=== PATIENT | female | born 1970 | race Caucasian/White ===

== ENCOUNTER 2023-04-18 08:59 | Emergency (ER) | payer OTHER, SELFPAY ==
[2023-04-18 09:14] VITALS: BP 165/95; PULSE 81; RESP 18; TEMP 37; O2SAT 97; BMI 35.7
--- NOTE | 2023-04-18 09:36 | ED_ITS ---
HPI - General Adult General Chief complaint: Extremity Injury, Lower Stated complaint: GOUT RT FOOT Time Seen by Provider: 04/18/23 09:36 Source: patient Mode of arrival: walk-in Limitations: no limitations History of Present Illness HPI narrative: Patient is coming to the ER with a right foot pain that started over the last few days as she mentioned that she have a history of gout denying any trauma or fall Related Data Home Medications Medication Instructions Recorded Confirmed albuterol sulfate 90 mcg/actuation 2 puff inhalation Q4H PRN wheezing 04/18/23 04/18/23 aerosol inhaler (Ventolin HFA) apixaban 5 mg tablet (Eliquis) 5 mg PO BID 04/18/23 04/18/23 celecoxib 200 mg capsule 200 mg PO Q24H 04/18/23 04/18/23 diltiazem HCl 240 mg 240 mg PO Q24H 04/18/23 04/18/23 capsule,extended release 24 hr dulaglutide 0.75 mg/0.5 mL 0.75 mg subcut .weekly 04/18/23 04/18/23 subcutaneous pen injector (Trulicity) ezetimibe 10 mg tablet 10 mg PO DAILY 04/18/23 04/18/23 ferrous sulfate 325 mg (65 mg 325 mg PO BID 04/18/23 04/18/23 iron) tablet fluticasone furoate 100 1 inh inhalation Q24H 04/18/23 04/18/23 mcg-vilanterol 25 mcg/dose inhalation powder (Breo Ellipta) furosemide 40 mg tablet 40 mg PO DAILY 04/18/23 04/18/23 isosorbide mononitrate 30 mg 30 mg PO DAILY 04/18/23 04/18/23 tablet,extended release 24 hr metformin 500 mg tablet 500 mg PO DAILY 04/18/23 04/18/23 pantoprazole 40 mg tablet,delayed 40 mg PO DAILY 04/18/23 04/18/23 release potassium chloride 20 mEq 20 meq PO BID 04/18/23 04/18/23 tablet,extended release rosuvastatin 5 mg tablet 5 mg PO DAILY 04/18/23 04/18/23 Previous Rx's Medication Instructions Recorded acetaminophen 325 mg capsule 650 mg PO .q8 PRN pain #20 caps 04/18/23 (Tylenol) prednisone 20 mg tablet 40 mg PO DAILY 3 days #6 tabs 04/18/23 Allergies Allergy/AdvReac Type Severity Reaction Status Date / Time morphine Allergy Intermediate Verified 04/18/23 09:21 Review of Systems ROS Status of ROS 10 or more systems reviewed and unremarkable except as noted in history and below [facility] Social History Smoking status: Former smoker Exam Narrative Exam Narrative: Nurses notes and vital signs reviewed and patient is not hypoxic. General: Well-appearing and in no apparent distress. Skin: Warm, dry, no pallor noted. No rash. Head: Normocephalic, atraumatic. Neck: Supple, non-tender. Eye: Pupils are equal, round and EOMI. No scleral icterus. Ears, Nose, Mouth, and Throat: TM are clear, no nasal mucosal hypertrophy. Oral mucosa is moist, no posterior oropharynx erythema, uvula is mid-line Cardiovascular: Regular Rate and Rhythm without murmur, gallop or rub. Respiratory: No accessory muscle use or respiratory distress. Lungs are clear to auscultation, no wheezing, rales or rhonchi Chest Wall: no tenderness Back: No midline thoracic or lumbar vertebral tenderness. No CVA tenderness Musculoskeletal: patient has tenderness upon palpation of the first metatarsophalangeal joint with mild swelling no redness no hotness no signs of infection GI: Abdomen is soft, non-distended. Normal bowel sounds. No masses appreciated. No tenderness to palpation. No rebound, guarding, or rigidity noted. Neurological: A&O x4. No cranial nerve dysfunction observed. No truncal ataxia. Moves all extremities. Sensation intact. Psychiatric: Cooperative and interactive. Normal mood and affect. Constitutional Vital Signs, click to edit/add: Last Vital Signs Temp 98.6 F 04/18/23 09:14 Pulse 76 04/18/23 09:48 Resp 16 04/18/23 09:48 BP 143/96 H 04/18/23 09:48 Pulse Ox 98 04/18/23 09:48 O2 Del Method Room Air 04/18/23 09:48 Course Vital Signs Vital signs: Vital Signs Temperature 98.6 F 04/18/23 09:14 Pulse Rate 81 04/18/23 09:14 Respiratory Rate 18 04/18/23 09:14 Blood Pressure 165/95 H 04/18/23 09:14 Pulse Oximetry 97 04/18/23 09:14 Oxygen Delivery Method Room Air 04/18/23 09:14 Temperature 98.6 F 04/18/23 09:14 Pulse Rate 76 04/18/23 09:48 Respiratory Rate 16 04/18/23 09:48 Blood Pressure 143/96 H 04/18/23 09:48 Pulse Oximetry 98 04/18/23 09:48 Oxygen Delivery Method Room Air 04/18/23 09:48 Medical Decision Making [facility] Narrative Medical decision making narrative: Presenting with a typical metatarsophalangeal joint first joint arthritis is mostly secondary to gout the patient will be treated in the ER with Toradol discharged home with prednisone and Tylenol The patient is to follow up with primary care physician in next 2-3 days or to return to the emergency department should any of the signs or symptoms worsen or new symptoms develop. The patient agrees with the following Diagnosis and Treatment plan and the patient will be discharged home. Discharge Plan Discharge Chief Complaint: Extremity Injury, Lower Clinical Impression: Gout of foot Patient Disposition: Home, Self-Care Time of Disposition Decision: 09:37 Condition: Good Prescriptions / Home Meds: New prednisone 20 mg tablet 40 mg PO DAILY 3 Days Qty: 6 0RF acetaminophen [Tylenol] 325 mg capsule 650 mg PO .q8 PRN (Reason: pain) Qty: 20 0RF No Action albuterol sulfate [Ventolin HFA] 90 mcg/actuation HFA aerosol inhaler 2 puff INHALATION Q4H PRN (Reason: wheezing) Eliquis 5 mg tablet 5 mg PO BID celecoxib 200 mg capsule 200 mg PO Q24H diltiazem HCl 240 mg capsule,extended release 24hr 240 mg PO Q24H Trulicity 0.75 mg/0.5 mL pen injector 0.75 mg SUBCUT .weekly ezetimibe 10 mg tablet 10 mg PO DAILY ferrous sulfate 325 mg (65 mg iron) tablet 325 mg PO BID fluticasone furoate-vilanterol [Breo Ellipta] 100-25 mcg/dose blister with device 1 inh INHALATION Q24H furosemide 40 mg tablet 40 mg PO DAILY isosorbide mononitrate 30 mg tablet extended release 24 hr 30 mg PO DAILY metformin 500 mg tablet 500 mg PO DAILY pantoprazole 40 mg tablet,delayed release (DR/EC) 40 mg PO DAILY potassium chloride 20 mEq tablet extended release 20 meq PO BID rosuvastatin 5 mg tablet 5 mg PO DAILY Instructions: Gout (ED) Stand Alone Forms: Portal Instructions Referrals: Xavi Ann MD [Primary Care Provider] - 1 week Apolinar Mejia DPM [Physician] - 1 week Discharge Date/Time: 04/18/23 09:50
[2023-04-18] MEDS: KETOROLAC TROMETHAMINE 30 MG/ML VIAL IM (09:45)
[2023-04-18 09:48] VITALS: BP 143/96; PULSE 76; RESP 16; O2SAT 98
== END 2023-04-18 09:50 | disposition home or self-care (01) ==
PROVIDERS: Emergency Provider Emergency Medicine; PCP Family Medicine
DX: M10.9 Gout, unspecified (principal); Z79.899 Other long term (current) drug therapy; Z79.01 Long term (current) use of anticoagulants; Z79.85 Long-term (current) use of injectable non-insulin antidiabetic drugs; Z79.84 Long term (current) use of oral hypoglycemic drugs; Z87.891 Personal history of nicotine dependence
CPT/HCPCS: 96372; 99284

== ENCOUNTER 2023-04-28 22:19 | Emergency (ER) | payer OTHER, SELFPAY ==
[2023-04-28 22:22] VITALS: BP 138/71; PULSE 68; RESP 18; TEMP 36.7; O2SAT 97; BMI 35.7
[2023-04-28 22:25] VITALS: PULSE 69; RESP 9
[2023-04-28 22:27] VITALS: BP 138/71; PULSE 66; RESP 18; O2SAT 96
[2023-04-28 22:30] VITALS: PULSE 68; RESP 16; O2SAT 97
[2023-04-28 22:33] VITALS: PULSE 89; RESP 14
[2023-04-28 22:34] VITALS: PULSE 68
--- NOTE | 2023-04-28 22:34 | CT_ITS ---
The [address] [address] Patient Name: LEIGHANN TALAMANTES MRN: [id number] date: 1970 Sex: F Assigned Patient Location: ER Current Patient Location: ER Accession/Order Number: [id number] Exam Date: 04/28/2023 22:48 Report Date: 04/28/2023 23:08 At the request of: VICENTE MARKER Procedure: CT head/brain wo con EXAM: CT head/brain wo con HISTORY: dizziness COMPARISON: CT brain 08/09/2022 TECHNIQUE: Axial CT scans through the head were obtained without IV contrast administration. Dose reduction techniques were achieved by using: automated exposure control and/or adjustment of mA and /or kV according to patient size and/or use of iterative reconstruction technique. FINDINGS: There is no evidence of acute intracranial hemorrhage or abnormal extra-axial fluid collection. No mass effect or midline shift is seen. There is no evidence of large acute territorial infarction. There is no hydrocephalus. The cortical sulci and ventricular system are within normal limits for age. To the limit of CT, the posterior fossa appears unremarkable. No definite acute fracture is identified. Soft tissues are unremarkable. The visualized orbits show no abnormal mass. The visualized paranasal sinuses show no air-fluid level. Mastoid air cells are clear. CT/CT head/brain wo con IMPRESSION: No CT evidence of acute intracranial abnormality. If there is sufficient clinical concern for acute brain parenchymal pathology, consider MRI for further evaluation. Electronically authenticated by: NAZANIN BROOKS Date: 04/28/2023 23:08
--- NOTE | 2023-04-28 22:36 | ECG_ITS ---
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
--- NOTE | 2023-04-28 22:38 | PC.NURSE ---
Pt presents to ER for dizziness and vertigo type feelings Pt states with movement the room is spinning Pt states she believes her BP is elvated or maybe she has a heart problem Pt states she has a history of a-fib and currently has a loop recorder placed
--- NOTE | 2023-04-28 22:41 | ED.DIZZY1 ---
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 Juan grey for evaluation of dizziness that has been ongoing for the past 3 days. She states at times she feels like she is going to fall. She has a sensation that the room is spinning. Symptoms are worse with any movement of her head or body. She states she has almost fallen several times but has cut herself and has not fallen. She denies any chest pain or shortness of breath. She states she took her blood pressure at home and it was elevated which prompted her to come to the emergency department. She has a mild frontal headache. She has not had a fever. She denies any abdominal pain but does have some mild nausea associated with her dizziness. She states she feels like she felt when she was on a cruise ship and had motion sickness. Related Data Home Medications Medication Instructions Recorded Confirmed albuterol sulfate 90 mcg/actuation 2 puff inhalation Q4H PRN wheezing 04/18/23 04/18/23 aerosol inhaler (Ventolin HFA) apixaban 5 mg tablet (Eliquis) 5 mg PO BID 04/18/23 04/18/23 celecoxib 200 mg capsule 200 mg PO Q24H 04/18/23 04/18/23 diltiazem HCl 240 mg 240 mg PO Q24H 04/18/23 04/18/23 capsule,extended release 24 hr dulaglutide 0.75 mg/0.5 mL 0.75 mg subcut .weekly 04/18/23 04/18/23 [facility] ezetimibe 10 mg tablet 10 mg PO DAILY 04/18/23 04/18/23 ferrous sulfate 325 mg (65 mg 325 mg PO BID 04/18/23 04/18/23 iron) tablet fluticasone furoate 100 1 inh inhalation Q24H 04/18/23 04/18/23 mcg-vilanterol 25 mcg/dose inhalation powder (Breo Ellipta) furosemide 40 mg tablet 40 mg PO DAILY 04/18/23 04/18/23 isosorbide mononitrate 30 mg 30 mg PO DAILY 04/18/23 04/18/23 tablet,extended release 24 hr metformin 500 mg tablet 500 mg PO DAILY 04/18/23 04/18/23 pantoprazole 40 mg tablet,delayed 40 mg PO DAILY 04/18/23 04/18/23 release potassium chloride 20 mEq 20 meq PO BID 04/18/23 04/18/23 tablet,extended release rosuvastatin 5 mg tablet 5 mg PO DAILY 04/18/23 04/18/23 metoprolol succinate 25 mg mg PO 04/28/23 tablet,extended release 24 hr Previous Rx's Medication Instructions Recorded acetaminophen 325 mg capsule 650 mg PO .q8 PRN pain #20 caps 04/18/23 (Tylenol) prednisone 20 mg tablet 40 mg PO DAILY 3 days #6 tabs 04/18/23 Allergies Allergy/AdvReac Type Severity Reaction Status Date / Time morphine Allergy Intermediate Verified 04/18/23 09:21 Review of Systems ROS Status of ROS 10 or more systems reviewed and unremarkable except as noted in history and below [facility] Social History Smoking status: Former smoker Exam Narrative Exam Narrative: Nurses note and vital signs reviewed and patient is not hypoxic. Blood pressure was minimally elevated at 138/71 General: The patient appears well and in no apparent distress. Patient is resting comfortably on cart. Skin: Warm, dry, no pallor noted. There is no rash noted. Head: Normocephalic, atraumatic Eye: Normal conjunctiva, no drainage, EOMI. PERRL, Patient with episode of dizziness with extraocular muscle testing Ears, Nose, Mouth, and Throat: oral mucosa is moist. Nares patent. Mouth without vesicles. edentulous Cardiovascular: Regular Rate and Rhythm S1S2, no murmur, rub or gallop Respiratory: Patient is in no distress, no accessory muscle use, lungs are clear to auscultation, no wheezing, rales or rhonchi Back: non-tender, no CVA tenderness bilaterally to percussion. GI: Normal bowel sounds, no tenderness to palpation, no masses appreciated. No rebound, guarding, or rigidity noted. Musculoskeletal: The patient has no evidence of calf tenderness, no pitting edema, symmetrical pulses noted bilaterally Neurological: A&O x4, normal speech, no facial droop, short filler bunch machine operator strength is intact, negative pronator drift, normal rapid alternating hand movements, upper and lower extremity strength and sensation is intact Psychiatric: Cooperative Constitutional Vital Signs, click to edit/add: Last Vital Signs Temp 98.1 F 04/28/23 22:22 Pulse 89 04/28/23 22:33 Resp 14 04/28/23 22:33 BP 125/68 04/29/23 04:10 Pulse Ox 97 04/28/23 22:30 O2 Del Method Room Air 04/28/23 22:22 Course Vital Signs Vital signs: Vital Signs Temperature 98.1 F 04/28/23 22:22 Pulse Rate 68 04/28/23 22:22 Respiratory Rate 18 04/28/23 22:22 Blood Pressure 138/71 04/28/23 22:22 Pulse Oximetry 97 04/28/23 22:22 Oxygen Delivery Method Room Air 04/28/23 22:22 Temperature 98.1 F 04/28/23 22:22 Pulse Rate 89 04/28/23 22:33 Respiratory Rate 14 04/28/23 22:33 Blood Pressure 125/68 04/29/23 04:10 Pulse Oximetry 97 04/28/23 22:30 Oxygen Delivery Method Room Air 04/28/23 22:22 MDM - Dizziness MDM Narrative Medical decision making narrative: This 52-year-old female with a history of hypertension, DM, heart disease who currently has a loop recorder presents for evaluation of 3 days of dizziness that she describes as room spinning with nausea. She has not fallen but states she has had to hold on several times to keep herself from falling. She has no chest pain or shortness of breath. She has no neurologic symptoms. She had provocative symptoms of vertigo with extraocular muscle testing and when she sat up. The patient states that she feels like she felt when she was on a cruise ship and had motion sickness. Due to her comorbidities a CT scan of her brain was ordered. This was negative.EKG done upon arrival was a normal sinus rhythm at 62 bpm. No acute changes are noted. The patient stated that she had taken her blood pressure at home and it was very high however in the emergency department it was not significantly elevated. An IV was placed and she was medicated with IV fluids, 4 mg of Zofran, 25 mg of meclizine and 5 mg of oral Valium. Routine labs are reviewed. She has a normal white count and hemoglobin. Her electrolytes are normal. Her initial troponin was elevated at 57. Again she denied any chest pain or shortness of breath. Delta troponin at 3 hours was decreased at 50.2, Likely indicating her dizziness is not cardiac in nature. The patient slept for several hours in emergency department and was monitored while asleep. There was no cardiac arrhythmias noted. The patient woke up and was able to nataly to the bathroom twice and the 2nd time stated that she was feeling better and wished to be discharged home. I discussed the results of her labs and CT scan with her. She verbalizes understanding. She will be discharged home with a prescription for meclizine and Zofran. I encouraged her to drink plenty of fluids, rest, use the medications as needed and return to emergency department as needed for ongoing or worsening symptoms. Lab Data Labs: Lab Results 04/28/23 04/29/23 Range/Units 22:30 01:14 WBC 10.1 (4.0-11.0) 10^3/uL RBC 4.59 (4.20-5.40) 10^6/uL Hgb 13.9 (12.0-16.0) g/dL Hct 43.1 (36.0-48.0) % MCV 93.9 (81.0-99.0) fL MCH 30.3 (26.7-34.0) pg MCHC 32.3 (29.9-35.2) g/dL RDW 13.5 (11.0-15.0) % Plt Count 306 (150-450) 10^3/uL MPV 10.3 (9.5-13.5) fL Neut % (Auto) 55.8 (43.0-75.0) % Lymph % (Auto) 34.3 (20.5-60.0) % Davison % (Auto) 8.1 (1.7-12.0) % Eos % (Auto) 0.8 L (0.9-7.0) % Baso % (Auto) 0.5 (0.2-2.0) % Neut # (Auto) 5.7 (1.4-6.5) 10^3/uL Lymph # (Auto) 3.5 (1.2-3.8) 10^3/uL Davison # (Auto) 0.8 (0.3-0.8) 10^3/uL Eos # (Auto) 0.1 (0.0-0.7) 10^3/uL Baso # (Auto) 0.1 (0.0-0.1) 10^3/uL Abs Immat Gran (auto) 0.05 H (0.00-0.03) 10^3/uL Imm/Tot Granulo (auto) 0.5 (0.0-0.5) % Sodium 135 L (136-145) mmol/L Potassium 4.0 (3.5-5.1) mmol/L Chloride 100 (98-107) mmol/L Carbon Dioxide 25.8 (21.0-32.0) mmol/L Anion Gap 13.2 BUN 26.0 H (7.0-18.0) mg/dL Creatinine 0.83 (0.55-1.02) mg/dL Est GFR ( Amer) >60 (>=60) Est GFR (Non-Af Amer) >60 (>=60) BUN/Creatinine Ratio 31.3 Glucose 115 H (74-106) mg/dL Calcium 8.8 (8.5-10.1) mg/dL Total Bilirubin 0.7 (0.2-1.0) mg/dL AST 21 (15-37) U/L ALT 31 (14-59) U/L Alkaline Phosphatase 142 H (46-116) U/L Troponin I High Sens 54.7 H* 50.2 (4.0-51.3) pg/mL Total Protein 7.9 (6.4-8.2) g/dL Albumin 3.7 (3.4-5.0) g/dL Globulin 4.2 g/dL Albumin/Globulin Ratio 0.9 ECG Data Attestation: I personally reviewed and interpreted this ECG as follows: (Sinus rhythm at 62 beats per minutes, normal axis, RSR pattern in lead 3 and aVF, Q wave in V1 and V2 and V3, no acute ST segment elevation or T-wave inversion) Discharge Plan Discharge Chief Complaint: Dizziness Clinical Impression: Benign paroxysmal positional vertigo Patient Disposition: Home, Self-Care Time of Disposition Decision: 04:12 Condition: Good Prescriptions / Home Meds: No Action albuterol sulfate [Ventolin HFA] 90 mcg/actuation HFA aerosol inhaler 2 puff INHALATION Q4H PRN (Reason: wheezing) Eliquis 5 mg tablet 5 mg PO BID celecoxib 200 mg capsule 200 mg PO Q24H diltiazem HCl 240 mg capsule,extended release 24hr 240 mg PO Q24H Trulicity 0.75 mg/0.5 mL pen injector 0.75 mg SUBCUT .weekly ezetimibe 10 mg tablet 10 mg PO DAILY ferrous sulfate 325 mg (65 mg iron) tablet 325 mg PO BID fluticasone furoate-vilanterol [Breo Ellipta] 100-25 mcg/dose blister with device 1 inh INHALATION Q24H furosemide 40 mg tablet 40 mg PO DAILY isosorbide mononitrate 30 mg tablet extended release 24 hr 30 mg PO DAILY metformin 500 mg tablet 500 mg PO DAILY pantoprazole 40 mg tablet,delayed release (DR/EC) 40 mg PO DAILY potassium chloride 20 mEq tablet extended release 20 meq PO BID rosuvastatin 5 mg tablet 5 mg PO DAILY prednisone 20 mg tablet 40 mg PO DAILY 3 Days Qty: 6 0RF acetaminophen [Tylenol] 325 mg capsule 650 mg PO .q8 PRN (Reason: pain) Qty: 20 0RF metoprolol succinate 25 mg tablet extended release 24 hr PO Instructions: Vertigo (ED), Benign Paroxysmal Positional Vertigo (ED), Dizziness (ED) Stand Alone Forms: Portal Instructions Referrals: Xavi Ann MD [Primary Care Provider] - 1 week
[2023-04-28 22:47] LABS: Basophils Absolute Auto 0.1 10^3/uL (0.0-0.1); Basophils Percent Auto 0.5 % (0.2-2.0); Eosinophils Absolute Auto 0.1 10^3/uL (0.0-0.7); Eosinophils Percent Auto 0.8 % (0.9-7.0); Hematocrit 43.1 % (36.0-48.0); Hemoglobin 13.9 g/dL (12.0-16.0); Immature Granulocytes Abs Auto 0.05 10^3/uL (0.00-0.03); Immature Granulocytes Pct Auto 0.5 % (0.0-0.5); Lymphocytes Absolute Auto 3.5 10^3/uL (1.2-3.8); Lymphocytes Percent Auto 34.3 % (20.5-60.0); Mean Corpuscular HGB Conc 32.3 g/dL (29.9-35.2); Mean Corpuscular Hemoglobin 30.3 pg (26.7-34.0); Mean Corpuscular Volume 93.9 fL (81.0-99.0); Mean Platelet Volume 10.3 fL (9.5-13.5); Monocytes Absolute Auto 0.8 10^3/uL (0.3-0.8); Monocytes Percent Auto 8.1 % (1.7-12.0); Neutrophils Absolute Auto 5.7 10^3/uL (1.4-6.5); Neutrophils Percent Auto 55.8 % (43.0-75.0); Platelet Count 306 10^3/uL (150-450); Red Blood Count 4.59 10^6/uL (4.20-5.40); Red Cell Distribution Width 13.5 % (11.0-15.0); White Blood Count 10.1 10^3/uL (4.0-11.0)
[2023-04-28] MEDS: ONDANSETRON PF 4 MG/2 ML VIAL IV (23:05)
[2023-04-28] MEDS: MECLIZINE HCL 12.5 MG TABLET 25 MG PO (23:05)
[2023-04-28] MEDS: 0.9 % SODIUM CHLORIDE 1,000 ML 1000 ML IV (23:05)
[2023-04-28] MEDS: DIAZEPAM 5 MG/ML - 2 ML INJ SYRINGE IV (23:06)
[2023-04-28 23:09] LABS: Alanine Aminotransferase 31 U/L (14-59); Albumin Globulin Ratio 0.9; Albumin Level 3.7 g/dL (3.4-5.0); Alkaline Phosphatase 142 U/L (46-116); Anion Gap 13.2; Aspartate Amino Transferase 21 U/L (15-37); BUN Creatinine Ratio 31.3; Bilirubin Total 0.7 mg/dL (0.2-1.0); Calcium 8.8 mg/dL (8.5-10.1); Carbon Dioxide 25.8 mmol/L (21.0-32.0); Chloride 100 mmol/L (98-107); Estimated GFR (African America >60 (>=60); Estimated GFR (Non-African Ame >60 (>=60); Globulin 4.2 g/dL; Glucose 115 mg/dL (74-106); Sodium 135 mmol/L (136-145); Total Protein 7.9 g/dL (6.4-8.2)
[2023-04-28 23:10] LABS: Troponin I High Sensitivity 54.7 pg/mL (4.0-51.3)
[2023-04-29] MEDS: 0.9 % SODIUM CHLORIDE 1,000 ML 125 ML IV (01:17)
[2023-04-29] MEDS: KETOROLAC TROMETHAMINE 30 MG/ML VIAL 15 MG IVP (01:17)
[2023-04-29 01:36] LABS: Troponin I High Sensitivity 50.2 pg/mL (4.0-51.3)
[2023-04-29 04:10] VITALS: BP 125/68
== END 2023-04-29 04:27 | disposition home or self-care (01) ==
PROVIDERS: Emergency Provider Emergency Medicine; PCP Family Medicine
DX: H81.10 Benign paroxysmal vertigo, unspecified ear (principal); I11.9 Hypertensive heart disease without heart failure; E11.9 Type 2 diabetes mellitus without complications; Z79.899 Other long term (current) drug therapy; Z79.01 Long term (current) use of anticoagulants; Z79.85 Long-term (current) use of injectable non-insulin antidiabetic drugs; Z79.84 Long term (current) use of oral hypoglycemic drugs; Z87.891 Personal history of nicotine dependence
CPT/HCPCS: 36415; 70450; 80053; 84484; 85025; 93005; 96361; 96374; 96375; 99285

== ENCOUNTER 2023-05-05 08:17 | Outpatient (OUT) | payer OTHER, SELFPAY ==
[2023-05-05 08:59] LABS: Chol HDL Ratio 4.9; Cholesterol 204 mg/dL (<=200); HDL Cholesterol 42 mg/dL (40-60); Triglycerides 357 mg/dL (<=150); VLDL CHOLESTEROL 71.4 mg/dL
== END 2023-05-05 08:18 | disposition home or self-care (01) ==
LOC: LAB 08:19
PROVIDERS: PCP Family Medicine; Visit Provider Nurse Practitioner
DX: E78.2 Mixed hyperlipidemia (principal)
CPT/HCPCS: 36415; 80061

== ENCOUNTER 2023-08-12 12:00 | Outpatient (REF) | payer OTHER, SELFPAY ==
--- OUTSIDE RECORDS SUMMARY | 2023-08-12 12:04 | XMS_ITS | CCD ---
Author Name Unknown Address [address] [place] [address] Organization [facility] Care Team Providers Care Agriculture Professor Name Role Phone CASSY BEAR Admitting Unavailable CASSY BEAR Attending Unavailable PHILLIP ANN Referring Unavailable PHILLIP ANN Primary Care Unavailable PHILLIP ANN Referring Unavailable XIAO TORRES Surgeon Unavailable ORLIN HUI Attending Unavailable CALLI PAIGE Admitting Unavailable RI Procedure Practitioner Unavailab PHILLIP Muñoz Primary Care Unavailable RI Procedure Practitioner Unavailab Dunia Light Surgeon Unavailabl e Phillip Ann Primary Care Physician Juan Miguel SALINAS Attending Unavailable Phillip nAn Referring Unavailable Juan Miguel SALINAS Attending Unavailable Phillip Ann Referring Unavailable SETH ., DR FISHER Primary Care Unavailable HOY ., DR FISHER Consulting Unavailable HOY ., DR FISHER Admitting Unavailable HOY ., DR FISHER Attending Unavailable HOY ., DR FISHER Attending Unavailable HOY ., DR FISHER Primary Care Unavailable HOY ., DR FISHER Consulting Unavailable HOY ., DR FISHER Admitting Unavailable HOY ., DR FISHER Primary Care Unavailable DIANA ANDINO Consulting Unavailable DIANA ANDINO Admitting Unavailable DIANA ANDINO Attending Unavailable ALANY ., DR FISHER Primary Care Unavailable DIANA ANDINO Consulting Unavailable DIANA ANDINO Attending Unavailable DIANA ANDINO Admitting Unavailable HOY ., DR FISHER Primary Care Unavailable HOY ., DR FISHER Consulting Unavailable HOY ., DR FISHER Admitting Unavailable HOY ., DR FISHER Attending Unavailable HOY ., DR FISHER Primary Care Unavailable NILL ., DR PATRICK Consulting Unavailable NILL ., DR PATRICK Attending Unavailable NILL ., DR PATRICK Admitting Unavailable DIAB ., FABRICIO Attending Unavailable HOY ., DR FISHER Primary Care Unavailable FALVO, HELLEN Consulting Unavailable DIAB ., FABRICIO Admitting Unavailable J LUIS, MARY Consulting Unavailable DIAB ., FABRICIO Consulting Unavailable HOY ., DR FISHER Primary Care Unavailable PAY ., DR SOTO Attending Unavailable GRECHNY ., DELANEY MONTERO Consulting Unavailabl e PAY ., DR SOTO Admitting Unavailable GAIL PELLETIER Consulting Unavailable TREVNI ., EMILY Attending Unavailable TREVIN ., EMILY Admitting Unavailable HOY ., DR FISHER Primary Care Unavailable TREVIN ., EMILY Consulting Unavailable AUDREY BO Consulting Unavailable HOY ., DR FISHER Attending Unavailable HOY ., DR FISHER Primary Care Unavailable HOY ., DR FISHER Consulting Unavailable HOY ., DR FISHER Admitting Unavailable ZIEBER, DR JEAN Ortiz Consulting Unavailable HOY ., DR FISHER Attending Unavailable HOY ., DR FISHER Primary Care Unavailable HOY ., DR FISHER Consulting Unavailable HOY ., DR FISHER Admitting Unavailable HOY ., DR FISHER Attending Unavailable HOY ., DR FISHER Primary Care Unavailable HOY ., DR FISHER Consulting Unavailable HOY ., DR FISHER Admitting Unavailable ZIEBER, DR JEAN Ortiz Consulting Unavailable HOY ., DR FISHER Attending Unavailable HOY ., DR FISHER Primary Care Unavailable HOY ., DR FISHER Consulting Unavailable HOY ., DR FISHER Admitting Unavailable WEST, DR VIVI Wyman Consulting Unavailable STACY VILLALTA Attending Unavailable STACY VILLALTA Attending Unavailable CURTIS MARTINEZ Attending Unavailable CURTIS MARTINEZ Referring Unavailable CURTIS MARTINEZ Referring Unavailable Allergies Allergy Classification Reported Allergen(s) Allergy Type Date of Onset Reaction(s) Facility (4 sources) Morphine; Translations: [morphine] Drug Allergy 9 [facility] Repository (1 source) 85704,00; Translations: [26579,00] Propensity to adverse reactions (disorder) 0 [facility] Rep[facility] (1 source) Morphine; Translations: [morphine] Drug Allergy Feeling nervous (finding), Tachycardia (finding) [facility] (1 source) No Known Medication Allergies; Translations: [No Known Medication Allergies] Propensity to adverse reactions (disorder) [facility] Repository (1 source) dulaglutide; Translations: [DULAGLUTIDE] Drug Allergy 3 [facility] Repository Medications Current Medications Medication Drug Class(es) Dates Sig (Normalized) Sig (Original) [id number] 200 actuat albuterol 0.09 mg/actuat metered dose inhaler (2 sources) beta2-Adrenergic Agonist Start: 08-19-2021 take 2 puff(s) by inhalation once for wheezing Pro-Air HFA CFC free 90 mcg/inh MDI 2 puff(s), Inhalation, Once for wheezing, 8.5 gram, Refill(s) 0 Start Date: 08/19/21 Status: Ordered Start: 08-19-2021 take 2.5 mg by inhal ation once daily albuterol 0.083% Inh Valeria 3 mL 2.5 mg, 3 mL, NEB, Daily, Refill(s) 0 Start Date: 08/19/21 Status: Ordered apixaban 5 mg oral tablet (1 source) Factor Xa Inhibitor Start: 08-19-2021 take 1 tablet by mouth twice daily Eliquis 5 mg oral tablet 5 mg = 1 tab(s), Oral, BID, Refills(s) 0 Start Date: 08/19/21 Status: Ordered DilTIAZem (Eqv-Cardizem CD) 240 mg/24 hours oral capsule, extended release (1 source) Start: 08-19-2021 DilTIAZem (Eqv-Cardizem CD) 240 mg/24 hours oral capsule, extended release 240 mg = 1 cap(s), Oral, Daily, Refills(s) 0 Start Date: 08/19/21 Status: Ordered Pepcid (1 source) Histamine-2 Receptor Antagonist Start: 09-14-2022 Pepcid Refills(s) 0 Start Date: 09/14/22 Status: Ordered ferrous sulfate 325 mg oral tablet (1 source) Start: 09-03-2022 take 1 tablet by mouth twice daily ferrous sulfate 325 mg Tab 325 mg = 1 tab(s), Oral, BID, Refills(s) 0 Start Date: 09/03/22 Status: Ordered furosemide 40 mg oral tablet (1 source) Loop Diuretic Start: 08-19-2021 take 1 tablet by mouth twice daily furosemide 40 mg Tab 40 mg = 1 tab(s), Oral, BID, Refills(s) 0 Start Date: 08/19/21 Status: Ordered hyoscyamine sulfate 0.125 mg oral tablet (1 source) Start: 09-03-2022 take 1 tablet by mouth four times daily as needed Levsin 0.125 mg SL Tab 0.125 mg = 1 tab(s), Oral, QID, PRN cramping, Refills(s) 0 Start Date: 09/03/22 Status: Ordered 24 hr isosorbide mononitrate 30 mg extended release oral tablet (1 source) Nitrate Vasodilator Start: 08-19-2021 take 1 tablet by mouth once daily in the morning isosorbide mononitrate 30 mg ER Tab 30 mg = 1 tab(s), Oral, qAM, Refills(s) 0 Start Date: 08/19/21 Status: Ordered metFORMIN hydrochloride 500 mg oral tablet (1 source) Biguanide Start: 09-03-2022 take 1 tablet by mouth twice daily metformin 500 mg Tab 500 mg = 1 tab(s), Oral, BID, Refills(s) 0 Start Date: 09/03/22 Status: Ordered metoprolol tartrate 50 mg oral tablet (1 source) beta-Adrenergic Cecil Start: 08-19-2021 take 1 tablet by mouth once daily Metoprolol succinate 50 mg ER Tablet 50 mg, Oral, Daily, Refills(s) 0 Start Date: 08/19/21 Status: Ordered pantoprazole 40 mg delayed release oral tablet (1 source) Proton Pump Inhibitor Start: 08-19-2021 take 1 tablet by mouth once daily Pantoprazole [address] Tab 40 mg = 1 tab(s), Oral, Daily, Refills(s) 0 Start Date: 08/19/21 Status: Ordered 0.25 mg, 0.5 mg dose 1.5 ml semaglutide 1.34 mg/ml pen injector (1 source) Start: 09-03-2022 Ozempic 2 mg/1.5 mL (0.25 mg or 0.5 mg dose) subcutaneous solution Refill(s) 0, as directed Start Date: 09/03/22 Status: Ordered Completed/Discontinued Medications Medication Drug Class(es) Dates Sig (Normalized) Sig (Original) potassium chloride 20 meq extended release oral tablet (1 source) Start: 09-03-2022 take 1 tablet by mouth twice daily potassium chloride 20 mEq ER Tab 20 mEq = 1 tab(s), Oral, BID, Refills(s) 0 Start Date: 09/03/22 Status: Ordered Problems Active Problems Problem Classification Problem Date Documented Da te Episodic/Chronic Abdominal pain (10 sources) Right upper quadrant pain; Translations: [Right upper quadrant pain] Onset: 08-09-2022 09-03-2022 Episodic Asthma (1 source) Unspecified asthma, uncomplicated; Translations: [UNSPECIFIED ASTHMA UNCOMPLICATED] Onset: 10-30-2022 Chronic Biliary tract disease (5 sources) Calculus of gallbladder without cholecystitis without obstruction; Translations: [CALCU GB W/O CHOLECYST W/O OBST] Onset: 08-13-2022 Episodic Cardiac dysrhythmias (7 sources) Atrial flutter; Translations: [Paroxysmal atrial fibrillation] Onset: 08-11-2022 09-03-2022 Chronic Chronic obstructive pulmonary disease and bronchiectasis (3 sources) Chronic obstructive lung disease; Translations: [Chronic obstructive pulmonary disease with (acute) lower respiratory infection] Onset: 11-19-2022 09-03-2022 Chronic Conduction disorders (2 sources) Encounter for adjustment and management of automatic implantable cardiac defibrillator; Translations: [Encounter for adjustment and management of automatic implantable cardiac defibrillator] Onset: 08-11-2022 Chronic Congestive heart failure; nonhypertensive (1 source) Chronic diastolic heart failure 09-03-2022 Chronic Coronary atherosclerosis and other heart disease (1 source) Atherosclerotic heart disease of [place] coronary artery without angina pectoris; Translations: [ASHD LYTTON CA W/O ANGINA PECTORIS] Onset: 08-11-2022 Chronic Diabetes mellitus without complication (2 sources) Diabetes mellitus; Translations: [Type 2 diabetes mellitus without complications] Onset: 11-19-2022 09-03-2022 Chronic Diabetes mellitus without complication (1 source) Hyperglycemia, unspecified; Translations: [HYPERGLYCEMIA UNSPECIFIED] Onset: 09-13-2022 Episodic Disorders of lipid metabolism (9 sources) Pure hypercholesterolemia; Translations: [Pure hypercholesterolemia, unspecified] Onset: 09-09-2022 09-03-2022 Chronic Diverticulosis and diverticulitis (1 source) Diverticular disease 09-03-2022 Chronic Essential hypertension (2 sources) Hypertensive disorder; Translations: [Essential (primary) hypertension] Onset: 11-19-2022 09-03-2022 Chronic Gout and other crystal arthropathies (2 sources) Gout; Translations: [Gout, unspecified] Onset: 10-30-2022 09-03-2022 Chronic Headache; including migraine (2 sources) Migraine; Translations: [Tension-type headache, unspecified, not intractable] Onset: 08-11-2022 09-03-2022 Chronic Headache; including migraine (1 source) Headache; including migraine; Translations: [HEADACHE UNSPECIFIED] Onset: 11-19-2022 Malaise and fatigue (1 source) Other fatigue; Translations: [OTHER FATIGUE] Onset: 09-13-2022 Episodic Mood disorders (1 source) Depressive disorder 09-03-2022 Chronic Nonmalignant breast conditions (1 source) Fibrocystic disease of breast 09-03-2022 Chronic Nutritional deficiencies (1 source) Vitamin D deficiency, unspecified; Translations: [VITAMIN D DEFICIENCY UNSPECIFIED] Onset: 09-13-2022 Chronic Other aftercare (1 source) FDC (current) use of anticoagulants; Translations: [SHELTER CURRNT USE ANTICOAGULANTS] Onset: 11-19-2022 Episodic Other aftercare (1 source) Other retirement (current) drug therapy; Translations: [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 DRUG THERAPY] Onset: 11-19-2022 Episodic Other aftercare (1 source) FDC (current) use of oral hypoglycemic drugs; Translations: [OTR REFRIGERATED CDL TRUCK DRIVER USE ORAL HYPOGLYCEMIC DX] Onset: 11-19-2022 Episodic Other circulatory disease (1 source) History of pericarditis 09-03-2022 Episodic Other connective tissue disease (3 sources) Pain in right toe(s); Translations: [PAIN IN RIGHT TOES] Onset: 10-28-2022 Episodic Other diseases of kidney and ureters (1 source) Cyst of kidney 09-03-2022 Episodic Other gastrointestinal disorders (1 source) Irritable bowel syndrome 09-03-2022 Chronic Other nutritional; endocrine; and metabolic disorders (1 source) Body mass index 30+ - obesity 09-15-2022 Chronic Other screening for suspected conditions (not mental disorders or infectious disease) (1 source) Encounter for screening for malignant neoplasm of rectum; Translations: [ENC SCREEN MALIG NEOPLASM RECTUM] Onset: 09-13-2022 Episodic Other upper respiratory infections (5 sources) Acute upper respiratory infection, unspecified; Translations: [Acute sinusitis, unspecified] Onset: 09-24-2022 Episodic Shannon-; endo-; and myocarditis; cardiomyopathy (except that caused by tuberculosis or sexually transmitted disease) (1 source) Pericardial effusion 09-03-2022 Episodic Pulmonary heart disease (1 source) Pulmonary hypertension 09-03-2022 Chronic Residual codes; unclassified (1 source) Obstructive sleep apnea syndrome 09-03-2022 Chronic Residual codes; unclassified (1 source) Sleep apnea, unspecified; Translations: [SLEEP APNEA UNSPECIFIED] Onset: 11-19-2022 Chronic Residual codes; unclassified (1 source) Insomnia 09-03-2022 Episodic Screening and history of mental health and substance abuse codes (1 source) Personal history of nicotine dependence; Translations: [PERSONAL HISTORY OF NICOTINE DEPEND] Onset: 11-19-2022 Episodic Spondylosis; intervertebral disc disorders; other back problems (1 source) Cervical disc disorder 09-03-2022 Chronic Spondylosis; intervertebral disc disorders; other back problems (1 source) Low back pain 09-03-2022 Episodic Unclassified (1 source) Mild aortic valve stenosis 09-03-2022 Unclassified (1 source) PERSONAL HISTORY OF COVID-19; Translations: [PERSONAL HISTORY OF COVID-19] Onset: 11-19-2022 Unclassified (3 sources) COUGH, UNSPECIFIED; Translations: [COUGH, UNSPECIFIED] Onset: 07-18-2022 Unclassified (4 sources) CONTACT W/AND (SUSP) EXPOS COVID-19; Translations: [CONTACT W/AND (SUSP) EXPOS COVID-19] Onset: 07-18-2022 Past or Other Problems Problem Classification Problem Date Documented Da te Episodic/Chronic Gastritis and duodenitis (1 source) Gastritis, unspecified, without bleeding; Translations: [GASTRITIS UNS WITHOUT BLEEDING] Onset: 08-11-2022 Episodic Other lower respiratory disease (1 source) Personal history of pneumonia (recurrent); Translations: [PERSONAL HX OF PNEUMONIA RECURRENT] Onset: 08-11-2022 Episodic Other upper respiratory disease (1 source) Nasal congestion; Translations: [NASAL CONGESTION] Onset: 07-18-2022 Episodic Unclassified (1 source) COUGH, UNSPECIFIED; Translations: [COUGH, UNSPECIFIED] Onset: 11-17-2022 Unclassified (1 source) CONTACT W/AND (SUSP) EXPOS COVID-19; Translations: [CONTACT W/AND (SUSP) EXPOS COVID-19] Onset: 07-16-2022 Results Test Name Value Interpretation Reference Range Facility Office Visiton 05-05-2023 Follow-up visit [id number] Cyndi Alvarez S 1970 F Date Provider Department Center 05/05/2023 STACY RODRIGUEZ [facility] Family History Problem Relation Age of Onset Breast cancer Mother Aneurysm Mother Stroke Mother Heart attack Father Coronary artery disease Father Family Status - Relation Status Age at Mother Father Level of Service:58973 RI OFFICE/OUTPATIENT ESTABLISHED MOD MDM 30-39 MIN Normal [facility] Office Visiton 01-27-2023 Follow-up visit [id number] Cyndi Alvarez Brodie 1970 F Date Provider Department Center 01/27/2023 STACY RODRIGUEZ [facility] Family History Problem Relation Age of Onset Breast cancer Mother Aneurysm Mother Stroke Mother Heart attack Father Coronary artery disease Father Family Status - Relation Status Age at Mother Father Level of Service:62228 RI OFFICE/OUTPATIENT ESTABLISHED MOD MDM 30-39 MIN Normal [facility] CBC AUTO DIFFon 10-28-2022 BASO # 0.0 103/ul Normal 0.0-0.1 [facility] Comment on above: Performed By: #### L IPID, CMP, T4, TSH, FT3 #### [facility] [address] [place] [address] Dr. Mendel Herron Basophils/100 WBC (Bld) 0.2 % Normal 0.2-2.0 [facility] Comment on above: Performed By: #### L IPID, CMP, T4, TSH, FT3 #### [facility] [address] [address] [address] Mendel Herron EO # 0.0 103/ul Normal 0.0-0.7 [facility] Comment on above: Performed By: #### L IPID, CMP, T4, TSH, FT3 #### [facility] [address] [address] [address] Mendel Herron Eosinophils/100 WBC (Bld) 0.3 % Critically low 0.9-7.0 [facility] Comment on above: Performed By: #### L IPID, CMP, T4, TSH, FT3 #### [facility] [address] [place] [address] Dr. Mendel Herron Erythrocyte distribution width (RBC) [Ratio] 13.6 % Normal 11.0-15.0 [facility] Comment on above: Performed By: #### L IPID, CMP, T4, TSH, FT3 #### [facility] [address] [place] [address] Dr. Mendel Herron Hematocrit (Bld) [Volume fraction] 40.1 % Normal 36.0-48.0 [facility] Comment on above: Performed By: #### L IPID, CMP, T4, TSH, FT3 #### [facility] [address] [place] [address] Dr. Mendel Herron Hemoglobin (Bld) [Mass/Vol] 13.0 g/dL Normal 12.0-16.0 [facility] Comment on above: Performed By: #### L IPID, CMP, T4, TSH, FT3 #### [facility] [address] [place] [address] Dr. Mendel Herron IG # 0.06 10e3/ul Critically high 0.00-0.03 [facility] Comment on above: Performed By: #### L IPID, CMP, T4, TSH, FT3 #### [facility] [address] [place] [address] Dr. Mendel Herron IG % 0.5 % Normal 0.0-0.5 [facility] Comment on above: Performed By: #### L IPID, CMP, T4, TSH, FT3 #### [facility] [address] [place] [address] Dr. Mendel Herron LYMPH # 2.8 103/ul Normal 1.2-3.8 [facility] Comment on above: Performed By: #### L IPID, CMP, T4, TSH, FT3 #### [facility] [address] [place] [address] Dr. Mendel Herron Lymphocytes/100 WBC (Bld) 22.4 % Normal 20.5-60.0 [facility] Comment on above: Performed By: #### L IPID, CMP, T4, TSH, FT3 #### [facility] [address] [address] [address] Mendel Herron MANUAL DIFF REQ NO Normal [facility] Comment on above: Performed By: #### L IPID, CMP, T4, TSH, FT3 #### [facility] [address] [place] [address] Dr. Mendel Herron MCH (RBC) [Entitic mass] 30.8 pg Normal 26.7-34.0 [facility] Comment on above: Performed By: #### L IPID, CMP, T4, TSH, FT3 #### [facility] [address] [place] [address] Dr. Mendel Herron MCHC (RBC) [Mass/Vol] 32.4 g/dL Normal 29.9-35.2 [facility] Comment on above: Performed By: #### L IPID, CMP, T4, TSH, FT3 #### [facility] [address] [place] [address] Dr. Mendel Herron MCV (RBC) [Entitic vol] 95.0 fL Normal 81.0-99.0 [facility] Comment on above: Performed By: #### L IPID, CMP, T4, TSH, FT3 #### [facility] [address] [place] [address] Dr. Mendel Herron MONO # 0.9 103/ul Critically high 0.3-0.8 [facility] Comment on above: Performed By: #### L IPID, CMP, T4, TSH, FT3 #### [facility] [address] [place] [address] Dr. Mendel Herron Monocytes/100 WBC (Bld) 7.2 % Normal 1.7-12.0 [facility] Comment on above: Performed By: #### L IPID, CMP, T4, TSH, FT3 #### [facility] [address] [place] [address] Dr. Mendel Herron NEUT # 8.6 103/ul Critically high 1.4-6.5 [facility] Comment on above: Performed By: #### L IPID, CMP, T4, TSH, FT3 #### [facility] [address] [place] [address] Dr. Mendel Herron Neutrophils/100 WBC (Bld) 69.4 % Normal 43.0-75.0 [facility] Comment on above: Performed By: #### L IPID, CMP, T4, TSH, FT3 #### [facility] [address] [place] [address] Dr. Mendel Herron Platelet mean volume (Bld) [Entitic vol] 9.9 fL Normal 9.5-13.5 [facility] Comment on above: Performed By: #### L IPID, CMP, T4, TSH, FT3 #### [facility] [address] [place] [address] Dr. Mendel Herron PLT 297 103/ul Normal 150-450 [facility] Comment on above: Performed By: #### L IPID, CMP, T4, TSH, FT3 #### [facility] [address] [place] [address] Dr. Menedl Herron RBC 4.22 106/ul Normal 4.20-5.40 [facility] Comment on above: Performed By: #### L IPID, CMP, T4, TSH, FT3 #### [facility] [address] [place] [address] Dr. Mendel Herron WBC 12.4 103/ul Critically high 4.0-11.0 [facility] Comment on above: Performed By: #### L IPID, CMP, T4, TSH, FT3 #### [facility] [address] [place] [address] Dr. Mendel Herron CRPon 10-28-2022 CRP 1.3 mg/dL Critically high <=1.0 [facility] Comment on above: Performed By: #### L IPID, CMP, T4, TSH, FT3 #### [facility] [address] [address] [address] Mendel Herron PROF CHEM 8 (BAS METB)on Anion gap [Moles/Vol] 13.6 mmol/L Normal [facility] Comment on above: Performed By: #### L IPID, CMP, T4, TSH, FT3 #### [facility] [address] [place] [address] Dr. Mendel Herron Calcium [Mass/Vol] 9.3 mg/dL Normal 8.5-10.[address] [facility] Comment on above: Performed By: #### L IPID, CMP, T4, TSH, FT3 #### [facility] [address] [place] [address] Dr. Mendel Herron Chloride [Moles/Vol] 102 mmol/L Normal 98-107 [facility] Comment on above: Performed By: #### L IPID, CMP, T4, TSH, FT3 #### [facility] [address] [place] [address] Dr. Mendel Herron CO2 [Moles/Vol] 30.7 mmol/L Normal 21.0-32.0 [facility] Comment on above: Performed By: #### L IPID, CMP, T4, TSH, FT3 #### [facility] [address] [place] [address] Dr. Mendel Herron Creatinine [Mass/Vol] 0.85 mg/dL Normal 0.55-1.02 [facility] Comment on above: Performed By: #### L IPID, CMP, T4, TSH, FT3 #### [facility] [address] [place] [address] Dr. Mendel Herron EGFR-AF [place] >60 Normal >=60 [facility] Comment on above: Performed By: #### L IPID, CMP, T4, TSH, FT3 #### [facility] [address] [place] [address] Dr. Mendel Herron EGFR-NON AF [place] >60 Normal >=60 [facility] Comment on above: Performed By: #### L IPID, CMP, T4, TSH, FT3 #### [facility] [address] [address] [address] Mendel Herron Glucose [Mass/Vol] 101 mg/dL Normal 74-106 [facility] Comment on above: Performed By: #### L IPID, CMP, T4, TSH, FT3 #### [facility] [address] [place] [address] Dr. Mendel Herron Potassium [Moles/Vol] 3.3 mmol/L Critically low 3.5-5.1 [facility] Comment on above: Performed By: #### L IPID, CMP, T4, TSH, FT3 #### [facility] [address] [address] [address] Mendel Herron Sodium [Moles/Vol] 143 mmol/L Normal 136-145 [facility] Comment on above: Performed By: #### L IPID, CMP, T4, TSH, FT3 #### [facility] [address] [place] [address] Dr. Mendel Herron Urea nitrogen [Mass/Vol] 12.0 mg/dL Normal 7.0-18.0 [facility] Comment on above: Performed By: #### L IPID, CMP, T4, TSH, FT3 #### [facility] [address] [address] [address] Mendel Herron Urea nitrogen/Creatinine [Mass ratio] 14.1 mg/mg Normal [facility] Comment on above: Performed By: #### L IPID, CMP, T4, TSH, FT3 #### [facility] [address] [place] [address] Dr. Mendel Herron URIC ACID SERUMon 10-28-2022 Urate [Mass/Vol] 7.8 mg/dL Critically high 2.6-6.0 [facility] Comment on above: Performed By: #### L IPID, CMP, T4, TSH, FT3 #### [facility] [address] [place] [address] Dr. Mendel Herron XR TOES RT MIN 2 Von 023 XR TOES RT MIN 2 V IMAGES REVIEWED: XR TOES RT MIN 2 V COMPARISON: None available. CLINICAL INDICATION: Pain of toe of right foot FINDINGS/IMPRESSION: No evidence of acute osseous abnormality of the right toes. Mild hallux valgus with mild degenerative change of the first MTP joint. There is focally prominent soft tissue swelling adjacent to the medial first MTP joint which could questionably represent a gouty tophus and acute gouty flare, although no associated calcification. No bony erosions seen at this time. Accessory navicular and chronic sequela of prior medial ankle avulsion injury. Electronically authenticated by: GAIL PELLETIER Date: 2022-10-28 20:53 Normal [facility]on SARS-CoV-2 (COVID-19) RNA DEIRDRE+probe Ql (Unsp spec) Not detected Normal NOT DETECTED [facility] Comment on above: Result Comment: When diagnostic testing is negative, the possibility of a false negative should be considered in the context of a patient's recent exposures and the presence of clinical signs and symptoms consistent with SARS-CoV-2. This test is not yet approved or cleared by the [place] FDA. When there are no FDA-approved or cleared tests available, and other criteria are met, FDA can make tests available under an emergency access mechanism called an Emergency Use Authorization (EUA). The EUA for this test is supported by the Brokerage Manager of Health and Human Service's declaration that circumstances exist to justify the emergency use of in vitro diagnostics for the detection and/or diagnosis of the virus that causes COVID-19. This EUA will remain in effect for the duration of the COVID-19 declaration justifying emergency of IVDs, unless it is terminated or revoked by the FDA (after which the test may no longer be used). Performed By: #### L IPID, CMP, T4, TSH, FT3 #### [facility] [address] [address] [address] Mendel Herron Consent for Procedure/Surger yon 09-17-2022 Consent for Procedure/Surgery .[id number]#[id number]: 127 Normal [facility] Facesheeton 09-17-2022 Facesheet [id number]: 127 Normal [facility] Pre-Certification Formon Pre-Certification Form [id number]: 127 Normal [facility] Ambulatory Visit Summaryon 0 09-15-2022 Ambulatory Visit Summary DIANA ALVAREZ :1970 Visit Date:09/15/2022 Ambulatory Visit Instructions Your Care Team Attending Physician - BRAD DIAZ, Juan Miguel Ortiz Primary Care Physician - Seth DIAZ, Phillip Referring Physician - Phillip Ann MD This Is Your Medications List Contact prescribing physician if questions or concerns Misc Prescription (lancets, glucometer, alcohol swabs, testing strips, insulin pen needles) albuterol (Pro-Air HFA CFC free 90 mcg/inh MDI) albuterol (albuterol 0.083% Inh Valeria 3 mL) apixaban (Eliquis 5 mg oral tablet) diltiazem (DilTIAZem (Eqv-Cardizem CD) 240 mg/24 hours oral capsule, extended release) famotidine (Pepcid) ferrous sulfate (ferrous sulfate 325 mg Tab) furosemide (furosemide 40 mg Tab) hyoscyamine (Levsin 0.125 mg SL Tab) isosorbide mononitrate (isosorbide mononitrate 30 mg ER Tab) metformin (metformin 500 mg Tab) metoprolol (Metoprolol succinate 50 mg ER Tablet) pantoprazole (Pantoprazole [address] Tab) potassium chloride (potassium chloride 20 mEq ER Tab) semaglutide (Ozempic 2 mg/1.5 mL (0.25 mg or 0.5 mg dose) subcutaneous solution) Procedures Performed section, section, Excision of cyst of breast, History of cardiac radiofrequency ablation, Implantation of insertable loop recorder, Nasal endoscopy, Tubal ligation. Discharge Vitals Heart Rate (Peripheral) 70 Respiratory Rate 16 Blood Pressure 116/78 Height 157 cm Height 62 in Weight 86.8 kg Weight 190.96 lb BMI 35.21 Medications What How Much When Instructions Unchanged albuterol (albuterol 0.083% Inh Valeria 3 mL) 3 Milliliter Nebulized inhalation (aerosol) Every day Contact prescribing physician if questions or concerns Unchanged albuterol (Pro-Air HFA CFC free 90 mcg/ inh MDI) 2 Puffs Inhalation Once as needed for for wheezing Contact prescribing physician if questions or concerns Unchanged apixaban (Eliquis 5 mg oral tablet) 1 Tablets By Mouth 2 times a day Contact prescribing physician if questions or concerns Unchanged diltiazem (DilTIAZem (Eqv-Cardizem CD) 240 mg/ 24 hours oral capsule, extended release) 1 Capsules By Mouth Every day Contact prescribing physician if questions or concerns Unchanged famotidine (Pepcid) Contact prescribing physician if questions or concerns Unchanged ferrous sulfate (ferrous sulfate 325 mg Tab) 1 Tablets By Mouth 2 times a day Contact prescribing physician if questions or concerns Unchanged furosemide (furosemide 40 mg Tab) 1 Tablets By Mouth 2 times a day Contact prescribing physician if questions or concerns Unchanged hyoscyamine (Levsin 0.125 mg SL Tab) 1 Tablets By Mouth 4 times a day as needed for cramping Contact prescribing physician if questions or concerns Unchanged isosorbide mononitrate (isosorbide mononitrate 30 mg ER Tab) 1 Tablets By Mouth Once a day (in the morning) Contact prescribing physician if questions or concerns Unchanged metformin (metformin 500 mg Tab) 1 Tablets By Mouth 2 times a day Contact prescribing physician if questions or concerns Unchanged metoprolol (Metoprolol succinate 50 mg ER Tablet) 50 Milligram By Mouth Every day Contact prescribing physician if questions or concerns Unchanged Misc Prescription (lancets, glucometer, alcohol swabs, testing strips, insulin pen needles) 0 Contact prescribing physician if questions or concerns Unchanged pantoprazole (Pantoprazole [address] Tab) 1 Tablets By Mouth Every day Contact prescribing physician if questions or concerns Unchanged potassium chloride (potassium chloride 20 mEq ER Tab) 1 Tablets By Mouth 2 times a day Contact prescribing physician if questions or concerns Unchanged semaglutide (Ozempic 2 mg/ 1.5 mL (0.25 mg or 0.5 mg dose) subcutaneous solution) as directed Contact prescribing physician if questions or concerns Allergies morphine (Nervousness, Tachycardia) Problems Ongoing - Any problem that you are currently receiving treatment for. Atrial flutter BMI 35.0-35.9,adult Cervical disc disease Chronic diastolic heart failure Chronic obstructive pulmonary disease Cystic kidney disease Depression Diabetes Diverticulosis Fibrocystic disease of breast Gout History of pericarditis HTN (hypertension) IBS (irritable bowel syndrome) Insomnia Low back pain syndrome Migraines Mild aortic stenosis LILLIANA (obstructive sleep apnea) PAF (paroxysmal atrial fibrillation) Pericardial effusion Pulmonary HTN Pure hypercholesterolemia RUQ pain Normal [facility] ED Note-Physicianon 09-14-19 ED Note-Physician [id number]: 127 Normal [facility] RAD - MISCon 09-14-2022 RAD - MISC [id number]: 127 Normal [facility] RAD - Ultrasound Reporton RAD - Ultrasound Report [id number]: 127 Normal [facility] CBC AUTO DIFFon 09-09-2022 BASO # 0.1 103/ul Normal 0.0-0.1 [facility] Comment on above: Performed By: #### L IPID, CMP, T4, TSH, FT3 #### [facility] [address] [place] [address] Dr. Mendel Herron Basophils/100 WBC (Bld) 0.7 % Normal 0.2-2.0 [facility] Comment on above: Performed By: #### L IPID, CMP, T4, TSH, FT3 #### [facility] [address] [address] [address] Mendel Herron EO # 0.1 103/ul Normal 0.0-0.7 [facility] Comment on above: Performed By: #### L IPID, CMP, T4, TSH, FT3 #### [facility] [address] [place] [address] Dr. Mendel Herron Eosinophils/100 WBC (Bld) 0.7 % Critically low 0.9-7.0 [facility] Comment on above: Performed By: #### L IPID, CMP, T4, TSH, FT3 #### [facility] [address] [place] [address] Dr. Mendel Herron Erythrocyte distribution width (RBC) [Ratio] 13.1 % Normal 11.0-15.0 [facility] Comment on above: Performed By: #### L IPID, CMP, T4, TSH, FT3 #### [facility] [address] [place] [address] Dr. Mendel Herron Hematocrit (Bld) [Volume fraction] 43.7 % Normal 36.0-48.0 [facility] Comment on above: Performed By: #### L IPID, CMP, T4, TSH, FT3 #### [facility] [address] [place] [address] Dr. Mendel Herron Hemoglobin (Bld) [Mass/Vol] 14.4 g/dL Normal 12.0-16.0 [facility] Comment on above: Performed By: #### L IPID, CMP, T4, TSH, FT3 #### [facility] [address] [place] [address] Dr. Mendel Herron IG # 0.11 10e3/ul Critically high 0.00-0.03 [facility] Comment on above: Performed By: #### L IPID, CMP, T4, TSH, FT3 #### [facility] [address] [place] [address] Dr. Mendel Herron IG % 1.3 % Critically high 0.0-0.5 [facility] Comment on above: Performed By: #### L IPID, CMP, T4, TSH, FT3 #### [facility] [address] [place] [address] Dr. Mendel Herron LYMPH # 2.4 103/ul Normal 1.2-3.8 [facility] Comment on above: Performed By: #### L IPID, CMP, T4, TSH, FT3 #### [facility] [address] [place] [address] Dr. Mendel Herron Lymphocytes/100 WBC (Bld) 27.9 % Normal 20.5-60.0 [facility] Comment on above: Performed By: #### L IPID, CMP, T4, TSH, FT3 #### [facility] [address] [place] [address] Dr. Mendel Herron MANUAL DIFF REQ NO Normal [facility] Comment on above: Performed By: #### L IPID, CMP, T4, TSH, FT3 #### [facility] [address] [place] [address] Dr. Mendel Herron MCH (RBC) [Entitic mass] 31.0 pg Normal 26.7-34.0 [facility] Comment on above: Performed By: #### L IPID, CMP, T4, TSH, FT3 #### [facility] [address] [place] [address] Dr. Mendel Herron MCHC (RBC) [Mass/Vol] 33.0 g/dL Normal 29.9-35.2 [facility] Comment on above: Performed By: #### L IPID, CMP, T4, TSH, FT3 #### [facility] [address] [place] [address] Dr. Mendel Herron MCV (RBC) [Entitic vol] 94.0 fL Normal 81.0-99.0 [facility] Comment on above: Performed By: #### L IPID, CMP, T4, TSH, FT3 #### [facility] [address] [place] [address] Dr. Mendel Herron MONO # 0.5 103/ul Normal 0.3-0.8 [facility] Comment on above: Performed By: #### L IPID, CMP, T4, TSH, FT3 #### [facility] [address] [place] [address] Dr. Mendel Herron Monocytes/100 WBC (Bld) 6.0 % Normal 1.7-12.0 [facility] Comment on above: Performed By: #### L IPID, CMP, T4, TSH, FT3 #### [facility] [address] [place] [address] Dr. Mendel Herron NEUT # 5.4 103/ul Normal 1.4-6.5 [facility] Comment on above: Performed By: #### L IPID, CMP, T4, TSH, FT3 #### [facility] [address] [place] [address] Dr. Mendel Herron Neutrophils/100 WBC (Bld) 63.4 % Normal 43.0-75.0 [facility] Comment on above: Performed By: #### L IPID, CMP, T4, TSH, FT3 #### [facility] [address] [address] [address] Mendel Herron Platelet mean volume (Bld) [Entitic vol] 9.8 fL Normal 9.5-13.5 [facility] Comment on above: Performed By: #### L IPID, CMP, T4, TSH, FT3 #### [facility] [address] [address] [address] Mendel Herron PLT 398 103/ul Normal 150-450 [facility] Comment on above: Performed By: #### L IPID, CMP, T4, TSH, FT3 #### [facility] [address] [place] [address] Dr. Mendel Herron RBC 4.65 106/ul Normal 4.20-5.40 [facility] Comment on above: Performed By: #### L IPID, CMP, T4, TSH, FT3 #### [facility] [address] [place] [address] Dr. Mendel Herron WBC 8.6 103/ul Normal 4.0-11.0 [facility] Comment on above: Performed By: #### L IPID, CMP, T4, TSH, FT3 #### [facility] [address] [place] [address] Dr. Mendel Herron FREE T3on 09-09-2022 FREE T3 2.59 pg/mlL Normal 2.18-3.98 [facility] Comment on above: Performed By: #### L IPID, CMP, T4, TSH, FT3 #### [facility] [address] [place] [address] Dr. Mendel Herron GLYCOHEMOGLOBIN A1Con 2022 ADA RECOMMENDATION SEE BELOW Normal [facility] Comment on above: Result Comment: ADA RECOMMENDED LIMIT 4.0 - 6.0 ADA THERAPEUTIC TARGET < 7.0 ACTION SUGGESTED > 7.0 Performed By: #### A 1C #### [facility] [address] [place] [address] Dr. Mendel Herron Glucose [Mass/Vol] 120 mg/dL Normal [facility] Comment on above: Performed By: #### A 1C #### [facility] [address] [address] [address] Mendel Herron HbA1c (Bld) [Mass fraction] 5.8 % Normal 4.5-6.2 [facility] Comment on above: Performed By: #### A 1C #### [facility] [address] [address] [address] Mendel Herron LIPID PROFILEon 09-09-2022 CHOL-HDL RATIO NORM SEE BELOW Normal [facility] Comment on above: Result Comment: 3.3 - 4.4 LOW RISK 4.4 - 7.1 AVERAGE RISK 7.1 - 11.0 MODERATE RISK >11.0 HIGH RISK Performed By: #### L IPID, CMP, T4, TSH, FT3 #### [facility] [address] [address] [address] Mendel Herron Cholesterol [Mass/Vol] 308 mg/dL Critically high <=200 [facility] Comment on above: Performed By: #### L IPID, CMP, T4, TSH, FT3 #### [facility] [address] [address] [address] Mendel Herron Cholesterol in HDL [Mass/Vol] 46 mg/dL Normal 40-60 [facility] Comment on above: Performed By: #### L IPID, CMP, T4, TSH, FT3 #### [facility] [address] [address] [address] Mendel Herron Cholesterol in LDL [Mass/Vol] 212.6 mg/dL Normal [facility] Comment on above: Performed By: #### L IPID, CMP, T4, TSH, FT3 #### [facility] [address] [address] [address] Mendel Herron Cholesterol.total/C holesterol in HDL [Mass ratio] 6.7 {ratio} Normal [facility] Comment on above: Performed By: #### L IPID, CMP, T4, TSH, FT3 #### [facility] [address] [address] [address] Mendel Herron HDL NORMAL > or = 60 mg/dl - LO W CARDIOVASCULAR RISK <40 mg/dl - HIGH CARDIOVASCULAR RISK Normal [facility] Comment on above: Performed By: #### L IPID, CMP, T4, TSH, FT3 #### [facility] [address] [place] [address] Dr. Mendel Herron LDL CALC NORMAL SEE BELOW Normal [facility] Comment on above: Result Comment: <100 mg/dl OPTIMAL 100 - 129 mg/dl NEAR OR ABOVE OPTIMAL 130 - 159 mg/dl BORDERLINE HIGH 160 - 189 mg/dl HIGH >190 mg/dl VERY HIGH Performed By: #### L IPID, CMP, T4, TSH, FT3 #### [facility] [address] [address] [address] Mendel Herron Triglyceride [Mass/Vol] 247 mg/dL Critically high <=150 [facility] Comment on above: Performed By: #### L IPID, CMP, T4, TSH, FT3 #### [facility] [address] [place] [address] Dr. Mendel Herron VLDL CALC 49.4 mg/dL Normal [facility] Comment on above: Performed By: #### L IPID, CMP, T4, TSH, FT3 #### [facility] [address] [place] [address] Dr. Mendel Herron PROF 14(COMP METB)on 023 Albumin [Mass/Vol] 4.0 g/dL Normal 3.4-5.[address] [facility] Comment on above: Performed By: #### L IPID, CMP, T4, TSH, FT3 #### [facility] [address] [place] [address] Dr. Mendel Herron Albumin/Globulin [Mass ratio] 0.9 {ratio} Normal [facility] Comment on above: Performed By: #### L IPID, CMP, T4, TSH, FT3 #### [facility] [address] [place] [address] Dr. Mendel Herron ALP [Catalytic activity/Vol] 115 U/L Normal 46-116 [facility] Comment on above: Performed By: #### L IPID, CMP, T4, TSH, FT3 #### [facility] [address] [place] [address] Dr. Mendel Herron ALT [Catalytic activity/Vol] 30 U/L Normal 14-59 [facility] Comment on above: Performed By: #### L IPID, CMP, T4, TSH, FT3 #### [facility] [address] [place] [address] Dr. Mendel Herron Anion gap [Moles/Vol] 12.7 mmol/L Normal [facility] Comment on above: Performed By: #### L IPID, CMP, T4, TSH, FT3 #### [facility] [address] [address] [address] Mendel Herron AST [Catalytic activity/Vol] 18 U/L Normal 15-37 [facility] Comment on above: Performed By: #### L IPID, CMP, T4, TSH, FT3 #### [facility] [address] [place] [address] Dr. Mendel Herron Bilirubin [Mass/Vol] 0.7 mg/dL Normal 0.2-1.0 [facility] Comment on above: Performed By: #### L IPID, CMP, T4, TSH, FT3 #### [facility] [address] [address] [address] Mendel Herron Calcium [Mass/Vol] 9.7 mg/dL Normal 8.5-10.[address] [facility] Comment on above: Performed By: #### L IPID, CMP, T4, TSH, FT3 #### [facility] [address] [address] [address] Mendel Herron Chloride [Moles/Vol] 103 mmol/L Normal 98-107 [facility] Comment on above: Performed By: #### L IPID, CMP, T4, TSH, FT3 #### [facility] [address] [address] [address] Mendel Herron CO2 [Moles/Vol] 26.5 mmol/L Normal 21.0-32.0 [facility] Comment on above: Performed By: #### L IPID, CMP, T4, TSH, FT3 #### [facility] [address] [place] [address] Dr. Mendel Herorn Creatinine [Mass/Vol] 0.83 mg/dL Normal 0.55-1.02 [facility] Comment on above: Performed By: #### L IPID, CMP, T4, TSH, FT3 #### [facility] [address] [address] [address] Mendel Herron EGFR-AF SOUTH [place]FR[place] >60 Normal >=60 [facility] Comment on above: Performed By: #### L IPID, CMP, T4, TSH, FT3 #### [facility] [address] [place] [address] Dr. Mendel Herron EGFR-NON AF [place] >60 Normal >=60 [facility] Comment on above: Performed By: #### L IPID, CMP, T4, TSH, FT3 #### [facility] [address] [place] [address] Dr. Mendel Herron Globulin (S) [Mass/Vol] 4.4 g/dL Normal [facility] Comment on above: Performed By: #### L IPID, CMP, T4, TSH, FT3 #### [facility] [address] [address] [address] Mendel Herron Glucose [Mass/Vol] 97 mg/dL Normal 74-[address] [facility] Comment on above: Performed By: #### L IPID, CMP, T4, TSH, FT3 #### [facility] [address] [place] [address] Dr. Mendel Herron Potassium [Moles/Vol] 4.2 mmol/L Normal 3.5-5.1 [facility] Comment on above: Performed By: #### L IPID, CMP, T4, TSH, FT3 #### [facility] [address] [address] [address] Mendel Herron Protein [Mass/Vol] 8.4 g/dL Critically high 6.4-8.2 [facility] Comment on above: Performed By: #### L IPID, CMP, T4, TSH, FT3 #### [facility] [address] [address] [address] Mendel Herron Sodium [Moles/Vol] 138 mmol/L Normal 136-[address] [facility] Comment on above: Performed By: #### L IPID, CMP, T4, TSH, FT3 #### [facility] [address] [place] [address] Dr. Mendel Herron Urea nitrogen [Mass/Vol] 12.0 mg/dL Normal 7.0-18.0 [facility] Comment on above: Performed By: #### L IPID, CMP, T4, TSH, FT3 #### [facility] [address] [place] [address] Dr. Mendel Herron Urea nitrogen/Creatinine [Mass ratio] 14.5 mg/mg Normal [facility] Comment on above: Performed By: #### L IPID, CMP, T4, TSH, FT3 #### [facility] [address] [place] [address] Dr. Mendel Herron T4on 09-09-2022 T4 [Mass/Vol] 8.80 ug/dL Normal 4.80-13.90 [facility] Comment on above: Performed By: #### L IPID, CMP, T4, TSH, FT3 #### [facility] [address] [place] [address] Dr. Mendel Herron TSHon 09-09-2022 TSH 0.898 uIU/mL Normal 0.358-3.740 [facility] Comment on above: Performed By: #### L IPID, CMP, T4, TSH, FT3 #### [facility] [address] [place] [address] Dr. Mendel Herron VITAMIN D 25 OHon 09-09-2022 VIT D 25-OH 24.0 ng/mL Normal [facility] Comment on above: Performed By: #### L IPID, CMP, T4, TSH, FT3 #### [facility] [address] [place] [address] Dr. Mendel Herron VIT D RANGES SEE BELOW Normal [facility] Comment on above: Result Comment: <20 ng/mL Vit D deficient 20 - <30 ng/mL Vit D insufficient 30 - 100 ng/mL Vit D sufficient >100 ng/mL Potential Toxicity Performed By: #### L IPID, CMP, T4, TSH, FT3 #### [facility] [address] [address] [address] Mendel Herron Physician Referralon 023 Physician Referral [id number]: 127 Normal [facility] NM HEPATOBILIARY SCAN W EFon 08-20-2022 NM HEPATOBILIARY SCAN W EF EXAMINATION: NM HEPATOBILIARY SCAN W EF HISTORY: Right upper quadrant pain COMPARISON: No relevant comparison available. TECHNIQUE: Radionuclide hepatobiliary imaging was performed after intravenous injection of 5.2 mCi Tc-99m mebrofenin with sequential acquisitions every 1 minute for one hour. Hepatobiliary imaging with gallbladder ejection fraction analysis was then performed with sequential imaging every 1 minute for 60 minutes after 8 ounces of ensure plus FINDINGS: LIVER: Normal, prompt and uniform radiotracer uptake and clearing. BILIARY DUCTS: Normal radioisotopic biliary excretion. GALLBLADDER: Normal with no evidence of cystic duct obstruction. INTESTINE: Normal with no evidence of common biliary ductal obstruction. EJECTION FRACTION: 41 % within 60 minutes. (Normal EF > 38%). OTHER: Negative. IMPRESSION: Normal hepatobiliary scan Normal gallbladder ejection fraction of 41% Electronically authenticated by: VIVI GARY Date: 2022-08-20 16:07 Normal [facility] Office Visiton 08-11-2022 Follow-up visit [id number] Cyndi Alvarez 1970 F Date Provider Department [facility] 08/11/2022 Elsa-CURTIS MARTINEZ [facility] Family History Problem Relation Age of Onset Breast cancer Mother Aneurysm Mother Stroke Mother Heart attack Father Coronary artery disease Father Family Status - Relation Status Age at Mother Father Level of Service:68054 RI OFFICE/OUTPATIENT ESTABLISHED MOD MDM 30-39 MIN Reason for Visit and Comments: Atrial Fibrillation [80] Atrial Flutter [101] Normal [facility] US SINGLE QUAD RT UPPERon US SINGLE QUAD RT UPPER EXAMINATION: US SINGLE QUAD RT UPPER HISTORY: Right upper quadrant pain , epigastric pain for one week, nausea COMPARISON: Ultrasound right upper quadrant 08/30/2021, CT abdomen pelvis 08/30/2021 TECHNIQUE: Transabdominal evaluation of the right upper quadrant. FINDINGS: LIVER: Increased echogenicity suggestive of fatty infiltration. Subtle 3.0 x 2.9 x 2.8 cm slightly heterogeneous area within posterior aspect of left hepatic lobe, with no corresponding finding on the prior noncontrast CT abdomen and pelvis study. Color Doppler demonstrates patent hepatic veins. PORTAL VEIN: Duplex Doppler demonstrates normal hepatopetal flow pattern with flow velocity averaging 24 cm/s. GALLBLADDER: Contains a few small stones. No wall thickening or pericholecystic free fluid. Negative sonographic Martell's sign. BILIARY: No abnormal dilation or stones. Common bile duct diameter is within normal limits. PANCREASE: No visible mass, abnormal atrophy, or duct dilation. KIDNEY: No hydronephrosis. No visible mass or stones. Small 1 cm benign-appearing cyst. Size: 11.0 x 6.3 x 5.3 cm IMPRESSION: 1. Cholelithiasis without evidence of acute cholecystitis. 2. Fatty infiltration and subtle slightly heterogeneous area within left hepatic lobe which may represent focal fatty sparing. If clinical concern, consider follow-up CT liver without and with IV contrast. Electronically authenticated by: JEAN LOPES Date: 2022-08-11 15:50 Normal [facility] CARDIAC SUBHA ADMITon 023 CK [Catalytic activity/Vol] 30 U/L Normal 26-192 [facility] Comment on above: Performed By: #### L IPID, CMP, T4, TSH, FT3 #### [facility] [address] [address] [address] Mendel Herron CK.MB [Mass/Vol] 1.02 ng/mL Normal <=3.60 [facility] Comment on above: Performed By: #### L IPID, CMP, T4, TSH, FT3 #### [facility] [address] [address] [address] Mendel Herron HSTROP 32.8 pg/mL Normal 4.0-51.3 [facility] Comment on above: Result Comment: CUT- OFF POINTS HAVE BEEN ESTABLISHED BASED ON THE FOURTH UNIVERSAL DEFINITIONS OF MYOCARDIAL INFARCTION. THE UPPER REFERENCE LIMIT (URL) OF TROPONIN, DEFINED THE 99TH PERCENTILE OF cTnI DISTRIBUTION IN A REFERENCE POPULATION, HAS BEEN CONFIRMED THE DECISION THRESHOLD FOR RI DIAGNOSIS. Performed By: #### L IPID, CMP, T4, TSH, FT3 #### [facility] [address] [place] [address] Dr. Mendel Herron SONYA 23 ng/mL Normal 9-82 [facility] Comment on above: Performed By: #### L IPID, CMP, T4, TSH, FT3 #### [facility] [address] [place] [address] Dr. Mendel Herron CBC AUTO DIFFon 08-09-2022 BASO # 0.0 103/ul Normal 0.0-0.1 [facility] Comment on above: Performed By: #### L IPID, CMP, T4, TSH, FT3 #### [facility] [address] [place] [address] Dr. Mendel Herron Basophils/100 WBC (Bld) 0.3 % Normal 0.2-2.0 [facility] Comment on above: Performed By: #### L IPID, CMP, T4, TSH, FT3 #### [facility] [address] [place] [address] Dr. Mendel Herron EO # 0.0 103/ul Normal 0.0-0.7 [facility] Comment on above: Performed By: #### L IPID, CMP, T4, TSH, FT3 #### [facility] [address] [place] [address] Dr. Mendel Herron Eosinophils/100 WBC (Bld) 0.3 % Critically low 0.9-7.0 [facility] Comment on above: Performed By: #### L IPID, CMP, T4, TSH, FT3 #### [facility] [address] [place] [address] Dr. Mendel Herron Erythrocyte distribution width (RBC) [Ratio] 13.1 % Normal 11.0-15.0 [facility] Comment on above: Performed By: #### L IPID, CMP, T4, TSH, FT3 #### [facility] [address] [place] [address] Dr. Mendel Herron Hematocrit (Bld) [Volume fraction] 42.7 % Normal 36.0-48.0 [facility] Comment on above: Performed By: #### L IPID, CMP, T4, TSH, FT3 #### [facility] [address] [place] [address] Dr. Mendel Herron Hemoglobin (Bld) [Mass/Vol] 15.4 g/dL Normal 12.0-16.0 [facility] Comment on above: Performed By: #### L IPID, CMP, T4, TSH, FT3 #### [facility] [address] [place] [address] Dr. Mendel Herron IG # 0.05 10e3/ul Critically high 0.00-0.03 [facility] Comment on above: Performed By: #### L IPID, CMP, T4, TSH, FT3 #### [facility] [address] [place] [address] Dr. Mendel Herron IG % 0.4 % Normal 0.0-0.5 [facility] Comment on above: Performed By: #### L IPID, CMP, T4, TSH, FT3 #### [facility] [address] [place] [address] Dr. Mendel Herron LYMPH # 2.5 103/ul Normal 1.2-3.8 [facility] Comment on above: Performed By: #### L IPID, CMP, T4, TSH, FT3 #### [facility] [address] [place] [address] Dr. Mendel Herron Lymphocytes/100 WBC (Bld) 21.2 % Normal 20.5-60.0 [facility] Comment on above: Performed By: #### L IPID, CMP, T4, TSH, FT3 #### [facility] [address] [place] [address] Dr. Mendel Herron MANUAL DIFF REQ NO Normal [facility] Comment on above: Performed By: #### L IPID, CMP, T4, TSH, FT3 #### [facility] [address] [place] [address] Dr. Mendel Herron MCH (RBC) [Entitic mass] 31.7 pg Normal 26.7-34.0 [facility] Comment on above: Performed By: #### L IPID, CMP, T4, TSH, FT3 #### [facility] [address] [place] [address] Dr. Mendel Herron MCHC (RBC) [Mass/Vol] 36.1 g/dL Critically high 29.9-35.2 [facility] Comment on above: Performed By: #### L IPID, CMP, T4, TSH, FT3 #### [facility] [address] [place] [address] Dr. Mendel Herron MCV (RBC) [Entitic vol] 87.9 fL Normal 81.0-99.0 [facility] Comment on above: Performed By: #### L IPID, CMP, T4, TSH, FT3 #### [facility] [address] [place] [address] Dr. Mendel Herron MONO # 0.7 103/ul Normal 0.3-0.8 [facility] Comment on above: Performed By: #### L IPID, CMP, T4, TSH, FT3 #### [facility] [address] [place] [address] Dr. Mendel Herron Monocytes/100 WBC (Bld) 6.3 % Normal 1.7-12.0 [facility] Comment on above: Performed By: #### L IPID, CMP, T4, TSH, FT3 #### [facility] [address] [place] [address] Dr. Mendel Herron NEUT # 8.4 103/ul Critically high 1.4-6.5 [facility] Comment on above: Performed By: #### L IPID, CMP, T4, TSH, FT3 #### [facility] [address] [place] [address] Dr. Mendel Herron Neutrophils/100 WBC (Bld) 71.5 % Normal 43.0-75.0 [facility] Comment on above: Performed By: #### L IPID, CMP, T4, TSH, FT3 #### [facility] [address] [place] [address] Dr. Mendel Herron Platelet mean volume (Bld) [Entitic vol] 9.8 fL Normal 9.5-13.5 [facility] Comment on above: Performed By: #### L IPID, CMP, T4, TSH, FT3 #### [facility] [address] [place], [place] [address] Dr. Mendel Herron PLT 374 103/ul Normal 150-450 [facility] Comment on above: Performed By: #### L IPID, CMP, T4, TSH, FT3 #### [facility] [address] [place], [place] [address] Dr. Mendel Herron RBC 4.86 106/ul Normal 4.20-5.40 [facility] Comment on above: Performed By: #### L IPID, CMP, T4, TSH, FT3 #### [facility] [address] [place], [place] [address] Dr. Mendel Herron WBC 11.7 103/ul Critically high 4.0-11.0 [facility] Comment on above: Performed By: #### L IPID, CMP, T4, TSH, FT3 #### [facility] [address] [address] HEAD WO CONon 08-09-2022 CT HEAD WO CON EXAM: CT HEAD WO CON CLINICAL INDICATION: HEADACHE COMPARISON: CT head 08/05/2022. TECHNIQUE: Axial CT images of the brain were obtained without contrast. Coronal and sagittal reformats were obtained. Dose reduction techniques were achieved by using automated exposure control and/or adjustment of mA and/or kV according to patient size and/or use of iterative reconstruction technique. FINDINGS: Evaluation is limited due to patient motion artifact. Given this constraint, no gross intracranial hemorrhage, extra-axial fluid collection, hydrocephalus, midline shift, or acute infarction. No other mass effect. Patent basal cisterns. No calvarial fracture. Normal soft tissues. Paranasal sinuses and mastoid air cells are well-aerated. IMPRESSION: Given the constraint of patient motion artifact, no gross acute intracranial process. No substantial change since 08/05/2022. Electronically authenticated by: HELLEN VELAZQUEZ Date: 2022-08-09 15:23 Normal [facility] SARS-CoV-2 (COVID-19) RNA DEIRDRE+probe Ql (Unsp spec) Not detected Normal NOT DETECTED [facility] Comment on above: Result Comment: When diagnostic testing is negative, the possibility of a false negative should be considered in the context of a patient's recent exposures and the presence of clinical signs and symptoms consistent with SARS-CoV-2. This test is not yet approved or cleared by the [place] FDA. When there are no FDA-approved or cleared tests available, and other criteria are met, FDA can make tests available under an emergency access mechanism called an Emergency Use Authorization (EUA). The EUA for this test is supported by the [place] of Health and Human Service's declaration that circumstances exist to justify the emergency use of in vitro diagnostics for the detection and/or diagnosis of the virus that causes COVID-19. This EUA will remain in effect for the duration of the COVID-19 declaration justifying emergency of IVDs, unless it is terminated or revoked by the FDA (after which the test may no longer be used). Performed By: #### L IPID, CMP, T4, TSH, FT3 #### [facility] [address] [place] [address] Dr. Mendel Herron ER URINE PROFILEon 3 Bilirubin Ql (U) Negative Normal NEGATIVE [facility] Comment on above: Performed By: #### L IPID, CMP, T4, TSH, FT3 #### [facility] [address] [place] [address] Dr. Mendel Herron Clarity (U) CLEAR Normal CLEAR [facility] Comment on above: Performed By: #### L IPID, CMP, T4, TSH, FT3 #### [facility] [address] [place] [address] Dr. Mendel Herron Color (U) LT. YELLOW Normal YELLOW [facility] Comment on above: Performed By: #### L IPID, CMP, T4, TSH, FT3 #### [facility] [address] [place] [address] Dr. Mendel Herron ERUAHD A micrscopic examina tion will be performed if indicated. Normal [facility] Comment on above: Performed By: #### L IPID, CMP, T4, TSH, FT3 #### [facility] [address] [place] [address] Dr. Mendel Herron Glucose Ql (U) Negative Normal NEGATIVE [facility] Comment on above: Performed By: #### L IPID, CMP, T4, TSH, FT3 #### [facility] [address] [address] [address] Mendel Herron Hemoglobin Ql (U) TRACE-INTACT Abnormal NEGATIVE [facility] Comment on above: Performed By: #### L IPID, CMP, T4, TSH, FT3 #### [facility] [address] [address] [address] Mendel Herron Ketones Ql (U) Negative Normal NEGATIVE [facility] Comment on above: Performed By: #### L IPID, CMP, T4, TSH, FT3 #### [facility] [address] [address] [address] Mendel Herron LEUKOCYTES Negative Normal NEGATIVE [facility] Comment on above: Performed By: #### L IPID, CMP, T4, TSH, FT3 #### [facility] [address] [address] [address] Mendel Herron Nitrite Ql (U) Negative Normal NEGATIVE [facility] Comment on above: Performed By: #### L IPID, CMP, T4, TSH, FT3 #### [facility] [address] [address] [address] Mendel Herron pH (U) 5.0 [pH] Normal 5-9 [facility] Comment on above: Performed By: #### L IPID, CMP, T4, TSH, FT3 #### [facility] [address] [address] [address] Mendel Herron SPEC GRAVITY 1.015 Normal 1.005-<=1.02 5 [facility] Comment on above: Performed By: #### L IPID, CMP, T4, TSH, FT3 #### [facility] [address] [address] [address] Mendel Herron UA PROTEIN Negative Normal NEGATIVE/ TRACE [facility] Comment on above: Performed By: #### L IPID, CMP, T4, TSH, FT3 #### [facility] [address] [address] [address] Mendel Herron UR MICRO IND INDICATED Normal [facility] Comment on above: Performed By: #### L IPID, CMP, T4, TSH, FT3 #### [facility] [address] [place] [address] Dr. Mendel Herron Urobilinogen Qn (U) 0.2 {James'U}/dL Normal 0.2 - 1. 0 [facility] Comment on above: Performed By: #### L IPID, CMP, T4, TSH, FT3 #### [facility] [address] [place] [address] Dr. Mendel Herron LIPASEon 08-09-2022 Lipase [Catalytic activity/Vol] 114.0 U/L Normal 73.0-393.0 [facility] Comment on above: Performed By: #### L IPA, BMP, CMADM #### [facility] [address] [place] [address] Dr. Mendel Herron PROF CHEM 8 (BAS METB)on Anion gap [Moles/Vol] 18.9 mmol/L Normal [facility] Comment on above: Performed By: #### L IPA, BMP, CMADM #### [facility] [address] [place] [address] Dr. Mendel Herron Calcium [Mass/Vol] 9.4 mg/dL Normal 8.5-10.[address] [facility] Comment on above: Performed By: #### L IPA, BMP, CMADM #### [facility] [address] [place] [address] Dr. Mendel Herron Chloride [Moles/Vol] 97 mmol/L Critically low 98-107 [facility] Comment on above: Performed By: #### L IPA, BMP, CMADM #### [facility] [address] [place] [address] Dr. Mendel Herron CO2 [Moles/Vol] 26.0 mmol/L Normal 21.0-32.0 [facility] Comment on above: Performed By: #### L IPA, BMP, CMADM #### [facility] [address] [place] [address] Dr. Mendel Herron Creatinine [Mass/Vol] 0.85 mg/dL Normal 0.55-1.02 [facility] Comment on above: Performed By: #### L IPA, BMP, CMADM #### [facility] [address] [address] [address] Mendel Herron EGFR-AF SOUTH [place] >60 Normal >=60 [facility] Comment on above: Performed By: #### L IPA, BMP, CMADM #### [facility] [address] [address] [address] Mendel Herron EGFR-NON AF [place] >60 Normal >=60 [facility] Comment on above: Performed By: #### L IPA, BMP, CMADM #### [facility] [address] [address] [address] Mendel Herron Glucose [Mass/Vol] 120 mg/dL Critically high 74-106 [facility] Comment on above: Performed By: #### L IPA, BMP, CMADM #### [facility] [address] [address] [address] Mendel Herron Potassium [Moles/Vol] 3.9 mmol/L Normal 3.5-5.1 [facility] Comment on above: Performed By: #### L IPA, BMP, CMADM #### [facility] [address] [address] [address] Mendel Herron Sodium [Moles/Vol] 138 mmol/L Normal 136-[address] [facility] Comment on above: Performed By: #### L IPA, BMP, CMADM #### [facility] [address] [address] [address] Mendel Herron Urea nitrogen [Mass/Vol] 17.0 mg/dL Normal 7.0-18.0 [facility] Comment on above: Performed By: #### L IPA, BMP, CMADM #### [facility] [address] [address] [address] Mendel Herron Urea nitrogen/Creatinine [Mass ratio] 20.0 mg/mg Normal [facility] Comment on above: Performed By: #### L IPA, BMP, CMADM #### [facility] [address] [address] [address] Mendel Herron TROPONIN, HIGH SENSITIVITYon 08-09-2022 HSTROP 32.5 pg/mL Normal 4.0-51.3 [facility] Comment on above: Result Comment: CUT- OFF POINTS HAVE BEEN ESTABLISHED BASED ON THE FOURTH UNIVERSAL DEFINITIONS OF MYOCARDIAL INFARCTION. THE UPPER REFERENCE LIMIT (URL) OF TROPONIN, DEFINED THE 99TH PERCENTILE OF cTnI DISTRIBUTION IN A REFERENCE POPULATION, HAS BEEN CONFIRMED THE DECISION THRESHOLD FOR RI DIAGNOSIS. Performed By: #### L IPID, CMP, T4, TSH, FT3 #### [facility] [address] [place] [address] Dr. Mendel Herron URINE MICROSCOPIC ONLYon BACTERIA NONE SEEN Normal NONE SEEN [facility] Comment on above: Performed By: #### L IPID, CMP, T4, TSH, FT3 #### [facility] [address] [place] [address] Dr. Mendel Herron Bacteria identified Cx Nom (U) NOT INDICATED Normal [facility] Comment on above: Performed By: #### L IPID, CMP, T4, TSH, FT3 #### [facility] [address] [place] [address] Dr. Mendel Herron CAST NONE SEEN Normal NONE SEEN [facility] Comment on above: Performed By: #### L IPID, CMP, T4, TSH, FT3 #### [facility] [address] [place] [address] Dr. Mendel Herron Crystals LM Nom (Urine sed) NONE SEEN Normal NONE SEEN [facility] Comment on above: Performed By: #### L IPID, CMP, T4, TSH, FT3 #### [facility] [address] [place] [address] Dr. Mendel Herron Epithelial cells LM Ql (Urine sed) NONE SEEN Normal NONE SEEN /RARE [facility] Comment on above: Performed By: #### L IPID, CMP, T4, TSH, FT3 #### [facility] [address] [place] [address] Dr. Mendel Herron MUCOUS NONE SEEN Normal NONE SEEN [facility] Comment on above: Performed By: #### L IPID, CMP, T4, TSH, FT3 #### [facility] [address] [address] [address] Mendel Herron RBC 0-2 Normal 0-2 [facility] Comment on above: Performed By: #### L IPID, CMP, T4, TSH, FT3 #### [facility] [address] [address] [address] Mendel Herron WBC NONE SEEN Normal NONE SEEN [facility] Comment on above: Performed By: #### L IPID, CMP, T4, TSH, FT3 #### [facility] [address] [address] [address] Mendel Herron XR CHEST 1 Von 08-09-2022 XR CHEST 1 V EXAM: XR CHEST 1 V INDICATION: CHEST PAIN, UNSPECIFIED. COMPARISON: Chest radiograph 08/26/2021 TECHNIQUE: Single frontal view of the chest FINDINGS: Cardiac loop recorder overlying the left chest. Borderline enlargement of the cardiac silhouette. Clear lungs. No pleural effusion or pneumothorax. No acute osseous abnormality. IMPRESSION: No acute cardiopulmonary process. Electronically authenticated by: MARY DIETZ Date: 2022-08-09 15:18 Normal [facility] H PYLORI ANTIBODY IGGon 07-20 H. PYLORI IGG ABS 0.11 Index Value Normal 0.00-0.79 [facility] Comment on above: Result Comment: Nega tive <0.80 Equivocal 0.80 - 0.89 Positive >0.89 Performed By: #### L IPID, CMP, T4, TSH, FT3 #### [facility] [address] [place] [address] Dr. Mendel Herron AMYLASEon 08-06-2022 Amylase [Catalytic activity/Vol] 57 U/L Normal 25-115 [facility] Comment on above: Performed By: #### L IPID, CMP, T4, TSH, FT3 #### [facility] [address] [address] [address] Mendel Herron CBC AUTO DIFFon 08-06-2022 BASO # 0.1 103/ul Normal 0.0-0.1 [facility] Comment on above: Performed By: #### L IPID, CMP, T4, TSH, FT3 #### [facility] [address] [place] [address] Dr. Mendel Herron Basophils/100 WBC (Bld) 0.7 % Normal 0.2-2.0 [facility] Comment on above: Performed By: #### L IPID, CMP, T4, TSH, FT3 #### [facility] [address] [place] [address] Dr. Mendel Herron EO # 0.1 103/ul Normal 0.0-0.7 [facility] Comment on above: Performed By: #### L IPID, CMP, T4, TSH, FT3 #### [facility] [address] [place] [address] Dr. Mendel Herron Eosinophils/100 WBC (Bld) 0.5 % Critically low 0.9-7.0 [facility] Comment on above: Performed By: #### L IPID, CMP, T4, TSH, FT3 #### [facility] [address] [place] [address] Dr. Mendel Herron Erythrocyte distribution width (RBC) [Ratio] 13.7 % Normal 11.0-15.0 [facility] Comment on above: Performed By: #### L IPID, CMP, T4, TSH, FT3 #### [facility] [address] [place] [address] Dr. Mendel Herron Hematocrit (Bld) [Volume fraction] 46.2 % Normal 36.0-48.0 [facility] Comment on above: Performed By: #### L IPID, CMP, T4, TSH, FT3 #### [facility] [address] [place] [address] Dr. Mendel Herron Hemoglobin (Bld) [Mass/Vol] 15.1 g/dL Normal 12.0-16.0 [facility] Comment on above: Performed By: #### L IPID, CMP, T4, TSH, FT3 #### [facility] [address] [place] [address] Dr. Mendel Herron IG # 0.06 10e3/ul Critically high 0.00-0.03 [facility] Comment on above: Performed By: #### L IPID, CMP, T4, TSH, FT3 #### [facility] [address] [place] [address] Dr. Mendel Herron IG % 0.6 % Critically high 0.0-0.5 [facility] Comment on above: Performed By: #### L IPID, CMP, T4, TSH, FT3 #### [facility] [address] [place] [address] Dr. Mendel Herrno LYMPH # 2.5 103/ul Normal 1.2-3.8 [facility] Comment on above: Performed By: #### L IPID, CMP, T4, TSH, FT3 #### [facility] [address] [place] [address] Dr. Mendel Herron Lymphocytes/100 WBC (Bld) 23.4 % Normal 20.5-60.0 [facility] [facility] Comment on above: Performed By: #### L IPID, CMP, T4, TSH, FT3 #### [facility] [address] [place] [address] Dr. Mendel Herron MANUAL DIFF REQ NO Normal [facility] Comment on above: Performed By: #### L IPID, CMP, T4, TSH, FT3 #### [facility] [address] [place] [address] Dr. Mendel Herron MCH (RBC) [Entitic mass] 31.4 pg Normal 26.7-34.0 [facility] Comment on above: Performed By: #### L IPID, CMP, T4, TSH, FT3 #### [facility] [address] [place] [address] Dr. Mendel Herron MCHC (RBC) [Mass/Vol] 32.7 g/dL Normal 29.9-35.2 [facility] Comment on above: Performed By: #### L IPID, CMP, T4, TSH, FT3 #### [facility] [address] [place] [address] Dr. Mendel Herron MCV (RBC) [Entitic vol] 96.0 fL Normal 81.0-99.0 [facility] Comment on above: Performed By: #### L IPID, CMP, T4, TSH, FT3 #### [facility] [address] [place] [address] Dr. Mendel Herron MONO # 0.6 103/ul Normal 0.3-0.8 [facility] Comment on above: Performed By: #### L IPID, CMP, T4, TSH, FT3 #### [facility] [address] [place] [address] Dr. Mendel Herron Monocytes/100 WBC (Bld) 6.0 % Normal 1.7-12.0 [facility] Comment on above: Performed By: #### L IPID, CMP, T4, TSH, FT3 #### [facility] [address] [place] [address] Dr. Mendel Herron NEUT # 7.4 103/ul Critically high 1.4-6.5 [facility] Comment on above: Performed By: #### L IPID, CMP, T4, TSH, FT3 #### [facility] [address] [place] [address] Dr. Menedl Herron Neutrophils/100 WBC (Bld) 68.8 % Normal 43.0-75.0 [facility] Comment on above: Performed By: #### L IPID, CMP, T4, TSH, FT3 #### [facility] [address] [place] [address] Dr. Mendel Herron Platelet mean volume (Bld) [Entitic vol] 9.7 fL Normal 9.5-13.5 [facility] Comment on above: Performed By: #### L IPID, CMP, T4, TSH, FT3 #### [facility] [address] [place] [address] Dr. Mendel Herron PLT 331 103/ul Normal 150-450 [facility] Comment on above: Performed By: #### L IPID, CMP, T4, TSH, FT3 #### [facility] [address] [place] [address] Dr. Mendel Herron RBC 4.81 106/ul Normal 4.20-5.40 [facility] Comment on above: Performed By: #### L IPID, CMP, T4, TSH, FT3 #### [facility] [address] [place] [address] [address] Mendel Herron WBC 10.7 103/ul Normal 4.0-11.0 [facility] Comment on above: Performed By: #### L IPID, CMP, T4, TSH, FT3 #### [facility] [address] HEAD WO CONon 08-06-2022 CT HEAD WO CON EXAMINATION: CT HEAD WO CON HISTORY: Acute sinusitis , acute headache for 2 weeks, light sensitivity COMPARISON: No relevant comparison available. TECHNIQUE: Axial CT images were obtained without IV contrast. Dose reduction techniques were achieved by using automated exposure control and/or adjustment of mA and/or kV according to patient size and/or use of iterative reconstruction technique. FINDINGS: BRAIN: No edema, hemorrhage, mass, acute infarction, or inappropriate atrophy. CSF SPACES: No hydrocephalus, subarachnoid hemorrhage, or mass. Appropriate for age. SKULL: No fracture, mass, or other significant visible lesion. SINUSES: No significant mucosal thickening or fluid on the limited views. ORBITS: No appreciable abnormality on the limited views. OTHER: Negative IMPRESSION: 1. Normal examination. Electronically authenticated by: JEAN LOPES Date: 2022-08-06 08:39 Normal [facility] LIPASEon 08-06-2022 Lipase [Catalytic activity/Vol] 125.0 U/L Normal 73.0-393.0 [facility] Comment on above: Performed By: #### L IPID, CMP, T4, TSH, FT3 #### [facility] [address] [place] [address] Dr. Mendel Herron PROF 14(COMP METB)on 023 Albumin [Mass/Vol] 3.7 g/dL Normal 3.4-5.[address] [facility] Comment on above: Performed By: #### L IPID, CMP, T4, TSH, FT3 #### [facility] [address] [place] [address] Dr. Mendel Herron Albumin/Globulin [Mass ratio] 0.9 {ratio} Normal [facility] Comment on above: Performed By: #### L IPID, CMP, T4, TSH, FT3 #### [facility] [address] [place] [address] Dr. Mendel Herron ALP [Catalytic activity/Vol] 110 U/L Normal 46-116 [facility] Comment on above: Performed By: #### L IPID, CMP, T4, TSH, FT3 #### [facility] [address] [place] [address] Dr. Mendel Herron ALT [Catalytic activity/Vol] 25 U/L Normal 14-59 [facility] Comment on above: Performed By: #### L IPID, CMP, T4, TSH, FT3 #### [facility] [address] [place] [address] Dr. Mendel Herron Anion gap [Moles/Vol] 14.0 mmol/L Normal [facility] Comment on above: Performed By: #### L IPID, CMP, T4, TSH, FT3 #### [facility] [address] [place] [address] Dr. Mendel Herron AST [Catalytic activity/Vol] 16 U/L Normal 15-37 [facility] Comment on above: Performed By: #### L IPID, CMP, T4, TSH, FT3 #### [facility] [address] [place] [address] Dr. Mendel Herron Bilirubin [Mass/Vol] 0.6 mg/dL Normal 0.2-1.0 [facility] Comment on above: Performed By: #### L IPID, CMP, T4, TSH, FT3 #### [facility] [address] [place] [address] Dr. Mendel Herron Calcium [Mass/Vol] 9.3 mg/dL Normal 8.5-10.[address] [facility] Comment on above: Performed By: #### L IPID, CMP, T4, TSH, FT3 #### [facility] [address] [place] [address] Dr. Mendel Herron Chloride [Moles/Vol] 103 mmol/L Normal 98-107 [facility] Comment on above: Performed By: #### L IPID, CMP, T4, TSH, FT3 #### [facility] [address] [address] [address] Mendel Herron CO2 [Moles/Vol] 27.3 mmol/L Normal 21.0-32.0 [facility] Comment on above: Performed By: #### L IPID, CMP, T4, TSH, FT3 #### [facility] [address] [address] [address] Mendel Herron Creatinine [Mass/Vol] 0.71 mg/dL Normal 0.55-1.02 [facility] Comment on above: Performed By: #### L IPID, CMP, T4, TSH, FT3 #### [facility] [address] [address] [address] Mendel Herron EGFR-AF SOUTH AFRICAN >60 Normal >=60 [facility] Comment on above: Performed By: #### L IPID, CMP, T4, TSH, FT3 #### [facility] [address] [place] [address] Dr. Mendel Herron EGFR-NON AF [place]FR[place] >60 Normal >=60 [facility] Comment on above: Performed By: #### L IPID, CMP, T4, TSH, FT3 #### [facility] [address] [address] [address] Mendel Herron Globulin (S) [Mass/Vol] 4.3 g/dL Normal [facility] Comment on above: Performed By: #### L IPID, CMP, T4, TSH, FT3 #### [facility] [address] [place] [address] Dr. Mendel Herron Glucose [Mass/Vol] 102 mg/dL Normal 74-[address] [facility] Comment on above: Performed By: #### L IPID, CMP, T4, TSH, FT3 #### [facility] [address] [address] [address] Mendel Herron Potassium [Moles/Vol] 4.3 mmol/L Normal 3.5-5.1 [facility] Comment on above: Performed By: #### L IPID, CMP, T4, TSH, FT3 #### [facility] [address] [place] [address] Dr. Mendel Herron Protein [Mass/Vol] 8.0 g/dL Normal 6.4-8.2 [facility] Comment on above: Performed By: #### L IPID, CMP, T4, TSH, FT3 #### [facility] [address] [place] [address] Dr. Mendel Herron Sodium [Moles/Vol] 140 mmol/L Normal 136-145 [facility] Comment on above: Performed By: #### L IPID, CMP, T4, TSH, FT3 #### [facility] [address] [address] [address] Mendel Herron Urea nitrogen [Mass/Vol] 19.0 mg/dL Critically high 7.0-18.0 [facility] Comment on above: Performed By: #### L IPID, CMP, T4, TSH, FT3 #### [facility] [address] [place] [address] Dr. Mendel Herron Urea nitrogen/Creatinine [Mass ratio] 26.8 mg/mg Normal [facility] Comment on above: Performed By: #### L IPID, CMP, T4, TSH, FT3 #### [facility] [address] [address] [address] Mendel Herron Covid-19 PCR ([facility])on 06-19 SARS-CoV-2 (COVID-19) RNA DEIRDRE+probe Ql (Unsp spec) Not detected Normal NOT DETECTED [facility] Comment on above: Result Comment: This test is not yet approved or cleared by the [place] FDA. When there are no FDA-approved or cleared tests available, and other criteria are met, FDA can make tests available under an emergency access mechanism called an Emergency Use Authorization (EUA). The EUA for this test is supported by the Brokerage Manager of Health and Human Service's (HHS's) declaration that circumstances exist to justify the emergency use of in vitro diagnostics for the detection and/or diagnosis of the virus that causes COVID-19. This EUA will remain in effect (meaning this test can be used) for the duration of the COVID-19 declaration justifying emergency of IVDs, unless it is terminated or revoked by FDA (after which the test may no longer be used). When diagnostic testing is negative, the possibility of a false negative should be considered in the context of a patient's recent exposures and the presence of clinical signs and symptoms consistent with SARS-CoV-2. Performed By: #### C VDTBH #### [facility] [address] [address] [address] Mendel Herron INFLUENZA A AND B AGon 07-16 [facility] SEE BELOW Normal [facility] Comment on above: Result Comment: Nega tive for Flu A protein angiten. Infection due to Flu A cannot be ruled out. Flu A angiten in the sample may be below the detection limit of the test. Performed By: #### L IPID, CMP, T4, TSH, FT3 #### [facility] [address] [address] [address] Mendel Herron INFLUBNEG SEE BELOW Normal [facility] Comment on above: Result Comment: Nega tive for Flu B protein antigen. Infection due to Flu B cannot be ruled out. Flu B antigen in the sample may be below the detection limit of the test. Performed By: #### L IPID, CMP, T4, TSH, FT3 #### [facility] [address] [address] [address] Mendel Herron INFLUENZA A AG Negative Normal NEGATIVE SEE COMMENT [facility] Comment on above: Performed By: #### L IPID, CMP, T4, TSH, FT3 #### [facility] [address] [address] [address] Mendel Herron INFLUENZA B AG Negative Normal NEGATIVE SEE COMMENT [facility] Comment on above: Performed By: #### L IPID, CMP, T4, TSH, FT3 #### [facility] [address] [address] [address] Mendel Herron Covid-19 PCR ([facility])on 04-19 SARS-CoV-2 (COVID-19) RNA DEIRDRE+probe Ql (Unsp spec) Not detected Normal NOT DETECTED [facility] Comment on above: Result Comment: This test is not yet approved or cleared by the [place] FDA. When there are no FDA-approved or cleared tests available, and other criteria are met, FDA can make tests available under an emergency access mechanism called an Emergency Use Authorization (EUA). The EUA for this test is supported by the [place] of Health and Human Service's (HHS's) declaration that circumstances exist to justify the emergency use of in vitro diagnostics for the detection and/or diagnosis of the virus that causes COVID-19. This EUA will remain in effect (meaning this test can be used) for the duration of the COVID-19 declaration justifying emergency of IVDs, unless it is terminated or revoked by FDA (after which the test may no longer be used). When diagnostic testing is negative, the possibility of a false negative should be considered in the context of a patient's recent exposures and the presence of clinical signs and symptoms consistent with SARS-CoV-2. Performed By: #### L IPID, CMP, T4, TSH, FT3 #### [facility] [address] [place] [address] Dr. Mendel Herron INFLUENZA A AND B [facility] 05-11 [facility] SEE BELOW Normal [facility] Comment on above: Result Comment: Nega tive for Flu A protein angiten. Infection due to Flu A cannot be ruled out. Flu A angiten in the sample may be below the detection limit of the test. Performed By: #### L IPID, CMP, T4, TSH, FT3 #### [facility] [address] [place] [address] Dr. Mendel Herr[facility] SEE BELOW Normal [facility] Comment on above: Result Comment: Nega tive for Flu B protein antigen. Infection due to Flu B cannot be ruled out. Flu B antigen in the sample may be below the detection limit of the test. Performed By: #### L IPID, CMP, T4, TSH, FT3 #### [facility] [address] [place] [address] Dr. Mendel Herron INFLUENZA A AG Negative Normal NEGATIVE SEE COMMENT [facility] Comment on above: Performed By: #### L IPID, CMP, T4, TSH, FT3 #### [facility] [address] [place] [address] Dr. Mendel Herron INFLUENZA B AG Negative Normal NEGATIVE SEE COMMENT [facility] Comment on above: Performed By: #### L IPID, CMP, T4, TSH, FT3 #### [facility] [address] [place], [place] [address] Dr. Mendel Herron INTERNAL CONTROLS Within Normal Limits Normal Wi thin Normal Limits [facility] Comment on above: Performed By: #### L IPID, CMP, T4, TSH, FT3 #### [facility] [address] [address] [address] Mendel Herron Comprehensive Metabolic Empo n 12-23-2021 Albumin [Mass/Vol] 3.7 g/dL Normal 3.2-5.5 [facility] Comment on above: Performed By: #### E BS CMP, EBS LIPID #### [facility] [address] Albumin/Globulin [Mass ratio] 1.0 {ratio} Normal [facility] Comment on above: Performed By: #### E BS CMP, EBS LIPID #### [facility] [address] [place] [id number] [place] ALP [Catalytic activity/Vol] 159 U/L High 32-92 [facility] Comment on above: Performed By: #### E BS CMP, EBS LIPID #### [facility] [address] [place] [id number] [place] ALT [Catalytic activity/Vol] 28 U/L Normal 10-60 [facility] Comment on above: Performed By: #### E BS CMP, EBS LIPID #### [facility] [address] [place] [id number] [place] AST [Catalytic activity/Vol] 27 U/L Normal 10-42 [facility] Comment on above: Performed By: #### E BS CMP, EBS LIPID #### [facility] [address] [place] [id number] [place] Bilirubin [Mass/Vol] 1.2 mg/dL Normal 0.3-1.2 [facility] Comment on above: Performed By: #### E BS CMP, EBS LIPID #### [facility] [address] [place] [id number] [place] Calcium [Mass/Vol] 9.2 mg/dL Normal 8.2-10.2 [facility] Comment on above: Performed By: #### E BS CMP, EBS LIPID #### [facility] [address] [place] [address] [place] Chloride [Moles/Vol] 100 mmol/L Normal 95-114 [facility] Comment on above: Performed By: #### E BS CMP, EBS LIPID #### [facility] [address] [place] [address] [place] CO2 [Moles/Vol] 20.6 mmol/L Low 22.0-30.0 [facility] Comment on above: Performed By: #### E BS CMP, EBS LIPID #### [address] Creatinine [Mass/Vol] 0.57 mg/dL Normal 0.44-1.03 [facility] Comment on above: Performed By: #### E BS CMP, EBS LIPID #### [address] Estimated GFR ( Ni > 60 Normal [facility] Comment on above: Result Comment: GFR estimated reference range: According to KDOQI guidelines, <60 ml/min/1.73m2 is sufficient to diagnose a patient with chronic kidney disease. Performed By: #### E BS CMP, EBS LIPID #### [address] Estimated GFR (Non- Am > 60 Normal [facility] Comment on above: Performed By: #### E BS CMP, EBS LIPID #### [facility] [address] [place] [address] [place] Globulin (S) [Mass/Vol] 3.7 g/dL Normal [facility] Comment on above: Performed By: #### E BS CMP, EBS LIPID #### [facility] [address] [place] [address] [place] Glucose [Mass/Vol] 100 mg/dL Normal 70-100 [facility] Comment on above: Performed By: #### E BS CMP, EBS LIPID #### [facility] [address] [place] [address] [place] Potassium [Moles/Vol] 3.9 mmol/L Normal 3.5-5.1 [facility] Comment on above: Performed By: #### E BS CMP, EBS LIPID #### [facility] [address] [place] [phone] [facility] Protein [Mass/Vol] 7.4 g/dL Normal 6.1-7.9 [facility] Comment on above: Performed By: #### E BS CMP, EBS LIPID #### [facility] [address] [place] [id number] [facility] Sodium [Moles/Vol] 135 mmol/L Low 136-146 [facility] Comment on above: Performed By: #### E BS CMP, EBS LIPID #### [facility] [address] Urea nitrogen [Mass/Vol] 12 mg/dL Normal 9-23 [facility] Comment on above: Performed By: #### E BS CMP, EBS LIPID #### [facility] [address] Lipid Profileon 12-23-2021 Cholesterol [Mass/Vol] 213 mg/dL High 140-200 [facility] Comment on above: Result Comment: Chol less than 200 mg/dl low risk Chol 201-239 mg/dl borderline risk Chol 240 mg/dl and greater high risk Performed By: #### E BS CMP, EBS LIPID #### [facility] [address] [place] [phone] [facility] Cholesterol in HDL [Mass/Vol] 36 mg/dL Normal 35-85 [facility] Comment on above: Result Comment: HDL CHOL ATP-III CLASSIFICATION Cardiovascular Risk HDL > or equal to 60 mg/dL LOW HDL < 40 mg/dL HIGH Performed By: #### E BS CMP, EBS LIPID #### [facility] [address] [place] [phone] [facility] Cholesterol.total/C holesterol in HDL [Mass ratio] 5.9 {ratio} Normal <5.0 [facility] Comment on above: Result Comment: PERF ORMED BY: [place] [address] PATHOLOGIST MARKETING [employer]APH[employer] SPECIALIST MARIBEL AGUILLON M.D. Performed By: #### E BS CMP, EBS LIPID #### [facility] [address] [place] [address] [place] LDL Cholesterol,Calcula lizbet 151 mg/dL High 0-100 [facility] Comment on above: Result Comment: LDL ATP III CLASSIFICATION LDL less than 100 mg/dL Optimal LDL 100-129 mg/dL Near or above optimal LDL 130-159 mg/dL Borderline high LDL 160-189 mg/dL High LDL greater than 189 mg/dL Very high Performed By: #### E BS CMP, EBS LIPID #### [facility] [address] Triglyceride w/Reflex 129 mg/dL Normal 35-149 [facility] Comment on above: Result Comment: TRIG ATP III CLASSIFICATION TRIG less than 150 mg/dL Normal TRIG 150-199 mg/dL Borderline high TRIG 200-500 mg/dL High TRIG greater than 500 mg/dL Very high Standard traceable to the Center for Disease Conrtrol and Prevention (CDC) test method. Performed By: #### E BS CMP, EBS LIPID #### [facility] [address] VLDL CHOLESTEROL 25 mg/dL Normal [facility] Comment on above: Performed By: #### E BS CMP, EBS LIPID #### [facility] [address] [facility]16 SARS-CoV-2 (COVID-19) RNA DEIRDRE+probe Ql (Unsp spec) Detected Critically abnormal NOT DETECTED [facility] Comment on above: Result Comment: This test is not yet approved or cleared by the [place] FDA. When there are no FDA-approved or cleared tests available, and other criteria are met, FDA can make tests available under an emergency access mechanism called an Emergency Use Authorization (EUA). The EUA for this test is supported by the Brokerage Manager of Health and Human Service's declaration that circumstances exist to justify the emergency use of in vitro diagnostics for the detection and/or diagnosis of the virus that causes COVID-19. This EUA will remain in effect for the duration of the COVID-19 declaration justifying emergency of IVDs, unless it is terminated or revoked by the FDA (after which the test may no longer be used). Performed By: #### C VDTBH #### [facility] [address] [place] [address] [address] Mendel Herron INFLUENZA A AND B AGon 12-02 [facility] SEE BELOW Normal [facility] Comment on above: Result Comment: Nega tive for Flu A protein angiten. Infection due to Flu A cannot be ruled out. Flu A angiten in the sample may be below the detection limit of the test. Performed By: #### L IPID, CMP, T4, TSH, FT3 #### [facility] [address] [place] [address] Dr. Mendel Herr[facility] Normal [facility] Comment on above: Result Comment: Nega tive for Flu B protein antigen. Infection due to Flu B cannot be ruled out. Flu B antigen in the sample may be below the detection limit of the test. Performed By: #### L IPID, CMP, T4, TSH, FT3 #### [facility] [address] [place] [address] Dr. Mendel Herron INFLUENZA A AG Negative Normal NEGATIVE SEE COMMENT [facility] Comment on above: Performed By: #### L IPID, CMP, T4, TSH, FT3 #### [facility] [address] [place] [address] Dr. Mendel Herron INFLUENZA B AG Negative Normal NEGATIVE SEE COMMENT [facility] Comment on above: Performed By: #### L IPID, CMP, T4, TSH, FT3 #### [facility] [address] [place] [address] Dr. Mendel Herron INTERNAL CONTROLS Within Normal Limits Normal Wi thin Normal Limits [facility] Comment on above: Performed By: #### L IPID, CMP, T4, TSH, FT3 #### [facility] [address] [place] [address] Dr. Mendel Herron Cardiovascular Lab Reporton 08-18-2021 Cardiovascular Lab Report [facility]: [id number] Department of Physician: Curtis Martinez MD Medicine Service Date: 08/18/2021 Division of Birthdate: 1970 Cardiology Room #: [facility] Cardiovascular Services [address] [place] [address] Cardiovascular Laboratory Report ATRIAL FLUTTER ABLATION AND LOOP IMPLANT PROCEDURE NOTE DATE OF PROCEDURE: 08/18/2021 PERFORMING PHYSICIAN: Dr. Curtis Martinez INDICATIONS FOR PROCEDURE: 1. History of symptomatic atrial flutter/ cardiomyopathy. CONSENT: Patient LOCATION: EP Lab PROCEDURAL SEDATION: Versed and Fentanyl. Moderate sedation was administered by the sedation nurse under my supervision and noted in the CVL log. Intraprocedural face to face sedation time: 75min. Monitoring: Cardiac telemetry, Blood pressure, continuous pulse oximetry. FLUROSCOPY: 0s PREPARATION: Preoperative antibiotics was administered. PROCEDURES PERFORMED: 1. Ultrasound guided vascular access for venous sheaths as documented below in procedure note. 2. Comprehensive EP study and intracardiac catheter ablation for typical atrial flutter. This includes right atrial recording and pacing, His bundle recording and right ventricular recording and pacing. 3. Intracardiac EP 3D mapping. 4. Coronary sinus recording and pacing to induce arrhythmia. 5. ICE imaging. 6. LOOP Implant 7. External cardioversion. PROCEDURE NOTE: 50-year-old lady with a history of atrial flutter who had come for flutter ablation. She was noted to be in atrial fibrillation on the day of admission was converted to sinus rhythm in the EP lab. The risks, benefits and alternatives of the procedure were discussed with the patient and family who agreed to proceed. Please refer to my consult note for details of the discussion and of indications. Patient was brought to the EP lab in the post absorptive state. A procedural pause was performed verifying the patient, the procedure. The right and left groins were prepped and draped in the usual sterile fashion. Preoperative antibiotics was given. Ultrasound was used to image the right and left femoral veins and it was noted to be patent and this was used for vessel entry as noted below. After infiltration with 1% lidocaine, 3 venous sheaths were placed. One on the right side and 2 on the left femoral veins since patient had right sided coronary catheterization with scar tissue from hematoma. 5000U Heparin bolus was given and bolus given subsequently to target ACT above 250. Details of catheters placed as follows. RFV: 8Fx3: ThermoCool ST/SF Bi-Directional over Vizigo sheath, ICE Catheter, CS Catheter (EZ Steer). Once catheters were in position, we decided to proceed with EP study. Patient was noted to be in atrial fibrillation and so DCCV was performed to sinus rhythm. ICE imaging ruled out SUSSY and LA thrombus. At baseline, there was echolucency in the RV suggestive of pericardial fat. There was prominent eustachian valve with a significant pouch noted at sub Eustachian level as well as toward the tricuspid valve. The heart appeared to be rotated with a normal size RA. I proceeded to perform ablation using an irrigated Thermocool ST catheter. Using ICE, the His and IVC junctions were marked with 3D CARTO mapping software. Vizigo sheath was exchanged for a short 8F sheath. Ablation was performed on the CTI line starting at the tricuspid valve aspect. I extended the ablation from the TV to the IVC aspect and while ablating in the pouch adjacent to the TV. Following the completion of the line, the patient did not have bidirectional block. There was significant challenge to attain reliable contact. I reinforced the line going medial and lateral to the pouch and encountered another steam pop when ablating close to the IVC aspect. I review ICE image again and observed for hemodynamic change but was stable. I visualized another line more medial and decided to target that for flutter ablation. Following ablation on that line, bidirectional block was achieved with repeat ablation performed at the IVC aspect to target the eustachian valve also. Medial to lateral pacing with a timing of ms and from lateral to medial was ms millisecond. EP study was then performed. AH was 86ms and HV 65mswas milliseconds respectively. CS pacing was performed from proximal CS and this revealed a Wenckebach cycle length was 340ms. AEST was then performed. AH jump was observed at 600/ms and AERP noted prior to AVNERP. VEST was then performed. V pacing revealed concentric VA conduction with VA block at 600/280ms and VERP was noted at 600/220ms millisecond. Burst atrial pacing was performed down to 250 millisecond, which did not induce any tachycardia at all. At this point, given there was no arrhythmia noted, the decision was made to stop the ab (more content not included)... Normal [facility] BILL Antinuclear Antibodieson 04-23-2021 Antinuclear Abs, IFA Negative Normal . [facility] Comment on above: Result Comment: Nega tive <1:80 Borderline 1:80 Positive >1:80 ICAP nomenclature: AC-0 For more information about Hep-2 cell patterns use ANApatterns.org, the official website for the International Consensus on Antinuclear Antibody (BILL) Patterns (ICAP). Performed at: - [facility] [address] [id number] Evaporative Cooler Installer: Ger Yen PhD, Phone: [phone] PERFORMED BY: [place] [address] PATHOLOGIST MARKETING GRAPHICS SPECIALIST MARIBEL AGUILLON M.D. Performed By: #### E SR, CRP, CBC, CREAT #### [address] #### BILL #### [facility] , C-Reactive Proteinon 021 C-Reactive Protein 0.7 mg/dL Normal 0.0-1.0 [facility] Comment on above: Result Comment: PERF ORMED BY: [place] [address] PATHOLOGIST MARKETING GRAPHICS SPECIALIST MARIBEL AGUILLON M.D. Performed By: #### E SR, CRP, CBC, CREAT #### [address] #### BILL #### [facility] , Complement C3on 04-23-2021 Complement C3 170 mg/dL High 82-167 [facility] Comment on above: Result Comment: Perf ormed at: - [facility] [address] [id number] Evaporative Cooler Installer: Ger Yen PhD, Phone: [phone] Performed By: #### A DDONUAPLUS #### [address] #### CH50, C3, C4 #### [facility] , Complement C4on 04-23-2021 Complement C4 14 mg/dL Normal 12-38 [facility] Comment on above: Performed By: #### A DDONUAPLUS #### [address] #### CH50, C3, C4 #### [facility] , Complement Total (CH50)on Complement Total (CH50) >60 Normal >41 [facility] Comment on above: Result Comment: Age Male Female 1 - 30 days Not Estab. Not Estab. 31 days - 6 months >32 >20 7 months - 17 years >39 >39 >17 years >41 >41 NOTE: The adult ( >17 years ) reference interval range is used to flag abnormals on this report. If the patient is 17 years old or younger, use the table above to determine out of range values. Performed at: [facility] [address] [id number] Evaporative Cooler Installer: Ger Yen PhD, Phone: [phone] PERFORMED BY: [place] [address] PATHOLOGIST MARKETING GRAPHICS SPECIALIST MARIBEL AGUILLON M.D. Performed By: #### E BS CMP, EBS LIPID #### [address] Complete Blood Count Auto Di ffon 04-23-2021 Basophils (Bld) [#/Vol] 0.1 10*3/uL Normal 0.0-0.2 [facility] Comment on above: Performed By: #### E SR, CRP, CBC, CREAT #### [address] #### BILL #### [facility] , Basophils/100 WBC (Bld) 0.7 % Normal . [facility] Comment on above: Performed By: #### E SR, CRP, CBC, CREAT #### [address] #### BILL #### [facility] , Eosinophils (Bld) [#/Vol] 0.1 10*3/uL Normal 0.0-0.45 [facility] Comment on above: Performed By: #### E SR, CRP, CBC, CREAT #### [facility] [address] [place] [address] #### BILL #### [facility] , Eosinophils/100 WBC (Bld) 0.5 % Normal . [facility] Comment on above: Performed By: #### E SR, CRP, CBC, CREAT #### [address] #### BILL #### [facility] , Erythrocyte distribution width (RBC) [Ratio] 18.0 % High 11.9-15.3 [facility] Comment on above: Performed By: #### E SR, CRP, CBC, CREAT #### [address] #### BILL #### [facility] , Hematocrit (Bld) [Volume fraction] 31.6 % Low 34.0-46.4 [facility] Comment on above: Performed By: #### E SR, CRP, CBC, CREAT #### [address] #### BILL #### [facility] , Hemoglobin (Bld) [Mass/Vol] 9.8 g/dL Low 11.8-15.4 [facility] Comment on above: Performed By: #### E SR, CRP, CBC, CREAT #### [place] [address] [place] #### BILL #### [facility] , Lymphocytes (Bld) [#/Vol] 1.7 10*3/uL Normal 1.00-4.8 [facility] Comment on above: Performed By: #### E SR, CRP, CBC, CREAT #### [place] [address] [place] #### BILL #### [facility] , Lymphocytes/100 WBC (Bld) 15.0 % Normal . [facility] Comment on above: Performed By: #### E SR, CRP, CBC, CREAT #### [address] #### BILL #### [facility] , MCH (RBC) [Entitic mass] 24.8 pg Normal 24.7-34.3 [facility] Comment on above: Performed By: #### E SR, CRP, CBC, CREAT #### [address] #### BILL #### [facility] , MCV (RBC) [Entitic vol] 80.1 fL Normal 80-100 [facility] Comment on above: Performed By: #### E SR, CRP, CBC, CREAT #### [address] #### BILL #### [facility] , Mean Corpuscular HGB Conc 31.0 g/dL Low 32.0-35.0 [facility] Comment on above: Performed By: #### E SR, CRP, CBC, CREAT #### [address] #### BILL #### [facility] , Monocytes (Bld) [#/Vol] 0.5 10*3/uL Normal 0.0-0.8 [facility] Comment on above: Performed By: #### E SR, CRP, CBC, CREAT #### [place] [address] [place] #### BILL #### [facility] , Monocytes/100 WBC (Bld) 4.6 % Normal . [facility] Comment on above: Performed By: #### E SR, CRP, CBC, CREAT #### [place] [address] [place] #### BILL #### [facility] , Neutrophils (Bld) [#/Vol] 9.1 10*3/uL High 1.8-7.7 [facility] Comment on above: Performed By: #### E SR, CRP, CBC, CREAT #### [facility] [address] [place] [address] #### BILL #### [facility] , Neutrophils/100 WBC (Bld) 79.2 % Normal . [facility] Comment on above: Performed By: #### E SR, CRP, CBC, CREAT #### [facility] [address] [place] [address] #### BILL #### [facility] , Nucleated RBC/100 WBC (Bld) [Ratio] 0.1 % Normal 0-0.5 [facility] Comment on above: Performed By: #### E SR, CRP, CBC, CREAT #### [facility] [address] [place] [address] #### BILL #### [facility] , Platelet mean volume (Bld) [Entitic vol] 8.3 fL Normal 6.3-10.7 [facility] Comment on above: Performed By: #### E SR, CRP, CBC, CREAT #### [facility] [address] [place] [address] #### BILL #### [facility] , Platelets (Bld) [#/Vol] 336 10*3/uL Normal 150-450 [facility] Comment on above: Performed By: #### E SR, CRP, CBC, CREAT #### [facility] [address] [place] [address] [place] #### BILL #### [facility] , RBC (Bld) [#/Vol] 3.94 10*6/uL Normal 3.60-5.00 [facility] Comment on above: Performed By: #### E SR, CRP, CBC, CREAT #### [facility] [address] [place] [address] #### BILL #### [facility] , WBC (Bld) [#/Vol] 11.5 10*3/uL High 4.5-11.0 [facility] Comment on above: Performed By: #### E SR, CRP, CBC, CREAT #### [facility] [address] [place] [address] [place] #### BILL #### [facility] , Creatinineon 04-23-2021 Creatinine [Mass/Vol] 0.75 mg/dL Normal 0.44-1.03 [facility] Comment on above: Performed By: #### E SR, CRP, CBC, CREAT #### [address] #### BILL #### [facility] , Estimated GFR ( Ni > 60 Normal [facility] Comment on above: Result Comment: GFR estimated reference range: According to KDOQI guidelines, <60 ml/min/1.73m2 is sufficient to diagnose a patient with chronic kidney disease. Performed By: #### E SR, CRP, CBC, CREAT #### [address] #### BILL #### [facility] , Estimated GFR (Non- Am > 60 Normal [facility] Comment on above: Performed By: #### E SR, CRP, CBC, CREAT #### [address] #### BILL #### [facility] , Dipstick and Microscopicon Appearance (U) Clear Normal Clear [facility] Comment on above: Order Comment: Name Collection Type:: Clean-Voided Midstream Performed By: #### A DDONUAPLUS #### [address] #### CH50, C3, C4 #### [facility] , Bacteria,Urine None Seen Normal None Seen [facility] Comment on above: Order Comment: Name Collection Type:: Clean-Voided Midstream Performed By: #### A DDONUAPLUS #### [address] #### CH50, C3, C4 #### [facility] , Bilirubin,Urine Negative Normal Negative [facility] Comment on above: Order Comment: Name Collection Type:: Clean-Voided Midstream Performed By: #### A DDONUAPLUS #### [address] #### CH50, C3, C4 #### [facility] , Color (U) Yellow Normal Yellow [facility] Comment on above: Order Comment: Name Collection Type:: Clean-Voided Midstream Performed By: #### A DDONUAPLUS #### [address] #### CH50, C3, C4 #### [facility] , Glucose Ql (U) 100 mg/dL High Normal [facility] Comment on above: Order Comment: Name Collection Type:: Clean-Voided Midstream Performed By: #### A DDONUAPLUS #### [address] #### CH50, C3, C4 #### [facility] , Hyaline Casts,Urine 0-8 Normal 0-8 [facility] Comment on above: Order Comment: Name Collection Type:: Clean-Voided Midstream Result Comment: PERF ORMED BY: [place] [address] PATHOLOGIST MARKETING GRAPHICS SPECIALIST MARIBEL AGUILLON M.D. Performed By: #### A DDONUAPLUS #### [address] #### CH50, C3, C4 #### [facility] , Ketones Ql (U) Negative Normal Negative [facility] Comment on above: Order Comment: Name Collection Type:: Clean-Voided Midstream Performed By: #### A DDONUAPLUS #### [address] #### CH50, C3, C4 #### [facility] , Leukocyte esterase Test strip Ql (U) Negative Normal Negative [facility] Comment on above: Order Comment: Name Collection Type:: Clean-Voided Midstream Performed By: #### A DDONUAPLUS #### [address] #### CH50, C3, C4 #### [facility] , Nitrite,Urine Negative Normal Negative [facility] Comment on above: Order Comment: Name Collection Type:: Clean-Voided Midstream Performed By: #### A DDONUAPLUS #### [address] #### CH50, C3, C4 #### [facility] , Occult Blood,Urine Negative Normal Negative [facility] Comment on above: Order Comment: Name Collection Type:: Clean-Voided Midstream Performed By: #### A DDONUAPLUS #### [address] #### CH50, C3, C4 #### [facility] , pH (U) 5.0 [pH] Normal 5.0-9.0 [facility] Comment on above: Order Comment: Name Collection Type:: Clean-Voided Midstream Performed By: #### A DDONUAPLUS #### [facility] [address] [place] [address] #### CH50, C3, C4 #### [facility] , Protein,Urine Negative Normal Negative [facility] Comment on above: Order Comment: Name Collection Type:: Clean-Voided Midstream Performed By: #### A DDONUAPLUS #### [address] #### CH50, C3, C4 #### [facility] , RBC,Urine None Seen Normal 0-4 [facility] Comment on above: Order Comment: Name Collection Type:: Clean-Voided Midstream Performed By: #### A DDONUAPLUS #### [address] #### CH50, C3, C4 #### [facility] , Specificy [place],Urine 1.009 Normal 1.001-1.030 [facility] Comment on above: Order Comment: Name Collection Type:: Clean-Voided Midstream Performed By: #### A DDONUAPLUS #### [address] #### CH50, C3, C4 #### [facility] , Squamous Epithelial Cell,Urine 0-1 Normal 0-2 [facility] Comment on above: Order Comment: Name Collection Type:: Clean-Voided Midstream Performed By: #### A DDONUAPLUS #### [address] #### CH50, C3, C4 #### [facility] , Urobilinogen,Urine Normal Normal Normal [facility] Comment on above: Order Comment: Name Collection Type:: Clean-Voided Midstream Performed By: #### A DDONUAPLUS #### [address] #### CH50, C3, C4 #### [facility] , WBC LM.HPF (Urine sed) [#/Area] 0 /[HPF] Normal 0-4 [facility] Comment on above: Order Comment: Name Collection Type:: Clean-Voided Midstream Performed By: #### A DDONUAPLUS #### [address] #### CH50, C3, C4 #### [facility] , Erythrocyte Sedimentation Ra ryley 04-23-2021 ESR (Bld) [Velocity] 55 mm/h High 0-29 [facility] Comment on above: Result Comment: PERF ORMED BY: [place] [address] PATHOLOGIST MARKETING GRAPHICS SPECIALIST MARIBEL AGUILLON M.D. Performed By: #### E SR, CRP, CBC, CREAT #### [place] [address] [place] #### BILL #### [facility] , BASIC METABOLIC PANELon 03-20 Calcium [Mass/Vol] 8.7 mg/dL Normal 8.6-10.3 [facility] Comment on above: Order Comment: No: D o not add to previous draw Performed By: #### 5 7307, 96581 #### [facility] [address] [facility] [place] [address], [facility] Chloride [Moles/Vol] 97 mmol/L Low 98-107 [facility] Comment on above: Order Comment: No: D o not add to previous draw Performed By: #### 5 7307, 28619 #### [facility] [address] [facility] [place] [address], [place] CO2 [Moles/Vol] 36 mmol/L High 21-31 [facility] Comment on above: Order Comment: No: D o not add to previous draw Performed By: #### 5 7307, 71040 #### [facility] [address] [place] [address], [place] Creatinine [Mass/Vol] 0.74 mg/dL Normal 0.60-1.20 [facility] Comment on above: Order Comment: No: D o not add to previous draw Performed By: #### 5 7307, 17974 #### [facility] [address] [place] [address], [place] GFR/1.73 sq M.predicted among blacks MDRD (S/P/Bld) [Vol rate/Area] mL/min/{1.73_m2} Normal >60 [facility] Comment on above: Order Comment: No: D o not add to previous draw Performed By: #### 5 7307, 36041 #### [facility] [address] [place] [address], [place] GFR/1.73 sq M.predicted among non-blacks MDRD (S/P/Bld) [Vol rate/Area] mL/min/{1.73_m2} Normal >60 [facility] Comment on above: Order Comment: No: D o not add to previous draw Performed By: #### 5 7307, 35037 #### [facility] [address] [place] [address], [place] Glucose [Mass/Vol] 123 mg/dL High 70-100 [facility] Comment on above: Order Comment: No: D o not add to previous draw Performed By: #### 5 73, 89209 #### [facility] [address] [place] [address], [place] Potassium [Moles/Vol] 4.3 mmol/L Normal 3.5-5.1 [facility] Comment on above: Order Comment: No: D o not add to previous draw Performed By: #### 5 7307, 21380 #### [facility] [address] [place] [address], [place] Sodium [Moles/Vol] 139 mmol/L Normal 136-145 [facility] Comment on above: Order Comment: No: D o not add to previous draw Performed By: #### 5 7307, 20221 #### [facility] [address] [place] [address], [place] Urea nitrogen [Mass/Vol] 24 mg/dL Normal 7-25 [facility] Comment on above: Order Comment: No: D o not add to previous draw Performed By: #### 5 7307, 02646 #### [facility] [address] [place] [address], [place] CBC COMPLETE BLOOD COUNTon 0 04-11-2021 Erythrocyte distribution width (RBC) [Ratio] 16.8 % High 11.5-15.0 [facility] Comment on above: Order Comment: No: D o not add to previous draw Performed By: #### 5 73, 02281 #### [facility] [address] [place] [address], [facility] Hematocrit (Bld) [Volume fraction] 29.7 % Low 36.0-45.0 [facility] Comment on above: Order Comment: No: D o not add to previous draw Performed By: #### 5 7307, 18327 #### [facility] [address] [facility] [place] [address], [facility] Hemoglobin (Bld) [Mass/Vol] 8.9 g/dL Low 12.0-15.0 [facility] Comment on above: Order Comment: No: D o not add to previous draw Performed By: #### 5 73, 29237 #### [facility] [address] [facility] [place] [address], [facility] MCH (RBC) [Entitic mass] 25.4 pg Low 27.0-33.0 [facility] Comment on above: Order Comment: No: D o not add to previous draw Performed By: #### 5 7307, 71110 #### [facility] [address] [place] [address], [facility] MCHC (RBC) [Mass/Vol] 30.0 g/dL Low 32.0-35.0 [facility] Comment on above: Order Comment: No: D o not add to previous draw Performed By: #### 5 7307, 86522 #### [facility] [address] [place] [id number], [facility] MCV (RBC) [Entitic vol] 84.9 fL Normal 82.0-98.0 [facility] Comment on above: Order Comment: No: D o not add to previous draw Performed By: #### 5 7307, 38100 #### [facility] [address] [facility] [place] [address], [facility] Nucleated RBC/100 WBC (Bld) [Ratio] 0 % Normal 0-0 [facility] Comment on above: Order Comment: No: D o not add to previous draw Performed By: #### 5 7307, 36726 #### [facility] [address] [facility] [place] [address], [facility] PLAT CNT 446 10*3/uL High 150-400 [facility] Comment on above: Order Comment: No: D o not add to previous draw Performed By: #### 5 7307, 00595 #### [facility] [address] [facility] [place] [address], [facility] RBC (Bld) [#/Vol] 3.50 10*6/uL Low 3.80-5.00 [facility] Comment on above: Order Comment: No: D o not add to previous draw Performed By: #### 5 7307, 85160 #### [facility] [address] [facility] [place] [address], [facility] WBC (Bld) [#/Vol] 16.54 10*3/uL High 4.00-10.60 [facility] Comment on above: Order Comment: No: D o not add to previous draw Performed By: #### 5 7307, 95374 #### [facility] [address] Cardiovascular Lab Reporton 04-11-2021 Cardiovascular Lab Report [facility] Patient Name: Antonio Formerly [facility] S MR #: [id number] Department of Physician: London Rodas M.D. Division of Service Date: 04/11/2021 Cardiology Birthdate: 1970 Adult Cardiovascular Room #: 5AB [id number] [place] [address] Cardiovascular Laboratory Report PROCEDURE PERFORMED: Transesophageal echocardiogram and cardioversion. INDICATION: Atrial flutter. FELLOW: Dunia Sierra MD PROCEDURE IN DETAIL: Informed consent was obtained from the patient after explaining the indication, risks, benefits, as well as alternatives. The patient understood and agreed, and signed the consent form. The patient was brought to the laborer [facility] and transesophageal echocardiogram was performed, under conscious sedation. The patient obtained a total of 4 mg of Versed and 50 mcg of fentanyl for transesophageal echo and the patient required additional 2 mg of Versed and 125 mcg of fentanyl prior to cardioversion. The transesophageal echo did not show any thrombus in the left atrial appendage. Full NHUNG report is elsewhere. After transesophageal echocardiogram, a synchronized biphasic cardioversion was done at 360 joules of energy. The patient was successfully converted to sinus rhythm and postprocedure EKG was done to confirm. No complications throughout the procedure. Electronically Signed by: Xiao Torres M.D. 04/28/2021 09:52 A Xiao Torres M.D. I was present for the entire procedure. Date Dict: 04/11/2021/12:10 P/Dunia Sierra MD Date Trans: 04/11/2021 12:53 P/marixa [id number] cc: Phillip Ann M.D. [address] [id number] Normal [facility] MAGNESIUM BLOODon 04-11-2021 Magnesium [Mass/Vol] 2.3 mg/dL Normal 1.9-2.7 [facility] Comment on above: Order Comment: No: D o not add to previous draw Performed By: #### 5 7307, 03354 #### [facility] [address] POC GLUCOSE LABon 04-11-2021 Glucose [Mass/Vol] 124 mg/dL High 70-100 [facility] Comment on above: Performed By: #### 5 7307, 74465 #### [facility] [address] [facility]. [address] TROPONIN-Ion 04-11-2021 Troponin I.cardiac [Mass/Vol] 0.06 ng/mL High 0.00-0.04 [facility] Comment on above: Order Comment: No: D o not add to previous draw Result Comment: REFE RENCE RANGES: 0.00 - 0.04 ng/ml NORMAL 0.05 - 0.50 ng/ml INDETERMINATE > 0.50 ng/ml CONSISTENT WITH AN M.I. Performed By: #### 5 [id number], [id number] #### [facility] [address] *BLOOD CULTUREon 04-10-2021 *BLOOD CULTURE Clinical Report: (D) Specimen: BLOOD CULTURE Collected: 04/10/2021 09:50 Status: Final Last Updated: 04/15/2021 11:28 (1) Right hand CULT RES (Final) No Growth Day 5 Normal [facility] Comment on above: Order Comment: No: D o not add to previous draw Performed By: #### 5 7307, 29946 #### [facility] [address] *BLOOD CULTURE Clinical Report: (D) Specimen: BLOOD CULTURE Collected: 04/10/2021 09:50 Status: Final Last Updated: 04/15/2021 11:28 (1) Left hand CULT RES (Final) No Growth Day 5 Normal [facility] Comment on above: Order Comment: No: D o not add to previous draw Performed By: #### 5 7307, 15092 #### [facility] 3000 [facility]. [address] *SARS-CoV-2 COVID-19on 04-10 SARS-CoV-2 (COVID-19) RNA DEIRDRE+probe Ql (Unsp spec) Not detected Normal Not Detected [facility] Comment on above: Order Comment: No: D o not add to previous draw Performed By: #### 5 7307, 12625 #### [facility] [address] [place] [address], [facility] APTTon 04-10-2021 aPTT Coag (Bld) [Time] 23.4 s Low 25.0-35.0 [facility] Comment on above: Order Comment: No: D o not add to previous draw Result Comment: ALL RESULTS MUST BE INTERPRETED WITH RESPECT TO BLOOD DRAWING ARTIFACT OR DILUTION ERROR OF ANTICOAGULANT AT THE TIME OF SAMPLING. THE APTT SHOULD NOT BE USED TO MONITOR UNFRACTIONATED HEPARIN THERAPY, THIS LABORATORY NO LONGER HAS AN ESTABLISHED THERAPEUTIC RANGE BASED ON THE APTT. IT IS RECOMMENDED THAT THE UFH - HEPARIN ASSAY (ANTI-XA ACTIVITY) BE USED FOR THIS PURPOSE. Performed By: #### 5 7307, 03797 #### [facility] [address] [place] [address], [facility] aPTT Coag (Bld) [Time] 23.2 s Low 25.0-35.0 [facility] Comment on above: Order Comment: No: D o not add to previous draw Result Comment: ALL RESULTS MUST BE INTERPRETED WITH RESPECT TO BLOOD DRAWING ARTIFACT OR DILUTION ERROR OF ANTICOAGULANT AT THE TIME OF SAMPLING. THE APTT SHOULD NOT BE USED TO MONITOR UNFRACTIONATED HEPARIN THERAPY, THIS LABORATORY NO LONGER HAS AN ESTABLISHED THERAPEUTIC RANGE BASED ON THE APTT. IT IS RECOMMENDED THAT THE UFH - HEPARIN ASSAY (ANTI-XA ACTIVITY) BE USED FOR THIS PURPOSE. Performed By: #### 5 7307, 33182 #### [facility] [address] BASIC METABOLIC PANELon 03-20 Calcium [Mass/Vol] 8.6 mg/dL Normal 8.6-10.3 [facility] Comment on above: Order Comment: No: D o not add to previous draw Performed By: #### 1 0070, 09595, 21139 #### [facility] [address] [place] [address], [facility] Chloride [Moles/Vol] 99 mmol/L Normal 98-107 [facility] Comment on above: Order Comment: No: D o not add to previous draw Performed By: #### 1 0, 73505, 47403 #### [facility] [address] [place] [address], [place] CO2 [Moles/Vol] 32 mmol/L High 21-31 [facility] Comment on above: Order Comment: No: D o not add to previous draw Performed By: #### 1 0, 13100, 88019 #### [facility] [address] [place] [address], [place] Creatinine [Mass/Vol] 0.84 mg/dL Normal 0.60-1.20 [facility] Comment on above: Order Comment: No: D o not add to previous draw Performed By: #### 1 0, 24797, 24743 #### [facility] [address] [place] [address], [place] GFR/1.73 sq M.predicted among blacks MDRD (S/P/Bld) [Vol rate/Area] mL/min/{1.73_m2} Normal >60 [facility] Comment on above: Order Comment: No: D o not add to previous draw Performed By: #### 1 0, 84870, 70871 #### [facility] [address] [place] [address], [place] GFR/1.73 sq M.predicted among non-blacks MDRD (S/P/Bld) [Vol rate/Area] mL/min/{1.73_m2} Normal >60 [facility] Comment on above: Order Comment: No: D o not add to previous draw Performed By: #### 1 0, 24033, 07749 #### [facility] [address] [place] [address], [place] Glucose [Mass/Vol] 117 mg/dL High 70-100 [facility] Comment on above: Order Comment: No: D o not add to previous draw Performed By: #### 1 0, 48513, 88661 #### [facility] [address] [place] [address], [facility] Potassium [Moles/Vol] 3.9 mmol/L Normal 3.5-5.1 [facility] Comment on above: Order Comment: No: D o not add to previous draw Performed By: #### 1 0070, 51583, 17802 #### [facility] [address] [place] [id number], [facility] Sodium [Moles/Vol] 139 mmol/L Normal 136-145 [facility] Comment on above: Order Comment: No: D o not add to previous draw Performed By: #### 1 0070, 31629, 77631 #### [facility] 3000 [facility] [place] [address], [facility] Urea nitrogen [Mass/Vol] 19 mg/dL Normal 7-25 [facility] Comment on above: Order Comment: No: D o not add to previous draw Performed By: #### 1 0070, 54232, 45462 #### [facility] 3000 [facility] [address] [facility]. [address] BNP (B-TYPE NATRIURETIC PEPT MARILYN)on 04-10-2021 Natriuretic peptide B (Bld) [Mass/Vol] 259 pg/mL High 0-100 [facility] Comment on above: Order Comment: No: D o not add to previous draw Result Comment: Give n the appropriate clinical setting a BNP result of >100 pg/mL indicates congestive heart failure. Performed By: #### 5 7307, 68989 #### [facility] [address] [place] [address], [facility] CBC W/DIFFon 04-10-2021 ABS IMM GRANS 1.1 10*3/uL High 0.0-0.2 [facility] Comment on above: Performed By: #### 5 0103 #### [facility] [address] [place] [id number], [facility] ABS NEUTROPHILS 9.6 10*3/uL High 1.6-7.6 [facility] Comment on above: Performed By: #### 5 3 #### [facility] [place] [address] ANISO MODERATE Normal [facility] Comment on above: Performed By: #### 5 3 #### [facility] 3000 [facility] [place] [address], [facility] Basophils (Bld) [#/Vol] 0.1 10*3/uL Normal 0.0-0.2 [facility] Comment on above: Performed By: #### 3 #### [facility] [address] Basophils/100 WBC (Bld) 0.7 % Normal 0.0-1.0 [facility] Comment on above: Performed By: #### 102 #### [facility] 3000 [facility] [place] [address], [facility] Eosinophils (Bld) [#/Vol] 0.1 10*3/uL Normal 0.0-0.5 [facility] Comment on above: Performed By: #### 5 3 #### [facility] [address] [place] [address], [facility] Eosinophils/100 WBC (Bld) 0.4 % Normal 0.0-6.0 [facility] Comment on above: Performed By: #### 5 3 #### [facility] [address] Erythrocyte distribution width (RBC) [Ratio] 16.5 % High 11.5-15.0 [facility] Comment on above: Performed By: #### 5 3 #### [facility] 3000 [facility]. [address] Hematocrit (Bld) [Volume fraction] 31.2 % Low 36.0-45.0 [facility] Comment on above: Performed By: #### 5 0103 #### [facility] [address] [place] [address], [facility] Hemoglobin (Bld) [Mass/Vol] 9.0 g/dL Low 12.0-15.0 [facility] Comment on above: Performed By: #### 5 3 #### [facility] [address] [place] [address], [facility] HYPO SLIGHT Normal [facility] Comment on above: Performed By: #### 3 #### [facility] [address] [place] [address], [facility] IMMATURE GRANS 6.8 % High 0.0-1.0 [facility] Comment on above: Performed By: #### 102 #### [facility] [address] [facility] [place] [address], [facility] Lymphocytes (Bld) [#/Vol] 4.4 10*3/uL High 1.2-4.0 [facility] Comment on above: Performed By: #### 3 #### [facility] 3000 [facility] [place] [address], [facility] Lymphocytes/100 WBC (Bld) 26.4 % Normal 20.0-45.0 [facility] Comment on above: Performed By: #### 3 #### [facility] [address] [place] [id number], [facility] MCH (RBC) [Entitic mass] 25.3 pg Low 27.0-33.0 [facility] Comment on above: Performed By: #### 3 #### [facility] [address] [place] [id number], [facility] MCHC (RBC) [Mass/Vol] 28.8 g/dL Low 32.0-35.0 [facility] Comment on above: Performed By: #### 102 #### [facility] [address] [place] [address], [facility] MCV (RBC) [Entitic vol] 87.6 fL Normal 82.0-98.0 [facility] Comment on above: Performed By: #### 5 0103 #### [facility] [address] [place] [id number], [facility] Monocytes (Bld) [#/Vol] 1.3 10*3/uL High 0.1-1.0 [facility] Comment on above: Performed By: #### 5 0103 #### [facility] [address] [place] [address], [facility] MONOS 7.6 % Normal 5.0-12.0 [facility] Comment on above: Performed By: #### 5 3 #### [facility] 3000 [facility] [place] [address], [facility] Neutrophils/100 WBC (Bld) 58.1 % Normal 40.0-72.0 [facility] Comment on above: Performed By: #### 5 102 #### [facility] 3000 [facility] [place] [address], [facility] Nucleated RBC/100 WBC (Bld) [Ratio] 1 % High 0-0 [facility] Comment on above: Performed By: #### 5 102 #### [facility] [address] [facility] [place] [address], [facility] PLAT CNT 483 10*3/uL High 150-400 [facility] Comment on above: Performed By: #### 3 #### [facility] [address] [facility] [place] [facility] [place] [id number], [facility] POIK SLIGHT Normal [facility] Comment on above: Performed By: #### 102 #### [facility] [address] [facility] [place] [facility] [place] [id number], [facility] POLY SLIGHT Normal [facility] Comment on above: Performed By: #### 3 #### [facility] 3000 [facility] [place] [address], [facility] RBC (Bld) [#/Vol] 3.56 10*6/uL Low 3.80-5.00 [facility] Comment on above: Performed By: #### 5 0103 #### [facility] [address] [place] [address], [place] WBC (Bld) [#/Vol] 16.54 10*3/uL High 4.00-10.60 [facility] Comment on above: Performed By: #### 5 0103 #### [facility] [address] [place] [address], [facility] LIPID PROFILEon 04-10-2021 Cholesterol [Mass/Vol] 161 mg/dL Normal 120-200 [facility] Comment on above: Result Comment: CHOL ESTEROL REFERENCE RANGE: 20 YEARS AND OLDER CARDIOVASCULAR RISK Less than 200 mg/dl Low Risk 200 to 239 mg/dl Borderline Risk 240 mg/dl and greater High Risk Performed By: #### 3 1569, 74693, 68449 #### [facility] [address] [facility] [place] [address], [place] Cholesterol in HDL [Mass/Vol] 61 mg/dL Normal 23-92 [facility] Comment on above: Result Comment: Slig ht variation in normal range could be due to gender and/or age. HDL CHOLESTEROL REFERENCE RANGE: 20 years and older Cardiovascular Risk > or =60 mg/dL Desirable 40 TO 59 mg/dL Low Risk <40 mg/dL High Risk Performed By: #### 3 1569, 32595, 10637 #### [facility] [address] [place] [address], [place] Cholesterol in LDL [Mass/Vol] 28 mg/dL Normal 0-130 [facility] Comment on above: Result Comment: LDL IS A CALCULATION LDL IS ONLY VALID IF THE TRIG IS LESS THAN 400. Performed By: #### 3 1569, 28369, 58116 #### [facility] [address] [place] [address], [place] Cholesterol.total/C holesterol in HDL [Mass ratio] 2.6 {ratio} Normal .0-4.5 [facility] Comment on above: Performed By: #### 3 1569, 32989, 35325 #### [facility] [address] [place] [address], [facility] NON-HDL CHOLESTEROL 100 mg/dL Normal [facility] Comment on above: Performed By: #### 3 1569, 67743, 55670 #### [facility] [address] [place] [address], [facility] Triglyceride [Mass/Vol] 362 mg/dL High 40-149 [facility] Comment on above: Result Comment: TRIG LYCERIDE REFERENCE RANGE: 20 YEARS AND OLDER CARDIOVASCULAR RISK LESS THAN 150 mg/dl LOW RISK 150 TO 199 mg/dl BORDERLINE RISK 200 mg/dl AND GREATER HIGH RISK Performed By: #### 3 1569, 65436, 51076 #### [facility] [address] [place] [address], [facility] VLDL CHOL 72 mg/dL High 0-40 [facility] Comment on above: Performed By: #### 3 1569, 71750, 45184 #### [facility] 3000 [facility] [place] [address], [facility] MAGNESIUM BLOODon 04-10-2021 Magnesium [Mass/Vol] 2.4 mg/dL Normal 1.9-2.7 [facility] Comment on above: Order Comment: No: D o not add to previous draw Performed By: #### 1 0070, 60290, 34163 #### [facility] [address] [place] [address], [facility] POC GLUCOSE LABon 04-10-2021 Glucose [Mass/Vol] 350 mg/dL High 70-100 [facility] Comment on above: Performed By: #### 5 7307, 73766 #### [facility] [address] [place] [address], [place] Glucose [Mass/Vol] 249 mg/dL High 70-100 [facility] Comment on above: Performed By: #### 5 7307, 12860 #### [facility] [address] [place] [address], [facility] PROCALCITONINon 04-10-2021 PROCALCITONIN 0.09 ng/mL Normal 0.00-0.10 [facility] Comment on above: Order Comment: No: D o not add to previous draw Result Comment: Susp ected Lower Respiratory Tract Infection: 0.1-0.25ng/mL- Low likelihood for bacterial infection;Antibiotics discouraged.* >0.25ng/mL- Increased likelihood bacterial infection;Antibiotics encouraged. Suspected Sepsis: Strongly consider initiating antibiotics in all unstable patients. 0.1-0.5ng/mL- Low likelihood for sepsis; Antibiotics discouraged.* >0.5ng/mL- Increased likelihood sepsis; Antibiotics encouraged. >2.0ng/mL- High risk of sepsis/septic shock; Antibiotics strongly encouraged. *Recommend retesting PCT within 6-12hours if clinically indicated and initial PCT<0.5ng/mL Performed By: #### 5 7307, 41274 #### [facility] [address] [place] [address], [facility] PROTHROMBIN TIMEon INR Coag (PPP) [Relative time] 1.07 {INR} Normal 0.91-1.16 [facility] Comment on above: Order Comment: No: D o not add to previous draw Result Comment: ACCC P RECOMMENDED INR FOR WARFARIN THERAPY ------ ------- CONDITION INR PROPHYLAXIS OF VENOUS THROMBOSIS 2-3 (HIGH-RISK SURGERY) TREATMENT OF VENOUS THROMBOSIS 2-3 TREATMENT OF PULMONARY EMBOLISM 2-3 PREVENTION OF SYSTEMIC EMBOLISM: 2-3 ACUTE MYOCARDIAL INFARCTION TISSUE HEART VALVES VALVULAR HEART DISEASE ATRIAL FIBRILLATION RECURRENT SYSTEMIC EMBOLISM MECHANICAL HEART VALVE 2.5-3.5 FROM: ORAL ANTICOAGULANTS. MECHANISM OF ACTION, CLINICAL EFFECTIVENESS, AND OPTIMAL THERAPEUTIC RANGE. CHEST 1995;108:231S-246S. Performed By: #### 5 7307, 52119 #### [facility] [address] PT Coag (PPP) [Time] 13.9 s Normal 12.3-14.8 [facility] Comment on above: Order Comment: No: D o not add to previous draw Result Comment: ALL RESULTS MUST BE INTERPRETED WITH RESPECT TO BLOOD DRAWING ARTIFACT OR DILUTION ERROR OF ANTICOAGULANT AT THE TIME OF SAMPLING. Performed By: #### 5 7307, 56703 #### [facility] 3000 [facility]. [address] TROPONIN-Ion 04-10-2021 Troponin I.cardiac [Mass/Vol] 0.07 ng/mL High 0.00-0.04 [facility] Comment on above: Order Comment: No: D o not add to previous draw Result Comment: REFE RENCE RANGES: 0.00 - 0.04 ng/ml NORMAL 0.05 - 0.50 ng/ml INDETERMINATE > 0.50 ng/ml CONSISTENT WITH AN M.I. Performed By: #### 3 0659, 10606, 95288 #### [facility] [address] Troponin I.cardiac [Mass/Vol] 0.07 ng/mL High 0.00-0.04 [facility] Comment on above: Order Comment: No: D o not add to previous draw Result Comment: REFE RENCE RANGES: 0.00 - 0.04 ng/ml NORMAL 0.05 - 0.50 ng/ml INDETERMINATE > 0.50 ng/ml CONSISTENT WITH AN M.I. Performed By: #### 1 0070, 72048, 30496 #### [facility] 3000 [facility]. [address] TSH3 WITH REFLEX FT4on 04-10 TSH 3RD GENERATION 0.95 uIU/mL Normal 0.34-5.60 [facility] Comment on above: Order Comment: Yes: Add to Previous draw if able Performed By: #### 3 1569 #### [facility] 3000 [facility]. [address] TSH 3RD GENERATION 3.12 uIU/mL Normal 0.34-5.60 [facility] Comment on above: Performed By: #### 3 1569, 43374, 24449 #### [facility] 3000 [facility]. [address] UFH HEPARIN ASSAYon 04-10-20 21 UNFRACTIONATED HEPARIN >1.00 Critically high 0.30-0.70 [facility] Comment on above: Result Comment: Resu lt checked and called. Accurately read back by Haven Avila RN at 1122 per RN patient may have previously been given Eliquis. UFH = 1.36 for pharmacy use Rivaroxaban and Apixaban will interfere with the anti Xa assay used to monitor UFH and LMWH. Performed By: #### 5 7307, 92536 #### [facility] 3000 [facility]. [address] Cardiovascular Lab Reporton 01-30-2021 Cardiovascular Lab Report [facility] MR #: [id number] Department of Physician: London Ross M.D. Division of Service Date: 01/30/2021 Cardiology Birthdate: 1970 Adult Cardiovascular Room #: [place] [address] [address] [place] [id number] Cardiovascular Laboratory Report FINAL IMPRESSIONS: 1. Moderately elevated right-sided heart pressures. 2. Moderately elevated pulmonary capillary wedge pressure. 3. 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 4. Mild to moderate systemic hypertension. 5. Normal cardiac output/cardiac index. RECOMMENDATIONS: 1. Will increase the patient's Lasix to 40 mg p.o. b.i.d. 2. A basic metabolic panel will be checked in 72 hours. 3. Aggressive cardiovascular risk factor modification. 4. Consider additional etiologies for the patient's shortness of breath namely pulmonary. 5. Follow up with Cardiology in the [facility] Cardiology office in the next 2 to 3 weeks. 6. Follow up with Dr. Ann as scheduled. PROCEDURES: Ultrasound-guided access to the right internal jugular vein, right heart catheterization. METHODS: After risks, benefits, and alternatives were explained, written informed consent was obtained. The patient was prepped and draped in usual sterile fashion over the right neck. Using 1% lidocaine solution, local infiltration anesthesia was achieved. Using a modified Seldinger technique, a micropuncture kit and under ultrasound guidance access to the right internal jugular vein was obtained. A 6-Tamazight glide sheath was inserted without difficulty. A Murray catheter was used for right heart catheterization measuring pressures in the right atrium, right ventricle, pulmonary artery, and pulmonary capillary wedge positions. Oxygen saturations were obtained and cardiac output/cardiac index was calculated using the Luis principle. The Murray catheter was removed. The jugular sheath was removed with application of manual pressure to achieve optimal hemostasis. Overall, the patient tolerated the procedure well. There were no overt complications. She was to be transferred to the holding area in stable condition. FINDINGS: Hemodynamics. RA 14. RV 47/8, 20. PA 47/14 (32). PCWP 24. TPG 8. AO 140/88. Cardiac output 6.19/cardiac index 3.09. INDICATIONS: Exertional shortness of breath, COPD and heart failure with preserved ejection fraction (HFpEF). Electronically Signed by: Cassy Bear M.D. 01/31/2021 01:45 P Cassy Bear M.D. Date Dict: 01/30/2021/02:19 P/Cassy Bear M.D. Date Trans: 01/30/2021 02:48 P/mmo [id number] cc: Phillip Ann M.D. [address], [facility] [id number] [facility] Vital Signs Date Time Vital Sign Value Performing Clinician Faci nydia 09-15-2022 15:24-0500 Blood Pressure Location [facility] 09-15-2022 15:24-0500 Diastolic blood pressure 78 mm[Hg] [facility] 09-15-2022 15:24-0500 Heart rate 70 /min [facility] [place] 09-15-2022 15:24-0500 Respiratory rate 16 /min [facility] 09-15-2022 15:24-0500 Systolic blood pressure 116 mm[Hg] [facility] [place] Encounters Encounter Date Encounter Type Care Provider Facility Start: 05-05-2023 End: 05-05-2023 ambulatory [facility] Start: 01-27-2023 End: 01-27-2023 ambulatory [facility] Start: 11-17-2022 End: 11-17-2022 ambulatory EMILY ZHONG . Facility:[facility] Start: 10-28-2022 End: 10-28-[address] PHILLIP ANN . Facility:[facility] Start: 09-24-2022 End: 09-24-[address] PHILLIP ANN . Facility: Start: 09-15-2022 End: 09-16-2022 ambulatory Juan Miguel SALINAS Facility: [facility] Start: 09-15-2022 End: 09-15-2022 Patient encounter procedure Juan Miguel SALINAS General Surgery Nill/Juan M Red Start: 09-09-2022 End: 09-10-[address] PHILLIP ANN . Facility:[facility] Start: 08-25-2022 ambulatory Juan Miguel Ortiz BRAD Facility : [facility] Start: 08-20-2022 End: 08-21-[address] PHILLIP ANN . Facility:[facility] Start: 08-13-2022 ambulatory [facility] Start: 08-11-2022 End: 08-12-[address] PHILLIP ANN . Facility:[facility] Start: 08-11-2022 End: 08-11-2022 ambulatory [facility] Start: 08-09-2022 End: 08-09-2022 ambulatory FABRICIO STARK . Facility:[facility] Start: 08-06-2022 End: 08-07-[address] PHILLIP ANN . Facility:[facility] Start: 08-05-2022 End: 08-06-[address] PHILLIP ANN . Facility:[facility] Start: 07-16-2022 End: 07-16-[address] PHILLIP ANN . Facility:[facility] Start: 05-11-2022 End: 05-11-[address] PHILLIP ANN . Facility:[facility] Start: 12-02-2021 End: 12-02-[address] PHILLIP ANN . Facility:[facility] Start: 04-10-2021 End: 04-11-2021 Evaluation and management of inpatient PHILLIP ANN Facility:[facility] Start: 01-30-2021 End: 01-31-2021 ambulatory CASSY BEAR Facility:[facility] Procedures Date Procedure Procedure Detail Performing Clinician Start: 04-11-2021 [facility], Single SAMER Sony TORRES Start: 04-11-2021 ULTRASONOGRAPHY OF H EART WITH AORTA, TRANSESOPHAGEAL ABDELMONIEM MOUSTAFA section Juan Miguel Valerio section Juan Miguel Valerio Endoscopy of nose Juan Miguel MONTEZ Excision of cyst of breast Chiquis SALINAS History of radiofreq uency ablation operation for arrhythmia Juan Miguel SALINAS Implantation of inse rtable loop recorder Juan Miguel SALINAS Ligation of fallopian tube Chiquis SALINAS Plan of Treatment Date Care Activity Detail Author Start: 12-02-2022 ambulatory Ambulatory Facility:[facility] Immunizations Immunization Date Immunization Notes Care Provider Fa cili 04-18-2022 influenza virus vaccine, unspecified formulation Juan Miguel SALINAS [facility] 10-29-2020 SARS-CoV-2 (COVID-19 ) mRNA-1273 vaccine Juan Miguel SALINAS [facility] 10-25-2020 SARS-CoV-2 (COVID-19 ) mRNA BNT-162b2 vax Juan Miguel SALINAS [facility] Comment on above: Result Comment: 2022: [id number] 10-24-2020 SARS-CoV-2 (COVID-19 ) mRNA BNT-162b2 vax Juan Miguel SALINAS [facility] 10-04-2020 SARS-CoV-2 (COVID-19 ) mRNA BNT-162b2 vax Juan Miguel SALINAS [facility] Comment on above: Result Comment: 2022: [id number] 10-03-2020 SARS-CoV-2 (COVID-19 ) mRNA BNT-162b2 vax Juan Miguel OSHEAL [facility] Payers Date Payer Category Payer Unknown [id number] 2.16.8 [id number] 1968 Unknown [id number] 2.16.8 [id number] 1968 Unknown [id number] 2.16.8 [id number] 1968 Unknown [id number] 2.16.8 [id number] 1968 Unknown [id number] 2.16.84 0.1.238257.3.579.2.593 1968 Unknown [id number] 2.16.84 0.1.193029.3.579.2.593 1968 Unknown [id number] 2.16.84 0.1.658937.3.579.2.593 1968 Unknown [id number] 2.16.84 0.1.453022.3.579.2.593 1968 Unknown [id number] 2.16.84 0.1.642358.3.579.2.593 1968 Unknown [id number] 2.16.84 0.1.951179.3.579.2.593 1968 Unknown [id number] 2.16.84 0.1.272271.3.579.2.593 1968 Unknown [id number] 2.16.84 0.1.942316.3.579.2.593 1968 Unknown [id number] 2.16.84 0.1.142196.3.579.2.593 1968 Unknown [id number] 2.16.84 0.1.825603.3.579.2.593 1968 Unknown [id number] 2.16.84 0.1.229373.3.579.2.593 1968 Unknown [id number] 2.16.84 0.1.072159.3.579.2.593 1968 Unknown [id number] 2.16.84 [id number] 1959 Unknown [id number] 1959 Unknown [id number] 1959 Unknown [id number] 1959 Unknown [id number] Social History Date Type Detail Facility Start: 09-15-2022 Tobacco smoking status Ex-smoker (fi nderic) [facility] Tobacco smoking status Never [facility] Sex Assigned At Female [facility] Medical Equipment Procedure Code Equipment Code Equipment Origin al Text Equipment Identifier Dates lancets, glucome ter, alcohol swabs, testing strips, insulin pen needles, Print Requisition, Supply Start: 08-25-2021 Functional Status Date Assessment Result Facility 09-15-2022 Functional Status N/A [facility] Clinical Notes 04-12-2021 to 05-05-2023 Note Date & Type Note Facility 05-05-2023 Note [facility] Consul t Note Reason for visit: Palpitations, follow up, s/p loop implant 07/2021, s/p flutter ablation 08/18/2021 05/05/23: Loop data review: She has some episodes of SVT but they all appear to have P waves, no A-fib seen patient's been doing well with no complaints of chest pain, shortness of breath, SAXENA, LE edema she continues to have joint aches and sometimes muscle aches which have not changed with discontinuing statin I discussed with her aches are likely not statin induced as her symptoms have stayed the same since discontinuing lipids 05/05/2023 show Triglycerides 357, total cholesterol 204, LDL 91, VLDL 71, HDL 42 Discussed with patient advised to restart statin before considering something like fenofibrate. reviewing all her past lipids her triglycerides have trended upwards is a since seen in [facility] 04/28/2023 and was diagnosed with vertigo 01/27/2023 HPI: patient for 6-month follow-up loop data review 01/27/2023: shows some episodes noted SVT which appears to be oversensing T wave and otherwise sinus rhythm; nocturnal bradycardia noted November 24, 2022 heart rate as low as 32 bpm lasting 5 seconds, otherwise no significant arrhythmias Has CPAP mask, had an episode where she couldn't get mask off and has had anxiety since and has not worn cpap Took meds at 0830 , will trend BP at home for 2 weeks x3/day and bring trends to office Primary care switched her from a statin to Crestor due to muscle cramping. She is still having cramping on 5 mg Crestor. Discussed with her changing to Zetia with follow-up lipids in 3 months PMHx: COPD, hypertension, and diabetes, atrial flutter s/p ablation and loop recorder placement 08/18/2021. EKG 04/10/2021 sinus rhythm 04/10/2021 atrial flutter 08/18/2021 shows atrial fibrillation --- 07/[address] martinez HPI: Patient here for 6 mo follow up atrial flutter/afib. She was in the ED 2 days ago for stomach issues. Had ECG, CXR, and labs. Has intermittent palpitations. Denies chest pain and SOB. C/o epistaxis with clots, and is on Eliquis. She is seeing an ENT for this. LOOP reveals tachy events but they are TW oversensing leading to double counting. No AF seen yet. Prior HPI: 51-year-old lady with a past medical history of atrial flutter was brought to the EP lab. However she was noted to be in atrial fibrillation in the lab and so cardioversion was performed and a flutter ablation was then performed with a loop implant for further AF surveillance. This was performed on 08/18/2021. Loop interrogation does reveal sinus rhythm with a significant pause of 5.7 seconds noted on January 14, 2022 at 4:30 AM consistent with a sinus node dysfunction Loop interrogation reveals presence of sinus pause on January 14, 2022 at 4:30 in the morning which resulted in a 5.7-second pause. She has LILLIANA but has not been using CPAP. She has no syncope or dizziness. Loop revealed Controlled A. fib episode noted on August 23, and but nothing since then. She does have a lrge T wave which has resulted in double counting and erroneous report of VT. Pulse check 01/27/2023 sinus rhythm EKG 04/10/2021 sinus rhythm 04/10/2021 atrial flutter 08/18/2021 shows atrial fibrillation Echocardiogram performed on 09/04/2021 reveals EF of 55% Echocardiogram performed on 08/18/2021 showed EF of 60 to 70% with a small pericardial effusion NHUNG performed on 04/12/2021 showed EF of 55 to 60% prior to cardioversion PMHx: COPD, hypertension, and diabetes, atrial flutter s/p ablation and loop recorder placement 08/18/2021. PMH: Past Medical History: Diagnosis Date Atrial fibrillation (CMS/HCC) Atrial flutter (CMS/HCC) Hypertension Pericardial effusion Sleep apnea PSH: Past Surgical History: Procedure Laterality Date ATRIAL ABLATION SURGERY 08/18/2021 atrial flutter BREAST BIOPSY CARDIAC CATHETERIZATION SECTION, CLASSIC TUBAL LIGATION SH: Social Determinants of Health Tobacco Use: Medium Risk (08/11/2022) Patient History Smoking Tobacco Use: Former Smokeless Tobacco Use: Never Passive Exposure: Not on file Alcohol Use: Not on file Financial Resource Strain: Not on file Food Insecurity: Not on file Transportation Needs: Not on file Physical Activity: Not on file Stress: Not on file Social Connections: Not on file Intimate Partner Violence: Not on file Depression: Not on file Housing Stability: Not on file Allergies: Allergies Allergen Reactions Morphine Trulicity [Dulaglutide] Weight: 86.2kg Vitals: 05/05/23 0936 BP: 138/84 Pulse: SpO2: Meds: Current Outpatient Medications on File Prior to Visit Medication Sig Dispense Refill dilTIAZem CD (Cardizem CD) 240 mg 24 hr capsule Take by mouth in the morning. Eliquis 5 mg tablet Take 5 mg by mouth in the morning and at bedtime. ezetimibe (Zetia) 10 mg tablet Take 1 table (more content not included)... [facility] 05-05-2023 Note Patient here for 3 m o follow up hyperlipidemia, atrial flutter s/p ablation, and hypertension. Had lipid panel drawn this morning. Crestor was stopped at last visit in January 2023, and she was started on Zetia. She wants to know what pain meds she can safely take in combination with Eliquis. C/o myalgias that keep her awake at night. She was recently seen in the ED for vertigo. Review of Systems HENT: Positive for nosebleeds (dryness). Respiratory: Positive for cough. Musculoskeletal: Positive for joint pain, joint swelling and myalgias. Neurological: Positive for dizziness, headaches, light-headedness and vertigo. All other systems reviewed and are negative. [facility] 01-27-2023 Note Patient here for 6 m o follow up typical atrial flutter, hypertension, and chronic diastolic heart failure. Had CXR and lab work a few months ago. Dr. Ann switched her from simvastatin to rosuvastatin. C/o myalgias and SOB with exertion. Review of Systems HENT: Positive for nosebleeds (dryness). Cardiovascular: Positive for dyspnea on exertion and palpitations ( sometimes ). Respiratory: Positive for cough. Musculoskeletal: Positive for myalgias. Neurological: Positive for headaches. All other systems reviewed and are negative. [facility] 01-27-2023 Note [facility] Consul t Note Reason for visit: Palpitations, follow up HPI: patient for 6-month follow-up loop data review 01/27/2023: shows some episodes noted SVT which appears to be oversensing T wave and otherwise sinus rhythm; nocturnal bradycardia noted November 24, 2022 heart rate as low as 32 bpm lasting 5 seconds, otherwise no significant arrhythmias Has CPAP mask, had an episode where she couldn't get mask off and has had anxiety since and has not worn cpap Took meds at 0830 , will trend BP at home for 2 weeks x3/day and bring trends to office Primary care switched her from a statin to Crestor due to muscle cramping. She is still having cramping on 5 mg Crestor. Discussed with her changing to Zetia with follow-up lipids in 3 months PMHx: COPD, hypertension, and diabetes, atrial flutter s/p ablation and loop recorder placement 08/18/2021. EKG 04/10/2021 sinus rhythm 04/10/2021 atrial flutter 08/18/2021 shows atrial fibrillation --- 07/[address] martinez HPI: Patient here for 6 mo follow up atrial flutter/afib. She was in the ED 2 days ago for stomach issues. Had ECG, CXR, and labs. Has intermittent palpitations. Denies chest pain and SOB. C/o epistaxis with clots, and is on Eliquis. She is seeing an ENT for this. LOOP reveals tachy events but they are TW oversensing leading to double counting. No AF seen yet. Prior HPI: 51-year-old lady with a past medical history of atrial flutter was brought to the EP lab. However she was noted to be in atrial fibrillation in the lab and so cardioversion was performed and a flutter ablation was then performed with a loop implant for further AF surveillance. This was performed on 08/18/2021. Loop interrogation does reveal sinus rhythm with a significant pause of 5.7 seconds noted on January 14, 2022 at 4:30 AM consistent with a sinus node dysfunction Loop interrogation reveals presence of sinus pause on January 14, 2022 at 4:30 in the morning which resulted in a 5.7-second pause. She has LILLIANA but has not been using CPAP. She has no syncope or dizziness. Loop revealed Controlled A. fib episode noted on August 23, and but nothing since then. She does have a lrge T wave which has resulted in double counting and erroneous report of VT. Pulse check 01/27/2023 sinus rhythm EKG 04/10/2021 sinus rhythm 04/10/2021 atrial flutter 08/18/2021 shows atrial fibrillation Echocardiogram performed on 09/04/2021 reveals EF of 55% Echocardiogram performed on 08/18/2021 showed EF of 60 to 70% with a small pericardial effusion NHUNG performed on 04/12/2021 showed EF of 55 to 60% prior to cardioversion PMHx: COPD, hypertension, and diabetes, atrial flutter s/p ablation and loop recorder placement 08/18/2021. PMH: Past Medical History: Diagnosis Date Atrial fibrillation (CMS/HCC) Atrial flutter (CMS/HCC) Hypertension Pericardial effusion Sleep apnea PSH: Past Surgical History: Procedure Laterality Date ATRIAL ABLATION SURGERY 08/18/2021 atrial flutter BREAST BIOPSY CARDIAC CATHETERIZATION SECTION, CLASSIC TUBAL LIGATION SH: Social Determinants of Health Tobacco Use: Medium Risk (08/11/2022) Patient History Smoking Tobacco Use: Former Smokeless Tobacco Use: Never Passive Exposure: Not on file Alcohol Use: Not on file Financial Resource Strain: Not on file Food Insecurity: Not on file Transportation Needs: Not on file Physical Activity: Not on file Stress: Not on file Social Connections: Not on file Intimate Partner Violence: Not on file Depression: Not on file Housing Stability: Not on file Allergies: Allergies Allergen Reactions Morphine Weight: 86.2kg Vitals: 01/27/23 0928 Pulse: 86 SpO2: 96% Meds: Current Outpatient Medications on File Prior to Visit Medication Sig Dispense Refill fbuxiwxcsa-yrhfkewdlazgp-qhbp (Fioricet) 50-300-40 mg capsule dicyclomine (Bentyl) 20 mg tablet dilTIAZem CD (Cardizem CD) 240 mg 24 hr capsule Take by mouth in the morning. Eliquis 5 mg tablet Take 5 mg by mouth in the morning and at bedtime. famotidine (Pepcid) 20 mg tablet ferrous sulfate 325 (65 Fe) MG tablet Take 1 tablet by mouth in the morning and at bedtime. furosemide (Lasix) 40 mg tablet TAKE 1 TABLET BY MOUTH EVERY DAY 90 tablet 3 hyoscyamine 0.125 mg SL tablet isosorbide mononitrate ER (Imdur) 30 mg 24 hr tablet Take 30 mg by mouth in the morning. metFORMIN (Glucophage) 500 mg tablet Take 1 tablet by mouth in the morning and at bedtime. metoprolol succinate XL (Toprol-XL) 25 mg 24 hr tablet Take 50 mg by mouth in the morning. pantoprazole (ProtoNix) 40 mg EC tablet Take 1 tablet by mouth in the morning. potassium chloride CR (K-Tab) 20 mEq ER tablet Take 20 mEq by mouth in the morning and at bedtime. rosuvastatin (Crestor) 5 mg tablet Take 5 mg by mouth in the morning. [DISCONTINUED] Ozempic 0.25 mg or 0.5 mg(2 mg/1. (more content not included)... [facility] 11-17-2022 Note PROCEDURE: XR CHEST 1 V DATE: 11/17/2022 10:42 AM CDT COMPARISONS: None. CLINICAL INDICATION: 52 years Female COUGH FINDINGS: The heart is prominent and stable. The heart size is accentuated by the lordotic radiographic technique. Electronic cardiac device overlies the left hilar region, stable The lungs remain clear. There is no evidence of pleural effusion or pneumothorax. IMPRESSION: Stable chest. Electronically authenticated by: AUDREY BO Date: 2022-11-17 12:14 [facility] 09-17-2022 Note Chief Complaint consultation for epigastric pain and nausea HPI Staff 51 year old female presents on consultation from Dr. Ann for intermittent abdominal pain. Presented to [facility] 08/09 with complaint of epigastric pain and nausea. Prescribed Bentyl and Pepcid, she is taking these PRN. Patient has been on Protonix for several months. Reports several month history of generalized abdominal pain. Describes this as an ache. Denies rectal pain, bleeding or change in bowel habits. RUQ US completed 08/11 with cholelithiasis. HIDA completed 08/20- normal. Patient on Eliquis for a.fib. Last colonoscopy completed 09/2009- normal. History of Present Illness 51 yo female with h/o PAF, on Eliquis, htn, pulmonary htn, LILLIANA, hypercholesterolemia, DMII, chronic diastolic heart failure, COPD, IBS, GERD, referred for intermittent abd pain, epigastric and generalized at times; ache, crampy at times, no radiation, some nausea, no emesis, no triggers, can last the entire day; no relieving factors; no change in bowel habits or blood in stools; US with small gallstones, normal duct, no wall thickening; normal HIDA scan; abdominal operations significant for x 2 and tubal ligation. last colonoscopy 09/2009 with sigmoid diverticulosis. patient on Eliquis, no asa or NSAID use; no SBE prophylaxis; no tobacco use; no fmhx of GI malignancy or IBD. Review of Systems PHQ Score Initial Depression Screen Score: 0 ROS - Provider Constitutional: no fever, no sweats, no weight loss. Eyes: no glasses, no blurred vision, no visual loss. ENMT: no dentures, no hoarseness, no swallowing difficulties, no hearing loss, no ear infection(s), no nose bleeds. Cardiovascular: normal blood pressure, no chest pain, regular heartbeat, no heart murmur. Respiratory: no shortness of breath, no cough, no asthma, no wheezing. Gastrointestinal: no nausea, no vomiting, no diarrhea, no constipation, no blood in stool, no change in bowel habits, no abdominal pain, no hepatitis. Genitourinary: no kidney stones, no urine infection, no dysuria. Musculoskeletal: no pain, no weakness. Skin: no changing moles, no rash, no skin lumps. Neurologic: no seizures, no epilepsy, no headache. Psychiatric: no emotional or psychiatric problem. Heme/Lymph: no bleeding problems, no anemia, no blood clots, no transfusions. Allergy/Immunologic: no swollen lymph nodes/glands, no IV drug abuse. Other: Additional ROS info: Except as noted in the above Review of Systems and in the History of Present Illness, all other systems have been reviewed and are negative or noncontributory. Physical Exam Vitals & Measurements HR: 70(Peripheral) RR: 16 BP: 116/78 HT: 62 in HT: 157 cm WT: 86.8 kg WT: 190.96 lb BMI: 35.21 HEENT: normal conjunctiva, sclera clear, no scleral icterus, EOM intact, PERRLA, oral mucosa moist without lesions. Neck: trachea midline, no mass, symmetric, no thyromegaly or nodules, no adenopathy Respiratory: lungs CTA, respirations non labored. Cardiovascular: regular rate and rhythm, no murmur, no pedal edema or varicosities. Gastrointestinal: obese, soft, non distended, mild tenderness, epigastrium and mid abd, bilaterally, no peritoneal signs; no masses, no palpable hernias, diastasis recti no, no hepatosplenomegaly; normal bs Lymphatic: no cervical adenopathy, no supraclavicular adenopathy Musculoskeletal: normal gait, digits and nails without infection, nodes, cyanosis, clubbing. Skin: no rashes, no lesions, no ulcers, no subcutaneous nodules, induration. Psychiatric/Neuro: oriented to time, place, person, judgement normal, affect appropriate for age, insight intact, no focal deficits. Tests: labs reviewed, x-rays reviewed, review of old records completed, Discussed surgical options, risks, and possible complications with patient. Assessment/Plan 1. Epigastric pain (R10.13: Epigastric pain) plan EGD and colonoscopy under anesthesia for further evaluation, informed consent obtained. 2. Generalized abdominal pain (R10.84: Generalized abdominal pain) see # 1 3. Abdominal bloating (R14.0: Abdominal distension (gaseous)) see # 1 4. Nausea in adult (R11.0: Nausea) see #1 Follow-up No qualifying data available Problem List/Past Medical History Ongoing Abdominal bloating Atrial flutter BMI 35.0-35.9,adult Cervical disc disease Chronic diastolic heart failure Chronic obstructive pulmonary disease Cystic kidney disease Depression Diabetes Diverticulosis Epigastric pain Fibrocystic disease of breast Generalized abdominal pain Gout History of pericarditis HTN (hypertension) IBS (irritable bowel syndrome) Insomnia Low back pain syndrome Migraines Mild aortic stenosis Nausea in adult LILLIANA (obstructive sleep apnea) PAF (paroxysmal atrial fibrillation) Pericardial effusion Pulmonary HTN Pure hypercholesterolemia RUQ pain Historical No qualifying data Procedure/Surgical History section, section, Excisi (more content not included)... [facility] Comment on above: Result Comment: Elec tronically Signed By: BRAD DIAZ, Juan Miguel Rivera\Date and Time Signed: 09/17/22 11:55 EST 08-11-2022 Note [facility] Consul t Note Reason for visit: Patient here for 6 mo follow up atrial flutter/afib. She was in the ED 2 days ago for stomach issues. Had ECG, CXR, and labs. Has intermittent palpitations. Denies chest pain and SOB. C/o epistaxis with clots, and is on Eliquis. She is seeing an ENT for this. ROS: Review of Systems Cardiovascular: Positive for irregular heartbeat. Hematologic/Lymphatic: Positive for bleeding problem. All other systems reviewed and are negative. [facility] 08-11-2022 Note [facility] Consul t Note Reason for visit: Palpitations HPI: Patient here for 6 mo follow up atrial flutter/afib. She was in the ED 2 days ago for stomach issues. Had ECG, CXR, and labs. Has intermittent palpitations. Denies chest pain and SOB. C/o epistaxis with clots, and is on Eliquis. She is seeing an ENT for this. LOOP reveals tachy events but they are TW oversensing leading to double counting. No AF seen yet. Prior HPI: 51-year-old lady with a past medical history of atrial flutter was brought to the EP lab. However she was noted to be in atrial fibrillation in the lab and so cardioversion was performed and a flutter ablation was then performed with a loop implant for further AF surveillance. This was performed on 08/18/2021. Loop interrogation does reveal sinus rhythm with a significant pause of 5.7 seconds noted on January 14, 2022 at 4:30 AM consistent with a sinus node dysfunction Loop interrogation reveals presence of sinus pause on January 14, 2022 at 4:30 in the morning which resulted in a 5.7-second pause. She has LILLIANA but has not been using CPAP. She has no syncope or dizziness. Loop revealed Controlled A. fib episode noted on August 23, and but nothing since then. She does have a lrge T wave which has resulted in double counting and erroneous report of VT. EKG 04/10/2021 sinus rhythm 04/10/2021 atrial flutter 08/18/2021 shows atrial fibrillation Echocardiogram performed on 09/04/2021 reveals EF of 55% Echocardiogram performed on 08/18/2021 showed EF of 60 to 70% with a small pericardial effusion NHUNG performed on 04/12/2021 showed EF of 55 to 60% prior to cardioversion PMHx: COPD, hypertension, and diabetes, atrial flutter s/p ablation and loop recorder placement 08/18/2021. Cardiac cath on 01/30/2021 Normal cardiac output and index PMH: Past Medical History: Diagnosis Date Atrial fibrillation (CMS/HCC) Atrial flutter (CMS/HCC) Hypertension Pericardial effusion Sleep apnea PSH: Past Surgical History: Procedure Laterality Date ATRIAL ABLATION SURGERY 08/18/2021 atrial flutter BREAST BIOPSY CARDIAC CATHETERIZATION SECTION, CLASSIC TUBAL LIGATION SH: Social Determinants of Health Tobacco Use: Medium Risk Smoking Tobacco Use: Former Smokeless Tobacco Use: Never Passive Exposure: Not on file Alcohol Use: Not on file Financial Resource Strain: Not on file Food Insecurity: Not on file Transportation Needs: Not on file Physical Activity: Not on file Stress: Not on file Social Connections: Not on file Intimate Partner Violence: Not on file Depression: Not on file Housing Stability: Not on file Allergies: Allergies Allergen Reactions Morphine Weight: No results found for: PTWEIGHT Meds: Current Outpatient Medications on File Prior to Visit Medication Sig Dispense Refill xlobaflszn-ipyhywnxznkav-bjch (Fioricet) 50-300-40 mg capsule dicyclomine (Bentyl) 20 mg tablet dilTIAZem CD (Cardizem CD) 240 mg 24 hr capsule Take by mouth in the morning. Eliquis 5 mg tablet Take 5 mg by mouth in the morning and at bedtime. famotidine (Pepcid) 20 mg tablet ferrous sulfate 325 (65 Fe) MG tablet Take 1 tablet by mouth in the morning and at bedtime. furosemide (Lasix) 40 mg tablet Take 1 tablet by mouth in the morning. hyoscyamine 0.125 mg SL tablet isosorbide mononitrate ER (Imdur) 30 mg 24 hr tablet Take 30 mg by mouth in the morning. metFORMIN (Glucophage) 500 mg tablet Take 1 tablet by mouth in the morning and at bedtime. metoprolol succinate XL (Toprol-XL) 25 mg 24 hr tablet Take 50 mg by mouth in the morning. Ozempic 0.25 mg or 0.5 mg(2 mg/1.5 mL) pen injector INJECT 0.5MG SUBCUTANEOUSLY ONCE WEEKLY pantoprazole (ProtoNix) 40 mg EC tablet Take 1 tablet by mouth in the morning. potassium chloride CR (K-Tab) 20 mEq ER tablet Take 20 mEq by mouth in the morning and at bedtime. No current facility-administered medications on file prior to visit. ROS: Review of Systems Cardiovascular: Positive for irregular heartbeat. Hematologic/Lymphatic: Positive for bleeding problem. All other systems reviewed and are negative. Physical Exam: Constitutional General Appearance: well-nourished, well-developed, appears stated age Level of Distress: comfortable Psychiatric Mental Status: alert, normal affect Orientation: oriented to time, place, and person Insight: good judgement Eyes Lids and Conjunctivae: non-injected, no xanthelasma ENMT Ears: no lesions on external ear Nose: no lesions on external nose Oropharynx: no cyanosis, no pallor Neck Neck: supple, trachea midline Carotid Arteries: bilateral normal upstroke, no bruits Jugular Veins: normal jugular venous pressure Thyroid: not enlarged Lungs Respiratory Effort: unlabored Chest Exam: normal curvature, no thoracic deformity Auscultation: clear, no wheezing, no rales, no rhonchi Cardiovascular Rate And Rhythm: regular Heart Sounds: (more content not included)... [facility] 04-12-2021 Note MR#: [id number] I [facility] Pt. Name: Diana Alvarez Admitted: 04/10/2021 Discharged: 04/11/2021 Date of : 1970 Physician: Orlin Wick MD DISCHARGE SUMMARY PRIMARY DIAGNOSIS: New-onset atrial flutter with RVR. SECONDARY DIAGNOSES: 1. Pulmonary hypertension. 2. COPD. 3. Diabetes. HISTORY OF PRESENT ILLNESS: This patient is a 50-year-old female with past medical history of COPD, hypertension, and diabetes, who was sent from [facility] due to atrial flutter with RVR due to COPD exacerbation. The patient was initially treated with IV Cardizem, however, it was changed to p.o. prior to transfer. The patient was also given loading dose digoxin. The patient was transferred to [facility] for cardioversion. HOSPITAL COURSE: 1. New-onset atrial flutter with RVR status post NHUNG cardioversion. The patient was discharged on Eliquis and Toprol 25 mg daily. 2. Chronic diastolic congestive heart failure. The patient is to resume Lasix. 3. COPD. The patient is to resume inhalers. 4. Pulmonary hypertension due to COPD. The patient is to follow up outpatient. PHYSICAL EXAMINATION: GENERAL: Alert and oriented, not in acute distress. NECK: Supple. CARDIOVASCULAR: Regular rate and rhythm. No murmurs. LUNGS: Clear to auscultation bilaterally. GI: Soft, nontender. EXTREMITIES: No edema. DISCHARGE MEDICATIONS: 1. Eliquis 5 mg twice a day. 2. Toprol 25 mg daily. 3. Lasix 20 mg daily. 4. Potassium chloride 10 mEq twice a day. 5. Simvastatin 20 mg daily. DISPOSITION: Discharged home in stable condition. INSTRUCTIONS: The patient to take cardiac medications as prescribed. The patient to follow up with PCP and Cardiology. TIME SPENT: 45 minutes spent working on discharge planning. Electronically Signed by: Orlin Wick MD 04/15/2021 08:24 A __ Orlin Wick MD Date Dict: 04/12/2021/03:07 P/Orlin Wick MD Date Trans: 04/12/2021 03:25 P/mmo [id number] cc: Phillip Ann M.D. [address], [place] [address] [facility] Evaluation + Plan note No data available for this section [facility] Discharge instructions No data available for this section [facility] note No data available for this section [facility] Summary Purpose Family History No Family History Records FoundNo Family History Records FoundNo Family History Records FoundNo Family History Records FoundNo Family History Records Found Advance Directives No Advanced Directives Records FoundNo Advanced Directives Records FoundNo Advanced Directives Records FoundNo Advanced Directives Records FoundNo Advanced Directives Records Found Additional Source Comments INFORMATION SOURCE (unrecogn ized section and content) DATE CREATED AUTHOR 09/10/2021 [facility] DATE CREATED AUTHOR AUTHOR'S ORGANIZ ATION 12/24/2021 [facility] DATE CREATED AUTHOR AUTHOR'S ORGANIZ ATION 10/22/2022 [facility] DATE CREATED AUTHOR AUTHOR'S ORGANIZ ATION 11/20/2022 [facility] DATE CREATED AUTHOR AUTHOR'S ORGANIZ ATION 05/06/2023 [facility] Patient Care team informatio n (unrecognized section and content) Personnel Name: Phillip Ann MD Address: Address: [address] [place] [address] [place], [place] [address] FOR RECORDS PERTAINING TO PATIENTS WHO ARE OR HAVE BEEN ENROLLED IN A CHEMICAL DEPENDENCY/SUBSTANCEABUSE PROGRAM, SOME INFORMATION MAY BE OMITTED. This clinical summary was aggregated from multiple sources. Caution should be exercised in using it in the provision of clinical care. This summary normalizes information from multiple sources, and as a consequence, information in this document may materially change the coding, format and clinical context of patient data. In addition, data may be omitted in some cases. CLINICAL DECISIONS SHOULD BE BASED ON THE PRIMARY CLINICAL RECORDS. [employer] [facility] provides no warranty or guarantee of the accuracy or completeness of information in this document.
[2023-08-12 15:35] LABS: SARS-CoV-2 Ag NEGATIVE (NEGATIVE)
== END 2023-08-12 12:01 | disposition home or self-care (01) ==
LOC: LAB 12:00
PROVIDERS: PCP Family Medicine; Visit Provider Family Medicine
DX: Z20.822 Contact with and (suspected) exposure to COVID-19 (principal); R05.1 Acute cough
CPT/HCPCS: 87635; 87811

== ENCOUNTER 2023-09-14 08:48 | Outpatient (OUT) | payer OTHER, SELFPAY ==
--- OUTSIDE RECORDS SUMMARY | 2023-09-14 08:54 | XMS_ITS | CCD ---
Author Name Unknown Address [address] [place] [address] Organization [facility] Care Team Providers Care Entry Level Marketing Representative Name Role Phone CASSY BEAR Admitting Unavailable CASSY BEAR Attending Unavailable PHILLIP ANN Referring Unavailable PHILLIP ANN Primary Care Unavailable PHILLIP ANN Referring Unavailable XIAO TORRES Surgeon Unavailable ORLIN HUI Attending Unavailable CALLI PAIGE Admitting Unavailable [place] Procedure Practitioner Unavailab PHILLIP Muñoz Primary Care Unavailable [place] Procedure Practitioner Unavailab Dunia Light Surgeon Unavailabl e Phillip Ann Primary Care Physician [phone] Juan Miguel SALINAS Attending Unavailable Phillip Ann Referring Unavailable Juan Miguel SALINAS Attending Unavailable [...] SOTO Admitting Unavailable GAIL PELLETIER Consulting Unavailable TREVIN ., EMILY Attending Unavailable TREVIN ., EMILY [...] DR FISHER Attending Unavailable HOY ., DR IFSHER Primary Care Unavailable HOY ., DR FISHER [...] Morphine; Translations: [morphine] Drug Allergy 9 [facility] Repository (1 source) 06912,00; Translations: [12975,00] Propensity to adverse reactions (disorder) 0 [facility] Repository (1 source) Morphine; Translations: [morphine] Drug Allergy Feeling nervous (finding), Tachycardia (finding) General Surgery Neda (1 source) No Known Medication Allergies; Translations: [No Known Medication Allergies] Propensity to adverse reactions (disorder) [facility] Repository (1 source) dulaglutide; Translations: [DULAGLUTIDE] Drug Allergy 3 [facility] Repository Medications Current Medications Medication Drug Class(es) Dates Sig (Normalized) Sig (Original) [id number] 200 actuat albuterol 0.09 mg/actuat metered dose [...] disease (1 source) Atherosclerotic heart disease of [place] coronary artery without angina pectoris; Translations: [[place] W/O ANGINA [place]ECT[place]IS] Onset: 08-11-2022 Chronic [...] Onset: 09-13-2022 Chronic Other aftercare (1 source) penitentiary (current) use of anticoagulants; Translations: [SENIOR TELLER CURRNT USE ANTICOAGULANTS] Onset: 11-19-2022 Episodic Other aftercare (1 source) Other meterman (current) drug therapy; Translations: [OTH SENIOR TELLER CURRENT DRUG THERAPY] Onset: 11-19-2022 Episodic Other aftercare (1 source) 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) use of oral hypoglycemic drugs; Translations: [SENIOR TELLER USE ORAL HYPOGLYCEMIC DX] Onset: 11-19-2022 Episodic [...] Range Facility Office Visiton 05-05-2023 Follow-up visit [id number] Cyndi Alvarez S 1970 F Date Provider Department Center 05/05/2023 STACY RODRIGUEZ Neda [facility] Family History Problem Relation Age of Onset Breast cancer Mother Aneurysm Mother Stroke Mother Heart attack Father Coronary artery disease Father Family Status - Relation Status Age at Mother Father Level of Service:09804 [place] OFFICE/OUTPATIENT ESTABLISHED MOD MDM 30-39 MIN Normal [facility] Office Visiton 01-27-2023 Follow-up visit [id number] Cyndi Alvarez Brodie 1970 F Date Provider Department Center 01/27/2023 STACY RODRIGUEZ [facility] Family History Problem Relation Age of Onset Breast cancer Mother Aneurysm Mother Stroke Mother Heart attack Father Coronary artery disease Father Family Status - Relation Status Age at Mother Father Level of Service:42063 [place] OFFICE/OUTPATIENT ESTABLISHED MOD MDM 30-39 MIN Normal [facility] CBC AUTO DIFFon 10-28-2022 BASO # 0.0 103/ul Normal 0.0-0.1 [facility] Comment on above: Performed By: #### L IPID, CMP, T4, TSH, FT3 #### [facility] [address] [place] [address] Dr. Mendel Herron Basophils/100 WBC (Bld) 0.2 % Normal 0.2-2.0 [facility] Comment on above: Performed By: #### L IPID, CMP, T4, TSH, FT3 #### [facility] [address] [address] [address] Mendel Herron EO # 0.0 103/ul Normal 0.0-0.7 [facility] Comment on above: Performed By: #### L IPID, CMP, T4, TSH, FT3 #### [facility] [address] [address] [address] Mendel Herron Eosinophils/100 WBC (Bld) 0.3 % Critically low 0.9-7.0 [facility] Comment on above: Performed By: #### L IPID, CMP, T4, TSH, FT3 #### [facility] [address] [place] [address] Dr. Mendel Herron Erythrocyte distribution width (RBC) [Ratio] 13.6 % Normal 11.0-15.0 [facility] Comment on above: Performed By: #### L IPID, CMP, T4, TSH, FT3 #### [facility] [address] [place] [address] Dr. Mendel Herron Hematocrit (Bld) [Volume fraction] 40.1 % Normal 36.0-48.0 [facility] Comment on above: Performed By: #### L IPID, CMP, T4, TSH, FT3 #### [facility] [address] [place] [address] Dr. Mendel Herron Hemoglobin (Bld) [Mass/Vol] 13.0 g/dL Normal 12.0-16.0 [facility] Comment on above: Performed By: #### L IPID, CMP, T4, TSH, FT3 #### [facility] [address] [place] [address] Dr. Mendel Herron IG # 0.06 10e3/ul Critically high 0.00-0.03 [facility] Comment on above: Performed By: #### L IPID, CMP, T4, TSH, FT3 #### [facility] [address] [place] [address] Dr. Mendel Herron IG % 0.5 % Normal 0.0-0.5 [facility] Comment on above: Performed By: #### L IPID, CMP, T4, TSH, FT3 #### [facility] [address] [place] [address] Dr. Mendel Herron LYMPH # 2.8 103/ul Normal 1.2-3.8 [facility] Comment on above: Performed By: #### L IPID, CMP, T4, TSH, FT3 #### [facility] [address] [place] [address] Dr. Mendel Herron Lymphocytes/100 WBC (Bld) 22.4 % Normal 20.5-60.0 [facility] Comment on above: Performed By: #### L IPID, CMP, T4, TSH, FT3 #### [facility] [address] [address] [address] Mendel Herron MANUAL DIFF REQ NO Normal [facility] Comment on above: Performed By: #### L IPID, CMP, T4, TSH, FT3 #### [facility] [address] [place] [address] Dr. Mendel Herron MCH (RBC) [Entitic mass] 30.8 pg Normal 26.7-34.0 [facility] Comment on above: Performed By: #### L IPID, CMP, T4, TSH, FT3 #### [facility] [address] [place] [address] Dr. Mendel Herron MCHC (RBC) [Mass/Vol] 32.4 g/dL Normal 29.9-35.2 [facility] Comment on above: Performed By: #### L IPID, CMP, T4, TSH, FT3 #### [facility] [address] [place] [address] Dr. Mendel Herron MCV (RBC) [Entitic vol] 95.0 fL Normal 81.0-99.0 [facility] Comment on above: Performed By: #### L IPID, CMP, T4, TSH, FT3 #### [facility] [address] [place] [address] Dr. Mendel Herron MONO # 0.9 103/ul Critically high 0.3-0.8 [facility] Comment on above: Performed By: #### L IPID, CMP, T4, TSH, FT3 #### [facility] [address] [place] [address] Dr. Mendel Herron Monocytes/100 WBC (Bld) 7.2 % Normal 1.7-12.0 [facility] Comment on above: Performed By: #### L IPID, CMP, T4, TSH, FT3 #### [facility] [address] [place] [address] Dr. Mendel Herron NEUT # 8.6 103/ul Critically high 1.4-6.5 [facility] Comment on above: Performed By: #### L IPID, CMP, T4, TSH, FT3 #### [facility] [address] [place] [address] Dr. Mendel Herron Neutrophils/100 WBC (Bld) 69.4 % Normal 43.0-75.0 [facility] Comment on above: Performed By: #### L IPID, CMP, T4, TSH, FT3 #### [facility] [address] [place] [address] Dr. Mendel Herron Platelet mean volume (Bld) [Entitic vol] 9.9 fL Normal 9.5-13.5 [facility] Comment on above: Performed By: #### L IPID, CMP, T4, TSH, FT3 #### [facility] [address] [place] [address] Dr. Mendel Herron PLT 297 103/ul Normal 150-450 [facility] Comment on above: Performed By: #### L IPID, CMP, T4, TSH, FT3 #### [facility] [address] [place] [address] Dr. Mendel Herron RBC 4.22 106/ul Normal 4.20-5.40 [facility] Comment on above: Performed By: #### L IPID, CMP, T4, TSH, FT3 #### [facility] [address] [place] [address] Dr. Mendel Herron WBC 12.4 103/ul Critically high 4.0-11.0 [facility] Comment on above: Performed By: #### L IPID, CMP, T4, TSH, FT3 #### [facility] [address] [place] [address] Dr. Mendel Herron CRPon 10-28-2022 CRP 1.3 mg/dL Critically high <=1.0 [facility] Comment on above: Performed By: #### L IPID, CMP, T4, TSH, FT3 #### [facility] [address] [address] [address] Mendel Herron PROF CHEM 8 (BAS METB)on Anion gap [Moles/Vol] 13.6 mmol/L Normal [facility] Comment on above: Performed By: #### L IPID, CMP, T4, TSH, FT3 #### [facility] [address] [place] [address] Dr. Mendel Herron Calcium [Mass/Vol] 9.3 mg/dL Normal 8.5-10.1 [facility] Comment on above: Performed By: #### L IPID, CMP, T4, TSH, FT3 #### [facility] [address] [place] [address] Dr. Mendel Herron Chloride [Moles/Vol] 102 mmol/L Normal 98-107 [facility] Comment on above: Performed By: #### L IPID, CMP, T4, TSH, FT3 #### [facility] [address] [place] [address] Dr. Mendel Herron CO2 [Moles/Vol] 30.7 mmol/L Normal 21.0-32.0 [facility] Comment on above: Performed By: #### L IPID, CMP, T4, TSH, FT3 #### [facility] [address] [place] [address] Dr. Mendel Herron Creatinine [Mass/Vol] 0.85 mg/dL Normal 0.55-1.02 [facility] Comment on above: Performed By: #### L IPID, CMP, T4, TSH, FT3 #### [facility] [address] [place] [address] Dr. Mendel Herron EGFR-AF SLOVENIAN >60 Normal >=60 [facility] Comment on above: Performed By: #### L IPID, CMP, T4, TSH, FT3 #### [facility] [address] [place] [address] Dr. Mendel Herron EGFR-NON AF SLOVENIAN >60 Normal >=60 [facility] Comment on above: Performed By: #### L IPID, CMP, T4, TSH, FT3 #### [facility] [address] [address] [address] Mendel Herron Glucose [Mass/Vol] 101 mg/dL Normal 74-106 [facility] Comment on above: Performed By: #### L IPID, CMP, T4, TSH, FT3 #### [facility] [address] [place] [address] Dr. Mendel Herron Potassium [Moles/Vol] 3.3 mmol/L Critically low 3.5-5.1 [facility] Comment on above: Performed By: #### L IPID, CMP, T4, TSH, FT3 #### [facility] [address] [address] [address] Mendel Herron Sodium [Moles/Vol] 143 mmol/L Normal 136-145 [facility] Comment on above: Performed By: #### L IPID, CMP, T4, TSH, FT3 #### [facility] [address] [place] [address] Dr. Mendel Herron Urea nitrogen [Mass/Vol] 12.0 mg/dL Normal 7.0-18.0 [facility] Comment on above: Performed By: #### L IPID, CMP, T4, TSH, FT3 #### [facility] [address] [address] [address] Mendel Herron Urea nitrogen/Creatinine [Mass ratio] 14.1 mg/mg Normal [facility] Comment on above: Performed By: #### L IPID, CMP, T4, TSH, FT3 #### [facility] [address] [place] [address] Dr. Mendel Herron URIC ACID SERUMon 10-28-2022 Urate [Mass/Vol] 7.8 mg/dL Critically high 2.6-6.0 [facility] Comment on above: Performed By: #### L IPID, CMP, T4, TSH, FT3 #### [facility] [address] [place] [address] Dr. Mendel Herron XR TOES RT MIN [...] GAIL PELLETIER Date: 2022-10-28 20:53 Normal [facility] SARS-CoV-2 (COVID-19) RNA DEIRDRE+probe Ql (Unsp spec) Not detected Normal NOT DETECTED [facility] Comment on above: Result Comment: When [...] for this test is supported by the [employer]n Burner of Health and Human Service's declaration that [...] L IPID, CMP, T4, TSH, FT3 #### [facility] [address] [address] [address] Mendel Herron Consent for Procedure/Surger yon 09-17-2022 Consent for Procedure/Surgery .[id number]#1.00CD: 127 Normal [facility] Facesheeton 09-17-2022 Facesheet [id number]#1.00CD: 127 Normal [facility] Pre-Certification Formon Pre-Certification Form [id number]: 127 Normal [facility] Ambulatory Visit Summaryon 0 09-15-2022 Ambulatory [...] Pulmonary HTN Pure hypercholesterolemia RUQ pain Normal [facility] ED Note-Physicianon 09-14-19 ED Note-Physician [id number]: 127 Normal [facility] RAD - MISCon 09-14-2022 RAD - MISC [id number]#1.00CD: 127 Normal [facility] RAD - Ultrasound Reporton RAD - Ultrasound Report [id number]#1.00CD: 127 Normal [facility] CBC AUTO DIFFon 09-09-2022 BASO # 0.1 103/ul Normal 0.0-0.1 [facility] Comment on above: Performed By: #### L IPID, CMP, T4, TSH, FT3 #### [facility] [address] [place] [address] Dr. Mendel Herron Basophils/100 WBC (Bld) 0.7 % Normal 0.2-2.0 [facility] Comment on above: Performed By: #### L IPID, CMP, T4, TSH, FT3 #### [facility] [address] [address] [address] Mendel Herron EO # 0.1 103/ul Normal 0.0-0.7 [facility] Comment on above: Performed By: #### L IPID, CMP, T4, TSH, FT3 #### [facility] [address] [place] [address] Dr. Mendel Herron Eosinophils/100 WBC (Bld) 0.7 % Critically low 0.9-7.0 [facility] Comment on above: Performed By: #### L IPID, CMP, T4, TSH, FT3 #### [facility] [address] [place] [address] Dr. Mendel Herron Erythrocyte distribution width (RBC) [Ratio] 13.1 % Normal 11.0-15.0 [facility] Comment on above: Performed By: #### L IPID, CMP, T4, TSH, FT3 #### [facility] [address] [place] [address] Dr. Mendel Herron Hematocrit (Bld) [Volume fraction] 43.7 % Normal 36.0-48.0 [facility] Comment on above: Performed By: #### L IPID, CMP, T4, TSH, FT3 #### [facility] [address] [place] [address] Dr. Mendel Herron Hemoglobin (Bld) [Mass/Vol] 14.4 g/dL Normal 12.0-16.0 [facility] Comment on above: Performed By: #### L IPID, CMP, T4, TSH, FT3 #### [facility] [address] [place] [address] Dr. Mendel Herron IG # 0.11 10e3/ul Critically high 0.00-0.03 [facility] Comment on above: Performed By: #### L IPID, CMP, T4, TSH, FT3 #### [facility] [address] [place] [address] Dr. Mendel Herron IG % 1.3 % Critically high 0.0-0.5 [facility] Comment on above: Performed By: #### L IPID, CMP, T4, TSH, FT3 #### [facility] [address] [place] [address] Dr. Mendel Herron LYMPH # 2.4 103/ul Normal 1.2-3.8 [facility] Comment on above: Performed By: #### L IPID, CMP, T4, TSH, FT3 #### [facility] [address] [place] [address] Dr. Mendel Herron Lymphocytes/100 WBC (Bld) 27.9 % Normal 20.5-60.0 [facility] Comment on above: Performed By: #### L IPID, CMP, T4, TSH, FT3 #### [facility] [address] [place] [address] Dr. Mendel Herron MANUAL DIFF REQ NO Normal [facility] Comment on above: Performed By: #### L IPID, CMP, T4, TSH, FT3 #### [facility] [address] [place] [address] Dr. Mendel Herron MCH (RBC) [Entitic mass] 31.0 pg Normal 26.7-34.0 [facility] Comment on above: Performed By: #### L IPID, CMP, T4, TSH, FT3 #### [facility] [address] [place] [address] Dr. Mendel Herron MCHC (RBC) [Mass/Vol] 33.0 g/dL Normal 29.9-35.2 [facility] Comment on above: Performed By: #### L IPID, CMP, T4, TSH, FT3 #### [facility] [address] [place] [address] Dr. Mendel Herron MCV (RBC) [Entitic vol] 94.0 fL Normal 81.0-99.0 [facility] Comment on above: Performed By: #### L IPID, CMP, T4, TSH, FT3 #### [facility] [address] [place] [address] Dr. Mendel Herron MONO # 0.5 103/ul Normal 0.3-0.8 [facility] Comment on above: Performed By: #### L IPID, CMP, T4, TSH, FT3 #### [facility] [address] [place] [address] Dr. Mendel Herron Monocytes/100 WBC (Bld) 6.0 % Normal 1.7-12.0 [facility] Comment on above: Performed By: #### L IPID, CMP, T4, TSH, FT3 #### [facility] [address] [place] [address] Dr. Mendel Herron NEUT # 5.4 103/ul Normal 1.4-6.5 [facility] Comment on above: Performed By: #### L IPID, CMP, T4, TSH, FT3 #### [facility] [address] [place] [address] Dr. Mendel Herron Neutrophils/100 WBC (Bld) 63.4 % Normal 43.0-75.0 [facility] Comment on above: Performed By: #### L IPID, CMP, T4, TSH, FT3 #### [facility] [address] [address] [address] Mendel Herron Platelet mean volume (Bld) [Entitic vol] 9.8 fL Normal 9.5-13.5 [facility] Comment on above: Performed By: #### L IPID, CMP, T4, TSH, FT3 #### [facility] [address] [address] [address] Mendel Herron PLT 398 103/ul Normal 150-450 [facility] Comment on above: Performed By: #### L IPID, CMP, T4, TSH, FT3 #### [facility] [address] [place] [address] Dr. Mendel Herron RBC 4.65 106/ul Normal 4.20-5.40 [facility] Comment on above: Performed By: #### L IPID, CMP, T4, TSH, FT3 #### [facility] [address] [place] [address] Dr. Mendel Herron WBC 8.6 103/ul Normal 4.0-11.0 [facility] Comment on above: Performed By: #### L IPID, CMP, T4, TSH, FT3 #### [facility] [address] [place] [address] Dr. Mendel Herron FREE T3on 09-09-2022 FREE T3 2.59 pg/mlL Normal 2.18-3.98 [facility] Comment on above: Performed By: #### L IPID, CMP, T4, TSH, FT3 #### [facility] [address] [place] [address] Dr. Mendel Herron GLYCOHEMOGLOBIN A1Con 2022 ADA RECOMMENDATION SEE BELOW Normal [facility] Comment on above: Result Comment: ADA RECOMMENDED LIMIT 4.0 - 6.0 ADA THERAPEUTIC TARGET < 7.0 ACTION SUGGESTED > 7.0 Performed By: #### A 1C #### [facility] [address] [place] [address] Dr. Mendel Herron Glucose [Mass/Vol] 120 mg/dL Normal [facility] Comment on above: Performed By: #### A 1C #### [facility] [address] [address] [address] Mendel Herron HbA1c (Bld) [Mass fraction] 5.8 % Normal 4.5-6.2 [facility] Comment on above: Performed By: #### A 1C #### [facility] [address] [address] [address] Mendel Herron LIPID PROFILEon 09-09-2022 CHOL-HDL RATIO NORM SEE BELOW Normal [facility] Comment on above: Result Comment: 3.3 - 4.4 LOW RISK 4.4 - 7.1 AVERAGE RISK 7.1 - 11.0 MODERATE RISK >11.0 HIGH RISK Performed By: #### L IPID, CMP, T4, TSH, FT3 #### [facility] [address] [address] [address] Mendel Herron Cholesterol [Mass/Vol] 308 mg/dL Critically high <=200 [facility] Comment on above: Performed By: #### L IPID, CMP, T4, TSH, FT3 #### [facility] [address] [address] [address] Mendel Herron Cholesterol in HDL [Mass/Vol] 46 mg/dL Normal 40-60 [facility] Comment on above: Performed By: #### L IPID, CMP, T4, TSH, FT3 #### [facility] [address] [address] [address] Mendel Herron Cholesterol in LDL [Mass/Vol] 212.6 mg/dL Normal [facility] Comment on above: Performed By: #### L IPID, CMP, T4, TSH, FT3 #### [facility] [address] [address] [address] Mendel Herron Cholesterol.total/C holesterol in HDL [Mass ratio] 6.7 {ratio} Normal [facility] Comment on above: Performed By: #### L IPID, CMP, T4, TSH, FT3 #### [facility] [address] [address] [address] Mendel Herron HDL NORMAL > or = 60 mg/dl - LO W CARDIOVASCULAR RISK <40 mg/dl - HIGH CARDIOVASCULAR RISK Normal [facility] Comment on above: Performed By: #### L IPID, CMP, T4, TSH, FT3 #### [facility] [address] [place] [address] Dr. Mendel Herron LDL CALC NORMAL SEE BELOW Normal [facility] Comment on above: Result Comment: <100 mg/dl OPTIMAL 100 - 129 mg/dl NEAR OR ABOVE OPTIMAL 130 - 159 mg/dl BORDERLINE HIGH 160 - 189 mg/dl HIGH >190 mg/dl VERY HIGH Performed By: #### L IPID, CMP, T4, TSH, FT3 #### [facility] [address] [address] [address] Mendel Herron Triglyceride [Mass/Vol] 247 mg/dL Critically high <=150 [facility] Comment on above: Performed By: #### L IPID, CMP, T4, TSH, FT3 #### [facility] [address] [place] [address] Dr. Mendel Herron VLDL CALC 49.4 mg/dL Normal [facility] Comment on above: Performed By: #### L IPID, CMP, T4, TSH, FT3 #### [facility] [address] [place] [address] Dr. Mendel Herron PROF 14(COMP METB)on 023 Albumin [Mass/Vol] 4.0 g/dL Normal 3.4-5.0 [facility] Comment on above: Performed By: #### L IPID, CMP, T4, TSH, FT3 #### [facility] [address] [place] [address] Dr. Mendel Herron Albumin/Globulin [Mass ratio] 0.9 {ratio} Normal [facility] Comment on above: Performed By: #### L IPID, CMP, T4, TSH, FT3 #### [facility] [address] [place] [address] Dr. Mendel Herron ALP [Catalytic activity/Vol] 115 U/L Normal 46-116 [facility] Comment on above: Performed By: #### L IPID, CMP, T4, TSH, FT3 #### [facility] [address] [place] [address] Dr. Mendel Herron ALT [Catalytic activity/Vol] 30 U/L Normal 14-59 [facility] Comment on above: Performed By: #### L IPID, CMP, T4, TSH, FT3 #### [facility] [address] [place] [address] Dr. Mendel Herron Anion gap [Moles/Vol] 12.7 mmol/L Normal [facility] Comment on above: Performed By: #### L IPID, CMP, T4, TSH, FT3 #### [facility] [address] [address] [address] Mendel Herron AST [Catalytic activity/Vol] 18 U/L Normal 15-37 [facility] Comment on above: Performed By: #### L IPID, CMP, T4, TSH, FT3 #### [facility] [address] [place] [address] Dr. Mendel Herron Bilirubin [Mass/Vol] 0.7 mg/dL Normal 0.2-1.0 [facility] Comment on above: Performed By: #### L IPID, CMP, T4, TSH, FT3 #### [facility] [address] [address] [address] Mendel Herron Calcium [Mass/Vol] 9.7 mg/dL Normal 8.5-10.1 [facility] Comment on above: Performed By: #### L IPID, CMP, T4, TSH, FT3 #### [facility] [address] [address] [address] Mendel Herron Chloride [Moles/Vol] 103 mmol/L Normal 98-107 [facility] Comment on above: Performed By: #### L IPID, CMP, T4, TSH, FT3 #### [facility] [address] [address] [address] Mendel Herron CO2 [Moles/Vol] 26.5 mmol/L Normal 21.0-32.0 [facility] Comment on above: Performed By: #### L IPID, CMP, T4, TSH, FT3 #### [facility] [address] [place] [address] Dr. Mendel Herron Creatinine [Mass/Vol] 0.83 mg/dL Normal 0.55-1.02 [facility] Comment on above: Performed By: #### L IPID, CMP, T4, TSH, FT3 #### [facility] [address] [address] [address] Mendel Herron EGFR-AF SLOVENIAN >60 Normal >=60 [facility] Comment on above: Performed By: #### L IPID, CMP, T4, TSH, FT3 #### [facility] [address] [place] [address] Dr. Mendel Herron EGFR-NON AF SLOVENIAN >60 Normal >=60 [facility] Comment on above: Performed By: #### L IPID, CMP, T4, TSH, FT3 #### [facility] [address] [place] [address] Dr. Mednel Herron Globulin (S) [Mass/Vol] 4.4 g/dL Normal [facility] Comment on above: Performed By: #### L IPID, CMP, T4, TSH, FT3 #### [facility] [address] [address] [address] Mendel Herron Glucose [Mass/Vol] 97 mg/dL Normal 74-106 [facility] Comment on above: Performed By: #### L IPID, CMP, T4, TSH, FT3 #### [facility] [address] [place] [address] Dr. Mendel Herron Potassium [Moles/Vol] 4.2 mmol/L Normal 3.5-5.1 [facility] Comment on above: Performed By: #### L IPID, CMP, T4, TSH, FT3 #### [facility] [address] [address] [address] Mendel Herron Protein [Mass/Vol] 8.4 g/dL Critically high 6.4-8.2 [facility] Comment on above: Performed By: #### L IPID, CMP, T4, TSH, FT3 #### [facility] [address] [address] [address] Mendel Herron Sodium [Moles/Vol] 138 mmol/L Normal 136-145 [facility] Comment on above: Performed By: #### L IPID, CMP, T4, TSH, FT3 #### [facility] [address] [place] [address] Dr. Mendel Herron Urea nitrogen [Mass/Vol] 12.0 mg/dL Normal 7.0-18.0 [facility] Comment on above: Performed By: #### L IPID, CMP, T4, TSH, FT3 #### [facility] [address] [place] [address] Dr. Mendel Herron Urea nitrogen/Creatinine [Mass ratio] 14.5 mg/mg Normal [facility] Comment on above: Performed By: #### L IPID, CMP, T4, TSH, FT3 #### [facility] [address] [place] [address] Dr. Mendel Herron T4on 09-09-2022 T4 [Mass/Vol] 8.80 ug/dL Normal 4.80-13.90 [facility] Comment on above: Performed By: #### L IPID, CMP, T4, TSH, FT3 #### [facility] [address] [place] [address] Dr. Mendel Herron TSHon 09-09-2022 TSH 0.898 uIU/mL Normal 0.358-3.740 [facility] Comment on above: Performed By: #### L IPID, CMP, T4, TSH, FT3 #### [facility] [address] [place] [address] Dr. Mendel Herron VITAMIN D 25 OHon 09-09-2022 VIT D 25-OH 24.0 ng/mL Normal [facility] Comment on above: Performed By: #### L IPID, CMP, T4, TSH, FT3 #### [facility] [address] [place] [address] Dr. Mendel Herron VIT D RANGES SEE BELOW Normal [facility] Comment on above: Result Comment: <20 ng/mL Vit D deficient 20 - <30 ng/mL Vit D insufficient 30 - 100 ng/mL Vit D sufficient >100 ng/mL Potential Toxicity Performed By: #### L IPID, CMP, T4, TSH, FT3 #### [facility] [address] [address] [address] Mendel Herron Physician Referralon 023 Physician Referral [phone] [id number]: [id number] Normal [facility] NM HEPATOBILIARY SCAN W EFon 08-20-2022 NM [...] by: VIVI GARY Date: 2022-08-20 16:07 Normal [facility] Office Visiton 08-11-2022 Follow-up visit [id number] Cyndi Alvarze 1970 F Date Provider Department Center 08/11/2022 Elsa-CURTIS MARTINEZ [facility] Family History Problem Relation Age of Onset Breast cancer Mother Aneurysm Mother Stroke Mother Heart attack Father Coronary artery disease Father Family Status - Relation Status Age at Mother Father Level of Service:03374 [place] OFFICE/OUTPATIENT ESTABLISHED MOD MDM 30-39 MIN Reason for Visit and Comments: Atrial Fibrillation [80] Atrial Flutter [101] Normal [facility] US SINGLE QUAD RT UPPERon US [...] JEAN LOPES Date: 2022-08-11 15:50 Normal [facility] CARDIAC SUBHA ADMITon 023 CK [Catalytic activity/Vol] 30 U/L Normal 26-192 [facility] Comment on above: Performed By: #### L IPID, CMP, T4, TSH, FT3 #### [facility] [address] [address] [address] Mendel Herron CK.MB [Mass/Vol] 1.02 ng/mL Normal <=3.60 [facility] Comment on above: Performed By: #### L IPID, CMP, T4, TSH, FT3 #### [facility] [address] [address] [address] Mendel Herron HSTROP 32.8 pg/mL Normal 4.0-51.3 [facility] Comment on above: Result Comment: CUT- OFF POINTS HAVE BEEN ESTABLISHED BASED ON THE FOURTH UNIVERSAL DEFINITIONS OF MYOCARDIAL INFARCTION. THE UPPER REFERENCE LIMIT (URL) OF TROPONIN, DEFINED THE 99TH PERCENTILE OF cTnI DISTRIBUTION IN A REFERENCE POPULATION, HAS BEEN CONFIRMED THE DECISION THRESHOLD FOR AR DIAGNOSIS. Performed By: #### L IPID, CMP, T4, TSH, FT3 #### [facility] [address] [place] [address] Dr. Mendel Herron SONYA 23 ng/mL Normal 9-82 [facility] Comment on above: Performed By: #### L IPID, CMP, T4, TSH, FT3 #### [facility] [address] [place] [address] Dr. Mendel Herron CBC AUTO DIFFon 08-09-2022 BASO # 0.0 103/ul Normal 0.0-0.1 [facility] Comment on above: Performed By: #### L IPID, CMP, T4, TSH, FT3 #### [facility] [address] [place] [address] Dr. Mendel Herron Basophils/100 WBC (Bld) 0.3 % Normal 0.2-2.0 [facility] Comment on above: Performed By: #### L IPID, CMP, T4, TSH, FT3 #### [facility] [address] [place] [address] Dr. Mendel Herron EO # 0.0 103/ul Normal 0.0-0.7 [facility] Comment on above: Performed By: #### L IPID, CMP, T4, TSH, FT3 #### [facility] [address] [place] [address] Dr. Mendel Herron Eosinophils/100 WBC (Bld) 0.3 % Critically low 0.9-7.0 [facility] Comment on above: Performed By: #### L IPID, CMP, T4, TSH, FT3 #### [facility] [address] [place] [address] Dr. Mendel Herron Erythrocyte distribution width (RBC) [Ratio] 13.1 % Normal 11.0-15.0 [facility] Comment on above: Performed By: #### L IPID, CMP, T4, TSH, FT3 #### [facility] [address] [place] [address] Dr. Mendel Herron Hematocrit (Bld) [Volume fraction] 42.7 % Normal 36.0-48.0 [facility] Comment on above: Performed By: #### L IPID, CMP, T4, TSH, FT3 #### [facility] [address] [place] [address] Dr. Mendel Herron Hemoglobin (Bld) [Mass/Vol] 15.4 g/dL Normal 12.0-16.0 [facility] Comment on above: Performed By: #### L IPID, CMP, T4, TSH, FT3 #### [facility] [address] [place] [address] Dr. Mendel Herron IG # 0.05 10e3/ul Critically high 0.00-0.03 [facility] Comment on above: Performed By: #### L IPID, CMP, T4, TSH, FT3 #### [facility] [address] [place] [address] Dr. Mendel Herron IG % 0.4 % Normal 0.0-0.5 [facility] Comment on above: Performed By: #### L IPID, CMP, T4, TSH, FT3 #### [facility] [address] [place] [address] Dr. Mendel Herron LYMPH # 2.5 103/ul Normal 1.2-3.8 [facility] Comment on above: Performed By: #### L IPID, CMP, T4, TSH, FT3 #### [facility] [address] [place] [address] Dr. Mendel Herron Lymphocytes/100 WBC (Bld) 21.2 % Normal 20.5-60.0 [facility] Comment on above: Performed By: #### L IPID, CMP, T4, TSH, FT3 #### [facility] [address] [place] [address] Dr. Mendel Herron MANUAL DIFF REQ NO Normal [facility] Comment on above: Performed By: #### L IPID, CMP, T4, TSH, FT3 #### [facility] [address] [place] [address] Dr. Mendel Herron MCH (RBC) [Entitic mass] 31.7 pg Normal 26.7-34.0 [facility] Comment on above: Performed By: #### L IPID, CMP, T4, TSH, FT3 #### [facility] [address] [place] [address] Dr. Mendel Herron MCHC (RBC) [Mass/Vol] 36.1 g/dL Critically high 29.9-35.2 [facility] Comment on above: Performed By: #### L IPID, CMP, T4, TSH, FT3 #### [facility] [address] [place] [address] Dr. Mendel Herron MCV (RBC) [Entitic vol] 87.9 fL Normal 81.0-99.0 [facility] Comment on above: Performed By: #### L IPID, CMP, T4, TSH, FT3 #### [facility] [address] [place] [address] Dr. Mendel Herron MONO # 0.7 103/ul Normal 0.3-0.8 [facility] Comment on above: Performed By: #### L IPID, CMP, T4, TSH, FT3 #### [facility] [address] [place] [address] Dr. Mendel Herron Monocytes/100 WBC (Bld) 6.3 % Normal 1.7-12.0 [facility] Comment on above: Performed By: #### L IPID, CMP, T4, TSH, FT3 #### [facility] [address] [place] [address] Dr. Mendel Herron NEUT # 8.4 103/ul Critically high 1.4-6.5 [facility] Comment on above: Performed By: #### L IPID, CMP, T4, TSH, FT3 #### [facility] [address] [place] [address] Dr. Mendel Herron Neutrophils/100 WBC (Bld) 71.5 % Normal 43.0-75.0 [facility] Comment on above: Performed By: #### L IPID, CMP, T4, TSH, FT3 #### [facility] [address] [place] [address] Dr. Mendel Herron Platelet mean volume (Bld) [Entitic vol] 9.8 fL Normal 9.5-13.5 [facility] Comment on above: Performed By: #### L IPID, CMP, T4, TSH, FT3 #### [facility] [address], [place] [address] Dr. Mendel Herron PLT 374 103/ul Normal 150-450 [facility] Comment on above: Performed By: #### L IPID, CMP, T4, TSH, FT3 #### [facility] [address], [place] [address] Dr. Mendel Herron RBC 4.86 106/ul Normal 4.20-5.40 [facility] Comment on above: Performed By: #### L IPID, CMP, T4, TSH, FT3 #### [facility] [address], [place] [address] Dr. Mendel Herron WBC 11.7 103/ul Critically high 4.0-11.0 [facility] Comment on above: Performed By: #### L IPID, CMP, T4, TSH, FT3 #### [facility] [address] [address] [address] HEAD WO CONon [...] HELLEN VELAZQUEZ Date: 2022-08-09 15:23 Normal [facility] SARS-CoV-2 (COVID-19) RNA DEIRDRE+probe Ql (Unsp spec) Not detected Normal NOT DETECTED [facility] Comment on above: Result Comment: When [...] for this test is supported by the [employer]er of Health and Human Service's declaration that [...] L IPID, CMP, T4, TSH, FT3 #### [facility] [address] [place] [address] Dr. Mendel Herron ER URINE PROFILEon 3 Bilirubin Ql (U) Negative Normal NEGATIVE [facility] Comment on above: Performed By: #### L IPID, CMP, T4, TSH, FT3 #### [facility] [address] [place] [address] Dr. Mendel Herron Clarity (U) CLEAR Normal CLEAR [facility] Comment on above: Performed By: #### L IPID, CMP, T4, TSH, FT3 #### [facility] [address] [place] [address] Dr. Mendel Herron Color (U) LT. YELLOW Normal YELLOW [facility] Comment on above: Performed By: #### L IPID, CMP, T4, TSH, FT3 #### [facility] [address] [place] [address] Dr. Mendel Herron ERUAHD A micrscopic examina tion will be performed if indicated. Normal [facility] Comment on above: Performed By: #### L IPID, CMP, T4, TSH, FT3 #### [facility] [address] [place] [address] Dr. Mendel Herron Glucose Ql (U) Negative Normal NEGATIVE [facility] Comment on above: Performed By: #### L IPID, CMP, T4, TSH, FT3 #### [facility] [address] [address] [address] Mendel Herron Hemoglobin Ql (U) TRACE-INTACT Abnormal NEGATIVE [facility] Comment on above: Performed By: #### L IPID, CMP, T4, TSH, FT3 #### [facility] [address] [address] [address] Mendel Herron Ketones Ql (U) Negative Normal NEGATIVE [facility] Comment on above: Performed By: #### L IPID, CMP, T4, TSH, FT3 #### [facility] [address] [address] [address] Mendel Herron LEUKOCYTES Negative Normal NEGATIVE [facility] Comment on above: Performed By: #### L IPID, CMP, T4, TSH, FT3 #### [facility] [address] [address] [address] Mendel Herron Nitrite Ql (U) Negative Normal NEGATIVE [facility] Comment on above: Performed By: #### L IPID, CMP, T4, TSH, FT3 #### [facility] [address] [address] [address] Mendel Herron pH (U) 5.0 [pH] Normal 5-9 [facility] Comment on above: Performed By: #### L IPID, CMP, T4, TSH, FT3 #### [facility] [address] [address] [address] Mendel Herron SPEC GRAVITY 1.015 Normal 1.005-<=1.02 5 [facility] Comment on above: Performed By: #### L IPID, CMP, T4, TSH, FT3 #### [facility] [address] [address] [address] Mendel Herron UA PROTEIN Negative Normal NEGATIVE/ TRACE [facility] Comment on above: Performed By: #### L IPID, CMP, T4, TSH, FT3 #### [facility] [address] [address] [address] Mendel Herron UR MICRO IND INDICATED Normal [facility] Comment on above: Performed By: #### L IPID, CMP, T4, TSH, FT3 #### [facility] [address] [place] [address] Dr. Mendel Herron Urobilinogen Qn (U) 0.2 {James'U}/dL Normal 0.2 - 1. 0 [facility] Comment on above: Performed By: #### L IPID, CMP, T4, TSH, FT3 #### [facility] [address] [place] [address] Dr. Mendel Herron LIPASEon 08-09-2022 Lipase [Catalytic activity/Vol] 114.0 U/L Normal 73.0-393.0 [facility] Comment on above: Performed By: #### L IPA, BMP, CMADM #### [facility] [address] [place] [address] Dr. Mendel Herron PROF CHEM 8 (BAS METB)on Anion gap [Moles/Vol] 18.9 mmol/L Normal [facility] Comment on above: Performed By: #### L IPA, BMP, CMADM #### [facility] [address] [place] [address] Dr. Mendel Herron Calcium [Mass/Vol] 9.4 mg/dL Normal 8.5-10.1 [facility] Comment on above: Performed By: #### L IPA, BMP, CMADM #### [facility] [address] [place] [address] Dr. Mendel Herron Chloride [Moles/Vol] 97 mmol/L Critically low 98-107 [facility] Comment on above: Performed By: #### L IPA, BMP, CMADM #### [facility] [address] [place] [address] Dr. Mendel Herron CO2 [Moles/Vol] 26.0 mmol/L Normal 21.0-32.0 [facility] Comment on above: Performed By: #### L IPA, BMP, CMADM #### [facility] [address] [place] [address] Dr. Mendel Herron Creatinine [Mass/Vol] 0.85 mg/dL Normal 0.55-1.02 [facility] Comment on above: Performed By: #### L IPA, BMP, CMADM #### [facility] [address] [address] [address] Mendel Herron EGFR-AF SLOVENIAN >60 Normal >=60 [facility] Comment on above: Performed By: #### L IPA, BMP, CMADM #### [facility] [address] [address] [address] Mendel Herron EGFR-NON AF SLOVENIAN >60 Normal >=60 [facility] Comment on above: Performed By: #### L IPA, BMP, CMADM #### [facility] [address] [address] [address] Mendel Herron Glucose [Mass/Vol] 120 mg/dL Critically high 74-106 [facility] Comment on above: Performed By: #### L IPA, BMP, CMADM #### [facility] [address] [address] [address] Mendel Herron Potassium [Moles/Vol] 3.9 mmol/L Normal 3.5-5.1 [facility] Comment on above: Performed By: #### L IPA, BMP, CMADM #### [facility] [address] [address] [address] Mendel Herron Sodium [Moles/Vol] 138 mmol/L Normal 136-145 [facility] Comment on above: Performed By: #### L IPA, BMP, CMADM #### [facility] [address] [address] [address] Mendel Herron Urea nitrogen [Mass/Vol] 17.0 mg/dL Normal 7.0-18.0 [facility] Comment on above: Performed By: #### L IPA, BMP, CMADM #### [facility] [address] [address] [address] Mendel Herron Urea nitrogen/Creatinine [Mass ratio] 20.0 mg/mg Normal [facility] Comment on above: Performed By: #### L IPA, BMP, CMADM #### [facility] [address] [address] [address] Mendel Herron TROPONIN, HIGH SENSITIVITYon 08-09-2022 HSTROP 32.5 pg/mL Normal 4.0-51.3 [facility] Comment on above: Result Comment: CUT- OFF POINTS HAVE BEEN ESTABLISHED BASED ON THE FOURTH UNIVERSAL DEFINITIONS OF MYOCARDIAL INFARCTION. THE UPPER REFERENCE LIMIT (URL) OF TROPONIN, DEFINED THE 99TH PERCENTILE OF cTnI DISTRIBUTION IN A REFERENCE POPULATION, HAS BEEN CONFIRMED THE DECISION THRESHOLD FOR AR DIAGNOSIS. Performed By: #### L IPID, CMP, T4, TSH, FT3 #### [facility] [address] [place] [address] Dr. Mendel Herron URINE MICROSCOPIC ONLYon BACTERIA NONE SEEN Normal NONE SEEN [facility] Comment on above: Performed By: #### L IPID, CMP, T4, TSH, FT3 #### [facility] [address] [place] [address] Dr. Mendel Herron Bacteria identified Cx Nom (U) NOT INDICATED Normal [facility] Comment on above: Performed By: #### L IPID, CMP, T4, TSH, FT3 #### [facility] [address] [place] [address] Dr. Mendel Herron CAST NONE SEEN Normal NONE SEEN [facility] Comment on above: Performed By: #### L IPID, CMP, T4, TSH, FT3 #### [facility] [address] [place] [address] Dr. Mendel Herron Crystals LM Nom (Urine sed) NONE SEEN Normal NONE SEEN [facility] Comment on above: Performed By: #### L IPID, CMP, T4, TSH, FT3 #### [facility] [address] [place] [address] Dr. Mendel Herron Epithelial cells LM Ql (Urine sed) NONE SEEN Normal NONE SEEN /RARE [facility] Comment on above: Performed By: #### L IPID, CMP, T4, TSH, FT3 #### [facility] [address] [place] [address] Dr. Mendel Herron MUCOUS NONE SEEN Normal NONE SEEN [facility] Comment on above: Performed By: #### L IPID, CMP, T4, TSH, FT3 #### [facility] [address] [address] [address] Mendel Herron RBC 0-2 Normal 0-2 [facility] Comment on above: Performed By: #### L IPID, CMP, T4, TSH, FT3 #### [facility] [address] [address] [address] Mendel Herron WBC NONE SEEN Normal NONE SEEN [facility] Comment on above: Performed By: #### L IPID, CMP, T4, TSH, FT3 #### [facility] [address] [address] [address] Mendel Herron XR CHEST 1 Von [...] MARY DIETZ Date: 2022-08-09 15:18 Normal [facility] H PYLORI ANTIBODY IGGon 07-20 H. PYLORI IGG ABS 0.11 Index Value Normal 0.00-0.79 [facility] Comment on above: Result Comment: Nega tive <0.80 Equivocal 0.80 - 0.89 Positive >0.89 Performed By: #### L IPID, CMP, T4, TSH, FT3 #### [facility] [address] [place] [address] Dr. Mendel Herron AMYLASEon 08-06-2022 Amylase [Catalytic activity/Vol] 57 U/L Normal 25-115 [facility] Comment on above: Performed By: #### L IPID, CMP, T4, TSH, FT3 #### [facility] [address] [address] [address] Mendel Herron CBC AUTO DIFFon 08-06-2022 BASO # 0.1 103/ul Normal 0.0-0.1 [facility] Comment on above: Performed By: #### L IPID, CMP, T4, TSH, FT3 #### [facility] [address] [place] [address] Dr. Mendel Herron Basophils/100 WBC (Bld) 0.7 % Normal 0.2-2.0 [facility] Comment on above: Performed By: #### L IPID, CMP, T4, TSH, FT3 #### [facility] [address] [place] [address] Dr. Mendel Herron EO # 0.1 103/ul Normal 0.0-0.7 [facility] Comment on above: Performed By: #### L IPID, CMP, T4, TSH, FT3 #### [facility] [address] [place] [address] Dr. Mendel Herron Eosinophils/100 WBC (Bld) 0.5 % Critically low 0.9-7.0 [facility] Comment on above: Performed By: #### L IPID, CMP, T4, TSH, FT3 #### [facility] [address] [place] [address] Dr. Mendel Herron Erythrocyte distribution width (RBC) [Ratio] 13.7 % Normal 11.0-15.0 [facility] Comment on above: Performed By: #### L IPID, CMP, T4, TSH, FT3 #### [facility] [address] [place] [address] Dr. Mendel Herron Hematocrit (Bld) [Volume fraction] 46.2 % Normal 36.0-48.0 [facility] Comment on above: Performed By: #### L IPID, CMP, T4, TSH, FT3 #### [facility] [address] [place] [address] Dr. Mendel Herron Hemoglobin (Bld) [Mass/Vol] 15.1 g/dL Normal 12.0-16.0 [facility] Comment on above: Performed By: #### L IPID, CMP, T4, TSH, FT3 #### [facility] [address] [place] [address] Dr. Mendel Herron IG # 0.06 10e3/ul Critically high 0.00-0.03 [facility] Comment on above: Performed By: #### L IPID, CMP, T4, TSH, FT3 #### [facility] [address] [place] [address] Dr. Mendel Herron IG % 0.6 % Critically high 0.0-0.5 [facility] Comment on above: Performed By: #### L IPID, CMP, T4, TSH, FT3 #### [facility] [address] [place] [address] Dr. Mendel Herron LYMPH # 2.5 103/ul Normal 1.2-3.8 [facility] Comment on above: Performed By: #### L IPID, CMP, T4, TSH, FT3 #### [facility] [address] [place] [address] Dr. Mendel Herron Lymphocytes/100 WBC (Bld) 23.4 % Normal 20.5-60.0 [facility] Comment on above: Performed By: #### L IPID, CMP, T4, TSH, FT3 #### [facility] [address] [place] [address] Dr. Mednel Herron MANUAL DIFF REQ NO Normal [facility] Comment on above: Performed By: #### L IPID, CMP, T4, TSH, FT3 #### [facility] [address] [place] [address] Dr. Mendel Herron MCH (RBC) [Entitic mass] 31.4 pg Normal 26.7-34.0 [facility] Comment on above: Performed By: #### L IPID, CMP, T4, TSH, FT3 #### [facility] [address] [place] [address] Dr. Mendel Herron MCHC (RBC) [Mass/Vol] 32.7 g/dL Normal 29.9-35.2 [facility] Comment on above: Performed By: #### L IPID, CMP, T4, TSH, FT3 #### [facility] [address] [place] [address] Dr. Mendel Herron MCV (RBC) [Entitic vol] 96.0 fL Normal 81.0-99.0 [facility] Comment on above: Performed By: #### L IPID, CMP, T4, TSH, FT3 #### [facility] [address] [place] [address] Dr. Mendel eHrron MONO # 0.6 103/ul Normal 0.3-0.8 [facility] Comment on above: Performed By: #### L IPID, CMP, T4, TSH, FT3 #### [facility] [address] [place] [address] Dr. Mendel Herron Monocytes/100 WBC (Bld) 6.0 % Normal 1.7-12.0 [facility] Comment on above: Performed By: #### L IPID, CMP, T4, TSH, FT3 #### [facility] [address] [place] [address] Dr. Mendel Herron NEUT # 7.4 103/ul Critically high 1.4-6.5 [facility] Comment on above: Performed By: #### L IPID, CMP, T4, TSH, FT3 #### [facility] [address] [place] [address] Dr. Mendel Herron Neutrophils/100 WBC (Bld) 68.8 % Normal 43.0-75.0 [facility] Comment on above: Performed By: #### L IPID, CMP, T4, TSH, FT3 #### [facility] [address] [place] [address] Dr. Mendel Herron Platelet mean volume (Bld) [Entitic vol] 9.7 fL Normal 9.5-13.5 [facility] Comment on above: Performed By: #### L IPID, CMP, T4, TSH, FT3 #### [facility] [address] [place] [address] Dr. Mendel Herron PLT 331 103/ul Normal 150-450 [facility] Comment on above: Performed By: #### L IPID, CMP, T4, TSH, FT3 #### [facility] [address] [place] [address] Dr. Mendel Herron RBC 4.81 106/ul Normal 4.20-5.40 [facility] Comment on above: Performed By: #### L IPID, CMP, T4, TSH, FT3 #### [facility] [address] [address] [address] Mendel Herron WBC 10.7 103/ul Normal 4.0-11.0 [facility] Comment on above: Performed By: #### L IPID, CMP, T4, TSH, FT3 #### [facility] [address] HEAD WO CONon [...] JEAN LOPES Date: 2022-08-06 08:39 Normal [facility] LIPASEon 08-06-2022 Lipase [Catalytic activity/Vol] 125.0 U/L Normal 73.0-393.0 [facility] Comment on above: Performed By: #### L IPID, CMP, T4, TSH, FT3 #### [facility] [address] [place] [address] Dr. Mendel Herron PROF 14(COMP METB)on 023 Albumin [Mass/Vol] 3.7 g/dL Normal 3.4-5.0 [facility] Comment on above: Performed By: #### L IPID, CMP, T4, TSH, FT3 #### [facility] [address] [place] [address] Dr. Mendel Herron Albumin/Globulin [Mass ratio] 0.9 {ratio} Normal [facility] Comment on above: Performed By: #### L IPID, CMP, T4, TSH, FT3 #### [facility] [address] [place] [address] Dr. Mendel Herron ALP [Catalytic activity/Vol] 110 U/L Normal 46-116 [facility] Comment on above: Performed By: #### L IPID, CMP, T4, TSH, FT3 #### [facility] [address] [place] [address] Dr. Mendel Herron ALT [Catalytic activity/Vol] 25 U/L Normal 14-59 [facility] Comment on above: Performed By: #### L IPID, CMP, T4, TSH, FT3 #### [facility] [address] [place] [address] Dr. Mendel Herron Anion gap [Moles/Vol] 14.0 mmol/L Normal [facility] Comment on above: Performed By: #### L IPID, CMP, T4, TSH, FT3 #### [facility] [address] [place] [address] Dr. Mendel Herron AST [Catalytic activity/Vol] 16 U/L Normal 15-37 [facility] Comment on above: Performed By: #### L IPID, CMP, T4, TSH, FT3 #### [facility] [address] [place] [address] Dr. Mendel Herron Bilirubin [Mass/Vol] 0.6 mg/dL Normal 0.2-1.0 [facility] Comment on above: Performed By: #### L IPID, CMP, T4, TSH, FT3 #### [facility] [address] [place] [address] Dr. Mendel Herron Calcium [Mass/Vol] 9.3 mg/dL Normal 8.5-10.1 [facility] Comment on above: Performed By: #### L IPID, CMP, T4, TSH, FT3 #### [facility] [address] [place] [address] Dr. Mendel Herron Chloride [Moles/Vol] 103 mmol/L Normal 98-107 [facility] Comment on above: Performed By: #### L IPID, CMP, T4, TSH, FT3 #### [facility] [address] [address] [address] Mendel Herron CO2 [Moles/Vol] 27.3 mmol/L Normal 21.0-32.0 [facility] Comment on above: Performed By: #### L IPID, CMP, T4, TSH, FT3 #### [facility] [address] [address] [address] Mendel Herron Creatinine [Mass/Vol] 0.71 mg/dL Normal 0.55-1.02 [facility] Comment on above: Performed By: #### L IPID, CMP, T4, TSH, FT3 #### [facility] [address] [address] [address] Mendel Herron EGFR-AF SLOVENIAN >60 Normal >=60 [facility] Comment on above: Performed By: #### L IPID, CMP, T4, TSH, FT3 #### [facility] [address] [place] [address] Dr. Mendel Herron EGFR-NON AF SLOVENIAN >60 Normal >=60 [facility] Comment on above: Performed By: #### L IPID, CMP, T4, TSH, FT3 #### [facility] [address] [address] [address] Mendel Herron Globulin (S) [Mass/Vol] 4.3 g/dL Normal [facility] Comment on above: Performed By: #### L IPID, CMP, T4, TSH, FT3 #### [facility] [address] [place] [address] Dr. Mendel Herron Glucose [Mass/Vol] 102 mg/dL Normal 74-106 [facility] Comment on above: Performed By: #### L IPID, CMP, T4, TSH, FT3 #### [facility] [address] [address] [address] Mendel Herron Potassium [Moles/Vol] 4.3 mmol/L Normal 3.5-5.1 [facility] Comment on above: Performed By: #### L IPID, CMP, T4, TSH, FT3 #### [facility] [address] [place] [address] Dr. Mendel Herron Protein [Mass/Vol] 8.0 g/dL Normal 6.4-8.2 [facility] Comment on above: Performed By: #### L IPID, CMP, T4, TSH, FT3 #### [facility] [address] [place] [address] Dr. Mendel Herron Sodium [Moles/Vol] 140 mmol/L Normal 136-145 [facility] Comment on above: Performed By: #### L IPID, CMP, T4, TSH, FT3 #### [facility] [address] [address] [address] Mendel Herron Urea nitrogen [Mass/Vol] 19.0 mg/dL Critically high 7.0-18.0 [facility] Comment on above: Performed By: #### L IPID, CMP, T4, TSH, FT3 #### [facility] [address] [place] [address] Dr. Mendel Herron Urea nitrogen/Creatinine [Mass ratio] 26.8 mg/mg Normal [facility] Comment on above: Performed By: #### L IPID, CMP, T4, TSH, FT3 #### [facility] [address] [address] [address] Mendel Herron Covid-19 PCR ([facility])on 06-19 SARS-CoV-2 (COVID-19) RNA DEIRDRE+probe Ql (Unsp spec) Not detected Normal NOT DETECTED [facility] Comment on above: Result Comment: This test is not yet approved or cleared by the [place] FDA. When there are no FDA-approved or cleared tests available, and other criteria are met, FDA can make tests available under an emergency access mechanism called an Emergency Use Authorization (EUA). The EUA for this test is supported by the [place] of Health and Human Service's (HHS's) declaration [...] SARS-CoV-2. Performed By: #### C VDTBH #### [facility] [address] [address] [address] Mendel Herron INFLUENZA A AND B AGon 07-16 [facility] SEE BELOW Normal [facility] Comment on above: Result Comment: Nega tive for Flu A protein angiten. Infection due to Flu A cannot be ruled out. Flu A angiten in the sample may be below the detection limit of the test. Performed By: #### L IPID, CMP, T4, TSH, FT3 #### [facility] [address] [address] [address] Mendel Herron INFLUBNEG SEE BELOW Normal [facility] Comment on above: Result Comment: Nega tive for Flu B protein antigen. Infection due to Flu B cannot be ruled out. Flu B antigen in the sample may be below the detection limit of the test. Performed By: #### L IPID, CMP, T4, TSH, FT3 #### [facility] [address] [address] [address] Mendel Herron INFLUENZA A AG Negative Normal NEGATIVE SEE COMMENT [facility] Comment on above: Performed By: #### L IPID, CMP, T4, TSH, FT3 #### [facility] [address] [address] [address] Mendel Herron INFLUENZA B AG Negative Normal NEGATIVE SEE COMMENT [facility] Comment on above: Performed By: #### L IPID, CMP, T4, TSH, FT3 #### [facility] [address] [address] [address] Mendel Herron Covid-19 PCR ([facility])on 04-19 SARS-CoV-2 (COVID-19) RNA DEIRDRE+probe Ql (Unsp spec) Not detected Normal NOT DETECTED [facility] Comment on above: Result Comment: This test is not yet approved or cleared by the [place] FDA. When there are no FDA-approved or cleared tests available, and other criteria are met, FDA can make tests available under an emergency access mechanism called an Emergency Use Authorization (EUA). The EUA for this test is supported by the [place] of Health and Human Service's (HHS's) declaration [...] L IPID, CMP, T4, TSH, FT3 #### [facility] [address] [place] [address] Dr. Mendel Herron INFLUENZA A AND B [facility] 05-11 [facility] SEE BELOW Normal [facility] Comment on above: Result Comment: Nega tive for Flu A protein angiten. Infection due to Flu A cannot be ruled out. Flu A angiten in the sample may be below the detection limit of the test. Performed By: #### L IPID, CMP, T4, TSH, FT3 #### [facility] [address] [place] [address] Dr. [facility] Normal [facility] Comment on above: Result Comment: Nega tive for Flu B protein antigen. Infection due to Flu B cannot be ruled out. Flu B antigen in the sample may be below the detection limit of the test. Performed By: #### L IPID, CMP, T4, TSH, FT3 #### [facility] [address] [place] [address] Dr. Mendel Herron INFLUENZA A AG Negative Normal NEGATIVE SEE COMMENT [facility] Comment on above: Performed By: #### L IPID, CMP, T4, TSH, FT3 #### [facility] [address] [place] [address] Dr. Mendel Herron INFLUENZA B AG Negative Normal NEGATIVE SEE COMMENT [facility] Comment on above: Performed By: #### L IPID, CMP, T4, TSH, FT3 #### [facility] [address] [place], [place] [address] Dr. Mendel Herron INTERNAL CONTROLS Within Normal Limits Normal Wi thin Normal Limits [facility] Comment on above: Performed By: #### L IPID, CMP, T4, TSH, FT3 #### [facility] [address] [address] [address] Mendel Herron Comprehensive Metabolic Empo n 12-23-2021 Albumin [Mass/Vol] 3.7 g/dL Normal 3.2-5.5 [facility] Comment on above: Performed By: #### E BS CMP, EBS LIPID #### [facility] [address] Albumin/Globulin [Mass ratio] 1.0 {ratio} Normal [facility] Comment on above: Performed By: #### E BS CMP, EBS LIPID #### [facility] [address] [id number] [place] ALP [Catalytic activity/Vol] 159 U/L High 32-[address] [facility] Comment on above: Performed By: #### E BS CMP, EBS LIPID #### [facility] [address] [id number] [place] ALT [Catalytic activity/Vol] 28 U/L Normal 10-[address] [facility] Comment on above: Performed By: #### E BS CMP, EBS LIPID #### [facility] [address] [id number] [place] AST [Catalytic activity/Vol] 27 U/L Normal 10-[address] [facility] Comment on above: Performed By: #### E BS CMP, EBS LIPID #### [facility] [address] [id number] [place] Bilirubin [Mass/Vol] 1.2 mg/dL Normal 0.3-1.[address] [facility] Comment on above: Performed By: #### E BS CMP, EBS LIPID #### [facility] [address] [id number] [place] Calcium [Mass/Vol] 9.2 mg/dL Normal 8.2-10.2 [facility] Comment on above: Performed By: #### E BS CMP, EBS LIPID #### [facility] [address] [place] [address] [place] Chloride [Moles/Vol] 100 mmol/L Normal 95-[address] [facility] Comment on above: Performed By: #### E BS CMP, EBS LIPID #### [facility] [address] [place] [address] [place] CO2 [Moles/Vol] 20.6 mmol/L Low 22.0-30.0 [facility] Comment on above: Performed By: #### E BS CMP, EBS LIPID #### [address] Creatinine [Mass/Vol] 0.57 mg/dL Normal 0.44-1.[address] [facility] Comment on above: Performed By: #### E BS CMP, EBS LIPID #### [address] Estimated GFR ( Ni > [address] [facility] Comment on above: Result Comment: GFR estimated reference range: According to KDOQI guidelines, <60 ml/min/1.73m2 is sufficient to diagnose a patient with chronic kidney disease. Performed By: #### E BS CMP, EBS LIPID #### [address] Estimated GFR (Non- Am > [address] [facility] Comment on above: Performed By: #### E BS CMP, EBS LIPID #### [facility] [address] [place] [address] [place] Globulin (S) [Mass/Vol] 3.7 g/dL Normal [facility] Comment on above: Performed By: #### E BS CMP, EBS LIPID #### [facility] [address] [place] [address] [place] Glucose [Mass/Vol] 100 mg/dL Normal 70-100 [facility] Comment on above: Performed By: #### E BS CMP, EBS LIPID #### [facility] [address] [place] [address] [place] Potassium [Moles/Vol] 3.9 mmol/L Normal 3.5-5.[address] [facility] Comment on above: Performed By: #### E BS CMP, EBS LIPID #### [facility] [address] [id number] [facility] Protein [Mass/Vol] 7.4 g/dL Normal 6.1-7.9 [facility] Comment on above: Performed By: #### E BS CMP, EBS LIPID #### [facility] [address] [id number] [facility] Sodium [Moles/Vol] 135 mmol/L Low 136-146 [facility] Comment on above: Performed By: #### E BS CMP, EBS LIPID #### [facility] [address] Urea nitrogen [Mass/Vol] 12 mg/dL Normal 9-[address] [facility] Comment on above: Performed By: #### E BS CMP, EBS LIPID #### [facility] [address] Lipid Profileon 12-23-2021 Cholesterol [Mass/Vol] 213 mg/dL High 140-[address] [facility] Comment on above: Result Comment: Chol less than 200 mg/dl low risk Chol 201-239 mg/dl borderline risk Chol 240 mg/dl and greater high risk Performed By: #### E BS CMP, EBS LIPID #### [facility] [address] [id number] [facility] Cholesterol in HDL [Mass/Vol] 36 mg/dL Normal 35-[address] [facility] Comment on above: Result Comment: HDL CHOL ATP-III CLASSIFICATION Cardiovascular Risk HDL > or equal to 60 mg/dL LOW HDL < 40 mg/dL HIGH Performed By: #### E BS CMP, EBS LIPID #### [facility] [address] [id number] [facility] Cholesterol.total/C holesterol in HDL [Mass ratio] 5.9 {ratio} Normal <5.[address] [facility] Comment on above: Result Comment: PERF ORMED BY: [place] [address] PATHOLOGIST [employer] MARIBEL AGUILLON M.D. Performed By: #### E BS CMP, EBS LIPID #### [facility] [address] [place] [address] [place] LDL Cholesterol,Calcula lizbet 151 mg/dL High 0-[address] [facility] Comment on above: Result Comment: LDL ATP III CLASSIFICATION LDL less than 100 mg/dL Optimal LDL 100-129 mg/dL Near or above optimal LDL 130-159 mg/dL Borderline high LDL 160-189 mg/dL High LDL greater than 189 mg/dL Very high Performed By: #### E BS CMP, EBS LIPID #### [facility] [address] Triglyceride w/Reflex 129 mg/dL Normal 35-[address] [facility] Comment on above: Result Comment: TRIG ATP III CLASSIFICATION TRIG less than 150 mg/dL Normal TRIG 150-199 mg/dL Borderline high TRIG 200-500 mg/dL High TRIG greater than 500 mg/dL Very high Standard traceable to the Center for Disease Conrtrol and Prevention (CDC) test method. Performed By: #### E BS CMP, EBS LIPID #### [facility] [address] VLDL CHOLESTEROL 25 mg/dL Normal [facility] Comment on above: Performed By: #### E BS CMP, EBS LIPID #### [facility] [address] [facility] SARS-CoV-2 (COVID-19) RNA DEIRDRE+probe Ql (Unsp spec) Detected Critically abnormal NOT DETECTED [facility] Comment on above: Result Comment: This test is not yet approved or cleared by the [place] FDA. When there are no FDA-approved or cleared tests available, and other criteria are met, FDA can make tests available under an emergency access mechanism called an Emergency Use Authorization (EUA). The EUA for this test is supported by the [place] of Health and Human Service's declaration that [...] used). Performed By: #### C VDTBH #### [facility] [address] [address] [address] Mendel Herron INFLUENZA A AND B AGon 12-02 [facility] SEE BELOW Normal [facility] Comment on above: Result Comment: Nega tive for Flu A protein angiten. Infection due to Flu A cannot be ruled out. Flu A angiten in the sample may be below the detection limit of the test. Performed By: #### L IPID, CMP, T4, TSH, FT3 #### [facility] [address] [place] [address] Dr. [facility] Normal [facility] Comment on above: Result Comment: Nega tive for Flu B protein antigen. Infection due to Flu B cannot be ruled out. Flu B antigen in the sample may be below the detection limit of the test. Performed By: #### L IPID, CMP, T4, TSH, FT3 #### [facility] [address] [place] [address] Dr. Mendel Herron INFLUENZA A AG Negative Normal NEGATIVE SEE COMMENT [facility] Comment on above: Performed By: #### L IPID, CMP, T4, TSH, FT3 #### [facility] [address] [place] [address] Dr. Mendel Herron INFLUENZA B AG Negative Normal NEGATIVE SEE COMMENT [facility] Comment on above: Performed By: #### L IPID, CMP, T4, TSH, FT3 #### [facility] [address] [place] [address] Dr. Mendel Herron INTERNAL CONTROLS Within Normal Limits Normal Wi thin Normal Limits [facility] Comment on above: Performed By: #### L IPID, CMP, T4, TSH, FT3 #### [facility] [address] [place] [address] Dr. Mendel Herron Cardiovascular Lab Reporton 08-18-2021 Cardiovascular Lab Report [facility]: [id number] Department of Physician: Curtis Martinez MD Medicine Service Date: 08/18/2021 Division of Birthdate: 1970 Cardiology Room #: [facility] [address] [place] [address] Cardiovascular Laboratory Report ATRIAL FLUTTER ABLATION AND [...] ab (more content not included)... Normal [facility] BILL Antinuclear Antibodieson 04-23-2021 Antinuclear Abs, IFA Negative Normal . [facility] Comment on above: Result Comment: Nega tive <1:80 Borderline 1:80 Positive >1:80 ICAP nomenclature: AC-0 For more information about Hep-2 cell patterns use ANApatterns.org, the official website for the International Consensus on Antinuclear Antibody (BILL) Patterns (ICAP). Performed at: - [facility] [address] [id number] Jewel Inspector: Ger Yen PhD, Phone: [phone] PERFORMED BY: [place] [address] PATHOLOGIST [employer] MARIBEL AGUILLON M.D. Performed By: #### E SR, CRP, CBC, CREAT #### [address] #### BILL #### [facility] , C-Reactive Proteinon 021 C-Reactive Protein 0.7 mg/dL Normal 0.0-1.0 [facility] Comment on above: Result Comment: PERF ORMED BY: [place] [address] PATHOLOGIST [employer] MARIBEL AGUILLON M.D. Performed By: #### E SR, CRP, CBC, CREAT #### [address] #### BILL #### [facility] , Complement C3on 04-23-2021 Complement C3 170 mg/dL High 82-[address] [facility] Comment on above: Result Comment: Perf ormed at: - [facility] [address] [id number] Jewel Inspector: Ger Yen PhD, Phone: [phone] Performed By: #### A DDONUAPLUS #### [address] #### CH50, C3, C4 #### [facility] , Complement C4on 04-23-2021 Complement C4 14 mg/dL Normal 12-[address] [facility] Comment on above: Performed By: #### A DDONUAPLUS #### [address] #### CH50, C3, C4 #### [facility] , Complement Total (CH50)on Complement Total (CH50) >60 Normal >[address] [facility] Comment on above: Result Comment: Age Male [...] determine out of range values. Performed at: [facility] [address] [id number] Jewel Inspector: Ger Yen PhD, Phone: [phone] PERFORMED BY: [place] [address] PATHOLOGIST [employer] MARIBEL AGUILLON M.D. Performed By: #### E BS CMP, EBS LIPID #### [address] Complete Blood Count Auto Di ffon 04-23-2021 Basophils (Bld) [#/Vol] 0.1 10*3/uL Normal 0.0-0.[address] [facility] Comment on above: Performed By: #### E SR, CRP, CBC, CREAT #### [address] #### BILL #### [facility] , Basophils/100 WBC (Bld) 0.7 % Normal . [facility] Comment on above: Performed By: #### E SR, CRP, CBC, CREAT #### [address] #### BILL #### [facility] , Eosinophils (Bld) [#/Vol] 0.1 10*3/uL Normal 0.0-0.[address] [facility] Comment on above: Performed By: #### E SR, CRP, CBC, CREAT #### [facility] [address] [place] [address] #### BILL #### [facility] , Eosinophils/100 WBC (Bld) 0.5 % Normal . [facility] Comment on above: Performed By: #### E SR, CRP, CBC, CREAT #### [address] #### BILL #### [facility] , Erythrocyte distribution width (RBC) [Ratio] 18.0 % High 11.9-15.[address] [facility] Comment on above: Performed By: #### E SR, CRP, CBC, CREAT #### [address] #### BILL #### [facility] , Hematocrit (Bld) [Volume fraction] 31.6 % Low 34.0-46.[address] [facility] Comment on above: Performed By: #### E SR, CRP, CBC, CREAT #### [address] #### BILL #### [facility] , Hemoglobin (Bld) [Mass/Vol] 9.8 g/dL Low 11.8-15.[address] [facility] Comment on above: Performed By: #### E SR, CRP, CBC, CREAT #### [place] [address] [place] #### BILL #### [facility] , Lymphocytes (Bld) [#/Vol] 1.7 10*3/uL Normal 1.00-4.[address] [facility] Comment on above: Performed By: #### E SR, CRP, CBC, CREAT #### [place] [address] [place] #### BILL #### [facility] , Lymphocytes/100 WBC (Bld) 15.0 % Normal . [facility] Comment on above: Performed By: #### E SR, CRP, CBC, CREAT #### [address] #### BILL #### [facility] , MCH (RBC) [Entitic mass] 24.8 pg Normal 24.7-34.[address] [facility] Comment on above: Performed By: #### E SR, CRP, CBC, CREAT #### [address] #### BILL #### [facility] , MCV (RBC) [Entitic vol] 80.1 fL Normal 80-[address] [facility] Comment on above: Performed By: #### E SR, CRP, CBC, CREAT #### [address] #### BILL #### [facility] , Mean Corpuscular HGB Conc 31.0 g/dL Low 32.0-35.[address] [facility] Comment on above: Performed By: #### E SR, CRP, CBC, CREAT #### [address] #### BILL #### [facility] , Monocytes (Bld) [#/Vol] 0.5 10*3/uL Normal 0.0-0.[address] [facility] Comment on above: Performed By: #### E SR, CRP, CBC, CREAT #### [place] [address] [place] #### BILL #### [facility] , Monocytes/100 WBC (Bld) 4.6 % Normal . [facility] [facility] Comment on above: Performed By: #### E SR, CRP, CBC, CREAT #### [place] [address] [place] #### BILL #### [facility] , Neutrophils (Bld) [#/Vol] 9.1 10*3/uL High 1.8-7.[address] [facility] Comment on above: Performed By: #### E SR, CRP, CBC, CREAT #### [facility] [address] [place] [address] #### BILL #### [facility] , Neutrophils/100 WBC (Bld) 79.2 % Normal . [facility] Comment on above: Performed By: #### E SR, CRP, CBC, CREAT #### [facility] [address] [place] [address] #### BILL #### [facility] , Nucleated RBC/100 WBC (Bld) [Ratio] 0.1 % Normal 0-0.[address] [facility] Comment on above: Performed By: #### E SR, CRP, CBC, CREAT #### [facility] [address] [place] [address] #### BILL #### [facility] , Platelet mean volume (Bld) [Entitic vol] 8.3 fL Normal 6.3-10.[address] [facility] Comment on above: Performed By: #### E SR, CRP, CBC, CREAT #### [facility] [address] [place] [address] #### BILL #### [facility] , Platelets (Bld) [#/Vol] 336 10*3/uL Normal 150-[address] [facility] Comment on above: Performed By: #### E SR, CRP, CBC, CREAT #### [facility] [address] [place] [address] [place] #### BILL #### [facility] , RBC (Bld) [#/Vol] 3.94 10*6/uL Normal 3.60-5.00 [facility] Comment on above: Performed By: #### E SR, CRP, CBC, CREAT #### [facility] [address] [place] [address] #### BILL #### [facility] , WBC (Bld) [#/Vol] 11.5 10*3/uL High 4.5-11.0 [facility] Comment on above: Performed By: #### E SR, CRP, CBC, CREAT #### [facility] [address] [place] [address] [place] #### BILL #### [facility] , Creatinineon 04-23-2021 Creatinine [Mass/Vol] 0.75 mg/dL Normal 0.44-1.[address] [facility] Comment on above: Performed By: #### E SR, CRP, CBC, CREAT #### [address] #### BILL #### [facility] , Estimated GFR ( Ni > [address] [facility] Comment on above: Result Comment: GFR estimated reference range: According to KDOQI guidelines, <60 ml/min/1.73m2 is sufficient to diagnose a patient with chronic kidney disease. Performed By: #### E SR, CRP, CBC, CREAT #### [address] #### BILL #### [facility] , Estimated GFR (Non- Am > [address] [facility] Comment on above: Performed By: #### E SR, CRP, CBC, CREAT #### [address] #### BILL #### [facility] , Dipstick and Microscopicon Appearance (U) Clear Normal Clear [facility] Comment on above: Order Comment: Name Collection Type:: Clean-Voided Midstream Performed By: #### A DDONUAPLUS #### [address] #### CH50, C3, C4 #### [facility] , Bacteria,Urine None Seen Normal None Seen [facility] Comment on above: Order Comment: Name Collection Type:: Clean-Voided Midstream Performed By: #### A DDONUAPLUS #### [address] #### CH50, C3, C4 #### [facility] , Bilirubin,Urine Negative Normal Negative [facility] Comment on above: Order Comment: Name Collection Type:: Clean-Voided Midstream Performed By: #### A DDONUAPLUS #### [address] #### CH50, C3, C4 #### [facility] , Color (U) Yellow Normal Yellow [facility] Comment on above: Order Comment: Name Collection Type:: Clean-Voided Midstream Performed By: #### A DDONUAPLUS #### [address] #### CH50, C3, C4 #### [facility] , Glucose Ql (U) 100 mg/dL High Normal [facility] Comment on above: Order Comment: Name Collection Type:: Clean-Voided Midstream Performed By: #### A DDONUAPLUS #### [address] #### CH50, C3, C4 #### [facility] , Hyaline Casts,Urine 0-8 Normal 0-8 [facility] Comment on above: Order Comment: Name Collection Type:: Clean-Voided Midstream Result Comment: PERF ORMED BY: [place] [address] PATHOLOGIST [employer] MARIBEL AGUILLON M.D. Performed By: #### A DDONUAPLUS #### [address] #### CH50, C3, C4 #### [facility] , Ketones Ql (U) Negative Normal Negative [facility] Comment on above: Order Comment: Name Collection Type:: Clean-Voided Midstream Performed By: #### A DDONUAPLUS #### [address] #### CH50, C3, C4 #### [facility] , Leukocyte esterase Test strip Ql (U) Negative Normal Negative [facility] Comment on above: Order Comment: Name Collection Type:: Clean-Voided Midstream Performed By: #### A DDONUAPLUS #### [address] #### CH50, C3, C4 #### [facility] , Nitrite,Urine Negative Normal Negative [facility] Comment on above: Order Comment: Name Collection Type:: Clean-Voided Midstream Performed By: #### A DDONUAPLUS #### [address] #### CH50, C3, C4 #### [facility] , Occult Blood,Urine Negative Normal Negative [facility] Comment on above: Order Comment: Name Collection Type:: Clean-Voided Midstream Performed By: #### A DDONUAPLUS #### [address] #### CH50, C3, C4 #### [facility] , pH (U) 5.0 [pH] Normal 5.0-9.[address] [facility] Comment on above: Order Comment: Name Collection Type:: Clean-Voided Midstream Performed By: #### A DDONUAPLUS #### [facility] [address] [place] [address] #### CH50, C3, C4 #### [facility] , Protein,Urine Negative Normal Negative [facility] Comment on above: Order Comment: Name Collection Type:: Clean-Voided Midstream Performed By: #### A DDONUAPLUS #### [address] #### CH50, C3, C4 #### [facility] , RBC,Urine None Seen Normal 0-[address] [facility] Comment on above: Order Comment: Name Collection Type:: Clean-Voided Midstream Performed By: #### A DDONUAPLUS #### [address] #### CH50, C3, C4 #### [facility] , Specificy [place],Urine 1.009 Normal 1.001-1.[address] [facility] Comment on above: Order Comment: Name Collection Type:: Clean-Voided Midstream Performed By: #### A DDONUAPLUS #### [address] #### CH50, C3, C4 #### [facility] , Squamous Epithelial Cell,Urine 0-1 Normal 0-[address] [facility] Comment on above: Order Comment: Name Collection Type:: Clean-Voided Midstream Performed By: #### A DDONUAPLUS #### [address] #### CH50, C3, C4 #### [facility] , Urobilinogen,Urine Normal Normal Normal [facility] Comment on above: Order Comment: Name Collection Type:: Clean-Voided Midstream Performed By: #### A DDONUAPLUS #### [address] #### CH50, C3, C4 #### [facility] , WBC LM.HPF (Urine sed) [#/Area] 0 /[HPF] Normal 0-[address] [facility] Comment on above: Order Comment: Name Collection Type:: Clean-Voided Midstream Performed By: #### A DDONUAPLUS #### [address] #### CH50, C3, C4 #### [facility] , Erythrocyte Sedimentation Ra ryley 04-23-2021 ESR (Bld) [Velocity] 55 mm/h High 0-[address] [facility] Comment on above: Result Comment: PERF ORMED BY: [place] [address] PATHOLOGIST [employer] MARIBEL AGUILLON M.D. Performed By: #### E SR, CRP, CBC, CREAT #### [place] [address] [place] #### BILL #### [facility] , BASIC METABOLIC PANELon 03-20 Calcium [Mass/Vol] 8.7 mg/dL Normal 8.6-10.3 [facility] Comment on above: Order Comment: No: D o not add to previous draw Performed By: #### 5 7307, 45574 #### [facility] [address] [place] [address], [facility] Chloride [Moles/Vol] 97 mmol/L Low 98-107 [facility] Comment on above: Order Comment: No: D o not add to previous draw Performed By: #### 5 7307, 36613 #### [facility] [address] [facility] [place] [address], [place] CO2 [Moles/Vol] 36 mmol/L High 21-31 [facility] Comment on above: Order Comment: No: D o not add to previous draw Performed By: #### 5 7307, 72278 #### [facility] [address] [place] [address], [place] Creatinine [Mass/Vol] 0.74 mg/dL Normal 0.60-1.20 [facility] Comment on above: Order Comment: No: D o not add to previous draw Performed By: #### 5 7307, 60716 #### [facility] [address] [place] [address], [place] GFR/1.73 sq M.predicted among blacks MDRD (S/P/Bld) [Vol rate/Area] mL/min/{1.73_m2} Normal >60 [facility] Comment on above: Order Comment: No: D o not add to previous draw Performed By: #### 5 7307, 11419 #### [facility] [address] [place] [address], [place] GFR/1.73 sq M.predicted among non-blacks MDRD (S/P/Bld) [Vol rate/Area] mL/min/{1.73_m2} Normal >60 [facility] Comment on above: Order Comment: No: D o not add to previous draw Performed By: #### 5 7307, 72349 #### [facility] [address] [place] [address], [place] Glucose [Mass/Vol] 123 mg/dL High 70-100 [facility] Comment on above: Order Comment: No: D o not add to previous draw Performed By: #### 5 73, 53424 #### [facility] [address] [place] [address], [place] Potassium [Moles/Vol] 4.3 mmol/L Normal 3.5-5.1 [facility] Comment on above: Order Comment: No: D o not add to previous draw Performed By: #### 5 7307, 70297 #### [facility] [address] [place] [address], [place] Sodium [Moles/Vol] 139 mmol/L Normal 136-145 [facility] Comment on above: Order Comment: No: D o not add to previous draw Performed By: #### 5 7307, 34862 #### [facility] [address] [place] [address], [place] Urea nitrogen [Mass/Vol] 24 mg/dL Normal 7-25 [facility] Comment on above: Order Comment: No: D o not add to previous draw Performed By: #### 5 7307, 64101 #### [facility] [address] [place] [address], [place] CBC COMPLETE BLOOD COUNTon 0 04-11-2021 Erythrocyte distribution width (RBC) [Ratio] 16.8 % High 11.5-15.0 [facility] Comment on above: Order Comment: No: D o not add to previous draw Performed By: #### 5 73, 44519 #### [facility] [address] [place] [address], [facility] Hematocrit (Bld) [Volume fraction] 29.7 % Low 36.0-45.0 [facility] Comment on above: Order Comment: No: D o not add to previous draw Performed By: #### 5 7307, 97183 #### [facility] [address] [place] [address], [facility] Hemoglobin (Bld) [Mass/Vol] 8.9 g/dL Low 12.0-15.0 [facility] Comment on above: Order Comment: No: D o not add to previous draw Performed By: #### 5 73, 86174 #### [facility] [address] [facility] [place] [address], [facility] MCH (RBC) [Entitic mass] 25.4 pg Low 27.0-33.0 [facility] Comment on above: Order Comment: No: D o not add to previous draw Performed By: #### 5 7307, 28832 #### [facility] [address] [place] [address], [facility] MCHC (RBC) [Mass/Vol] 30.0 g/dL Low 32.0-35.0 [facility] Comment on above: Order Comment: No: D o not add to previous draw Performed By: #### 5 7307, 14764 #### [facility] [address] [place] [id number], [facility] MCV (RBC) [Entitic vol] 84.9 fL Normal 82.0-98.0 [facility] Comment on above: Order Comment: No: D o not add to previous draw Performed By: #### 5 7307, 98125 #### [facility] [address] [facility] [place] [address], [facility] Nucleated RBC/100 WBC (Bld) [Ratio] 0 % Normal 0-0 [facility] Comment on above: Order Comment: No: D o not add to previous draw Performed By: #### 5 7307, 64671 #### [facility] [address] [facility] [place] [address], [facility] PLAT CNT 446 10*3/uL High 150-400 [facility] Comment on above: Order Comment: No: D o not add to previous draw Performed By: #### 5 7307, 83531 #### [facility] [address] [facility] [place] [address], [facility] RBC (Bld) [#/Vol] 3.50 10*6/uL Low 3.80-5.00 [facility] Comment on above: Order Comment: No: D o not add to previous draw Performed By: #### 5 7307, 36059 #### [facility] [address] [facility] [place] [address], [facility] WBC (Bld) [#/Vol] 16.54 10*3/uL High 4.00-10.60 [facility] Comment on above: Order Comment: No: D o not add to previous draw Performed By: #### 5 7307, 93079 #### [facility] [address] Cardiovascular Lab Reporton 04-11-2021 Cardiovascular Lab Report [facility] Patient Name: [facility] S MR #: [id number] Department of Physician: London Rodas M.D. Division of Service Date: 04/11/2021 Cardiology Birthdate: 1970 Adult Cardiovascular Room #: 5AB [id number] [place] [address] Cardiovascular Laboratory Report PROCEDURE PERFORMED: Transesophageal echocardiogram and cardioversion. INDICATION: Atrial flutter. FELLOW: Dunia Sierra MD PROCEDURE IN DETAIL: Informed consent was obtained from the patient after explaining the indication, risks, benefits, as well as alternatives. The patient understood and agreed, and signed the consent form. The patient was brought to the rn cardiac cath and transesophageal echocardiogram was performed, under conscious [...] Sierra MD Date Trans: 04/11/2021 12:53 P/marixa [id number] cc: Phillip Ann M.D. [address] [id number] Normal [facility] MAGNESIUM BLOODon 04-11-2021 Magnesium [Mass/Vol] 2.3 mg/dL Normal 1.9-2.7 [facility] Comment on above: Order Comment: No: D o not add to previous draw Performed By: #### 5 7307, 38582 #### [facility] [address] POC GLUCOSE LABon 04-11-2021 Glucose [Mass/Vol] 124 mg/dL High 70-100 [facility] Comment on above: Performed By: #### 5 7307, 49382 #### [facility] [address] [facility]. [address] TROPONIN-Ion 04-11-2021 Troponin I.cardiac [Mass/Vol] 0.06 ng/mL High 0.00-0.04 [facility] Comment on above: Order Comment: No: D o not add to previous draw Result Comment: REFE RENCE RANGES: 0.00 - 0.04 ng/ml NORMAL 0.05 - 0.50 ng/ml INDETERMINATE > 0.50 ng/ml CONSISTENT WITH AN M.I. Performed By: #### 5 7307, 78596 #### [facility] [address] *BLOOD CULTUREon 04-10-2021 *BLOOD CULTURE Clinical Report: (D) Specimen: BLOOD CULTURE Collected: 04/10/2021 09:50 Status: Final Last Updated: 04/15/2021 11:28 (1) Right hand CULT RES (Final) No Growth Day 5 Normal [facility] Comment on above: Order Comment: No: D o not add to previous draw Performed By: #### 5 7307, 38395 #### [facility] [address] *BLOOD CULTURE Clinical Report: (D) Specimen: BLOOD CULTURE Collected: 04/10/2021 09:50 Status: Final Last Updated: 04/15/2021 11:28 (1) Left hand CULT RES (Final) No Growth Day 5 Normal [facility] Comment on above: Order Comment: No: D o not add to previous draw Performed By: #### 5 7307, 26696 #### [facility] [address] [facility]. [address] *SARS-CoV-2 COVID-19on 04-10 SARS-CoV-2 (COVID-19) RNA DEIRDRE+probe Ql (Unsp spec) Not detected Normal Not Detected [facility] Comment on above: Order Comment: No: D o not add to previous draw Performed By: #### 5 7307, 17110 #### [facility] [address] [place] [address], [facility] APTTon 04-10-2021 aPTT Coag (Bld) [Time] 23.4 s Low 25.0-35.0 [facility] Comment on above: Order Comment: No: [...] THIS PURPOSE. Performed By: #### 5 7307, 33297 #### [facility] [address] [place] [address], [facility] aPTT Coag (Bld) [Time] 23.2 s Low 25.0-35.0 [facility] Comment on above: Order Comment: No: [...] THIS PURPOSE. Performed By: #### 5 7307, 57694 #### [facility] [address] BASIC METABOLIC PANELon 03-20 Calcium [Mass/Vol] 8.6 mg/dL Normal 8.6-10.3 [facility] Comment on above: Order Comment: No: D o not add to previous draw Performed By: #### 1 0070, 39758, 96171 #### [facility] [address] [place] [address], [facility] Chloride [Moles/Vol] 99 mmol/L Normal 98-107 [facility] Comment on above: Order Comment: No: D o not add to previous draw Performed By: #### 1 0, 53215, 95875 #### [facility] [address] [place] [address], [place] CO2 [Moles/Vol] 32 mmol/L High 21-31 [facility] Comment on above: Order Comment: No: D o not add to previous draw Performed By: #### 1 0, 24908, 57127 #### [facility] [address] [place] [address], [place] Creatinine [Mass/Vol] 0.84 mg/dL Normal 0.60-1.20 [facility] Comment on above: Order Comment: No: D o not add to previous draw Performed By: #### 1 0, 97000, 92243 #### [facility] [address] [place] [address], [place] GFR/1.73 sq M.predicted among blacks MDRD (S/P/Bld) [Vol rate/Area] mL/min/{1.73_m2} Normal >60 [facility] Comment on above: Order Comment: No: D o not add to previous draw Performed By: #### 1 0, 29135, 75608 #### [facility] [address] [place] [address], [place] GFR/1.73 sq M.predicted among non-blacks MDRD (S/P/Bld) [Vol rate/Area] mL/min/{1.73_m2} Normal >60 [facility] Comment on above: Order Comment: No: D o not add to previous draw Performed By: #### 1 0, 34619, 06364 #### [facility] [address] [place] [address], [place] Glucose [Mass/Vol] 117 mg/dL High 70-100 [facility] Comment on above: Order Comment: No: D o not add to previous draw Performed By: #### 1 0, 14947, 29939 #### [facility] [address] [place] [address], [facility] Potassium [Moles/Vol] 3.9 mmol/L Normal 3.5-5.1 [facility] Comment on above: Order Comment: No: D o not add to previous draw Performed By: #### 1 0070, 08004, 37122 #### [facility] [address] [place] [id number], [facility] Sodium [Moles/Vol] 139 mmol/L Normal 136-145 [facility] Comment on above: Order Comment: No: D o not add to previous draw Performed By: #### 1 0070, 57728, 89282 #### [facility] [address] [facility] [place] [address], [facility] Urea nitrogen [Mass/Vol] 19 mg/dL Normal 7-25 [facility] Comment on above: Order Comment: No: D o not add to previous draw Performed By: #### 1 0070, 55567, 01304 #### [facility] [address] [facility] BNP (B-TYPE NATRIURETIC PEPT MARILYN)on 04-10-2021 Natriuretic peptide B (Bld) [Mass/Vol] 259 pg/mL High 0-100 [facility] Comment on above: Order Comment: No: D o not add to previous draw Result Comment: Give n the appropriate clinical setting a BNP result of >100 pg/mL indicates congestive heart failure. Performed By: #### 5 7307, 45298 #### [facility] [address] [place] [address], [facility] CBC W/DIFFon 04-10-2021 ABS IMM GRANS 1.1 10*3/uL High 0.0-0.2 [facility] Comment on above: Performed By: #### 5 0103 #### [facility] [address] [place] [id number], [facility] ABS NEUTROPHILS 9.6 10*3/uL High 1.6-7.6 [facility] Comment on above: Performed By: #### 5 3 #### [facility] [address] [facility] [address] ANISO MODERATE Normal [facility] Comment on above: Performed By: #### 5 3 #### [facility] [address] [place] [address], [facility] Basophils (Bld) [#/Vol] 0.1 10*3/uL Normal 0.0-0.2 [facility] Comment on above: Performed By: #### 3 #### [facility] [address] Basophils/100 WBC (Bld) 0.7 % Normal 0.0-1.0 [facility] Comment on above: Performed By: #### 102 #### [facility] [address] [place] [address], [facility] Eosinophils (Bld) [#/Vol] 0.1 10*3/uL Normal 0.0-0.5 [facility] Comment on above: Performed By: #### 5 3 #### [facility] [address] [place] [address], [facility] Eosinophils/100 WBC (Bld) 0.4 % Normal 0.0-6.0 [facility] Comment on above: Performed By: #### 5 3 #### [facility] [address] Erythrocyte distribution width (RBC) [Ratio] 16.5 % High 11.5-15.0 [facility] Comment on above: Performed By: #### 5 3 #### [facility] [address] [facility]. [address] Hematocrit (Bld) [Volume fraction] 31.2 % Low 36.0-45.0 [facility] Comment on above: Performed By: #### 5 0103 #### [facility] [address] [place] [address], [facility] Hemoglobin (Bld) [Mass/Vol] 9.0 g/dL Low 12.0-15.0 [facility] Comment on above: Performed By: #### 5 3 #### [facility] [address] [place] [address], [facility] HYPO SLIGHT Normal [facility] Comment on above: Performed By: #### 3 #### [facility] [address] [place] [address], [facility] IMMATURE GRANS 6.8 % High 0.0-1.0 [facility] Comment on above: Performed By: #### 102 #### [facility] [address] [facility] [place] [address], [facility] Lymphocytes (Bld) [#/Vol] 4.4 10*3/uL High 1.2-4.0 [facility] Comment on above: Performed By: #### 3 #### [facility] [address] [place] [address], [facility] Lymphocytes/100 WBC (Bld) 26.4 % Normal 20.0-45.0 [facility] Comment on above: Performed By: #### 3 #### [facility] [address] [place] [id number], [facility] MCH (RBC) [Entitic mass] 25.3 pg Low 27.0-33.0 [facility] Comment on above: Performed By: #### 3 #### [facility] [address] [place] [id number], [facility] MCHC (RBC) [Mass/Vol] 28.8 g/dL Low 32.0-35.0 [facility] Comment on above: Performed By: #### 102 #### [facility] [address] [place] [address], [facility] MCV (RBC) [Entitic vol] 87.6 fL Normal 82.0-98.0 [facility] Comment on above: Performed By: #### 5 0103 #### [facility] [address] [place] [id number], [facility] Monocytes (Bld) [#/Vol] 1.3 10*3/uL High 0.1-1.0 [facility] Comment on above: Performed By: #### 5 0103 #### [facility] [address] [place] [address], [facility] MONOS 7.6 % Normal 5.0-12.0 [facility] Comment on above: Performed By: #### 5 3 #### [facility] [address] [place] [address], [facility] Neutrophils/100 WBC (Bld) 58.1 % Normal 40.0-72.0 [facility] Comment on above: Performed By: #### 5 102 #### [facility] [address] [place] [address], [facility] Nucleated RBC/100 WBC (Bld) [Ratio] 1 % High 0-0 [facility] Comment on above: Performed By: #### 5 102 #### [facility] [address] [facility] [place] [address], [facility] PLAT CNT 483 10*3/uL High 150-400 [facility] Comment on above: Performed By: #### 3 #### [facility] [address] [facility] [place] [id number], [facility] POIK SLIGHT Normal [facility] Comment on above: Performed By: #### 102 #### [facility] [address] [facility] [place] [id number], [facility] POLY SLIGHT Normal [facility] Comment on above: Performed By: #### 3 #### [facility] [address] [place] [address], [facility] RBC (Bld) [#/Vol] 3.56 10*6/uL Low 3.80-5.00 [facility] Comment on above: Performed By: #### 5 0103 #### [facility] [address] [place] [address], [place] WBC (Bld) [#/Vol] 16.54 10*3/uL High 4.00-10.60 [facility] Comment on above: Performed By: #### 5 0103 #### [facility] [address] [place] [address], [facility] LIPID PROFILEon 04-10-2021 Cholesterol [Mass/Vol] 161 mg/dL Normal 120-200 [facility] Comment on above: Result Comment: CHOL ESTEROL REFERENCE RANGE: 20 YEARS AND OLDER CARDIOVASCULAR RISK Less than 200 mg/dl Low Risk 200 to 239 mg/dl Borderline Risk 240 mg/dl and greater High Risk Performed By: #### 3 1569, 32045, 03444 #### [facility] [address] [facility] [place] [address], [place] Cholesterol in HDL [Mass/Vol] 61 mg/dL Normal 23-92 [facility] Comment on above: Result Comment: Slig ht variation in normal range could be due to gender and/or age. HDL CHOLESTEROL REFERENCE RANGE: 20 years and older Cardiovascular Risk > or =60 mg/dL Desirable 40 TO 59 mg/dL Low Risk <40 mg/dL High Risk Performed By: #### 3 1569, 98786, 48945 #### [facility] [address] [place] [address], [place] Cholesterol in LDL [Mass/Vol] 28 mg/dL Normal 0-130 [facility] Comment on above: Result Comment: LDL IS A CALCULATION LDL IS ONLY VALID IF THE TRIG IS LESS THAN 400. Performed By: #### 3 1569, 71692, 30576 #### [facility] [address] [place] [address], [place] Cholesterol.total/C holesterol in HDL [Mass ratio] 2.6 {ratio} Normal .0-4.5 [facility] Comment on above: Performed By: #### 3 1569, 03455, 15821 #### [facility] [address] [place] [address], [facility] NON-HDL CHOLESTEROL 100 mg/dL Normal [facility] Comment on above: Performed By: #### 3 1569, 34309, 44683 #### [facility] [address] [place] [address], [facility] Triglyceride [Mass/Vol] 362 mg/dL High 40-149 [facility] Comment on above: Result Comment: TRIG LYCERIDE REFERENCE RANGE: 20 YEARS AND OLDER CARDIOVASCULAR RISK LESS THAN 150 mg/dl LOW RISK 150 TO 199 mg/dl BORDERLINE RISK 200 mg/dl AND GREATER HIGH RISK Performed By: #### 3 1569, 42689, 68275 #### [facility] [address] [place] [address], [facility] VLDL CHOL 72 mg/dL High 0-40 [facility] Comment on above: Performed By: #### 3 1569, 58811, 05916 #### [facility] [address] [place] [address], [facility] MAGNESIUM BLOODon 04-10-2021 Magnesium [Mass/Vol] 2.4 mg/dL Normal 1.9-2.7 [facility] Comment on above: Order Comment: No: D o not add to previous draw Performed By: #### 1 0070, 59436, 32302 #### [facility] [address] [place] [address], [facility] POC GLUCOSE LABon 04-10-2021 Glucose [Mass/Vol] 350 mg/dL High 70-100 [facility] Comment on above: Performed By: #### 5 7307, 57942 #### [facility] [address] [place] [address], [place] Glucose [Mass/Vol] 249 mg/dL High 70-100 [facility] Comment on above: Performed By: #### 5 7307, 21620 #### [facility] [address] [place] [address], [facility] PROCALCITONINon 04-10-2021 PROCALCITONIN 0.09 ng/mL Normal 0.00-0.10 [facility] Comment on above: Order Comment: No: [...] initial PCT<0.5ng/mL Performed By: #### 5 7307, 68112 #### [facility] [address] [place] [address], [facility] PROTHROMBIN TIMEon INR Coag (PPP) [Relative time] 1.07 {INR} Normal 0.91-1.16 [facility] Comment on above: Order Comment: No: [...] CHEST 1995;108:[id number]. Performed By: #### 5 7307, 96174 #### [facility] [address] PT Coag (PPP) [Time] 13.9 s Normal 12.3-14.[address] [facility] Comment on above: Order Comment: No: D o not add to previous draw Result Comment: ALL RESULTS MUST BE INTERPRETED WITH RESPECT TO BLOOD DRAWING ARTIFACT OR DILUTION ERROR OF ANTICOAGULANT AT THE TIME OF SAMPLING. Performed By: #### 5 7307, 56337 #### [facility] [address] [facility]. [address] TROPONIN-Ion 04-10-2021 Troponin I.cardiac [Mass/Vol] 0.07 ng/mL High 0.00-0.04 [facility] Comment on above: Order Comment: No: D o not add to previous draw Result Comment: REFE RENCE RANGES: 0.00 - 0.04 ng/ml NORMAL 0.05 - 0.50 ng/ml INDETERMINATE > 0.50 ng/ml CONSISTENT WITH AN M.I. Performed By: #### 3 8039, 50053, 83080 #### [facility] [address] Troponin I.cardiac [Mass/Vol] 0.07 ng/mL High 0.00-0.04 [facility] Comment on above: Order Comment: No: D o not add to previous draw Result Comment: REFE RENCE RANGES: 0.00 - 0.04 ng/ml NORMAL 0.05 - 0.50 ng/ml INDETERMINATE > 0.50 ng/ml CONSISTENT WITH AN M.I. Performed By: #### 1 0070, 56193, 53647 #### [facility] [address] [facility]. [address] TSH3 WITH REFLEX FT4on 04-10 TSH 3RD GENERATION 0.95 uIU/mL Normal 0.34-5.60 [facility] Comment on above: Order Comment: Yes: Add to Previous draw if able Performed By: #### 3 1569 #### [facility] [address] [facility]. [address] TSH 3RD GENERATION 3.12 uIU/mL Normal 0.34-5.60 [facility] Comment on above: Performed By: #### 3 1569, 71021, 42057 #### [facility] [address] [facility]. [address] UFH HEPARIN ASSAYon 04-10-20 21 UNFRACTIONATED HEPARIN >1.00 Critically high 0.30-0.70 [facility] Comment on above: Result Comment: Resu lt checked and called. Accurately read back by Haven Avila RN at 1122 per RN patient may have previously been given Eliquis. UFH = 1.36 for pharmacy use Rivaroxaban and Apixaban will interfere with the anti Xa assay used to monitor UFH and LMWH. Performed By: #### 5 7307, 08122 #### [facility] [address] [facility]. [address] Cardiovascular Lab Reporton 01-30-2021 Cardiovascular Lab Report [facility] #: [id number] Department of Physician: London Ross M.D. Division of Service Date: 01/30/2021 Cardiology Birthdate: 1970 Adult Cardiovascular Room #: [place] [address] [address] [place] [id number] Cardiovascular Laboratory Report FINAL IMPRESSIONS: 1. Moderately [...] 5. Follow up with Cardiology in the [facility] Cardiology office in the next 2 [...] right internal jugular vein was obtained. A 6-Swedish glide sheath was inserted without difficulty. A [...] Bear M.D. Date Trans: 01/30/2021 02:48 P/mmo [id number] cc: Phillip Ann M.D. [address], [facility] [address] [facility] Vital Signs Date Time Vital Sign Value Performing Clinician Faci nydia 09-15-2022 15:24-0500 Blood Pressure Location [facility] 09-15-2022 15:24-0500 Diastolic blood pressure 78 mm[Hg] [facility] 09-15-2022 15:24-0500 Heart rate 70 /min [facility] 09-15-2022 15:24-0500 Respiratory rate 16 /min [facility] 09-15-2022 15:24-0500 Systolic blood pressure 116 mm[Hg] [facility] Encounters Encounter Date Encounter Type Care Provider Facility Start: 05-05-2023 End: 05-05-2023 ambulatory [facility] Start: 01-27-2023 End: 01-27-2023 ambulatory [facility] Start: 11-17-2022 End: 11-17-2022 ambulatory EMILY ZHONG [...] PHILLIP ANN . Facility:[facility]1 Start: 08-13-2022 ambulatory [facility] Start: 08-11-2022 End: 08-12-[address] PHILLIP ANN . Facility:[facility] Start: 08-11-2022 End: 08-11-2022 ambulatory [facility] Start: 08-09-2022 End: 08-09-2022 ambulatory FABRICIO STARK [...] Evaluation and management of inpatient PHILLIP ANN Facility:[facility] Start: 01-30-2021 End: 01-31-2021 ambulatory CASSY BEAR Facility:[facility] Procedures Date Procedure Procedure Detail Performing Clinician Start: 04-11-2021 [facility] ac Rhythm, Single SAMER Sony [...] unspecified formulation Juan Miguel SALINAS [facility] [place] 10-29-2020 SARS-CoV-2 (COVID-19 ) mRNA-1273 vaccine Juan Miguel SALINAS [facility] [place] 10-25-2020 SARS-CoV-2 (COVID-19 ) mRNA BNT-162b2 vax Juan Miguel SALINAS [facility] [place] Comment on above: Result Comment: 2022: TPV50 10-24-2020 SARS-CoV-2 (COVID-19 ) mRNA BNT-162b2 vax Juan Miguel SALINAS [facility] 10-04-2020 SARS-CoV-2 (COVID-19 ) mRNA BNT-162b2 vax Juan Miguel SALINAS [facility] [place] Comment on above: Result Comment: 2022: TPV50 10-03-2020 SARS-CoV-2 (COVID-19 ) mRNA BNT-162b2 vax Juan Miguel OSHEAL [facility] Payers Date Payer Category Payer Unknown [id number] 2.16.8 [id number] 1970 Unknown [id number] 2.16.8 [id number] 1970 Unknown [id number] 2.16.8 40.1.608004.3.579.2.727 1970 Unknown [id number] 2.16.8 40.1.582994.3.579.2.727 1970 Unknown [id number] 2.16.84 0.1.291034.3.579.2.593 1970 Unknown [id number] 2.16.84 0.1.484021.3.579.2.593 1968 Unknown [id number] 2.16.84 0.1.715492.3.579.2.593 1968 Unknown [id number] 2.16.84 0.1.129681.3.579.2.593 1968 Unknown [id number] 2.16.84 0.1.221612.3.579.2.593 1968 Unknown [id number] 2.16.84 0.1.784370.3.579.2.593 1968 Unknown [id number] 2.16.84 0.1.700134.3.579.2.593 1968 Unknown [id number] 2.16.84 0.1.276958.3.579.2.593 1968 Unknown [id number] 2.16.84 0.1.447220.3.579.2.593 1968 Unknown [id number] 2.16.84 0.1.099780.3.579.2.593 1968 Unknown [id number] 2.16.84 0.1.172389.3.579.2.593 1968 Unknown [id number] 2.16.84 0.1.573618.3.579.2.593 1968 Unknown [id number] 2.16.84 0.1.321335.3.579.2.593 1961 Unknown [id number] 1961 Unknown [id number] 1961 Unknown [id number] 1961 Unknown [id number] Social History Date Type Detail Facility Start: 09-15-2022 Tobacco smoking status Ex-smoker (fi nderic) [facility] [place] Tobacco smoking status Never [facility] [place] Sex Assigned At Female [facility] Medical Equipment Procedure Code Equipment Code Equipment Origin al Text Equipment Identifier Dates lancets, glucome ter, alcohol swabs, testing strips, insulin pen needles, Print Requisition, Supply Start: 08-25-2021 Functional Status Date Assessment Result Facility 09-15-2022 Functional Status N/A [facility] Clinical Notes 04-12-2021 to 05-05-2023 Note Date [...] trended upwards is a since seen in [place] ER 04/28/2023 and was diagnosed with vertigo [...] Take 1 table (more content not included)... [facility] 05-05-2023 Note Patient here for 3 [...] All other systems reviewed and are negative. [facility] 01-27-2023 Note Patient here for 6 [...] All other systems reviewed and are negative. [facility] 01-27-2023 Note [place] [facility]iology Consul t Note Reason for visit: [...] shows atrial fibrillation --- 07/[address] martienz HPI: Patient here for 6 mo follow [...] Prior to Visit Medication Sig Dispense Refill fwgbyoiiqw-kdqkppjmozsyg-mqyj (Fioricet) 50-300-40 mg capsule dicyclomine (Bentyl) 20 [...] 0.5 mg(2 mg/1. (more content not included)... [facility] 11-17-2022 Note PROCEDURE: XR CHEST 1 [...] by: AUDREY BO Date: 2022-11-17 12:14 [facility] 09-17-2022 Note Chief Complaint consultation for epigastric pain and nausea HPI Staff 51 year old female presents on consultation from Dr. Ann for intermittent abdominal pain. Presented to [place] ED 08/09 with complaint of epigastric pain [...] section, section, Excisi (more content not included)... [facility] Comment on above: Result Comment: Elec tronically Signed By: BRAD DIAZ, Juan Miguel Rivera\Date and Time Signed: 09/17/22 11:55 EST 08-11-2022 Note [place] Cardiology Consul t Note Reason for visit: [...] All other systems reviewed and are negative. [facility] 08-11-2022 Note [place] Cardiology Consul t Note Reason for visit: [...] Prior to Visit Medication Sig Dispense Refill wuvjsyexsf-yxgdbdundfnle-oqos (Fioricet) 50-300-40 mg capsule dicyclomine (Bentyl) 20 [...] regular Heart Sounds: (more content not included)... [facility] 04-12-2021 Note MR#: [id number] I [facility] Pt. Name: Diana Alvarez Admitted: 04/10/2021 Discharged: 04/11/2021 Date of : 1970 Physician: Orlin Wick MD DISCHARGE SUMMARY PRIMARY DIAGNOSIS: New-onset atrial flutter with RVR. SECONDARY DIAGNOSES: 1. Pulmonary hypertension. 2. COPD. 3. Diabetes. HISTORY OF PRESENT ILLNESS: This patient is a 50-year-old female with past medical history of COPD, hypertension, and diabetes, who was sent from [facility] due to atrial flutter with RVR due to COPD exacerbation. The patient was initially treated with IV Cardizem, however, it was changed to p.o. prior to transfer. The patient was also given loading dose digoxin. The patient was transferred to [facility] for cardioversion. HOSPITAL COURSE: 1. New-onset atrial [...] Wick MD Date Trans: 04/12/2021 03:25 P/mmo [id number] cc: Phillip Ann M.D. [address], [place] [address] [facility] Evaluation + Plan note No data available for this section [facility] [place] [facility] Discharge instructions No data available for this section [facility] [place] Progress note No data available for this section [facility] [place] Summary Purpose Family History No Family History Records FoundNo Family History Records FoundNo Family History Records FoundNo Family History Records FoundNo Family History Records Found Advance Directives No Advanced Directives Records FoundNo Advanced Directives Records FoundNo Advanced Directives Records FoundNo Advanced Directives Records FoundNo Advanced Directives Records Found Additional Source Comments INFORMATION SOURCE (unrecogn ized section and content) DATE CREATED AUTHOR 09/10/2021 [facility] DATE CREATED AUTHOR AUTHOR'S ORGANIZ ATION 12/24/2021 [facility] DATE CREATED AUTHOR AUTHOR'S ORGANIZ ATION 10/22/2022 [facility] DATE CREATED AUTHOR AUTHOR'S ORGANIZ ATION 11/20/2022 [facility] DATE CREATED AUTHOR AUTHOR'S ORGANIZ ATION 05/06/2023 [facility] Patient Care team informatio n (unrecognized section and content) Personnel Name: Phillip Ann MD Address: Address: [address] [place] [address] [place], [place] [address] FOR RECORDS PERTAINING TO PATIENTS WHO ARE [...] BE BASED ON THE PRIMARY CLINICAL RECORDS. [employer] [facility]. provides no warranty or guarantee of the accuracy or completeness of information in this document.
[2023-09-14 09:13] LABS: Basophils Percent Auto 0.5 % (0.2-2.0); Eosinophils Absolute Auto 0.1 10^3/uL (0.0-0.7); Eosinophils Percent Auto 0.9 % (0.9-7.0); Hematocrit 42.6 % (36.0-48.0); Hemoglobin 13.4 g/dL (12.0-16.0); Immature Granulocytes Abs Auto 0.04 10^3/uL (0.00-0.03); Immature Granulocytes Pct Auto 0.5 % (0.0-0.5); Lymphocytes Absolute Auto 2.3 10^3/uL (1.2-3.8); Lymphocytes Percent Auto 27.3 % (20.5-60.0); Mean Corpuscular HGB Conc 31.5 g/dL (29.9-35.2); Mean Corpuscular Volume 95.3 fL (81.0-99.0); Monocytes Absolute Auto 0.6 10^3/uL (0.3-0.8); Monocytes Percent Auto 7.4 % (1.7-12.0); Neutrophils Absolute Auto 5.4 10^3/uL (1.4-6.5); Neutrophils Percent Auto 63.4 % (43.0-75.0); Platelet Count 275 10^3/uL (150-450); Red Blood Count 4.47 10^6/uL (4.20-5.40); White Blood Count 8.5 10^3/uL (4.0-11.0)
[2023-09-14 10:08] LABS: Alanine Aminotransferase 26 U/L (14-59); Albumin Globulin Ratio 0.8; Albumin Level 3.5 g/dL (3.4-5.0); Alkaline Phosphatase 116 U/L (46-116); Anion Gap 15.1; Aspartate Amino Transferase 19 U/L (15-37); BUN Creatinine Ratio 20.8; Bilirubin Total 1.4 mg/dL (0.2-1.0); Carbon Dioxide 28.9 mmol/L (21.0-32.0); Chloride 101 mmol/L (98-107); Chol HDL Ratio 2.7; Cholesterol 153 mg/dL (<=200); Estimated GFR (African America >60 (>=60); Estimated GFR (Non-African Ame >60 (>=60); Free T3 2.98 pg/mL (2.18-3.98); Globulin 4.4 g/dL; Glucose 119 mg/dL (74-106); HDL Cholesterol 56 mg/dL (40-60); Sodium 141 mmol/L (136-145); Thyroid Stimulating Hormone 2.214 uIU/mL (0.358-3.740); Total Protein 7.9 g/dL (6.4-8.2); Triglycerides 196 mg/dL (<=150); VLDL CHOLESTEROL 39.2 mg/dL
[2023-09-14 10:17] LABS: Estimated Average Glucose 128 mg/dL; Glycohemoglobin A1C 6.1 % (4.5-6.2)
[2023-09-15 10:11] LABS: Insulin 24.1 uIU/mL (2.6-24.9)
== END 2023-09-14 08:49 | disposition home or self-care (01) ==
LOC: LAB 08:48
PROVIDERS: PCP Family Medicine; Visit Provider Family Medicine
DX: M10.9 Gout, unspecified (principal); E11.9 Type 2 diabetes mellitus without complications; Z12.12 Encounter for screening for malignant neoplasm of rectum; D64.9 Anemia, unspecified; E55.9 Vitamin D deficiency, unspecified
CPT/HCPCS: 36415; 80053; 80061; 82306; 83036; 83525; 83540; 84436; 84443; 84481; 85025

== ENCOUNTER 2023-10-14 02:24 | Emergency (ER) | payer SELFPAY ==
--- OUTSIDE RECORDS SUMMARY | 2023-10-14 02:30 | XMS_ITS | CCD ---
Author Organization [facility] Care Team Providers Care Coremaker Experimental Name Role Phone ELTAHAWVivien, EHAB A Admitting Unavailable ADAM BEARAB A Attending Unavailable PHILLIP ANN Referring Unavailable PHILLIP ANN Primary Care Unavailable PHILLIP ANN Referring Unavailable XIAO TORRES Surgeon Unavailable ORLIN HUI Attending Unavailable CALLI PAIGE Admitting Unavailable GA Procedure Practitioner Unavailab PHILLIP Muñoz Primary Care Unavailable GA Procedure Practitioner Unavailab Dunia Light Surgeon Unavailabl e Phillip Ann Primary Care Physician [phone] Juan Miguel SALINAS Attending Unavailable Phillip Ann Referring Unavailable Juan Miguel SALINAS Attending Unavailable Phillip Ann Referring Unavailable ALANY ., DR FISHER Primary Care Unavailable HOY [...] ANDINO Admitting Unavailable DIANA ANDINO Attending Unavailable HOY ., DR FISHER Primary [...] HOY ., DR FISHER Primary Care Unavailable FALTIGIST, HELLEN Consulting Unavailable DIAB ., FABRICIO Admitting Unavailable MARY DIETZ Consulting Unavailable DIAB ., FABRICIO Consulting Unavailable HOY ., DR FISHER Primary Care Unavailable PAY ., DR SOTO Attending Unavailable GRECHNY ., DELANEY MONTERO Consulting Unavailabl e PAY ., DR SOTO Admitting Unavailable PRABHU, GAIL Consulting Unavailable TREVIN ., EMILY Attending Unavailable [...] Morphine; Translations: [morphine] Drug Allergy 9 [facility] Repository (1 source) 19243,00; Translations: [59210,00] Propensity to adverse reactions (disorder) 0 [facility] Repository (1 source) Morphine; Translations: [morphine] Drug Allergy Feeling nervous (finding), Tachycardia (finding) General Surgery Neda (1 source) No Known Medication Allergies; Translations: [No Known Medication Allergies] Propensity to adverse reactions (disorder) [facility] Repository (1 source) dulaglutide; Translations: [DULAGLUTIDE] Drug Allergy 3 [facility] Repository Medications Current Medications Medication Drug Class(es) Dates Sig (Normalized) Sig (Original) [id number] 200 actuat albuterol 0.09 mg/actuat metered dose [...] disease (1 source) Atherosclerotic heart disease of lime coronary artery without angina pectoris; Translations: [ASHD [place] W/O ANGINA PECTORIS] Onset: 08-11-2022 Chronic [...] disorder; Translations: [Essential (primary) hypertension] Onset: 11-19-2022 3 Chronic Gout and other crystal arthropathies (2 [...] Onset: 09-13-2022 Chronic Other aftercare (1 source) 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; Translations: [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 CURRNT USE ANTICOAGULANTS] Onset: 11-19-2022 Episodic Other aftercare (1 source) Other retirement (current) drug therapy; Translations: [OTH ASSISTED CURRENT DRUG THERAPY] Onset: 11-19-2022 Episodic Other aftercare (1 source) 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; Translations: [ASSISTED USE ORAL HYPOGLYCEMIC DX] Onset: 11-19-2022 Episodic [...] Range Facility Office Visiton 05-05-2023 Follow-up visit [id number] Cyndi Alvarez Brodie 1970 F Date Provider Department Center 05/05/2023 GianaSTACY DIANA PRAVEEN [facility] Family History Problem Relation Age of Onset Breast cancer Mother Aneurysm Mother Stroke Mother Heart attack Father Coronary artery disease Father Family Status - Relation Status Age at Mother Father Level of Service:25908 [place] OFFICE/OUTPATIENT ESTABLISHED MOD MDM 30-39 MIN Normal [facility] Office Visiton 01-27-2023 Follow-up visit [id number] Cyndi Alvarez Brodie 1970 Date Provider Department Center 01/27/2023 STACY RODRIGUEZ PRAVEEN [facility] Family History Problem Relation Age of Onset Breast cancer Mother Aneurysm Mother Stroke Mother Heart attack Father Coronary artery disease Father Family Status - Relation Status Age at Mother Father Level of Service:98476 [place] OFFICE/OUTPATIENT ESTABLISHED MOD MDM 30-39 MIN Normal [facility] CBC AUTO DIFFon 10-28-2022 BASO # 0.0 103/ul Normal 0.0-0.1 [facility] Comment on above: Performed By: #### L IPID, CMP, T4, TSH, FT3 #### [facility] [address] [address] [address] Mendel Herron Basophils/100 WBC (Bld) 0.2 % Normal 0.2-2.0 [facility] Comment on above: Performed By: #### L IPID, CMP, T4, TSH, FT3 #### [facility] [address] [address] [address] Mendel Herron EO # 0.0 103/ul Normal 0.0-0.7 [facility] Comment on above: Performed By: #### L IPID, CMP, T4, TSH, FT3 #### [facility] [address] [address] [address] Mendel Herron Eosinophils/100 WBC (Bld) 0.3 % Critically low 0.9-7.0 [facility] Comment on above: Performed By: #### L IPID, CMP, T4, TSH, FT3 #### [facility] [address] [place] [address] Dr. Mendel Herron Erythrocyte distribution width (RBC) [Ratio] 13.6 % Normal 11.0-15.0 [facility] Comment on above: Performed By: #### L IPID, CMP, T4, TSH, FT3 #### [facility] [address] [place] [address] Dr. Mendel Herron Hematocrit (Bld) [Volume fraction] 40.1 % Normal 36.0-48.0 [facility] Comment on above: Performed By: #### L IPID, CMP, T4, TSH, FT3 #### [facility] [address] [place] [address] Dr. Mendel Herron Hemoglobin (Bld) [Mass/Vol] 13.0 g/dL Normal 12.0-16.0 [facility] Comment on above: Performed By: #### L IPID, CMP, T4, TSH, FT3 #### [facility] [address] [place] [address] Dr. Mendel Herron IG # 0.06 10e3/ul Critically high 0.00-0.03 [facility] Comment on above: Performed By: #### L IPID, CMP, T4, TSH, FT3 #### [facility] [address] [place] [address] Dr. Mendel Herron IG % 0.5 % Normal 0.0-0.5 [facility] Comment on above: Performed By: #### L IPID, CMP, T4, TSH, FT3 #### [facility] [address] [place] [address] Dr. Mendel Herron LYMPH # 2.8 103/ul Normal 1.2-3.8 [facility] Comment on above: Performed By: #### L IPID, CMP, T4, TSH, FT3 #### [facility] [address] [place] [address] Dr. Mendel Herron Lymphocytes/100 WBC (Bld) 22.4 % Normal 20.5-60.0 [facility] Comment on above: Performed By: #### L IPID, CMP, T4, TSH, FT3 #### [facility] [address] [place] [address] Dr. Mendel Herron MANUAL DIFF REQ NO Normal [facility] Comment on above: Performed By: #### L IPID, CMP, T4, TSH, FT3 #### [facility] [address] [place] [address] Dr. Mendel Herron MCH (RBC) [Entitic mass] 30.8 pg Normal 26.7-34.0 [facility] Comment on above: Performed By: #### L IPID, CMP, T4, TSH, FT3 #### [facility] [address] [place] [address] Dr. Mendel Herron MCHC (RBC) [Mass/Vol] 32.4 g/dL Normal 29.9-35.2 [facility] Comment on above: Performed By: #### L IPID, CMP, T4, TSH, FT3 #### [facility] [address] [place] [address] Dr. Mendel Herron MCV (RBC) [Entitic vol] 95.0 fL Normal 81.0-99.0 [facility] Comment on above: Performed By: #### L IPID, CMP, T4, TSH, FT3 #### [facility] [address] [place] [address] Dr. Mendel Herron MONO # 0.9 103/ul Critically high 0.3-0.8 [facility] Comment on above: Performed By: #### L IPID, CMP, T4, TSH, FT3 #### [facility] [address] [place] [address] Dr. Mendel Herron Monocytes/100 WBC (Bld) 7.2 % Normal 1.7-12.0 [facility] Comment on above: Performed By: #### L IPID, CMP, T4, TSH, FT3 #### [facility] [address] [place] [address] Dr. Mendel Herron NEUT # 8.6 103/ul Critically high 1.4-6.5 [facility] Comment on above: Performed By: #### L IPID, CMP, T4, TSH, FT3 #### [facility] [address] [address] [address] Mendel Herron Neutrophils/100 WBC (Bld) 69.4 % Normal 43.0-75.0 [facility] Comment on above: Performed By: #### L IPID, CMP, T4, TSH, FT3 #### [facility] [address] [address] [address] Mendel Herron Platelet mean volume (Bld) [Entitic vol] 9.9 fL Normal 9.5-13.5 [facility] Comment on above: Performed By: #### L IPID, CMP, T4, TSH, FT3 #### [facility] [address] [place] [address] Dr. Mendel Herron PLT 297 103/ul Normal 150-450 [facility] Comment on above: Performed By: #### L IPID, CMP, T4, TSH, FT3 #### [facility] [address] [place] [address] Dr. Mendel Herron RBC 4.22 106/ul Normal 4.20-5.40 [facility] Comment on above: Performed By: #### L IPID, CMP, T4, TSH, FT3 #### [facility] [address] [place] [address] Dr. Mendel Herron WBC 12.4 103/ul Critically high 4.0-11.0 [facility] Comment on above: Performed By: #### L IPID, CMP, T4, TSH, FT3 #### [facility] [address] [place] [address] Dr. Mendel Herron CRPon 10-28-2022 CRP 1.3 mg/dL Critically high <=1.0 [facility] Comment on above: Performed By: #### L IPID, CMP, T4, TSH, FT3 #### [facility] [address] [place] [address] Dr. Mendel Herron PROF CHEM 8 (BAS METB)on Anion gap [Moles/Vol] 13.6 mmol/L Normal [facility] Comment on above: Performed By: #### L IPID, CMP, T4, TSH, FT3 #### [facility] [address] [place] [address] Dr. Mendel Herron Calcium [Mass/Vol] 9.3 mg/dL Normal 8.5-10.1 [facility] Comment on above: Performed By: #### L IPID, CMP, T4, TSH, FT3 #### [facility] [address] [place] [address] Dr. Mendel Herron Chloride [Moles/Vol] 102 mmol/L Normal 98-107 [facility] Comment on above: Performed By: #### L IPID, CMP, T4, TSH, FT3 #### [facility] [address] [place] [address] Dr. Mendel Herron CO2 [Moles/Vol] 30.7 mmol/L Normal 21.0-32.0 [facility] Comment on above: Performed By: #### L IPID, CMP, T4, TSH, FT3 #### [facility] [address] [place] [address] Dr. Mendel Herron Creatinine [Mass/Vol] 0.85 mg/dL Normal 0.55-1.02 [facility] Comment on above: Performed By: #### L IPID, CMP, T4, TSH, FT3 #### [facility] [address] [place] [address] Dr. Mendel Herron EGFR-AF SURINAMESE >60 Normal >=60 [facility] Comment on above: Performed By: #### L IPID, CMP, T4, TSH, FT3 #### [facility] [address] [place] [address] Dr. Mendel Herron EGFR-NON AF SURINAMESE >60 Normal >=60 [facility] Comment on above: Performed By: #### L IPID, CMP, T4, TSH, FT3 #### [facility] [address] [place] [address] Dr. Mendel Herron Glucose [Mass/Vol] 101 mg/dL Normal 74-106 [facility] Comment on above: Performed By: #### L IPID, CMP, T4, TSH, FT3 #### [facility] [address] [place] [address] Dr. Mendel Herron Potassium [Moles/Vol] 3.3 mmol/L Critically low 3.5-5.1 [facility] Comment on above: Performed By: #### L IPID, CMP, T4, TSH, FT3 #### [facility] [address] [address] [address] Mendel Herron Sodium [Moles/Vol] 143 mmol/L Normal 136-145 [facility] Comment on above: Performed By: #### L IPID, CMP, T4, TSH, FT3 #### [facility] [address] [place] [address] Dr. Mendel Herron Urea nitrogen [Mass/Vol] 12.0 mg/dL Normal 7.0-18.0 [facility] Comment on above: Performed By: #### L IPID, CMP, T4, TSH, FT3 #### [facility] [address] [address] [address] Mendel Herron Urea nitrogen/Creatinine [Mass ratio] 14.1 mg/mg Normal [facility] Comment on above: Performed By: #### L IPID, CMP, T4, TSH, FT3 #### [facility] [address] [place] [address] Dr. Mendel Herron URIC ACID SERUMon 10-28-2022 Urate [Mass/Vol] 7.8 mg/dL Critically high 2.6-6.0 [facility] Comment on above: Performed By: #### L IPID, CMP, T4, TSH, FT3 #### [facility] [address] [place] [address] Dr. Mendel Herron XR TOES RT MIN [...] GAIL PELLETIER Date: 2022-10-28 20:53 Normal [facility] Covid-19 PCR (CVDTB)on SARS-CoV-2 (COVID-19) RNA DEIRDRE+probe Ql (Unsp spec) Not detected Normal NOT DETECTED [facility] Comment on above: Result Comment: When diagnostic [...] for this test is supported by the Production Support Specialist of Health and Human Service's declaration that [...] L IPID, CMP, T4, TSH, FT3 #### [facility] [address] [place] [address] Dr. Mendel Herron Consent for Procedure/Surger yon 09-17-2022 Consent for Procedure/Surgery [id number]: 127 Normal [facility] Facesheeton 09-17-2022 Facesheet [id number]: 127 Normal [facility] Pre-Certification Formon Pre-Certification Form [id number]: 127 Normal [facility] Ambulatory Visit Summaryon 0 09-15-2022 Ambulatory Visit Summary DIANA ALVAREZ :1970 Visit Date:09/15/2022 Ambulatory Visit Instructions Your Care Team Attending Physician - BRAD DIAZ, Juan Miguel Ortiz Primary Care Physician - Phillip Ann MD Referring Physician - Phillip Ann MD This [...] Pulmonary HTN Pure hypercholesterolemia RUQ pain Normal [facility] ED Note-Physicianon 09-14-19 ED Note-Physician [id number]: 127 Normal [facility] RAD - MISCon 09-14-2022 RAD - MISC [id number]: 127 Normal [facility] RAD - Ultrasound Reporton RAD - Ultrasound Report [id number]: 127 Normal [facility] CBC AUTO DIFFon 09-09-2022 BASO # 0.1 103/ul Normal 0.0-0.1 [facility] Comment on above: Performed By: #### L IPID, CMP, T4, TSH, FT3 #### [facility] [address] [place] [address] Dr. Mendel Herron Basophils/100 WBC (Bld) 0.7 % Normal 0.2-2.0 [facility] Comment on above: Performed By: #### L IPID, CMP, T4, TSH, FT3 #### [facility] [address] [address] [address] Mendel Herron EO # 0.1 103/ul Normal 0.0-0.7 [facility] Comment on above: Performed By: #### L IPID, CMP, T4, TSH, FT3 #### [facility] [address] [address] [address] Mendel Herron Eosinophils/100 WBC (Bld) 0.7 % Critically low 0.9-7.0 [facility] Comment on above: Performed By: #### L IPID, CMP, T4, TSH, FT3 #### [facility] [address] [place] [address] Dr. Mendel Herron Erythrocyte distribution width (RBC) [Ratio] 13.1 % Normal 11.0-15.0 [facility] Comment on above: Performed By: #### L IPID, CMP, T4, TSH, FT3 #### [facility] [address] [place] [address] Dr. Mendel Herron Hematocrit (Bld) [Volume fraction] 43.7 % Normal 36.0-48.0 [facility] Comment on above: Performed By: #### L IPID, CMP, T4, TSH, FT3 #### [facility] [address] [place] [address] Dr. Mendel Herron Hemoglobin (Bld) [Mass/Vol] 14.4 g/dL Normal 12.0-16.0 [facility] Comment on above: Performed By: #### L IPID, CMP, T4, TSH, FT3 #### [facility] [address] [place] [address] Dr. Mendel Herron IG # 0.11 10e3/ul Critically high 0.00-0.03 [facility] Comment on above: Performed By: #### L IPID, CMP, T4, TSH, FT3 #### [facility] [address] [place] [address] Dr. Mendel Herron IG % 1.3 % Critically high 0.0-0.5 [facility] Comment on above: Performed By: #### L IPID, CMP, T4, TSH, FT3 #### [facility] [address] [place] [address] Dr. Mendel Herron LYMPH # 2.4 103/ul Normal 1.2-3.8 [facility] Comment on above: Performed By: #### L IPID, CMP, T4, TSH, FT3 #### [facility] [address] [place] [address] Dr. Mendel Herron Lymphocytes/100 WBC (Bld) 27.9 % Normal 20.5-60.0 [facility] Comment on above: Performed By: #### L IPID, CMP, T4, TSH, FT3 #### [facility] [address] [place] [address] Dr. Mendel Herron MANUAL DIFF REQ NO Normal [facility] Comment on above: Performed By: #### L IPID, CMP, T4, TSH, FT3 #### [facility] [address] [place] [address] Dr. Mendel Herron MCH (RBC) [Entitic mass] 31.0 pg Normal 26.7-34.0 [facility] Comment on above: Performed By: #### L IPID, CMP, T4, TSH, FT3 #### [facility] [address] [place] [address] Dr. Mendel Herron MCHC (RBC) [Mass/Vol] 33.0 g/dL Normal 29.9-35.2 [facility] Comment on above: Performed By: #### L IPID, CMP, T4, TSH, FT3 #### [facility] [address] [place] [address] Dr. Mendel Herron MCV (RBC) [Entitic vol] 94.0 fL Normal 81.0-99.0 [facility] Comment on above: Performed By: #### L IPID, CMP, T4, TSH, FT3 #### [facility] [address] [place] [address] Dr. Mendel Herron MONO # 0.5 103/ul Normal 0.3-0.8 [facility] Comment on above: Performed By: #### L IPID, CMP, T4, TSH, FT3 #### [facility] [address] [place] [address] Dr. Mendel Herron Monocytes/100 WBC (Bld) 6.0 % Normal 1.7-12.0 [facility] Comment on above: Performed By: #### L IPID, CMP, T4, TSH, FT3 #### [facility] [address] [place] [address] Dr. Mendel Herron NEUT # 5.4 103/ul Normal 1.4-6.5 [facility] Comment on above: Performed By: #### L IPID, CMP, T4, TSH, FT3 #### [facility] [address] [place] [address] Dr. Mendel Herron Neutrophils/100 WBC (Bld) 63.4 % Normal 43.0-75.0 [facility] Comment on above: Performed By: #### L IPID, CMP, T4, TSH, FT3 #### [facility] [address] [place], [place] [id number] Dr. Mendel Herron Platelet mean volume (Bld) [Entitic vol] 9.8 fL Normal 9.5-13.5 [facility] Comment on above: Performed By: #### L IPID, CMP, T4, TSH, FT3 #### [facility] [address] [place] [address] Dr. Mendel Herron PLT 398 103/ul Normal 150-450 [facility] Comment on above: Performed By: #### L IPID, CMP, T4, TSH, FT3 #### [facility] [address] [place] [address] Dr. Mendel Herron RBC 4.65 106/ul Normal 4.20-5.40 [facility] Comment on above: Performed By: #### L IPID, CMP, T4, TSH, FT3 #### [facility] [address] [place] [address] Dr. Mendel Herron WBC 8.6 103/ul Normal 4.0-11.0 [facility] Comment on above: Performed By: #### L IPID, CMP, T4, TSH, FT3 #### [facility] [address] [place] [address] Dr. Mendel Herron FREE T3on 09-09-2022 FREE T3 2.59 pg/mlL Normal 2.18-3.98 [facility] Comment on above: Performed By: #### L IPID, CMP, T4, TSH, FT3 #### [facility] [address] [place] [address] Dr. Mendel Herron GLYCOHEMOGLOBIN A1Con 2022 ADA RECOMMENDATION SEE BELOW Normal [facility] Comment on above: Result Comment: ADA RECOMMENDED LIMIT 4.0 - 6.0 ADA THERAPEUTIC TARGET < 7.0 ACTION SUGGESTED > 7.0 Performed By: #### A 1C #### [facility] [address] [place] [address] Dr. Mendel Herron Glucose [Mass/Vol] 120 mg/dL Normal [facility] Comment on above: Performed By: #### A 1C #### [facility] [address] [place] [address] Dr. Mendel Herron HbA1c (Bld) [Mass fraction] 5.8 % Normal 4.5-6.2 [facility] Comment on above: Performed By: #### A 1C #### [facility] [address] [place] [address] Dr. Mendel Herron LIPID PROFILEon 09-09-2022 CHOL-HDL RATIO NORM SEE BELOW Normal [facility] Comment on above: Result Comment: 3.3 - 4.4 LOW RISK 4.4 - 7.1 AVERAGE RISK 7.1 - 11.0 MODERATE RISK >11.0 HIGH RISK Performed By: #### L IPID, CMP, T4, TSH, FT3 #### [facility] [address] [place] [address] Dr. Mendel Herron Cholesterol [Mass/Vol] 308 mg/dL Critically high <=200 [facility] Comment on above: Performed By: #### L IPID, CMP, T4, TSH, FT3 #### [facility] [address] [place] [address] Dr. Mendel Herron Cholesterol in HDL [Mass/Vol] 46 mg/dL Normal 40-60 [facility] Comment on above: Performed By: #### L IPID, CMP, T4, TSH, FT3 #### [facility] [address] [place] [address] Dr. Mendel Herron Cholesterol in LDL [Mass/Vol] 212.6 mg/dL Normal [facility] Comment on above: Performed By: #### L IPID, CMP, T4, TSH, FT3 #### [facility] [address] [place] [address] Dr. Mendel Herron Cholesterol.total/C holesterol in HDL [Mass ratio] 6.7 {ratio} Normal [facility] Comment on above: Performed By: #### L IPID, CMP, T4, TSH, FT3 #### [facility] [address] [place] [address] Dr. Mendel Herron HDL NORMAL > or = 60 mg/dl - LO W CARDIOVASCULAR RISK <40 mg/dl - HIGH CARDIOVASCULAR RISK Normal [facility] Comment on above: Performed By: #### L IPID, CMP, T4, TSH, FT3 #### [facility] [address] [address] [address] Mendel Herron LDL CALC NORMAL SEE BELOW Normal [facility] Comment on above: Result Comment: <100 mg/dl OPTIMAL 100 - 129 mg/dl NEAR OR ABOVE OPTIMAL 130 - 159 mg/dl BORDERLINE HIGH 160 - 189 mg/dl HIGH >190 mg/dl VERY HIGH Performed By: #### L IPID, CMP, T4, TSH, FT3 #### [facility] [address] [address] [address] Mendel Herron Triglyceride [Mass/Vol] 247 mg/dL Critically high <=150 [facility] Comment on above: Performed By: #### L IPID, CMP, T4, TSH, FT3 #### [facility] [address] [address] [address] Mendel Herron VLDL CALC 49.4 mg/dL Normal [facility] Comment on above: Performed By: #### L IPID, CMP, T4, TSH, FT3 #### [facility] [address] [place] [address] Dr. Mendel Herron PROF 14(COMP METB)on 023 Albumin [Mass/Vol] 4.0 g/dL Normal 3.4-5.0 [facility] Comment on above: Performed By: #### L IPID, CMP, T4, TSH, FT3 #### [facility] [address] [address] [address] Mendel Herron Albumin/Globulin [Mass ratio] 0.9 {ratio} Normal [facility] Comment on above: Performed By: #### L IPID, CMP, T4, TSH, FT3 #### [facility] [address] [address] [address] Mendel Herron ALP [Catalytic activity/Vol] 115 U/L Normal 46-116 [facility] Comment on above: Performed By: #### L IPID, CMP, T4, TSH, FT3 #### [facility] [address] [address] [address] Mendel Herron ALT [Catalytic activity/Vol] 30 U/L Normal 14-59 [facility] Comment on above: Performed By: #### L IPID, CMP, T4, TSH, FT3 #### [facility] [address] [place] [address] Dr. Mendel Herron Anion gap [Moles/Vol] 12.7 mmol/L Normal [facility] Comment on above: Performed By: #### L IPID, CMP, T4, TSH, FT3 #### [facility] [address] [place] [address] Dr. Mendel Herron AST [Catalytic activity/Vol] 18 U/L Normal 15-37 [facility] Comment on above: Performed By: #### L IPID, CMP, T4, TSH, FT3 #### [facility] [address] [place] [address] Dr. Mendel Herron Bilirubin [Mass/Vol] 0.7 mg/dL Normal 0.2-1.0 [facility] Comment on above: Performed By: #### L IPID, CMP, T4, TSH, FT3 #### [facility] [address] [place] [address] Dr. Mendel Herron Calcium [Mass/Vol] 9.7 mg/dL Normal 8.5-10.1 [facility] Comment on above: Performed By: #### L IPID, CMP, T4, TSH, FT3 #### [facility] [address] [place] [address] Dr. Mendel Herron Chloride [Moles/Vol] 103 mmol/L Normal 98-107 [facility] Comment on above: Performed By: #### L IPID, CMP, T4, TSH, FT3 #### [facility] [address] [place] [address] Dr. Mendel Herron CO2 [Moles/Vol] 26.5 mmol/L Normal 21.0-32.0 [facility] Comment on above: Performed By: #### L IPID, CMP, T4, TSH, FT3 #### [facility] [address] [place] [address] Dr. Mendel Herron Creatinine [Mass/Vol] 0.83 mg/dL Normal 0.55-1.02 [facility] Comment on above: Performed By: #### L IPID, CMP, T4, TSH, FT3 #### [facility] [address] [address] [address] Mendel Herron EGFR-AF SURINAMESE >60 Normal >=60 [facility] Comment on above: Performed By: #### L IPID, CMP, T4, TSH, FT3 #### [facility] [address] [address] [address] Mendel Herron EGFR-NON AF SURINAMESE >60 Normal >=60 [facility] Comment on above: Performed By: #### L IPID, CMP, T4, TSH, FT3 #### [facility] [address] [place] [address] Dr. Mendel Herron Globulin (S) [Mass/Vol] 4.4 g/dL Normal [facility] Comment on above: Performed By: #### L IPID, CMP, T4, TSH, FT3 #### [facility] [address] [place] [address] Dr. Mendel Herron Glucose [Mass/Vol] 97 mg/dL Normal 74-106 [facility] Comment on above: Performed By: #### L IPID, CMP, T4, TSH, FT3 #### [facility] [address] [place] [address] Dr. Mendel Herron Potassium [Moles/Vol] 4.2 mmol/L Normal 3.5-5.1 [facility] Comment on above: Performed By: #### L IPID, CMP, T4, TSH, FT3 #### [facility] [address] [place] [address] Dr. Mendel Herron Protein [Mass/Vol] 8.4 g/dL Critically high 6.4-8.2 [facility] Comment on above: Performed By: #### L IPID, CMP, T4, TSH, FT3 #### [facility] [address] [place] [address] Dr. Mendel Herron Sodium [Moles/Vol] 138 mmol/L Normal 136-145 [facility] Comment on above: Performed By: #### L IPID, CMP, T4, TSH, FT3 #### [facility] [address] [place] [address] Dr. Mendel eHrron Urea nitrogen [Mass/Vol] 12.0 mg/dL Normal 7.0-18.0 [facility] Comment on above: Performed By: #### L IPID, CMP, T4, TSH, FT3 #### [facility] [address] [place] [address] Dr. Mendel Herron Urea nitrogen/Creatinine [Mass ratio] 14.5 mg/mg Normal [facility] Comment on above: Performed By: #### L IPID, CMP, T4, TSH, FT3 #### [facility] [address] [place] [address] Dr. Mendel Herron T4on 09-09-2022 T4 [Mass/Vol] 8.80 ug/dL Normal 4.80-13.90 [facility] Comment on above: Performed By: #### L IPID, CMP, T4, TSH, FT3 #### [facility] [address] [place] [address] Dr. Mendel Herron TSHon 09-09-2022 TSH 0.898 uIU/mL Normal 0.358-3.740 [facility] Comment on above: Performed By: #### L IPID, CMP, T4, TSH, FT3 #### [facility] [address] [place] [address] Dr. Mendel Herron VITAMIN D 25 OHon 09-09-2022 VIT D 25-OH 24.0 ng/mL Normal [facility] Comment on above: Performed By: #### L IPID, CMP, T4, TSH, FT3 #### [facility] [address] [place] [address] Dr. Mendel Herron VIT D RANGES SEE BELOW Normal [facility] Comment on above: Result Comment: <20 ng/mL Vit D deficient 20 - <30 ng/mL Vit D insufficient 30 - 100 ng/mL Vit D sufficient >100 ng/mL Potential Toxicity Performed By: #### L IPID, CMP, T4, TSH, FT3 #### [facility] [address] [place] [address] Dr. Mendel Herron Physician Referralon 023 Physician Referral [phone] [id number]: [id number] Normal [facility] [place] HEPATOBILIARY SCAN W EFon 08-20-2022 NM [...] by: VIVI GARY Date: 2022-08-20 16:07 Normal [facility] Office Visiton 08-11-2022 Follow-up visit [id number] Cyndi Alvarez 1970 F Date Provider Department Center 08/11/2022 CURTIS VALDES [facility] Family History Problem Relation Age of Onset Breast cancer Mother Aneurysm Mother Stroke Mother Heart attack Father Coronary artery disease Father Family Status - Relation Status Age at Mother Father Level of Service:12409 [place] OFFICE/OUTPATIENT ESTABLISHED MOD MDM 30-39 MIN Reason for Visit and Comments: Atrial Fibrillation [80] Atrial Flutter [101] Normal [facility] US SINGLE QUAD RT UPPERon US [...] JEAN LOPES Date: 2022-08-11 15:50 Normal [facility] CARDIAC SUBHA ADMITon 023 CK [Catalytic activity/Vol] 30 U/L Normal 26-192 [facility] Comment on above: Performed By: #### L IPID, CMP, T4, TSH, FT3 #### [facility] [address] [address] [address] Mendel Herron CK.MB [Mass/Vol] 1.02 ng/mL Normal <=3.60 [facility] Comment on above: Performed By: #### L IPID, CMP, T4, TSH, FT3 #### [facility] [address] [address] [address] Mendel Herron HSTROP 32.8 pg/mL Normal 4.0-51.3 [facility] Comment on above: Result Comment: CUT- OFF POINTS HAVE BEEN ESTABLISHED BASED ON THE FOURTH UNIVERSAL DEFINITIONS OF MYOCARDIAL INFARCTION. THE UPPER REFERENCE LIMIT (URL) OF TROPONIN, DEFINED THE 99TH PERCENTILE OF cTnI DISTRIBUTION IN A REFERENCE POPULATION, HAS BEEN CONFIRMED THE DECISION THRESHOLD FOR [place] DIAGNOSIS. Performed By: #### L IPID, CMP, T4, TSH, FT3 #### [facility] [address] [address] [address] Mendel Herron SONYA 23 ng/mL Normal 9-82 [facility] Comment on above: Performed By: #### L IPID, CMP, T4, TSH, FT3 #### [facility] [address] [place] [address] Dr. Mendel Herron CBC AUTO DIFFon 08-09-2022 BASO # 0.0 103/ul Normal 0.0-0.1 [facility] Comment on above: Performed By: #### L IPID, CMP, T4, TSH, FT3 #### [facility] [address] [place] [address] Dr. Mendel Herron Basophils/100 WBC (Bld) 0.3 % Normal 0.2-2.0 [facility] Comment on above: Performed By: #### L IPID, CMP, T4, TSH, FT3 #### [facility] [address] [place] [address] Dr. Mendel Herron EO # 0.0 103/ul Normal 0.0-0.7 [facility] Comment on above: Performed By: #### L IPID, CMP, T4, TSH, FT3 #### [facility] [address] [place] [address] Dr. Mendel Herron Eosinophils/100 WBC (Bld) 0.3 % Critically low 0.9-7.0 [facility] Comment on above: Performed By: #### L IPID, CMP, T4, TSH, FT3 #### [facility] [address] [place] [address] Dr. Mendel Herron Erythrocyte distribution width (RBC) [Ratio] 13.1 % Normal 11.0-15.0 [facility] Comment on above: Performed By: #### L IPID, CMP, T4, TSH, FT3 #### [facility] [address] [place] [address] Dr. Mendel Herron Hematocrit (Bld) [Volume fraction] 42.7 % Normal 36.0-48.0 [facility] Comment on above: Performed By: #### L IPID, CMP, T4, TSH, FT3 #### [facility] [address] [place] [address] Dr. Mendel Herron Hemoglobin (Bld) [Mass/Vol] 15.4 g/dL Normal 12.0-16.0 [facility] Comment on above: Performed By: #### L IPID, CMP, T4, TSH, FT3 #### [facility] [address] [place] [address] Dr. Mendel Herron IG # 0.05 10e3/ul Critically high 0.00-0.03 [facility] Comment on above: Performed By: #### L IPID, CMP, T4, TSH, FT3 #### [facility] [address] [place] [address] Dr. Mendel Herron IG % 0.4 % Normal 0.0-0.5 [facility] Comment on above: Performed By: #### L IPID, CMP, T4, TSH, FT3 #### [facility] [address] [place] [address] Dr. Mendel Herron LYMPH # 2.5 103/ul Normal 1.2-3.8 [facility] Comment on above: Performed By: #### L IPID, CMP, T4, TSH, FT3 #### [facility] [address] [place] [address] Dr. Mendel Herron Lymphocytes/100 WBC (Bld) 21.2 % Normal 20.5-60.0 [facility] Comment on above: Performed By: #### L IPID, CMP, T4, TSH, FT3 #### [facility] [address] [place] [address] Dr. Mendel Herron MANUAL DIFF REQ NO Normal [facility] Comment on above: Performed By: #### L IPID, CMP, T4, TSH, FT3 #### [facility] [address] [place] [address] Dr. Mendel Herron MCH (RBC) [Entitic mass] 31.7 pg Normal 26.7-34.0 [facility] Comment on above: Performed By: #### L IPID, CMP, T4, TSH, FT3 #### [facility] [address] [place] [address] Dr. Mendel Herron MCHC (RBC) [Mass/Vol] 36.1 g/dL Critically high 29.9-35.2 [facility] Comment on above: Performed By: #### L IPID, CMP, T4, TSH, FT3 #### [facility] [address] [place] [address] Dr. Mendel Herron MCV (RBC) [Entitic vol] 87.9 fL Normal 81.0-99.0 [facility] Comment on above: Performed By: #### L IPID, CMP, T4, TSH, FT3 #### [facility] [address] [place] [address] Dr. Mendel Herron MONO # 0.7 103/ul Normal 0.3-0.8 [facility] Comment on above: Performed By: #### L IPID, CMP, T4, TSH, FT3 #### [facility] [address] [place] [address] Dr. Mendel Herron Monocytes/100 WBC (Bld) 6.3 % Normal 1.7-12.0 [facility] Comment on above: Performed By: #### L IPID, CMP, T4, TSH, FT3 #### [facility] [address] [place] [address] Dr. Mendel Herron NEUT # 8.4 103/ul Critically high 1.4-6.5 [facility] Comment on above: Performed By: #### L IPID, CMP, T4, TSH, FT3 #### [facility] [address] [place] [address] Dr. Mendel Herron Neutrophils/100 WBC (Bld) 71.5 % Normal 43.0-75.0 [facility] Comment on above: Performed By: #### L IPID, CMP, T4, TSH, FT3 #### [facility] [address] [place] [address] Dr. Mendel Herron Platelet mean volume (Bld) [Entitic vol] 9.8 fL Normal 9.5-13.5 [facility] Comment on above: Performed By: #### L IPID, CMP, T4, TSH, FT3 #### [facility] [address] [place] [address] Dr. Mendel Herron PLT 374 103/ul Normal 150-450 [facility] Comment on above: Performed By: #### L IPID, CMP, T4, TSH, FT3 #### [facility] [address] [address] [address] Mendel Herron RBC 4.86 106/ul Normal 4.20-5.40 [facility] Comment on above: Performed By: #### L IPID, CMP, T4, TSH, FT3 #### [facility] [address] [address] [address] Mendel Herron WBC 11.7 103/ul Critically high 4.0-11.0 [facility] Comment on above: Performed By: #### L IPID, CMP, T4, TSH, FT3 #### [facility] [address] [place] [address] HEAD WO CONon [...] HELLEN VELAZQUEZ Date: 2022-08-09 15:23 Normal [facility] Covid-19 PCR ([facility])on 07-20 SARS-CoV-2 (COVID-19) RNA DEIRDRE+probe Ql (Unsp spec) Not detected Normal NOT DETECTED [facility] Comment on above: Result Comment: When diagnostic [...] for this test is supported by the [place] of Health and Human Service's declaration that [...] L IPID, CMP, T4, TSH, FT3 #### [facility] [address] [place] [address] Dr. Mendel Herron ER URINE PROFILEon 3 Bilirubin Ql (U) Negative Normal NEGATIVE [facility] Comment on above: Performed By: #### L IPID, CMP, T4, TSH, FT3 #### [facility] [address] [place] [address] Dr. Mendel Herron Clarity (U) CLEAR Normal CLEAR [facility] Comment on above: Performed By: #### L IPID, CMP, T4, TSH, FT3 #### [facility] [address] [place] [address] Dr. Mendel Herron Color (U) LT. YELLOW Normal YELLOW [facility] Comment on above: Performed By: #### L IPID, CMP, T4, TSH, FT3 #### [facility] [address] [place] [address] Dr. Mendel Herron ERUAHD A micrscopic examina tion will be performed if indicated. Normal [facility] Comment on above: Performed By: #### L IPID, CMP, T4, TSH, FT3 #### [facility] [address] [place] [address] Dr. Mendel Herron Glucose Ql (U) Negative Normal NEGATIVE [facility] Comment on above: Performed By: #### L IPID, CMP, T4, TSH, FT3 #### [facility] [address] [address] [address] Mendel Herron Hemoglobin Ql (U) TRACE-INTACT Abnormal NEGATIVE [facility] Comment on above: Performed By: #### L IPID, CMP, T4, TSH, FT3 #### [facility] [address] [address] [address] Mendel Herron Ketones Ql (U) Negative Normal NEGATIVE [facility] Comment on above: Performed By: #### L IPID, CMP, T4, TSH, FT3 #### [facility] [address] [address] [address] Mendel Herron LEUKOCYTES Negative Normal NEGATIVE [facility] Comment on above: Performed By: #### L IPID, CMP, T4, TSH, FT3 #### [facility] [address] [place] [address] Dr. Mendel Herron Nitrite Ql (U) Negative Normal NEGATIVE [facility] Comment on above: Performed By: #### L IPID, CMP, T4, TSH, FT3 #### [facility] [address] [address] [address] Mendel Herron pH (U) 5.0 [pH] Normal 5-9 [facility] Comment on above: Performed By: #### L IPID, CMP, T4, TSH, FT3 #### [facility] [address] [address] [address] Mendel Herron SPEC GRAVITY 1.015 Normal 1.005-<=1.[address] [place] [address] Comment on above: Performed By: #### L IPID, CMP, T4, TSH, FT3 #### [facility] [address] [address] [address] Mendel Herron UA PROTEIN Negative Normal NEGATIVE/ TRACE [facility] Comment on above: Performed By: #### L IPID, CMP, T4, TSH, FT3 #### [facility] [address] [address] [address] Mendel Herron UR MICRO IND INDICATED Normal [facility] Comment on above: Performed By: #### L IPID, CMP, T4, TSH, FT3 #### [facility] [address] [place] [address] Dr. Mendel Herron Urobilinogen Qn (U) 0.2 {James'U}/dL Normal 0.2 - 1. 0 [facility] Comment on above: Performed By: #### L IPID, CMP, T4, TSH, FT3 #### [facility] [address] [address] [address] Mendel Herron LIPASEon 08-09-2022 Lipase [Catalytic activity/Vol] 114.0 U/L Normal 73.0-393.0 [facility] Comment on above: Performed By: #### L IPA, BMP, CMADM #### [facility] [address] [place] [address] Dr. Mendel Herron PROF CHEM 8 (BAS METB)on Anion gap [Moles/Vol] 18.9 mmol/L Normal [facility] Comment on above: Performed By: #### L IPA, BMP, CMADM #### [facility] [address] [place] [address] Dr. Mendel Herron Calcium [Mass/Vol] 9.4 mg/dL Normal 8.5-10.1 [facility] Comment on above: Performed By: #### L IPA, BMP, CMADM #### [facility] [address] [place] [address] Dr. Mendel Herron Chloride [Moles/Vol] 97 mmol/L Critically low 98-107 [facility] Comment on above: Performed By: #### L IPA, BMP, CMADM #### [facility] [address] [place] [address] Dr. Mendel Herron CO2 [Moles/Vol] 26.0 mmol/L Normal 21.0-32.0 [facility] Comment on above: Performed By: #### L IPA, BMP, CMADM #### [facility] [address] [place] [address] Dr. Mendel Herron Creatinine [Mass/Vol] 0.85 mg/dL Normal 0.55-1.02 [facility] Comment on above: Performed By: #### L IPA, BMP, CMADM #### [facility] [address] [address] [address] Mendel Herron EGFR-AF SURINAMESE >60 Normal >=60 [facility] Comment on above: Performed By: #### L IPA, BMP, CMADM #### [facility] [address] [address] [address] Mendel Herron EGFR-NON AF SURINAMESE >60 Normal >=60 [facility] Comment on above: Performed By: #### L IPA, BMP, CMADM #### [facility] [address] [address] [address] Mendel Herron Glucose [Mass/Vol] 120 mg/dL Critically high 74-106 [facility] Comment on above: Performed By: #### L IPA, BMP, CMADM #### [facility] [address] [address] [address] Mendel Herron Potassium [Moles/Vol] 3.9 mmol/L Normal 3.5-5.1 [facility] Comment on above: Performed By: #### L IPA, BMP, CMADM #### [facility] [address] [address] [address] Mendel Herron Sodium [Moles/Vol] 138 mmol/L Normal 136-145 [facility] Comment on above: Performed By: #### L IPA, BMP, CMADM #### [facility] [address] [address] [address] Mendel Herron Urea nitrogen [Mass/Vol] 17.0 mg/dL Normal 7.0-18.0 [facility] Comment on above: Performed By: #### L IPA, BMP, CMADM #### [facility] [address] [address] [address] Mendel Herron Urea nitrogen/Creatinine [Mass ratio] 20.0 mg/mg Normal [facility] Comment on above: Performed By: #### L IPA, BMP, CMADM #### [facility] [address] [address] [address] Mendel Herron TROPONIN, HIGH SENSITIVITYon 08-09-2022 HSTROP 32.5 pg/mL Normal 4.0-51.3 [facility] Comment on above: Result Comment: CUT- OFF POINTS HAVE BEEN ESTABLISHED BASED ON THE FOURTH UNIVERSAL DEFINITIONS OF MYOCARDIAL INFARCTION. THE UPPER REFERENCE LIMIT (URL) OF TROPONIN, DEFINED THE 99TH PERCENTILE OF cTnI DISTRIBUTION IN A REFERENCE POPULATION, HAS BEEN CONFIRMED THE DECISION THRESHOLD FOR [place] DIAGNOSIS. Performed By: #### L IPID, CMP, T4, TSH, FT3 #### [facility] [address] [address] [address] Mendel Herron URINE MICROSCOPIC ONLYon BACTERIA NONE SEEN Normal NONE SEEN [facility] Comment on above: Performed By: #### L IPID, CMP, T4, TSH, FT3 #### [facility] [address] [place] [address] Dr. Mendel Herron Bacteria identified Cx Nom (U) NOT INDICATED Normal [facility] Comment on above: Performed By: #### L IPID, CMP, T4, TSH, FT3 #### [facility] [address] [place] [address] Dr. Mendel Herron CAST NONE SEEN Normal NONE SEEN [facility] Comment on above: Performed By: #### L IPID, CMP, T4, TSH, FT3 #### [facility] [address] [place] [address] Dr. Mendel Herron Crystals LM Nom (Urine sed) NONE SEEN Normal NONE SEEN [facility] Comment on above: Performed By: #### L IPID, CMP, T4, TSH, FT3 #### [facility] [address] [address] [address] Mendel Herron Epithelial cells LM Ql (Urine sed) NONE SEEN Normal NONE SEEN /RARE [facility] Comment on above: Performed By: #### L IPID, CMP, T4, TSH, FT3 #### [facility] [address] [place] [address] Dr. Mendel Herron MUCOUS NONE SEEN Normal NONE SEEN [facility] Comment on above: Performed By: #### L IPID, CMP, T4, TSH, FT3 #### [facility] [address] [place] [address] Dr. Mendel Herron RBC 0-2 Normal 0-2 [facility] Comment on above: Performed By: #### L IPID, CMP, T4, TSH, FT3 #### [facility] [address] [address] [address] Mendel Herron WBC NONE SEEN Normal NONE SEEN [facility] Comment on above: Performed By: #### L IPID, CMP, T4, TSH, FT3 #### [facility] [address] [address] [address] Mendel Herron XR CHEST 1 Von [...] by: MARY DIETZ Date: 2022-08-09 15:18 Normal [facility] H PYLORI ANTIBODY IGGon 07-20 H. PYLORI IGG ABS 0.11 Index Value Normal 0.00-0.79 [facility] Comment on above: Result Comment: Nega tive <0.80 Equivocal 0.80 - 0.89 Positive >0.89 Performed By: #### L IPID, CMP, T4, TSH, FT3 #### [facility] [address] [place] [address] Dr. Mendel Herron AMYLASEon 08-06-2022 Amylase [Catalytic activity/Vol] 57 U/L Normal 25-115 [facility] Comment on above: Performed By: #### L IPID, CMP, T4, TSH, FT3 #### [facility] [address] [address] [address] Mendel Herron CBC AUTO DIFFon 08-06-2022 BASO # 0.1 103/ul Normal 0.0-0.1 [facility] Comment on above: Performed By: #### L IPID, CMP, T4, TSH, FT3 #### [facility] [address] [place] [address] Dr. Mendel Herron Basophils/100 WBC (Bld) 0.7 % Normal 0.2-2.0 [facility] Comment on above: Performed By: #### L IPID, CMP, T4, TSH, FT3 #### [facility] [address] [place] [address] Dr. Mendel Herron EO # 0.1 103/ul Normal 0.0-0.7 [facility] Comment on above: Performed By: #### L IPID, CMP, T4, TSH, FT3 #### [facility] [address] [place] [address] Dr. Mendel Herron Eosinophils/100 WBC (Bld) 0.5 % Critically low 0.9-7.0 [facility] Comment on above: Performed By: #### L IPID, CMP, T4, TSH, FT3 #### [facility] [address] [place] [address] Dr. Mendel Herron Erythrocyte distribution width (RBC) [Ratio] 13.7 % Normal 11.0-15.0 [facility] Comment on above: Performed By: #### L IPID, CMP, T4, TSH, FT3 #### [facility] [address] [place] [address] Dr. Mendel Herron Hematocrit (Bld) [Volume fraction] 46.2 % Normal 36.0-48.0 [facility] Comment on above: Performed By: #### L IPID, CMP, T4, TSH, FT3 #### [facility] [address] [place] [address] Dr. Mendel Herron Hemoglobin (Bld) [Mass/Vol] 15.1 g/dL Normal 12.0-16.0 [facility] Comment on above: Performed By: #### L IPID, CMP, T4, TSH, FT3 #### [facility] [address] [place] [address] Dr. Mendel Herron IG # 0.06 10e3/ul Critically high 0.00-0.03 [facility] Comment on above: Performed By: #### L IPID, CMP, T4, TSH, FT3 #### [facility] [address] [place] [address] Dr. Mendel Herron IG % 0.6 % Critically high 0.0-0.5 [facility] Comment on above: Performed By: #### L IPID, CMP, T4, TSH, FT3 #### [facility] [address] [place] [address] Dr. Mendel Herron LYMPH # 2.5 103/ul Normal 1.2-3.8 [facility] Comment on above: Performed By: #### L IPID, CMP, T4, TSH, FT3 #### [facility] [address] [place] [address] Dr. Mendel Herron Lymphocytes/100 WBC (Bld) 23.4 % Normal 20.5-60.0 [facility] Comment on above: Performed By: #### L IPID, CMP, T4, TSH, FT3 #### [facility] [address] [place] [address] Dr. Mendel Herron MANUAL DIFF REQ NO Normal [facility] Comment on above: Performed By: #### L IPID, CMP, T4, TSH, FT3 #### [facility] [address] [place] [address] Dr. Mendel Herron MCH (RBC) [Entitic mass] 31.4 pg Normal 26.7-34.0 [facility] Comment on above: Performed By: #### L IPID, CMP, T4, TSH, FT3 #### [facility] [address] [place] [address] Dr. Mendel Herron MCHC (RBC) [Mass/Vol] 32.7 g/dL Normal 29.9-35.2 [facility] Comment on above: Performed By: #### L IPID, CMP, T4, TSH, FT3 #### [facility] [address] [place] [address] Dr. Mendel Herron MCV (RBC) [Entitic vol] 96.0 fL Normal 81.0-99.0 [facility] Comment on above: Performed By: #### L IPID, CMP, T4, TSH, FT3 #### [facility] [address] [place] [address] Dr. Mendel Herron MONO # 0.6 103/ul Normal 0.3-0.8 [facility] Comment on above: Performed By: #### L IPID, CMP, T4, TSH, FT3 #### [facility] [address] [place] [address] Dr. Mendel Herron Monocytes/100 WBC (Bld) 6.0 % Normal 1.7-12.0 [facility] Comment on above: Performed By: #### L IPID, CMP, T4, TSH, FT3 #### [facility] [address] [place] [address] Dr. Mendel Herron NEUT # 7.4 103/ul Critically high 1.4-6.5 [facility] Comment on above: Performed By: #### L IPID, CMP, T4, TSH, FT3 #### [facility] [address] [place] [address] Dr. Mendel Herron Neutrophils/100 WBC (Bld) 68.8 % Normal 43.0-75.0 [facility] Comment on above: Performed By: #### L IPID, CMP, T4, TSH, FT3 #### [facility] [address] [place] [address] Dr. Mendel Herron Platelet mean volume (Bld) [Entitic vol] 9.7 fL Normal 9.5-13.5 [facility] Comment on above: Performed By: #### L IPID, CMP, T4, TSH, FT3 #### [facility] [address] [place] [address] Dr. Mendel Herron PLT 331 103/ul Normal 150-450 [facility] Comment on above: Performed By: #### L IPID, CMP, T4, TSH, FT3 #### [facility] [address] [place] [address] Dr. Mendel Herron RBC 4.81 106/ul Normal 4.20-5.40 [facility] Comment on above: Performed By: #### L IPID, CMP, T4, TSH, FT3 #### [facility] [address] [place] [address] Dr. Mendel Herron WBC 10.7 103/ul Normal 4.0-11.0 [facility] Comment on above: Performed By: #### L IPID, CMP, T4, TSH, FT3 #### [facility] [address] [address] [address] HEAD WO CONon [...] JEAN LOPES Date: 2022-08-06 08:39 Normal [facility] LIPASEon 08-06-2022 Lipase [Catalytic activity/Vol] 125.0 U/L Normal 73.0-393.0 [facility] Comment on above: Performed By: #### L IPID, CMP, T4, TSH, FT3 #### [facility] [address] [address] [address] Mendel Herron PROF 14(COMP METB)on 023 Albumin [Mass/Vol] 3.7 g/dL Normal 3.4-5.0 [facility] Comment on above: Performed By: #### L IPID, CMP, T4, TSH, FT3 #### [facility] [address] [address] [address] Mendel Herron Albumin/Globulin [Mass ratio] 0.9 {ratio} Normal [facility] Comment on above: Performed By: #### L IPID, CMP, T4, TSH, FT3 #### [facility] [address] [address] [address] Mendel Herron ALP [Catalytic activity/Vol] 110 U/L Normal 46-116 [facility] Comment on above: Performed By: #### L IPID, CMP, T4, TSH, FT3 #### [facility] [address] [place] [address] Dr. Mendel Herron ALT [Catalytic activity/Vol] 25 U/L Normal 14-59 [facility] Comment on above: Performed By: #### L IPID, CMP, T4, TSH, FT3 #### [facility] [address] [place] [address] Dr. Mendel Herron Anion gap [Moles/Vol] 14.0 mmol/L Normal [facility] Comment on above: Performed By: #### L IPID, CMP, T4, TSH, FT3 #### [facility] [address] [place] [address] Dr. Mendel Herron AST [Catalytic activity/Vol] 16 U/L Normal 15-37 [facility] Comment on above: Performed By: #### L IPID, CMP, T4, TSH, FT3 #### [facility] [address] [place] [address] Dr. Mendel Herron Bilirubin [Mass/Vol] 0.6 mg/dL Normal 0.2-1.0 [facility] Comment on above: Performed By: #### L IPID, CMP, T4, TSH, FT3 #### [facility] [address] [address] [address] Mendel Herron Calcium [Mass/Vol] 9.3 mg/dL Normal 8.5-10.1 [facility] Comment on above: Performed By: #### L IPID, CMP, T4, TSH, FT3 #### [facility] [address] [address] [address] Mendel Herron Chloride [Moles/Vol] 103 mmol/L Normal 98-107 [facility] Comment on above: Performed By: #### L IPID, CMP, T4, TSH, FT3 #### [facility] [address] [address] [address] Mendel Herron CO2 [Moles/Vol] 27.3 mmol/L Normal 21.0-32.0 [facility] Comment on above: Performed By: #### L IPID, CMP, T4, TSH, FT3 #### [facility] [address] [address] [address] Mendel Herron Creatinine [Mass/Vol] 0.71 mg/dL Normal 0.55-1.02 [facility] Comment on above: Performed By: #### L IPID, CMP, T4, TSH, FT3 #### [facility] [address] [place] [address] Dr. Mendel Herron EGFR-AF SURINAMESE >60 Normal >=60 [facility] Comment on above: Performed By: #### L IPID, CMP, T4, TSH, FT3 #### [facility] [address] [place] [address] Dr. Mendel Herron EGFR-NON AF SURINAMESE >60 Normal >=60 [facility] Comment on above: Performed By: #### L IPID, CMP, T4, TSH, FT3 #### [facility] [address] [place] [address] Dr. Mendel Herron Globulin (S) [Mass/Vol] 4.3 g/dL Normal [facility] Comment on above: Performed By: #### L IPID, CMP, T4, TSH, FT3 #### [facility] [address] [place] [address] Dr. Mendel Herron Glucose [Mass/Vol] 102 mg/dL Normal 74-106 [facility] Comment on above: Performed By: #### L IPID, CMP, T4, TSH, FT3 #### [facility] [address] [place] [address] Dr. Mendel Herron Potassium [Moles/Vol] 4.3 mmol/L Normal 3.5-5.1 [facility] Comment on above: Performed By: #### L IPID, CMP, T4, TSH, FT3 #### [facility] [address] [place] [address] Dr. Mendel Herron Protein [Mass/Vol] 8.0 g/dL Normal 6.4-8.2 [facility] Comment on above: Performed By: #### L IPID, CMP, T4, TSH, FT3 #### [facility] [address] [place] [address] Dr. Mendel Herron Sodium [Moles/Vol] 140 mmol/L Normal 136-145 [facility] Comment on above: Performed By: #### L IPID, CMP, T4, TSH, FT3 #### [facility] [address] [place] [address] Dr. Mendel Herron Urea nitrogen [Mass/Vol] 19.0 mg/dL Critically high 7.0-18.0 [facility] Comment on above: Performed By: #### L IPID, CMP, T4, TSH, FT3 #### [facility] [address] [place] [address] Dr. Mendel Herron Urea nitrogen/Creatinine [Mass ratio] 26.8 mg/mg Normal [facility] Comment on above: Performed By: #### L IPID, CMP, T4, TSH, FT3 #### [facility] [address] [place] [address] Dr. Mendel Herron Covid-19 PCR ([facility])on 06-19 SARS-CoV-2 (COVID-19) RNA DEIRDRE+probe Ql (Unsp spec) Not detected Normal NOT DETECTED [facility] Comment on above: Result Comment: This test is not yet approved or cleared by the [place] FDA. When there are no FDA-approved or cleared tests available, and other criteria are met, FDA can make tests available under an emergency access mechanism called an Emergency Use Authorization (EUA). The EUA for this test is supported by the Production Support Specialist of Health and Human Service's (HHS's) declaration [...] SARS-CoV-2. Performed By: #### C VDTBH #### [facility] [address] [place] [address] Dr. Mendel Herron INFLUENZA A AND B AGon 07-16 [facility] SEE BELOW Normal [facility] Comment on above: Result Comment: Nega tive for Flu A protein angiten. Infection due to Flu A cannot be ruled out. Flu A angiten in the sample may be below the detection limit of the test. Performed By: #### L IPID, CMP, T4, TSH, FT3 #### [facility] [address] [place] [address] Dr. Mendel Herron INFLUBNEG SEE BELOW Normal [facility] Comment on above: Result Comment: Nega tive for Flu B protein antigen. Infection due to Flu B cannot be ruled out. Flu B antigen in the sample may be below the detection limit of the test. Performed By: #### L IPID, CMP, T4, TSH, FT3 #### [facility] [address] [place] [address] Dr. Mendel Herron INFLUENZA A AG Negative Normal NEGATIVE SEE COMMENT [facility] Comment on above: Performed By: #### L IPID, CMP, T4, TSH, FT3 #### [facility] [address] [place] [address] Dr. Mendel Herron INFLUENZA B AG Negative Normal NEGATIVE SEE COMMENT [facility] Comment on above: Performed By: #### L IPID, CMP, T4, TSH, FT3 #### [facility] [address] [place] [address] Dr. Mendel Herron [facility] SARS-CoV-2 (COVID-19) RNA DEIRDRE+probe Ql (Unsp spec) Not detected Normal NOT DETECTED [facility] Comment on above: Result Comment: This test is not yet approved or cleared by the [place] FDA. When there are no FDA-approved or cleared tests available, and other criteria are met, FDA can make tests available under an emergency access mechanism called an Emergency Use Authorization (EUA). The EUA for this test is supported by the Production Support Specialist of Health and Human Service's (HHS's) declaration [...] L IPID, CMP, T4, TSH, FT3 #### [facility] [address] [place] [address] Dr. Mendel Herron INFLUENZA A AND B [facility] 05-11 [facility] SEE BELOW Normal [facility] Comment on above: Result Comment: Nega tive for Flu A protein angiten. Infection due to Flu A cannot be ruled out. Flu A angiten in the sample may be below the detection limit of the test. Performed By: #### L IPID, CMP, T4, TSH, FT3 #### [facility] [address] [place] [address] Dr. Mendel Herron [facility] SEE BELOW Normal [facility] Comment on above: Result Comment: Nega tive for Flu B protein antigen. Infection due to Flu B cannot be ruled out. Flu B antigen in the sample may be below the detection limit of the test. Performed By: #### L IPID, CMP, T4, TSH, FT3 #### [facility] [address] [place] [address] Dr. Mendel Herron INFLUENZA A AG Negative Normal NEGATIVE SEE COMMENT [facility] Comment on above: Performed By: #### L IPID, CMP, T4, TSH, FT3 #### [facility] [address] [place] [address] Dr. Mendel Herron INFLUENZA B AG Negative Normal NEGATIVE SEE COMMENT [facility] Comment on above: Performed By: #### L IPID, CMP, T4, TSH, FT3 #### [facility] [address], [place] [address] Dr. Mendel Herron INTERNAL CONTROLS Within Normal Limits Normal Wi thin Normal Limits [facility] Comment on above: Performed By: #### L IPID, CMP, T4, TSH, FT3 #### [facility] [address], [place] [address] Dr. Mendel Herron Comprehensive Metabolic Empo n 12-23-2021 Albumin [Mass/Vol] 3.7 g/dL Normal 3.2-5.5 [facility] Comment on above: Performed By: #### E BS CMP, EBS LIPID #### [facility] [address] [id number] [place] Albumin/Globulin [Mass ratio] 1.0 {ratio} Normal [facility] Comment on above: Performed By: #### E BS CMP, EBS LIPID #### [facility] [address] [place] [address] [place] ALP [Catalytic activity/Vol] 159 U/L High 32-92 [facility] Comment on above: Performed By: #### E BS CMP, EBS LIPID #### [facility] [address] [place] [address] [place] ALT [Catalytic activity/Vol] 28 U/L Normal 10-60 [facility] Comment on above: Performed By: #### E BS CMP, EBS LIPID #### [facility] [address] [place] [address] [place] AST [Catalytic activity/Vol] 27 U/L Normal 10-42 [facility] Comment on above: Performed By: #### E BS CMP, EBS LIPID #### [facility] [address] [place] [address] [place] Bilirubin [Mass/Vol] 1.2 mg/dL Normal 0.3-1.2 [facility] Comment on above: Performed By: #### E BS CMP, EBS LIPID #### [facility] [address] [place] [address] [place] Calcium [Mass/Vol] 9.2 mg/dL Normal 8.2-10.2 [facility] Comment on above: Performed By: #### E BS CMP, EBS LIPID #### [facility] [address] [place] [address] [place] Chloride [Moles/Vol] 100 mmol/L Normal 95-114 [facility] Comment on above: Performed By: #### E BS CMP, EBS LIPID #### [facility] [address] [place] [address] [place] CO2 [Moles/Vol] 20.6 mmol/L Low 22.0-30.0 [facility] Comment on above: Performed By: #### E BS CMP, EBS LIPID #### [facility] [address] Creatinine [Mass/Vol] 0.57 mg/dL Normal 0.44-1.03 [facility] Comment on above: Performed By: #### E BS CMP, EBS LIPID #### [address] Estimated GFR ( Ni > 60 Normal [facility] Comment on above: Result Comment: GFR estimated reference range: According to KDOQI guidelines, <60 ml/min/1.73m2 is sufficient to diagnose a patient with chronic kidney disease. Performed By: #### E BS CMP, EBS LIPID #### [facility] [address] [place] [address] Estimated GFR (Non- Am > 60 Normal [facility] Comment on above: Performed By: #### E BS CMP, EBS LIPID #### [facility] [address] [place] [address] [place] Globulin (S) [Mass/Vol] 3.7 g/dL Normal [facility] Comment on above: Performed By: #### E BS CMP, EBS LIPID #### [facility] [address] [id number] [place] Glucose [Mass/Vol] 100 mg/dL Normal 70-100 [facility] Comment on above: Performed By: #### E BS CMP, EBS LIPID #### [facility] [address] [place] [address] [place] Potassium [Moles/Vol] 3.9 mmol/L Normal 3.5-5.1 [facility] Comment on above: Performed By: #### E BS CMP, EBS LIPID #### [facility] [address] [id number] [facility] Protein [Mass/Vol] 7.4 g/dL Normal 6.1-7.9 [facility] Comment on above: Performed By: #### E BS CMP, EBS LIPID #### [facility] [address] [id number] [facility] Sodium [Moles/Vol] 135 mmol/L Low 136-146 [facility] Comment on above: Performed By: #### E BS CMP, EBS LIPID #### [facility] [address] Urea nitrogen [Mass/Vol] 12 mg/dL Normal 9-23 [facility] Comment on above: Performed By: #### E BS CMP, EBS LIPID #### [facility] [address] Lipid Profileon 12-23-2021 Cholesterol [Mass/Vol] 213 mg/dL High 140-200 [facility] Comment on above: Result Comment: Chol less than 200 mg/dl low risk Chol 201-239 mg/dl borderline risk Chol 240 mg/dl and greater high risk Performed By: #### E BS CMP, EBS LIPID #### [facility] [address] Cholesterol in HDL [Mass/Vol] 36 mg/dL Normal 35-85 [facility] Comment on above: Result Comment: HDL CHOL ATP-III CLASSIFICATION Cardiovascular Risk HDL > or equal to 60 mg/dL LOW HDL < 40 mg/dL HIGH Performed By: #### E BS CMP, EBS LIPID #### [facility] [address] [id number] [facility] Cholesterol.total/C holesterol in HDL [Mass ratio] 5.9 {ratio} Normal <5.0 [facility] Comment on above: Result Comment: PERF ORMED BY: [place] [address] PATHOLOGIST COLD PATCHER MARIBEL AGUILLON M.D. Performed By: #### E BS CMP, EBS LIPID #### [facility] [address] LDL Cholesterol,Calcula lizbet 151 mg/dL High 0-100 [facility] Comment on above: Result Comment: LDL ATP III CLASSIFICATION LDL less than 100 mg/dL Optimal LDL 100-129 mg/dL Near or above optimal LDL 130-159 mg/dL Borderline high LDL 160-189 mg/dL High LDL greater than 189 mg/dL Very high Performed By: #### E BS CMP, EBS LIPID #### [facility] [address] Triglyceride w/Reflex 129 mg/dL Normal 35-149 [facility] Comment on above: Result Comment: TRIG ATP III CLASSIFICATION TRIG less than 150 mg/dL Normal TRIG 150-199 mg/dL Borderline high TRIG 200-500 mg/dL High TRIG greater than 500 mg/dL Very high Standard traceable to the Center for Disease Conrtrol and Prevention (CDC) test method. Performed By: #### E BS CMP, EBS LIPID #### [facility] [address] VLDL CHOLESTEROL 25 mg/dL Normal [facility] Comment on above: Performed By: #### E BS CMP, EBS LIPID #### [facility] [address] Covid-19 PCR ([facility])on 11-16 SARS-CoV-2 (COVID-19) RNA DEIRDRE+probe Ql (Unsp spec) Detected Critically abnormal NOT DETECTED [facility] Comment on above: Result Comment: This test is not yet approved or cleared by the [place] FDA. When there are no FDA-approved or cleared tests available, and other criteria are met, FDA can make tests available under an emergency access mechanism called an Emergency Use Authorization (EUA). The EUA for this test is supported by the [place] of Health and Human Service's declaration that [...] used). Performed By: #### C VDTBH #### [facility] [address] [address] [address] Mendel Herron INFLUENZA A AND B [facility]on 12-[facility] Normal [facility] Comment on above: Result Comment: Nega tive for Flu A protein angiten. Infection due to Flu A cannot be ruled out. Flu A angiten in the sample may be below the detection limit of the test. Performed By: #### L IPID, CMP, T4, TSH, FT3 #### [facility] [address] [address] [address] [facility] Normal [facility] Comment on above: Result Comment: Nega tive for Flu B protein antigen. Infection due to Flu B cannot be ruled out. Flu B antigen in the sample may be below the detection limit of the test. Performed By: #### L IPID, CMP, T4, TSH, FT3 #### [facility] [address] [address] [address] Mendel Herron INFLUENZA A AG Negative Normal NEGATIVE SEE COMMENT [facility] Comment on above: Performed By: #### L IPID, CMP, T4, TSH, FT3 #### [facility] [address] [address] [address] Mendel Herron INFLUENZA B AG Negative Normal NEGATIVE SEE COMMENT [facility] Comment on above: Performed By: #### L IPID, CMP, T4, TSH, FT3 #### [facility] [address] [address] [address] Mendel Herron INTERNAL CONTROLS Within Normal Limits Normal Wi thin Normal Limits [facility] Comment on above: Performed By: #### L IPID, CMP, T4, TSH, FT3 #### [facility] [address] [address] [address] Mendel Herron Cardiovascular Lab Reporton 08-18-2021 Cardiovascular Lab Report [facility] Patient Name: [facility] S MR #: [id number] Department of Physician: Curtis Martinez MD Medicine Service Date: 08/18/2021 Division of Birthdate: 1970 Cardiology Room #: Adult Cardiovascular Services [address], [place] [address] Cardiovascular Laboratory Report ATRIAL FLUTTER ABLATION AND [...] ab (more content not included)... Normal [facility] BILL Antinuclear Antibodieson 04-23-2021 Antinuclear Abs, IFA Negative Normal . [facility] Comment on above: Result Comment: Nega tive <1:80 Borderline 1:80 Positive >1:80 ICAP nomenclature: AC-0 For more information about Hep-2 cell patterns use ANApatterns.org, the official website for the International Consensus on Antinuclear Antibody (BILL) Patterns (ICAP). Performed at: - [facility] [id number] E Commerce Specialist: Ger Yen PhD, Phone: [phone] PERFORMED BY: [place] [address] PATHOLOGIST COLD PATCHER MARIBEL AGUILLON M.D. Performed By: #### E SR, CRP, CBC, CREAT #### [address] #### BILL #### [facility] , C-Reactive Proteinon 021 C-Reactive Protein 0.7 mg/dL Normal 0.0-1.0 [facility] Comment on above: Result Comment: PERF ORMED BY: [place] [phone] PATHOLOGIST COLD PATCHER MARIBEL AGUILLON M.D. Performed By: #### E SR, CRP, CBC, CREAT #### [address] #### BILL #### [facility] , Complement C3on 04-23-2021 Complement C3 170 mg/dL High 82-167 [facility] Comment on above: Result Comment: Perf ormed at: - [facility] [address] [id number] E [employer] Specialist: Ger Yen PhD, Phone: [phone] Performed By: #### A DDONUAPLUS #### [address] #### CH50, C3, C4 #### [facility] , Complement C4on 04-23-2021 Complement C4 14 mg/dL Normal 12-38 [facility] Comment on above: Performed By: #### A DDONUAPLUS #### [address] #### CH50, C3, C4 #### [facility] , Complement Total (CH50)on Complement Total (CH50) >60 Normal >41 [facility] Comment on above: Result Comment: Age Male [...] determine out of range values. Performed at: [facility] [id number] E [employer] Specialist: Ger Yen PhD, Phone: [phone] PERFORMED BY: [place] [address] PATHOLOGIST COLD PATCHER MARIBEL AGUILLON M.D. Performed By: #### E BS CMP, EBS LIPID #### [address] Complete Blood Count Auto Di ffon 04-23-2021 Basophils (Bld) [#/Vol] 0.1 10*3/uL Normal 0.0-0.2 [facility] Comment on above: Performed By: #### E SR, CRP, CBC, CREAT #### [address] #### BILL #### [facility] , Basophils/100 WBC (Bld) 0.7 % Normal . [facility] Comment on above: Performed By: #### E SR, CRP, CBC, CREAT #### [address] #### BILL #### [facility] , Eosinophils (Bld) [#/Vol] 0.1 10*3/uL Normal 0.0-0.45 [facility] Comment on above: Performed By: #### E SR, CRP, CBC, CREAT #### [facility] [address] [place] [address] #### BILL #### [facility] , Eosinophils/100 WBC (Bld) 0.5 % Normal . [facility] Comment on above: Performed By: #### E SR, CRP, CBC, CREAT #### [facility] [address] [place] [address] [place] #### BILL #### [facility] , Erythrocyte distribution width (RBC) [Ratio] 18.0 % High 11.9-15.3 [facility] Comment on above: Performed By: #### E SR, CRP, CBC, CREAT #### [address] #### BILL #### [facility] , Hematocrit (Bld) [Volume fraction] 31.6 % Low 34.0-46.4 [facility] Comment on above: Performed By: #### E SR, CRP, CBC, CREAT #### [place] [address] [place] #### BILL #### [facility] , Hemoglobin (Bld) [Mass/Vol] 9.8 g/dL Low 11.8-15.4 [facility] Comment on above: Performed By: #### E SR, CRP, CBC, CREAT #### [place] [address] [place] #### BILL #### [facility] , Lymphocytes (Bld) [#/Vol] 1.7 10*3/uL Normal 1.00-4.8 [facility] Comment on above: Performed By: #### E SR, CRP, CBC, CREAT #### [place] [address] [place] #### BILL #### [facility] , Lymphocytes/100 WBC (Bld) 15.0 % Normal . [facility] Comment on above: Performed By: #### E SR, CRP, CBC, CREAT #### [facility] [address] [place] [address] #### BILL #### [facility] , MCH (RBC) [Entitic mass] 24.8 pg Normal 24.7-34.3 [facility] Comment on above: Performed By: #### E SR, CRP, CBC, CREAT #### [facility] [address] [place] [address] #### BILL #### [facility] , MCV (RBC) [Entitic vol] 80.1 fL Normal 80-100 [facility] Comment on above: Performed By: #### E SR, CRP, CBC, CREAT #### [address] #### BILL #### [facility] , Mean Corpuscular HGB Conc 31.0 g/dL Low 32.0-35.0 [facility] Comment on above: Performed By: #### E SR, CRP, CBC, CREAT #### [address] #### BILL #### [facility] , Monocytes (Bld) [#/Vol] 0.5 10*3/uL Normal 0.0-0.8 [facility] Comment on above: Performed By: #### E SR, CRP, CBC, CREAT #### [place] [address] [place] #### BILL #### [facility] , Monocytes/100 WBC (Bld) 4.6 % Normal . [facility] Comment on above: Performed By: #### E SR, CRP, CBC, CREAT #### [address] #### BILL #### [facility] , Neutrophils (Bld) [#/Vol] 9.1 10*3/uL High 1.8-7.7 [facility] Comment on above: Performed By: #### E SR, CRP, CBC, CREAT #### [facility] [address] [place] [address] #### BILL #### [facility] , Neutrophils/100 WBC (Bld) 79.2 % Normal . [facility] Comment on above: Performed By: #### E SR, CRP, CBC, CREAT #### [address] #### BILL #### [facility] , Nucleated RBC/100 WBC (Bld) [Ratio] 0.1 % Normal 0-0.5 [facility] Comment on above: Performed By: #### E SR, CRP, CBC, CREAT #### [address] #### BILL #### [facility] , Platelet mean volume (Bld) [Entitic vol] 8.3 fL Normal 6.3-10.7 [facility] Comment on above: Performed By: #### E SR, CRP, CBC, CREAT #### [address] #### BILL #### [facility] , Platelets (Bld) [#/Vol] 336 10*3/uL Normal 150-450 [facility] Comment on above: Performed By: #### E SR, CRP, CBC, CREAT #### [place] [address] [place] #### BILL #### [facility] , RBC (Bld) [#/Vol] 3.94 10*6/uL Normal 3.60-5.00 [facility] Comment on above: Performed By: #### E SR, CRP, CBC, CREAT #### [facility] [address] [place] [address] [place] #### BILL #### [facility] , WBC (Bld) [#/Vol] 11.5 10*3/uL High 4.5-11.0 [facility] Comment on above: Performed By: #### E SR, CRP, CBC, CREAT #### [address] #### BILL #### [facility] , Creatinineon 04-23-2021 Creatinine [Mass/Vol] 0.75 mg/dL Normal 0.44-1.03 [facility] Comment on above: Performed By: #### E SR, CRP, CBC, CREAT #### [address] #### BILL #### [facility] , Estimated GFR ( Ni > 60 Normal [facility] Comment on above: Result Comment: GFR estimated reference range: According to KDOQI guidelines, <60 ml/min/1.73m2 is sufficient to diagnose a patient with chronic kidney disease. Performed By: #### E SR, CRP, CBC, CREAT #### [facility] [address] [place] [address] #### BILL #### [facility] , Estimated GFR (Non- Am > 60 Normal [facility] Comment on above: Performed By: #### E SR, CRP, CBC, CREAT #### [facility] [address] [place] [address] #### BILL #### [facility] , Dipstick and Microscopicon 1 Appearance (U) Clear Normal Clear [facility] Comment on above: Order Comment: Name Collection Type:: Clean-Voided Midstream Performed By: #### A DDONUAPLUS #### [address] #### CH50, C3, C4 #### [facility] , Bacteria,Urine None Seen Normal None Seen [facility] Comment on above: Order Comment: Name Collection Type:: Clean-Voided Midstream Performed By: #### A DDONUAPLUS #### [address] #### CH50, C3, C4 #### [facility] , Bilirubin,Urine Negative Normal Negative [facility] Comment on above: Order Comment: Name Collection Type:: Clean-Voided Midstream Performed By: #### A DDONUAPLUS #### [address] #### CH50, C3, C4 #### [facility] , Color (U) Yellow Normal Yellow [facility] Comment on above: Order Comment: Name Collection Type:: Clean-Voided Midstream Performed By: #### A DDONUAPLUS #### [address] #### CH50, C3, C4 #### [facility] , Glucose Ql (U) 100 mg/dL High Normal [facility] Comment on above: Order Comment: Name Collection Type:: Clean-Voided Midstream Performed By: #### A DDONUAPLUS #### [address] #### CH50, C3, C4 #### [facility] , Hyaline Casts,Urine 0-8 Normal 0-8 [facility] Comment on above: Order Comment: Name Collection Type:: Clean-Voided Midstream Result Comment: PERF ORMED BY: [place] [address] PATHOLOGIST COLD PATCHER MARIBEL AGUILLON M.D. Performed By: #### A DDONUAPLUS #### [address] #### CH50, C3, C4 #### [facility] , Ketones Ql (U) Negative Normal Negative [facility] Comment on above: Order Comment: Name Collection Type:: Clean-Voided Midstream Performed By: #### A DDONUAPLUS #### [address] #### CH50, C3, C4 #### [facility] , Leukocyte esterase Test strip Ql (U) Negative Normal Negative [facility] Comment on above: Order Comment: Name Collection Type:: Clean-Voided Midstream Performed By: #### A DDONUAPLUS #### [address] #### CH50, C3, C4 #### [facility] , Nitrite,Urine Negative Normal Negative [facility] Comment on above: Order Comment: Name Collection Type:: Clean-Voided Midstream Performed By: #### A DDONUAPLUS #### [address] #### CH50, C3, C4 #### [facility] , Occult Blood,Urine Negative Normal Negative [facility] Comment on above: Order Comment: Name Collection Type:: Clean-Voided Midstream Performed By: #### A DDONUAPLUS #### [address] #### CH50, C3, C4 #### [facility] , pH (U) 5.0 [pH] Normal 5.0-9.0 [facility] Comment on above: Order Comment: Name Collection Type:: Clean-Voided Midstream Performed By: #### A DDONUAPLUS #### [address] #### CH50, C3, C4 #### [facility] , Protein,Urine Negative Normal Negative [facility] Comment on above: Order Comment: Name Collection Type:: Clean-Voided Midstream Performed By: #### A DDONUAPLUS #### [place] [address] [place] #### CH50, C3, C4 #### [facility] , RBC,Urine None Seen Normal 0-4 [facility] Comment on above: Order Comment: Name Collection Type:: Clean-Voided Midstream Performed By: #### A DDONUAPLUS #### [address] #### CH50, C3, C4 #### [facility] , Specificy [place],Urine 1.009 Normal 1.001-1.030 [facility] Comment on above: Order Comment: Name Collection Type:: Clean-Voided Midstream Performed By: #### A DDONUAPLUS #### [address] #### CH50, C3, C4 #### [facility] , Squamous Epithelial Cell,Urine 0-1 Normal 0-2 [facility] Comment on above: Order Comment: Name Collection Type:: Clean-Voided Midstream Performed By: #### A DDONUAPLUS #### [address] #### CH50, C3, C4 #### [facility] , Urobilinogen,Urine Normal Normal Normal [facility] Comment on above: Order Comment: Name Collection Type:: Clean-Voided Midstream Performed By: #### A DDONUAPLUS #### [address] #### CH50, C3, C4 #### [facility] , WBC LM.HPF (Urine sed) [#/Area] 0 /[HPF] Normal 0-4 [facility] Comment on above: Order Comment: Name Collection Type:: Clean-Voided Midstream Performed By: #### A DDONUAPLUS #### [place] [address] [place] #### CH50, C3, C4 #### [facility] , Erythrocyte Sedimentation Ra ryley 04-23-2021 ESR (Bld) [Velocity] 55 mm/h High 0-29 [facility] Comment on above: Result Comment: PERF ORMED BY: [facility] [address] [place] [address] PATHOLOGIST COLD PATCHER MARIBEL AGUILLON M.D. Performed By: #### E SR, CRP, CBC, CREAT #### [facility] [address] [place] [address] [place] #### BILL #### [facility] , BASIC METABOLIC PANELon 03-20 Calcium [Mass/Vol] 8.7 mg/dL Normal 8.6-10.3 [facility] Comment on above: Order Comment: No: D o not add to previous draw Performed By: #### 5 7307, 17533 #### [facility] [address] [place] [address], [facility] Chloride [Moles/Vol] 97 mmol/L Low 98-107 [facility] Comment on above: Order Comment: No: D o not add to previous draw Performed By: #### 5 7307, 56370 #### [facility] [address] [place] [address], [place] CO2 [Moles/Vol] 36 mmol/L High 21-31 [facility] Comment on above: Order Comment: No: D o not add to previous draw Performed By: #### 5 7307, 74077 #### [facility] [address] [place] [address], [place] Creatinine [Mass/Vol] 0.74 mg/dL Normal 0.60-1.20 [facility] Comment on above: Order Comment: No: D o not add to previous draw Performed By: #### 5 7307, 37347 #### [facility] [address] [place] [address], [place] GFR/1.73 sq M.predicted among blacks MDRD (S/P/Bld) [Vol rate/Area] mL/min/{1.73_m2} Normal >60 [facility] Comment on above: Order Comment: No: D o not add to previous draw Performed By: #### 5 73, 07696 #### [facility] [address] [place] [address], [place] GFR/1.73 sq M.predicted among non-blacks MDRD (S/P/Bld) [Vol rate/Area] mL/min/{1.73_m2} Normal >60 [facility] Comment on above: Order Comment: No: D o not add to previous draw Performed By: #### 5 7306, 62471 #### [facility] [address] [place] [address], [place] Glucose [Mass/Vol] 123 mg/dL High 70-100 [facility] Comment on above: Order Comment: No: D o not add to previous draw Performed By: #### 5 7306, 28225 #### [facility] [address] [place] [address], [place] Potassium [Moles/Vol] 4.3 mmol/L Normal 3.5-5.1 [facility] Comment on above: Order Comment: No: D o not add to previous draw Performed By: #### 5 73, 03068 #### [facility] [address] [place] [address], [place] Sodium [Moles/Vol] 139 mmol/L Normal 136-145 [facility] Comment on above: Order Comment: No: D o not add to previous draw Performed By: #### 5 7307, 19155 #### [facility] [address] [place] [address], [place] Urea nitrogen [Mass/Vol] 24 mg/dL Normal 7-25 [facility] Comment on above: Order Comment: No: D o not add to previous draw Performed By: #### 5 7307, 01378 #### [facility] [address] [place] [address], [place] CBC COMPLETE BLOOD COUNTon 0 04-11-2021 Erythrocyte distribution width (RBC) [Ratio] 16.8 % High 11.5-15.0 [facility] Comment on above: Order Comment: No: D o not add to previous draw Performed By: #### 5 73, 55279 #### [facility] [address] [place] [address], [facility] Hematocrit (Bld) [Volume fraction] 29.7 % Low 36.0-45.0 [facility] Comment on above: Order Comment: No: D o not add to previous draw Performed By: #### 5 7306, 77030 #### [facility] [address] [place] [address], [facility] Hemoglobin (Bld) [Mass/Vol] 8.9 g/dL Low 12.0-15.0 [facility] Comment on above: Order Comment: No: D o not add to previous draw Performed By: #### 5 7306, 43947 #### [facility] [address] [place] [address], [facility] MCH (RBC) [Entitic mass] 25.4 pg Low 27.0-33.0 [facility] Comment on above: Order Comment: No: D o not add to previous draw Performed By: #### 5 7306, 18926 #### [facility] [address] [place] [address], [facility] MCHC (RBC) [Mass/Vol] 30.0 g/dL Low 32.0-35.0 [facility] Comment on above: Order Comment: No: D o not add to previous draw Performed By: #### 5 7306, 27367 #### [facility] [address] [place] [address], [facility] MCV (RBC) [Entitic vol] 84.9 fL Normal 82.0-98.0 [facility] Comment on above: Order Comment: No: D o not add to previous draw Performed By: #### 5 7306, 16373 #### [facility] [address] Nucleated RBC/100 WBC (Bld) [Ratio] 0 % Normal 0-0 [facility] Comment on above: Order Comment: No: D o not add to previous draw Performed By: #### 5 7307, 70424 #### [facility] [address] [facility] [place] [address], [facility] PLAT CNT 446 10*3/uL High 150-400 [facility] Comment on above: Order Comment: No: D o not add to previous draw Performed By: #### 5 7307, 84426 #### [facility] [address] [place] [address], [facility] RBC (Bld) [#/Vol] 3.50 10*6/uL Low 3.80-5.00 [facility] Comment on above: Order Comment: No: D o not add to previous draw Performed By: #### 5 7307, 60447 #### [facility] [address] [place] [address], [facility] WBC (Bld) [#/Vol] 16.54 10*3/uL High 4.00-10.60 [facility] Comment on above: Order Comment: No: D o not add to previous draw Performed By: #### 5 7307, 46940 #### [facility] [address] Cardiovascular Lab Reporton 04-11-2021 Cardiovascular Lab Report [facility] Patient Name: [facility] S MR #: [id number] Department of Physician: London Rodas M.D. Division of Service Date: 04/11/2021 Cardiology Birthdate: 1970 Adult Cardiovascular Room #: 5AB [id number] [facility] [address] [place] [address] Cardiovascular Laboratory Report PROCEDURE PERFORMED: Transesophageal echocardiogram and cardioversion. INDICATION: Atrial flutter. FELLOW: Dunia Sierra MD PROCEDURE IN DETAIL: Informed consent was obtained from the patient after explaining the indication, risks, benefits, as well as alternatives. The patient understood and agreed, and signed the consent form. The patient was brought to the factory laborer and transesophageal echocardiogram was performed, under conscious [...] Sierra MD Date Trans: 04/11/2021 12:53 P/marixa [id number] cc: Phillip Ann M.D. [address] [id number] Normal [facility] MAGNESIUM BLOODon 04-11-2021 Magnesium [Mass/Vol] 2.3 mg/dL Normal 1.9-2.7 [facility] Comment on above: Order Comment: No: D o not add to previous draw Performed By: #### 5 7307, 83168 #### [facility] [address] POC GLUCOSE LABon 04-11-2021 Glucose [Mass/Vol] 124 mg/dL High 70-100 [facility] Comment on above: Performed By: #### 5 7307, 93367 #### [facility] [address] [facility] [address] TROPONIN-Ion 04-11-2021 Troponin I.cardiac [Mass/Vol] 0.06 ng/mL High 0.00-0.04 [facility] Comment on above: Order Comment: No: D o not add to previous draw Result Comment: REFE RENCE RANGES: 0.00 - 0.04 ng/ml NORMAL 0.05 - 0.50 ng/ml INDETERMINATE > 0.50 ng/ml CONSISTENT WITH AN M.I. Performed By: #### 5 7307, 74328 #### [facility] [address] [facility] *BLOOD CULTUREon 04-10-2021 *BLOOD CULTURE Clinical Report: (D) Specimen: BLOOD CULTURE Collected: 04/10/2021 09:50 Status: Final Last Updated: 04/15/2021 11:28 (1) Right hand CULT RES (Final) No Growth Day 5 Normal [facility] Comment on above: Order Comment: No: D o not add to previous draw Performed By: #### 5 7307, 72059 #### [facility] [address] *BLOOD CULTURE Clinical Report: (D) Specimen: BLOOD CULTURE Collected: 04/10/2021 09:50 Status: Final Last Updated: 04/15/2021 11:28 (1) Left hand CULT RES (Final) No Growth Day 5 Normal [facility] Comment on above: Order Comment: No: D o not add to previous draw Performed By: #### 5 7307, 77385 #### [facility] [address] [facility] [address] *SARS-CoV-2 COVID-19on 04-10 SARS-CoV-2 (COVID-19) RNA DEIRDRE+probe Ql (Unsp spec) Not detected Normal Not Detected [facility] Comment on above: Order Comment: No: D o not add to previous draw Performed By: #### 5 7307, 50986 #### [facility] [address] APTTon 04-10-2021 aPTT Coag (Bld) [Time] 23.4 s Low 25.0-35.0 [facility] Comment on above: Order Comment: No: [...] THIS PURPOSE. Performed By: #### 5 7307, 51365 #### [facility] [address] aPTT Coag (Bld) [Time] 23.2 s Low 25.0-35.0 [facility] Comment on above: Order Comment: No: [...] THIS PURPOSE. Performed By: #### 5 7307, 08191 #### [facility] [address] BASIC METABOLIC PANELon 03-20 Calcium [Mass/Vol] 8.6 mg/dL Normal 8.6-10.3 [facility] Comment on above: Order Comment: No: D o not add to previous draw Performed By: #### 1 0070, 51575, 30500 #### [facility] [address] [place] [address], [facility] Chloride [Moles/Vol] 99 mmol/L Normal 98-107 [facility] Comment on above: Order Comment: No: D o not add to previous draw Performed By: #### 1 0070, 13735, 20222 #### [facility] [address] [place] [address], [place] CO2 [Moles/Vol] 32 mmol/L High 21-31 [facility] Comment on above: Order Comment: No: D o not add to previous draw Performed By: #### 1 0, 11195, 02343 #### [facility] [address] [place] [address], [place] Creatinine [Mass/Vol] 0.84 mg/dL Normal 0.60-1.20 [facility] Comment on above: Order Comment: No: D o not add to previous draw Performed By: #### 1 0, 95077, 99626 #### [facility] [address] [place] [address], [place] GFR/1.73 sq M.predicted among blacks MDRD (S/P/Bld) [Vol rate/Area] mL/min/{1.73_m2} Normal >60 [facility] Comment on above: Order Comment: No: D o not add to previous draw Performed By: #### 1 0, 25908, 36089 #### [facility] [address] [place] [address], [place] GFR/1.73 sq M.predicted among non-blacks MDRD (S/P/Bld) [Vol rate/Area] mL/min/{1.73_m2} Normal >60 [facility] Comment on above: Order Comment: No: D o not add to previous draw Performed By: #### 1 0, 43561, 39088 #### [facility] [address] [place] [address], [place] Glucose [Mass/Vol] 117 mg/dL High 70-100 [facility] Comment on above: Order Comment: No: D o not add to previous draw Performed By: #### 1 0, 94760, 38729 #### [facility] [address] [place] [address], [place] Potassium [Moles/Vol] 3.9 mmol/L Normal 3.5-5.1 [facility] Comment on above: Order Comment: No: D o not add to previous draw Performed By: #### 1 0070, 78257, 53805 #### [facility] [address] Sodium [Moles/Vol] 139 mmol/L Normal 136-145 [facility] Comment on above: Order Comment: No: D o not add to previous draw Performed By: #### 1 0070, 96086, 02757 #### [facility] [address] Urea nitrogen [Mass/Vol] 19 mg/dL Normal 7-25 [facility] Comment on above: Order Comment: No: D o not add to previous draw Performed By: #### 1 0070, 36552, [id number] #### [facility] [address] BNP (B-TYPE NATRIURETIC PEPT MARILYN)on 04-10-2021 Natriuretic peptide B (Bld) [Mass/Vol] 259 pg/mL High 0-100 [facility] Comment on above: Order Comment: No: D o not add to previous draw Result Comment: Give n the appropriate clinical setting a BNP result of >100 pg/mL indicates congestive heart failure. Performed By: #### 5 7307, 14977 #### [facility] [address] [facility] [place] [address], [facility] CBC W/DIFFon 04-10-2021 ABS IMM GRANS 1.1 10*3/uL High 0.0-0.2 [facility] Comment on above: Performed By: #### 5 0103 #### [facility] [address] [place] [address], [facility] ABS NEUTROPHILS 9.6 10*3/uL High 1.6-7.6 [facility] Comment on above: Performed By: #### 5 0103 #### [facility] [address] [place] [address], [facility] ANISO MODERATE Normal [facility] Comment on above: Performed By: #### 5 0103 #### [facility] [address] [place] [address], [facility] Basophils (Bld) [#/Vol] 0.1 10*3/uL Normal 0.0-0.2 [facility] Comment on above: Performed By: #### 5 0103 #### [facility] [address] [place] [address], [facility] Basophils/100 WBC (Bld) 0.7 % Normal 0.0-1.0 [facility] Comment on above: Performed By: #### 5 0103 #### [facility] [address] [facility] [place] [address], [facility] Eosinophils (Bld) [#/Vol] 0.1 10*3/uL Normal 0.0-0.5 [facility] Comment on above: Performed By: #### 5 0103 #### [facility] [address] [facility] [place] [address], [facility] Eosinophils/100 WBC (Bld) 0.4 % Normal 0.0-6.0 [facility] Comment on above: Performed By: #### 5 0103 #### [facility] [address] [facility] [address] Erythrocyte distribution width (RBC) [Ratio] 16.5 % High 11.5-15.0 [facility] Comment on above: Performed By: #### 5 0103 #### [facility] [address] [place] [address], [facility] Hematocrit (Bld) [Volume fraction] 31.2 % Low 36.0-45.0 [facility] Comment on above: Performed By: #### 5 0103 #### [facility] [address] [place] [address], [facility] Hemoglobin (Bld) [Mass/Vol] 9.0 g/dL Low 12.0-15.0 [facility] Comment on above: Performed By: #### 5 0103 #### [facility] [address] [facility] [place] [address], [facility] HYPO SLIGHT Normal [facility] Comment on above: Performed By: #### 5 0103 #### [facility] [address] [facility] [place] [address], [facility] IMMATURE GRANS 6.8 % High 0.0-1.0 [facility] Comment on above: Performed By: #### 5 0103 #### [facility] [address] [facility]. [address] Lymphocytes (Bld) [#/Vol] 4.4 10*3/uL High 1.2-4.0 [facility] Comment on above: Performed By: #### 5 0103 #### [facility] [address] [facility]. [address] Lymphocytes/100 WBC (Bld) 26.4 % Normal 20.0-45.0 [facility] Comment on above: Performed By: #### 5 0103 #### [facility] [address] [facility]. [address] MCH (RBC) [Entitic mass] 25.3 pg Low 27.0-33.0 [facility] Comment on above: Performed By: #### 5 0103 #### [facility] [address] [facility] [place] [address], [facility] MCHC (RBC) [Mass/Vol] 28.8 g/dL Low 32.0-35.0 [facility] Comment on above: Performed By: #### 5 3 #### [facility] [address] [facility] [place] [address], [facility] MCV (RBC) [Entitic vol] 87.6 fL Normal 82.0-98.0 [facility] Comment on above: Performed By: #### 5 3 #### [facility] [address] [facility] [place] [address], [facility] Monocytes (Bld) [#/Vol] 1.3 10*3/uL High 0.1-1.0 [facility] Comment on above: Performed By: #### 5 0103 #### [facility] [address] [place] [address], [facility] MONOS 7.6 % Normal 5.0-12.0 [facility] Comment on above: Performed By: #### 5 102 #### [facility] [address] Neutrophils/100 WBC (Bld) 58.1 % Normal 40.0-72.0 [facility] Comment on above: Performed By: #### 5 102 #### [facility] [address] Nucleated RBC/100 WBC (Bld) [Ratio] 1 % High 0-0 [facility] Comment on above: Performed By: #### 5 102 #### [facility] [address] [facility] [place] [address], [facility] PLAT CNT 483 10*3/uL High 150-400 [facility] Comment on above: Performed By: #### 5 3 #### [facility] [address] [facility]. [address] POIK SLIGHT Normal [facility] Comment on above: Performed By: #### 102 #### [facility] [address] [place] [address], [facility] POLY SLIGHT Normal [facility] Comment on above: Performed By: #### 102 #### [facility] [address] [facility] [place] [address], [facility] RBC (Bld) [#/Vol] 3.56 10*6/uL Low 3.80-5.00 [facility] Comment on above: Performed By: #### 5 0103 #### [facility] [address] [facility] [place] [address], [facility] WBC (Bld) [#/Vol] 16.54 10*3/uL High 4.00-10.60 [facility] Comment on above: Performed By: #### 5 0103 #### [facility] [address] [facility] [place] [address], [facility] LIPID PROFILEon 04-10-2021 Cholesterol [Mass/Vol] 161 mg/dL Normal 120-200 [facility] Comment on above: Result Comment: CHOL ESTEROL REFERENCE RANGE: 20 YEARS AND OLDER CARDIOVASCULAR RISK Less than 200 mg/dl Low Risk 200 to 239 mg/dl Borderline Risk 240 mg/dl and greater High Risk Performed By: #### 3 1569, 91406, 39569 #### [facility] [address] [facility] [place] [address], [facility] Cholesterol in HDL [Mass/Vol] 61 mg/dL Normal 23-92 [facility] Comment on above: Result Comment: Slig ht variation in normal range could be due to gender and/or age. HDL CHOLESTEROL REFERENCE RANGE: 20 years and older Cardiovascular Risk > or =60 mg/dL Desirable 40 TO 59 mg/dL Low Risk <40 mg/dL High Risk Performed By: #### 3 1569, 93664, 43753 #### [facility] [address] [facility] [place] [address], [facility] Cholesterol in LDL [Mass/Vol] 28 mg/dL Normal 0-130 [facility] Comment on above: Result Comment: LDL IS A CALCULATION LDL IS ONLY VALID IF THE TRIG IS LESS THAN 400. Performed By: #### 3 1569, 29715, 31312 #### [facility] [address] [place] [address], [facility] Cholesterol.total/C holesterol in HDL [Mass ratio] 2.6 {ratio} Normal .0-4.5 [facility] Comment on above: Performed By: #### 3 1569, 30312, 16877 #### [facility] [address] [place] [address], [facility] NON-HDL CHOLESTEROL 100 mg/dL Normal [facility] Comment on above: Performed By: #### 3 1569, 23746, 17414 #### [facility] [address] [place] [address], [facility] Triglyceride [Mass/Vol] 362 mg/dL High 40-149 [facility] Comment on above: Result Comment: TRIG LYCERIDE REFERENCE RANGE: 20 YEARS AND OLDER CARDIOVASCULAR RISK LESS THAN 150 mg/dl LOW RISK 150 TO 199 mg/dl BORDERLINE RISK 200 mg/dl AND GREATER HIGH RISK Performed By: #### 3 1569, 56357, 93990 #### [facility] [address] [place] [address], [facility] VLDL CHOL 72 mg/dL High 0-40 [facility] Comment on above: Performed By: #### 3 1569, 43314, 77408 #### [facility] [address] [place] [address], [facility] MAGNESIUM BLOODon 04-10-2021 Magnesium [Mass/Vol] 2.4 mg/dL Normal 1.9-2.7 [facility] Comment on above: Order Comment: No: D o not add to previous draw Performed By: #### 1 0070, 37822, 89489 #### [facility] [address] [place] [address], [place] POC GLUCOSE LABon 04-10-2021 Glucose [Mass/Vol] 350 mg/dL High 70-100 [facility] Comment on above: Performed By: #### 5 7307, 42441 #### [facility] [address] [place] [address], [place] Glucose [Mass/Vol] 249 mg/dL High 70-100 [facility] Comment on above: Performed By: #### 5 7307, 71678 #### [facility] [address] [place] [address], [facility] PROCALCITONINon 04-10-2021 PROCALCITONIN 0.09 ng/mL Normal 0.00-0.10 [facility] Comment on above: Order Comment: No: [...] initial PCT<0.5ng/mL Performed By: #### 5 7307, 40541 #### [facility] [address] [place] [address], [facility] PROTHROMBIN TIMEon INR Coag (PPP) [Relative time] 1.07 {INR} Normal 0.91-1.16 [facility] Comment on above: Order Comment: No: [...] CHEST 1995;108:[id number]. Performed By: #### 5 7307, 01555 #### [facility] [address] [employer]. [address] PT Coag (PPP) [Time] 13.9 s Normal 12.3-14.8 [facility] Comment on above: Order Comment: No: D o not add to previous draw Result Comment: ALL RESULTS MUST BE INTERPRETED WITH RESPECT TO BLOOD DRAWING ARTIFACT OR DILUTION ERROR OF ANTICOAGULANT AT THE TIME OF SAMPLING. Performed By: #### 5 7307, 51652 #### [facility] [address] [place] [address], [facility] TROPONIN-Ion 04-10-2021 Troponin I.cardiac [Mass/Vol] 0.07 ng/mL High 0.00-0.04 [facility] Comment on above: Order Comment: No: D o not add to previous draw Result Comment: REFE RENCE RANGES: 0.00 - 0.04 ng/ml NORMAL 0.05 - 0.50 ng/ml INDETERMINATE > 0.50 ng/ml CONSISTENT WITH AN M.I. Performed By: #### 3 9629, 31974, 97763 #### [facility] [address] [place] [address], [facility] Troponin I.cardiac [Mass/Vol] 0.07 ng/mL High 0.00-0.04 [facility] Comment on above: Order Comment: No: D o not add to previous draw Result Comment: REFE RENCE RANGES: 0.00 - 0.04 ng/ml NORMAL 0.05 - 0.50 ng/ml INDETERMINATE > 0.50 ng/ml CONSISTENT WITH AN M.I. Performed By: #### 1 0070, 98784, 91211 #### [facility] [address] TSH3 WITH REFLEX FT4on 04-10 TSH 3RD GENERATION 0.95 uIU/mL Normal 0.34-5.60 [facility] Comment on above: Order Comment: Yes: Add to Previous draw if able Performed By: #### 3 1569 #### [facility] [address] TSH 3RD GENERATION 3.12 uIU/mL Normal 0.34-5.60 [facility] Comment on above: Performed By: #### 3 1569, 24823, 86066 #### [facility] [address] UFH HEPARIN ASSAYon 04-10-20 21 UNFRACTIONATED HEPARIN >1.00 Critically high 0.30-0.70 [facility] Comment on above: Result Comment: Resu lt checked and called. Accurately read back by Haven Avila RN at 1122 per RN patient may have previously been given Eliquis. UFH = 1.36 for pharmacy use Rivaroxaban and Apixaban will interfere with the anti Xa assay used to monitor UFH and LMWH. Performed By: #### 5 7307, 88613 #### [facility] [address] Cardiovascular Lab Reporton 01-30-2021 Cardiovascular Lab Report [facility] Patient Name: Antonio [facility] S MR #: [id number] Department of Physician: London Ross M.D. Division of Service Date: 01/30/2021 Cardiology Birthdate: 1970 Adult Cardiovascular Room #: [facility] [address] [place] [address] Cardiovascular Laboratory Report FINAL IMPRESSIONS: 1. Moderately [...] 5. Follow up with Cardiology in the [facility] Cardiology office in the next 2 [...] right internal jugular vein was obtained. A 6-Guyanese glide sheath was inserted without difficulty. A [...] Bear M.D. Date Trans: 01/30/2021 02:48 P/mmo [id number] cc: Phillip Ann M.D. [address] [facility] Richie [facility] [address] [facility] Vital Signs Date Time Vital Sign Value Performing Clinician Iman stafford 09-15-2022 15:24-0500 Blood Pressure Location [employer] [facility] 09-15-2022 15:24-0500 Diastolic blood pressure 78 mm[Hg] Juan Miguel NILL [facility] 09-15-2022 15:24-0500 Heart rate 70 /min Juan Miguel NILL [facility] 09-15-2022 15:24-0500 Respiratory rate 16 /min Juan Miguel NILL [facility] 09-15-2022 15:24-0500 Systolic blood pressure 116 mm[Hg] Juan Miguel NILL [facility] Encounters Encounter Date Encounter Type Care Provider Facility Start: 05-05-2023 End: 05-05-2023 ambulatory [facility] Start: 01-27-2023 End: 01-27-2023 ambulatory [facility] Start: 11-17-2022 End: 11-17-2022 ambulatory EMILY ZHONG . Facility:[facility] Start: 10-28-2022 End: 10-28-[address] PHILLIP ANN . Facility:[facility] Start: 09-24-2022 End: 09-24-[address] PHILLIP ANN . Facility:[facility] Start: 09-15-2022 End: 09-16-2022 ambulatory Juan Miguel Diana BRAD Facility: [facility] Start: 09-15-2022 End: 09-15-2022 Patient encounter procedure Juan Miguel SALINAS [facility] [place]/Juan M [facility] Start: 09-09-2022 End: 09-10-[address] PHILLIP ANN . Facility:[facility] Start: 08-25-2022 ambulatory Juan Miguel Ortiz BRAD Facility : [facility] Start: 08-20-2022 End: 08-21-[address] PHILLIP ANN . Facility:[facility] Start: 08-13-2022 ambulatory [facility] Start: 08-11-2022 End: 08-12-[address] PHILLIP ANN . Facility:[facility] Start: 08-11-2022 End: 08-11-2022 ambulatory [facility] Start: 08-09-2022 End: 08-09-2022 ambulatory FABRICIO STARK . Facility:[facility] Start: 08-06-2022 End: 08-07-[address] PHILLIP ANN . Facility:[facility] Start: 08-05-2022 End: 08-06-[address] PHILLIP ANN . Facility:[facility] Start: 07-16-2022 End: 07-16-[address] PHILLIP ANN . Facility:[facility] Start: 05-11-2022 End: 05-11-[address] PHILLIP ANN . Facility:[facility] Start: 12-02-2021 End: 12-02-[address] PHILLIP ANN . Facility: Start: 04-10-2021 End: 04-11-2021 Evaluation and management of inpatient PHILLIP ANN Facility:[facility] Start: 01-30-2021 End: 01-31-2021 ambulatory CASSY BEAR Facility:[facility] Procedures Date Procedure Procedure Detail Performing Clinician Start: 04-11-2021 Latter-Day of Cardi ac Rhythm, Single SAMER Sony [...] Immunization Date Immunization Notes Care Provider Fa [facility] 04-18-2022 influenza virus vaccine, unspecified formulation Juan Miguel SALINAS [facility] [place] 10-29-2020 SARS-CoV-2 (COVID-19 ) mRNA-1273 vaccine Juan Miguel SALINAS [facility] [place] 10-25-2020 SARS-CoV-2 (COVID-19 ) mRNA BNT-162b2 vax Juan Miguel SALINAS [facility] Comment on above: Result Comment: 2022: [id number] 10-24-2020 SARS-CoV-2 (COVID-19 ) mRNA BNT-162b2 vax Juan Miguel SALINAS [facility] 10-04-2020 SARS-CoV-2 (COVID-19 ) mRNA BNT-162b2 vax Juan Miguel SALINAS General [facility] Comment on above: Result Comment: 2022: TPV50 10-03-2020 SARS-CoV-2 (COVID-19 ) mRNA BNT-162b2 vax Juan Miguel SALINAS [facility] Payers Date Payer Category Payer Unknown [id number] 2.16.8 [id number] 1970 Unknown [id number] 2.16.8 [id number] 1970 Unknown [id number] 2.16.8 40.1.435242.3.579.2.727 1970 Unknown [id number] 2.16.8 40.1.126649.3.579.2.727 1970 Unknown [id number] 2.16.84 0.1.814456.3.579.2.593 1970 Unknown [id number] 2.16.84 0.1.876835.3.579.2.593 1970 Unknown [id number] 2.16.84 0.1.476628.3.579.2.593 1968 Unknown [id number] 2.16.84 0.1.585844.3.579.2.593 1968 Unknown [id number] 2.16.84 0.1.429356.3.579.2.593 1968 Unknown [id number] .16.84 0.1.847161.3.579.2.593 1968 Unknown [id number] 2.16.84 0.1.910513.3.579.2.593 1968 Unknown [id number] 2.16.84 0.1.443759.3.579.2.593 1968 Unknown [id number] 2.16.84 0.1.739233.3.579.2.593 1968 Unknown [id number] 2.16.84 0.1.735968.3.579.2.593 1968 Unknown [id number] 2.16.84 0.1.857842.3.579.2.593 1968 Unknown [id number] 2.16.84 0.1.085776.3.579.2.593 1968 Unknown [id number] 2.16.84 0.1.636442.3.579.2.593 1959 Unknown [id number] 1959 Unknown [id number] 1959 Unknown [id number] 1961 Unknown [id number] Social History Date Type Detail Facility Start: 09-15-2022 Tobacco smoking status Ex-smoker (jm kwan) [facility] [place] Tobacco smoking status Never Gener [facility] [place] Sex Assigned At Female [facility] Medical Equipment Procedure Code Equipment Code Equipment Origin al Text Equipment Identifier Dates lancets, glucome ter, alcohol swabs, testing strips, insulin pen needles, Print Requisition, Supply Start: 08-25-2021 Functional Status Date Assessment Result Facility 09-15-2022 Functional Status N/A [facility] Clinical Notes 04-12-2021 to 05-05-2023 Note [...] trended upwards is a since seen in [place] ER 04/28/2023 and was diagnosed with vertigo [...] Take 1 table (more content not included)... [facility] 05-05-2023 Note Patient here for 3 [...] All other systems reviewed and are negative. [facility] 01-27-2023 Note Patient here for 6 [...] All other systems reviewed and are negative. [facility] 01-27-2023 Note [place] [facility] Consul t Note Reason for visit: [...] Prior to Visit Medication Sig Dispense Refill lhphnfxbgn-zmopbfdfefbrd-hatx (Fioricet) 50-300-40 mg capsule dicyclomine (Bentyl) 20 [...] 0.5 mg(2 mg/1. (more content not included)... [facility] 11-17-2022 Note PROCEDURE: XR CHEST 1 [...] by: AUDREY BO Date: 2022-11-17 12:14 [facility] 09-17-2022 Note Chief Complaint consultation for epigastric pain and nausea HPI Staff 51 year old female presents on consultation from Dr. Ann for intermittent abdominal pain. Presented to [place] ED 08/09 with complaint of epigastric pain [...] section, section, Excisi (more content not included)... [facility] Comment on above: Result Comment: Elec tronically Signed By: BRAD DIAZ, Juan Miguel Lee.lev\Date and Time Signed: 09/17/22 11:55 EST 08-11-2022 Note [place] [facility] Consul t Note Reason for visit: [...] All other systems reviewed and are negative. [facility] 08-11-2022 Note [place] [facility] Consul t Note Reason for visit: [...] Prior to Visit Medication Sig Dispense Refill wwkqzzpkke-nmlfmmtwyramj-vmer (Fioricet) 50-300-40 mg capsule dicyclomine (Bentyl) 20 [...] regular Heart Sounds: (more content not included)... [facility] 04-12-2021 Note MR#: [id number] I [facility] Pt. Name: Diana Alvarez Admitted: 04/10/2021 Discharged: 04/11/2021 Date of : 1970 Physician: Orlin Wick MD DISCHARGE SUMMARY PRIMARY DIAGNOSIS: New-onset atrial flutter with RVR. SECONDARY DIAGNOSES: 1. Pulmonary hypertension. 2. COPD. 3. Diabetes. HISTORY OF PRESENT ILLNESS: This patient is a 50-year-old female with past medical history of COPD, hypertension, and diabetes, who was sent from [facility] due to atrial flutter with RVR due to COPD exacerbation. The patient was initially treated with IV Cardizem, however, it was changed to p.o. prior to transfer. The patient was also given loading dose digoxin. The patient was transferred to [facility] for cardioversion. HOSPITAL COURSE: 1. New-onset atrial [...] P/Orlin Wick MD Date Trans: 04/12/2021 03:25 P/marixa [id number] cc: Phillip Ann M.D. [address], [place] [address] [facility] Evaluation + Plan note No data available for this section General [facility] Discharge instructions No data available for this section [facility] [place] Progress note No data available for this section [facility] [place] Summary Purpose Family History No Family History Records FoundNo Family History Records FoundNo Family History Records FoundNo Family History Records FoundNo Family History Records Found Advance Directives No Advanced Directives Records FoundNo Advanced Directives Records FoundNo Advanced Directives Records FoundNo Advanced Directives Records FoundNo Advanced Directives Records Found Additional Source Comments INFORMATION SOURCE (unrecogn ized section and content) DATE CREATED AUTHOR 09/10/2021 [facility] DATE CREATED AUTHOR AUTHOR'S ORGANIZ ATION 12/24/2021 [facility] DATE CREATED AUTHOR AUTHOR'S ORGANIZ ATION 10/22/2022 [facility] DATE CREATED AUTHOR AUTHOR'S ORGANIZ ATION 11/20/2022 [facility] DATE CREATED AUTHOR AUTHOR'S ORGANIZ ATION 05/06/2023 [facility] Patient Care team informatio n (unrecognized section and content) Personnel Name: Phillip Ann MD Address: Address: [address] [place] [address] [place], [place] [address] FOR RECORDS PERTAINING TO PATIENTS WHO ARE [...] BE BASED ON THE PRIMARY CLINICAL RECORDS. [facility] [employer] provides no warranty or guarantee of the accuracy or completeness of information in this document.
[2023-10-14 02:51] VITALS: BP 147/87; PULSE 75; RESP 16; TEMP 36.5; O2SAT 97; BMI 37.5
--- NOTE | 2023-10-14 02:54 | ED.NECK1 ---
HPI - Neck Pain/Injury General Chief Complaint: Neck Pain/Injury Stated Complaint: LEFT SIDE PAIN Time Seen by Provider: 10/14/23 02:44 Source: patient History of Present Illness HPI Narrative: This 52-year-old female with a history of diabetes presents for evaluation of left-sided neck pain. The patient states that her sister had a stroke on Wednesday and she has been very stressed out and at one point jerked her neck to the left. She felt a pulling sensation in her neck at that point and since then has had muscle spasm in the posterior left side of her neck that goes into her left shoulder. Pain is worse with movement of her neck to the right left or with flexion and extension. She denies any trauma. She has no weakness numbness or tingling. She has no chest pain or shortness of breath. She states she has been using ibuprofen and a heating pad and get into her toe is still having ongoing symptoms. Related Data Home Medications ?Medication ?Instructions ?Recorded ?Confirmed albuterol sulfate 90 mcg/actuation 2 puff inhalation Q4H PRN wheezing 04/18/23 10/14/23 aerosol inhaler (Ventolin HFA) apixaban 5 mg tablet (Eliquis) 5 mg PO BID 04/18/23 10/14/23 diltiazem HCl 240 mg 240 mg PO Q24H 04/18/23 10/14/23 capsule,extended release 24 hr ezetimibe 10 mg tablet 10 mg PO DAILY 04/18/23 10/14/23 ferrous sulfate 325 mg (65 mg 325 mg PO BID 04/18/23 10/14/23 iron) tablet furosemide 40 mg tablet 40 mg PO DAILY 04/18/23 10/14/23 isosorbide mononitrate 30 mg 30 mg PO DAILY 04/18/23 10/14/23 tablet,extended release 24 hr metformin 500 mg tablet 500 mg PO DAILY 04/18/23 10/14/23 pantoprazole 40 mg tablet,delayed 40 mg PO DAILY 04/18/23 10/14/23 release potassium chloride 20 mEq 20 meq PO BID 04/18/23 10/14/23 tablet,extended release rosuvastatin 5 mg tablet 5 mg PO DAILY 04/18/23 10/14/23 metoprolol succinate 25 mg 50 mg PO DAILY 04/28/23 10/14/23 tablet,extended release 24 hr Previous Rx's ?Medication ?Instructions ?Recorded acetaminophen 325 mg capsule 650 mg (2 x 325 mg) PO .q8 PRN 04/18/23 (Tylenol) pain #20 caps Allergies Allergy/AdvReac Type Severity Reaction Status Date / Time morphine Allergy Intermediate Verified 10/14/23 02:55 Review of Systems ROS Status of ROS 10 or more systems reviewed and unremarkable except as noted in history and below PFS PFS Social History Smoking status: Former smoker Exam Narrative Exam Narrative: Nurses note and vital signs reviewed and patient is not hypoxic. Blood pressure is mildly elevated at 147/87 General: Nontoxic overweight female, she appears uncomfortable with any movement on the stretcher, no respiratory distress Skin: Warm, dry, no pallor noted. There is no rash noted. Head: Normocephalic, atraumatic Eye: Normal conjunctiva, no drainage, EOMI. PERRL Neck: Tenderness in the occipital mastoid region of the neck and posterior belly of the sternocleidomastoid, left scalene muscles and trapezius muscles muscles are tender and appeared to be in spasm, trachea is midline, decreased range of motion to the left, right and with flexion and extension. Any range of motion causes of the patient's discomfort. No pulsatile masses are present in the neck Ears, Nose, Mouth, and Throat: oral mucosa is moist. Nares patent. Mouth without vesicles. Ear canals patent. Tm's without Erythema Cardiovascular: Regular Rate and Rhythm Respiratory: Patient is in no distress, no accessory muscle use, lungs are clear to auscultation, no wheezing, rales or rhonchi Back: non-tender, no CVA tenderness bilaterally to percussion. GI: Normal bowel sounds, no tenderness to palpation, no masses appreciated. No rebound, guarding, or rigidity noted. Musculoskeletal: Muscle spasm and left-sided neck tenderness as described above Neurological: A&O x4, normal speech, Strength is intact, upper and lower extremity strength and sensation is intact Psychiatric: Cooperative Constitutional Vital Signs, click to edit/add: Last Vital Signs Temp 97.7 F 10/14/23 02:51 Pulse 75 10/14/23 02:51 Resp 16 10/14/23 02:51 BP 147/87 H 10/14/23 02:51 Pulse Ox 97 10/14/23 02:51 O2 Del Method Room Air 10/14/23 02:51 Course Vital Signs Vital signs: Vital Signs Temperature 97.7 F 10/14/23 02:51 Pulse Rate 75 10/14/23 02:51 Respiratory Rate 16 10/14/23 02:51 Blood Pressure 147/87 H 10/14/23 02:51 Pulse Oximetry 97 10/14/23 02:51 Oxygen Delivery Method Room Air 10/14/23 02:51 Temperature 97.7 F 10/14/23 02:51 Pulse Rate 75 10/14/23 02:51 Respiratory Rate 16 10/14/23 02:51 Blood Pressure 147/87 H 10/14/23 02:51 Pulse Oximetry 97 10/14/23 02:51 Oxygen Delivery Method Room Air 10/14/23 02:51 MDM - Neck Pain/Injury MDM Narrative Medical decision making narrative: This 52-year-old female with a history of diabetes presents for evaluation of left posterior neck pain with increased pain and muscle spasm with range of motion. The patient's sister had a catastrophic stroke earlier this week and the patient states she has been twitching and thinks she moved her neck abruptly and then had a pulling sensation in her neck and since that time his head neck pain. The pain is strictly on the left side and worse with rotatory movement and flexion and extension. She has not had a fever. There is no sign of meningitis. She has no chest pain or shortness of breath. She is tender in the posterior belly of the sternocleidomastoid, scalene muscles and the trapezius muscles on the left. An x-ray was ordered that does not show any acute findings besides some fullness in the anterior neck. I did not think that a CT scan was indicated that she is not having any discomfort or problems in this area. She was medicated emergency department with IM Toradol, IM Valium, Zofran and Percocet. Reevaluation she states she is feeling much better was finally able to relax. She will be discharged home with a home pack of [place], prescription for [place], lidocaine patches, ibuprofen and Flexeril. She has no neurologic symptoms associated with this neck pain and no radiculopathy at this time. She was encouraged to rest, use warm compresses, gentle stretching and return to emergency department as needed for any worsening symptoms otherwise follow up closely with her PCP. Medical Records Medical records narrative: The [address] [address] XRay Report Signed Patient: LEIGHANN TALAMANTES MR#: [id number] : 1970 Acct:[id number] Age/Sex: 52 / F ADM Date: 10/14/23 Loc: ER Attending Dr: Ordering Physician: Merle Nielson Date of Service: 10/14/23 Procedure(s): XR cervical spine 2-3V Accession Number(s): [id number] cc: Xavi Ann M.D.; Merle Marker~ The [address] [address] Patient Name: LEIGHANN TALAMANTES MRN: [id number] date: 1970 Sex: F Assigned Patient Location: ER Current Patient Location: ER Accession/Order Number: [id number] Exam Date: 10/14/2023 03:40 Report Date: 10/14/2023 04:09 At the request of: MERLE NIELSON Procedure: XR cervical spine 2-3V EXAM: XR cervical spine 4 views HISTORY: left sided neck pain COMPARISON: None. TECHNIQUE: AP, lateral, swimmer's and open-mouth odontoid views. 2 lateral views. FINDINGS: Between the lateral and swimmer's views, all 7 cervical vertebrae are visualized although limited visualization of mid cervical vertebrae. No fracture or malalignment is seen. Normal height and alignment of vertebrae. Normal odontoid. There is severe bilateral facet arthropathy at C5-6 and C6-7 and C7-T1. Upper cervical facet joints and uncovertebral joints are maintained. Adequate bone mineralization. No lytic or blastic or destructive changes. Prevertebral soft tissues are mildly prominent. XR/XR cervical spine 2-3V IMPRESSION: 1. No acute bone or joint findings or evidence of traumatic malalignment. 2. There is some mild prominence of prevertebral soft tissues. Consider further assessment with CT soft tissue neck study preferably with contrast. 3. No destructive bone changes. 4. Significant lower cervical spine bilateral facet arthropathy, left greater than right. Recommend CT if there is ongoing concern for fracture given the low sensitivity radiographs for nondisplaced cervical fractures. Electronically authenticated by: GRANT CARBONE Date: 10/14/2023 04:09 Discharge Plan Discharge Stand Alone Forms: Portal Instructions Chief Complaint: Neck Pain/Injury Clinical Impression: Acute torticollis, Cervical strain, acute Patient Disposition: Home, Self-Care Time of Disposition Decision: 04:47 Condition: Good Prescriptions / Home Meds: No Action albuterol sulfate [Ventolin HFA] 90 mcg/actuation HFA aerosol inhaler 2 puff INHALATION Q4H PRN (Reason: wheezing) Eliquis 5 mg tablet 5 mg PO BID diltiazem HCl 240 mg capsule,extended release 24hr 240 mg PO Q24H ezetimibe 10 mg tablet 10 mg PO DAILY ferrous sulfate 325 mg (65 mg iron) tablet 325 mg PO BID furosemide 40 mg tablet 40 mg PO DAILY isosorbide mononitrate 30 mg tablet extended release 24 hr 30 mg PO DAILY metformin 500 mg tablet 500 mg PO DAILY pantoprazole 40 mg tablet,delayed release (DR/EC) 40 mg PO DAILY potassium chloride 20 mEq tablet extended release 20 meq PO BID rosuvastatin 5 mg tablet 5 mg PO DAILY acetaminophen [Tylenol] 325 mg capsule 650 mg PO .q8 PRN (Reason: pain) Qty: 20 0RF metoprolol succinate 25 mg tablet extended release 24 hr 50 mg PO DAILY Print Language: Swazi Instructions: Cervical Strain (DC), Spasmodic Torticollis (ED), Neck Pain (ED) Referrals: Xavi Ann MD [Primary Care Provider] - 1 week
--- NOTE | 2023-10-14 03:21 | XR_ITS ---
The [address] [address] Patient Name: LEIGHANN TALAMANTES MRN: [id number] date: 1970 Sex: F Assigned Patient Location: ER Current Patient Location: ER Accession/Order Number: [id number] Exam Date: 10/14/2023 03:40 Report Date: 10/14/2023 04:09 At the request of: VICENTE MARKER Procedure: XR cervical spine 2-3V EXAM: XR cervical spine 4 views HISTORY: left sided neck pain COMPARISON: None. TECHNIQUE: AP, lateral, swimmer's and open-mouth odontoid views. 2 lateral views. FINDINGS: Between the lateral and swimmer's views, all 7 cervical vertebrae are visualized although limited visualization of mid cervical vertebrae. No fracture or malalignment is seen. Normal height and alignment of vertebrae. Normal odontoid. There is severe bilateral facet arthropathy at C5-6 and C6-7 and C7-T1. Upper cervical facet joints and uncovertebral joints are maintained. Adequate bone mineralization. No lytic or blastic or destructive changes. Prevertebral soft tissues are mildly prominent. XR/XR cervical spine 2-3V IMPRESSION: 1. No acute bone or joint findings or evidence of traumatic malalignment. 2. There is some mild prominence of prevertebral soft tissues. Consider further assessment with CT soft tissue neck study preferably with contrast. 3. No destructive bone changes. 4. Significant lower cervical spine bilateral facet arthropathy, left greater than right. Recommend CT if there is ongoing concern for fracture given the low sensitivity radiographs for nondisplaced cervical fractures. Electronically authenticated by: GRANT CARBONE Date: 10/14/2023 04:09
[2023-10-14] MEDS: KETOROLAC TROMETHAMINE 60 MG/2 ML VIAL IM (03:42)
[2023-10-14] MEDS: DIAZEPAM 10 MG/2 ML SYRINGE 5 MG IM (03:42)
[2023-10-14] MEDS: OXYCODONE HCL/ACETAMINOPHEN 5MG/325MG 1 TAB PO (03:43)
[2023-10-14] MEDS: ONDANSETRON 4 MG RAPDIS TABLET SL (03:43)
[2023-10-14] MEDS: HYDROCODONE/ACET 5-325 MG TABLET 2 TAB PO (05:04)
== END 2023-10-14 05:08 | disposition home or self-care (01) ==
PROVIDERS: Emergency Provider Emergency Medicine; PCP Family Medicine
DX: S16.1XXA Strain of muscle, fascia and tendon at neck level, initial encounter (principal); M43.6 Torticollis; X50.9XXA Other and unspecified overexertion or strenuous movements or postures, initial encounter; E11.9 Type 2 diabetes mellitus without complications; Z79.01 Long term (current) use of anticoagulants; Z79.899 Other long term (current) drug therapy; Z79.84 Long term (current) use of oral hypoglycemic drugs; Z87.891 Personal history of nicotine dependence
CPT/HCPCS: 72040; 96372; 99284

== ENCOUNTER 2023-11-09 15:00 | Outpatient (RCR) | payer OTHER, SELFPAY | END 2023-11-18 16:20 | disposition home or self-care (01) | LOC: PT 15:00 | PROVIDERS: PCP Family Medicine; Visit Provider Family Medicine | DX: M25.512 Pain in left shoulder (principal) | CPT/HCPCS: 97010; 97012; 97140; 97162 ==

== ENCOUNTER 2023-11-13 23:43 | Emergency (ER) | payer OTHER, SELFPAY ==
[2023-11-13 23:46] VITALS: BP 148/81; PULSE 81; TEMP 36.8; O2SAT 97; BMI 35.7
--- OUTSIDE RECORDS SUMMARY | 2023-11-13 23:48 | XMS_ITS | CCD ---
Author Organization [facility] Care Team Providers Care Development Disability Specialist Name Role Phone ELTAHAWY, EHAB A Admitting Unavailable ADAM BEARAB A Attending Unavailable PHILLIP ANN Referring Unavailable PHILLIP ANN Primary Care Unavailable PHILLIP ANN Referring Unavailable XIAO TORRES Surgeon Unavailable ORLIN HUI Attending Unavailable CALLI PAIGE Admitting Unavailable [place] Procedure Practitioner Unavailab PHILLIP Muñoz Primary Care Unavailable [place] Procedure Practitioner Unavailab Dunia Light Surgeon Unavailsindhu e Phillip Ann Primary Care Physician Juan Miguel SALINAS Attending Unavailable Phillip Ann Referring Unavailable Juan Miguel SALINAS Attending Unavailable Phillip Ann Referring Unavailable HOY ., DR FISHER Primary Care [...] Unavailable WEST, DR VIVI Wyman Consulting Unavailable JENNA HENDERSON Attending Unavailable STACY VILLALTA Attending Unavailable STACY VILLALTA Attending Unavailable Allergies Allergy Classification Reported Allergen(s) Allergy Type Date of Onset Reaction(s) Facility (4 sources) Morphine; Translations: [morphine] Drug Allergy 9 [facility] (1 source) 22005,00; Translations: [40065,00] Propensity to adverse reactions (disorder) 0 [facility] (1 source) Morphine; Translations: [morphine] Drug Allergy Feeling nervous (finding), Tachycardia (finding) [facility] (1 source) No Known Medication Allergies; Translations: [No Known Medication Allergies] Propensity to adverse reactions (disorder) [facility] (1 source) dulaglutide; Translations: [DULAGLUTIDE] Drug Allergy 3 [facility] Medications Current Medications Medication Drug Class(es) Dates Sig (Normalized) Sig (Original) [id number] 200 actuat albuterol 0.09 mg/actuat metered dose [...] lower respiratory infection] Onset: 11-19-2022 09-03-2022 Chronic Congestive heart failure; nonhypertensive (1 source) Chronic diastolic heart failure 09-03-2022 Chronic Coronary atherosclerosis and other heart disease (1 source) Atherosclerotic heart disease of [place] coronary artery without angina pectoris; Translations: [ASHD CREEK CA W/O ANGINA PECTORIS] Onset: 08-11-2022 Chronic [...] [Essential (primary) hypertension] Onset: 11-19-2022 09-03-2022 Chronic Fluid and electrolyte disorders (2 sources) Hypokalemia; Translations: [Hypokalemia] Onset: 10-26-2023 Episodic Gout and other crystal arthropathies (2 sources) Gout; Translations: [Gout, unspecified] Onset: 10-30-2022 09-03-2022 Chronic Headache; including migraine (2 sources) Migraine; Translations: [Tension-type headache, unspecified, not intractable] Onset: 08-11-2022 09-03-2022 Chronic Headache; including migraine (1 source) Headache; including migraine; Translations: [HEADACHE UNSPECIFIED] Onset: 11-19-2022 Heart valve disorders (2 sources) Cardiac murmur, unspecified; Translations: [Cardiac murmur, unspecified] Onset: 10-26-2023 Episodic Hypertension with complications and secondary hypertension (2 sources) Hypertensive heart disease with heart failure; Translations: [Hypertensive heart disease with heart failure] Onset: 08-11-2022 Chronic Malaise and fatigue (1 source) Other fatigue; Translations: [OTHER FATIGUE] Onset: 09-13-2022 Episodic Mood disorders (1 source) Depressive disorder 09-03-2022 Chronic Nonmalignant breast conditions (1 source) Fibrocystic disease of breast 09-03-2022 Chronic Nutritional deficiencies (1 source) Vitamin D deficiency, unspecified; Translations: [VITAMIN D DEFICIENCY UNSPECIFIED] Onset: 09-13-2022 Chronic Other 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 (1 source) 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; Translations: [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 CURRNT USE ANTICOAGULANTS] Onset: 11-19-2022 Episodic Other aftercare (1 source) Other half-way (current) drug therapy; Translations: [OTH 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 CURRENT DRUG THERAPY] Onset: 11-19-2022 Episodic Other aftercare (1 source) [facility] (current) use of oral hypoglycemic drugs; Translations: [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 USE ORAL HYPOGLYCEMIC DX] Onset: 11-19-2022 Episodic Other circulatory disease (1 source) History of pericarditis 09-03-2022 Episodic Other connective tissue disease (3 sources) Pain in right toe(s); Translations: [PAIN IN RIGHT TOES] Onset: 10-28-2022 Episodic Other diseases of kidney and ureters (1 source) Cyst of kidney 09-03-2022 Episodic Other gastrointestinal disorders (1 source) Irritable bowel syndrome 09-03-2022 Chronic Other lower respiratory disease (2 sources) Shortness of breath; Translations: [Shortness of breath] Onset: 08-11-2022 Episodic Other nutritional; endocrine; and metabolic disorders (1 [...] caused by tuberculosis or sexually transmitted disease) (2 sources) Cardiomyopathy in diseases classified elsewhere; Translations: [Cardiomyopathy in diseases classified elsewhere] Onset: 08-11-2022 Chronic Shannon-; endo-; and myocarditis; cardiomyopathy (except that caused by tuberculosis or sexually transmitted disease) (1 source) Pericardial effusion 09-03-2022 Episodic Pulmonary heart disease (1 source) Pulmonary hypertension 09-03-2022 Chronic Residual codes; unclassified (1 source) Obstructive sleep apnea syndrome 09-03-2022 Chronic Residual codes; unclassified (1 source) Sleep apnea, unspecified; Translations: [SLEEP APNEA UNSPECIFIED] Onset: 11-19-2022 Chronic Residual codes; unclassified (2 sources) Obstructive sleep apnea (adult) (pediatric); Translations: [Obstructive sleep apnea (adult) (pediatric)] Onset: 01-27-2023 Chronic Residual codes; unclassified (1 source) Insomnia [...] Test Name Value Interpretation Reference Range Facility 36on 11-10-2023 36 Call reference # [id number]. - Approval # [id number] approved from 11/05/23 - 01/04/24. Normal [facility] 10-26-2023 Follow-up visit [id number] Cyndi Alvarez 1970 F Date Provider Department Center 10/26/2023 JENNA ABREU [facility] Family History Problem Relation Age of Onset Breast cancer Mother Aneurysm Mother Stroke Mother Heart attack Father Coronary artery disease Father Family Status - Relation Status Age at Mother Father Level of Service:99670 [place] OFFICE/OUTPATIENT ESTABLISHED MOD MDM 30 MIN Reason for Visit and Comments: Atrial Flutter [101] Congestive Heart Failure [127] Normal [facility] 05-05-2023 Follow-up visit [id number] Cyndi Alvarez 1970 F Date Provider Department Center 05/05/2023 STACY RODRIGUEZ [facility] Family History Problem Relation Age of Onset Breast cancer Mother Aneurysm Mother Stroke Mother Heart attack Father Coronary artery disease Father Family Status - Relation Status Age at Mother Father Level of Service:56089 [place] OFFICE/OUTPATIENT ESTABLISHED MOD MDM 30-39 MIN Normal [facility] 01-27-2023 Follow-up visit [id number] Cyndi Alvarez 1970 F Date Provider Department Center 01/27/2023 Laxmi-STACY VILLALTA [facility] Family History Problem Relation Age of Onset Breast cancer Mother Aneurysm Mother Stroke Mother Heart attack Father Coronary artery disease Father Family Status - Relation Status Age at Mother Father Level of Service:69462 [place] OFFICE/OUTPATIENT ESTABLISHED MOD MDM 30-39 MIN Normal [facility] CBC AUTO DIFFon 10-28-2022 BASO # 0.0 103/ul Normal 0.0-0.1 [facility] Comment on above: Performed By: #### L IPID, CMP, T4, TSH, FT3 #### [facility] [address] [place] [address] Dr. Mendel Herron Basophils/100 WBC (Bld) 0.2 % Normal 0.2-2.0 [facility] Comment on above: Performed By: #### L IPID, CMP, T4, TSH, FT3 #### [facility] [address] [place] [address] Dr. Mendel Herron EO # 0.0 103/ul Normal 0.0-0.7 [facility] Comment on above: Performed By: #### L IPID, CMP, T4, TSH, FT3 #### [facility] [address] [place] [address] Dr. Mendel Herron Eosinophils/100 WBC (Bld) 0.3 % Critically low 0.9-7.0 [facility] Comment on above: Performed By: #### L IPID, CMP, T4, TSH, FT3 #### [facility] [address] [place] [address] Dr. Mendel Herron Erythrocyte distribution width (RBC) [Ratio] 13.6 % Normal 11.0-15.0 [facility] Comment on above: Performed By: #### L IPID, CMP, T4, TSH, FT3 #### [facility] [address] [place] [address] Dr. Mendel eHrron Hematocrit (Bld) [Volume fraction] 40.1 % Normal 36.0-48.0 [facility] Comment on above: Performed By: #### L IPID, CMP, T4, TSH, FT3 #### [facility] [address] [place] [address] Dr. Mendel Herron Hemoglobin (Bld) [Mass/Vol] 13.0 g/dL Normal 12.0-16.0 [facility] Comment on above: Performed By: #### L IPID, CMP, T4, TSH, FT3 #### [facility] [address] [place] [address] Dr. Mendel Herron IG # 0.06 10e3/ul Critically high 0.00-0.03 [facility] Comment on above: Performed By: #### L IPID, CMP, T4, TSH, FT3 #### [facility] [address] [place] [address] Dr. Mendel Herron IG % 0.5 % Normal 0.0-0.5 [facility] Comment on above: Performed By: #### L IPID, CMP, T4, TSH, FT3 #### [facility] [address] [place] [address] Dr. Mendel Herron LYMPH # 2.8 103/ul Normal 1.2-3.8 [facility] Comment on above: Performed By: #### L IPID, CMP, T4, TSH, FT3 #### [facility] [address] [place] [address] Dr. Mendel Herron Lymphocytes/100 WBC (Bld) 22.4 % Normal 20.5-60.0 [facility] Comment on above: Performed By: #### L IPID, CMP, T4, TSH, FT3 #### [facility] [address] [place] [address] Dr. Mendel Herron MANUAL DIFF REQ NO Normal [facility] Comment on above: Performed By: #### L IPID, CMP, T4, TSH, FT3 #### [facility] [address] [place] [address] Dr. Mendel Herron MCH (RBC) [Entitic mass] 30.8 pg Normal 26.7-34.0 [facility] Comment on above: Performed By: #### L IPID, CMP, T4, TSH, FT3 #### [facility] [address] [address] [address] Mendel Herron MCHC (RBC) [Mass/Vol] 32.4 g/dL Normal 29.9-35.2 [facility] Comment on above: Performed By: #### L IPID, CMP, T4, TSH, FT3 #### [facility] [address] [place] [address] Dr. Mendel Herron MCV (RBC) [Entitic vol] 95.0 fL Normal 81.0-99.0 [facility] Comment on above: Performed By: #### L IPID, CMP, T4, TSH, FT3 #### [facility] [address] [place] [address] Dr. Mendel Herron MONO # 0.9 103/ul Critically high 0.3-0.8 [facility] Comment on above: Performed By: #### L IPID, CMP, T4, TSH, FT3 #### [facility] [address] [place] [address] Dr. Mendel Herron Monocytes/100 WBC (Bld) 7.2 % Normal 1.7-12.0 [facility] Comment on above: Performed By: #### L IPID, CMP, T4, TSH, FT3 #### [facility] [address] [place] [address] Dr. Mendel Herron NEUT # 8.6 103/ul Critically high 1.4-6.5 [facility] Comment on above: Performed By: #### L IPID, CMP, T4, TSH, FT3 #### [facility] [address] [place] [address] Dr. Mendel Herron Neutrophils/100 WBC (Bld) 69.4 % Normal 43.0-75.0 [facility] Comment on above: Performed By: #### L IPID, CMP, T4, TSH, FT3 #### [facility] [address] [place] [address] Dr. Mendel Herron Platelet mean volume (Bld) [Entitic vol] 9.9 fL Normal 9.5-13.5 [facility] Comment on above: Performed By: #### L IPID, CMP, T4, TSH, FT3 #### [facility] [address] [address] [address] Mendel Herron PLT 297 103/ul Normal 150-450 [facility] Comment on above: Performed By: #### L IPID, CMP, T4, TSH, FT3 #### [facility] [address] [address] [address] Mendel Herron RBC 4.22 106/ul Normal 4.20-5.40 [facility] Comment on above: Performed By: #### L IPID, CMP, T4, TSH, FT3 #### [facility] [address] [place] [address] Dr. Mendel Herron WBC 12.4 103/ul Critically high 4.0-11.0 [facility] Comment on above: Performed By: #### L IPID, CMP, T4, TSH, FT3 #### [facility] [address] [place] [address] Dr. Mendel Herron CRPon 10-28-2022 CRP 1.3 mg/dL Critically high <=1.[address] [facility] Comment on above: Performed By: #### L IPID, CMP, T4, TSH, FT3 #### [facility] [address] [place] [address] Dr. Mendel Herron PROF CHEM 8 (BAS METB)on Anion gap [Moles/Vol] 13.6 mmol/L Normal [facility] Comment on above: Performed By: #### L IPID, CMP, T4, TSH, FT3 #### [facility] [address] [address] [address] Mendel Herron Calcium [Mass/Vol] 9.3 mg/dL Normal 8.5-10.1 [facility] Comment on above: Performed By: #### L IPID, CMP, T4, TSH, FT3 #### [facility] [address] [place] [address] Dr. Mendel Herron Chloride [Moles/Vol] 102 mmol/L Normal 98-107 [facility] Comment on above: Performed By: #### L IPID, CMP, T4, TSH, FT3 #### [facility] [address] [address] [address] Mendel Herron CO2 [Moles/Vol] 30.7 mmol/L Normal 21.0-32.0 [facility] Comment on above: Performed By: #### L IPID, CMP, T4, TSH, FT3 #### [facility] [address] [address] [address] Mendel Herron Creatinine [Mass/Vol] 0.85 mg/dL Normal 0.55-1.02 [facility] Comment on above: Performed By: #### L IPID, CMP, T4, TSH, FT3 #### [facility] [address] [place] [address] Dr. Mendel Herron EGFR-AF PALAUAN >60 Normal >=60 [facility] Comment on above: Performed By: #### L IPID, CMP, T4, TSH, FT3 #### [facility] [address] [address] [address] Mendel Herron EGFR-NON AF PALAUAN >60 Normal >=60 [facility] Comment on above: Performed By: #### L IPID, CMP, T4, TSH, FT3 #### [facility] [address] [address] [address] Mendel Herron Glucose [Mass/Vol] 101 mg/dL Normal 74-106 [facility] Comment on above: Performed By: #### L IPID, CMP, T4, TSH, FT3 #### [facility] [address] [address] [address] Mendel Herron Potassium [Moles/Vol] 3.3 mmol/L Critically low 3.5-5.1 [facility] Comment on above: Performed By: #### L IPID, CMP, T4, TSH, FT3 #### [facility] [address] [address] [address] Mendel Herron Sodium [Moles/Vol] 143 mmol/L Normal 136-145 [facility] Comment on above: Performed By: #### L IPID, CMP, T4, TSH, FT3 #### [facility] [address] [address] [address] Mendel Herron Urea nitrogen [Mass/Vol] 12.0 mg/dL Normal 7.0-18.0 [facility] Comment on above: Performed By: #### L IPID, CMP, T4, TSH, FT3 #### [facility] [address] [address] [address] Mendel Herron Urea nitrogen/Creatinine [Mass ratio] 14.1 mg/mg Normal [facility] Comment on above: Performed By: #### L IPID, CMP, T4, TSH, FT3 #### [facility] [address] [address] [address] Mendel Herron URIC ACID SERUMon 10-28-2022 Urate [Mass/Vol] 7.8 mg/dL Critically high 2.6-6.0 [facility] Comment on above: Performed By: #### L IPID, CMP, T4, TSH, FT3 #### [facility] [address] [address] [address] Mendel Herron XR TOES RT MIN [...] GAIL PELLETIER Date: 2022-10-28 20:53 Normal [facility] Covid-19 PCR (CVDTB)on SARS-CoV-2 (COVID-19) RNA DEIRDRE+probe Ql (Unsp spec) Not detected Normal NOT DETECTED [facility] Comment on above: Result Comment: When [...] for this test is supported by the Communications Agent of Health and Human Service's declaration that [...] L IPID, CMP, T4, TSH, FT3 #### [facility] [address] [place] [address] Dr. Mendel Herron Consent for Procedure/Surger yon 09-17-2022 Consent for Procedure/Surgery [id number]: 127 Normal [facility] Facesheeton 09-17-2022 Facesheet [id number]#1.00CD: 127 Normal [facility] Pre-Certification Formon Pre-Certification Form [id number]#1.00CD: 127 Normal [facility] Ambulatory Visit Summaryon 0 09-15-2022 Ambulatory Visit Summary DIANA ALVAREZ :1970 Visit Date:09/15/2022 Ambulatory Visit Instructions Your Care Team Attending Physician - BRAD DIAZ, Juan Miguel Ortiz Primary Care Physician - Seth DIAZ, Phillip Referring Physician - Seth DIAZ, Phillip This Is Your Medications List Contact prescribing [...] Pulmonary HTN Pure hypercholesterolemia RUQ pain Normal [facility] ED Note-Physicianon 09-14-19 ED Note-Physician [id number]#1.00CD: 127 Normal [facility] RAD - MISCon 09-14-2022 RAD - MISC [id number]#1.00CD: 127 Normal [facility] RAD - Ultrasound Reporton RAD - Ultrasound Report [id number]: 127 Normal [facility] CBC AUTO DIFFon 02-22-2023 BASO # 0.1 103/ul Normal 0.0-0.1 [facility] Comment on above: Performed By: #### L IPID, CMP, T4, TSH, FT3 #### [facility] [address] [place] [address] Dr. Mendel Herron Basophils/100 WBC (Bld) 0.7 % Normal 0.2-2.0 [facility] Comment on above: Performed By: #### L IPID, CMP, T4, TSH, FT3 #### [facility] [address] [place] [address] Dr. Mendel Herron EO # 0.1 103/ul Normal 0.0-0.7 [facility] Comment on above: Performed By: #### L IPID, CMP, T4, TSH, FT3 #### [facility] [address] [place] [address] Dr. Mendel Herron Eosinophils/100 WBC (Bld) 0.7 % Critically low 0.9-7.0 [facility] Comment on above: Performed By: #### L IPID, CMP, T4, TSH, FT3 #### [facility] [address] [place] [address] Dr. Mendel Herron Erythrocyte distribution width (RBC) [Ratio] 13.1 % Normal 11.0-15.0 [facility] Comment on above: Performed By: #### L IPID, CMP, T4, TSH, FT3 #### [facility] [address] [place] [address] Dr. Mendel Herron Hematocrit (Bld) [Volume fraction] 43.7 % Normal 36.0-48.0 [facility] Comment on above: Performed By: #### L IPID, CMP, T4, TSH, FT3 #### [facility] [address] [place] [address] Dr. Mendel Herron Hemoglobin (Bld) [Mass/Vol] 14.4 g/dL Normal 12.0-16.0 [facility] Comment on above: Performed By: #### L IPID, CMP, T4, TSH, FT3 #### [facility] [address] [place] [address] Dr. Mendel Herron IG # 0.11 10e3/ul Critically high 0.00-0.03 [facility] Comment on above: Performed By: #### L IPID, CMP, T4, TSH, FT3 #### [facility] [address] [place] [address] Dr. Mendel Herron IG % 1.3 % Critically high 0.0-0.[address] [facility] Comment on above: Performed By: #### L IPID, CMP, T4, TSH, FT3 #### [facility] [address] [place] [address] Dr. Mendel Herron LYMPH # 2.4 103/ul Normal 1.2-3.8 [facility] Comment on above: Performed By: #### L IPID, CMP, T4, TSH, FT3 #### [facility] [address] [place] [address] Dr. Mendel Herron Lymphocytes/100 WBC (Bld) 27.9 % Normal 20.5-60.0 [facility] Comment on above: Performed By: #### L IPID, CMP, T4, TSH, FT3 #### [facility] [address] [place] [address] Dr. Mendel Herron MANUAL DIFF REQ NO Normal [facility] Comment on above: Performed By: #### L IPID, CMP, T4, TSH, FT3 #### [facility] [address] [place] [address] Dr. Mendel Herron MCH (RBC) [Entitic mass] 31.0 pg Normal 26.7-34.0 [facility] Comment on above: Performed By: #### L IPID, CMP, T4, TSH, FT3 #### [facility] [address] [place] [address] Dr. Mendel Herron MCHC (RBC) [Mass/Vol] 33.0 g/dL Normal 29.9-35.2 [facility] Comment on above: Performed By: #### L IPID, CMP, T4, TSH, FT3 #### [facility] [address] [place] [address] Dr. Mendel Herron MCV (RBC) [Entitic vol] 94.0 fL Normal 81.0-99.0 [facility] Comment on above: Performed By: #### L IPID, CMP, T4, TSH, FT3 #### [facility] [address] [place] [address] Dr. Mendel Herron MONO # 0.5 103/ul Normal 0.3-0.8 [facility] Comment on above: Performed By: #### L IPID, CMP, T4, TSH, FT3 #### [facility] [address] [place] [address] Dr. Mendel Herron Monocytes/100 WBC (Bld) 6.0 % Normal 1.7-12.0 [facility] Comment on above: Performed By: #### L IPID, CMP, T4, TSH, FT3 #### [facility] [address] [place] [address] Dr. Mendel Herron NEUT # 5.4 103/ul Normal 1.4-6.5 [facility] Comment on above: Performed By: #### L IPID, CMP, T4, TSH, FT3 #### [facility] [address] [place] [address] Dr. Mendel Herron Neutrophils/100 WBC (Bld) 63.4 % Normal 43.0-75.0 [facility] Comment on above: Performed By: #### L IPID, CMP, T4, TSH, FT3 #### [facility] [address] [place] [address] Dr. Mendel Herron Platelet mean volume (Bld) [Entitic vol] 9.8 fL Normal 9.5-13.5 [facility] Comment on above: Performed By: #### L IPID, CMP, T4, TSH, FT3 #### [facility] [address] [place] [address] Dr. Mendel Herron PLT 398 103/ul Normal 150-450 [facility] Comment on above: Performed By: #### L IPID, CMP, T4, TSH, FT3 #### [facility] [address] [place] [address] Dr. Mendel Herron RBC 4.65 106/ul Normal 4.20-5.40 [facility] Comment on above: Performed By: #### L IPID, CMP, T4, TSH, FT3 #### [facility] [address] [address] [address] Mendel Herron WBC 8.6 103/ul Normal 4.0-11.0 [facility] Comment on above: Performed By: #### L IPID, CMP, T4, TSH, FT3 #### [facility] [address] [address] [address] Mendel Herron FREE T3on 09-09-2022 FREE T3 2.59 pg/mlL Normal 2.18-3.98 [facility] Comment on above: Performed By: #### L IPID, CMP, T4, TSH, FT3 #### [facility] [address] [place] [address] Dr. Mendel Herron GLYCOHEMOGLOBIN A1Con 2022 ADA RECOMMENDATION SEE BELOW Normal [facility] Comment on above: Result Comment: ADA RECOMMENDED LIMIT 4.0 - 6.0 ADA THERAPEUTIC TARGET < 7.0 ACTION SUGGESTED > 7.0 Performed By: #### A 1C #### [facility] [address] [place] [address] Dr. Mendel Herron Glucose [Mass/Vol] 120 mg/dL Normal [facility] Comment on above: Performed By: #### A 1C #### [facility] [address] [place] [address] Dr. Mendel Herron HbA1c (Bld) [Mass fraction] 5.8 % Normal 4.5-6.2 [facility] Comment on above: Performed By: #### A 1C #### [facility] [address] [place] [address] Dr. Mendel Herron LIPID PROFILEon 09-09-2022 CHOL-HDL RATIO NORM SEE BELOW Normal [facility] Comment on above: Result Comment: 3.3 - 4.4 LOW RISK 4.4 - 7.1 AVERAGE RISK 7.1 - 11.0 MODERATE RISK >11.0 HIGH RISK Performed By: #### L IPID, CMP, T4, TSH, FT3 #### [facility] [address] [address] [address] Mendel Herron Cholesterol [Mass/Vol] 308 mg/dL Critically high <=200 [facility] Comment on above: Performed By: #### L IPID, CMP, T4, TSH, FT3 #### [facility] [address] [address] [address] Mendel Herron Cholesterol in HDL [Mass/Vol] 46 mg/dL Normal 40-60 [facility] Comment on above: Performed By: #### L IPID, CMP, T4, TSH, FT3 #### [facility] [address] [address] [address] Mendel Herron Cholesterol in LDL [Mass/Vol] 212.6 mg/dL Normal [facility] Comment on above: Performed By: #### L IPID, CMP, T4, TSH, FT3 #### [facility] [address] [address] [address] Mendel Herron Cholesterol.total/C holesterol in HDL [Mass ratio] 6.7 {ratio} Normal [facility] [place] Comment on above: Performed By: #### L IPID, CMP, T4, TSH, FT3 #### [facility] [address] [address] [address] Mendel Herron HDL NORMAL > or = 60 mg/dl - LO W CARDIOVASCULAR RISK <40 mg/dl - HIGH CARDIOVASCULAR RISK Normal [facility] [place] Comment on above: Performed By: #### L IPID, CMP, T4, TSH, FT3 #### [facility] [address] [address] [address] Mendel Herron LDL CALC NORMAL SEE BELOW Normal [facility] Comment on above: Result Comment: <100 mg/dl OPTIMAL 100 - 129 mg/dl NEAR OR ABOVE OPTIMAL 130 - 159 mg/dl BORDERLINE HIGH 160 - 189 mg/dl HIGH >190 mg/dl VERY HIGH Performed By: #### L IPID, CMP, T4, TSH, FT3 #### [facility] [address] [address] [address] Mendel Herron Triglyceride [Mass/Vol] 247 mg/dL Critically high <=150 [facility] Comment on above: Performed By: #### L IPID, CMP, T4, TSH, FT3 #### [facility] [address] [address] [address] Mendel Herron VLDL CALC 49.4 mg/dL Normal [facility] [place] Comment on above: Performed By: #### L IPID, CMP, T4, TSH, FT3 #### [facility] [address] [address] [address] Mendel Herron PROF 14(COMP METB)on 023 Albumin [Mass/Vol] 4.0 g/dL Normal 3.4-5.0 [facility] Comment on above: Performed By: #### L IPID, CMP, T4, TSH, FT3 #### [facility] [address] [place] [address] Dr. Mendel Herron Albumin/Globulin [Mass ratio] 0.9 {ratio} Normal [facility] [place] Comment on above: Performed By: #### L IPID, CMP, T4, TSH, FT3 #### [facility] [address] [place] [address] Dr. Mendel Herron ALP [Catalytic activity/Vol] 115 U/L Normal 46-116 [facility] [place] Comment on above: Performed By: #### L IPID, CMP, T4, TSH, FT3 #### [facility] [address] [address] [address] Mendel Herron ALT [Catalytic activity/Vol] 30 U/L Normal 14-59 [facility] [place] Comment on above: Performed By: #### L IPID, CMP, T4, TSH, FT3 #### [facility] [address] [address] [address] Mendel Herron Anion gap [Moles/Vol] 12.7 mmol/L Normal [facility] [place] Comment on above: Performed By: #### L IPID, CMP, T4, TSH, FT3 #### [facility] [address] [address] [address] Mendel Herron AST [Catalytic activity/Vol] 18 U/L Normal 15-37 [facility] [place] Comment on above: Performed By: #### L IPID, CMP, T4, TSH, FT3 #### [facility] [address] [address] [address] Mendel Herron Bilirubin [Mass/Vol] 0.7 mg/dL Normal 0.2-1.0 [facility] [place] Comment on above: Performed By: #### L IPID, CMP, T4, TSH, FT3 #### [facility] [address] [address] [address] Mendel Herron Calcium [Mass/Vol] 9.7 mg/dL Normal 8.5-10.1 [facility] Comment on above: Performed By: #### L IPID, CMP, T4, TSH, FT3 #### [facility] [address] [place] [address] Dr. Mendel Herron Chloride [Moles/Vol] 103 mmol/L Normal 98-107 [facility] [place] Comment on above: Performed By: #### L IPID, CMP, T4, TSH, FT3 #### [facility] [address] [address] [address] Mendel Herron CO2 [Moles/Vol] 26.5 mmol/L Normal 21.0-32.0 [facility] Comment on above: Performed By: #### L IPID, CMP, T4, TSH, FT3 #### [facility] [address] [place] [address] Dr. Mendel Herron Creatinine [Mass/Vol] 0.83 mg/dL Normal 0.55-1.02 [facility] [place] Comment on above: Performed By: #### L IPID, CMP, T4, TSH, FT3 #### [facility] [address] [place] [address] Dr. Mendel Herron EGFR-AF PALAUAN >60 Normal >=60 [facility] Comment on above: Performed By: #### L IPID, CMP, T4, TSH, FT3 #### [facility] [address] [place] [address] Dr. Mendel Herron EGFR-NON AF PALAUAN >60 Normal >=60 [facility] [place] Comment on above: Performed By: #### L IPID, CMP, T4, TSH, FT3 #### [facility] [address] [place] [address] Dr. Mendel Herron Globulin (S) [Mass/Vol] 4.4 g/dL Normal [facility] [place] Comment on above: Performed By: #### L IPID, CMP, T4, TSH, FT3 #### [facility] [address] [place] [address] Dr. Mendel Herron Glucose [Mass/Vol] 97 mg/dL Normal 74-106 [facility] Comment on above: Performed By: #### L IPID, CMP, T4, TSH, FT3 #### [facility] [address] [place] [address] Dr. Mendel Herron Potassium [Moles/Vol] 4.2 mmol/L Normal 3.5-5.1 [facility] [place] Comment on above: Performed By: #### L IPID, CMP, T4, TSH, FT3 #### [facility] [address] [place] [address] Dr. Mendel Herron Protein [Mass/Vol] 8.4 g/dL Critically high 6.4-8.2 [facility] Comment on above: Performed By: #### L IPID, CMP, T4, TSH, FT3 #### [facility] [address] [place] [address] Dr. Mendel Herron Sodium [Moles/Vol] 138 mmol/L Normal 136-145 [facility] Comment on above: Performed By: #### L IPID, CMP, T4, TSH, FT3 #### [facility] [address] [place] [address] Dr. Mendel Herron Urea nitrogen [Mass/Vol] 12.0 mg/dL Normal 7.0-18.0 [facility] [place] Comment on above: Performed By: #### L IPID, CMP, T4, TSH, FT3 #### [facility] [address] [place] [address] Dr. Mendel Herron Urea nitrogen/Creatinine [Mass ratio] 14.5 mg/mg Normal [facility] [place] Comment on above: Performed By: #### L IPID, CMP, T4, TSH, FT3 #### [facility] [address] [place] [address] Dr. Mendel Herron T4on 09-09-2022 T4 [Mass/Vol] 8.80 ug/dL Normal 4.80-13.90 [facility] Comment on above: Performed By: #### L IPID, CMP, T4, TSH, FT3 #### [facility] [address] [address] [address] Mendel Herron TSHon 09-09-2022 TSH 0.898 uIU/mL Normal 0.358-3.740 [facility] Comment on above: Performed By: #### L IPID, CMP, T4, TSH, FT3 #### [facility] [address] [place] [address] Dr. Mendel Herron VITAMIN D 25 OHon 09-09-2022 VIT D 25-OH 24.0 ng/mL Normal [facility] [place] Comment on above: Performed By: #### L IPID, CMP, T4, TSH, FT3 #### [facility] [address] [place] [address] Dr. Mendel Herron VIT D RANGES SEE BELOW Normal [facility] [place] Comment on above: Result Comment: <20 ng/mL Vit D deficient 20 - <30 ng/mL Vit D insufficient 30 - 100 ng/mL Vit D sufficient >100 ng/mL Potential Toxicity Performed By: #### L IPID, CMP, T4, TSH, FT3 #### [facility] [address] [place] [address] Dr. Mendel Herron Physician Referralon 023 Physician Referral [id number]: 127 Normal [facility] [place] HEPATOBILIARY SCAN W EFon 08-20-2022 [...] by: VIVI GARY Date: 2022-08-20 16:07 Normal [facility] US SINGLE QUAD RT UPPERon US [...] by: JEAN LOPES Date: 2022-08-11 15:50 Normal [facility] CARDIAC SUBHA ADMITon 023 CK [Catalytic activity/Vol] 30 U/L Normal 26-192 [facility] Comment on above: Performed By: #### L IPID, CMP, T4, TSH, FT3 #### [facility] [address] [place] [address] Dr. Mendel Herron CK.MB [Mass/Vol] 1.02 ng/mL Normal <=3.60 [facility] Comment on above: Performed By: #### L IPID, CMP, T4, TSH, FT3 #### [facility] [address] [place] [address] Dr. Mendel Herron HSTROP 32.8 pg/mL Normal 4.0-51.3 [facility] Comment on above: Result Comment: CUT- OFF POINTS HAVE BEEN ESTABLISHED BASED ON THE FOURTH UNIVERSAL DEFINITIONS OF MYOCARDIAL INFARCTION. THE UPPER REFERENCE LIMIT (URL) OF TROPONIN, DEFINED THE 99TH PERCENTILE OF cTnI DISTRIBUTION IN A REFERENCE POPULATION, HAS BEEN CONFIRMED THE DECISION THRESHOLD FOR [place] DIAGNOSIS. Performed By: #### L IPID, CMP, T4, TSH, FT3 #### [facility] [address] [place] [address] Dr. Mendel Herron SONYA 23 ng/mL Normal 9-82 [facility] Comment on above: Performed By: #### L IPID, CMP, T4, TSH, FT3 #### [facility] [address] [place] [address] Dr. Mendel Herron CBC AUTO DIFFon 08-09-2022 BASO # 0.0 103/ul Normal 0.0-0.1 [facility] [place] Comment on above: Performed By: #### L IPID, CMP, T4, TSH, FT3 #### [facility] [address] [place] [address] Dr. Mendel Herron Basophils/100 WBC (Bld) 0.3 % Normal 0.2-2.0 [facility] [place] Comment on above: Performed By: #### L IPID, CMP, T4, TSH, FT3 #### [facility] [address] [place] [address] Dr. Mendel Herron EO # 0.0 103/ul Normal 0.0-0.7 [facility] [place] Comment on above: Performed By: #### L IPID, CMP, T4, TSH, FT3 #### [facility] [address] [place] [address] Dr. Mendel Herron Eosinophils/100 WBC (Bld) 0.3 % Critically low 0.9-7.0 [facility] [place] Comment on above: Performed By: #### L IPID, CMP, T4, TSH, FT3 #### [facility] [address] [place] [address] Dr. Mendel Herron Erythrocyte distribution width (RBC) [Ratio] 13.1 % Normal 11.0-15.0 [facility] [place] Comment on above: Performed By: #### L IPID, CMP, T4, TSH, FT3 #### [facility] [address] [place] [address] Dr. Mendel Herron Hematocrit (Bld) [Volume fraction] 42.7 % Normal 36.0-48.0 [facility] [place] Comment on above: Performed By: #### L IPID, CMP, T4, TSH, FT3 #### [facility] [address] [place] [address] Dr. Mendel Herron Hemoglobin (Bld) [Mass/Vol] 15.4 g/dL Normal 12.0-16.0 [facility] [place] Comment on above: Performed By: #### L IPID, CMP, T4, TSH, FT3 #### [facility] [address] [place] [address] Dr. Mendel Herron IG # 0.05 10e3/ul Critically high 0.00-0.03 [facility] Comment on above: Performed By: #### L IPID, CMP, T4, TSH, FT3 #### [facility] [address] [place] [address] Dr. Mendel Herron IG % 0.4 % Normal 0.0-0.5 [facility] [place] Comment on above: Performed By: #### L IPID, CMP, T4, TSH, FT3 #### [facility] [address] [place] [address] Dr. Mendel Herron LYMPH # 2.5 103/ul Normal 1.2-3.8 [facility] [place] Comment on above: Performed By: #### L IPID, CMP, T4, TSH, FT3 #### [facility] [address] [place] [address] Dr. Mendel Herron Lymphocytes/100 WBC (Bld) 21.2 % Normal 20.5-60.0 [facility] [place] Comment on above: Performed By: #### L IPID, CMP, T4, TSH, FT3 #### [facility] [address] [place] [address] Dr. Mendel Herron MANUAL DIFF REQ NO Normal [facility] Comment on above: Performed By: #### L IPID, CMP, T4, TSH, FT3 #### [facility] [address] [place] [address] Dr. Mendel Herron MCH (RBC) [Entitic mass] 31.7 pg Normal 26.7-34.0 [facility] Comment on above: Performed By: #### L IPID, CMP, T4, TSH, FT3 #### [facility] [address] [place] [address] Dr. Mendel Herron MCHC (RBC) [Mass/Vol] 36.1 g/dL Critically high 29.9-35.2 [facility] Comment on above: Performed By: #### L IPID, CMP, T4, TSH, FT3 #### [facility] [address] [place] [address] Dr. Mendel Herron MCV (RBC) [Entitic vol] 87.9 fL Normal 81.0-99.0 [facility] [place] Comment on above: Performed By: #### L IPID, CMP, T4, TSH, FT3 #### [facility] [address] [place] [address] Dr. Mendel Herron MONO # 0.7 103/ul Normal 0.3-0.8 [facility] Comment on above: Performed By: #### L IPID, CMP, T4, TSH, FT3 #### [facility] [address] [place] [address] Dr. Mendel Herron Monocytes/100 WBC (Bld) 6.3 % Normal 1.7-12.0 [facility] Comment on above: Performed By: #### L IPID, CMP, T4, TSH, FT3 #### [facility] [address] [place] [address] Dr. Mendel Herron NEUT # 8.4 103/ul Critically high 1.4-6.5 [facility] Comment on above: Performed By: #### L IPID, CMP, T4, TSH, FT3 #### [facility] [address] [address] [address] Mendel Herron Neutrophils/100 WBC (Bld) 71.5 % Normal 43.0-75.0 [facility] Comment on above: Performed By: #### L IPID, CMP, T4, TSH, FT3 #### [facility] [address] [address] [address] Mendel Herron Platelet mean volume (Bld) [Entitic vol] 9.8 fL Normal 9.5-13.5 [facility] [place] Comment on above: Performed By: #### L IPID, CMP, T4, TSH, FT3 #### [facility] [address] [place] [address] Dr. Mendel Herron PLT 374 103/ul Normal 150-450 [facility] [place] Comment on above: Performed By: #### L IPID, CMP, T4, TSH, FT3 #### [facility] [address] [address] [address] Mendel Herron RBC 4.86 106/ul Normal 4.20-5.40 [facility] Comment on above: Performed By: #### L IPID, CMP, T4, TSH, FT3 #### [facility] [address] [address] [address] Mendel Herron WBC 11.7 103/ul Critically high 4.0-11.0 [facility] Comment on above: Performed By: #### L IPID, CMP, T4, TSH, FT3 #### [facility] [address] [place] [address] HEAD WO CONon [...] HELLEN VELAZQUEZ Date: 2022-08-09 15:23 Normal [facility] Covid-19 PCR ([facility])on 07-20 SARS-CoV-2 (COVID-19) RNA DEIRDRE+probe Ql (Unsp spec) Not detected Normal NOT DETECTED [facility] Comment on above: Result Comment: When [...] for this test is supported by the Communications Agent of Health and Human Service's declaration that [...] L IPID, CMP, T4, TSH, FT3 #### [facility] [address] [place] [address] Dr. Mendel Herron ER URINE PROFILEon 3 Bilirubin Ql (U) Negative Normal NEGATIVE [facility] Comment on above: Performed By: #### L IPID, CMP, T4, TSH, FT3 #### [facility] [address] [address] [address] Mendel Herron Clarity (U) CLEAR Normal CLEAR [facility] Comment on above: Performed By: #### L IPID, CMP, T4, TSH, FT3 #### [facility] [address] [place] [address] Dr. Mendel Herron Color (U) LT. YELLOW Normal YELLOW [facility] Comment on above: Performed By: #### L IPID, CMP, T4, TSH, FT3 #### [facility] [address] [place] [address] Dr. Mendel Herron ERUAHD A micrscopic examina tion will be performed if indicated. Normal [facility] Comment on above: Performed By: #### L IPID, CMP, T4, TSH, FT3 #### [facility] [address] [place] [address] Dr. Mendel Herron Glucose Ql (U) Negative Normal NEGATIVE [facility] Comment on above: Performed By: #### L IPID, CMP, T4, TSH, FT3 #### [facility] [address] [place] [address] Dr. Mendel Herron Hemoglobin Ql (U) TRACE-INTACT Abnormal NEGATIVE [facility] Comment on above: Performed By: #### L IPID, CMP, T4, TSH, FT3 #### [facility] [address] [place] [address] Dr. Mendel Herron Ketones Ql (U) Negative Normal NEGATIVE [facility] Comment on above: Performed By: #### L IPID, CMP, T4, TSH, FT3 #### [facility] [address] [place] [address] Dr. Mendel Herron LEUKOCYTES Negative Normal NEGATIVE [facility] Comment on above: Performed By: #### L IPID, CMP, T4, TSH, FT3 #### [facility] [address] [place] [address] Dr. Mendel Herron Nitrite Ql (U) Negative Normal NEGATIVE [facility] Comment on above: Performed By: #### L IPID, CMP, T4, TSH, FT3 #### [facility] [address] [place] [address] Dr. Mendel Herron pH (U) 5.0 [pH] Normal 5-9 [facility] [place] Comment on above: Performed By: #### L IPID, CMP, T4, TSH, FT3 #### [facility] [address] [place] [address] Dr. Mendel Herron SPEC GRAVITY 1.015 Normal 1.005-<=1.02 5 [facility] Comment on above: Performed By: #### L IPID, CMP, T4, TSH, FT3 #### [facility] [address] [place] [address] Dr. Mendel Herron UA PROTEIN Negative Normal NEGATIVE/ TRACE [facility] Comment on above: Performed By: #### L IPID, CMP, T4, TSH, FT3 #### [facility] [address] [place] [address] Dr. Mendel Herron UR MICRO IND INDICATED Normal [facility] Comment on above: Performed By: #### L IPID, CMP, T4, TSH, FT3 #### [facility] [address] [place] [address] Dr. Mendel Herron Urobilinogen Qn (U) 0.2 {James'U}/dL Normal 0.2 - 1. 0 [facility] Comment on above: Performed By: #### L IPID, CMP, T4, TSH, FT3 #### [facility] [address] [place] [address] Dr. Mendel Herron LIPASEon 08-09-2022 Lipase [Catalytic activity/Vol] 114.0 U/L Normal 73.0-393.0 [facility] Comment on above: Performed By: #### L IPA, BMP, CMADM #### [facility] [address] [place] [address] Dr. Mendel Herron PROF CHEM 8 (BAS METB)on Anion gap [Moles/Vol] 18.9 mmol/L Normal [facility] Comment on above: Performed By: #### L IPA, BMP, CMADM #### [facility] [address] [place] [address] Dr. Mendel Herron Calcium [Mass/Vol] 9.4 mg/dL Normal 8.5-10.1 [facility] Comment on above: Performed By: #### L IPA, BMP, CMADM #### [facility] [address] [address] [address] Mendel Herron Chloride [Moles/Vol] 97 mmol/L Critically low 98-107 [facility] Comment on above: Performed By: #### L IPA, BMP, CMADM #### [facility] [address] [place] [address] Dr. Mendel Herron CO2 [Moles/Vol] 26.0 mmol/L Normal 21.0-32.0 [facility] Comment on above: Performed By: #### L IPA, BMP, CMADM #### [facility] [address] [place] [address] Dr. Mendel Herron Creatinine [Mass/Vol] 0.85 mg/dL Normal 0.55-1.02 [facility] Comment on above: Performed By: #### L IPA, BMP, CMADM #### [facility] [address] [place] [address] Dr. Mendel Herron EGFR-AF PALAUAN >60 Normal >=60 [facility] Comment on above: Performed By: #### L IPA, BMP, CMADM #### [facility] [address] [place] [address] Dr. Mendel Herron EGFR-NON AF PALAUAN >60 Normal >=60 [facility] Comment on above: Performed By: #### L IPA, BMP, CMADM #### [facility] [address] [address] [address] Mendel Herron Glucose [Mass/Vol] 120 mg/dL Critically high 74-106 [facility] Comment on above: Performed By: #### L IPA, BMP, CMADM #### [facility] [address] [place] [address] Dr. Mendel Herron Potassium [Moles/Vol] 3.9 mmol/L Normal 3.5-5.1 [facility] Comment on above: Performed By: #### L IPA, BMP, CMADM #### [facility] [address] [place], [place] [id number] Dr. Mendel Herron Sodium [Moles/Vol] 138 mmol/L Normal 136-145 [facility] Comment on above: Performed By: #### L IPA, BMP, CMADM #### [facility] [address] [place] [address] Dr. Mendel Herron Urea nitrogen [Mass/Vol] 17.0 mg/dL Normal 7.0-18.0 [facility] Comment on above: Performed By: #### L IPA, BMP, CMADM #### [facility] [address] [place] [address] Dr. Mendel Herron Urea nitrogen/Creatinine [Mass ratio] 20.0 mg/mg Normal [facility] Comment on above: Performed By: #### L IPA, BMP, CMADM #### [facility] [address] [place] [address] Dr. Mendel Herron TROPONIN, HIGH SENSITIVITYon 08-09-2022 HSTROP 32.5 pg/mL Normal 4.0-51.3 [facility] Comment on above: Result Comment: CUT- OFF POINTS HAVE BEEN ESTABLISHED BASED ON THE FOURTH UNIVERSAL DEFINITIONS OF MYOCARDIAL INFARCTION. THE UPPER REFERENCE LIMIT (URL) OF TROPONIN, DEFINED THE 99TH PERCENTILE OF cTnI DISTRIBUTION IN A REFERENCE POPULATION, HAS BEEN CONFIRMED THE DECISION THRESHOLD FOR [place] DIAGNOSIS. Performed By: #### L IPID, CMP, T4, TSH, FT3 #### [facility] [address] [place] [address] Dr. Mendel Herron URINE MICROSCOPIC ONLYon BACTERIA NONE SEEN Normal NONE SEEN [facility] Comment on above: Performed By: #### L IPID, CMP, T4, TSH, FT3 #### [facility] [address] [place] [address] Dr. Mendel Herron Bacteria identified Cx Nom (U) NOT INDICATED Normal [facility] Comment on above: Performed By: #### L IPID, CMP, T4, TSH, FT3 #### [facility] [address] [place] [address] Dr. Mendel Herron CAST NONE SEEN Normal NONE SEEN [facility] Comment on above: Performed By: #### L IPID, CMP, T4, TSH, FT3 #### [facility] [address] [address] [address] Mendel Herron Crystals LM Nom (Urine sed) NONE SEEN Normal NONE SEEN [facility] Comment on above: Performed By: #### L IPID, CMP, T4, TSH, FT3 #### [facility] [address] [address] [address] Mendel Herron Epithelial cells LM Ql (Urine sed) NONE SEEN Normal NONE SEEN /RARE [facility] Comment on above: Performed By: #### L IPID, CMP, T4, TSH, FT3 #### [facility] [address] [address] [address] Mendel Herron MUCOUS NONE SEEN Normal NONE SEEN [facility] Comment on above: Performed By: #### L IPID, CMP, T4, TSH, FT3 #### [facility] [address] [address] [address] Mendel Herron RBC 0-2 Normal 0-2 [facility] Comment on above: Performed By: #### L IPID, CMP, T4, TSH, FT3 #### [facility] [address] [address] [address] Mendel Herron WBC NONE SEEN Normal NONE SEEN [facility] Comment on above: Performed By: #### L IPID, CMP, T4, TSH, FT3 #### [facility] [address] [id number] [address] Mendel Herron XR CHEST 1 Von [...] by: MARY DIETZ Date: 2022-08-09 15:18 Normal [facility] H PYLORI ANTIBODY IGGon 07-20 H. PYLORI IGG ABS 0.11 Index Value Normal 0.00-0.79 [facility] Comment on above: Result Comment: Nega tive <0.80 Equivocal 0.80 - 0.89 Positive >0.89 Performed By: #### L IPID, CMP, T4, TSH, FT3 #### [facility] [address] [place] [address] Dr. Mendel Herron AMYLASEon 08-06-2022 Amylase [Catalytic activity/Vol] 57 U/L Normal 25-115 [facility] Comment on above: Performed By: #### L IPID, CMP, T4, TSH, FT3 #### [facility] [address] [place] [address] Dr. Mendel Herron CBC AUTO DIFFon 08-06-2022 BASO # 0.1 103/ul Normal 0.0-0.1 [facility] Comment on above: Performed By: #### L IPID, CMP, T4, TSH, FT3 #### [facility] [address] [place] [address] Dr. Mendel Herron Basophils/100 WBC (Bld) 0.7 % Normal 0.2-2.0 [facility] Comment on above: Performed By: #### L IPID, CMP, T4, TSH, FT3 #### [facility] [address] [place] [address] Dr. Mendel Herron EO # 0.1 103/ul Normal 0.0-0.7 [facility] Comment on above: Performed By: #### L IPID, CMP, T4, TSH, FT3 #### [facility] [address] [place] [address] Dr. Mendel Herron Eosinophils/100 WBC (Bld) 0.5 % Critically low 0.9-7.0 [facility] Comment on above: Performed By: #### L IPID, CMP, T4, TSH, FT3 #### [facility] [address] [place] [address] Dr. Mendel Herron Erythrocyte distribution width (RBC) [Ratio] 13.7 % Normal 11.0-15.0 [facility] Comment on above: Performed By: #### L IPID, CMP, T4, TSH, FT3 #### [facility] [address] [place] [address] Dr. Mendel Herron Hematocrit (Bld) [Volume fraction] 46.2 % Normal 36.0-48.0 [facility] [place] Comment on above: Performed By: #### L IPID, CMP, T4, TSH, FT3 #### [facility] [address] [place] [address] Dr. Mendel Herron Hemoglobin (Bld) [Mass/Vol] 15.1 g/dL Normal 12.0-16.0 [facility] Comment on above: Performed By: #### L IPID, CMP, T4, TSH, FT3 #### [facility] [address] [place] [address] Dr. Mendel Herron IG # 0.06 10e3/ul Critically high 0.00-0.03 [facility] Comment on above: Performed By: #### L IPID, CMP, T4, TSH, FT3 #### [facility] [address] [place] [address] Dr. Mendel Herron IG % 0.6 % Critically high 0.0-0.[address] [facility] Comment on above: Performed By: #### L IPID, CMP, T4, TSH, FT3 #### [facility] [address] [place] [address] Dr. Mendel Herron LYMPH # 2.5 103/ul Normal 1.2-3.8 [facility] [place] Comment on above: Performed By: #### L IPID, CMP, T4, TSH, FT3 #### [facility] [address] [place] [address] Dr. Mendel Herron Lymphocytes/100 WBC (Bld) 23.4 % Normal 20.5-60.0 [facility] [place] Comment on above: Performed By: #### L IPID, CMP, T4, TSH, FT3 #### [facility] [address] [place] [address] Dr. Mendel Herron MANUAL DIFF REQ NO Normal [facility] Comment on above: Performed By: #### L IPID, CMP, T4, TSH, FT3 #### [facility] [address] [place] [address] Dr. Mendel Herron MCH (RBC) [Entitic mass] 31.4 pg Normal 26.7-34.0 [facility] Comment on above: Performed By: #### L IPID, CMP, T4, TSH, FT3 #### [facility] [address] [place] [address] Dr. Mendel Herron MCHC (RBC) [Mass/Vol] 32.7 g/dL Normal 29.9-35.2 [facility] Comment on above: Performed By: #### L IPID, CMP, T4, TSH, FT3 #### [facility] [address] [place] [address] Dr. Mendel Herron MCV (RBC) [Entitic vol] 96.0 fL Normal 81.0-99.0 [facility] [place] Comment on above: Performed By: #### L IPID, CMP, T4, TSH, FT3 #### [facility] [address] [place] [address] Dr. Mendel Herron MONO # 0.6 103/ul Normal 0.3-0.8 [facility] [place] Comment on above: Performed By: #### L IPID, CMP, T4, TSH, FT3 #### [facility] [address] [place] [address] Dr. Mendel Herron Monocytes/100 WBC (Bld) 6.0 % Normal 1.7-12.0 [facility] Comment on above: Performed By: #### L IPID, CMP, T4, TSH, FT3 #### [facility] [address] [place] [address] Dr. Mendel Herron NEUT # 7.4 103/ul Critically high 1.4-6.5 [facility] Comment on above: Performed By: #### L IPID, CMP, T4, TSH, FT3 #### [facility] [address] [place] [address] Dr. Mendel Herron Neutrophils/100 WBC (Bld) 68.8 % Normal 43.0-75.0 [facility] [place] Comment on above: Performed By: #### L IPID, CMP, T4, TSH, FT3 #### [facility] [address] [address] [address] Mendel Herron Platelet mean volume (Bld) [Entitic vol] 9.7 fL Normal 9.5-13.5 [facility] Comment on above: Performed By: #### L IPID, CMP, T4, TSH, FT3 #### [facility] [address] [address] [address] Mendel Herron PLT 331 103/ul Normal 150-450 [facility] Comment on above: Performed By: #### L IPID, CMP, T4, TSH, FT3 #### [facility] [address] [address] [address] Mendel Herron RBC 4.81 106/ul Normal 4.20-5.40 [facility] [place] Comment on above: Performed By: #### L IPID, CMP, T4, TSH, FT3 #### [facility] [address] [address] [address] Mendel Herron WBC 10.7 103/ul Normal 4.0-11.0 [facility] [place] Comment on above: Performed By: #### L IPID, CMP, T4, TSH, FT3 #### [facility] [address] HEAD WO CONon [...] JEAN LOPES Date: 2022-08-06 08:39 Normal [facility] LIPASEon 01-19-2023 Lipase [Catalytic activity/Vol] 125.0 U/L Normal 73.0-393.0 [facility] [place] Comment on above: Performed By: #### L IPID, CMP, T4, TSH, FT3 #### [facility] [address] [address] [address] Mendel Herron PROF 14(COMP METB)on 023 Albumin [Mass/Vol] 3.7 g/dL Normal 3.4-5.0 [facility] Comment on above: Performed By: #### L IPID, CMP, T4, TSH, FT3 #### [facility] [address] [place] [address] Dr. Mendel Herron Albumin/Globulin [Mass ratio] 0.9 {ratio} Normal [facility] [place] Comment on above: Performed By: #### L IPID, CMP, T4, TSH, FT3 #### [facility] [address] [place] [address] Dr. Mendel Herron ALP [Catalytic activity/Vol] 110 U/L Normal 46-116 [facility] [place] Comment on above: Performed By: #### L IPID, CMP, T4, TSH, FT3 #### [facility] [address] [place] [address] Dr. Mendel Herron ALT [Catalytic activity/Vol] 25 U/L Normal 14-59 [facility] [place] Comment on above: Performed By: #### L IPID, CMP, T4, TSH, FT3 #### [facility] [address] [address] [address] Mendel Herron Anion gap [Moles/Vol] 14.0 mmol/L Normal [facility] [place] Comment on above: Performed By: #### L IPID, CMP, T4, TSH, FT3 #### [facility] [address] [place] [address] Dr. Mendel Herron AST [Catalytic activity/Vol] 16 U/L Normal 15-37 [facility] [place] Comment on above: Performed By: #### L IPID, CMP, T4, TSH, FT3 #### [facility] [address] [place] [address] Dr. Mendel Herron Bilirubin [Mass/Vol] 0.6 mg/dL Normal 0.2-1.0 [facility] [place] Comment on above: Performed By: #### L IPID, CMP, T4, TSH, FT3 #### [facility] [address] [address] [address] Mendel Herron Calcium [Mass/Vol] 9.3 mg/dL Normal 8.5-10.1 [facility] Comment on above: Performed By: #### L IPID, CMP, T4, TSH, FT3 #### [facility] [address] [address] [address] Mendel Herron Chloride [Moles/Vol] 103 mmol/L Normal 98-107 [facility] [place] Comment on above: Performed By: #### L IPID, CMP, T4, TSH, FT3 #### [facility] [address] [place] [address] Dr. Mendel Herron CO2 [Moles/Vol] 27.3 mmol/L Normal 21.0-32.0 [facility] Comment on above: Performed By: #### L IPID, CMP, T4, TSH, FT3 #### [facility] [address] [address] [address] Mendel Herron Creatinine [Mass/Vol] 0.71 mg/dL Normal 0.55-1.02 [facility] [place] Comment on above: Performed By: #### L IPID, CMP, T4, TSH, FT3 #### [facility] [address] [place] [address] Dr. Mendel Herron EGFR-AF PALAUAN >60 Normal >=60 [facility] Comment on above: Performed By: #### L IPID, CMP, T4, TSH, FT3 #### [facility] [address] [address] [address] Mendel Herron EGFR-NON AF PALAUAN >60 Normal >=60 [facility] [place] Comment on above: Performed By: #### L IPID, CMP, T4, TSH, FT3 #### [facility] [address] [address] [address] Mendel Herron Globulin (S) [Mass/Vol] 4.3 g/dL Normal [facility] Comment on above: Performed By: #### L IPID, CMP, T4, TSH, FT3 #### [facility] [address] [address] [address] Mendel Herron Glucose [Mass/Vol] 102 mg/dL Normal 74-106 [facility] Comment on above: Performed By: #### L IPID, CMP, T4, TSH, FT3 #### [facility] [address] [address] [address] Mendel Herron Potassium [Moles/Vol] 4.3 mmol/L Normal 3.5-5.1 [facility] Comment on above: Performed By: #### L IPID, CMP, T4, TSH, FT3 #### [facility] [address] [place] [address] Dr. Mendel Herron Protein [Mass/Vol] 8.0 g/dL Normal 6.4-8.2 [facility] Comment on above: Performed By: #### L IPID, CMP, T4, TSH, FT3 #### [facility] [address] [address] [address] Mendel Herron Sodium [Moles/Vol] 140 mmol/L Normal 136-145 [facility] Comment on above: Performed By: #### L IPID, CMP, T4, TSH, FT3 #### [facility] [address] [place] [address] Dr. Mendel Herron Urea nitrogen [Mass/Vol] 19.0 mg/dL Critically high 7.0-18.0 [facility] Comment on above: Performed By: #### L IPID, CMP, T4, TSH, FT3 #### [facility] [address] [address] [address] Mendel Herron Urea nitrogen/Creatinine [Mass ratio] 26.8 mg/mg Normal [facility] Comment on above: Performed By: #### L IPID, CMP, T4, TSH, FT3 #### [facility] [address] [place] [address] Dr. Mendel Herron Covid-19 PCR ([facility])on 06-19 SARS-CoV-2 (COVID-19) RNA DEIRDRE+probe Ql (Unsp spec) Not detected Normal NOT DETECTED [facility] Comment on above: Result Comment: This test is not yet approved or cleared by the [place] FDA. When there are no FDA-approved or cleared tests available, and other criteria are met, FDA can make tests available under an emergency access mechanism called an Emergency Use Authorization (EUA). The EUA for this test is supported by the Communications Agent of Health and Human Service's (HHS's) declaration [...] SARS-CoV-2. Performed By: #### C VDTBH #### [facility] [address] [place] [address] Dr. Mendel Herron INFLUENZA A AND B AGon 07-16 [facility] SEE BELOW Normal [facility] [place] Comment on above: Result Comment: Nega tive for Flu A protein angiten. Infection due to Flu A cannot be ruled out. Flu A angiten in the sample may be below the detection limit of the test. Performed By: #### L IPID, CMP, T4, TSH, FT3 #### [facility] [address] [address] [address] [facility] Normal [facility] [place] Comment on above: Result Comment: Nega tive for Flu B protein antigen. Infection due to Flu B cannot be ruled out. Flu B antigen in the sample may be below the detection limit of the test. Performed By: #### L IPID, CMP, T4, TSH, FT3 #### [facility] [address] [place] [address] Dr. Mendel Herron INFLUENZA A AG Negative Normal NEGATIVE SEE COMMENT [facility] Comment on above: Performed By: #### L IPID, CMP, T4, TSH, FT3 #### [facility] [address] [place], [place] [address] Dr. Mendel Herron INFLUENZA B AG Negative Normal NEGATIVE SEE COMMENT [facility] Comment on above: Performed By: #### L IPID, CMP, T4, TSH, FT3 #### [facility] [address] [place], [place] [address] Dr. Mendel Herron Covid-19 PCR ([facility])on 04-19 SARS-CoV-2 (COVID-19) RNA DEIRDRE+probe Ql (Unsp spec) Not detected Normal NOT DETECTED [facility] Comment on above: Result Comment: This test is not yet approved or cleared by the [place] FDA. When there are no FDA-approved or cleared tests available, and other criteria are met, FDA can make tests available under an emergency access mechanism called an Emergency Use Authorization (EUA). The EUA for this test is supported by the Communications Agent of Health and Human Service's (HHS's) declaration [...] L IPID, CMP, T4, TSH, FT3 #### [facility] [address] [place], [place] [address] Dr. Mendel Herron INFLUENZA A AND B AGon 05-11 [facility] SEE BELOW Normal [facility] Comment on above: Result Comment: Nega tive for Flu A protein angiten. Infection due to Flu A cannot be ruled out. Flu A angiten in the sample may be below the detection limit of the test. Performed By: #### L IPID, CMP, T4, TSH, FT3 #### [facility] [address] [address] [address] Mendel Herron [facility] SEE BELOW Normal [facility] Comment on above: Result Comment: Nega tive for Flu B protein antigen. Infection due to Flu B cannot be ruled out. Flu B antigen in the sample may be below the detection limit of the test. Performed By: #### L IPID, CMP, T4, TSH, FT3 #### [facility] [address] [address] [address] Mendel Herron INFLUENZA A AG Negative Normal NEGATIVE SEE COMMENT [facility] [place] Comment on above: Performed By: #### L IPID, CMP, T4, TSH, FT3 #### [facility] [address] [address] [address] Mendel Herron INFLUENZA B AG Negative Normal NEGATIVE SEE COMMENT [facility] [place] Comment on above: Performed By: #### L IPID, CMP, T4, TSH, FT3 #### [facility] [address] [place] [address] Dr. Mendel Herron INTERNAL CONTROLS Within Normal Limits Normal Wi thin Normal Limits [facility] [place] Comment on above: Performed By: #### L IPID, CMP, T4, TSH, FT3 #### [facility] [address] [address] [address] Mendel Herron Comprehensive Metabolic Empo n 12-23-2021 Albumin [Mass/Vol] 3.7 g/dL Normal 3.2-5.5 [facility] Comment on above: Performed By: #### E BS CMP, EBS LIPID #### [facility] [address] Albumin/Globulin [Mass ratio] 1.0 {ratio} Normal [facility] Comment on above: Performed By: #### E BS CMP, EBS LIPID #### [facility] [address] [place] [address] [place] ALP [Catalytic activity/Vol] 159 U/L High 32-92 [facility] Comment on above: Performed By: #### E BS CMP, EBS LIPID #### [facility] [address] [place] [id number] [place] ALT [Catalytic activity/Vol] 28 U/L Normal 10-60 [facility] Comment on above: Performed By: #### E BS CMP, EBS LIPID #### [facility] [address] [place] [address] [place] AST [Catalytic activity/Vol] 27 U/L Normal 10-42 [facility] Comment on above: Performed By: #### E BS CMP, EBS LIPID #### [facility] [address] [place] [address] [place] Bilirubin [Mass/Vol] 1.2 mg/dL Normal 0.3-1.2 [facility] Comment on above: Performed By: #### E BS CMP, EBS LIPID #### [facility] [address] Calcium [Mass/Vol] 9.2 mg/dL Normal 8.2-10.2 [facility] Comment on above: Performed By: #### E BS CMP, EBS LIPID #### [facility] [address] [place] [address] [place] Chloride [Moles/Vol] 100 mmol/L Normal 95-114 [facility] Comment on above: Performed By: #### E BS CMP, EBS LIPID #### [facility] [address] [place] [address] [place] CO2 [Moles/Vol] 20.6 mmol/L Low 22.0-30.0 [facility] Comment on above: Performed By: #### E BS CMP, EBS LIPID #### [facility] [address] [place] [address] [place] Creatinine [Mass/Vol] 0.57 mg/dL Normal 0.44-1.03 [facility] Comment on above: Performed By: #### E BS CMP, EBS LIPID #### [facility] [address] [place] [address] [place] Estimated GFR ( Ni > 60 Normal [facility] Comment on above: Result Comment: GFR estimated reference range: According to KDOQI guidelines, <60 ml/min/1.73m2 is sufficient to diagnose a patient with chronic kidney disease. Performed By: #### E BS CMP, EBS LIPID #### [facility] [address] [place] [address] Estimated GFR (Non- Am > 60 Normal [facility] Comment on above: Performed By: #### E BS CMP, EBS LIPID #### [facility] [address] Globulin (S) [Mass/Vol] 3.7 g/dL Normal [facility] Comment on above: Performed By: #### E BS CMP, EBS LIPID #### [address] Glucose [Mass/Vol] 100 mg/dL Normal 70-100 [facility] Comment on above: Performed By: #### E BS CMP, EBS LIPID #### [address] Potassium [Moles/Vol] 3.9 mmol/L Normal 3.5-5.1 [facility] Comment on above: Performed By: #### E BS CMP, EBS LIPID #### [address] Protein [Mass/Vol] 7.4 g/dL Normal 6.1-7.9 [facility] Comment on above: Performed By: #### E BS CMP, EBS LIPID #### [address] Sodium [Moles/Vol] 135 mmol/L Low 136-146 [facility] Comment on above: Performed By: #### E BS CMP, EBS LIPID #### [facility] [address] [place] [address] Urea nitrogen [Mass/Vol] 12 mg/dL Normal 9-23 [facility] Comment on above: Performed By: #### E BS CMP, EBS LIPID #### [facility] [address] [place] [address] Lipid Profileon 12-23-2021 Cholesterol [Mass/Vol] 213 mg/dL High 140-200 [facility] Comment on above: Result Comment: Chol less than 200 mg/dl low risk Chol 201-239 mg/dl borderline risk Chol 240 mg/dl and greater high risk Performed By: #### E BS CMP, EBS LIPID #### [facility] [address] Cholesterol in HDL [Mass/Vol] 36 mg/dL Normal 35-85 [facility] Comment on above: Result Comment: HDL CHOL ATP-III CLASSIFICATION Cardiovascular Risk HDL > or equal to 60 mg/dL LOW HDL < 40 mg/dL HIGH Performed By: #### E BS CMP, EBS LIPID #### [facility] [address] Cholesterol.total/C holesterol in HDL [Mass ratio] 5.9 {ratio} Normal <5.0 [facility] Comment on above: Result Comment: PERF ORMED BY: [place] [address] PATHOLOGIST LANG PATH THERAPIST MARIBEL AGUILLON M.D. Performed By: #### E BS CMP, EBS LIPID #### [address] LDL Cholesterol,Calcula lizbet 151 mg/dL High 0-100 [facility] Comment on above: Result Comment: LDL ATP III CLASSIFICATION LDL less than 100 mg/dL Optimal LDL 100-129 mg/dL Near or above optimal LDL 130-159 mg/dL Borderline high LDL 160-189 mg/dL High LDL greater than 189 mg/dL Very high Performed By: #### E BS CMP, EBS LIPID #### [address] Triglyceride w/Reflex 129 mg/dL Normal 35-149 [facility] Comment on above: Result Comment: TRIG ATP III CLASSIFICATION TRIG less than 150 mg/dL Normal TRIG 150-199 mg/dL Borderline high TRIG 200-500 mg/dL High TRIG greater than 500 mg/dL Very high Standard traceable to the Center for Disease Conrtrol and Prevention (CDC) test method. Performed By: #### E BS CMP, EBS LIPID #### [facility] [address] VLDL CHOLESTEROL 25 mg/dL Normal [facility] Comment on above: Performed By: #### E BS CMP, EBS LIPID #### [facility] [address] Covid-19 PCR ([facility])on 11-16 SARS-CoV-2 (COVID-19) RNA DEIRDRE+probe Ql (Unsp spec) Detected Critically abnormal NOT DETECTED [facility] Comment on above: Result Comment: This test is not yet approved or cleared by the [place] FDA. When there are no FDA-approved or cleared tests available, and other criteria are met, FDA can make tests available under an emergency access mechanism called an Emergency Use Authorization (EUA). The EUA for this test is supported by the [place] of Health and Human Service's declaration that [...] used). Performed By: #### C VDTBH #### [facility] [address] [place] [address] Dr. Mendel Herron INFLUENZA A AND B AGon 12-02 [facility] SEE BELOW Normal [facility] Comment on above: Result Comment: Nega tive for Flu A protein angiten. Infection due to Flu A cannot be ruled out. Flu A angiten in the sample may be below the detection limit of the test. Performed By: #### L IPID, CMP, T4, TSH, FT3 #### [facility] [address] [place] [address] Dr. Mendel Herron INFLUBNEG SEE BELOW Normal [facility] Comment on above: Result Comment: Nega tive for Flu B protein antigen. Infection due to Flu B cannot be ruled out. Flu B antigen in the sample may be below the detection limit of the test. Performed By: #### L IPID, CMP, T4, TSH, FT3 #### [facility] [address] [place] [address] Dr. Mendel Herron INFLUENZA A AG Negative Normal NEGATIVE SEE COMMENT [facility] Comment on above: Performed By: #### L IPID, CMP, T4, TSH, FT3 #### [facility] [address] [place] [address] Dr. Mendel Herron INFLUENZA B AG Negative Normal NEGATIVE SEE COMMENT [facility] Comment on above: Performed By: #### L IPID, CMP, T4, TSH, FT3 #### [facility] [address] [place], [place] [address] Dr. Mendel Herron INTERNAL CONTROLS Within Normal Limits Normal Wi thin Normal Limits [facility] Comment on above: Performed By: #### L IPID, CMP, T4, TSH, FT3 #### [facility] [address] [place], [place] [address] Dr. Mendel Herron Cardiovascular Lab Reporton 08-18-2021 Cardiovascular Lab Report [facility] Patient Name: [facility] S MR #: [id number] Department of Physician: Curtis Martinez MD Medicine Service Date: 08/18/2021 Division of Birthdate: 1970 Cardiology Room #: [facility] Cardiovascular Services [place] [address] Cardiovascular Laboratory Report ATRIAL FLUTTER ABLATION AND [...] ab (more content not included)... Normal [facility] BILL Antinuclear Antibodieson 04-23-2021 Antinuclear Abs, IFA Negative Normal . [facility] Comment on above: Result Comment: Nega tive <1:80 Borderline 1:80 Positive >1:80 ICAP nomenclature: AC-0 For more information about Hep-2 cell patterns use ANApatterns.org, the official website for the International Consensus on Antinuclear Antibody (BILL) Patterns (ICAP). Performed at: [facility] [address] [id number] [employer] Machine Operator: Ger Yen PhD, Phone: [phone] PERFORMED BY: [place] [address] PATHOLOGIST LANG PATH THERAPIST MARIBEL AGUILLON M.D. Performed By: #### E SR, CRP, CBC, CREAT #### [address] #### BILL #### [facility] , C-Reactive Proteinon 021 C-Reactive Protein 0.7 mg/dL Normal 0.0-1.0 [facility] Comment on above: Result Comment: PERF ORMED BY: [place] [address] PATHOLOGIST LANG PATH THERAPIST MARIBEL AGUILLON M.D. Performed By: #### E SR, CRP, CBC, CREAT #### [address] #### BILL #### [facility] , Complement C3on 04-23-2021 Complement C3 170 mg/dL High 82-167 [facility] Comment on above: Result Comment: Perf ormed at: [facility] [address] [address] Sand Cleaning Machine Operator: Ger Yen PhD, Phone: [phone] Performed By: #### A DDONUAPLUS #### [address] #### CH50, C3, C4 #### [facility] , Complement C4on 04-23-2021 Complement C4 14 mg/dL Normal 12-38 [facility] Comment on above: Performed By: #### A DDONUAPLUS #### [address] #### CH50, C3, C4 #### [facility] , Complement Total (CH50)on Complement Total (CH50) >60 Normal >41 [facility] Comment on above: Result Comment: Age [...] determine out of range values. Performed at: [facility] [address] [id number] [employer] Cle[employer] Machine Operator: Ger Yen PhD, Phone: [phone] PERFORMED BY: [place] [address] PATHOLOGIST LANG PATH THERAPIST MARIBEL AGUILLON M.D. Performed By: #### E BS CMP, EBS LIPID #### [address] Complete Blood Count Auto Di ffon 04-23-2021 Basophils (Bld) [#/Vol] 0.1 10*3/uL Normal 0.0-0.2 [facility] Comment on above: Performed By: #### E SR, CRP, CBC, CREAT #### [address] #### BILL #### [facility] , Basophils/100 WBC (Bld) 0.7 % Normal . [facility] Comment on above: Performed By: #### E SR, CRP, CBC, CREAT #### [address] #### BILL #### [facility] , Eosinophils (Bld) [#/Vol] 0.1 10*3/uL Normal 0.0-0.45 [facility] Comment on above: Performed By: #### E SR, CRP, CBC, CREAT #### [address] #### BILL #### [facility] , Eosinophils/100 WBC (Bld) 0.5 % Normal . [facility] Comment on above: Performed By: #### E SR, CRP, CBC, CREAT #### [address] #### BILL #### [facility] , Erythrocyte distribution width (RBC) [Ratio] 18.0 % High 11.9-15.3 [facility] Comment on above: Performed By: #### E SR, CRP, CBC, CREAT #### [place] [address] [place] #### BILL #### [facility] , Hematocrit (Bld) [Volume fraction] 31.6 % Low 34.0-46.4 [facility] Comment on above: Performed By: #### E SR, CRP, CBC, CREAT #### [address] #### BILL #### [facility] , Hemoglobin (Bld) [Mass/Vol] 9.8 g/dL Low 11.8-15.4 [facility] Comment on above: Performed By: #### E SR, CRP, CBC, CREAT #### [address] #### BILL #### [facility] , Lymphocytes (Bld) [#/Vol] 1.7 10*3/uL Normal 1.00-4.8 [facility] Comment on above: Performed By: #### E SR, CRP, CBC, CREAT #### [address] #### BILL #### [facility] , Lymphocytes/100 WBC (Bld) 15.0 % Normal . [facility] Comment on above: Performed By: #### E SR, CRP, CBC, CREAT #### [address] #### BILL #### [facility] , MCH (RBC) [Entitic mass] 24.8 pg Normal 24.7-34.3 [facility] Comment on above: Performed By: #### E SR, CRP, CBC, CREAT #### [address] #### BILL #### [facility] , MCV (RBC) [Entitic vol] 80.1 fL Normal 80-100 [facility] Comment on above: Performed By: #### E SR, CRP, CBC, CREAT #### [facility] [address] [place] [address] [place] #### BILL #### [facility] , Mean Corpuscular HGB Conc 31.0 g/dL Low 32.0-35.0 [facility] Comment on above: Performed By: #### E SR, CRP, CBC, CREAT #### [facility] [address] [place] [address] [place] #### BILL #### [facility] , Monocytes (Bld) [#/Vol] 0.5 10*3/uL Normal 0.0-0.8 [facility] Comment on above: Performed By: #### E SR, CRP, CBC, CREAT #### [facility] [address] [place] [address] [place] #### BILL #### [facility] , Monocytes/100 WBC (Bld) 4.6 % Normal . [facility] Comment on above: Performed By: #### E SR, CRP, CBC, CREAT #### [address] #### BILL #### [facility] , Neutrophils (Bld) [#/Vol] 9.1 10*3/uL High 1.8-7.7 [facility] Comment on above: Performed By: #### E SR, CRP, CBC, CREAT #### [address] #### BILL #### [facility] , Neutrophils/100 WBC (Bld) 79.2 % Normal . [facility] Comment on above: Performed By: #### E SR, CRP, CBC, CREAT #### [facility] [address] [place] [address] [place] #### BILL #### [facility] , Nucleated RBC/100 WBC (Bld) [Ratio] 0.1 % Normal 0-0.5 [facility] Comment on above: Performed By: #### E SR, CRP, CBC, CREAT #### [facility] [address] [place] [address] [place] #### BILL #### [facility] , Platelet mean volume (Bld) [Entitic vol] 8.3 fL Normal 6.3-10.7 [facility] Comment on above: Performed By: #### E SR, CRP, CBC, CREAT #### [facility] [address] [place] [address] #### BILL #### [facility] , Platelets (Bld) [#/Vol] 336 10*3/uL Normal 150-450 [facility] Comment on above: Performed By: #### E SR, CRP, CBC, CREAT #### [facility] [address] [place] [address] [place] #### BILL #### [facility] , RBC (Bld) [#/Vol] 3.94 10*6/uL Normal 3.60-5.00 [facility] Comment on above: Performed By: #### E SR, CRP, CBC, CREAT #### [address] #### BILL #### [facility] , WBC (Bld) [#/Vol] 11.5 10*3/uL High 4.5-11.0 [facility] Comment on above: Performed By: #### E SR, CRP, CBC, CREAT #### [place] [address] [place] #### BILL #### [facility] , Creatinineon 04-23-2021 Creatinine [Mass/Vol] 0.75 mg/dL Normal 0.44-1.03 [facility] Comment on above: Performed By: #### E SR, CRP, CBC, CREAT #### [place] [address] [place] #### BILL #### [facility] , Estimated GFR ( Ni > 60 Normal [facility] Comment on above: Result Comment: GFR estimated reference range: According to KDOQI guidelines, <60 ml/min/1.73m2 is sufficient to diagnose a patient with chronic kidney disease. Performed By: #### E SR, CRP, CBC, CREAT #### [place] [id number] [place] #### BILL #### [facility] , Estimated GFR (Non- Am > 60 Normal [facility] Comment on above: Performed By: #### E SR, CRP, CBC, CREAT #### [facility] [address] [place] [address] #### BILL #### [facility] , Dipstick and Microscopicon 1 Appearance (U) Clear Normal Clear [facility] Comment on above: Order Comment: Name Collection Type:: Clean-Voided Midstream Performed By: #### A DDONUAPLUS #### [address] #### CH50, C3, C4 #### [facility] , Bacteria,Urine None Seen Normal None Seen [facility] Comment on above: Order Comment: Name Collection Type:: Clean-Voided Midstream Performed By: #### A DDONUAPLUS #### [address] #### CH50, C3, C4 #### [facility] , Bilirubin,Urine Negative Normal Negative [facility] Comment on above: Order Comment: Name Collection Type:: Clean-Voided Midstream Performed By: #### A DDONUAPLUS #### [address] #### CH50, C3, C4 #### [facility] , Color (U) Yellow Normal Yellow [facility] Comment on above: Order Comment: Name Collection Type:: Clean-Voided Midstream Performed By: #### A DDONUAPLUS #### [facility] [address] [place] [address] #### CH50, C3, C4 #### [facility] , Glucose Ql (U) 100 mg/dL High Normal [facility] Comment on above: Order Comment: Name Collection Type:: Clean-Voided Midstream Performed By: #### A DDONUAPLUS #### [address] #### CH50, C3, C4 #### [facility] , Hyaline Casts,Urine 0-8 Normal 0-8 [facility] Comment on above: Order Comment: Name Collection Type:: Clean-Voided Midstream Result Comment: PERF ORMED BY: [place] [address] PATHOLOGIST LANG PATH THERAPIST MARIBEL AGUILLON M.D. Performed By: #### A DDONUAPLUS #### [address] #### CH50, C3, C4 #### [facility] , Ketones Ql (U) Negative Normal Negative [facility] Comment on above: Order Comment: Name Collection Type:: Clean-Voided Midstream Performed By: #### A DDONUAPLUS #### [address] #### CH50, C3, C4 #### [facility] , Leukocyte esterase Test strip Ql (U) Negative Normal Negative [facility] Comment on above: Order Comment: Name Collection Type:: Clean-Voided Midstream Performed By: #### A DDONUAPLUS #### [address] #### CH50, C3, C4 #### [facility] , Nitrite,Urine Negative Normal Negative [facility] Comment on above: Order Comment: Name Collection Type:: Clean-Voided Midstream Performed By: #### A DDONUAPLUS #### [address] #### CH50, C3, C4 #### [facility] , Occult Blood,Urine Negative Normal Negative [facility] Comment on above: Order Comment: Name Collection Type:: Clean-Voided Midstream Performed By: #### A DDONUAPLUS #### [address] #### CH50, C3, C4 #### [facility] , pH (U) 5.0 [pH] Normal 5.0-9.0 [facility] Comment on above: Order Comment: Name Collection Type:: Clean-Voided Midstream Performed By: #### A DDONUAPLUS #### [address] #### CH50, C3, C4 #### [facility] , Protein,Urine Negative Normal Negative [facility] Comment on above: Order Comment: Name Collection Type:: Clean-Voided Midstream Performed By: #### A DDONUAPLUS #### [address] #### CH50, C3, C4 #### [facility] , RBC,Urine None Seen Normal 0-4 [facility] Comment on above: Order Comment: Name Collection Type:: Clean-Voided Midstream Performed By: #### A DDONUAPLUS #### [address] #### CH50, C3, C4 #### [facility] , Specificy [place],Urine 1.009 Normal 1.001-1.030 [facility] Comment on above: Order Comment: Name Collection Type:: Clean-Voided Midstream Performed By: #### A DDONUAPLUS #### [address] #### CH50, C3, C4 #### [facility] , Squamous Epithelial Cell,Urine 0-1 Normal 0-2 [facility] Comment on above: Order Comment: Name Collection Type:: Clean-Voided Midstream Performed By: #### A DDONUAPLUS #### [address] #### CH50, C3, C4 #### [facility] , Urobilinogen,Urine Normal Normal Normal [facility] Comment on above: Order Comment: Name Collection Type:: Clean-Voided Midstream Performed By: #### A DDONUAPLUS #### [facility] [address] [place] [address] [place] #### CH50, C3, C4 #### [facility] , WBC LM.HPF (Urine sed) [#/Area] 0 /[HPF] Normal 0-4 [facility] Comment on above: Order Comment: Name Collection Type:: Clean-Voided Midstream Performed By: #### A DDONUAPLUS #### [facility] [address] [place] [address] #### CH50, C3, C4 #### [facility] , Erythrocyte Sedimentation Ra ryley 04-23-2021 ESR (Bld) [Velocity] 55 mm/h High 0-29 [facility] Comment on above: Result Comment: PERF ORMED BY: [place] [address] PATHOLOGIST LANG PATH THERAPIST MARIBEL AGUILLON M.D. Performed By: #### E SR, CRP, CBC, CREAT #### [facility] [address] [place] [address] #### BILL #### [facility] , BASIC METABOLIC PANELon 03-20 Calcium [Mass/Vol] 8.7 mg/dL Normal 8.6-10.3 [facility] Comment on above: Order Comment: No: D o not add to previous draw Performed By: #### 5 7307, 96111 #### [facility] [address] [facility] [address], [facility] Chloride [Moles/Vol] 97 mmol/L Low 98-107 [facility] Comment on above: Order Comment: No: D o not add to previous draw Performed By: #### 5 7301, 07665 #### [facility] [address] [place] [address], [place] CO2 [Moles/Vol] 36 mmol/L High 21-31 [facility] Comment on above: Order Comment: No: D o not add to previous draw Performed By: #### 5 7307, 95970 #### [facility] [address] [place] [address], [place] Creatinine [Mass/Vol] 0.74 mg/dL Normal 0.60-1.20 [facility] Comment on above: Order Comment: No: D o not add to previous draw Performed By: #### 5 7307, 82575 #### [facility] [address] [place] [address], [place] GFR/1.73 sq M.predicted among blacks MDRD (S/P/Bld) [Vol rate/Area] mL/min/{1.73_m2} Normal >60 [facility] Comment on above: Order Comment: No: D o not add to previous draw Performed By: #### 5 7307, 11627 #### [facility] [address] [place] [address], [place] GFR/1.73 sq M.predicted among non-blacks MDRD (S/P/Bld) [Vol rate/Area] mL/min/{1.73_m2} Normal >60 [facility] Comment on above: Order Comment: No: D o not add to previous draw Performed By: #### 5 7307, 23601 #### [facility] [address] [place] [address], [place] Glucose [Mass/Vol] 123 mg/dL High 70-100 [facility] Comment on above: Order Comment: No: D o not add to previous draw Performed By: #### 5 7307, 48058 #### [facility] [address] [place] [address], [place] Potassium [Moles/Vol] 4.3 mmol/L Normal 3.5-5.1 [facility] Comment on above: Order Comment: No: D o not add to previous draw Performed By: #### 5 73, 55458 #### [facility] [address] [place] [address], [facility] Sodium [Moles/Vol] 139 mmol/L Normal 136-145 [facility] Comment on above: Order Comment: No: D o not add to previous draw Performed By: #### 5 7307, 14156 #### [facility] [address] [place] [address], [facility] Urea nitrogen [Mass/Vol] 24 mg/dL Normal 7-25 [facility] Comment on above: Order Comment: No: D o not add to previous draw Performed By: #### 5 7307, 00125 #### [facility] [address] CBC COMPLETE BLOOD COUNTon 04-11-2021 Erythrocyte distribution width (RBC) [Ratio] 16.8 % High 11.5-15.0 [facility] Comment on above: Order Comment: No: D o not add to previous draw Performed By: #### 5 7307, 30075 #### [facility] [address] [place] [address], [facility] Hematocrit (Bld) [Volume fraction] 29.7 % Low 36.0-45.0 [facility] Comment on above: Order Comment: No: D o not add to previous draw Performed By: #### 5 7307, 20103 #### [facility] [address] [place] [address], [facility] Hemoglobin (Bld) [Mass/Vol] 8.9 g/dL Low 12.0-15.0 [facility] Comment on above: Order Comment: No: D o not add to previous draw Performed By: #### 5 7307, 21518 #### [facility] [address] [place] [address], [facility] MCH (RBC) [Entitic mass] 25.4 pg Low 27.0-33.0 [facility] Comment on above: Order Comment: No: D o not add to previous draw Performed By: #### 5 7307, 75320 #### [facility] [address] [place] [address], [facility] MCHC (RBC) [Mass/Vol] 30.0 g/dL Low 32.0-35.0 [facility] Comment on above: Order Comment: No: D o not add to previous draw Performed By: #### 5 7307, 43998 #### [facility] [address] [place] [address], [facility] MCV (RBC) [Entitic vol] 84.9 fL Normal 82.0-98.0 [facility] Comment on above: Order Comment: No: D o not add to previous draw Performed By: #### 5 73, 73619 #### [facility] [address] [place] [address], [facility] Nucleated RBC/100 WBC (Bld) [Ratio] 0 % Normal 0-0 [facility] Comment on above: Order Comment: No: D o not add to previous draw Performed By: #### 5 7307, 85449 #### [facility] [address] [facility] [place] [address], [facility] PLAT CNT 446 10*3/uL High 150-400 [facility] Comment on above: Order Comment: No: D o not add to previous draw Performed By: #### 5 7307, 83890 #### [facility] [address] [place] [id number], [facility] RBC (Bld) [#/Vol] 3.50 10*6/uL Low 3.80-5.00 [facility] Comment on above: Order Comment: No: D o not add to previous draw Performed By: #### 5 7307, 28051 #### [facility] [address] [place] [id number], [facility] WBC (Bld) [#/Vol] 16.54 10*3/uL High 4.00-10.60 [facility] Comment on above: Order Comment: No: D o not add to previous draw Performed By: #### 5 7307, 48302 #### [facility] [address] [facility] [place] [address], [facility] Cardiovascular Lab Reporton 04-11-2021 Cardiovascular Lab Report [facility] Patient Name: [facility] S MR #: [id number] Department of Physician: London Rodas M.D. Division of Service Date: 04/11/2021 Cardiology Birthdate: 1970 Adult Cardiovascular Room #: 5AB 405000 [facility] [address] [facility]. [place] [address] Cardiovascular Laboratory Report PROCEDURE PERFORMED: Transesophageal echocardiogram and cardioversion. INDICATION: Atrial flutter. FELLOW: Dunia Sierra MD PROCEDURE IN DETAIL: Informed consent was obtained from the patient after explaining the indication, risks, benefits, as well as alternatives. The patient understood and agreed, and signed the consent form. The patient was brought to the labor law professor and transesophageal echocardiogram was performed, under conscious [...] P/Dunia Sierra MD Date Trans: 04/11/2021 12:53 P/mmo [id number] cc: Phillip Ann M.D. [address], [place] [address] Normal [facility] MAGNESIUM BLOODon 04-11-2021 Magnesium [Mass/Vol] 2.3 mg/dL Normal 1.9-2.7 [facility] Comment on above: Order Comment: No: D o not add to previous draw Performed By: #### 5 7307, 60589 #### [facility] [address] POC GLUCOSE LABon 04-11-2021 Glucose [Mass/Vol] 124 mg/dL High 70-100 [facility] Comment on above: Performed By: #### 5 7307, 91235 #### [facility] [address] TROPONIN-Ion 04-11-2021 Troponin I.cardiac [Mass/Vol] 0.06 ng/mL High 0.00-0.04 [facility] Comment on above: Order Comment: No: D o not add to previous draw Result Comment: REFE RENCE RANGES: 0.00 - 0.04 ng/ml NORMAL 0.05 - 0.50 ng/ml INDETERMINATE > 0.50 ng/ml CONSISTENT WITH AN M.I. Performed By: #### 5 7307, 78755 #### [facility] [address] *BLOOD CULTUREon 04-10-2021 *BLOOD CULTURE Clinical Report: (D) Specimen: BLOOD CULTURE Collected: 04/10/2021 09:50 Status: Final Last Updated: 04/15/2021 11:28 (1) Right hand CULT RES (Final) No Growth Day 5 Normal [facility] Comment on above: Order Comment: No: D o not add to previous draw Performed By: #### 5 7307, 68233 #### [facility] [address] [place] [address], [place] *BLOOD CULTURE Clinical Report: (D) Specimen: BLOOD CULTURE Collected: 04/10/2021 09:50 Status: Final Last Updated: 04/15/2021 11:28 (1) Left hand CULT RES (Final) No Growth Day 5 Normal [facility] Comment on above: Order Comment: No: D o not add to previous draw Performed By: #### 5 7307, 87681 #### [facility] [address] *SARS-CoV-2 COVID-19on 04-10 SARS-CoV-2 (COVID-19) RNA DEIRDRE+probe Ql (Unsp spec) Not detected Normal Not Detected [facility] Comment on above: Order Comment: No: D o not add to previous draw Performed By: #### 5 7307, 16721 #### [facility] [address] APTTon 04-10-2021 aPTT Coag (Bld) [Time] 23.4 s Low 25.0-35.0 [facility] Comment on above: Order Comment: No: D [...] THIS PURPOSE. Performed By: #### 5 7307, 60090 #### [facility] [address] aPTT Coag (Bld) [Time] 23.2 s Low 25.0-35.0 [facility] Comment on above: Order Comment: No: D [...] THIS PURPOSE. Performed By: #### 5 7307, 14379 #### [facility] [address] [place] [address], [facility] BASIC METABOLIC PANELon 09-2 Calcium [Mass/Vol] 8.6 mg/dL Normal 8.6-10.3 [facility] Comment on above: Order Comment: No: D o not add to previous draw Performed By: #### 1 0070, 79205, 56252 #### [facility] [address] [place] [address], [facility] Chloride [Moles/Vol] 99 mmol/L Normal 98-107 [facility] Comment on above: Order Comment: No: D o not add to previous draw Performed By: #### 1 0, 68713, 56020 #### [facility] [address] [place] [address], [facility] CO2 [Moles/Vol] 32 mmol/L High 21-31 [facility] Comment on above: Order Comment: No: D o not add to previous draw Performed By: #### 1 0, 71576, 50460 #### [facility] [address] [place] [address], [facility] Creatinine [Mass/Vol] 0.84 mg/dL Normal 0.60-1.20 [facility] Comment on above: Order Comment: No: D o not add to previous draw Performed By: #### 1 0070, 93134, 79333 #### [facility] [address] [place] [address], [facility] GFR/1.73 sq M.predicted among blacks MDRD (S/P/Bld) [Vol rate/Area] mL/min/{1.73_m2} Normal >60 [facility] Comment on above: Order Comment: No: D o not add to previous draw Performed By: #### 1 0, 87350, 15291 #### [facility] [address] [place] [address], [facility] GFR/1.73 sq M.predicted among non-blacks MDRD (S/P/Bld) [Vol rate/Area] mL/min/{1.73_m2} Normal >60 [facility] Comment on above: Order Comment: No: D o not add to previous draw Performed By: #### 1 0, 10545, 05298 #### [facility] [address] [place] [address], [facility] Glucose [Mass/Vol] 117 mg/dL High 70-100 [facility] Comment on above: Order Comment: No: D o not add to previous draw Performed By: #### 1 69, , 54114 #### [facility] [address] [place] [address], [facility] Potassium [Moles/Vol] 3.9 mmol/L Normal 3.5-5.1 [facility] Comment on above: Order Comment: No: D o not add to previous draw Performed By: #### 1 69, 11376, 29363 #### [facility] [address] [facility] [address] [place] [address], [facility] Sodium [Moles/Vol] 139 mmol/L Normal 136-145 [facility] Comment on above: Order Comment: No: D o not add to previous draw Performed By: #### 1 69, 52715, 87581 #### [facility] [address] [place] [address], [place] Urea nitrogen [Mass/Vol] 19 mg/dL Normal 7-25 [facility] Comment on above: Order Comment: No: D o not add to previous draw Performed By: #### 1 69, 83978, 89320 #### [facility] [address] [place] [address], [place] BNP (B-TYPE NATRIURETIC PEPT MARILYN)on 04-10-2021 Natriuretic peptide B (Bld) [Mass/Vol] 259 pg/mL High 0-100 [facility] Comment on above: Order Comment: No: D o not add to previous draw Result Comment: Give n the appropriate clinical setting a BNP result of >100 pg/mL indicates congestive heart failure. Performed By: #### 5 7307, 67237 #### [facility] [address] CBC W/DIFFon 04-10-2021 ABS IMM GRANS 1.1 10*3/uL High 0.0-0.2 [facility] Comment on above: Performed By: #### 5 0103 #### [facility] [address] ABS NEUTROPHILS 9.6 10*3/uL High 1.6-7.6 [facility] Comment on above: Performed By: #### 5 3 #### [facility] [address] ANISO MODERATE Normal [facility] Comment on above: Performed By: #### 5 3 #### [facility] [address] Basophils (Bld) [#/Vol] 0.1 10*3/uL Normal 0.0-0.2 [facility] Comment on above: Performed By: #### 5 3 #### [facility] [address] Basophils/100 WBC (Bld) 0.7 % Normal 0.0-1.0 [facility] Comment on above: Performed By: #### 5 3 #### [facility] [address] [place] [address], [facility] Eosinophils (Bld) [#/Vol] 0.1 10*3/uL Normal 0.0-0.5 [facility] Comment on above: Performed By: #### 5 3 #### [facility] [address] [place] [address], [facility] Eosinophils/100 WBC (Bld) 0.4 % Normal 0.0-6.0 [facility] Comment on above: Performed By: #### 5 0103 #### [facility] [address] [place] [address], [facility] Erythrocyte distribution width (RBC) [Ratio] 16.5 % High 11.5-15.0 [facility] Comment on above: Performed By: #### 5 0103 #### [facility] [address] [place] [address], [facility] Hematocrit (Bld) [Volume fraction] 31.2 % Low 36.0-45.0 [facility] Comment on above: Performed By: #### 5 0103 #### [facility] [address] [place] [address], [facility] Hemoglobin (Bld) [Mass/Vol] 9.0 g/dL Low 12.0-15.0 [facility] Comment on above: Performed By: #### 5 0103 #### [facility] [address] [place] [address], [facility] HYPO SLIGHT Normal [facility] Comment on above: Performed By: #### 5 0103 #### [facility] [address] [place] [address], [facility] IMMATURE GRANS 6.8 % High 0.0-1.0 [facility] Comment on above: Performed By: #### 5 0103 #### [facility] [address] [place] [address], [facility] Lymphocytes (Bld) [#/Vol] 4.4 10*3/uL High 1.2-4.0 [facility] Comment on above: Performed By: #### 5 0103 #### [facility] [address] [place] [address], [facility] Lymphocytes/100 WBC (Bld) 26.4 % Normal 20.0-45.0 [facility] Comment on above: Performed By: #### 5 0103 #### [facility] [address] [place] [address], [facility] MCH (RBC) [Entitic mass] 25.3 pg Low 27.0-33.0 [facility] Comment on above: Performed By: #### 5 0103 #### [facility] [address] [facility] [address] [place] [address], [facility] MCHC (RBC) [Mass/Vol] 28.8 g/dL Low 32.0-35.0 [facility] Comment on above: Performed By: #### 5 0103 #### [facility] [address] [facility] [address] [place] [address], [facility] MCV (RBC) [Entitic vol] 87.6 fL Normal 82.0-98.0 [facility] Comment on above: Performed By: #### 5 0103 #### [facility] [address] [facility] [address] [place] [address], [facility] Monocytes (Bld) [#/Vol] 1.3 10*3/uL High 0.1-1.0 [facility] Comment on above: Performed By: #### 5 0103 #### [facility] [address] [facility] [place] [place] [address], [facility] MONOS 7.6 % Normal 5.0-12.0 [facility] Comment on above: Performed By: #### 5 0103 #### [facility] [address] [place] [address], [facility] Neutrophils/100 WBC (Bld) 58.1 % Normal 40.0-72.0 [facility] Comment on above: Performed By: #### 5 3 #### [facility] [address] [place] [address], [facility] Nucleated RBC/100 WBC (Bld) [Ratio] 1 % High 0-0 [facility] Comment on above: Performed By: #### 5 0103 #### [facility] [address] [place] [address], [facility] PLAT CNT 483 10*3/uL High 150-400 [facility] Comment on above: Performed By: #### 5 0103 #### [facility] [address] [place] [address], [facility] POIK SLIGHT Normal [facility] Comment on above: Performed By: #### 5 0103 #### [facility] [address] [place] [address], [place] POLY SLIGHT Normal [facility] Comment on above: Performed By: #### 5 0103 #### [facility] [address] [place] [address], [facility] RBC (Bld) [#/Vol] 3.56 10*6/uL Low 3.80-5.00 [facility] Comment on above: Performed By: #### 5 0103 #### [facility] [address] [place] [address], [facility] WBC (Bld) [#/Vol] 16.54 10*3/uL High 4.00-10.60 [facility] Comment on above: Performed By: #### 5 0103 #### [facility] [address] [place] [address], [facility] LIPID PROFILEon 04-10-2021 Cholesterol [Mass/Vol] 161 mg/dL Normal 120-200 [facility] Comment on above: Result Comment: CHOL ESTEROL REFERENCE RANGE: 20 YEARS AND OLDER CARDIOVASCULAR RISK Less than 200 mg/dl Low Risk 200 to 239 mg/dl Borderline Risk 240 mg/dl and greater High Risk Performed By: #### 3 1569, 22340, 31701 #### [facility] [address] [place] [address], [facility] Cholesterol in HDL [Mass/Vol] 61 mg/dL Normal 23-92 [facility] Comment on above: Result Comment: Slig ht variation in normal range could be due to gender and/or age. HDL CHOLESTEROL REFERENCE RANGE: 20 years and older Cardiovascular Risk > or =60 mg/dL Desirable 40 TO 59 mg/dL Low Risk <40 mg/dL High Risk Performed By: #### 3 1569, 93957, 22347 #### [facility] [address] [place] [address], [place] Cholesterol in LDL [Mass/Vol] 28 mg/dL Normal 0-130 [facility] Comment on above: Result Comment: LDL IS A CALCULATION LDL IS ONLY VALID IF THE TRIG IS LESS THAN 400. Performed By: #### 3 1569, 48947, 73031 #### [facility] [address] [place] [address], [facility] Cholesterol.total/C holesterol in HDL [Mass ratio] 2.6 {ratio} Normal .0-4.5 [facility] Comment on above: Performed By: #### 3 1569, 38052, 40674 #### [facility] [address] [place] [address], [facility] NON-HDL CHOLESTEROL 100 mg/dL Normal [facility] Comment on above: Performed By: #### 3 1569, 57843, 04956 #### [facility] [address] [place] [address], [place] Triglyceride [Mass/Vol] 362 mg/dL High 40-149 [facility] Comment on above: Result Comment: TRIG LYCERIDE REFERENCE RANGE: 20 YEARS AND OLDER CARDIOVASCULAR RISK LESS THAN 150 mg/dl LOW RISK 150 TO 199 mg/dl BORDERLINE RISK 200 mg/dl AND GREATER HIGH RISK Performed By: #### 3 1569, 66053, 92310 #### [facility] [address] [place] [address], [place] VLDL CHOL 72 mg/dL High 0-40 [facility] Comment on above: Performed By: #### 3 1569, 49674, 13051 #### [facility] [address] [place] [address], [facility] MAGNESIUM BLOODon 04-10-2021 Magnesium [Mass/Vol] 2.4 mg/dL Normal 1.9-2.7 [facility] Comment on above: Order Comment: No: D o not add to previous draw Performed By: #### 1 0070, 34150, 81539 #### [facility] [address] [place] [address], [facility] POC GLUCOSE LABon 04-10-2021 Glucose [Mass/Vol] 350 mg/dL High 70-100 [facility] Comment on above: Performed By: #### 5 7307, 62905 #### [facility] [address] [place] [address], [facility] Glucose [Mass/Vol] 249 mg/dL High 70-100 [facility] Comment on above: Performed By: #### 5 7307, 45844 #### [facility] [address] [facility] [place] [address], [facility] PROCALCITONINon 04-10-2021 PROCALCITONIN 0.09 ng/mL Normal 0.00-0.10 [facility] Comment on above: Order Comment: No: D [...] initial PCT<0.5ng/mL Performed By: #### 5 7307, 96025 #### [facility] [address] PROTHROMBIN TIMEon 1 INR Coag (PPP) [Relative time] 1.07 {INR} Normal 0.91-1.16 [facility] Comment on above: Order Comment: No: D [...] CHEST 1995;[id number]. Performed By: #### 5 7307, 28243 #### [facility] [address] PT Coag (PPP) [Time] 13.9 s Normal 12.3-14.8 [facility] Comment on above: Order Comment: No: D o not add to previous draw Result Comment: ALL RESULTS MUST BE INTERPRETED WITH RESPECT TO BLOOD DRAWING ARTIFACT OR DILUTION ERROR OF ANTICOAGULANT AT THE TIME OF SAMPLING. Performed By: #### 5 7307, 83300 #### [facility] [address] [facility]. [address] TROPONIN-Ion 04-10-2021 Troponin I.cardiac [Mass/Vol] 0.07 ng/mL High 0.00-0.04 [facility] Comment on above: Order Comment: No: D o not add to previous draw Result Comment: REFE RENCE RANGES: 0.00 - 0.04 ng/ml NORMAL 0.05 - 0.50 ng/ml INDETERMINATE > 0.50 ng/ml CONSISTENT WITH AN M.I. Performed By: #### 3 1569, 55723, 20973 #### [facility] [address] Troponin I.cardiac [Mass/Vol] 0.07 ng/mL High 0.00-0.04 [facility] Comment on above: Order Comment: No: D o not add to previous draw Result Comment: REFE RENCE RANGES: 0.00 - 0.04 ng/ml NORMAL 0.05 - 0.50 ng/ml INDETERMINATE > 0.50 ng/ml CONSISTENT WITH AN M.I. Performed By: #### 1 0070, 91337, 50665 #### [facility] [address] [place] [address], [facility] TSH3 WITH REFLEX FT4on 04-10 TSH 3RD GENERATION 0.95 uIU/mL Normal 0.34-5.60 [facility] Comment on above: Order Comment: Yes: Add to Previous draw if able Performed By: #### 3 1569 #### [facility] [address] [place] [address], [facility] TSH 3RD GENERATION 3.12 uIU/mL Normal 0.34-5.60 [facility] Comment on above: Performed By: #### 3 1569, 89693, 33081 #### [facility] [address] [facility]. [address] UFH HEPARIN ASSAYon 04-10-20 21 UNFRACTIONATED HEPARIN >1.00 Critically high 0.30-0.70 [facility] Comment on above: Result Comment: Resu lt checked and called. Accurately read back by Haven Avila RN at 1122 per RN patient may have previously been given Eliquis. UFH = 1.36 for pharmacy use Rivaroxaban and Apixaban will interfere with the anti Xa assay used to monitor UFH and LMWH. Performed By: #### 5 7307, 72842 #### [facility] [address] [facility] Cardiovascular Lab Reporton 01-30-2021 Cardiovascular Lab Report [facility] Patient Name: Antonio Diana [facility] S MR #: [id number] Department of Physician: London Ross M.D. Division of Service Date: 01/30/2021 Cardiology Birthdate: 1970 Adult Cardiovascular Room #: [facility] [address] [facility]. [place] [address] Cardiovascular Laboratory Report FINAL IMPRESSIONS: 1. Moderately [...] 5. Follow up with Cardiology in the [facility] Cardiology office in the next 2 [...] right internal jugular vein was obtained. A 6-Kosovan glide sheath was inserted without difficulty. A [...] P/Cassy Bear M.D. Date Trans: 01/30/2021 02:48 P/marixa [id number] cc: Phillip Ann M.D. [address], [facility] [address] [facility] Vital Signs Date Time Vital Sign Value Performing Clinician Iman stafford 09-15-2022 15:24-0500 Blood Pressure Location Juan Miguel SALINAS [facility] 09-15-2022 15:24-0500 Diastolic blood pressure 78 mm[Hg] Juan Miguel SALINAS [facility] 09-15-2022 15:24-0500 Heart rate 70 /min Juan Miguel SALINAS [facility] 09-15-2022 15:24-0500 Respiratory rate 16 /min Juan Miguel BRAD [facility] 09-15-2022 15:24-0500 Systolic blood pressure 116 mm[Hg] Juan Miguel BRAD [facility] Encounters Encounter Date Encounter Type Care Provider Facility Start: 10-26-2023 End: 10-26-2023 ambulatory JENNA [facility] Start: 05-05-2023 End: 05-05-2023 ambulatory [facility] Start: 01-27-2023 End: 01-27-2023 ambulatory [facility] Start: 11-17-2022 End: 11-17-2022 ambulatory EMILY ZHONG . Facility:[facility] Start: 10-28-2022 End: 10-28-[address] PHILLIP ANN . Facility:[facility] Start: 09-24-2022 End: 09-24-[address] PHILLIP ANN . Facility:[facility] Start: 09-15-2022 End: 09-16-2022 ambulatory Juan Miguel SALINAS Facility: [facility] Start: 09-15-2022 End: 09-15-2022 Patient encounter procedure Juan Miguel SALINAS [facility] Start: 09-09-2022 End: 09-10-[address] PHILLIP ANN . Facility:[facility] Start: 08-25-2022 ambulatory Juan Miguel SALINAS Facility : [facility] Start: 08-20-2022 End: 08-21-[address] PHILLIP ANN . Facility:[facility] Start: 08-11-2022 End: 08-12-[address] PHILLIP ANN . Facility:[facility] Start: 08-09-2022 End: 08-09-2022 ambulatory FABRICIO STARK . Facility:[facility] Start: 08-06-2022 End: 08-07-[address] PHILLIP ANN . Facility:[facility] Start: 08-05-2022 End: 08-06-[address] PHILLIP ANN . Facility:[facility] Start: 07-16-2022 End: 07-16-[address] PHILLIP ANN . Facility: Start: 05-11-2022 End: 05-11-[address] PHILLIP ANN . Facility: Start: 12-02-2021 End: 12-02-[address] PHILLIP ANN . Facility: Start: 04-10-2021 End: 04-11-2021 Evaluation and management of inpatient PHILLIP ANN Facility:[facility] Start: 01-30-2021 End: 01-31-2021 ambulatory ADAMAB Richie BEAR Facility:[facility] Procedures Date Procedure Procedure Detail Performing Clinician Start: 04-11-2021 Yarsanism of Cardi ac Rhythm, Single SAMER Sony TORRES Start: 04-11-2021 ULTRASONOGRAPHY OF H EART WITH AORTA, TRANSESOPHAGEAL ABDELMONIEM MOUSTAFA section Juan Miguel Valerio section Juan Miguel Valerio Endoscopy of nose Juan Miguel MONTEZ Excision of cyst of breast Chiquis bates BRAD History of radiofreq uency ablation operation for arrhythmia Juan Miguel SALINAS Implantation of inse rtable loop recorder Juan Miguel SALINAS Ligation of fallopian tube Chiquis bates BRAD Plan of Treatment Date Care Activity Detail Author Start: 12-02-2022 ambulatory Ambulatory Facility: 1 Immunizations Immunization Date Immunization Notes Care Provider Fa cility 04-18-2022 influenza virus vaccine, unspecified formulation Juan Miguel SALINAS [facility] 10-29-2020 SARS-CoV-2 (COVID-19 ) mRNA-1273 vaccine Juan Miguel NILL [facility] 10-25-2020 SARS-CoV-2 (COVID-19 ) mRNA BNT-162b2 vax Juan Miguel SALINAS [facility] Comment on above: Result Comment: 2022: [id number] 10-24-2020 SARS-CoV-2 (COVID-19 ) mRNA BNT-162b2 gax Juan Miguel NILL [facility] 10-04-2020 SARS-CoV-2 (COVID-19 ) mRNA BNT-162b2 vax Juan Miguel NILL [facility] Comment on above: Result Comment: 2022: [id number] 10-03-2020 SARS-CoV-2 (COVID-19 ) mRNA BNT-162b2 gax Juan Miguel NILL [facility] Payers Date Payer Category Payer Unknown [id number] 1970 Unknown [id number] 2.16.8 [id number] 1970 Unknown [id number] 2.16.8 40.1.237017.3.579.2.647 1970 Unknown [id number] 2.16.8 40.1.177668.3.579.2.727 1970 Unknown [id number] 2.16.8 40.1.193414.3.579.2.727 1970 Unknown [id number] 2.16.84 0.1.715595.3.579.2.593 1970 Unknown [id number] 2.16.84 0.1.021961.3.579.2.593 1970 Unknown [id number] 2.16.84 0.1.740419.3.579.2.593 1970 Unknown [id number] 2.16.84 0.1.001011.3.579.2.593 1968 Unknown [id number] 2.16.84 0.1.130354.3.579.2.593 1968 Unknown [id number] 2.16.84 0.1.894557.3.579.2.593 1970 Unknown [id number] 2.16.84 0.1.363014.3.579.2.593 1968 Unknown [id number] 2.16.84 0.1.848538.3.579.2.593 1968 Unknown [id number] 2.16.84 0.1.244881.3.579.2.593 1968 Unknown [id number] 2.16.84 0.1.324053.3.579.2.593 1968 Unknown [id number] 2.16.84 0.1.589823.3.579.2.593 1970 Unknown [id number] 2.16.84 0.1.060669.3.579.2.593 1970 Unknown [id number] 2.16.84 0.1.021350.3.579.2.593 1961 Unknown [id number] 1961 Unknown [id number] 1961 Unknown [id number] 1961 Unknown [id number] Social History Date Type Detail Facility Start: 09-15-2022 Tobacco smoking status Ex-smoker (fi nding) [facility] Tobacco smoking status Never [facility] Sex Assigned At Female [facility] Medical Equipment Procedure Code Equipment Code Equipment Origin al Text Equipment Identifier Dates lancets, glucome ter, alcohol swabs, testing strips, insulin pen needles, Print Requisition, Supply Start: 08-25-2021 Functional Status Date Assessment Result Facility 09-15-2022 Functional Status N/A [facility] Clinical Notes 04-12-2021 to 10-26-2023 Note Date & Type Note Facility 10-26-2023 Note Patient here for 6 m o follow up atrial flutter, chronic diastolic heart failure, and pericardial effusion. Had routine labs in Aug 2023. Denies chest pain, SOB, palpitations, and LE edema. Review of Systems HENT: Positive for nosebleeds (dryness). Respiratory: Positive for cough. Musculoskeletal: Positive for joint pain, joint swelling and myalgias. Neurological: Positive for headaches and vertigo. All other systems reviewed and are negative. [facility] 10-26-2023 Note Cardiovascular Medic ine [facility] SUBJECTIVE Chief Complaint Patient presents with Atrial Flutter Congestive Heart Failure Diana Alvarez is a 53 y.o. female here for follow-up. HPI PMHx: a.flutter/fib s/p loop implant 07/2021, s/p flutter ablation 08/18/2021, HFpEF, pericardial effusion noted since 2018, HTN, COPD, DM, HLD Hx LILLIANA - cannot tolerate CPAP 10/26/2023 She had gained weight, 25lbs but she does not feel this was related to fluid weight gain. She is trying to lose weight. She lost her sister reently from a massive stroke. She was 56. She has periodic nose bleeds from dryness. She uses Vaseline. Also recommend OTC normal saline nasal spray. Denies CP, worsening dyspnea, orthopnea, PND, LE edema, dizziness/LH, palpitations, syncope. 05/05/23: Loop data review: She has some [...] trended upwards is a since seen in [facility] 04/28/2023 and was diagnosed with vertigo [...] s/p ablation and loop recorder placement 08/18/2021. Patient Active Problem List Diagnosis Atrial flutter (CMS/HCC) Cardiomegaly Chest pain Chronic rhinitis Dyspnea Essential hypertension Palpitations Disorder of pericardium Syncope Tobacco user BMI 35.0-35.9,adult Cervical disc disease Chronic diastolic heart failure (CMS/HCC) Chronic obstructive pulmonary disease (CMS/HCC) Cystic kidney disease Depression Diabetes (CMS/HCC) Diverticulosis Fibrocystic disease of breast Gout History of pericarditis IBS (irritable bowel syndrome) Insomnia Low back pain syndrome Migraines Mild aortic stenosis LILLIANA (obstructive sleep apnea) PAF (paroxysmal atrial fi (more content not included)... [facility] 05-05-2023 Note [place] [facility] Consul t Note Reason for visit: [...] trended upwards is a since seen in [facility] 04/28/2023 and was diagnosed with vertigo 01/27/2023 [...] Take 1 table (more content not included)... [facility] 05-05-2023 Note Patient here for 3 m [...] All other systems reviewed and are negative. [facility] 01-27-2023 Note Patient here for 6 m [...] All other systems reviewed and are negative. [facility] 01-27-2023 Note [place] [facility] Consul t Note Reason for visit: [...] Prior to Visit Medication Sig Dispense Refill mzezvdiuie-mcfwjllkjtipl-kvko (Fioricet) 50-300-40 mg capsule dicyclomine (Bentyl) 20 [...] 0.5 mg(2 mg/1. (more content not included)... [facility] 11-17-2022 Note PROCEDURE: XR CHEST 1 V [...] by: AUDREY BO Date: 2022-11-17 12:14 [facility] 09-17-2022 Note Chief Complaint consultation for epigastric pain and nausea HPI Staff 51 year old female presents on consultation from Dr. Ann for intermittent abdominal pain. Presented to [facility] 08/09 with complaint of epigastric pain [...] section, section, Excisi (more content not included)... [facility] Comment on above: Result Comment: Elec tronically Signed By: BRAD DIAZ, Juan Miguel Rivera\Date and Time Signed: 09/17/22 11:55 EST 04-12-2021 Note MR#: [id number] I [facility] Pt. Name: Diana Alvarez Admitted: 04/10/2021 Discharged: 04/11/2021 Date of : 1970 Physician: Orlin Wick MD DISCHARGE SUMMARY PRIMARY DIAGNOSIS: New-onset atrial flutter with RVR. SECONDARY DIAGNOSES: 1. Pulmonary hypertension. 2. COPD. 3. Diabetes. HISTORY OF PRESENT ILLNESS: This patient is a 50-year-old female with past medical history of COPD, hypertension, and diabetes, who was sent from [facility] due to atrial flutter with RVR due to COPD exacerbation. The patient was initially treated with IV Cardizem, however, it was changed to p.o. prior to transfer. The patient was also given loading dose digoxin. The patient was transferred to [facility] for cardioversion. HOSPITAL COURSE: 1. [...] Wick MD Date Trans: 04/12/2021 03:25 P/marixa [id number] cc: Phillip Ann M.D. [address] [facility] [address] [facility] Evaluation + Plan note No data available for this section [facility] Discharge instructions No data available for this section [facility] Progress note No data available for this section [facility] Summary Purpose Family History No Family History Records FoundNo Family History Records FoundNo Family History Records FoundNo Family History Records FoundNo Family History Records Found Advance Directives No Advanced Directives Records FoundNo Advanced Directives Records FoundNo Advanced Directives Records FoundNo Advanced Directives Records FoundNo Advanced Directives Records Found Additional Source Comments INFORMATION SOURCE (unrecogn ized section and content) DATE CREATED AUTHOR 09/10/2021 [facility] DATE CREATED AUTHOR AUTHOR'S ORGANIZ ATION 12/24/2021 [facility] DATE CREATED AUTHOR AUTHOR'S ORGANIZ ATION 10/22/2022 [facility] DATE CREATED AUTHOR AUTHOR'S ORGANIZ ATION 11/20/2022 [facility] DATE CREATED AUTHOR AUTHOR'S ORGANIZ ATION 11/12/[address] [facility] Patient Care team informatio n (unrecognized section and content) Personnel Name: Phillip Ann MD Address: Address: [address] [place] [address] FOR RECORDS PERTAINING TO PATIENTS WHO ARE [...] BE BASED ON THE PRIMARY CLINICAL RECORDS. [facility] [employer] [facility]. provides no warranty or guarantee of the accuracy or completeness of information in this document.
--- NOTE | 2023-11-14 00:06 | ED.NECK1 ---
HPI HPI - Neck Pain/Injury General Chief Complaint: Neck Pain/Injury Stated Complaint: neck, pain traveling down shoulder and back Time Seen by Provider: 11/13/23 23:44 Source: patient Mode of arrival: Wheelchair Limitations: no limitations History of Present Illness HPI Narrative: 53-year-old female presents for ongoing neck pain. It is mostly on the left side of her neck and she had x-rays which show degenerative changes. She is in physical therapy and she had been taking [place] at home but only has half a pill left. No new injury. This is an ongoing issue for her for over the past month and she is seeing her PCP. No weakness or numbness in her arm. The pain is moderate and worse in certain positions. Related Data Home Medications ?Medication ?Instructions ?Recorded ?Confirmed albuterol sulfate 90 mcg/actuation 2 puff inhalation Q4H PRN wheezing 04/18/23 10/14/23 aerosol inhaler (Ventolin HFA) apixaban 5 mg tablet (Eliquis) 5 mg PO BID 04/18/23 10/14/23 diltiazem HCl 240 mg 240 mg PO Q24H 04/18/23 10/14/23 capsule,extended release 24 hr ezetimibe 10 mg tablet 10 mg PO DAILY 04/18/23 10/14/23 ferrous sulfate 325 mg (65 mg 325 mg PO BID 04/18/23 10/14/23 iron) tablet furosemide 40 mg tablet 40 mg PO DAILY 04/18/23 10/14/23 isosorbide mononitrate 30 mg 30 mg PO DAILY 04/18/23 10/14/23 tablet,extended release 24 hr metformin 500 mg tablet 500 mg PO DAILY 04/18/23 10/14/23 pantoprazole 40 mg tablet,delayed 40 mg PO DAILY 04/18/23 10/14/23 release potassium chloride 20 mEq 20 meq PO BID 04/18/23 10/14/23 tablet,extended release rosuvastatin 5 mg tablet 5 mg PO DAILY 04/18/23 10/14/23 metoprolol succinate 25 mg 50 mg PO DAILY 04/28/23 10/14/23 tablet,extended release 24 hr Previous Rx's ?Medication ?Instructions ?Recorded acetaminophen 325 mg capsule 650 mg (2 x 325 mg) PO .q8 PRN 04/18/23 (Tylenol) pain #20 caps hydrocodone 5 mg-acetaminophen 325 1 tab PO Q6H PRN pain 5 days #20 11/14/23 mg tablet tabs Allergies Allergy/AdvReac Type Severity Reaction Status Date / Time morphine Allergy Intermediate Verified 11/13/23 23:49 Opioid HPI Opioid Management Most Recent Opioid Data: Last Pain Scale 8 11/13/23 23:51 Review of Systems ROS Narrative A ten point review of systems is negative except as noted above. PFSH PFSH Social History Smoking status: Former smoker Exam Narrative Exam Narrative: Nurses note and vital signs reviewed and patient is not hypoxic. General: The patient appears well and in no apparent distress. Skin: Warm, dry, no pallor noted. There is no rash noted. Head: Normocephalic, atraumatic; neck has no bruise rash or mass Eye: Normal conjunctiva, no drainage Ears, Nose, Mouth, and Throat: oral mucosa is moist. Nares patent. Cardiovascular: Regular Rate and Rhythm Respiratory: Patient is in no distress, no accessory muscle use, lungs are clear to auscultation, no wheezing, rales or rhonchi Back: non-tender GI: Soft and nontender Musculoskeletal: The patient has no evidence of calf tenderness, no pitting edema, symmetrical pulses noted bilaterally Neurological: A&O, normal speech, upper and lower extremity strength intact Psychiatric: Cooperative Constitutional Vital Signs, click to edit/add: Last Vital Signs Temp 98.3 F 11/13/23 23:46 Pulse 81 11/13/23 23:46 Resp 20 11/13/23 23:46 BP 148/81 H 11/13/23 23:46 Pulse Ox 97 11/13/23 23:46 O2 Del Method Room Air 11/13/23 23:46 Course Vital Signs Vital signs: Vital Signs Temperature 98.3 F 11/13/23 23:46 Pulse Rate 81 11/13/23 23:46 Respiratory Rate 20 11/13/23 23:46 Blood Pressure 148/81 H 11/13/23 23:46 Pulse Oximetry 97 11/13/23 23:46 Oxygen Delivery Method Room Air 11/13/23 23:46 Temperature 98.3 F 11/13/23 23:46 Pulse Rate 81 11/13/23 23:46 Respiratory Rate 20 11/13/23 23:46 Blood Pressure 148/81 H 11/13/23 23:46 Pulse Oximetry 97 11/13/23 23:46 Oxygen Delivery Method Room Air 11/13/23 23:46 MDM - Neck Pain/Injury MDM Narrative Medical decision making narrative: She has had workup for this and is in physical therapy. She was given [place] here and prescribed [place]. Follow-up with PCP. Treatment diagnosis and follow-up were discussed with the patient. Differential Diagnosis Differential diagnosis: Likely disc disorder of cervical region, cervical radiculopathy and strain of neck muscle Discharge Plan Discharge Stand Alone Forms: Portal Instructions Chief Complaint: Neck Pain/Injury Clinical Impression: Cervical pain Patient Disposition: Home, Self-Care Time of Disposition Decision: 00:03 Condition: Good Mode of Transportation: Private Vehicle Prescriptions / Home Meds: New hydrocodone-acetaminophen 5-325 mg tablet 1 tab PO Q6H PRN (Reason: pain) 5 Days Qty: 20 0RF No Action albuterol sulfate [Ventolin HFA] 90 mcg/actuation HFA aerosol inhaler 2 puff INHALATION Q4H PRN (Reason: wheezing) Eliquis 5 mg tablet 5 mg PO BID diltiazem HCl 240 mg capsule,extended release 24hr 240 mg PO Q24H ezetimibe 10 mg tablet 10 mg PO DAILY ferrous sulfate 325 mg (65 mg iron) tablet 325 mg PO BID furosemide 40 mg tablet 40 mg PO DAILY isosorbide mononitrate 30 mg tablet extended release 24 hr 30 mg PO DAILY metformin 500 mg tablet 500 mg PO DAILY pantoprazole 40 mg tablet,delayed release (DR/EC) 40 mg PO DAILY potassium chloride 20 mEq tablet extended release 20 meq PO BID rosuvastatin 5 mg tablet 5 mg PO DAILY acetaminophen [Tylenol] 325 mg capsule 650 mg PO .q8 PRN (Reason: pain) Qty: 20 0RF metoprolol succinate 25 mg tablet extended release 24 hr 50 mg PO DAILY Print Language: Nicaraguan Instructions: Acute Neck Pain (ED) Referrals: Xavi Ann MD [Primary Care Provider] - 1 week
[2023-11-14] MEDS: HYDROCODONE/ACET 5-325 MG TABLET 1 TAB PO (00:08)
== END 2023-11-14 00:14 | disposition home or self-care (01) ==
PROVIDERS: Emergency Provider Emergency Medicine; PCP Family Medicine
DX: M54.2 Cervicalgia (principal); Z79.899 Other long term (current) drug therapy; Z79.01 Long term (current) use of anticoagulants; Z79.84 Long term (current) use of oral hypoglycemic drugs; Z87.891 Personal history of nicotine dependence
CPT/HCPCS: 99283

== ENCOUNTER 2023-11-18 22:21 | Emergency (ER) | payer OTHER, SELFPAY ==
[2023-11-18 22:25] VITALS: BP 153/100; PULSE 85; TEMP 36.8; O2SAT 98; BMI 35.7
--- OUTSIDE RECORDS SUMMARY | 2023-11-18 22:32 | XMS_ITS | CCD ---
Author Organization [facility] Care Team Providers Care Programmer Developer Name Role Phone ELTAHAWY, EHAB A Admitting Unavailable ADAM BEARAB A Attending Unavailable PHILLIP ANN Referring Unavailable PHILLIP ANN Primary Care Unavailable PHILLIP ANN Referring Unavailable XIAO TORRES Surgeon Unavailable ORLIN HUI Attending Unavailable CALLI PAIGE Admitting Unavailable [place] Procedure Practitioner Unavailab PHILLIP Muñoz Primary Care Unavailable [place] Procedure Practitioner Unavailab Dunia Light Surgeon Unavailsindhu e Phillip Ann Primary Care Physician [phone] Juan Miguel SALINAS Attending Unavailable Phillip Ann [...] ., DR FISHER Primary Care Unavailable FALTIGIST, HLELEN Consulting Unavailable DIAB ., FABRICIO Admitting Unavailable [...] Morphine; Translations: [morphine] Drug Allergy 9 [facility] (1 source) 72329,00; Translations: [00015,00] Propensity to adverse reactions (disorder) 0 [facility] (1 source) Morphine; Translations: [morphine] Drug Allergy Feeling nervous (finding), Tachycardia (finding) General Surgery Enda (1 source) No Known Medication Allergies; Translations: [No Known Medication Allergies] Propensity to adverse reactions (disorder) [facility] Repository (1 source) dulaglutide; Translations: [DULAGLUTIDE] Drug Allergy 3 [facility] Medications Current Medications Medication Drug Class(es) Dates Sig (Normalized) Sig (Original) [id number] 200 actuat albuterol 0.09 mg/actuat metered dose [...] disease (1 source) Atherosclerotic heart disease of [place] coronary artery without angina pectoris; Translations: [ASHD [place] W/O ANGINA PECTORIS] Onset: 08-11-2022 Chronic [...] Onset: 09-13-2022 Chronic Other aftercare (1 source) intermediate (current) use of anticoagulants; Translations: [VULCAN CREWMEMBER CURRNT USE ANTICOAGULANTS] Onset: 11-19-2022 Episodic Other aftercare (1 source) 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 - Approval # [id number] approved from 11/05/23 - 01/04/24. Normal [facility] 10-26-2023 Follow-up visit [id number] Cyndi Alvarez 1970 F Date Provider Department Center 10/26/2023 JENNA ABREU TISH [facility] Family History Problem Relation Age of Onset Breast cancer Mother Aneurysm Mother Stroke Mother Heart attack Father Coronary artery disease Father Family Status - Relation Status Age at Mother Father Level of Service:97315 [place] OFFICE/OUTPATIENT ESTABLISHED MOD MDM 30 MIN Reason for Visit and Comments: Atrial Flutter [101] Congestive Heart Failure [127] Normal [facility] 05-05-2023 Follow-up visit [id number] Cyndi Alvarez 1970 F Date Provider Department Center 05/05/2023 STACY RODRIGUEZ TISH [facility] Family History Problem Relation Age of Onset Breast cancer Mother Aneurysm Mother Stroke Mother Heart attack Father Coronary artery disease Father Family Status - Relation Status Age at Mother Father Level of Service:51867 [place] OFFICE/OUTPATIENT ESTABLISHED MOD MDM 30-39 MIN Normal [facility] 01-27-2023 Follow-up visit [id number] Cyndi Alvarez 1970 F Date Provider Department Center 01/27/2023 Laxmi-STACY VILLALTA [facility] Family History Problem Relation Age of Onset Breast cancer Mother Aneurysm Mother Stroke Mother Heart attack Father Coronary artery disease Father Family Status - Relation Status Age at Mother Father Level of Service:65404 [place] OFFICE/OUTPATIENT ESTABLISHED MOD MDM 30-39 MIN Normal [facility] CBC AUTO DIFFon 10-28-2022 BASO # 0.0 103/ul Normal 0.0-0.1 [facility] Comment on above: Performed By: #### L IPID, CMP, T4, TSH, FT3 #### [facility] [address] [place] [address] Dr. Mendel Herron Basophils/100 WBC (Bld) 0.2 % Normal 0.2-2.0 [facility] Comment on above: Performed By: #### L IPID, CMP, T4, TSH, FT3 #### [facility] [address] [place] [address] Dr. Mendel Herron EO # 0.0 103/ul Normal 0.0-0.7 [facility] Comment on above: Performed By: #### L IPID, CMP, T4, TSH, FT3 #### [facility] [address] [place] [address] Dr. Mendel Herron Eosinophils/100 WBC (Bld) 0.3 % Critically low 0.9-7.0 [facility] Comment on above: Performed By: #### L IPID, CMP, T4, TSH, FT3 #### [facility] [address] [place] [address] Dr. Mendel Herron Erythrocyte distribution width (RBC) [Ratio] 13.6 % Normal 11.0-15.0 [facility] Comment on above: Performed By: #### L IPID, CMP, T4, TSH, FT3 #### [facility] [address] [place] [address] Dr. Mendel Herron Hematocrit (Bld) [Volume fraction] 40.1 % Normal 36.0-48.0 [facility] Comment on above: Performed By: #### L IPID, CMP, T4, TSH, FT3 #### [facility] [address] [place] [address] Dr. Mendel Herron Hemoglobin (Bld) [Mass/Vol] 13.0 g/dL Normal 12.0-16.0 [facility] Comment on above: Performed By: #### L IPID, CMP, T4, TSH, FT3 #### [facility] [address] [place] [address] Dr. Mendel Herron IG # 0.06 10e3/ul Critically high 0.00-0.03 [facility] Comment on above: Performed By: #### L IPID, CMP, T4, TSH, FT3 #### [facility] [address] [place] [address] Dr. Mendel Herron IG % 0.5 % Normal 0.0-0.5 [facility] Comment on above: Performed By: #### L IPID, CMP, T4, TSH, FT3 #### [facility] [address] [place] [address] Dr. Mendel Herron LYMPH # 2.8 103/ul Normal 1.2-3.8 [facility] Comment on above: Performed By: #### L IPID, CMP, T4, TSH, FT3 #### [facility] [address] [place] [address] Dr. Mendel Herron Lymphocytes/100 WBC (Bld) 22.4 % Normal 20.5-60.0 [facility] Comment on above: Performed By: #### L IPID, CMP, T4, TSH, FT3 #### [facility] [address] [place] [address] Dr. Mendel Herron MANUAL DIFF REQ NO Normal [facility] Comment on above: Performed By: #### L IPID, CMP, T4, TSH, FT3 #### [facility] [address] [place] [address] Dr. Mendel Herron MCH (RBC) [Entitic mass] 30.8 pg Normal 26.7-34.0 [facility] Comment on above: Performed By: #### L IPID, CMP, T4, TSH, FT3 #### [facility] [address] [address] [address] Mendel Herron MCHC (RBC) [Mass/Vol] 32.4 g/dL Normal 29.9-35.2 [facility] Comment on above: Performed By: #### L IPID, CMP, T4, TSH, FT3 #### [facility] [address] [place] [address] Dr. Mendel Herron MCV (RBC) [Entitic vol] 95.0 fL Normal 81.0-99.0 [facility] Comment on above: Performed By: #### L IPID, CMP, T4, TSH, FT3 #### [facility] [address] [place] [address] Dr. Mendel Herron MONO # 0.9 103/ul Critically high 0.3-0.8 [facility] Comment on above: Performed By: #### L IPID, CMP, T4, TSH, FT3 #### [facility] [address] [place] [address] Dr. Mendel Herron Monocytes/100 WBC (Bld) 7.2 % Normal 1.7-12.0 [facility] Comment on above: Performed By: #### L IPID, CMP, T4, TSH, FT3 #### [facility] [address] [place] [address] Dr. Mendel Herron NEUT # 8.6 103/ul Critically high 1.4-6.5 [facility] Comment on above: Performed By: #### L IPID, CMP, T4, TSH, FT3 #### [facility] [address] [place] [address] Dr. Mendel Herron Neutrophils/100 WBC (Bld) 69.4 % Normal 43.0-75.0 [facility] Comment on above: Performed By: #### L IPID, CMP, T4, TSH, FT3 #### [facility] [address] [place] [address] Dr. Mendel Herron Platelet mean volume (Bld) [Entitic vol] 9.9 fL Normal 9.5-13.5 [facility] Comment on above: Performed By: #### L IPID, CMP, T4, TSH, FT3 #### [facility] [address] [address] [address] Mendel Herron PLT 297 103/ul Normal 150-450 [facility] Comment on above: Performed By: #### L IPID, CMP, T4, TSH, FT3 #### [facility] [address] [address] [address] Mendel Herron RBC 4.22 106/ul Normal 4.20-5.40 [facility] Comment on above: Performed By: #### L IPID, CMP, T4, TSH, FT3 #### [facility] [address] [place] [address] Dr. Mendel Herron WBC 12.4 103/ul Critically high 4.0-11.0 [facility] Comment on above: Performed By: #### L IPID, CMP, T4, TSH, FT3 #### [facility] [address] [place] [address] Dr. Mendel Herron CRPon 10-28-2022 CRP 1.3 mg/dL Critically high <=1.0 [facility] Comment on above: Performed By: #### L IPID, CMP, T4, TSH, FT3 #### [facility] [address] [place] [address] Dr. Mendel Herron PROF CHEM 8 (BAS METB)on Anion gap [Moles/Vol] 13.6 mmol/L Normal [facility] Comment on above: Performed By: #### L IPID, CMP, T4, TSH, FT3 #### [facility] [address] [address] [address] Mendel Herron Calcium [Mass/Vol] 9.3 mg/dL Normal 8.5-10.1 [facility] Comment on above: Performed By: #### L IPID, CMP, T4, TSH, FT3 #### [facility] [address] [place] [address] Dr. Mendel Herron Chloride [Moles/Vol] 102 mmol/L Normal 98-107 [facility] Comment on above: Performed By: #### L IPID, CMP, T4, TSH, FT3 #### [facility] [address] [address] [address] Mendel Herron CO2 [Moles/Vol] 30.7 mmol/L Normal 21.0-32.0 [facility] Comment on above: Performed By: #### L IPID, CMP, T4, TSH, FT3 #### [facility] [address] [address] [address] Mendel Herron Creatinine [Mass/Vol] 0.85 mg/dL Normal 0.55-1.02 [facility] Comment on above: Performed By: #### L IPID, CMP, T4, TSH, FT3 #### [facility] [address] [place] [address] Dr. Mendel Herron EGFR-AF CITIZEN [place] >60 Normal >=60 [facility] Comment on above: Performed By: #### L IPID, CMP, T4, TSH, FT3 #### [facility] [address] [address] [address] Mendel Herron EGFR-NON AF CITIZEN [place] >60 Normal >=60 [facility] Comment on above: Performed By: #### L IPID, CMP, T4, TSH, FT3 #### [facility] [address] [address] [address] Mendel Herron Glucose [Mass/Vol] 101 mg/dL Normal 74-106 [facility] Comment on above: Performed By: #### L IPID, CMP, T4, TSH, FT3 #### [facility] [address] [address] [address] Mendel Herron Potassium [Moles/Vol] 3.3 mmol/L Critically low 3.5-5.1 [facility] Comment on above: Performed By: #### L IPID, CMP, T4, TSH, FT3 #### [facility] [address] [address] [address] Mendel Herron Sodium [Moles/Vol] 143 mmol/L Normal 136-145 [facility] Comment on above: Performed By: #### L IPID, CMP, T4, TSH, FT3 #### [facility] [address] [address] [address] Mendel Herron Urea nitrogen [Mass/Vol] 12.0 mg/dL Normal 7.0-18.0 [facility] Comment on above: Performed By: #### L IPID, CMP, T4, TSH, FT3 #### [facility] [address] [address] [address] Mendel Herron Urea nitrogen/Creatinine [Mass ratio] 14.1 mg/mg Normal [facility] Comment on above: Performed By: #### L IPID, CMP, T4, TSH, FT3 #### [facility] [address] [address] [address] Mendel Herron URIC ACID SERUMon 10-28-2022 Urate [Mass/Vol] 7.8 mg/dL Critically high 2.6-6.0 [facility] Comment on above: Performed By: #### L IPID, CMP, T4, TSH, FT3 #### [facility] [address] [address] [address] 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 Mendel Herron Consent for Procedure/Surger yon 09-17-2022 Consent for Procedure/Surgery [id number]: 127 Normal [facility] Facesheeton 09-17-2022 Facesheet [id number]: 127 Normal [facility] Pre-Certification Formon Pre-Certification Form [id number]: 127 Normal [facility] Ambulatory Visit Summaryon 0 09-15-2022 [...] Pulmonary HTN Pure hypercholesterolemia RUQ pain Normal [facility] ED Note-Physicianon 09-14-19 ED Note-Physician [id number]: 127 Normal [facility] RAD - MISCon 09-14-2022 RAD - MISC [id number]: 127 Normal [facility] RAD - Ultrasound Reporton RAD - Ultrasound Report [id number]: 127 Normal [facility] CBC AUTO DIFFon 02-22-2023 BASO # 0.1 103/ul Normal 0.0-0.1 [facility] Comment on above: Performed By: #### L IPID, CMP, T4, TSH, FT3 #### [facility] [address] [place] [address] Dr. Mendel Herron Basophils/100 WBC (Bld) 0.7 % Normal 0.2-2.0 [facility] Comment on above: Performed By: #### L IPID, CMP, T4, TSH, FT3 #### [facility] [address] [place] [address] Dr. Mendel Herron EO # 0.1 103/ul Normal 0.0-0.7 [facility] Comment on above: Performed By: #### L IPID, CMP, T4, TSH, FT3 #### [facility] [address] [place] [address] Dr. Mendel Herron Eosinophils/100 WBC (Bld) 0.7 % Critically low 0.9-7.0 [facility] Comment on above: Performed By: #### L IPID, CMP, T4, TSH, FT3 #### [facility] [address] [place] [address] Dr. Mendel Herron Erythrocyte distribution width (RBC) [Ratio] 13.1 % Normal 11.0-15.0 [facility] Comment on above: Performed By: #### L IPID, CMP, T4, TSH, FT3 #### [facility] [address] [place] [address] Dr. Mendel Herron Hematocrit (Bld) [Volume fraction] 43.7 % Normal 36.0-48.0 [facility] Comment on above: Performed By: #### L IPID, CMP, T4, TSH, FT3 #### [facility] [address] [place] [address] Dr. Mendel Herron Hemoglobin (Bld) [Mass/Vol] 14.4 g/dL Normal 12.0-16.0 [facility] Comment on above: Performed By: #### L IPID, CMP, T4, TSH, FT3 #### [facility] [address] [place] [address] Dr. Mendel Herron IG # 0.11 10e3/ul Critically high 0.00-0.03 [facility] Comment on above: Performed By: #### L IPID, CMP, T4, TSH, FT3 #### [facility] [address] [place] [address] Dr. Mendel Herron IG % 1.3 % Critically high 0.0-0.5 [facility] Comment on above: Performed By: #### L IPID, CMP, T4, TSH, FT3 #### [facility] [address] [place] [address] Dr. eMndel Herron LYMPH # 2.4 103/ul Normal 1.2-3.8 [facility] Comment on above: Performed By: #### L IPID, CMP, T4, TSH, FT3 #### [facility] [address] [place] [address] Dr. Mendel Herron Lymphocytes/100 WBC (Bld) 27.9 % Normal 20.5-60.0 [facility] Comment on above: Performed By: #### L IPID, CMP, T4, TSH, FT3 #### [facility] [address] [place] [address] Dr. Mendel Herron MANUAL DIFF REQ NO Normal [facility] Comment on above: Performed By: #### L IPID, CMP, T4, TSH, FT3 #### [facility] [address] [place] [address] Dr. Mendel Herron MCH (RBC) [Entitic mass] 31.0 pg Normal 26.7-34.0 [facility] Comment on above: Performed By: #### L IPID, CMP, T4, TSH, FT3 #### [facility] [address] [place] [address] Dr. Mendel Herron MCHC (RBC) [Mass/Vol] 33.0 g/dL Normal 29.9-35.2 [facility] Comment on above: Performed By: #### L IPID, CMP, T4, TSH, FT3 #### [facility] [address] [place] [address] Dr. Mendel Herron MCV (RBC) [Entitic vol] 94.0 fL Normal 81.0-99.0 [facility] Comment on above: Performed By: #### L IPID, CMP, T4, TSH, FT3 #### [facility] [address] [place] [address] Dr. Mendel Herron MONO # 0.5 103/ul Normal 0.3-0.8 [facility] Comment on above: Performed By: #### L IPID, CMP, T4, TSH, FT3 #### [facility] [address] [place] [address] Dr. Mendel Herron Monocytes/100 WBC (Bld) 6.0 % Normal 1.7-12.0 [facility] Comment on above: Performed By: #### L IPID, CMP, T4, TSH, FT3 #### [facility] [address] [place] [address] Dr. Mendel Herron NEUT # 5.4 103/ul Normal 1.4-6.5 [facility] Comment on above: Performed By: #### L IPID, CMP, T4, TSH, FT3 #### [facility] [address] [place] [address] Dr. Mendel Herron Neutrophils/100 WBC (Bld) 63.4 % Normal 43.0-75.0 [facility] Comment on above: Performed By: #### L IPID, CMP, T4, TSH, FT3 #### [facility] [address] [place] [address] Dr. Mendel Herron Platelet mean volume (Bld) [Entitic vol] 9.8 fL Normal 9.5-13.5 [facility] Comment on above: Performed By: #### L IPID, CMP, T4, TSH, FT3 #### [facility] [address] [place] [address] Dr. Mendel Herron PLT 398 103/ul Normal 150-450 [facility] Comment on above: Performed By: #### L IPID, CMP, T4, TSH, FT3 #### [facility] [address] [place] [address] Dr. Mendel Herron RBC 4.65 106/ul Normal 4.20-5.40 [facility] Comment on above: Performed By: #### L IPID, CMP, T4, TSH, FT3 #### [facility] [address] [address] [address] Mendel Herron WBC 8.6 103/ul Normal 4.0-11.0 [facility] Comment on above: Performed By: #### L IPID, CMP, T4, TSH, FT3 #### [facility] [address] [address] [address] Mendel Herron FREE T3on 09-09-2022 FREE T3 2.59 pg/mlL Normal 2.18-3.98 [facility] Comment on above: Performed By: #### L IPID, CMP, T4, TSH, FT3 #### [facility] [address] [place] [address] Dr. Mendel Herron GLYCOHEMOGLOBIN A1Con 2022 ADA RECOMMENDATION SEE BELOW Normal [facility] Comment on above: Result Comment: ADA RECOMMENDED LIMIT 4.0 - 6.0 ADA THERAPEUTIC TARGET < 7.0 ACTION SUGGESTED > 7.0 Performed By: #### A 1C #### [facility] [address] [place] [address] Dr. Mendel Herron Glucose [Mass/Vol] 120 mg/dL Normal [facility] Comment on above: Performed By: #### A 1C #### [facility] [address] [place] [address] Dr. Mendel Herron HbA1c (Bld) [Mass fraction] 5.8 % Normal 4.5-6.2 [facility] Comment on above: Performed By: #### A 1C #### [facility] [address] [place] [address] Dr. Mendel Herron LIPID PROFILEon 09-09-2022 CHOL-HDL RATIO NORM SEE BELOW Normal [facility] Comment on above: Result Comment: 3.3 - 4.4 LOW RISK 4.4 - 7.1 AVERAGE RISK 7.1 - 11.0 MODERATE RISK >11.0 HIGH RISK Performed By: #### L IPID, CMP, T4, TSH, FT3 #### [facility] [address] [address] [address] Mendel Herron Cholesterol [Mass/Vol] 308 mg/dL Critically high <=200 [facility] Comment on above: Performed By: #### L IPID, CMP, T4, TSH, FT3 #### [facility] [address] [address] [address] Mendel Herron Cholesterol in HDL [Mass/Vol] 46 mg/dL Normal 40-60 [facility] Comment on above: Performed By: #### L IPID, CMP, T4, TSH, FT3 #### [facility] [address] [address] [address] Mendel Herron Cholesterol in LDL [Mass/Vol] 212.6 mg/dL Normal [facility] Comment on above: Performed By: #### L IPID, CMP, T4, TSH, FT3 #### [facility] [address] [address] [address] Mendel Herron Cholesterol.total/C holesterol in HDL [Mass ratio] 6.7 {ratio} Normal [facility] Comment on above: Performed By: #### L IPID, CMP, T4, TSH, FT3 #### [facility] [address] [address] [address] Mendel Herron HDL NORMAL > or = 60 mg/dl - LO W CARDIOVASCULAR RISK <40 mg/dl - HIGH CARDIOVASCULAR RISK Normal [facility] Comment on above: Performed By: #### L IPID, CMP, T4, TSH, FT3 #### [facility] [address] [address] [address] Mendel Herron LDL CALC NORMAL SEE BELOW Normal [facility] Comment on above: Result Comment: <100 mg/dl OPTIMAL 100 - 129 mg/dl NEAR OR ABOVE OPTIMAL 130 - 159 mg/dl BORDERLINE HIGH 160 - 189 mg/dl HIGH >190 mg/dl VERY HIGH Performed By: #### L IPID, CMP, T4, TSH, FT3 #### [facility] [address] [address] [address] Mendel Herron Triglyceride [Mass/Vol] 247 mg/dL Critically high <=150 [facility] Comment on above: Performed By: #### L IPID, CMP, T4, TSH, FT3 #### [facility] [address] [address] [address] Mendel Herron VLDL CALC 49.4 mg/dL Normal [facility] Comment on above: Performed By: #### L IPID, CMP, T4, TSH, FT3 #### [facility] [address] [address] [address] Mendel Herron PROF 14(COMP METB)on 023 Albumin [Mass/Vol] 4.0 g/dL Normal 3.4-5.0 [facility] Comment on above: Performed By: #### L IPID, CMP, T4, TSH, FT3 #### [facility] [address] [place] [address] Dr. Mendel Herron Albumin/Globulin [Mass ratio] 0.9 {ratio} Normal [facility] Comment on above: Performed By: #### L IPID, CMP, T4, TSH, FT3 #### [facility] [address] [place] [address] Dr. Mendel Herron ALP [Catalytic activity/Vol] 115 U/L Normal 46-116 [facility] Comment on above: Performed By: #### L IPID, CMP, T4, TSH, FT3 #### [facility] [address] [address] [address] Mendel Herron ALT [Catalytic activity/Vol] 30 U/L Normal 14-59 [facility] Comment on above: Performed By: #### L IPID, CMP, T4, TSH, FT3 #### [facility] [address] [address] [address] Mendel Herron Anion gap [Moles/Vol] 12.7 mmol/L Normal [facility] Comment on above: Performed By: #### L IPID, CMP, T4, TSH, FT3 #### [facility] [address] [address] [address] Mendel Herron AST [Catalytic activity/Vol] 18 U/L Normal 15-37 [facility] Comment on above: Performed By: #### L IPID, CMP, T4, TSH, FT3 #### [facility] [address] [address] [address] Mendel Herron Bilirubin [Mass/Vol] 0.7 mg/dL Normal 0.2-1.0 [facility] Comment on above: Performed By: #### L IPID, CMP, T4, TSH, FT3 #### [facility] [address] [address] [address] Mendel Herron Calcium [Mass/Vol] 9.7 mg/dL Normal 8.5-10.1 [facility] Comment on above: Performed By: #### L IPID, CMP, T4, TSH, FT3 #### [facility] [address] [place] [address] Dr. Mendel Herron Chloride [Moles/Vol] 103 mmol/L Normal 98-107 [facility] Comment on above: Performed By: #### L IPID, CMP, T4, TSH, FT3 #### [facility] [address] [address] [address] Mendel Herron CO2 [Moles/Vol] 26.5 mmol/L Normal 21.0-32.0 [facility] Comment on above: Performed By: #### L IPID, CMP, T4, TSH, FT3 #### [facility] [address] [place] [address] Dr. Mendel Herron Creatinine [Mass/Vol] 0.83 mg/dL Normal 0.55-1.02 [facility] Comment on above: Performed By: #### L IPID, CMP, T4, TSH, FT3 #### [facility] [address] [place] [address] Dr. Mendel Herron EGFR-AF CITIZ[place] >60 Normal >=60 [facility] Comment on above: Performed By: #### L IPID, CMP, T4, TSH, FT3 #### [facility] [address] [place] [address] Dr. Mendel Herron EGFR-NON AF CITIZEN OF [place] >60 Normal >=60 [facility] Comment on above: Performed By: #### L IPID, CMP, T4, TSH, FT3 #### [facility] [address] [place] [address] Dr. Mendel Herron Globulin (S) [Mass/Vol] 4.4 g/dL Normal [facility] Comment on above: Performed By: #### L IPID, CMP, T4, TSH, FT3 #### [facility] [address] [place] [address] Dr. Mendel Herron Glucose [Mass/Vol] 97 mg/dL Normal 74-106 [facility] Comment on above: Performed By: #### L IPID, CMP, T4, TSH, FT3 #### [facility] [address] [place] [address] Dr. Mendel Herron Potassium [Moles/Vol] 4.2 mmol/L Normal 3.5-5.1 [facility] Comment on above: Performed By: #### L IPID, CMP, T4, TSH, FT3 #### [facility] [address] [place] [address] Dr. Mendel Herron Protein [Mass/Vol] 8.4 g/dL Critically high 6.4-8.2 [facility] Comment on above: Performed By: #### L IPID, CMP, T4, TSH, FT3 #### [facility] [address] [place] [address] Dr. Mendel Herron Sodium [Moles/Vol] 138 mmol/L Normal 136-145 [facility] Comment on above: Performed By: #### L IPID, CMP, T4, TSH, FT3 #### [facility] [address] [place] [address] Dr. Mendel Herron Urea nitrogen [Mass/Vol] 12.0 mg/dL Normal 7.0-18.0 [facility] Comment on above: Performed By: #### L IPID, CMP, T4, TSH, FT3 #### [facility] [address] [place] [address] Dr. Mendel Herron Urea nitrogen/Creatinine [Mass ratio] 14.5 mg/mg Normal [facility] Comment on above: Performed By: #### L IPID, CMP, T4, TSH, FT3 #### [facility] [address] [place] [address] Dr. Mendel Herron T4on 09-09-2022 T4 [Mass/Vol] 8.80 ug/dL Normal 4.80-13.90 [facility] Comment on above: Performed By: #### L IPID, CMP, T4, TSH, FT3 #### [facility] [address] [address] [address] Mendel Herron TSHon 09-09-2022 TSH 0.898 uIU/mL Normal 0.358-3.740 [facility] Comment on above: Performed By: #### L IPID, CMP, T4, TSH, FT3 #### [facility] [address] [place] [address] Dr. Mendel Herron VITAMIN D 25 OHon 09-09-2022 VIT D 25-OH 24.0 ng/mL Normal [facility] Comment on above: Performed By: #### L IPID, CMP, T4, TSH, FT3 #### [facility] [address] [place] [address] Dr. Mendel Herron VIT D RANGES SEE BELOW Normal [facility] Comment on above: Result Comment: <20 ng/mL Vit D deficient 20 - <30 ng/mL Vit D insufficient 30 - 100 ng/mL Vit D sufficient >100 ng/mL Potential Toxicity Performed By: #### L IPID, CMP, T4, TSH, FT3 #### [facility] [address] [place] [address] Dr. Mendel Herron Physician Referralon 023 Physician Referral [phone] [id number] [id number]: 127 Normal [facility] NM HEPATOBILIARY SCAN W EFon [...] VIVI GARY Date: 2022-08-20 16:07 Normal [facility] US SINGLE QUAD RT UPPERon US SINGLE [...] by: JEAN LOPES Date: 2022-08-11 15:50 Normal [facility] CARDIAC SUBHA ADMITon 023 CK [Catalytic activity/Vol] 30 U/L Normal 26-192 [facility] Comment on above: Performed By: #### L IPID, CMP, T4, TSH, FT3 #### [facility] [address] [place] [address] Dr. Mendel Herron CK.MB [Mass/Vol] 1.02 ng/mL Normal <=3.60 [facility] Comment on above: Performed By: #### L IPID, CMP, T4, TSH, FT3 #### [facility] [address] [place] [address] Dr. Mendel Herron HSTROP 32.8 pg/mL Normal 4.0-51.3 [facility] Comment on above: Result Comment: CUT- OFF POINTS HAVE BEEN ESTABLISHED BASED ON THE FOURTH UNIVERSAL DEFINITIONS OF MYOCARDIAL INFARCTION. THE UPPER REFERENCE LIMIT (URL) OF TROPONIN, DEFINED THE 99TH PERCENTILE OF cTnI DISTRIBUTION IN A REFERENCE POPULATION, HAS BEEN CONFIRMED THE DECISION THRESHOLD FOR IA DIAGNOSIS. Performed By: #### L IPID, CMP, T4, TSH, FT3 #### [facility] [address] [place] [address] Dr. Mendel Herron SONYA 23 ng/mL Normal 9-82 [facility] Comment on above: Performed By: #### L IPID, CMP, T4, TSH, FT3 #### [facility] [address] [place] [address] Dr. Mendel Herron CBC AUTO DIFFon 08-09-2022 BASO # 0.0 103/ul Normal 0.0-0.1 [facility] Comment on above: Performed By: #### L IPID, CMP, T4, TSH, FT3 #### [facility] [address] [place] [address] Dr. Mendel Herron Basophils/100 WBC (Bld) 0.3 % Normal 0.2-2.0 [facility] Comment on above: Performed By: #### L IPID, CMP, T4, TSH, FT3 #### [facility] [address] [place] [address] Dr. Mendel Herron EO # 0.0 103/ul Normal 0.0-0.7 [facility] Comment on above: Performed By: #### L IPID, CMP, T4, TSH, FT3 #### [facility] [address] [place] [address] Dr. Mendel Herron Eosinophils/100 WBC (Bld) 0.3 % Critically low 0.9-7.0 [facility] Comment on above: Performed By: #### L IPID, CMP, T4, TSH, FT3 #### [facility] [address] [place] [address] Dr. Mendel Herron Erythrocyte distribution width (RBC) [Ratio] 13.1 % Normal 11.0-15.0 [facility] Comment on above: Performed By: #### L IPID, CMP, T4, TSH, FT3 #### [facility] [address] [place] [address] Dr. Mendel Herron Hematocrit (Bld) [Volume fraction] 42.7 % Normal 36.0-48.0 [facility] Comment on above: Performed By: #### L IPID, CMP, T4, TSH, FT3 #### [facility] [address] [place] [address] Dr. Mendel Herron Hemoglobin (Bld) [Mass/Vol] 15.4 g/dL Normal 12.0-16.0 [facility] Comment on above: Performed By: #### L IPID, CMP, T4, TSH, FT3 #### [facility] [address] [place] [address] Dr. Mendel Herron IG # 0.05 10e3/ul Critically high 0.00-0.03 [facility] Comment on above: Performed By: #### L IPID, CMP, T4, TSH, FT3 #### [facility] [address] [place] [address] Dr. Mendel Herron IG % 0.4 % Normal 0.0-0.5 [facility] Comment on above: Performed By: #### L IPID, CMP, T4, TSH, FT3 #### [facility] [address] [place] [address] Dr. Mendel Herron LYMPH # 2.5 103/ul Normal 1.2-3.8 [facility] Comment on above: Performed By: #### L IPID, CMP, T4, TSH, FT3 #### [facility] [address] [place] [address] Dr. Mendel Herron Lymphocytes/100 WBC (Bld) 21.2 % Normal 20.5-60.0 [facility] Comment on above: Performed By: #### L IPID, CMP, T4, TSH, FT3 #### [facility] [address] [place] [address] Dr. Mendel Herron MANUAL DIFF REQ NO Normal [facility] Comment on above: Performed By: #### L IPID, CMP, T4, TSH, FT3 #### [facility] [address] [place] [address] Dr. Mendel Herron MCH (RBC) [Entitic mass] 31.7 pg Normal 26.7-34.0 [facility] Comment on above: Performed By: #### L IPID, CMP, T4, TSH, FT3 #### [facility] [address] [place] [address] Dr. Mendel Herron MCHC (RBC) [Mass/Vol] 36.1 g/dL Critically high 29.9-35.2 [facility] Comment on above: Performed By: #### L IPID, CMP, T4, TSH, FT3 #### [facility] [address] [place] [address] Dr. Mendel Herron MCV (RBC) [Entitic vol] 87.9 fL Normal 81.0-99.0 [facility] Comment on above: Performed By: #### L IPID, CMP, T4, TSH, FT3 #### [facility] [address] [place] [address] Dr. Mendel Herron MONO # 0.7 103/ul Normal 0.3-0.8 [facility] Comment on above: Performed By: #### L IPID, CMP, T4, TSH, FT3 #### [facility] [address] [place] [address] Dr. Mendel Herron Monocytes/100 WBC (Bld) 6.3 % Normal 1.7-12.0 [facility] Comment on above: Performed By: #### L IPID, CMP, T4, TSH, FT3 #### [facility] [address] [place] [address] Dr. Mendel Herron NEUT # 8.4 103/ul Critically high 1.4-6.5 [facility] Comment on above: Performed By: #### L IPID, CMP, T4, TSH, FT3 #### [facility] [address] [address] [address] Mendel Herron Neutrophils/100 WBC (Bld) 71.5 % Normal 43.0-75.0 [facility] Comment on above: Performed By: #### L IPID, CMP, T4, TSH, FT3 #### [facility] [address] [address] [address] Mendel Herron Platelet mean volume (Bld) [Entitic vol] 9.8 fL Normal 9.5-13.5 [facility] Comment on above: Performed By: #### L IPID, CMP, T4, TSH, FT3 #### [facility] [address] [place] [address] Dr. Mendel Herron PLT 374 103/ul Normal 150-450 [facility] Comment on above: Performed By: #### L IPID, CMP, T4, TSH, FT3 #### [facility] [address] [address] [address] Mendel Herron RBC 4.86 106/ul Normal 4.20-5.40 [facility] Comment on above: Performed By: #### L IPID, CMP, T4, TSH, FT3 #### [facility] [address] [address] [address] Mendel Herron WBC 11.7 103/ul Critically high 4.0-11.0 [facility] Comment on above: Performed By: #### L IPID, CMP, T4, TSH, FT3 #### [facility] [address] [place] [address] HEAD WO CONon [...] HELLEN VELAZQUEZ Date: 2022-08-09 15:23 Normal [facility] Covid-19 PCR ([facility])on 07-20 SARS-CoV-2 (COVID-19) RNA DEIRDRE+probe Ql (Unsp spec) Not detected Normal NOT DETECTED [facility] Comment on above: Result Comment: When diagnostic [...] for this test is supported by the [employer] Operator of Health and Human Service's declaration that [...] L IPID, CMP, T4, TSH, FT3 #### [facility] [address] [place] [address] Dr. Mendel Herron ER URINE PROFILEon 3 Bilirubin Ql (U) Negative Normal NEGATIVE [facility] Comment on above: Performed By: #### L IPID, CMP, T4, TSH, FT3 #### [facility] [address] [address] [address] Mendel Herron Clarity (U) CLEAR Normal CLEAR [facility] Comment on above: Performed By: #### L IPID, CMP, T4, TSH, FT3 #### [facility] [address] [place] [address] Dr. Mendel Herron Color (U) LT. YELLOW Normal YELLOW [facility] Comment on above: Performed By: #### L IPID, CMP, T4, TSH, FT3 #### [facility] [address] [place] [address] Dr. Mendel Herron ERUAHD A micrscopic examina tion will be performed if indicated. Normal [facility] Comment on above: Performed By: #### L IPID, CMP, T4, TSH, FT3 #### [facility] [address] [place] [address] Dr. Mendel Herron Glucose Ql (U) Negative Normal NEGATIVE [facility] Comment on above: Performed By: #### L IPID, CMP, T4, TSH, FT3 #### [facility] [address] [place] [address] Dr. Mendel Herron Hemoglobin Ql (U) TRACE-INTACT Abnormal NEGATIVE [facility] Comment on above: Performed By: #### L IPID, CMP, T4, TSH, FT3 #### [facility] [address] [place] [address] Dr. Mendel Herron Ketones Ql (U) Negative Normal NEGATIVE [facility] Comment on above: Performed By: #### L IPID, CMP, T4, TSH, FT3 #### [facility] [address] [place] [address] Dr. Mendel Herron LEUKOCYTES Negative Normal NEGATIVE [facility] Comment on above: Performed By: #### L IPID, CMP, T4, TSH, FT3 #### [facility] [address] [place] [address] Dr. Mendel Herron Nitrite Ql (U) Negative Normal NEGATIVE [facility] Comment on above: Performed By: #### L IPID, CMP, T4, TSH, FT3 #### [facility] [address] [place] [address] Dr. Mendel Herron pH (U) 5.0 [pH] Normal 5-9 [facility] Comment on above: Performed By: #### L IPID, CMP, T4, TSH, FT3 #### [facility] [address] [place] [address] Dr. Mendel Herron SPEC GRAVITY 1.015 Normal 1.005-<=1.02 5 [facility] Comment on above: Performed By: #### L IPID, CMP, T4, TSH, FT3 #### [facility] [address] [place] [address] Dr. Mendel Herron UA PROTEIN Negative Normal NEGATIVE/ TRACE [facility] Comment on above: Performed By: #### L IPID, CMP, T4, TSH, FT3 #### [facility] [address] [place] [address] Dr. Mendel Herron UR MICRO IND INDICATED Normal [facility] Comment on above: Performed By: #### L IPID, CMP, T4, TSH, FT3 #### [facility] [address] [place] [address] Dr. Mendel Herron Urobilinogen Qn (U) 0.2 {James'U}/dL Normal 0.2 - 1. 0 [facility] Comment on above: Performed By: #### L IPID, CMP, T4, TSH, FT3 #### [facility] [address] [place] [address] Dr. Mendel Herron LIPASEon 08-09-2022 Lipase [Catalytic activity/Vol] 114.0 U/L Normal 73.0-393.0 [facility] Comment on above: Performed By: #### L IPA, BMP, CMADM #### [facility] [address] [place] [address] Dr. Mendel Herron PROF CHEM 8 (BAS METB)on Anion gap [Moles/Vol] 18.9 mmol/L Normal [facility] Comment on above: Performed By: #### L IPA, BMP, CMADM #### [facility] [address] [place] [address] Dr. Mendel Herron Calcium [Mass/Vol] 9.4 mg/dL Normal 8.5-10.1 [facility] Comment on above: Performed By: #### L IPA, BMP, CMADM #### [facility] [address] [address] [address] Mendel Herron Chloride [Moles/Vol] 97 mmol/L Critically low 98-107 [facility] Comment on above: Performed By: #### L IPA, BMP, CMADM #### [facility] [address] [place] [address] Dr. Mendel Herron CO2 [Moles/Vol] 26.0 mmol/L Normal 21.0-32.0 [facility] Comment on above: Performed By: #### L IPA, BMP, CMADM #### [facility] [address] [place] [address] Dr. Mendel Herron Creatinine [Mass/Vol] 0.85 mg/dL Normal 0.55-1.02 [facility] Comment on above: Performed By: #### L IPA, BMP, CMADM #### [facility] [address] [place] [address] Dr. Mendel Herron EGFR-AF [place] >60 Normal >=60 [facility] Comment on above: Performed By: #### L IPA, BMP, CMADM #### [facility] [address] [place] [address] Dr. Mendel Herron EGFR-NON AF [place]IZ[place] >60 Normal >=60 [facility] Comment on above: Performed By: #### L IPA, BMP, CMADM #### [facility] [address] [address] [address] Mendel Herron Glucose [Mass/Vol] 120 mg/dL Critically high 74-106 [facility] Comment on above: Performed By: #### L IPA, BMP, CMADM #### [facility] [address] [place] [address] Dr. Mendel Herron Potassium [Moles/Vol] 3.9 mmol/L Normal 3.5-5.1 [facility] Comment on above: Performed By: #### L IPA, BMP, CMADM #### [facility] [address] [place], [place] [id number] Dr. Mendel Herron Sodium [Moles/Vol] 138 mmol/L Normal 136-145 [facility] Comment on above: Performed By: #### L IPA, BMP, CMADM #### [facility] [address] [place] [address] Dr. Mendel Herron Urea nitrogen [Mass/Vol] 17.0 mg/dL Normal 7.0-18.0 [facility] Comment on above: Performed By: #### L IPA, BMP, CMADM #### [facility] [address] [place] [address] Dr. Mendel Herron Urea nitrogen/Creatinine [Mass ratio] 20.0 mg/mg Normal [facility] Comment on above: Performed By: #### L IPA, BMP, CMADM #### [facility] [address] [place] [address] Dr. Mendel Herron TROPONIN, HIGH SENSITIVITYon 08-09-2022 HSTROP 32.5 pg/mL Normal 4.0-51.3 [facility] Comment on above: Result Comment: CUT- OFF POINTS HAVE BEEN ESTABLISHED BASED ON THE FOURTH UNIVERSAL DEFINITIONS OF MYOCARDIAL INFARCTION. THE UPPER REFERENCE LIMIT (URL) OF TROPONIN, DEFINED THE 99TH PERCENTILE OF cTnI DISTRIBUTION IN A REFERENCE POPULATION, HAS BEEN CONFIRMED THE DECISION THRESHOLD FOR IA DIAGNOSIS. Performed By: #### L IPID, CMP, T4, TSH, FT3 #### [facility] [address] [place] [address] Dr. Mendel Herron URINE MICROSCOPIC ONLYon BACTERIA NONE SEEN Normal NONE SEEN [facility] Comment on above: Performed By: #### L IPID, CMP, T4, TSH, FT3 #### [facility] [address] [place] [address] Dr. Mendel Herron Bacteria identified Cx Nom (U) NOT INDICATED Normal [facility] Comment on above: Performed By: #### L IPID, CMP, T4, TSH, FT3 #### [facility] [address] [place] [address] Dr. Mendel Herron CAST NONE SEEN Normal NONE SEEN [facility] Comment on above: Performed By: #### L IPID, CMP, T4, TSH, FT3 #### [facility] [address] [address] [address] Mendel Herron Crystals LM Nom (Urine sed) NONE SEEN Normal NONE SEEN [facility] Comment on above: Performed By: #### L IPID, CMP, T4, TSH, FT3 #### [facility] [address] [address] [address] Mendel Herron Epithelial cells LM Ql (Urine sed) NONE SEEN Normal NONE SEEN /RARE [facility] Comment on above: Performed By: #### L IPID, CMP, T4, TSH, FT3 #### [facility] [address] [address] [address] Mendel Herron MUCOUS NONE SEEN Normal NONE SEEN [facility] Comment on above: Performed By: #### L IPID, CMP, T4, TSH, FT3 #### [facility] [address] [address] [address] Mendel Herron RBC 0-2 Normal 0-2 [facility] Comment on above: Performed By: #### L IPID, CMP, T4, TSH, FT3 #### [facility] [address] [address] [address] Mendel Herron WBC NONE SEEN Normal NONE SEEN [facility] Comment on above: Performed By: #### L IPID, CMP, T4, TSH, FT3 #### [facility] [address] [id number] [address] Mendel Herron XR CHEST 1 Von [...] by: MARY DIETZ Date: 2022-08-09 15:18 Normal [facility] H PYLORI ANTIBODY IGGon 07-20 H. PYLORI IGG ABS 0.11 Index Value Normal 0.00-0.79 [facility] Comment on above: Result Comment: Nega tive <0.80 Equivocal 0.80 - 0.89 Positive >0.89 Performed By: #### L IPID, CMP, T4, TSH, FT3 #### [facility] [address] [place] [address] Dr. Mendel Herron AMYLASEon 08-06-2022 Amylase [Catalytic activity/Vol] 57 U/L Normal 25-115 [facility] Comment on above: Performed By: #### L IPID, CMP, T4, TSH, FT3 #### [facility] [address] [place] [address] Dr. Mendel Herron CBC AUTO DIFFon 08-06-2022 BASO # 0.1 103/ul Normal 0.0-0.1 [facility] Comment on above: Performed By: #### L IPID, CMP, T4, TSH, FT3 #### [facility] [address] [place] [address] Dr. Mendel Herron Basophils/100 WBC (Bld) 0.7 % Normal 0.2-2.0 [facility] Comment on above: Performed By: #### L IPID, CMP, T4, TSH, FT3 #### [facility] [address] [place] [address] Dr. Mendel Herron EO # 0.1 103/ul Normal 0.0-0.7 [facility] Comment on above: Performed By: #### L IPID, CMP, T4, TSH, FT3 #### [facility] [address] [place] [address] Dr. Mendel Herron Eosinophils/100 WBC (Bld) 0.5 % Critically low 0.9-7.0 [facility] Comment on above: Performed By: #### L IPID, CMP, T4, TSH, FT3 #### [facility] [address] [place] [address] Dr. Mendel Herron Erythrocyte distribution width (RBC) [Ratio] 13.7 % Normal 11.0-15.0 [facility] Comment on above: Performed By: #### L IPID, CMP, T4, TSH, FT3 #### [facility] [address] [place] [address] Dr. Mendle Herron Hematocrit (Bld) [Volume fraction] 46.2 % Normal 36.0-48.0 [facility] Comment on above: Performed By: #### L IPID, CMP, T4, TSH, FT3 #### [facility] [address] [place] [address] Dr. Mendel Herron Hemoglobin (Bld) [Mass/Vol] 15.1 g/dL Normal 12.0-16.0 [facility] Comment on above: Performed By: #### L IPID, CMP, T4, TSH, FT3 #### [facility] [address] [place] [address] Dr. Mendel Herron IG # 0.06 10e3/ul Critically high 0.00-0.03 [facility] Comment on above: Performed By: #### L IPID, CMP, T4, TSH, FT3 #### [facility] [address] [place] [address] Dr. Mendel Herron IG % 0.6 % Critically high 0.0-0.5 [facility] Comment on above: Performed By: #### L IPID, CMP, T4, TSH, FT3 #### [facility] [address] [place] [address] Dr. Mendel Herron LYMPH # 2.5 103/ul Normal 1.2-3.8 [facility] Comment on above: Performed By: #### L IPID, CMP, T4, TSH, FT3 #### [facility] [address] [place] [address] Dr. Mendel Herron Lymphocytes/100 WBC (Bld) 23.4 % Normal 20.5-60.0 [facility] Comment on above: Performed By: #### L IPID, CMP, T4, TSH, FT3 #### [facility] [address] [place] [address] Dr. Mendel Herron MANUAL DIFF REQ NO Normal [facility] Comment on above: Performed By: #### L IPID, CMP, T4, TSH, FT3 #### [facility] [address] [place] [address] Dr. Mendel Herron MCH (RBC) [Entitic mass] 31.4 pg Normal 26.7-34.0 [facility] Comment on above: Performed By: #### L IPID, CMP, T4, TSH, FT3 #### [facility] [address] [place] [address] Dr. Mendel Herron MCHC (RBC) [Mass/Vol] 32.7 g/dL Normal 29.9-35.2 [facility] Comment on above: Performed By: #### L IPID, CMP, T4, TSH, FT3 #### [facility] [address] [place] [address] Dr. Mendel Herron MCV (RBC) [Entitic vol] 96.0 fL Normal 81.0-99.0 [facility] Comment on above: Performed By: #### L IPID, CMP, T4, TSH, FT3 #### [facility] [address] [place] [address] Dr. Mendel Herron MONO # 0.6 103/ul Normal 0.3-0.8 [facility] Comment on above: Performed By: #### L IPID, CMP, T4, TSH, FT3 #### [facility] [address] [place] [address] Dr. Mendel Herron Monocytes/100 WBC (Bld) 6.0 % Normal 1.7-12.0 [facility] Comment on above: Performed By: #### L IPID, CMP, T4, TSH, FT3 #### [facility] [address] [place] [address] Dr. Mendel Herron NEUT # 7.4 103/ul Critically high 1.4-6.5 [facility] Comment on above: Performed By: #### L IPID, CMP, T4, TSH, FT3 #### [facility] [address] [place] [address] Dr. Mendel Herron Neutrophils/100 WBC (Bld) 68.8 % Normal 43.0-75.0 [facility] Comment on above: Performed By: #### L IPID, CMP, T4, TSH, FT3 #### [facility] [address] [address] [address] Mendel Herron Platelet mean volume (Bld) [Entitic vol] 9.7 fL Normal 9.5-13.5 [facility] Comment on above: Performed By: #### L IPID, CMP, T4, TSH, FT3 #### [facility] [address] [address] [address] Mendel Herron PLT 331 103/ul Normal 150-450 [facility] Comment on above: Performed By: #### L IPID, CMP, T4, TSH, FT3 #### [facility] [address] [address] [address] Mendel Herron RBC 4.81 106/ul Normal 4.20-5.40 [facility] Comment on above: Performed By: #### L IPID, CMP, T4, TSH, FT3 #### [facility] [address] [address] [address] Mendel Herron WBC 10.7 103/ul Normal 4.0-11.0 [facility] Comment on above: Performed By: #### L IPID, CMP, T4, TSH, FT3 #### [facility] [address] HEAD WO CONon [...] JEAN LOPES Date: 2022-08-06 08:39 Normal [facility] LIPASEon 01-19-2023 Lipase [Catalytic activity/Vol] 125.0 U/L Normal 73.0-393.0 [facility] Comment on above: Performed By: #### L IPID, CMP, T4, TSH, FT3 #### [facility] [address] [address] [address] Mendel Herron PROF 14(COMP METB)on 023 Albumin [Mass/Vol] 3.7 g/dL Normal 3.4-5.0 [facility] Comment on above: Performed By: #### L IPID, CMP, T4, TSH, FT3 #### [facility] [address] [place] [address] Dr. Mendel Herron Albumin/Globulin [Mass ratio] 0.9 {ratio} Normal [facility] Comment on above: Performed By: #### L IPID, CMP, T4, TSH, FT3 #### [facility] [address] [place] [address] Dr. Mendel Herron ALP [Catalytic activity/Vol] 110 U/L Normal 46-116 [facility] Comment on above: Performed By: #### L IPID, CMP, T4, TSH, FT3 #### [facility] [address] [place] [address] Dr. Mendel Herron ALT [Catalytic activity/Vol] 25 U/L Normal 14-59 [facility] Comment on above: Performed By: #### L IPID, CMP, T4, TSH, FT3 #### [facility] [address] [address] [address] Mendel Herron Anion gap [Moles/Vol] 14.0 mmol/L Normal [facility] Comment on above: Performed By: #### L IPID, CMP, T4, TSH, FT3 #### [facility] [address] [place] [address] Dr. Mendel Herron AST [Catalytic activity/Vol] 16 U/L Normal 15-37 [facility] Comment on above: Performed By: #### L IPID, CMP, T4, TSH, FT3 #### [facility] [address] [place] [address] Dr. Mendel Herron Bilirubin [Mass/Vol] 0.6 mg/dL Normal 0.2-1.0 [facility] Comment on above: Performed By: #### L IPID, CMP, T4, TSH, FT3 #### [facility] [address] [address] [address] Mendel Herron Calcium [Mass/Vol] 9.3 mg/dL Normal 8.5-10.1 [facility] Comment on above: Performed By: #### L IPID, CMP, T4, TSH, FT3 #### [facility] [address] [address] [address] Mendel Herron Chloride [Moles/Vol] 103 mmol/L Normal 98-107 [facility] Comment on above: Performed By: #### L IPID, CMP, T4, TSH, FT3 #### [facility] [address] [place] [address] Dr. Mendel Herron CO2 [Moles/Vol] 27.3 mmol/L Normal 21.0-32.0 [facility] Comment on above: Performed By: #### L IPID, CMP, T4, TSH, FT3 #### [facility] [address] [address] [address] Mendel Herron Creatinine [Mass/Vol] 0.71 mg/dL Normal 0.55-1.02 [facility] Comment on above: Performed By: #### L IPID, CMP, T4, TSH, FT3 #### [facility] [address] [place] [address] Dr. Mendel Herron EGFR-AF [place]IZ[place] >60 Normal >=60 [facility] Comment on above: Performed By: #### L IPID, CMP, T4, TSH, FT3 #### [facility] [address] [address] [address] Mendel Herron EGFR-NON AF CITIZEN [place] >60 Normal >=60 [facility] Comment on above: Performed By: #### L IPID, CMP, T4, TSH, FT3 #### [facility] [address] [address] [address] Mendel Herron Globulin (S) [Mass/Vol] 4.3 g/dL Normal [facility] Comment on above: Performed By: #### L IPID, CMP, T4, TSH, FT3 #### [facility] [address] [address] [address] Mendel Herron Glucose [Mass/Vol] 102 mg/dL Normal 74-106 [facility] Comment on above: Performed By: #### L IPID, CMP, T4, TSH, FT3 #### [facility] [address] [address] [address] Mendel Herron Potassium [Moles/Vol] 4.3 mmol/L Normal 3.5-5.1 [facility] Comment on above: Performed By: #### L IPID, CMP, T4, TSH, FT3 #### [facility] [address] [place] [address] Dr. Mendel Herron Protein [Mass/Vol] 8.0 g/dL Normal 6.4-8.2 [facility] Comment on above: Performed By: #### L IPID, CMP, T4, TSH, FT3 #### [facility] [address] [address] [address] Mendel Herron Sodium [Moles/Vol] 140 mmol/L Normal 136-145 [facility] Comment on above: Performed By: #### L IPID, CMP, T4, TSH, FT3 #### [facility] [address] [place] [address] Dr. Mendel Herron Urea nitrogen [Mass/Vol] 19.0 mg/dL Critically high 7.0-18.0 [facility] Comment on above: Performed By: #### L IPID, CMP, T4, TSH, FT3 #### [facility] [address] [address] [address] Mendel Herron Urea nitrogen/Creatinine [Mass ratio] 26.8 mg/mg Normal [facility] Comment on above: Performed By: #### L IPID, CMP, T4, TSH, FT3 #### [facility] [address] [place] [address] Dr. Mendel Herron Covid-19 PCR ([facility])on 06-19 SARS-CoV-2 (COVID-19) RNA DEIRDRE+probe Ql (Unsp spec) Not detected Normal NOT DETECTED [facility] Comment on above: Result Comment: This test is not yet approved or cleared by the [place] FDA. When there are no FDA-approved or cleared tests available, and other criteria are met, FDA can make tests available under an emergency access mechanism called an Emergency Use Authorization (EUA). The EUA for this test is supported by the [employer] Control Room Operator of Health and Human Service's (HHS's) declaration [...] SARS-CoV-2. Performed By: #### C VDTBH #### [facility] [address] [place] [address] Dr. Mendel Herron INFLUENZA A AND B AGon 07-16 [facility] SEE BELOW Normal [facility] Comment on above: Result Comment: Nega tive for Flu A protein angiten. Infection due to Flu A cannot be ruled out. Flu A angiten in the sample may be below the detection limit of the test. Performed By: #### L IPID, CMP, T4, TSH, FT3 #### [facility] [address] [address] [address] [facility] Normal [facility] Comment on above: Result Comment: Nega tive for Flu B protein antigen. Infection due to Flu B cannot be ruled out. Flu B antigen in the sample may be below the detection limit of the test. Performed By: #### L IPID, CMP, T4, TSH, FT3 #### [facility] [address] [place] [address] Dr. Mendel Herron INFLUENZA A AG Negative Normal NEGATIVE SEE COMMENT [facility] Comment on above: Performed By: #### L IPID, CMP, T4, TSH, FT3 #### [facility] [address] [place], [place] [address] Dr. Mendel Herron INFLUENZA B AG Negative Normal NEGATIVE SEE COMMENT [facility] Comment on above: Performed By: #### L IPID, CMP, T4, TSH, FT3 #### [facility] [address] [place], [place] [address] Dr. Mendel Herron Covid-19 PCR ([facility])on 04-19 SARS-CoV-2 (COVID-19) RNA DEIRDRE+probe Ql (Unsp spec) Not detected Normal NOT DETECTED [facility] Comment on above: Result Comment: This test is not yet approved or cleared by the [place] FDA. When there are no FDA-approved or cleared tests available, and other criteria are met, FDA can make tests available under an emergency access mechanism called an Emergency Use Authorization (EUA). The EUA for this test is supported by the [place] of Health and Human Service's (HHS's) declaration [...] L IPID, CMP, T4, TSH, FT3 #### [facility] [address] [place], [place] [address] Dr. Mendel Herron INFLUENZA A AND B AGon 05-11 [facility] SEE BELOW Normal [facility] Comment on above: Result Comment: Nega tive for Flu A protein angiten. Infection due to Flu A cannot be ruled out. Flu A angiten in the sample may be below the detection limit of the test. Performed By: #### L IPID, CMP, T4, TSH, FT3 #### [facility] [address] [address] [address] Mendel Herron [facility] SEE BELOW Normal [facility] Comment on above: Result Comment: Nega tive for Flu B protein antigen. Infection due to Flu B cannot be ruled out. Flu B antigen in the sample may be below the detection limit of the test. Performed By: #### L IPID, CMP, T4, TSH, FT3 #### [facility] [address] [address] [address] Mendel Herron INFLUENZA A AG Negative Normal NEGATIVE SEE COMMENT [facility] Comment on above: Performed By: #### L IPID, CMP, T4, TSH, FT3 #### [facility] [address] [address] [address] Mendel Herron INFLUENZA B AG Negative Normal NEGATIVE SEE COMMENT [facility] Comment on above: Performed By: #### L IPID, CMP, T4, TSH, FT3 #### [facility] [address] [place] [address] Dr. Mendel Herron INTERNAL CONTROLS Within Normal Limits Normal Wi thin Normal Limits [facility] Comment on above: Performed By: #### L IPID, CMP, T4, TSH, FT3 #### [facility] [address] [address] [address] Mendel Herron Comprehensive Metabolic Empo n 12-23-2021 Albumin [Mass/Vol] 3.7 g/dL Normal 3.2-5.5 [facility] Comment on above: Performed By: #### E BS CMP, EBS LIPID #### [facility] [address] Albumin/Globulin [Mass ratio] 1.0 {ratio} Normal [facility] Comment on above: Performed By: #### E BS CMP, EBS LIPID #### [facility] [address] [place] [address] [place] ALP [Catalytic activity/Vol] 159 U/L High 32-92 [facility] Comment on above: Performed By: #### E BS CMP, EBS LIPID #### [facility] [address] [place] [id number] [place] ALT [Catalytic activity/Vol] 28 U/L Normal 10-60 [facility] Comment on above: Performed By: #### E BS CMP, EBS LIPID #### [facility] [address] [place] [address] [place] AST [Catalytic activity/Vol] 27 U/L Normal 10-42 [facility] Comment on above: Performed By: #### E BS CMP, EBS LIPID #### [facility] [address] [place] [address] [place] Bilirubin [Mass/Vol] 1.2 mg/dL Normal 0.3-1.2 [facility] Comment on above: Performed By: #### E BS CMP, EBS LIPID #### [facility] [address] Calcium [Mass/Vol] 9.2 mg/dL Normal 8.2-10.2 [facility] Comment on above: Performed By: #### E BS CMP, EBS LIPID #### [facility] [address] [place] [address] [place] Chloride [Moles/Vol] 100 mmol/L Normal 95-114 [facility] Comment on above: Performed By: #### E BS CMP, EBS LIPID #### [facility] [address] [place] [address] [place] CO2 [Moles/Vol] 20.6 mmol/L Low 22.0-30.0 [facility] Comment on above: Performed By: #### E BS CMP, EBS LIPID #### [facility] [address] [place] [address] [place] Creatinine [Mass/Vol] 0.57 mg/dL Normal 0.44-1.03 [facility] Comment on above: Performed By: #### E BS CMP, EBS LIPID #### [facility] [address] [place] [address] [place] Estimated GFR ( Ni > 60 Normal [facility] Comment on above: Result Comment: GFR estimated reference range: According to KDOQI guidelines, <60 ml/min/1.73m2 is sufficient to diagnose a patient with chronic kidney disease. Performed By: #### E BS CMP, EBS LIPID #### [facility] [address] [place] [address] Estimated GFR (Non- Am > 60 Normal [facility] Comment on above: Performed By: #### E BS CMP, EBS LIPID #### [facility] [address] Globulin (S) [Mass/Vol] 3.7 g/dL Normal [facility] Comment on above: Performed By: #### E BS CMP, EBS LIPID #### [address] Glucose [Mass/Vol] 100 mg/dL Normal 70-100 [facility] Comment on above: Performed By: #### E BS CMP, EBS LIPID #### [address] Potassium [Moles/Vol] 3.9 mmol/L Normal 3.5-5.1 [facility] Comment on above: Performed By: #### E BS CMP, EBS LIPID #### [address] Protein [Mass/Vol] 7.4 g/dL Normal 6.1-7.9 [facility] Comment on above: Performed By: #### E BS CMP, EBS LIPID #### [address] Sodium [Moles/Vol] 135 mmol/L Low 136-146 [facility] Comment on above: Performed By: #### E BS CMP, EBS LIPID #### [facility] [address] [place] [address] Urea nitrogen [Mass/Vol] 12 mg/dL Normal 9-23 [facility] Comment on above: Performed By: #### E BS CMP, EBS LIPID #### [facility] [address] [place] [address] Lipid Profileon 12-23-2021 Cholesterol [Mass/Vol] 213 mg/dL High 140-200 [facility] Comment on above: Result Comment: Chol less than 200 mg/dl low risk Chol 201-239 mg/dl borderline risk Chol 240 mg/dl and greater high risk Performed By: #### E BS CMP, EBS LIPID #### [facility] [address] Cholesterol in HDL [Mass/Vol] 36 mg/dL Normal 35-85 [facility] Comment on above: Result Comment: HDL CHOL ATP-III CLASSIFICATION Cardiovascular Risk HDL > or equal to 60 mg/dL LOW HDL < 40 mg/dL HIGH Performed By: #### E BS CMP, EBS LIPID #### [facility] [address] Cholesterol.total/C holesterol in HDL [Mass ratio] 5.9 {ratio} Normal <5.0 [facility] Comment on above: Result Comment: PERF ORMED BY: [place] [address] PATHOLOGIST [employer] MARIBEL AGUILLON M.D. Performed By: #### E BS CMP, EBS LIPID #### [address] LDL Cholesterol,Calcula lizbet 151 mg/dL High 0-100 [facility] Comment on above: Result Comment: LDL ATP III CLASSIFICATION LDL less than 100 mg/dL Optimal LDL 100-129 mg/dL Near or above optimal LDL 130-159 mg/dL Borderline high LDL 160-189 mg/dL High LDL greater than 189 mg/dL Very high Performed By: #### E BS CMP, EBS LIPID #### [address] Triglyceride w/Reflex 129 mg/dL Normal 35-149 [facility] Comment on above: Result Comment: TRIG ATP III CLASSIFICATION TRIG less than 150 mg/dL Normal TRIG 150-199 mg/dL Borderline high TRIG 200-500 mg/dL High TRIG greater than 500 mg/dL Very high Standard traceable to the Center for Disease Conrtrol and Prevention (CDC) test method. Performed By: #### E BS CMP, EBS LIPID #### [facility] [address] VLDL CHOLESTEROL 25 mg/dL Normal [facility] Comment on above: Performed By: #### E BS CMP, EBS LIPID #### [facility] [address] Covid-19 PCR ([facility])on 11-16 SARS-CoV-2 (COVID-19) RNA DEIRDRE+probe Ql (Unsp spec) Detected Critically abnormal NOT DETECTED [facility] Comment on above: Result Comment: This test is not yet approved or cleared by the [place] FDA. When there are no FDA-approved or cleared tests available, and other criteria are met, FDA can make tests available under an emergency access mechanism called an Emergency Use Authorization (EUA). The EUA for this test is supported by the [employer] Control Room Operator of Health and Human Service's declaration that [...] used). Performed By: #### C VDTBH #### [facility] [address] [place] [address] Dr. Mendel Herron INFLUENZA A AND B AGon 12-02 [facility] SEE BELOW Normal [facility] Comment on above: Result Comment: Nega tive for Flu A protein angiten. Infection due to Flu A cannot be ruled out. Flu A angiten in the sample may be below the detection limit of the test. Performed By: #### L IPID, CMP, T4, TSH, FT3 #### [facility] [address] [place] [address] Dr. Mendel Herron INFLUBNEG SEE BELOW Normal [facility] Comment on above: Result Comment: Nega tive for Flu B protein antigen. Infection due to Flu B cannot be ruled out. Flu B antigen in the sample may be below the detection limit of the test. Performed By: #### L IPID, CMP, T4, TSH, FT3 #### [facility] [address] [place] [address] Dr. Mendel Herron INFLUENZA A AG Negative Normal NEGATIVE SEE COMMENT [facility] Comment on above: Performed By: #### L IPID, CMP, T4, TSH, FT3 #### [facility] [address] [place] [address] Dr. Mendel Herron INFLUENZA B AG Negative Normal NEGATIVE SEE COMMENT [facility] Comment on above: Performed By: #### L IPID, CMP, T4, TSH, FT3 #### [facility] [address] [place], [place] [address] Dr. Mendel Herron INTERNAL CONTROLS Within Normal Limits Normal Wi thin Normal Limits [facility] Comment on above: Performed By: #### L IPID, CMP, T4, TSH, FT3 #### [facility] [address] [place], [place] [address] Dr. Mendel Herron Cardiovascular Lab Reporton 08-18-2021 Cardiovascular Lab Report [facility] Patient Name: [facility] MR #: [id number] Department of Physician: Curtis Martinez MD Medicine Service Date: 08/18/2021 Division of Birthdate: 1970 Cardiology Room #: [facility] Cardiovascular Services [place] [address] Cardiovascular Laboratory Report ATRIAL FLUTTER ABLATION AND [...] ab (more content not included)... Normal [facility] BILL Antinuclear Antibodieson 04-23-2021 Antinuclear Abs, IFA Negative Normal . [facility] Comment on above: Result Comment: Nega tive <1:80 Borderline 1:80 Positive >1:80 ICAP nomenclature: AC-0 For more information about Hep-2 cell patterns use ANApatterns.org, the official website for the International Consensus on Antinuclear Antibody (BILL) Patterns (ICAP). Performed at: [facility] [address] [id number] [place]: Ger Yen PhD, Phone: [phone] PERFORMED BY: [place] [address] PATHOLOGIST [employer] TESTER MARIBEL AGUILLON M.D. Performed By: #### E SR, CRP, CBC, CREAT #### [address] #### BILL #### [facility] , C-Reactive Proteinon 021 C-Reactive Protein 0.7 mg/dL Normal 0.0-1.0 [facility] Comment on above: Result Comment: PERF ORMED BY: [place] [address] PATHOLOGIST [employer] MARIBEL AGUILLON M.D. Performed By: #### E SR, CRP, CBC, CREAT #### [address] #### BILL #### [facility] , Complement C3on 04-23-2021 Complement C3 170 mg/dL High 82-167 [facility] Comment on above: Result Comment: Perf ormed at: [facility] [address] [address] [place]: Ger Yen PhD, Phone: [phone] Performed By: #### A DDONUAPLUS #### [address] #### CH50, C3, C4 #### [facility] , Complement C4on 04-23-2021 Complement C4 14 mg/dL Normal 12-38 [facility] Comment on above: Performed By: #### A DDONUAPLUS #### [address] #### CH50, C3, C4 #### [facility] , Complement Total (CH50)on Complement Total (CH50) >60 Normal >41 [facility] Comment on above: [...] determine out of range values. Performed at: [facility] [address] [id number] [place]: Ger Yen PhD, Phone: [phone] PERFORMED BY: [place] [address] PATHOLOGIST [employer]IC [employer] TESTER MARIBEL AGUILLON M.D. Performed By: #### E BS CMP, EBS LIPID #### [address] Complete Blood Count Auto Di ffon 04-23-2021 Basophils (Bld) [#/Vol] 0.1 10*3/uL Normal 0.0-0.2 [facility] Comment on above: Performed By: #### E SR, CRP, CBC, CREAT #### [address] #### BILL #### [facility] , Basophils/100 WBC (Bld) 0.7 % Normal . [facility] Comment on above: Performed By: #### E SR, CRP, CBC, CREAT #### [address] #### BILL #### [facility] , Eosinophils (Bld) [#/Vol] 0.1 10*3/uL Normal 0.0-0.45 [facility] Comment on above: Performed By: #### E SR, CRP, CBC, CREAT #### [address] #### BILL #### [facility] , Eosinophils/100 WBC (Bld) 0.5 % Normal . [facility] Comment on above: Performed By: #### E SR, CRP, CBC, CREAT #### [address] #### BILL #### [facility] , Erythrocyte distribution width (RBC) [Ratio] 18.0 % High 11.9-15.3 [facility] Comment on above: Performed By: #### E SR, CRP, CBC, CREAT #### [place] [address] [place] #### BILL #### [facility] , Hematocrit (Bld) [Volume fraction] 31.6 % Low 34.0-46.4 [facility] Comment on above: Performed By: #### E SR, CRP, CBC, CREAT #### [address] #### BILL #### [facility] , Hemoglobin (Bld) [Mass/Vol] 9.8 g/dL Low 11.8-15.4 [facility] Comment on above: Performed By: #### E SR, CRP, CBC, CREAT #### [address] #### BILL #### [facility] , Lymphocytes (Bld) [#/Vol] 1.7 10*3/uL Normal 1.00-4.8 [facility] Comment on above: Performed By: #### E SR, CRP, CBC, CREAT #### [address] #### BILL #### [facility] , Lymphocytes/100 WBC (Bld) 15.0 % Normal . [facility] Comment on above: Performed By: #### E SR, CRP, CBC, CREAT #### [address] #### BILL #### [facility] , MCH (RBC) [Entitic mass] 24.8 pg Normal 24.7-34.3 [facility] Comment on above: Performed By: #### E SR, CRP, CBC, CREAT #### [address] #### BILL #### [facility] , MCV (RBC) [Entitic vol] 80.1 fL Normal 80-100 [facility] Comment on above: Performed By: #### E SR, CRP, CBC, CREAT #### [facility] [address] [place] [address] [place] #### BILL #### [facility] , Mean Corpuscular HGB Conc 31.0 g/dL Low 32.0-35.0 [facility] Comment on above: Performed By: #### E SR, CRP, CBC, CREAT #### [facility] [address] [place] [address] [place] #### BILL #### [facility] , Monocytes (Bld) [#/Vol] 0.5 10*3/uL Normal 0.0-0.8 [facility] Comment on above: Performed By: #### E SR, CRP, CBC, CREAT #### [facility] [address] [place] [address] [place] #### BILL #### [facility] , Monocytes/100 WBC (Bld) 4.6 % Normal . [facility] Comment on above: Performed By: #### E SR, CRP, CBC, CREAT #### [address] #### BILL #### [facility] , Neutrophils (Bld) [#/Vol] 9.1 10*3/uL High 1.8-7.7 [facility] Comment on above: Performed By: #### E SR, CRP, CBC, CREAT #### [address] #### BILL #### [facility] , Neutrophils/100 WBC (Bld) 79.2 % Normal . [facility] Comment on above: Performed By: #### E SR, CRP, CBC, CREAT #### [facility] [address] [place] [address] [place] #### BILL #### [facility] , Nucleated RBC/100 WBC (Bld) [Ratio] 0.1 % Normal 0-0.5 [facility] Comment on above: Performed By: #### E SR, CRP, CBC, CREAT #### [facility] [address] [place] [address] [place] #### BILL #### [facility] , Platelet mean volume (Bld) [Entitic vol] 8.3 fL Normal 6.3-10.7 [facility] Comment on above: Performed By: #### E SR, CRP, CBC, CREAT #### [facility] [address] [place] [address] #### BILL #### [facility] , Platelets (Bld) [#/Vol] 336 10*3/uL Normal 150-450 [facility] Comment on above: Performed By: #### E SR, CRP, CBC, CREAT #### [facility] [address] [place] [address] [place] #### BILL #### [facility] , RBC (Bld) [#/Vol] 3.94 10*6/uL Normal 3.60-5.00 [facility] Comment on above: Performed By: #### E SR, CRP, CBC, CREAT #### [address] #### BILL #### [facility] , WBC (Bld) [#/Vol] 11.5 10*3/uL High 4.5-11.0 [facility] Comment on above: Performed By: #### E SR, CRP, CBC, CREAT #### [place] [address] [place] #### BILL #### [facility] , Creatinineon 04-23-2021 Creatinine [Mass/Vol] 0.75 mg/dL Normal 0.44-1.03 [facility] Comment on above: Performed By: #### E SR, CRP, CBC, CREAT #### [place] [address] [place] #### BILL #### [facility] , Estimated GFR ( Ni > 60 Normal [facility] Comment on above: Result Comment: GFR estimated reference range: According to KDOQI guidelines, <60 ml/min/1.73m2 is sufficient to diagnose a patient with chronic kidney disease. Performed By: #### E SR, CRP, CBC, CREAT #### [place] [id number] [place] #### BILL #### [facility] , Estimated GFR (Non- Am > 60 Normal [facility] Comment on above: Performed By: #### E SR, CRP, CBC, CREAT #### [facility] [address] [place] [address] #### BILL #### [facility] , Dipstick and Microscopicon 1 Appearance (U) Clear Normal Clear [facility] Comment on above: Order Comment: Name Collection Type:: Clean-Voided Midstream Performed By: #### A DDONUAPLUS #### [address] #### CH50, C3, C4 #### [facility] , Bacteria,Urine None Seen Normal None Seen [facility] Comment on above: Order Comment: Name Collection Type:: Clean-Voided Midstream Performed By: #### A DDONUAPLUS #### [address] #### CH50, C3, C4 #### [facility] , Bilirubin,Urine Negative Normal Negative [facility] Comment on above: Order Comment: Name Collection Type:: Clean-Voided Midstream Performed By: #### A DDONUAPLUS #### [address] #### CH50, C3, C4 #### [facility] , Color (U) Yellow Normal Yellow [facility] Comment on above: Order Comment: Name Collection Type:: Clean-Voided Midstream Performed By: #### A DDONUAPLUS #### [facility] [address] [place] [address] #### CH50, C3, C4 #### [facility] , Glucose Ql (U) 100 mg/dL High Normal [facility] Comment on above: Order Comment: Name Collection Type:: Clean-Voided Midstream Performed By: #### A DDONUAPLUS #### [address] #### CH50, C3, C4 #### [facility] , Hyaline Casts,Urine 0-8 Normal 0-8 [facility] Comment on above: Order Comment: Name Collection Type:: Clean-Voided Midstream Result Comment: PERF ORMED BY: [place] [address] PATHOLOGIST [employer] MARIBEL AGUILLON M.D. Performed By: #### A DDONUAPLUS #### [address] #### CH50, C3, C4 #### [facility] , Ketones Ql (U) Negative Normal Negative [facility] Comment on above: Order Comment: Name Collection Type:: Clean-Voided Midstream Performed By: #### A DDONUAPLUS #### [address] #### CH50, C3, C4 #### [facility] , Leukocyte esterase Test strip Ql (U) Negative Normal Negative [facility] Comment on above: Order Comment: Name Collection Type:: Clean-Voided Midstream Performed By: #### A DDONUAPLUS #### [address] #### CH50, C3, C4 #### [facility] , Nitrite,Urine Negative Normal Negative [facility] Comment on above: Order Comment: Name Collection Type:: Clean-Voided Midstream Performed By: #### A DDONUAPLUS #### [address] #### CH50, C3, C4 #### [facility] , Occult Blood,Urine Negative Normal Negative [facility] Comment on above: Order Comment: Name Collection Type:: Clean-Voided Midstream Performed By: #### A DDONUAPLUS #### [address] #### CH50, C3, C4 #### [facility] , pH (U) 5.0 [pH] Normal 5.0-9.0 [facility] Comment on above: Order Comment: Name Collection Type:: Clean-Voided Midstream Performed By: #### A DDONUAPLUS #### [address] #### CH50, C3, C4 #### [facility] , Protein,Urine Negative Normal Negative [facility] Comment on above: Order Comment: Name Collection Type:: Clean-Voided Midstream Performed By: #### A DDONUAPLUS #### [address] #### CH50, C3, C4 #### [facility] , RBC,Urine None Seen Normal 0-4 [facility] Comment on above: Order Comment: Name Collection Type:: Clean-Voided Midstream Performed By: #### A DDONUAPLUS #### [address] #### CH50, C3, C4 #### [facility] , Specificy [place],Urine 1.009 Normal 1.001-1.030 [facility] Comment on above: Order Comment: Name Collection Type:: Clean-Voided Midstream Performed By: #### A DDONUAPLUS #### [address] #### CH50, C3, C4 #### [facility] , Squamous Epithelial Cell,Urine 0-1 Normal 0-2 [facility] Comment on above: Order Comment: Name Collection Type:: Clean-Voided Midstream Performed By: #### A DDONUAPLUS #### [address] #### CH50, C3, C4 #### [facility] , Urobilinogen,Urine Normal Normal Normal [facility] Comment on above: Order Comment: Name Collection Type:: Clean-Voided Midstream Performed By: #### A DDONUAPLUS #### [facility] [address] [place] [address] [place] #### CH50, C3, C4 #### [facility] , WBC LM.HPF (Urine sed) [#/Area] 0 /[HPF] Normal 0-4 [facility] Comment on above: Order Comment: Name Collection Type:: Clean-Voided Midstream Performed By: #### A DDONUAPLUS #### [facility] [address] [place] [address] #### CH50, C3, C4 #### [facility] , Erythrocyte Sedimentation Ra ryley 04-23-2021 ESR (Bld) [Velocity] 55 mm/h High 0-29 [facility] Comment on above: Result Comment: PERF ORMED BY: [place] [address] PATHOLOGIST [employer] MARIBEL AGUILLON M.D. Performed By: #### E SR, CRP, CBC, CREAT #### [facility] [address] [place] [address] #### BILL #### [facility] , BASIC METABOLIC PANELon 03-20 Calcium [Mass/Vol] 8.7 mg/dL Normal 8.6-10.3 [facility] Comment on above: Order Comment: No: D o not add to previous draw Performed By: #### 5 7307, 31820 #### [facility] [address] [place] [address], [facility] Chloride [Moles/Vol] 97 mmol/L Low 98-107 [facility] Comment on above: Order Comment: No: D o not add to previous draw Performed By: #### 5 7311, 43403 #### [facility] [address] [place] [address], [place] CO2 [Moles/Vol] 36 mmol/L High 21-31 [facility] Comment on above: Order Comment: No: D o not add to previous draw Performed By: #### 5 7307, 98551 #### [facility] [address] [place] [address], [place] Creatinine [Mass/Vol] 0.74 mg/dL Normal 0.60-1.20 [facility] Comment on above: Order Comment: No: D o not add to previous draw Performed By: #### 5 7307, 71602 #### [facility] [address] [place] [address], [place] GFR/1.73 sq M.predicted among blacks MDRD (S/P/Bld) [Vol rate/Area] mL/min/{1.73_m2} Normal >60 [facility] Comment on above: Order Comment: No: D o not add to previous draw Performed By: #### 5 7307, 53703 #### [facility] [address] [place] [address], [place] GFR/1.73 sq M.predicted among non-blacks MDRD (S/P/Bld) [Vol rate/Area] mL/min/{1.73_m2} Normal >60 [facility] Comment on above: Order Comment: No: D o not add to previous draw Performed By: #### 5 7307, 29921 #### [facility] [address] [place] [address], [place] Glucose [Mass/Vol] 123 mg/dL High 70-100 [facility] Comment on above: Order Comment: No: D o not add to previous draw Performed By: #### 5 7307, 02661 #### [facility] [address] [place] [address], [place] Potassium [Moles/Vol] 4.3 mmol/L Normal 3.5-5.1 [facility] Comment on above: Order Comment: No: D o not add to previous draw Performed By: #### 5 73, 69226 #### [facility] [address] [place] [address], [facility] Sodium [Moles/Vol] 139 mmol/L Normal 136-145 [facility] Comment on above: Order Comment: No: D o not add to previous draw Performed By: #### 5 7307, 32100 #### [facility] [address] [place] [address], [facility] Urea nitrogen [Mass/Vol] 24 mg/dL Normal 7-25 [facility] Comment on above: Order Comment: No: D o not add to previous draw Performed By: #### 5 7307, 40884 #### [facility] [address] CBC COMPLETE BLOOD COUNTon 04-11-2021 Erythrocyte distribution width (RBC) [Ratio] 16.8 % High 11.5-15.0 [facility] Comment on above: Order Comment: No: D o not add to previous draw Performed By: #### 5 7307, 79559 #### [facility] [address] [place] [address], [facility] Hematocrit (Bld) [Volume fraction] 29.7 % Low 36.0-45.0 [facility] Comment on above: Order Comment: No: D o not add to previous draw Performed By: #### 5 7307, 25034 #### [facility] [address] [place] [address], [facility] Hemoglobin (Bld) [Mass/Vol] 8.9 g/dL Low 12.0-15.0 [facility] Comment on above: Order Comment: No: D o not add to previous draw Performed By: #### 5 7307, 83481 #### [facility] [address] [place] [address], [facility] MCH (RBC) [Entitic mass] 25.4 pg Low 27.0-33.0 [facility] Comment on above: Order Comment: No: D o not add to previous draw Performed By: #### 5 7307, 70120 #### [facility] [address] [place] [address], [facility] MCHC (RBC) [Mass/Vol] 30.0 g/dL Low 32.0-35.0 [facility] Comment on above: Order Comment: No: D o not add to previous draw Performed By: #### 5 7307, 17057 #### [facility] [address] [place] [address], [facility] MCV (RBC) [Entitic vol] 84.9 fL Normal 82.0-98.0 [facility] Comment on above: Order Comment: No: D o not add to previous draw Performed By: #### 5 73, 46154 #### [facility] [address] [place] [address], [facility] Nucleated RBC/100 WBC (Bld) [Ratio] 0 % Normal 0-0 [facility] Comment on above: Order Comment: No: D o not add to previous draw Performed By: #### 5 7307, 54348 #### [facility] [address] [facility] [place] [address], [facility] PLAT CNT 446 10*3/uL High 150-400 [facility] Comment on above: Order Comment: No: D o not add to previous draw Performed By: #### 5 7307, 97848 #### [facility] [address] [place] [id number], [facility] RBC (Bld) [#/Vol] 3.50 10*6/uL Low 3.80-5.00 [facility] Comment on above: Order Comment: No: D o not add to previous draw Performed By: #### 5 7307, 43707 #### [facility] [address] [place] [id number], [facility] WBC (Bld) [#/Vol] 16.54 10*3/uL High 4.00-10.60 [facility] Comment on above: Order Comment: No: D o not add to previous draw Performed By: #### 5 7307, 77172 #### [facility] [address] [facility] [place] [address], [facility] Cardiovascular Lab Reporton 04-11-2021 Cardiovascular Lab Report [facility] Patient Name: Antonio [facility] S MR #: [id number] Department of Physician: London Rodas M.D. Division of Service Date: 04/11/2021 Cardiology Birthdate: 1970 Adult Cardiovascular Room #: 5AB [id number] [facility] [address] [facility]. [place] [address] Cardiovascular Laboratory Report PROCEDURE PERFORMED: Transesophageal echocardiogram and cardioversion. INDICATION: Atrial flutter. FELLOW: Dunia Sierra MD PROCEDURE IN DETAIL: Informed consent was obtained from the patient after explaining the indication, risks, benefits, as well as alternatives. The patient understood and agreed, and signed the consent form. The patient was brought to the wharf labourer and transesophageal echocardiogram was performed, under conscious [...] Sierra MD Date Trans: 04/11/2021 12:53 P/mmo [id number] cc: Phillip Ann M.D. [address], [place] [address] Normal [facility] MAGNESIUM BLOODon 04-11-2021 Magnesium [Mass/Vol] 2.3 mg/dL Normal 1.9-2.7 [facility] Comment on above: Order Comment: No: D o not add to previous draw Performed By: #### 5 7307, 49904 #### [facility] [address] POC GLUCOSE LABon 04-11-2021 Glucose [Mass/Vol] 124 mg/dL High 70-100 [facility] Comment on above: Performed By: #### 5 7307, 95991 #### [facility] [address] TROPONIN-Ion 04-11-2021 Troponin I.cardiac [Mass/Vol] 0.06 ng/mL High 0.00-0.04 [facility] Comment on above: Order Comment: No: D o not add to previous draw Result Comment: REFE RENCE RANGES: 0.00 - 0.04 ng/ml NORMAL 0.05 - 0.50 ng/ml INDETERMINATE > 0.50 ng/ml CONSISTENT WITH AN M.I. Performed By: #### 5 7307, 91745 #### [facility] [address] *BLOOD CULTUREon 04-10-2021 *BLOOD CULTURE Clinical Report: (D) Specimen: BLOOD CULTURE Collected: 04/10/2021 09:50 Status: Final Last Updated: 04/15/2021 11:28 (1) Right hand CULT RES (Final) No Growth Day 5 Normal [facility] Comment on above: Order Comment: No: D o not add to previous draw Performed By: #### 5 7307, 41897 #### [facility] [address] [place] [address], [place] *BLOOD CULTURE Clinical Report: (D) Specimen: BLOOD CULTURE Collected: 04/10/2021 09:50 Status: Final Last Updated: 04/15/2021 11:28 (1) Left hand CULT RES (Final) No Growth Day 5 Normal [facility] Comment on above: Order Comment: No: D o not add to previous draw Performed By: #### 5 7307, 94106 #### [facility] [address] *SARS-CoV-2 COVID-19on 04-10 SARS-CoV-2 (COVID-19) RNA DEIRDRE+probe Ql (Unsp spec) Not detected Normal Not Detected [facility] Comment on above: Order Comment: No: D o not add to previous draw Performed By: #### 5 7307, 66349 #### [facility] [address] APTTon 04-10-2021 aPTT Coag (Bld) [Time] 23.4 s Low 25.0-35.0 [facility] Comment on above: Order Comment: No: D [...] THIS PURPOSE. Performed By: #### 5 7307, 36608 #### [facility] [address] aPTT Coag (Bld) [Time] 23.2 s Low 25.0-35.0 [facility] Comment on above: Order Comment: No: D [...] THIS PURPOSE. Performed By: #### 5 7307, 17208 #### [facility] [address] [place] [address], [facility] BASIC METABOLIC PANELon 09-2 Calcium [Mass/Vol] 8.6 mg/dL Normal 8.6-10.3 [facility] Comment on above: Order Comment: No: D o not add to previous draw Performed By: #### 1 0070, 03323, 58655 #### [facility] [address] [place] [address], [facility] Chloride [Moles/Vol] 99 mmol/L Normal 98-107 [facility] Comment on above: Order Comment: No: D o not add to previous draw Performed By: #### 1 0, 20751, 50795 #### [facility] [address] [place] [address], [facility] CO2 [Moles/Vol] 32 mmol/L High 21-31 [facility] Comment on above: Order Comment: No: D o not add to previous draw Performed By: #### 1 0, 62385, 78705 #### [facility] [address] [place] [address], [facility] Creatinine [Mass/Vol] 0.84 mg/dL Normal 0.60-1.20 [facility] Comment on above: Order Comment: No: D o not add to previous draw Performed By: #### 1 0070, 22720, 66534 #### [facility] [address] [place] [address], [facility] GFR/1.73 sq M.predicted among blacks MDRD (S/P/Bld) [Vol rate/Area] mL/min/{1.73_m2} Normal >60 [facility] Comment on above: Order Comment: No: D o not add to previous draw Performed By: #### 1 0, 58127, 62095 #### [facility] [address] [place] [address], [facility] GFR/1.73 sq M.predicted among non-blacks MDRD (S/P/Bld) [Vol rate/Area] mL/min/{1.73_m2} Normal >60 [facility] Comment on above: Order Comment: No: D o not add to previous draw Performed By: #### 1 0, 85582, 31411 #### [facility] [address] [place] [address], [facility] Glucose [Mass/Vol] 117 mg/dL High 70-100 [facility] Comment on above: Order Comment: No: D o not add to previous draw Performed By: #### 1 69, , 68464 #### [facility] [address] [place] [address], [facility] Potassium [Moles/Vol] 3.9 mmol/L Normal 3.5-5.1 [facility] Comment on above: Order Comment: No: D o not add to previous draw Performed By: #### 1 69, 89953, 78427 #### [facility] [address] [facility] [place] [place] [address], [facility] Sodium [Moles/Vol] 139 mmol/L Normal 136-145 [facility] Comment on above: Order Comment: No: D o not add to previous draw Performed By: #### 1 69, 69444, 73576 #### [facility] [address] [place] [address], [place] Urea nitrogen [Mass/Vol] 19 mg/dL Normal 7-25 [facility] Comment on above: Order Comment: No: D o not add to previous draw Performed By: #### 1 69, 96589, 62788 #### [facility] [address] [place] [address], [place] BNP (B-TYPE NATRIURETIC PEPT MARILYN)on 04-10-2021 Natriuretic peptide B (Bld) [Mass/Vol] 259 pg/mL High 0-100 [facility] Comment on above: Order Comment: No: D o not add to previous draw Result Comment: Give n the appropriate clinical setting a BNP result of >100 pg/mL indicates congestive heart failure. Performed By: #### 5 7307, 86484 #### [facility] [address] CBC W/DIFFon 04-10-2021 ABS IMM GRANS 1.1 10*3/uL High 0.0-0.2 [facility] Comment on above: Performed By: #### 5 0103 #### [facility] [address] ABS NEUTROPHILS 9.6 10*3/uL High 1.6-7.6 [facility] Comment on above: Performed By: #### 5 3 #### [facility] [address] ANISO MODERATE Normal [facility] Comment on above: Performed By: #### 5 3 #### [facility] [address] Basophils (Bld) [#/Vol] 0.1 10*3/uL Normal 0.0-0.2 [facility] Comment on above: Performed By: #### 5 3 #### [facility] [address] Basophils/100 WBC (Bld) 0.7 % Normal 0.0-1.0 [facility] Comment on above: Performed By: #### 5 3 #### [facility] [address] [place] [address], [facility] Eosinophils (Bld) [#/Vol] 0.1 10*3/uL Normal 0.0-0.5 [facility] Comment on above: Performed By: #### 5 3 #### [facility] [address] [facility] [place] [address], [facility] Eosinophils/100 WBC (Bld) 0.4 % Normal 0.0-6.0 [facility] Comment on above: Performed By: #### 5 0103 #### [facility] [address] [place] [address], [facility] Erythrocyte distribution width (RBC) [Ratio] 16.5 % High 11.5-15.0 [facility] Comment on above: Performed By: #### 5 0103 #### [facility] [address] [place] [address], [facility] Hematocrit (Bld) [Volume fraction] 31.2 % Low 36.0-45.0 [facility] Comment on above: Performed By: #### 5 0103 #### [facility] [address] [place] [address], [facility] Hemoglobin (Bld) [Mass/Vol] 9.0 g/dL Low 12.0-15.0 [facility] Comment on above: Performed By: #### 5 0103 #### [facility] [address] [place] [address], [facility] HYPO SLIGHT Normal [facility] Comment on above: Performed By: #### 5 0103 #### [facility] [address] [place] [address], [facility] IMMATURE GRANS 6.8 % High 0.0-1.0 [facility] Comment on above: Performed By: #### 5 0103 #### [facility] [address] [place] [address], [facility] Lymphocytes (Bld) [#/Vol] 4.4 10*3/uL High 1.2-4.0 [facility] Comment on above: Performed By: #### 5 0103 #### [facility] [address] [place] [address], [facility] Lymphocytes/100 WBC (Bld) 26.4 % Normal 20.0-45.0 [facility] Comment on above: Performed By: #### 5 0103 #### [facility] [address] [place] [address], [facility] MCH (RBC) [Entitic mass] 25.3 pg Low 27.0-33.0 [facility] Comment on above: Performed By: #### 5 0103 #### [facility] [address] [facility] [place] [place] [address], [facility] MCHC (RBC) [Mass/Vol] 28.8 g/dL Low 32.0-35.0 [facility] Comment on above: Performed By: #### 5 0103 #### [facility] [address] [facility] [place] [place] [address], [facility] MCV (RBC) [Entitic vol] 87.6 fL Normal 82.0-98.0 [facility] Comment on above: Performed By: #### 5 0103 #### [facility] [address] [facility] [place] [place] [address], [facility] Monocytes (Bld) [#/Vol] 1.3 10*3/uL High 0.1-1.0 [facility] Comment on above: Performed By: #### 5 0103 #### [facility] [address] [facility] [place] [place] [address], [facility] MONOS 7.6 % Normal 5.0-12.0 [facility] Comment on above: Performed By: #### 5 0103 #### [facility] [address] [place] [address], [facility] Neutrophils/100 WBC (Bld) 58.1 % Normal 40.0-72.0 [facility] Comment on above: Performed By: #### 5 3 #### [facility] [address] [place] [address], [facility] Nucleated RBC/100 WBC (Bld) [Ratio] 1 % High 0-0 [facility] Comment on above: Performed By: #### 5 0103 #### [facility] [address] [place] [address], [facility] PLAT CNT 483 10*3/uL High 150-400 [facility] Comment on above: Performed By: #### 5 0103 #### [facility] [address] [place] [address], [facility] POIK SLIGHT Normal [facility] Comment on above: Performed By: #### 5 0103 #### [facility] [address] [place] [address], [place] POLY SLIGHT Normal [facility] Comment on above: Performed By: #### 5 0103 #### [facility] [address] [place] [address], [facility] RBC (Bld) [#/Vol] 3.56 10*6/uL Low 3.80-5.00 [facility] Comment on above: Performed By: #### 5 0103 #### [facility] [address] [place] [address], [facility] WBC (Bld) [#/Vol] 16.54 10*3/uL High 4.00-10.60 [facility] Comment on above: Performed By: #### 5 0103 #### [facility] [address] [place] [address], [facility] LIPID PROFILEon 04-10-2021 Cholesterol [Mass/Vol] 161 mg/dL Normal 120-200 [facility] Comment on above: Result Comment: CHOL ESTEROL REFERENCE RANGE: 20 YEARS AND OLDER CARDIOVASCULAR RISK Less than 200 mg/dl Low Risk 200 to 239 mg/dl Borderline Risk 240 mg/dl and greater High Risk Performed By: #### 3 1569, 04003, 28476 #### [facility] [address] [place] [address], [facility] Cholesterol in HDL [Mass/Vol] 61 mg/dL Normal 23-92 [facility] Comment on above: Result Comment: Slig ht variation in normal range could be due to gender and/or age. HDL CHOLESTEROL REFERENCE RANGE: 20 years and older Cardiovascular Risk > or =60 mg/dL Desirable 40 TO 59 mg/dL Low Risk <40 mg/dL High Risk Performed By: #### 3 1569, 76160, 34778 #### [facility] [address] [place] [address], [place] Cholesterol in LDL [Mass/Vol] 28 mg/dL Normal 0-130 [facility] Comment on above: Result Comment: LDL IS A CALCULATION LDL IS ONLY VALID IF THE TRIG IS LESS THAN 400. Performed By: #### 3 1569, 45308, 12481 #### [facility] [address] [place] [address], [facility] Cholesterol.total/C holesterol in HDL [Mass ratio] 2.6 {ratio} Normal .0-4.5 [facility] Comment on above: Performed By: #### 3 1569, 00615, 69581 #### [facility] [address] [place] [address], [facility] NON-HDL CHOLESTEROL 100 mg/dL Normal [facility] Comment on above: Performed By: #### 3 1569, 17662, 19938 #### [facility] [address] [place] [address], [place] Triglyceride [Mass/Vol] 362 mg/dL High 40-149 [facility] Comment on above: Result Comment: TRIG LYCERIDE REFERENCE RANGE: 20 YEARS AND OLDER CARDIOVASCULAR RISK LESS THAN 150 mg/dl LOW RISK 150 TO 199 mg/dl BORDERLINE RISK 200 mg/dl AND GREATER HIGH RISK Performed By: #### 3 1569, 21941, 01588 #### [facility] [address] [place] [address], [place] VLDL CHOL 72 mg/dL High 0-40 [facility] Comment on above: Performed By: #### 3 1569, 69755, 09432 #### [facility] [address] [place] [address], [facility] MAGNESIUM BLOODon 04-10-2021 Magnesium [Mass/Vol] 2.4 mg/dL Normal 1.9-2.7 [facility] Comment on above: Order Comment: No: D o not add to previous draw Performed By: #### 1 0070, 73651, 64728 #### [facility] [address] [place] [address], [facility] POC GLUCOSE LABon 04-10-2021 Glucose [Mass/Vol] 350 mg/dL High 70-100 [facility] Comment on above: Performed By: #### 5 7307, 63132 #### [facility] [address] [place] [address], [facility] Glucose [Mass/Vol] 249 mg/dL High 70-100 [facility] Comment on above: Performed By: #### 5 7307, 38312 #### [facility] [address] [facility] [place] [address], [facility] PROCALCITONINon 04-10-2021 PROCALCITONIN 0.09 ng/mL Normal 0.00-0.10 [facility] Comment on above: Order Comment: No: D [...] initial PCT<0.5ng/mL Performed By: #### 5 7307, 91806 #### [facility] [address] PROTHROMBIN TIMEon 1 INR Coag (PPP) [Relative time] 1.07 {INR} Normal 0.91-1.16 [facility] Comment on above: Order Comment: No: D [...] CHEST 1995;108:[id number]. Performed By: #### 5 7307, 27245 #### [facility] [address] PT Coag (PPP) [Time] 13.9 s Normal 12.3-14.8 [facility] Comment on above: Order Comment: No: D o not add to previous draw Result Comment: ALL RESULTS MUST BE INTERPRETED WITH RESPECT TO BLOOD DRAWING ARTIFACT OR DILUTION ERROR OF ANTICOAGULANT AT THE TIME OF SAMPLING. Performed By: #### 5 7307, 39331 #### [facility] [address] [facility]. [address] TROPONIN-Ion 04-10-2021 Troponin I.cardiac [Mass/Vol] 0.07 ng/mL High 0.00-0.04 [facility] Comment on above: Order Comment: No: D o not add to previous draw Result Comment: REFE RENCE RANGES: 0.00 - 0.04 ng/ml NORMAL 0.05 - 0.50 ng/ml INDETERMINATE > 0.50 ng/ml CONSISTENT WITH AN M.I. Performed By: #### 3 1569, 39737, 90223 #### [facility] [address] Troponin I.cardiac [Mass/Vol] 0.07 ng/mL High 0.00-0.04 [facility] Comment on above: Order Comment: No: D o not add to previous draw Result Comment: REFE RENCE RANGES: 0.00 - 0.04 ng/ml NORMAL 0.05 - 0.50 ng/ml INDETERMINATE > 0.50 ng/ml CONSISTENT WITH AN M.I. Performed By: #### 1 0070, 06390, 92700 #### [facility] [address] [place] [address], [facility] TSH3 WITH REFLEX FT4on 04-10 TSH 3RD GENERATION 0.95 uIU/mL Normal 0.34-5.60 [facility] Comment on above: Order Comment: Yes: Add to Previous draw if able Performed By: #### 3 1569 #### [facility] [address] [place] [address], [facility] TSH 3RD GENERATION 3.12 uIU/mL Normal 0.34-5.60 [facility] Comment on above: Performed By: #### 3 1569, 27308, 92939 #### [facility] [address] [facility] UFH HEPARIN ASSAYon 04-10-20 21 UNFRACTIONATED HEPARIN >1.00 Critically high 0.30-0.70 [facility] Comment on above: Result Comment: Resu lt checked and called. Accurately read back by Haven Avila RN at 1122 per RN patient may have previously been given Eliquis. UFH = 1.36 for pharmacy use Rivaroxaban and Apixaban will interfere with the anti Xa assay used to monitor UFH and LMWH. Performed By: #### 5 7307, 19994 #### [facility] [address] [facility] Cardiovascular Lab Reporton 01-30-2021 Cardiovascular Lab Report [facility] Patient Name: Antonio Diana [facility] S MR #: [id number] Department of Physician: London Ross M.D. Division of Service Date: 01/30/2021 Cardiology Birthdate: 1970 Adult Cardiovascular Room #: [facility] [address] [facility]. [place] [address] Cardiovascular Laboratory Report FINAL IMPRESSIONS: 1. Moderately [...] 5. Follow up with Cardiology in the [facility] Cardiology office in the next 2 [...] right internal jugular vein was obtained. A 6-Kinyarwanda glide sheath was inserted without difficulty. A [...] Bear M.D. Date Trans: 01/30/2021 02:48 P/marixa [id number] cc: Phillip Ann M.D. [address], [facility] [address] [facility] Vital Signs Date Time Vital Sign Value Performing Clinician Iman stafford 09-15-2022 15:24-0500 Blood Pressure Location Juan Miguel SALINAS [facility] 09-15-2022 15:24-0500 Diastolic blood pressure 78 mm[Hg] Juan Miguel SALINAS [facility] 09-15-2022 15:24-0500 Heart rate 70 /min Juan Miguel SALINAS [facility] 09-15-2022 15:24-0500 Respiratory rate 16 /min Juan Miguel BRAD [facility] 09-15-2022 15:24-0500 Systolic blood pressure 116 mm[Hg] Juan Miguel BRAD [facility] Encounters Encounter Date Encounter Type Care Provider Facility Start: 10-26-2023 End: 10-26-2023 ambulatory JENNA [facility] Start: 05-05-2023 End: 05-05-2023 ambulatory [facility] Start: 01-27-2023 End: 01-27-2023 ambulatory [facility] Start: 11-17-2022 End: 11-17-2022 ambulatory EMILY [...] 08-25-2022 ambulatory Juan Miguel SALINAS Facility : [facility] Start: 08-20-2022 End: 08-21-[address] PHILLIP [...] Evaluation and management of inpatient PHILLIP ANN Facility:[facility] Start: 01-30-2021 End: 01-31-2021 ambulatory ADAMAB Richie BEAR Facility:[facility] Procedures Date Procedure Procedure Detail Performing Clinician Start: 04-11-2021 Spiritism of Cardi ac Rhythm, Single SAMER Sony [...] unspecified formulation Juan Miguel SALINAS [facility] 10-29-2020 SARS-CoV-2 (COVID-19 ) mRNA-1273 vaccine Juan Miguel NILL [facility] 10-25-2020 SARS-CoV-2 (COVID-19 ) mRNA BNT-162b2 vax Juan Miguel SALINAS [facility] Comment on above: Result Comment: 2022: [id number] 10-24-2020 SARS-CoV-2 (COVID-19 ) mRNA BNT-162b2 gax Juan Miguel NILL [facility] 10-04-2020 SARS-CoV-2 (COVID-19 ) mRNA BNT-162b2 vax Juan Miguel NILL [facility] [place] Comment on above: Result Comment: 2022: TPV50 10-03-2020 SARS-CoV-2 (COVID-19 ) mRNA BNT-162b2 gax Juan Miguel NILL [facility] Payers Date Payer Category Payer Unknown [id number] 1970 Unknown [id number] 2.16.8 [id number] 1970 Unknown [id number] 2.16.8 40.1.324370.3.579.2.647 1970 Unknown [id number] 2.16.8 40.1.491815.3.579.2.727 1970 Unknown [id number] 2.16.8 40.1.919007.3.579.2.727 1970 Unknown [id number] 2.16.84 0.1.335264.3.579.2.593 1970 Unknown [id number] 2.16.84 0.1.731012.3.579.2.593 1970 Unknown [id number] 2.16.84 0.1.616392.3.579.2.593 1970 Unknown [id number] 2.16.84 0.1.785497.3.579.2.593 1970 Unknown [id number] 2.16.84 0.1.354639.3.579.2.593 1970 Unknown [id number] 2.16.84 0.1.829904.3.579.2.593 1968 Unknown [id number] 2.16.84 0.1.271818.3.579.2.593 1970 Unknown [id number] 2.16.84 0.1.426989.3.579.2.593 1970 Unknown [id number] 2.16.84 0.1.387336.3.579.2.593 1968 Unknown [id number] 2.16.84 0.1.830868.3.579.2.593 1968 Unknown [id number] 2.16.84 0.1.413287.3.579.2.593 1968 Unknown [id number] 2.16.84 0.1.335886.3.579.2.593 1970 Unknown [id number] 2.16.84 0.1.498899.3.579.2.593 1961 Unknown [id number] 1961 Unknown [id number] 1961 Unknown [id number] 1961 Unknown [id number] Social History Date Type Detail Facility Start: 09-15-2022 Tobacco smoking status Ex-smoker (fi nding) [facility] Tobacco smoking status Never Gener [facility] [place] [facility] Sex Assigned At Female [facility] Medical Equipment Procedure Code Equipment Code Equipment Origin al Text Equipment Identifier Dates lancets, glucome ter, alcohol swabs, testing strips, insulin pen needles, Print Requisition, Supply Start: 08-25-2021 Functional Status Date Assessment Result Facility 09-15-2022 Functional Status N/A [facility] Clinical Notes 04-12-2021 to 10-26-2023 Note Date [...] All other systems reviewed and are negative. [facility] 10-26-2023 Note Cardiovascular Medic ine [facility] SUBJECTIVE Chief Complaint Patient presents with [...] trended upwards is a since seen in [facility] 04/28/2023 and was diagnosed with vertigo [...] (paroxysmal atrial fi (more content not included)... [facility] 05-05-2023 Note [facility]iology Consul t Note Reason for visit: [...] trended upwards is a since seen in [facility] 04/28/2023 and was diagnosed with vertigo 01/27/2023 [...] Take 1 table (more content not included)... [facility] 05-05-2023 Note Patient here for 3 m [...] All other systems reviewed and are negative. [facility] 01-27-2023 Note Patient here for 6 m [...] All other systems reviewed and are negative. [facility] 01-27-2023 Note [facility] Cardiology Consul t Note Reason for visit: [...] Prior to Visit Medication Sig Dispense Refill zotxmvazga-qwrfltvgakjkx-tfvb (Fioricet) 50-300-40 mg capsule dicyclomine (Bentyl) 20 [...] 0.5 mg(2 mg/1. (more content not included)... [facility] 11-17-2022 Note PROCEDURE: XR CHEST 1 V [...] by: AUDREY BO Date: 2022-11-17 12:14 [facility] 09-17-2022 Note Chief Complaint consultation for epigastric pain and nausea HPI Staff 51 year old female presents on consultation from Dr. Ann for intermittent abdominal pain. Presented to [facility] ED 08/09 with complaint of epigastric pain [...] section, section, Excisi (more content not included)... [facility] Comment on above: Result Comment: Elec tronically Signed By: BRAD DIAZ, Juan Miguel Rivera\Date and Time Signed: 09/17/22 11:55 EST 04-12-2021 Note MR#: [id number] [facility] Pt. Name: Diana Alvarez Admitted: 04/10/2021 Discharged: 04/11/2021 Date of : 1970 Physician: Orlin Wick MD DISCHARGE SUMMARY PRIMARY DIAGNOSIS: New-onset atrial flutter with RVR. SECONDARY DIAGNOSES: 1. Pulmonary hypertension. 2. COPD. 3. Diabetes. HISTORY OF PRESENT ILLNESS: This patient is a 50-year-old female with past medical history of COPD, hypertension, and diabetes, who was sent from [facility] due to atrial flutter with RVR due to COPD exacerbation. The patient was initially treated with IV Cardizem, however, it was changed to p.o. prior to transfer. The patient was also given loading dose digoxin. The patient was transferred to [facility] for cardioversion. HOSPITAL COURSE: 1. New-onset atrial [...] Wick MD Date Trans: 04/12/2021 03:25 P/marixa [id number] cc: Phillip Ann M.D. [address] [facility] [address] [facility] Evaluation + Plan note No data available for this section General [facility] Discharge instructions No data available for this section [facility] Progress note No data available for this section [facility] Summary Purpose Family History No Family History Records FoundNo Family History Records FoundNo Family History Records FoundNo Family History Records FoundNo Family History Records Found Advance Directives No Advanced Directives Records FoundNo Advanced Directives Records FoundNo Advanced Directives Records FoundNo Advanced Directives Records FoundNo Advanced Directives Records Found Additional Source Comments INFORMATION SOURCE (unrecogn ized section and content) DATE CREATED AUTHOR 09/10/2021 [facility] DATE CREATED AUTHOR AUTHOR'S ORGANIZ ATION 12/24/2021 [facility] DATE CREATED AUTHOR AUTHOR'S ORGANIZ ATION 10/22/2022 Flanagan [facility] DATE CREATED AUTHOR AUTHOR'S ORGANIZ ATION 11/20/2022 [facility] DATE CREATED AUTHOR AUTHOR'S ORGANIZ ATION 11/12/2023 [facility] Patient Care team informatio n (unrecognized section and content) Personnel Name: Phillip Ann MD Address: Address: [address] [place] [address] FOR RECORDS PERTAINING TO PATIENTS WHO ARE [...] BE BASED ON THE PRIMARY CLINICAL RECORDS. [facility] [employer] [facility]. provides no warranty or guarantee of the accuracy or completeness of information in this document.
--- NOTE | 2023-11-18 22:40 | ED_ITS ---
HPI - Nausea/Vomiting/Diarrhea General Chief complaint: Nausea/Vomiting/Diarrhea Stated complaint: Nausea/Vomiting, Diarrhea Time Seen by Provider: 11/18/23 22:26 Source: patient Mode of arrival: Wheelchair History of Present Illness HPI Narrative: 53-year-old female presents for nausea vomiting and diarrhea which began today. The upper part of her stomach hurts as well. She has had multiple episodes of diarrhea, nonbloody. No hematemesis or fever. No known ill contacts. The pain in her stomach is moderate and it waxes and wanes. Related Data Home Medications ?Medication ?Instructions ?Recorded ?Confirmed albuterol sulfate 90 mcg/actuation 2 puff inhalation Q4H PRN wheezing 04/18/23 10/14/23 aerosol inhaler (Ventolin HFA) apixaban 5 mg tablet (Eliquis) 5 mg PO BID 04/18/23 11/18/23 diltiazem HCl 240 mg 240 mg PO Q24H 04/18/23 11/18/23 capsule,extended release 24 hr ezetimibe 10 mg tablet 10 mg PO DAILY 04/18/23 11/18/23 ferrous sulfate 325 mg (65 mg 325 mg PO BID 04/18/23 11/18/23 iron) tablet furosemide 40 mg tablet 40 mg PO DAILY 04/18/23 11/18/23 isosorbide mononitrate 30 mg 30 mg PO DAILY 04/18/23 11/18/23 tablet,extended release 24 hr metformin 500 mg tablet 500 mg PO DAILY 04/18/23 11/18/23 pantoprazole 40 mg tablet,delayed 40 mg PO DAILY 04/18/23 11/18/23 release potassium chloride 20 mEq 20 meq PO BID 04/18/23 11/18/23 tablet,extended release rosuvastatin 5 mg tablet 5 mg PO DAILY 04/18/23 11/18/23 metoprolol succinate 25 mg 50 mg PO DAILY 04/28/23 11/18/23 tablet,extended release 24 hr cholecalciferol (vitamin D3) 50 11/18/23 mcg (2,000 unit) capsule semaglutide 0.25 mg or 0.5 mg (2 0.5 mg subcut QWEEK 11/18/23 11/18/23 mg/1.5 mL) subcutaneous pen injector (Ozempic) Previous Rx's ?Medication ?Instructions ?Recorded acetaminophen 325 mg capsule 650 mg (2 x 325 mg) PO .q8 PRN 04/18/23 (Tylenol) pain #20 caps hydrocodone 5 mg-acetaminophen 325 1 tab PO Q6H PRN pain 5 days #20 11/14/23 mg tablet tabs ondansetron 4 mg disintegrating 4 mg PO Q6H PRN nausea and 11/19/23 tablet vomiting #20 tabs Allergies Allergy/AdvReac Type Severity Reaction Status Date / Time morphine Allergy Intermediate Verified 11/18/23 22:36 Review of Systems ROS Narrative A ten point review of systems is negative except as noted above. PFSH PFSH Social History Smoking status: Former smoker Exam Narrative Exam Narrative: Nurses note and vital signs reviewed and patient is not hypoxic. General: The patient appears in no apparent distress. Patient is resting comfortably on cart. Skin: Warm, dry, no pallor noted. There is no rash noted. Head: Normocephalic, atraumatic Eye: Normal conjunctiva, no drainage Ears, Nose, Mouth, and Throat: oral mucosa is moist. Nares patent. Cardiovascular: Regular Rate and Rhythm Respiratory: Patient is in no distress, no accessory muscle use, lungs are clear to auscultation, no wheezing, rales or rhonchi Back: non-tender GI: Minimal tenderness across the upper abdomen. No distention Musculoskeletal: The patient has no evidence of calf tenderness, no pitting edema, symmetrical pulses noted bilaterally Neurological: A&O, normal speech Psychiatric: Cooperative Constitutional Vital Signs, click to edit/add: Last Vital Signs Temp 98.3 F 11/18/23 22:25 Pulse 85 11/18/23 22:25 Resp 20 11/18/23 22:25 BP 153/100 H 11/18/23 22:25 Pulse Ox 98 11/18/23 22:25 O2 Del Method Room Air 11/18/23 22:25 Course Vital Signs Vital signs: Vital Signs Temperature 98.3 F 11/18/23 22:25 Pulse Rate 85 11/18/23 22:25 Respiratory Rate 20 11/18/23 22:25 Blood Pressure 153/100 H 11/18/23 22:25 Pulse Oximetry 98 11/18/23 22:25 Oxygen Delivery Method Room Air 11/18/23 22:25 Temperature 98.3 F 05/02/24 22:25 Pulse Rate 85 11/18/23 22:25 Respiratory Rate 20 11/18/23 22:25 Blood Pressure 153/100 H 11/18/23 22:25 Pulse Oximetry 98 11/18/23 22:25 Oxygen Delivery Method Room Air 11/18/23 22:25 MDM - Nausea/Vomiting/Diarrhea MDM Narrative Medical decision making narrative: Blood work nonspecific. Testing shows presence of norovirus. She was given IV fluids and is able to be discharged home. She was given a work note. Treatment diagnosis and follow-up were discussed with the patient. Differential Diagnosis Differential diagnosis: Likely traveler's diarrhea, food poisoning, gastroenteritis and dehydration Lab Data Attestation: I reviewed the patient's lab results. Labs: Lab Results 11/18/23 11/18/23 Range/Units 22:30 22:54 WBC 12.8 H (4.0-11.0) 10^3/uL RBC 4.95 (4.20-5.40) 10^6/uL Hgb 14.5 (12.0-16.0) g/dL Hct 47.3 (36.0-48.0) % MCV 95.6 (81.0-99.0) fL MCH 29.3 (26.7-34.0) pg MCHC 30.7 (29.9-35.2) g/dL RDW 13.8 (11.0-15.0) % Plt Count 380 (150-450) 10^3/uL MPV 10.8 (9.5-13.5) fL Neut % (Auto) 68.9 (43.0-75.0) % Lymph % (Auto) 23.5 (20.5-60.0) % [place] % (Auto) 6.5 (1.7-12.0) % Eos % (Auto) 0.2 L (0.9-7.0) % Baso % (Auto) 0.4 (0.2-2.0) % Neut # (Auto) 8.9 H (1.4-6.5) 10^3/uL Lymph # (Auto) 3.0 (1.2-3.8) 10^3/uL [place] # (Auto) 0.8 (0.3-0.8) 10^3/uL Eos # (Auto) 0.0 (0.0-0.7) 10^3/uL Baso # (Auto) 0.1 (0.0-0.1) 10^3/uL Abs Immat Gran (auto) 0.06 H (0.00-0.03) 10^3/uL Imm/Tot Granulo (auto) 0.5 (0.0-0.5) % Sodium 135 L (136-145) mmol/L Potassium 4.3 (3.5-5.1) mmol/L Chloride 98 (98-107) mmol/L Carbon Dioxide 24.6 (21.0-32.0) mmol/L Anion Gap 16.7 BUN 17.0 (7.0-18.0) mg/dL Creatinine 0.94 (0.55-1.02) mg/dL Est GFR ( Amer) >60 (>=60) Est GFR (Non-Af Amer) >60 (>=60) BUN/Creatinine Ratio 18.1 Glucose 126 H (74-106) mg/dL Calcium 10.7 H (8.5-10.1) mg/dL Total Bilirubin 1.2 H (0.2-1.0) mg/dL Direct Bilirubin 0.2 (0.0-0.2) mg/dL AST 22 (15-37) U/L ALT 25 (14-59) U/L Alkaline Phosphatase 130 H (46-116) U/L Total Protein 9.6 H (6.4-8.2) g/dL Albumin 4.3 (3.4-5.0) g/dL Globulin 5.3 g/dL Albumin/Globulin Ratio 0.8 Amylase 65 (25-115) U/L Lipase 41.0 (16.0-77.0) U/L Stl C. cayetanensis PCR Not detected (NOT DETECTE) Stool Rotavirus (PCR) Not detected (NOT DETECTE) Stool Adenovirus (PCR) Not detected (NOT DETECTE) Stool Astrovirus (PCR) Not detected (NOT DETECTE) Stool Campylobacter PCR Not detected (NOT DETECTE) Stool Cryptosporidium PCR Not detected (NOT DETECTE) St Sh/Enteroin Ecoli PCR Not detected (NOT DETECTE) Stl Enterotoxigenic E PCR Not detected (NOT DETECTE) Stool EPEC (PCR) Not detected (NOT DETECTE) Stl E. histolytica PCR Not detected (NOT DETECTE) Stool Giardia Lamblia PCR Not detected (NOT DETECTE) Stl P. shigelloides PCR Not detected (NOT DETECTE) Stool Salmonella PCR Not detected (NOT DETECTE) Stool Sapovirus (PCR) Not detected (NOT DETECTE) Stl Shiga-like Tx 1 PCR Not detected (NOT DETECTE) St Y.enterocolitica PCR Not detected (NOT DETECTE) Stl Vibrio cholerae PCR Not detected (NOT DETECTE) Stl Enteroaggr Ecoli PCR Not detected (NOT DETECTE) Stl Norovirus GI/GII PCR Detected A (NOT DETECTE) Specimen Source Stool C. difficile Toxin A&B Not detected (NOT DETECTE) Vibrio Culture Not detected (NOT DETECTE) Discharge Plan Discharge Stand Alone Forms: Portal Instructions Chief Complaint: Nausea/Vomiting/Diarrhea Clinical Impression: Gastroenteritis, Norovirus Patient Disposition: Home, Self-Care Time of Disposition Decision: 00:41 Condition: Good Mode of Transportation: Private Vehicle Prescriptions / Home Meds: New ondansetron 4 mg tablet,disintegrating 4 mg PO Q6H PRN (Reason: nausea and vomiting) Qty: 20 0RF No Action albuterol sulfate [Ventolin HFA] 90 mcg/actuation HFA aerosol inhaler 2 puff INHALATION Q4H PRN (Reason: wheezing) Eliquis 5 mg tablet 5 mg PO BID diltiazem HCl 240 mg capsule,extended release 24hr 240 mg PO Q24H ezetimibe 10 mg tablet 10 mg PO DAILY ferrous sulfate 325 mg (65 mg iron) tablet 325 mg PO BID furosemide 40 mg tablet 40 mg PO DAILY isosorbide mononitrate 30 mg tablet extended release 24 hr 30 mg PO DAILY metformin 500 mg tablet 500 mg PO DAILY pantoprazole 40 mg tablet,delayed release (DR/EC) 40 mg PO DAILY potassium chloride 20 mEq tablet extended release 20 meq PO BID rosuvastatin 5 mg tablet 5 mg PO DAILY acetaminophen [Tylenol] 325 mg capsule 650 mg PO .q8 PRN (Reason: pain) Qty: 20 0RF metoprolol succinate 25 mg tablet extended release 24 hr 50 mg PO DAILY hydrocodone-acetaminophen 5-325 mg tablet 1 tab PO Q6H PRN (Reason: pain) 5 Days Qty: 20 0RF Ozempic 0.25 mg or 0.5 mg(2 mg/1.5 mL) pen injector 0.5 mg subcut QWEEK Rx Instructions: Fridays cholecalciferol (vitamin D3) 50 mcg (2,000 unit) capsule Print Language: Sinhala Instructions: Gastroenteritis (DC), Acute Diarrhea (ED) Referrals: Xavi Ann MD [Primary Care Provider] - 1 week
[2023-11-18 22:59] LABS: Adenovirus F 40/41 NOT DETECTED (NOT DETECTE); Astrovirus NOT DETECTED (NOT DETECTE); Campylobacter NOT DETECTED (NOT DETECTE); Cryptosporidium NOT DETECTED (NOT DETECTE); Cyclospora cayetanensis NOT DETECTED (NOT DETECTE); Entamoeba histolytica NOT DETECTED (NOT DETECTE); Enteroaggregative E.coli NOT DETECTED (NOT DETECTE); Enteropathogenic E.coli NOT DETECTED (NOT DETECTE); Enterotoxigenic E. coli NOT DETECTED (NOT DETECTE); Giardia lamblia NOT DETECTED (NOT DETECTE); Plesiomonas shigelloides NOT DETECTED (NOT DETECTE); Rotavirus A NOT DETECTED (NOT DETECTE); Salmonella NOT DETECTED (NOT DETECTE); Sapovirus NOT DETECTED (NOT DETECTE); Shiga-like toxin-producing E.C NOT DETECTED (NOT DETECTE); Shigella/Enteroinvasive E.coli NOT DETECTED (NOT DETECTE); Vibrio NOT DETECTED (NOT DETECTE); Vibrio cholerae NOT DETECTED (NOT DETECTE); Yersinia enterocolitica NOT DETECTED (NOT DETECTE)
[2023-11-18 23:01] LABS: Basophils Absolute Auto 0.1 10^3/uL (0.0-0.1); Basophils Percent Auto 0.4 % (0.2-2.0); Eosinophils Percent Auto 0.2 % (0.9-7.0); Hematocrit 47.3 % (36.0-48.0); Hemoglobin 14.5 g/dL (12.0-16.0); Immature Granulocytes Abs Auto 0.06 10^3/uL (0.00-0.03); Immature Granulocytes Pct Auto 0.5 % (0.0-0.5); Lymphocytes Percent Auto 23.5 % (20.5-60.0); Mean Corpuscular HGB Conc 30.7 g/dL (29.9-35.2); Mean Corpuscular Hemoglobin 29.3 pg (26.7-34.0); Mean Corpuscular Volume 95.6 fL (81.0-99.0); Mean Platelet Volume 10.8 fL (9.5-13.5); Monocytes Absolute Auto 0.8 10^3/uL (0.3-0.8); Monocytes Percent Auto 6.5 % (1.7-12.0); Neutrophils Absolute Auto 8.9 10^3/uL (1.4-6.5); Neutrophils Percent Auto 68.9 % (43.0-75.0); Platelet Count 380 10^3/uL (150-450); Red Blood Count 4.95 10^6/uL (4.20-5.40); Red Cell Distribution Width 13.8 % (11.0-15.0); White Blood Count 12.8 10^3/uL (4.0-11.0)
[2023-11-18] MEDS: 0.9 % SODIUM CHLORIDE 1,000 ML 1000 ML IV (23:03)
[2023-11-18] MEDS: ONDANSETRON PF 4 MG/2 ML VIAL IV (23:03)
[2023-11-18 23:11] LABS: Anion Gap 16.7; BUN Creatinine Ratio 18.1; Calcium 10.7 mg/dL (8.5-10.1); Carbon Dioxide 24.6 mmol/L (21.0-32.0); Chloride 98 mmol/L (98-107); Estimated GFR (African America >60 (>=60); Estimated GFR (Non-African Ame >60 (>=60); Glucose 126 mg/dL (74-106); Potassium 4.3 mmol/L (3.5-5.1); Sodium 135 mmol/L (136-145)
[2023-11-18 23:32] LABS: Alanine Aminotransferase 25 U/L (14-59); Albumin Globulin Ratio 0.8; Albumin Level 4.3 g/dL (3.4-5.0); Alkaline Phosphatase 130 U/L (46-116); Amylase 65 U/L (25-115); Aspartate Amino Transferase 22 U/L (15-37); Bilirubin Direct 0.2 mg/dL (0.0-0.2); Bilirubin Total 1.2 mg/dL (0.2-1.0); Globulin 5.3 g/dL; Total Protein 9.6 g/dL (6.4-8.2)
[2023-11-18] MEDS: HYDROMORPHONE HCL 0.5 MG/0.5 ML SYRINGE IV (23:53)
[2023-11-19 00:25] LABS: Norovirus GI/GII DETECTED (NOT DETECTE)
[2023-11-19 00:53] VITALS: BP 125/79; PULSE 76; O2SAT 94
== END 2023-11-19 00:58 | disposition home or self-care (01) ==
PROVIDERS: Emergency Provider Emergency Medicine; PCP Family Medicine
DX: Z79.899 Other long term (current) drug therapy (principal); Z79.84 Long term (current) use of oral hypoglycemic drugs; Z87.891 Personal history of nicotine dependence; A08.11 Acute gastroenteropathy due to Norwalk agent
CPT/HCPCS: 36415; 80048; 80076; 82150; 83690; 85025; 87493; 87507; 96361; 96374; 96375; 99284; J1170

== ENCOUNTER 2023-11-23 16:57 | Emergency (ER) | payer OTHER, SELFPAY ==
[2023-11-23 17:25] VITALS: BP 127/91; PULSE 81; TEMP 37.5; O2SAT 96; BMI 34.8
--- OUTSIDE RECORDS SUMMARY | 2023-11-23 17:43 | XMS_ITS | CCD ---
Author Organization [facility] Care Team Providers Care Timber Hewer Name Role Phone ELTAHAWY, EHAB A Admitting Unavailable ADAM BEARAB A Attending Unavailable PHILLIP ANN Referring Unavailable PHILLIP ANN Primary Care Unavailable PHILLIP ANN Referring Unavailable XIAO TORRES Surgeon Unavailable ORLIN HUI Attending Unavailable CALLI PAIGE Admitting Unavailable [place] Procedure Practitioner Unavailab PHILLIP Muñoz Primary Care Unavailable [place] Procedure Practitioner Unavailab Dunia Light Surgeon Unavailsindhu e Phillip Ann Primary Care Physician Juan Miguel SALNIAS Attending Unavailable Phillip Ann Referring Unavailable Juan [...] [morphine] Drug Allergy 9 [facility] Repository (1 source) 88628,00; Translations: [14539,00] Propensity to adverse reactions (disorder) 0 [facility] (1 source) Morphine; Translations: [morphine] Drug Allergy Feeling nervous (finding), Tachycardia (finding) General Surgery Neda (1 source) No Known Medication Allergies; Translations: [No Known Medication Allergies] Propensity to adverse reactions (disorder) [facility] Repository (1 source) dulaglutide; Translations: [DULAGLUTIDE] Drug Allergy 3 [facility] Rep[facility] Medications Current Medications Medication Drug Class(es) Dates Sig (Normalized) Sig (Original) [id number] actuat albuterol 0.09 mg/actuat metered dose [...] disease (1 source) Atherosclerotic heart disease of [place] coronary artery without angina pectoris; Translations: [ASHD SOBOBA CA W/O ANGINA PECTORIS] Onset: 08-11-2022 Chronic [...] Onset: 09-13-2022 Chronic Other aftercare (1 source) group home (current) use of anticoagulants; Translations: [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 - Approval # [id number] approved from 11/05/23 - 01/04/24. Normal [facility] Office Visiton 10-26-2023 Follow-up visit [id number] Cyndi Alvarez 1970 F Date Provider Department Center 10/26/2023 JENNA ABREU TISH Booth Family History Problem Relation Age of Onset Breast cancer Mother Aneurysm Mother Stroke Mother Heart attack Father Coronary artery disease Father Family Status - Relation Status Age at Mother Father Level of Service:49762 [place] OFFICE/OUTPATIENT ESTABLISHED MOD MDM 30 MIN Reason for Visit and Comments: Atrial Flutter [101] Congestive Heart Failure [127] Normal [facility] Office Visiton 05-05-2023 Follow-up visit [id number] Cyndi Alvarez 1970 F Date Provider Department Center 05/05/2023 STACY RODRIGUEZ TISH Booth Family History Problem Relation Age of Onset Breast cancer Mother Aneurysm Mother Stroke Mother Heart attack Father Coronary artery disease Father Family Status - Relation Status Age at Mother Father Level of Service:85970 [place] OFFICE/OUTPATIENT ESTABLISHED MOD MDM 30-39 MIN Normal [facility] Office Visiton 01-27-2023 Follow-up visit [id number] Cyndi Alvarez 1970 F Date Provider Department Center 01/27/2023 Laxmi-STACY VILLALTA [facility] Family History Problem Relation Age of Onset Breast cancer Mother Aneurysm Mother Stroke Mother Heart attack Father Coronary artery disease Father Family Status - Relation Status Age at Mother Father Level of Service:84022 [place] OFFICE/OUTPATIENT ESTABLISHED MOD MDM 30-39 MIN Normal [facility] CBC AUTO DIFFon 10-28-2022 BASO # 0.0 103/ul Normal 0.0-0.1 [facility] Comment on above: Performed By: #### L IPID, CMP, T4, TSH, FT3 #### [facility] [address] [place] [address] Dr. Mendel Herron Basophils/100 WBC (Bld) 0.2 % Normal 0.2-2.0 [facility] Comment on above: Performed By: #### L IPID, CMP, T4, TSH, FT3 #### [facility] [address] [place] [address] Dr. Mendel Herron EO # 0.0 103/ul Normal 0.0-0.7 [facility] Comment on above: Performed By: #### L IPID, CMP, T4, TSH, FT3 #### [facility] [address] [place] [address] Dr. Mendel Herron Eosinophils/100 WBC (Bld) 0.3 % Critically low 0.9-7.0 [facility] Comment on above: Performed By: #### L IPID, CMP, T4, TSH, FT3 #### [facility] [address] [place] [address] Dr. Mendel Herron Erythrocyte distribution width (RBC) [Ratio] 13.6 % Normal 11.0-15.0 [facility] Comment on above: Performed By: #### L IPID, CMP, T4, TSH, FT3 #### [facility] [address] [place] [address] Dr. Mendel Herron Hematocrit (Bld) [Volume fraction] 40.1 % Normal 36.0-48.0 [facility] Comment on above: Performed By: #### L IPID, CMP, T4, TSH, FT3 #### [facility] [address] [place] [address] Dr. Mendel Herron Hemoglobin (Bld) [Mass/Vol] 13.0 g/dL Normal 12.0-16.0 [facility] Comment on above: Performed By: #### L IPID, CMP, T4, TSH, FT3 #### [facility] [address] [place] [address] Dr. Mendel Herron IG # 0.06 10e3/ul Critically high 0.00-0.03 [facility] Comment on above: Performed By: #### L IPID, CMP, T4, TSH, FT3 #### [facility] [address] [place] [address] Dr. Mendel Herron IG % 0.5 % Normal 0.0-0.5 [facility] Comment on above: Performed By: #### L IPID, CMP, T4, TSH, FT3 #### [facility] [address] [place] [address] Dr. Mendel Herron LYMPH # 2.8 103/ul Normal 1.2-3.8 [facility] Comment on above: Performed By: #### L IPID, CMP, T4, TSH, FT3 #### [facility] [address] [place] [address] Dr. Mendel Herron Lymphocytes/100 WBC (Bld) 22.4 % Normal 20.5-60.0 [facility] Comment on above: Performed By: #### L IPID, CMP, T4, TSH, FT3 #### [facility] [address] [place] [address] Dr. Mendel Herron MANUAL DIFF REQ NO Normal [facility] Comment on above: Performed By: #### L IPID, CMP, T4, TSH, FT3 #### [facility] [address] [place] [address] Dr. Mendel Herron MCH (RBC) [Entitic mass] 30.8 pg Normal 26.7-34.0 [facility] Comment on above: Performed By: #### L IPID, CMP, T4, TSH, FT3 #### [facility] [address] [address] [address] Mendel Herron MCHC (RBC) [Mass/Vol] 32.4 g/dL Normal 29.9-35.2 [facility] Comment on above: Performed By: #### L IPID, CMP, T4, TSH, FT3 #### [facility] [address] [place] [address] Dr. Mendel Herron MCV (RBC) [Entitic vol] 95.0 fL Normal 81.0-99.0 [facility] Comment on above: Performed By: #### L IPID, CMP, T4, TSH, FT3 #### [facility] [address] [place] [address] Dr. Mendel Herron MONO # 0.9 103/ul Critically high 0.3-0.[address] [facility] Comment on above: Performed By: #### L IPID, CMP, T4, TSH, FT3 #### [facility] [address] [place] [address] Dr. Mendel Herron Monocytes/100 WBC (Bld) 7.2 % Normal 1.7-12.0 [facility] Comment on above: Performed By: #### L IPID, CMP, T4, TSH, FT3 #### [facility] [address] [place] [address] Dr. Mendel Herron NEUT # 8.6 103/ul Critically high 1.4-6.[address] [facility] Comment on above: Performed By: #### L IPID, CMP, T4, TSH, FT3 #### [facility] [address] [place] [address] Dr. Mendel Herron Neutrophils/100 WBC (Bld) 69.4 % Normal 43.0-75.0 [facility] Comment on above: Performed By: #### L IPID, CMP, T4, TSH, FT3 #### [facility] [address] [place] [address] Dr. Mendel Herron Platelet mean volume (Bld) [Entitic vol] 9.9 fL Normal 9.5-13.5 [facility] Comment on above: Performed By: #### L IPID, CMP, T4, TSH, FT3 #### [facility] [address] [address] [address] Mendel Herron PLT 297 103/ul Normal 150-450 [facility] Comment on above: Performed By: #### L IPID, CMP, T4, TSH, FT3 #### [facility] [address] [address] [address] Mendel Herron RBC 4.22 106/ul Normal 4.20-5.40 [facility] Comment on above: Performed By: #### L IPID, CMP, T4, TSH, FT3 #### [facility] [address] [place] [address] Dr. Mendel Herron WBC 12.4 103/ul Critically high 4.0-11.0 [facility] Comment on above: Performed By: #### L IPID, CMP, T4, TSH, FT3 #### [facility] [address] [place] [address] Dr. Mendel Herron CRPon 10-28-2022 CRP 1.3 mg/dL Critically high <=1.0 [facility] Comment on above: Performed By: #### L IPID, CMP, T4, TSH, FT3 #### [facility] [address] [place] [address] Dr. Mendel Herron PROF CHEM 8 (BAS METB)on Anion gap [Moles/Vol] 13.6 mmol/L Normal [facility] Comment on above: Performed By: #### L IPID, CMP, T4, TSH, FT3 #### [facility] [address] [address] [address] Mendel Herron Calcium [Mass/Vol] 9.3 mg/dL Normal 8.5-10.1 [facility] Comment on above: Performed By: #### L IPID, CMP, T4, TSH, FT3 #### [facility] [address] [place] [address] Dr. Mendel Herron Chloride [Moles/Vol] 102 mmol/L Normal 98-107 [facility] Comment on above: Performed By: #### L IPID, CMP, T4, TSH, FT3 #### [facility] [address] [address] [address] Mendel Herron CO2 [Moles/Vol] 30.7 mmol/L Normal 21.0-32.0 [facility] Comment on above: Performed By: #### L IPID, CMP, T4, TSH, FT3 #### [facility] [address] [address] [address] Mendel Herron Creatinine [Mass/Vol] 0.85 mg/dL Normal 0.55-1.02 [facility] Comment on above: Performed By: #### L IPID, CMP, T4, TSH, FT3 #### [facility] [address] [place] [address] Dr. Mendel Herron EGFR-AF FAROESE >60 Normal >=60 [facility] Comment on above: Performed By: #### L IPID, CMP, T4, TSH, FT3 #### [facility] [address] [address] [address] Mendel Herron EGFR-NON AF FAROESE >60 Normal >=60 [facility] Comment on above: Performed By: #### L IPID, CMP, T4, TSH, FT3 #### [facility] [address] [address] [address] Mendel Herron Glucose [Mass/Vol] 101 mg/dL Normal 74-106 [facility] Comment on above: Performed By: #### L IPID, CMP, T4, TSH, FT3 #### [facility] [address] [address] [address] Mendel Herron Potassium [Moles/Vol] 3.3 mmol/L Critically low 3.5-5.1 [facility] Comment on above: Performed By: #### L IPID, CMP, T4, TSH, FT3 #### [facility] [address] [address] [address] Mendel Herron Sodium [Moles/Vol] 143 mmol/L Normal 136-145 [facility] Comment on above: Performed By: #### L IPID, CMP, T4, TSH, FT3 #### [facility] [address] [address] [address] Mendel Herron Urea nitrogen [Mass/Vol] 12.0 mg/dL Normal 7.0-18.0 [facility] Comment on above: Performed By: #### L IPID, CMP, T4, TSH, FT3 #### [facility] [address] [address] [address] Mendel Herron Urea nitrogen/Creatinine [Mass ratio] 14.1 mg/mg Normal [facility] Comment on above: Performed By: #### L IPID, CMP, T4, TSH, FT3 #### [facility] [address] [address] [address] Mendel Herron URIC ACID SERUMon 10-28-2022 Urate [Mass/Vol] 7.8 mg/dL Critically high 2.6-6.0 [facility] Comment on above: Performed By: #### L IPID, CMP, T4, TSH, FT3 #### [facility] [address] [address] [address] 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 Mendel Herron Consent for Procedure/Surger yon 09-17-2022 Consent for Procedure/Surgery [id number]#1.00CD: 127 Normal [facility] Facesheeton 09-17-2022 Facesheet [id number]#1.00CD: 127 Normal [facility] Pre-Certification Formon Pre-Certification Form [id number]#1.00CD: 127 Normal [facility] Ambulatory Visit Summaryon 0 09-15-2022 Ambulatory [...] Pulmonary HTN Pure hypercholesterolemia RUQ pain Normal [facility] ED Note-Physicianon 09-14-19 ED Note-Physician [id number]: 127 Normal [facility] RAD - MISCon 09-14-2022 RAD - MISC [id number]#1.00CD: 127 Normal [facility] RAD - Ultrasound Reporton RAD - Ultrasound Report [id number]#1.00CD: 127 Normal [facility] CBC AUTO DIFFon 02-22-2023 BASO # 0.1 103/ul Normal 0.0-0.1 [facility] Comment on above: Performed By: #### L IPID, CMP, T4, TSH, FT3 #### [facility] [address] [place] [address] Dr. Mendel Herron Basophils/100 WBC (Bld) 0.7 % Normal 0.2-2.0 [facility] Comment on above: Performed By: #### L IPID, CMP, T4, TSH, FT3 #### [facility] [address] [place] [address] Dr. Mendel Herron EO # 0.1 103/ul Normal 0.0-0.7 [facility] Comment on above: Performed By: #### L IPID, CMP, T4, TSH, FT3 #### [facility] [address] [place] [address] Dr. Mendel Herron Eosinophils/100 WBC (Bld) 0.7 % Critically low 0.9-7.0 [facility] Comment on above: Performed By: #### L IPID, CMP, T4, TSH, FT3 #### [facility] [address] [place] [address] Dr. Mendel Herron Erythrocyte distribution width (RBC) [Ratio] 13.1 % Normal 11.0-15.0 [facility] Comment on above: Performed By: #### L IPID, CMP, T4, TSH, FT3 #### [facility] [address] [place] [address] Dr. Mendel Herron Hematocrit (Bld) [Volume fraction] 43.7 % Normal 36.0-48.0 [facility] Comment on above: Performed By: #### L IPID, CMP, T4, TSH, FT3 #### [facility] [address] [place] [address] Dr. Mendel Herron Hemoglobin (Bld) [Mass/Vol] 14.4 g/dL Normal 12.0-16.0 [facility] Comment on above: Performed By: #### L IPID, CMP, T4, TSH, FT3 #### [facility] [address] [place] [address] Dr. Mendel Herron IG # 0.11 10e3/ul Critically high 0.00-0.03 [facility] Comment on above: Performed By: #### L IPID, CMP, T4, TSH, FT3 #### [facility] [address] [place] [address] Dr. Mendel Herron IG % 1.3 % Critically high 0.0-0.5 [facility] Comment on above: Performed By: #### L IPID, CMP, T4, TSH, FT3 #### [facility] [address] [place] [address] Dr. Mendel Herron LYMPH # 2.4 103/ul Normal 1.2-3.8 [facility] Comment on above: Performed By: #### L IPID, CMP, T4, TSH, FT3 #### [facility] [address] [place] [address] Dr. Mendel Herron Lymphocytes/100 WBC (Bld) 27.9 % Normal 20.5-60.0 [facility] Comment on above: Performed By: #### L IPID, CMP, T4, TSH, FT3 #### [facility] [address] [place] [address] Dr. Mendel Herron MANUAL DIFF REQ NO Normal [facility] Comment on above: Performed By: #### L IPID, CMP, T4, TSH, FT3 #### [facility] [address] [place] [address] Dr. Mendel Herron MCH (RBC) [Entitic mass] 31.0 pg Normal 26.7-34.0 [facility] Comment on above: Performed By: #### L IPID, CMP, T4, TSH, FT3 #### [facility] [address] [place] [address] Dr. Mendel Herron MCHC (RBC) [Mass/Vol] 33.0 g/dL Normal 29.9-35.2 [facility] Comment on above: Performed By: #### L IPID, CMP, T4, TSH, FT3 #### [facility] [address] [place] [address] Dr. Mendel Herron MCV (RBC) [Entitic vol] 94.0 fL Normal 81.0-99.0 [facility] Comment on above: Performed By: #### L IPID, CMP, T4, TSH, FT3 #### [facility] [address] [place] [address] Dr. Mendel Herron MONO # 0.5 103/ul Normal 0.3-0.8 [facility] Comment on above: Performed By: #### L IPID, CMP, T4, TSH, FT3 #### [facility] [address] [place] [address] Dr. Mendel Herron Monocytes/100 WBC (Bld) 6.0 % Normal 1.7-12.0 [facility] Comment on above: Performed By: #### L IPID, CMP, T4, TSH, FT3 #### [facility] [address] [place] [address] Dr. Mendel Herron NEUT # 5.4 103/ul Normal 1.4-6.5 [facility] Comment on above: Performed By: #### L IPID, CMP, T4, TSH, FT3 #### [facility] [address] [place] [address] Dr. Mendel Herron Neutrophils/100 WBC (Bld) 63.4 % Normal 43.0-75.0 [facility] Comment on above: Performed By: #### L IPID, CMP, T4, TSH, FT3 #### [facility] [address] [place] [address] Dr. Mendel Herron Platelet mean volume (Bld) [Entitic vol] 9.8 fL Normal 9.5-13.5 [facility] Comment on above: Performed By: #### L IPID, CMP, T4, TSH, FT3 #### [facility] [address] [place] [address] Dr. Mendel Herron PLT 398 103/ul Normal 150-450 [facility] Comment on above: Performed By: #### L IPID, CMP, T4, TSH, FT3 #### [facility] [address] [place] [address] Dr. Mendel Herron RBC 4.65 106/ul Normal 4.20-5.40 [facility] Comment on above: Performed By: #### L IPID, CMP, T4, TSH, FT3 #### [facility] [address] [address] [address] Mendel Herron WBC 8.6 103/ul Normal 4.0-11.0 [facility] Comment on above: Performed By: #### L IPID, CMP, T4, TSH, FT3 #### [facility] [address] [address] [address] Mendel Herron FREE T3on 09-09-2022 FREE T3 2.59 pg/mlL Normal 2.18-3.98 [facility] Comment on above: Performed By: #### L IPID, CMP, T4, TSH, FT3 #### [facility] [address] [place] [address] Dr. Mendel Herron GLYCOHEMOGLOBIN A1Con 2022 ADA RECOMMENDATION SEE BELOW Normal [facility] Comment on above: Result Comment: ADA RECOMMENDED LIMIT 4.0 - 6.0 ADA THERAPEUTIC TARGET < 7.0 ACTION SUGGESTED > 7.0 Performed By: #### A 1C #### [facility] [address] [place] [address] Dr. Mendel Herron Glucose [Mass/Vol] 120 mg/dL Normal [facility] Comment on above: Performed By: #### A 1C #### [facility] [address] [place] [address] Dr. Mendel Herron HbA1c (Bld) [Mass fraction] 5.8 % Normal 4.5-6.2 [facility] Comment on above: Performed By: #### A 1C #### [facility] [address] [place] [address] Dr. Mendel Herron LIPID PROFILEon 09-09-2022 CHOL-HDL RATIO NORM SEE BELOW Normal [facility] Comment on above: Result Comment: 3.3 - 4.4 LOW RISK 4.4 - 7.1 AVERAGE RISK 7.1 - 11.0 MODERATE RISK >11.0 HIGH RISK Performed By: #### L IPID, CMP, T4, TSH, FT3 #### [facility] [address] [address] [address] Mendel Herron Cholesterol [Mass/Vol] 308 mg/dL Critically high <=200 [facility] Comment on above: Performed By: #### L IPID, CMP, T4, TSH, FT3 #### [facility] [address] [address] [address] Mendel Herron Cholesterol in HDL [Mass/Vol] 46 mg/dL Normal 40-60 [facility] Comment on above: Performed By: #### L IPID, CMP, T4, TSH, FT3 #### [facility] [address] [address] [address] Mendel Herron Cholesterol in LDL [Mass/Vol] 212.6 mg/dL Normal [facility] Comment on above: Performed By: #### L IPID, CMP, T4, TSH, FT3 #### [facility] [address] [address] [address] Mendel Herron Cholesterol.total/C holesterol in HDL [Mass ratio] 6.7 {ratio} Normal [facility] Comment on above: Performed By: #### L IPID, CMP, T4, TSH, FT3 #### [facility] [address] [address] [address] Mendel Herron HDL NORMAL > or = 60 mg/dl - LO W CARDIOVASCULAR RISK <40 mg/dl - HIGH CARDIOVASCULAR RISK Normal [facility] Comment on above: Performed By: #### L IPID, CMP, T4, TSH, FT3 #### [facility] [address] [address] [address] Mendel Herron LDL CALC NORMAL SEE BELOW Normal [facility] Comment on above: Result Comment: <100 mg/dl OPTIMAL 100 - 129 mg/dl NEAR OR ABOVE OPTIMAL 130 - 159 mg/dl BORDERLINE HIGH 160 - 189 mg/dl HIGH >190 mg/dl VERY HIGH Performed By: #### L IPID, CMP, T4, TSH, FT3 #### [facility] [address] [address] [address] Mendel Herron Triglyceride [Mass/Vol] 247 mg/dL Critically high <=150 [facility] Comment on above: Performed By: #### L IPID, CMP, T4, TSH, FT3 #### [facility] [address] [address] [address] Mendel Herron VLDL CALC 49.4 mg/dL Normal [facility] Comment on above: Performed By: #### L IPID, CMP, T4, TSH, FT3 #### [facility] [address] [address] [address] Mendel Herron PROF 14(COMP METB)on 023 Albumin [Mass/Vol] 4.0 g/dL Normal 3.4-5.0 [facility] Comment on above: Performed By: #### L IPID, CMP, T4, TSH, FT3 #### [facility] [address] [place] [address] Dr. Mendel Herron Albumin/Globulin [Mass ratio] 0.9 {ratio} Normal [facility] Comment on above: Performed By: #### L IPID, CMP, T4, TSH, FT3 #### [facility] [address] [place] [address] Dr. Mendel Herron ALP [Catalytic activity/Vol] 115 U/L Normal 46-116 [facility] Comment on above: Performed By: #### L IPID, CMP, T4, TSH, FT3 #### [facility] [address] [address] [address] Mendel Herron ALT [Catalytic activity/Vol] 30 U/L Normal 14-59 [facility] Comment on above: Performed By: #### L IPID, CMP, T4, TSH, FT3 #### [facility] [address] [address] [address] Mendel Herron Anion gap [Moles/Vol] 12.7 mmol/L Normal [facility] Comment on above: Performed By: #### L IPID, CMP, T4, TSH, FT3 #### [facility] [address] [address] [address] Mendel Herron AST [Catalytic activity/Vol] 18 U/L Normal 15-37 [facility] Comment on above: Performed By: #### L IPID, CMP, T4, TSH, FT3 #### [facility] [address] [address] [address] Mendel Herron Bilirubin [Mass/Vol] 0.7 mg/dL Normal 0.2-1.0 [facility] Comment on above: Performed By: #### L IPID, CMP, T4, TSH, FT3 #### [facility] [address] [address] [address] Mendel Herron Calcium [Mass/Vol] 9.7 mg/dL Normal 8.5-10.1 [facility] Comment on above: Performed By: #### L IPID, CMP, T4, TSH, FT3 #### [facility] [address] [place] [address] Dr. Mendel Herron Chloride [Moles/Vol] 103 mmol/L Normal 98-107 [facility] Comment on above: Performed By: #### L IPID, CMP, T4, TSH, FT3 #### [facility] [address] [address] [address] Mendel Herron CO2 [Moles/Vol] 26.5 mmol/L Normal 21.0-32.0 [facility] Comment on above: Performed By: #### L IPID, CMP, T4, TSH, FT3 #### [facility] [address] [place] [address] Dr. Mendel Herron Creatinine [Mass/Vol] 0.83 mg/dL Normal 0.55-1.02 [facility] Comment on above: Performed By: #### L IPID, CMP, T4, TSH, FT3 #### [facility] [address] [place] [address] Dr. Mendel Herron EGFR-AF FAROESE >60 Normal >=60 [facility] Comment on above: Performed By: #### L IPID, CMP, T4, TSH, FT3 #### [facility] [address] [place] [address] Dr. Mendel Herron EGFR-NON AF FAROESE >60 Normal >=60 [facility] Comment on above: Performed By: #### L IPID, CMP, T4, TSH, FT3 #### [facility] [address] [place] [address] Dr. Mendel Herron Globulin (S) [Mass/Vol] 4.4 g/dL Normal [facility] Comment on above: Performed By: #### L IPID, CMP, T4, TSH, FT3 #### [facility] [address] [place] [address] Dr. Mendel Herron Glucose [Mass/Vol] 97 mg/dL Normal 74-106 [facility] Comment on above: Performed By: #### L IPID, CMP, T4, TSH, FT3 #### [facility] [address] [place] [address] Dr. Mendel Herron Potassium [Moles/Vol] 4.2 mmol/L Normal 3.5-5.1 [facility] Comment on above: Performed By: #### L IPID, CMP, T4, TSH, FT3 #### [facility] [address] [place] [address] Dr. Mendel Herron Protein [Mass/Vol] 8.4 g/dL Critically high 6.4-8.2 [facility] Comment on above: Performed By: #### L IPID, CMP, T4, TSH, FT3 #### [facility] [address] [place] [address] Dr. Mendel Herron Sodium [Moles/Vol] 138 mmol/L Normal 136-145 [facility] Comment on above: Performed By: #### L IPID, CMP, T4, TSH, FT3 #### [facility] [address] [place] [address] Dr. Mendel Herron Urea nitrogen [Mass/Vol] 12.0 mg/dL Normal 7.0-18.0 [facility] Comment on above: Performed By: #### L IPID, CMP, T4, TSH, FT3 #### [facility] [address] [place] [address] Dr. Mendel Herron Urea nitrogen/Creatinine [Mass ratio] 14.5 mg/mg Normal [facility] Comment on above: Performed By: #### L IPID, CMP, T4, TSH, FT3 #### [facility] [address] [place] [address] Dr. Mendel Herron T4on 09-09-2022 T4 [Mass/Vol] 8.80 ug/dL Normal 4.80-13.90 [facility] Comment on above: Performed By: #### L IPID, CMP, T4, TSH, FT3 #### [facility] [address] [address] [address] Mendel Herron TSHon 09-09-2022 TSH 0.898 uIU/mL Normal 0.358-3.740 [facility] Comment on above: Performed By: #### L IPID, CMP, T4, TSH, FT3 #### [facility] [address] [place] [address] Dr. Mendel Herron VITAMIN D 25 OHon 09-09-2022 VIT D 25-OH 24.0 ng/mL Normal [facility] Comment on above: Performed By: #### L IPID, CMP, T4, TSH, FT3 #### [facility] [address] [place] [address] Dr. Mendel Herron VIT D RANGES SEE BELOW Normal [facility] Comment on above: Result Comment: <20 ng/mL Vit D deficient 20 - <30 ng/mL Vit D insufficient 30 - 100 ng/mL Vit D sufficient >100 ng/mL Potential Toxicity Performed By: #### L IPID, CMP, T4, TSH, FT3 #### [facility] [address] [place] [address] Dr. Mendel Herron Physician Referralon 023 Physician Referral [phone]: [id number] Normal [facility] NM HEPATOBILIARY SCAN W EFon 08-20-2022 [...] VIVI GARY Date: 2022-08-20 16:07 Normal [facility] US SINGLE QUAD RT UPPERon [...] JEAN LOPES Date: 2022-08-11 15:50 Normal [facility] CARDIAC SUBHA ADMITon 023 CK [Catalytic activity/Vol] 30 U/L Normal 26-192 [facility] Comment on above: Performed By: #### L IPID, CMP, T4, TSH, FT3 #### [facility] [address] [place] [address] Dr. Mendel Herron CK.MB [Mass/Vol] 1.02 ng/mL Normal <=3.60 [facility] Comment on above: Performed By: #### L IPID, CMP, T4, TSH, FT3 #### [facility] [address] [place] [address] Dr. Mendel Herron HSTROP 32.8 pg/mL Normal 4.0-51.3 [facility] Comment on above: Result Comment: CUT- OFF POINTS HAVE BEEN ESTABLISHED BASED ON THE FOURTH UNIVERSAL DEFINITIONS OF MYOCARDIAL INFARCTION. THE UPPER REFERENCE LIMIT (URL) OF TROPONIN, DEFINED THE 99TH PERCENTILE OF cTnI DISTRIBUTION IN A REFERENCE POPULATION, HAS BEEN CONFIRMED THE DECISION THRESHOLD FOR MT DIAGNOSIS. Performed By: #### L IPID, CMP, T4, TSH, FT3 #### [facility] [address] [place] [address] Dr. Mendel Herron SONYA 23 ng/mL Normal 9-82 [facility] Comment on above: Performed By: #### L IPID, CMP, T4, TSH, FT3 #### [facility] [address] [place] [address] Dr. Mendel Herron CBC AUTO DIFFon 08-09-2022 BASO # 0.0 103/ul Normal 0.0-0.1 [facility] Comment on above: Performed By: #### L IPID, CMP, T4, TSH, FT3 #### [facility] [address] [place] [address] Dr. Mendel Herron Basophils/100 WBC (Bld) 0.3 % Normal 0.2-2.0 [facility] Comment on above: Performed By: #### L IPID, CMP, T4, TSH, FT3 #### [facility] [address] [place] [address] Dr. Mendel Herron EO # 0.0 103/ul Normal 0.0-0.7 [facility] Comment on above: Performed By: #### L IPID, CMP, T4, TSH, FT3 #### [facility] [address] [place] [address] Dr. Mendel Herron Eosinophils/100 WBC (Bld) 0.3 % Critically low 0.9-7.0 [facility] Comment on above: Performed By: #### L IPID, CMP, T4, TSH, FT3 #### [facility] [address] [place] [address] Dr. Mendel Herron Erythrocyte distribution width (RBC) [Ratio] 13.1 % Normal 11.0-15.0 [facility] Comment on above: Performed By: #### L IPID, CMP, T4, TSH, FT3 #### [facility] [address] [place] [address] Dr. Mendel Herron Hematocrit (Bld) [Volume fraction] 42.7 % Normal 36.0-48.0 [facility] Comment on above: Performed By: #### L IPID, CMP, T4, TSH, FT3 #### [facility] [address] [place] [address] Dr. Mendel Herron Hemoglobin (Bld) [Mass/Vol] 15.4 g/dL Normal 12.0-16.0 [facility] Comment on above: Performed By: #### L IPID, CMP, T4, TSH, FT3 #### [facility] [address] [place] [address] Dr. Mendel Herron IG # 0.05 10e3/ul Critically high 0.00-0.03 [facility] Comment on above: Performed By: #### L IPID, CMP, T4, TSH, FT3 #### [facility] [address] [place] [address] Dr. Mendel Herron IG % 0.4 % Normal 0.0-0.5 [facility] Comment on above: Performed By: #### L IPID, CMP, T4, TSH, FT3 #### [facility] [address] [place] [address] Dr. Mendel Herron LYMPH # 2.5 103/ul Normal 1.2-3.8 [facility] Comment on above: Performed By: #### L IPID, CMP, T4, TSH, FT3 #### [facility] [address] [place] [address] Dr. Mendel Herron Lymphocytes/100 WBC (Bld) 21.2 % Normal 20.5-60.0 [facility] Comment on above: Performed By: #### L IPID, CMP, T4, TSH, FT3 #### [facility] [address] [place] [address] Dr. Mendel Herron MANUAL DIFF REQ NO Normal [facility] Comment on above: Performed By: #### L IPID, CMP, T4, TSH, FT3 #### [facility] [address] [place] [address] Dr. Mendel Herron MCH (RBC) [Entitic mass] 31.7 pg Normal 26.7-34.0 [facility] Comment on above: Performed By: #### L IPID, CMP, T4, TSH, FT3 #### [facility] [address] [place] [address] Dr. Mendel Herron MCHC (RBC) [Mass/Vol] 36.1 g/dL Critically high 29.9-35.2 [facility] Comment on above: Performed By: #### L IPID, CMP, T4, TSH, FT3 #### [facility] [address] [place] [address] Dr. Mendel Herron MCV (RBC) [Entitic vol] 87.9 fL Normal 81.0-99.0 [facility] Comment on above: Performed By: #### L IPID, CMP, T4, TSH, FT3 #### [facility] [address] [place] [address] Dr. Mendel Herron MONO # 0.7 103/ul Normal 0.3-0.8 [facility] Comment on above: Performed By: #### L IPID, CMP, T4, TSH, FT3 #### [facility] [address] [place] [address] Dr. Mendel Herron Monocytes/100 WBC (Bld) 6.3 % Normal 1.7-12.0 [facility] Comment on above: Performed By: #### L IPID, CMP, T4, TSH, FT3 #### [facility] [address] [place] [address] Dr. Mendel Herron NEUT # 8.4 103/ul Critically high 1.4-6.[address] [facility] Comment on above: Performed By: #### L IPID, CMP, T4, TSH, FT3 #### [facility] [address] [address] [address] Mendel Herron Neutrophils/100 WBC (Bld) 71.5 % Normal 43.0-75.0 [facility] Comment on above: Performed By: #### L IPID, CMP, T4, TSH, FT3 #### [facility] [address] [address] [address] Mendel Herron Platelet mean volume (Bld) [Entitic vol] 9.8 fL Normal 9.5-13.5 [facility] Comment on above: Performed By: #### L IPID, CMP, T4, TSH, FT3 #### [facility] [address] [place] [address] Dr. Mendel Herron PLT 374 103/ul Normal 150-450 [facility] Comment on above: Performed By: #### L IPID, CMP, T4, TSH, FT3 #### [facility] [address] [address] [address] Mendel Herron RBC 4.86 106/ul Normal 4.20-5.40 [facility] Comment on above: Performed By: #### L IPID, CMP, T4, TSH, FT3 #### [facility] [address] [address] [address] Mendel Herron WBC 11.7 103/ul Critically high 4.0-11.0 [facility] Comment on above: Performed By: #### L IPID, CMP, T4, TSH, FT3 #### [facility] [address] [place] [address] HEAD WO CONon [...] HELLEN VELAZQUEZ Date: 2022-08-09 15:23 Normal [facility] Covid-19 PCR ([facility])on 07-20 SARS-CoV-2 (COVID-19) RNA DEIRDRE+probe Ql (Unsp spec) Not detected Normal NOT DETECTED [facility] Comment on above: Result Comment: When [...] for this test is supported by the I[employer]igation [employer] Operator of Health and Human Service's declaration [...] L IPID, CMP, T4, TSH, FT3 #### [facility] [address] [place] [address] Dr. Mendel Herron ER URINE PROFILEon 3 Bilirubin Ql (U) Negative Normal NEGATIVE [facility] Comment on above: Performed By: #### L IPID, CMP, T4, TSH, FT3 #### [facility] [address] [address] [address] Mendel Herron Clarity (U) CLEAR Normal CLEAR [facility] Comment on above: Performed By: #### L IPID, CMP, T4, TSH, FT3 #### [facility] [address] [place] [address] Dr. Mendel Herron Color (U) LT. YELLOW Normal YELLOW [facility] Comment on above: Performed By: #### L IPID, CMP, T4, TSH, FT3 #### [facility] [address] [place] [address] Dr. Mendel Herron ERUAHD A micrscopic examina tion will be performed if indicated. Normal [facility] Comment on above: Performed By: #### L IPID, CMP, T4, TSH, FT3 #### [facility] [address] [place] [address] Dr. Mendel Herron Glucose Ql (U) Negative Normal NEGATIVE [facility] Comment on above: Performed By: #### L IPID, CMP, T4, TSH, FT3 #### [facility] [address] [place] [address] Dr. Mendel Herron Hemoglobin Ql (U) TRACE-INTACT Abnormal NEGATIVE [facility] Comment on above: Performed By: #### L IPID, CMP, T4, TSH, FT3 #### [facility] [address] [place] [address] Dr. Mendel Herron Ketones Ql (U) Negative Normal NEGATIVE [facility] Comment on above: Performed By: #### L IPID, CMP, T4, TSH, FT3 #### [facility] [address] [place] [address] Dr. Mendel Herron LEUKOCYTES Negative Normal NEGATIVE [facility] Comment on above: Performed By: #### L IPID, CMP, T4, TSH, FT3 #### [facility] [address] [place] [address] Dr. Mendel Herron Nitrite Ql (U) Negative Normal NEGATIVE [facility] Comment on above: Performed By: #### L IPID, CMP, T4, TSH, FT3 #### [facility] [address] [place] [address] Dr. Mendel Herron pH (U) 5.0 [pH] Normal 5-9 [facility] Comment on above: Performed By: #### L IPID, CMP, T4, TSH, FT3 #### [facility] [address] [place] [address] Dr. Mendel Herron SPEC GRAVITY 1.015 Normal 1.005-<=1.02 5 [facility] Comment on above: Performed By: #### L IPID, CMP, T4, TSH, FT3 #### [facility] [address] [place] [address] Dr. Mendel Herron UA PROTEIN Negative Normal NEGATIVE/ TRACE [facility] Comment on above: Performed By: #### L IPID, CMP, T4, TSH, FT3 #### [facility] [address] [place] [address] Dr. Mendel Herron UR MICRO IND INDICATED Normal [facility] Comment on above: Performed By: #### L IPID, CMP, T4, TSH, FT3 #### [facility] [address] [place] [address] Dr. Mendel Herron Urobilinogen Qn (U) 0.2 {James'U}/dL Normal 0.2 - 1. 0 [facility] Comment on above: Performed By: #### L IPID, CMP, T4, TSH, FT3 #### [facility] [address] [place] [address] Dr. Mendel Herron LIPASEon 08-09-2022 Lipase [Catalytic activity/Vol] 114.0 U/L Normal 73.0-393.0 [facility] Comment on above: Performed By: #### L IPA, BMP, CMADM #### [facility] [address] [place] [address] Dr. Mendel Herron PROF CHEM 8 (BAS METB)on Anion gap [Moles/Vol] 18.9 mmol/L Normal [facility] Comment on above: Performed By: #### L IPA, BMP, CMADM #### [facility] [address] [place] [address] Dr. Mendel Herron Calcium [Mass/Vol] 9.4 mg/dL Normal 8.5-10.1 [facility] Comment on above: Performed By: #### L IPA, BMP, CMADM #### [facility] [address] [address] [address] Mendel Herron Chloride [Moles/Vol] 97 mmol/L Critically low 98-107 [facility] Comment on above: Performed By: #### L IPA, BMP, CMADM #### [facility] [address] [place] [address] Dr. Mendel Herron CO2 [Moles/Vol] 26.0 mmol/L Normal 21.0-32.0 [facility] Comment on above: Performed By: #### L IPA, BMP, CMADM #### [facility] [address] [place] [address] Dr. Mendel Herron Creatinine [Mass/Vol] 0.85 mg/dL Normal 0.55-1.02 [facility] Comment on above: Performed By: #### L IPA, BMP, CMADM #### [facility] [address] [place] [address] Dr. Mendel Herron EGFR-AF FAROESE >60 Normal >=60 [facility] Comment on above: Performed By: #### L IPA, BMP, CMADM #### [facility] [address] [place] [address] Dr. Mendel Herron EGFR-NON AF FAROESE >60 Normal >=60 [facility] Comment on above: Performed By: #### L IPA, BMP, CMADM #### [facility] [address] [address] [address] Mendel Herron Glucose [Mass/Vol] 120 mg/dL Critically high 74-106 [facility] Comment on above: Performed By: #### L IPA, BMP, CMADM #### [facility] [address] [place] [address] Dr. Mendel Herron Potassium [Moles/Vol] 3.9 mmol/L Normal 3.5-5.1 [facility] Comment on above: Performed By: #### L IPA, BMP, CMADM #### [facility] [address] [place], [place] [id number] Dr. Mendel Herron Sodium [Moles/Vol] 138 mmol/L Normal 136-145 [facility] Comment on above: Performed By: #### L IPA, BMP, CMADM #### [facility] [address] [place] [address] Dr. Mendel Herron Urea nitrogen [Mass/Vol] 17.0 mg/dL Normal 7.0-18.0 [facility] Comment on above: Performed By: #### L IPA, BMP, CMADM #### [facility] [address] [place] [address] Dr. Mendel Herron Urea nitrogen/Creatinine [Mass ratio] 20.0 mg/mg Normal [facility] Comment on above: Performed By: #### L IPA, BMP, CMADM #### [facility] [address] [place] [address] Dr. Mendel Herron TROPONIN, HIGH SENSITIVITYon 08-09-2022 HSTROP 32.5 pg/mL Normal 4.0-51.3 [facility] Comment on above: Result Comment: CUT- OFF POINTS HAVE BEEN ESTABLISHED BASED ON THE FOURTH UNIVERSAL DEFINITIONS OF MYOCARDIAL INFARCTION. THE UPPER REFERENCE LIMIT (URL) OF TROPONIN, DEFINED THE 99TH PERCENTILE OF cTnI DISTRIBUTION IN A REFERENCE POPULATION, HAS BEEN CONFIRMED THE DECISION THRESHOLD FOR MT DIAGNOSIS. Performed By: #### L IPID, CMP, T4, TSH, FT3 #### [facility] [address] [place] [address] Dr. Mendel Herron URINE MICROSCOPIC ONLYon BACTERIA NONE SEEN Normal NONE SEEN [facility] Comment on above: Performed By: #### L IPID, CMP, T4, TSH, FT3 #### [facility] [address] [place] [address] Dr. Mendel Herron Bacteria identified Cx Nom (U) NOT INDICATED Normal [facility] Comment on above: Performed By: #### L IPID, CMP, T4, TSH, FT3 #### [facility] [address] [place] [address] Dr. Mendel Herron CAST NONE SEEN Normal NONE SEEN [facility] Comment on above: Performed By: #### L IPID, CMP, T4, TSH, FT3 #### [facility] [address] [address] [address] Mendel Herron Crystals LM Nom (Urine sed) NONE SEEN Normal NONE SEEN [facility] Comment on above: Performed By: #### L IPID, CMP, T4, TSH, FT3 #### [facility] [address] [address] [address] Mendel Herron Epithelial cells LM Ql (Urine sed) NONE SEEN Normal NONE SEEN /RARE [facility] Comment on above: Performed By: #### L IPID, CMP, T4, TSH, FT3 #### [facility] [address] [address] [address] Mendel Herron MUCOUS NONE SEEN Normal NONE SEEN [facility] Comment on above: Performed By: #### L IPID, CMP, T4, TSH, FT3 #### [facility] [address] [address] [address] Mendel Herron RBC 0-2 Normal 0-2 [facility] Comment on above: Performed By: #### L IPID, CMP, T4, TSH, FT3 #### [facility] [address] [address] [address] Mendel Herron WBC NONE SEEN Normal NONE SEEN [facility] Comment on above: Performed By: #### L IPID, CMP, T4, TSH, FT3 #### [facility] [address] [id number] [address] Mendel Herron XR CHEST 1 Von [...] MARY DIETZ Date: 2022-08-09 15:18 Normal [facility] H PYLORI ANTIBODY IGGon 07-20 H. PYLORI IGG ABS 0.11 Index Value Normal 0.00-0.79 [facility] Comment on above: Result Comment: Nega tive <0.80 Equivocal 0.80 - 0.89 Positive >0.89 Performed By: #### L IPID, CMP, T4, TSH, FT3 #### [facility] [address] [place] [address] Dr. Mendel Herron AMYLASEon 08-06-2022 Amylase [Catalytic activity/Vol] 57 U/L Normal 25-115 [facility] Comment on above: Performed By: #### L IPID, CMP, T4, TSH, FT3 #### [facility] [address] [place] [address] Dr. Mendel Herron CBC AUTO DIFFon 08-06-2022 BASO # 0.1 103/ul Normal 0.0-0.1 [facility] Comment on above: Performed By: #### L IPID, CMP, T4, TSH, FT3 #### [facility] [address] [place] [address] Dr. Mendel Herron Basophils/100 WBC (Bld) 0.7 % Normal 0.2-2.0 [facility] Comment on above: Performed By: #### L IPID, CMP, T4, TSH, FT3 #### [facility] [address] [place] [address] Dr. Mendel Herron EO # 0.1 103/ul Normal 0.0-0.7 [facility] Comment on above: Performed By: #### L IPID, CMP, T4, TSH, FT3 #### [facility] [address] [place] [address] Dr. Mendel Herron Eosinophils/100 WBC (Bld) 0.5 % Critically low 0.9-7.0 [facility] Comment on above: Performed By: #### L IPID, CMP, T4, TSH, FT3 #### [facility] [address] [place] [address] Dr. Mendel Herron Erythrocyte distribution width (RBC) [Ratio] 13.7 % Normal 11.0-15.0 [facility] Comment on above: Performed By: #### L IPID, CMP, T4, TSH, FT3 #### [facility] [address] [place] [address] Dr. Mendel Herron Hematocrit (Bld) [Volume fraction] 46.2 % Normal 36.0-48.0 [facility] Comment on above: Performed By: #### L IPID, CMP, T4, TSH, FT3 #### [facility] [address] [place] [address] Dr. Mendel Herron Hemoglobin (Bld) [Mass/Vol] 15.1 g/dL Normal 12.0-16.0 [facility] Comment on above: Performed By: #### L IPID, CMP, T4, TSH, FT3 #### [facility] [address] [place] [address] Dr. Mendel Herron IG # 0.06 10e3/ul Critically high 0.00-0.03 [facility] Comment on above: Performed By: #### L IPID, CMP, T4, TSH, FT3 #### [facility] [address] [place] [address] Dr. Mendel Herron IG % 0.6 % Critically high 0.0-0.5 [facility] Comment on above: Performed By: #### L IPID, CMP, T4, TSH, FT3 #### [facility] [address] [place] [address] Dr. Mendel Herron LYMPH # 2.5 103/ul Normal 1.2-3.8 [facility] Comment on above: Performed By: #### L IPID, CMP, T4, TSH, FT3 #### [facility] [address] [place] [address] Dr. Mendel Herron Lymphocytes/100 WBC (Bld) 23.4 % Normal 20.5-60.0 [facility] Comment on above: Performed By: #### L IPID, CMP, T4, TSH, FT3 #### [facility] [address] [place] [address] Dr. Mendel Herron MANUAL DIFF REQ NO Normal [facility] Comment on above: Performed By: #### L IPID, CMP, T4, TSH, FT3 #### [facility] [address] [place] [address] Dr. Mendel Herron MCH (RBC) [Entitic mass] 31.4 pg Normal 26.7-34.0 [facility] Comment on above: Performed By: #### L IPID, CMP, T4, TSH, FT3 #### [facility] [address] [place] [address] Dr. Mendel Herron MCHC (RBC) [Mass/Vol] 32.7 g/dL Normal 29.9-35.2 [facility] Comment on above: Performed By: #### L IPID, CMP, T4, TSH, FT3 #### [facility] [address] [place] [address] Dr. Mendel Herron MCV (RBC) [Entitic vol] 96.0 fL Normal 81.0-99.0 [facility] Comment on above: Performed By: #### L IPID, CMP, T4, TSH, FT3 #### [facility] [address] [place] [address] Dr. Mendel Herron MONO # 0.6 103/ul Normal 0.3-0.8 [facility] Comment on above: Performed By: #### L IPID, CMP, T4, TSH, FT3 #### [facility] [address] [place] [address] Dr. Mendel Herron Monocytes/100 WBC (Bld) 6.0 % Normal 1.7-12.0 [facility] Comment on above: Performed By: #### L IPID, CMP, T4, TSH, FT3 #### [facility] [address] [place] [address] Dr. Mendel Herron NEUT # 7.4 103/ul Critically high 1.4-6.[address] [facility] Comment on above: Performed By: #### L IPID, CMP, T4, TSH, FT3 #### [facility] [address] [place] [address] Dr. Mendel Herron Neutrophils/100 WBC (Bld) 68.8 % Normal 43.0-75.0 [facility] Comment on above: Performed By: #### L IPID, CMP, T4, TSH, FT3 #### [facility] [address] [address] [address] Mendel Herron Platelet mean volume (Bld) [Entitic vol] 9.7 fL Normal 9.5-13.5 [facility] Comment on above: Performed By: #### L IPID, CMP, T4, TSH, FT3 #### [facility] [address] [address] [address] Mendel Herron PLT 331 103/ul Normal 150-450 [facility] Comment on above: Performed By: #### L IPID, CMP, T4, TSH, FT3 #### [facility] [address] [address] [address] Mendel Herron RBC 4.81 106/ul Normal 4.20-5.40 [facility] Comment on above: Performed By: #### L IPID, CMP, T4, TSH, FT3 #### [facility] [address] [address] [address] Mendel Herron WBC 10.7 103/ul Normal 4.0-11.0 [facility] Comment on above: Performed By: #### L IPID, CMP, T4, TSH, FT3 #### [facility] [address] HEAD WO CONon [...] JEAN LOPES Date: 2022-08-06 08:39 Normal [facility] LIPASEon 01-19-2023 Lipase [Catalytic activity/Vol] 125.0 U/L Normal 73.0-393.0 [facility] Comment on above: Performed By: #### L IPID, CMP, T4, TSH, FT3 #### [facility] [address] [address] [address] Mendel Herron PROF 14(COMP METB)on 023 Albumin [Mass/Vol] 3.7 g/dL Normal 3.4-5.0 [facility] Comment on above: Performed By: #### L IPID, CMP, T4, TSH, FT3 #### [facility] [address] [place] [address] Dr. Mendel Herron Albumin/Globulin [Mass ratio] 0.9 {ratio} Normal [facility] Comment on above: Performed By: #### L IPID, CMP, T4, TSH, FT3 #### [facility] [address] [place] [address] Dr. Mendel Herron ALP [Catalytic activity/Vol] 110 U/L Normal 46-116 [facility] Comment on above: Performed By: #### L IPID, CMP, T4, TSH, FT3 #### [facility] [address] [place] [address] Dr. Mendel Herron ALT [Catalytic activity/Vol] 25 U/L Normal 14-59 [facility] Comment on above: Performed By: #### L IPID, CMP, T4, TSH, FT3 #### [facility] [address] [address] [address] Mendel Herron Anion gap [Moles/Vol] 14.0 mmol/L Normal [facility] Comment on above: Performed By: #### L IPID, CMP, T4, TSH, FT3 #### [facility] [address] [place] [address] Dr. Mendel Herron AST [Catalytic activity/Vol] 16 U/L Normal 15-37 [facility] Comment on above: Performed By: #### L IPID, CMP, T4, TSH, FT3 #### [facility] [address] [place] [address] Dr. Mednel Herron Bilirubin [Mass/Vol] 0.6 mg/dL Normal 0.2-1.0 [facility] Comment on above: Performed By: #### L IPID, CMP, T4, TSH, FT3 #### [facility] [address] [address] [address] Mendel Herron Calcium [Mass/Vol] 9.3 mg/dL Normal 8.5-10.1 [facility] Comment on above: Performed By: #### L IPID, CMP, T4, TSH, FT3 #### [facility] [address] [address] [address] Mendel Herron Chloride [Moles/Vol] 103 mmol/L Normal 98-107 [facility] Comment on above: Performed By: #### L IPID, CMP, T4, TSH, FT3 #### [facility] [address] [place] [address] Dr. Mendel Herron CO2 [Moles/Vol] 27.3 mmol/L Normal 21.0-32.0 [facility] Comment on above: Performed By: #### L IPID, CMP, T4, TSH, FT3 #### [facility] [address] [address] [address] Mendel Herron Creatinine [Mass/Vol] 0.71 mg/dL Normal 0.55-1.02 [facility] Comment on above: Performed By: #### L IPID, CMP, T4, TSH, FT3 #### [facility] [address] [place] [address] Dr. Mendel Herron EGFR-AF FAROESE >60 Normal >=60 [facility] Comment on above: Performed By: #### L IPID, CMP, T4, TSH, FT3 #### [facility] [address] [address] [address] Mendel Herron EGFR-NON AF FAROESE >60 Normal >=60 [facility] Comment on above: Performed By: #### L IPID, CMP, T4, TSH, FT3 #### [facility] [address] [address] [address] Mendel Herron Globulin (S) [Mass/Vol] 4.3 g/dL Normal [facility] Comment on above: Performed By: #### L IPID, CMP, T4, TSH, FT3 #### [facility] [address] [address] [address] Mendel Herron Glucose [Mass/Vol] 102 mg/dL Normal 74-106 [facility] Comment on above: Performed By: #### L IPID, CMP, T4, TSH, FT3 #### [facility] [address] [address] [address] Mendel Herron Potassium [Moles/Vol] 4.3 mmol/L Normal 3.5-5.1 [facility] Comment on above: Performed By: #### L IPID, CMP, T4, TSH, FT3 #### [facility] [address] [place] [address] Dr. Mendel Herron Protein [Mass/Vol] 8.0 g/dL Normal 6.4-8.2 [facility] Comment on above: Performed By: #### L IPID, CMP, T4, TSH, FT3 #### [facility] [address] [address] [address] Mendel Herron Sodium [Moles/Vol] 140 mmol/L Normal 136-145 [facility] Comment on above: Performed By: #### L IPID, CMP, T4, TSH, FT3 #### [facility] [address] [place] [address] Dr. Mendel Herron Urea nitrogen [Mass/Vol] 19.0 mg/dL Critically high 7.0-18.0 [facility] Comment on above: Performed By: #### L IPID, CMP, T4, TSH, FT3 #### [facility] [address] [address] [address] Mendel Herron Urea nitrogen/Creatinine [Mass ratio] 26.8 mg/mg Normal [facility] Comment on above: Performed By: #### L IPID, CMP, T4, TSH, FT3 #### [facility] [address] [place] [address] Dr. Mendel Herron Covid-19 PCR ([facility])on 06-19 SARS-CoV-2 (COVID-19) RNA DEIRDRE+probe Ql (Unsp spec) Not detected Normal NOT DETECTED [facility] Comment on above: Result Comment: This test is not yet approved or cleared by the [place] FDA. When there are no FDA-approved or cleared tests available, and other criteria are met, FDA can make tests available under an emergency access mechanism called an Emergency Use Authorization (EUA). The EUA for this test is supported by the Irrigation System Operator of Health and Human Service's (HHS's) [...] SARS-CoV-2. Performed By: #### C VDTBH #### [facility] [address] [place] [address] Dr. Mendel Herron INFLUENZA A AND B AGon 07-16 [facility] SEE BELOW Normal [facility] Comment on above: Result Comment: Nega tive for Flu A protein angiten. Infection due to Flu A cannot be ruled out. Flu A angiten in the sample may be below the detection limit of the test. Performed By: #### L IPID, CMP, T4, TSH, FT3 #### [facility] [address] [address] [address] [facility] Normal [facility] Comment on above: Result Comment: Nega tive for Flu B protein antigen. Infection due to Flu B cannot be ruled out. Flu B antigen in the sample may be below the detection limit of the test. Performed By: #### L IPID, CMP, T4, TSH, FT3 #### [facility] [address] [place] [address] Dr. Mendel Herron INFLUENZA A AG Negative Normal NEGATIVE SEE COMMENT [facility] Comment on above: Performed By: #### L IPID, CMP, T4, TSH, FT3 #### [facility] [address] [place], [place] [address] Dr. Mendel Herron INFLUENZA B AG Negative Normal NEGATIVE SEE COMMENT [facility] Comment on above: Performed By: #### L IPID, CMP, T4, TSH, FT3 #### [facility] [address] [place], [place] [address] Dr. Mendel Herron Covid-19 PCR ([facility])on 04-19 SARS-CoV-2 (COVID-19) RNA DEIRDRE+probe Ql (Unsp spec) Not detected Normal NOT DETECTED [facility] Comment on above: Result Comment: This test is not yet approved or cleared by the [place] FDA. When there are no FDA-approved or cleared tests available, and other criteria are met, FDA can make tests available under an emergency access mechanism called an Emergency Use Authorization (EUA). The EUA for this test is supported by the [place] of Health and Human Service's (HHS's) declaration [...] L IPID, CMP, T4, TSH, FT3 #### [facility] [address] [place], [place] [address] Dr. Mendel Herron INFLUENZA A AND B AGon 05-11 [facility] SEE BELOW Normal [facility] Comment on above: Result Comment: Nega tive for Flu A protein angiten. Infection due to Flu A cannot be ruled out. Flu A angiten in the sample may be below the detection limit of the test. Performed By: #### L IPID, CMP, T4, TSH, FT3 #### [facility] [address] [address] [address] Mend[facility] Herr[facility] SEE BEL[facility] Normal [facility] Comment on above: Result Comment: Nega tive for Flu B protein antigen. Infection due to Flu B cannot be ruled out. Flu B antigen in the sample may be below the detection limit of the test. Performed By: #### L IPID, CMP, T4, TSH, FT3 #### [facility] [address] [address] [address] Mendel Herron INFLUENZA A AG Negative Normal NEGATIVE SEE COMMENT [facility] Comment on above: Performed By: #### L IPID, CMP, T4, TSH, FT3 #### [facility] [address] [address] [address] Mendel Herron INFLUENZA B AG Negative Normal NEGATIVE SEE COMMENT [facility] Comment on above: Performed By: #### L IPID, CMP, T4, TSH, FT3 #### [facility] [address] [place] [address] Dr. Mendel Herron INTERNAL CONTROLS Within Normal Limits Normal Wi thin Normal Limits [facility] Comment on above: Performed By: #### L IPID, CMP, T4, TSH, FT3 #### [facility] [address] [address] [address] Mendel Herron Comprehensive Metabolic Empo n 12-23-2021 Albumin [Mass/Vol] 3.7 g/dL Normal 3.2-5.5 [facility] Comment on above: Performed By: #### E BS CMP, EBS LIPID #### [facility] [address] Albumin/Globulin [Mass ratio] 1.0 {ratio} Normal [facility] Comment on above: Performed By: #### E BS CMP, EBS LIPID #### [facility] [address] [place] [address] [place] ALP [Catalytic activity/Vol] 159 U/L High 32-92 [facility] Comment on above: Performed By: #### E BS CMP, EBS LIPID #### [facility] [address] [id number] [place] ALT [Catalytic activity/Vol] 28 U/L Normal 10-60 [facility] Comment on above: Performed By: #### E BS CMP, EBS LIPID #### [facility] [address] [place] [address] [place] AST [Catalytic activity/Vol] 27 U/L Normal 10-42 [facility] Comment on above: Performed By: #### E BS CMP, EBS LIPID #### [facility] [address] [place] [address] [place] Bilirubin [Mass/Vol] 1.2 mg/dL Normal 0.3-1.2 [facility] Comment on above: Performed By: #### E BS CMP, EBS LIPID #### [facility] [address] Calcium [Mass/Vol] 9.2 mg/dL Normal 8.2-10.2 [facility] Comment on above: Performed By: #### E BS CMP, EBS LIPID #### [facility] [address] [place] [address] [place] Chloride [Moles/Vol] 100 mmol/L Normal 95-114 [facility] Comment on above: Performed By: #### E BS CMP, EBS LIPID #### [facility] [address] [place] [address] [place] CO2 [Moles/Vol] 20.6 mmol/L Low 22.0-30.0 [facility] Comment on above: Performed By: #### E BS CMP, EBS LIPID #### [facility] [address] [place] [address] [place] Creatinine [Mass/Vol] 0.57 mg/dL Normal 0.44-1.03 [facility] Comment on above: Performed By: #### E BS CMP, EBS LIPID #### [facility] [address] [place] [address] [place] Estimated GFR ( Ni > 60 Normal [facility] Comment on above: Result Comment: GFR estimated reference range: According to KDOQI guidelines, <60 ml/min/1.73m2 is sufficient to diagnose a patient with chronic kidney disease. Performed By: #### E BS CMP, EBS LIPID #### [facility] [address] [place] [address] Estimated GFR (Non- Am > 60 Normal [facility] Comment on above: Performed By: #### E BS CMP, EBS LIPID #### [facility] [address] Globulin (S) [Mass/Vol] 3.7 g/dL Normal [facility] Comment on above: Performed By: #### E BS CMP, EBS LIPID #### [address] Glucose [Mass/Vol] 100 mg/dL Normal 70-100 [facility] Comment on above: Performed By: #### E BS CMP, EBS LIPID #### [address] Potassium [Moles/Vol] 3.9 mmol/L Normal 3.5-5.1 [facility] Comment on above: Performed By: #### E BS CMP, EBS LIPID #### [address] Protein [Mass/Vol] 7.4 g/dL Normal 6.1-7.9 [facility] Comment on above: Performed By: #### E BS CMP, EBS LIPID #### [address] Sodium [Moles/Vol] 135 mmol/L Low 136-146 [facility] Comment on above: Performed By: #### E BS CMP, EBS LIPID #### [facility] [address] [place] [address] Urea nitrogen [Mass/Vol] 12 mg/dL Normal 9-23 [facility] Comment on above: Performed By: #### E BS CMP, EBS LIPID #### [facility] [address] [place] [address] Lipid Profileon 12-23-2021 Cholesterol [Mass/Vol] 213 mg/dL High 140-200 [facility] Comment on above: Result Comment: Chol less than 200 mg/dl low risk Chol 201-239 mg/dl borderline risk Chol 240 mg/dl and greater high risk Performed By: #### E BS CMP, EBS LIPID #### [facility] [address] Cholesterol in HDL [Mass/Vol] 36 mg/dL Normal 35-85 [facility] Comment on above: Result Comment: HDL CHOL ATP-III CLASSIFICATION Cardiovascular Risk HDL > or equal to 60 mg/dL LOW HDL < 40 mg/dL HIGH Performed By: #### E BS CMP, EBS LIPID #### [facility] [address] Cholesterol.total/C holesterol in HDL [Mass ratio] 5.9 {ratio} Normal <5.0 [facility] Comment on above: Result Comment: PERF ORMED BY: [place] [address] PATHOLOGIST BRICK STACKER MARIBEL AGUILLON M.D. Performed By: #### E BS CMP, EBS LIPID #### [address] LDL Cholesterol,Calcula lizbet 151 mg/dL High 0-100 [facility] Comment on above: Result Comment: LDL ATP III CLASSIFICATION LDL less than 100 mg/dL Optimal LDL 100-129 mg/dL Near or above optimal LDL 130-159 mg/dL Borderline high LDL 160-189 mg/dL High LDL greater than 189 mg/dL Very high Performed By: #### E BS CMP, EBS LIPID #### [address] Triglyceride w/Reflex 129 mg/dL Normal 35-149 [facility] Comment on above: Result Comment: TRIG ATP III CLASSIFICATION TRIG less than 150 mg/dL Normal TRIG 150-199 mg/dL Borderline high TRIG 200-500 mg/dL High TRIG greater than 500 mg/dL Very high Standard traceable to the Center for Disease Conrtrol and Prevention (CDC) test method. Performed By: #### E BS CMP, EBS LIPID #### [facility] [address] VLDL CHOLESTEROL 25 mg/dL Normal [facility] Comment on above: Performed By: #### E BS CMP, EBS LIPID #### [facility] [address] Covid-19 PCR ([facility])on 11-16 SARS-CoV-2 (COVID-19) RNA DEIRDRE+probe Ql (Unsp spec) Detected Critically abnormal NOT DETECTED [facility] Comment on above: Result Comment: This test is not yet approved or cleared by the [place] FDA. When there are no FDA-approved or cleared tests available, and other criteria are met, FDA can make tests available under an emergency access mechanism called an Emergency Use Authorization (EUA). The EUA for this test is supported by the Irrigation System Operator of Health and Human Service's declaration [...] used). Performed By: #### C VDTBH #### [facility] [address] [place] [address] Dr. Mendel Herron INFLUENZA A AND B AGon 12-02 [facility] SEE BELOW Normal [facility] Comment on above: Result Comment: Nega tive for Flu A protein angiten. Infection due to Flu A cannot be ruled out. Flu A angiten in the sample may be below the detection limit of the test. Performed By: #### L IPID, CMP, T4, TSH, FT3 #### [facility] [address] [place] [address] Dr. Mendel Herron INFLUBNEG SEE BELOW Normal [facility] Comment on above: Result Comment: Nega tive for Flu B protein antigen. Infection due to Flu B cannot be ruled out. Flu B antigen in the sample may be below the detection limit of the test. Performed By: #### L IPID, CMP, T4, TSH, FT3 #### [facility] [address] [place] [address] Dr. Mendel Herron INFLUENZA A AG Negative Normal NEGATIVE SEE COMMENT [facility] Comment on above: Performed By: #### L IPID, CMP, T4, TSH, FT3 #### [facility] [address] [place] [address] Dr. Mendel Herron INFLUENZA B AG Negative Normal NEGATIVE SEE COMMENT [facility] Comment on above: Performed By: #### L IPID, CMP, T4, TSH, FT3 #### [facility] [address] [place], [place] [address] Dr. Mendel Herron INTERNAL CONTROLS Within Normal Limits Normal Wi thin Normal Limits [facility] Comment on above: Performed By: #### L IPID, CMP, T4, TSH, FT3 #### [facility] [address] [place], [place] [address] Dr. Mendel Herron Cardiovascular Lab Reporton 08-18-2021 Cardiovascular Lab Report [facility] Patient Name: [facility] S MR #: [id number] Department of Physician: Curtis Martinez MD Medicine Service Date: 08/18/2021 Division of Birthdate: 1970 Cardiology Room #: [facility] Cardiovascular Services [place] [address] Cardiovascular Laboratory Report ATRIAL FLUTTER ABLATION AND [...] content not included)... Normal The [facility] BILL Antinuclear Antibodieson 04-23-2021 Antinuclear Abs, IFA Negative Normal . [facility] Comment on above: Result Comment: Nega tive <1:80 Borderline 1:80 Positive >1:80 ICAP nomenclature: AC-0 For more information about Hep-2 cell patterns use ANApatterns.org, the official website for the International Consensus on Antinuclear Antibody (BILL) Patterns (ICAP). Performed at: [facility] [id number] [employer] Specialist: Ger Yen PhD, Phone: [phone] PERFORMED BY: [place] [address] PATHOLOGIST BRICK STACKER MARIBEL AGUILLON M.D. Performed By: #### E SR, CRP, CBC, CREAT #### [address] #### BILL #### [facility] , C-Reactive Proteinon 021 C-Reactive Protein 0.7 mg/dL Normal 0.0-1.0 [facility] Comment on above: Result Comment: PERF ORMED BY: [place] [address] PATHOLOGIST BRICK STACKER MARIBEL AGUILLON M.D. Performed By: #### E SR, CRP, CBC, CREAT #### [address] #### BILL #### [facility] , Complement C3on 04-23-2021 Complement C3 170 mg/dL High 82-167 [facility] Comment on above: Result Comment: Perf ormed at: [facility] [place] [address] [employer] Specialist: Ger Yen PhD, Phone: [phone] Performed By: #### A DDONUAPLUS #### [address] #### CH50, C3, C4 #### [facility] , Complement C4on 04-23-2021 Complement C4 14 mg/dL Normal 12-38 [facility] Comment on above: Performed By: #### A DDONUAPLUS #### [address] [address] #### CH50, C3, C4 #### [facility] , Complement Total (CH50)on Complement Total (CH50) >60 Normal >41 [facility] Comment on above: Result Comment: Age Male [...] determine out of range values. Performed at: [facility] [address] [id number] [employer] Specialist: Ger Yen PhD, Phone: [phone] PERFORMED BY: [place] [address] PATHOLOGIST BRICK STACKER MARIBEL AGUILLON M.D. Performed By: #### E BS CMP, EBS LIPID #### [address] Complete Blood Count Auto Di ffon 04-23-2021 Basophils (Bld) [#/Vol] 0.1 10*3/uL Normal 0.0-0.2 [facility] Comment on above: Performed By: #### E SR, CRP, CBC, CREAT #### [address] #### BILL #### [facility] , Basophils/100 WBC (Bld) 0.7 % Normal . [facility] Comment on above: Performed By: #### E SR, CRP, CBC, CREAT #### [address] #### BILL #### [facility] , Eosinophils (Bld) [#/Vol] 0.1 10*3/uL Normal 0.0-0.45 [facility] Comment on above: Performed By: #### E SR, CRP, CBC, CREAT #### [address] #### BILL #### [facility] , Eosinophils/100 WBC (Bld) 0.5 % Normal . [facility] Comment on above: Performed By: #### E SR, CRP, CBC, CREAT #### [address] #### BILL #### [facility] , Erythrocyte distribution width (RBC) [Ratio] 18.0 % High 11.9-15.3 [facility] Comment on above: Performed By: #### E SR, CRP, CBC, CREAT #### [place] [address] [place] #### BILL #### [facility] , Hematocrit (Bld) [Volume fraction] 31.6 % Low 34.0-46.4 [facility] Comment on above: Performed By: #### E SR, CRP, CBC, CREAT #### [address] #### BILL #### [facility] , Hemoglobin (Bld) [Mass/Vol] 9.8 g/dL Low 11.8-15.4 [facility] Comment on above: Performed By: #### E SR, CRP, CBC, CREAT #### [address] #### BILL #### [facility] , Lymphocytes (Bld) [#/Vol] 1.7 10*3/uL Normal 1.00-4.8 [facility] Comment on above: Performed By: #### E SR, CRP, CBC, CREAT #### [address] #### BILL #### [facility] , Lymphocytes/100 WBC (Bld) 15.0 % Normal . [facility] Comment on above: Performed By: #### E SR, CRP, CBC, CREAT #### [address] #### BILL #### [facility] , MCH (RBC) [Entitic mass] 24.8 pg Normal 24.7-34.3 [facility] Comment on above: Performed By: #### E SR, CRP, CBC, CREAT #### [address] #### BILL #### [facility] , MCV (RBC) [Entitic vol] 80.1 fL Normal 80-100 [facility] Comment on above: Performed By: #### E SR, CRP, CBC, CREAT #### [facility] [address] [place] [address] [place] #### BILL #### [facility] , Mean Corpuscular HGB Conc 31.0 g/dL Low 32.0-35.0 [facility] Comment on above: Performed By: #### E SR, CRP, CBC, CREAT #### [facility] [address] [place] [address] [place] #### BILL #### [facility] , Monocytes (Bld) [#/Vol] 0.5 10*3/uL Normal 0.0-0.8 [facility] Comment on above: Performed By: #### E SR, CRP, CBC, CREAT #### [facility] [address] [place] [address] [place] #### BILL #### [facility] , Monocytes/100 WBC (Bld) 4.6 % Normal . [facility] Comment on above: Performed By: #### E SR, CRP, CBC, CREAT #### [address] #### BILL #### [facility] , Neutrophils (Bld) [#/Vol] 9.1 10*3/uL High 1.8-7.7 [facility] Comment on above: Performed By: #### E SR, CRP, CBC, CREAT #### [address] #### BILL #### [facility] , Neutrophils/100 WBC (Bld) 79.2 % Normal . [facility] Comment on above: Performed By: #### E SR, CRP, CBC, CREAT #### [facility] [address] [place] [address] [place] #### BILL #### [facility] , Nucleated RBC/100 WBC (Bld) [Ratio] 0.1 % Normal 0-0.5 [facility] Comment on above: Performed By: #### E SR, CRP, CBC, CREAT #### [facility] [address] [place] [address] [place] #### BILL #### [facility] , Platelet mean volume (Bld) [Entitic vol] 8.3 fL Normal 6.3-10.7 [facility] Comment on above: Performed By: #### E SR, CRP, CBC, CREAT #### [facility] [address] [place] [address] #### BILL #### [facility] , Platelets (Bld) [#/Vol] 336 10*3/uL Normal 150-450 [facility] Comment on above: Performed By: #### E SR, CRP, CBC, CREAT #### [facility] [address] [place] [address] [place] #### BILL #### [facility] , RBC (Bld) [#/Vol] 3.94 10*6/uL Normal 3.60-5.00 [facility] Comment on above: Performed By: #### E SR, CRP, CBC, CREAT #### [address] #### BILL #### [facility] , WBC (Bld) [#/Vol] 11.5 10*3/uL High 4.5-11.0 [facility] Comment on above: Performed By: #### E SR, CRP, CBC, CREAT #### [place] [address] [place] #### BILL #### [facility] , Creatinineon 04-23-2021 Creatinine [Mass/Vol] 0.75 mg/dL Normal 0.44-1.03 [facility] Comment on above: Performed By: #### E SR, CRP, CBC, CREAT #### [place] [address] [place] #### BILL #### [facility] , Estimated GFR ( Ni > 60 Normal [facility] Comment on above: Result Comment: GFR estimated reference range: According to KDOQI guidelines, <60 ml/min/1.73m2 is sufficient to diagnose a patient with chronic kidney disease. Performed By: #### E SR, CRP, CBC, CREAT #### [place] [id number] [place] #### BILL #### [facility] , Estimated GFR (Non- Am > 60 Normal [facility] Comment on above: Performed By: #### E SR, CRP, CBC, CREAT #### [facility] [address] [place] [address] #### BLIL #### [facility] , Dipstick and Microscopicon 1 Appearance (U) Clear Normal Clear [facility] Comment on above: Order Comment: Name Collection Type:: Clean-Voided Midstream Performed By: #### A DDONUAPLUS #### [address] #### CH50, C3, C4 #### [facility] , Bacteria,Urine None Seen Normal None Seen [facility] Comment on above: Order Comment: Name Collection Type:: Clean-Voided Midstream Performed By: #### A DDONUAPLUS #### [address] #### CH50, C3, C4 #### [facility] , Bilirubin,Urine Negative Normal Negative [facility] Comment on above: Order Comment: Name Collection Type:: Clean-Voided Midstream Performed By: #### A DDONUAPLUS #### [address] #### CH50, C3, C4 #### [facility] , Color (U) Yellow Normal Yellow [facility] Comment on above: Order Comment: Name Collection Type:: Clean-Voided Midstream Performed By: #### A DDONUAPLUS #### [facility] [address] [place] [address] #### CH50, C3, C4 #### [facility] , Glucose Ql (U) 100 mg/dL High Normal [facility] Comment on above: Order Comment: Name Collection Type:: Clean-Voided Midstream Performed By: #### A DDONUAPLUS #### [address] #### CH50, C3, C4 #### [facility] , Hyaline Casts,Urine 0-8 Normal 0-8 [facility] Comment on above: Order Comment: Name Collection Type:: Clean-Voided Midstream Result Comment: PERF ORMED BY: [place] [address] PATHOLOGIST BRICK STACKER MARIBEL AGUILLON M.D. Performed By: #### A DDONUAPLUS #### [address] #### CH50, C3, C4 #### [facility] , Ketones Ql (U) Negative Normal Negative [facility] Comment on above: Order Comment: Name Collection Type:: Clean-Voided Midstream Performed By: #### A DDONUAPLUS #### [address] #### CH50, C3, C4 #### [facility] , Leukocyte esterase Test strip Ql (U) Negative Normal Negative [facility] Comment on above: Order Comment: Name Collection Type:: Clean-Voided Midstream Performed By: #### A DDONUAPLUS #### [address] #### CH50, C3, C4 #### [facility] , Nitrite,Urine Negative Normal Negative [facility] Comment on above: Order Comment: Name Collection Type:: Clean-Voided Midstream Performed By: #### A DDONUAPLUS #### [address] #### CH50, C3, C4 #### [facility] , Occult Blood,Urine Negative Normal Negative [facility] Comment on above: Order Comment: Name Collection Type:: Clean-Voided Midstream Performed By: #### A DDONUAPLUS #### [address] #### CH50, C3, C4 #### [facility] , pH (U) 5.0 [pH] Normal 5.0-9.0 [facility] Comment on above: Order Comment: Name Collection Type:: Clean-Voided Midstream Performed By: #### A DDONUAPLUS #### [address] #### CH50, C3, C4 #### [facility] , Protein,Urine Negative Normal Negative [facility] Comment on above: Order Comment: Name Collection Type:: Clean-Voided Midstream Performed By: #### A DDONUAPLUS #### [address] #### CH50, C3, C4 #### [facility] , RBC,Urine None Seen Normal 0-4 [facility] Comment on above: Order Comment: Name Collection Type:: Clean-Voided Midstream Performed By: #### A DDONUAPLUS #### [address] #### CH50, C3, C4 #### [facility] , Specificy [place],Urine 1.009 Normal 1.001-1.030 [facility] Comment on above: Order Comment: Name Collection Type:: Clean-Voided Midstream Performed By: #### A DDONUAPLUS #### [address] #### CH50, C3, C4 #### [facility] , Squamous Epithelial Cell,Urine 0-1 Normal 0-2 [facility] Comment on above: Order Comment: Name Collection Type:: Clean-Voided Midstream Performed By: #### A DDONUAPLUS #### [address] #### CH50, C3, C4 #### [facility] , Urobilinogen,Urine Normal Normal Normal [facility] Comment on above: Order Comment: Name Collection Type:: Clean-Voided Midstream Performed By: #### A DDONUAPLUS #### [facility] [address] [place] [address] [place] #### CH50, C3, C4 #### [facility] , WBC LM.HPF (Urine sed) [#/Area] 0 /[HPF] Normal 0-4 [facility] Comment on above: Order Comment: Name Collection Type:: Clean-Voided Midstream Performed By: #### A DDONUAPLUS #### [facility] [address] [place] [address] #### CH50, C3, C4 #### [facility] , Erythrocyte Sedimentation Ra ryley 04-23-2021 ESR (Bld) [Velocity] 55 mm/h High 0-29 [facility] Comment on above: Result Comment: PERF ORMED BY: [place] [address] PATHOLOGIST BRICK STACKER MARIBEL AGUILLON M.D. Performed By: #### E SR, CRP, CBC, CREAT #### [facility] [address] [place] [address] #### BILL #### [facility] , BASIC METABOLIC PANELon 03-20 Calcium [Mass/Vol] 8.7 mg/dL Normal 8.6-10.3 [facility] Comment on above: Order Comment: No: D o not add to previous draw Performed By: #### 5 7307, 94804 #### [facility] [address] [place] [address], [facility] Chloride [Moles/Vol] 97 mmol/L Low 98-107 [facility] Comment on above: Order Comment: No: D o not add to previous draw Performed By: #### 5 7371, 50275 #### [facility] [address] [place] [address], [place] CO2 [Moles/Vol] 36 mmol/L High 21-31 [facility] Comment on above: Order Comment: No: D o not add to previous draw Performed By: #### 5 7307, 02500 #### [facility] [address] [place] [address], [place] Creatinine [Mass/Vol] 0.74 mg/dL Normal 0.60-1.20 [facility] Comment on above: Order Comment: No: D o not add to previous draw Performed By: #### 5 7307, 35336 #### [facility] [address] [place] [address], [place] GFR/1.73 sq M.predicted among blacks MDRD (S/P/Bld) [Vol rate/Area] mL/min/{1.73_m2} Normal >60 [facility] Comment on above: Order Comment: No: D o not add to previous draw Performed By: #### 5 7307, 45942 #### [facility] [address] [place] [address], [place] GFR/1.73 sq M.predicted among non-blacks MDRD (S/P/Bld) [Vol rate/Area] mL/min/{1.73_m2} Normal >60 [facility] Comment on above: Order Comment: No: D o not add to previous draw Performed By: #### 5 7307, 33293 #### [facility] [address] [place] [address], [place] Glucose [Mass/Vol] 123 mg/dL High 70-100 [facility] Comment on above: Order Comment: No: D o not add to previous draw Performed By: #### 5 7307, 46474 #### [facility] [address] [place] [address], [place] Potassium [Moles/Vol] 4.3 mmol/L Normal 3.5-5.1 [facility] Comment on above: Order Comment: No: D o not add to previous draw Performed By: #### 5 73, 46524 #### [facility] [address] [place] [address], [facility] Sodium [Moles/Vol] 139 mmol/L Normal 136-145 [facility] Comment on above: Order Comment: No: D o not add to previous draw Performed By: #### 5 7307, 72424 #### [facility] [address] [place] [address], [facility] Urea nitrogen [Mass/Vol] 24 mg/dL Normal 7-25 [facility] Comment on above: Order Comment: No: D o not add to previous draw Performed By: #### 5 7307, 62116 #### [facility] [address] CBC COMPLETE BLOOD COUNTon 04-11-2021 Erythrocyte distribution width (RBC) [Ratio] 16.8 % High 11.5-15.0 [facility] Comment on above: Order Comment: No: D o not add to previous draw Performed By: #### 5 7307, 37090 #### [facility] [address] [place] [address], [facility] Hematocrit (Bld) [Volume fraction] 29.7 % Low 36.0-45.0 [facility] Comment on above: Order Comment: No: D o not add to previous draw Performed By: #### 5 7307, 77040 #### [facility] [address] [place] [address], [facility] Hemoglobin (Bld) [Mass/Vol] 8.9 g/dL Low 12.0-15.0 [facility] Comment on above: Order Comment: No: D o not add to previous draw Performed By: #### 5 7307, 02651 #### [facility] [address] [place] [address], [facility] MCH (RBC) [Entitic mass] 25.4 pg Low 27.0-33.0 [facility] Comment on above: Order Comment: No: D o not add to previous draw Performed By: #### 5 7307, 00659 #### [facility] [address] [place] [address], [facility] MCHC (RBC) [Mass/Vol] 30.0 g/dL Low 32.0-35.0 [facility] Comment on above: Order Comment: No: D o not add to previous draw Performed By: #### 5 7307, 24881 #### [facility] [address] [place] [address], [facility] MCV (RBC) [Entitic vol] 84.9 fL Normal 82.0-98.0 [facility] Comment on above: Order Comment: No: D o not add to previous draw Performed By: #### 5 73, 96896 #### [facility] [address] [place] [address], [facility] Nucleated RBC/100 WBC (Bld) [Ratio] 0 % Normal 0-0 [facility] Comment on above: Order Comment: No: D o not add to previous draw Performed By: #### 5 7307, 92589 #### [facility] [address] [facility] [place] [address], [facility] PLAT CNT 446 10*3/uL High 150-400 [facility] Comment on above: Order Comment: No: D o not add to previous draw Performed By: #### 5 7307, 22339 #### [facility] [address] [place] [id number], [facility] RBC (Bld) [#/Vol] 3.50 10*6/uL Low 3.80-5.00 [facility] Comment on above: Order Comment: No: D o not add to previous draw Performed By: #### 5 7307, 07708 #### [facility] [address] [place] [id number], [facility] WBC (Bld) [#/Vol] 16.54 10*3/uL High 4.00-10.60 [facility] Comment on above: Order Comment: No: D o not add to previous draw Performed By: #### 5 7307, 53734 #### [facility] [address] [facility] [place] [address], [facility] Cardiovascular Lab Reporton 04-11-2021 Cardiovascular Lab Report [facility] Patient Name: Antonio [facility] S MR #: [id number] Department of Physician: London Rodas M.D. Division of Service Date: 04/11/2021 Cardiology Birthdate: 1970 Adult Cardiovascular Room #: 5AB [id number] [facility] [address] [facility]. [place] [address] Cardiovascular Laboratory Report PROCEDURE PERFORMED: Transesophageal echocardiogram and cardioversion. INDICATION: Atrial flutter. FELLOW: Dunia Sierra MD PROCEDURE IN DETAIL: Informed consent was obtained from the patient after explaining the indication, risks, benefits, as well as alternatives. The patient understood and agreed, and signed the consent form. The patient was brought to the laboratory administrative director and transesophageal echocardiogram was performed, under conscious [...] Sierra MD Date Trans: 04/11/2021 12:53 P/mmo [id number] cc: Phillip Ann M.D. [address], [place] [address] Normal [facility] MAGNESIUM BLOODon 04-11-2021 Magnesium [Mass/Vol] 2.3 mg/dL Normal 1.9-2.7 [facility] Comment on above: Order Comment: No: D o not add to previous draw Performed By: #### 5 7307, 66401 #### [facility] [address] POC GLUCOSE LABon 04-11-2021 Glucose [Mass/Vol] 124 mg/dL High 70-100 [facility] Comment on above: Performed By: #### 5 7307, 28637 #### [facility] [address] TROPONIN-Ion 04-11-2021 Troponin I.cardiac [Mass/Vol] 0.06 ng/mL High 0.00-0.04 [facility] Comment on above: Order Comment: No: D o not add to previous draw Result Comment: REFE RENCE RANGES: 0.00 - 0.04 ng/ml NORMAL 0.05 - 0.50 ng/ml INDETERMINATE > 0.50 ng/ml CONSISTENT WITH AN M.I. Performed By: #### 5 7307, 01387 #### [facility] [address] *BLOOD CULTUREon 04-10-2021 *BLOOD CULTURE Clinical Report: (D) Specimen: BLOOD CULTURE Collected: 04/10/2021 09:50 Status: Final Last Updated: 04/15/2021 11:28 (1) Right hand CULT RES (Final) No Growth Day 5 Normal [facility] Comment on above: Order Comment: No: D o not add to previous draw Performed By: #### 5 7307, 79639 #### [facility] [address] [place] [address], [place] *BLOOD CULTURE Clinical Report: (D) Specimen: BLOOD CULTURE Collected: 04/10/2021 09:50 Status: Final Last Updated: 04/15/2021 11:28 (1) Left hand CULT RES (Final) No Growth Day 5 Normal [facility] Comment on above: Order Comment: No: D o not add to previous draw Performed By: #### 5 7307, 37972 #### [facility] [address] *SARS-CoV-2 COVID-19on 04-10 SARS-CoV-2 (COVID-19) RNA DEIRDRE+probe Ql (Unsp spec) Not detected Normal Not Detected [facility] Comment on above: Order Comment: No: D o not add to previous draw Performed By: #### 5 7307, 32114 #### [facility] [address] APTTon 04-10-2021 aPTT Coag (Bld) [Time] 23.4 s Low 25.0-35.0 [facility] Comment on above: Order Comment: No: D [...] THIS PURPOSE. Performed By: #### 5 7307, 47522 #### [facility] [address] aPTT Coag (Bld) [Time] 23.2 s Low 25.0-35.0 [facility] Comment on above: Order Comment: No: D [...] THIS PURPOSE. Performed By: #### 5 7307, 67219 #### [facility] [address] [place] [address], [facility] BASIC METABOLIC PANELon 09-2 Calcium [Mass/Vol] 8.6 mg/dL Normal 8.6-10.3 [facility] Comment on above: Order Comment: No: D o not add to previous draw Performed By: #### 1 0070, 09007, 99920 #### [facility] [address] [place] [address], [facility] Chloride [Moles/Vol] 99 mmol/L Normal 98-107 [facility] Comment on above: Order Comment: No: D o not add to previous draw Performed By: #### 1 0, 53268, 36262 #### [facility] [address] [place] [address], [facility] CO2 [Moles/Vol] 32 mmol/L High 21-31 [facility] Comment on above: Order Comment: No: D o not add to previous draw Performed By: #### 1 0, 39060, 54393 #### [facility] [address] [place] [address], [facility] Creatinine [Mass/Vol] 0.84 mg/dL Normal 0.60-1.20 [facility] Comment on above: Order Comment: No: D o not add to previous draw Performed By: #### 1 0070, 63827, 35727 #### [facility] [address] [place] [address], [facility] GFR/1.73 sq M.predicted among blacks MDRD (S/P/Bld) [Vol rate/Area] mL/min/{1.73_m2} Normal >60 [facility] Comment on above: Order Comment: No: D o not add to previous draw Performed By: #### 1 0, 56511, 86397 #### [facility] [address] [place] [address], [facility] GFR/1.73 sq M.predicted among non-blacks MDRD (S/P/Bld) [Vol rate/Area] mL/min/{1.73_m2} Normal >60 [facility] Comment on above: Order Comment: No: D o not add to previous draw Performed By: #### 1 0, 75167, 28210 #### [facility] [address] [place] [address], [facility] Glucose [Mass/Vol] 117 mg/dL High 70-100 [facility] Comment on above: Order Comment: No: D o not add to previous draw Performed By: #### 1 69, , 15729 #### [facility] [address] [place] [address], [facility] Potassium [Moles/Vol] 3.9 mmol/L Normal 3.5-5.1 [facility] Comment on above: Order Comment: No: D o not add to previous draw Performed By: #### 1 69, 71279, 44869 #### [facility] [address] [facility] [place] [address], [facility] Sodium [Moles/Vol] 139 mmol/L Normal 136-145 [facility] Comment on above: Order Comment: No: D o not add to previous draw Performed By: #### 1 69, 65633, 56362 #### [facility] [address] [place] [address], [place] Urea nitrogen [Mass/Vol] 19 mg/dL Normal 7-25 [facility] Comment on above: Order Comment: No: D o not add to previous draw Performed By: #### 1 69, 54267, 01788 #### [facility] [address] [place] [address], [place] BNP (B-TYPE NATRIURETIC PEPT MARILYN)on 04-10-2021 Natriuretic peptide B (Bld) [Mass/Vol] 259 pg/mL High 0-100 [facility] Comment on above: Order Comment: No: D o not add to previous draw Result Comment: Give n the appropriate clinical setting a BNP result of >100 pg/mL indicates congestive heart failure. Performed By: #### 5 7307, 33093 #### [facility] [address] CBC W/DIFFon 04-10-2021 ABS IMM GRANS 1.1 10*3/uL High 0.0-0.2 [facility] Comment on above: Performed By: #### 5 0103 #### [facility] [address] ABS NEUTROPHILS 9.6 10*3/uL High 1.6-7.6 [facility] Comment on above: Performed By: #### 5 3 #### [facility] [address] ANISO MODERATE Normal [facility] Comment on above: Performed By: #### 5 3 #### [facility] [address] [address] Basophils (Bld) [#/Vol] 0.1 10*3/uL Normal 0.0-0.2 [facility] Comment on above: Performed By: #### 5 3 #### [facility] [address] Basophils/100 WBC (Bld) 0.7 % Normal 0.0-1.0 [facility] Comment on above: Performed By: #### 5 3 #### [facility] [address] [place] [address], [facility] Eosinophils (Bld) [#/Vol] 0.1 10*3/uL Normal 0.0-0.5 [facility] Comment on above: Performed By: #### 5 3 #### [facility] 3000 [place] [address], [facility] Eosinophils/100 WBC (Bld) 0.4 % Normal 0.0-6.0 [facility] Comment on above: Performed By: #### 5 0103 #### [facility] [address] [place] [address], [facility] Erythrocyte distribution width (RBC) [Ratio] 16.5 % High 11.5-15.0 [facility] Comment on above: Performed By: #### 5 0103 #### [facility] [address] [place] [address], [facility] Hematocrit (Bld) [Volume fraction] 31.2 % Low 36.0-45.0 The [facility] Comment on above: Performed By: #### 5 0103 #### [facility] [address] [place] [address], [facility] Hemoglobin (Bld) [Mass/Vol] 9.0 g/dL Low 12.0-15.0 [facility] Comment on above: Performed By: #### 5 0103 #### [facility] [address] [place] [address], [facility] HYPO SLIGHT Normal [facility] Comment on above: Performed By: #### 5 0103 #### [facility] [address] [place] [address], [facility] IMMATURE GRANS 6.8 % High 0.0-1.0 [facility] Comment on above: Performed By: #### 5 0103 #### [facility] [address] [place] [address], [facility] Lymphocytes (Bld) [#/Vol] 4.4 10*3/uL High 1.2-4.0 [facility] Comment on above: Performed By: #### 5 0103 #### [facility] [address] [place] [address], [facility] Lymphocytes/100 WBC (Bld) 26.4 % Normal 20.0-45.0 [facility] Comment on above: Performed By: #### 5 0103 #### [facility] [address] [place] [address], [facility] MCH (RBC) [Entitic mass] 25.3 pg Low 27.0-33.0 [facility] Comment on above: Performed By: #### 5 0103 #### [facility] [address] [facility] [place] [address], [facility] MCHC (RBC) [Mass/Vol] 28.8 g/dL Low 32.0-35.0 The [facility] Comment on above: Performed By: #### 5 0103 #### [facility] [address] [facility] [place] [address], [facility] MCV (RBC) [Entitic vol] 87.6 fL Normal 82.0-98.0 [facility] Comment on above: Performed By: #### 5 0103 #### [facility] [address] [facility] [place] [address], [facility] Monocytes (Bld) [#/Vol] 1.3 10*3/uL High 0.1-1.0 [facility] Comment on above: Performed By: #### 5 0103 #### [facility] [address] [facility] [place] [address], [facility] MONOS 7.6 % Normal 5.0-12.0 The [facility] Comment on above: Performed By: #### 5 0103 #### [facility] [address] [place] [address], [facility] Neutrophils/100 WBC (Bld) 58.1 % Normal 40.0-72.0 [facility] Comment on above: Performed By: #### 5 3 #### [facility] [address] [place] [address], [facility] Nucleated RBC/100 WBC (Bld) [Ratio] 1 % High 0-0 The [facility] Comment on above: Performed By: #### 5 0103 #### [facility] [address] [place] [address], [facility] PLAT CNT 483 10*3/uL High 150-400 [facility] Comment on above: Performed By: #### 5 0103 #### [facility] [address] [place] [address], [facility] POIK SLIGHT Normal [facility] Comment on above: Performed By: #### 5 0103 #### [facility] [address] [place] [address], [place] POLY SLIGHT Normal [facility] Comment on above: Performed By: #### 5 0103 #### [facility] [address] [place] [address], [facility] RBC (Bld) [#/Vol] 3.56 10*6/uL Low 3.80-5.00 [facility] Comment on above: Performed By: #### 5 0103 #### [facility] [address] [place] [address], [facility] WBC (Bld) [#/Vol] 16.54 10*3/uL High 4.00-10.60 [facility] Comment on above: Performed By: #### 5 0103 #### [facility] [address] [place] [address], [facility] LIPID PROFILEon 04-10-2021 Cholesterol [Mass/Vol] 161 mg/dL Normal 120-200 [facility] Comment on above: Result Comment: CHOL ESTEROL REFERENCE RANGE: 20 YEARS AND OLDER CARDIOVASCULAR RISK Less than 200 mg/dl Low Risk 200 to 239 mg/dl Borderline Risk 240 mg/dl and greater High Risk Performed By: #### 3 1569, 12047, 01885 #### [facility] [address] [place] [address], [facility] Cholesterol in HDL [Mass/Vol] 61 mg/dL Normal 23-92 The [facility] Comment on above: Result Comment: Slig ht variation in normal range could be due to gender and/or age. HDL CHOLESTEROL REFERENCE RANGE: 20 years and older Cardiovascular Risk > or =60 mg/dL Desirable 40 TO 59 mg/dL Low Risk <40 mg/dL High Risk Performed By: #### 3 1569, 60622, 58701 #### [facility] [address] [place] [address], [place] Cholesterol in LDL [Mass/Vol] 28 mg/dL Normal 0-130 [facility] Comment on above: Result Comment: LDL IS A CALCULATION LDL IS ONLY VALID IF THE TRIG IS LESS THAN 400. Performed By: #### 3 1569, 27335, 29255 #### [facility] [address] [place] [address], [facility] Cholesterol.total/C holesterol in HDL [Mass ratio] 2.6 {ratio} Normal .0-4.5 The [facility] Comment on above: Performed By: #### 3 1569, 35365, 36709 #### [facility] [address] [place] [address], [facility] NON-HDL CHOLESTEROL 100 mg/dL Normal [facility] Comment on above: Performed By: #### 3 1569, 55590, 96955 #### [facility] [address] [place] [address], [place] Triglyceride [Mass/Vol] 362 mg/dL High 40-149 The [facility] Comment on above: Result Comment: TRIG LYCERIDE REFERENCE RANGE: 20 YEARS AND OLDER CARDIOVASCULAR RISK LESS THAN 150 mg/dl LOW RISK 150 TO 199 mg/dl BORDERLINE RISK 200 mg/dl AND GREATER HIGH RISK Performed By: #### 3 1569, 41877, 64574 #### [facility] [address] [place] [address], [place] VLDL CHOL 72 mg/dL High 0-40 [facility] Comment on above: Performed By: #### 3 1569, 64656, 16174 #### [facility] [address] [place] [address], [facility] MAGNESIUM BLOODon 04-10-2021 Magnesium [Mass/Vol] 2.4 mg/dL Normal 1.9-2.7 The [facility] Comment on above: Order Comment: No: D o not add to previous draw Performed By: #### 1 0070, 27995, 32036 #### [facility] [address] [place] [address], [facility] POC GLUCOSE LABon 04-10-2021 Glucose [Mass/Vol] 350 mg/dL High 70-100 [facility] Comment on above: Performed By: #### 5 7307, 52398 #### [facility] [address] [place] [address], [facility] Glucose [Mass/Vol] 249 mg/dL High 70-100 [facility] Comment on above: Performed By: #### 5 7307, 13417 #### [facility] [address] [facility] [place] [address], [facility] PROCALCITONINon 04-10-2021 PROCALCITONIN 0.09 ng/mL Normal 0.00-0.10 The [facility] Comment on above: Order Comment: No: D [...] initial PCT<0.5ng/mL Performed By: #### 5 7307, 69424 #### [facility] [address] PROTHROMBIN TIMEon 1 INR Coag (PPP) [Relative time] 1.07 {INR} Normal 0.91-1.16 [facility] Comment on above: Order Comment: No: D [...] CHEST 1995;[id number]. Performed By: #### 5 7307, 10995 #### [facility] [address] PT Coag (PPP) [Time] 13.9 s Normal 12.3-14.8 [facility] Comment on above: Order Comment: No: D o not add to previous draw Result Comment: ALL RESULTS MUST BE INTERPRETED WITH RESPECT TO BLOOD DRAWING ARTIFACT OR DILUTION ERROR OF ANTICOAGULANT AT THE TIME OF SAMPLING. Performed By: #### 5 7307, 52625 #### [facility] 3000 [facility]. [address] TROPONIN-Ion 04-10-2021 Troponin I.cardiac [Mass/Vol] 0.07 ng/mL High 0.00-0.04 The [facility] Comment on above: Order Comment: No: D o not add to previous draw Result Comment: REFE RENCE RANGES: 0.00 - 0.04 ng/ml NORMAL 0.05 - 0.50 ng/ml INDETERMINATE > 0.50 ng/ml CONSISTENT WITH AN M.I. Performed By: #### 3 1569, 24625, 66745 #### [facility] [address] Troponin I.cardiac [Mass/Vol] 0.07 ng/mL High 0.00-0.04 The [facility] Comment on above: Order Comment: No: D o not add to previous draw Result Comment: REFE RENCE RANGES: 0.00 - 0.04 ng/ml NORMAL 0.05 - 0.50 ng/ml INDETERMINATE > 0.50 ng/ml CONSISTENT WITH AN M.I. Performed By: #### 1 0070, 41696, 83825 #### [facility] [address] [place] [address], [facility] TSH3 WITH REFLEX FT4on 04-10 TSH 3RD GENERATION 0.95 uIU/mL Normal 0.34-5.60 The [facility] Comment on above: Order Comment: Yes: Add to Previous draw if able Performed By: #### 3 1569 #### [facility] [address] [place] [address], [facility] TSH 3RD GENERATION 3.12 uIU/mL Normal 0.34-5.60 The [facility] Comment on above: Performed By: #### 3 1569, 97531, 98754 #### [facility] 3000 [facility]. [address] UFH HEPARIN ASSAYon 04-10-20 21 UNFRACTIONATED HEPARIN >1.00 Critically high 0.30-0.70 The [facility] Comment on above: Result Comment: Resu lt checked and called. Accurately read back by Haven Avila RN at 1122 per RN patient may have previously been given Eliquis. UFH = 1.36 for pharmacy use Rivaroxaban and Apixaban will interfere with the anti Xa assay used to monitor UFH and LMWH. Performed By: #### 5 7307, 10052 #### [facility] 3000 [facility]. [address] Cardiovascular Lab Reporton 01-30-2021 Cardiovascular Lab Report [facility] Patient Name: Antonio Diana [facility] S MR #: [id number] Department of Physician: London Ross M.D. Division of Service Date: 01/30/2021 Cardiology Birthdate: 1970 Adult Cardiovascular Room #: [facility] [address] [facility] [place] [address] Cardiovascular Laboratory Report FINAL IMPRESSIONS: 1. Moderately [...] 5. Follow up with Cardiology in the [facility] Cardiology office in the next 2 [...] right internal jugular vein was obtained. A 6-Chinese glide sheath was inserted without difficulty. A [...] Bear M.D. Date Trans: 01/30/2021 02:48 P/marixa [id number] cc: Phillip Ann M.D. [address], [facility] [address] [facility] Vital Signs Date Time Vital Sign Value Performing Clinician Iman stafford 09-15-2022 15:24-0500 Blood Pressure Location Juan Miguel SALINAS [facility] 09-15-2022 15:24-0500 Diastolic blood pressure 78 mm[Hg] Juan Miguel SALINAS [facility] 09-15-2022 15:24-0500 Heart rate 70 /min Juan Miguel SALINAS [facility] 09-15-2022 15:24-0500 Respiratory rate 16 /min Juan Miguel BRAD [facility] 09-15-2022 15:24-0500 Systolic blood pressure 116 mm[Hg] Juan Miguel BRAD [facility] Encounters Encounter Date Encounter Type Care Provider Facility Start: 10-26-2023 End: 10-26-2023 ambulatory J[facility]NA [facility] Start: 05-05-2023 End: 05-05-2023 ambulatory [facility] Start: 01-27-2023 End: 01-27-2023 ambulatory [facility] Start: 11-17-2022 End: 11-17-2022 ambulatory EMILY ZHONG [...] 08-25-2022 ambulatory Juan Miguel SALINAS Facility : [place] Start: 08-20-2022 End: 08-21-[address] PHILLIP [...] Evaluation and management of inpatient PHILLIP ANN Facility:[facility] Start: 01-30-2021 End: 01-31-2021 ambulatory ADAMAB Richie BEAR Facility:[facility] Procedures Date Procedure Procedure Detail Performing Clinician Start: 04-11-2021 Rastafari of Cardi ac Rhythm, Single SAMER Sony [...] unspecified formulation Juan Miguel SALINAS [facility] [place] 10-29-2020 SARS-CoV-2 (COVID-19 ) mRNA-1273 vaccine Juan Miguel NILL [facility] [place] 10-25-2020 SARS-CoV-2 (COVID-19 ) mRNA BNT-162b2 vax Juan Miguel SALINAS [facility] [place] Comment on above: Result Comment: 2022: TPV50 10-24-2020 SARS-CoV-2 (COVID-19 ) mRNA BNT-162b2 gax Juan Miguel NILL [facility] 10-04-2020 SARS-CoV-2 (COVID-19 ) mRNA BNT-162b2 vax Juan Miguel NILL [facility] [place] Comment on above: Result Comment: 2022: TPV50 10-03-2020 SARS-CoV-2 (COVID-19 ) mRNA BNT-162b2 gax Juan Miguel NILL [facility] Payers Date Payer Category Payer Unknown [id number] 1970 Unknown [id number] 2.16.8 [id number] 1970 Unknown [id number] 2.16.8 [id number] 1970 Unknown [id number] 2.16.8 40.1.698079.3.579.2.727 1970 Unknown [id number] 2.16.8 40.1.016993.3.579.2.727 1970 Unknown [id number] 2.16.84 0.1.874913.3.579.2.593 1970 Unknown [id number] 2.16.84 0.1.504715.3.579.2.593 1970 Unknown [id number] 2.16.84 0.1.665380.3.579.2.593 1970 Unknown [id number] 2.16.84 0.1.153348.3.579.2.593 1968 Unknown [id number] 2.16.84 0.1.923548.3.579.2.593 1968 Unknown [id number] 2.16.84 0.1.083870.3.579.2.593 1968 Unknown [id number] 2.16.84 0.1.140474.3.579.2.593 1968 Unknown [id number] 2.16.84 0.1.191998.3.579.2.593 1968 Unknown [id number] 2.16.84 0.1.338595.3.579.2.593 1968 Unknown [id number] 2.16.84 0.1.874767.3.579.2.593 1968 Unknown [id number] 2.16.84 0.1.766335.3.579.2.593 1968 Unknown [id number] 2.16.84 0.1.514688.3.579.2.593 1968 Unknown [id number] 2.16.84 0.1.276807.3.579.2.593 1961 Unknown [id number] 1961 Unknown [id number] 1961 Unknown [id number] 1961 Unknown [id number] Social History Date Type Detail Facility Start: 09-15-2022 Tobacco smoking status Ex-smoker (fi nding) [facility] [place] Tobacco smoking status Never [facility] [place] Sex Assigned At Female [facility] Medical Equipment Procedure Code Equipment Code Equipment Origin al Text Equipment Identifier Dates lancets, glucome ter, alcohol swabs, testing strips, insulin pen needles, Print Requisition, Supply Start: 08-25-2021 Functional Status Date Assessment Result Facility 09-15-2022 Functional Status N/A [facility] Clinical Notes 04-12-2021 to 10-26-2023 Note [...] systems reviewed and are negative. [facility] 10-26-2023 Note Cardiovascular Medic ine [facility] SUBJECTIVE Chief Complaint Patient presents with [...] trended upwards is a since seen in [place] [facility] 04/28/2023 and was diagnosed with vertigo [...] fi (more content not included)... [facility] 05-05-2023 Note [place] [facility] Cons[place] Reason for visit: [...] trended upwards [facility] and was diagnosed with vertigo [...] table (more content not included)... [facility] 05-05-2023 Note Patient here for 3 m [...] systems reviewed and are negative. [facility] 01-27-2023 Note Patient here for 6 m [...] systems reviewed and are negative. [facility] 01-27-2023 Note [place] [facility] Cons[place] Note Reason for visit: [...] Prior to Visit Medication Sig Dispense Refill dirobwqlbj-llblokrhshfom-lkkl (Fioricet) 50-300-40 mg capsule dicyclomine (Bentyl) 20 [...] mg/1. (more content not included)... [facility] 11-17-2022 Note PROCEDURE: XR CHEST 1 V [...] by: AUDREY BO Date: 2022-11-17 12:14 [facility] 09-17-2022 Note Chief Complaint consultation for epigastric pain and nausea HPI Staff 51 year old female presents on consultation from Dr. Ann for intermittent abdominal pain. Presented to [place] ED 08/09 with complaint of epigastric pain [...] section, section, Excisi (more content not included)... [facility] Comment on above: Result Comment: Elec tronically Signed By: BRAD DIAZ, Juan Miguel Rivera\Date and Time Signed: 09/17/22 11:55 EST 04-12-2021 Note MR#: [id number] I [facility] Pt. Name: Diana Alvarez Admitted: 04/10/2021 Discharged: 04/11/2021 Date of : 1970 Physician: Orlin Wick MD DISCHARGE SUMMARY PRIMARY DIAGNOSIS: New-onset atrial flutter with RVR. SECONDARY DIAGNOSES: 1. Pulmonary hypertension. 2. COPD. 3. Diabetes. HISTORY OF PRESENT ILLNESS: This patient is a 50-year-old female with past medical history of COPD, hypertension, and diabetes, who was sent from [facility] due to atrial flutter with RVR due to COPD exacerbation. The patient was initially treated with IV Cardizem, however, it was changed to p.o. prior to transfer. The patient was also given loading dose digoxin. The patient was transferred to [facility] for cardioversion. HOSPITAL COURSE: 1. [...] Wick MD Date Trans: 04/12/2021 03:25 P/marixa [id number] cc: Phillip Ann M.D. [address] [facility] [address] [facility] Evaluation + Plan note No data available for this section [facility] Discharge instructions No data available for this section [facility] Progress note No data available for this section [facility] [place] Summary Purpose Family History No Family History Records FoundNo Family History Records FoundNo Family History Records FoundNo Family History Records FoundNo Family History Records Found Advance Directives No Advanced Directives Records FoundNo Advanced Directives Records FoundNo Advanced Directives Records FoundNo Advanced Directives Records FoundNo Advanced Directives Records Found Additional Source Comments INFORMATION SOURCE (unrecogn ized section and content) DATE CREATED AUTHOR 09/10/2021 [facility] DATE CREATED AUTHOR AUTHOR'S ORGANIZ ATION 12/24/2021 [facility] DATE CREATED AUTHOR AUTHOR'S ORGANIZ ATION 10/22/2022 [facility] DATE CREATED AUTHOR AUTHOR'S ORGANIZ ATION 11/20/2022 [facility] DATE CREATED AUTHOR AUTHOR'S ORGANIZ ATION 11/12/2023 [facility] Patient Care team informatio n (unrecognized section and content) Personnel Name: Phillip Ann MD Address: Address: [address] [place] [address] FOR RECORDS PERTAINING TO PATIENTS WHO ARE [...] BE BASED ON THE PRIMARY CLINICAL RECORDS. [facility] [employer] [facility]. provides no warranty or guarantee of the accuracy or completeness of information in this document.
[2023-11-23 18:12] LABS: Basophils Percent Auto 0.3 % (0.2-2.0); Eosinophils Absolute Auto 0.1 10^3/uL (0.0-0.7); Eosinophils Percent Auto 0.4 % (0.9-7.0); Hematocrit 45.9 % (36.0-48.0); Hemoglobin 14.9 g/dL (12.0-16.0); Immature Granulocytes Abs Auto 0.04 10^3/uL (0.00-0.03); Immature Granulocytes Pct Auto 0.3 % (0.0-0.5); Lymphocytes Absolute Auto 2.9 10^3/uL (1.2-3.8); Lymphocytes Percent Auto 20.8 % (20.5-60.0); Mean Corpuscular HGB Conc 32.5 g/dL (29.9-35.2); Mean Corpuscular Hemoglobin 29.2 pg (26.7-34.0); Mean Platelet Volume 10.1 fL (9.5-13.5); Monocytes Absolute Auto 1.1 10^3/uL (0.3-0.8); Monocytes Percent Auto 8.1 % (1.7-12.0); Neutrophils Absolute Auto 9.8 10^3/uL (1.4-6.5); Neutrophils Percent Auto 70.1 % (43.0-75.0); Platelet Count 435 10^3/uL (150-450); Red Cell Distribution Width 13.6 % (11.0-15.0)
--- NOTE | 2023-11-23 18:19 | CT_ITS ---
The [address] [address] Patient Name: LEIGHANN TALAMANTES MRN: [id number] date: 1970 Sex: F Assigned Patient Location: ER Current Patient Location: .MAIN Accession/Order Number: [id number] Exam Date: 11/23/2023 19:03 Report Date: 11/23/2023 20:21 At the request of: KYLAH MERRILL Procedure: CT abdomen pelvis w con EXAM: CT abdomen pelvis w con HISTORY: vomiting and diarrhea COMPARISON: CT abdomen/pelvis dated 04/06/2021. TECHNIQUE: Multiple axial images of the abdomen and pelvis are obtained following the administration of IV contrast material. Coronal and sagittal reformatted sequences are submitted for review. FINDINGS: The lung bases appear clear. Heart size is normal. Mild diffuse low-attenuation of the liver is seen, which is a nonspecific finding, but which can be seen with mild diffuse fatty infiltration. The gallbladder, spleen, pancreas and bilateral adrenal glands appear unremarkable. A 12 mm low density is seen about the mid pole of the right kidney which appears grossly stable since prior examination, and which CT appearance can be seen with mild complex cystic structure. However, a renal ultrasound versus renal MRI with and without contrast may be considered for better evaluation. Bilateral kidneys otherwise demonstrate normal size, morphology and contrast enhancement. There is no evidence for fracture is bilaterally. The urinary bladder appears unremarkable. Nonobstructive bowel pattern is seen. The appendix is not identified. No abnormal pericecal inflammatory changes are seen. Descending and sigmoid colonic diverticula are seen without significant associated inflammatory changes. Mild wall thickening of the terminal ileum may be seen with mild mucosal enhancement, which may represent mild inflammatory process/terminal ileitis. No significant free fluid or abnormal fluid collection is seen in the abdomen and pelvis. Aortic and iliac arterial calcification is seen without aneurysmal dilatation. The abdominal wall/visualized soft tissues appear unremarkable. No acute or destructive osseous lesion is seen. CT/CT abdomen pelvis w con IMPRESSION: Mild wall thickening of the terminal ileum may be seen with mild mucosal enhancement, which may represent mild inflammatory process/terminal ileitis. Likely mild diffuse fatty infiltration of the liver. Descending and sigmoid colonic diverticulosis without CT evidence for diverticulitis. A 12 mm low density is seen about the mid pole of the right kidney which appears grossly stable since prior examination, and which CT appearance can be seen with mild complex cystic structure. However, a renal ultrasound versus renal MRI with and without contrast may be considered for better evaluation. Electronically authenticated by: LUIS M RIVERA Date: 11/23/2023 20:21
--- NOTE | 2023-11-23 18:21 | ED_ITS ---
HPI HPI - General Adult General Chief complaint: Abdominal Pain Stated complaint: Flu Like Symptoms Time Seen by Provider: 11/23/23 17:36 Source: patient Mode of arrival: walk-in History of Present Illness HPI narrative: Patient is a 53-year-old female who returns to the emergency department with continued vomiting and diarrhea. Patient was seen in this emergency department 5 days ago, she had lab work and a stool specimen showing norovirus. She states symptoms improved briefly and then in the last day she has had a return of vomiting and diarrhea. She denies fevers or upper respiratory symptoms. She states today she developed a migraine. She reports diffuse 8/10 abdominal pain. She has not had any urinary symptoms. No flank or back pain. She has been using Zofran and Bentyl at home without improvement. Related Data Home Medications ?Medication ?Instructions ?Recorded ?Confirmed albuterol sulfate 90 mcg/actuation 2 puff inhalation Q4H PRN wheezing 04/18/23 10/14/23 aerosol inhaler (Ventolin HFA) apixaban 5 mg tablet (Eliquis) 5 mg PO BID 04/18/23 11/18/23 diltiazem HCl 240 mg 240 mg PO Q24H 04/18/23 11/18/23 capsule,extended release 24 hr ezetimibe 10 mg tablet 10 mg PO DAILY 04/18/23 11/18/23 ferrous sulfate 325 mg (65 mg 325 mg PO BID 04/18/23 11/18/23 iron) tablet furosemide 40 mg tablet 40 mg PO DAILY 04/18/23 11/18/23 isosorbide mononitrate 30 mg 30 mg PO DAILY 04/18/23 11/18/23 tablet,extended release 24 hr metformin 500 mg tablet 500 mg PO DAILY 04/18/23 11/18/23 pantoprazole 40 mg tablet,delayed 40 mg PO DAILY 04/18/23 11/18/23 release potassium chloride 20 mEq 20 meq PO BID 04/18/23 11/18/23 tablet,extended release rosuvastatin 5 mg tablet 5 mg PO DAILY 04/18/23 11/18/23 metoprolol succinate 25 mg 50 mg PO DAILY 04/28/23 11/18/23 tablet,extended release 24 hr cholecalciferol (vitamin D3) 50 11/18/23 mcg (2,000 unit) capsule semaglutide 0.25 mg or 0.5 mg (2 0.5 mg subcut QWEEK 11/18/23 11/18/23 mg/1.5 mL) subcutaneous pen injector (Ozempic) Previous Rx's ?Medication ?Instructions ?Recorded acetaminophen 325 mg capsule 650 mg (2 x 325 mg) PO .q8 PRN 04/18/23 (Tylenol) pain #20 caps hydrocodone 5 mg-acetaminophen 325 1 tab PO Q6H PRN pain 5 days #20 11/14/23 mg tablet tabs ondansetron 4 mg disintegrating 4 mg PO Q6H PRN nausea and 11/19/23 tablet vomiting #20 tabs hyoscyamine sulfate 0.125 mg 0.125 mg PO Q6H PRN abdominal pain 11/23/23 tablet (Levsin) #12 tabs promethazine 25 mg tablet 25 mg PO Q6H PRN nausea and 11/23/23 vomiting #12 tabs Allergies Allergy/AdvReac Type Severity Reaction Status Date / Time morphine Allergy Intermediate Verified 11/18/23 22:36 Opioid HPI Opioid Management Most Recent Opioid Data: Last Pain Scale 4 11/19/23 00:34 Last ED Pain Assessment 11/19/23 00:34 Review of Systems ROS Constitutional Denies: fever or chills Ears, nose, mouth, and throat Denies: throat pain or nasal congestion Cardiovascular Denies: chest pain Respiratory Denies: shortness of breath or cough Gastrointestinal Reports: abdominal pain, nausea, vomiting and diarrhea Musculoskeletal Denies: back pain Integumentary/Breast Denies: rash Neurological Reports: headache Hematologic/Lymphatic Denies: easy bruising or easy bleeding PFSH PFSH Social History Smoking status: Former smoker Exam Narrative Exam Narrative: Gen.: Awake, alert, in no distress Head: Normocephalic, atraumatic ENT: Moist mucous membranes Respiratory: No respiratory distress, lungs clear bilaterally Cardio: Regular rate and rhythm Gastrointestinal: Abdomen is soft, obese, And diffusely tender to palpation with no rigidity, no guarding or rebound Extremities: Moves extremities equally Psych: Normal mood and affect Neuro: No focal neuro deficit Skin: Warm, dry, intact Constitutional Vital Signs, click to edit/add: Last Vital Signs Temp 99.5 F 05/07/24 17:25 Pulse 81 11/23/23 17:25 Resp 15 11/23/23 17:25 BP 111/72 11/23/23 19:51 Pulse Ox 96 11/23/23 17:25 O2 Del Method Room Air 11/23/23 19:52 Course Vital Signs Vital signs: Vital Signs Temperature 99.5 F 11/23/23 17:25 Pulse Rate 81 11/23/23 17:25 Respiratory Rate 15 11/23/23 17:25 Blood Pressure 127/91 11/23/23 17:25 Pulse Oximetry 96 11/23/23 17:25 Oxygen Delivery Method Room Air 11/23/23 17:25 Temperature 99.5 F 11/23/23 17:25 Pulse Rate 81 11/23/23 17:25 Respiratory Rate 15 11/23/23 17:25 Blood Pressure 111/72 11/23/23 19:51 Pulse Oximetry 96 11/23/23 17:25 Oxygen Delivery Method Room Air 11/23/23 19:52 Medical Decision Making MDM Narrative Medical decision making narrative: Lab studies show mild leukocytosis, CT scan with mild inflammatory process of the terminal ileum with no significant colitis, abscess or perforation. The remainder of the labs are stable. She is discharged home with Phenergan and Levsin. She was given education and reassurance. Increase fluids. No episodes of vomiting or diarrhea in the ER. Vital signs are stable at discharge. Follow-up with PCP and return to the ER if symptoms change or worsen Medical Records Medical records reviewed: Yes I reviewed the patient's medical records Lab Data Lab results reviewed: Yes I reviewed the patient's lab results Labs: Lab Results 11/23/23 11/23/23 Range/Units 17:41 17:59 WBC 14.0 H (4.0-11.0) 10^3/uL RBC 5.10 (4.20-5.40) 10^6/uL Hgb 14.9 (12.0-16.0) g/dL Hct 45.9 (36.0-48.0) % MCV 90.0 (81.0-99.0) fL MCH 29.2 (26.7-34.0) pg MCHC 32.5 (29.9-35.2) g/dL RDW 13.6 (11.0-15.0) % Plt Count 435 (150-450) 10^3/uL MPV 10.1 (9.5-13.5) fL Neut % (Auto) 70.1 (43.0-75.0) % Lymph % (Auto) 20.8 (20.5-60.0) % [place] % (Auto) 8.1 (1.7-12.0) % Eos % (Auto) 0.4 L (0.9-7.0) % Baso % (Auto) 0.3 (0.2-2.0) % Neut # (Auto) 9.8 H (1.4-6.5) 10^3/uL Lymph # (Auto) 2.9 (1.2-3.8) 10^3/uL [place] # (Auto) 1.1 H (0.3-0.8) 10^3/uL Eos # (Auto) 0.1 (0.0-0.7) 10^3/uL Baso # (Auto) 0.0 (0.0-0.1) 10^3/uL Abs Immat Gran (auto) 0.04 H (0.00-0.03) 10^3/uL Imm/Tot Granulo (auto) 0.3 (0.0-0.5) % Sodium 135 L (136-145) mmol/L Potassium 3.5 (3.5-5.1) mmol/L Chloride 97 L (98-107) mmol/L Carbon Dioxide 26.0 (21.0-32.0) mmol/L Anion Gap 15.5 BUN 18.0 (7.0-18.0) mg/dL Creatinine 1.02 (0.55-1.02) mg/dL Est GFR ( Amer) >60 (>=60) Est GFR (Non-Af Amer) 56 L (>=60) BUN/Creatinine Ratio 17.6 Glucose 111 H (74-106) mg/dL Lactate 2.0 (0.4-2.0) mmol/L Calcium 9.9 (8.5-10.1) mg/dL Total Bilirubin 1.5 H (0.2-1.0) mg/dL AST 15 (15-37) U/L ALT 22 (14-59) U/L Alkaline Phosphatase 123 H (46-116) U/L Total Protein 9.0 H (6.4-8.2) g/dL Albumin 4.1 (3.4-5.0) g/dL Globulin 4.9 g/dL Albumin/Globulin Ratio 0.8 Lipase 37.0 (16.0-77.0) U/L Urine Color Lt. yellow (YELLOW) Urine Clarity Clear (CLEAR) Urine pH 6.0 (5.0-9.0) Ur Specific [place] <=1.005 A (1.005-1.025) Urine Protein Negative (NEG/TRACE) mg/dL Urine Glucose (UA) Negative (NEGATIVE) mg/dL Urine Ketones Negative (NEGATIVE) mg/dL Urine Occult Blood Small A (NEGATIVE) Urine Nitrite Negative (NEGATIVE) Urine Bilirubin Negative (NEGATIVE) Urine Urobilinogen 0.2 (0.2-1.0) EU/dL Ur Leukocyte Esterase Negative (NEGATIVE) Urine RBC 0-2 (0-2) #/HPF Urine WBC None seen (NONE SEEN) #/HPF Ur Squamous Epith Cells None seen (NONE/RARE) #/LPF Urine Crystals None seen (None Seen) #/HPF Urine Bacteria None seen (NONE SEEN) #/HPF Urine Casts None seen (NONE SEEN) #/LPF Urine Mucus None seen (NONE SEEN) Imaging Data CT scan - abdomen: Attestation: I have reviewed the pertinent imaging results. Radiologist's impression: ITS Impressions Abdomen/Pelvis CT 11/23/23 18:19 IMPRESSION: Mild wall thickening of the terminal ileum may be seen with mild mucosal enhancement, which may represent mild inflammatory process/terminal ileitis. Likely mild diffuse fatty infiltration of the liver. Descending and sigmoid colonic diverticulosis without CT evidence for diverticulitis. A 12 mm low density is seen about the mid pole of the right kidney which appears grossly stable since prior examination, and which CT appearance can be seen with mild complex cystic structure. However, a renal ultrasound versus renal MRI with and without contrast may be considered for better evaluation. Electronically authenticated by: LUIS M RIVERA Date: 11/23/2023 20:21 Discharge Plan Discharge Stand Alone Forms: Portal Instructions Chief Complaint: Abdominal Pain Clinical Impression: Gastroenteritis, Norovirus Patient Disposition: Home, Self-Care Time of Disposition Decision: 20:35 Condition: Good Mode of Transportation: EMS Prescriptions / Home Meds: New hyoscyamine sulfate [Levsin] 0.125 mg tablet 0.125 mg PO Q6H PRN (Reason: abdominal pain) Qty: 12 0RF promethazine 25 mg tablet 25 mg PO Q6H PRN (Reason: nausea and vomiting) Qty: 12 0RF No Action albuterol sulfate [Ventolin HFA] 90 mcg/actuation HFA aerosol inhaler 2 puff INHALATION Q4H PRN (Reason: wheezing) Eliquis 5 mg tablet 5 mg PO BID diltiazem HCl 240 mg capsule,extended release 24hr 240 mg PO Q24H ezetimibe 10 mg tablet 10 mg PO DAILY ferrous sulfate 325 mg (65 mg iron) tablet 325 mg PO BID furosemide 40 mg tablet 40 mg PO DAILY isosorbide mononitrate 30 mg tablet extended release 24 hr 30 mg PO DAILY metformin 500 mg tablet 500 mg PO DAILY pantoprazole 40 mg tablet,delayed release (DR/EC) 40 mg PO DAILY potassium chloride 20 mEq tablet extended release 20 meq PO BID rosuvastatin 5 mg tablet 5 mg PO DAILY acetaminophen [Tylenol] 325 mg capsule 650 mg PO .q8 PRN (Reason: pain) Qty: 20 0RF metoprolol succinate 25 mg tablet extended release 24 hr 50 mg PO DAILY hydrocodone-acetaminophen 5-325 mg tablet 1 tab PO Q6H PRN (Reason: pain) 5 Days Qty: 20 0RF Ozempic 0.25 mg or 0.5 mg(2 mg/1.5 mL) pen injector 0.5 mg subcut QWEEK Rx Instructions: Fridays cholecalciferol (vitamin D3) 50 mcg (2,000 unit) capsule ondansetron 4 mg tablet,disintegrating 4 mg PO Q6H PRN (Reason: nausea and vomiting) Qty: 20 0RF Print Language: Arabic Instructions: Acute Nausea and Vomiting (ED), Acute Diarrhea (ED) Referrals: Xavi Ann MD [Primary Care Provider] - 1 week
[2023-11-23 18:25] LABS: Bilirubin Urine NEGATIVE (NEGATIVE); Blood Urine SMALL (NEGATIVE); Clarity Urine CLEAR (CLEAR); Color Urine LT. YELLOW (YELLOW); Glucose Urine UA NEGATIVE (NEGATIVE); Ketones Urine NEGATIVE (NEGATIVE); Leukocyte Esterase Urine NEGATIVE (NEGATIVE); Nitrite Urine NEGATIVE (NEGATIVE); Protein Urine NEGATIVE (NEG/TRACE); Specific Gravity Urine <=1.005 (1.005-1.025); Urobilinogen Urine 0.2 EU/dL (0.2-1.0)
[2023-11-23 18:30] LABS: Urine Microscopic Indicated YES
[2023-11-23] MEDS: HYOSCYAMINE SULFATE 0.125 MG TAB.SUBL SL (18:33)
[2023-11-23 18:36] LABS: Bacteria Urine NONE SEEN #/HPF (NONE SEEN); Cast Seen? NONE SEEN #/LPF (NONE SEEN); Crystals Seen? None Seen #/HPF (None Seen); Mucus Urine NONE SEEN (NONE SEEN); RBC Urine 0-2 #/HPF (0-2); Squamous Epithelial Cell Urine NONE SEEN #/LPF (NONE/RARE); WBC Urine NONE SEEN #/HPF (NONE SEEN)
[2023-11-23] MEDS: 0.9 % SODIUM CHLORIDE 1,000 ML 1000 ML IV (18:39)
[2023-11-23] MEDS: ONDANSETRON PF 4 MG/2 ML VIAL IV (18:39)
[2023-11-23] MEDS: HYDROMORPHONE HCL 1 MG/ML CARTRIDGE 0.5 MG IVP (18:42)
[2023-11-23 18:50] LABS: Alanine Aminotransferase 22 U/L (14-59); Albumin Globulin Ratio 0.8; Albumin Level 4.1 g/dL (3.4-5.0); Alkaline Phosphatase 123 U/L (46-116); Anion Gap 15.5; Aspartate Amino Transferase 15 U/L (15-37); BUN Creatinine Ratio 17.6; Bilirubin Total 1.5 mg/dL (0.2-1.0); Calcium 9.9 mg/dL (8.5-10.1); Chloride 97 mmol/L (98-107); Estimated GFR (African America >60 (>=60); Estimated GFR (Non-African Ame 56 (>=60); Globulin 4.9 g/dL; Glucose 111 mg/dL (74-106); Potassium 3.5 mmol/L (3.5-5.1); Sodium 135 mmol/L (136-145)
[2023-11-23 18:55] VITALS: BP 119/80
[2023-11-23 19:51] VITALS: BP 111/72
[2023-11-23 20:39] VITALS: BP 128/73
== END 2023-11-23 20:50 | disposition home or self-care (01) ==
PROVIDERS: Emergency Medicine; Physician Assistant; Emergency Provider Emergency Medicine; PCP Family Medicine
DX: A08.11 Acute gastroenteropathy due to Norwalk agent (principal); Z87.891 Personal history of nicotine dependence; Z79.899 Other long term (current) drug therapy; Z79.84 Long term (current) use of oral hypoglycemic drugs; Z79.01 Long term (current) use of anticoagulants
CPT/HCPCS: 36415; 74177; 80053; 81001; 83605; 83690; 85025; 96361; 96374; 96375; 99285; J1170; Q9967

== ENCOUNTER 2023-12-15 11:00 | Outpatient (OUT) | payer OTHER, SELFPAY ==
--- NOTE | 2023-12-15 | XR_ITS ---
[address] [address] Patient Name: LEIGHANN TALAMANTES MRN: [id number] date: 1970 Sex: F Assigned Patient Location: Current Patient Location: Accession/Order Number: [id number] Exam Date: 12/15/2023 11:37 Report Date: 12/15/2023 15:05 At the request of: TED DIANE Procedure: XR foot RT min 3V PROCEDURE: XR foot RT min 3V COMPARISON: None. HISTORY: RIGHT FOOT PAIN FINDINGS: BONES:No acute fracture or dislocation. Moderate enthesopathic spurring of the calcaneus at the Achilles and plantar insertions. Moderate hallux valgus deformity. SOFT TISSUES:Negative. No visible soft tissue swelling. EFFUSION:None visible. OTHER: Negative. XR/XR foot RT min 3V IMPRESSION: Moderate hallux valgus Electronically authenticated by: VIVI GARY Date: 12/15/2023 15:05
== END 2023-12-15 11:01 | disposition home or self-care (01) ==
LOC: EC 11:00
PROVIDERS: PCP Family Medicine; Visit Provider Podiatrist Foot & Ankle Surgery
DX: M79.671 Pain in right foot (principal); M20.11 Hallux valgus (acquired), right foot
CPT/HCPCS: 73630

== ENCOUNTER 2023-12-20 09:09 | Outpatient (OUT) | payer OTHER, SELFPAY ==
--- NOTE | 2023-12-20 09:18 | CA_ITS ---
Patient Name: LEIGHANN TALAMANTES MR#: [id number] : 1970 Exam Date: 12/20/2023 Ordering Doctor: JENNA HENDERSON CNP ECHOCARDIOGRAM REPORT PROCEDURE: CA ECHO DOPPLER COMPLETE INDICATIONS: Murmur, Pericardial effusion COMPARISON: None. DESCRIPTION: COMPLETE ECHOCARDIOGRAM Real-time transthoracic echocardiography with 2D, M-mode, spectral and color flow Doppler performed. QUALITY: Technical quality was good. LEFT VENTRICLE: Normal chamber size. Moderate left ventricular hypertrophy. LV EF: Global left ventricular systolic function is hyperdynamic; visually estimated ejection fraction is 65 to 70%. Calculated left ventricular ejection fraction is 63%. DIASTOLIC: Grade 2, moderate diastolic dysfunction. ATRIAL SEPTUM: Inadequately seen. LEFT ATRIUM: Mild dilatation. RIGHT ATRIUM: Mild dilatation. RIGHT VENTRICLE: Normal chamber size. Normal right ventricular systolic function. TRICUSPID VALVE: Normal mobility and thickness. No stenosis with trivial regurgitation. No evidence of pulmonary hypertension. RVSP 21mmHg MITRAL VALVE: Normal mobility and thickness. No evidence of mitral valve stenosis. Mild mitral annular calcification. Trivial mitral regurgitation. AORTIC VALVE: Normal trileaflet appearance. Mildly calcified aortic valve. Normal leaflet mobility. No evidence of aortic valve stenosis. AORTIC ROOT: Normal diameter and appearance. PULMONIC VALVE: Normal thickness and mobility. No stenosis. Trivial regurgitation. PERICARDIUM: Small anterior and trivial posterior pericardial effusion. The anterior effusion appears echodense suggesting thrombus or fibrinous material. IVC: Collapses with inspirations. Normal size. CONCLUSION: 1. Global left ventricular systolic function is hyperdynamic; visually estimated ejection fraction is 65 to 70% 2. Normal right ventricular size and systolic function 3. Moderate left ventricular hypertrophy 4. Biatrial enlargement 5. No significant valvular abnormalities 6. A small anterior and trivial posterior pericardial effusion is seen Adult Echocardiography Procedure Report Left Ventricle LVEDD (3.7 - 5.6 cm): 3.18 cm LVESD (2.2 - 4.0 cm): 2.32 cm LVIVS thickness (0.6 - 1.2 cm): 1.62 cm LVPW thickness (0.5 - 1.0 cm): 1.45 cm e': 0.05 m/s E - e': 16.74 LVOT Max Gradient: 10.89 mm[Hg], 9.08 mm[Hg] LVOT Area (cm2): 1.65 m/s, 1.51 m/s Peak Velocity (LVOT): 1.65 m/s, 1.51 m/s Mean Velocity (LVOT): 1.17 m/s LVOT Diameter 1.89 cm Left Ventricular Ejection Fraction: 62.52 % Left Atrium LA Volume Index (2D A2C): 41.96 ml/m2 Left Atrium Systolic Dimension: 3.73 cm Mitral Valve MV E to A Ratio: 0.71 Mitral Valve A-Wave Peak Velocity: 1.24 m/s Mitral Valve E-Wave Peak Velocity: 0.88 m/s Right Ventricle RV Internal Diastolic Dimension: 3.23 cm Aorta AO Root Diam: 2.88 cm Ascending Ao Diam: 2.43 cm Aortic Valve AoV Area ([place]): 2.51 cm2, 2.51 cm2, 2.29 cm2, 2.29 cm2 AoV Area (VTI): 2.75 cm2, 2.75 cm2 Peak Velocity(Antegrade Flow): 1.84 m/s Peak Gradient(Antegrade Flow): 13.54 mm[Hg] Mean Velocity(Antegrade Flow): 1.34 m/s Mean Gradient(Antegrade Flow): 8.09 mm[Hg] Velocity Time Integral: 38.05 cm Tricuspid Valve Peak Velocity (Regurgitant Flow): 1.60 m/s, 1.67 m/s, 2.13 m/s Pulmonic Valve Mean Gradient: 4.12 mm[Hg], 4.02 mm[Hg] Mean Velocity: 0.95 m/s, 0.94 m/s Peak Velocity: 1.38 m/s Peak Gradient: 7.63 mm[Hg], 7.56 mm[Hg] Right Atrium Right Atrium Systolic Pressure: 36.38 ml, 36.38 ml Dictated by: Cassy Bear M.D. on 12/20/2023 at 16:08 Approved by: Cassy Bear M.D. on 12/20/2023 at 16:13
== END 2023-12-20 09:10 | disposition home or self-care (01) ==
LOC: CARD 09:09
PROVIDERS: PCP Family Medicine; Visit Provider Nurse Practitioner Family
DX: I48.0 Paroxysmal atrial fibrillation (principal); I11.0 Hypertensive heart disease with heart failure; I43 Cardiomyopathy in diseases classified elsewhere; R01.1 Cardiac murmur, unspecified
CPT/HCPCS: 93306

== ENCOUNTER 2023-12-31 07:11 | Outpatient (RCR) | payer OTHER, SELFPAY | END 2024-06-20 14:34 | disposition home or self-care (01) | LOC: CRPH3 07:11 | PROVIDERS: PCP Family Medicine; Visit Provider Nurse Practitioner Family | DX: I48.91 Unspecified atrial fibrillation (principal) ==

== ENCOUNTER 2024-01-28 21:57 | Emergency (ER) | payer OTHER, SELFPAY ==
[2024-01-28 22:10] VITALS: BP 128/83; PULSE 74; TEMP 36.7; O2SAT 96; BMI 33.7
--- NOTE | 2024-01-28 22:43 | ED_ITS ---
HPI - Burn/Smoke Inhalation General Chief complaint: Burn/Smoke Inhalation Stated complaint: BURN, LOWER EXTREMITY Time Seen by Provider: 01/28/24 22:41 Source: patient Mode of arrival: Wheelchair Limitations: no limitations History of Present Illness HPI Narrative: states she burned her right leg 2 weeks ago at work. Describes cutting the area. Now has increased pain, redness and drainage. Complains of pain. no fever. She is diabetic Related Data Home Medications ?Medication ?Instructions ?Recorded ?Confirmed albuterol sulfate 90 mcg/actuation 2 puff inhalation Q4H PRN wheezing 04/18/23 10/14/23 aerosol inhaler (Ventolin HFA) apixaban 5 mg tablet (Eliquis) 5 mg PO BID 04/18/23 11/18/23 diltiazem HCl 240 mg 240 mg PO Q24H 04/18/23 11/18/23 capsule,extended release 24 hr ezetimibe 10 mg tablet 10 mg PO DAILY 04/18/23 11/18/23 ferrous sulfate 325 mg (65 mg 325 mg PO BID 04/18/23 11/18/23 iron) tablet furosemide 40 mg tablet 40 mg PO DAILY 04/18/23 11/18/23 isosorbide mononitrate 30 mg 30 mg PO DAILY 04/18/23 11/18/23 tablet,extended release 24 hr metformin 500 mg tablet 500 mg PO DAILY 04/18/23 11/18/23 pantoprazole 40 mg tablet,delayed 40 mg PO DAILY 04/18/23 11/18/23 release potassium chloride 20 mEq 20 meq PO BID 04/18/23 11/18/23 tablet,extended release rosuvastatin 5 mg tablet 5 mg PO DAILY 04/18/23 11/18/23 metoprolol succinate 25 mg 50 mg PO DAILY 04/28/23 11/18/23 tablet,extended release 24 hr cholecalciferol (vitamin D3) 50 11/18/23 mcg (2,000 unit) capsule semaglutide 0.25 mg or 0.5 mg (2 0.5 mg subcut QWEEK 11/18/23 11/18/23 mg/1.5 mL) subcutaneous pen injector (Ozempic) lisinopril 5 mg tablet mg 01/28/24 Previous Rx's ?Medication ?Instructions ?Recorded acetaminophen 325 mg capsule 650 mg (2 x 325 mg) PO .q8 PRN 04/18/23 (Tylenol) pain #20 caps hydrocodone 5 mg-acetaminophen 325 1 tab PO Q6H PRN pain 5 days #20 11/14/23 mg tablet tabs ondansetron 4 mg disintegrating 4 mg PO Q6H PRN nausea and 11/19/23 tablet vomiting #20 tabs hyoscyamine sulfate 0.125 mg 0.125 mg PO Q6H PRN abdominal pain 11/23/23 tablet (Levsin) #12 tabs promethazine 25 mg tablet 25 mg PO Q6H PRN nausea and 11/23/23 vomiting #12 tabs Allergies Allergy/AdvReac Type Severity Reaction Status Date / Time morphine Allergy Intermediate Palpitation Verified 01/28/24 22:13 s Review of Systems ROS Status of ROS 10 or more systems reviewed and unremark able except as noted in history and below [facility] Social History Smoking status: Former smoker Exam Constitutional Vital Signs, click to edit/add: Last Vital Signs Temp 98.1 F 01/28/24 22:10 Pulse 74 01/28/24 22:10 Resp 18 01/28/24 22:10 BP 128/83 01/28/24 22:10 Pulse Ox 96 01/28/24 22:10 O2 Del Method Room Air 01/28/24 22:10 Common normals: no apparent distress, average body habitus, oriented x3, no limitations, healthy appearing, alert and well nourished [facility] Common normals: normocephalic and head/scalp atraumatic Respiratory Common normals: normal respiratory effort, no retractions, no use of accessory muscles and clear to auscultation bilaterally Cardio Common normals: regular rate, regular rhythm, S1 normal heart sound and S2 normal heart sound Extremity Other: lat. aspect of right lower leg with faint erythema. central aspect of the area with open wound that is draining. minor swelling Neuro Common normals: oriented x3, CN's II-XII intact bilaterally and moves all extremities Psych Appearance: grossly normal Diann-Ning/Rule Nines Burn ? Citation [email or web address]://[email or web address].nlm.gov/clement.htm Course Vital Signs Vital signs: Vital Signs Temperature 98.1 F 01/28/24 22:10 Pulse Rate 74 07/12/24 22:10 Respiratory Rate 18 01/28/24 22:10 Blood Pressure 128/83 01/28/24 22:10 Pulse Oximetry 96 01/28/24 22:10 Oxygen Delivery Method Room Air 01/28/24 22:10 Temperature 98.1 F 01/28/24 22:10 Pulse Rate 74 01/28/24 22:10 Respiratory Rate 18 01/28/24 22:10 Blood Pressure 128/83 01/28/24 22:10 Pulse Oximetry 96 01/28/24 22:10 Oxygen Delivery Method Room Air 01/28/24 22:10 MDM - Burn/Smoke Inhalation MDM Narrative Medical decision making narrative: patient burned her right leg over 2 weeks ago. She is diabetic. She decided to cut the the site. Now she presents with drainage and erythema that has spread and increasing pain. No fever, chills or nausea. Treated with IV clindamycin and discharged with plans for close follow up Lab Data Labs: Lab Results 01/28/24 Range/Units 23:13 WBC 14.4 H (4.0-11.0) 10^3/uL RBC 4.10 L (4.20-5.40) 10^6/uL Hgb 12.2 (12.0-16.0) g/dL Hct 38.6 (36.0-48.0) % MCV 94.1 (81.0-99.0) fL MCH 29.8 (26.7-34.0) pg MCHC 31.6 (29.9-35.2) g/dL RDW 14.6 (11.0-15.0) % Plt Count 285 (150-450) 10^3/uL MPV 10.5 (9.5-13.5) fL Neut % (Auto) 71.3 (43.0-75.0) % Lymph % (Auto) 21.2 (20.5-60.0) % [place] % (Auto) 6.8 (1.7-12.0) % Eos % (Auto) 0.2 L (0.9-7.0) % Baso % (Auto) 0.2 (0.2-2.0) % Neut # (Auto) 10.3 H (1.4-6.5) 10^3/uL Lymph # (Auto) 3.1 (1.2-3.8) 10^3/uL [place] # (Auto) 1.0 H (0.3-0.8) 10^3/uL Eos # (Auto) 0.0 (0.0-0.7) 10^3/uL Baso # (Auto) 0.0 (0.0-0.1) 10^3/uL Abs Immat Gran (auto) 0.05 H (0.00-0.03) 10^3/uL Imm/Tot Granulo (auto) 0.3 (0.0-0.5) % ESR 70 H (<=30) mm/hr Sodium 140 (136-145) mmol/L Potassium 4.4 (3.5-5.1) mmol/L Chloride 103 (98-107) mmol/L Carbon Dioxide 30.2 (21.0-32.0) mmol/L Anion Gap 11.2 BUN 18.0 (7.0-18.0) mg/dL Creatinine 0.82 (0.55-1.02) mg/dL Est GFR ( Amer) >60 (>=60) Est GFR (Non-Af Amer) >60 (>=60) BUN/Creatinine Ratio 22.0 Glucose 95 (74-106) mg/dL Calcium 8.9 (8.5-10.1) mg/dL C-Reactive Protein 0.64 H (<=0.50) mg/dL Discharge Plan Discharge Stand Alone Forms: Portal Instructions Chief Complaint: Burn/Smoke Inhalation Clinical Impression: Cellulitis of right leg Patient Disposition: Home, Self-Care Prescriptions / Home Meds: No Action albuterol sulfate [Ventolin HFA] 90 mcg/actuation HFA aerosol inhaler 2 puff INHALATION Q4H PRN (Reason: wheezing) Eliquis 5 mg tablet 5 mg PO BID diltiazem HCl 240 mg capsule,extended release 24hr 240 mg PO Q24H ezetimibe 10 mg tablet 10 mg PO DAILY ferrous sulfate 325 mg (65 mg iron) tablet 325 mg PO BID furosemide 40 mg tablet 40 mg PO DAILY isosorbide mononitrate 30 mg tablet extended release 24 hr 30 mg PO DAILY metformin 500 mg tablet 500 mg PO DAILY pantoprazole 40 mg tablet,delayed release (DR/EC) 40 mg PO DAILY potassium chloride 20 mEq tablet extended release 20 meq PO BID rosuvastatin 5 mg tablet 5 mg PO DAILY acetaminophen [Tylenol] 325 mg capsule 650 mg PO .q8 PRN (Reason: pain) Qty: 20 0RF metoprolol succinate 25 mg tablet extended release 24 hr 50 mg PO DAILY lisinopril 5 mg tablet hydrocodone-acetaminophen 5-325 mg tablet 1 tab PO Q6H PRN (Reason: pain) 5 Days Qty: 20 0RF Ozempic 0.25 mg or 0.5 mg(2 mg/1.5 mL) pen injector 0.5 mg subcut QWEEK Rx Instructions: Fridays cholecalciferol (vitamin D3) 50 mcg (2,000 unit) capsule ondansetron 4 mg tablet,disintegrating 4 mg PO Q6H PRN (Reason: nausea and vomiting) Qty: 20 0RF hyoscyamine sulfate [Levsin] 0.125 mg tablet 0.125 mg PO Q6H PRN (Reason: abdominal pain) Qty: 12 0RF promethazine 25 mg tablet 25 mg PO Q6H PRN (Reason: nausea and vomiting) Qty: 12 0RF Print Language: Ukrainian Instructions: Cellulitis (ED) Additional Instructions: follow up with Dr Ann early next week Referrals: Xavi Ann MD [Primary Care Provider] - 1 week
[2024-01-28 23:28] LABS: Basophils Percent Auto 0.2 % (0.2-2.0); Eosinophils Percent Auto 0.2 % (0.9-7.0); Hematocrit 38.6 % (36.0-48.0); Hemoglobin 12.2 g/dL (12.0-16.0); Immature Granulocytes Abs Auto 0.05 10^3/uL (0.00-0.03); Immature Granulocytes Pct Auto 0.3 % (0.0-0.5); Lymphocytes Absolute Auto 3.1 10^3/uL (1.2-3.8); Lymphocytes Percent Auto 21.2 % (20.5-60.0); Mean Corpuscular HGB Conc 31.6 g/dL (29.9-35.2); Mean Corpuscular Hemoglobin 29.8 pg (26.7-34.0); Mean Corpuscular Volume 94.1 fL (81.0-99.0); Mean Platelet Volume 10.5 fL (9.5-13.5); Monocytes Percent Auto 6.8 % (1.7-12.0); Neutrophils Absolute Auto 10.3 10^3/uL (1.4-6.5); Neutrophils Percent Auto 71.3 % (43.0-75.0); Platelet Count 285 10^3/uL (150-450); Red Cell Distribution Width 14.6 % (11.0-15.0); White Blood Count 14.4 10^3/uL (4.0-11.0)
[2024-01-28] MEDS: CLINDAMYCIN PHOSPHATE/D5W 900 MG/50 ML PIGGYBACK 100 MG IV (23:29)
[2024-01-28] MEDS: HYDROCODONE/ACET 5-325 MG TABLET 2 TAB PO (23:29)
[2024-01-28 23:38] LABS: Anion Gap 11.2; C Reactive Protein 0.64 mg/dL (<=0.50); Calcium 8.9 mg/dL (8.5-10.1); Carbon Dioxide 30.2 mmol/L (21.0-32.0); Chloride 103 mmol/L (98-107); Estimated GFR (African America >60 (>=60); Estimated GFR (Non-African Ame >60 (>=60); Glucose 95 mg/dL (74-106); Potassium 4.4 mmol/L (3.5-5.1); Sodium 140 mmol/L (136-145)
[2024-01-28 23:43] LABS: Erythrocyte Sedimentation Rate 70 mm/hr (<=30)
[2024-01-29] MEDS: CLINDAMYCIN HCL 150 MG CAPSULE 300 MG PO (00:36)
== END 2024-01-29 00:44 | disposition home or self-care (01) ==
PROVIDERS: Emergency Provider Internal Medicine; PCP Family Medicine
DX: L03.115 Cellulitis of right lower limb (principal); E11.9 Type 2 diabetes mellitus without complications; Z87.891 Personal history of nicotine dependence
CPT/HCPCS: 36415; 80048; 85025; 85652; 86140; 96365; 99284; J0736

== ENCOUNTER 2024-03-10 10:50 | Outpatient (RCR) | payer OTHER, SELFPAY ==
[2024-03-09 14:15] VITALS: BP 132/77; PULSE 77; TEMP 36.6; O2SAT 96
[2024-03-09 15:08] LABS: Basophils Percent Auto 0.3 % (0.2-2.0); Eosinophils Percent Auto 0.2 % (0.9-7.0); Hematocrit 40.2 % (36.0-48.0); Hemoglobin 13.1 g/dL (12.0-16.0); Immature Granulocytes Abs Auto 0.02 10^3/uL (0.00-0.03); Immature Granulocytes Pct Auto 0.2 % (0.0-0.5); Lymphocytes Absolute Auto 2.2 10^3/uL (1.2-3.8); Lymphocytes Percent Auto 22.4 % (20.5-60.0); Mean Corpuscular HGB Conc 32.6 g/dL (29.9-35.2); Mean Corpuscular Hemoglobin 30.3 pg (26.7-34.0); Mean Corpuscular Volume 93.1 fL (81.0-99.0); Mean Platelet Volume 11.7 fL (9.5-13.5); Monocytes Absolute Auto 0.6 10^3/uL (0.3-0.8); Monocytes Percent Auto 6.5 % (1.7-12.0); Neutrophils Percent Auto 70.4 % (43.0-75.0); Platelet Count 253 10^3/uL (150-450); Red Blood Count 4.32 10^6/uL (4.20-5.40); Red Cell Distribution Width 14.8 % (11.0-15.0); White Blood Count 9.9 10^3/uL (4.0-11.0)
[2024-03-09] MEDS: 0.9 % SODIUM CHLORIDE 1,000 ML 1000 ML IV (15:08)
[2024-03-09 15:23] LABS: Alanine Aminotransferase 18 U/L (14-59); Albumin Globulin Ratio 0.8; Albumin Level 3.6 g/dL (3.4-5.0); Alkaline Phosphatase 97 U/L (46-116); Anion Gap 14.7; Aspartate Amino Transferase 16 U/L (15-37); BUN Creatinine Ratio 13.5; Bilirubin Total 0.9 mg/dL (0.2-1.0); Calcium 8.9 mg/dL (8.5-10.1); Carbon Dioxide 25.1 mmol/L (21.0-32.0); Chloride 102 mmol/L (98-107); Estimated GFR (African America >60 (>=60); Estimated GFR (Non-African Ame 51 (>=60); Globulin 4.3 g/dL; Glucose 101 mg/dL (74-106); Potassium 3.8 mmol/L (3.5-5.1); Sodium 138 mmol/L (136-145); Total Protein 7.9 g/dL (6.4-8.2)
--- OUTSIDE RECORDS SUMMARY | 2024-03-10 10:51 | XMS_ITS | CCD ---
Author Organization [facility] Care Team Providers Care Rack Room Worker Name Role Phone CASSY BEAR A Admitting Unavailable CASSY BEAR Attending Unavailable PHILLIP ANN Referring Unavailable PHILLIP ANN Primary Care Unavailable PHILLIP ANN Referring Unavailable XIAO TORRES Surgeon Unavailable ORLIN HUI Attending Unavailable CALLI PAIGE Admitting Unavailable [place] Procedure Practitioner Unavailab PHILLIP Muñoz Primary Care Unavailable [place] Procedure Practitioner Unavailab Dunia Light Surgeon UnavailPhillip Chan Primary Care Physician [phone] Juan Miguel SALINAS Attending Unavailable Phillip Ann [...] PAY ., DR SOTO Admitting Unavailable PRABHU, GALI Consulting Unavailable TREVIN ., EMILY Attending Unavailable [...] Unavailable HOY ., DR FISHER Admitting Unavailable CARATUNK, DR VIVI Wyman Consulting Unavailable STACY VILLALTA Attending Unavailable MANOJ, CURTIS Referring Unavailable MANOJ, CURTIS Referring Unavailable MANOJ, CURTIS Referring Unavailable MANOJ, CURTIS Referring Unavailable MANOJ, CURTIS Referring Unavailable MANOJ, CURTIS Referring Unavailable MANOJ, CURTIS Referring Unavailable MANOJ, CURTIS Referring Unavailable MANOJ, CURTIS Referring Unavailable SANTIAGOJENNA WEISS Attending Unavailable MANOJ, CURTIS Referring Unavailable Allergies Allergy Classification Reported Allergen(s) Allergy Type Date of Onset Reaction(s) Facility (4 sources) Morphine; Translations: [morphine] Drug Allergy 9 [facility] Repository (1 source) 76543,00; Translations: [33625,00] Propensity to adverse reactions (disorder) 0 [facility] Repository (1 source) Morphine; Translations: [morphine] Drug Allergy Feeling nervous (finding), Tachycardia (finding) [facility] [place] (1 source) No Known Medication Allergies; Translations: [No Known Medication Allergies] Propensity to adverse reactions (disorder) [facility] Repository (1 source) dulaglutide; Translations: [DULAGLUTIDE] Drug Allergy 3 [facility] Repository Medications Current Medications Medication Drug Class(es) Dates Sig (Normalized) Sig (Original) [id number] 200 actuat albuterol 0.09 mg/actuat metered dose [...] [Paroxysmal atrial fibrillation] Onset: 08-11-2022 09-03-2022 Chronic Cardiac dysrhythmias (2 sources) Palpitations; Translations: [Palpitations] Onset: 12-28-2023 Episodic Chronic obstructive pulmonary disease and bronchiectasis (3 sources) Chronic obstructive lung disease; Translations: [Chronic obstructive pulmonary disease with (acute) lower respiratory infection] Onset: 11-19-2022 09-03-2022 Chronic Congestive heart failure; nonhypertensive (1 source) Chronic diastolic heart failure 09-03-2022 Chronic Coronary atherosclerosis and other heart disease (1 source) Atherosclerotic heart disease of [place] coronary artery without angina pectoris; Translations: [ASHD LA POSTA CA W/O ANGINA PECTORIS] Onset: 08-11-2022 Chronic [...] including migraine; Translations: [HEADACHE UNSPECIFIED] Onset: 11-19-2022 Hypertension with complications and secondary hypertension (2 [...] Onset: 09-13-2022 Chronic Other aftercare (1 source) jail (current) use of anticoagulants; Translations: [CUSTOMER EXPERIENCE CONSULTANT CURRNT USE ANTICOAGULANTS] Onset: 11-19-2022 Episodic Other aftercare (1 source) Other prison (current) drug therapy; Translations: [OTH CUSTOMER EXPERIENCE CONSULTANT CURRENT DRUG THERAPY] Onset: 11-19-2022 Episodic Other aftercare (1 source) exterminator termite (current) use of oral hypoglycemic drugs; Translations: [CUSTOMER EXPERIENCE CONSULTANT USE ORAL HYPOGLYCEMIC DX] Onset: 11-19-2022 Episodic [...] Classification Problem Date Documented Da te Episodic/Chronic Fluid and electrolyte disorders (2 sources) Hypokalemia; Translations: [Hypokalemia] Onset: 10-26-2023 Episodic Gastritis and duodenitis (1 source) Gastritis, unspecified, without bleeding; Translations: [GASTRITIS UNS WITHOUT BLEEDING] Onset: 08-11-2022 Episodic Heart valve disorders (2 sources) Cardiac murmur, unspecified; Translations: [Cardiac murmur, unspecified] Onset: 10-26-2023 Episodic Other lower respiratory disease (1 source) Personal history of pneumonia (recurrent); Translations: [PERSONAL HX OF PNEUMONIA RECURRENT] Onset: 08-11-2022 Episodic Other lower respiratory disease (2 sources) Shortness of breath; Translations: [Shortness of breath] Onset: 08-11-2022 Episodic Other upper respiratory disease (1 source) Nasal congestion; Translations: [NASAL CONGESTION] Onset: 07-18-2022 Episodic Unclassified (1 source) COUGH, UNSPECIFIED; Translations: [COUGH, UNSPECIFIED] Onset: 11-17-2022 Unclassified (1 source) CONTACT W/AND (SUSP) EXPOS COVID-19; Translations: [CONTACT W/AND (SUSP) EXPOS COVID-19] Onset: 07-16-2022 Results Test Name Value Interpretation Reference Range Facility 01-12-2024 36 BP is elevated. I encourage diet and routine exercise which can help her BP. In the mean time, would like to start her on lisinopril 5mg daily with follow-up BMP in 2 weeks. Thanks! Normal [facility] 01-11-2024 36 Pt calling with bp's 156/83 133/78 147/80 146/78 157/72 148/80 120/80 Normal [facility] 12-23-2023 36 Regarding echo perfo rmed on 12/20/2023: NILDA Ruelas MA Please let her know her ECHO showed no valve changes. There was some increase in the muscle tissue which can be from elevated blood pressures. Please ask her, if she can, monitor her BP 2-3 days a week 1-2 hours after medications. If BP runs >130/90 consistently to let us know. Thanks! Spoke with patient and she says her BP usually runs around 140 systolic, but sometimes is also 110-115 systolic. I asked her to monitor 2-3 times weekly, 1-2 hours after medications and call us back in a few weeks with readings. She verbalized understanding. Normal [facility] Telephoneon 12-23-2023 Telephone [id number] Cyndi Alvarez 1970 F Date Provider Department [place] 12/23/2023 AbelMIGUEL ESPITIA TISH [facility] Family History Problem Relation Age of Onset Breast cancer Mother Aneurysm Mother Stroke Mother Heart attack Father Coronary artery disease Father Family Status - Relation Status Age at Mother Father [facility] 36on 11-10-2023 36 Call reference # [id number]. - Approval # [id number] approved from 11/05/23 - 01/04/24. Normal [facility] Office Visiton 10-26-2023 Follow-up visit [id number] Cyndi Alvarez 1970 Date Provider Department [place] 10/26/2023 [facility] Family History Problem Relation Age of Onset Breast cancer Mother Aneurysm Mother Stroke Mother Heart attack Father Coronary artery disease Father Family Status - Relation Status Age at Mother Father Level of Service:98711 MO OFFICE/OUTPATIENT ESTABLISHED MOD MDM 30 MIN Reason for Visit and Comments: Atrial Flutter [101] Congestive Heart Failure [127] Normal [facility] Office Visiton 05-05-2023 Follow-up visit [id number] Cyndi Alvarez 1970 Date Provider Department [place] 05/05/2023 STACY RODRIGUEZ [facility] Family History Problem Relation Age of Onset Breast cancer Mother Aneurysm Mother Stroke Mother Heart attack Father Coronary artery disease Father Family Status - Relation Status Age at Mother Father Level of Service:86456 MO OFFICE/OUTPATIENT ESTABLISHED MOD MDM 30-39 MIN [facility] CBC AUTO DIFFon 10-28-2022 BASO # 0.0 103/ul Normal 0.0-0.1 [facility] Comment on above: Performed By: #### L IPID, CMP, T4, TSH, FT3 #### [facility] [address] [place] [address] Dr. Mendel Herron Basophils/100 WBC (Bld) 0.2 % Normal 0.2-2.0 [facility] Comment on above: Performed By: #### L IPID, CMP, T4, TSH, FT3 #### [facility] [address] [place] [address] Dr. Mendel Herron EO # 0.0 103/ul Normal 0.0-0.7 [facility] Comment on above: Performed By: #### L IPID, CMP, T4, TSH, FT3 #### [facility] [address] [place] [address] Dr. Mendel Herron Eosinophils/100 WBC (Bld) 0.3 % Critically low 0.9-7.0 [facility] Comment on above: Performed By: #### L IPID, CMP, T4, TSH, FT3 #### [facility] [address] [place] [address] Dr. Mendel Herron Erythrocyte distribution width (RBC) [Ratio] 13.6 % Normal 11.0-15.0 [facility] Comment on above: Performed By: #### L IPID, CMP, T4, TSH, FT3 #### [facility] [address] [place] [address] Dr. Mendel Herron Hematocrit (Bld) [Volume fraction] 40.1 % Normal 36.0-48.0 [facility] Comment on above: Performed By: #### L IPID, CMP, T4, TSH, FT3 #### [facility] [address] [place] [address] Dr. Mendel Herron Hemoglobin (Bld) [Mass/Vol] 13.0 g/dL Normal 12.0-16.0 [facility] Comment on above: Performed By: #### L IPID, CMP, T4, TSH, FT3 #### [facility] [address] [place] [address] Dr. Mendel Herron IG # 0.06 10e3/ul Critically high 0.00-0.03 [facility] Comment on above: Performed By: #### L IPID, CMP, T4, TSH, FT3 #### [facility] [address] [place] [address] Dr. Mendel Herron IG % 0.5 % Normal 0.0-0.5 [facility] Comment on above: Performed By: #### L IPID, CMP, T4, TSH, FT3 #### [facility] [address] [place] [address] Dr. Mendel Herron LYMPH # 2.8 103/ul Normal 1.2-3.8 [facility] Comment on above: Performed By: #### L IPID, CMP, T4, TSH, FT3 #### [facility] [address] [place] [address] Dr. Mendel Herron Lymphocytes/100 WBC (Bld) 22.4 % Normal 20.5-60.0 [facility] Comment on above: Performed By: #### L IPID, CMP, T4, TSH, FT3 #### [facility] [address] [place] [address] Dr. Mendel Herron MANUAL DIFF REQ NO Normal [facility] Comment on above: Performed By: #### L IPID, CMP, T4, TSH, FT3 #### [facility] [address] [place] [address] Dr. Mendel Herron MCH (RBC) [Entitic mass] 30.8 pg Normal 26.7-34.0 [facility] Comment on above: Performed By: #### L IPID, CMP, T4, TSH, FT3 #### [facility] [address] [place] [address] Dr. Mendel Herron MCHC (RBC) [Mass/Vol] 32.4 g/dL Normal 29.9-35.2 [facility] Comment on above: Performed By: #### L IPID, CMP, T4, TSH, FT3 #### [facility] [address] [place] [address] Dr. Mendel Herron MCV (RBC) [Entitic vol] 95.0 fL Normal 81.0-99.0 [facility] Comment on above: Performed By: #### L IPID, CMP, T4, TSH, FT3 #### [facility] [address] [address] [address] Mendel Herron MONO # 0.9 103/ul Critically high 0.3-0.[address] [facility] Comment on above: Performed By: #### L IPID, CMP, T4, TSH, FT3 #### [facility] [address] [place] [address] Dr. Mendel Herron Monocytes/100 WBC (Bld) 7.2 % Normal 1.7-12.0 [facility] Comment on above: Performed By: #### L IPID, CMP, T4, TSH, FT3 #### [facility] [address] [place] [address] Dr. Mendel Herron NEUT # 8.6 103/ul Critically high 1.4-6.[address] [facility] Comment on above: Performed By: #### L IPID, CMP, T4, TSH, FT3 #### [facility] [address] [place] [address] Dr. Mendel Herron Neutrophils/100 WBC (Bld) 69.4 % Normal 43.0-75.0 [facility] Comment on above: Performed By: #### L IPID, CMP, T4, TSH, FT3 #### [facility] [address] [place] [address] Dr. Mendel Herron Platelet mean volume (Bld) [Entitic vol] 9.9 fL Normal 9.5-13.5 [facility] Comment on above: Performed By: #### L IPID, CMP, T4, TSH, FT3 #### [facility] [address] [place] [address] Dr. Mendel Herron PLT 297 103/ul Normal 150-450 [facility] Comment on above: Performed By: #### L IPID, CMP, T4, TSH, FT3 #### [facility] [address] [place] [address] Dr. Mendel Herron RBC 4.22 106/ul Normal 4.20-5.40 [facility] Comment on above: Performed By: #### L IPID, CMP, T4, TSH, FT3 #### [facility] [address] [address] [address] Mendel Herrno WBC 12.4 103/ul Critically high 4.0-11.0 [facility] Comment on above: Performed By: #### L IPID, CMP, T4, TSH, FT3 #### [facility] [address] [address] [address] Mendel Herron CRPon 10-28-2022 CRP 1.3 mg/dL Critically high <=1.0 [facility] Comment on above: Performed By: #### L IPID, CMP, T4, TSH, FT3 #### [facility] [address] [address] [address] Mendel Herron PROF CHEM 8 (BAS METB)on Anion gap [Moles/Vol] 13.6 mmol/L Normal [facility] Comment on above: Performed By: #### L IPID, CMP, T4, TSH, FT3 #### [facility] [address] [address] [address] Mendel Herron Calcium [Mass/Vol] 9.3 mg/dL Normal 8.5-10.[address] [facility] Comment on above: Performed By: #### L IPID, CMP, T4, TSH, FT3 #### [facility] [address] [address] [address] Mendel Herron Chloride [Moles/Vol] 102 mmol/L Normal 98-107 [facility] Comment on above: Performed By: #### L IPID, CMP, T4, TSH, FT3 #### [facility] [address] [address] [address] Mendel Herron CO2 [Moles/Vol] 30.7 mmol/L Normal 21.0-32.0 [facility] Comment on above: Performed By: #### L IPID, CMP, T4, TSH, FT3 #### [facility] [address] [address] [address] Mendel Herron Creatinine [Mass/Vol] 0.85 mg/dL Normal 0.55-1.02 [facility] Comment on above: Performed By: #### L IPID, CMP, T4, TSH, FT3 #### [facility] [address] [address] [address] Mendel Herron EGFR-AF LIBERIAN >60 Normal >=60 [facility] Comment on above: Performed By: #### L IPID, CMP, T4, TSH, FT3 #### [facility] [address] [place] [address] Dr. Mendel Herron EGFR-NON AF LIBERIAN >60 Normal >=60 [facility] Comment on above: Performed By: #### L IPID, CMP, T4, TSH, FT3 #### [facility] [address] [place] [address] Dr. Mendel Herron Glucose [Mass/Vol] 101 mg/dL Normal 74-[address] [facility] Comment on above: Performed By: #### L IPID, CMP, T4, TSH, FT3 #### [facility] [address] [address] [address] Mendel Herron Potassium [Moles/Vol] 3.3 mmol/L Critically low 3.5-5.1 [facility] Comment on above: Performed By: #### L IPID, CMP, T4, TSH, FT3 #### [facility] [address] [place] [address] Dr. Mendel Herron Sodium [Moles/Vol] 143 mmol/L Normal 136-145 [facility] Comment on above: Performed By: #### L IPID, CMP, T4, TSH, FT3 #### [facility] [address] [place] [address] Dr. Mendel Herron Urea nitrogen [Mass/Vol] 12.0 mg/dL Normal 7.0-18.0 [facility] Comment on above: Performed By: #### L IPID, CMP, T4, TSH, FT3 #### [facility] [address] [place] [address] Dr. Mendel Herron Urea nitrogen/Creatinine [Mass ratio] 14.1 mg/mg Normal [facility] Comment on above: Performed By: #### L IPID, CMP, T4, TSH, FT3 #### [facility] [address] [place], [place] [address] Dr. Mendel Herron URIC ACID SERUMon 10-28-2022 Urate [Mass/Vol] 7.8 mg/dL Critically high 2.6-6.0 [facility] Comment on above: Performed By: #### L IPID, CMP, T4, TSH, FT3 #### [facility] [address] [place], [place] [address] Dr. Mendel Herron XR TOES RT MIN [...] GAIL PELLETIER Date: 2022-10-28 20:53 Normal [facility] Covid-19 PCR ([facility])on SARS-CoV-2 (COVID-19) RNA DEIRDRE+probe Ql (Unsp spec) Not detected Normal NOT DETECTED [facility] Comment on above: Result Comment: When [...] for this test is supported by the [place] of Health and Human Service's declaration that [...] L IPID, CMP, T4, TSH, FT3 #### [facility] [address] [place] [address] Dr. Mendel Herron Consent for Procedure/Surger yon 09-17-2022 Consent for Procedure/Surgery [id number]: 127 Normal [facility] Facesheeton 09-17-2022 Facesheet [id number]#1.00CD: 127 [facility] Pre-Certification Formon Pre-Certification Form [id number]#1.00CD: 127 [facility] Ambulatory Visit Summaryon 0 09-15-2022 [...] Pulmonary HTN Pure hypercholesterolemia RUQ pain Normal [facility] ED Note-Physicianon 09-14-19 ED Note-Physician [id number]: 127 Normal [facility] RAD - MISCon 09-14-2022 RAD - MISC [id number] 2021 [id number]#1.00CD: 127 Normal [facility] RAD - Ultrasound Reporton RAD - Ultrasound Report [id number]#1.00CD: 127 Normal [facility] CBC AUTO DIFFon 09-09-2022 BASO # 0.1 103/ul Normal 0.0-0.1 [facility] Comment on above: Performed By: #### L IPID, CMP, T4, TSH, FT3 #### [facility] [address] [address] [address] Mendel Herron Basophils/100 WBC (Bld) 0.7 % Normal 0.2-2.0 [facility] Comment on above: Performed By: #### L IPID, CMP, T4, TSH, FT3 #### [facility] [address] [address] [address] Mendel Herron EO # 0.1 103/ul Normal 0.0-0.7 [facility] Comment on above: Performed By: #### L IPID, CMP, T4, TSH, FT3 #### [facility] [address] [place] [address] Dr. Mendel Herron Eosinophils/100 WBC (Bld) 0.7 % Critically low 0.9-7.0 [facility] Comment on above: Performed By: #### L IPID, CMP, T4, TSH, FT3 #### [facility] [address] [address] [address] Mendel Herron Erythrocyte distribution width (RBC) [Ratio] 13.1 % Normal 11.0-15.0 [facility] Comment on above: Performed By: #### L IPID, CMP, T4, TSH, FT3 #### [facility] [address] [place] [address] Dr. Mendel Herron Hematocrit (Bld) [Volume fraction] 43.7 % Normal 36.0-48.0 [facility] Comment on above: Performed By: #### L IPID, CMP, T4, TSH, FT3 #### [facility] [address] [place] [address] Dr. Mendel Herron Hemoglobin (Bld) [Mass/Vol] 14.4 g/dL Normal 12.0-16.0 [facility] Comment on above: Performed By: #### L IPID, CMP, T4, TSH, FT3 #### [facility] [address] [place] [address] Dr. Mendel Herron IG # 0.11 10e3/ul Critically high 0.00-0.03 [facility] Comment on above: Performed By: #### L IPID, CMP, T4, TSH, FT3 #### [facility] [address] [place] [address] Dr. Mendel Herron IG % 1.3 % Critically high 0.0-0.5 [facility] Comment on above: Performed By: #### L IPID, CMP, T4, TSH, FT3 #### [facility] [address] [place] [address] Dr. Mendel Herron LYMPH # 2.4 103/ul Normal 1.2-3.8 [facility] Comment on above: Performed By: #### L IPID, CMP, T4, TSH, FT3 #### [facility] [address] [place] [address] Dr. Mendel Herron Lymphocytes/100 WBC (Bld) 27.9 % Normal 20.5-60.0 [facility] Comment on above: Performed By: #### L IPID, CMP, T4, TSH, FT3 #### [facility] [address] [place] [address] Dr. Mendel Herron MANUAL DIFF REQ NO Normal [facility] Comment on above: Performed By: #### L IPID, CMP, T4, TSH, FT3 #### [facility] [address] [place] [address] Dr. Mendel Herron MCH (RBC) [Entitic mass] 31.0 pg Normal 26.7-34.0 [facility] Comment on above: Performed By: #### L IPID, CMP, T4, TSH, FT3 #### [facility] [address] [place] [address] Dr. Mendel Herron MCHC (RBC) [Mass/Vol] 33.0 g/dL Normal 29.9-35.2 [facility] Comment on above: Performed By: #### L IPID, CMP, T4, TSH, FT3 #### [facility] [address] [place] [address] Dr. Mendel Herron MCV (RBC) [Entitic vol] 94.0 fL Normal 81.0-99.0 [facility] Comment on above: Performed By: #### L IPID, CMP, T4, TSH, FT3 #### [facility] [address] [place] [address] Dr. Mendel Herron MONO # 0.5 103/ul Normal 0.3-0.8 [facility] Comment on above: Performed By: #### L IPID, CMP, T4, TSH, FT3 #### [facility] [address] [place] [address] Dr. Mendel Herron Monocytes/100 WBC (Bld) 6.0 % Normal 1.7-12.0 [facility] Comment on above: Performed By: #### L IPID, CMP, T4, TSH, FT3 #### [facility] [address] [place] [address] Dr. Mendel Herron NEUT # 5.4 103/ul Normal 1.4-6.5 [facility] Comment on above: Performed By: #### L IPID, CMP, T4, TSH, FT3 #### [facility] [address] [address] [address] Mendel Herron Neutrophils/100 WBC (Bld) 63.4 % Normal 43.0-75.0 [facility] Comment on above: Performed By: #### L IPID, CMP, T4, TSH, FT3 #### [facility] [address] [place] [address] Dr. Mendel Herron Platelet mean volume (Bld) [Entitic vol] 9.8 fL Normal 9.5-13.5 [facility] Comment on above: Performed By: #### L IPID, CMP, T4, TSH, FT3 #### [facility] [address] [place] [address] Dr. Mendel Herron PLT 398 103/ul Normal 150-450 [facility] Comment on above: Performed By: #### L IPID, CMP, T4, TSH, FT3 #### [facility] [address] [place] [address] Dr. Mendel Herron RBC 4.65 106/ul Normal 4.20-5.40 [facility] Comment on above: Performed By: #### L IPID, CMP, T4, TSH, FT3 #### [facility] [address] [place] [address] Dr. Mendel Herron WBC 8.6 103/ul Normal 4.0-11.0 [facility] Comment on above: Performed By: #### L IPID, CMP, T4, TSH, FT3 #### [facility] [address] [place] [address] Dr. Mendel Herron FREE T3on 09-09-2022 FREE T3 2.59 pg/mlL Normal 2.18-3.98 [facility] Comment on above: Performed By: #### L IPID, CMP, T4, TSH, FT3 #### [facility] [address] [address] [address] Mendel Herron GLYCOHEMOGLOBIN A1Con 2022 ADA RECOMMENDATION SEE BELOW Normal [facility] Comment on above: Result Comment: ADA RECOMMENDED LIMIT 4.0 - 6.0 ADA THERAPEUTIC TARGET < 7.0 ACTION SUGGESTED > 7.0 Performed By: #### A 1C #### [facility] [address] [place] [address] Dr. Mendel Herron Glucose [Mass/Vol] 120 mg/dL Normal [facility] Comment on above: Performed By: #### A 1C #### [facility] [address] [place] [address] Dr. Mendel Herron HbA1c (Bld) [Mass fraction] 5.8 % Normal 4.5-6.2 [facility] Comment on above: Performed By: #### A 1C #### [facility] [address] [place] [address] Dr. Mendel Herron LIPID PROFILEon 09-09-2022 CHOL-HDL RATIO NORM SEE BELOW Normal [facility] Comment on above: Result Comment: 3.3 - 4.4 LOW RISK 4.4 - 7.1 AVERAGE RISK 7.1 - 11.0 MODERATE RISK >11.0 HIGH RISK Performed By: #### L IPID, CMP, T4, TSH, FT3 #### [facility] [address] [address] [address] Mendel Herron Cholesterol [Mass/Vol] 308 mg/dL Critically high <=200 [facility] Comment on above: Performed By: #### L IPID, CMP, T4, TSH, FT3 #### [facility] [facility] [address] [place] [address] Dr. Mendel Herron Cholesterol in HDL [Mass/Vol] 46 mg/dL Normal 40-60 [facility] Comment on above: Performed By: #### L IPID, CMP, T4, TSH, FT3 #### [facility] [address] [place] [address] Dr. Mendel Herron Cholesterol in LDL [Mass/Vol] 212.6 mg/dL Normal [facility] Comment on above: Performed By: #### L IPID, CMP, T4, TSH, FT3 #### [facility] [address] [address] [address] Mendel Herron Cholesterol.total/C holesterol in HDL [Mass ratio] 6.7 {ratio} Normal [facility] Comment on above: Performed By: #### L IPID, CMP, T4, TSH, FT3 #### [facility] [address] [address] [address] Mendel Herron HDL NORMAL > or = 60 mg/dl - LO W CARDIOVASCULAR RISK <40 mg/dl - HIGH CARDIOVASCULAR RISK Normal [facility] Comment on above: Performed By: #### L IPID, CMP, T4, TSH, FT3 #### [facility] [address] [address] [address] Mendel Herron LDL CALC NORMAL SEE BELOW Normal [facility] Comment on above: Result Comment: <100 mg/dl OPTIMAL 100 - 129 mg/dl NEAR OR ABOVE OPTIMAL 130 - 159 mg/dl BORDERLINE HIGH 160 - 189 mg/dl HIGH >190 mg/dl VERY HIGH Performed By: #### L IPID, CMP, T4, TSH, FT3 #### [facility] [address] [address] [address] Mendel Herron Triglyceride [Mass/Vol] 247 mg/dL Critically high <=150 [facility] Comment on above: Performed By: #### L IPID, CMP, T4, TSH, FT3 #### [facility] [address] [address] [address] Mendel Herron VLDL CALC 49.4 mg/dL Normal [facility] Comment on above: Performed By: #### L IPID, CMP, T4, TSH, FT3 #### [facility] [address] [address] [address] Mendel Herron PROF 14(COMP METB)on 023 Albumin [Mass/Vol] 4.0 g/dL Normal 3.4-5.[address] [facility] Comment on above: Performed By: #### L IPID, CMP, T4, TSH, FT3 #### [facility] [address] [place] [address] Dr. Mendel Herron Albumin/Globulin [Mass ratio] 0.9 {ratio} Normal [facility] Comment on above: Performed By: #### L IPID, CMP, T4, TSH, FT3 #### [facility] [address] [place] [address] Dr. Mendel Herron ALP [Catalytic activity/Vol] 115 U/L Normal 46-116 [facility] Comment on above: Performed By: #### L IPID, CMP, T4, TSH, FT3 #### [facility] [address] [place] [address] Dr. Mendel Herron ALT [Catalytic activity/Vol] 30 U/L Normal 14-59 [facility] Comment on above: Performed By: #### L IPID, CMP, T4, TSH, FT3 #### [facility] [address] [place] [address] Dr. Mendel Herron Anion gap [Moles/Vol] 12.7 mmol/L Normal [facility] Comment on above: Performed By: #### L IPID, CMP, T4, TSH, FT3 #### [facility] [address] [place] [address] Dr. Mendel Herron AST [Catalytic activity/Vol] 18 U/L Normal 15-37 [facility] Comment on above: Performed By: #### L IPID, CMP, T4, TSH, FT3 #### [facility] [address] [place] [address] Dr. Mendel Herron Bilirubin [Mass/Vol] 0.7 mg/dL Normal 0.2-1.0 [facility] Comment on above: Performed By: #### L IPID, CMP, T4, TSH, FT3 #### [facility] [address] [place] [address] Dr. Mendel Herron Calcium [Mass/Vol] 9.7 mg/dL Normal 8.5-10.[address] [facility] Comment on above: Performed By: #### L IPID, CMP, T4, TSH, FT3 #### [facility] [address] [address] [address] Mendel Herron Chloride [Moles/Vol] 103 mmol/L Normal 98-107 [facility] Comment on above: Performed By: #### L IPID, CMP, T4, TSH, FT3 #### [facility] [address] [place] [address] Dr. Mendel Herron CO2 [Moles/Vol] 26.5 mmol/L Normal 21.0-32.0 [facility] Comment on above: Performed By: #### L IPID, CMP, T4, TSH, FT3 #### [facility] [address] [address] [address] Mendel Herron Creatinine [Mass/Vol] 0.83 mg/dL Normal 0.55-1.02 [facility] Comment on above: Performed By: #### L IPID, CMP, T4, TSH, FT3 #### [facility] [address] [place] [address] Dr. Mnedel Herron EGFR-AF LIBERIAN >60 Normal >=60 [facility] Comment on above: Performed By: #### L IPID, CMP, T4, TSH, FT3 #### [facility] [address] [place] [address] Dr. Mendel Herron EGFR-NON AF LIBERIAN >60 Normal >=60 [facility] Comment on above: Performed By: #### L IPID, CMP, T4, TSH, FT3 #### [facility] [address] [address] [address] Mendel Herron Globulin (S) [Mass/Vol] 4.4 g/dL Normal [facility] Comment on above: Performed By: #### L IPID, CMP, T4, TSH, FT3 #### [facility] [address] [place] [address] Dr. Mendel Herron Glucose [Mass/Vol] 97 mg/dL Normal 74-[address] [facility] Comment on above: Performed By: #### L IPID, CMP, T4, TSH, FT3 #### [facility] [address] [place] [address] Dr. Mendel Herron Potassium [Moles/Vol] 4.2 mmol/L Normal 3.5-5.1 [facility] Comment on above: Performed By: #### L IPID, CMP, T4, TSH, FT3 #### [facility] [address] [address] [address] Mendel Herron Protein [Mass/Vol] 8.4 g/dL Critically high 6.4-8.2 [facility] Comment on above: Performed By: #### L IPID, CMP, T4, TSH, FT3 #### [facility] [address] [address] [address] Mendel Herron Sodium [Moles/Vol] 138 mmol/L Normal 136-[address] [facility] Comment on above: Performed By: #### L IPID, CMP, T4, TSH, FT3 #### [facility] [address] [address] [address] Mendel Herron Urea nitrogen [Mass/Vol] 12.0 mg/dL Normal 7.0-18.0 [facility] Comment on above: Performed By: #### L IPID, CMP, T4, TSH, FT3 #### [facility] [address] [address] [address] Mendel Herron Urea nitrogen/Creatinine [Mass ratio] 14.5 mg/mg Normal [facility] Comment on above: Performed By: #### L IPID, CMP, T4, TSH, FT3 #### [facility] [address] [address] [address] Mendel Herron T4on 09-09-2022 T4 [Mass/Vol] 8.80 ug/dL Normal 4.80-13.90 [facility] Comment on above: Performed By: #### L IPID, CMP, T4, TSH, FT3 #### [facility] [address] [place] [address] Dr. Mendel Herron TSHon 09-09-2022 TSH 0.898 uIU/mL Normal 0.358-3.[address] [facility] Comment on above: Performed By: #### L IPID, CMP, T4, TSH, FT3 #### [facility] [address] [place], [place] [address] Dr. Mendel Herron VITAMIN D 25 OHon 09-09-2022 VIT D 25-OH 24.0 ng/mL Normal [facility] Comment on above: Performed By: #### L IPID, CMP, T4, TSH, FT3 #### [facility] [address] [place], [place] [address] Dr. Mendel Herron VIT D RANGES SEE BELOW Normal [facility] Comment on above: Result Comment: <20 ng/mL Vit D deficient 20 - <30 ng/mL Vit D insufficient 30 - 100 ng/mL Vit D sufficient >100 ng/mL Potential Toxicity Performed By: #### L IPID, CMP, T4, TSH, FT3 #### [facility] [address] [place], [place] [address] Dr. Mendel Herron Physician Referralon 023 Physician Referral [phone] [id number] [id number]: [id number] Normal [facility] NM HEPATOBILIARY SCAN W EFon 08-20-2022 [...] by: VIVI GARY Date: 2022-08-20 16:07 Normal [facility] US SINGLE QUAD RT UPPERon US [...] JEAN LOPES Date: 2022-08-11 15:50 Normal [facility] CARDIAC SUBHA ADMITon 023 CK [Catalytic activity/Vol] 30 U/L Normal 26-192 [facility] Comment on above: Performed By: #### L IPID, CMP, T4, TSH, FT3 #### [facility] [address] [address] [address] Mendel Herron CK.MB [Mass/Vol] 1.02 ng/mL Normal <=3.60 [facility] Comment on above: Performed By: #### L IPID, CMP, T4, TSH, FT3 #### [facility] [address] [place], [place] [address] Dr. Mendel Herron HSTROP 32.8 pg/mL Normal 4.0-51.3 [facility] Comment on above: Result Comment: CUT- OFF POINTS HAVE BEEN ESTABLISHED BASED ON THE FOURTH UNIVERSAL DEFINITIONS OF MYOCARDIAL INFARCTION. THE UPPER REFERENCE LIMIT (URL) OF TROPONIN, DEFINED THE 99TH PERCENTILE OF cTnI DISTRIBUTION IN A REFERENCE POPULATION, HAS BEEN CONFIRMED THE DECISION THRESHOLD FOR DE DIAGNOSIS. Performed By: #### L IPID, CMP, T4, TSH, FT3 #### [facility] [address] [place] [address] Dr. Mendel Herron SONYA 23 ng/mL Normal 9-82 [facility] Comment on above: Performed By: #### L IPID, CMP, T4, TSH, FT3 #### [facility] [address] [place] [address] Dr. Mendel Herron CBC AUTO DIFFon 08-09-2022 BASO # 0.0 103/ul Normal 0.0-0.1 [facility] Comment on above: Performed By: #### L IPID, CMP, T4, TSH, FT3 #### [facility] [address] [place] [address] Dr. Mendel Herron Basophils/100 WBC (Bld) 0.3 % Normal 0.2-2.0 [facility] Comment on above: Performed By: #### L IPID, CMP, T4, TSH, FT3 #### [facility] [address] [place] [address] Dr. Mendel Herron EO # 0.0 103/ul Normal 0.0-0.7 [facility] Comment on above: Performed By: #### L IPID, CMP, T4, TSH, FT3 #### [facility] [address] [place] [address] Dr. Mendel Herron Eosinophils/100 WBC (Bld) 0.3 % Critically low 0.9-7.0 [facility] Comment on above: Performed By: #### L IPID, CMP, T4, TSH, FT3 #### [facility] [address] [place] [address] Dr. Mendel Herron Erythrocyte distribution width (RBC) [Ratio] 13.1 % Normal 11.0-15.0 [facility] Comment on above: Performed By: #### L IPID, CMP, T4, TSH, FT3 #### [facility] [address] [place] [address] Dr. Mendel Herron Hematocrit (Bld) [Volume fraction] 42.7 % Normal 36.0-48.0 [facility] Comment on above: Performed By: #### L IPID, CMP, T4, TSH, FT3 #### [facility] [address] [address] [address] Mendel Herron Hemoglobin (Bld) [Mass/Vol] 15.4 g/dL Normal 12.0-16.0 [facility] Comment on above: Performed By: #### L IPID, CMP, T4, TSH, FT3 #### [facility] [address] [place] [address] Dr. Mendel Herron IG # 0.05 10e3/ul Critically high 0.00-0.03 [facility] Comment on above: Performed By: #### L IPID, CMP, T4, TSH, FT3 #### [facility] [address] [place] [address] Dr. Mendel Herron IG % 0.4 % Normal 0.0-0.5 [facility] Comment on above: Performed By: #### L IPID, CMP, T4, TSH, FT3 #### [facility] [address] [place] [address] Dr. Mendel Herron LYMPH # 2.5 103/ul Normal 1.2-3.8 [facility] Comment on above: Performed By: #### L IPID, CMP, T4, TSH, FT3 #### [facility] [address] [place] [address] Dr. Mendel Herron Lymphocytes/100 WBC (Bld) 21.2 % Normal 20.5-60.0 [facility] Comment on above: Performed By: #### L IPID, CMP, T4, TSH, FT3 #### [facility] [address] [place] [address] Dr. Mendel Herron MANUAL DIFF REQ NO Normal [facility] Comment on above: Performed By: #### L IPID, CMP, T4, TSH, FT3 #### [facility] [address] [place] [address] Dr. Mendel Herron MCH (RBC) [Entitic mass] 31.7 pg Normal 26.7-34.0 [facility] Comment on above: Performed By: #### L IPID, CMP, T4, TSH, FT3 #### [facility] [address] [place] [address] Dr. Mendel Herron MCHC (RBC) [Mass/Vol] 36.1 g/dL Critically high 29.9-35.2 [facility] Comment on above: Performed By: #### L IPID, CMP, T4, TSH, FT3 #### [facility] [address] [place] [address] Dr. Mendel Herron MCV (RBC) [Entitic vol] 87.9 fL Normal 81.0-99.0 [facility] Comment on above: Performed By: #### L IPID, CMP, T4, TSH, FT3 #### [facility] [address] [place] [address] Dr. Mendel Herron MONO # 0.7 103/ul Normal 0.3-0.8 [facility] Comment on above: Performed By: #### L IPID, CMP, T4, TSH, FT3 #### [facility] [address] [place] [address] Dr. Mendel Herron Monocytes/100 WBC (Bld) 6.3 % Normal 1.7-12.0 [facility] Comment on above: Performed By: #### L IPID, CMP, T4, TSH, FT3 #### [facility] [address] [place] [address] Dr. Mendel Herron NEUT # 8.4 103/ul Critically high 1.4-6.[address] [facility] Comment on above: Performed By: #### L IPID, CMP, T4, TSH, FT3 #### [facility] [address] [place] [address] Dr. Mendel Herron Neutrophils/100 WBC (Bld) 71.5 % Normal 43.0-75.0 [facility] Comment on above: Performed By: #### L IPID, CMP, T4, TSH, FT3 #### [facility] [address] [place] [address] Dr. Mendel Herron Platelet mean volume (Bld) [Entitic vol] 9.8 fL Normal 9.5-13.5 [facility] Comment on above: Performed By: #### L IPID, CMP, T4, TSH, FT3 #### [facility] [address] [address] [address] Mendel Herron PLT 374 103/ul Normal 150-450 [facility] Comment on above: Performed By: #### L IPID, CMP, T4, TSH, FT3 #### [facility] [address] [address] [address] Mendel Herron RBC 4.86 106/ul Normal 4.20-5.40 [facility] Comment on above: Performed By: #### L IPID, CMP, T4, TSH, FT3 #### [facility] [address] [place] [address] Dr. Mendel Herron WBC 11.7 103/ul Critically high 4.0-11.0 [facility] Comment on above: Performed By: #### L IPID, CMP, T4, TSH, FT3 #### [facility] [address] [place] [address] HEAD WO CONon [...] by: HELLEN VELAZQUEZ Date: 2022-08-09 15:23 Normal [facility] Covid-19 PCR (CVDTB)on 07-20 SARS-CoV-2 (COVID-19) RNA DEIRDRE+probe Ql (Unsp spec) Not detected Normal NOT DETECTED [facility] Comment on above: Result Comment: When [...] for this test is supported by the Community Representative of Health and Human Service's declaration that [...] L IPID, CMP, T4, TSH, FT3 #### [facility] [address] [place] [address] Dr. Mendel Herron ER URINE PROFILEon 3 Bilirubin Ql (U) Negative Normal NEGATIVE [facility] Comment on above: Performed By: #### L IPID, CMP, T4, TSH, FT3 #### [facility] [address] [place] [address] Dr. Mendel Herron Clarity (U) CLEAR Normal CLEAR [facility] Comment on above: Performed By: #### L IPID, CMP, T4, TSH, FT3 #### [facility] [address] [place] [address] Dr. Mendel Herron Color (U) LT. YELLOW Normal YELLOW [facility] Comment on above: Performed By: #### L IPID, CMP, T4, TSH, FT3 #### [facility] [address] [place] [address] Dr. Mendel Herron ERUAHD A micrscopic examina tion will be performed if indicated. Normal [facility] Comment on above: Performed By: #### L IPID, CMP, T4, TSH, FT3 #### [facility] [address] [address] [address] Mendel Herron Glucose Ql (U) Negative Normal NEGATIVE [facility] Comment on above: Performed By: #### L IPID, CMP, T4, TSH, FT3 #### [facility] [address] [address] [address] Mendel Herron Hemoglobin Ql (U) TRACE-INTACT Abnormal NEGATIVE [facility] Comment on above: Performed By: #### L IPID, CMP, T4, TSH, FT3 #### [facility] [address] [address] [address] Mendel Herron Ketones Ql (U) Negative Normal NEGATIVE [facility] Comment on above: Performed By: #### L IPID, CMP, T4, TSH, FT3 #### [facility] [address] [address] [address] Mendel Herron LEUKOCYTES Negative Normal NEGATIVE [facility] Comment on above: Performed By: #### L IPID, CMP, T4, TSH, FT3 #### [facility] [address] [address] [address] Mendel Herron Nitrite Ql (U) Negative Normal NEGATIVE [facility] Comment on above: Performed By: #### L IPID, CMP, T4, TSH, FT3 #### [facility] [address] [address] [address] Mendel Herron pH (U) 5.0 [pH] Normal 5-9 [facility] Comment on above: Performed By: #### L IPID, CMP, T4, TSH, FT3 #### [facility] [address] [address] [address] Mendel Herron SPEC GRAVITY 1.015 Normal 1.005-<=1.02 5 [facility] Comment on above: Performed By: #### L IPID, CMP, T4, TSH, FT3 #### [facility] [address] [address] [address] Mendel Herron UA PROTEIN Negative Normal NEGATIVE/ TRACE [facility] Comment on above: Performed By: #### L IPID, CMP, T4, TSH, FT3 #### [facility] [address] [address] [address] Mendel Herron UR MICRO IND INDICATED Normal [facility] Comment on above: Performed By: #### L IPID, CMP, T4, TSH, FT3 #### [facility] [address] [place] [address] Dr. Mendel Herron Urobilinogen Qn (U) 0.2 {James'U}/dL Normal 0.2 - 1. 0 [facility] Comment on above: Performed By: #### L IPID, CMP, T4, TSH, FT3 #### [facility] [address] [place] [address] Dr. Mendel Herron LIPASEon 08-09-2022 Lipase [Catalytic activity/Vol] 114.0 U/L Normal 73.0-393.0 [facility] Comment on above: Performed By: #### L IPA, BMP, CMADM #### [facility] [address] [place] [address] Dr. Mendel Herron PROF CHEM 8 (BAS METB)on Anion gap [Moles/Vol] 18.9 mmol/L Normal [facility] Comment on above: Performed By: #### L IPA, BMP, CMADM #### [facility] [address] [place] [address] Dr. Mendel Herron Calcium [Mass/Vol] 9.4 mg/dL Normal 8.5-10.[address] [facility] Comment on above: Performed By: #### L IPA, BMP, CMADM #### [facility] [address] [place] [address] Dr. Mendel Herron Chloride [Moles/Vol] 97 mmol/L Critically low 98-107 [facility] Comment on above: Performed By: #### L IPA, BMP, CMADM #### [facility] [address] [place] [address] Dr. Mendel Herron CO2 [Moles/Vol] 26.0 mmol/L Normal 21.0-32.0 [facility] Comment on above: Performed By: #### L IPA, BMP, CMADM #### [facility] [address] [address] [address] Mendel Herron Creatinine [Mass/Vol] 0.85 mg/dL Normal 0.55-1.02 [facility] Comment on above: Performed By: #### L IPA, BMP, CMADM #### [facility] [address] [address] [address] Mendel Herron EGFR-AF LIBERIAN >60 Normal >=60 [facility] Comment on above: Performed By: #### L IPA, BMP, CMADM #### [facility] [address] [address] [address] Mendel Herron EGFR-NON AF LIBERIAN >60 Normal >=60 [facility] Comment on above: Performed By: #### L IPA, BMP, CMADM #### [facility] [address] [address] [address] Mendel Herron Glucose [Mass/Vol] 120 mg/dL Critically high 74-106 [facility] Comment on above: Performed By: #### L IPA, BMP, CMADM #### [facility] [address] [address] [address] Mendel Herron Potassium [Moles/Vol] 3.9 mmol/L Normal 3.5-5.1 [facility] Comment on above: Performed By: #### L IPA, BMP, CMADM #### [facility] [address] [address] [address] Mendel Herron Sodium [Moles/Vol] 138 mmol/L Normal 136-[address] [facility] Comment on above: Performed By: #### L IPA, BMP, CMADM #### [facility] [address] [address] [address] Mendel Herron Urea nitrogen [Mass/Vol] 17.0 mg/dL Normal 7.0-18.0 [facility] Comment on above: Performed By: #### L IPA, BMP, CMADM #### [facility] [address] [address] [address] Mendel Herron Urea nitrogen/Creatinine [Mass ratio] 20.0 mg/mg Normal [facility] Comment on above: Performed By: #### L IPA, BMP, CMADM #### [facility] [address] [place] [address] Dr. Mendel Herron TROPONIN, HIGH SENSITIVITYon 08-09-2022 HSTROP 32.5 pg/mL Normal 4.0-51.3 [facility] Comment on above: Result Comment: CUT- OFF POINTS HAVE BEEN ESTABLISHED BASED ON THE FOURTH UNIVERSAL DEFINITIONS OF MYOCARDIAL INFARCTION. THE UPPER REFERENCE LIMIT (URL) OF TROPONIN, DEFINED THE 99TH PERCENTILE OF cTnI DISTRIBUTION IN A REFERENCE POPULATION, HAS BEEN CONFIRMED THE DECISION THRESHOLD FOR DE DIAGNOSIS. Performed By: #### L IPID, CMP, T4, TSH, FT3 #### [facility] [address] [place] [address] Dr. Mendel Herron URINE MICROSCOPIC ONLYon BACTERIA NONE SEEN Normal NONE SEEN [facility] Comment on above: Performed By: #### L IPID, CMP, T4, TSH, FT3 #### [facility] [address] [place] [address] Dr. Mendel Herron Bacteria identified Cx Nom (U) NOT INDICATED Normal [facility] Comment on above: Performed By: #### L IPID, CMP, T4, TSH, FT3 #### [facility] [address] [place] [address] Dr. Mendel Herron CAST NONE SEEN Normal NONE SEEN [facility] Comment on above: Performed By: #### L IPID, CMP, T4, TSH, FT3 #### [facility] [address] [place] [address] Dr. Mendel Herron Crystals LM Nom (Urine sed) NONE SEEN Normal NONE SEEN [facility] Comment on above: Performed By: #### L IPID, CMP, T4, TSH, FT3 #### [facility] [address] [place] [address] Dr. Mendel Herron Epithelial cells LM Ql (Urine sed) NONE SEEN Normal NONE SEEN /RARE [facility] Comment on above: Performed By: #### L IPID, CMP, T4, TSH, FT3 #### [facility] [address] [address] [address] Mendel Herron MUCOUS NONE SEEN Normal NONE SEEN [facility] Comment on above: Performed By: #### L IPID, CMP, T4, TSH, FT3 #### [facility] [address] [address] [address] Mendel Herron RBC 0-2 Normal 0-2 [facility] Comment on above: Performed By: #### L IPID, CMP, T4, TSH, FT3 #### [facility] [address] [address] [address] Mendel Herron WBC NONE SEEN Normal NONE SEEN [facility] Comment on above: Performed By: #### L IPID, CMP, T4, TSH, FT3 #### [facility] [address] [address] [address] Mendel Herron XR CHEST 1 Von [...] MARY DIETZ Date: 2022-08-09 15:18 Normal [facility] H PYLORI ANTIBODY IGGon 07-20 H. PYLORI IGG ABS 0.11 Index Value Normal 0.00-0.79 [facility] Comment on above: Result Comment: Nega tive <0.80 Equivocal 0.80 - 0.89 Positive >0.89 Performed By: #### L IPID, CMP, T4, TSH, FT3 #### [facility] [address] [address] [address] Mendel Herron AMYLASEon 08-06-2022 Amylase [Catalytic activity/Vol] 57 U/L Normal 25-115 [facility] Comment on above: Performed By: #### L IPID, CMP, T4, TSH, FT3 #### [facility] [address] [address] [address] Mendel Herron CBC AUTO DIFFon 08-06-2022 BASO # 0.1 103/ul Normal 0.0-0.1 [facility] Comment on above: Performed By: #### L IPID, CMP, T4, TSH, FT3 #### [facility] [address] [place] [address] Dr. Mendel Herron Basophils/100 WBC (Bld) 0.7 % Normal 0.2-2.0 [facility] Comment on above: Performed By: #### L IPID, CMP, T4, TSH, FT3 #### [facility] [address] [place] [address] Dr. Mendel Herron EO # 0.1 103/ul Normal 0.0-0.7 [facility] Comment on above: Performed By: #### L IPID, CMP, T4, TSH, FT3 #### [facility] [address] [place] [address] Dr. Mendel Herron Eosinophils/100 WBC (Bld) 0.5 % Critically low 0.9-7.0 [facility] Comment on above: Performed By: #### L IPID, CMP, T4, TSH, FT3 #### [facility] [address] [place] [address] Dr. Mendel Herron Erythrocyte distribution width (RBC) [Ratio] 13.7 % Normal 11.0-15.0 [facility] Comment on above: Performed By: #### L IPID, CMP, T4, TSH, FT3 #### [facility] [address] [place] [address] Dr. Mendel Herron Hematocrit (Bld) [Volume fraction] 46.2 % Normal 36.0-48.0 [facility] Comment on above: Performed By: #### L IPID, CMP, T4, TSH, FT3 #### [facility] [address] [place] [address] Dr. Mendel Herron Hemoglobin (Bld) [Mass/Vol] 15.1 g/dL Normal 12.0-16.0 [facility] Comment on above: Performed By: #### L IPID, CMP, T4, TSH, FT3 #### [facility] [address] [address] [address] Mendel Herron IG # 0.06 10e3/ul Critically high 0.00-0.03 [facility] Comment on above: Performed By: #### L IPID, CMP, T4, TSH, FT3 #### [facility] [address] [place] [address] Dr. Mendel Herron IG % 0.6 % Critically high 0.0-0.5 [facility] Comment on above: Performed By: #### L IPID, CMP, T4, TSH, FT3 #### [facility] [address] [place] [address] Dr. Mendel Herron LYMPH # 2.5 103/ul Normal 1.2-3.8 [facility] Comment on above: Performed By: #### L IPID, CMP, T4, TSH, FT3 #### [facility] [address] [place] [address] Dr. Mendel Herron Lymphocytes/100 WBC (Bld) 23.4 % Normal 20.5-60.0 [facility] Comment on above: Performed By: #### L IPID, CMP, T4, TSH, FT3 #### [facility] [address] [place] [address] Dr. Mendel Herron MANUAL DIFF REQ NO Normal [facility] Comment on above: Performed By: #### L IPID, CMP, T4, TSH, FT3 #### [facility] [address] [place] [address] Dr. Mendel Herron MCH (RBC) [Entitic mass] 31.4 pg Normal 26.7-34.0 [facility] Comment on above: Performed By: #### L IPID, CMP, T4, TSH, FT3 #### [facility] [address] [place] [address] Dr. Mendel Herron MCHC (RBC) [Mass/Vol] 32.7 g/dL Normal 29.9-35.2 [facility] Comment on above: Performed By: #### L IPID, CMP, T4, TSH, FT3 #### [facility] [address] [place] [address] Dr. Mendel Herron MCV (RBC) [Entitic vol] 96.0 fL Normal 81.0-99.0 [facility] Comment on above: Performed By: #### L IPID, CMP, T4, TSH, FT3 #### [facility] [address] [place] [address] Dr. Mendel Herron MONO # 0.6 103/ul Normal 0.3-0.8 [facility] Comment on above: Performed By: #### L IPID, CMP, T4, TSH, FT3 #### [facility] [address] [place] [address] Dr. Mendel Herron Monocytes/100 WBC (Bld) 6.0 % Normal 1.7-12.0 [facility] Comment on above: Performed By: #### L IPID, CMP, T4, TSH, FT3 #### [facility] [address] [place] [address] Dr. Mendel Herron NEUT # 7.4 103/ul Critically high 1.4-6.[address] [facility] Comment on above: Performed By: #### L IPID, CMP, T4, TSH, FT3 #### [facility] [address] [place] [address] Dr. Mendel Herron Neutrophils/100 WBC (Bld) 68.8 % Normal 43.0-75.0 [facility] Comment on above: Performed By: #### L IPID, CMP, T4, TSH, FT3 #### [facility] [address] [place] [address] Dr. Mendel Herron Platelet mean volume (Bld) [Entitic vol] 9.7 fL Normal 9.5-13.5 [facility] Comment on above: Performed By: #### L IPID, CMP, T4, TSH, FT3 #### [facility] [address] [place] [address] Dr. Mendel Herron PLT 331 103/ul Normal 150-450 [facility] Comment on above: Performed By: #### L IPID, CMP, T4, TSH, FT3 #### [facility] [address] [place] [address] Dr. Mendel Herron RBC 4.81 106/ul Normal 4.20-5.40 [facility] Comment on above: Performed By: #### L IPID, CMP, T4, TSH, FT3 #### [facility] [address] [address] [address] Mendel Herron WBC 10.7 103/ul Normal 4.0-11.0 [facility] Comment on above: Performed By: #### L IPID, CMP, T4, TSH, FT3 #### [facility] [address] [place] [address] HEAD WO CONon [...] JEAN LOPES Date: 2022-08-06 08:39 Normal [facility] LIPASEon 08-06-2022 Lipase [Catalytic activity/Vol] 125.0 U/L Normal 73.0-393.0 [facility] Comment on above: Performed By: #### L IPID, CMP, T4, TSH, FT3 #### [facility] [address] [place] [address] Dr. Mendel Herron PROF 14(COMP METB)on 023 Albumin [Mass/Vol] 3.7 g/dL Normal 3.4-5.[address] [facility] Comment on above: Performed By: #### L IPID, CMP, T4, TSH, FT3 #### [facility] [address] [place] [address] Dr. Mendel Herron Albumin/Globulin [Mass ratio] 0.9 {ratio} Normal [facility] Comment on above: Performed By: #### L IPID, CMP, T4, TSH, FT3 #### [facility] [address] [place] [address] Dr. Mendel Herron ALP [Catalytic activity/Vol] 110 U/L Normal 46-116 [facility] Comment on above: Performed By: #### L IPID, CMP, T4, TSH, FT3 #### [facility] [address] [place] [address] Dr. Mendel Herron ALT [Catalytic activity/Vol] 25 U/L Normal 14-59 [facility] Comment on above: Performed By: #### L IPID, CMP, T4, TSH, FT3 #### [facility] [address] [place] [address] Dr. Mendel Herron Anion gap [Moles/Vol] 14.0 mmol/L Normal [facility] Comment on above: Performed By: #### L IPID, CMP, T4, TSH, FT3 #### [facility] [address] [place] [address] Dr. Mendel Herron AST [Catalytic activity/Vol] 16 U/L Normal 15-37 [facility] Comment on above: Performed By: #### L IPID, CMP, T4, TSH, FT3 #### [facility] [address] [place] [address] Dr. Mendel Herron Bilirubin [Mass/Vol] 0.6 mg/dL Normal 0.2-1.0 [facility] Comment on above: Performed By: #### L IPID, CMP, T4, TSH, FT3 #### [facility] [address] [place] [address] Dr. Mendel Herron Calcium [Mass/Vol] 9.3 mg/dL Normal 8.5-10.[address] [facility] Comment on above: Performed By: #### L IPID, CMP, T4, TSH, FT3 #### [facility] [address] [place] [address] Dr. Mendel Herron Chloride [Moles/Vol] 103 mmol/L Normal 98-107 [facility] Comment on above: Performed By: #### L IPID, CMP, T4, TSH, FT3 #### [facility] [address] [address] [address] Mendel Herron CO2 [Moles/Vol] 27.3 mmol/L Normal 21.0-32.0 [facility] Comment on above: Performed By: #### L IPID, CMP, T4, TSH, FT3 #### [facility] [address] [address] [address] Mendel Herron Creatinine [Mass/Vol] 0.71 mg/dL Normal 0.55-1.02 [facility] Comment on above: Performed By: #### L IPID, CMP, T4, TSH, FT3 #### [facility] [address] [place] [address] Dr. Mendel Herron EGFR-AF LIBERIAN >60 Normal >=60 [facility] Comment on above: Performed By: #### L IPID, CMP, T4, TSH, FT3 #### [facility] [address] [place] [address] Dr. Mendel Herron EGFR-NON AF LIBERIAN >60 Normal >=60 [facility] Comment on above: Performed By: #### L IPID, CMP, T4, TSH, FT3 #### [facility] [address] [place] [address] Dr. Mendel Herron Globulin (S) [Mass/Vol] 4.3 g/dL Normal [facility] Comment on above: Performed By: #### L IPID, CMP, T4, TSH, FT3 #### [facility] [address] [address] [address] Mendel Herron Glucose [Mass/Vol] 102 mg/dL Normal 74-[address] [facility] Comment on above: Performed By: #### L IPID, CMP, T4, TSH, FT3 #### [facility] [address] [place] [address] Dr. Mendel Herron Potassium [Moles/Vol] 4.3 mmol/L Normal 3.5-5.1 [facility] Comment on above: Performed By: #### L IPID, CMP, T4, TSH, FT3 #### [facility] [address] [address] [address] Mendel Herron Protein [Mass/Vol] 8.0 g/dL Normal 6.4-8.2 [facility] Comment on above: Performed By: #### L IPID, CMP, T4, TSH, FT3 #### [facility] [address] [place] [address] Dr. Mendel Herron Sodium [Moles/Vol] 140 mmol/L Normal 136-145 [facility] Comment on above: Performed By: #### L IPID, CMP, T4, TSH, FT3 #### [facility] [address] [place] [address] Dr. Mendel Herron Urea nitrogen [Mass/Vol] 19.0 mg/dL Critically high 7.0-18.0 [facility] Comment on above: Performed By: #### L IPID, CMP, T4, TSH, FT3 #### [facility] [address] [place] [address] Dr. Mendel Herron Urea nitrogen/Creatinine [Mass ratio] 26.8 mg/mg Normal [facility] Comment on above: Performed By: #### L IPID, CMP, T4, TSH, FT3 #### [facility] [address] [place] [address] Dr. Mendel Herron Covid-19 PCR ([facility])on 06-19 SARS-CoV-2 (COVID-19) RNA DEIRDRE+probe Ql (Unsp spec) Not detected Normal NOT DETECTED [facility] Comment on above: Result Comment: This test is not yet approved or cleared by the [place] FDA. When there are no FDA-approved or cleared tests available, and other criteria are met, FDA can make tests available under an emergency access mechanism called an Emergency Use Authorization (EUA). The EUA for this test is supported by the Community Representative of Health and Human Service's (HHS's) declaration [...] SARS-CoV-2. Performed By: #### C VDTBH #### [facility] [address] [place] [address] Dr. Mendel Herron INFLUENZA A AND B AGon 07-[facility] BELOW Normal [facility] Comment on above: Result Comment: Nega tive for Flu A protein angiten. Infection due to Flu A cannot be ruled out. Flu A angiten in the sample may be below the detection limit of the test. Performed By: #### L IPID, CMP, T4, TSH, FT3 #### [facility] [address] [place] [address] Dr. Mendel Herron INFLUBNEG SEE BELOW Normal [facility] Comment on above: Result Comment: Nega tive for Flu B protein antigen. Infection due to Flu B cannot be ruled out. Flu B antigen in the sample may be below the detection limit of the test. Performed By: #### L IPID, CMP, T4, TSH, FT3 #### [facility] [address] [place] [address] Dr. Mendel Herron INFLUENZA A AG Negative Normal NEGATIVE SEE COMMENT [facility] Comment on above: Performed By: #### L IPID, CMP, T4, TSH, FT3 #### [facility] [address] [place] [address] Dr. Mendel Herron INFLUENZA B AG Negative Normal NEGATIVE SEE COMMENT [facility] Comment on above: Performed By: #### L IPID, CMP, T4, TSH, FT3 #### [facility] [address] [place] [address] Dr. Mendel Herron Covid-19 PCR ([facility])on 04-19 SARS-CoV-2 (COVID-19) RNA DEIRDRE+probe Ql (Unsp spec) Not detected Normal NOT DETECTED [facility] Comment on above: Result Comment: This test is not yet approved or cleared by the [place] FDA. When there are no FDA-approved or cleared tests available, and other criteria are met, FDA can make tests available under an emergency access mechanism called an Emergency Use Authorization (EUA). The EUA for this test is supported by the Community Representative of Health and Human Service's (HHS's) declaration [...] L IPID, CMP, T4, TSH, FT3 #### [facility] [address] [place] [address] Dr. Mendel Herron INFLUENZA A AND B AGon 05-11 [facility] BELOW Normal [facility] Comment on above: Result Comment: Nega tive for Flu A protein angiten. Infection due to Flu A cannot be ruled out. Flu A angiten in the sample may be below the detection limit of the test. Performed By: #### L IPID, CMP, T4, TSH, FT3 #### [facility] [address] [place] [address] Dr. Mendel Herron INFLUBNEG SEE BELOW Normal [facility] Comment on above: Result Comment: Nega tive for Flu B protein antigen. Infection due to Flu B cannot be ruled out. Flu B antigen in the sample may be below the detection limit of the test. Performed By: #### L IPID, CMP, T4, TSH, FT3 #### [facility] [address] [place] [address] Dr. Mendel Herron INFLUENZA A AG Negative Normal NEGATIVE SEE COMMENT [facility] Comment on above: Performed By: #### L IPID, CMP, T4, TSH, FT3 #### [facility] [address] [place], [place] [address] Dr. Mendel Herron INFLUENZA B AG Negative Normal NEGATIVE SEE COMMENT [facility] Comment on above: Performed By: #### L IPID, CMP, T4, TSH, FT3 #### [facility] [address] [place], [place] [address] Dr. Mendel Herron INTERNAL CONTROLS Within Normal Limits Normal Wi thin Normal Limits [facility] Comment on above: Performed By: #### L IPID, CMP, T4, TSH, FT3 #### [facility] [address] [place], [place] [address] Dr. Mendel Herron Comprehensive Metabolic Empo n 12-23-2021 Albumin [Mass/Vol] 3.7 g/dL Normal 3.2-5.5 [facility] Comment on above: Performed By: #### E BS CMP, EBS LIPID #### [facility] [address] [place] [address] [place] Albumin/Globulin [Mass ratio] 1.0 {ratio} Normal [facility] Comment on above: Performed By: #### E BS CMP, EBS LIPID #### [facility] [address] [id number] [place] ALP [Catalytic activity/Vol] 159 U/L High 32-92 [facility] Comment on above: Performed By: #### E BS CMP, EBS LIPID #### [facility] [address] [place] [address] [place] ALT [Catalytic activity/Vol] 28 U/L Normal 10-60 [facility] Comment on above: Performed By: #### E BS CMP, EBS LIPID #### [facility] [address] [place] [address] [place] AST [Catalytic activity/Vol] 27 U/L Normal 10-42 [facility] Comment on above: Performed By: #### E BS CMP, EBS LIPID #### [facility] [address] [place] [address] [place] Bilirubin [Mass/Vol] 1.2 mg/dL Normal 0.3-1.2 [facility] Comment on above: Performed By: #### E BS CMP, EBS LIPID #### [facility] [address] Calcium [Mass/Vol] 9.2 mg/dL Normal 8.2-10.2 [facility] Comment on above: Performed By: #### E BS CMP, EBS LIPID #### [facility] [address] [place] [address] [place] Chloride [Moles/Vol] 100 mmol/L Normal 95-114 [facility] Comment on above: Performed By: #### E BS CMP, EBS LIPID #### [facility] [address] [place] [address] CO2 [Moles/Vol] 20.6 mmol/L Low 22.0-30.0 [facility] Comment on above: Performed By: #### E BS CMP, EBS LIPID #### [address] Creatinine [Mass/Vol] 0.57 mg/dL Normal 0.44-1.03 [facility] Comment on above: Performed By: #### E BS CMP, EBS LIPID #### [address] Estimated GFR ( Ni > 60 Normal [facility] Comment on above: Result Comment: GFR estimated reference range: According to KDOQI guidelines, <60 ml/min/1.73m2 is sufficient to diagnose a patient with chronic kidney disease. Performed By: #### E BS CMP, EBS LIPID #### [facility] [address] [place] [address] [place] Estimated GFR (Non- Am > 60 Normal [facility] Comment on above: Performed By: #### E BS CMP, EBS LIPID #### [facility] [address] [place] [address] [place] Globulin (S) [Mass/Vol] 3.7 g/dL Normal [facility] Comment on above: Performed By: #### E BS CMP, EBS LIPID #### [facility] [address] [place] [address] [place] Glucose [Mass/Vol] 100 mg/dL Normal 70-100 [facility] Comment on above: Performed By: #### E BS CMP, EBS LIPID #### [facility] [address] [place] [address] [facility] Potassium [Moles/Vol] 3.9 mmol/L Normal 3.5-5.1 [facility] Comment on above: Performed By: #### E BS CMP, EBS LIPID #### [facility] [address] [place] [address] [facility] Protein [Mass/Vol] 7.4 g/dL Normal 6.1-7.9 [facility] Comment on above: Performed By: #### E BS CMP, EBS LIPID #### [facility] [address] [place] [id number] [facility] Sodium [Moles/Vol] 135 mmol/L Low 136-146 [facility] Comment on above: Performed By: #### E BS CMP, EBS LIPID #### [facility] [address] [id number] [facility] Urea nitrogen [Mass/Vol] 12 mg/dL Normal 9-23 [facility] Comment on above: Performed By: #### E BS CMP, EBS LIPID #### [facility] [address] [place] [id number] [facility] Lipid Profileon 12-23-2021 Cholesterol [Mass/Vol] 213 mg/dL High 140-200 [facility] Comment on above: Result Comment: Chol less than 200 mg/dl low risk Chol 201-239 mg/dl borderline risk Chol 240 mg/dl and greater high risk Performed By: #### E BS CMP, EBS LIPID #### [facility] [address] [id number] [facility] Cholesterol in HDL [Mass/Vol] 36 mg/dL Normal 35-85 [facility] Comment on above: Result Comment: HDL CHOL ATP-III CLASSIFICATION Cardiovascular Risk HDL > or equal to 60 mg/dL LOW HDL < 40 mg/dL HIGH Performed By: #### E BS CMP, EBS LIPID #### [facility] [address] [place] [phone] [facility] Cholesterol.total/C holesterol in HDL [Mass ratio] 5.9 {ratio} Normal <5.0 [facility] Comment on above: Result Comment: PERF ORMED BY: [place] [address] PATHOLOGIST BOX PRINTING MACHINE OPERATOR MARIBEL AGUILLON M.D. Performed By: #### E BS CMP, EBS LIPID #### [address] LDL Cholesterol,Calcula lizebt 151 mg/dL High 0-100 [facility] Comment on above: Result Comment: LDL ATP III CLASSIFICATION LDL less than 100 mg/dL Optimal LDL 100-129 mg/dL Near or above optimal LDL 130-159 mg/dL Borderline high LDL 160-189 mg/dL High LDL greater than 189 mg/dL Very high Performed By: #### E BS CMP, EBS LIPID #### [address] Triglyceride w/Reflex 129 mg/dL Normal 35-149 [facility] Comment on above: Result Comment: TRIG ATP III CLASSIFICATION TRIG less than 150 mg/dL Normal TRIG 150-199 mg/dL Borderline high TRIG 200-500 mg/dL High TRIG greater than 500 mg/dL Very high Standard traceable to the Center for Disease Conrtrol and Prevention (CDC) test method. Performed By: #### E BS CMP, EBS LIPID #### [facility] [address] [place] [address] VLDL CHOLESTEROL 25 mg/dL Normal [facility] Comment on above: Performed By: #### E BS CMP, EBS LIPID #### [address] Covid-19 PCR ([facility])on 11-16 SARS-CoV-2 (COVID-19) RNA DEIRDRE+probe Ql (Unsp spec) Detected Critically abnormal NOT DETECTED [facility] Comment on above: Result Comment: This test is not yet approved or cleared by the [place] FDA. When there are no FDA-approved or cleared tests available, and other criteria are met, FDA can make tests available under an emergency access mechanism called an Emergency Use Authorization (EUA). The EUA for this test is supported by the Community Representative of Health and Human Service's declaration that [...] longer be used). Performed By: #### C VDTB #### [facility] [address] [place] [address] Dr. Mendel Herron INFLUENZA A AND B [facility] 12-02 [facility] SEE BELOW Normal [facility] Comment on above: Result Comment: Nega tive for Flu A protein angiten. Infection due to Flu A cannot be ruled out. Flu A angiten in the sample may be below the detection limit of the test. Performed By: #### L IPID, CMP, T4, TSH, FT3 #### [facility] [address] [place] [address] Dr. Mendel [facility] Normal [facility] Comment on above: Result Comment: Nega tive for Flu B protein antigen. Infection due to Flu B cannot be ruled out. Flu B antigen in the sample may be below the detection limit of the test. Performed By: #### L IPID, CMP, T4, TSH, FT3 #### [facility] [address] [place] [address] Dr. Mendel Herron INFLUENZA A AG Negative Normal NEGATIVE SEE COMMENT [facility] Comment on above: Performed By: #### L IPID, CMP, T4, TSH, FT3 #### [facility] [address] [place] [address] Dr. Mendel Herron INFLUENZA B AG Negative Normal NEGATIVE SEE COMMENT [facility] Comment on above: Performed By: #### L IPID, CMP, T4, TSH, FT3 #### [facility] [address] [place] [address] Dr. Mendel Herron INTERNAL CONTROLS Within Normal Limits Normal Wi thin Normal Limits [facility] Comment on above: Performed By: #### L IPID, CMP, T4, TSH, FT3 #### [facility] [address] [place] [address] Dr. Mendel Herron Cardiovascular Lab Reporton 08-18-2021 Cardiovascular Lab Report [facility] Patient Name: [facility] S MR #: [id number] Department of Physician: Curtis Martinez MD Medicine Service Date: 08/18/2021 Division of Birthdate: 1970 Cardiology Room #: [facility] [address] [place] [id number] Cardiovascular Laboratory Report ATRIAL FLUTTER ABLATION AND [...] ab (more content not included)... Normal [facility] BILL Antinuclear Antibodieson 04-23-2021 Antinuclear Abs, IFA Negative Normal . [facility] Comment on above: Result Comment: Nega tive <1:80 Borderline 1:80 Positive >1:80 ICAP nomenclature: AC-0 For more information about Hep-2 cell patterns use ANApatterns.org, the official website for the International Consensus on Antinuclear Antibody (BILL) Patterns (ICAP). Performed at: [address] [id number] Engineering Program Analyst: Ger Yen PhD, Phone: [phone] PERFORMED BY: [place] [address] PATHOLOGIST BOX PRINTING MACHINE OPERATOR MARIBEL AGUILLON M.D. Performed By: #### E SR, CRP, CBC, CREAT #### [address] #### BILL #### [facility] , C-Reactive Proteinon 021 C-Reactive Protein 0.7 mg/dL Normal 0.0-1.0 [facility] Comment on above: Result Comment: PERF ORMED BY: [place] [phone] PATHOLOGIST BOX PRINTING MACHINE OPERATOR MARIBEL AGUILLON M.D. Performed By: #### E SR, CRP, CBC, CREAT #### [place] [address] [place] #### BILL #### [facility] , Complement C3on 04-23-2021 Complement C3 170 mg/dL High 82-167 [facility] Comment on above: Result Comment: Perf ormed at: [address] [id number] Engineering Program Analyst: Ger Yen PhD, Phone: [phone] Performed By: #### A DDONUAPLUS #### [place] [address] [place] #### CH50, C3, C4 #### [facility] , Complement C4on 04-23-2021 Complement C4 14 mg/dL Normal 12-38 [facility] Comment on above: Performed By: #### A DDONUAPLUS #### [address] [address] #### CH50, C3, C4 #### [facility] , Complement Total (CH50)on Complement Total (CH50) >60 Normal >41 [facility] Comment on above: Result Comment: Age Male [...] determine out of range values. Performed at: [facility] [address] [id number] Engineering Program Analyst: Ger Yen PhD, Phone: [phone] PERFORMED BY: [place] [address] PATHOLOGIST BOX PRINTING MACHINE OPERATOR MARIBEL AGUILLON M.D. Performed By: #### E BS CMP, EBS LIPID #### [address] Complete Blood Count Auto Di ffon 04-23-2021 Basophils (Bld) [#/Vol] 0.1 10*3/uL Normal 0.0-0.2 [facility] Comment on above: Performed By: #### E SR, CRP, CBC, CREAT #### [address] #### BILL #### [facility] , Basophils/100 WBC (Bld) 0.7 % Normal . [facility] Comment on above: Performed By: #### E SR, CRP, CBC, CREAT #### [address] [place] [address] [place] #### BILL #### [facility] , Eosinophils (Bld) [#/Vol] 0.1 10*3/uL Normal 0.0-0.45 [facility] Comment on above: Performed By: #### E SR, CRP, CBC, CREAT #### [address] #### BILL #### [facility] , Eosinophils/100 WBC (Bld) 0.5 % Normal . [facility] Comment on above: Performed By: #### E SR, CRP, CBC, CREAT #### [address] #### BILL #### [facility] , Erythrocyte distribution width (RBC) [Ratio] 18.0 % High 11.9-15.3 [facility] Comment on above: Performed By: #### E SR, CRP, CBC, CREAT #### [address] #### BILL #### [facility] , Hematocrit (Bld) [Volume fraction] 31.6 % Low 34.0-46.4 [facility] Comment on above: Performed By: #### E SR, CRP, CBC, CREAT #### [place] [address] [place] #### BILL #### [facility] , Hemoglobin (Bld) [Mass/Vol] 9.8 g/dL Low 11.8-15.4 [facility] Comment on above: Performed By: #### E SR, CRP, CBC, CREAT #### [place] [address] [place] #### BILL #### [facility] , Lymphocytes (Bld) [#/Vol] 1.7 10*3/uL Normal 1.00-4.8 [facility] Comment on above: Performed By: #### E SR, CRP, CBC, CREAT #### [address] #### BILL #### [facility] , Lymphocytes/100 WBC (Bld) 15.0 % Normal . [facility] Comment on above: Performed By: #### E SR, CRP, CBC, CREAT #### [place] [address] [place] #### BILL #### [facility] , MCH (RBC) [Entitic mass] 24.8 pg Normal 24.7-34.3 [facility] Comment on above: Performed By: #### E SR, CRP, CBC, CREAT #### [address] #### BILL #### [facility] , MCV (RBC) [Entitic vol] 80.1 fL Normal 80-100 [facility] Comment on above: Performed By: #### E SR, CRP, CBC, CREAT #### [address] #### BILL #### [facility] , Mean Corpuscular HGB Conc 31.0 g/dL Low 32.0-35.0 [facility] Comment on above: Performed By: #### E SR, CRP, CBC, CREAT #### [place] [address] [place] #### BILL #### [facility] , Monocytes (Bld) [#/Vol] 0.5 10*3/uL Normal 0.0-0.8 [facility] Comment on above: Performed By: #### E SR, CRP, CBC, CREAT #### [place] [address] [place] #### BILL #### [facility] , Monocytes/100 WBC (Bld) 4.6 % Normal . [facility] Comment on above: Performed By: #### E SR, CRP, CBC, CREAT #### [facility] [address] [place] [address] #### BILL #### [facility] , Neutrophils (Bld) [#/Vol] 9.1 10*3/uL High 1.8-7.7 [facility] Comment on above: Performed By: #### E SR, CRP, CBC, CREAT #### [facility] [address] [place] [address] [place] #### BILL #### [facility] , Neutrophils/100 WBC (Bld) 79.2 % Normal . [facility] Comment on above: Performed By: #### E SR, CRP, CBC, CREAT #### [address] #### BILL #### [facility] , Nucleated RBC/100 WBC (Bld) [Ratio] 0.1 % Normal 0-0.5 [facility] Comment on above: Performed By: #### E SR, CRP, CBC, CREAT #### [address] #### BILL #### [facility] , Platelet mean volume (Bld) [Entitic vol] 8.3 fL Normal 6.3-10.7 [facility] Comment on above: Performed By: #### E SR, CRP, CBC, CREAT #### [place] [address] [place] #### BILL #### [facility] , Platelets (Bld) [#/Vol] 336 10*3/uL Normal 150-450 [facility] Comment on above: Performed By: #### E SR, CRP, CBC, CREAT #### [place] [address] [place] #### BILL #### [facility] , RBC (Bld) [#/Vol] 3.94 10*6/uL Normal 3.60-5.00 [facility] Comment on above: Performed By: #### E SR, CRP, CBC, CREAT #### [facility] [address] [place] [address] #### IBLL #### [facility] , WBC (Bld) [#/Vol] 11.5 10*3/uL High 4.5-11.0 [facility] Comment on above: Performed By: #### E SR, CRP, CBC, CREAT #### [address] #### BILL #### [facility] , Creatinineon 04-23-2021 Creatinine [Mass/Vol] 0.75 mg/dL Normal 0.44-1.03 [facility] Comment on above: Performed By: #### E SR, CRP, CBC, CREAT #### [address] #### BILL #### [facility] , Estimated GFR ( Ni > 60 Normal [facility] Comment on above: Result Comment: GFR estimated reference range: According to KDOQI guidelines, <60 ml/min/1.73m2 is sufficient to diagnose a patient with chronic kidney disease. Performed By: #### E SR, CRP, CBC, CREAT #### [facility] [address] [place] [address] [place] #### BILL #### [facility] , Estimated GFR (Non- Am > 60 Normal [facility] Comment on above: Performed By: #### E SR, CRP, CBC, CREAT #### [facility] [address] [place] [address] [place] #### BILL #### [facility] , Dipstick and Microscopicon 1 Appearance (U) Clear Normal Clear [facility] Comment on above: Order Comment: Name Collection Type:: Clean-Voided Midstream Performed By: #### A DDONUAPLUS #### [facility] [address] [place] [address] #### CH50, C3, C4 #### [facility] , Bacteria,Urine None Seen Normal None Seen [facility] Comment on above: Order Comment: Name Collection Type:: Clean-Voided Midstream Performed By: #### A DDONUAPLUS #### [address] #### CH50, C3, C4 #### [facility] , Bilirubin,Urine Negative Normal Negative [facility] Comment on above: Order Comment: Name Collection Type:: Clean-Voided Midstream Performed By: #### A DDONUAPLUS #### [address] #### CH50, C3, C4 #### [facility] , Color (U) Yellow Normal Yellow [facility] Comment on above: Order Comment: Name Collection Type:: Clean-Voided Midstream Performed By: #### A DDONUAPLUS #### [address] #### CH50, C3, C4 #### [facility] , Glucose Ql (U) 100 mg/dL High Normal [facility] Comment on above: Order Comment: Name Collection Type:: Clean-Voided Midstream Performed By: #### A DDONUAPLUS #### [facility] [address] [place] [address] #### CH50, C3, C4 #### [facility] , Hyaline Casts,Urine 0-8 Normal 0-8 [facility] Comment on above: Order Comment: Name Collection Type:: Clean-Voided Midstream Result Comment: PERF ORMED BY: [place] [address] PATHOLOGIST BOX PRINTING MACHINE OPERATOR MARIBEL AGUILLON M.D. Performed By: #### A DDONUAPLUS #### [address] [place] [address] [place] #### CH50, C3, C4 #### [facility] , Ketones Ql (U) Negative Normal Negative [facility] Comment on above: Order Comment: Name Collection Type:: Clean-Voided Midstream Performed By: #### A DDONUAPLUS #### [address] #### CH50, C3, C4 #### [facility] , Leukocyte esterase Test strip Ql (U) Negative Normal Negative [facility] Comment on above: Order Comment: Name Collection Type:: Clean-Voided Midstream Performed By: #### A DDONUAPLUS #### [address] #### CH50, C3, C4 #### [facility] , Nitrite,Urine Negative Normal Negative [facility] Comment on above: Order Comment: Name Collection Type:: Clean-Voided Midstream Performed By: #### A DDONUAPLUS #### [address] #### CH50, C3, C4 #### [facility] , Occult Blood,Urine Negative Normal Negative [facility] Comment on above: Order Comment: Name Collection Type:: Clean-Voided Midstream Performed By: #### A DDONUAPLUS #### [facility] [address] [place] [address] #### CH50, C3, C4 #### [facility] , pH (U) 5.0 [pH] Normal 5.0-9.0 [facility] Comment on above: Order Comment: Name Collection Type:: Clean-Voided Midstream Performed By: #### A DDONUAPLUS #### [facility] [address] [place] [address] #### CH50, C3, C4 #### [facility] , Protein,Urine Negative Normal Negative [facility] Comment on above: Order Comment: Name Collection Type:: Clean-Voided Midstream Performed By: #### A DDONUAPLUS #### [address] #### CH50, C3, C4 #### [facility] , RBC,Urine None Seen Normal 0-4 [facility] Comment on above: Order Comment: Name Collection Type:: Clean-Voided Midstream Performed By: #### A DDONUAPLUS #### [address] #### CH50, C3, C4 #### [facility] , Specificy [place],Urine 1.009 Normal 1.001-1.030 [facility] Comment on above: Order Comment: Name Collection Type:: Clean-Voided Midstream Performed By: #### A DDONUAPLUS #### [address] #### CH50, C3, C4 #### [facility] , Squamous Epithelial Cell,Urine 0-1 Normal 0-2 [facility] Comment on above: Order Comment: Name Collection Type:: Clean-Voided Midstream Performed By: #### A DDONUAPLUS #### [address] #### CH50, C3, C4 #### [facility] , Urobilinogen,Urine Normal Normal Normal [facility] Comment on above: Order Comment: Name Collection Type:: Clean-Voided Midstream Performed By: #### A DDONUAPLUS #### [address] #### CH50, C3, C4 #### [facility] , WBC LM.HPF (Urine sed) [#/Area] 0 /[HPF] Normal 0-4 [facility] Comment on above: Order Comment: Name Collection Type:: Clean-Voided Midstream Performed By: #### A DDONUAPLUS #### [facility] [address] [place] [address] [place] #### CH50, C3, C4 #### [facility] , Erythrocyte Sedimentation Ra ryley 04-23-2021 ESR (Bld) [Velocity] 55 mm/h High 0-29 [facility] Comment on above: Result Comment: PERF ORMED BY: [facility] [address] [place] [address] PATHOLOGIST BOX PRINTING MACHINE OPERATOR MARIBEL AGUILLON M.D. Performed By: #### E SR, CRP, CBC, CREAT #### [facility] [address] #### BILL #### [facility] , BASIC METABOLIC PANELon 03-20 Calcium [Mass/Vol] 8.7 mg/dL Normal 8.6-10.3 [facility] Comment on above: Order Comment: No: D o not add to previous draw Performed By: #### 5 7307, 42461 #### [facility] [address] [place] [address], [place] Chloride [Moles/Vol] 97 mmol/L Low 98-107 [facility] Comment on above: Order Comment: No: D o not add to previous draw Performed By: #### 5 7307, 88091 #### [facility] [address] [place] [address], [place] CO2 [Moles/Vol] 36 mmol/L High 21-31 [facility] Comment on above: Order Comment: No: D o not add to previous draw Performed By: #### 5 7307, 96291 #### [facility] [address] [place] [address], [place] Creatinine [Mass/Vol] 0.74 mg/dL Normal 0.60-1.20 [facility] Comment on above: Order Comment: No: D o not add to previous draw Performed By: #### 5 7307, 68644 #### [facility] [address] [place] [address], [place] GFR/1.73 sq M.predicted among blacks MDRD (S/P/Bld) [Vol rate/Area] mL/min/{1.73_m2} Normal >60 [facility] Comment on above: Order Comment: No: D o not add to previous draw Performed By: #### 5 7307, 89130 #### [facility] [address] [place] [address], [place] GFR/1.73 sq M.predicted among non-blacks MDRD (S/P/Bld) [Vol rate/Area] mL/min/{1.73_m2} Normal >60 [facility] Comment on above: Order Comment: No: D o not add to previous draw Performed By: #### 5 7307, 26723 #### [facility] [address] [place] [address], [place] Glucose [Mass/Vol] 123 mg/dL High 70-100 [facility] Comment on above: Order Comment: No: D o not add to previous draw Performed By: #### 5 7307, 52457 #### [facility] [address] [place] [address], [place] Potassium [Moles/Vol] 4.3 mmol/L Normal 3.5-5.1 [facility] Comment on above: Order Comment: No: D o not add to previous draw Performed By: #### 5 7307, 00194 #### [facility] [address] [place] [address], [place] Sodium [Moles/Vol] 139 mmol/L Normal 136-145 [facility] Comment on above: Order Comment: No: D o not add to previous draw Performed By: #### 5 7307, 67597 #### [facility] [address] [place] [address], [place] Urea nitrogen [Mass/Vol] 24 mg/dL Normal 7-25 [facility] Comment on above: Order Comment: No: D o not add to previous draw Performed By: #### 5 73, 92104 #### [facility] [address] [place] [address], [facility] CBC COMPLETE BLOOD COUNTon 0 - Erythrocyte distribution width (RBC) [Ratio] 16.8 % High 11.5-15.0 [facility] Comment on above: Order Comment: No: D o not add to previous draw Performed By: #### 5 7306, 90214 #### [facility] [address] [place] [address], [facility] Hematocrit (Bld) [Volume fraction] 29.7 % Low 36.0-45.0 [facility] Comment on above: Order Comment: No: D o not add to previous draw Performed By: #### 5 7306, 36336 #### [facility] [address] [place] [address], [facility] Hemoglobin (Bld) [Mass/Vol] 8.9 g/dL Low 12.0-15.0 [facility] Comment on above: Order Comment: No: D o not add to previous draw Performed By: #### 5 73, 71796 #### [facility] [address] [place] [address], [place] MCH (RBC) [Entitic mass] 25.4 pg Low 27.0-33.0 [facility] Comment on above: Order Comment: No: D o not add to previous draw Performed By: #### 5 73, 53287 #### [facility] [address] [place] [address], [place] MCHC (RBC) [Mass/Vol] 30.0 g/dL Low 32.0-35.0 [facility] Comment on above: Order Comment: No: D o not add to previous draw Performed By: #### 5 73, 20295 #### [facility] [address] [place] [address], [place] MCV (RBC) [Entitic vol] 84.9 fL Normal 82.0-98.0 [facility] Comment on above: Order Comment: No: D o not add to previous draw Performed By: #### 5 7307, 99087 #### [facility] [address] [place] [address], [place] Nucleated RBC/100 WBC (Bld) [Ratio] 0 % Normal 0-0 [facility] Comment on above: Order Comment: No: D o not add to previous draw Performed By: #### 5 7307, 97235 #### [facility] [address] [place] [address], [place] PLAT CNT 446 10*3/uL High 150-400 [facility] Comment on above: Order Comment: No: D o not add to previous draw Performed By: #### 5 7307, 95336 #### [facility] [address] [place] [address], [facility] RBC (Bld) [#/Vol] 3.50 10*6/uL Low 3.80-5.00 [facility] Comment on above: Order Comment: No: D o not add to previous draw Performed By: #### 5 7307, 65040 #### [facility] [address] [place] [address], [place] WBC (Bld) [#/Vol] 16.54 10*3/uL High 4.00-10.60 [facility] Comment on above: Order Comment: No: D o not add to previous draw Performed By: #### 5 7307, 07020 #### [facility] [address] [place] [id number], [facility] Cardiovascular Lab Reporton 04-11-2021 Cardiovascular Lab Report [facility] Patient Name: Antonio [facility] S MR #: [id number] Department of Physician: London Rodas M.D. Division of Service Date: 04/11/2021 Cardiology Birthdate: 1970 Adult Cardiovascular Room #: [id number] [facility] [address] [facility]. [place], [place] [address] Cardiovascular Laboratory Report PROCEDURE PERFORMED: Transesophageal echocardiogram and cardioversion. INDICATION: Atrial flutter. FELLOW: Dunia Sierra MD PROCEDURE IN DETAIL: Informed consent was obtained from the patient after explaining the indication, risks, benefits, as well as alternatives. The patient understood and agreed, and signed the consent form. The patient was brought to the clinical laboratory director and transesophageal echocardiogram was performed, under [...] Sierra MD Date Trans: 04/11/2021 12:53 P/marixa [id number] cc: Phillip Ann M.D. [address], [facility] [place] [facility] [id number] Normal [facility] MAGNESIUM BLOODon 04-11-2021 Magnesium [Mass/Vol] 2.3 mg/dL Normal 1.9-2.7 [facility] Comment on above: Order Comment: No: D o not add to previous draw Performed By: #### 5 7307, 30254 #### [facility] [address] [facility]. [address] POC GLUCOSE LABon 04-11-2021 Glucose [Mass/Vol] 124 mg/dL High 70-100 [facility] Comment on above: Performed By: #### 5 7307, 04139 #### [facility] [address] TROPONIN-Ion 04-11-2021 Troponin I.cardiac [Mass/Vol] 0.06 ng/mL High 0.00-0.04 [facility] Comment on above: Order Comment: No: D o not add to previous draw Result Comment: REFE RENCE RANGES: 0.00 - 0.04 ng/ml NORMAL 0.05 - 0.50 ng/ml INDETERMINATE > 0.50 ng/ml CONSISTENT WITH AN M.I. Performed By: #### 5 7307, 76550 #### [facility] [address] *BLOOD CULTUREon 04-10-2021 *BLOOD CULTURE Clinical Report: (D) Specimen: BLOOD CULTURE Collected: 04/10/2021 09:50 Status: Final Last Updated: 04/15/2021 11:28 (1) Right hand CULT RES (Final) No Growth Day 5 Normal [facility] Comment on above: Order Comment: No: D o not add to previous draw Performed By: #### 5 7307, 41869 #### [facility] [address] *BLOOD CULTURE Clinical Report: (D) Specimen: BLOOD CULTURE Collected: 04/10/2021 09:50 Status: Final Last Updated: 04/15/2021 11:28 (1) Left hand CULT RES (Final) No Growth Day 5 Normal [facility] Comment on above: Order Comment: No: D o not add to previous draw Performed By: #### 5 7307, 09521 #### [facility] [address] *SARS-CoV-2 COVID-19on 04-10 SARS-CoV-2 (COVID-19) RNA DEIRDRE+probe Ql (Unsp spec) Not detected Normal Not Detected [facility] Comment on above: Order Comment: No: D o not add to previous draw Performed By: #### 5 7307, 53622 #### [facility] [address] APTTon 04-10-2021 aPTT Coag (Bld) [Time] 23.4 s Low 25.0-35.0 [facility] Comment on above: Order Comment: No: [...] THIS PURPOSE. Performed By: #### 5 7307, 20923 #### [facility] [address] aPTT Coag (Bld) [Time] 23.2 s Low 25.0-35.0 [facility] Comment on above: Order Comment: No: [...] THIS PURPOSE. Performed By: #### 5 7307, 22030 #### [facility] [address] BASIC METABOLIC PANELon 03-20 Calcium [Mass/Vol] 8.6 mg/dL Normal 8.6-10.3 [facility] Comment on above: Order Comment: No: D o not add to previous draw Performed By: #### 1 0070, 37470, 45858 #### [facility] [address] [place] [address], [place] Chloride [Moles/Vol] 99 mmol/L Normal 98-107 [facility] Comment on above: Order Comment: No: D o not add to previous draw Performed By: #### 1 0, 74663, 16667 #### [facility] [address] [place] [address], [place] CO2 [Moles/Vol] 32 mmol/L High 21-31 [facility] Comment on above: Order Comment: No: D o not add to previous draw Performed By: #### 1 0, 97066, 70183 #### [facility] [address] [place] [address], [place] Creatinine [Mass/Vol] 0.84 mg/dL Normal 0.60-1.20 [facility] Comment on above: Order Comment: No: D o not add to previous draw Performed By: #### 1 0, 34794, 01370 #### [facility] [address] [place] [address], [place] GFR/1.73 sq M.predicted among blacks MDRD (S/P/Bld) [Vol rate/Area] mL/min/{1.73_m2} Normal >60 [facility] Comment on above: Order Comment: No: D o not add to previous draw Performed By: #### 1 0, 19746, 36023 #### [facility] [address] [place] [address], [place] GFR/1.73 sq M.predicted among non-blacks MDRD (S/P/Bld) [Vol rate/Area] mL/min/{1.73_m2} Normal >60 [facility] Comment on above: Order Comment: No: D o not add to previous draw Performed By: #### 1 0, 10296, 47019 #### [facility] [address] [place] [address], [place] Glucose [Mass/Vol] 117 mg/dL High 70-100 [facility] Comment on above: Order Comment: No: D o not add to previous draw Performed By: #### 1 0070, 84044, 08844 #### [facility] [address] [place] [address], [facility] Potassium [Moles/Vol] 3.9 mmol/L Normal 3.5-5.1 [facility] Comment on above: Order Comment: No: D o not add to previous draw Performed By: #### 1 0070, 05894, 22725 #### [facility] [address] [place] [address], [facility] Sodium [Moles/Vol] 139 mmol/L Normal 136-145 [facility] Comment on above: Order Comment: No: D o not add to previous draw Performed By: #### 1 0070, 90243, 52880 #### [facility] [address] [facility]. [address] Urea nitrogen [Mass/Vol] 19 mg/dL Normal 7-25 [facility] Comment on above: Order Comment: No: D o not add to previous draw Performed By: #### 1 0070, 65865, 58660 #### [facility] [address] [facility] [address] BNP (B-TYPE NATRIURETIC PEPT MARILYN)on 04-10-2021 Natriuretic peptide B (Bld) [Mass/Vol] 259 pg/mL High 0-100 [facility] Comment on above: Order Comment: No: D o not add to previous draw Result Comment: Give n the appropriate clinical setting a BNP result of >100 pg/mL indicates congestive heart failure. Performed By: #### 5 7307, 83553 #### [facility] [address] [facility] [place] [address], [facility] CBC W/DIFFon 04-10-2021 ABS IMM GRANS 1.1 10*3/uL High 0.0-0.2 [facility] Comment on above: Performed By: #### 5 0103 #### [facility] [address] [place] [id number], [facility] ABS NEUTROPHILS 9.6 10*3/uL High 1.6-7.6 [facility] Comment on above: Performed By: #### 5 0103 #### [facility] [address] [place] [address], [facility] ANISO MODERATE Normal [facility] Comment on above: Performed By: #### 5 0103 #### [facility] [address] [place] [address], [facility] Basophils (Bld) [#/Vol] 0.1 10*3/uL Normal 0.0-0.2 [facility] Comment on above: Performed By: #### 5 0103 #### [facility] [address] [place] [id number], [facility] Basophils/100 WBC (Bld) 0.7 % Normal 0.0-1.0 [facility] Comment on above: Performed By: #### 5 0103 #### [facility] [address] [place] [address], [facility] Eosinophils (Bld) [#/Vol] 0.1 10*3/uL Normal 0.0-0.5 [facility] Comment on above: Performed By: #### 5 0103 #### [facility] [address] [place] [address], [facility] Eosinophils/100 WBC (Bld) 0.4 % Normal 0.0-6.0 [facility] Comment on above: Performed By: #### 5 0103 #### [facility] [address] [address], [facility] Erythrocyte distribution width (RBC) [Ratio] 16.5 % High 11.5-15.0 [facility] Comment on above: Performed By: #### 5 0103 #### [facility] [address] [place] [id number] Hematocrit (Bld) [Volume fraction] 31.2 % Low 36.0-45.0 [facility] Comment on above: Performed By: #### 5 0103 #### [facility] [address] Hemoglobin (Bld) [Mass/Vol] 9.0 g/dL Low 12.0-15.0 [facility] Comment on above: Performed By: #### 5 0103 #### [facility] [address] HYPO SLIGHT Normal [facility] Comment on above: Performed By: #### 5 0103 #### [facility] [address] IMMATURE GRANS 6.8 % High 0.0-1.0 [facility] Comment on above: Performed By: #### 5 0103 #### [facility] [address] Lymphocytes (Bld) [#/Vol] 4.4 10*3/uL High 1.2-4.0 [facility] Comment on above: Performed By: #### 5 0103 #### [facility] [address] Lymphocytes/100 WBC (Bld) 26.4 % Normal 20.0-45.0 [facility] Comment on above: Performed By: #### 5 0103 #### [facility] [address] MCH (RBC) [Entitic mass] 25.3 pg Low 27.0-33.0 [facility] Comment on above: Performed By: #### 5 3 #### [facility] [address] [facility] MCHC (RBC) [Mass/Vol] 28.8 g/dL Low 32.0-35.0 [facility] Comment on above: Performed By: #### 5 0103 #### [facility] 3000 [facility]. [address] MCV (RBC) [Entitic vol] 87.6 fL Normal 82.0-98.0 [facility] Comment on above: Performed By: #### 5 3 #### [facility] [address] [facility] [place] [address], [facility] Monocytes (Bld) [#/Vol] 1.3 10*3/uL High 0.1-1.0 [facility] Comment on above: Performed By: #### 5 3 #### [facility] [address] MONOS 7.6 % Normal 5.0-12.0 [facility] Comment on above: Performed By: #### 5 3 #### [facility] [address] Neutrophils/100 WBC (Bld) 58.1 % Normal 40.0-72.0 [facility] Comment on above: Performed By: #### 5 102 #### [facility] [address] Nucleated RBC/100 WBC (Bld) [Ratio] 1 % High 0-0 [facility] Comment on above: Performed By: #### 5 3 #### [facility] [address] [facility] [place] [address], [facility] PLAT CNT 483 10*3/uL High 150-400 [facility] Comment on above: Performed By: #### 5 3 #### [facility] [address] POIK SLIGHT Normal [facility] Comment on above: Performed By: #### 102 #### [facility] [address] [facility] [place] [address], [facility] POLY SLIGHT Normal [facility] Comment on above: Performed By: #### 5 0103 #### [facility] [address] [place] [address], [facility] RBC (Bld) [#/Vol] 3.56 10*6/uL Low 3.80-5.00 [facility] Comment on above: Performed By: #### 5 0103 #### [facility] [address] [facility] [place] [address], [facility] WBC (Bld) [#/Vol] 16.54 10*3/uL High 4.00-10.60 [facility] Comment on above: Performed By: #### 5 0103 #### [facility] [address] [facility] [address] LIPID PROFILEon 04-10-2021 Cholesterol [Mass/Vol] 161 mg/dL Normal 120-200 [facility] Comment on above: Result Comment: CHOL ESTEROL REFERENCE RANGE: 20 YEARS AND OLDER CARDIOVASCULAR RISK Less than 200 mg/dl Low Risk 200 to 239 mg/dl Borderline Risk 240 mg/dl and greater High Risk Performed By: #### 3 1569, 19706, [id number] #### [facility] [address] [facility]. [address] Cholesterol in HDL [Mass/Vol] 61 mg/dL Normal 23-92 [facility] Comment on above: Result Comment: Slig ht variation in normal range could be due to gender and/or age. HDL CHOLESTEROL REFERENCE RANGE: 20 years and older Cardiovascular Risk > or =60 mg/dL Desirable 40 TO 59 mg/dL Low Risk <40 mg/dL High Risk Performed By: #### 3 1569, 96206, 99627 #### [facility] [address] [facility]. [address] Cholesterol in LDL [Mass/Vol] 28 mg/dL Normal 0-130 [facility] Comment on above: Result Comment: LDL IS A CALCULATION LDL IS ONLY VALID IF THE TRIG IS LESS THAN 400. Performed By: #### 3 1569, 36268, 15003 #### [facility] [address] [place] [address], [facility] Cholesterol.total/C holesterol in HDL [Mass ratio] 2.6 {ratio} Normal .0-4.5 [facility] Comment on above: Performed By: #### 3 1569, 14676, 26568 #### [facility] [address] [place] [address], [facility] NON-HDL CHOLESTEROL 100 mg/dL Normal [facility] Comment on above: Performed By: #### 3 1569, 25114, 20032 #### [facility] [address] [facility] [place] [address], [facility] Triglyceride [Mass/Vol] 362 mg/dL High 40-149 [facility] Comment on above: Result Comment: TRIG LYCERIDE REFERENCE RANGE: 20 YEARS AND OLDER CARDIOVASCULAR RISK LESS THAN 150 mg/dl LOW RISK 150 TO 199 mg/dl BORDERLINE RISK 200 mg/dl AND GREATER HIGH RISK Performed By: #### 3 1569, 86183, 96901 #### [facility] [address] [facility] [place] [address], [facility] VLDL CHOL 72 mg/dL High 0-40 [facility] Comment on above: Performed By: #### 3 1569, 33297, 03761 #### [facility] [address] [facility] [place] [address], [facility] MAGNESIUM BLOODon 04-10-2021 Magnesium [Mass/Vol] 2.4 mg/dL Normal 1.9-2.7 [facility] Comment on above: Order Comment: No: D o not add to previous draw Performed By: #### 1 0070, 82000, 09139 #### [facility] [address] [place] [address], [facility] POC GLUCOSE LABon 04-10-2021 Glucose [Mass/Vol] 350 mg/dL High 70-100 [facility] Comment on above: Performed By: #### 5 7976, 25764 #### [facility] [address] [place] [address], [facility] Glucose [Mass/Vol] 249 mg/dL High 70-100 [facility] Comment on above: Performed By: #### 5 7307, 67029 #### [facility] [address] [place] [address], [facility] PROCALCITONINon 04-10-2021 PROCALCITONIN 0.09 ng/mL Normal 0.00-0.10 [facility] Comment on above: Order Comment: No: [...] initial PCT<0.5ng/mL Performed By: #### 5 7307, 73810 #### [facility] [address] [place] [address], [facility] PROTHROMBIN TIMEon INR Coag (PPP) [Relative time] 1.07 {INR} Normal 0.91-1.16 [facility] Comment on above: Order Comment: No: [...] CHEST 1995;[id number]. Performed By: #### 5 7307, 93434 #### [facility] [address] [place] [address], [facility] PT Coag (PPP) [Time] 13.9 s Normal 12.3-14.8 [facility] Comment on above: Order Comment: No: D o not add to previous draw Result Comment: ALL RESULTS MUST BE INTERPRETED WITH RESPECT TO BLOOD DRAWING ARTIFACT OR DILUTION ERROR OF ANTICOAGULANT AT THE TIME OF SAMPLING. Performed By: #### 5 7307, 01516 #### [facility] [address] [place] [address], [facility] TROPONIN-Ion 04-10-2021 Troponin I.cardiac [Mass/Vol] 0.07 ng/mL High 0.00-0.04 [facility] Comment on above: Order Comment: No: D o not add to previous draw Result Comment: REFE RENCE RANGES: 0.00 - 0.04 ng/ml NORMAL 0.05 - 0.50 ng/ml INDETERMINATE > 0.50 ng/ml CONSISTENT WITH AN M.I. Performed By: #### 3 1569, 10256, 86609 #### [facility] [address] [facility]. [address] Troponin I.cardiac [Mass/Vol] 0.07 ng/mL High 0.00-0.04 [facility] Comment on above: Order Comment: No: D o not add to previous draw Result Comment: REFE RENCE RANGES: 0.00 - 0.04 ng/ml NORMAL 0.05 - 0.50 ng/ml INDETERMINATE > 0.50 ng/ml CONSISTENT WITH AN M.I. Performed By: #### 1 0070, 99993, 71516 #### [facility] [address] TSH3 WITH REFLEX FT4on 04-10 TSH 3RD GENERATION 0.95 uIU/mL Normal 0.34-5.60 [facility] Comment on above: Order Comment: Yes: Add to Previous draw if able Performed By: #### 3 1569 #### [facility] 3000 [facility]. [address] TSH 3RD GENERATION 3.12 uIU/mL Normal 0.34-5.60 [facility] Comment on above: Performed By: #### 3 1569, 12361, 17038 #### [facility] [address] [facility]. [address] UFH HEPARIN ASSAYon 04-10-20 21 UNFRACTIONATED HEPARIN >1.00 Critically high 0.30-0.70 [facility] Comment on above: Result Comment: Resu lt checked and called. Accurately read back by aHven Avila RN at 1122 per RN patient may have previously been given Eliquis. UFH = 1.36 for pharmacy use Rivaroxaban and Apixaban will interfere with the anti Xa assay used to monitor UFH and LMWH. Performed By: #### 5 7307, 84495 #### [facility] [address] [facility] [address] Cardiovascular Lab Reporton 01-30-2021 Cardiovascular Lab Report [facility] Patient Name: Diana Alvarez [facility] S MR #: [id number] Department of Physician: London Ross M.D. Division of Service Date: 01/30/2021 Cardiology Birthdate: 1970 Adult Cardiovascular Room #: [address] [place] [address] Cardiovascular Laboratory Report FINAL IMPRESSIONS: 1. Moderately [...] right internal jugular vein was obtained. A 6-Macedonian glide sheath was inserted without difficulty. A [...] P/Cassy Bear M.D. Date Trans: 01/30/2021 02:48 P/siriao [id number] cc: Phillip Ann M.D. [address] [facility] [id number] [facility] Vital Signs Date Time Vital Sign Value Performing Clinician Iman stafford 09-15-2022 15:24-0500 Blood Pressure Location [employer] [facility] 09-15-2022 15:24-0500 Diastolic blood pressure 78 mm[Hg] Juan Miguel OSHEAL [facility] 09-15-2022 15:24-0500 Heart rate 70 /min [employer] [facility] 09-15-2022 15:24-0500 Respiratory rate 16 /min Juan Miguel [employer] [facility] 09-15-2022 15:24-0500 Systolic blood pressure 116 mm[Hg] Juan Miguel [employer] [facility] Encounters Encounter Date Encounter Type Care Provider Facility Start: 01-11-2024 [facility] Start: 12-28-2023 ambulatory [facility] Start: 10-26-2023 End: 10-26-2023 ambulatory [facility] Start: 05-05-2023 End: 05-05-2023 ambulatory STACY VILLALTA [facility] Start: 11-17-2022 End: 11-17-2022 ambulatory EMILY ZHONG . Facility:[facility] Start: 10-28-2022 End: 10-28-[address] PHILLIP ANN . Facility:[facility] Start: 09-24-2022 End: 09-24-[address] PHILLIP ANN . Facility:[facility] Start: 09-15-2022 End: 09-16-2022 ambulatory Juan Miguel SALINAS Facility: [facility] Start: 09-15-2022 End: 09-15-2022 Patient encounter procedure [...] Evaluation and management of inpatient PHILLIP ANN Facility:[facility] Start: 01-30-2021 End: 01-31-2021 ambulatory CASSY BEAR Facility:[facility] Procedures Date Procedure Procedure Detail Performing Clinician Start: 04-11-2021 Yarsani of Cardi ac Rhythm, Single SAMER Sony [...] Activity Detail Author Start: 12-02-2022 ambulatory Ambulatory Facility:[facility] Immunizations Immunization Date Immunization Notes Care Provider Fa cili 04-18-2022 influenza virus vaccine, unspecified formulation Juan Miguel SALINAS [facility] 10-29-2020 SARS-CoV-2 (COVID-19 ) mRNA-1273 vaccine Juan Miguel SALINAS [facility] 10-25-2020 SARS-CoV-2 (COVID-19 ) mRNA BNT-162b2 vax Juan Miguel OSHEAL [facility] Comment on above: Result Comment: 2022: [id number] 10-24-2020 SARS-CoV-2 (COVID-19 ) mRNA BNT-162b2 vax Juan Miguel NILL [facility] 10-04-2020 SARS-CoV-2 (COVID-19 ) mRNA BNT-162b2 vax Juan Miguel NILL [facility] Comment on above: Result Comment: 2022: TPV50 10-03-2020 SARS-CoV-2 (COVID-19 ) mRNA BNT-162b2 vax Juan Miguel NILL [facility] Payers Date Payer Category Payer Unknown [id number] 1970 Unknown [id number] 2.16.8 [id number] 1970 Unknown [id number] 2.16.8 40.1.636055.3.579.2.647 1970 Unknown [id number] 2.16.8 40.1.463353.3.579.2.727 1970 Unknown [id number] 2.16.8 40.1.654750.3.579.2.727 1970 Unknown [id number] 2.16.84 0.1.790007.3.579.2.593 1970 Unknown [id number] 2.16.84 0.1.132727.3.579.2.593 1970 Unknown [id number] 2.16.84 0.1.231028.3.579.2.593 1970 Unknown [id number] 2.16.84 0.1.855294.3.579.2.593 1970 Unknown [id number] 2.16.84 0.1.473229.3.579.2.593 1970 Unknown [id number] 2.16.84 0.1.907428.3.579.2.593 1968 Unknown [id number] 2.16.84 0.1.591736.3.579.2.593 1968 Unknown [id number] 2.16.84 0.1.624298.3.579.2.593 1968 Unknown [id number] 2.16.84 0.1.645922.3.579.2.593 1968 Unknown [id number] 2.16.84 0.1.770176.3.579.2.593 1968 Unknown [id number] 2.16.84 0.1.770764.3.579.2.593 1968 Unknown [id number] 2.16.84 0.1.900867.3.579.2.593 1970 Unknown [id number] 2.16.84 0.1.676816.3.579.2.593 1961 Unknown [id number] 1961 Unknown [id number] 1961 Unknown [id number] 1961 Unknown [id number] Social History Date Type Detail Facility Start: 09-15-2022 Tobacco smoking status Ex-smoker (fi nding) [facility] Tobacco smoking status Never [facility] Sex Assigned At Female [facility] Medical Equipment Procedure Code Equipment Code Equipment Origin al Text Equipment Identifier Dates lancets, glucome ter, alcohol swabs, testing strips, insulin pen needles, Print Requisition, Supply Start: 08-25-2021 Functional Status Date Assessment Result Facility 09-15-2022 Functional Status N/A [facility] Progress note 10-26-2023 Note Date & Type Note Facility [...] All other systems reviewed and are negative. [facility] Progress note 10-26-2023 Note Date & Type Note Facility 10-26-2023 Note Cardiovascular Medic [facility] SUBJECTIVE Chief Complaint Patient presents with [...] trended upwards is a since seen in [facility] 04/28/2023 and was diagnosed with vertigo [...] 04/10/2021 atrial flutter 08/18/2021 shows atrial fibrillation 07/[address] martinez HPI: Patient here [...] (paroxysmal atrial fi (more content not included)... [facility] Progress note 05-05-2023 Note Date & Type Note Facility 05-05-2023 Note [place] Cardiology Consul t Note Reason for visit: [...] trended upwards is a since seen in [facility] 04/28/2023 and was diagnosed with vertigo [...] 04/10/2021 atrial flutter 08/18/2021 shows atrial fibrillation 07/[address] martinez HPI: Patient here [...] Take 1 table (more content not included)... [facility] Progress note 05-05-2023 Note Date & Type Note Facility 05-05-2023 Note Patient here for 3 m [...] All other systems reviewed and are negative. [facility] Clinical Note 11-17-2022 Note Date & Type Note Facility 11-17-2022 Note PROCEDURE: XR CHEST 1 V [...] by: AUDREY BO Date: 2022-11-17 12:14 [facility] Clinical Note 09-17-2022 Note Date & Type Note Facility 09-17-2022 Note Chief Complaint consultation for epigastric pain and nausea HPI Staff 51 year old female presents on consultation from Dr. Ann for intermittent abdominal pain. Presented to [facility] 08/09 with complaint of epigastric pain [...] section, section, Excisi (more content not included)... [facility] Comment on above: Result Comment: Elec tronically Signed By: BRAD DIAZ, Juan Miguel Lee.lev\Date and Time Signed: 09/17/22 11:55 EST Discharge summary note 04-12-2021 Note Date & Type Note Facility 04-12-2021 Note MR#: [id number] I [facility] Pt. Name: Diana Alvarez Admitted: 04/10/2021 Discharged: 04/11/2021 Date of : 1970 Physician: Orlin Wick MD DISCHARGE SUMMARY PRIMARY DIAGNOSIS: New-onset atrial flutter with RVR. SECONDARY DIAGNOSES: 1. Pulmonary hypertension. 2. COPD. 3. Diabetes. HISTORY OF PRESENT ILLNESS: This patient is a 50-year-old female with past medical history of COPD, hypertension, and diabetes, who was sent from [facility] due to atrial flutter with RVR due to COPD exacerbation. The patient was initially treated with IV Cardizem, however, it was changed to p.o. prior to transfer. The patient was also given loading dose digoxin. The patient was transferred to [facility] for cardioversion. HOSPITAL COURSE: 1. New-onset [...] by: Orlin Wick MD 04/15/2021 08:24 A _ Orlin Wick MD Date Dict: 04/12/2021/03:07 P/Orlin Wick MD Date Trans: 04/12/2021 03:25 P/marixa [id number] cc: Phillip Ann M.D. [address], [place] [address] [facility] Evaluation + Plan note Note Date & Type Note Facility Evaluation + Plan note No data available for this section [facility] Discharge instructions Note Date & Type Note Facility Hospital Discharge instructions No data available for this section [facility] Progress note Note Date & Type Note Facility Progress note No data available for this section [facility] Summary Purpose Family History No Family History Records FoundNo Family History Records FoundNo Family History Records FoundNo Family History Records FoundNo Family History Records Found Advance Directives No Advanced Directives Records FoundNo Advanced Directives Records FoundNo Advanced Directives Records FoundNo Advanced Directives Records FoundNo Advanced Directives Records Found Additional Source Comments INFORMATION SOURCE (unrecogn ized section and content) DATE CREATED AUTHOR 09/10/2021 [facility] DATE CREATED AUTHOR AUTHOR'S ORGANIZ ATION 12/24/2021 [facility] DATE CREATED AUTHOR AUTHOR'S ORGANIZ ATION 10/22/2022 [facility] DATE CREATED AUTHOR AUTHOR'S ORGANIZ ATION 11/20/2022 [facility] DATE CREATED AUTHOR AUTHOR'S ORGANIZ ATION 02/02/2024 [facility] Patient Care team informatio n (unrecognized section and content) Personnel Name: Phillip Ann MD Address: Address: [address] [place] [address] FOR RECORDS PERTAINING TO PATIENTS WHO ARE [...] BE BASED ON THE PRIMARY CLINICAL RECORDS. [facility]. provides no warranty or guarantee of the accuracy or completeness of information in this document.
[2024-03-10 11:37] VITALS: BP 127/73; PULSE 92; TEMP 36.4; O2SAT 94
[2024-03-10] MEDS: 0.9 % SODIUM CHLORIDE 1,000 ML 1000 ML IV ×2 (12:00→13:00)
== END 2024-03-18 23:59 | disposition home or self-care (01) ==
LOC: INF 10:50
PROVIDERS: PCP Family Medicine; Visit Provider Family Medicine
DX: E11.9 Type 2 diabetes mellitus without complications (principal); K62.9 Disease of anus and rectum, unspecified; E86.0 Dehydration
CPT/HCPCS: 36415; 80053; 85025; 96360; 96361

== ENCOUNTER 2024-03-11 14:24 | Outpatient (REF) | payer OTHER, SELFPAY ==
--- OUTSIDE RECORDS SUMMARY | 2024-03-11 14:27 | XMS_ITS | CCD ---
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 Name Role Phone CASSY BEAR A Admitting Unavailable CASSY BEAR Attending Unavailable PHILLIP ANN Referring Unavailable PHILLIP ANN Primary Care Unavailable PHILLIP ANN Referring Unavailable XIAO TORRES Surgeon Unavailable ORLIN HUI Attending Unavailable CALLI PAIGE Admitting Unavailable SC Procedure Practitioner Unavailab PHILLIP Muñoz Primary Care Unavailable SC Procedure Practitioner Unavailab Dunia Light Surgeon UnavailPhillip Chan Primary Care Physician [phone] Juan Miguel SALINAS Attending Unavailable Phillip Ann [...] Unavailable HOY ., DR FISHER Admitting Unavailable [place], DR VIVI Wyman Consulting Unavailable STACY VILLALTA [...] Morphine; Translations: [morphine] Drug Allergy 9 [facility] Repository (1 source) 22948,00; Translations: [47406,00] Propensity to adverse reactions (disorder) 0 [facility] Repository (1 source) Morphine; Translations: [morphine] Drug Allergy Feeling nervous (finding), Tachycardia (finding) [facility] [place] (1 source) No Known Medication Allergies; Translations: [No Known Medication Allergies] Propensity to adverse reactions (disorder) [facility] Repository (1 source) dulaglutide; Translations: [DULAGLUTIDE] Drug Allergy 3 [facility] Repository Medications Current Medications Medication Drug Class(es) Dates Sig (Normalized) Sig (Original) [id number] 200 actuat albuterol 0.09 mg/actuat metered dose [...] disease (1 source) Atherosclerotic heart disease of [place] coronary artery without angina pectoris; Translations: [ASHD MOHEGAN CA W/O ANGINA PECTORIS] Onset: 08-11-2022 Chronic [...] Onset: 09-13-2022 Chronic Other aftercare (1 source) [facility] (current) use of anticoagulants; Translations: [INSTRUCTIONAL COACH CURRNT USE ANTICOAGULANTS] Onset: 11-19-2022 Episodic Other aftercare (1 source) Other long-term (current) drug therapy; Translations: [OTH INSTRUCTIONAL COACH CURRENT DRUG THERAPY] Onset: 11-19-2022 Episodic Other aftercare (1 source) 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 Thanks! Normal [facility] 01-11-2024 36 Pt calling with bp's 156/83 133/78 147/80 146/78 157/72 148/80 120/80 Normal [facility] 12-23-2023 36 Regarding echo perfo [...] weeks with readings. She verbalized understanding. Normal [facility] Telephoneon 12-23-2023 Telephone [id number] Cyndi Alvarez 1970 F Date Provider Department [place] 12/23/2023 AbelMIGUEL ESPITIA TISH [facility] Family History Problem Relation Age of Onset Breast cancer Mother Aneurysm Mother Stroke Mother Heart attack Father Coronary artery disease Father Family Status - Relation Status Age at Mother Father [facility] 36on 11-10-2023 36 Call reference # [id number]. - Approval # [id number] approved from 11/05/23 - 01/04/24. Normal [facility] Office Visiton 10-26-2023 Follow-up visit [id number] Cyndi Alvarez 1970 Date Provider Department [place] 10/26/2023 [facility] Family History Problem Relation Age of Onset Breast cancer Mother Aneurysm Mother Stroke Mother Heart attack Father Coronary artery disease Father Family Status - Relation Status Age at Mother Father Level of Service:14186 [place] OFFICE/OUTPATIENT ESTABLISHED MOD MDM 30 MIN Reason for Visit and Comments: Atrial Flutter [101] Congestive Heart Failure [127] Normal [facility] Office Visiton 05-05-2023 Follow-up visit [id number] Cyndi Alvarez 1970 Date Provider Department [place] 05/05/2023 STACY RODRIGUEZ TISH [facility] Family History Problem Relation Age of Onset Breast cancer Mother Aneurysm Mother Stroke Mother Heart attack Father Coronary artery disease Father Family Status - Relation Status Age at Mother Father Level of Service:36927 [place] OFFICE/OUTPATIENT ESTABLISHED MOD MDM 30-39 MIN [facility] CBC AUTO DIFFon 10-28-2022 BASO # 0.0 103/ul Normal 0.0-0.1 [facility] Comment on above: Performed By: #### L IPID, CMP, T4, TSH, FT3 #### [facility] [address] [place] [address] Dr. Mendel Herron Basophils/100 WBC (Bld) 0.2 % Normal 0.2-2.0 [facility] Comment on above: Performed By: #### L IPID, CMP, T4, TSH, FT3 #### [facility] [address] [place] [address] Dr. Mendel Herron EO # 0.0 103/ul Normal 0.0-0.7 [facility] Comment on above: Performed By: #### L IPID, CMP, T4, TSH, FT3 #### [facility] [address] [place] [address] Dr. Mendel Herron Eosinophils/100 WBC (Bld) 0.3 % Critically low 0.9-7.0 [facility] Comment on above: Performed By: #### L IPID, CMP, T4, TSH, FT3 #### [facility] [address] [place] [address] Dr. Mendel Herron Erythrocyte distribution width (RBC) [Ratio] 13.6 % Normal 11.0-15.0 [facility] Comment on above: Performed By: #### L IPID, CMP, T4, TSH, FT3 #### [facility] [address] [place] [address] Dr. Mendel Herron Hematocrit (Bld) [Volume fraction] 40.1 % Normal 36.0-48.0 [facility] Comment on above: Performed By: #### L IPID, CMP, T4, TSH, FT3 #### [facility] [address] [place] [address] Dr. Mendel Herron Hemoglobin (Bld) [Mass/Vol] 13.0 g/dL Normal 12.0-16.0 [facility] Comment on above: Performed By: #### L IPID, CMP, T4, TSH, FT3 #### [facility] [address] [place] [address] Dr. Mendel Herron IG # 0.06 10e3/ul Critically high 0.00-0.03 [facility] Comment on above: Performed By: #### L IPID, CMP, T4, TSH, FT3 #### [facility] [address] [place] [address] Dr. Mendel Herron IG % 0.5 % Normal 0.0-0.5 [facility] Comment on above: Performed By: #### L IPID, CMP, T4, TSH, FT3 #### [facility] [address] [place] [address] Dr. Mendel Herron LYMPH # 2.8 103/ul Normal 1.2-3.8 [facility] Comment on above: Performed By: #### L IPID, CMP, T4, TSH, FT3 #### [facility] [address] [place] [address] Dr. Mendel Herron Lymphocytes/100 WBC (Bld) 22.4 % Normal 20.5-60.0 [facility] Comment on above: Performed By: #### L IPID, CMP, T4, TSH, FT3 #### [facility] [address] [place] [address] Dr. Mendel Herron MANUAL DIFF REQ NO Normal [facility] Comment on above: Performed By: #### L IPID, CMP, T4, TSH, FT3 #### [facility] [address] [place] [address] Dr. Mendel Herron MCH (RBC) [Entitic mass] 30.8 pg Normal 26.7-34.0 [facility] Comment on above: Performed By: #### L IPID, CMP, T4, TSH, FT3 #### [facility] [address] [place] [address] Dr. Mendel Herron MCHC (RBC) [Mass/Vol] 32.4 g/dL Normal 29.9-35.2 [facility] Comment on above: Performed By: #### L IPID, CMP, T4, TSH, FT3 #### [facility] [address] [place] [address] Dr. Mendel Herron MCV (RBC) [Entitic vol] 95.0 fL Normal 81.0-99.0 [facility] Comment on above: Performed By: #### L IPID, CMP, T4, TSH, FT3 #### [facility] [address] [address] [address] Mendel Herron MONO # 0.9 103/ul Critically high 0.3-0.8 [facility] Comment on above: Performed By: #### L IPID, CMP, T4, TSH, FT3 #### [facility] [address] [place] [address] Dr. Mendel Herron Monocytes/100 WBC (Bld) 7.2 % Normal 1.7-12.0 [facility] Comment on above: Performed By: #### L IPID, CMP, T4, TSH, FT3 #### [facility] [address] [place] [address] Dr. Mendel Herron NEUT # 8.6 103/ul Critically high 1.4-6.5 [facility] Comment on above: Performed By: #### L IPID, CMP, T4, TSH, FT3 #### [facility] [address] [place] [address] Dr. Mendel Herron Neutrophils/100 WBC (Bld) 69.4 % Normal 43.0-75.0 [facility] Comment on above: Performed By: #### L IPID, CMP, T4, TSH, FT3 #### [facility] [address] [place] [address] Dr. Mendel Herron Platelet mean volume (Bld) [Entitic vol] 9.9 fL Normal 9.5-13.5 [facility] Comment on above: Performed By: #### L IPID, CMP, T4, TSH, FT3 #### [facility] [address] [place] [address] Dr. Mendel Herron PLT 297 103/ul Normal 150-450 [facility] [place] [facility] Comment on above: Performed By: #### L IPID, CMP, T4, TSH, FT3 #### [facility] [address] [place] [address] Dr. Mendel Herron RBC 4.22 106/ul Normal 4.20-5.40 [facility] [place] [facility] Comment on above: Performed By: #### L IPID, CMP, T4, TSH, FT3 #### [facility] [address] [address] [address] Mendel Herron WBC 12.4 103/ul Critically high 4.0-11.0 [facility] Comment on above: Performed By: #### L IPID, CMP, T4, TSH, FT3 #### [facility] [address] [address] [address] Mendel Herron CRPon 10-28-2022 CRP 1.3 mg/dL Critically high <=1.0 [facility] Comment on above: Performed By: #### L IPID, CMP, T4, TSH, FT3 #### [facility] [address] [address] [address] Mendel Herron PROF CHEM 8 (BAS METB)on Anion gap [Moles/Vol] 13.6 mmol/L Normal [facility] Comment on above: Performed By: #### L IPID, CMP, T4, TSH, FT3 #### [facility] [address] [address] [address] Mendel Herron Calcium [Mass/Vol] 9.3 mg/dL Normal 8.5-10.1 [facility] Comment on above: Performed By: #### L IPID, CMP, T4, TSH, FT3 #### [facility] [address] [address] [address] Mendel Herron Chloride [Moles/Vol] 102 mmol/L Normal 98-107 [facility] Comment on above: Performed By: #### L IPID, CMP, T4, TSH, FT3 #### [facility] [address] [address] [address] Mendel Herron CO2 [Moles/Vol] 30.7 mmol/L Normal 21.0-32.0 [facility] Comment on above: Performed By: #### L IPID, CMP, T4, TSH, FT3 #### [facility] [address] [address] [address] Mendel Herron Creatinine [Mass/Vol] 0.85 mg/dL Normal 0.55-1.02 [facility] Comment on above: Performed By: #### L IPID, CMP, T4, TSH, FT3 #### [facility] [address] [address] [address] Mendel Herron EGFR-AF LEBANESE >60 Normal >=60 [facility] Comment on above: Performed By: #### L IPID, CMP, T4, TSH, FT3 #### [facility] [address] [place] [address] Dr. Mendel Herron EGFR-NON AF LEBANESE >60 Normal >=60 [facility] Comment on above: Performed By: #### L IPID, CMP, T4, TSH, FT3 #### [facility] [address] [place] [address] Dr. Mendel Herron Glucose [Mass/Vol] 101 mg/dL Normal 74-106 [facility] Comment on above: Performed By: #### L IPID, CMP, T4, TSH, FT3 #### [facility] [address] [address] [address] Mendel Herron Potassium [Moles/Vol] 3.3 mmol/L Critically low 3.5-5.1 [facility] Comment on above: Performed By: #### L IPID, CMP, T4, TSH, FT3 #### [facility] [address] [place] [address] Dr. Mendel Herron Sodium [Moles/Vol] 143 mmol/L Normal 136-145 [facility] Comment on above: Performed By: #### L IPID, CMP, T4, TSH, FT3 #### [facility] [address] [place] [address] Dr. Mendel Herron Urea nitrogen [Mass/Vol] 12.0 mg/dL Normal 7.0-18.0 [facility] Comment on above: Performed By: #### L IPID, CMP, T4, TSH, FT3 #### [facility] [address] [place] [address] Dr. Mendel Herron Urea nitrogen/Creatinine [Mass ratio] 14.1 mg/mg Normal [facility] Comment on above: Performed By: #### L IPID, CMP, T4, TSH, FT3 #### [facility] [address] [place], [place] [address] Dr. Mendel Herron URIC ACID SERUMon 10-28-2022 Urate [Mass/Vol] 7.8 mg/dL Critically high 2.6-6.0 [facility] Comment on above: Performed By: #### L IPID, CMP, T4, TSH, FT3 #### [facility] [address] [place], [place] [address] Dr. 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 Mendel Herron Consent for Procedure/Surger yon 09-17-2022 Consent for Procedure/Surgery [id number]#[id number]: 127 Normal [facility] Facesheeton 09-17-2022 Facesheet [id number] [id number]#1.00CD: 127 [facility] Pre-Certification Formon Pre-Certification Form [id number]#1.00CD: 127 [facility] Ambulatory Visit Summaryon 0 09-15-2022 Ambulatory [...] Pulmonary HTN Pure hypercholesterolemia RUQ pain Normal [facility] ED Note-Physicianon 09-14-19 ED Note-Physician [id number]#[id number]: 127 Normal [facility] RAD - MISCon 09-14-2022 RAD - MISC [id number] 2021 [id number]#1.00CD: 127 Normal [facility] RAD - Ultrasound Reporton RAD - Ultrasound Report [id number]#[id number]: 127 Normal [facility] CBC AUTO DIFFon 09-09-2022 BASO # 0.1 103/ul Normal 0.0-0.1 [facility] Comment on above: Performed By: #### L IPID, CMP, T4, TSH, FT3 #### [facility] [address] [address] [address] Mendel Herron Basophils/100 WBC (Bld) 0.7 % Normal 0.2-2.0 [facility] [place] [facility] Comment on above: Performed By: #### L IPID, CMP, T4, TSH, FT3 #### [facility] [address] [address] [address] Mendel Herron EO # 0.1 103/ul Normal 0.0-0.7 [facility] Comment on above: Performed By: #### L IPID, CMP, T4, TSH, FT3 #### [facility] [address] [place] [address] Dr. Mendel Herron Eosinophils/100 WBC (Bld) 0.7 % Critically low 0.9-7.0 [facility] Comment on above: Performed By: #### L IPID, CMP, T4, TSH, FT3 #### [facility] [address] [address] [address] Mendel Herron Erythrocyte distribution width (RBC) [Ratio] 13.1 % Normal 11.0-15.0 [facility] Comment on above: Performed By: #### L IPID, CMP, T4, TSH, FT3 #### [facility] [address] [place] [address] Dr. Mendel Herron Hematocrit (Bld) [Volume fraction] 43.7 % Normal 36.0-48.0 [facility] Comment on above: Performed By: #### L IPID, CMP, T4, TSH, FT3 #### [facility] [address] [place] [address] Dr. Mendel Herron Hemoglobin (Bld) [Mass/Vol] 14.4 g/dL Normal 12.0-16.0 [facility] Comment on above: Performed By: #### L IPID, CMP, T4, TSH, FT3 #### [facility] [address] [place] [address] Dr. Mendel Herron IG # 0.11 10e3/ul Critically high 0.00-0.03 [facility] Comment on above: Performed By: #### L IPID, CMP, T4, TSH, FT3 #### [facility] [address] [place] [address] Dr. Mendel Herron IG % 1.3 % Critically high 0.0-0.5 [facility] Comment on above: Performed By: #### L IPID, CMP, T4, TSH, FT3 #### [facility] [address] [place] [address] Dr. Mendel Herron LYMPH # 2.4 103/ul Normal 1.2-3.8 [facility] [place] [facility] Comment on above: Performed By: #### L IPID, CMP, T4, TSH, FT3 #### [facility] [address] [place] [address] Dr. Mendel Herron Lymphocytes/100 WBC (Bld) 27.9 % Normal 20.5-60.0 [facility] [place] [facility] Comment on above: Performed By: #### L IPID, CMP, T4, TSH, FT3 #### [facility] [address] [place] [address] Dr. Mendel Herron MANUAL DIFF REQ NO Normal [facility] Comment on above: Performed By: #### L IPID, CMP, T4, TSH, FT3 #### [facility] [address] [place] [address] Dr. Mendel Herron MCH (RBC) [Entitic mass] 31.0 pg Normal 26.7-34.0 [facility] Comment on above: Performed By: #### L IPID, CMP, T4, TSH, FT3 #### [facility] [address] [place] [address] Dr. Mendel Herron MCHC (RBC) [Mass/Vol] 33.0 g/dL Normal 29.9-35.2 [facility] Comment on above: Performed By: #### L IPID, CMP, T4, TSH, FT3 #### [facility] [address] [place] [address] Dr. Mnedel Herron MCV (RBC) [Entitic vol] 94.0 fL Normal 81.0-99.0 [facility] Comment on above: Performed By: #### L IPID, CMP, T4, TSH, FT3 #### [facility] [address] [place] [address] Dr. Mendel Herron MONO # 0.5 103/ul Normal 0.3-0.8 [facility] Comment on above: Performed By: #### L IPID, CMP, T4, TSH, FT3 #### [facility] [address] [place] [address] Dr. Mendel Herron Monocytes/100 WBC (Bld) 6.0 % Normal 1.7-12.0 [facility] Comment on above: Performed By: #### L IPID, CMP, T4, TSH, FT3 #### [facility] [address] [place] [address] Dr. Mendel Herron NEUT # 5.4 103/ul Normal 1.4-6.5 [facility] Comment on above: Performed By: #### L IPID, CMP, T4, TSH, FT3 #### [facility] [address] [address] [address] Mendel Herron Neutrophils/100 WBC (Bld) 63.4 % Normal 43.0-75.0 [facility] Comment on above: Performed By: #### L IPID, CMP, T4, TSH, FT3 #### [facility] [address] [place] [address] Dr. Mendel Herron Platelet mean volume (Bld) [Entitic vol] 9.8 fL Normal 9.5-13.5 [facility] Comment on above: Performed By: #### L IPID, CMP, T4, TSH, FT3 #### [facility] [address] [place] [address] Dr. Mendel Herron PLT 398 103/ul Normal 150-450 [facility] Comment on above: Performed By: #### L IPID, CMP, T4, TSH, FT3 #### [facility] [address] [place] [address] Dr. Mendel Herron RBC 4.65 106/ul Normal 4.20-5.40 [facility] Comment on above: Performed By: #### L IPID, CMP, T4, TSH, FT3 #### [facility] [address] [place] [address] Dr. Mendel Herron WBC 8.6 103/ul Normal 4.0-11.0 [facility] Comment on above: Performed By: #### L IPID, CMP, T4, TSH, FT3 #### [facility] [address] [place] [address] Dr. Mendel Herron FREE T3on 09-09-2022 FREE T3 2.59 pg/mlL Normal 2.18-3.98 [facility] Comment on above: Performed By: #### L IPID, CMP, T4, TSH, FT3 #### [facility] [address] [address] [address] Mendel Herron GLYCOHEMOGLOBIN A1Con 2022 ADA RECOMMENDATION SEE BELOW Normal [facility] Comment on above: Result Comment: ADA RECOMMENDED LIMIT 4.0 - 6.0 ADA THERAPEUTIC TARGET < 7.0 ACTION SUGGESTED > 7.0 Performed By: #### A 1C #### [facility] [address] [place] [address] Dr. Mendel Herron Glucose [Mass/Vol] 120 mg/dL Normal [facility] Comment on above: Performed By: #### A 1C #### [facility] [address] [place] [address] Dr. Mendel Herron HbA1c (Bld) [Mass fraction] 5.8 % Normal 4.5-6.2 [facility] Comment on above: Performed By: #### A 1C #### [facility] [address] [place] [address] Dr. Mendel Herron LIPID PROFILEon 09-09-2022 CHOL-HDL RATIO NORM SEE BELOW Normal [facility] Comment on above: Result Comment: 3.3 - 4.4 LOW RISK 4.4 - 7.1 AVERAGE RISK 7.1 - 11.0 MODERATE RISK >11.0 HIGH RISK Performed By: #### L IPID, CMP, T4, TSH, FT3 #### [facility] [address] [address] [address] Mendel Herron Cholesterol [Mass/Vol] 308 mg/dL Critically high <=200 [facility] Comment on above: Performed By: #### L IPID, CMP, T4, TSH, FT3 #### [facility] [address] [place] [address] Dr. Mendel Herron Cholesterol in HDL [Mass/Vol] 46 mg/dL Normal 40-60 [facility] Comment on above: Performed By: #### L IPID, CMP, T4, TSH, FT3 #### [facility] [address] [place] [address] Dr. Mendel Herron Cholesterol in LDL [Mass/Vol] 212.6 mg/dL Normal [facility] Comment on above: Performed By: #### L IPID, CMP, T4, TSH, FT3 #### [facility] [address] [address] [address] Mendel Herron Cholesterol.total/C holesterol in HDL [Mass ratio] 6.7 {ratio} Normal [facility] Comment on above: Performed By: #### L IPID, CMP, T4, TSH, FT3 #### [facility] [address] [address] [address] Mendel Herron HDL NORMAL > or = 60 mg/dl - LO W CARDIOVASCULAR RISK <40 mg/dl - HIGH CARDIOVASCULAR RISK Normal [facility] Comment on above: Performed By: #### L IPID, CMP, T4, TSH, FT3 #### [facility] [address] [address] [address] Mendel Herron LDL CALC NORMAL SEE BELOW Normal [facility] Comment on above: Result Comment: <100 mg/dl OPTIMAL 100 - 129 mg/dl NEAR OR ABOVE OPTIMAL 130 - 159 mg/dl BORDERLINE HIGH 160 - 189 mg/dl HIGH >190 mg/dl VERY HIGH Performed By: #### L IPID, CMP, T4, TSH, FT3 #### [facility] [address] [address] [address] Mendel Herron Triglyceride [Mass/Vol] 247 mg/dL Critically high <=150 [facility] Comment on above: Performed By: #### L IPID, CMP, T4, TSH, FT3 #### [facility] [address] [address] [address] Mendel Herron VLDL CALC 49.4 mg/dL Normal [facility] Comment on above: Performed By: #### L IPID, CMP, T4, TSH, FT3 #### [facility] [address] [address] [address] Mendel Herron PROF 14(COMP METB)on 023 Albumin [Mass/Vol] 4.0 g/dL Normal 3.4-5.0 [facility] Comment on above: Performed By: #### L IPID, CMP, T4, TSH, FT3 #### [facility] [address] [place] [address] Dr. Mendel Herron Albumin/Globulin [Mass ratio] 0.9 {ratio} Normal [facility] Comment on above: Performed By: #### L IPID, CMP, T4, TSH, FT3 #### [facility] [address] [place] [address] Dr. Mendel Herron ALP [Catalytic activity/Vol] 115 U/L Normal 46-116 [facility] Comment on above: Performed By: #### L IPID, CMP, T4, TSH, FT3 #### [place] [facility] [facility] [address] [place] [address] Dr. Mendel Herron ALT [Catalytic activity/Vol] 30 U/L Normal 14-59 [facility] Comment on above: Performed By: #### L IPID, CMP, T4, TSH, FT3 #### [facility] [address] [place] [address] Dr. Mendel Herron Anion gap [Moles/Vol] 12.7 mmol/L Normal [facility] Comment on above: Performed By: #### L IPID, CMP, T4, TSH, FT3 #### [facility] [address] [place] [address] Dr. Mendel Herron AST [Catalytic activity/Vol] 18 U/L Normal 15-37 [facility] Comment on above: Performed By: #### L IPID, CMP, T4, TSH, FT3 #### [facility] [address] [place] [address] Dr. Mendel Herron Bilirubin [Mass/Vol] 0.7 mg/dL Normal 0.2-1.0 [facility] Comment on above: Performed By: #### L IPID, CMP, T4, TSH, FT3 #### [facility] [address] [place] [address] Dr. Mendel Herron Calcium [Mass/Vol] 9.7 mg/dL Normal 8.5-10.1 [facility] Comment on above: Performed By: #### L IPID, CMP, T4, TSH, FT3 #### [facility] [address] [address] [address] Mendel Herron Chloride [Moles/Vol] 103 mmol/L Normal 98-107 [facility] Comment on above: Performed By: #### L IPID, CMP, T4, TSH, FT3 #### [facility] [address] [place] [address] Dr. Mendel Herron CO2 [Moles/Vol] 26.5 mmol/L Normal 21.0-32.0 [facility] Comment on above: Performed By: #### L IPID, CMP, T4, TSH, FT3 #### [facility] [address] [address] [address] Mendel Herron Creatinine [Mass/Vol] 0.83 mg/dL Normal 0.55-1.02 [facility] Comment on above: Performed By: #### L IPID, CMP, T4, TSH, FT3 #### [facility] [address] [place] [address] Dr. Mendel Herron EGFR-AF LEBANESE >60 Normal >=60 [facility] Comment on above: Performed By: #### L IPID, CMP, T4, TSH, FT3 #### [facility] [address] [place] [address] Dr. Mendel Herron EGFR-NON AF LEBANESE >60 Normal >=60 [facility] Comment on above: Performed By: #### L IPID, CMP, T4, TSH, FT3 #### [facility] [address] [address] [address] Mendel Herron Globulin (S) [Mass/Vol] 4.4 g/dL Normal [facility] Comment on above: Performed By: #### L IPID, CMP, T4, TSH, FT3 #### [facility] [address] [place] [address] Dr. Mendel Herron Glucose [Mass/Vol] 97 mg/dL Normal 74-106 [facility] Comment on above: Performed By: #### L IPID, CMP, T4, TSH, FT3 #### [facility] [address] [place] [address] Dr. Mendel Herron Potassium [Moles/Vol] 4.2 mmol/L Normal 3.5-5.1 [facility] Comment on above: Performed By: #### L IPID, CMP, T4, TSH, FT3 #### [facility] [address] [address] [address] Mendel Herron Protein [Mass/Vol] 8.4 g/dL Critically high 6.4-8.2 [facility] Comment on above: Performed By: #### L IPID, CMP, T4, TSH, FT3 #### [facility] [address] [address] [address] Mendel Herron Sodium [Moles/Vol] 138 mmol/L Normal 136-145 [facility] Comment on above: Performed By: #### L IPID, CMP, T4, TSH, FT3 #### [facility] [address] [address] [address] Mendel Herron Urea nitrogen [Mass/Vol] 12.0 mg/dL Normal 7.0-18.0 [facility] Comment on above: Performed By: #### L IPID, CMP, T4, TSH, FT3 #### [facility] [address] [address] [address] Mendel Herron Urea nitrogen/Creatinine [Mass ratio] 14.5 mg/mg Normal [facility] Comment on above: Performed By: #### L IPID, CMP, T4, TSH, FT3 #### [facility] [address] [address] [address] Mendel Herron T4on 09-09-2022 T4 [Mass/Vol] 8.80 ug/dL Normal 4.80-13.90 [facility] Comment on above: Performed By: #### L IPID, CMP, T4, TSH, FT3 #### [facility] [address] [place] [address] Dr. Mendel Herron TSHon 09-09-2022 TSH 0.898 uIU/mL Normal 0.358-3.740 [facility] Comment on above: Performed By: #### L IPID, CMP, T4, TSH, FT3 #### [facility] [address] [place], [place] [address] Dr. Mendel Herron VITAMIN D 25 OHon 09-09-2022 VIT D 25-OH 24.0 ng/mL Normal [facility] Comment on above: Performed By: #### L IPID, CMP, T4, TSH, FT3 #### [facility] [address] [place], [place] [address] Dr. Mendel Herron VIT D RANGES SEE BELOW Normal [facility] Comment on above: Result Comment: <20 ng/mL Vit D deficient 20 - <30 ng/mL Vit D insufficient 30 - 100 ng/mL Vit D sufficient >100 ng/mL Potential Toxicity Performed By: #### L IPID, CMP, T4, TSH, FT3 #### [facility] [address] [place], [place] [address] Dr. Mnedel Herron Physician Referralon 023 Physician Referral [phone] [id number] [id number]: [id number] Normal [facility] NM HEPATOBILIARY SCAN W EFon [...] by: VIVI GARY Date: 2022-08-20 16:07 Normal [facility] US SINGLE QUAD RT UPPERon US SINGLE [...] JEAN LOPES Date: 2022-08-11 15:50 Normal [facility] CARDIAC SUBHA ADMITon 023 CK [Catalytic activity/Vol] 30 U/L Normal 26-192 [facility] Comment on above: Performed By: #### L IPID, CMP, T4, TSH, FT3 #### [facility] [address] [address] [address] Mendel Herron CK.MB [Mass/Vol] 1.02 ng/mL Normal <=3.60 [facility] Comment on above: Performed By: #### L IPID, CMP, T4, TSH, FT3 #### [facility] [address] [place], [place] [address] Dr. Mendel Herron HSTROP 32.8 pg/mL Normal 4.0-51.3 [facility] Comment on above: Result Comment: CUT- OFF POINTS HAVE BEEN ESTABLISHED BASED ON THE FOURTH UNIVERSAL DEFINITIONS OF MYOCARDIAL INFARCTION. THE UPPER REFERENCE LIMIT (URL) OF TROPONIN, DEFINED THE 99TH PERCENTILE OF cTnI DISTRIBUTION IN A REFERENCE POPULATION, HAS BEEN CONFIRMED THE DECISION THRESHOLD FOR OK DIAGNOSIS. Performed By: #### L IPID, CMP, T4, TSH, FT3 #### [facility] [address] [place] [address] Dr. Mendel Herron SONYA 23 ng/mL Normal 9-82 [facility] Comment on above: Performed By: #### L IPID, CMP, T4, TSH, FT3 #### [facility] [address] [place] [address] Dr. Mendel Herron CBC AUTO DIFFon 08-09-2022 BASO # 0.0 103/ul Normal 0.0-0.1 [facility] Comment on above: Performed By: #### L IPID, CMP, T4, TSH, FT3 #### [facility] [address] [place] [address] Dr. Mendel Herron Basophils/100 WBC (Bld) 0.3 % Normal 0.2-2.0 [facility] Comment on above: Performed By: #### L IPID, CMP, T4, TSH, FT3 #### [facility] [address] [place] [address] Dr. Mendel Herron EO # 0.0 103/ul Normal 0.0-0.7 [facility] Comment on above: Performed By: #### L IPID, CMP, T4, TSH, FT3 #### [facility] [address] [place] [address] Dr. Mendel Herron Eosinophils/100 WBC (Bld) 0.3 % Critically low 0.9-7.0 [facility] Comment on above: Performed By: #### L IPID, CMP, T4, TSH, FT3 #### [facility] [address] [place] [address] Dr. Mendel Herron Erythrocyte distribution width (RBC) [Ratio] 13.1 % Normal 11.0-15.0 [facility] Comment on above: Performed By: #### L IPID, CMP, T4, TSH, FT3 #### [facility] [address] [place] [address] Dr. Mendel Herron Hematocrit (Bld) [Volume fraction] 42.7 % Normal 36.0-48.0 [facility] Comment on above: Performed By: #### L IPID, CMP, T4, TSH, FT3 #### [facility] [address] [address] [address] Mendel Herron Hemoglobin (Bld) [Mass/Vol] 15.4 g/dL Normal 12.0-16.0 [facility] Comment on above: Performed By: #### L IPID, CMP, T4, TSH, FT3 #### [facility] [address] [place] [address] Dr. Mendel Herron IG # 0.05 10e3/ul Critically high 0.00-0.03 [facility] Comment on above: Performed By: #### L IPID, CMP, T4, TSH, FT3 #### [facility] [address] [place] [address] Dr. Mendel Herron IG % 0.4 % Normal 0.0-0.5 [facility] Comment on above: Performed By: #### L IPID, CMP, T4, TSH, FT3 #### [facility] [address] [place] [address] Dr. Mendel Herron LYMPH # 2.5 103/ul Normal 1.2-3.8 [facility] Comment on above: Performed By: #### L IPID, CMP, T4, TSH, FT3 #### [facility] [address] [place] [address] Dr. Mendel Herron Lymphocytes/100 WBC (Bld) 21.2 % Normal 20.5-60.0 [facility] Comment on above: Performed By: #### L IPID, CMP, T4, TSH, FT3 #### [facility] [address] [place] [address] Dr. Mendel Herron MANUAL DIFF REQ NO Normal [facility] Comment on above: Performed By: #### L IPID, CMP, T4, TSH, FT3 #### [facility] [address] [place] [address] Dr. Mendel Herron MCH (RBC) [Entitic mass] 31.7 pg Normal 26.7-34.0 [facility] Comment on above: Performed By: #### L IPID, CMP, T4, TSH, FT3 #### [facility] [address] [place] [address] Dr. Mendel Herron MCHC (RBC) [Mass/Vol] 36.1 g/dL Critically high 29.9-35.2 [facility] Comment on above: Performed By: #### L IPID, CMP, T4, TSH, FT3 #### [facility] [address] [place] [address] Dr. Mendel Herron MCV (RBC) [Entitic vol] 87.9 fL Normal 81.0-99.0 [facility] Comment on above: Performed By: #### L IPID, CMP, T4, TSH, FT3 #### [facility] [address] [place] [address] Dr. Mendel Herron MONO # 0.7 103/ul Normal 0.3-0.8 [facility] Comment on above: Performed By: #### L IPID, CMP, T4, TSH, FT3 #### [facility] [address] [place] [address] Dr. Mendel Herron Monocytes/100 WBC (Bld) 6.3 % Normal 1.7-12.0 [facility] Comment on above: Performed By: #### L IPID, CMP, T4, TSH, FT3 #### [facility] [address] [place] [address] Dr. Mendel Herron NEUT # 8.4 103/ul Critically high 1.4-6.5 [facility] Comment on above: Performed By: #### L IPID, CMP, T4, TSH, FT3 #### [facility] [address] [place] [address] Dr. Mendel Herron Neutrophils/100 WBC (Bld) 71.5 % Normal 43.0-75.0 [facility] Comment on above: Performed By: #### L IPID, CMP, T4, TSH, FT3 #### [facility] [address] [place] [address] Dr. Mendel Herron Platelet mean volume (Bld) [Entitic vol] 9.8 fL Normal 9.5-13.5 [facility] Comment on above: Performed By: #### L IPID, CMP, T4, TSH, FT3 #### [facility] [address] [address] [address] Mendel Herron PLT 374 103/ul Normal 150-450 [facility] Comment on above: Performed By: #### L IPID, CMP, T4, TSH, FT3 #### [facility] [address] [address] [address] Mendel Herron RBC 4.86 106/ul Normal 4.20-5.40 [facility] Comment on above: Performed By: #### L IPID, CMP, T4, TSH, FT3 #### [facility] [address] [place] [address] Dr. Mendel Herron WBC 11.7 103/ul Critically high 4.0-11.0 [facility] Comment on above: Performed By: #### L IPID, CMP, T4, TSH, FT3 #### [facility] [address] [place] [address] HEAD WO CONon [...] by: HELLEN VELAZQUEZ Date: 2022-08-09 15:23 Normal [facility] Covid-19 PCR (CVDTB)on 07-20 SARS-CoV-2 (COVID-19) RNA DEIRDRE+probe Ql (Unsp spec) Not detected Normal NOT DETECTED [facility] Comment on above: Result Comment: When diagnostic [...] for this test is supported by the [employer] of [employer] and Human Service's declaration that [...] L IPID, CMP, T4, TSH, FT3 #### [facility] [address] [place] [address] Dr. Mendel Herron ER URINE PROFILEon 3 Bilirubin Ql (U) Negative Normal NEGATIVE [facility] Comment on above: Performed By: #### L IPID, CMP, T4, TSH, FT3 #### [facility] [address] [place] [address] Dr. Mendel Herron Clarity (U) CLEAR Normal CLEAR [facility] Comment on above: Performed By: #### L IPID, CMP, T4, TSH, FT3 #### [facility] [address] [place] [address] Dr. Mendel Herron Color (U) LT. YELLOW Normal YELLOW [facility] Comment on above: Performed By: #### L IPID, CMP, T4, TSH, FT3 #### [facility] [address] [place] [address] Dr. Mendel Herron ERUAHD A micrscopic examina tion will be performed if indicated. Normal [facility] Comment on above: Performed By: #### L IPID, CMP, T4, TSH, FT3 #### [facility] [address] [address] [address] Mendel Herron Glucose Ql (U) Negative Normal NEGATIVE [facility] Comment on above: Performed By: #### L IPID, CMP, T4, TSH, FT3 #### [facility] [address] [address] [address] Mendel Herron Hemoglobin Ql (U) TRACE-INTACT Abnormal NEGATIVE [facility] Comment on above: Performed By: #### L IPID, CMP, T4, TSH, FT3 #### [facility] [address] [address] [address] Mendel Herron Ketones Ql (U) Negative Normal NEGATIVE [facility] Comment on above: Performed By: #### L IPID, CMP, T4, TSH, FT3 #### [facility] [address] [address] [address] Mendel Herron LEUKOCYTES Negative Normal NEGATIVE [facility] Comment on above: Performed By: #### L IPID, CMP, T4, TSH, FT3 #### [facility] [address] [address] [address] Mendel Herron Nitrite Ql (U) Negative Normal NEGATIVE [facility] Comment on above: Performed By: #### L IPID, CMP, T4, TSH, FT3 #### [facility] [address] [address] [address] Mendel Herron pH (U) 5.0 [pH] Normal 5-9 [facility] Comment on above: Performed By: #### L IPID, CMP, T4, TSH, FT3 #### [facility] [address] [address] [address] Mendel Herron SPEC GRAVITY 1.015 Normal 1.005-<=1.02 5 [facility] Comment on above: Performed By: #### L IPID, CMP, T4, TSH, FT3 #### [facility] [address] [address] [address] Mendel Herron UA PROTEIN Negative Normal NEGATIVE/ TRACE [facility] Comment on above: Performed By: #### L IPID, CMP, T4, TSH, FT3 #### [facility] [address] [address] [address] Mendel Herron UR MICRO IND INDICATED Normal [facility] Comment on above: Performed By: #### L IPID, CMP, T4, TSH, FT3 #### [facility] [address] [place] [address] Dr. Mendel Herron Urobilinogen Qn (U) 0.2 {James'U}/dL Normal 0.2 - 1. 0 [facility] Comment on above: Performed By: #### L IPID, CMP, T4, TSH, FT3 #### [facility] [address] [place] [address] Dr. Mendel Herron LIPASEon 08-09-2022 Lipase [Catalytic activity/Vol] 114.0 U/L Normal 73.0-393.0 [facility] Comment on above: Performed By: #### L IPA, BMP, CMADM #### [facility] [address] [place] [address] Dr. Mendel Herron PROF CHEM 8 (BAS METB)on Anion gap [Moles/Vol] 18.9 mmol/L Normal [facility] Comment on above: Performed By: #### L IPA, BMP, CMADM #### [facility] [address] [place] [address] Dr. Mendel Herron Calcium [Mass/Vol] 9.4 mg/dL Normal 8.5-10.1 [facility] Comment on above: Performed By: #### L IPA, BMP, CMADM #### [facility] [address] [place] [address] Dr. Mendel Herron Chloride [Moles/Vol] 97 mmol/L Critically low 98-107 [facility] Comment on above: Performed By: #### L IPA, BMP, CMADM #### [facility] [address] [place] [address] Dr. Mendel Herron CO2 [Moles/Vol] 26.0 mmol/L Normal 21.0-32.0 [facility] Comment on above: Performed By: #### L IPA, BMP, CMADM #### [facility] [address] [address] [address] Mendel Herron Creatinine [Mass/Vol] 0.85 mg/dL Normal 0.55-1.02 [facility] Comment on above: Performed By: #### L IPA, BMP, CMADM #### [facility] [address] [address] [address] Mendel Herron EGFR-AF LEBANESE >60 Normal >=60 [facility] Comment on above: Performed By: #### L IPA, BMP, CMADM #### [facility] [address] [address] [address] Mendel Herron EGFR-NON AF LEBANESE >60 Normal >=60 [facility] Comment on above: Performed By: #### L IPA, BMP, CMADM #### [facility] [address] [address] [address] Mendel Herron Glucose [Mass/Vol] 120 mg/dL Critically high 74-106 [facility] Comment on above: Performed By: #### L IPA, BMP, CMADM #### [facility] [address] [address] [address] Mendel Herron Potassium [Moles/Vol] 3.9 mmol/L Normal 3.5-5.1 [facility] Comment on above: Performed By: #### L IPA, BMP, CMADM #### [facility] [address] [address] [address] Mendel Herron Sodium [Moles/Vol] 138 mmol/L Normal 136-145 [facility] Comment on above: Performed By: #### L IPA, BMP, CMADM #### [facility] [address] [address] [address] Mendel Herron Urea nitrogen [Mass/Vol] 17.0 mg/dL Normal 7.0-18.0 [facility] Comment on above: Performed By: #### L IPA, BMP, CMADM #### [facility] [address] [address] [address] Mendel Herron Urea nitrogen/Creatinine [Mass ratio] 20.0 mg/mg Normal [facility] Comment on above: Performed By: #### L IPA, BMP, CMADM #### [facility] [address] [place] [address] Dr. Mendel Herron TROPONIN, HIGH SENSITIVITYon 08-09-2022 HSTROP 32.5 pg/mL Normal 4.0-51.3 [facility] Comment on above: Result Comment: CUT- OFF POINTS HAVE BEEN ESTABLISHED BASED ON THE FOURTH UNIVERSAL DEFINITIONS OF MYOCARDIAL INFARCTION. THE UPPER REFERENCE LIMIT (URL) OF TROPONIN, DEFINED THE 99TH PERCENTILE OF cTnI DISTRIBUTION IN A REFERENCE POPULATION, HAS BEEN CONFIRMED THE DECISION THRESHOLD FOR [place] DIAGNOSIS. Performed By: #### L IPID, CMP, T4, TSH, FT3 #### [facility] [address] [place] [address] Dr. Mendel Herron URINE MICROSCOPIC ONLYon BACTERIA NONE SEEN Normal NONE SEEN [facility] Comment on above: Performed By: #### L IPID, CMP, T4, TSH, FT3 #### [facility] [address] [place] [address] Dr. Mendel Herron Bacteria identified Cx Nom (U) NOT INDICATED Normal [facility] Comment on above: Performed By: #### L IPID, CMP, T4, TSH, FT3 #### [facility] [address] [place] [address] Dr. Mendel Herron CAST NONE SEEN Normal NONE SEEN [facility] Comment on above: Performed By: #### L IPID, CMP, T4, TSH, FT3 #### [facility] [address] [place] [address] Dr. Mendel Herron Crystals LM Nom (Urine sed) NONE SEEN Normal NONE SEEN [facility] Comment on above: Performed By: #### L IPID, CMP, T4, TSH, FT3 #### [facility] [address] [place] [address] Dr. Mendel Herron Epithelial cells LM Ql (Urine sed) NONE SEEN Normal NONE SEEN /RARE [facility] Comment on above: Performed By: #### L IPID, CMP, T4, TSH, FT3 #### [facility] [address] [address] [address] Mendel Herron MUCOUS NONE SEEN Normal NONE SEEN [facility] Comment on above: Performed By: #### L IPID, CMP, T4, TSH, FT3 #### [facility] [address] [address] [address] Mendel Herron RBC 0-2 Normal 0-2 [facility] Comment on above: Performed By: #### L IPID, CMP, T4, TSH, FT3 #### [facility] [address] [address] [address] Mendel Herron WBC NONE SEEN Normal NONE SEEN [facility] Comment on above: Performed By: #### L IPID, CMP, T4, TSH, FT3 #### [facility] [address] [address] [address] Mendel Herron XR CHEST 1 Von [...] MARY DIETZ Date: 2022-08-09 15:18 Normal [facility] H PYLORI ANTIBODY IGGon 07-20 H. PYLORI IGG ABS 0.11 Index Value Normal 0.00-0.[address] [facility] Comment on above: Result Comment: Nega tive <0.80 Equivocal 0.80 - 0.89 Positive >0.89 Performed By: #### L IPID, CMP, T4, TSH, FT3 #### [facility] [address] [address] [address] Mendel Herron AMYLASEon 08-06-2022 Amylase [Catalytic activity/Vol] 57 U/L Normal 25-115 [facility] Comment on above: Performed By: #### L IPID, CMP, T4, TSH, FT3 #### [facility] [address] [address] [address] Mendel Herron CBC AUTO DIFFon 08-06-2022 BASO # 0.1 103/ul Normal 0.0-0.1 [facility] Comment on above: Performed By: #### L IPID, CMP, T4, TSH, FT3 #### [facility] [address] [place] [address] Dr. Mendel Herron Basophils/100 WBC (Bld) 0.7 % Normal 0.2-2.0 [facility] Comment on above: Performed By: #### L IPID, CMP, T4, TSH, FT3 #### [facility] [address] [place] [address] Dr. Mendel Herron EO # 0.1 103/ul Normal 0.0-0.7 [facility] Comment on above: Performed By: #### L IPID, CMP, T4, TSH, FT3 #### [facility] [address] [place] [address] Dr. Mendel Herron Eosinophils/100 WBC (Bld) 0.5 % Critically low 0.9-7.0 [facility] Comment on above: Performed By: #### L IPID, CMP, T4, TSH, FT3 #### [facility] [address] [place] [address] Dr. Mendel Herron Erythrocyte distribution width (RBC) [Ratio] 13.7 % Normal 11.0-15.0 [facility] Comment on above: Performed By: #### L IPID, CMP, T4, TSH, FT3 #### [facility] [address] [place] [address] Dr. Mendel Herron Hematocrit (Bld) [Volume fraction] 46.2 % Normal 36.0-48.0 [facility] Comment on above: Performed By: #### L IPID, CMP, T4, TSH, FT3 #### [facility] [address] [place] [address] Dr. Mendel Herron Hemoglobin (Bld) [Mass/Vol] 15.1 g/dL Normal 12.0-16.0 [facility] Comment on above: Performed By: #### L IPID, CMP, T4, TSH, FT3 #### [facility] [address] [address] [address] Mendel Herron IG # 0.06 10e3/ul Critically high 0.00-0.03 [facility] Comment on above: Performed By: #### L IPID, CMP, T4, TSH, FT3 #### [facility] [address] [place] [address] Dr. Mendel Herron IG % 0.6 % Critically high 0.0-0.5 [facility] Comment on above: Performed By: #### L IPID, CMP, T4, TSH, FT3 #### [facility] [address] [place] [address] Dr. Mendel Herron LYMPH # 2.5 103/ul Normal 1.2-3.8 [facility] Comment on above: Performed By: #### L IPID, CMP, T4, TSH, FT3 #### [facility] [address] [place] [address] Dr. Mendel Herron Lymphocytes/100 WBC (Bld) 23.4 % Normal 20.5-60.0 [facility] Comment on above: Performed By: #### L IPID, CMP, T4, TSH, FT3 #### [facility] [address] [place] [address] Dr. Mendel Herron MANUAL DIFF REQ NO Normal [facility] Comment on above: Performed By: #### L IPID, CMP, T4, TSH, FT3 #### [facility] [address] [place] [address] Dr. Mendel Herron MCH (RBC) [Entitic mass] 31.4 pg Normal 26.7-34.0 [facility] Comment on above: Performed By: #### L IPID, CMP, T4, TSH, FT3 #### [facility] [address] [place] [address] Dr. Mendel Herron MCHC (RBC) [Mass/Vol] 32.7 g/dL Normal 29.9-35.2 [facility] Comment on above: Performed By: #### L IPID, CMP, T4, TSH, FT3 #### [facility] [address] [place] [address] Dr. Mendel Herron MCV (RBC) [Entitic vol] 96.0 fL Normal 81.0-99.0 [facility] Comment on above: Performed By: #### L IPID, CMP, T4, TSH, FT3 #### [facility] [address] [place] [address] Dr. Mendel Herron MONO # 0.6 103/ul Normal 0.3-0.8 [facility] Comment on above: Performed By: #### L IPID, CMP, T4, TSH, FT3 #### [facility] [address] [place] [address] Dr. Mendel Herron Monocytes/100 WBC (Bld) 6.0 % Normal 1.7-12.0 [facility] Comment on above: Performed By: #### L IPID, CMP, T4, TSH, FT3 #### [facility] [address] [place] [address] Dr. Mendel Herron NEUT # 7.4 103/ul Critically high 1.4-6.5 [facility] Comment on above: Performed By: #### L IPID, CMP, T4, TSH, FT3 #### [facility] [address] [place] [address] Dr. Mendel Herron Neutrophils/100 WBC (Bld) 68.8 % Normal 43.0-75.0 [facility] Comment on above: Performed By: #### L IPID, CMP, T4, TSH, FT3 #### [facility] [address] [place] [address] Dr. Mendel Herron Platelet mean volume (Bld) [Entitic vol] 9.7 fL Normal 9.5-13.5 [facility] Comment on above: Performed By: #### L IPID, CMP, T4, TSH, FT3 #### [facility] [address] [place] [address] Dr. Mendel Herron PLT 331 103/ul Normal 150-450 [facility] Comment on above: Performed By: #### L IPID, CMP, T4, TSH, FT3 #### [facility] [address] [place] [address] Dr. Mendel Herron RBC 4.81 106/ul Normal 4.20-5.40 [facility] Comment on above: Performed By: #### L IPID, CMP, T4, TSH, FT3 #### [facility] [address] [address] [address] Mendel Herron WBC 10.7 103/ul Normal 4.0-11.0 [facility] Comment on above: Performed By: #### L IPID, CMP, T4, TSH, FT3 #### [facility] [address] [place] [address] HEAD WO CONon [...] JEAN LOPES Date: 2022-08-06 08:39 Normal [facility] LIPASEon 08-06-2022 Lipase [Catalytic activity/Vol] 125.0 U/L Normal 73.0-393.0 [facility] Comment on above: Performed By: #### L IPID, CMP, T4, TSH, FT3 #### [facility] [address] [place] [address] Dr. Mendel Herron PROF 14(COMP METB)on 023 Albumin [Mass/Vol] 3.7 g/dL Normal 3.4-5.0 [facility] Comment on above: Performed By: #### L IPID, CMP, T4, TSH, FT3 #### [facility] [address] [place] [address] Dr. Mendel Herron Albumin/Globulin [Mass ratio] 0.9 {ratio} Normal [facility] Comment on above: Performed By: #### L IPID, CMP, T4, TSH, FT3 #### [facility] [address] [place] [address] Dr. Mendel Herron ALP [Catalytic activity/Vol] 110 U/L Normal 46-116 [facility] Comment on above: Performed By: #### L IPID, CMP, T4, TSH, FT3 #### [facility] [address] [place] [address] Dr. Mendel Herron ALT [Catalytic activity/Vol] 25 U/L Normal 14-59 [facility] Comment on above: Performed By: #### L IPID, CMP, T4, TSH, FT3 #### [facility] [address] [place] [address] Dr. Mendel Herron Anion gap [Moles/Vol] 14.0 mmol/L Normal [facility] Comment on above: Performed By: #### L IPID, CMP, T4, TSH, FT3 #### [facility] [address] [place] [address] Dr. Mendel Herron AST [Catalytic activity/Vol] 16 U/L Normal 15-37 [facility] Comment on above: Performed By: #### L IPID, CMP, T4, TSH, FT3 #### [facility] [address] [place] [address] Dr. Mendel Herron Bilirubin [Mass/Vol] 0.6 mg/dL Normal 0.2-1.0 [facility] Comment on above: Performed By: #### L IPID, CMP, T4, TSH, FT3 #### [facility] [address] [place] [address] Dr. Mendel Herron Calcium [Mass/Vol] 9.3 mg/dL Normal 8.5-10.1 [facility] Comment on above: Performed By: #### L IPID, CMP, T4, TSH, FT3 #### [facility] [address] [place] [address] Dr. Mendel Herron Chloride [Moles/Vol] 103 mmol/L Normal 98-107 [facility] Comment on above: Performed By: #### L IPID, CMP, T4, TSH, FT3 #### [facility] [address] [address] [address] Mendel Herron CO2 [Moles/Vol] 27.3 mmol/L Normal 21.0-32.0 [facility] Comment on above: Performed By: #### L IPID, CMP, T4, TSH, FT3 #### [facility] [address] [address] [address] Mendel Herron Creatinine [Mass/Vol] 0.71 mg/dL Normal 0.55-1.02 [facility] Comment on above: Performed By: #### L IPID, CMP, T4, TSH, FT3 #### [facility] [address] [place] [address] Dr. Mendel Herron EGFR-AF LEBANESE >60 Normal >=60 [facility] Comment on above: Performed By: #### L IPID, CMP, T4, TSH, FT3 #### [facility] [address] [place] [address] Dr. Mendel Herron EGFR-NON AF LEBANESE >60 Normal >=60 [facility] Comment on above: Performed By: #### L IPID, CMP, T4, TSH, FT3 #### [facility] [address] [place] [address] Dr. Mendel Herron Globulin (S) [Mass/Vol] 4.3 g/dL Normal [facility] Comment on above: Performed By: #### L IPID, CMP, T4, TSH, FT3 #### [facility] [address] [address] [address] Mendel Herron Glucose [Mass/Vol] 102 mg/dL Normal 74-106 [facility] Comment on above: Performed By: #### L IPID, CMP, T4, TSH, FT3 #### [facility] [address] [place] [address] Dr. Mendel Herron Potassium [Moles/Vol] 4.3 mmol/L Normal 3.5-5.1 [facility] Comment on above: Performed By: #### L IPID, CMP, T4, TSH, FT3 #### [facility] [address] [address] [address] Mendel Herron Protein [Mass/Vol] 8.0 g/dL Normal 6.4-8.2 [facility] Comment on above: Performed By: #### L IPID, CMP, T4, TSH, FT3 #### [facility] [address] [place] [address] Dr. Mendel Herron Sodium [Moles/Vol] 140 mmol/L Normal 136-145 [facility] Comment on above: Performed By: #### L IPID, CMP, T4, TSH, FT3 #### [facility] [address] [place] [address] Dr. Mendel Herron Urea nitrogen [Mass/Vol] 19.0 mg/dL Critically high 7.0-18.0 [facility] Comment on above: Performed By: #### L IPID, CMP, T4, TSH, FT3 #### [facility] [address] [place] [address] Dr. Mendel Herron Urea nitrogen/Creatinine [Mass ratio] 26.8 mg/mg Normal [facility] Comment on above: Performed By: #### L IPID, CMP, T4, TSH, FT3 #### [facility] [address] [place] [address] Dr. Mendel Herron Covid-19 PCR ([facility])on 06-19 SARS-CoV-2 (COVID-19) RNA DEIRDRE+probe Ql (Unsp spec) Not detected Normal NOT DETECTED [facility] Comment on above: Result Comment: This test is not yet approved or cleared by the [place] FDA. When there are no FDA-approved or cleared tests available, and other criteria are met, FDA can make tests available under an emergency access mechanism called an Emergency Use Authorization (EUA). The EUA for this test is supported by the Cuff [employer] Overlock of Health and Human Service's (HHS's) declaration [...] SARS-CoV-2. Performed By: #### C VDTBH #### [facility] [address] [place] [address] Dr. Mendel Herron INFLUENZA A AND B AGon 07-[facility] SEE BELOW Normal [facility] Comment on above: Result Comment: Nega tive for Flu A protein angiten. Infection due to Flu A cannot be ruled out. Flu A angiten in the sample may be below the detection limit of the test. Performed By: #### L IPID, CMP, T4, TSH, FT3 #### [facility] [address] [place] [address] Dr. Mendel Herron INFLUBNEG SEE BELOW Normal [facility] Comment on above: Result Comment: Nega tive for Flu B protein antigen. Infection due to Flu B cannot be ruled out. Flu B antigen in the sample may be below the detection limit of the test. Performed By: #### L IPID, CMP, T4, TSH, FT3 #### [facility] [address] [place] [address] Dr. Mendel Herron INFLUENZA A AG Negative Normal NEGATIVE SEE COMMENT [facility] Comment on above: Performed By: #### L IPID, CMP, T4, TSH, FT3 #### [facility] [address] [place] [address] Dr. Mendel Herron INFLUENZA B AG Negative Normal NEGATIVE SEE COMMENT [facility] Comment on above: Performed By: #### L IPID, CMP, T4, TSH, FT3 #### [facility] [address] [place] [address] Dr. Mendel Herron Covid-19 PCR ([facility])on 04-19 SARS-CoV-2 (COVID-19) RNA DEIRDRE+probe Ql (Unsp spec) Not detected Normal NOT DETECTED [facility] Comment on above: Result Comment: This test is not yet approved or cleared by the [place] FDA. When there are no FDA-approved or cleared tests available, and other criteria are met, FDA can make tests available under an emergency access mechanism called an Emergency Use Authorization (EUA). The EUA for this test is supported by the Cuff Set[employer] Overlock of Health and Human Service's (HHS's) declaration [...] L IPID, CMP, T4, TSH, FT3 #### [facility] [address] [place] [address] Dr. Mendel Herron INFLUENZA A AND B AGon 05-11 [facility] SEE BELOW Normal [facility] Comment on above: Result Comment: Nega tive for Flu A protein angiten. Infection due to Flu A cannot be ruled out. Flu A angiten in the sample may be below the detection limit of the test. Performed By: #### L IPID, CMP, T4, TSH, FT3 #### [facility] [address] [place] [address] Dr. Mendel Herron INFLUBNEG SEE BELOW Normal [facility] Comment on above: Result Comment: Nega tive for Flu B protein antigen. Infection due to Flu B cannot be ruled out. Flu B antigen in the sample may be below the detection limit of the test. Performed By: #### L IPID, CMP, T4, TSH, FT3 #### [facility] [address] [place] [address] Dr. Mendel Herron INFLUENZA A AG Negative Normal NEGATIVE SEE COMMENT [facility] Comment on above: Performed By: #### L IPID, CMP, T4, TSH, FT3 #### [facility] [address] [place], [place] [address] Dr. Mendel Herron INFLUENZA B AG Negative Normal NEGATIVE SEE COMMENT [facility] Comment on above: Performed By: #### L IPID, CMP, T4, TSH, FT3 #### [facility] [address] [place], [place] [address] Dr. Mendel Herron INTERNAL CONTROLS Within Normal Limits Normal Wi thin Normal Limits [facility] Comment on above: Performed By: #### L IPID, CMP, T4, TSH, FT3 #### [facility] [address] [place], [place] [address] Dr. Mendel Herron Comprehensive Metabolic Empo n 12-23-2021 Albumin [Mass/Vol] 3.7 g/dL Normal 3.2-5.5 [facility] Comment on above: Performed By: #### E BS CMP, EBS LIPID #### [facility] [address] [place] [address] [place] Albumin/Globulin [Mass ratio] 1.0 {ratio} Normal [facility] Comment on above: Performed By: #### E BS CMP, EBS LIPID #### [facility] [address] [id number] [place] ALP [Catalytic activity/Vol] 159 U/L High 32-92 [facility] Comment on above: Performed By: #### E BS CMP, EBS LIPID #### [facility] [address] [place] [address] [place] ALT [Catalytic activity/Vol] 28 U/L Normal 10-60 [facility] Comment on above: Performed By: #### E BS CMP, EBS LIPID #### [facility] [address] [place] [address] [place] AST [Catalytic activity/Vol] 27 U/L Normal 10-42 [facility] Comment on above: Performed By: #### E BS CMP, EBS LIPID #### [facility] [address] [place] [address] [place] Bilirubin [Mass/Vol] 1.2 mg/dL Normal 0.3-1.2 [facility] Comment on above: Performed By: #### E BS CMP, EBS LIPID #### [facility] [address] Calcium [Mass/Vol] 9.2 mg/dL Normal 8.2-10.2 [facility] Comment on above: Performed By: #### E BS CMP, EBS LIPID #### [facility] [address] [place] [address] [place] Chloride [Moles/Vol] 100 mmol/L Normal 95-114 [facility] Comment on above: Performed By: #### E BS CMP, EBS LIPID #### [facility] [address] [place] [address] CO2 [Moles/Vol] 20.6 mmol/L Low 22.0-30.0 [facility] Comment on above: Performed By: #### E BS CMP, EBS LIPID #### [address] Creatinine [Mass/Vol] 0.57 mg/dL Normal 0.44-1.03 [facility] Comment on above: Performed By: #### E BS CMP, EBS LIPID #### [address] Estimated GFR ( Ni > 60 Normal [facility] Comment on above: Result Comment: GFR estimated reference range: According to KDOQI guidelines, <60 ml/min/1.73m2 is sufficient to diagnose a patient with chronic kidney disease. Performed By: #### E BS CMP, EBS LIPID #### [facility] [address] [place] [address] [place] Estimated GFR (Non- Am > 60 Normal [facility] Comment on above: Performed By: #### E BS CMP, EBS LIPID #### [facility] [address] [place] [address] [place] Globulin (S) [Mass/Vol] 3.7 g/dL Normal [facility] Comment on above: Performed By: #### E BS CMP, EBS LIPID #### [facility] [address] [place] [address] [place] Glucose [Mass/Vol] 100 mg/dL Normal 70-100 [facility] Comment on above: Performed By: #### E BS CMP, EBS LIPID #### [facility] [address] [place] [address] [facility] Potassium [Moles/Vol] 3.9 mmol/L Normal 3.5-5.1 [facility] Comment on above: Performed By: #### E BS CMP, EBS LIPID #### [facility] [address] [place] [address] [facility] Protein [Mass/Vol] 7.4 g/dL Normal 6.1-7.9 [facility] Comment on above: Performed By: #### E BS CMP, EBS LIPID #### [facility] [address] [place] [id number] [facility] Sodium [Moles/Vol] 135 mmol/L Low 136-146 [facility] Comment on above: Performed By: #### E BS CMP, EBS LIPID #### [facility] [address] [id number] [facility] Urea nitrogen [Mass/Vol] 12 mg/dL Normal 9-23 [facility] Comment on above: Performed By: #### E BS CMP, EBS LIPID #### [facility] [address] [id number] [facility] Lipid Profileon 12-23-2021 Cholesterol [Mass/Vol] 213 mg/dL High 140-200 [facility] Comment on above: Result Comment: Chol less than 200 mg/dl low risk Chol 201-239 mg/dl borderline risk Chol 240 mg/dl and greater high risk Performed By: #### E BS CMP, EBS LIPID #### [facility] [address] [place] [id number] [facility] Cholesterol in HDL [Mass/Vol] 36 mg/dL Normal 35-85 [facility] Comment on above: Result Comment: HDL CHOL ATP-III CLASSIFICATION Cardiovascular Risk HDL > or equal to 60 mg/dL LOW HDL < 40 mg/dL HIGH Performed By: #### E BS CMP, EBS LIPID #### [facility] [address] [id number] [facility] Cholesterol.total/C holesterol in HDL [Mass ratio] 5.9 {ratio} Normal <5.0 [facility] Comment on above: Result Comment: PERF ORMED BY: [place] [address] PATHOLOGIST SHIRT PRESSER MARIBEL AGUILLON M.D. Performed By: #### E BS CMP, EBS LIPID #### [address] LDL Cholesterol,Calcula lizbet 151 mg/dL High 0-100 [facility] Comment on above: Result Comment: LDL ATP III CLASSIFICATION LDL less than 100 mg/dL Optimal LDL 100-129 mg/dL Near or above optimal LDL 130-159 mg/dL Borderline high LDL 160-189 mg/dL High LDL greater than 189 mg/dL Very high Performed By: #### E BS CMP, EBS LIPID #### [address] Triglyceride w/Reflex 129 mg/dL Normal 35-149 [facility] Comment on above: Result Comment: TRIG ATP III CLASSIFICATION TRIG less than 150 mg/dL Normal TRIG 150-199 mg/dL Borderline high TRIG 200-500 mg/dL High TRIG greater than 500 mg/dL Very high Standard traceable to the Center for Disease Conrtrol and Prevention (CDC) test method. Performed By: #### E BS CMP, EBS LIPID #### [facility] [address] [place] [address] VLDL CHOLESTEROL 25 mg/dL Normal [facility] Comment on above: Performed By: #### E BS CMP, EBS LIPID #### [address] Covid-19 PCR ([facility])on 11-16 SARS-CoV-2 (COVID-19) RNA DEIRDRE+probe Ql (Unsp spec) Detected Critically abnormal NOT DETECTED [facility] Comment on above: Result Comment: This test is not yet approved or cleared by the [place] FDA. When there are no FDA-approved or cleared tests available, and other criteria are met, FDA can make tests available under an emergency access mechanism called an Emergency Use Authorization (EUA). The EUA for this test is supported by the Cuff Setter Overlock of Health and Human Service's declaration that [...] used). Performed By: #### C VDTB #### [facility] [address] [place] [address] Dr. Mendel Herron INFLUENZA A AND B [facility] 12-02 [facility] SEE BELOW Normal [facility] Comment on above: Result Comment: Nega tive for Flu A protein angiten. Infection due to Flu A cannot be ruled out. Flu A angiten in the sample may be below the detection limit of the test. Performed By: #### L IPID, CMP, T4, TSH, FT3 #### [facility] [address] [place] [address] Dr. Mendel Herron [facility] SEE BELOW Normal [facility] Comment on above: Result Comment: Nega tive for Flu B protein antigen. Infection due to Flu B cannot be ruled out. Flu B antigen in the sample may be below the detection limit of the test. Performed By: #### L IPID, CMP, T4, TSH, FT3 #### [facility] [address] [place] [address] Dr. Mendel Herron INFLUENZA A AG Negative Normal NEGATIVE SEE COMMENT [facility] Comment on above: Performed By: #### L IPID, CMP, T4, TSH, FT3 #### [facility] [address] [place] [address] Dr. Mendel Herron INFLUENZA B AG Negative Normal NEGATIVE SEE COMMENT [facility] Comment on above: Performed By: #### L IPID, CMP, T4, TSH, FT3 #### [facility] [address] [place] [address] Dr. Mendel Herron INTERNAL CONTROLS Within Normal Limits Normal Wi thin Normal Limits [facility] Comment on above: Performed By: #### L IPID, CMP, T4, TSH, FT3 #### [facility] [address] [place] [address] Dr. Mendel Herron Cardiovascular Lab Reporton 08-18-2021 Cardiovascular Lab Report [facility] Patient Name: Antonio [facility] S MR #: [id number] Department of Physician: Curtis Martinez MD Medicine Service Date: 08/18/2021 Division of Birthdate: 1970 Cardiology Room #: [facility] [address] [place] [id number] Cardiovascular Laboratory Report ATRIAL FLUTTER ABLATION AND [...] ab (more content not included)... Normal [facility] BILL Antinuclear Antibodieson 04-23-2021 Antinuclear Abs, IFA Negative Normal . [facility] Comment on above: Result Comment: Nega tive <1:80 Borderline 1:80 Positive >1:80 ICAP nomenclature: AC-0 For more information about Hep-2 cell patterns use ANApatterns.org, the official website for the International Consensus on Antinuclear Antibody (BILL) Patterns (ICAP). Performed at: [address] [id number] Form Builder Helper: Ger Yen PhD, Phone: [phone] PERFORMED BY: [place] [address] PATHOLOGIST SHIRT PRESSER MARIBEL AGUILLON M.D. Performed By: #### E SR, CRP, CBC, CREAT #### [address] #### BILL #### [facility] , C-Reactive Proteinon 021 C-Reactive Protein 0.7 mg/dL Normal 0.0-1.0 [facility] Comment on above: Result Comment: PERF ORMED BY: [place] [id number] PATHOLOGIST SHIRT PRESSER MARIBEL AGUILLON M.D. Performed By: #### E SR, CRP, CBC, CREAT #### [place] [address] [place] #### BILL #### [facility] , Complement C3on 04-23-2021 Complement C3 170 mg/dL High 82-167 [facility] Comment on above: Result Comment: Perf ormed at: [address] [id number] Form Builder Helper: Ger Yen PhD, Phone: [phone] Performed By: #### A DDONUAPLUS #### [place] [address] [place] #### CH50, C3, C4 #### [facility] , Complement C4on 04-23-2021 Complement C4 14 mg/dL Normal 12-38 [facility] Comment on above: Performed By: #### A DDONUAPLUS #### [address] #### CH50, C3, C4 #### [facility] , Complement Total (CH50)on Complement Total (CH50) >60 Normal >41 [facility] Comment on above: Result Comment: Age [...] determine out of range values. Performed at: [facility] [id number] Form Builder Helper: Ger Yen PhD, Phone: [phone] PERFORMED BY: [place] [address] PATHOLOGIST SHIRT PRESSER MARIBEL AGUILLON M.D. Performed By: #### E BS CMP, EBS LIPID #### [address] Complete Blood Count Auto Di ffon 04-23-2021 Basophils (Bld) [#/Vol] 0.1 10*3/uL Normal 0.0-0.2 [facility] Comment on above: Performed By: #### E SR, CRP, CBC, CREAT #### [address] #### BILL #### [facility] , Basophils/100 WBC (Bld) 0.7 % Normal . [facility] Comment on above: Performed By: #### E SR, CRP, CBC, CREAT #### [address] [place] [address] [place] #### BILL #### [facility] , Eosinophils (Bld) [#/Vol] 0.1 10*3/uL Normal 0.0-0.45 [facility] Comment on above: Performed By: #### E SR, CRP, CBC, CREAT #### [address] #### BILL #### [facility] , Eosinophils/100 WBC (Bld) 0.5 % Normal . [facility] Comment on above: Performed By: #### E SR, CRP, CBC, CREAT #### [address] #### BILL #### [facility] , Erythrocyte distribution width (RBC) [Ratio] 18.0 % High 11.9-15.3 [facility] Comment on above: Performed By: #### E SR, CRP, CBC, CREAT #### [address] #### BILL #### [facility] , Hematocrit (Bld) [Volume fraction] 31.6 % Low 34.0-46.4 [facility] Comment on above: Performed By: #### E SR, CRP, CBC, CREAT #### [place] [address] [place] #### BILL #### [facility] , Hemoglobin (Bld) [Mass/Vol] 9.8 g/dL Low 11.8-15.4 [facility] Comment on above: Performed By: #### E SR, CRP, CBC, CREAT #### [place] [address] [place] #### BILL #### [facility] , Lymphocytes (Bld) [#/Vol] 1.7 10*3/uL Normal 1.00-4.8 [facility] Comment on above: Performed By: #### E SR, CRP, CBC, CREAT #### [address] #### BILL #### [facility] , Lymphocytes/100 WBC (Bld) 15.0 % Normal . [facility] Comment on above: Performed By: #### E SR, CRP, CBC, CREAT #### [place] [address] [place] #### BILL #### [facility] , MCH (RBC) [Entitic mass] 24.8 pg Normal 24.7-34.3 [facility] Comment on above: Performed By: #### E SR, CRP, CBC, CREAT #### [address] #### BILL #### [facility] , MCV (RBC) [Entitic vol] 80.1 fL Normal 80-100 [facility] Comment on above: Performed By: #### E SR, CRP, CBC, CREAT #### [address] #### BILL #### [facility] , Mean Corpuscular HGB Conc 31.0 g/dL Low 32.0-35.0 [facility] Comment on above: Performed By: #### E SR, CRP, CBC, CREAT #### [place] [address] [place] #### BILL #### [facility] , Monocytes (Bld) [#/Vol] 0.5 10*3/uL Normal 0.0-0.8 [facility] Comment on above: Performed By: #### E SR, CRP, CBC, CREAT #### [place] [address] [place] #### BILL #### [facility] , Monocytes/100 WBC (Bld) 4.6 % Normal . [facility] Comment on above: Performed By: #### E SR, CRP, CBC, CREAT #### [facility] [address] [place] [address] #### BILL #### [facility] , Neutrophils (Bld) [#/Vol] 9.1 10*3/uL High 1.8-7.7 [facility] Comment on above: Performed By: #### E SR, CRP, CBC, CREAT #### [facility] [address] [place] [address] [place] #### BILL #### [facility] , Neutrophils/100 WBC (Bld) 79.2 % Normal . [facility] Comment on above: Performed By: #### E SR, CRP, CBC, CREAT #### [address] #### BILL #### [facility] , Nucleated RBC/100 WBC (Bld) [Ratio] 0.1 % Normal 0-0.5 [facility] Comment on above: Performed By: #### E SR, CRP, CBC, CREAT #### [address] #### BILL #### [facility] , Platelet mean volume (Bld) [Entitic vol] 8.3 fL Normal 6.3-10.7 [facility] Comment on above: Performed By: #### E SR, CRP, CBC, CREAT #### [place] [address] [place] #### BILL #### [facility] , Platelets (Bld) [#/Vol] 336 10*3/uL Normal 150-450 [facility] Comment on above: Performed By: #### E SR, CRP, CBC, CREAT #### [place] [address] [place] #### BILL #### [facility] , RBC (Bld) [#/Vol] 3.94 10*6/uL Normal 3.60-5.00 [facility] Comment on above: Performed By: #### E SR, CRP, CBC, CREAT #### [facility] [address] [place] [address] #### BILL #### [facility] , WBC (Bld) [#/Vol] 11.5 10*3/uL High 4.5-11.0 [facility] Comment on above: Performed By: #### E SR, CRP, CBC, CREAT #### [address] #### BILL #### [facility] , Creatinineon 04-23-2021 Creatinine [Mass/Vol] 0.75 mg/dL Normal 0.44-1.03 [facility] Comment on above: Performed By: #### E SR, CRP, CBC, CREAT #### [address] #### BILL #### [facility] , Estimated GFR ( Ni > 60 Normal [facility] Comment on above: Result Comment: GFR estimated reference range: According to KDOQI guidelines, <60 ml/min/1.73m2 is sufficient to diagnose a patient with chronic kidney disease. Performed By: #### E SR, CRP, CBC, CREAT #### [facility] [address] [place] [address] [place] #### BILL #### [facility] , Estimated GFR (Non- Am > 60 Normal [facility] Comment on above: Performed By: #### E SR, CRP, CBC, CREAT #### [facility] [address] [place] [address] [place] #### BILL #### [facility] , Dipstick and Microscopicon 1 Appearance (U) Clear Normal Clear [facility] Comment on above: Order Comment: Name Collection Type:: Clean-Voided Midstream Performed By: #### A DDONUAPLUS #### [facility] [address] [place] [address] #### CH50, C3, C4 #### [facility] , Bacteria,Urine None Seen Normal None Seen [facility] Comment on above: Order Comment: Name Collection Type:: Clean-Voided Midstream Performed By: #### A DDONUAPLUS #### [address] #### CH50, C3, C4 #### [facility] , Bilirubin,Urine Negative Normal Negative [facility] Comment on above: Order Comment: Name Collection Type:: Clean-Voided Midstream Performed By: #### A DDONUAPLUS #### [address] #### CH50, C3, C4 #### [facility] , Color (U) Yellow Normal Yellow [facility] Comment on above: Order Comment: Name Collection Type:: Clean-Voided Midstream Performed By: #### A DDONUAPLUS #### [address] #### CH50, C3, C4 #### [facility] , Glucose Ql (U) 100 mg/dL High Normal [facility] Comment on above: Order Comment: Name Collection Type:: Clean-Voided Midstream Performed By: #### A DDONUAPLUS #### [facility] [address] [place] [address] #### CH50, C3, C4 #### [facility] , Hyaline Casts,Urine 0-8 Normal 0-8 [facility] Comment on above: Order Comment: Name Collection Type:: Clean-Voided Midstream Result Comment: PERF ORMED BY: [place] [address] PATHOLOGIST SH[employer] PRESSER MARIBEL AGUILLON M.D. Performed By: #### A DDONUAPLUS #### [address] [place] [address] [place] #### CH50, C3, C4 #### [facility] , Ketones Ql (U) Negative Normal Negative [facility] Comment on above: Order Comment: Name Collection Type:: Clean-Voided Midstream Performed By: #### A DDONUAPLUS #### [address] #### CH50, C3, C4 #### [facility] , Leukocyte esterase Test strip Ql (U) Negative Normal Negative [facility] Comment on above: Order Comment: Name Collection Type:: Clean-Voided Midstream Performed By: #### A DDONUAPLUS #### [address] #### CH50, C3, C4 #### [facility] , Nitrite,Urine Negative Normal Negative [facility] Comment on above: Order Comment: Name Collection Type:: Clean-Voided Midstream Performed By: #### A DDONUAPLUS #### [address] #### CH50, C3, C4 #### [facility] , Occult Blood,Urine Negative Normal Negative [facility] Comment on above: Order Comment: Name Collection Type:: Clean-Voided Midstream Performed By: #### A DDONUAPLUS #### [facility] [address] [place] [address] #### CH50, C3, C4 #### [facility] , pH (U) 5.0 [pH] Normal 5.0-9.0 [facility] Comment on above: Order Comment: Name Collection Type:: Clean-Voided Midstream Performed By: #### A DDONUAPLUS #### [facility] [address] [place] [address] #### CH50, C3, C4 #### [facility] , Protein,Urine Negative Normal Negative [facility] Comment on above: Order Comment: Name Collection Type:: Clean-Voided Midstream Performed By: #### A DDONUAPLUS #### [address] #### CH50, C3, C4 #### [facility] , RBC,Urine None Seen Normal 0-4 [facility] Comment on above: Order Comment: Name Collection Type:: Clean-Voided Midstream Performed By: #### A DDONUAPLUS #### [address] #### CH50, C3, C4 #### [facility] , Specificy [place],Urine 1.009 Normal 1.001-1.030 [facility] Comment on above: Order Comment: Name Collection Type:: Clean-Voided Midstream Performed By: #### A DDONUAPLUS #### [address] #### CH50, C3, C4 #### [facility] , Squamous Epithelial Cell,Urine 0-1 Normal 0-2 [facility] Comment on above: Order Comment: Name Collection Type:: Clean-Voided Midstream Performed By: #### A DDONUAPLUS #### [address] #### CH50, C3, C4 #### [facility] , Urobilinogen,Urine Normal Normal Normal [facility] Comment on above: Order Comment: Name Collection Type:: Clean-Voided Midstream Performed By: #### A DDONUAPLUS #### [address] #### CH50, C3, C4 #### [facility] , WBC LM.HPF (Urine sed) [#/Area] 0 /[HPF] Normal 0-4 [facility] Comment on above: Order Comment: Name Collection Type:: Clean-Voided Midstream Performed By: #### A DDONUAPLUS #### [facility] [address] [place] [address] [place] #### CH50, C3, C4 #### [facility] , Erythrocyte Sedimentation Ra ryley 04-23-2021 ESR (Bld) [Velocity] 55 mm/h High 0-29 [facility] Comment on above: Result Comment: PERF ORMED BY: [facility] [address] [place] [address] PATHOLOGIST SH[employer] PRESSER MARIBEL AGUILLON M.D. Performed By: #### E SR, CRP, CBC, CREAT #### [facility] [address] #### BILL #### [facility] , BASIC METABOLIC PANELon 03-20 Calcium [Mass/Vol] 8.7 mg/dL Normal 8.6-10.3 [facility] Comment on above: Order Comment: No: D o not add to previous draw Performed By: #### 5 7307, 73349 #### [facility] [address] [place] [address], [place] Chloride [Moles/Vol] 97 mmol/L Low 98-107 [facility] Comment on above: Order Comment: No: D o not add to previous draw Performed By: #### 5 7307, 28684 #### [facility] [address] [place] [address], [place] CO2 [Moles/Vol] 36 mmol/L High 21-31 [facility] Comment on above: Order Comment: No: D o not add to previous draw Performed By: #### 5 7307, 55465 #### [facility] [address] [place] [address], [place] Creatinine [Mass/Vol] 0.74 mg/dL Normal 0.60-1.20 [facility] Comment on above: Order Comment: No: D o not add to previous draw Performed By: #### 5 7307, 84832 #### [facility] [address] [place] [address], [place] GFR/1.73 sq M.predicted among blacks MDRD (S/P/Bld) [Vol rate/Area] mL/min/{1.73_m2} Normal >60 [facility] Comment on above: Order Comment: No: D o not add to previous draw Performed By: #### 5 7307, 29852 #### [facility] [address] [place] [address], [place] GFR/1.73 sq M.predicted among non-blacks MDRD (S/P/Bld) [Vol rate/Area] mL/min/{1.73_m2} Normal >60 [facility] Comment on above: Order Comment: No: D o not add to previous draw Performed By: #### 5 7307, 52654 #### [facility] [address] [place] [address], [place] Glucose [Mass/Vol] 123 mg/dL High 70-100 [facility] Comment on above: Order Comment: No: D o not add to previous draw Performed By: #### 5 7307, 09862 #### [facility] [address] [place] [address], [place] Potassium [Moles/Vol] 4.3 mmol/L Normal 3.5-5.1 [facility] Comment on above: Order Comment: No: D o not add to previous draw Performed By: #### 5 7307, 68884 #### [facility] [address] [place] [address], [place] Sodium [Moles/Vol] 139 mmol/L Normal 136-145 [facility] Comment on above: Order Comment: No: D o not add to previous draw Performed By: #### 5 7307, 35926 #### [facility] [address] [place] [address], [place] Urea nitrogen [Mass/Vol] 24 mg/dL Normal 7-25 [facility] Comment on above: Order Comment: No: D o not add to previous draw Performed By: #### 5 73, 55368 #### [facility] [address] [place] [address], [facility] CBC COMPLETE BLOOD COUNTon 0 - Erythrocyte distribution width (RBC) [Ratio] 16.8 % High 11.5-15.0 [facility] Comment on above: Order Comment: No: D o not add to previous draw Performed By: #### 5 7306, 32032 #### [facility] [address] [place] [address], [facility] Hematocrit (Bld) [Volume fraction] 29.7 % Low 36.0-45.0 [facility] Comment on above: Order Comment: No: D o not add to previous draw Performed By: #### 5 7306, 95963 #### [facility] [address] [place] [address], [facility] Hemoglobin (Bld) [Mass/Vol] 8.9 g/dL Low 12.0-15.0 [facility] Comment on above: Order Comment: No: D o not add to previous draw Performed By: #### 5 73, 85251 #### [facility] [address] [place] [address], [place] MCH (RBC) [Entitic mass] 25.4 pg Low 27.0-33.0 [facility] Comment on above: Order Comment: No: D o not add to previous draw Performed By: #### 5 73, 35798 #### [facility] [address] [place] [address], [place] MCHC (RBC) [Mass/Vol] 30.0 g/dL Low 32.0-35.0 [facility] Comment on above: Order Comment: No: D o not add to previous draw Performed By: #### 5 73, 56979 #### [facility] [address] [place] [address], [place] MCV (RBC) [Entitic vol] 84.9 fL Normal 82.0-98.0 [facility] Comment on above: Order Comment: No: D o not add to previous draw Performed By: #### 5 7307, 22295 #### [facility] [address] [place] [address], [place] Nucleated RBC/100 WBC (Bld) [Ratio] 0 % Normal 0-0 [facility] Comment on above: Order Comment: No: D o not add to previous draw Performed By: #### 5 7307, 77080 #### [facility] [address] [place] [address], [place] PLAT CNT 446 10*3/uL High 150-400 [facility] Comment on above: Order Comment: No: D o not add to previous draw Performed By: #### 5 7307, 43878 #### [facility] [address] [place] [address], [facility] RBC (Bld) [#/Vol] 3.50 10*6/uL Low 3.80-5.00 [facility] Comment on above: Order Comment: No: D o not add to previous draw Performed By: #### 5 7307, 14762 #### [facility] [address] [place] [address], [place] WBC (Bld) [#/Vol] 16.54 10*3/uL High 4.00-10.60 [facility] Comment on above: Order Comment: No: D o not add to previous draw Performed By: #### 5 7307, 39182 #### [facility] [address] [place] [id number], [facility] Cardiovascular Lab Reporton 04-11-2021 Cardiovascular Lab Report [facility] Patient Name: Antonio Diana [facility] S MR #: [id number] Department of Physician: London Rodas M.D. Division of Service Date: 04/11/2021 Cardiology Birthdate: 1970 Adult Cardiovascular Room #: 5AB [id number] [facility] [address] [facility]. [place], [place] [address] Cardiovascular Laboratory Report PROCEDURE PERFORMED: Transesophageal echocardiogram and cardioversion. INDICATION: Atrial flutter. FELLOW: Dunia Sierra MD PROCEDURE IN DETAIL: Informed consent was obtained from the patient after explaining the indication, risks, benefits, as well as alternatives. The patient understood and agreed, and signed the consent form. The patient was brought to the wastewater analyst lab analyst and transesophageal echocardiogram was performed, under conscious [...] Sierra MD Date Trans: 04/11/2021 12:53 P/marixa [id number] cc: Phillip Ann M.D. [address], [facility] [id number] Normal [facility] MAGNESIUM BLOODon 04-11-2021 Magnesium [Mass/Vol] 2.3 mg/dL Normal 1.9-2.7 [facility] Comment on above: Order Comment: No: D o not add to previous draw Performed By: #### 5 7307, 56886 #### [facility] [address] [facility] POC GLUCOSE LABon 04-11-2021 Glucose [Mass/Vol] 124 mg/dL High 70-100 [facility] Comment on above: Performed By: #### 5 7307, 93094 #### [facility] [address] TROPONIN-Ion 04-11-2021 Troponin I.cardiac [Mass/Vol] 0.06 ng/mL High 0.00-0.04 [facility] Comment on above: Order Comment: No: D o not add to previous draw Result Comment: REFE RENCE RANGES: 0.00 - 0.04 ng/ml NORMAL 0.05 - 0.50 ng/ml INDETERMINATE > 0.50 ng/ml CONSISTENT WITH AN M.I. Performed By: #### 5 7307, 34768 #### [facility] [address] *BLOOD CULTUREon 04-10-2021 *BLOOD CULTURE Clinical Report: (D) Specimen: BLOOD CULTURE Collected: 04/10/2021 09:50 Status: Final Last Updated: 04/15/2021 11:28 (1) Right hand CULT RES (Final) No Growth Day 5 Normal [facility] Comment on above: Order Comment: No: D o not add to previous draw Performed By: #### 5 7307, 37730 #### [facility] [address] *BLOOD CULTURE Clinical Report: (D) Specimen: BLOOD CULTURE Collected: 04/10/2021 09:50 Status: Final Last Updated: 04/15/2021 11:28 (1) Left hand CULT RES (Final) No Growth Day 5 Normal [facility] Comment on above: Order Comment: No: D o not add to previous draw Performed By: #### 5 7307, 51171 #### [facility] [address] *SARS-CoV-2 COVID-19on 04-10 SARS-CoV-2 (COVID-19) RNA DEIRDRE+probe Ql (Unsp spec) Not detected Normal Not Detected [facility] Comment on above: Order Comment: No: D o not add to previous draw Performed By: #### 5 7307, 59255 #### [facility] [address] APTTon 04-10-2021 aPTT Coag (Bld) [Time] 23.4 s Low 25.0-35.0 [facility] Comment on above: Order Comment: [...] THIS PURPOSE. Performed By: #### 5 7307, 60844 #### [facility] [address] aPTT Coag (Bld) [Time] 23.2 s Low 25.0-35.0 [facility] Comment on above: Order Comment: [...] THIS PURPOSE. Performed By: #### 5 7307, 81822 #### [facility] [address] BASIC METABOLIC PANELon 03-20 Calcium [Mass/Vol] 8.6 mg/dL Normal 8.6-10.3 [facility] Comment on above: Order Comment: No: D o not add to previous draw Performed By: #### 1 0070, 83621, 71123 #### [facility] [address] [place] [address], [place] Chloride [Moles/Vol] 99 mmol/L Normal 98-107 [facility] Comment on above: Order Comment: No: D o not add to previous draw Performed By: #### 1 0, 52303, 29553 #### [facility] [address] [place] [address], [place] CO2 [Moles/Vol] 32 mmol/L High 21-31 [facility] Comment on above: Order Comment: No: D o not add to previous draw Performed By: #### 1 0, 32331, 18804 #### [facility] [address] [place] [address], [place] Creatinine [Mass/Vol] 0.84 mg/dL Normal 0.60-1.20 [facility] Comment on above: Order Comment: No: D o not add to previous draw Performed By: #### 1 0, 77319, 96515 #### [facility] [address] [place] [address], [place] GFR/1.73 sq M.predicted among blacks MDRD (S/P/Bld) [Vol rate/Area] mL/min/{1.73_m2} Normal >60 [facility] Comment on above: Order Comment: No: D o not add to previous draw Performed By: #### 1 0, 32135, 80778 #### [facility] [address] [place] [address], [place] GFR/1.73 sq M.predicted among non-blacks MDRD (S/P/Bld) [Vol rate/Area] mL/min/{1.73_m2} Normal >60 [facility] Comment on above: Order Comment: No: D o not add to previous draw Performed By: #### 1 0, 46648, 47612 #### [facility] [address] [place] [address], [place] Glucose [Mass/Vol] 117 mg/dL High 70-100 [facility] Comment on above: Order Comment: No: D o not add to previous draw Performed By: #### 1 0070, 93814, 03661 #### [facility] [address] [place] [address], [facility] Potassium [Moles/Vol] 3.9 mmol/L Normal 3.5-5.1 [facility] Comment on above: Order Comment: No: D o not add to previous draw Performed By: #### 1 0070, 43018, 32422 #### [facility] [address] [place] [address], [facility] Sodium [Moles/Vol] 139 mmol/L Normal 136-145 [facility] Comment on above: Order Comment: No: D o not add to previous draw Performed By: #### 1 0070, 55678, 82260 #### [facility] [address] [facility] Urea nitrogen [Mass/Vol] 19 mg/dL Normal 7-25 [facility] Comment on above: Order Comment: No: D o not add to previous draw Performed By: #### 1 0070, 26428, 04105 #### [facility] [address] [facility] [address] BNP (B-TYPE NATRIURETIC PEPT MARILYN)on 04-10-2021 Natriuretic peptide B (Bld) [Mass/Vol] 259 pg/mL High 0-100 [facility] Comment on above: Order Comment: No: D o not add to previous draw Result Comment: Give n the appropriate clinical setting a BNP result of >100 pg/mL indicates congestive heart failure. Performed By: #### 5 7307, 76071 #### [facility] [address] [place] [address], [facility] CBC W/DIFFon 04-10-2021 ABS IMM GRANS 1.1 10*3/uL High 0.0-0.2 [facility] Comment on above: Performed By: #### 5 0103 #### [facility] [address] [place] [id number], [facility] ABS NEUTROPHILS 9.6 10*3/uL High 1.6-7.6 [facility] Comment on above: Performed By: #### 5 0103 #### [facility] [address] [place] [address], [facility] ANISO MODERATE Normal [facility] Comment on above: Performed By: #### 5 0103 #### [facility] [address] [place] [address], [facility] Basophils (Bld) [#/Vol] 0.1 10*3/uL Normal 0.0-0.2 [facility] Comment on above: Performed By: #### 5 0103 #### [facility] [facility] [address] [place] [id number], [facility] Basophils/100 WBC (Bld) 0.7 % Normal 0.0-1.0 [facility] Comment on above: Performed By: #### 5 0103 #### [facility] [address] [place] [address], [facility] Eosinophils (Bld) [#/Vol] 0.1 10*3/uL Normal 0.0-0.5 [facility] Comment on above: Performed By: #### 5 0103 #### [facility] [address] [place] [address], [facility] Eosinophils/100 WBC (Bld) 0.4 % Normal 0.0-6.0 [facility] Comment on above: Performed By: #### 5 0103 #### [facility] [address] [place] [address], [facility] Erythrocyte distribution width (RBC) [Ratio] 16.5 % High 11.5-15.0 [facility] Comment on above: Performed By: #### 5 0103 #### [facility] [address] [place] [id number] Hematocrit (Bld) [Volume fraction] 31.2 % Low 36.0-45.0 [facility] Comment on above: Performed By: #### 5 0103 #### [facility] [address] Hemoglobin (Bld) [Mass/Vol] 9.0 g/dL Low 12.0-15.0 [facility] Comment on above: Performed By: #### 5 0103 #### [facility] [address] HYPO SLIGHT Normal [facility] Comment on above: Performed By: #### 5 0103 #### [facility] [address] IMMATURE GRANS 6.8 % High 0.0-1.0 [facility] Comment on above: Performed By: #### 5 0103 #### [facility] [address] Lymphocytes (Bld) [#/Vol] 4.4 10*3/uL High 1.2-4.0 [facility] Comment on above: Performed By: #### 5 0103 #### [facility] [address] Lymphocytes/100 WBC (Bld) 26.4 % Normal 20.0-45.0 [facility] Comment on above: Performed By: #### 5 0103 #### [facility] [address] MCH (RBC) [Entitic mass] 25.3 pg Low 27.0-33.0 [facility] Comment on above: Performed By: #### 5 3 #### [facility] [address] [facility] MCHC (RBC) [Mass/Vol] 28.8 g/dL Low 32.0-35.0 [facility] Comment on above: Performed By: #### 5 0103 #### [facility] [address] [facility] MCV (RBC) [Entitic vol] 87.6 fL Normal 82.0-98.0 [facility] Comment on above: Performed By: #### 5 3 #### [facility] [address] [place] [address], [facility] Monocytes (Bld) [#/Vol] 1.3 10*3/uL High 0.1-1.0 [facility] Comment on above: Performed By: #### 5 3 #### [facility] [address] MONOS 7.6 % Normal 5.0-12.0 [facility] Comment on above: Performed By: #### 5 3 #### [facility] [address] Neutrophils/100 WBC (Bld) 58.1 % Normal 40.0-72.0 [facility] Comment on above: Performed By: #### 5 102 #### [facility] [address] Nucleated RBC/100 WBC (Bld) [Ratio] 1 % High 0-0 [facility] Comment on above: Performed By: #### 5 3 #### [facility] [address] [place] [address], [facility] PLAT CNT 483 10*3/uL High 150-400 [facility] Comment on above: Performed By: #### 5 3 #### [facility] [address] POIK SLIGHT Normal [facility] Comment on above: Performed By: #### 102 #### [facility] [address] [place] [address], [facility] POLY SLIGHT Normal [facility] Comment on above: Performed By: #### 5 0103 #### [facility] [address] [place] [address], [facility] RBC (Bld) [#/Vol] 3.56 10*6/uL Low 3.80-5.00 [facility] Comment on above: Performed By: #### 5 0103 #### [facility] [address] [facility] [place] [address], [facility] WBC (Bld) [#/Vol] 16.54 10*3/uL High 4.00-10.60 [facility] Comment on above: Performed By: #### 5 0103 #### [facility] [address] [facility] [address] LIPID PROFILEon 04-10-2021 Cholesterol [Mass/Vol] 161 mg/dL Normal 120-200 [facility] Comment on above: Result Comment: CHOL ESTEROL REFERENCE RANGE: 20 YEARS AND OLDER CARDIOVASCULAR RISK Less than 200 mg/dl Low Risk 200 to 239 mg/dl Borderline Risk 240 mg/dl and greater High Risk Performed By: #### 3 1569, 26688, 29261 #### [facility] [address] [facility]. [address] Cholesterol in HDL [Mass/Vol] 61 mg/dL Normal 23-92 [facility] Comment on above: Result Comment: Slig ht variation in normal range could be due to gender and/or age. HDL CHOLESTEROL REFERENCE RANGE: 20 years and older Cardiovascular Risk > or =60 mg/dL Desirable 40 TO 59 mg/dL Low Risk <40 mg/dL High Risk Performed By: #### 3 1569, 55902, 90204 #### [facility] [address] [facility]. [address] Cholesterol in LDL [Mass/Vol] 28 mg/dL Normal 0-130 [facility] Comment on above: Result Comment: LDL IS A CALCULATION LDL IS ONLY VALID IF THE TRIG IS LESS THAN 400. Performed By: #### 3 1569, 78881, 33477 #### [facility] [address] [place] [address], [facility] Cholesterol.total/C holesterol in HDL [Mass ratio] 2.6 {ratio} Normal .0-4.5 [facility] Comment on above: Performed By: #### 3 1569, 55800, 91275 #### [facility] [address] [place] [address], [facility] NON-HDL CHOLESTEROL 100 mg/dL Normal [facility] Comment on above: Performed By: #### 3 1569, 16626, 72026 #### [facility] [address] [facility] [place] [address], [facility] Triglyceride [Mass/Vol] 362 mg/dL High 40-149 [facility] Comment on above: Result Comment: TRIG LYCERIDE REFERENCE RANGE: 20 YEARS AND OLDER CARDIOVASCULAR RISK LESS THAN 150 mg/dl LOW RISK 150 TO 199 mg/dl BORDERLINE RISK 200 mg/dl AND GREATER HIGH RISK Performed By: #### 3 1569, 76265, 63167 #### [facility] [address] [place] [address], [facility] VLDL CHOL 72 mg/dL High 0-40 [facility] Comment on above: Performed By: #### 3 1569, 54898, 38835 #### [facility] [address] [place] [address], [facility] MAGNESIUM BLOODon 04-10-2021 Magnesium [Mass/Vol] 2.4 mg/dL Normal 1.9-2.7 [facility] Comment on above: Order Comment: No: D o not add to previous draw Performed By: #### 1 0070, 81397, 78400 #### [facility] [address] [place] [address], [facility] POC GLUCOSE LABon 04-10-2021 Glucose [Mass/Vol] 350 mg/dL High 70-100 [facility] Comment on above: Performed By: #### 5 9574, 50342 #### [facility] [address] [place] [address], [facility] Glucose [Mass/Vol] 249 mg/dL High 70-100 [facility] Comment on above: Performed By: #### 5 7307, 17064 #### [facility] [address] [place] [address], [facility] PROCALCITONINon 04-10-2021 PROCALCITONIN 0.09 ng/mL Normal 0.00-0.10 [facility] Comment on above: Order Comment: [...] initial PCT<0.5ng/mL Performed By: #### 5 7307, 99836 #### [facility] [address] [place] [address], [facility] PROTHROMBIN TIMEon INR Coag (PPP) [Relative time] 1.07 {INR} Normal 0.91-1.16 [facility] Comment on above: Order Comment: No: [...] CHEST 1995;[id number]. Performed By: #### 5 7307, 03264 #### [facility] [address] [place] [address], [facility] PT Coag (PPP) [Time] 13.9 s Normal 12.3-14.8 [facility] Comment on above: Order Comment: No: D o not add to previous draw Result Comment: ALL RESULTS MUST BE INTERPRETED WITH RESPECT TO BLOOD DRAWING ARTIFACT OR DILUTION ERROR OF ANTICOAGULANT AT THE TIME OF SAMPLING. Performed By: #### 5 7307, 13892 #### [facility] [address] [place] [address], [facility] TROPONIN-Ion 04-10-2021 Troponin I.cardiac [Mass/Vol] 0.07 ng/mL High 0.00-0.04 [facility] Comment on above: Order Comment: No: D o not add to previous draw Result Comment: REFE RENCE RANGES: 0.00 - 0.04 ng/ml NORMAL 0.05 - 0.50 ng/ml INDETERMINATE > 0.50 ng/ml CONSISTENT WITH AN M.I. Performed By: #### 3 1569, 65113, 01431 #### [facility] [address] [facility]. [address] Troponin I.cardiac [Mass/Vol] 0.07 ng/mL High 0.00-0.04 [facility] Comment on above: Order Comment: No: D o not add to previous draw Result Comment: REFE RENCE RANGES: 0.00 - 0.04 ng/ml NORMAL 0.05 - 0.50 ng/ml INDETERMINATE > 0.50 ng/ml CONSISTENT WITH AN M.I. Performed By: #### 1 0070, 12716, 71143 #### [facility] [address] TSH3 WITH REFLEX FT4on 04-10 TSH 3RD GENERATION 0.95 uIU/mL Normal 0.34-5.60 [facility] Comment on above: Order Comment: Yes: Add to Previous draw if able Performed By: #### 3 1569 #### [facility] [address] [facility]. [address] TSH 3RD GENERATION 3.12 uIU/mL Normal 0.34-5.60 [facility] Comment on above: Performed By: #### 3 1569, 15298, 94720 #### [facility] [address] [facility] UFH HEPARIN ASSAYon 04-10-20 21 UNFRACTIONATED HEPARIN >1.00 Critically high 0.30-0.70 [facility] Comment on above: Result Comment: Resu lt checked and called. Accurately read back by Haven Avila RN at 1122 per RN patient may have previously been given Eliquis. UFH = 1.36 for pharmacy use Rivaroxaban and Apixaban will interfere with the anti Xa assay used to monitor UFH and LMWH. Performed By: #### 5 7307, 26647 #### [facility] [address] [facility] [address] Cardiovascular Lab Reporton 01-30-2021 Cardiovascular Lab Report [facility] Patient Name: Diana Alvarez [facility] S MR #: [id number] Department of Physician: London Ross M.D. Division of Service Date: 01/30/2021 Cardiology Birthdate: 1970 Adult Cardiovascular Room #: [address] [place] [address] Cardiovascular Laboratory Report FINAL IMPRESSIONS: 1. Moderately [...] up with Cardiology in the [facility] Cardiology office in the next 2 [...] right internal jugular vein was obtained. A 6-Lithuanian glide sheath was inserted without difficulty. A [...] Bear M.D. Date Trans: 01/30/2021 02:48 P/siriao [id number] cc: Phillip Ann M.D. [address] [facility] [address] [facility] Vital Signs Date Time Vital Sign Value Performing Clinician Iman stafford 09-15-2022 15:24-0500 Blood Pressure Location [employer] [facility] 09-15-2022 15:24-0500 Diastolic blood pressure 78 mm[Hg] Juan Miguel OSHEAL [facility] 09-15-2022 15:24-0500 Heart rate 70 /min [employer] [facility] 09-15-2022 15:24-0500 Respiratory rate 16 /min Juan Miguel [employer] [facility] 09-15-2022 15:24-0500 Systolic blood pressure 116 mm[Hg] Juan Miguel [employer] [facility] Encounters Encounter Date Encounter Type Care Provider Facility Start: 01-11-2024 [facility] Start: 12-28-2023 ambulatory [facility] Start: 10-26-2023 End: 10-26-2023 ambulatory [facility] Start: 05-05-2023 End: 05-05-2023 ambulatory STACY VILLALTA [facility] Start: 11-17-2022 End: 11-17-2022 ambulatory EMILY ZHONG . Facility:[facility] Start: 10-28-2022 End: 10-28-[address] PHILLIP ANN . Facility:[facility] Start: 09-24-2022 End: 09-24-[address] PHILLIP ANN . Facility:[facility] Start: 09-15-2022 End: 09-16-2022 ambulatory Juan Miguel SALINAS Facility: [place] Start: 09-15-2022 End: 09-15-2022 Patient encounter procedure [...] Evaluation and management of inpatient PHILLIP ANN [facility] Start: 01-30-2021 End: 01-31-2021 ambulatory CASSY BEAR [facility] Procedures Date Procedure Procedure Detail Performing Clinician Start: 04-11-2021 Religious of Cardi ac Rhythm, Single SAMER Sony [...] Activity Detail Author Start: 12-02-2022 ambulatory Ambulatory Facility:[facility] Immunizations Immunization Date Immunization Notes Care Provider Fa cili 04-18-2022 influenza virus vaccine, unspecified formulation Juan Miguel SALINAS [facility] [place] 10-29-2020 SARS-CoV-2 (COVID-19 ) mRNA-1273 vaccine Juan Miguel SALINAS [facility] [place] 10-25-2020 SARS-CoV-2 (COVID-19 ) mRNA BNT-162b2 vax Juan Miguel OSHEAL [facility] Comment on above: Result Comment: 2022: [id number] 10-24-2020 SARS-CoV-2 (COVID-19 ) mRNA BNT-162b2 vax Juan Miguel NILL [facility] 10-04-2020 SARS-CoV-2 (COVID-19 ) mRNA BNT-162b2 vax Juan Miguel NILL [facility] [place] Comment on above: Result Comment: 2022: TPV50 10-03-2020 SARS-CoV-2 (COVID-19 ) mRNA BNT-162b2 vax Juan Miguel NILL [facility] Payers Date Payer Category Payer Unknown [id number] 1970 Unknown [id number] 2.16.8 [id number] 1970 Unknown [id number] 2.16.8 40.1.480668.3.579.2.647 1970 Unknown [id number] 2.16.8 40.1.538349.3.579.2.727 1970 Unknown [id number] 2.16.8 40.1.732013.3.579.2.727 1970 Unknown [id number] 2.16.84 0.1.256635.3.579.2.593 1970 Unknown [id number] 2.16.84 0.1.427261.3.579.2.593 1970 Unknown [id number] 2.16.84 0.1.603691.3.579.2.593 1970 Unknown [id number] 2.16.84 0.1.347957.3.579.2.593 1970 Unknown [id number] 2.16.84 0.1.888711.3.579.2.593 1968 Unknown [id number] 2.16.84 0.1.295661.3.579.2.593 1968 Unknown [id number] 2.16.84 0.1.328788.3.579.2.593 1968 Unknown [id number] 2.16.84 0.1.675709.3.579.2.593 1970 Unknown [id number] 2.16.84 0.1.553885.3.579.2.593 1968 Unknown [id number] 2.16.84 0.1.947502.3.579.2.593 1968 Unknown [id number] 2.16.84 0.1.730667.3.579.2.593 1968 Unknown [id number] 2.16.84 0.1.938610.3.579.2.593 1970 Unknown [id number] 2.16.84 0.1.165937.3.579.2.593 1961 Unknown [id number] 1961 Unknown [id number] 1961 Unknown [id number] 1961 Unknown [id number] Social History Date Type Detail Facility Start: 09-15-2022 Tobacco smoking status Ex-smoker (fi nding) [facility] [place] Tobacco smoking status Never [facility] [place] Sex Assigned At Female [facility] Medical Equipment Procedure Code Equipment Code Equipment Origin al Text Equipment Identifier Dates lancets, glucome ter, alcohol swabs, testing strips, insulin pen needles, Print Requisition, Supply Start: 08-25-2021 Functional Status Date Assessment Result Facility 09-15-2022 Functional Status N/A [facility] Progress note 10-26-2023 Note Date [...] All other systems reviewed and are negative. [facility] Progress note 10-26-2023 Note Date & Type Note Facility 10-26-2023 Note Cardiovascular [facility] SUBJECTIVE Chief Complaint Patient presents with [...] trended upwards is a since seen in [place] ER 04/28/2023 and was diagnosed with vertigo [...] (paroxysmal atrial fi (more content not included)... [facility] Progress note 05-05-2023 Note Date & Type Note Facility 05-05-[address] Cardiology Consul t Note Reason for visit: [...] trended upwards is a since seen in [place] ER 04/28/2023 and was diagnosed with vertigo [...] Take 1 table (more content not included)... [facility] Progress note 05-05-2023 Note Date [...] All other systems reviewed and are negative. [facility] Clinical Note 11-17-2022 Note Date [...] by: AUDREY BO Date: 2022-11-17 12:14 [facility] Clinical Note 09-17-2022 Note Date & Type Note Facility 09-17-2022 Note Chief Complaint consultation for epigastric pain and nausea HPI Staff 51 year old female presents on consultation from Dr. Ann for intermittent abdominal pain. Presented to [place] ED 08/09 with complaint of epigastric pain [...] section, section, Excisi (more content not included)... [facility] Comment on above: Result Comment: Elec tronically Signed By: BRAD DIAZ, Juan Miguel Lee.lev\Date and Time Signed: 09/17/22 11:55 EST Discharge summary note 04-12-2021 Note Date & Type Note Facility 04-12-2021 Note MR#: [id number] I [facility] Pt. Name: Diana Alvarez Admitted: 04/10/2021 Discharged: 04/11/2021 Date of : 1970 Physician: Orlin Wick MD DISCHARGE SUMMARY PRIMARY DIAGNOSIS: New-onset atrial flutter with RVR. SECONDARY DIAGNOSES: 1. Pulmonary hypertension. 2. COPD. 3. Diabetes. HISTORY OF PRESENT ILLNESS: This patient is a 50-year-old female with past medical history of COPD, hypertension, and diabetes, who was sent from [facility] due to atrial flutter with RVR due to COPD exacerbation. The patient was initially treated with IV Cardizem, however, it was changed to p.o. prior to transfer. The patient was also given loading dose digoxin. The [facility]. HOSPITAL COURSE: 1. New-onset atrial [...] Wick MD Date Trans: 04/12/2021 03:25 P/marixa [id number] cc: Phillip Ann M.D. [address], [place] [address] [facility] Evaluation + Plan note Note Date & Type Note Facility Evaluation + Plan note No data available for this section [facility] [place] [facility] Discharge instructions Note Date & Type Note Facility Hospital Discharge instructions No data available for this section [facility] [place] Progress note Note Date & Type Note Facility Progress note No data available for this section [facility] [place] Summary Purpose Family History No Family History Records FoundNo Family History Records FoundNo Family History Records FoundNo Family History Records FoundNo Family History Records Found Advance Directives No Advanced Directives Records FoundNo Advanced Directives Records FoundNo Advanced Directives Records FoundNo Advanced Directives Records FoundNo Advanced Directives Records Found Additional Source Comments INFORMATION SOURCE (unrecogn ized section and content) DATE CREATED AUTHOR 09/10/2021 [facility] DATE CREATED AUTHOR AUTHOR'S ORGANIZ ATION 12/24/2021 [facility] DATE CREATED AUTHOR AUTHOR'S ORGANIZ ATION 10/22/2022 Flanagan Tone [facility] DATE CREATED AUTHOR AUTHOR'S ORGANIZ ATION 11/20/2022 [facility] DATE CREATED AUTHOR AUTHOR'S ORGANIZ ATION 02/02/2024 [facility] Patient Care team informatio n (unrecognized section and content) Personnel Name: Phillip Ann MD Address: Address: [address] [place] [address] FOR RECORDS PERTAINING TO PATIENTS WHO ARE [...] BE BASED ON THE PRIMARY CLINICAL RECORDS. [facility]. provides no warranty or guarantee of the accuracy or completeness of information in this document.
[2024-03-13 13:57] LABS: Internal Control Within Normal Limits; Occult Blood Positive
[2024-03-13 15:16] LABS: C. Difficile PCR NEGATIVE (NEGATIVE)
== END 2024-03-11 14:25 | disposition home or self-care (01) ==
LOC: LAB 14:24
PROVIDERS: PCP Family Medicine; Visit Provider Family Medicine
DX: K52.9 Noninfective gastroenteritis and colitis, unspecified (principal); E11.9 Type 2 diabetes mellitus without complications; R19.7 Diarrhea, unspecified
CPT/HCPCS: 87045; 87046; 87427; 87493; G0328

== ENCOUNTER 2024-03-25 07:54 | Outpatient (OUT) | payer OTHER, SELFPAY ==
--- NOTE | 2024-03-25 | US_ITS ---
The [address] [address] Patient Name: LEIGHANN TALAMANTES MRN: [id number] date: 1970 Sex: F Assigned Patient Location: US Current Patient Location: Accession/Order Number: [id number] Exam Date: 03/25/2024 08:02 Report Date: 03/27/2024 07:42 At the request of: PHILLIP BURKETT Procedure: US right upper quadrant EXAM: US right upper quadrant HISTORY: RIGHT UPPER QUADRANT PAIN R10.11 COMPARISON: None. TECHNIQUE: Grayscale, color and Doppler FINDINGS: The liver is normal in size, contour and echotexture measuring 15.7 cm length. No focal hepatic mass. Hepatopedal flow identified in the main portal vein with a velocity of 33 cm/s. The gallbladder is contracted. The wall measures 2.3 mm. Negative sonographic Martell sign. Common bile duct measures 4.6 mm. Echogenic foci within the gallbladder, cholelithiasis. The visualized portions of the pancreas are normal in The right kidney measures 10.6 x 4.4 x 4.8 cm. The cortex measures 1.7 cm. 1.1 cm midpole cortical anechoic area, a simple cyst is favored No ascites US/US right upper quadrant IMPRESSION: Cholelithiasis without evidence of acute cholecystitis Electronically authenticated by: VIVI GARY Date: 03/27/2024 07:42
--- NOTE | 2024-03-25 | XR_ITS ---
The [address] [address] Patient Name: LEIGHANN TALAMANTES MRN: [id number] date: 1970 Sex: F Assigned Patient Location: US Current Patient Location: US Accession/Order Number: [id number] Exam Date: 03/25/2024 08:35 Report Date: 03/27/2024 10:10 At the request of: PHILLIP BURKETT Procedure: XR acute abdomen series EXAMINATION: XR acute abdomen series HISTORY: RIGHT UPPER QUADRANT PAIN R10.11 COMPARISON: No relevant comparison available. FINDINGS: LUNGS: No infiltrate, pneumothorax, or pleural effusion. MEDIASTINUM: No abnormal widening. Loop recorder BOWEL GAS PATTERN: Non-obstructed. Large amount of stool in the rectum which measures 7.5 cm transversely FREE AIR: None. CALCIFICATIONS: None significant. BONES: No fracture or visible bone lesion. Moderate degenerative changes of the spine OTHER: Negative. XR/XR acute abdomen series IMPRESSION: Clear lungs Large amount of stool in the rectum Electronically authenticated by: VIVI GARY Date: 03/27/2024 10:10
--- NOTE | 2024-03-25 | XR_ITS ---
The [address] [address] Patient Name: LEIGHANN TALAMANTES MRN: [id number] date: 1970 Sex: F Assigned Patient Location: [place] Current Patient Location: [place] Accession/Order Number: [id number] Exam Date: 03/25/2024 08:35 Report Date: 03/27/2024 10:08 At the request of: PHILLIP BURKETT Procedure: XR shoulder LT min 2V PROCEDURE: XR shoulder LT min 2V COMPARISON: None. HISTORY: RIGHT UPPER QUADRANT PAIN R10.11 FINDINGS: BONES:No acute fracture or dislocation. Moderate acromioclavicular and glenohumeral joint osteoarthropathy with joint space narrowing and marginal osteophyte formation SOFT TISSUES:Negative. No visible soft tissue swelling. EFFUSION:None visible. OTHER: Negative. XR/XR shoulder LT min 2V IMPRESSION: Osteoarthritis Electronically authenticated by: VIVI GARY Date: 03/27/2024 10:08
--- OUTSIDE RECORDS SUMMARY | 2024-03-25 07:57 | XMS_ITS | CCD ---
Author Organization [facility] Care Team Providers Care Photography Assistant Name Role Phone ADAM BEARAB A Admitting Unavailable CASSY BEAR Attending Unavailable PHILLIP ANN Referring Unavailable PHILLIP ANN Primary Care Unavailable PHILLIP ANN Referring Unavailable XIAO TORRES Surgeon Unavailable ALBERT HUI Attending Unavailable CALLI PAIGE Admitting Unavailable ME Procedure Practitioner Unavailab PHILLIP Muñoz Primary Care Unavailable ME Procedure Practitioner Unavailab Dunia Light Surgeon Unavailsindhu e Phillip Ann Primary Care Physician MADELAINE ., DR FISHER Primary Care Unavailable HOY [...] DIANA ANDINO Admitting Unavailable HOY ., DR FISEHR Primary Care Unavailable HOY ., DR FISHER Consulting Unavailable HOY ., DR FISHER Admitting Unavailable HOY ., DR FISHER Attending Unavailable HOY ., DR FISHER Primary Care Unavailable NILL ., DR PATRICK Consulting Unavailable NILL ., DR PATRICK Attending Unavailable NILL ., DR PATRICK Admitting Unavailable DIAB ., FABRICIO Attending Unavailable HOY ., DR FISHER Primary Care Unavailable FALVO, EHLLEN Consulting Unavailable DIAB ., FABRICIO Admitting Unavailable [...] CURTIS Referring Unavailable MANOJ, CURTIS Referring Unavailable JENNA HENDERSON Attending Unavailable MANOJ, CURTIS Referring Unavailable NILLJuan Miguel Attending Unavailable Allergies Allergy Classification Reported Allergen(s) Allergy Type Date of Onset Reaction(s) Facility (4 sources) Morphine; Translations: [MORPHINE] Drug Allergy 9 [facility] Repository (1 source) 32975,00; Translations: [33055,00] Propensity to adverse reactions (disorder) 0 [facility] Repository (1 source) Morphine; Translations: [morphine] Drug Allergy Feeling nervous (finding), Tachycardia (finding) General Surgery [facility]eda (1 source) dulaglutide; Translations: [DULAGLUTIDE] Drug Allergy [facility] Repository (1 source) No Known Medication Allergies; Translations: [No Known Medication Allergies] Propensity to adverse reactions (disorder) [facility] Repository Medications Current Medications Medication Drug Class(es) Dates Sig (Normalized) Sig (Original) [id number] 200 actuat albuterol 0.09 mg/actuat metered dose [...] disease (1 source) 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; Translations: [ASHD [place] W/O ANGINA PECTORIS] Onset: 08-11-2022 Chronic [...] Onset: 09-13-2022 Chronic Other aftercare (1 source) 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 Thanks! [facility] 01-11-2024 36 Pt calling with bp's 156/83 133/78 147/80 146/78 157/72 148/80 120/80 [facility] 12-23-2023 36 Regarding echo performed on 12/20/2023: NILDA Ruelas MA Please let [...] weeks with readings. She verbalized understanding. [facility] Telephoneon 12-23-2023 Telephone [id number] Diana Alvarez 1970 F Date Provider Department Center 12/23/2023 MIGUEL ROMANO TISH [facility] Family History Problem Relation Age of Onset Breast cancer Mother Aneurysm Mother Stroke Mother Heart attack Father Coronary artery disease Father Family Status - Relation Status Age at Mother Father [facility] 36on 11-10-2023 36 Call reference # [id number]. - Approval # [id number] approved from 11/05/23 - 01/04/24. [facility] Office Visiton 10-26-2023 Follow-up visit [id number] Diana Alvarez 1970 [facility] Provider Department Center 10/26/2023 JENNA ABREU TISH [facility] Family History Problem Relation Age of Onset Breast cancer Mother Aneurysm Mother Stroke Mother Heart attack Father Coronary artery disease Father Family Status - Relation Status Age at Mother Father Level of Service:[id number] ME OFFICE/OUTPATIENT ESTABLISHED MOD MDM 30 MIN Reason for Visit and Comments: Atrial Flutter [101] Congestive Heart Failure [127] [facility] Office Visiton 05-05-2023 Follow-up visit [id number] Diana Alvarez 1970 [facility] Provider Department Center 05/05/2023 Laxmi-STACY VILLALTA TISH [facility] Family History Problem Relation Age of Onset Breast cancer Mother Aneurysm Mother Stroke Mother Heart attack Father Coronary artery disease Father Family Status - Relation Status Age at Mother Father Level of Service:43548 ME OFFICE/OUTPATIENT ESTABLISHED MOD MDM 30-39 MIN [facility] CBC AUTO DIFFon 10-28-2022 BASO # 0.0 103/ul Normal 0.0-0.1 [facility] Comment on above: Performed By: #### L IPID, CMP, T4, TSH, FT3 #### [facility] [address] [place] [address] Dr. Mendel Herron Basophils/100 WBC (Bld) 0.2 % Normal 0.2-2.0 [facility] Comment on above: Performed By: #### L IPID, CMP, T4, TSH, FT3 #### [facility] [address] [place] [address] Dr. Mendel Herron EO # 0.0 103/ul Normal 0.0-0.7 [facility] Comment on above: Performed By: #### L IPID, CMP, T4, TSH, FT3 #### [facility] [address] [place] [address] Dr. Mendel Herron Eosinophils/100 WBC (Bld) 0.3 % Critically low 0.9-7.0 [facility] Comment on above: Performed By: #### L IPID, CMP, T4, TSH, FT3 #### [facility] [address] [place] [address] Dr. Mendel Herron Erythrocyte distribution width (RBC) [Ratio] 13.6 % Normal 11.0-15.0 [facility] Comment on above: Performed By: #### L IPID, CMP, T4, TSH, FT3 #### [facility] [address] [place] [address] Dr. Mendel Herron Hematocrit (Bld) [Volume fraction] 40.1 % Normal 36.0-48.0 [facility] Comment on above: Performed By: #### L IPID, CMP, T4, TSH, FT3 #### [facility] [address] [place] [address] Dr. Mendel Herron Hemoglobin (Bld) [Mass/Vol] 13.0 g/dL Normal 12.0-16.0 [facility] Comment on above: Performed By: #### L IPID, CMP, T4, TSH, FT3 #### [facility] [address] [place] [address] Dr. Mendel Herron IG # 0.06 10e3/ul Critically high 0.00-0.03 [facility] Comment on above: Performed By: #### L IPID, CMP, T4, TSH, FT3 #### [facility] [address] [place] [address] Dr. Mendel Herron IG % 0.5 % Normal 0.0-0.5 [facility] Comment on above: Performed By: #### L IPID, CMP, T4, TSH, FT3 #### [facility] [address] [place] [address] Dr. Mendel Herron LYMPH # 2.8 103/ul Normal 1.2-3.8 [facility] Comment on above: Performed By: #### L IPID, CMP, T4, TSH, FT3 #### [facility] [address] [place] [address] Dr. Mendel Herron Lymphocytes/100 WBC (Bld) 22.4 % Normal 20.5-60.0 [facility] Comment on above: Performed By: #### L IPID, CMP, T4, TSH, FT3 #### [facility] [address] [place] [address] Dr. Mendel Herron MANUAL DIFF REQ NO Normal [facility] Comment on above: Performed By: #### L IPID, CMP, T4, TSH, FT3 #### [facility] [address] [place] [address] Dr. Mendel Herron MCH (RBC) [Entitic mass] 30.8 pg Normal 26.7-34.0 [facility] Comment on above: Performed By: #### L IPID, CMP, T4, TSH, FT3 #### [facility] [address] [place] [address] Dr. Mendel Herron MCHC (RBC) [Mass/Vol] 32.4 g/dL Normal 29.9-35.2 [facility] Comment on above: Performed By: #### L IPID, CMP, T4, TSH, FT3 #### [facility] [address] [place] [address] Dr. Mendel Herron MCV (RBC) [Entitic vol] 95.0 fL Normal 81.0-99.0 [facility] Comment on above: Performed By: #### L IPID, CMP, T4, TSH, FT3 #### [facility] [address] [place] [address] Dr. Mendel Herron MONO # 0.9 103/ul Critically high 0.3-0.8 [facility] Comment on above: Performed By: #### L IPID, CMP, T4, TSH, FT3 #### [facility] [address] [place] [address] Dr. Mendel Herron Monocytes/100 WBC (Bld) 7.2 % Normal 1.7-12.0 [facility] Comment on above: Performed By: #### L IPID, CMP, T4, TSH, FT3 #### [facility] [address] [place] [address] Dr. Mendel Herron NEUT # 8.6 103/ul Critically high 1.4-6.5 [facility] Comment on above: Performed By: #### L IPID, CMP, T4, TSH, FT3 #### [facility] [address] [place] [address] Dr. Mendel Herron Neutrophils/100 WBC (Bld) 69.4 % Normal 43.0-75.0 [facility] Comment on above: Performed By: #### L IPID, CMP, T4, TSH, FT3 #### [facility] [address] [place] [address] Dr. Mendel Herron Platelet mean volume (Bld) [Entitic vol] 9.9 fL Normal 9.5-13.5 [facility] Comment on above: Performed By: #### L IPID, CMP, T4, TSH, FT3 #### [facility] [address] [place] [address] Dr. Mendel Herron PLT 297 103/ul Normal 150-450 [facility] Comment on above: Performed By: #### L IPID, CMP, T4, TSH, FT3 #### [facility] [address] [place] [address] Dr. Mendel Herron RBC 4.22 106/ul Normal 4.20-5.40 [facility] Comment on above: Performed By: #### L IPID, CMP, T4, TSH, FT3 #### [facility] [address] [place] [address] Dr. Mendel Herron WBC 12.4 103/ul Critically high 4.0-11.0 [facility] Comment on above: Performed By: #### L IPID, CMP, T4, TSH, FT3 #### [facility] [address] [place] [address] Dr. Mendel Herron CRPon 10-28-2022 CRP 1.3 mg/dL Critically high <=1.0 [facility] Comment on above: Performed By: #### L IPID, CMP, T4, TSH, FT3 #### [facility] [address] [place] [address] Dr. Mendel Herron PROF CHEM 8 (BAS METB)on Anion gap [Moles/Vol] 13.6 mmol/L Normal [facility] Comment on above: Performed By: #### L IPID, CMP, T4, TSH, FT3 #### [facility] [address] [place] [address] Dr. Mendel Herron Calcium [Mass/Vol] 9.3 mg/dL Normal 8.5-10.1 [facility] Comment on above: Performed By: #### L IPID, CMP, T4, TSH, FT3 #### [facility] [address] [place] [address] Dr. Mendel Herron Chloride [Moles/Vol] 102 mmol/L Normal 98-107 [facility] Comment on above: Performed By: #### L IPID, CMP, T4, TSH, FT3 #### [facility] [address] [place] [address] Dr. Mendel Herron CO2 [Moles/Vol] 30.7 mmol/L Normal 21.0-32.0 [facility] Comment on above: Performed By: #### L IPID, CMP, T4, TSH, FT3 #### [facility] [address] [place] [address] Dr. Mendel Herron Creatinine [Mass/Vol] 0.85 mg/dL Normal 0.55-1.02 [facility] Comment on above: Performed By: #### L IPID, CMP, T4, TSH, FT3 #### [facility] [address] [address] [address] Mendel Herron EGFR-AF HAITIAN >60 Normal >=60 [facility] Comment on above: Performed By: #### L IPID, CMP, T4, TSH, FT3 #### [facility] [address] [address] [address] Mendel Herron EGFR-NON AF HAITIAN >60 Normal >=60 [facility] Comment on above: Performed By: #### L IPID, CMP, T4, TSH, FT3 #### [facility] [address] [address] [address] Mendel Herron Glucose [Mass/Vol] 101 mg/dL Normal 74-106 [facility] Comment on above: Performed By: #### L IPID, CMP, T4, TSH, FT3 #### [facility] [address] [address] [address] Mendel Herron Potassium [Moles/Vol] 3.3 mmol/L Critically low 3.5-5.1 [facility] Comment on above: Performed By: #### L IPID, CMP, T4, TSH, FT3 #### [facility] [address] [address] [address] Mendel Herron Sodium [Moles/Vol] 143 mmol/L Normal 136-145 [facility] Comment on above: Performed By: #### L IPID, CMP, T4, TSH, FT3 #### [facility] [address] [address] [address] Mendel Herron Urea nitrogen [Mass/Vol] 12.0 mg/dL Normal 7.0-18.0 [facility] Comment on above: Performed By: #### L IPID, CMP, T4, TSH, FT3 #### [facility] [address] [address] [address] Mendel Herron Urea nitrogen/Creatinine [Mass ratio] 14.1 mg/mg Normal [facility] Comment on above: Performed By: #### L IPID, CMP, T4, TSH, FT3 #### [facility] [address] [address] [address] Mendel Herron URIC ACID SERUMon 10-28-2022 Urate [Mass/Vol] 7.8 mg/dL Critically high 2.6-6.0 [facility] Comment on above: Performed By: #### L IPID, CMP, T4, TSH, FT3 #### [facility] [address] [id number] Mendel Herron XR TOES RT MIN [...] GAIL PELLETIER Date: 2022-10-28 20:53 Normal [facility] SARS-CoV-2 (COVID-19) RNA DEIRDRE+probe Ql (Unsp spec) Not detected Normal NOT DETECTED [facility] Comment on above: Result Comment: When diagnostic [...] this test is supported by the Community [employer] Coordinator of Health and Human Service's declaration that [...] L IPID, CMP, T4, TSH, FT3 #### [facility] [address] [place] [address] Dr. Mendel Herron CBC AUTO DIFFon 09-09-2022 BASO # 0.1 103/ul Normal 0.0-0.1 [facility] Comment on above: Performed By: #### L IPID, CMP, T4, TSH, FT3 #### [facility] [address] [place] [address] Dr. Mendel Herron Basophils/100 WBC (Bld) 0.7 % Normal 0.2-2.0 [facility] Comment on above: Performed By: #### L IPID, CMP, T4, TSH, FT3 #### [facility] [address] [place] [address] Dr. Mendel Herron EO # 0.1 103/ul Normal 0.0-0.7 [facility] Comment on above: Performed By: #### L IPID, CMP, T4, TSH, FT3 #### [facility] [address] [place] [address] Dr. Mendel Herron Eosinophils/100 WBC (Bld) 0.7 % Critically low 0.9-7.0 [facility] Comment on above: Performed By: #### L IPID, CMP, T4, TSH, FT3 #### [facility] [address] [place] [address] Dr. Mendel Herron Erythrocyte distribution width (RBC) [Ratio] 13.1 % Normal 11.0-15.0 [facility] Comment on above: Performed By: #### L IPID, CMP, T4, TSH, FT3 #### [facility] [address] [place] [address] Dr. Mendel Herron Hematocrit (Bld) [Volume fraction] 43.7 % Normal 36.0-48.0 [facility] Comment on above: Performed By: #### L IPID, CMP, T4, TSH, FT3 #### [facility] [address] [place] [address] Dr. Mendel Herron Hemoglobin (Bld) [Mass/Vol] 14.4 g/dL Normal 12.0-16.0 [facility] Comment on above: Performed By: #### L IPID, CMP, T4, TSH, FT3 #### [facility] [address] [place] [address] Dr. Mendel Herron IG # 0.11 10e3/ul Critically high 0.00-0.03 [facility] Comment on above: Performed By: #### L IPID, CMP, T4, TSH, FT3 #### [facility] [address] [place] [address] Dr. Mendel Herron IG % 1.3 % Critically high 0.0-0.5 [facility] Comment on above: Performed By: #### L IPID, CMP, T4, TSH, FT3 #### [facility] [address] [place] [address] Dr. Mendel Herron LYMPH # 2.4 103/ul Normal 1.2-3.8 [facility] Comment on above: Performed By: #### L IPID, CMP, T4, TSH, FT3 #### [facility] [address] [place] [address] Dr. Mendel Herron Lymphocytes/100 WBC (Bld) 27.9 % Normal 20.5-60.0 [facility] Comment on above: Performed By: #### L IPID, CMP, T4, TSH, FT3 #### [facility] [address] [place] [address] Dr. Mendel Herron MANUAL DIFF REQ NO Normal [facility] Comment on above: Performed By: #### L IPID, CMP, T4, TSH, FT3 #### [facility] [address] [place] [address] Dr. Mendel Herron MCH (RBC) [Entitic mass] 31.0 pg Normal 26.7-34.0 [facility] Comment on above: Performed By: #### L IPID, CMP, T4, TSH, FT3 #### [facility] [address] [place] [address] Dr. Mendel Herron MCHC (RBC) [Mass/Vol] 33.0 g/dL Normal 29.9-35.2 [facility] Comment on above: Performed By: #### L IPID, CMP, T4, TSH, FT3 #### [facility] [address] [place] [address] Dr. Mendel Herron MCV (RBC) [Entitic vol] 94.0 fL Normal 81.0-99.0 [facility] Comment on above: Performed By: #### L IPID, CMP, T4, TSH, FT3 #### [facility] [address] [place] [address] Dr. Mendel Herron MONO # 0.5 103/ul Normal 0.3-0.8 [facility] Comment on above: Performed By: #### L IPID, CMP, T4, TSH, FT3 #### [facility] [address] [place] [address] Dr. Mendel Herron Monocytes/100 WBC (Bld) 6.0 % Normal 1.7-12.0 [facility] Comment on above: Performed By: #### L IPID, CMP, T4, TSH, FT3 #### [facility] [address] [place] [address] Dr. Mendel Herron NEUT # 5.4 103/ul Normal 1.4-6.5 [facility] Comment on above: Performed By: #### L IPID, CMP, T4, TSH, FT3 #### [facility] [address] [place] [address] Dr. Mendel Herron Neutrophils/100 WBC (Bld) 63.4 % Normal 43.0-75.0 [facility] Comment on above: Performed By: #### L IPID, CMP, T4, TSH, FT3 #### [facility] [address] [place] [address] Dr. Mendel Herron Platelet mean volume (Bld) [Entitic vol] 9.8 fL Normal 9.5-13.5 [facility] Comment on above: Performed By: #### L IPID, CMP, T4, TSH, FT3 #### [facility] [address] [place] [address] Dr. Mendel Herron PLT 398 103/ul Normal 150-450 [facility] Comment on above: Performed By: #### L IPID, CMP, T4, TSH, FT3 #### [facility] [address] [address] [address] Menedl Herron RBC 4.65 106/ul Normal 4.20-5.40 [facility] Comment on above: Performed By: #### L IPID, CMP, T4, TSH, FT3 #### [facility] [address] [address] [address] Mendel Herron WBC 8.6 103/ul Normal 4.0-11.0 [facility] Comment on above: Performed By: #### L IPID, CMP, T4, TSH, FT3 #### [facility] [address] [place] [address] Dr. Mendel Herron FREE T3on 09-09-2022 FREE T3 2.59 pg/mlL Normal 2.18-3.98 [facility] Comment on above: Performed By: #### L IPID, CMP, T4, TSH, FT3 #### [facility] [address] [place] [address] Dr. Mendel Herron GLYCOHEMOGLOBIN A1Con 2022 ADA RECOMMENDATION SEE BELOW Normal [facility] Comment on above: Result Comment: ADA RECOMMENDED LIMIT 4.0 - 6.0 ADA THERAPEUTIC TARGET < 7.0 ACTION SUGGESTED > 7.0 Performed By: #### A 1C #### [facility] [address] [place] [address] Dr. Mendel Herron Glucose [Mass/Vol] 120 mg/dL Normal [facility] Comment on above: Performed By: #### A 1C #### [facility] [address] [place] [address] Dr. Mendel Herron HbA1c (Bld) [Mass fraction] 5.8 % Normal 4.5-6.2 [facility] Comment on above: Performed By: #### A 1C #### [facility] [address] [place] [address] Dr. Mendel Herron LIPID PROFILEon 09-09-2022 CHOL-HDL RATIO NORM SEE BELOW Normal [facility] Comment on above: Result Comment: 3.3 - 4.4 LOW RISK 4.4 - 7.1 AVERAGE RISK 7.1 - 11.0 MODERATE RISK >11.0 HIGH RISK Performed By: #### L IPID, CMP, T4, TSH, FT3 #### [facility] [address] [address] [address] Mendel Herron Cholesterol [Mass/Vol] 308 mg/dL Critically high <=200 [facility] Comment on above: Performed By: #### L IPID, CMP, T4, TSH, FT3 #### [facility] [address] [address] [address] Mendel Herron Cholesterol in HDL [Mass/Vol] 46 mg/dL Normal 40-60 [facility] Comment on above: Performed By: #### L IPID, CMP, T4, TSH, FT3 #### [facility] [address] [place] [address] Dr. Mendel Herron Cholesterol in LDL [Mass/Vol] 212.6 mg/dL Normal [facility] Comment on above: Performed By: #### L IPID, CMP, T4, TSH, FT3 #### [facility] [address] [address] [address] Mendel Herron Cholesterol.total/Ch olesterol in HDL [Mass ratio] 6.7 {ratio} Normal [facility] Comment on above: Performed By: #### L IPID, CMP, T4, TSH, FT3 #### [facility] [address] [place] [address] Dr. Mendel Herron HDL NORMAL > or = 60 mg/dl - LOW CARDIOVASCULAR RISK <40 mg/dl - HIGH CARDIOVASCULAR RISK Normal [facility] Comment on above: Performed By: #### L IPID, CMP, T4, TSH, FT3 #### [facility] [address] [place] [address] Dr. Mendel Herron LDL CALC NORMAL SEE BELOW Normal [facility] Comment on above: Result Comment: <100 mg/dl OPTIMAL 100 - 129 mg/dl NEAR OR ABOVE OPTIMAL 130 - 159 mg/dl BORDERLINE HIGH 160 - 189 mg/dl HIGH >190 mg/dl VERY HIGH Performed By: #### L IPID, CMP, T4, TSH, FT3 #### [facility] [address] [address] [address] Mendel Herron Triglyceride [Mass/Vol] 247 mg/dL Critically high <=150 [facility] Comment on above: Performed By: #### L IPID, CMP, T4, TSH, FT3 #### [facility] [address] [address] [address] Mendel Herron VLDL CALC 49.4 mg/dL Normal [facility] Comment on above: Performed By: #### L IPID, CMP, T4, TSH, FT3 #### [facility] [address] [address] [address] Mendel Herron PROF 14(COMP METB)on 023 Albumin [Mass/Vol] 4.0 g/dL Normal 3.4-5.0 [facility] Comment on above: Performed By: #### L IPID, CMP, T4, TSH, FT3 #### [facility] [address] [place] [address] Dr. Mendel Herron Albumin/Globulin [Mass ratio] 0.9 {ratio} Normal [facility] Comment on above: Performed By: #### L IPID, CMP, T4, TSH, FT3 #### [facility] [address] [place] [address] Dr. Mendel Herron ALP [Catalytic activity/Vol] 115 U/L Normal 46-116 [facility] Comment on above: Performed By: #### L IPID, CMP, T4, TSH, FT3 #### [facility] [address] [address] [address] Mendel Herrno ALT [Catalytic activity/Vol] 30 U/L Normal 14-59 [facility] Comment on above: Performed By: #### L IPID, CMP, T4, TSH, FT3 #### [facility] [address] [address] [address] Mendel Herron Anion gap [Moles/Vol] 12.7 mmol/L Normal [facility] Comment on above: Performed By: #### L IPID, CMP, T4, TSH, FT3 #### [facility] [address] [place] [address] Dr. Mendel Herron AST [Catalytic activity/Vol] 18 U/L Normal 15-37 [facility] Comment on above: Performed By: #### L IPID, CMP, T4, TSH, FT3 #### [facility] [address] [place] [address] Dr. Mendel Herron Bilirubin [Mass/Vol] 0.7 mg/dL Normal 0.2-1.0 [facility] Comment on above: Performed By: #### L IPID, CMP, T4, TSH, FT3 #### [facility] [address] [address] [address] Mendel Herron Calcium [Mass/Vol] 9.7 mg/dL Normal 8.5-10.1 [facility] Comment on above: Performed By: #### L IPID, CMP, T4, TSH, FT3 #### [facility] [address] [address] [address] Mendel Herron Chloride [Moles/Vol] 103 mmol/L Normal 98-107 [facility] Comment on above: Performed By: #### L IPID, CMP, T4, TSH, FT3 #### [facility] [address] [place] [address] Dr. Mendel Herron CO2 [Moles/Vol] 26.5 mmol/L Normal 21.0-32.0 [facility] Comment on above: Performed By: #### L IPID, CMP, T4, TSH, FT3 #### [facility] [address] [place] [address] Dr. Mendel Herron Creatinine [Mass/Vol] 0.83 mg/dL Normal 0.55-1.02 [facility] Comment on above: Performed By: #### L IPID, CMP, T4, TSH, FT3 #### [facility] [address] [place] [address] Dr. Mendel Herron EGFR-AF HAITIAN >60 Normal >=60 [facility] Comment on above: Performed By: #### L IPID, CMP, T4, TSH, FT3 #### [facility] [address] [address] [address] Mendel Herron EGFR-NON AF HAITIAN >60 Normal >=60 [facility] Comment on above: Performed By: #### L IPID, CMP, T4, TSH, FT3 #### [facility] [address] [address] [address] Mendel Herron Globulin (S) [Mass/Vol] 4.4 g/dL Normal [facility] Comment on above: Performed By: #### L IPID, CMP, T4, TSH, FT3 #### [facility] [address] [address] [address] Mendel Herron Glucose [Mass/Vol] 97 mg/dL Normal 74-106 [facility] Comment on above: Performed By: #### L IPID, CMP, T4, TSH, FT3 #### [facility] [address] [place] [address] Dr. Mendel Herron Potassium [Moles/Vol] 4.2 mmol/L Normal 3.5-5.1 [facility] Comment on above: Performed By: #### L IPID, CMP, T4, TSH, FT3 #### [facility] [address] [address] [address] Mendel Herron Protein [Mass/Vol] 8.4 g/dL Critically high 6.4-8.2 [facility] Comment on above: Performed By: #### L IPID, CMP, T4, TSH, FT3 #### [facility] [address] [address] [address] Mendel Herron Sodium [Moles/Vol] 138 mmol/L Normal 136-145 [facility] Comment on above: Performed By: #### L IPID, CMP, T4, TSH, FT3 #### [facility] [address] [place] [address] Dr. Mendel Herron Urea nitrogen [Mass/Vol] 12.0 mg/dL Normal 7.0-18.0 [facility] Comment on above: Performed By: #### L IPID, CMP, T4, TSH, FT3 #### [facility] [address] [address] [address] Mendel Herron Urea nitrogen/Creatinine [Mass ratio] 14.5 mg/mg Normal [facility] Comment on above: Performed By: #### L IPID, CMP, T4, TSH, FT3 #### [facility] [id number] Mendel Herron T4on 09-09-2022 T4 [Mass/Vol] 8.80 ug/dL Normal 4.80-13.90 [facility] Comment on above: Performed By: #### L IPID, CMP, T4, TSH, FT3 #### [facility] [address] [address] [address] Mendel Herron TSHon 09-09-2022 TSH 0.898 uIU/mL Normal 0.358-3.740 [facility] Comment on above: Performed By: #### L IPID, CMP, T4, TSH, FT3 #### [facility] [address] [address] [address] Mendel Herrno VITAMIN D 25 OHon 09-09-2022 VIT D 25-OH 24.0 ng/mL Normal [facility] Comment on above: Performed By: #### L IPID, CMP, T4, TSH, FT3 #### [facility] [address] [place] [address] Dr. Mendel Herron VIT D RANGES SEE BELOW Normal [facility] Comment on above: Result Comment: <20 ng/mL Vit D deficient 20 - <30 ng/mL Vit D insufficient 30 - 100 ng/mL Vit D sufficient >100 ng/mL Potential Toxicity Performed By: #### L IPID, CMP, T4, TSH, FT3 #### [facility] [address] [address] [address] Mendel Herron NM HEPATOBILIARY SCAN W EFon 08-20-2022 NM [...] VIVI GARY Date: 2022-08-20 16:07 Normal [facility] US SINGLE QUAD RT UPPERon US SINGLE [...] JEAN LOPES Date: 2022-08-11 15:50 Normal [facility] CARDIAC SUBHA ADMITon 023 CK [Catalytic activity/Vol] 30 U/L Normal 26-192 [facility] Comment on above: Performed By: #### L IPID, CMP, T4, TSH, FT3 #### [facility] [address] [place] [address] Dr. Mendel Herron CK.MB [Mass/Vol] 1.02 ng/mL Normal <=3.60 [facility] Comment on above: Performed By: #### L IPID, CMP, T4, TSH, FT3 #### [facility] [address] [place] [address] Dr. Mendel Herron HSTROP 32.8 pg/mL Normal 4.0-51.3 [facility] Comment on above: Result Comment: CUT- OFF POINTS HAVE BEEN ESTABLISHED BASED ON THE FOURTH UNIVERSAL DEFINITIONS OF MYOCARDIAL INFARCTION. THE UPPER REFERENCE LIMIT (URL) OF TROPONIN, DEFINED THE 99TH PERCENTILE OF cTnI DISTRIBUTION IN A REFERENCE POPULATION, HAS BEEN CONFIRMED THE DECISION THRESHOLD FOR LA DIAGNOSIS. Performed By: #### L IPID, CMP, T4, TSH, FT3 #### [facility] [address] [place] [address] Dr. Mendel Herron SONYA 23 ng/mL Normal 9-82 [facility] Comment on above: Performed By: #### L IPID, CMP, T4, TSH, FT3 #### [facility] [address] [place] [address] Dr. Mendel Herron CBC AUTO DIFFon 08-09-2022 BASO # 0.0 103/ul Normal 0.0-0.1 [facility] Comment on above: Performed By: #### L IPID, CMP, T4, TSH, FT3 #### [facility] [address] [place] [address] Dr. Mendel Herron Basophils/100 WBC (Bld) 0.3 % Normal 0.2-2.0 [facility] Comment on above: Performed By: #### L IPID, CMP, T4, TSH, FT3 #### [facility] [address] [place] [address] Dr. Mendel Herron EO # 0.0 103/ul Normal 0.0-0.7 [facility] Comment on above: Performed By: #### L IPID, CMP, T4, TSH, FT3 #### [facility] [address] [place] [address] Dr. Mendel Herron Eosinophils/100 WBC (Bld) 0.3 % Critically low 0.9-7.0 [facility] Comment on above: Performed By: #### L IPID, CMP, T4, TSH, FT3 #### [facility] [address] [place] [address] Dr. Mendel Herron Erythrocyte distribution width (RBC) [Ratio] 13.1 % Normal 11.0-15.0 [facility] Comment on above: Performed By: #### L IPID, CMP, T4, TSH, FT3 #### [facility] [address] [place] [address] Dr. Mendel Herron Hematocrit (Bld) [Volume fraction] 42.7 % Normal 36.0-48.0 [facility] Comment on above: Performed By: #### L IPID, CMP, T4, TSH, FT3 #### [facility] [address] [place] [address] Dr. Mendel Herron Hemoglobin (Bld) [Mass/Vol] 15.4 g/dL Normal 12.0-16.0 [facility] Comment on above: Performed By: #### L IPID, CMP, T4, TSH, FT3 #### [facility] [address] [place] [address] Dr. Mendel Herron IG # 0.05 10e3/ul Critically high 0.00-0.03 [facility] Comment on above: Performed By: #### L IPID, CMP, T4, TSH, FT3 #### [facility] [address] [place] [address] Dr. Mendel Herron IG % 0.4 % Normal 0.0-0.5 [facility] Comment on above: Performed By: #### L IPID, CMP, T4, TSH, FT3 #### [facility] [address] [place] [address] Dr. Mendel Herron LYMPH # 2.5 103/ul Normal 1.2-3.8 [facility] Comment on above: Performed By: #### L IPID, CMP, T4, TSH, FT3 #### [facility] [address] [place] [address] Dr. Mendel Herron Lymphocytes/100 WBC (Bld) 21.2 % Normal 20.5-60.0 [facility] Comment on above: Performed By: #### L IPID, CMP, T4, TSH, FT3 #### [facility] [address] [place] [address] Dr. Mendel Herron MANUAL DIFF REQ NO Normal [facility] Comment on above: Performed By: #### L IPID, CMP, T4, TSH, FT3 #### [facility] [address] [place] [address] Dr. Mendel Herron MCH (RBC) [Entitic mass] 31.7 pg Normal 26.7-34.0 [facility] Comment on above: Performed By: #### L IPID, CMP, T4, TSH, FT3 #### [facility] [address] [place] [address] Dr. Mendel Herron MCHC (RBC) [Mass/Vol] 36.1 g/dL Critically high 29.9-35.2 [facility] Comment on above: Performed By: #### L IPID, CMP, T4, TSH, FT3 #### [facility] [address] [place] [address] Dr. Mendel Herron MCV (RBC) [Entitic vol] 87.9 fL Normal 81.0-99.0 [facility] Comment on above: Performed By: #### L IPID, CMP, T4, TSH, FT3 #### [facility] [address] [place] [address] Dr. Mendel Herron MONO # 0.7 103/ul Normal 0.3-0.8 [facility] Comment on above: Performed By: #### L IPID, CMP, T4, TSH, FT3 #### [facility] [address] [place] [address] Dr. Mendel Herron Monocytes/100 WBC (Bld) 6.3 % Normal 1.7-12.0 [facility] Comment on above: Performed By: #### L IPID, CMP, T4, TSH, FT3 #### [facility] [address] [address] [address] Mendel Herron NEUT # 8.4 103/ul Critically high 1.4-6.5 [facility] Comment on above: Performed By: #### L IPID, CMP, T4, TSH, FT3 #### [facility] [address] [address] [address] Mendel Herron Neutrophils/100 WBC (Bld) 71.5 % Normal 43.0-75.0 [facility] Comment on above: Performed By: #### L IPID, CMP, T4, TSH, FT3 #### [facility] [address] [address] [address] Mendel Herron Platelet mean volume (Bld) [Entitic vol] 9.8 fL Normal 9.5-13.5 [facility] Comment on above: Performed By: #### L IPID, CMP, T4, TSH, FT3 #### [facility] [address] [address] [address] Mendel Herron PLT 374 103/ul Normal 150-450 [facility] Comment on above: Performed By: #### L IPID, CMP, T4, TSH, FT3 #### [facility] [address] [address] [address] Mendel Herron RBC 4.86 106/ul Normal 4.20-5.40 [facility] Comment on above: Performed By: #### L IPID, CMP, T4, TSH, FT3 #### [facility] [address] [address] [address] Mendel Herron WBC 11.7 103/ul Critically high 4.0-11.0 [facility] Comment on above: Performed By: #### L IPID, CMP, T4, TSH, FT3 #### [facility] [address] [place] [address] HEAD WO CONon [...] HELLEN VELAZQUEZ Date: 2022-08-09 15:23 Normal [facility] Covid-19 PCR ([facility])on 07-20 SARS-CoV-2 (COVID-19) RNA DEIRDRE+probe Ql (Unsp spec) Not detected Normal NOT DETECTED [facility] Comment on above: Result Comment: When diagnostic [...] this test is supported by the Community [employer] Coordinator of Health and Human Service's declaration that [...] L IPID, CMP, T4, TSH, FT3 #### [facility] [address] [place] [address] Dr. Mendel Herron ER URINE PROFILEon 3 Bilirubin Ql (U) Negative Normal NEGATIVE [facility] Comment on above: Performed By: #### L IPID, CMP, T4, TSH, FT3 #### [facility] [address] [address] [address] Mendel Herron Clarity (U) CLEAR Normal CLEAR [facility] Comment on above: Performed By: #### L IPID, CMP, T4, TSH, FT3 #### [facility] [address] [address] [address] Mendel Herron Color (U) LT. YELLOW Normal YELLOW [facility] Comment on above: Performed By: #### L IPID, CMP, T4, TSH, FT3 #### [facility] [address] [address] [address] Mendel Herron ERUAHYocasta A micrscopic examination will be performed if indicated. Normal [facility] Comment on above: Performed By: #### L IPID, CMP, T4, TSH, FT3 #### [facility] [address] [place] [address] Dr. Mendel Herron Glucose Ql (U) Negative Normal NEGATIVE [facility] Comment on above: Performed By: #### L IPID, CMP, T4, TSH, FT3 #### [facility] [address] [place] [address] Dr. Mendel Herron Hemoglobin Ql (U) TRACE-INTACT Abnormal NEGATIVE [facility] Comment on above: Performed By: #### L IPID, CMP, T4, TSH, FT3 #### [facility] [address] [place] [address] Dr. Mendel Herron Ketones Ql (U) Negative Normal NEGATIVE [facility] Comment on above: Performed By: #### L IPID, CMP, T4, TSH, FT3 #### [facility] [address] [place] [address] Dr. Mendel Herron LEUKOCYTES Negative Normal NEGATIVE [facility] Comment on above: Performed By: #### L IPID, CMP, T4, TSH, FT3 #### [facility] [address] [address] [address] Mendel Herron Nitrite Ql (U) Negative Normal NEGATIVE [facility] Comment on above: Performed By: #### L IPID, CMP, T4, TSH, FT3 #### [facility] [address] [place] [address] Dr. Mendel Herron pH (U) 5.0 [pH] Normal 5-9 [facility] Comment on above: Performed By: #### L IPID, CMP, T4, TSH, FT3 #### [facility] [address] [place] [address] Dr. Mendel Herron SPEC GRAVITY 1.015 Normal 1.005-<=1.025 [facility] Comment on above: Performed By: #### L IPID, CMP, T4, TSH, FT3 #### [facility] [address] [address] [address] Mendel Herron UA PROTEIN Negative Normal NEGATIVE/ TRACE [facility] Comment on above: Performed By: #### L IPID, CMP, T4, TSH, FT3 #### [facility] [address] [place] [address] Dr. Mendel Herron UR MICRO IND INDICATED Normal [facility] Comment on above: Performed By: #### L IPID, CMP, T4, TSH, FT3 #### [facility] [address] [place] [address] Dr. Mendel Herron Urobilinogen Qn (U) 0.2 {James'U}/dL Normal 0.2 - 1. 0 [facility] Comment on above: Performed By: #### L IPID, CMP, T4, TSH, FT3 #### [facility] [address] [place] [address] Dr. Mendel Herron LIPASEon 08-09-2022 Lipase [Catalytic activity/Vol] 114.0 U/L Normal 73.0-393.0 [facility] Comment on above: Performed By: #### L IPA, BMP, CMADM #### [facility] [address] [place] [address] Dr. Mendel Herron PROF CHEM 8 (BAS METB)on Anion gap [Moles/Vol] 18.9 mmol/L Normal [facility] Comment on above: Performed By: #### L IPA, BMP, CMADM #### [facility] [address] [place] [address] Dr. Mendel Herron Calcium [Mass/Vol] 9.4 mg/dL Normal 8.5-10.1 [facility] Comment on above: Performed By: #### L IPA, BMP, CMADM #### [facility] [address] [address] [address] Mendel Herron Chloride [Moles/Vol] 97 mmol/L Critically low 98-107 [facility] Comment on above: Performed By: #### L IPA, BMP, CMADM #### [facility] [address] [address] [address] Mendel Herron CO2 [Moles/Vol] 26.0 mmol/L Normal 21.0-32.0 [facility] Comment on above: Performed By: #### L IPA, BMP, CMADM #### [facility] [address] [address] [address] Mendel Herron Creatinine [Mass/Vol] 0.85 mg/dL Normal 0.55-1.02 [facility] Comment on above: Performed By: #### L IPA, BMP, CMADM #### [facility] [address] [address] [address] Mendel Herron EGFR-AF HAITIAN >60 Normal >=60 [facility] Comment on above: Performed By: #### L IPA, BMP, CMADM #### [facility] [address] [place] [address] Dr. Mendel Herron EGFR-NON AF HAITIAN >60 Normal >=60 [facility] Comment on above: Performed By: #### L IPA, BMP, CMADM #### [facility] [address] [address] [address] Mendel Herron Glucose [Mass/Vol] 120 mg/dL Critically high 74-106 [facility] Comment on above: Performed By: #### L IPA, BMP, CMADM #### [facility] [address] [address] [address] Mendel Herron Potassium [Moles/Vol] 3.9 mmol/L Normal 3.5-5.1 [facility] Comment on above: Performed By: #### L IPA, BMP, CMADM #### [facility] [address] [address] [address] Mendel Herron Sodium [Moles/Vol] 138 mmol/L Normal 136-145 [facility] Comment on above: Performed By: #### L IPA, BMP, CMADM #### [facility] [address] [address] [address] Mendel Herron Urea nitrogen [Mass/Vol] 17.0 mg/dL Normal 7.0-18.0 [facility] Comment on above: Performed By: #### L IPA, BMP, CMADM #### [facility] [address] [address] [address] Mendel Herron Urea nitrogen/Creatinine [Mass ratio] 20.0 mg/mg Normal [facility] Comment on above: Performed By: #### L IPA, BMP, CMADM #### [facility] [address] [place] [address] Dr. Mendel Herron TROPONIN, HIGH SENSITIVITYon 08-09-2022 HSTROP 32.5 pg/mL Normal 4.0-51.3 [facility] Comment on above: Result Comment: CUT- OFF POINTS HAVE BEEN ESTABLISHED BASED ON THE FOURTH UNIVERSAL DEFINITIONS OF MYOCARDIAL INFARCTION. THE UPPER REFERENCE LIMIT (URL) OF TROPONIN, DEFINED THE 99TH PERCENTILE OF cTnI DISTRIBUTION IN A REFERENCE POPULATION, HAS BEEN CONFIRMED THE DECISION THRESHOLD FOR LA DIAGNOSIS. Performed By: #### L IPID, CMP, T4, TSH, FT3 #### [facility] [address] [place] [address] Dr. Mendel Herron URINE MICROSCOPIC ONLYon BACTERIA NONE SEEN Normal NONE SEEN [facility] Comment on above: Performed By: #### L IPID, CMP, T4, TSH, FT3 #### [facility] [address] [address] [address] Mendel Herron Bacteria identified Cx Nom (U) NOT INDICATED Normal [facility] Comment on above: Performed By: #### L IPID, CMP, T4, TSH, FT3 #### [facility] [address] [place] [address] Dr. Mendel Herron CAST NONE SEEN Normal NONE SEEN [facility] Comment on above: Performed By: #### L IPID, CMP, T4, TSH, FT3 #### [facility] [address] [address] [address] Mendel Herron Crystals LM Nom (Urine sed) NONE SEEN Normal NONE SEEN [facility] Comment on above: Performed By: #### L IPID, CMP, T4, TSH, FT3 #### [facility] [address] [place] [address] Dr. Mendel Herron Epithelial cells LM Ql (Urine sed) NONE SEEN Normal NONE SEEN /RARE [facility] Comment on above: Performed By: #### L IPID, CMP, T4, TSH, FT3 #### [facility] [address] [place] [address] Dr. Mendel Herron MUCOUS NONE SEEN Normal NONE SEEN [facility] Comment on above: Performed By: #### L IPID, CMP, T4, TSH, FT3 #### [facility] [address] [place] [address] Dr. Mendel Herron RBC 0-2 Normal 0-2 [facility] Comment on above: Performed By: #### L IPID, CMP, T4, TSH, FT3 #### [facility] [address] [place] [address] Dr. Mendel Herron WBC NONE SEEN Normal NONE SEEN [facility] Comment on above: Performed By: #### L IPID, CMP, T4, TSH, FT3 #### [facility] [address] [place] [address] Dr. Mendel Herron XR CHEST 1 Von [...] MARY DIETZ Date: 2022-08-09 15:18 Normal [facility] H PYLORI ANTIBODY IGGon - H. PYLORI IGG ABS 0.11 Index Value Normal 0.00-0.79 [facility] Comment on above: Result Comment: Nega tive <0.80 Equivocal 0.80 - 0.89 Positive >0.89 Performed By: #### L IPID, CMP, T4, TSH, FT3 #### [facility] [address] [place] [address] Dr. Mendel Herron AMYLASEon 08-06-2022 Amylase [Catalytic activity/Vol] 57 U/L Normal 25-115 [facility] Comment on above: Performed By: #### L IPID, CMP, T4, TSH, FT3 #### [facility] [address] [place] [address] Dr. Mendel Herron CBC AUTO DIFFon 08-06-2022 BASO # 0.1 103/ul Normal 0.0-0.1 [facility] Comment on above: Performed By: #### L IPID, CMP, T4, TSH, FT3 #### [facility] [address] [place] [address] Dr. Mendel Herron Basophils/100 WBC (Bld) 0.7 % Normal 0.2-2.0 [facility] Comment on above: Performed By: #### L IPID, CMP, T4, TSH, FT3 #### [facility] [address] [place] [address] Dr. Mendel Herron EO # 0.1 103/ul Normal 0.0-0.7 [facility] Comment on above: Performed By: #### L IPID, CMP, T4, TSH, FT3 #### [facility] [address] [place] [address] Dr. Mendel Herron Eosinophils/100 WBC (Bld) 0.5 % Critically low 0.9-7.0 [facility] Comment on above: Performed By: #### L IPID, CMP, T4, TSH, FT3 #### [facility] [address] [place] [address] Dr. Mendel Herron Erythrocyte distribution width (RBC) [Ratio] 13.7 % Normal 11.0-15.0 [facility] Comment on above: Performed By: #### L IPID, CMP, T4, TSH, FT3 #### [facility] [address] [place] [address] Dr. Mendel Herron Hematocrit (Bld) [Volume fraction] 46.2 % Normal 36.0-48.0 [facility] Comment on above: Performed By: #### L IPID, CMP, T4, TSH, FT3 #### [facility] [address] [place] [address] Dr. Mendel Herron Hemoglobin (Bld) [Mass/Vol] 15.1 g/dL Normal 12.0-16.0 [facility] Comment on above: Performed By: #### L IPID, CMP, T4, TSH, FT3 #### [facility] [address] [place] [address] Dr. Mendel Herron IG # 0.06 10e3/ul Critically high 0.00-0.03 [facility] Comment on above: Performed By: #### L IPID, CMP, T4, TSH, FT3 #### [facility] [address] [place] [address] Dr. Mendel Herron IG % 0.6 % Critically high 0.0-0.5 [facility] Comment on above: Performed By: #### L IPID, CMP, T4, TSH, FT3 #### [facility] [address] [place] [address] Dr. Mendel Herron LYMPH # 2.5 103/ul Normal 1.2-3.8 [facility] Comment on above: Performed By: #### L IPID, CMP, T4, TSH, FT3 #### [facility] [address] [place] [address] Dr. Mendel Herron Lymphocytes/100 WBC (Bld) 23.4 % Normal 20.5-60.0 [facility] Comment on above: Performed By: #### L IPID, CMP, T4, TSH, FT3 #### [facility] [address] [place] [address] Dr. Mendel Herron MANUAL DIFF REQ NO Normal [facility] Comment on above: Performed By: #### L IPID, CMP, T4, TSH, FT3 #### [facility] [address] [place] [address] Dr. Mendel Herron MCH (RBC) [Entitic mass] 31.4 pg Normal 26.7-34.0 [facility] Comment on above: Performed By: #### L IPID, CMP, T4, TSH, FT3 #### [facility] [address] [place] [address] Dr. Mendel Herron MCHC (RBC) [Mass/Vol] 32.7 g/dL Normal 29.9-35.2 [facility] Comment on above: Performed By: #### L IPID, CMP, T4, TSH, FT3 #### [facility] [address] [place] [address] Dr. Mendel Herron MCV (RBC) [Entitic vol] 96.0 fL Normal 81.0-99.0 [facility] Comment on above: Performed By: #### L IPID, CMP, T4, TSH, FT3 #### [facility] [address] [place] [address] Dr. Mendel Herron MONO # 0.6 103/ul Normal 0.3-0.8 [facility] Comment on above: Performed By: #### L IPID, CMP, T4, TSH, FT3 #### [facility] [address] [place] [address] Dr. Mendel Herron Monocytes/100 WBC (Bld) 6.0 % Normal 1.7-12.0 [facility] Comment on above: Performed By: #### L IPID, CMP, T4, TSH, FT3 #### [facility] [address] [place] [address] Dr. Mendel Herron NEUT # 7.4 103/ul Critically high 1.4-6.5 [facility] Comment on above: Performed By: #### L IPID, CMP, T4, TSH, FT3 #### [facility] [address] [place] [address] Dr. Mendel Herron Neutrophils/100 WBC (Bld) 68.8 % Normal 43.0-75.0 [facility] Comment on above: Performed By: #### L IPID, CMP, T4, TSH, FT3 #### [facility] [address] [address] [address] Mendel Herron Platelet mean volume (Bld) [Entitic vol] 9.7 fL Normal 9.5-13.5 [facility] Comment on above: Performed By: #### L IPID, CMP, T4, TSH, FT3 #### [facility] [address] [address] [address] Mendel Herron PLT 331 103/ul Normal 150-450 [facility] Comment on above: Performed By: #### L IPID, CMP, T4, TSH, FT3 #### [facility] [address] [address] [address] Mendel Herron RBC 4.81 106/ul Normal 4.20-5.40 [facility] Comment on above: Performed By: #### L IPID, CMP, T4, TSH, FT3 #### [facility] [address] [place] [address] Dr. Mendel Herron WBC 10.7 103/ul Normal 4.0-11.0 [facility] Comment on above: Performed By: #### L IPID, CMP, T4, TSH, FT3 #### [facility] [address] [place] [address] HEAD WO CONon [...] by: JEAN LOPES Date: 2022-08-06 08:39 Normal [facility] LIPASEon 08-06-2022 Lipase [Catalytic activity/Vol] 125.0 U/L Normal 73.0-393.0 [facility] Comment on above: Performed By: #### L IPID, CMP, T4, TSH, FT3 #### [facility] [address] [place] [address] Dr. Mendel Herron PROF 14(COMP METB)on 023 Albumin [Mass/Vol] 3.7 g/dL Normal 3.4-5.0 [facility] Comment on above: Performed By: #### L IPID, CMP, T4, TSH, FT3 #### [facility] [address] [address] [address] Mendel Herron Albumin/Globulin [Mass ratio] 0.9 {ratio} Normal [facility] Comment on above: Performed By: #### L IPID, CMP, T4, TSH, FT3 #### [facility] [address] [place] [address] Dr. Mendel Herron ALP [Catalytic activity/Vol] 110 U/L Normal 46-116 [facility] Comment on above: Performed By: #### L IPID, CMP, T4, TSH, FT3 #### [facility] [address] [place] [address] Dr. Mendel Herron ALT [Catalytic activity/Vol] 25 U/L Normal 14-59 [facility] Comment on above: Performed By: #### L IPID, CMP, T4, TSH, FT3 #### [facility] [address] [address] [address] Mendel Herron Anion gap [Moles/Vol] 14.0 mmol/L Normal [facility] Comment on above: Performed By: #### L IPID, CMP, T4, TSH, FT3 #### [facility] [address] [place] [address] Dr. Mendel Herron AST [Catalytic activity/Vol] 16 U/L Normal 15-37 [facility] Comment on above: Performed By: #### L IPID, CMP, T4, TSH, FT3 #### [facility] [address] [address] [address] Mendel Herron Bilirubin [Mass/Vol] 0.6 mg/dL Normal 0.2-1.0 [facility] Comment on above: Performed By: #### L IPID, CMP, T4, TSH, FT3 #### [facility] [address] [place] [address] Dr. Mendel Herron Calcium [Mass/Vol] 9.3 mg/dL Normal 8.5-10.1 [facility] Comment on above: Performed By: #### L IPID, CMP, T4, TSH, FT3 #### [facility] [address] [place] [address] Dr. Mendel Herron Chloride [Moles/Vol] 103 mmol/L Normal 98-107 [facility] Comment on above: Performed By: #### L IPID, CMP, T4, TSH, FT3 #### [facility] [address] [place] [address] Dr. Mendel Herron CO2 [Moles/Vol] 27.3 mmol/L Normal 21.0-32.0 [facility] Comment on above: Performed By: #### L IPID, CMP, T4, TSH, FT3 #### [facility] [address] [place] [address] Dr. Mendel Herron Creatinine [Mass/Vol] 0.71 mg/dL Normal 0.55-1.02 [facility] Comment on above: Performed By: #### L IPID, CMP, T4, TSH, FT3 #### [facility] [address] [place] [address] Dr. Mendel Herron EGFR-AF HAITIAN >60 Normal >=60 [facility] Comment on above: Performed By: #### L IPID, CMP, T4, TSH, FT3 #### [facility] [address] [place] [address] Dr. Mendel Herron EGFR-NON AF HAITIAN >60 Normal >=60 [facility] Comment on above: Performed By: #### L IPID, CMP, T4, TSH, FT3 #### [facility] [address] [place] [address] Dr. Mendel Herron Globulin (S) [Mass/Vol] 4.3 g/dL Normal [facility] Comment on above: Performed By: #### L IPID, CMP, T4, TSH, FT3 #### [facility] [address] [address] [address] Mendel Herron Glucose [Mass/Vol] 102 mg/dL Normal 74-106 [facility] Comment on above: Performed By: #### L IPID, CMP, T4, TSH, FT3 #### [facility] [address] [place] [address] Dr. Mendel Herron Potassium [Moles/Vol] 4.3 mmol/L Normal 3.5-5.1 [facility] Comment on above: Performed By: #### L IPID, CMP, T4, TSH, FT3 #### [facility] [address] [place] [address] Dr. Mendel Herron Protein [Mass/Vol] 8.0 g/dL Normal 6.4-8.2 [facility] Comment on above: Performed By: #### L IPID, CMP, T4, TSH, FT3 #### [facility] [address] [place] [address] Dr. Mendel Herron Sodium [Moles/Vol] 140 mmol/L Normal 136-145 [facility] Comment on above: Performed By: #### L IPID, CMP, T4, TSH, FT3 #### [facility] [address] [place] [address] Dr. Mendel Herron Urea nitrogen [Mass/Vol] 19.0 mg/dL Critically high 7.0-18.0 [facility] Comment on above: Performed By: #### L IPID, CMP, T4, TSH, FT3 #### [facility] [address] [place] [address] Dr. Mendel Herron Urea nitrogen/Creatinine [Mass ratio] 26.8 mg/mg Normal [facility] Comment on above: Performed By: #### L IPID, CMP, T4, TSH, FT3 #### [facility] [address] [place] [address] Dr. Mendel Herron Covid-19 PCR (CVDTB)on 06-19 SARS-CoV-2 (COVID-19) RNA DEIRDRE+probe Ql (Unsp spec) Not detected Normal NOT DETECTED [facility] Comment on above: Result Comment: This test is not yet approved or cleared by the [place] FDA. When there are no FDA-approved or cleared tests available, and other criteria are met, FDA can make tests available under an emergency access mechanism called an Emergency Use Authorization (EUA). The EUA for this test is supported by the [employer] Coord[employer] of Health and Human Service's (HHS's) declaration [...] SARS-CoV-2. Performed By: #### C VDTBH #### [facility] [address] [place] [address] Dr. Mendel Herron INFLUENZA A [facility] B [facility] 07[facility] Normal [facility] Comment on above: Result Comment: Nega tive for Flu A protein angiten. Infection due to Flu A cannot be ruled out. Flu A angiten in the sample may be below the detection limit of the test. Performed By: #### L IPID, CMP, T4, TSH, FT3 #### [facility] [address] [place] [address] Dr. Mendel Herron INFLUBNEG SEE BELOW Normal [facility] Comment on above: Result Comment: Nega tive for Flu B protein antigen. Infection due to Flu B cannot be ruled out. Flu B antigen in the sample may be below the detection limit of the test. Performed By: #### L IPID, CMP, T4, TSH, FT3 #### [facility] [address] [place] [address] Dr. Mendel Herron INFLUENZA A AG Negative Normal NEGATIVE SEE COMMENT [facility] Comment on above: Performed By: #### L IPID, CMP, T4, TSH, FT3 #### [facility] [address], [place] [address] Dr. Mendel Herron INFLUENZA B AG Negative Normal NEGATIVE SEE COMMENT [facility] Comment on above: Performed By: #### L IPID, CMP, T4, TSH, FT3 #### [facility] [address] [address] [address] Mendel Herron Covid-19 PCR ([facility])on 04-19 SARS-CoV-2 (COVID-19) RNA DEIRDRE+probe Ql (Unsp spec) Not detected Normal NOT DETECTED [facility] Comment on above: Result Comment: This test is not yet approved or cleared by the [place] FDA. When there are no FDA-approved or cleared tests available, and other criteria are met, FDA can make tests available under an emergency access mechanism called an Emergency Use Authorization (EUA). The EUA for this test is supported by the [place] of Health and Human Service's (HHS's) declaration [...] L IPID, CMP, T4, TSH, FT3 #### [facility] [address], [place] [address] Dr. Mendel Herron INFLUENZA A AND B AGon 05-11 [facility] SEE BELOW Normal [facility] Comment on above: Result Comment: Nega tive for Flu A protein angiten. Infection due to Flu A cannot be ruled out. Flu A angiten in the sample may be below the detection limit of the test. Performed By: #### L IPID, CMP, T4, TSH, FT3 #### [facility] [address] [address] [address] Mendel Herron [facility] SEE BELOW Normal [facility] Comment on above: Result Comment: Nega tive for Flu B protein antigen. Infection due to Flu B cannot be ruled out. Flu B antigen in the sample may be below the detection limit of the test. Performed By: #### L IPID, CMP, T4, TSH, FT3 #### [facility] [address] [address] [address] Mendel Herron INFLUENZA A AG Negative Normal NEGATIVE SEE COMMENT [facility] Comment on above: Performed By: #### L IPID, CMP, T4, TSH, FT3 #### [facility] [address] [address] [address] Mendel Herron INFLUENZA B AG Negative Normal NEGATIVE SEE COMMENT [facility] Comment on above: Performed By: #### L IPID, CMP, T4, TSH, FT3 #### [facility] [address] [address] [address] Mendel Herron INTERNAL CONTROLS Within Normal Limits Normal Wi thin Normal Limits [facility] Comment on above: Performed By: #### L IPID, CMP, T4, TSH, FT3 #### [facility] [address] [address] [address] Mendel Herron Comprehensive Metabolic Empo n 12-23-2021 Albumin [Mass/Vol] 3.7 g/dL Normal 3.2-5.5 [facility] Comment on above: Performed By: #### E BS CMP, EBS LIPID #### [facility] [address] [place] [address] [place] Albumin/Globulin [Mass ratio] 1.0 {ratio} Normal [facility] Comment on above: Performed By: #### E BS CMP, EBS LIPID #### [facility] [address] [id number] [place] ALP [Catalytic activity/Vol] 159 U/L High 32-92 [facility] Comment on above: Performed By: #### E BS CMP, EBS LIPID #### [facility] [address] [place] [address] [place] ALT [Catalytic activity/Vol] 28 U/L Normal 10-60 [facility] Comment on above: Performed By: #### E BS CMP, EBS LIPID #### [facility] [address] AST [Catalytic activity/Vol] 27 U/L Normal 10-42 [facility] Comment on above: Performed By: #### E BS CMP, EBS LIPID #### [facility] [address] Bilirubin [Mass/Vol] 1.2 mg/dL Normal 0.3-1.2 [facility] Comment on above: Performed By: #### E BS CMP, EBS LIPID #### [address] Calcium [Mass/Vol] 9.2 mg/dL Normal 8.2-10.2 [facility] Comment on above: Performed By: #### E BS CMP, EBS LIPID #### [address] Chloride [Moles/Vol] 100 mmol/L Normal 95-114 [facility] Comment on above: Performed By: #### E BS CMP, EBS LIPID #### [address] CO2 [Moles/Vol] 20.6 mmol/L Low 22.0-30.0 [facility] Comment on above: Performed By: #### E BS CMP, EBS LIPID #### [facility] [address] [place] [address] Creatinine [Mass/Vol] 0.57 mg/dL Normal 0.44-1.03 [facility] Comment on above: Performed By: #### E BS CMP, EBS LIPID #### [facility] [address] [place] [address] [place] Estimated GFR ( Ni > 60 Normal [facility] Comment on above: Result Comment: GFR estimated reference range: According to KDOQI guidelines, <60 ml/min/1.73m2 is sufficient to diagnose a patient with chronic kidney disease. Performed By: #### E BS CMP, EBS LIPID #### [facility] [address] Estimated GFR (Non- Am > 60 Normal [facility] Comment on above: Performed By: #### E BS CMP, EBS LIPID #### [facility] [address] Globulin (S) [Mass/Vol] 3.7 g/dL Normal [facility] Comment on above: Performed By: #### E BS CMP, EBS LIPID #### [facility] [address] Glucose [Mass/Vol] 100 mg/dL Normal 70-100 [facility] Comment on above: Performed By: #### E BS CMP, EBS LIPID #### [facility] [address] Potassium [Moles/Vol] 3.9 mmol/L Normal 3.5-5.1 [facility] Comment on above: Performed By: #### E BS CMP, EBS LIPID #### [facility] [address] Protein [Mass/Vol] 7.4 g/dL Normal 6.1-7.9 [facility] Comment on above: Performed By: #### E BS CMP, EBS LIPID #### [facility] [address] Sodium [Moles/Vol] 135 mmol/L Low 136-146 [facility] Comment on above: Performed By: #### E BS CMP, EBS LIPID #### [facility] [address] [id number] [place] Urea nitrogen [Mass/Vol] 12 mg/dL Normal 9-23 [facility] Comment on above: Performed By: #### E BS CMP, EBS LIPID #### [facility] [address] [id number] [facility] Lipid Profileon 12-23-2021 Cholesterol [Mass/Vol] 213 mg/dL High 140-200 [facility] Comment on above: Result Comment: Chol less than 200 mg/dl low risk Chol 201-239 mg/dl borderline risk Chol 240 mg/dl and greater high risk Performed By: #### E BS CMP, EBS LIPID #### [facility] [address] [place] [address] Cholesterol in HDL [Mass/Vol] 36 mg/dL Normal 35-85 [facility] Comment on above: Result Comment: HDL CHOL ATP-III CLASSIFICATION Cardiovascular Risk HDL > or equal to 60 mg/dL LOW HDL < 40 mg/dL HIGH Performed By: #### E BS CMP, EBS LIPID #### [facility] [address] [place] [address] Cholesterol.total/Ch olesterol in HDL [Mass ratio] 5.9 {ratio} Normal <5.0 [facility] Comment on above: Result Comment: PERF ORMED BY: [place] [address] PATHOLOGIST BUNDLE CUTTER MARIBEL AGUILLON M.D. Performed By: #### E BS CMP, EBS LIPID #### [facility] [address] [place] [address] LDL Cholesterol,Calculat ed 151 mg/dL High 0-100 [facility] Comment on above: Result Comment: LDL ATP III CLASSIFICATION LDL less than 100 mg/dL Optimal LDL 100-129 mg/dL Near or above optimal LDL 130-159 mg/dL Borderline high LDL 160-189 mg/dL High LDL greater than 189 mg/dL Very high Performed By: #### E BS CMP, EBS LIPID #### [facility] [address] [place] [address] Triglyceride w/Reflex 129 mg/dL Normal 35-149 [facility] Comment on above: Result Comment: TRIG ATP III CLASSIFICATION TRIG less than 150 mg/dL Normal TRIG 150-199 mg/dL Borderline high TRIG 200-500 mg/dL High TRIG greater than 500 mg/dL Very high Standard traceable to the Center for Disease Conrtrol and Prevention (CDC) test method. Performed By: #### E BS CMP, EBS LIPID #### [facility] [address] VLDL CHOLESTEROL 25 mg/dL Normal [facility] Comment on above: Performed By: #### E BS CMP, EBS LIPID #### [facility] [address] [id number] [facility] Covid-19 PCR (CVDTB)on 11-16 SARS-CoV-2 (COVID-19) RNA DEIRDRE+probe Ql (Unsp spec) Detected Critically abnormal NOT DETECTED [facility] Comment on above: Result Comment: This test is not yet approved or cleared by the [place] FDA. When there are no FDA-approved or cleared tests available, and other criteria are met, FDA can make tests available under an emergency access mechanism called an Emergency Use Authorization (EUA). The EUA for this test is supported by the [place] of Health and Human Service's declaration that [...] used). Performed By: #### C VDTBH #### [facility] [address] [place] [address] Dr. Mendel Herron INFLUENZA A AND B AGon 12-02 [facility] SEE BELOW Normal [facility] Comment on above: Result Comment: Nega tive for Flu A protein angiten. Infection due to Flu A cannot be ruled out. Flu A angiten in the sample may be below the detection limit of the test. Performed By: #### L IPID, CMP, T4, TSH, FT3 #### [facility] [address] [place] [address] Dr. Mendel Herron INFLUBNEG SEE BELOW Normal [facility] Comment on above: Result Comment: Nega tive for Flu B protein antigen. Infection due to Flu B cannot be ruled out. Flu B antigen in the sample may be below the detection limit of the test. Performed By: #### L IPID, CMP, T4, TSH, FT3 #### [facility] [address] [place] [address] Dr. Mendel Herron INFLUENZA A AG Negative Normal NEGATIVE SEE COMMENT [facility] Comment on above: Performed By: #### L IPID, CMP, T4, TSH, FT3 #### [facility] [address], [place] [address] Dr. Mendel Herron INFLUENZA B AG Negative Normal NEGATIVE SEE COMMENT [facility] Comment on above: Performed By: #### L IPID, CMP, T4, TSH, FT3 #### [facility] [address], [place] [address] Dr. Mendel Herron INTERNAL CONTROLS Within Normal Limits Normal Wi thin Normal Limits [facility] Comment on above: Performed By: #### L IPID, CMP, T4, TSH, FT3 #### [facility] [address], [place] [address] Dr. Mendel Herron Cardiovascular Lab Reporton 08-18-2021 Cardiovascular Lab Report [facility] Patient Name: Antonio [facility] S MR #: [id number] Department of Physician: Curtis Martinez MD Medicine Service Date: 08/18/2021 Division of Birthdate: 1970 Cardiology Room #: Adult Cardiovascular Services [address] [address] Cardiovascular Laboratory Report ATRIAL FLUTTER ABLATION AND [...] ab (more content not included)... Normal [facility] BILL Antinuclear Antibodieson 04-23-2021 Antinuclear Abs, IFA Negative Normal . [facility] Comment on above: Result Comment: Nega tive <1:80 Borderline 1:80 Positive >1:80 ICAP nomenclature: AC-0 For more information about Hep-2 cell patterns use ANApatterns.org, the official website for the International Consensus on Antinuclear Antibody (BILL) Patterns (ICAP). Performed at: [facility] [address] [id number] Employment Coordinator: Ger Yen PhD, Phone: [phone] PERFORMED BY: [place] [address] PATHOLOGIST BUNDLE CUTTER MARIBEL AGUILLON M.D. Performed By: #### E SR, CRP, CBC, CREAT #### [address] #### BILL #### [facility] , C-Reactive Proteinon 021 C-Reactive Protein 0.7 mg/dL Normal 0.0-1.0 [facility] Comment on above: Result Comment: PERF ORMED BY: [place] [address] PATHOLOGIST BUNDLE CUTTER MARIBEL AUGILLON M.D. Performed By: #### E SR, CRP, CBC, CREAT #### [address] #### BILL #### [facility] , Complement C3on 04-23-2021 Complement C3 170 mg/dL High 82-167 [facility] Comment on above: Result Comment: Perf ormed at: [facility] [address] [address] Employment Coordinator: Ger Yen PhD, Phone: [phone] Performed By: #### A DDONUAPLUS #### [address] #### CH50, C3, C4 #### [facility] , Complement C4on 04-23-2021 Complement C4 14 mg/dL Normal 12-38 [facility] Comment on above: Performed By: #### A DDONUAPLUS #### [address] #### CH50, C3, C4 #### [facility] , Complement Total (CH50)on Complement Total (CH50) >60 Normal >41 [facility] Comment on above: Result Comment: [...] determine out of range values. Performed at: [address] [id number] Employment Coordinator: Ger Yen PhD, Phone: [phone] PERFORMED BY: [place] [address] PATHOLOGIST BUNDLE CUTTER MARIBEL AGUILLON M.D. Performed By: #### E BS CMP, EBS LIPID #### [address] Complete Blood Count Auto Di ffon 04-23-2021 Basophils (Bld) [#/Vol] 0.1 10*3/uL Normal 0.0-0.2 [facility] Comment on above: Performed By: #### E SR, CRP, CBC, CREAT #### [place] [address] [place] #### BILL #### [facility] , Basophils/100 WBC (Bld) 0.7 % Normal . [facility] Comment on above: Performed By: #### E SR, CRP, CBC, CREAT #### [facility] [address] [place] [address] #### BILL #### [facility] , Eosinophils (Bld) [#/Vol] 0.1 10*3/uL Normal 0.0-0.45 [facility] Comment on above: Performed By: #### E SR, CRP, CBC, CREAT #### [address] #### BILL #### [facility] , Eosinophils/100 WBC (Bld) 0.5 % Normal . [facility] Comment on above: Performed By: #### E SR, CRP, CBC, CREAT #### [place] [address] [place] #### BILL #### [facility] , Erythrocyte distribution width (RBC) [Ratio] 18.0 % High 11.9-15.3 [facility] Comment on above: Performed By: #### E SR, CRP, CBC, CREAT #### [facility] [address] [place] [address] [place] #### BILL #### [facility] , Hematocrit (Bld) [Volume fraction] 31.6 % Low 34.0-46.4 [facility] Comment on above: Performed By: #### E SR, CRP, CBC, CREAT #### [place] [address] [place] #### BILL #### [facility] , Hemoglobin (Bld) [Mass/Vol] 9.8 g/dL Low 11.8-15.4 [facility] Comment on above: Performed By: #### E SR, CRP, CBC, CREAT #### [facility] [address] [place] [address] [place] #### BILL #### [facility] , Lymphocytes (Bld) [#/Vol] 1.7 10*3/uL Normal 1.00-4.8 [facility] Comment on above: Performed By: #### E SR, CRP, CBC, CREAT #### [address] #### BILL #### [facility] , Lymphocytes/100 WBC (Bld) 15.0 % Normal . [facility] Comment on above: Performed By: #### E SR, CRP, CBC, CREAT #### [address] #### BILL #### [facility] , MCH (RBC) [Entitic mass] 24.8 pg Normal 24.7-34.3 [facility] Comment on above: Performed By: #### E SR, CRP, CBC, CREAT #### [place] [address] [place] #### BILL #### [facility] , MCV (RBC) [Entitic vol] 80.1 fL Normal 80-100 [facility] Comment on above: Performed By: #### E SR, CRP, CBC, CREAT #### [place] [address] [place] #### BILL #### [facility] , Mean Corpuscular HGB Conc 31.0 g/dL Low 32.0-35.0 [facility] Comment on above: Performed By: #### E SR, CRP, CBC, CREAT #### [address] #### BILL #### [facility] , Monocytes (Bld) [#/Vol] 0.5 10*3/uL Normal 0.0-0.8 [facility] Comment on above: Performed By: #### E SR, CRP, CBC, CREAT #### [place] [address] [place] #### BILL #### [facility] , Monocytes/100 WBC (Bld) 4.6 % Normal . [facility] Comment on above: Performed By: #### E SR, CRP, CBC, CREAT #### [address] #### BILL #### [facility] , Neutrophils (Bld) [#/Vol] 9.1 10*3/uL High 1.8-7.7 [facility] Comment on above: Performed By: #### E SR, CRP, CBC, CREAT #### [address] #### BILL #### [facility] , Neutrophils/100 WBC (Bld) 79.2 % Normal . [facility] Comment on above: Performed By: #### E SR, CRP, CBC, CREAT #### [place] [address] [place] #### BILL #### [facility] , Nucleated RBC/100 WBC (Bld) [Ratio] 0.1 % Normal 0-0.5 [facility] Comment on above: Performed By: #### E SR, CRP, CBC, CREAT #### [place] [address] [place] #### BILL #### [facility] , Platelet mean volume (Bld) [Entitic vol] 8.3 fL Normal 6.3-10.7 [facility] Comment on above: Performed By: #### E SR, CRP, CBC, CREAT #### [facility] [address] [place] [address] [place] #### BILL #### [facility] , Platelets (Bld) [#/Vol] 336 10*3/uL Normal 150-450 [facility] Comment on above: Performed By: #### E SR, CRP, CBC, CREAT #### [facility] [address] [place] [address] [place] #### BILL #### [facility] , RBC (Bld) [#/Vol] 3.94 10*6/uL Normal 3.60-5.00 [facility] Comment on above: Performed By: #### E SR, CRP, CBC, CREAT #### [facility] [address] [place] [address] [place] #### BILL #### [facility] , WBC (Bld) [#/Vol] 11.5 10*3/uL High 4.5-11.0 [facility] Comment on above: Performed By: #### E SR, CRP, CBC, CREAT #### [facility] [address] [place] [address] #### BILL #### [facility] , Creatinineon 04-23-2021 Creatinine [Mass/Vol] 0.75 mg/dL Normal 0.44-1.03 [facility] Comment on above: Performed By: #### E SR, CRP, CBC, CREAT #### [facility] [address] [place] [address] [place] #### BILL #### [facility] , Estimated GFR ( Ni > 60 Normal [facility] Comment on above: Result Comment: GFR estimated reference range: According to KDOQI guidelines, <60 ml/min/1.73m2 is sufficient to diagnose a patient with chronic kidney disease. Performed By: #### E SR, CRP, CBC, CREAT #### [facility] [address] [place] [address] #### BILL #### [facility] , Estimated GFR (Non- Am > 60 Normal [facility] Comment on above: Performed By: #### E SR, CRP, CBC, CREAT #### [facility] [address] [place] [address] #### BILL #### [facility] , Dipstick and Microscopicon 1 Appearance (U) Clear Normal Clear [facility] Comment on above: Order Comment: Name Collection Type:: Clean-Voided Midstream Performed By: #### A DDONUAPLUS #### [address] #### CH50, C3, C4 #### [facility] , Bacteria,Urine None Seen Normal None Seen [facility] Comment on above: Order Comment: Name Collection Type:: Clean-Voided Midstream Performed By: #### A DDONUAPLUS #### [facility] [address] [place] [address] #### CH50, C3, C4 #### [facility] , Bilirubin,Urine Negative Normal Negative [facility] Comment on above: Order Comment: Name Collection Type:: Clean-Voided Midstream Performed By: #### A DDONUAPLUS #### [facility] [address] [place] [address] #### CH50, C3, C4 #### [facility] , Color (U) Yellow Normal Yellow [facility] Comment on above: Order Comment: Name Collection Type:: Clean-Voided Midstream Performed By: #### A DDONUAPLUS #### [facility] [address] [place] [address] #### CH50, C3, C4 #### [facility] , Glucose Ql (U) 100 mg/dL High Normal [facility] Comment on above: Order Comment: Name Collection Type:: Clean-Voided Midstream Performed By: #### A DDONUAPLUS #### [address] #### CH50, C3, C4 #### [facility] , Hyaline Casts,Urine 0-8 Normal 0-8 [facility] Comment on above: Order Comment: Name Collection Type:: Clean-Voided Midstream Result Comment: PERF ORMED BY: [place] [address] PATHOLOGIST BUNDLE CUTTER MARIBEL AGUILLON M.D. Performed By: #### A DDONUAPLUS #### [address] #### CH50, C3, C4 #### [facility] , Ketones Ql (U) Negative Normal Negative [facility] Comment on above: Order Comment: Name Collection Type:: Clean-Voided Midstream Performed By: #### A DDONUAPLUS #### [address] #### CH50, C3, C4 #### [facility] , Leukocyte esterase Test strip Ql (U) Negative Normal Negative [facility] Comment on above: Order Comment: Name Collection Type:: Clean-Voided Midstream Performed By: #### A DDONUAPLUS #### [address] #### CH50, C3, C4 #### [facility] , Nitrite,Urine Negative Normal Negative [facility] Comment on above: Order Comment: Name Collection Type:: Clean-Voided Midstream Performed By: #### A DDONUAPLUS #### [address] #### CH50, C3, C4 #### [facility] , Occult Blood,Urine Negative Normal Negative [facility] Comment on above: Order Comment: Name Collection Type:: Clean-Voided Midstream Performed By: #### A DDONUAPLUS #### [address] #### CH50, C3, C4 #### [facility] , pH (U) 5.0 [pH] Normal 5.0-9.0 [facility] Comment on above: Order Comment: Name Collection Type:: Clean-Voided Midstream Performed By: #### A DDONUAPLUS #### [address] #### CH50, C3, C4 #### [facility] , Protein,Urine Negative Normal Negative [facility] Comment on above: Order Comment: Name Collection Type:: Clean-Voided Midstream Performed By: #### A DDONUAPLUS #### [address] #### CH50, C3, C4 #### [facility] , RBC,Urine None Seen Normal 0-4 [facility] Comment on above: Order Comment: Name Collection Type:: Clean-Voided Midstream Performed By: #### A DDONUAPLUS #### [address] #### CH50, C3, C4 #### [facility] , Specificy [place],Urine 1.009 Normal 1.001-1.030 [facility] Comment on above: Order Comment: Name Collection Type:: Clean-Voided Midstream Performed By: #### A DDONUAPLUS #### [address] #### CH50, C3, C4 #### [facility] , Squamous Epithelial Cell,Urine 0-1 Normal 0-2 [facility] Comment on above: Order Comment: Name Collection Type:: Clean-Voided Midstream Performed By: #### A DDONUAPLUS #### [address] #### CH50, C3, C4 #### [facility] , Urobilinogen,Urine Normal Normal Normal [facility] Comment on above: Order Comment: Name Collection Type:: Clean-Voided Midstream Performed By: #### A DDONUAPLUS #### [facility] [address] [place] [address] [place] #### CH50, C3, C4 #### [facility] , WBC LM.HPF (Urine sed) [#/Area] 0 /[HPF] Normal 0-4 [facility] Comment on above: Order Comment: Name Collection Type:: Clean-Voided Midstream Performed By: #### A DDONUAPLUS #### [address] #### CH50, C3, C4 #### [facility] , Erythrocyte Sedimentation Ra ryley 04-23-2021 ESR (Bld) [Velocity] 55 mm/h High 0-29 [facility] Comment on above: Result Comment: PERF ORMED BY: [place] [address] PATHOLOGIST BUNDLE CUTTER MARIBEL AGUILLON M.D. Performed By: #### E SR, CRP, CBC, CREAT #### [facility] [address] [place] [address] #### BILL #### [facility] , BASIC METABOLIC PANELon 03-20 Calcium [Mass/Vol] 8.7 mg/dL Normal 8.6-10.3 [facility] Comment on above: Order Comment: No: D o not add to previous draw Performed By: #### 5 7307, 18525 #### [facility] [address] [place] [address], [place] Chloride [Moles/Vol] 97 mmol/L Low 98-107 [facility] Comment on above: Order Comment: No: D o not add to previous draw Performed By: #### 5 73, 86443 #### [facility] [address] [place] [address], [place] CO2 [Moles/Vol] 36 mmol/L High 21-31 [facility] Comment on above: Order Comment: No: D o not add to previous draw Performed By: #### 5 7307, 00868 #### [facility] [address] [place] [address], [place] Creatinine [Mass/Vol] 0.74 mg/dL Normal 0.60-1.20 [facility] Comment on above: Order Comment: No: D o not add to previous draw Performed By: #### 5 7307, 79886 #### [facility] [address] [place] [address], [place] GFR/1.73 sq M.predicted among blacks MDRD (S/P/Bld) [Vol rate/Area] mL/min/{1.73_m2} Normal >60 [facility] Comment on above: Order Comment: No: D o not add to previous draw Performed By: #### 5 7307, 98382 #### [facility] [address] [place] [address], [place] GFR/1.73 sq M.predicted among non-blacks MDRD (S/P/Bld) [Vol rate/Area] mL/min/{1.73_m2} Normal >60 [facility] Comment on above: Order Comment: No: D o not add to previous draw Performed By: #### 5 7307, 21034 #### [facility] [address] [place] [address], [place] Glucose [Mass/Vol] 123 mg/dL High 70-100 [facility] Comment on above: Order Comment: No: D o not add to previous draw Performed By: #### 5 7307, 78277 #### [facility] [address] [place] [address], [place] Potassium [Moles/Vol] 4.3 mmol/L Normal 3.5-5.1 [facility] Comment on above: Order Comment: No: D o not add to previous draw Performed By: #### 5 7307, 08407 #### [facility] [address] [place] [address], [place] Sodium [Moles/Vol] 139 mmol/L Normal 136-145 [facility] Comment on above: Order Comment: No: D o not add to previous draw Performed By: #### 5 7307, 33245 #### [facility] [address] [place] [address], [facility] Urea nitrogen [Mass/Vol] 24 mg/dL Normal 7-25 [facility] Comment on above: Order Comment: No: D o not add to previous draw Performed By: #### 5 73, 99363 #### [facility] [address] [place] [address], [facility] CBC COMPLETE BLOOD COUNTon 0 04-11-2021 Erythrocyte distribution width (RBC) [Ratio] 16.8 % High 11.5-15.0 [facility] Comment on above: Order Comment: No: D o not add to previous draw Performed By: #### 5 7307, 99208 #### [facility] [address] [place] [address], [facility] Hematocrit (Bld) [Volume fraction] 29.7 % Low 36.0-45.0 [facility] Comment on above: Order Comment: No: D o not add to previous draw Performed By: #### 5 7307, 49971 #### [facility] [address] [place] [address], [facility] Hemoglobin (Bld) [Mass/Vol] 8.9 g/dL Low 12.0-15.0 [facility] Comment on above: Order Comment: No: D o not add to previous draw Performed By: #### 5 7307, 19413 #### [facility] [address] MCH (RBC) [Entitic mass] 25.4 pg Low 27.0-33.0 [facility] Comment on above: Order Comment: No: D o not add to previous draw Performed By: #### 5 7307, 16242 #### [facility] [address] [place] [id number], [facility] MCHC (RBC) [Mass/Vol] 30.0 g/dL Low 32.0-35.0 [facility] Comment on above: Order Comment: No: D o not add to previous draw Performed By: #### 5 7306, 64651 #### [facility] [address] [place] [address], [facility] MCV (RBC) [Entitic vol] 84.9 fL Normal 82.0-98.0 [facility] Comment on above: Order Comment: No: D o not add to previous draw Performed By: #### 5 73, 04099 #### [facility] [address] [place] [address], [facility] Nucleated RBC/100 WBC (Bld) [Ratio] 0 % Normal 0-0 [facility] Comment on above: Order Comment: No: D o not add to previous draw Performed By: #### 5 73, 88031 #### [facility] [address] [place] [address], [facility] PLAT CNT 446 10*3/uL High 150-400 [facility] Comment on above: Order Comment: No: D o not add to previous draw Performed By: #### 5 73, 33697 #### [facility] [address] [place] [address], [facility] RBC (Bld) [#/Vol] 3.50 10*6/uL Low 3.80-5.[address] [facility] Comment on above: Order Comment: No: D o not add to previous draw Performed By: #### 5 73, 55751 #### [facility] [address] [facility]. [address] WBC (Bld) [#/Vol] 16.54 10*3/uL High 4.00-10.60 [facility] Comment on above: Order Comment: No: D o not add to previous draw Performed By: #### 5 7307, 70264 #### [facility] [address] Cardiovascular Lab Reporton 04-11-2021 Cardiovascular Lab Report [facility] Patient Name: Antonio [facility] S MR #: [id number] Department of Physician: London Rodas M.D. Division of Service Date: 04/11/2021 Cardiology Birthdate: 1970 Adult Cardiovascular Room #: 5AB [id number] [place] [address] Cardiovascular Laboratory Report PROCEDURE PERFORMED: Transesophageal echocardiogram and cardioversion. INDICATION: Atrial flutter. FELLOW: Dunia Sierra MD PROCEDURE IN DETAIL: Informed consent was obtained from the patient after explaining the indication, risks, benefits, as well as alternatives. The patient understood and agreed, and signed the consent form. The patient was brought to the geophysical laboratory supervisor and transesophageal echocardiogram was performed, under conscious [...] by: Xiao Torres M.D. 04/28/2021 09:52 A Samer Brian, M.D. I was present for the entire procedure. Date Dict: 04/11/2021/12:10 P/Dunia Sierra MD Date Trans: 04/11/2021 12:53 P/siriao [id number] cc: Phillip Ann M.D. [address] [place] [address] Normal [facility] MAGNESIUM BLOODon 04-11-2021 Magnesium [Mass/Vol] 2.3 mg/dL Normal 1.9-2.7 [facility] Comment on above: Order Comment: No: D o not add to previous draw Performed By: #### 5 7307, 41923 #### [facility] [address] [place] [address], [facility] POC GLUCOSE LABon 04-11-2021 Glucose [Mass/Vol] 124 mg/dL High 70-100 [facility] Comment on above: Performed By: #### 5 7307, 67007 #### [facility] [address] [place] [address], [facility] TROPONIN-Ion 04-11-2021 Troponin I.cardiac [Mass/Vol] 0.06 ng/mL High 0.00-0.04 [facility] Comment on above: Order Comment: No: D o not add to previous draw Result Comment: REFE RENCE RANGES: 0.00 - 0.04 ng/ml NORMAL 0.05 - 0.50 ng/ml INDETERMINATE > 0.50 ng/ml CONSISTENT WITH AN M.I. Performed By: #### 5 7307, 15916 #### [facility] [address] [place] [address], [facility] *BLOOD CULTUREon 04-10-2021 *BLOOD CULTURE Clinical Report: (D) Specimen: BLOOD CULTURE Collected: 04/10/2021 09:50 Status: Final Last Updated: 04/15/2021 11:28 (1) Right hand CULT RES (Final) No Growth Day 5 Normal [facility] Comment on above: Order Comment: No: D o not add to previous draw Performed By: #### 5 7307, 66427 #### [facility] [address] *BLOOD CULTURE Clinical Report: (D) Specimen: BLOOD CULTURE Collected: 04/10/2021 09:50 Status: Final Last Updated: 04/15/2021 11:28 (1) Left hand CULT RES (Final) No Growth Day 5 Normal [facility] Comment on above: Order Comment: No: D o not add to previous draw Performed By: #### 5 7307, 27534 #### [facility] [address] [facility]. [address] *SARS-CoV-2 COVID-19on 04-10 SARS-CoV-2 (COVID-19) RNA DEIRDRE+probe Ql (Unsp spec) Not detected Normal Not Detected [facility] Comment on above: Order Comment: No: D o not add to previous draw Performed By: #### 5 7307, 23651 #### [facility] [address] APTTon 04-10-2021 aPTT Coag (Bld) [Time] 23.4 s Low 25.0-35.0 [facility] Comment on above: Order Comment: No: [...] THIS PURPOSE. Performed By: #### 5 7307, 00551 #### [facility] [address] aPTT Coag (Bld) [Time] 23.2 s Low 25.0-35.0 [facility] Comment on above: Order Comment: No: [...] THIS PURPOSE. Performed By: #### 5 7307, 53863 #### [facility] [address] BASIC METABOLIC PANELon - Calcium [Mass/Vol] 8.6 mg/dL Normal 8.6-10.3 [facility] Comment on above: Order Comment: No: D o not add to previous draw Performed By: #### 1 0070, 66287, 25037 #### [facility] [address] [place] [address], [facility] Chloride [Moles/Vol] 99 mmol/L Normal 98-107 [facility] Comment on above: Order Comment: No: D o not add to previous draw Performed By: #### 1 0070, 87375, 29918 #### [facility] [address] [place] [address], [facility] CO2 [Moles/Vol] 32 mmol/L High 21-31 [facility] Comment on above: Order Comment: No: D o not add to previous draw Performed By: #### 1 0070, 55494, 57628 #### [facility] [address] [place] [address], [facility] Creatinine [Mass/Vol] 0.84 mg/dL Normal 0.60-1.20 [facility] Comment on above: Order Comment: No: D o not add to previous draw Performed By: #### 1 0070, 68626, 26069 #### [facility] [address] [place] [address], [facility] GFR/1.73 sq M.predicted among blacks MDRD (S/P/Bld) [Vol rate/Area] mL/min/{1.73_m2} Normal >60 [facility] Comment on above: Order Comment: No: D o not add to previous draw Performed By: #### 1 0, 54533, 79352 #### [facility] [address] [place] [address], [place] GFR/1.73 sq M.predicted among non-blacks MDRD (S/P/Bld) [Vol rate/Area] mL/min/{1.73_m2} Normal >60 [facility] Comment on above: Order Comment: No: D o not add to previous draw Performed By: #### 1 0, 15000, 49789 #### [facility] [address] [place] [address], [place] Glucose [Mass/Vol] 117 mg/dL High 70-100 [facility] Comment on above: Order Comment: No: D o not add to previous draw Performed By: #### 1 0, 33924, 62693 #### [facility] [address] [place] [address], [place] Potassium [Moles/Vol] 3.9 mmol/L Normal 3.5-5.1 [facility] Comment on above: Order Comment: No: D o not add to previous draw Performed By: #### 1 0, 58666, 79725 #### [facility] [address] [place] [address], [place] Sodium [Moles/Vol] 139 mmol/L Normal 136-145 [facility] Comment on above: Order Comment: No: D o not add to previous draw Performed By: #### 1 0, 19279, 45161 #### [facility] [address] [place] [address], [place] Urea nitrogen [Mass/Vol] 19 mg/dL Normal 7-25 [facility] Comment on above: Order Comment: No: D o not add to previous draw Performed By: #### 1 0, 25232, 97653 #### [facility] [address] [facility]. [address] BNP (B-TYPE NATRIURETIC PEPT MARILYN)on 04-10-2021 Natriuretic peptide B (Bld) [Mass/Vol] 259 pg/mL High 0-100 [facility] Comment on above: Order Comment: No: D o not add to previous draw Result Comment: Give n the appropriate clinical setting a BNP result of >100 pg/mL indicates congestive heart failure. Performed By: #### 5 7307, 01812 #### [facility] [address] [facility] [place] [address], [facility] CBC W/DIFFon 04-10-2021 ABS IMM GRANS 1.1 10*3/uL High 0.0-0.2 [facility] Comment on above: Performed By: #### 5 0103 #### [facility] [address] [facility] [place] [address], [facility] ABS NEUTROPHILS 9.6 10*3/uL High 1.6-7.6 [facility] Comment on above: Performed By: #### 5 0103 #### [facility] [address] [place] [address], [facility] ANISO MODERATE Normal [facility] Comment on above: Performed By: #### 5 0103 #### [facility] [address] [facility] [place] [address], [facility] Basophils (Bld) [#/Vol] 0.1 10*3/uL Normal 0.0-0.2 [facility] Comment on above: Performed By: #### 5 0103 #### [facility] [address] [facility] [place] [address], [facility] Basophils/100 WBC (Bld) 0.7 % Normal 0.0-1.0 [facility] Comment on above: Performed By: #### 5 3 #### [facility] [address] [facility] [place] [address], [facility] Eosinophils (Bld) [#/Vol] 0.1 10*3/uL Normal 0.0-0.5 [facility] Comment on above: Performed By: #### 5 0103 #### [facility] [address] [facility]. [address] Eosinophils/100 WBC (Bld) 0.4 % Normal 0.0-6.0 [facility] Comment on above: Performed By: #### 5 0103 #### [facility] [address] [facility]. [address] Erythrocyte distribution width (RBC) [Ratio] 16.5 % High 11.5-15.0 [facility] Comment on above: Performed By: #### 5 0103 #### [facility] [address] [facility]. [address] Hematocrit (Bld) [Volume fraction] 31.2 % Low 36.0-45.0 [facility] Comment on above: Performed By: #### 5 0103 #### [facility] [address] [facility]. [address] Hemoglobin (Bld) [Mass/Vol] 9.0 g/dL Low 12.0-15.0 [facility] Comment on above: Performed By: #### 5 0103 #### [facility] [address] [place] [address], [facility] HYPO SLIGHT Normal [facility] Comment on above: Performed By: #### 5 0103 #### [facility] [address] [facility] [place] [address], [facility] IMMATURE GRANS 6.8 % High 0.0-1.0 The [facility] Comment on above: Performed By: #### 5 0103 #### [facility] [address] [place] [address], [facility] Lymphocytes (Bld) [#/Vol] 4.4 10*3/uL High 1.2-4.0 [facility] Comment on above: Performed By: #### 5 3 #### [facility] [address] [place] [address], [facility] Lymphocytes/100 WBC (Bld) 26.4 % Normal 20.0-45.0 [facility] Comment on above: Performed By: #### 5 3 #### [facility] [address] [place] [address], [facility] MCH (RBC) [Entitic mass] 25.3 pg Low 27.0-33.0 [facility] Comment on above: Performed By: #### 5 3 #### [facility] [address] [place] [address], [facility] MCHC (RBC) [Mass/Vol] 28.8 g/dL Low 32.0-35.0 [facility] Comment on above: Performed By: #### 5 3 #### [facility] [address] [place] [address], [facility] MCV (RBC) [Entitic vol] 87.6 fL Normal 82.0-98.0 [facility] Comment on above: Performed By: #### 5 102 #### [facility] [address] [place] [address], [facility] Monocytes (Bld) [#/Vol] 1.3 10*3/uL High 0.1-1.0 [facility] Comment on above: Performed By: #### 5 3 #### [facility] [address] [place] [address], [facility] MONOS 7.6 % Normal 5.0-12.0 [facility] Comment on above: Performed By: #### 5 3 #### [facility] [address] [place] [address], [facility] Neutrophils/100 WBC (Bld) 58.1 % Normal 40.0-72.0 [facility] Comment on above: Performed By: #### 102 #### [facility] [address] [place] [address], [facility] Nucleated RBC/100 WBC (Bld) [Ratio] 1 % High 0-0 [facility] Comment on above: Performed By: #### 5 0103 #### [facility] [address] [place] [address], [facility] PLAT CNT 483 10*3/uL High 150-400 [facility] Comment on above: Performed By: #### 5 0103 #### [facility] [address] [place] [address], [facility] POIK SLIGHT Normal [facility] Comment on above: Performed By: #### 5 0103 #### [facility] [address] [place] [address], [facility] POLY SLIGHT Normal [facility] Comment on above: Performed By: #### 5 0103 #### [facility] [address] [place] [address], [facility] RBC (Bld) [#/Vol] 3.56 10*6/uL Low 3.80-5.00 [facility] Comment on above: Performed By: #### 5 0103 #### [facility] [address] [place] [address], [facility] WBC (Bld) [#/Vol] 16.54 10*3/uL High 4.00-10.60 [facility] Comment on above: Performed By: #### 5 0103 #### [facility] [address] [facility] [place] [address], [facility] LIPID PROFILEon 04-10-2021 Cholesterol [Mass/Vol] 161 mg/dL Normal 120-200 [facility] Comment on above: Result Comment: CHOL ESTEROL REFERENCE RANGE: 20 YEARS AND OLDER CARDIOVASCULAR RISK Less than 200 mg/dl Low Risk 200 to 239 mg/dl Borderline Risk 240 mg/dl and greater High Risk Performed By: #### 3 1569, 99390, 78925 #### [facility] [address] [place] [address], [place] Cholesterol in HDL [Mass/Vol] 61 mg/dL Normal 23-92 [facility] Comment on above: Result Comment: Slig ht variation in normal range could be due to gender and/or age. HDL CHOLESTEROL REFERENCE RANGE: 20 years and older Cardiovascular Risk > or =60 mg/dL Desirable 40 TO 59 mg/dL Low Risk <40 mg/dL High Risk Performed By: #### 3 1569, 72686, 71117 #### [facility] [address] [place] [address], [place] Cholesterol in LDL [Mass/Vol] 28 mg/dL Normal 0-130 [facility] Comment on above: Result Comment: LDL IS A CALCULATION LDL IS ONLY VALID IF THE TRIG IS LESS THAN 400. Performed By: #### 3 1569, 71265, 69694 #### [facility] [address] [place] [address], [place] Cholesterol.total/Ch olesterol in HDL [Mass ratio] 2.6 {ratio} Normal .0-4.5 [facility] Comment on above: Performed By: #### 3 1569, 66315, 54734 #### [facility] [address] [place] [address], [place] NON-HDL CHOLESTEROL 100 mg/dL Normal [facility] Comment on above: Performed By: #### 3 1569, 25680, 04437 #### [facility] [address] [place] [address], [place] Triglyceride [Mass/Vol] 362 mg/dL High 40-149 [facility] Comment on above: Result Comment: TRIG LYCERIDE REFERENCE RANGE: 20 YEARS AND OLDER CARDIOVASCULAR RISK LESS THAN 150 mg/dl LOW RISK 150 TO 199 mg/dl BORDERLINE RISK 200 mg/dl AND GREATER HIGH RISK Performed By: #### 3 1569, 20793, 37593 #### [facility] [address] [place] [address], [facility] VLDL CHOL 72 mg/dL High 0-40 [facility] Comment on above: Performed By: #### 3 1569, [id number], [id number] #### [facility] [address] [place] [address], [facility] MAGNESIUM BLOODon 04-10-2021 Magnesium [Mass/Vol] 2.4 mg/dL Normal 1.9-2.7 [facility] Comment on above: Order Comment: No: D o not add to previous draw Performed By: #### 1 0070, [id number], [id number] #### [facility] [address] [place] [address], [facility] POC GLUCOSE LABon 04-10-2021 Glucose [Mass/Vol] 350 mg/dL High 70-100 [facility] Comment on above: Performed By: #### 5 [id number], [id number] #### [facility] [address] [place] [address], [facility] Glucose [Mass/Vol] 249 mg/dL High 70-100 [facility] Comment on above: Performed By: #### 5 [id number], [id number] #### [facility] [address] [place] [address], [facility] PROCALCITONINon 04-10-2021 PROCALCITONIN 0.09 ng/mL Normal 0.00-0.10 The [facility] Comment on above: Order Comment: No: D [...] initial PCT<0.5ng/mL Performed By: #### 5 [id number], [id number] #### [facility] [address] PROTHROMBIN TIMEon 1 INR Coag (PPP) [Relative time] 1.07 {INR} Normal 0.91-1.16 [facility] Comment on above: Order Comment: No: D o not add to previous draw Result Comment: ACCC P RECOMMENDED INR FOR WARFARIN THERAPY ------- ------- CONDITION INR PROPHYLAXIS OF VENOUS THROMBOSIS 2-3 (HIGH-RISK SURGERY) TREATMENT OF VENOUS THROMBOSIS 2-3 TREATMENT OF PULMONARY EMBOLISM 2-3 PREVENTION OF SYSTEMIC EMBOLISM: 2-3 ACUTE MYOCARDIAL INFARCTION TISSUE HEART VALVES VALVULAR HEART DISEASE ATRIAL FIBRILLATION RECURRENT SYSTEMIC EMBOLISM MECHANICAL HEART VALVE 2.5-3.5 FROM: ORAL ANTICOAGULANTS. MECHANISM OF ACTION, CLINICAL EFFECTIVENESS, AND OPTIMAL THERAPEUTIC RANGE. CHEST 1995;108:231S-246S. Performed By: #### 5 [id number], [id number] #### [facility] [address] [place] [address], [facility] PT Coag (PPP) [Time] 13.9 s Normal 12.3-14.8 [facility] Comment on above: Order Comment: No: D o not add to previous draw Result Comment: ALL RESULTS MUST BE INTERPRETED WITH RESPECT TO BLOOD DRAWING ARTIFACT OR DILUTION ERROR OF ANTICOAGULANT AT THE TIME OF SAMPLING. Performed By: #### 5 [id number], [id number] #### [facility] [address] [place] [address], [facility] TROPONIN-Ion 04-10-2021 Troponin I.cardiac [Mass/Vol] 0.07 ng/mL High 0.00-0.04 [facility] Comment on above: Order Comment: No: D o not add to previous draw Result Comment: REFE RENCE RANGES: 0.00 - 0.04 ng/ml NORMAL 0.05 - 0.50 ng/ml INDETERMINATE > 0.50 ng/ml CONSISTENT WITH AN M.I. Performed By: #### 3 1569, [id number], [id number] #### [facility] [address] [place] [address], [facility] Troponin I.cardiac [Mass/Vol] 0.07 ng/mL High 0.00-0.04 [facility] Comment on above: Order Comment: No: D o not add to previous draw Result Comment: REFE RENCE RANGES: 0.00 - 0.04 ng/ml NORMAL 0.05 - 0.50 ng/ml INDETERMINATE > 0.50 ng/ml CONSISTENT WITH AN M.I. Performed By: #### 1 0070, 85772, 07259 #### [facility] [address] [place] [address], [facility] TSH3 WITH REFLEX FT4on 04-10 TSH 3RD GENERATION 0.95 uIU/mL Normal 0.34-5.60 [facility] Comment on above: Order Comment: Yes: Add to Previous draw if able Performed By: #### 3 1569 #### [facility] [address] TSH 3RD GENERATION 3.12 uIU/mL Normal 0.34-5.[address] [facility] Comment on above: Performed By: #### 3 1569, 36403, 11750 #### [facility] [address] UFH HEPARIN ASSAYon 04-10-20 21 UNFRACTIONATED HEPARIN >1.00 Critically high 0.30-0.70 [facility] Comment on above: Result Comment: Resu lt checked and called. Accurately read back by Haven Avila RN at 1122 per RN patient may have previously been given Eliquis. UFH = 1.36 for pharmacy use Rivaroxaban and Apixaban will interfere with the anti Xa assay used to monitor UFH and LMWH. Performed By: #### 5 7307, [id number] #### [facility] [address] Cardiovascular Lab Reporton 01-30-2021 Cardiovascular Lab Report [facility] Patient Name: Antonio [facility] S MR #: [id number] Department of Physician: [place] Ross MRobbin Division of Service Date: 01/30/2021 Cardiology Birthdate: 1970 Adult Cardiovascular Room #: [place] [address] Cardiovascular Laboratory Report FINAL IMPRESSIONS: 1. Moderately [...] Follow up with Cardiology in the [facility] Cardiology office in the next 2 to [...] right internal jugular vein was obtained. A 6-Sami glide sheath was inserted without difficulty. A [...] Bear M.D. Date Trans: 01/30/2021 02:48 P/marixa [id number] cc: Phillip Ann M.D. [address] [facility] [address] [facility] Vital Signs Date Time Vital Sign Value Performing Clinician Iman stafford 09-15-2022 15:24-0500 Blood Pressure Location Juan Miguel OSHEATeodoro [facility] [place] 09-15-2022 15:24-0500 Diastolic blood pressure 78 mm[Hg] Juan Miguel DAYOL [facility] [place] 09-15-2022 15:24-0500 Heart rate 70 /min Juan Miguel NILL [facility] [place] 09-15-2022 15:24-0500 Respiratory rate 16 /min Juan Miguel NILL [facility] [place] 09-15-2022 15:24-0500 Systolic blood pressure 116 mm[Hg] Juan Miguel NILL [facility] [place] Encounters Encounter Date Encounter Type Care Provider Facility Start: 04-04-2024 ambulatory Juan Miguel Ortiz BRAD Facility : [place] Start: 01-11-2024 ambulatory [facility] Start: 12-28-2023 ambulatory [facility] Start: 10-26-2023 End: 10-26-2023 ambulatory JENNA [facility] Start: 05-05-2023 End: 05-05-2023 ambulatory STACY [facility] Start: 11-17-2022 End: 11-17-2022 ambulatory EMILY ZHONG . Facility:[facility] Start: 10-28-2022 End: 10-28-[address] PHILLIP ANN . Facility:[facility] Start: 09-24-2022 End: 09-24-[address] PHILLIP ANN . Facility:[facility] Start: 09-15-2022 End: 09-15-2022 Patient encounter procedure Juan Miguel SALINAS [facility] [place]uan M [place] Start: 09-09-2022 End: 09-10-[address] PHILLIP ANN . Facility:[facility] Start: 08-20-2022 End: 08-21-[address] PHILLIP ANN . Facility:[facility] Start: 08-11-2022 End: 08-12-[address] PHILLIP ANN . Facility:[facility] Start: 08-09-2022 End: 08-09-2022 ambulatory FABRICIO MI . Facility:[facility] Start: 08-06-2022 End: 08-07-[address] PHILLIP ANN . Facility:[facility] Start: 08-05-2022 End: 08-06-[address] PHILLIP ANN . Facility:[facility] Start: 07-16-2022 End: 07-16-[address] PHILLIP ANN . Facility:[facility] Start: 05-11-2022 End: 05-11-[address] PHILLIP ANN . Facility:[facility] Start: 12-02-2021 End: 12-02-[address] PHILLIP ANN . Facility: Start: 04-10-2021 End: 04-11-2021 Evaluation and management of inpatient PHILLIP ANN Facility:[facility] Start: 01-30-2021 End: 01-31-2021 [facility]ulatory [facility] Procedures Date Procedure Procedure Detail Performing Clinician Start: 04-11-2021 Baptism of Cardi ac Rhythm, Single SAMER Sony [...] Miguel SALINAS Ligation of fallopian tube Chiquis jana SALINAS Plan of Treatment Date Care Activity Detail Author Start: 12-02-2022 ambulatory Ambulatory Facility:[facility] 1 Immunizations Immunization Date Immunization Notes Care Provider Fa cility 04-18-2022 influenza virus vaccine, unspecified formulation Juan Miguel SALINAS [facility] [place] 10-29-2020 SARS-CoV-2 (COVID-19 ) mRNA-1273 vaccine Juan Miguel SALINAS [facility] [place] 10-25-2020 SARS-CoV-2 (COVID-19 ) mRNA BNT-162b2 vax Juan Miguel NILL [facility] [place] Comment on above: Result Comment: 2022: [id number] 10-24-2020 SARS-CoV-2 (COVID-19 ) mRNA BNT-162b2 vax Juan Miguel NILL [facility] 10-04-2020 SARS-CoV-2 (COVID-19 ) mRNA BNT-162b2 vax Juan Miguel NILL [facility] [place] Comment on above: Result Comment: 2022: TPV50 10-03-2020 SARS-CoV-2 (COVID-19 ) mRNA BNT-162b2 vax Juan Miguel NILL [facility] Payers Date Payer Category Payer Unknown [id number] 1970 Unknown [id number] 2.16.8 [id number] 1970 Unknown [id number] 2.16.8 40.1.133379.3.579.2.647 1970 Unknown [id number] 2.16.84 0.1.885086.3.579.2.593 1970 Unknown [id number] 2.16.84 0.1.794155.3.579.2.593 1970 Unknown [id number] 2.16.84 0.1.905993.3.579.2.593 1970 Unknown [id number] 2.16.84 0.1.601525.3.579.2.593 1970 Unknown [id number] 2.16.84 0.1.871843.3.579.2.593 1970 Unknown [id number] 2.16.84 0.1.233926.3.579.2.593 1970 Unknown [id number] 2.16.84 0.1.428916.3.579.2.593 1970 Unknown [id number] 2.16.84 0.1.053267.3.579.2.593 1970 Unknown [id number] 2.16.84 0.1.424313.3.579.2.593 1970 Unknown [id number] 2.16.84 0.1.055960.3.579.2.593 1970 Unknown [id number] 2.16.84 0.1.419647.3.579.2.593 1970 Unknown [id number] 2.16.84 0.1.054057.3.579.2.593 1968 Unknown [id number] 2.16.84 0.1.065398.3.579.2.593 1970 Unknown [id number] 2.16.8 40.1.429056.3.579.2.727 1961 Unknown [id number] 1961 Unknown [id number] 1961 Unknown [id number] 1961 Unknown [id number] Social History Date Type Detail Facility Start: 09-15-2022 Tobacco smoking status Ex-smoker (fi nding) [facility] [place] Tobacco smoking status Never [facility] [place] Sex Assigned At Female [facility] Medical Equipment Procedure Code Equipment Code Equipment Origin al Text Equipment Identifier Dates lancets, glucome ter, alcohol swabs, testing strips, insulin pen needles, Print Requisition, Supply Start: 08-25-2021 Functional Status Date Assessment Result Facility 09-15-2022 Functional Status N/A [facility] Progress note 10-26-2023 Note Date & Type [...] All other systems reviewed and are negative. [facility] Progress note 10-26-2023 Note Date & Type Note Facility 10-26-2023 Note Cardiovascular Medic ine [place] [facility] SUBJECTIVE Chief Complaint Patient presents with [...] trended upwards is a since seen in [place] [facility] 04/28/2023 and was diagnosed with vertigo [...] (paroxysmal atrial fi (more content not included)... [facility] Progress note 05-05-2023 Note Date & Type Note Facility 05-05-2023 Note [place] Cardiology Consul t Note Reason for visit: [...] trended upwards is a since seen in [place] [facility] 04/28/2023 and was diagnosed with vertigo [...] Take 1 table (more content not included)... [facility] Progress note 05-05-2023 Note Date & Type [...] All other systems reviewed and are negative. [facility] Clinical Note 11-17-2022 Note Date & Type [...] by: AUDREY BO Date: 2022-11-17 12:14 [facility] Discharge summary note 04-12-2021 Note Date & Type Note Facility 04-12-2021 Note MR#: [id number] [facility] Pt. Name: Diana Alvarez Admitted: 04/10/2021 Discharged: 04/11/2021 Date of : 1970 Physician: Albert Wick MD DISCHARGE SUMMARY PRIMARY DIAGNOSIS: New-onset atrial flutter with RVR. SECONDARY DIAGNOSES: 1. Pulmonary hypertension. 2. COPD. 3. Diabetes. HISTORY OF PRESENT ILLNESS: This patient is a 50-year-old female with past medical history of COPD, hypertension, and diabetes, who was sent from [facility] due to atrial flutter with RVR due to COPD exacerbation. The patient was initially treated with IV Cardizem, however, it was changed to p.o. prior to transfer. The patient was also given loading dose digoxin. The patient was transferred to [facility] for cardioversion. HOSPITAL COURSE: 1. [...] working on discharge planning. Electronically Signed by: Albert Wick MD 04/15/2021 08:24 A _ Albert Wick MD Date Dict: 04/12/2021/03:07 P/Albert Wick MD Date Trans: 04/12/2021 03:25 P/marixa [id number] cc: Phillip Ann M.D. [address] [place] [address] [facility] Evaluation + Plan note Note Date & Type Note Facility Evaluation + Plan note No data available for this section [facility] [place] [facility] Discharge instructions Note Date & Type Note Facility Hospital Discharge instructions No data available for this section [facility] [place] Progress note Note Date & Type Note Facility Progress note No data available for this section [facility] [place] Summary Purpose Family History No Family History Records FoundNo Family History Records FoundNo Family History Records FoundNo Family History Records FoundNo Family History Records Found Advance Directives No Advanced Directives Records FoundNo Advanced Directives Records FoundNo Advanced Directives Records FoundNo Advanced Directives Records FoundNo Advanced Directives Records Found Additional Source Comments INFORMATION SOURCE (unrecogn ized section and content) DATE CREATED AUTHOR 09/10/2021 [facility] DATE CREATED AUTHOR AUTHOR'S ORGANIZ ATION 12/24/2021 [facility] DATE CREATED AUTHOR AUTHOR'S ORGANIZ ATION 11/20/2022 [facility] DATE CREATED AUTHOR AUTHOR'S ORGANIZ ATION 02/02/2024 [facility] DATE CREATED AUTHOR AUTHOR'S ORGANIZ ATION 03/17/2024 [facility] Patient Care team informatio n (unrecognized section and content) Personnel Name: Phillip Ann MD Address: Address: [address] [place] [address] FOR RECORDS PERTAINING TO PATIENTS WHO ARE [...] BE BASED ON THE PRIMARY CLINICAL RECORDS. [facility] [employer] [facility]. provides no warranty or guarantee of the accuracy or completeness of information in this document.
== END 2024-03-25 07:55 | disposition home or self-care (01) ==
LOC: US 07:54
PROVIDERS: PCP Family Medicine; Visit Provider Family Medicine
DX: R10.11 Right upper quadrant pain (principal); M25.512 Pain in left shoulder; K80.20 Calculus of gallbladder without cholecystitis without obstruction; M19.012 Primary osteoarthritis, left shoulder
CPT/HCPCS: 73030; 74019; 74022; 76705

== ENCOUNTER 2024-04-05 21:10 | Emergency (ER) | payer OTHER, SELFPAY ==
--- OUTSIDE RECORDS SUMMARY | 2024-04-05 21:15 | XMS_ITS | CCD ---
Author Organization [facility] Care Team Providers Care Lead Mason Tender Name Role Phone ADAM BEARAB A Admitting Unavailable CASSY BEAR Attending Unavailable PHILLIP ANN Referring Unavailable PHILLIP ANN Primary Care Unavailable PHILLIP ANN Referring Unavailable XIAO TORRES Surgeon Unavailable ALBERT HUI Attending Unavailable CALLI PAIGE Admitting Unavailable UT Procedure Practitioner Unavailab PHILLIP Muñoz Primary Care Unavailable UT Procedure Practitioner Unavailab Dunia Light Surgeon Unavailsindhu e Phillip Ann Primary Care Physician MADELAINE ., DR FISHER Primary Care Unavailable HOY ., DR FISHER Consulting Unavailable HOY ., DR FISHER Admitting Unavailable HOY ., DR FISHER Attending Unavailable HOY ., DR FISHER Attending Unavailable HOY ., DR FISHRE Primary Care Unavailable HOY ., DR FISHER [...] Morphine; Translations: [MORPHINE] Drug Allergy 9 [facility] Repository (1 source) 02525,00; Translations: [14937,00] Propensity to adverse reactions (disorder) 0 [facility] Repository (1 source) Morphine; Translations: [morphine] Drug Allergy Feeling nervous (finding), Tachycardia (finding) General Surgery Neda (1 source) dulaglutide; Translations: [DULAGLUTIDE] Drug Allergy [facility] Repository (1 source) No Known Medication Allergies; Translations: [No Known Medication Allergies] Propensity to adverse reactions (disorder) 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 Thanks! Normal [facility] 01-11-2024 36 Pt calling with bp's 156/83 133/78 147/80 146/78 157/72 148/80 120/80 Normal [facility] 12-23-2023 36 Regarding echo performed on [...] weeks with readings. She verbalized understanding. Normal [facility] Telephoneon 12-23-2023 Telephone [id number] Diana Alvarez 1970 F Date Provider Department Center 12/23/2023 MIGUEL ROMANO TISH Red [facility] Family History Problem Relation Age of Onset Breast cancer Mother Aneurysm Mother Stroke Mother Heart attack Father Coronary artery disease Father Family Status - Relation Status Age at Mother Father [facility] 36on 11-10-2023 36 Call reference # [id number]. - Approval # [id number] approved from 11/05/23 - 01/04/24. [facility] Office Visiton 10-26-2023 Follow-up visit [id number] Diana Alvarez 1970 [facility] Provider Department Center 10/26/2023 JENNA ABREU TISH Red [facility] Family History Problem Relation Age of Onset Breast cancer Mother Aneurysm Mother Stroke Mother Heart attack Father Coronary artery disease Father Family Status - Relation Status Age at Mother Father Level of Service:98868 UT OFFICE/OUTPATIENT ESTABLISHED MOD MDM 30 MIN Reason for Visit and Comments: Atrial Flutter [101] Congestive Heart Failure [127] [facility] Office Visiton 05-05-2023 Follow-up visit [id number] Diana Alvarez 1970 [facility] Provider Department Center 05/05/2023 Lxami-STACY VILLALTA TISH Red [facility] Family History Problem Relation Age of Onset Breast cancer Mother Aneurysm Mother Stroke Mother Heart attack Father Coronary artery disease Father Family Status - Relation Status Age at Mother Father Level of Service:49259 UT OFFICE/OUTPATIENT ESTABLISHED MOD MDM 30-39 MIN [facility] CBC AUTO DIFFon 10-28-2022 BASO # 0.0 103/ul Normal 0.0-0.1 [facility] Comment on above: Performed By: #### L IPID, CMP, T4, TSH, FT3 #### [facility] [address] [place] [address] Dr. Mendel Herron Basophils/100 WBC (Bld) 0.2 % Normal 0.2-2.0 [facility] Comment on above: Performed By: #### L IPID, CMP, T4, TSH, FT3 #### [facility] [address] [place] [address] Dr. Mendel Herron EO # 0.0 103/ul Normal 0.0-0.7 [facility] Comment on above: Performed By: #### L IPID, CMP, T4, TSH, FT3 #### [facility] [address] [place] [address] Dr. Mendel Herron Eosinophils/100 WBC (Bld) 0.3 % Critically low 0.9-7.0 [facility] Comment on above: Performed By: #### L IPID, CMP, T4, TSH, FT3 #### [facility] [address] [place] [address] Dr. Mendel Herron Erythrocyte distribution width (RBC) [Ratio] 13.6 % Normal 11.0-15.0 [facility] Comment on above: Performed By: #### L IPID, CMP, T4, TSH, FT3 #### [facility] [address] [place] [address] Dr. Mendel Herron Hematocrit (Bld) [Volume fraction] 40.1 % Normal 36.0-48.0 [facility] Comment on above: Performed By: #### L IPID, CMP, T4, TSH, FT3 #### [facility] [address] [place] [address] Dr. Mendel Hreron Hemoglobin (Bld) [Mass/Vol] 13.0 g/dL Normal 12.0-16.0 [facility] Comment on above: Performed By: #### L IPID, CMP, T4, TSH, FT3 #### [facility] [address] [place] [address] Dr. Mendel Herron IG # 0.06 10e3/ul Critically high 0.00-0.03 [facility] Comment on above: Performed By: #### L IPID, CMP, T4, TSH, FT3 #### [facility] [address] [place] [address] Dr. Mendel Herron IG % 0.5 % Normal 0.0-0.5 [facility] Comment on above: Performed By: #### L IPID, CMP, T4, TSH, FT3 #### [facility] [address] [place] [address] Dr. Mendel Herron LYMPH # 2.8 103/ul Normal 1.2-3.8 [facility] Comment on above: Performed By: #### L IPID, CMP, T4, TSH, FT3 #### [facility] [address] [place] [address] Dr. Mendel Herron Lymphocytes/100 WBC (Bld) 22.4 % Normal 20.5-60.0 [facility] Comment on above: Performed By: #### L IPID, CMP, T4, TSH, FT3 #### [facility] [address] [place] [address] Dr. Mendel Herron MANUAL DIFF REQ NO Normal [facility] Comment on above: Performed By: #### L IPID, CMP, T4, TSH, FT3 #### [facility] [address] [place] [address] Dr. Mendel Herron MCH (RBC) [Entitic mass] 30.8 pg Normal 26.7-34.0 [facility] Comment on above: Performed By: #### L IPID, CMP, T4, TSH, FT3 #### [facility] [address] [place] [address] Dr. Mendel Herron MCHC (RBC) [Mass/Vol] 32.4 g/dL Normal 29.9-35.2 [facility] Comment on above: Performed By: #### L IPID, CMP, T4, TSH, FT3 #### [facility] [address] [place] [address] Dr. Mendel Herron MCV (RBC) [Entitic vol] 95.0 fL Normal 81.0-99.0 [facility] Comment on above: Performed By: #### L IPID, CMP, T4, TSH, FT3 #### [facility] [address] [place] [address] Dr. Mendel Herron MONO # 0.9 103/ul Critically high 0.3-0.8 [facility] Comment on above: Performed By: #### L IPID, CMP, T4, TSH, FT3 #### [facility] [address] [place] [address] Dr. Mendel Herron Monocytes/100 WBC (Bld) 7.2 % Normal 1.7-12.0 [facility] Comment on above: Performed By: #### L IPID, CMP, T4, TSH, FT3 #### [facility] [address] [place] [address] Dr. Mendel Herron NEUT # 8.6 103/ul Critically high 1.4-6.5 [facility] Comment on above: Performed By: #### L IPID, CMP, T4, TSH, FT3 #### [facility] [address] [place] [address] Dr. Mendel Herron Neutrophils/100 WBC (Bld) 69.4 % Normal 43.0-75.0 [facility] Comment on above: Performed By: #### L IPID, CMP, T4, TSH, FT3 #### [facility] [address] [place] [address] Dr. Mendel Herron Platelet mean volume (Bld) [Entitic vol] 9.9 fL Normal 9.5-13.5 [facility] Comment on above: Performed By: #### L IPID, CMP, T4, TSH, FT3 #### [facility] [address] [place] [address] Dr. Mendel Herron PLT 297 103/ul Normal 150-450 [facility] Comment on above: Performed By: #### L IPID, CMP, T4, TSH, FT3 #### [facility] [address] [place] [address] Dr. Mendel Herron RBC 4.22 106/ul Normal 4.20-5.40 [facility] Comment on above: Performed By: #### L IPID, CMP, T4, TSH, FT3 #### [facility] [address] [place] [address] Dr. Mendel Herron WBC 12.4 103/ul Critically high 4.0-11.[address] [facility] Comment on above: Performed By: #### L IPID, CMP, T4, TSH, FT3 #### [facility] [address] [place] [address] Dr. Mendel Herron CRPon 10-28-2022 CRP 1.3 mg/dL Critically high <=1.0 [facility] Comment on above: Performed By: #### L IPID, CMP, T4, TSH, FT3 #### [facility] [address] [place] [address] Dr. Mendel Herron PROF CHEM 8 (BAS METB)on Anion gap [Moles/Vol] 13.6 mmol/L Normal [facility] Comment on above: Performed By: #### L IPID, CMP, T4, TSH, FT3 #### [facility] [address] [place] [address] Dr. Mendel Herron Calcium [Mass/Vol] 9.3 mg/dL Normal 8.5-10.1 [facility] Comment on above: Performed By: #### L IPID, CMP, T4, TSH, FT3 #### [facility] [address] [place] [address] Dr. Mendel Herron Chloride [Moles/Vol] 102 mmol/L Normal 98-107 [facility] Comment on above: Performed By: #### L IPID, CMP, T4, TSH, FT3 #### [facility] [address] [place] [address] Dr. Mendel Herron CO2 [Moles/Vol] 30.7 mmol/L Normal 21.0-32.[address] [facility] Comment on above: Performed By: #### L IPID, CMP, T4, TSH, FT3 #### [facility] [address] [place] [address] Dr. Mendel Herron Creatinine [Mass/Vol] 0.85 mg/dL Normal 0.55-1.02 [facility] Comment on above: Performed By: #### L IPID, CMP, T4, TSH, FT3 #### [facility] [address] [address] [address] Mendel Herron EGFR-AF GERMAN >60 Normal >=60 [facility] Comment on above: Performed By: #### L IPID, CMP, T4, TSH, FT3 #### [facility] [address] [address] [address] Mendel Herron EGFR-NON AF GERMAN >60 Normal >=60 [facility] Comment on above: Performed By: #### L IPID, CMP, T4, TSH, FT3 #### [facility] [address] [address] [address] Mendel Herron Glucose [Mass/Vol] 101 mg/dL Normal 74-106 [facility] Comment on above: Performed By: #### L IPID, CMP, T4, TSH, FT3 #### [facility] [address] [address] [address] Mendel Herron Potassium [Moles/Vol] 3.3 mmol/L Critically low 3.5-5.1 [facility] Comment on above: Performed By: #### L IPID, CMP, T4, TSH, FT3 #### [facility] [address] [address] [address] Mendel Herron Sodium [Moles/Vol] 143 mmol/L Normal 136-145 [facility] Comment on above: Performed By: #### L IPID, CMP, T4, TSH, FT3 #### [facility] [address] [address] [address] Mendel Herron Urea nitrogen [Mass/Vol] 12.0 mg/dL Normal 7.0-18.0 [facility] Comment on above: Performed By: #### L IPID, CMP, T4, TSH, FT3 #### [facility] [address] [address] [address] Mendel Herron Urea nitrogen/Creatinine [Mass ratio] 14.1 mg/mg Normal [facility] Comment on above: Performed By: #### L IPID, CMP, T4, TSH, FT3 #### [facility] [address] [address] [address] Mendel Herron URIC ACID SERUMon 10-28-2022 Urate [Mass/Vol] 7.8 mg/dL Critically high 2.6-6.0 [facility] Comment on above: Performed By: #### L IPID, CMP, T4, TSH, FT3 #### [facility] [address] [id number] Mendel Herron XR TOES RT MIN [...] GAIL PELLETIER Date: 2022-10-28 20:53 Normal [facility] SARS-CoV-2 (COVID-19) RNA DEIRDRE+probe Ql (Unsp spec) Not detected Normal NOT DETECTED [facility] Comment on above: Result Comment: When diagnostic [...] for this test is supported by the [employer] of Health and Human Service's declaration that [...] L IPID, CMP, T4, TSH, FT3 #### [facility] [address] [place] [address] Dr. Mendel Herron CBC AUTO DIFFon 09-09-2022 BASO # 0.1 103/ul Normal 0.0-0.1 [facility] Comment on above: Performed By: #### L IPID, CMP, T4, TSH, FT3 #### [facility] [address] [place] [address] Dr. Mendel Herron Basophils/100 WBC (Bld) 0.7 % Normal 0.2-2.0 [facility] Comment on above: Performed By: #### L IPID, CMP, T4, TSH, FT3 #### [facility] [address] [place] [address] Dr. Mendel Herron EO # 0.1 103/ul Normal 0.0-0.7 [facility] Comment on above: Performed By: #### L IPID, CMP, T4, TSH, FT3 #### [facility] [address] [place] [address] Dr. Mendel Herron Eosinophils/100 WBC (Bld) 0.7 % Critically low 0.9-7.0 [facility] Comment on above: Performed By: #### L IPID, CMP, T4, TSH, FT3 #### [facility] [address] [place] [address] Dr. Mendel Herron Erythrocyte distribution width (RBC) [Ratio] 13.1 % Normal 11.0-15.0 [facility] Comment on above: Performed By: #### L IPID, CMP, T4, TSH, FT3 #### [facility] [address] [place] [address] Dr. Mendel Herron Hematocrit (Bld) [Volume fraction] 43.7 % Normal 36.0-48.0 [facility] Comment on above: Performed By: #### L IPID, CMP, T4, TSH, FT3 #### [facility] [address] [place] [address] Dr. Mendel Herron Hemoglobin (Bld) [Mass/Vol] 14.4 g/dL Normal 12.0-16.0 [facility] Comment on above: Performed By: #### L IPID, CMP, T4, TSH, FT3 #### [facility] [address] [place] [address] Dr. Mendel Herron IG # 0.11 10e3/ul Critically high 0.00-0.03 [facility] Comment on above: Performed By: #### L IPID, CMP, T4, TSH, FT3 #### [facility] [address] [place] [address] Dr. Mendel Herron IG % 1.3 % Critically high 0.0-0.5 [facility] Comment on above: Performed By: #### L IPID, CMP, T4, TSH, FT3 #### [facility] [address] [place] [address] Dr. Mendel Herron LYMPH # 2.4 103/ul Normal 1.2-3.8 [facility] Comment on above: Performed By: #### L IPID, CMP, T4, TSH, FT3 #### [facility] [address] [place] [address] Dr. Mendel Herron Lymphocytes/100 WBC (Bld) 27.9 % Normal 20.5-60.0 [facility] Comment on above: Performed By: #### L IPID, CMP, T4, TSH, FT3 #### [facility] [address] [place] [address] Dr. Mendel Herron MANUAL DIFF REQ NO Normal [facility] Comment on above: Performed By: #### L IPID, CMP, T4, TSH, FT3 #### [facility] [address] [place] [address] Dr. Mendel Herron MCH (RBC) [Entitic mass] 31.0 pg Normal 26.7-34.0 [facility] Comment on above: Performed By: #### L IPID, CMP, T4, TSH, FT3 #### [facility] [address] [place] [address] Dr. Mendel Herron MCHC (RBC) [Mass/Vol] 33.0 g/dL Normal 29.9-35.2 [facility] Comment on above: Performed By: #### L IPID, CMP, T4, TSH, FT3 #### [facility] [address] [place] [address] Dr. Mnedel Herron MCV (RBC) [Entitic vol] 94.0 fL Normal 81.0-99.0 [facility] Comment on above: Performed By: #### L IPID, CMP, T4, TSH, FT3 #### [facility] [address] [place] [address] Dr. Mendel Herron MONO # 0.5 103/ul Normal 0.3-0.8 [facility] Comment on above: Performed By: #### L IPID, CMP, T4, TSH, FT3 #### [facility] [address] [place] [address] Dr. Mendel Herron Monocytes/100 WBC (Bld) 6.0 % Normal 1.7-12.0 [facility] Comment on above: Performed By: #### L IPID, CMP, T4, TSH, FT3 #### [facility] [address] [place] [address] Dr. Mendel Herron NEUT # 5.4 103/ul Normal 1.4-6.5 [facility] Comment on above: Performed By: #### L IPID, CMP, T4, TSH, FT3 #### [facility] [address] [place] [address] Dr. Mendel Herron Neutrophils/100 WBC (Bld) 63.4 % Normal 43.0-75.0 [facility] Comment on above: Performed By: #### L IPID, CMP, T4, TSH, FT3 #### [facility] [address] [place] [address] Dr. Mendel Herron Platelet mean volume (Bld) [Entitic vol] 9.8 fL Normal 9.5-13.5 [facility] Comment on above: Performed By: #### L IPID, CMP, T4, TSH, FT3 #### [facility] [address] [place] [address] Dr. Mendel Herron PLT 398 103/ul Normal 150-450 [facility] Comment on above: Performed By: #### L IPID, CMP, T4, TSH, FT3 #### [facility] [address] [address] [address] Mendel Herron RBC 4.65 106/ul Normal 4.20-5.40 [facility] Comment on above: Performed By: #### L IPID, CMP, T4, TSH, FT3 #### [facility] [address] [address] [address] Mendel Herron WBC 8.6 103/ul Normal 4.0-11.0 [facility] Comment on above: Performed By: #### L IPID, CMP, T4, TSH, FT3 #### [facility] [address] [place] [address] Dr. Mendel Herron FREE T3on 09-09-2022 FREE T3 2.59 pg/mlL Normal 2.18-3.98 [facility] Comment on above: Performed By: #### L IPID, CMP, T4, TSH, FT3 #### [facility] [address] [place] [address] Dr. Mendel Herron GLYCOHEMOGLOBIN A1Con 2022 ADA RECOMMENDATION SEE BELOW Normal [facility] Comment on above: Result Comment: ADA RECOMMENDED LIMIT 4.0 - 6.0 ADA THERAPEUTIC TARGET < 7.0 ACTION SUGGESTED > 7.0 Performed By: #### A 1C #### [facility] [address] [place] [address] Dr. Mendel Herron Glucose [Mass/Vol] 120 mg/dL Normal [facility] Comment on above: Performed By: #### A 1C #### [facility] [address] [place] [address] Dr. Mendel Herron HbA1c (Bld) [Mass fraction] 5.8 % Normal 4.5-6.2 [facility] Comment on above: Performed By: #### A 1C #### [facility] [address] [place] [address] Dr. Mendel Herron LIPID PROFILEon 09-09-2022 CHOL-HDL RATIO NORM SEE BELOW Normal [facility] Comment on above: Result Comment: 3.3 - 4.4 LOW RISK 4.4 - 7.1 AVERAGE RISK 7.1 - 11.0 MODERATE RISK >11.0 HIGH RISK Performed By: #### L IPID, CMP, T4, TSH, FT3 #### [facility] [address] [address] [address] Mendel Herron Cholesterol [Mass/Vol] 308 mg/dL Critically high <=200 [facility] Comment on above: Performed By: #### L IPID, CMP, T4, TSH, FT3 #### [facility] [address] [address] [address] Mendel Herron Cholesterol in HDL [Mass/Vol] 46 mg/dL Normal 40-60 [facility] Comment on above: Performed By: #### L IPID, CMP, T4, TSH, FT3 #### [facility] [address] [place] [address] Dr. Mendel Herron Cholesterol in LDL [Mass/Vol] 212.6 mg/dL Normal [facility] Comment on above: Performed By: #### L IPID, CMP, T4, TSH, FT3 #### [facility] [address] [address] [address] Mendel Herron Cholesterol.total/Ch olesterol in HDL [Mass ratio] 6.7 {ratio} Normal [facility] Comment on above: Performed By: #### L IPID, CMP, T4, TSH, FT3 #### [facility] [address] [place] [address] Dr. Mendel Herron HDL NORMAL > or = 60 mg/dl - LOW CARDIOVASCULAR RISK <40 mg/dl - HIGH CARDIOVASCULAR RISK Normal [facility] Comment on above: Performed By: #### L IPID, CMP, T4, TSH, FT3 #### [facility] [address] [place] [address] Dr. Mendel Herron LDL CALC NORMAL SEE BELOW Normal [facility] Comment on above: Result Comment: <100 mg/dl OPTIMAL 100 - 129 mg/dl NEAR OR ABOVE OPTIMAL 130 - 159 mg/dl BORDERLINE HIGH 160 - 189 mg/dl HIGH >190 mg/dl VERY HIGH Performed By: #### L IPID, CMP, T4, TSH, FT3 #### [facility] [address] [address] [address] Mendel Herron Triglyceride [Mass/Vol] 247 mg/dL Critically high <=150 [facility] Comment on above: Performed By: #### L IPID, CMP, T4, TSH, FT3 #### [facility] [address] [address] [address] Mendel Herron VLDL CALC 49.4 mg/dL Normal [facility] Comment on above: Performed By: #### L IPID, CMP, T4, TSH, FT3 #### [facility] [address] [address] [address] Mendel Herron PROF 14(COMP METB)on 023 Albumin [Mass/Vol] 4.0 g/dL Normal 3.4-5.0 [facility] Comment on above: Performed By: #### L IPID, CMP, T4, TSH, FT3 #### [facility] [address] [place] [address] Dr. Mendel Herron Albumin/Globulin [Mass ratio] 0.9 {ratio} Normal [facility] Comment on above: Performed By: #### L IPID, CMP, T4, TSH, FT3 #### [facility] [address] [place] [address] Dr. Mendel Herron ALP [Catalytic activity/Vol] 115 U/L Normal 46-116 [facility] Comment on above: Performed By: #### L IPID, CMP, T4, TSH, FT3 #### [facility] [address] [address] [address] Mendel Herron ALT [Catalytic activity/Vol] 30 U/L Normal 14-59 [facility] Comment on above: Performed By: #### L IPID, CMP, T4, TSH, FT3 #### [facility] [address] [address] [address] Mendel Herron Anion gap [Moles/Vol] 12.7 mmol/L Normal [facility] Comment on above: Performed By: #### L IPID, CMP, T4, TSH, FT3 #### [facility] [address] [place] [address] Dr. Mendel Herron AST [Catalytic activity/Vol] 18 U/L Normal 15-37 [facility] Comment on above: Performed By: #### L IPID, CMP, T4, TSH, FT3 #### [facility] [address] [place] [address] Dr. Mendel Herron Bilirubin [Mass/Vol] 0.7 mg/dL Normal 0.2-1.0 [facility] Comment on above: Performed By: #### L IPID, CMP, T4, TSH, FT3 #### [facility] [address] [address] [address] Mendel Herron Calcium [Mass/Vol] 9.7 mg/dL Normal 8.5-10.1 [facility] Comment on above: Performed By: #### L IPID, CMP, T4, TSH, FT3 #### [facility] [address] [address] [address] Mendel Herron Chloride [Moles/Vol] 103 mmol/L Normal 98-107 [facility] Comment on above: Performed By: #### L IPID, CMP, T4, TSH, FT3 #### [facility] [address] [place] [address] Dr. Mendel Herron CO2 [Moles/Vol] 26.5 mmol/L Normal 21.0-32.[address] [facility] Comment on above: Performed By: #### L IPID, CMP, T4, TSH, FT3 #### [facility] [address] [place] [address] Dr. Mendel Herron Creatinine [Mass/Vol] 0.83 mg/dL Normal 0.55-1.02 [facility] Comment on above: Performed By: #### L IPID, CMP, T4, TSH, FT3 #### [facility] [address] [place] [address] Dr. Mendel Herron EGFR-AF GERMAN >60 Normal >=[address] [facility] Comment on above: Performed By: #### L IPID, CMP, T4, TSH, FT3 #### [facility] [address] [address] [address] Mendel Herron EGFR-NON AF GERMAN >60 Normal >=60 [facility] Comment on above: Performed By: #### L IPID, CMP, T4, TSH, FT3 #### [facility] [address] [address] [address] Mendel Herron Globulin (S) [Mass/Vol] 4.4 g/dL Normal [facility] Comment on above: Performed By: #### L IPID, CMP, T4, TSH, FT3 #### [facility] [address] [address] [address] Mendel Herron Glucose [Mass/Vol] 97 mg/dL Normal 74-106 [facility] Comment on above: Performed By: #### L IPID, CMP, T4, TSH, FT3 #### [facility] [address] [place] [address] Dr. Mendel Herron Potassium [Moles/Vol] 4.2 mmol/L Normal 3.5-5.1 [facility] Comment on above: Performed By: #### L IPID, CMP, T4, TSH, FT3 #### [facility] [address] [address] [address] Mendel Herron Protein [Mass/Vol] 8.4 g/dL Critically high 6.4-8.2 [facility] Comment on above: Performed By: #### L IPID, CMP, T4, TSH, FT3 #### [facility] [address] [address] [address] Mendel Herron Sodium [Moles/Vol] 138 mmol/L Normal 136-145 [facility] Comment on above: Performed By: #### L IPID, CMP, T4, TSH, FT3 #### [facility] [address] [place] [address] Dr. Mendel Herron Urea nitrogen [Mass/Vol] 12.0 mg/dL Normal 7.0-18.0 [facility] Comment on above: Performed By: #### L IPID, CMP, T4, TSH, FT3 #### [facility] [address] [address] [address] Mendel Herron Urea nitrogen/Creatinine [Mass ratio] 14.5 mg/mg Normal [facility] Comment on above: Performed By: #### L IPID, CMP, T4, TSH, FT3 #### [facility] [address] [id number] Mendel Herron T4on 09-09-2022 T4 [Mass/Vol] 8.80 ug/dL Normal 4.80-13.90 [facility] Comment on above: Performed By: #### L IPID, CMP, T4, TSH, FT3 #### [facility] [address] [address] [address] Mendel Herron TSHon 09-09-2022 TSH 0.898 uIU/mL Normal 0.358-3.740 [facility] Comment on above: Performed By: #### L IPID, CMP, T4, TSH, FT3 #### [facility] [address] [address] [address] Mendel Herron VITAMIN D 25 OHon 09-09-2022 VIT D 25-OH 24.0 ng/mL Normal [facility] Comment on above: Performed By: #### L IPID, CMP, T4, TSH, FT3 #### [facility] [address] [place] [address] Dr. Mendel Herron VIT D RANGES SEE BELOW Normal [facility] Comment on above: Result Comment: <20 ng/mL Vit D deficient 20 - <30 ng/mL Vit D insufficient 30 - 100 ng/mL Vit D sufficient >100 ng/mL Potential Toxicity Performed By: #### L IPID, CMP, T4, TSH, FT3 #### [facility] [address] [address] [address] Mendel Herron NM HEPATOBILIARY SCAN W [...] VIVI GARY Date: 2022-08-20 16:07 Normal [facility] US SINGLE QUAD RT UPPERon US SINGLE [...] by: JEAN LOPES Date: 2022-08-11 15:50 Normal [facility] CARDIAC SUBHA ADMITon 023 CK [Catalytic activity/Vol] 30 U/L Normal 26-192 [facility] Comment on above: Performed By: #### L IPID, CMP, T4, TSH, FT3 #### [facility] [address] [place] [address] Dr. Mendel Herron CK.MB [Mass/Vol] 1.02 ng/mL Normal <=3.[address] [facility] Comment on above: Performed By: #### L IPID, CMP, T4, TSH, FT3 #### [facility] [address] [place] [address] Dr. Mendel Herron HSTROP 32.8 pg/mL Normal 4.0-51.3 [facility] Comment on above: Result Comment: CUT- OFF POINTS HAVE BEEN ESTABLISHED BASED ON THE FOURTH UNIVERSAL DEFINITIONS OF MYOCARDIAL INFARCTION. THE UPPER REFERENCE LIMIT (URL) OF TROPONIN, DEFINED THE 99TH PERCENTILE OF cTnI DISTRIBUTION IN A REFERENCE POPULATION, HAS BEEN CONFIRMED THE DECISION THRESHOLD FOR [place] DIAGNOSIS. Performed By: #### L IPID, CMP, T4, TSH, FT3 #### [facility] [address] [place] [address] Dr. Mendel Herron SONYA 23 ng/mL Normal 9-82 [facility] Comment on above: Performed By: #### L IPID, CMP, T4, TSH, FT3 #### [facility] [address] [place] [address] Dr. Mendel Herron CBC AUTO DIFFon 08-09-2022 BASO # 0.0 103/ul Normal 0.0-0.1 [facility] Comment on above: Performed By: #### L IPID, CMP, T4, TSH, FT3 #### [facility] [address] [place] [address] Dr. Mendel Herron Basophils/100 WBC (Bld) 0.3 % Normal 0.2-2.0 [facility] Comment on above: Performed By: #### L IPID, CMP, T4, TSH, FT3 #### [facility] [address] [place] [address] Dr. Mendel Herron EO # 0.0 103/ul Normal 0.0-0.7 [facility] Comment on above: Performed By: #### L IPID, CMP, T4, TSH, FT3 #### [facility] [address] [place] [address] Dr. Mendel Herron Eosinophils/100 WBC (Bld) 0.3 % Critically low 0.9-7.0 [facility] Comment on above: Performed By: #### L IPID, CMP, T4, TSH, FT3 #### [facility] [address] [place] [address] Dr. eMndel Herron Erythrocyte distribution width (RBC) [Ratio] 13.1 % Normal 11.0-15.0 [facility] Comment on above: Performed By: #### L IPID, CMP, T4, TSH, FT3 #### [facility] [address] [place] [address] Dr. Mendel Herron Hematocrit (Bld) [Volume fraction] 42.7 % Normal 36.0-48.0 [facility] Comment on above: Performed By: #### L IPID, CMP, T4, TSH, FT3 #### [facility] [address] [place] [address] Dr. Mendel Herron Hemoglobin (Bld) [Mass/Vol] 15.4 g/dL Normal 12.0-16.0 [facility] Comment on above: Performed By: #### L IPID, CMP, T4, TSH, FT3 #### [facility] [address] [place] [address] Dr. Mendel Herron IG # 0.05 10e3/ul Critically high 0.00-0.03 [facility] Comment on above: Performed By: #### L IPID, CMP, T4, TSH, FT3 #### [facility] [address] [place] [address] Dr. Mendel Herron IG % 0.4 % Normal 0.0-0.5 [facility] Comment on above: Performed By: #### L IPID, CMP, T4, TSH, FT3 #### [facility] [address] [place] [address] Dr. Mendel Herron LYMPH # 2.5 103/ul Normal 1.2-3.8 [facility] Comment on above: Performed By: #### L IPID, CMP, T4, TSH, FT3 #### [facility] [address] [place] [address] Dr. Mendel Herron Lymphocytes/100 WBC (Bld) 21.2 % Normal 20.5-60.0 [facility] Comment on above: Performed By: #### L IPID, CMP, T4, TSH, FT3 #### [facility] [address] [place] [address] Dr. Mendel Herron MANUAL DIFF REQ NO Normal [facility] Comment on above: Performed By: #### L IPID, CMP, T4, TSH, FT3 #### [facility] [address] [place] [address] Dr. Mendel Herron MCH (RBC) [Entitic mass] 31.7 pg Normal 26.7-34.0 [facility] Comment on above: Performed By: #### L IPID, CMP, T4, TSH, FT3 #### [facility] [address] [place] [address] Dr. Mendel Herron MCHC (RBC) [Mass/Vol] 36.1 g/dL Critically high 29.9-35.2 [facility] Comment on above: Performed By: #### L IPID, CMP, T4, TSH, FT3 #### [facility] [address] [place] [address] Dr. Mendel Herron MCV (RBC) [Entitic vol] 87.9 fL Normal 81.0-99.0 [facility] Comment on above: Performed By: #### L IPID, CMP, T4, TSH, FT3 #### [facility] [address] [place] [address] Dr. Mendel Herron MONO # 0.7 103/ul Normal 0.3-0.8 [facility] Comment on above: Performed By: #### L IPID, CMP, T4, TSH, FT3 #### [facility] [address] [place] [address] Dr. Mendel Herron Monocytes/100 WBC (Bld) 6.3 % Normal 1.7-12.0 [facility] Comment on above: Performed By: #### L IPID, CMP, T4, TSH, FT3 #### [facility] [address] [address] [address] Mendel Herron NEUT # 8.4 103/ul Critically high 1.4-6.5 [facility] Comment on above: Performed By: #### L IPID, CMP, T4, TSH, FT3 #### [facility] [address] [address] [address] Mendel Herron Neutrophils/100 WBC (Bld) 71.5 % Normal 43.0-75.0 [facility] Comment on above: Performed By: #### L IPID, CMP, T4, TSH, FT3 #### [facility] [address] [address] [address] Mendel Herron Platelet mean volume (Bld) [Entitic vol] 9.8 fL Normal 9.5-13.5 [facility] Comment on above: Performed By: #### L IPID, CMP, T4, TSH, FT3 #### [facility] [address] [address] [address] Mendel Herron PLT 374 103/ul Normal 150-450 [facility] Comment on above: Performed By: #### L IPID, CMP, T4, TSH, FT3 #### [facility] [address] [address] [address] Mendel Herron RBC 4.86 106/ul Normal 4.20-5.40 [facility] Comment on above: Performed By: #### L IPID, CMP, T4, TSH, FT3 #### [facility] [address] [address] [address] Mendel Herron WBC 11.7 103/ul Critically high 4.0-11.[address] [facility] Comment on above: Performed By: #### L IPID, CMP, T4, TSH, FT3 #### [facility] [address] [place] [address] HEAD WO CONon 08-09-2022 CT [...] HELLEN VELAZQUEZ Date: 2022-08-09 15:23 Normal [facility] Covid-19 PCR ([facility])on 07-20 SARS-CoV-2 (COVID-19) RNA DEIRDRE+probe Ql (Unsp spec) Not detected Normal NOT DETECTED [facility] Comment on above: Result Comment: When diagnostic [...] for this test is supported by the [place] of Health and Human Service's declaration that [...] L IPID, CMP, T4, TSH, FT3 #### [facility] [address] [place] [address] Dr. Mendel Herron ER URINE PROFILEon 3 Bilirubin Ql (U) Negative Normal NEGATIVE [facility] Comment on above: Performed By: #### L IPID, CMP, T4, TSH, FT3 #### [facility] [address] [address] [address] Mendel Herron Clarity (U) CLEAR Normal CLEAR [facility] Comment on above: Performed By: #### L IPID, CMP, T4, TSH, FT3 #### [facility] [address] [address] [address] Mendel Herron Color (U) LT. YELLOW Normal YELLOW [facility] Comment on above: Performed By: #### L IPID, CMP, T4, TSH, FT3 #### [facility] [address] [address] [address] Mendel Herron ERUAHYocasta A micrscopic examination will be performed if indicated. Normal [facility] Comment on above: Performed By: #### L IPID, CMP, T4, TSH, FT3 #### [facility] [address] [place] [address] Dr. Mendel Herron Glucose Ql (U) Negative Normal NEGATIVE [facility] Comment on above: Performed By: #### L IPID, CMP, T4, TSH, FT3 #### [facility] [address] [place] [address] Dr. Mendel Herron Hemoglobin Ql (U) TRACE-INTACT Abnormal NEGATIVE [facility] Comment on above: Performed By: #### L IPID, CMP, T4, TSH, FT3 #### [facility] [address] [place] [address] Dr. Mendel Herron Ketones Ql (U) Negative Normal NEGATIVE [facility] Comment on above: Performed By: #### L IPID, CMP, T4, TSH, FT3 #### [facility] [address] [place] [address] Dr. Mendel Herron LEUKOCYTES Negative Normal NEGATIVE [facility] Comment on above: Performed By: #### L IPID, CMP, T4, TSH, FT3 #### [facility] [address] [address] [address] Mendel Herron Nitrite Ql (U) Negative Normal NEGATIVE [facility] Comment on above: Performed By: #### L IPID, CMP, T4, TSH, FT3 #### [facility] [address] [place] [address] Dr. Mendel Herron pH (U) 5.0 [pH] Normal 5-9 [facility] Comment on above: Performed By: #### L IPID, CMP, T4, TSH, FT3 #### [facility] [address] [place] [address] Dr. Mendel Herron SPEC GRAVITY 1.015 Normal 1.005-<=1.025 [facility] Comment on above: Performed By: #### L IPID, CMP, T4, TSH, FT3 #### [facility] [address] [address] [address] Mendel Herron UA PROTEIN Negative Normal NEGATIVE/ TRACE [facility] Comment on above: Performed By: #### L IPID, CMP, T4, TSH, FT3 #### [facility] [address] [place] [address] Dr. Mendel Herron UR MICRO IND INDICATED Normal [facility] Comment on above: Performed By: #### L IPID, CMP, T4, TSH, FT3 #### [facility] [address] [place] [address] Dr. Mendel Herron Urobilinogen Qn (U) 0.2 {James'U}/dL Normal 0.2 - 1. 0 [facility] Comment on above: Performed By: #### L IPID, CMP, T4, TSH, FT3 #### [facility] [address] [place] [address] Dr. Mendel Herron LIPASEon 08-09-2022 Lipase [Catalytic activity/Vol] 114.0 U/L Normal 73.0-393.0 [facility] Comment on above: Performed By: #### L IPA, BMP, CMADM #### [facility] [address] [place] [address] Dr. Mendel Herron PROF CHEM 8 (BAS METB)on Anion gap [Moles/Vol] 18.9 mmol/L Normal [facility] Comment on above: Performed By: #### L IPA, BMP, CMADM #### [facility] [address] [place] [address] Dr. Mendel Herron Calcium [Mass/Vol] 9.4 mg/dL Normal 8.5-10.1 [facility] Comment on above: Performed By: #### L IPA, BMP, CMADM #### [facility] [address] [address] [address] Mendel Herron Chloride [Moles/Vol] 97 mmol/L Critically low 98-107 [facility] Comment on above: Performed By: #### L IPA, BMP, CMADM #### [facility] [address] [address] [address] Mendel Herron CO2 [Moles/Vol] 26.0 mmol/L Normal 21.0-32.0 [facility] Comment on above: Performed By: #### L IPA, BMP, CMADM #### [facility] [address] [address] [address] Mendel Herron Creatinine [Mass/Vol] 0.85 mg/dL Normal 0.55-1.02 [facility] Comment on above: Performed By: #### L IPA, BMP, CMADM #### [facility] [address] [address] [address] Mendel Herron EGFR-AF GERMAN >60 Normal >=60 [facility] Comment on above: Performed By: #### L IPA, BMP, CMADM #### [facility] [address] [place] [address] Dr. Mendel Herron EGFR-NON AF GERMAN >60 Normal >=60 [facility] Comment on above: Performed By: #### L IPA, BMP, CMADM #### [facility] [address] [address] [address] Mendel Herron Glucose [Mass/Vol] 120 mg/dL Critically high 74-106 [facility] Comment on above: Performed By: #### L IPA, BMP, CMADM #### [facility] [address] [address] [address] Mendel Herron Potassium [Moles/Vol] 3.9 mmol/L Normal 3.5-5.1 [facility] Comment on above: Performed By: #### L IPA, BMP, CMADM #### [facility] [address] [address] [address] Mendel Herron Sodium [Moles/Vol] 138 mmol/L Normal 136-145 [facility] Comment on above: Performed By: #### L IPA, BMP, CMADM #### [facility] [address] [address] [address] Mendel Herron Urea nitrogen [Mass/Vol] 17.0 mg/dL Normal 7.0-18.0 [facility] Comment on above: Performed By: #### L IPA, BMP, CMADM #### [facility] [address] [address] [address] eMndel Herron Urea nitrogen/Creatinine [Mass ratio] 20.0 mg/mg Normal [facility] Comment on above: Performed By: #### L IPA, BMP, CMADM #### [facility] [address] [place] [address] Dr. Mendel Herron TROPONIN, HIGH SENSITIVITYon 08-09-2022 HSTROP 32.5 pg/mL Normal 4.0-51.3 [facility] Comment on above: Result Comment: CUT- OFF POINTS HAVE BEEN ESTABLISHED BASED ON THE FOURTH UNIVERSAL DEFINITIONS OF MYOCARDIAL INFARCTION. THE UPPER REFERENCE LIMIT (URL) OF TROPONIN, DEFINED THE 99TH PERCENTILE OF cTnI DISTRIBUTION IN A REFERENCE POPULATION, HAS BEEN CONFIRMED THE DECISION THRESHOLD FOR [place] DIAGNOSIS. Performed By: #### L IPID, CMP, T4, TSH, FT3 #### [facility] [address] [place] [address] Dr. Mendel Herron URINE MICROSCOPIC ONLYon BACTERIA NONE SEEN Normal NONE SEEN [facility] Comment on above: Performed By: #### L IPID, CMP, T4, TSH, FT3 #### [facility] [address] [address] [address] Mendel Herron Bacteria identified Cx Nom (U) NOT INDICATED Normal [facility] Comment on above: Performed By: #### L IPID, CMP, T4, TSH, FT3 #### [facility] [address] [place] [address] Dr. Mendel Herron CAST NONE SEEN Normal NONE SEEN [facility] Comment on above: Performed By: #### L IPID, CMP, T4, TSH, FT3 #### [facility] [address] [address] [address] Mendel Herron Crystals LM Nom (Urine sed) NONE SEEN Normal NONE SEEN [facility] Comment on above: Performed By: #### L IPID, CMP, T4, TSH, FT3 #### [facility] [address] [place] [address] Dr. Mendel Herron Epithelial cells LM Ql (Urine sed) NONE SEEN Normal NONE SEEN /RARE [facility] Comment on above: Performed By: #### L IPID, CMP, T4, TSH, FT3 #### [facility] [address] [place] [address] Dr. Mendel Herron MUCOUS NONE SEEN Normal NONE SEEN [facility] Comment on above: Performed By: #### L IPID, CMP, T4, TSH, FT3 #### [facility] [address] [place] [address] Dr. Mendel Herron RBC 0-2 Normal 0-2 [facility] Comment on above: Performed By: #### L IPID, CMP, T4, TSH, FT3 #### [facility] [address] [place] [address] Dr. Mendel Herron WBC NONE SEEN Normal NONE SEEN [facility] Comment on above: Performed By: #### L IPID, CMP, T4, TSH, FT3 #### [facility] [address] [place] [address] Dr. Mendel Herron XR CHEST 1 Von [...] MARY DIETZ Date: 2022-08-09 15:18 Normal [facility] H PYLORI ANTIBODY IGGon - H. PYLORI IGG ABS 0.11 Index Value Normal 0.00-0.79 [facility] Comment on above: Result Comment: Nega tive <0.80 Equivocal 0.80 - 0.89 Positive >0.89 Performed By: #### L IPID, CMP, T4, TSH, FT3 #### [facility] [address] [place] [address] Dr. Mendel Herron AMYLASEon 08-06-2022 Amylase [Catalytic activity/Vol] 57 U/L Normal 25-115 [facility] Comment on above: Performed By: #### L IPID, CMP, T4, TSH, FT3 #### [facility] [address] [place] [address] Dr. Mendel Herron CBC AUTO DIFFon 08-06-2022 BASO # 0.1 103/ul Normal 0.0-0.1 [facility] Comment on above: Performed By: #### L IPID, CMP, T4, TSH, FT3 #### [facility] [address] [place] [address] Dr. Mendel Herron Basophils/100 WBC (Bld) 0.7 % Normal 0.2-2.0 [facility] Comment on above: Performed By: #### L IPID, CMP, T4, TSH, FT3 #### [facility] [address] [place] [address] Dr. Mendel Herron EO # 0.1 103/ul Normal 0.0-0.7 [facility] Comment on above: Performed By: #### L IPID, CMP, T4, TSH, FT3 #### [facility] [address] [place] [address] Dr. Mendel Herron Eosinophils/100 WBC (Bld) 0.5 % Critically low 0.9-7.0 [facility] Comment on above: Performed By: #### L IPID, CMP, T4, TSH, FT3 #### [facility] [address] [place] [address] Dr. Mendel Herron Erythrocyte distribution width (RBC) [Ratio] 13.7 % Normal 11.0-15.0 [facility] Comment on above: Performed By: #### L IPID, CMP, T4, TSH, FT3 #### [facility] [address] [place] [address] Dr. Mendel Herron Hematocrit (Bld) [Volume fraction] 46.2 % Normal 36.0-48.0 [facility] Comment on above: Performed By: #### L IPID, CMP, T4, TSH, FT3 #### [facility] [address] [place] [address] Dr. Mendel Herron Hemoglobin (Bld) [Mass/Vol] 15.1 g/dL Normal 12.0-16.0 [facility] Comment on above: Performed By: #### L IPID, CMP, T4, TSH, FT3 #### [facility] [address] [place] [address] Dr. Mendel Herron IG # 0.06 10e3/ul Critically high 0.00-0.03 [facility] Comment on above: Performed By: #### L IPID, CMP, T4, TSH, FT3 #### [facility] [address] [place] [address] Dr. Mendel Herron IG % 0.6 % Critically high 0.0-0.5 [facility] Comment on above: Performed By: #### L IPID, CMP, T4, TSH, FT3 #### [facility] [address] [place] [address] Dr. Mendel Herron LYMPH # 2.5 103/ul Normal 1.2-3.8 [facility] Comment on above: Performed By: #### L IPID, CMP, T4, TSH, FT3 #### [facility] [address] [place] [address] Dr. Mendel Herron Lymphocytes/100 WBC (Bld) 23.4 % Normal 20.5-60.0 [facility] Comment on above: Performed By: #### L IPID, CMP, T4, TSH, FT3 #### [facility] [address] [place] [address] Dr. Mendel Herron MANUAL DIFF REQ NO Normal [facility] Comment on above: Performed By: #### L IPID, CMP, T4, TSH, FT3 #### [facility] [address] [place] [address] Dr. Mendel Herron MCH (RBC) [Entitic mass] 31.4 pg Normal 26.7-34.0 [facility] Comment on above: Performed By: #### L IPID, CMP, T4, TSH, FT3 #### [facility] [address] [place] [address] Dr. Mendel Herron MCHC (RBC) [Mass/Vol] 32.7 g/dL Normal 29.9-35.2 [facility] Comment on above: Performed By: #### L IPID, CMP, T4, TSH, FT3 #### [facility] [address] [place] [address] Dr. Mendel Herron MCV (RBC) [Entitic vol] 96.0 fL Normal 81.0-99.0 [facility] Comment on above: Performed By: #### L IPID, CMP, T4, TSH, FT3 #### [facility] [address] [place] [address] Dr. Mendel Herron MONO # 0.6 103/ul Normal 0.3-0.8 [facility] Comment on above: Performed By: #### L IPID, CMP, T4, TSH, FT3 #### [facility] [address] [place] [address] Dr. Mendel Herron Monocytes/100 WBC (Bld) 6.0 % Normal 1.7-12.0 [facility] Comment on above: Performed By: #### L IPID, CMP, T4, TSH, FT3 #### [facility] [address] [place] [address] Dr. Mendel Herron NEUT # 7.4 103/ul Critically high 1.4-6.5 [facility] Comment on above: Performed By: #### L IPID, CMP, T4, TSH, FT3 #### [facility] [address] [place] [address] Dr. Mendel Herron Neutrophils/100 WBC (Bld) 68.8 % Normal 43.0-75.0 [facility] Comment on above: Performed By: #### L IPID, CMP, T4, TSH, FT3 #### [facility] [address] [address] [address] Mendel Herron Platelet mean volume (Bld) [Entitic vol] 9.7 fL Normal 9.5-13.5 [facility] Comment on above: Performed By: #### L IPID, CMP, T4, TSH, FT3 #### [facility] [address] [address] [address] Mendel Herron PLT 331 103/ul Normal 150-450 [facility] Comment on above: Performed By: #### L IPID, CMP, T4, TSH, FT3 #### [facility] [address] [address] [address] Mendel Herron RBC 4.81 106/ul Normal 4.20-5.40 [facility] Comment on above: Performed By: #### L IPID, CMP, T4, TSH, FT3 #### [facility] [address] [place] [address] Dr. Mendel Herron WBC 10.7 103/ul Normal 4.0-11.0 [facility] Comment on above: Performed By: #### L IPID, CMP, T4, TSH, FT3 #### [facility] [address] [place] [address] HEAD WO CONon [...] by: JEAN LOPES Date: 2022-08-06 08:39 Normal [facility] LIPASEon 08-06-2022 Lipase [Catalytic activity/Vol] 125.0 U/L Normal 73.0-393.0 [facility] Comment on above: Performed By: #### L IPID, CMP, T4, TSH, FT3 #### [facility] [address] [place] [address] Dr. Mendel Herron PROF 14(COMP METB)on 023 Albumin [Mass/Vol] 3.7 g/dL Normal 3.4-5.0 [facility] Comment on above: Performed By: #### L IPID, CMP, T4, TSH, FT3 #### [facility] [address] [address] [address] Mendel Herron Albumin/Globulin [Mass ratio] 0.9 {ratio} Normal [facility] [facility] Comment on above: Performed By: #### L IPID, CMP, T4, TSH, FT3 #### [facility] [address] [place] [address] Dr. Mendel Herron ALP [Catalytic activity/Vol] 110 U/L Normal 46-116 [facility] Comment on above: Performed By: #### L IPID, CMP, T4, TSH, FT3 #### [facility] [address] [place] [address] Dr. Mendel Herron ALT [Catalytic activity/Vol] 25 U/L Normal 14-59 [facility] Comment on above: Performed By: #### L IPID, CMP, T4, TSH, FT3 #### [facility] [address] [address] [address] Mendel Herron Anion gap [Moles/Vol] 14.0 mmol/L Normal [facility] Comment on above: Performed By: #### L IPID, CMP, T4, TSH, FT3 #### [facility] [address] [place] [address] Dr. Mendel Herron AST [Catalytic activity/Vol] 16 U/L Normal 15-37 [facility] Comment on above: Performed By: #### L IPID, CMP, T4, TSH, FT3 #### [facility] [address] [address] [address] Mendel Herron Bilirubin [Mass/Vol] 0.6 mg/dL Normal 0.2-1.0 [facility] Comment on above: Performed By: #### L IPID, CMP, T4, TSH, FT3 #### [facility] [address] [place] [address] Dr. Mendel Herron Calcium [Mass/Vol] 9.3 mg/dL Normal 8.5-10.1 [facility] Comment on above: Performed By: #### L IPID, CMP, T4, TSH, FT3 #### [facility] [address] [place] [address] Dr. Mendel Herron Chloride [Moles/Vol] 103 mmol/L Normal 98-107 [facility] Comment on above: Performed By: #### L IPID, CMP, T4, TSH, FT3 #### [facility] [address] [place] [address] Dr. Mendel Herron CO2 [Moles/Vol] 27.3 mmol/L Normal 21.0-32.0 [facility] Comment on above: Performed By: #### L IPID, CMP, T4, TSH, FT3 #### [facility] [address] [place] [address] Dr. Mendel Herron Creatinine [Mass/Vol] 0.71 mg/dL Normal 0.55-1.02 [facility] Comment on above: Performed By: #### L IPID, CMP, T4, TSH, FT3 #### [facility] [address] [place] [address] Dr. Mendel Herron EGFR-AF GERMAN >60 Normal >=[address] [facility] Comment on above: Performed By: #### L IPID, CMP, T4, TSH, FT3 #### [facility] [address] [place] [address] Dr. Mendel Herron EGFR-NON AF GERMAN >60 Normal >=60 [facility] Comment on above: Performed By: #### L IPID, CMP, T4, TSH, FT3 #### [facility] [address] [place] [address] Dr. Mendel Herron Globulin (S) [Mass/Vol] 4.3 g/dL Normal [facility] Comment on above: Performed By: #### L IPID, CMP, T4, TSH, FT3 #### [facility] [address] [address] [address] Mendel Herron Glucose [Mass/Vol] 102 mg/dL Normal 74-106 [facility] Comment on above: Performed By: #### L IPID, CMP, T4, TSH, FT3 #### [facility] [address] [place] [address] Dr. Mendel Herron Potassium [Moles/Vol] 4.3 mmol/L Normal 3.5-5.1 [facility] Comment on above: Performed By: #### L IPID, CMP, T4, TSH, FT3 #### [facility] [address] [place] [address] Dr. Mendel Herron Protein [Mass/Vol] 8.0 g/dL Normal 6.4-8.2 [facility] Comment on above: Performed By: #### L IPID, CMP, T4, TSH, FT3 #### [facility] [address] [place] [address] Dr. Mendel Herron Sodium [Moles/Vol] 140 mmol/L Normal 136-145 [facility] Comment on above: Performed By: #### L IPID, CMP, T4, TSH, FT3 #### [facility] [address] [place] [address] Dr. Mendel Herron Urea nitrogen [Mass/Vol] 19.0 mg/dL Critically high 7.0-18.0 [facility] Comment on above: Performed By: #### L IPID, CMP, T4, TSH, FT3 #### [facility] [address] [place] [address] Dr. Mendel Herron Urea nitrogen/Creatinine [Mass ratio] 26.8 mg/mg Normal [facility] Comment on above: Performed By: #### L IPID, CMP, T4, TSH, FT3 #### [facility] [address] [place] [address] Dr. Mendel Herron Covid-19 PCR (CVDTB)on 06-19 SARS-CoV-2 (COVID-19) RNA DEIRDRE+probe Ql (Unsp spec) Not detected Normal NOT DETECTED [facility] Comment on above: Result Comment: This test is not yet approved or cleared by the [place] FDA. When there are no FDA-approved or cleared tests available, and other criteria are met, FDA can make tests available under an emergency access mechanism called an Emergency Use Authorization (EUA). The EUA for this test is supported by the [employer] of Health and Human Service's (HHS's) declaration [...] SARS-CoV-2. Performed By: #### C VDTBH #### [facility] [address] [place] [address] Dr. Mendel Herron INFLUENZA A AND B AGon 07-[facility] BELOW Normal [facility] Comment on above: Result Comment: Nega tive for Flu A protein angiten. Infection due to Flu A cannot be ruled out. Flu A angiten in the sample may be below the detection limit of the test. Performed By: #### L IPID, CMP, T4, TSH, FT3 #### [facility] [address] [place] [address] Dr. Mendel Herron INFLUBNEG SEE BELOW Normal [facility] Comment on above: Result Comment: Nega tive for Flu B protein antigen. Infection due to Flu B cannot be ruled out. Flu B antigen in the sample may be below the detection limit of the test. Performed By: #### L IPID, CMP, T4, TSH, FT3 #### [facility] [address] [place] [address] Dr. Mendel Herron INFLUENZA A AG Negative Normal NEGATIVE SEE COMMENT [facility] Comment on above: Performed By: #### L IPID, CMP, T4, TSH, FT3 #### [facility] [address] [place], [place] [address] Dr. Mendel Herron INFLUENZA B AG Negative Normal NEGATIVE SEE COMMENT [facility] Comment on above: Performed By: #### L IPID, CMP, T4, TSH, FT3 #### [facility] [address] [address] [address] Mendel Herron Covid-19 PCR ([facility])on 04-19 SARS-CoV-2 (COVID-19) RNA DEIRDRE+probe Ql (Unsp spec) Not detected Normal NOT DETECTED [facility] Comment on above: Result Comment: This test is not yet approved or cleared by the [place] FDA. When there are no FDA-approved or cleared tests available, and other criteria are met, FDA can make tests available under an emergency access mechanism called an Emergency Use Authorization (EUA). The EUA for this test is supported by the [place] of Health and Human Service's (HHS's) declaration [...] L IPID, CMP, T4, TSH, FT3 #### [facility] [address] [place], [place] [address] Dr. Mendel Herron INFLUENZA A AND B AGon 05-11 INFLUANEGH SEE BELOW Normal [facility] Comment on above: Result Comment: Nega tive for Flu A protein angiten. Infection due to Flu A cannot be ruled out. Flu A angiten in the sample may be below the detection limit of the test. Performed By: #### L IPID, CMP, T4, TSH, FT3 #### [facility] [address] [address] [facility] SEE BELOW Normal [facility] Comment on above: Result Comment: Nega tive for Flu B protein antigen. Infection due to Flu B cannot be ruled out. Flu B antigen in the sample may be below the detection limit of the test. Performed By: #### L IPID, CMP, T4, TSH, FT3 #### [facility] [address] [address] [address] Mendel Herron INFLUENZA A AG Negative Normal NEGATIVE SEE COMMENT [facility] Comment on above: Performed By: #### L IPID, CMP, T4, TSH, FT3 #### [facility] [address] [address] [address] Mendel Herron INFLUENZA B AG Negative Normal NEGATIVE SEE COMMENT [facility] Comment on above: Performed By: #### L IPID, CMP, T4, TSH, FT3 #### [facility] [address] [address] [address] Mendel Herron INTERNAL CONTROLS Within Normal Limits Normal Wi thin Normal Limits [facility] Comment on above: Performed By: #### L IPID, CMP, T4, TSH, FT3 #### [facility] [address] [address] [address] Mendel Herron Comprehensive Metabolic Empo n 12-23-2021 Albumin [Mass/Vol] 3.7 g/dL Normal 3.2-5.5 [facility] Comment on above: Performed By: #### E BS CMP, EBS LIPID #### [facility] [address] [place] [address] [place] Albumin/Globulin [Mass ratio] 1.0 {ratio} Normal [facility] Comment on above: Performed By: #### E BS CMP, EBS LIPID #### [facility] [address] [id number] [place] ALP [Catalytic activity/Vol] 159 U/L High 32-92 [facility] Comment on above: Performed By: #### E BS CMP, EBS LIPID #### [facility] [address] [place] [address] [place] ALT [Catalytic activity/Vol] 28 U/L Normal 10-60 [facility] Comment on above: Performed By: #### E BS CMP, EBS LIPID #### [facility] [address] AST [Catalytic activity/Vol] 27 U/L Normal 10-42 [facility] Comment on above: Performed By: #### E BS CMP, EBS LIPID #### [facility] [address] Bilirubin [Mass/Vol] 1.2 mg/dL Normal 0.3-1.2 [facility] Comment on above: Performed By: #### E BS CMP, EBS LIPID #### [address] Calcium [Mass/Vol] 9.2 mg/dL Normal 8.2-10.2 [facility] Comment on above: Performed By: #### E BS CMP, EBS LIPID #### [address] Chloride [Moles/Vol] 100 mmol/L Normal 95-114 [facility] Comment on above: Performed By: #### E BS CMP, EBS LIPID #### [address] CO2 [Moles/Vol] 20.6 mmol/L Low 22.0-30.0 [facility] Comment on above: Performed By: #### E BS CMP, EBS LIPID #### [facility] [address] [place] [address] Creatinine [Mass/Vol] 0.57 mg/dL Normal 0.44-1.03 [facility] Comment on above: Performed By: #### E BS CMP, EBS LIPID #### [facility] [address] [place] [address] [place] Estimated GFR ( Ni > 60 Normal [facility] Comment on above: Result Comment: GFR estimated reference range: According to KDOQI guidelines, <60 ml/min/1.73m2 is sufficient to diagnose a patient with chronic kidney disease. Performed By: #### E BS CMP, EBS LIPID #### [facility] [address] Estimated GFR (Non- Am > 60 Normal [facility] Comment on above: Performed By: #### E BS CMP, EBS LIPID #### [facility] [address] Globulin (S) [Mass/Vol] 3.7 g/dL Normal [facility] Comment on above: Performed By: #### E BS CMP, EBS LIPID #### [facility] [address] Glucose [Mass/Vol] 100 mg/dL Normal 70-100 [facility] Comment on above: Performed By: #### E BS CMP, EBS LIPID #### [facility] [address] Potassium [Moles/Vol] 3.9 mmol/L Normal 3.5-5.1 [facility] Comment on above: Performed By: #### E BS CMP, EBS LIPID #### [facility] [address] Protein [Mass/Vol] 7.4 g/dL Normal 6.1-7.9 [facility] Comment on above: Performed By: #### E BS CMP, EBS LIPID #### [facility] [address] Sodium [Moles/Vol] 135 mmol/L Low 136-146 [facility] Comment on above: Performed By: #### E BS CMP, EBS LIPID #### [facility] [address] [id number] [place] Urea nitrogen [Mass/Vol] 12 mg/dL Normal 9-23 [facility] Comment on above: Performed By: #### E BS CMP, EBS LIPID #### [facility] [address] [id number] [facility] Lipid Profileon 12-23-2021 Cholesterol [Mass/Vol] 213 mg/dL High 140-200 [facility] Comment on above: Result Comment: Chol less than 200 mg/dl low risk Chol 201-239 mg/dl borderline risk Chol 240 mg/dl and greater high risk Performed By: #### E BS CMP, EBS LIPID #### [facility] [address] [place] [address] Cholesterol in HDL [Mass/Vol] 36 mg/dL Normal 35-85 [facility] Comment on above: Result Comment: HDL CHOL ATP-III CLASSIFICATION Cardiovascular Risk HDL > or equal to 60 mg/dL LOW HDL < 40 mg/dL HIGH Performed By: #### E BS CMP, EBS LIPID #### [facility] [address] [place] [address] Cholesterol.total/Ch olesterol in HDL [Mass ratio] 5.9 {ratio} Normal <5.0 [facility] Comment on above: Result Comment: PERF ORMED BY: [place] [address] PATHOLOGIST [employer] MARIBEL AGUILLON M.D. Performed By: #### E BS CMP, EBS LIPID #### [facility] [address] [place] [address] LDL Cholesterol,Calculat ed 151 mg/dL High 0-100 [facility] Comment on above: Result Comment: LDL ATP III CLASSIFICATION LDL less than 100 mg/dL Optimal LDL 100-129 mg/dL Near or above optimal LDL 130-159 mg/dL Borderline high LDL 160-189 mg/dL High LDL greater than 189 mg/dL Very high Performed By: #### E BS CMP, EBS LIPID #### [facility] [address] [place] [address] Triglyceride w/Reflex 129 mg/dL Normal 35-149 [facility] Comment on above: Result Comment: TRIG ATP III CLASSIFICATION TRIG less than 150 mg/dL Normal TRIG 150-199 mg/dL Borderline high TRIG 200-500 mg/dL High TRIG greater than 500 mg/dL Very high Standard traceable to the Center for Disease Conrtrol and Prevention (CDC) test method. Performed By: #### E BS CMP, EBS LIPID #### [facility] [address] VLDL CHOLESTEROL 25 mg/dL Normal [facility] Comment on above: Performed By: #### E BS CMP, EBS LIPID #### [facility] [address] [id number] [facility] Covid-19 PCR (CVDTB)on 11-16 SARS-CoV-2 (COVID-19) RNA DEIRDRE+probe Ql (Unsp spec) Detected Critically abnormal NOT DETECTED [facility] Comment on above: Result Comment: This test is not yet approved or cleared by the [place] FDA. When there are no FDA-approved or cleared tests available, and other criteria are met, FDA can make tests available under an emergency access mechanism called an Emergency Use Authorization (EUA). The EUA for this test is supported by the [place] of Health and Human Service's declaration that [...] used). Performed By: #### C VDTBH #### [facility] [address] [place] [address] Dr. Mendel Herron INFLUENZA A AND B AGon 12-02 [facility] SEE BELOW Normal [facility] Comment on above: Result Comment: Nega tive for Flu A protein angiten. Infection due to Flu A cannot be ruled out. Flu A angiten in the sample may be below the detection limit of the test. Performed By: #### L IPID, CMP, T4, TSH, FT3 #### [facility] [address] [place] [address] Dr. Mendel Herron INFLUBNEG SEE BELOW Normal [facility] Comment on above: Result Comment: Nega tive for Flu B protein antigen. Infection due to Flu B cannot be ruled out. Flu B antigen in the sample may be below the detection limit of the test. Performed By: #### L IPID, CMP, T4, TSH, FT3 #### [facility] [address] [place] [address] Dr. Mendel Herron INFLUENZA A AG Negative Normal NEGATIVE SEE COMMENT [facility] Comment on above: Performed By: #### L IPID, CMP, T4, TSH, FT3 #### [facility] [address] [place], [place] [address] Dr. Mendel Herron INFLUENZA B AG Negative Normal NEGATIVE SEE COMMENT [facility] Comment on above: Performed By: #### L IPID, CMP, T4, TSH, FT3 #### [facility] [address] [place], [place] [address] Dr. Mendel Herron INTERNAL CONTROLS Within Normal Limits Normal Wi thin Normal Limits [facility] Comment on above: Performed By: #### L IPID, CMP, T4, TSH, FT3 #### [facility] [address] [place], [place] [address] Dr. Mendel Herron Cardiovascular Lab Reporton 08-18-2021 Cardiovascular Lab Report [facility] Patient Name: Antonio [facility] S MR #: [id number] Department of Physician: Curtis Martinez MD Medicine Service Date: 08/18/2021 Division of Birthdate: 1970 Cardiology Room #: Adult Cardiovascular Services [address] [address] Cardiovascular Laboratory Report ATRIAL FLUTTER ABLATION AND [...] ab (more content not included)... Normal [facility] BILL Antinuclear Antibodieson 04-23-2021 Antinuclear Abs, IFA Negative Normal . [facility] Comment on above: Result Comment: Nega tive <1:80 Borderline 1:80 Positive >1:80 ICAP nomenclature: [id number] For more information about Hep-2 cell patterns use ANApatterns.org, the official website for the International Consensus on Antinuclear Antibody (BILL) Patterns (ICAP). Performed at: [facility] [id number] Rail Specialist: Ger Yen PhD, Phone: [phone] PERFORMED BY: [place] [address] PATHOLOGIST [employer] MARIBEL AGUILLON M.D. Performed By: #### E SR, CRP, CBC, CREAT #### [address] #### BILL #### [facility] , C-Reactive Proteinon 021 C-Reactive Protein 0.7 mg/dL Normal 0.0-1.0 [facility] Comment on above: Result Comment: PERF ORMED BY: [place] [address] PATHOLOGIST [employer] MARIBEL AGUILLON M.D. Performed By: #### E SR, CRP, CBC, CREAT #### [address] #### BILL #### [facility] , Complement C3on 04-23-2021 Complement C3 170 mg/dL High 82-167 [facility] Comment on above: Result Comment: Perf ormed at: [facility] [address] [address] Rail Specialist: Ger Yen PhD, Phone: [phone] Performed By: #### A DDONUAPLUS #### [address] #### CH50, C3, C4 #### [facility] , Complement C4on 04-23-2021 Complement C4 14 mg/dL Normal 12-38 [facility] Comment on above: Performed By: #### A DDONUAPLUS #### [address] #### CH50, C3, C4 #### [facility] , Complement Total (CH50)on Complement Total (CH50) >60 Normal >41 [facility] Comment on above: Result Comment: [...] out of range values. Performed at: [address] [id number] Rail Specialist: Ger Yen PhD, Phone: [phone] PERFORMED BY: [place] [address] PATHOLOGIST [employer] MARIBEL AGUILLON M.D. Performed By: #### E BS CMP, EBS LIPID #### [address] Complete Blood Count Auto Di ffon 04-23-2021 Basophils (Bld) [#/Vol] 0.1 10*3/uL Normal 0.0-0.2 [facility] Comment on above: Performed By: #### E SR, CRP, CBC, CREAT #### [place] [address] [place] #### BILL #### [facility] , Basophils/100 WBC (Bld) 0.7 % Normal . [facility] Comment on above: Performed By: #### E SR, CRP, CBC, CREAT #### [facility] [address] [place] [address] #### BILL #### [facility] , Eosinophils (Bld) [#/Vol] 0.1 10*3/uL Normal 0.0-0.45 [facility] Comment on above: Performed By: #### E SR, CRP, CBC, CREAT #### [address] #### BILL #### [facility] , Eosinophils/100 WBC (Bld) 0.5 % Normal . [facility] Comment on above: Performed By: #### E SR, CRP, CBC, CREAT #### [place] [address] [place] #### BILL #### [facility] , Erythrocyte distribution width (RBC) [Ratio] 18.0 % High 11.9-15.3 [facility] Comment on above: Performed By: #### E SR, CRP, CBC, CREAT #### [facility] [address] [place] [address] [place] #### BILL #### [facility] , Hematocrit (Bld) [Volume fraction] 31.6 % Low 34.0-46.4 [facility] Comment on above: Performed By: #### E SR, CRP, CBC, CREAT #### [place] [address] [place] #### BILL #### [facility] , Hemoglobin (Bld) [Mass/Vol] 9.8 g/dL Low 11.8-15.4 [facility] Comment on above: Performed By: #### E SR, CRP, CBC, CREAT #### [facility] [address] [place] [address] [place] #### BILL #### [facility] , Lymphocytes (Bld) [#/Vol] 1.7 10*3/uL Normal 1.00-4.8 [facility] Comment on above: Performed By: #### E SR, CRP, CBC, CREAT #### [address] #### BILL #### [facility] , Lymphocytes/100 WBC (Bld) 15.0 % Normal . [facility] Comment on above: Performed By: #### E SR, CRP, CBC, CREAT #### [address] #### BILL #### [facility] , MCH (RBC) [Entitic mass] 24.8 pg Normal 24.7-34.3 [facility] Comment on above: Performed By: #### E SR, CRP, CBC, CREAT #### [place] [address] [place] #### BILL #### [facility] , MCV (RBC) [Entitic vol] 80.1 fL Normal 80-100 [facility] Comment on above: Performed By: #### E SR, CRP, CBC, CREAT #### [place] [address] [place] #### BILL #### [facility] , Mean Corpuscular HGB Conc 31.0 g/dL Low 32.0-35.0 [facility] Comment on above: Performed By: #### E SR, CRP, CBC, CREAT #### [address] #### BILL #### [facility] , Monocytes (Bld) [#/Vol] 0.5 10*3/uL Normal 0.0-0.8 [facility] Comment on above: Performed By: #### E SR, CRP, CBC, CREAT #### [place] [address] [place] #### BILL #### [facility] , Monocytes/100 WBC (Bld) 4.6 % Normal . [facility] Comment on above: Performed By: #### E SR, CRP, CBC, CREAT #### [address] #### BILL #### [facility] , Neutrophils (Bld) [#/Vol] 9.1 10*3/uL High 1.8-7.7 [facility] Comment on above: Performed By: #### E SR, CRP, CBC, CREAT #### [address] #### BILL #### [facility] , Neutrophils/100 WBC (Bld) 79.2 % Normal . [facility] Comment on above: Performed By: #### E SR, CRP, CBC, CREAT #### [place] [address] [place] #### BILL #### [facility] , Nucleated RBC/100 WBC (Bld) [Ratio] 0.1 % Normal 0-0.5 [facility] Comment on above: Performed By: #### E SR, CRP, CBC, CREAT #### [place] [address] [place] #### BILL #### [facility] , Platelet mean volume (Bld) [Entitic vol] 8.3 fL Normal 6.3-10.7 [facility] Comment on above: Performed By: #### E SR, CRP, CBC, CREAT #### [facility] [address] [place] [address] [place] #### BILL #### [facility] , Platelets (Bld) [#/Vol] 336 10*3/uL Normal 150-450 [facility] Comment on above: Performed By: #### E SR, CRP, CBC, CREAT #### [facility] [address] [place] [address] [place] #### BILL #### [facility] , RBC (Bld) [#/Vol] 3.94 10*6/uL Normal 3.60-5.00 [facility] Comment on above: Performed By: #### E SR, CRP, CBC, CREAT #### [facility] [address] [place] [address] [place] #### BILL #### [facility] , WBC (Bld) [#/Vol] 11.5 10*3/uL High 4.5-11.0 [facility] Comment on above: Performed By: #### E SR, CRP, CBC, CREAT #### [facility] [address] [place] [address] #### BILL #### [facility] , Creatinineon 04-23-2021 Creatinine [Mass/Vol] 0.75 mg/dL Normal 0.44-1.03 [facility] Comment on above: Performed By: #### E SR, CRP, CBC, CREAT #### [facility] [address] [place] [address] [place] #### BILL #### [facility] , Estimated GFR ( Ni > 60 Normal [facility] Comment on above: Result Comment: GFR estimated reference range: According to KDOQI guidelines, <60 ml/min/1.73m2 is sufficient to diagnose a patient with chronic kidney disease. Performed By: #### E SR, CRP, CBC, CREAT #### [facility] [address] [place] [address] #### BILL #### [facility] , Estimated GFR (Non- Am > 60 Normal [facility] Comment on above: Performed By: #### E SR, CRP, CBC, CREAT #### [facility] [address] [place] [address] #### BILL #### [facility] , Dipstick and Microscopicon 1 Appearance (U) Clear Normal Clear [facility] Comment on above: Order Comment: Name Collection Type:: Clean-Voided Midstream Performed By: #### A DDONUAPLUS #### [address] #### CH50, C3, C4 #### [facility] , Bacteria,Urine None Seen Normal None Seen [facility] Comment on above: Order Comment: Name Collection Type:: Clean-Voided Midstream Performed By: #### A DDONUAPLUS #### [facility] [address] [place] [address] #### CH50, C3, C4 #### [facility] , Bilirubin,Urine Negative Normal Negative [facility] Comment on above: Order Comment: Name Collection Type:: Clean-Voided Midstream Performed By: #### A DDONUAPLUS #### [facility] [address] [place] [address] #### CH50, C3, C4 #### [facility] , Color (U) Yellow Normal Yellow [facility] Comment on above: Order Comment: Name Collection Type:: Clean-Voided Midstream Performed By: #### A DDONUAPLUS #### [facility] [address] [place] [address] #### CH50, C3, C4 #### [facility] , Glucose Ql (U) 100 mg/dL High Normal [facility] Comment on above: Order Comment: Name Collection Type:: Clean-Voided Midstream Performed By: #### A DDONUAPLUS #### [address] #### CH50, C3, C4 #### [facility] , Hyaline Casts,Urine 0-8 Normal 0-8 [facility] Comment on above: Order Comment: Name Collection Type:: Clean-Voided Midstream Result Comment: PERF ORMED BY: [place] [address] PATHOLOGIST [employer] MARIBEL AGUILLON M.D. Performed By: #### A DDONUAPLUS #### [address] #### CH50, C3, C4 #### [facility] , Ketones Ql (U) Negative Normal Negative [facility] Comment on above: Order Comment: Name Collection Type:: Clean-Voided Midstream Performed By: #### A DDONUAPLUS #### [address] #### CH50, C3, C4 #### [facility] , Leukocyte esterase Test strip Ql (U) Negative Normal Negative [facility] Comment on above: Order Comment: Name Collection Type:: Clean-Voided Midstream Performed By: #### A DDONUAPLUS #### [address] #### CH50, C3, C4 #### [facility] , Nitrite,Urine Negative Normal Negative [facility] Comment on above: Order Comment: Name Collection Type:: Clean-Voided Midstream Performed By: #### A DDONUAPLUS #### [address] #### CH50, C3, C4 #### [facility] , Occult Blood,Urine Negative Normal Negative [facility] Comment on above: Order Comment: Name Collection Type:: Clean-Voided Midstream Performed By: #### A DDONUAPLUS #### [address] #### CH50, C3, C4 #### [facility] , pH (U) 5.0 [pH] Normal 5.0-9.0 [facility] Comment on above: Order Comment: Name Collection Type:: Clean-Voided Midstream Performed By: #### A DDONUAPLUS #### [address] #### CH50, C3, C4 #### [facility] , Protein,Urine Negative Normal Negative [facility] Comment on above: Order Comment: Name Collection Type:: Clean-Voided Midstream Performed By: #### A DDONUAPLUS #### [address] #### CH50, C3, C4 #### [facility] , RBC,Urine None Seen Normal 0-4 [facility] Comment on above: Order Comment: Name Collection Type:: Clean-Voided Midstream Performed By: #### A DDONUAPLUS #### [address] #### CH50, C3, C4 #### [facility] , Specificy Bevier,Urine 1.009 Normal 1.001-1.030 [facility] Comment on above: Order Comment: Name Collection Type:: Clean-Voided Midstream Performed By: #### A DDONUAPLUS #### [address] #### CH50, C3, C4 #### [facility] , Squamous Epithelial Cell,Urine 0-1 Normal 0-2 [facility] Comment on above: Order Comment: Name Collection Type:: Clean-Voided Midstream Performed By: #### A DDONUAPLUS #### [address] #### CH50, C3, C4 #### [facility] , Urobilinogen,Urine Normal Normal Normal [facility] Comment on above: Order Comment: Name Collection Type:: Clean-Voided Midstream Performed By: #### A DDONUAPLUS #### [facility] [address] [place] [address] [place] #### CH50, C3, C4 #### [facility] , WBC LM.HPF (Urine sed) [#/Area] 0 /[HPF] Normal 0-4 [facility] Comment on above: Order Comment: Name Collection Type:: Clean-Voided Midstream Performed By: #### A DDONUAPLUS #### [address] #### CH50, C3, C4 #### [facility] , Erythrocyte Sedimentation Ra ryley 04-23-2021 ESR (Bld) [Velocity] 55 mm/h High 0-29 [facility] Comment on above: Result Comment: PERF ORMED BY: [place] [address] PATHOLOGIST [employer] MARIBEL AGUILLON M.D. Performed By: #### E SR, CRP, CBC, CREAT #### [facility] [address] [place] [address] #### BILL #### [facility] , BASIC METABOLIC PANELon 03-20 Calcium [Mass/Vol] 8.7 mg/dL Normal 8.6-10.3 [facility] Comment on above: Order Comment: No: D o not add to previous draw Performed By: #### 5 7307, 59340 #### [facility] [address] [place] [address], [place] Chloride [Moles/Vol] 97 mmol/L Low 98-107 [facility] Comment on above: Order Comment: No: D o not add to previous draw Performed By: #### 5 73, 02325 #### [facility] [address] [place] [address], [place] CO2 [Moles/Vol] 36 mmol/L High 21-31 [facility] Comment on above: Order Comment: No: D o not add to previous draw Performed By: #### 5 7307, 18844 #### [facility] [address] [place] [address], [place] Creatinine [Mass/Vol] 0.74 mg/dL Normal 0.60-1.[address] [facility] Comment on above: Order Comment: No: D o not add to previous draw Performed By: #### 5 7307, 81837 #### [facility] [address] [place] [address], [place] GFR/1.73 sq M.predicted among blacks MDRD (S/P/Bld) [Vol rate/Area] mL/min/{1.73_m2} Normal >[address] [facility] Comment on above: Order Comment: No: D o not add to previous draw Performed By: #### 5 7307, 88300 #### [facility] [address] [place] [address], [place] GFR/1.73 sq M.predicted among non-blacks MDRD (S/P/Bld) [Vol rate/Area] mL/min/{1.73_m2} Normal >[address] [facility] Comment on above: Order Comment: No: D o not add to previous draw Performed By: #### 5 7307, 06660 #### [facility] [address] [place] [address], [place] Glucose [Mass/Vol] 123 mg/dL High 70-100 [facility] Comment on above: Order Comment: No: D o not add to previous draw Performed By: #### 5 7307, 58684 #### [facility] [address] [place] [address], [place] Potassium [Moles/Vol] 4.3 mmol/L Normal 3.5-5.1 [facility] Comment on above: Order Comment: No: D o not add to previous draw Performed By: #### 5 7307, 98695 #### [facility] [address] [place] [address], [place] Sodium [Moles/Vol] 139 mmol/L Normal 136-145 [facility] Comment on above: Order Comment: No: D o not add to previous draw Performed By: #### 5 7307, 91005 #### [facility] [address] [place] [address], [facility] Urea nitrogen [Mass/Vol] 24 mg/dL Normal 7-25 [facility] Comment on above: Order Comment: No: D o not add to previous draw Performed By: #### 5 73, 60288 #### [facility] [address] [place] [address], [facility] CBC COMPLETE BLOOD COUNTon 0 04-11-2021 Erythrocyte distribution width (RBC) [Ratio] 16.8 % High 11.5-15.0 [facility] Comment on above: Order Comment: No: D o not add to previous draw Performed By: #### 5 7307, 67804 #### [facility] [address] [place] [address], [facility] Hematocrit (Bld) [Volume fraction] 29.7 % Low 36.0-45.0 [facility] Comment on above: Order Comment: No: D o not add to previous draw Performed By: #### 5 7307, 22083 #### [facility] [address] [place] [address], [facility] Hemoglobin (Bld) [Mass/Vol] 8.9 g/dL Low 12.0-15.0 [facility] Comment on above: Order Comment: No: D o not add to previous draw Performed By: #### 5 7307, 78092 #### [facility] [address] MCH (RBC) [Entitic mass] 25.4 pg Low 27.0-33.0 [facility] Comment on above: Order Comment: No: D o not add to previous draw Performed By: #### 5 7307, 13857 #### [facility] [address] [place] [id number], [facility] MCHC (RBC) [Mass/Vol] 30.0 g/dL Low 32.0-35.0 [facility] Comment on above: Order Comment: No: D o not add to previous draw Performed By: #### 5 7306, 78904 #### [facility] [address] [facility] [address], [facility] MCV (RBC) [Entitic vol] 84.9 fL Normal 82.0-98.0 [facility] Comment on above: Order Comment: No: D o not add to previous draw Performed By: #### 5 73, 96699 #### [facility] [address] [place] [address], [facility] Nucleated RBC/100 WBC (Bld) [Ratio] 0 % Normal 0-0 [facility] Comment on above: Order Comment: No: D o not add to previous draw Performed By: #### 5 73, 52169 #### [facility] [address] [place] [address], [facility] PLAT CNT 446 10*3/uL High 150-400 [facility] Comment on above: Order Comment: No: D o not add to previous draw Performed By: #### 5 73, 71365 #### [facility] [address] [place] [address], [facility] RBC (Bld) [#/Vol] 3.50 10*6/uL Low 3.80-5.00 [facility] Comment on above: Order Comment: No: D o not add to previous draw Performed By: #### 5 73, 69284 #### [facility] [address] [facility]. [address] WBC (Bld) [#/Vol] 16.54 10*3/uL High 4.00-10.60 [facility] Comment on above: Order Comment: No: D o not add to previous draw Performed By: #### 5 7307, 37821 #### [facility] [address] Cardiovascular Lab Reporton 04-11-2021 Cardiovascular Lab Report [facility] Patient Name: Antonio [facility] S MR #: [id number] Department of Physician: London Rodas M.D. Division of Service Date: 04/11/2021 Cardiology Birthdate: 1970 Adult Cardiovascular Room #: 5AB [id number] [place] [address] Cardiovascular Laboratory Report PROCEDURE PERFORMED: Transesophageal echocardiogram and cardioversion. INDICATION: Atrial flutter. FELLOW: Dunia Sierra MD PROCEDURE IN DETAIL: Informed consent was obtained from the patient after explaining the indication, risks, benefits, as well as alternatives. The patient understood and agreed, and signed the consent form. The patient was brought to the finishing lab technician and transesophageal echocardiogram was performed, under conscious [...] Sierra MD Date Trans: 04/11/2021 12:53 P/siriao [id number] cc: Phillip Ann M.D. [address] [place] [address] Normal [facility] MAGNESIUM BLOODon 04-11-2021 Magnesium [Mass/Vol] 2.3 mg/dL Normal 1.9-2.7 [facility] Comment on above: Order Comment: No: D o not add to previous draw Performed By: #### 5 7307, 28577 #### [facility] [address] [place] [address], [facility] POC GLUCOSE LABon 04-11-2021 Glucose [Mass/Vol] 124 mg/dL High 70-100 [facility] Comment on above: Performed By: #### 5 7307, 26755 #### [facility] [address] [place] [address], [facility] TROPONIN-Ion 04-11-2021 Troponin I.cardiac [Mass/Vol] 0.06 ng/mL High 0.00-0.04 [facility] Comment on above: Order Comment: No: D o not add to previous draw Result Comment: REFE RENCE RANGES: 0.00 - 0.04 ng/ml NORMAL 0.05 - 0.50 ng/ml INDETERMINATE > 0.50 ng/ml CONSISTENT WITH AN M.I. Performed By: #### 5 7307, 33975 #### [facility] [address] [place] [address], [facility] *BLOOD CULTUREon 04-10-2021 *BLOOD CULTURE Clinical Report: (D) Specimen: BLOOD CULTURE Collected: 04/10/2021 09:50 Status: Final Last Updated: 04/15/2021 11:28 (1) Right hand CULT RES (Final) No Growth Day 5 Normal [facility] Comment on above: Order Comment: No: D o not add to previous draw Performed By: #### 5 7307, 10129 #### [facility] [address] [facility] [address] *BLOOD CULTURE Clinical Report: (D) Specimen: BLOOD CULTURE Collected: 04/10/2021 09:50 Status: Final Last Updated: 04/15/2021 11:28 (1) Left hand CULT RES (Final) No Growth Day 5 Normal [facility] Comment on above: Order Comment: No: D o not add to previous draw Performed By: #### 5 7307, 85410 #### [facility] [address] [facility] [address] *SARS-CoV-2 COVID-19on 04-10 SARS-CoV-2 (COVID-19) RNA DEIRDRE+probe Ql (Unsp spec) Not detected Normal Not Detected [facility] Comment on above: Order Comment: No: D o not add to previous draw Performed By: #### 5 7307, 15179 #### [facility] [address] APTTon 04-10-2021 aPTT Coag (Bld) [Time] 23.4 s Low 25.0-35.0 [facility] Comment on above: Order Comment: [...] THIS PURPOSE. Performed By: #### 5 7307, 61966 #### [facility] [address] aPTT Coag (Bld) [Time] 23.2 s Low 25.0-35.0 [facility] Comment on above: Order Comment: [...] THIS PURPOSE. Performed By: #### 5 7307, 78606 #### [facility] [address] BASIC METABOLIC PANELon - Calcium [Mass/Vol] 8.6 mg/dL Normal 8.6-10.3 [facility] Comment on above: Order Comment: No: D o not add to previous draw Performed By: #### 1 0070, 09353, 10021 #### [facility] [address] [place] [address], [facility] Chloride [Moles/Vol] 99 mmol/L Normal 98-107 [facility] Comment on above: Order Comment: No: D o not add to previous draw Performed By: #### 1 0070, 81017, 35671 #### [facility] [address] [place] [address], [facility] CO2 [Moles/Vol] 32 mmol/L High 21-31 [facility] Comment on above: Order Comment: No: D o not add to previous draw Performed By: #### 1 0070, 46428, 51307 #### [facility] [address] [place] [address], [facility] Creatinine [Mass/Vol] 0.84 mg/dL Normal 0.60-1.20 [facility] Comment on above: Order Comment: No: D o not add to previous draw Performed By: #### 1 0070, 81467, 53316 #### [facility] [address] [place] [address], [facility] GFR/1.73 sq M.predicted among blacks MDRD (S/P/Bld) [Vol rate/Area] mL/min/{1.73_m2} Normal >60 [facility] Comment on above: Order Comment: No: D o not add to previous draw Performed By: #### 1 0, 31558, 06167 #### [facility] [address] [place] [address], [place] GFR/1.73 sq M.predicted among non-blacks MDRD (S/P/Bld) [Vol rate/Area] mL/min/{1.73_m2} Normal >60 [facility] Comment on above: Order Comment: No: D o not add to previous draw Performed By: #### 1 0, 00080, 97124 #### [facility] [address] [place] [address], [place] Glucose [Mass/Vol] 117 mg/dL High 70-100 [facility] Comment on above: Order Comment: No: D o not add to previous draw Performed By: #### 1 0, 08094, 13686 #### [facility] [address] [place] [address], [place] Potassium [Moles/Vol] 3.9 mmol/L Normal 3.5-5.1 [facility] Comment on above: Order Comment: No: D o not add to previous draw Performed By: #### 1 0, 83965, 55979 #### [facility] [address] [place] [address], [place] Sodium [Moles/Vol] 139 mmol/L Normal 136-145 [facility] Comment on above: Order Comment: No: D o not add to previous draw Performed By: #### 1 0, 31461, 03037 #### [facility] [address] [place] [address], [place] Urea nitrogen [Mass/Vol] 19 mg/dL Normal 7-25 [facility] Comment on above: Order Comment: No: D o not add to previous draw Performed By: #### 1 0, 95244, 73994 #### [facility] [address] [facility]. [address] BNP (B-TYPE NATRIURETIC PEPT MARILYN)on 04-10-2021 Natriuretic peptide B (Bld) [Mass/Vol] 259 pg/mL High 0-100 [facility] Comment on above: Order Comment: No: D o not add to previous draw Result Comment: Give n the appropriate clinical setting a BNP result of >100 pg/mL indicates congestive heart failure. Performed By: #### 5 7307, 06639 #### [facility] [address] [facility] [place] [address], [facility] CBC W/DIFFon 04-10-2021 ABS IMM GRANS 1.1 10*3/uL High 0.0-0.2 [facility] Comment on above: Performed By: #### 5 0103 #### [facility] [address] [facility] [place] [address], [facility] ABS NEUTROPHILS 9.6 10*3/uL High 1.6-7.6 [facility] Comment on above: Performed By: #### 5 0103 #### [facility] [address] [place] [address], [facility] ANISO MODERATE Normal [facility] Comment on above: Performed By: #### 5 0103 #### [facility] [address] [facility] [place] [address], [facility] Basophils (Bld) [#/Vol] 0.1 10*3/uL Normal 0.0-0.2 [facility] Comment on above: Performed By: #### 5 0103 #### [facility] [address] [facility] [place] [address], [facility] Basophils/100 WBC (Bld) 0.7 % Normal 0.0-1.0 [facility] Comment on above: Performed By: #### 5 3 #### [facility] [address] [facility] [place] [address], [facility] Eosinophils (Bld) [#/Vol] 0.1 10*3/uL Normal 0.0-0.5 [facility] Comment on above: Performed By: #### 5 0103 #### [facility] [address] [facility]. [address] Eosinophils/100 WBC (Bld) 0.4 % Normal 0.0-6.0 [facility] Comment on above: Performed By: #### 5 0103 #### [facility] [address] [facility] [address] Erythrocyte distribution width (RBC) [Ratio] 16.5 % High 11.5-15.0 [facility] Comment on above: Performed By: #### 5 0103 #### [facility] [address] [facility] [address] Hematocrit (Bld) [Volume fraction] 31.2 % Low 36.0-45.0 [facility] Comment on above: Performed By: #### 5 0103 #### [facility] [address] [facility]. [address] Hemoglobin (Bld) [Mass/Vol] 9.0 g/dL Low 12.0-15.0 [facility] Comment on above: Performed By: #### 5 0103 #### [facility] [address] [facility] [place] [address], [facility] HYPO SLIGHT Normal [facility] Comment on above: Performed By: #### 5 0103 #### [facility] [address] [facility] [place] [address], [facility] IMMATURE GRANS 6.8 % High 0.0-1.0 [facility] Comment on above: Performed By: #### 5 0103 #### [facility] [address] [place] [address], [facility] Lymphocytes (Bld) [#/Vol] 4.4 10*3/uL High 1.2-4.0 [facility] Comment on above: Performed By: #### 5 3 #### [facility] [address] [facility] [place] [address], [facility] Lymphocytes/100 WBC (Bld) 26.4 % Normal 20.0-45.0 [facility] Comment on above: Performed By: #### 5 3 #### [facility] [address] [facility] [place] [address], [facility] MCH (RBC) [Entitic mass] 25.3 pg Low 27.0-33.0 [facility] Comment on above: Performed By: #### 5 3 #### [facility] [address] [facility] [place] [address], [facility] MCHC (RBC) [Mass/Vol] 28.8 g/dL Low 32.0-35.0 [facility] Comment on above: Performed By: #### 5 3 #### [facility] [address] [facility] [place] [address], [facility] MCV (RBC) [Entitic vol] 87.6 fL Normal 82.0-98.0 [facility] Comment on above: Performed By: #### 5 102 #### [facility] [address] [facility] [place] [address], [facility] Monocytes (Bld) [#/Vol] 1.3 10*3/uL High 0.1-1.0 [facility] Comment on above: Performed By: #### 5 3 #### [facility] [address] [facility] [place] [address], [facility] MONOS 7.6 % Normal 5.0-12.0 [facility] Comment on above: Performed By: #### 5 3 #### [facility] [address] [place] [address], [facility] Neutrophils/100 WBC (Bld) 58.1 % Normal 40.0-72.0 [facility] Comment on above: Performed By: #### 102 #### [facility] [address] [place] [address], [facility] Nucleated RBC/100 WBC (Bld) [Ratio] 1 % High 0-[address] [facility] Comment on above: Performed By: #### 5 0103 #### [facility] [address] [place] [address], [facility] PLAT CNT 483 10*3/uL High 150-400 [facility] Comment on above: Performed By: #### 5 0103 #### [facility] [address] [place] [address], [facility] POIK SLIGHT Normal [facility] Comment on above: Performed By: #### 5 0103 #### [facility] [address] [facility] [place] [address], [facility] POLY SLIGHT Normal [facility] Comment on above: Performed By: #### 5 0103 #### [facility] [address] [place] [address], [facility] RBC (Bld) [#/Vol] 3.56 10*6/uL Low 3.80-5.00 [facility] Comment on above: Performed By: #### 5 0103 #### [facility] [address] [facility] [place] [address], [facility] WBC (Bld) [#/Vol] 16.54 10*3/uL High 4.00-10.[address] [facility] Comment on above: Performed By: #### 5 0103 #### [facility] [address] [facility] [place] [address], [facility] LIPID PROFILEon 04-10-2021 Cholesterol [Mass/Vol] 161 mg/dL Normal 120-200 [facility] Comment on above: Result Comment: CHOL ESTEROL REFERENCE RANGE: 20 YEARS AND OLDER CARDIOVASCULAR RISK Less than 200 mg/dl Low Risk 200 to 239 mg/dl Borderline Risk 240 mg/dl and greater High Risk Performed By: #### 3 1569, 71424, 38994 #### [facility] [address] [place] [address], [place] Cholesterol in HDL [Mass/Vol] 61 mg/dL Normal 23-[address] [facility] Comment on above: Result Comment: Slig ht variation in normal range could be due to gender and/or age. HDL CHOLESTEROL REFERENCE RANGE: 20 years and older Cardiovascular Risk > or =60 mg/dL Desirable 40 TO 59 mg/dL Low Risk <40 mg/dL High Risk Performed By: #### 3 1569, 18141, 55868 #### [facility] [address] [place] [address], [place] Cholesterol in LDL [Mass/Vol] 28 mg/dL Normal 0-[address] [facility] Comment on above: Result Comment: LDL IS A CALCULATION LDL IS ONLY VALID IF THE TRIG IS LESS THAN 400. Performed By: #### 3 1569, 38327, 24669 #### [facility] [address] [place] [address], [place] Cholesterol.total/Ch olesterol in HDL [Mass ratio] 2.6 {ratio} Normal .0-4.[address] [facility] Comment on above: Performed By: #### 3 1569, 31134, 25114 #### [facility] [address] [place] [address], [place] NON-HDL CHOLESTEROL 100 mg/dL Normal [facility] Comment on above: Performed By: #### 3 1569, 37817, 03195 #### [facility] [address] [place] [address], [place] Triglyceride [Mass/Vol] 362 mg/dL High 40-149 [facility] Comment on above: Result Comment: TRIG LYCERIDE REFERENCE RANGE: 20 YEARS AND OLDER CARDIOVASCULAR RISK LESS THAN 150 mg/dl LOW RISK 150 TO 199 mg/dl BORDERLINE RISK 200 mg/dl AND GREATER HIGH RISK Performed By: #### 3 1569, 41252, 20494 #### [facility] [address] [place] [address], [facility] VLDL CHOL 72 mg/dL High 0-40 [facility] Comment on above: Performed By: #### 3 1569, 84051, 50509 #### [facility] [address] [place] [address], [facility] MAGNESIUM BLOODon 04-10-2021 Magnesium [Mass/Vol] 2.4 mg/dL Normal 1.9-2.7 [facility] Comment on above: Order Comment: No: D o not add to previous draw Performed By: #### 1 0070, 97309, 61368 #### [facility] [address] [place] [address], [facility] POC GLUCOSE LABon 04-10-2021 Glucose [Mass/Vol] 350 mg/dL High 70-100 [facility] Comment on above: Performed By: #### 5 7307, 53849 #### [facility] [address] [place] [address], [facility] Glucose [Mass/Vol] 249 mg/dL High 70-100 [facility] Comment on above: Performed By: #### 5 7307, 89393 #### [facility] [address] [place] [address], [facility] PROCALCITONINon 04-10-2021 PROCALCITONIN 0.09 ng/mL Normal 0.00-0.10 [facility] Comment on above: Order Comment: No: D [...] initial PCT<0.5ng/mL Performed By: #### 5 7307, 70961 #### [facility] [address] PROTHROMBIN TIMEon 1 INR Coag (PPP) [Relative time] 1.07 {INR} Normal 0.91-1.16 [facility] Comment on above: Order Comment: [...] CHEST 1995;108:[id number]. Performed By: #### 5 7307, 31745 #### [facility] [address] [place] [address], [facility] PT Coag (PPP) [Time] 13.9 s Normal 12.3-14.[address] [facility] Comment on above: Order Comment: No: D o not add to previous draw Result Comment: ALL RESULTS MUST BE INTERPRETED WITH RESPECT TO BLOOD DRAWING ARTIFACT OR DILUTION ERROR OF ANTICOAGULANT AT THE TIME OF SAMPLING. Performed By: #### 5 7307, 85480 #### [facility] [address] [place] [address], [facility] TROPONIN-Ion 04-10-2021 Troponin I.cardiac [Mass/Vol] 0.07 ng/mL High 0.00-0.[address] [facility] Comment on above: Order Comment: No: D o not add to previous draw Result Comment: REFE RENCE RANGES: 0.00 - 0.04 ng/ml NORMAL 0.05 - 0.50 ng/ml INDETERMINATE > 0.50 ng/ml CONSISTENT WITH AN M.I. Performed By: #### 3 1569, 60976, 49368 #### [facility] [address] [facility] [place] [address], [facility] Troponin I.cardiac [Mass/Vol] 0.07 ng/mL High 0.00-0.[address] [facility] Comment on above: Order Comment: No: D o not add to previous draw Result Comment: REFE RENCE RANGES: 0.00 - 0.04 ng/ml NORMAL 0.05 - 0.50 ng/ml INDETERMINATE > 0.50 ng/ml CONSISTENT WITH AN M.I. Performed By: #### 1 0070, 94495, 69732 #### [facility] [address] [place] [address], [facility] TSH3 WITH REFLEX FT4on 04-10 TSH 3RD GENERATION 0.95 uIU/mL Normal 0.34-5.60 [facility] Comment on above: Order Comment: Yes: Add to Previous draw if able Performed By: #### 3 1569 #### [facility] [address] TSH 3RD GENERATION 3.12 uIU/mL Normal 0.34-5.60 [facility] Comment on above: Performed By: #### 3 1569, 65664, 04975 #### [facility] [address] UFH HEPARIN ASSAYon 04-10-20 21 UNFRACTIONATED HEPARIN >1.00 Critically high 0.30-0.70 [facility] Comment on above: Result Comment: Resu lt checked and called. Accurately read back by Haven Avila RN at 1122 per RN patient may have previously been given Eliquis. UFH = 1.36 for pharmacy use Rivaroxaban and Apixaban will interfere with the anti Xa assay used to monitor UFH and LMWH. Performed By: #### 5 7307, 76897 #### [facility] [address] Cardiovascular Lab Reporton 01-30-2021 Cardiovascular Lab Report [facility] Patient Name: Antonio [facility] S MR #: [id number] Department of Physician: [place] Ross MRobbin Division of Service Date: 01/30/2021 Cardiology Birthdate: 1970 Adult Cardiovascular Room #: [place] [address] Cardiovascular Laboratory Report FINAL IMPRESSIONS: 1. Moderately [...] 5. Follow up with Cardiology in the [facility] Cardiology office in the next 2 [...] right internal jugular vein was obtained. A 6-Danish glide sheath was inserted without difficulty. A [...] Bear M.D. Date Trans: 01/30/2021 02:48 P/marixa [id number] cc: Phillip Ann M.D. [address] [facility] [id number] [facility] Vital Signs Date Time Vital Sign Value Performing Clinician Iman stafford 09-15-2022 15:24-0500 Blood Pressure Location Juan Miguel OSHEATeodoro [facility] [place] 09-15-2022 15:24-0500 Diastolic blood pressure 78 mm[Hg] Juan Miguel DAYOL [facility] [place] 09-15-2022 15:24-0500 Heart rate 70 /min Juan Miguel NILL [facility] [place] 09-15-2022 15:24-0500 Respiratory rate 16 /min Juan Miguel NILL [facility] [place] 09-15-2022 15:24-0500 Systolic blood pressure 116 mm[Hg] Juan Miguel NILL [facility] [place] Encounters Encounter Date Encounter Type Care Provider Facility Start: 04-04-2024 ambulatory Juan Miguel Ortiz BRAD Facility : [place] Start: 01-11-2024 ambulatory [facility] Start: 12-28-2023 ambulatory [facility] Start: 10-26-2023 End: 10-26-2023 ambulatory JENNA [facility] Start: 05-05-2023 End: 05-05-2023 ambulatory STAC[facility] Start: 11-17-2022 End: 11-17-2022 ambulatory [...] Evaluation and management of inpatient PHILLIP ANN Facility:[facility] Start: 01-30-2021 End: 01-31-2021 [facility] Procedures Date Procedure Procedure Detail Performing Clinician Start: 04-11-2021 Quaker of Cardi ac Rhythm, Single SAMER Sony [...] unspecified formulation Juan Miguel SALINAS [facility] [place] 10-29-2020 SARS-CoV-2 (COVID-19 ) mRNA-1273 vaccine Juan Miguel SALINAS [facility] [place] 10-25-2020 SARS-CoV-2 (COVID-19 ) mRNA BNT-162b2 vax Juan Miguel NILL [facility] [place] Comment on above: Result Comment: 2022: [id number] 10-24-2020 SARS-CoV-2 (COVID-19 ) mRNA BNT-162b2 vax Juan Miguel NILL [facility] 10-04-2020 SARS-CoV-2 (COVID-19 ) mRNA BNT-162b2 vax Juan Miguel NILL [facility] [place] Comment on above: Result Comment: 2022: [id number] 10-03-2020 SARS-CoV-2 (COVID-19 ) mRNA BNT-162b2 vax Juan Miguel NILL [facility] Payers Date Payer Category Payer Unknown [id number] 1970 Unknown [id number] 2.16.8 [id number] 1970 Unknown [id number] 2.16.8 40.1.794057.3.579.2.647 1970 Unknown [id number] 2.16.84 0.1.246469.3.579.2.593 1970 Unknown [id number] 2.16.84 0.1.153785.3.579.2.593 1970 Unknown [id number] 2.16.84 0.1.000635.3.579.2.593 1970 Unknown [id number] 2.16.84 0.1.240249.3.579.2.593 1970 Unknown [id number] 2.16.84 0.1.171720.3.579.2.593 1970 Unknown [id number] 2.16.84 0.1.623539.3.579.2.593 1970 Unknown [id number] 2.16.84 0.1.218836.3.579.2.593 1970 Unknown [id number] 2.16.84 0.1.184667.3.579.2.593 1970 Unknown [id number] 2.16.84 0.1.536711.3.579.2.593 1970 Unknown [id number] 2.16.84 0.1.894779.3.579.2.593 1970 Unknown [id number] 2.16.84 0.1.267883.3.579.2.593 1970 Unknown [id number] 2.16.84 0.1.096691.3.579.2.593 1970 Unknown [id number] 2.16.84 0.1.302878.3.579.2.593 1970 Unknown [id number] 2.16.8 40.1.701522.3.579.2.727 1961 Unknown [id number] 1961 Unknown [id number] 1961 Unknown [id number] 1961 Unknown [id number] Social History Date Type Detail Facility Start: 09-15-2022 Tobacco smoking status Ex-smoker (fi nding) [facility] [place] Tobacco smoking status Never [facility] [place] [facility] Medical Equipment Procedure Code Equipment Code Equipment Origin al Text Equipment Identifier Dates lancets, glucome ter, alcohol swabs, testing strips, insulin pen needles, Print Requisition, Supply Start: 08-25-2021 Functional Status Date Assessment Result Facility 09-15-2022 Functional Status N/A [facility] 10-26-2023 Note Date & [...] All other systems reviewed and are negative. [facility] Progress note 10-26-2023 Note Date & Type Note Facility 10-26-2023 Note Cardiovascular Medic ine [place] [facility] SUBJECTIVE Chief Complaint Patient presents with [...] trended upwards is a since seen in [place] [facility] 04/28/2023 and was diagnosed with vertigo [...] (paroxysmal atrial fi (more content not included)... [facility] Progress note 05-05-2023 Note Date & Type Note Facility 05-05-2023 Note [place] Cardiology Consul t Note Reason for visit: [...] trended upwards is a since seen in [place] [facility] 04/28/2023 and was diagnosed with vertigo [...] Take 1 table (more content not included)... [facility] Progress note 05-05-2023 Note Date & [...] All other systems reviewed and are negative. [facility] Clinical Note 11-17-2022 Note Date & [...] by: AUDREY BO Date: 2022-11-17 12:14 [facility] Discharge summary note 04-12-2021 Note Date & Type Note Facility 04-12-2021 Note MR#: [id number] I [facility] Pt. Name: Diana Alvarez Admitted: 04/10/2021 Discharged: 04/11/2021 Date of : 1970 Physician: Albert Wick MD DISCHARGE SUMMARY PRIMARY DIAGNOSIS: New-onset atrial flutter with RVR. SECONDARY DIAGNOSES: 1. Pulmonary hypertension. 2. COPD. 3. Diabetes. HISTORY OF PRESENT ILLNESS: This patient is a 50-year-old female with past medical history of COPD, hypertension, and diabetes, who was sent from [facility] due to atrial flutter with RVR due to COPD exacerbation. The patient was initially treated with IV Cardizem, however, it was changed to p.o. prior to transfer. The patient was also given loading dose digoxin. The patient was transferred to [facility] for cardioversion. HOSPITAL COURSE: 1. [...] Wick MD Date Trans: 04/12/2021 03:25 P/marixa [id number] cc: Phillip Ann M.D. [address] [place] [address] [facility] Evaluation + Plan note Note Date & Type Note Facility Evaluation + Plan note No data available for this section [facility] [place] [facility] Discharge instructions Note Date & Type Note Facility Hospital Discharge instructions No data available for this section [facility] [place] Progress note Note Date & Type Note Facility Progress note No data available for this section [facility] [place] Summary Purpose Family History No Family History Records FoundNo Family History Records FoundNo Family History Records FoundNo Family History Records FoundNo Family History Records Found Advance Directives No Advanced Directives Records FoundNo Advanced Directives Records FoundNo Advanced Directives Records FoundNo Advanced Directives Records FoundNo Advanced Directives Records Found Additional Source Comments INFORMATION SOURCE (unrecogn ized section and content) DATE CREATED AUTHOR 09/10/2021 [facility] DATE CREATED AUTHOR AUTHOR'S ORGANIZ ATION 12/24/2021 [facility] DATE CREATED AUTHOR AUTHOR'S ORGANIZ ATION 11/20/2022 [facility] DATE CREATED AUTHOR AUTHOR'S ORGANIZ ATION 02/02/2024 [facility] DATE CREATED AUTHOR AUTHOR'S ORGANIZ ATION 03/30/2024 [facility] Patient Care team informatio n (unrecognized section and content) Personnel Name: Phillip Ann MD Address: Address: [address] [place] [address] FOR RECORDS PERTAINING TO PATIENTS WHO ARE [...] BE BASED ON THE PRIMARY CLINICAL RECORDS. [facility] [employer] [facility]. provides no warranty or guarantee of the accuracy or completeness of information in this document.
[2024-04-05 21:21] VITALS: BP 127/74; PULSE 73; TEMP 36.8; O2SAT 96; BMI 31.1
--- NOTE | 2024-04-05 21:38 | ED.GENADUL1 ---
HPI HPI - General Adult General Chief complaint: Headache Stated complaint: HEADACHE Time Seen by Provider: 04/05/24 21:34 Source: patient Mode of arrival: walk-in Limitations: no limitations History of Present Illness HPI narrative: This 53-year-old female with a history of diabetes and hypertension presents for evaluation of a headache, chills, nausea vomiting and diarrhea. She was recently exposed to COVID-19. She has been vaccinated. She also states she feels like she has rattling in her chest. She has not had any dizziness or syncope but feels weak and dehydrated. She states she had 5 or 6 episodes of vomiting today and an equal number of episodes of diarrhea which is just loose runny stool. She has lower abdominal pain and cramping. She denies any chest pain or shortness of breath. She quit smoking 8 years ago. Related Data Home Medications ?Medication ?Instructions ?Recorded ?Confirmed albuterol sulfate 90 mcg/actuation 2 puff inhalation Q4H PRN wheezing 04/18/23 10/14/23 aerosol inhaler (Ventolin HFA) apixaban 5 mg tablet (Eliquis) 5 mg PO BID 04/18/23 04/05/24 diltiazem HCl 240 mg 240 mg PO Q24H 04/18/23 04/05/24 capsule,extended release 24 hr ezetimibe 10 mg tablet 10 mg PO DAILY 04/18/23 04/05/24 ferrous sulfate 325 mg (65 mg 325 mg PO BID 04/18/23 04/05/24 iron) tablet furosemide 40 mg tablet 40 mg PO DAILY 04/18/23 04/05/24 isosorbide mononitrate 30 mg 30 mg PO DAILY 04/18/23 04/05/24 tablet,extended release 24 hr metformin 500 mg tablet 500 mg PO DAILY 04/18/23 04/05/24 pantoprazole 40 mg tablet,delayed 40 mg PO DAILY 04/18/23 04/05/24 release potassium chloride 20 mEq 20 meq PO BID 04/18/23 04/05/24 tablet,extended release rosuvastatin 5 mg tablet 5 mg PO DAILY 04/18/23 04/05/24 metoprolol succinate 25 mg 50 mg PO DAILY 04/28/23 04/05/24 tablet,extended release 24 hr cholecalciferol (vitamin D3) 50 50 mcg PO DAILY 11/18/23 04/05/24 mcg (2,000 unit) capsule semaglutide 0.25 mg or 0.5 mg (2 0.5 mg subcut QWEEK 11/18/23 04/05/24 mg/1.5 mL) subcutaneous pen injector (Ozempic) lisinopril 5 mg tablet 5 mg PO DAILY 01/28/24 04/05/24 allopurinol 100 mg tablet 100 mg PO DAILY 04/05/24 04/05/24 ropinirole 0.5 mg tablet 0.5 mg PO DAILY 04/05/24 04/05/24 Previous Rx's ?Medication ?Instructions ?Recorded acetaminophen 325 mg capsule 650 mg (2 x 325 mg) PO .q8 PRN 04/18/23 (Tylenol) pain #20 caps ondansetron 4 mg disintegrating 4 mg PO Q6H PRN nausea and 11/19/23 tablet vomiting #20 tabs hyoscyamine sulfate 0.125 mg 0.125 mg PO Q6H PRN abdominal pain 11/23/23 tablet (Levsin) #12 tabs Allergies Allergy/AdvReac Type Severity Reaction Status Date / Time morphine Allergy Intermediate Palpitation Verified 01/28/24 22:13 s Opioid HPI Opioid Management Most Recent Opioid Data: Last Pain Scale 4 11/19/23 00:34 Review of Systems ROS Status of ROS 10 or more systems reviewed and unremarkable except as noted in history and below [facility] Social History Smoking status: Former smoker Exam Narrative Exam Narrative: Vital signs and Nursing Notes reviewed: Patient is afebrile with a normal pulse, normal blood pressure, she is not hypoxic with pulse ox of 96% on room air General: Awake, alert, oriented, no acute distress, lying comfortably on the stretcher, no respiratory distress, no active vomiting HEENT: Normocephalic atraumatic, vision is grossly intact Neck: Supple, no meningeal signs, no anterior or posterior cervical lymphadenopathy Chest: Lungs are clear to auscultation with good air entry, there is no wheezing rhonchi or rales appreciated no accessory muscle use, patient is speaking in complete sentences-no chest wall tenderness to palpation CVS: Regular rate and rhythm S1-S2, no murmurs rubs or gallops, pulses are brisk and equal bilaterally ABD: Soft, nondistended, nontender, no rebound guarding or rigidity, bowel sounds are mildly hyperactive Extremities: Moving all extremities, no lower extremity tenderness or swelling noted, negative Homans' sign, pulses are brisk and equal bilaterally Skin: Normal in appearance without rash,pallor, petechiae or purpura Neuro: No focal deficits Constitutional Vital Signs, click to edit/add: Last Vital Signs Temp 98.3 F 04/05/24 21:21 Pulse 73 04/05/24 21:21 Resp 18 04/05/24 21:21 BP 127/74 04/05/24 21:21 Pulse Ox 96 04/05/24 21:21 O2 Del Method Room Air 04/05/24 21:21 Course Vital Signs Vital signs: Vital Signs Temperature 98.3 F 04/05/24 21:21 Pulse Rate 73 04/05/24 21:21 Respiratory Rate 18 04/05/24 21:21 Blood Pressure 127/74 04/05/24 21:21 Pulse Oximetry 96 04/05/24 21:21 Oxygen Delivery Method Room Air 04/05/24 21:21 Temperature 98.3 F 04/05/24 21:21 Pulse Rate 73 04/05/24 21:21 Respiratory Rate 18 04/05/24 21:21 Blood Pressure 127/74 04/05/24 21:21 Pulse Oximetry 96 04/05/24 21:21 Oxygen Delivery Method Room Air 04/05/24 21:21 Medical Decision Making MDM Narrative Medical decision making narrative: This 53-year-old female presents for evaluation of a headache, chest congestion and nausea vomiting diarrhea. She was recently exposed to COVID-19. She has been vaccinated. In emergency department her vital signs were stable. Her physical exam was benign. She has no nuchal rigidity or photophobia. An IV was placed and she was medicated with IV fluids, Toradol and Zofran. She had relief of her nausea but still had a headache and was remedicated with a dose of [place]. Routine labs are reviewed. Her COVID-19 test is negative. She has a normal white count and hemoglobin. Electrolytes are normal. She does have a mild bump in her creatinine at 1.12 but has normal liver function test. X-ray of the chest was reviewed by radiology and is negative for acute findings. On reevaluation she is eating crackers and chewing on ice chips and hemodynamically stable for discharge. She will be discharged home with prescription for Zofran and Bentyl. Medical Records Medical records narrative: The [address] [address] XRay Report Signed Patient: LEIGHANN TALAMANTES MR#: [id number] : 1970 Acct:[id number] Age/Sex: 53 / F ADM Date: 04/05/24 Loc: ER Attending Dr: Ordering Physician: Merle Nielson Date of Service: 04/05/24 Procedure(s): XR chest 1V Accession Number(s): [id number] cc: Xavi Ann M.D.; Merle Marker~ The [address] [address] Patient Name: LEIHGANN TALAMANTES MRN: [id number] date: 1970 Sex: F Assigned Patient Location: ED.MAIN Current Patient Location: ER Accession/Order Number: [id number] Exam Date: 04/05/2024 22:17 Report Date: 04/05/2024 23:22 At the request of: MERLE MARKER Procedure: XR chest 1V EXAMINATION:XR chest 1V INDICATION:covid with chest congestion COMPARISON:11/17/2022 TECHNIQUE:A single frontal view of the chest is submitted. FINDINGS: The cardiomediastinal silhouette is not enlarged. The pulmonary vascularity is within normal limits. No acute airspace disease is present in the lungs. A loop recorder projects over the left perihilar chest. There is no costophrenic angle blunting. XR/XR chest 1V IMPRESSION: No acute cardiopulmonary process in the chest. Electronically authenticated by: YOON SHAIKH Date: 04/05/2024 23:22 Lab Data Labs: Lab Results 04/05/24 04/05/24 04/05/24 Range/Units 22:01 22:02 23:00 WBC 10.8 (4.0-11.0) 10^3/uL RBC 4.18 L (4.20-5.40) 10^6/uL Hgb 12.8 (12.0-16.0) g/dL Hct 39.5 (36.0-48.0) % MCV 94.5 (81.0-99.0) fL MCH 30.6 (26.7-34.0) pg MCHC 32.4 (29.9-35.2) g/dL RDW 14.0 (11.0-15.0) % Plt Count 329 (150-450) 10^3/uL MPV 10.4 (9.5-13.5) fL Neut % (Auto) 60.5 (43.0-75.0) % Lymph % (Auto) 31.8 (20.5-60.0) % [place] % (Auto) 6.3 (1.7-12.0) % Eos % (Auto) 0.6 L (0.9-7.0) % Baso % (Auto) 0.2 (0.2-2.0) % Neut # (Auto) 6.5 (1.4-6.5) 10^3/uL Lymph # (Auto) 3.4 (1.2-3.8) 10^3/uL [place] # (Auto) 0.7 (0.3-0.8) 10^3/uL Eos # (Auto) 0.1 (0.0-0.7) 10^3/uL Baso # (Auto) 0.0 (0.0-0.1) 10^3/uL Abs Immat Gran (auto) 0.06 H (0.00-0.03) 10^3/uL Imm/Tot Granulo (auto) 0.6 H (0.0-0.5) % Sodium 139 (136-145) mmol/L Potassium 3.4 L (3.5-5.1) mmol/L Chloride 103 (98-107) mmol/L Carbon Dioxide 27.5 (21.0-32.0) mmol/L Anion Gap 11.9 BUN 28.0 H (7.0-18.0) mg/dL Creatinine 1.12 H (0.55-1.02) mg/dL Est GFR ( Amer) >60 (>=60) Est GFR (Non-Af Amer) 51 L (>=60) BUN/Creatinine Ratio 25.0 Glucose 105 (74-106) mg/dL Lactate 1.9 (0.4-2.0) mmol/L Calcium 8.2 L (8.5-10.1) mg/dL Total Bilirubin 1.1 H (0.2-1.0) mg/dL AST 14 L (15-37) U/L ALT 16 (14-59) U/L Alkaline Phosphatase 88 (46-116) U/L Total Protein 6.5 (6.4-8.2) g/dL Albumin 3.0 L (3.4-5.0) g/dL Globulin 3.5 g/dL Albumin/Globulin Ratio 0.9 SARS-CoV-2 Ag (CV2AG) Negative (NEGATIVE) Discharge Plan Discharge Chief Complaint: Headache Clinical Impression: Acute viral syndrome, Close exposure to COVID-19 virus Patient Disposition: Home, Self-Care Time of Disposition Decision: 00:10 Condition: Good Prescriptions / Home Meds: No Action albuterol sulfate [Ventolin HFA] 90 mcg/actuation HFA aerosol inhaler 2 puff INHALATION Q4H PRN (Reason: wheezing) Eliquis 5 mg tablet 5 mg PO BID diltiazem HCl 240 mg capsule,extended release 24hr 240 mg PO Q24H ezetimibe 10 mg tablet 10 mg PO DAILY ferrous sulfate 325 mg (65 mg iron) tablet 325 mg PO BID furosemide 40 mg tablet 40 mg PO DAILY isosorbide mononitrate 30 mg tablet extended release 24 hr 30 mg PO DAILY metformin 500 mg tablet 500 mg PO DAILY pantoprazole 40 mg tablet,delayed release (DR/EC) 40 mg PO DAILY potassium chloride 20 mEq tablet extended release 20 meq PO BID rosuvastatin 5 mg tablet 5 mg PO DAILY acetaminophen [Tylenol] 325 mg capsule 650 mg PO .q8 PRN (Reason: pain) Qty: 20 0RF metoprolol succinate 25 mg tablet extended release 24 hr 50 mg PO DAILY lisinopril 5 mg tablet 5 mg PO DAILY Ozempic 0.25 mg or 0.5 mg(2 mg/1.5 mL) pen injector 0.5 mg subcut QWEEK Rx Instructions: Fridays cholecalciferol (vitamin D3) 50 mcg (2,000 unit) capsule 50 mcg PO DAILY ondansetron 4 mg tablet,disintegrating 4 mg PO Q6H PRN (Reason: nausea and vomiting) Qty: 20 0RF hyoscyamine sulfate [Levsin] 0.125 mg tablet 0.125 mg PO Q6H PRN (Reason: abdominal pain) Qty: 12 0RF ropinirole 0.5 mg tablet 0.5 mg PO DAILY allopurinol 100 mg tablet 100 mg PO DAILY Print Language: Khmer Instructions: Viral Syndrome (ED) Referrals: Xavi Ann MD [Primary Care Provider] - 1 week
--- NOTE | 2024-04-05 21:55 | XR_ITS ---
The [address] [address] Patient Name: LEIGHANN TALAMANTES MRN: [id number] date: 1970 Sex: F Assigned Patient Location: ED.MAIN Current Patient Location: ER Accession/Order Number: [id number] Exam Date: 04/05/2024 22:17 Report Date: 04/05/2024 23:22 At the request of: VICENTE MARKER Procedure: XR chest 1V EXAMINATION:XR chest 1V INDICATION:covid with chest congestion COMPARISON:11/17/2022 TECHNIQUE:A single frontal view of the chest is submitted. FINDINGS: The cardiomediastinal silhouette is not enlarged. The pulmonary vascularity is within normal limits. No acute airspace disease is present in the lungs. A loop recorder projects over the left perihilar chest. There is no costophrenic angle blunting. XR/XR chest 1V IMPRESSION: No acute cardiopulmonary process in the chest. Electronically authenticated by: YOON SHAIKH Date: 04/05/2024 23:22
[2024-04-05] MEDS: 0.9 % SODIUM CHLORIDE 1,000 ML 1000 ML IV (22:08)
[2024-04-05] MEDS: KETOROLAC TROMETHAMINE 30 MG/ML VIAL 15 MG IVP (22:09)
[2024-04-05] MEDS: ONDANSETRON PF 4 MG/2 ML VIAL IV (22:09)
[2024-04-05 22:25] LABS: Basophils Percent Auto 0.2 % (0.2-2.0); Eosinophils Absolute Auto 0.1 10^3/uL (0.0-0.7); Eosinophils Percent Auto 0.6 % (0.9-7.0); Hematocrit 39.5 % (36.0-48.0); Hemoglobin 12.8 g/dL (12.0-16.0); Immature Granulocytes Abs Auto 0.06 10^3/uL (0.00-0.03); Immature Granulocytes Pct Auto 0.6 % (0.0-0.5); Lymphocytes Absolute Auto 3.4 10^3/uL (1.2-3.8); Lymphocytes Percent Auto 31.8 % (20.5-60.0); Mean Corpuscular HGB Conc 32.4 g/dL (29.9-35.2); Mean Corpuscular Hemoglobin 30.6 pg (26.7-34.0); Mean Corpuscular Volume 94.5 fL (81.0-99.0); Mean Platelet Volume 10.4 fL (9.5-13.5); Monocytes Absolute Auto 0.7 10^3/uL (0.3-0.8); Monocytes Percent Auto 6.3 % (1.7-12.0); Neutrophils Absolute Auto 6.5 10^3/uL (1.4-6.5); Neutrophils Percent Auto 60.5 % (43.0-75.0); Platelet Count 329 10^3/uL (150-450); Red Blood Count 4.18 10^6/uL (4.20-5.40); White Blood Count 10.8 10^3/uL (4.0-11.0)
[2024-04-05 22:40] LABS: Lactate/Lactic Acid 1.9 mmol/L (0.4-2.0)
[2024-04-05 22:48] LABS: Internal Control Within Normal Limits; SARS-CoV-2 Ag NEGATIVE (NEGATIVE)
[2024-04-05 23:18] LABS: Alanine Aminotransferase 16 U/L (14-59); Albumin Globulin Ratio 0.9; Alkaline Phosphatase 88 U/L (46-116); Anion Gap 11.9; Aspartate Amino Transferase 14 U/L (15-37); Bilirubin Total 1.1 mg/dL (0.2-1.0); Calcium 8.2 mg/dL (8.5-10.1); Carbon Dioxide 27.5 mmol/L (21.0-32.0); Chloride 103 mmol/L (98-107); Estimated GFR (African America >60 (>=60); Estimated GFR (Non-African Ame 51 (>=60); Globulin 3.5 g/dL; Glucose 105 mg/dL (74-106); Potassium 3.4 mmol/L (3.5-5.1); Sodium 139 mmol/L (136-145); Total Protein 6.5 g/dL (6.4-8.2)
[2024-04-06] MEDS: HYDROCODONE/ACET 5-325 MG TABLET 1 TAB PO (00:16)
[2024-04-06 00:17] VITALS: BP 116/63; PULSE 76; O2SAT 97
== END 2024-04-06 00:20 | disposition home or self-care (01) ==
PROVIDERS: Emergency Provider Emergency Medicine; PCP Family Medicine
DX: B34.9 Viral infection, unspecified (principal); Z20.822 Contact with and (suspected) exposure to COVID-19; Z87.891 Personal history of nicotine dependence; E11.9 Type 2 diabetes mellitus without complications; I10 Essential (primary) hypertension; Z79.84 Long term (current) use of oral hypoglycemic drugs
CPT/HCPCS: 36415; 71045; 80053; 83605; 85025; 87811; 96361; 96374; 96375; 99285; J1885; J2405

== ENCOUNTER 2024-04-13 08:45 | Outpatient (OUT) | payer OTHER, SELFPAY ==
--- OUTSIDE RECORDS SUMMARY | 2024-04-13 09:12 | XMS_ITS | CCD ---
Author Organization [facility] Care Team Providers Care Pulmonologist Intensivist Name Role Phone ADAM BEARAB A Admitting Unavailable CASSY BEAR Attending Unavailable PHILLIP ANN Referring Unavailable PHILLIP ANN Primary Care Unavailable PHILLIP ANN Referring Unavailable XIAO TORRES Surgeon Unavailable ORLIN HUI Attending Unavailable CALLI PAIGE Admitting Unavailable MA Procedure Practitioner Unavailab PHILLIP Muñoz Primary Care Unavailable MA Procedure Practitioner Unavailab Dunia Light Surgeon Unavailsindhu e Phillip Ann Primary Care Physician [phone] [address] ., DR FISHER Primary Care Unavailable [...] NILL ., DR PATRICK Admitting Unavailable DIAB .FABRICIO Attending Unavailable HOY ., DR FISHER Primary [...] Morphine; Translations: [MORPHINE] Drug Allergy 9 [facility] Repository (1 source) 90474,00; Translations: [50627,00] Propensity to adverse reactions (disorder) 0 [facility] (1 source) Morphine; Translations: [morphine] Drug Allergy Feeling nervous (finding), Tachycardia (finding) General Surgery Neda (1 source) dulaglutide; Translations: [DULAGLUTIDE] Drug Allergy [facility] Repository (1 source) No Known Medication Allergies; Translations: [No Known Medication Allergies] Propensity to adverse reactions (disorder) [facility] Repository Medications Current Medications Medication Drug Class(es) Dates Sig (Normalized) Sig (Original) [id number] 200 actuat albuterol 0.09 mg/actuat metered dose [...] disease (1 source) Atherosclerotic heart disease of koi coronary artery without angina pectoris; Translations: [ASHD [place] CA W/O ANGINA PECTORIS] Onset: 08-11-2022 Chronic [...] Onset: 09-13-2022 Chronic Other aftercare (1 source) 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) use of anticoagulants; Translations: [INDUSTRIAL SAFETY AND HEALTH TECHNICIAN CURRNT USE ANTICOAGULANTS] Onset: 11-19-2022 Episodic Other aftercare (1 source) Other 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 manager (current) drug therapy; Translations: [OTH INDUSTRIAL SAFETY AND HEALTH TECHNICIAN CURRENT DRUG THERAPY] Onset: 11-19-2022 Episodic Other aftercare (1 source) [facility] (current) use of oral hypoglycemic drugs; Translations: [INDUSTRIAL SAFETY AND HEALTH TECHNICIAN USE ORAL HYPOGLYCEMIC DX] Onset: 11-19-2022 Episodic [...] Test Name Value Interpretation Reference Range Facility Ambulatory Visit Summaryon 0 04-04-2024 Ambulatory Visit Summary Ambulatory Visit Summary DIANA ALVAREZ :1970 Visit Date:04/04/2024 Ambulatory Visit Instructions Your Care Team Attending Physician - BRAD DIAZ, Juan Miguel Ortiz Primary Care Physician - Phillip Ann MD This Is Your Medications List Contact prescribing physician if questions or concerns Misc Prescription (lancets, glucometer, alcohol swabs, testing strips, insulin pen needles) albuterol (Pro-Air HFA CFC free 90 mcg/inh MDI) albuterol (albuterol 0.083% Inh Valeria 3 mL) allopurinol (allopurinol 100 mg Tab) apixaban (Eliquis 5 mg oral tablet) cholecalciferol (Vitamin D3 2000 intl units oral Tab) colchicine (colchicine 0.6 mg Tab) diltiazem (DilTIAZem (Eqv-Cardizem CD) 240 mg/24 hours oral capsule, extended release) ezetimibe (Zetia 10 mg Tab) ferrous sulfate (ferrous sulfate 325 mg Tab) hyoscyamine (Levsin 0.125 mg SL Tab) isosorbide mononitrate (isosorbide mononitrate 30 mg ER Tab) lisinopril (lisinopril 5 mg Tab) metformin (metformin 500 mg Tab) metoprolol (Metoprolol succinate 50 mg ER Tablet) ondansetron (ondansetron 4 mg Dis Tab) pantoprazole (Pantoprazole [address] Tab) potassium chloride (potassium chloride 20 mEq ER Tab) ropinirole (ropinirole 0.5 mg Tab) semaglutide (Ozempic 8 mg/3 mL (2 mg dose) subcutaneous solution) tizanidine (tiZANidine 4 mg Tab) Procedures Performed section, section, Excision of cyst of breast, History of cardiac radiofrequency ablation, Implantation of insertable loop recorder, Nasal endoscopy, Tubal ligation. Discharge Vitals Heart Rate (Peripheral) 72 Respiratory Rate 16 Blood Pressure 122/76 Height 157 cm Height 62 in Weight 77.8 kg Weight 171.16 lb BMI 31.56 Medications What How Much When Instructions Unchanged albuterol (albuterol 0.083% Inh Valeria 3 mL) 3 Milliliter Nebulized inhalation (aerosol) Every day Contact prescribing physician if questions or concerns Unchanged albuterol (Pro-Air HFA CFC free 90 mcg/ inh MDI) 2 Puffs Inhalation Once as needed for for wheezing Contact prescribing physician if questions or concerns Unchanged allopurinol (allopurinol 100 mg Tab) 1 Tablets By Mouth Every day Contact prescribing physician if questions or concerns Unchanged apixaban (Eliquis 5 mg oral tablet) 1 Tablets By Mouth 2 times a day Contact prescribing physician if questions or concerns Unchanged cholecalciferol (Vitamin D3 2000 intl units oral Tab) 50 Microgram By Mouth Every day Contact prescribing physician if questions or concerns Unchanged colchicine (colchicine 0.6 mg Tab) as directed Contact prescribing physician if questions or concerns Unchanged diltiazem (DilTIAZem (Eqv-Cardizem CD) 240 mg/ 24 hours oral capsule, extended release) 1 Capsules By Mouth Every day Contact prescribing physician if questions or concerns Unchanged ezetimibe (Zetia 10 mg Tab) 1 Tablets By Mouth Every day [...] prescribing physician if questions or concerns Unchanged lisinopril (lisinopril 5 mg Tab) 1 Tablets By Mouth Every day [...] prescribing physician if questions or concerns Unchanged ondansetron (ondansetron 4 mg Dis Tab) 1 Tablets By Mouth 3 times a day as needed for Nausea/Vomiting Contact prescribing physician if questions or concerns Unchanged pantoprazole (Pantoprazole [address] Tab) 1 Tablets By Mouth Every day Contact prescribing physician if questions or concerns Unchanged potassium chloride (potassium chloride 20 mEq ER Tab) 1 Tablets By Mouth 2 times a day Contact prescribing physician if questions or concerns Unchanged ropinirole (ropinirole 0.5 mg Tab) 1 Tablets By Mouth Every day Contact prescribing physician if questions or concerns Unchanged semaglutide (Ozempic 8 mg/ 3 mL (2 mg dose) subcutaneous solution) 2 Milligram Subcutaneous Every week Contact prescribing physician if questions or concerns Unchanged tizanidine (tiZANidine 4 mg Tab) 2 Tablets By Mouth At bedtime Contact prescribing physician if questions or concerns Allergies morphine (Nervousness, Tachycardia) Problems (more content not included)... Normal [facility] 01-12-2024 36 BP is elevated. I encourage diet and routine exercise which can help her BP. In the mean time, would like to start her on lisinopril 5mg daily with follow-up BMP in 2 weeks. Thanks! Normal [facility] 01-11-2024 36 Pt calling with bp's 156/83 133/78 147/80 146/78 157/72 148/80 120/80 Normal [facility] 36on 12-23-2023 36 Regarding echo performed on 12/20/2023: [...] weeks with readings. She verbalized understanding. Normal [facility] Telephoneon 12-23-2023 Telephone [id number] Diana Alvarez 1970 Date Provider Department Center 12/23/2023 Nayana-MIGUEL FERMIN TISH Booth Family History Problem Relation Age of Onset Breast cancer Mother Aneurysm Mother Stroke Mother Heart attack Father Coronary artery disease Father Family Status - Relation Status Age at Mother Father [facility] 36on 11-10-2023 36 Call reference # [id number]. - Approval # [id number] approved from 11/05/23 - 01/04/24. Normal [facility] Office Visiton 10-26-2023 Follow-up visit [id number] Diana Alvarez 1970 Provider Department Center 10/26/2023 JENNA ABREU Family History Problem Relation Age of Onset Breast cancer Mother Aneurysm Mother Stroke Mother Heart attack Father Coronary artery disease Father Family Status - Relation Status Age at Mother Father Level of Service:40485 MA OFFICE/OUTPATIENT ESTABLISHED MOD MDM 30 MIN Reason for Visit and Comments: Atrial Flutter [101] Congestive Heart Failure [127] Normal [facility] Office Visiton 05-05-2023 Follow-up visit [id number] Diana Alvarez 1970 Date Provider Department Center 05/05/2023 Laxmi-STACY VILLALTA Family History Problem Relation Age of Onset Breast cancer Mother Aneurysm Mother Stroke Mother Heart attack Father Coronary artery disease Father Family Status - Relation Status Age at Mother Father Level of Service:76480 MA OFFICE/OUTPATIENT ESTABLISHED MOD MDM 30-39 MIN Normal [facility] CBC AUTO DIFFon 10-28-2022 BASO # 0.0 103/ul Normal 0.0-0.1 [facility] Comment on above: Performed By: #### L IPID, CMP, T4, TSH, FT3 #### [facility] [address] [place] [address] Dr. Mendel Herron Basophils/100 WBC (Bld) 0.2 % Normal 0.2-2.0 [facility] Comment on above: Performed By: #### L IPID, CMP, T4, TSH, FT3 #### [facility] [address] [place] [address] Dr. Mendel Herron EO # 0.0 103/ul Normal 0.0-0.7 [facility] Comment on above: Performed By: #### L IPID, CMP, T4, TSH, FT3 #### [facility] [address] [place] [address] Dr. Mendel Herron Eosinophils/100 WBC (Bld) 0.3 % Critically low 0.9-7.0 [facility] Comment on above: Performed By: #### L IPID, CMP, T4, TSH, FT3 #### [facility] [address] [place] [address] Dr. Mendel Herron Erythrocyte distribution width (RBC) [Ratio] 13.6 % Normal 11.0-15.0 [facility] Comment on above: Performed By: #### L IPID, CMP, T4, TSH, FT3 #### [facility] [address] [place] [address] Dr. Mendel Herron Hematocrit (Bld) [Volume fraction] 40.1 % Normal 36.0-48.0 [facility] Comment on above: Performed By: #### L IPID, CMP, T4, TSH, FT3 #### [facility] [address] [place] [address] Dr. Mendel Herron Hemoglobin (Bld) [Mass/Vol] 13.0 g/dL Normal 12.0-16.0 [facility] Comment on above: Performed By: #### L IPID, CMP, T4, TSH, FT3 #### [facility] [address] [place] [address] Dr. Mendel Herron IG # 0.06 10e3/ul Critically high 0.00-0.03 [facility] Comment on above: Performed By: #### L IPID, CMP, T4, TSH, FT3 #### [facility] [address] [place] [address] Dr. Mendel Herron IG % 0.5 % Normal 0.0-0.5 [facility] Comment on above: Performed By: #### L IPID, CMP, T4, TSH, FT3 #### [facility] [address] [place] [address] Dr. Mendel Herron LYMPH # 2.8 103/ul Normal 1.2-3.8 [facility] Comment on above: Performed By: #### L IPID, CMP, T4, TSH, FT3 #### [facility] [address] [place] [address] Dr. Mendel Herron Lymphocytes/100 WBC (Bld) 22.4 % Normal 20.5-60.0 [facility] Comment on above: Performed By: #### L IPID, CMP, T4, TSH, FT3 #### [facility] [address] [place] [address] Dr. Mendel Herron MANUAL DIFF REQ NO Normal [facility] Comment on above: Performed By: #### L IPID, CMP, T4, TSH, FT3 #### [facility] [address] [place] [address] Dr. Mendel Herron MCH (RBC) [Entitic mass] 30.8 pg Normal 26.7-34.0 [facility] Comment on above: Performed By: #### L IPID, CMP, T4, TSH, FT3 #### [facility] [address] [place] [address] Dr. Mendel Herron MCHC (RBC) [Mass/Vol] 32.4 g/dL Normal 29.9-35.2 [facility] Comment on above: Performed By: #### L IPID, CMP, T4, TSH, FT3 #### [facility] [address] [place] [address] Dr. Mendel Herron MCV (RBC) [Entitic vol] 95.0 fL Normal 81.0-99.0 [facility] Comment on above: Performed By: #### L IPID, CMP, T4, TSH, FT3 #### [facility] [address] [place] [address] Dr. Mendel Herron MONO # 0.9 103/ul Critically high 0.3-0.8 [facility] Comment on above: Performed By: #### L IPID, CMP, T4, TSH, FT3 #### [facility] [address] [place] [address] Dr. Mendel Herron Monocytes/100 WBC (Bld) 7.2 % Normal 1.7-12.0 [facility] Comment on above: Performed By: #### L IPID, CMP, T4, TSH, FT3 #### [facility] [address] [place] [address] Dr. Mendel Herron NEUT # 8.6 103/ul Critically high 1.4-6.5 [facility] Comment on above: Performed By: #### L IPID, CMP, T4, TSH, FT3 #### [facility] [address] [place] [address] Dr. Mendel Herron Neutrophils/100 WBC (Bld) 69.4 % Normal 43.0-75.0 [facility] Comment on above: Performed By: #### L IPID, CMP, T4, TSH, FT3 #### [facility] [address] [place] [address] Dr. Mendel Herron Platelet mean volume (Bld) [Entitic vol] 9.9 fL Normal 9.5-13.5 [facility] Comment on above: Performed By: #### L IPID, CMP, T4, TSH, FT3 #### [facility] [address] [place] [address] Dr. Mendel Herron PLT 297 103/ul Normal 150-450 [facility] Comment on above: Performed By: #### L IPID, CMP, T4, TSH, FT3 #### [facility] [address] [place] [address] Dr. Mendel Herron RBC 4.22 106/ul Normal 4.20-5.40 [facility] Comment on above: Performed By: #### L IPID, CMP, T4, TSH, FT3 #### [facility] [address] [place] [address] Dr. Mendel Herron WBC 12.4 103/ul Critically high 4.0-11.0 [facility] Comment on above: Performed By: #### L IPID, CMP, T4, TSH, FT3 #### [facility] [address] [place] [address] Dr. Mendel Herorn CRPon 10-28-2022 CRP 1.3 mg/dL Critically high <=1.0 [facility] [place] Comment on above: Performed By: #### L IPID, CMP, T4, TSH, FT3 #### [facility] [address] [place] [address] Dr. Mendel Herron PROF CHEM 8 (BAS METB)on Anion gap [Moles/Vol] 13.6 mmol/L Normal [facility] Comment on above: Performed By: #### L IPID, CMP, T4, TSH, FT3 #### [facility] [address] [place] [address] Dr. Menedl Herron Calcium [Mass/Vol] 9.3 mg/dL Normal 8.5-10.1 [facility] Comment on above: Performed By: #### L IPID, CMP, T4, TSH, FT3 #### [facility] [address] [place] [address] Dr. Mendel Herron Chloride [Moles/Vol] 102 mmol/L Normal 98-107 [facility] Comment on above: Performed By: #### L IPID, CMP, T4, TSH, FT3 #### [facility] [address] [place] [address] Dr. Mendel Herron CO2 [Moles/Vol] 30.7 mmol/L Normal 21.0-32.0 [facility] Comment on above: Performed By: #### L IPID, CMP, T4, TSH, FT3 #### [facility] [address] [address] [address] Mendel Herron Creatinine [Mass/Vol] 0.85 mg/dL Normal 0.55-1.02 [facility] Comment on above: Performed By: #### L IPID, CMP, T4, TSH, FT3 #### [facility] [address] [address] [address] Mendel Herron EGFR-AF TRINIDADIAN >60 Normal >=60 [facility] Comment on above: Performed By: #### L IPID, CMP, T4, TSH, FT3 #### [facility] [address] [address] [address] Mendel Herron EGFR-NON AF TRINIDADIAN >60 Normal >=60 [facility] Comment on above: Performed By: #### L IPID, CMP, T4, TSH, FT3 #### [facility] [address] [address] [address] Mendel Herron Glucose [Mass/Vol] 101 mg/dL Normal 74-106 [facility] Comment on above: Performed By: #### L IPID, CMP, T4, TSH, FT3 #### [facility] [address] [address] [address] Mendel Herron Potassium [Moles/Vol] 3.3 mmol/L Critically low 3.5-5.1 [facility] Comment on above: Performed By: #### L IPID, CMP, T4, TSH, FT3 #### [facility] [address] [address] [address] Mendel Herron Sodium [Moles/Vol] 143 mmol/L Normal 136-145 [facility] Comment on above: Performed By: #### L IPID, CMP, T4, TSH, FT3 #### [facility] [address] [address] [address] Mendel Herron Urea nitrogen [Mass/Vol] 12.0 mg/dL Normal 7.0-18.0 [facility] Comment on above: Performed By: #### L IPID, CMP, T4, TSH, FT3 #### [facility] [address] [address] [address] Mendel Herron Urea nitrogen/Creatinine [Mass ratio] 14.1 mg/mg Normal [facility] Comment on above: Performed By: #### L IPID, CMP, T4, TSH, FT3 #### [facility] [address] [address] [address] Mendel Herron URIC ACID SERUMon 10-28-2022 Urate [Mass/Vol] 7.8 mg/dL Critically high 2.6-6.0 [facility] Comment on above: Performed By: #### L IPID, CMP, T4, TSH, FT3 #### [facility] [address] [place], [place] [address] Dr. Mendel Herron XR TOES RT MIN [...] GAIL PELLETIER Date: 2022-10-28 20:53 Normal [facility] SARS-CoV-2 (COVID-19) RNA DEIRDRE+probe Ql (Unsp spec) Not detected Normal NOT DETECTED [facility] Comment on above: Result Comment: [...] for this test is supported by the Greeter of Health and Human Service's declaration that [...] L IPID, CMP, T4, TSH, FT3 #### [facility] [address] [place] [address] Dr. Mendel Herron CBC AUTO DIFFon 09-09-2022 BASO # 0.1 103/ul Normal 0.0-0.1 [facility] Comment on above: Performed By: #### L IPID, CMP, T4, TSH, FT3 #### [facility] [address] [place] [address] Dr. Mendel Herron Basophils/100 WBC (Bld) 0.7 % Normal 0.2-2.0 [facility] Comment on above: Performed By: #### L IPID, CMP, T4, TSH, FT3 #### [facility] [address] [place] [address] Dr. Mendel Herron EO # 0.1 103/ul Normal 0.0-0.7 [facility] Comment on above: Performed By: #### L IPID, CMP, T4, TSH, FT3 #### [facility] [address] [place] [address] Dr. Mendel Herron Eosinophils/100 WBC (Bld) 0.7 % Critically low 0.9-7.0 [facility] Comment on above: Performed By: #### L IPID, CMP, T4, TSH, FT3 #### [facility] [address] [place] [address] Dr. Mendel Herron Erythrocyte distribution width (RBC) [Ratio] 13.1 % Normal 11.0-15.0 [facility] Comment on above: Performed By: #### L IPID, CMP, T4, TSH, FT3 #### [facility] [address] [place] [address] Dr. Mendel Herron Hematocrit (Bld) [Volume fraction] 43.7 % Normal 36.0-48.0 [facility] Comment on above: Performed By: #### L IPID, CMP, T4, TSH, FT3 #### [facility] [address] [place] [address] Dr. Mendel Herron Hemoglobin (Bld) [Mass/Vol] 14.4 g/dL Normal 12.0-16.0 [facility] Comment on above: Performed By: #### L IPID, CMP, T4, TSH, FT3 #### [facility] [address] [place] [address] Dr. Mendel Herron IG # 0.11 10e3/ul Critically high 0.00-0.03 [facility] Comment on above: Performed By: #### L IPID, CMP, T4, TSH, FT3 #### [facility] [address] [place] [address] Dr. Mendel Herron IG % 1.3 % Critically high 0.0-0.5 [facility] [place] Comment on above: Performed By: #### L IPID, CMP, T4, TSH, FT3 #### [facility] [address] [place] [address] Dr. Mendel Herron LYMPH # 2.4 103/ul Normal 1.2-3.8 [facility] Comment on above: Performed By: #### L IPID, CMP, T4, TSH, FT3 #### [facility] [address] [place] [address] Dr. Mendel Herron Lymphocytes/100 WBC (Bld) 27.9 % Normal 20.5-60.0 [facility] Comment on above: Performed By: #### L IPID, CMP, T4, TSH, FT3 #### [facility] [address] [place] [address] Dr. Mendel Herron MANUAL DIFF REQ NO Normal [facility] Comment on above: Performed By: #### L IPID, CMP, T4, TSH, FT3 #### [facility] [address] [place] [address] Dr. Mendel Herron MCH (RBC) [Entitic mass] 31.0 pg Normal 26.7-34.0 [facility] Comment on above: Performed By: #### L IPID, CMP, T4, TSH, FT3 #### [facility] [address] [place] [address] Dr. Mendel Herron MCHC (RBC) [Mass/Vol] 33.0 g/dL Normal 29.9-35.2 [facility] Comment on above: Performed By: #### L IPID, CMP, T4, TSH, FT3 #### [facility] [address] [place] [address] Dr. Mendel Herron MCV (RBC) [Entitic vol] 94.0 fL Normal 81.0-99.0 [facility] Comment on above: Performed By: #### L IPID, CMP, T4, TSH, FT3 #### [facility] [address] [place] [address] Dr. Mendel Herron MONO # 0.5 103/ul Normal 0.3-0.8 [facility] Comment on above: Performed By: #### L IPID, CMP, T4, TSH, FT3 #### [facility] [address] [place] [address] Dr. Mendel Herron Monocytes/100 WBC (Bld) 6.0 % Normal 1.7-12.0 [facility] Comment on above: Performed By: #### L IPID, CMP, T4, TSH, FT3 #### [facility] [address] [place] [address] Dr. Mendel Herron NEUT # 5.4 103/ul Normal 1.4-6.5 [facility] Comment on above: Performed By: #### L IPID, CMP, T4, TSH, FT3 #### [facility] [address] [place] [address] Dr. Mendel Herron Neutrophils/100 WBC (Bld) 63.4 % Normal 43.0-75.0 [facility] Comment on above: Performed By: #### L IPID, CMP, T4, TSH, FT3 #### [facility] [address] [place] [address] Dr. Mendel Herron Platelet mean volume (Bld) [Entitic vol] 9.8 fL Normal 9.5-13.5 [facility] Comment on above: Performed By: #### L IPID, CMP, T4, TSH, FT3 #### [facility] [address] [place] [address] Dr. Mendel Herron PLT 398 103/ul Normal 150-450 [facility] Comment on above: Performed By: #### L IPID, CMP, T4, TSH, FT3 #### [facility] [address] [place] [address] Dr. Mendel Herron RBC 4.65 106/ul Normal 4.20-5.40 [facility] Comment on above: Performed By: #### L IPID, CMP, T4, TSH, FT3 #### [facility] [address] [place] [address] Dr. Mendel Herron WBC 8.6 103/ul Normal 4.0-11.0 [facility] Comment on above: Performed By: #### L IPID, CMP, T4, TSH, FT3 #### [facility] [address] [place] [address] Dr. Mendel Herron FREE T3on 09-09-2022 FREE T3 2.59 pg/mlL Normal 2.18-3.98 [facility] Comment on above: Performed By: #### L IPID, CMP, T4, TSH, FT3 #### [facility] [address] [place] [address] Dr. Mendel Herron GLYCOHEMOGLOBIN A1Con 2022 ADA RECOMMENDATION SEE BELOW Normal [facility] Comment on above: Result Comment: ADA RECOMMENDED LIMIT 4.0 - 6.0 ADA THERAPEUTIC TARGET < 7.0 ACTION SUGGESTED > 7.0 Performed By: #### A 1C #### [facility] [address] [place] [address] Dr. Mendel Herron Glucose [Mass/Vol] 120 mg/dL Normal [facility] Comment on above: Performed By: #### A 1C #### [facility] [address] [id number] Dr. Mendel Herron HbA1c (Bld) [Mass fraction] 5.8 % Normal 4.5-6.2 [facility] Comment on above: Performed By: #### A 1C #### [facility] [address] [address] [address] Mendel Herron LIPID PROFILEon 09-09-2022 CHOL-HDL RATIO NORM SEE BELOW Normal [facility] Comment on above: Result Comment: 3.3 - 4.4 LOW RISK 4.4 - 7.1 AVERAGE RISK 7.1 - 11.0 MODERATE RISK >11.0 HIGH RISK Performed By: #### L IPID, CMP, T4, TSH, FT3 #### [facility] [address] [address] [address] Mendel Herron Cholesterol [Mass/Vol] 308 mg/dL Critically high <=200 [facility] Comment on above: Performed By: #### L IPID, CMP, T4, TSH, FT3 #### [facility] [address] [address] [address] Mendel Herron Cholesterol in HDL [Mass/Vol] 46 mg/dL Normal 40-60 [facility] Comment on above: Performed By: #### L IPID, CMP, T4, TSH, FT3 #### [facility] [address] [address] [address] Mendel Herron Cholesterol in LDL [Mass/Vol] 212.6 mg/dL Normal [facility] Comment on above: Performed By: #### L IPID, CMP, T4, TSH, FT3 #### [facility] [address] [address] [address] Mendel Herron Cholesterol.total/Ch olesterol in HDL [Mass ratio] 6.7 {ratio} Normal [facility] Comment on above: Performed By: #### L IPID, CMP, T4, TSH, FT3 #### [facility] [address] [address] [address] Mendel Herron HDL NORMAL > or = 60 mg/dl - LOW CARDIOVASCULAR RISK <40 mg/dl - HIGH CARDIOVASCULAR RISK Normal [facility] Comment on above: Performed By: #### L IPID, CMP, T4, TSH, FT3 #### [facility] [address] [address] [address] Mendel Herron LDL CALC NORMAL SEE BELOW Normal [facility] Comment on above: Result Comment: <100 mg/dl OPTIMAL 100 - 129 mg/dl NEAR OR ABOVE OPTIMAL 130 - 159 mg/dl BORDERLINE HIGH 160 - 189 mg/dl HIGH >190 mg/dl VERY HIGH Performed By: #### L IPID, CMP, T4, TSH, FT3 #### [facility] [address] [address] [address] Mendel Herron Triglyceride [Mass/Vol] 247 mg/dL Critically high <=150 [facility] Comment on above: Performed By: #### L IPID, CMP, T4, TSH, FT3 #### [facility] [address] [address] [address] Mendel Herron VLDL CALC 49.4 mg/dL Normal [facility] Comment on above: Performed By: #### L IPID, CMP, T4, TSH, FT3 #### [facility] [address] [address] [address] Mendel Herron PROF 14(COMP METB)on 023 Albumin [Mass/Vol] 4.0 g/dL Normal 3.4-5.0 [facility] Comment on above: Performed By: #### L IPID, CMP, T4, TSH, FT3 #### [facility] [address] [address] [address] Mendel Herron Albumin/Globulin [Mass ratio] 0.9 {ratio} Normal [facility] Comment on above: Performed By: #### L IPID, CMP, T4, TSH, FT3 #### [facility] [address] [place] [address] Dr. Mendel Herron ALP [Catalytic activity/Vol] 115 U/L Normal 46-116 [facility] Comment on above: Performed By: #### L IPID, CMP, T4, TSH, FT3 #### [facility] [address] [address] [address] Mendel Herron ALT [Catalytic activity/Vol] 30 U/L Normal 14-59 [facility] Comment on above: Performed By: #### L IPID, CMP, T4, TSH, FT3 #### [facility] [address] [place] [address] Dr. Mendel Herron Anion gap [Moles/Vol] 12.7 mmol/L Normal [facility] Comment on above: Performed By: #### L IPID, CMP, T4, TSH, FT3 #### [facility] [address] [place] [address] Dr. Mendel Herron AST [Catalytic activity/Vol] 18 U/L Normal 15-37 [facility] Comment on above: Performed By: #### L IPID, CMP, T4, TSH, FT3 #### [facility] [address] [place] [address] Dr. Mendel Herron Bilirubin [Mass/Vol] 0.7 mg/dL Normal 0.2-1.0 [facility] Comment on above: Performed By: #### L IPID, CMP, T4, TSH, FT3 #### [facility] [address] [place] [address] Dr. Mendel Herron Calcium [Mass/Vol] 9.7 mg/dL Normal 8.5-10.1 [facility] Comment on above: Performed By: #### L IPID, CMP, T4, TSH, FT3 #### [facility] [address] [place] [address] Dr. Mendel Herron Chloride [Moles/Vol] 103 mmol/L Normal 98-107 [facility] Comment on above: Performed By: #### L IPID, CMP, T4, TSH, FT3 #### [facility] [address] [place] [address] Dr. Mendel Herron CO2 [Moles/Vol] 26.5 mmol/L Normal 21.0-32.[address] [facility] Comment on above: Performed By: #### L IPID, CMP, T4, TSH, FT3 #### [facility] [address] [place] [address] Dr. Mendel Herron Creatinine [Mass/Vol] 0.83 mg/dL Normal 0.55-1.02 [facility] Comment on above: Performed By: #### L IPID, CMP, T4, TSH, FT3 #### [facility] [address] [address] [address] Mendel Herron EGFR-AF TRINIDADIAN >60 Normal >=[address] [facility] Comment on above: Performed By: #### L IPID, CMP, T4, TSH, FT3 #### [facility] [address] [address] [address] Mendel Herron EGFR-NON AF TRINIDADIAN >60 Normal >=60 [facility] Comment on above: Performed By: #### L IPID, CMP, T4, TSH, FT3 #### [facility] [address] [address] [address] Mendel Herron Globulin (S) [Mass/Vol] 4.4 g/dL Normal [facility] Comment on above: Performed By: #### L IPID, CMP, T4, TSH, FT3 #### [facility] [address] [address] [address] Mendel Herron Glucose [Mass/Vol] 97 mg/dL Normal 74-106 [facility] Comment on above: Performed By: #### L IPID, CMP, T4, TSH, FT3 #### [facility] [address] [address] [address] Mendel Herron Potassium [Moles/Vol] 4.2 mmol/L Normal 3.5-5.1 [facility] Comment on above: Performed By: #### L IPID, CMP, T4, TSH, FT3 #### [facility] [address] [address] [address] Mendel Herron Protein [Mass/Vol] 8.4 g/dL Critically high 6.4-8.2 [facility] Comment on above: Performed By: #### L IPID, CMP, T4, TSH, FT3 #### [facility] [address] [address] [address] Mendel Herron Sodium [Moles/Vol] 138 mmol/L Normal 136-145 [facility] Comment on above: Performed By: #### L IPID, CMP, T4, TSH, FT3 #### [facility] [address] [place] [address] Dr. Mendel Herron Urea nitrogen [Mass/Vol] 12.0 mg/dL Normal 7.0-18.0 [facility] Comment on above: Performed By: #### L IPID, CMP, T4, TSH, FT3 #### [facility] [address] [place] [address] Dr. Mendel Herron Urea nitrogen/Creatinine [Mass ratio] 14.5 mg/mg Normal [facility] Comment on above: Performed By: #### L IPID, CMP, T4, TSH, FT3 #### [facility] [address] [place] [address] Dr. Mendel Herron T4on 09-09-2022 T4 [Mass/Vol] 8.80 ug/dL Normal 4.80-13.90 [facility] Comment on above: Performed By: #### L IPID, CMP, T4, TSH, FT3 #### [facility] [address] [place] [address] Dr. Mendel Herron TSHon 09-09-2022 TSH 0.898 uIU/mL Normal 0.358-3.740 [facility] Comment on above: Performed By: #### L IPID, CMP, T4, TSH, FT3 #### [facility] [address] [place] [address] Dr. Mendel Herron VITAMIN D 25 OHon 09-09-2022 VIT D 25-OH 24.0 ng/mL Normal [facility] Comment on above: Performed By: #### L IPID, CMP, T4, TSH, FT3 #### [facility] [address] [place] [address] Dr. Mendel Herron VIT D RANGES SEE BELOW Normal [facility] Comment on above: Result Comment: <20 ng/mL Vit D deficient 20 - <30 ng/mL Vit D insufficient 30 - 100 ng/mL Vit D sufficient >100 ng/mL Potential Toxicity Performed By: #### L IPID, CMP, T4, TSH, FT3 #### [facility] [address] [address] [address] Mendel Herron NM HEPATOBILIARY SCAN W [...] by: VIVI GARY Date: 2022-08-20 16:07 Normal [facility] US SINGLE QUAD RT UPPERon US [...] JEAN LOPES Date: 2022-08-11 15:50 Normal [facility] CARDIAC SUBHA ADMITon 023 CK [Catalytic activity/Vol] 30 U/L Normal 26-192 [facility] Comment on above: Performed By: #### L IPID, CMP, T4, TSH, FT3 #### [facility] [address] [address] [address] Mendel Herron CK.MB [Mass/Vol] 1.02 ng/mL Normal <=3.60 [facility] Comment on above: Performed By: #### L IPID, CMP, T4, TSH, FT3 #### [facility] [address] [address] [address] Mendel Herron HSTROP 32.8 pg/mL Normal 4.0-51.3 [facility] Comment on above: Result Comment: CUT- OFF POINTS HAVE BEEN ESTABLISHED BASED ON THE FOURTH UNIVERSAL DEFINITIONS OF MYOCARDIAL INFARCTION. THE UPPER REFERENCE LIMIT (URL) OF TROPONIN, DEFINED THE 99TH PERCENTILE OF cTnI DISTRIBUTION IN A REFERENCE POPULATION, HAS BEEN CONFIRMED THE DECISION THRESHOLD FOR MS DIAGNOSIS. Performed By: #### L IPID, CMP, T4, TSH, FT3 #### [facility] [address] [address] [address] Mendel Herron SONYA 23 ng/mL Normal 9-82 [facility] Comment on above: Performed By: #### L IPID, CMP, T4, TSH, FT3 #### [facility] [address] [address] [address] Mendel Herron CBC AUTO DIFFon 08-09-2022 BASO # 0.0 103/ul Normal 0.0-0.1 [facility] Comment on above: Performed By: #### L IPID, CMP, T4, TSH, FT3 #### [facility] [address] [address] [address] Mendel Herron Basophils/100 WBC (Bld) 0.3 % Normal 0.2-2.0 [facility] Comment on above: Performed By: #### L IPID, CMP, T4, TSH, FT3 #### [facility] [address] [place] [address] Dr. Mendel Herron EO # 0.0 103/ul Normal 0.0-0.7 [facility] Comment on above: Performed By: #### L IPID, CMP, T4, TSH, FT3 #### [facility] [address] [place] [address] Dr. Mendel Herron Eosinophils/100 WBC (Bld) 0.3 % Critically low 0.9-7.0 [facility] Comment on above: Performed By: #### L IPID, CMP, T4, TSH, FT3 #### [facility] [address] [place] [address] Dr. Mendel Herron Erythrocyte distribution width (RBC) [Ratio] 13.1 % Normal 11.0-15.0 [facility] Comment on above: Performed By: #### L IPID, CMP, T4, TSH, FT3 #### [facility] [address] [place] [address] Dr. Mendel Herron Hematocrit (Bld) [Volume fraction] 42.7 % Normal 36.0-48.0 [facility] Comment on above: Performed By: #### L IPID, CMP, T4, TSH, FT3 #### [facility] [address] [place] [address] Dr. Mendel Herron Hemoglobin (Bld) [Mass/Vol] 15.4 g/dL Normal 12.0-16.0 [facility] Comment on above: Performed By: #### L IPID, CMP, T4, TSH, FT3 #### [facility] [address] [place] [address] Dr. Mendel Herron IG # 0.05 10e3/ul Critically high 0.00-0.03 [facility] Comment on above: Performed By: #### L IPID, CMP, T4, TSH, FT3 #### [facility] [address] [place] [address] Dr. Mendel Herron IG % 0.4 % Normal 0.0-0.5 [facility] Comment on above: Performed By: #### L IPID, CMP, T4, TSH, FT3 #### [facility] [address] [place] [address] Dr. Mendel Herron LYMPH # 2.5 103/ul Normal 1.2-3.8 [facility] Comment on above: Performed By: #### L IPID, CMP, T4, TSH, FT3 #### [facility] [address] [place] [address] Dr. Mendel Herron Lymphocytes/100 WBC (Bld) 21.2 % Normal 20.5-60.0 [facility] Comment on above: Performed By: #### L IPID, CMP, T4, TSH, FT3 #### [facility] [address] [place] [address] Dr. Mendel Herron MANUAL DIFF REQ NO Normal [facility] Comment on above: Performed By: #### L IPID, CMP, T4, TSH, FT3 #### [facility] [address] [place] [address] Dr. Mendel Herron MCH (RBC) [Entitic mass] 31.7 pg Normal 26.7-34.0 [facility] Comment on above: Performed By: #### L IPID, CMP, T4, TSH, FT3 #### [facility] [address] [place] [address] Dr. Mendel Herron MCHC (RBC) [Mass/Vol] 36.1 g/dL Critically high 29.9-35.2 [facility] Comment on above: Performed By: #### L IPID, CMP, T4, TSH, FT3 #### [facility] [address] [place] [address] Dr. Mendel Herron MCV (RBC) [Entitic vol] 87.9 fL Normal 81.0-99.0 [facility] Comment on above: Performed By: #### L IPID, CMP, T4, TSH, FT3 #### [facility] [address] [place] [address] Dr. Mendel Herron MONO # 0.7 103/ul Normal 0.3-0.8 [facility] Comment on above: Performed By: #### L IPID, CMP, T4, TSH, FT3 #### [facility] [address] [address] [address] Mendel Herron Monocytes/100 WBC (Bld) 6.3 % Normal 1.7-12.0 [facility] Comment on above: Performed By: #### L IPID, CMP, T4, TSH, FT3 #### [facility] [address] [place] [address] Dr. Mendel Herron NEUT # 8.4 103/ul Critically high 1.4-6.5 [facility] [place] Comment on above: Performed By: #### L IPID, CMP, T4, TSH, FT3 #### [facility] [address] [place] [address] Dr. Mendel Herron Neutrophils/100 WBC (Bld) 71.5 % Normal 43.0-75.0 [facility] Comment on above: Performed By: #### L IPID, CMP, T4, TSH, FT3 #### [facility] [address] [place] [address] Dr. Mendel Herron Platelet mean volume (Bld) [Entitic vol] 9.8 fL Normal 9.5-13.5 [facility] Comment on above: Performed By: #### L IPID, CMP, T4, TSH, FT3 #### [facility] [address] [place] [address] Dr. Mendel Herron PLT 374 103/ul Normal 150-450 [facility] Comment on above: Performed By: #### L IPID, CMP, T4, TSH, FT3 #### [facility] [address] [place] [address] Dr. Mendel Herron RBC 4.86 106/ul Normal 4.20-5.40 [facility] Comment on above: Performed By: #### L IPID, CMP, T4, TSH, FT3 #### [facility] [address] [place] [address] Dr. Mendel Herron WBC 11.7 103/ul Critically high 4.0-11.0 [facility] Comment on above: Performed By: #### L IPID, CMP, T4, TSH, FT3 #### [facility] [id number] Mendel Herron CT HEAD WO CONon [...] HELLEN VELAZQUEZ Date: 2022-08-09 15:23 Normal [facility] Covid-19 PCR ([facility])on 07-20 SARS-CoV-2 (COVID-19) RNA DEIRDRE+probe Ql (Unsp spec) Not detected Normal NOT DETECTED [facility] Comment on above: Result Comment: [...] for this test is supported by the [place] of [employer] and Human Service's declaration that [...] L IPID, CMP, T4, TSH, FT3 #### [facility] [address] [address] [address] Mendel Herron ER URINE PROFILEon 3 Bilirubin Ql (U) Negative Normal NEGATIVE [facility] Comment on above: Performed By: #### L IPID, CMP, T4, TSH, FT3 #### [facility] [address] [address] [address] Mendel Herron Clarity (U) CLEAR Normal CLEAR [facility] Comment on above: Performed By: #### L IPID, CMP, T4, TSH, FT3 #### [facility] [address] [place] [address] Dr. Mendel Herron Color (U) LT. YELLOW Normal YELLOW [facility] Comment on above: Performed By: #### L IPID, CMP, T4, TSH, FT3 #### [facility] [address] [place] [address] Dr. Mendel DECKER A micrscopic examination will be performed if indicated. Normal [facility] Comment on above: Performed By: #### L IPID, CMP, T4, TSH, FT3 #### [facility] [address] [place] [address] Dr. Mendel Herron Glucose Ql (U) Negative Normal NEGATIVE [facility] Comment on above: Performed By: #### L IPID, CMP, T4, TSH, FT3 #### [facility] [address] [place] [address] Dr. Mendel Herron Hemoglobin Ql (U) TRACE-INTACT Abnormal NEGATIVE [facility] Comment on above: Performed By: #### L IPID, CMP, T4, TSH, FT3 #### [facility] [address] [place] [address] Dr. Mendel Herron Ketones Ql (U) Negative Normal NEGATIVE [facility] Comment on above: Performed By: #### L IPID, CMP, T4, TSH, FT3 #### [facility] [address] [place] [address] Dr. Mendel Herron LEUKOCYTES Negative Normal NEGATIVE [facility] Comment on above: Performed By: #### L IPID, CMP, T4, TSH, FT3 #### [facility] [address] [place] [address] Dr. Mendel Herron Nitrite Ql (U) Negative Normal NEGATIVE [facility] Comment on above: Performed By: #### L IPID, CMP, T4, TSH, FT3 #### [facility] [address] [place] [address] Dr. Mendel Herron pH (U) 5.0 [pH] Normal 5-9 [facility] Comment on above: Performed By: #### L IPID, CMP, T4, TSH, FT3 #### [facility] [address] [place] [address] Dr. Mendel Herron SPEC GRAVITY 1.015 Normal 1.005-<=1.025 [facility] [place] Comment on above: Performed By: #### L IPID, CMP, T4, TSH, FT3 #### [facility] [address] [place] [address] Dr. Mendel Herron UA PROTEIN Negative Normal NEGATIVE/ TRACE [facility] Comment on above: Performed By: #### L IPID, CMP, T4, TSH, FT3 #### [facility] [address] [place] [address] Dr. Mendel Herron UR MICRO IND INDICATED Normal [facility] Comment on above: Performed By: #### L IPID, CMP, T4, TSH, FT3 #### [facility] [address] [place] [address] Dr. Mendel Herron Urobilinogen Qn (U) 0.2 {James'U}/dL Normal 0.2 - 1. 0 [facility] Comment on above: Performed By: #### L IPID, CMP, T4, TSH, FT3 #### [facility] [address] [place] [address] Dr. Mendel Herron LIPASEon 08-09-2022 Lipase [Catalytic activity/Vol] 114.0 U/L Normal 73.0-393.0 [facility] Comment on above: Performed By: #### L IPA, BMP, CMADM #### [facility] [address] [address] [address] Mendel Herron PROF CHEM 8 (BAS METB)on Anion gap [Moles/Vol] 18.9 mmol/L Normal [facility] Comment on above: Performed By: #### L IPA, BMP, CMADM #### [facility] [address] [address] [address] Mendel Herron Calcium [Mass/Vol] 9.4 mg/dL Normal 8.5-10.1 [facility] Comment on above: Performed By: #### L IPA, BMP, CMADM #### [facility] [address] [address] [address] Mendel Herron Chloride [Moles/Vol] 97 mmol/L Critically low 98-107 [facility] Comment on above: Performed By: #### L IPA, BMP, CMADM #### [facility] [address] [place] [address] Dr. Mendel Herron CO2 [Moles/Vol] 26.0 mmol/L Normal 21.0-32.0 [facility] Comment on above: Performed By: #### L IPA, BMP, CMADM #### [facility] [address] [place] [address] Dr. Mendel Herron Creatinine [Mass/Vol] 0.85 mg/dL Normal 0.55-1.02 [facility] Comment on above: Performed By: #### L IPA, BMP, CMADM #### [facility] [address] [place] [address] Dr. Mendel Herron EGFR-AF TRINIDADIAN >60 Normal >=60 [facility] Comment on above: Performed By: #### L IPA, BMP, CMADM #### [facility] [address] [place] [address] Dr. Mendel Herron EGFR-NON AF TRINIDADIAN >60 Normal >=60 [facility] Comment on above: Performed By: #### L IPA, BMP, CMADM #### [facility] [address] [address] [address] Mendel Herron Glucose [Mass/Vol] 120 mg/dL Critically high 74-106 [facility] Comment on above: Performed By: #### L IPA, BMP, CMADM #### [facility] [address] [address] [address] Mendel Herron Potassium [Moles/Vol] 3.9 mmol/L Normal 3.5-5.1 [facility] Comment on above: Performed By: #### L IPA, BMP, CMADM #### [facility] [address] [address] [address] Mendel Herron Sodium [Moles/Vol] 138 mmol/L Normal 136-145 [facility] Comment on above: Performed By: #### L IPA, BMP, CMADM #### [facility] [address] [place] [address] Dr. Mendel Herron Urea nitrogen [Mass/Vol] 17.0 mg/dL Normal 7.0-18.0 [facility] Comment on above: Performed By: #### L IPA, BMP, CMADM #### [facility] [address] [address] [address] Mendel Herron Urea nitrogen/Creatinine [Mass ratio] 20.0 mg/mg Normal [facility] Comment on above: Performed By: #### L IPA, BMP, CMADM #### [facility] [address] [place] [address] Dr. Mendel Herron TROPONIN, HIGH SENSITIVITYon 08-09-2022 HSTROP 32.5 pg/mL Normal 4.0-51.3 [facility] Comment on above: Result Comment: CUT- OFF POINTS HAVE BEEN ESTABLISHED BASED ON THE FOURTH UNIVERSAL DEFINITIONS OF MYOCARDIAL INFARCTION. THE UPPER REFERENCE LIMIT (URL) OF TROPONIN, DEFINED THE 99TH PERCENTILE OF cTnI DISTRIBUTION IN A REFERENCE POPULATION, HAS BEEN CONFIRMED THE DECISION THRESHOLD FOR MS DIAGNOSIS. Performed By: #### L IPID, CMP, T4, TSH, FT3 #### [facility] [address] [place] [address] Dr. Mendel Herron URINE MICROSCOPIC ONLYon BACTERIA NONE SEEN Normal NONE SEEN [facility] Comment on above: Performed By: #### L IPID, CMP, T4, TSH, FT3 #### [facility] [address] [address] [address] Mendel Herron Bacteria identified Cx Nom (U) NOT INDICATED Normal [facility] Comment on above: Performed By: #### L IPID, CMP, T4, TSH, FT3 #### [facility] [address] [address] [address] Mendel Herron CAST NONE SEEN Normal NONE SEEN [facility] Comment on above: Performed By: #### L IPID, CMP, T4, TSH, FT3 #### [facility] [address] [address] [address] Mendel Herron Crystals LM Nom (Urine sed) NONE SEEN Normal NONE SEEN [facility] Comment on above: Performed By: #### L IPID, CMP, T4, TSH, FT3 #### [facility] [address] [place] [address] Dr. Mendel Herron Epithelial cells LM Ql (Urine sed) NONE SEEN Normal NONE SEEN /RARE [facility] Comment on above: Performed By: #### L IPID, CMP, T4, TSH, FT3 #### [facility] [address] [place] [address] Dr. Mendel Herron MUCOUS NONE SEEN Normal NONE SEEN [facility] Comment on above: Performed By: #### L IPID, CMP, T4, TSH, FT3 #### [facility] [address] [place] [address] Dr. Mendel Herron RBC 0-2 Normal 0-2 [facility] Comment on above: Performed By: #### L IPID, CMP, T4, TSH, FT3 #### [facility] [address] [address] [address] Mendel Herron WBC NONE SEEN Normal NONE SEEN [facility] Comment on above: Performed By: #### L IPID, CMP, T4, TSH, FT3 #### [facility] [address] [address] [address] Mendel Herron XR CHEST 1 Von [...] by: MARY DIETZ Date: 2022-08-09 15:18 Normal [facility] H PYLORI ANTIBODY IGGon 07-20 H. PYLORI IGG ABS 0.11 Index Value Normal 0.00-0.79 [facility] Comment on above: Result Comment: Nega tive <0.80 Equivocal 0.80 - 0.89 Positive >0.89 Performed By: #### L IPID, CMP, T4, TSH, FT3 #### [facility] [address] [place] [address] Dr. Mendel Herron AMYLASEon 08-06-2022 Amylase [Catalytic activity/Vol] 57 U/L Normal 25-115 [facility] Comment on above: Performed By: #### L IPID, CMP, T4, TSH, FT3 #### [facility] [address] [place] [address] Dr. Mendel Herron CBC AUTO DIFFon 08-06-2022 BASO # 0.1 103/ul Normal 0.0-0.1 [facility] Comment on above: Performed By: #### L IPID, CMP, T4, TSH, FT3 #### [facility] [address] [place] [address] Dr. Mendel Herron Basophils/100 WBC (Bld) 0.7 % Normal 0.2-2.0 [facility] Comment on above: Performed By: #### L IPID, CMP, T4, TSH, FT3 #### [facility] [address] [place] [address] Dr. Mendel Herron EO # 0.1 103/ul Normal 0.0-0.7 [facility] Comment on above: Performed By: #### L IPID, CMP, T4, TSH, FT3 #### [facility] [address] [place] [address] Dr. Mendel Herron Eosinophils/100 WBC (Bld) 0.5 % Critically low 0.9-7.0 [facility] Comment on above: Performed By: #### L IPID, CMP, T4, TSH, FT3 #### [facility] [address] [place] [address] Dr. Mendel Herron Erythrocyte distribution width (RBC) [Ratio] 13.7 % Normal 11.0-15.0 [facility] Comment on above: Performed By: #### L IPID, CMP, T4, TSH, FT3 #### [facility] [address] [place] [address] Dr. Mendel Herron Hematocrit (Bld) [Volume fraction] 46.2 % Normal 36.0-48.0 [facility] Comment on above: Performed By: #### L IPID, CMP, T4, TSH, FT3 #### [facility] [address] [place] [address] Dr. Mendel Herron Hemoglobin (Bld) [Mass/Vol] 15.1 g/dL Normal 12.0-16.0 [facility] Comment on above: Performed By: #### L IPID, CMP, T4, TSH, FT3 #### [facility] [address] [place] [address] Dr. Mendel Herron IG # 0.06 10e3/ul Critically high 0.00-0.03 [facility] Comment on above: Performed By: #### L IPID, CMP, T4, TSH, FT3 #### [facility] [address] [place] [address] Dr. Mendel Herron IG % 0.6 % Critically high 0.0-0.5 [facility] Comment on above: Performed By: #### L IPID, CMP, T4, TSH, FT3 #### [facility] [address] [place] [address] Dr. Mendel Herron LYMPH # 2.5 103/ul Normal 1.2-3.8 [facility] Comment on above: Performed By: #### L IPID, CMP, T4, TSH, FT3 #### [facility] [address] [place] [address] Dr. Mendel Herron Lymphocytes/100 WBC (Bld) 23.4 % Normal 20.5-60.0 [facility] Comment on above: Performed By: #### L IPID, CMP, T4, TSH, FT3 #### [facility] [address] [place] [address] Dr. Mendel Herron MANUAL DIFF REQ NO Normal [facility] Comment on above: Performed By: #### L IPID, CMP, T4, TSH, FT3 #### [facility] [address] [place] [address] Dr. Mendel Herron MCH (RBC) [Entitic mass] 31.4 pg Normal 26.7-34.0 [facility] Comment on above: Performed By: #### L IPID, CMP, T4, TSH, FT3 #### [facility] [address] [place] [address] Dr. Mendel Herron MCHC (RBC) [Mass/Vol] 32.7 g/dL Normal 29.9-35.2 [facility] Comment on above: Performed By: #### L IPID, CMP, T4, TSH, FT3 #### [facility] [address] [place] [address] Dr. Mendel Herron MCV (RBC) [Entitic vol] 96.0 fL Normal 81.0-99.0 [facility] Comment on above: Performed By: #### L IPID, CMP, T4, TSH, FT3 #### [facility] [address] [place] [address] Dr. Mendel Herron MONO # 0.6 103/ul Normal 0.3-0.8 [facility] Comment on above: Performed By: #### L IPID, CMP, T4, TSH, FT3 #### [facility] [address] [place] [address] Dr. Mendel Herron Monocytes/100 WBC (Bld) 6.0 % Normal 1.7-12.0 [facility] Comment on above: Performed By: #### L IPID, CMP, T4, TSH, FT3 #### [facility] [address] [place] [address] Dr. Mendel Herron NEUT # 7.4 103/ul Critically high 1.4-6.5 [facility] Comment on above: Performed By: #### L IPID, CMP, T4, TSH, FT3 #### [facility] [address] [address] [address] Mendel Herron Neutrophils/100 WBC (Bld) 68.8 % Normal 43.0-75.0 [facility] Comment on above: Performed By: #### L IPID, CMP, T4, TSH, FT3 #### [facility] [address] [address] [address] Mendel Herron Platelet mean volume (Bld) [Entitic vol] 9.7 fL Normal 9.5-13.5 [facility] Comment on above: Performed By: #### L IPID, CMP, T4, TSH, FT3 #### [facility] [address] [address] [address] Mendel Herron PLT 331 103/ul Normal 150-450 [facility] Comment on above: Performed By: #### L IPID, CMP, T4, TSH, FT3 #### [facility] [address] [address] [address] Mendel Herron RBC 4.81 106/ul Normal 4.20-5.40 [facility] Comment on above: Performed By: #### L IPID, CMP, T4, TSH, FT3 #### [facility] [address] [address] [address] Mendel Herron WBC 10.7 103/ul Normal 4.0-11.0 [facility] Comment on above: Performed By: #### L IPID, CMP, T4, TSH, FT3 #### [facility] [address] [place] [address] HEAD WO CONon [...] by: JEAN LOPES Date: 2022-08-06 08:39 Normal [facility] LIPASEon 08-06-2022 Lipase [Catalytic activity/Vol] 125.0 U/L Normal 73.0-393.0 [facility] Comment on above: Performed By: #### L IPID, CMP, T4, TSH, FT3 #### [facility] [address] [place] [address] Dr. Mendel Herron PROF 14(COMP METB)on 023 Albumin [Mass/Vol] 3.7 g/dL Normal 3.4-5.0 [facility] Comment on above: Performed By: #### L IPID, CMP, T4, TSH, FT3 #### [facility] [address] [address] [address] Mendel Herron Albumin/Globulin [Mass ratio] 0.9 {ratio} Normal [facility] Comment on above: Performed By: #### L IPID, CMP, T4, TSH, FT3 #### [facility] [address] [address] [address] Mendel Herron ALP [Catalytic activity/Vol] 110 U/L Normal 46-116 [facility] Comment on above: Performed By: #### L IPID, CMP, T4, TSH, FT3 #### [facility] [address] [address] [address] Mendel Herron ALT [Catalytic activity/Vol] 25 U/L Normal 14-59 [facility] Comment on above: Performed By: #### L IPID, CMP, T4, TSH, FT3 #### [facility] [address] [address] [address] Mendel Herron Anion gap [Moles/Vol] 14.0 mmol/L Normal [facility] Comment on above: Performed By: #### L IPID, CMP, T4, TSH, FT3 #### [facility] [address] [address] [address] Mendel Herron AST [Catalytic activity/Vol] 16 U/L Normal 15-37 [facility] Comment on above: Performed By: #### L IPID, CMP, T4, TSH, FT3 #### [facility] [address] [address] [address] Mendel Herron Bilirubin [Mass/Vol] 0.6 mg/dL Normal 0.2-1.0 [facility] Comment on above: Performed By: #### L IPID, CMP, T4, TSH, FT3 #### [facility] [address] [place] [address] Dr. Mendel Herron Calcium [Mass/Vol] 9.3 mg/dL Normal 8.5-10.1 [facility] Comment on above: Performed By: #### L IPID, CMP, T4, TSH, FT3 #### [facility] [address] [address] [address] Mendel Herron Chloride [Moles/Vol] 103 mmol/L Normal 98-107 [facility] Comment on above: Performed By: #### L IPID, CMP, T4, TSH, FT3 #### [facility] [address] [address] [address] Mendel Herron CO2 [Moles/Vol] 27.3 mmol/L Normal 21.0-32.0 [facility] Comment on above: Performed By: #### L IPID, CMP, T4, TSH, FT3 #### [facility] [address] [address] [address] Mendel Herron Creatinine [Mass/Vol] 0.71 mg/dL Normal 0.55-1.02 [facility] Comment on above: Performed By: #### L IPID, CMP, T4, TSH, FT3 #### [facility] [address] [address] [address] Mendel Herron EGFR-AF TRINIDADIAN >60 Normal >=60 [facility] Comment on above: Performed By: #### L IPID, CMP, T4, TSH, FT3 #### [facility] [address] [place] [address] Dr. Mendel Herron EGFR-NON AF TRINIDADIAN >60 Normal >=60 [facility] Comment on above: Performed By: #### L IPID, CMP, T4, TSH, FT3 #### [facility] [address] [address] [address] Mendel Herron Globulin (S) [Mass/Vol] 4.3 g/dL Normal [facility] Comment on above: Performed By: #### L IPID, CMP, T4, TSH, FT3 #### [facility] [address] [place] [address] Dr. Mendel Herron Glucose [Mass/Vol] 102 mg/dL Normal 74-106 [facility] Comment on above: Performed By: #### L IPID, CMP, T4, TSH, FT3 #### [facility] [address] [place] [address] Dr. Mendel Herron Potassium [Moles/Vol] 4.3 mmol/L Normal 3.5-5.1 [facility] Comment on above: Performed By: #### L IPID, CMP, T4, TSH, FT3 #### [facility] [address] [place] [address] Dr. Mendel Herron Protein [Mass/Vol] 8.0 g/dL Normal 6.4-8.2 [facility] Comment on above: Performed By: #### L IPID, CMP, T4, TSH, FT3 #### [facility] [address] [place] [address] Dr. Mendel Herron Sodium [Moles/Vol] 140 mmol/L Normal 136-145 [facility] Comment on above: Performed By: #### L IPID, CMP, T4, TSH, FT3 #### [facility] [address] [place] [address] Dr. Mendel Herron Urea nitrogen [Mass/Vol] 19.0 mg/dL Critically high 7.0-18.0 [facility] Comment on above: Performed By: #### L IPID, CMP, T4, TSH, FT3 #### [facility] [address] [place], [place] [address] Dr. Mendel Herron Urea nitrogen/Creatinine [Mass ratio] 26.8 mg/mg Normal [facility] Comment on above: Performed By: #### L IPID, CMP, T4, TSH, FT3 #### [facility] [address] [address] [address] Mendel Herron Covid-19 PCR ([facility])on 06-19 SARS-CoV-2 (COVID-19) RNA DEIRDRE+probe Ql (Unsp spec) Not detected Normal NOT DETECTED [facility] Comment on above: Result Comment: This test is not yet approved or cleared by the [place] FDA. When there are no FDA-approved or cleared tests available, and other criteria are met, FDA can make tests available under an emergency access mechanism called an Emergency Use Authorization (EUA). The EUA for this test is supported by the Greeter of Health and Human Service's (HHS's) declaration [...] SARS-CoV-2. Performed By: #### C VDTBH #### [facility] [address] [place], [place] [address] Dr. Mendel Herron INFLUENZA A AND B AGon 07-16 INFLUANEGH SEE BELOW Normal [facility] Comment on above: Result Comment: Nega tive for Flu A protein angiten. Infection due to Flu A cannot be ruled out. Flu A angiten in the sample may be below the detection limit of the test. Performed By: #### L IPID, CMP, T4, TSH, FT3 #### [facility] [address] [address] [address] Mendel Herron INFLUBNEGH SEE BELOW Normal [facility] Comment on above: Result Comment: Nega tive for Flu B protein antigen. Infection due to Flu B cannot be ruled out. Flu B antigen in the sample may be below the detection limit of the test. Performed By: #### L IPID, CMP, T4, TSH, FT3 #### [facility] [address] [address] [address] Mendel Herron INFLUENZA A AG Negative Normal NEGATIVE SEE COMMENT [facility] Comment on above: Performed By: #### L IPID, CMP, T4, TSH, FT3 #### [facility] [address] [place] [address] Dr. Mendel Herron INFLUENZA B AG Negative Normal NEGATIVE SEE COMMENT [facility] Comment on above: Performed By: #### L IPID, CMP, T4, TSH, FT3 #### [facility] [address] [place] [address] Dr. Mendel Herron Covid-19 PCR ([facility])on 04-19 SARS-CoV-2 (COVID-19) RNA DEIRDRE+probe Ql (Unsp spec) Not detected Normal NOT DETECTED [facility] Comment on above: Result Comment: This test is not yet approved or cleared by the [place] FDA. When there are no FDA-approved or cleared tests available, and other criteria are met, FDA can make tests available under an emergency access mechanism called an Emergency Use Authorization (EUA). The EUA for this test is supported by the Cory of Health and Human Service's (HHS's) declaration [...] L IPID, CMP, T4, TSH, FT3 #### [facility] [address] [address] [address] Mendel Herron INFLUENZA A AND B AGon 05-11 [facility] SEE BELOW Normal [facility] Comment on above: Result Comment: Nega tive for Flu A protein angiten. Infection due to Flu A cannot be ruled out. Flu A angiten in the sample may be below the detection limit of the test. Performed By: #### L IPID, CMP, T4, TSH, FT3 #### [facility] [address] [address] [address] Mendel Herron INFLUBNEGH SEE BELOW Normal [facility] Comment on above: Result Comment: Nega tive for Flu B protein antigen. Infection due to Flu B cannot be ruled out. Flu B antigen in the sample may be below the detection limit of the test. Performed By: #### L IPID, CMP, T4, TSH, FT3 #### [facility] [address] [address] [address] Mendel Herron INFLUENZA A AG Negative Normal NEGATIVE SEE COMMENT [facility] Comment on above: Performed By: #### L IPID, CMP, T4, TSH, FT3 #### [facility] [address] [place] [address] Dr. Mendel Herron INFLUENZA B AG Negative Normal NEGATIVE SEE COMMENT [facility] Comment on above: Performed By: #### L IPID, CMP, T4, TSH, FT3 #### [facility] [address] [address] [address] Mendel Herron INTERNAL CONTROLS Within Normal Limits Normal Wi thin Normal Limits [facility] Comment on above: Performed By: #### L IPID, CMP, T4, TSH, FT3 #### [facility] [address] [place] [address] Dr. Mendel Herron Comprehensive Metabolic Empo n 12-23-2021 Albumin [Mass/Vol] 3.7 g/dL Normal 3.2-5.5 [facility] Comment on above: Performed By: #### E BS CMP, EBS LIPID #### [facility] [address] Albumin/Globulin [Mass ratio] 1.0 {ratio} Normal [facility] Comment on above: Performed By: #### E BS CMP, EBS LIPID #### [facility] [address] ALP [Catalytic activity/Vol] 159 U/L High 32-92 [facility] Comment on above: Performed By: #### E BS CMP, EBS LIPID #### [address] ALT [Catalytic activity/Vol] 28 U/L Normal 10-60 [facility] Comment on above: Performed By: #### E BS CMP, EBS LIPID #### [address] AST [Catalytic activity/Vol] 27 U/L Normal 10-42 [facility] Comment on above: Performed By: #### E BS CMP, EBS LIPID #### [address] Bilirubin [Mass/Vol] 1.2 mg/dL Normal 0.3-1.2 [facility] Comment on above: Performed By: #### E BS CMP, EBS LIPID #### [address] Calcium [Mass/Vol] 9.2 mg/dL Normal 8.2-10.2 [facility] Comment on above: Performed By: #### E BS CMP, EBS LIPID #### [facility] [address] [place] [address] [place] Chloride [Moles/Vol] 100 mmol/L Normal 95-114 [facility] Comment on above: Performed By: #### E BS CMP, EBS LIPID #### [facility] [address] [place] [address] [place] CO2 [Moles/Vol] 20.6 mmol/L Low 22.0-30.0 [facility] Comment on above: Performed By: #### E BS CMP, EBS LIPID #### [facility] [address] [place] [address] [place] Creatinine [Mass/Vol] 0.57 mg/dL Normal 0.44-1.03 [facility] Comment on above: Performed By: #### E BS CMP, EBS LIPID #### [facility] [address] [place] [address] [place] Estimated GFR ( Ni > 60 Normal [facility] Comment on above: Result Comment: GFR estimated reference range: According to KDOQI guidelines, <60 ml/min/1.73m2 is sufficient to diagnose a patient with chronic kidney disease. Performed By: #### E BS CMP, EBS LIPID #### [address] Estimated GFR (Non- Am > 60 Normal [facility] Comment on above: Performed By: #### E BS CMP, EBS LIPID #### [address] Globulin (S) [Mass/Vol] 3.7 g/dL Normal [facility] Comment on above: Performed By: #### E BS CMP, EBS LIPID #### [address] Glucose [Mass/Vol] 100 mg/dL Normal 70-100 [facility] Comment on above: Performed By: #### E BS CMP, EBS LIPID #### [address] Potassium [Moles/Vol] 3.9 mmol/L Normal 3.5-5.1 [facility] Comment on above: Performed By: #### E BS CMP, EBS LIPID #### [address] Protein [Mass/Vol] 7.4 g/dL Normal 6.1-7.9 [facility] Comment on above: Performed By: #### E BS CMP, EBS LIPID #### [address] Sodium [Moles/Vol] 135 mmol/L Low 136-146 [facility] Comment on above: Performed By: #### E BS CMP, EBS LIPID #### [place] [address] [place] Urea nitrogen [Mass/Vol] 12 mg/dL Normal 9-23 [facility] Comment on above: Performed By: #### E BS CMP, EBS LIPID #### [facility] [address] Lipid Profileon 12-23-2021 Cholesterol [Mass/Vol] 213 mg/dL High 140-200 [facility] Comment on above: Result Comment: Chol less than 200 mg/dl low risk Chol 201-239 mg/dl borderline risk Chol 240 mg/dl and greater high risk Performed By: #### E BS CMP, EBS LIPID #### [facility] [address] Cholesterol in HDL [Mass/Vol] 36 mg/dL Normal 35-85 [facility] Comment on above: Result Comment: HDL CHOL ATP-III CLASSIFICATION Cardiovascular Risk HDL > or equal to 60 mg/dL LOW HDL < 40 mg/dL HIGH Performed By: #### E BS CMP, EBS LIPID #### [facility] [address] Cholesterol.total/Ch olesterol in HDL [Mass ratio] 5.9 {ratio} Normal <5.0 [facility] Comment on above: Result Comment: PERF ORMED BY: [place] [address] PATHOLOGIST [employer] MARIBEL AGUILLON M.D. Performed By: #### E BS CMP, EBS LIPID #### [facility] [address] LDL Cholesterol,Calculat ed 151 mg/dL High 0-100 [facility] Comment on above: Result Comment: LDL ATP III CLASSIFICATION LDL less than 100 mg/dL Optimal LDL 100-129 mg/dL Near or above optimal LDL 130-159 mg/dL Borderline high LDL 160-189 mg/dL High LDL greater than 189 mg/dL Very high Performed By: #### E BS CMP, EBS LIPID #### [facility] [address] Triglyceride w/Reflex 129 mg/dL Normal 35-149 [facility] Comment on above: Result Comment: TRIG ATP III CLASSIFICATION TRIG less than 150 mg/dL Normal TRIG 150-199 mg/dL Borderline high TRIG 200-500 mg/dL High TRIG greater than 500 mg/dL Very high Standard traceable to the Center for Disease Conrtrol and Prevention (CDC) test method. Performed By: #### E BS CMP, EBS LIPID #### [facility] [address] VLDL CHOLESTEROL 25 mg/dL Normal [facility] Comment on above: Performed By: #### E BS CMP, EBS LIPID #### [facility] [address] Covid-19 PCR ([facility])on 11-16 SARS-CoV-2 (COVID-19) RNA DEIRDRE+probe Ql (Unsp spec) Detected Critically abnormal NOT DETECTED [facility] Comment on above: Result Comment: This test is not yet approved or cleared by the [place] FDA. When there are no FDA-approved or cleared tests available, and other criteria are met, FDA can make tests available under an emergency access mechanism called an Emergency Use Authorization (EUA). The EUA for this test is supported by the [place] of Health and Human Service's declaration that [...] used). Performed By: #### C VDTBH #### [facility] [address] [place] [address] Dr. Mendel Herron INFLUENZA A AND B AGon 12-02 INFLUANEGH SEE BELOW Normal [facility] Comment on above: Result Comment: Nega tive for Flu A protein angiten. Infection due to Flu A cannot be ruled out. Flu A angiten in the sample may be below the detection limit of the test. Performed By: #### L IPID, CMP, T4, TSH, FT3 #### [facility] [address] [address] [address] Mendel Herron INFLUBNEG SEE BELOW Normal [facility] Comment on above: Result Comment: Nega tive for Flu B protein antigen. Infection due to Flu B cannot be ruled out. Flu B antigen in the sample may be below the detection limit of the test. Performed By: #### L IPID, CMP, T4, TSH, FT3 #### [facility] [address] [place], [place] [address] Dr. Mendel Herron INFLUENZA A AG Negative Normal NEGATIVE SEE COMMENT [facility] Comment on above: Performed By: #### L IPID, CMP, T4, TSH, FT3 #### [facility] [address] [place], [place] [address] Dr. Mendel Herron INFLUENZA B AG Negative Normal NEGATIVE SEE COMMENT [facility] Comment on above: Performed By: #### L IPID, CMP, T4, TSH, FT3 #### [facility] [address] [place], [place] [address] Dr. Mendel Herron INTERNAL CONTROLS Within Normal Limits Normal Wi thin Normal Limits [facility] Comment on above: Performed By: #### L IPID, CMP, T4, TSH, FT3 #### [facility] [address] [place], [place] [address] Dr. Mendel Herron Cardiovascular Lab Reporton 08-18-2021 Cardiovascular Lab Report [facility] Patient Name: Antonio [facility] S MR #: [id number] Department of Physician: Curtis Martinez MD Medicine Service Date: 08/18/2021 Division of Birthdate: 1970 Cardiology Room #: Adult Cardiovascular Services [place] [address] Cardiovascular Laboratory Report ATRIAL FLUTTER ABLATION AND [...] ab (more content not included)... Normal [facility] BILL Antinuclear Antibodieson 04-23-2021 Antinuclear Abs, IFA Negative Normal . [facility] Comment on above: Result Comment: Nega tive <1:80 Borderline 1:80 Positive >1:80 ICAP nomenclature: AC-0 For more information about Hep-2 cell patterns use ANApatterns.org, the official website for the International Consensus on Antinuclear Antibody (BILL) Patterns (ICAP). Performed at: - [facility] [id number] Scale Installer: Ger Yen PhD, Phone: [phone] PERFORMED BY: [address] [address] PATHOLOGIST ELECTRICAL AND ELECTRONIC ASSEMBLER MARIBEL AGUILLON M.D. Performed By: #### E SR, CRP, CBC, CREAT #### [facility] [address] [place] [address] [place] #### BILL #### [facility] , C-Reactive Proteinon 021 C-Reactive Protein 0.7 mg/dL Normal 0.0-1.0 [facility] Comment on above: Result Comment: PERF ORMED BY: [place] [address] PATHOLOGIST ELECTRICAL AND ELECTRONIC ASSEMBLER MARIBEL AGUILLON M.D. Performed By: #### E SR, CRP, CBC, CREAT #### [address] #### BILL #### [facility] , Complement C3on 04-23-2021 Complement C3 170 mg/dL High 82-167 [facility] Comment on above: Result Comment: Perf ormed at: - [facility] [address] [id number] Scale Installer: Ger Yen PhD, Phone: [phone] Performed By: #### A DDONUAPLUS #### [address] #### CH50, C3, C4 #### [facility] , Complement C4on 04-23-2021 Complement C4 14 mg/dL Normal 12-38 [facility] Comment on above: Performed By: #### A DDONUAPLUS #### [facility] [address] [place] [address] #### CH50, C3, C4 #### [facility] , Complement Total (CH50)on Complement Total (CH50) >60 Normal >41 [facility] Comment on above: Result Comment: Age [...] determine out of range values. Performed at: - [facility], [place], [place] [id number] Scale Installer: Ger Yen PhD, Phone: [phone] PERFORMED BY: [place] [address] PATHOLOGIST ELECTRICAL AND ELECTRONIC ASSEMBLER MARIBEL AGUILLON M.D. Performed By: #### E BS CMP, EBS LIPID #### [address] Complete Blood Count Auto Di ffon 04-23-2021 Basophils (Bld) [#/Vol] 0.1 10*3/uL Normal 0.0-0.2 [facility] Comment on above: Performed By: #### E SR, CRP, CBC, CREAT #### [address] #### BILL #### [facility] , Basophils/100 WBC (Bld) 0.7 % Normal . [facility] Comment on above: Performed By: #### E SR, CRP, CBC, CREAT #### [address] #### BILL #### [facility] , Eosinophils (Bld) [#/Vol] 0.1 10*3/uL Normal 0.0-0.45 [facility] Comment on above: Performed By: #### E SR, CRP, CBC, CREAT #### [place] [address] [place] #### BILL #### [facility] , Eosinophils/100 WBC (Bld) 0.5 % Normal . [facility] Comment on above: Performed By: #### E SR, CRP, CBC, CREAT #### [place] [address] [place] #### BILL #### [facility] , Erythrocyte distribution width (RBC) [Ratio] 18.0 % High 11.9-15.3 [facility] Comment on above: Performed By: #### E SR, CRP, CBC, CREAT #### [facility] [address] [place] [address] #### BILL #### [facility] , Hematocrit (Bld) [Volume fraction] 31.6 % Low 34.0-46.4 [facility] Comment on above: Performed By: #### E SR, CRP, CBC, CREAT #### [address] #### BILL #### [facility] , Hemoglobin (Bld) [Mass/Vol] 9.8 g/dL Low 11.8-15.4 [facility] Comment on above: Performed By: #### E SR, CRP, CBC, CREAT #### [address] #### BILL #### [facility] , Lymphocytes (Bld) [#/Vol] 1.7 10*3/uL Normal 1.00-4.8 [facility] Comment on above: Performed By: #### E SR, CRP, CBC, CREAT #### [address] #### BILL #### [facility] , Lymphocytes/100 WBC (Bld) 15.0 % Normal . [facility] Comment on above: Performed By: #### E SR, CRP, CBC, CREAT #### [place] [address] [place] #### BILL #### [facility] , MCH (RBC) [Entitic mass] 24.8 pg Normal 24.7-34.3 [facility] Comment on above: Performed By: #### E SR, CRP, CBC, CREAT #### [place] [address] [place] #### BILL #### [facility] , MCV (RBC) [Entitic vol] 80.1 fL Normal 80-100 [facility] Comment on above: Performed By: #### E SR, CRP, CBC, CREAT #### [address] #### BILL #### [facility] , Mean Corpuscular HGB Conc 31.0 g/dL Low 32.0-35.0 [facility] Comment on above: Performed By: #### E SR, CRP, CBC, CREAT #### [address] #### BILL #### [facility] , Monocytes (Bld) [#/Vol] 0.5 10*3/uL Normal 0.0-0.8 [facility] Comment on above: Performed By: #### E SR, CRP, CBC, CREAT #### [address] #### BILL #### [facility] , Monocytes/100 WBC (Bld) 4.6 % Normal . [facility] Comment on above: Performed By: #### E SR, CRP, CBC, CREAT #### [address] #### BILL #### [facility] , Neutrophils (Bld) [#/Vol] 9.1 10*3/uL High 1.8-7.7 [facility] Comment on above: Performed By: #### E SR, CRP, CBC, CREAT #### [place] [address] [place] #### BILL #### [facility] , Neutrophils/100 WBC (Bld) 79.2 % Normal . [facility] Comment on above: Performed By: #### E SR, CRP, CBC, CREAT #### [place] [address] [place] #### BILL #### [facility] , Nucleated RBC/100 WBC (Bld) [Ratio] 0.1 % Normal 0-0.5 [facility] Comment on above: Performed By: #### E SR, CRP, CBC, CREAT #### [address] #### BILL #### [facility] , Platelet mean volume (Bld) [Entitic vol] 8.3 fL Normal 6.3-10.7 [facility] Comment on above: Performed By: #### E SR, CRP, CBC, CREAT #### [facility] [address] [place] [address] #### BILL #### [facility] , Platelets (Bld) [#/Vol] 336 10*3/uL Normal 150-450 [facility] Comment on above: Performed By: #### E SR, CRP, CBC, CREAT #### [address] #### BILL #### [facility] , RBC (Bld) [#/Vol] 3.94 10*6/uL Normal 3.60-5.00 [facility] Comment on above: Performed By: #### E SR, CRP, CBC, CREAT #### [address] #### BILL #### [facility] , WBC (Bld) [#/Vol] 11.5 10*3/uL High 4.5-11.0 [facility] Comment on above: Performed By: #### E SR, CRP, CBC, CREAT #### [facility] [address] [place] [address] [place] #### BILL #### [facility] , Creatinineon 04-23-2021 Creatinine [Mass/Vol] 0.75 mg/dL Normal 0.44-1.03 [facility] Comment on above: Performed By: #### E SR, CRP, CBC, CREAT #### [place] [address] [place] #### BILL #### [facility] , Estimated GFR ( Ni > 60 Normal [facility] Comment on above: Result Comment: GFR estimated reference range: According to KDOQI guidelines, <60 ml/min/1.73m2 is sufficient to diagnose a patient with chronic kidney disease. Performed By: #### E SR, CRP, CBC, CREAT #### [place] [address] [place] #### BILL #### [facility] , Estimated GFR (Non- Am > 60 Normal [facility] Comment on above: Performed By: #### E SR, CRP, CBC, CREAT #### [address] #### BILL #### [facility] , Dipstick and Microscopicon 1 Appearance (U) Clear Normal Clear [facility] Comment on above: Order Comment: Name Collection Type:: Clean-Voided Midstream Performed By: #### A DDONUAPLUS #### [address] #### CH50, C3, C4 #### [facility] , Bacteria,Urine None Seen Normal None Seen [facility] Comment on above: Order Comment: Name Collection Type:: Clean-Voided Midstream Performed By: #### A DDONUAPLUS #### [place] [address] [place] #### CH50, C3, C4 #### [facility] , Bilirubin,Urine Negative Normal Negative [facility] Comment on above: Order Comment: Name Collection Type:: Clean-Voided Midstream Performed By: #### A DDONUAPLUS #### [place] [address] [place] #### CH50, C3, C4 #### [facility] , Color (U) Yellow Normal Yellow [facility] Comment on above: Order Comment: Name Collection Type:: Clean-Voided Midstream Performed By: #### A DDONUAPLUS #### [address] #### CH50, C3, C4 #### [facility] , Glucose Ql (U) 100 mg/dL High Normal [facility] Comment on above: Order Comment: Name Collection Type:: Clean-Voided Midstream Performed By: #### A DDONUAPLUS #### [address] #### CH50, C3, C4 #### [facility] , Hyaline Casts,Urine 0-8 Normal 0-8 [facility] Comment on above: Order Comment: Name Collection Type:: Clean-Voided Midstream Result Comment: PERF ORMED BY: [place] [address] PATHOLOGIST ELECTRICAL AND ELECTRONIC ASSEMBLER MARIBEL AGUILLON M.D. Performed By: #### A DDONUAPLUS #### [address] #### CH50, C3, C4 #### [facility] , Ketones Ql (U) Negative Normal Negative [facility] Comment on above: Order Comment: Name Collection Type:: Clean-Voided Midstream Performed By: #### A DDONUAPLUS #### [address] #### CH50, C3, C4 #### [facility] , Leukocyte esterase Test strip Ql (U) Negative Normal Negative [facility] Comment on above: Order Comment: Name Collection Type:: Clean-Voided Midstream Performed By: #### A DDONUAPLUS #### [address] #### CH50, C3, C4 #### [facility] , Nitrite,Urine Negative Normal Negative [facility] Comment on above: Order Comment: Name Collection Type:: Clean-Voided Midstream Performed By: #### A DDONUAPLUS #### [address] #### CH50, C3, C4 #### [facility] , Occult Blood,Urine Negative Normal Negative [facility] Comment on above: Order Comment: Name Collection Type:: Clean-Voided Midstream Performed By: #### A DDONUAPLUS #### [address] #### CH50, C3, C4 #### [facility] , pH (U) 5.0 [pH] Normal 5.0-9.0 [facility] Comment on above: Order Comment: Name Collection Type:: Clean-Voided Midstream Performed By: #### A DDONUAPLUS #### [address] #### CH50, C3, C4 #### [facility] , Protein,Urine Negative Normal Negative [facility] Comment on above: Order Comment: Name Collection Type:: Clean-Voided Midstream Performed By: #### A DDONUAPLUS #### [address] #### CH50, C3, C4 #### [facility] , RBC,Urine None Seen Normal 0-4 [facility] Comment on above: Order Comment: Name Collection Type:: Clean-Voided Midstream Performed By: #### A DDONUAPLUS #### [facility] [address] [place] [address] #### CH50, C3, C4 #### [facility] , Specificy [place],Urine 1.009 Normal 1.001-1.030 [facility] Comment on above: Order Comment: Name Collection Type:: Clean-Voided Midstream Performed By: #### A DDONUAPLUS #### [address] #### CH50, C3, C4 #### [facility] , Squamous Epithelial Cell,Urine 0-1 Normal 0-2 [facility] Comment on above: Order Comment: Name Collection Type:: Clean-Voided Midstream Performed By: #### A DDONUAPLUS #### [address] #### CH50, C3, C4 #### [facility] , Urobilinogen,Urine Normal Normal Normal [facility] Comment on above: Order Comment: Name Collection Type:: Clean-Voided Midstream Performed By: #### A DDONUAPLUS #### [address] #### CH50, C3, C4 #### [facility] , WBC LM.HPF (Urine sed) [#/Area] 0 /[HPF] Normal 0-4 [facility] Comment on above: Order Comment: Name Collection Type:: Clean-Voided Midstream Performed By: #### A DDONUAPLUS #### [address] #### CH50, C3, C4 #### [facility] , Erythrocyte Sedimentation Ra ryley 04-23-2021 ESR (Bld) [Velocity] 55 mm/h High 0-29 [facility] Comment on above: Result Comment: PERF ORMED BY: [place] [address] PATHOLOGIST ELECTRICAL AND ELECTRONIC ASSEMBLER MARIBEL AGUILLON M.D. Performed By: #### E SR, CRP, CBC, CREAT #### [address] #### BILL #### [facility] , BASIC METABOLIC PANELon 09-2 Calcium [Mass/Vol] 8.7 mg/dL Normal 8.6-10.3 [facility] Comment on above: Order Comment: No: D o not add to previous draw Performed By: #### 5 7307, 98628 #### [facility] [address] [place] [address], [place] Chloride [Moles/Vol] 97 mmol/L Low 98-107 [facility] Comment on above: Order Comment: No: D o not add to previous draw Performed By: #### 5 7307, 46008 #### [facility] [address] [place] [address], [place] CO2 [Moles/Vol] 36 mmol/L High 21-31 [facility] Comment on above: Order Comment: No: D o not add to previous draw Performed By: #### 5 73, 97430 #### [facility] [address] [place] [address], [place] Creatinine [Mass/Vol] 0.74 mg/dL Normal 0.60-1.20 [facility] Comment on above: Order Comment: No: D o not add to previous draw Performed By: #### 5 7307, 86226 #### [facility] [address] [place] [address], [place] GFR/1.73 sq M.predicted among blacks MDRD (S/P/Bld) [Vol rate/Area] mL/min/{1.73_m2} Normal >60 [facility] Comment on above: Order Comment: No: D o not add to previous draw Performed By: #### 5 7307, 03329 #### [facility] [address] [place] [address], [place] GFR/1.73 sq M.predicted among non-blacks MDRD (S/P/Bld) [Vol rate/Area] mL/min/{1.73_m2} Normal >60 [facility] Comment on above: Order Comment: No: D o not add to previous draw Performed By: #### 5 7307, 30661 #### [facility] [address] [place] [address], [place] Glucose [Mass/Vol] 123 mg/dL High 70-100 [facility] Comment on above: Order Comment: No: D o not add to previous draw Performed By: #### 5 73, 76418 #### [facility] [address] [place] [address], [place] Potassium [Moles/Vol] 4.3 mmol/L Normal 3.5-5.1 [facility] Comment on above: Order Comment: No: D o not add to previous draw Performed By: #### 5 7306, 30182 #### [facility] [address] [place] [address], [place] Sodium [Moles/Vol] 139 mmol/L Normal 136-145 [facility] Comment on above: Order Comment: No: D o not add to previous draw Performed By: #### 5 73, 35151 #### [facility] [address] [place] [address], [facility] Urea nitrogen [Mass/Vol] 24 mg/dL Normal 7-25 [facility] Comment on above: Order Comment: No: D o not add to previous draw Performed By: #### 5 73, 89153 #### [facility] [address] [place] [address], [facility] CBC COMPLETE BLOOD COUNTon 0 04-11-2021 Erythrocyte distribution width (RBC) [Ratio] 16.8 % High 11.5-15.0 [facility] Comment on above: Order Comment: No: D o not add to previous draw Performed By: #### 5 7307, 14499 #### [facility] [address] [place] [address], [place] Hematocrit (Bld) [Volume fraction] 29.7 % Low 36.0-45.0 [facility] Comment on above: Order Comment: No: D o not add to previous draw Performed By: #### 5 73, 61220 #### [facility] [address] [place] [id number], [facility] Hemoglobin (Bld) [Mass/Vol] 8.9 g/dL Low 12.0-15.0 [facility] Comment on above: Order Comment: No: D o not add to previous draw Performed By: #### 5 73, 71012 #### [facility] [address] [place] [address], [facility] MCH (RBC) [Entitic mass] 25.4 pg Low 27.0-33.0 [facility] Comment on above: Order Comment: No: D o not add to previous draw Performed By: #### 5 73, 96119 #### [facility] [address] [place] [id number], [facility] MCHC (RBC) [Mass/Vol] 30.0 g/dL Low 32.0-35.0 [facility] Comment on above: Order Comment: No: D o not add to previous draw Performed By: #### 5 73, 61634 #### [facility] [address] [place] [address], [facility] MCV (RBC) [Entitic vol] 84.9 fL Normal 82.0-98.0 [facility] Comment on above: Order Comment: No: D o not add to previous draw Performed By: #### 5 73, 50572 #### [facility] [address] [place] [address], [facility] Nucleated RBC/100 WBC (Bld) [Ratio] 0 % Normal 0-0 [facility] Comment on above: Order Comment: No: D o not add to previous draw Performed By: #### 5 7307, 44872 #### [facility] [address] [place] [id number], [facility] PLAT CNT 446 10*3/uL High 150-400 [facility] Comment on above: Order Comment: No: D o not add to previous draw Performed By: #### 5 7307, 50148 #### [facility] [address] [facility]. [address] RBC (Bld) [#/Vol] 3.50 10*6/uL Low 3.80-5.00 [facility] Comment on above: Order Comment: No: D o not add to previous draw Performed By: #### 5 7307, 90361 #### [facility] [address] [facility]. [address] WBC (Bld) [#/Vol] 16.54 10*3/uL High 4.00-10.[address] [facility] Comment on above: Order Comment: No: D o not add to previous draw Performed By: #### 5 7307, 87017 #### [facility] [address] Cardiovascular Lab Reporton 04-11-2021 Cardiovascular Lab Report [facility] Patient Name: Antonio [facility] S MR #: [id number] Department of Physician: London Rodas M.D. Division of Service Date: 04/11/2021 Cardiology Birthdate: 1970 Adult Cardiovascular Room #: 5AB [id number] [place] [address] Cardiovascular Laboratory Report PROCEDURE PERFORMED: Transesophageal echocardiogram and cardioversion. INDICATION: Atrial flutter. FELLOW: Dunia Sierra MD PROCEDURE IN DETAIL: Informed consent was obtained from the patient after explaining the indication, risks, benefits, as well as alternatives. The patient understood and agreed, and signed the consent form. The patient was brought to the lab courier and transesophageal echocardiogram was performed, under conscious [...] Sierra MD Date Trans: 04/11/2021 12:53 P/marixa [id number] cc: Phillip Ann M.D. [address], [facility] [address] Normal [facility] MAGNESIUM BLOODon 04-11-2021 Magnesium [Mass/Vol] 2.3 mg/dL Normal 1.9-2.7 [facility] Comment on above: Order Comment: No: D o not add to previous draw Performed By: #### 5 7307, 41850 #### [facility] [address] [facility] [place] [address], [facility] POC GLUCOSE LABon 04-11-2021 Glucose [Mass/Vol] 124 mg/dL High 70-100 [facility] Comment on above: Performed By: #### 5 7307, 87440 #### [facility] [address] [facility] [place] [address], [facility] TROPONIN-Ion 04-11-2021 Troponin I.cardiac [Mass/Vol] 0.06 ng/mL High 0.00-0.04 [facility] Comment on above: Order Comment: No: D o not add to previous draw Result Comment: REFE RENCE RANGES: 0.00 - 0.04 ng/ml NORMAL 0.05 - 0.50 ng/ml INDETERMINATE > 0.50 ng/ml CONSISTENT WITH AN M.I. Performed By: #### 5 7307, 88231 #### [facility] [address] *BLOOD CULTUREon 04-10-2021 *BLOOD CULTURE Clinical Report: (D) Specimen: BLOOD CULTURE Collected: 04/10/2021 09:50 Status: Final Last Updated: 04/15/2021 11:28 (1) Right hand CULT RES (Final) No Growth Day 5 Normal [facility] Comment on above: Order Comment: No: D o not add to previous draw Performed By: #### 5 7307, 33942 #### [facility] [address] *BLOOD CULTURE Clinical Report: (D) Specimen: BLOOD CULTURE Collected: 04/10/2021 09:50 Status: Final Last Updated: 04/15/2021 11:28 (1) Left hand CULT RES (Final) No Growth Day 5 Normal [facility] Comment on above: Order Comment: No: D o not add to previous draw Performed By: #### 5 7307, 58495 #### [facility] [address] *SARS-CoV-2 COVID-19on 04-10 SARS-CoV-2 (COVID-19) RNA DEIRDRE+probe Ql (Unsp spec) Not detected Normal Not Detected [facility] Comment on above: Order Comment: No: D o not add to previous draw Performed By: #### 5 7307, 32619 #### [facility] [address] APTTon 04-10-2021 aPTT Coag (Bld) [Time] 23.4 s Low 25.0-35.0 [facility] Comment on above: Order Comment: No: [...] THIS PURPOSE. Performed By: #### 5 7307, 26450 #### [facility] [address] aPTT Coag (Bld) [Time] 23.2 s Low 25.0-35.[address] [facility] Comment on above: Order Comment: No: [...] THIS PURPOSE. Performed By: #### 5 7307, 79132 #### [facility] [address] [facility] [address] BASIC METABOLIC PANELon 09-2 Calcium [Mass/Vol] 8.6 mg/dL Normal 8.6-10.3 [facility] Comment on above: Order Comment: No: D o not add to previous draw Performed By: #### 1 0, 21506, 04796 #### [facility] [address] [place] [address], [facility] Chloride [Moles/Vol] 99 mmol/L Normal 98-[address] [facility] Comment on above: Order Comment: No: D o not add to previous draw Performed By: #### 1 0, 10673, 57529 #### [facility] [address] [place] [id number], [place] CO2 [Moles/Vol] 32 mmol/L High 21-31 [facility] Comment on above: Order Comment: No: D o not add to previous draw Performed By: #### 1 0, 53966, 95753 #### [facility] [address] [place] [id number], [facility] Creatinine [Mass/Vol] 0.84 mg/dL Normal 0.60-1.20 [facility] Comment on above: Order Comment: No: D o not add to previous draw Performed By: #### 1 0, 74197, 14335 #### [facility] [address] [place] [address], [place] GFR/1.73 sq M.predicted among blacks MDRD (S/P/Bld) [Vol rate/Area] mL/min/{1.73_m2} Normal >60 [facility] Comment on above: Order Comment: No: D o not add to previous draw Performed By: #### 1 0, 12583, 54684 #### [facility] [address] [place] [address], [place] GFR/1.73 sq M.predicted among non-blacks MDRD (S/P/Bld) [Vol rate/Area] mL/min/{1.73_m2} Normal >60 [facility] Comment on above: Order Comment: No: D o not add to previous draw Performed By: #### 1 0, 14088, 10926 #### [facility] [address] [place] [address], [place] Glucose [Mass/Vol] 117 mg/dL High 70-100 [facility] Comment on above: Order Comment: No: D o not add to previous draw Performed By: #### 1 0, 91120, 58627 #### [facility] [address] [place] [address], [place] Potassium [Moles/Vol] 3.9 mmol/L Normal 3.5-5.1 [facility] Comment on above: Order Comment: No: D o not add to previous draw Performed By: #### 1 0, 54821, 28846 #### [facility] [address] [place] [address], [place] Sodium [Moles/Vol] 139 mmol/L Normal 136-145 [facility] Comment on above: Order Comment: No: D o not add to previous draw Performed By: #### 1 0070, 88359, 85082 #### [facility] [address] [facility] [place] [address], [facility] Urea nitrogen [Mass/Vol] 19 mg/dL Normal 7-25 [facility] Comment on above: Order Comment: No: D o not add to previous draw Performed By: #### 1 0070, 49325, 88636 #### [facility] [address] BNP (B-TYPE NATRIURETIC PEPT MARILYN)on 04-10-2021 Natriuretic peptide B (Bld) [Mass/Vol] 259 pg/mL High 0-100 [facility] Comment on above: Order Comment: No: D o not add to previous draw Result Comment: Give n the appropriate clinical setting a BNP result of >100 pg/mL indicates congestive heart failure. Performed By: #### 5 7307, 25830 #### [facility] [address] [place] [address], [facility] CBC W/DIFFon 04-10-2021 ABS IMM GRANS 1.1 10*3/uL High 0.0-0.2 [facility] Comment on above: Performed By: #### 5 0103 #### [facility] [address] [place] [address], [facility] ABS NEUTROPHILS 9.6 10*3/uL High 1.6-7.6 [facility] Comment on above: Performed By: #### 5 0103 #### [facility] [address] [facility] [place] [address], [facility] ANISO MODERATE Normal [facility] Comment on above: Performed By: #### 5 0103 #### [facility] [address] [facility] [place] [address], [facility] Basophils (Bld) [#/Vol] 0.1 10*3/uL Normal 0.0-0.2 [facility] Comment on above: Performed By: #### 5 0103 #### [facility] [address] [place] [address], [facility] Basophils/100 WBC (Bld) 0.7 % Normal 0.0-1.0 [facility] Comment on above: Performed By: #### 5 0103 #### [facility] [address] [place] [address], [facility] Eosinophils (Bld) [#/Vol] 0.1 10*3/uL Normal 0.0-0.5 [facility] Comment on above: Performed By: #### 5 0103 #### [facility] [address] [place] [address], [facility] Eosinophils/100 WBC (Bld) 0.4 % Normal 0.0-6.0 [facility] Comment on above: Performed By: #### 5 0103 #### [facility] [address] Erythrocyte distribution width (RBC) [Ratio] 16.5 % High 11.5-15.0 [facility] Comment on above: Performed By: #### 5 0103 #### [facility] [address] [place] [address], [facility] Hematocrit (Bld) [Volume fraction] 31.2 % Low 36.0-45.0 [facility] Comment on above: Performed By: #### 5 0103 #### [facility] [address] [place] [address], [facility] Hemoglobin (Bld) [Mass/Vol] 9.0 g/dL Low 12.0-15.0 [facility] Comment on above: Performed By: #### 5 3 #### [facility] [address] [place] [address], [facility] HYPO SLIGHT Normal [facility] Comment on above: Performed By: #### 5 3 #### [facility] [address] [place] [address], [facility] IMMATURE GRANS 6.8 % High 0.0-1.0 [facility] Comment on above: Performed By: #### 5 0103 #### [facility] [address] [address], [facility] Lymphocytes (Bld) [#/Vol] 4.4 10*3/uL High 1.2-4.0 [facility] Comment on above: Performed By: #### 5 0103 #### [facility] [address] [place] [address], [facility] Lymphocytes/100 WBC (Bld) 26.4 % Normal 20.0-45.0 [facility] Comment on above: Performed By: #### 5 3 #### [facility] [address] [place] [address], [facility] MCH (RBC) [Entitic mass] 25.3 pg Low 27.0-33.0 [facility] Comment on above: Performed By: #### 5 0103 #### [facility] [address] [place] [address], [facility] MCHC (RBC) [Mass/Vol] 28.8 g/dL Low 32.0-35.0 [facility] Comment on above: Performed By: #### 5 3 #### [facility] [address] [place] [address], [facility] MCV (RBC) [Entitic vol] 87.6 fL Normal 82.0-98.0 [facility] Comment on above: Performed By: #### 5 0103 #### [facility] [address] [place] [address], [facility] Monocytes (Bld) [#/Vol] 1.3 10*3/uL High 0.1-1.0 [facility] Comment on above: Performed By: #### 5 3 #### [facility] [address] [place] [address], [place] MONOS 7.6 % Normal 5.0-12.0 [facility] Comment on above: Performed By: #### 5 0103 #### [facility] [address] [place] [address], [place] Neutrophils/100 WBC (Bld) 58.1 % Normal 40.0-72.0 [facility] Comment on above: Performed By: #### 5 0103 #### [facility] [address] [place] [address], [facility] Nucleated RBC/100 WBC (Bld) [Ratio] 1 % High 0-0 [facility] Comment on above: Performed By: #### 5 0103 #### [facility] [address] [place] [address], [place] PLAT CNT 483 10*3/uL High 150-400 [facility] Comment on above: Performed By: #### 5 0103 #### [facility] [address] [place] [address], [facility] POIK SLIGHT Normal [facility] Comment on above: Performed By: #### 5 0103 #### [facility] [address] [place] [address], [place] POLY SLIGHT Normal [facility] Comment on above: Performed By: #### 5 0103 #### [facility] [address] [place] [address], [place] RBC (Bld) [#/Vol] 3.56 10*6/uL Low 3.80-5.00 [facility] Comment on above: Performed By: #### 5 0103 #### [facility] [address] [place] [address], [place] WBC (Bld) [#/Vol] 16.54 10*3/uL High 4.00-10.60 [facility] Comment on above: Performed By: #### 5 0103 #### [facility] [address] [place] [address], [facility] LIPID PROFILEon 04-10-2021 Cholesterol [Mass/Vol] 161 mg/dL Normal 120-200 [facility] Comment on above: Result Comment: CHOL ESTEROL REFERENCE RANGE: 20 YEARS AND OLDER CARDIOVASCULAR RISK Less than 200 mg/dl Low Risk 200 to 239 mg/dl Borderline Risk 240 mg/dl and greater High Risk Performed By: #### 3 1569, 18427, 96031 #### [facility] [address] [place] [address], [facility] Cholesterol in HDL [Mass/Vol] 61 mg/dL Normal 23-[address] [facility] Comment on above: Result Comment: Slig ht variation in normal range could be due to gender and/or age. HDL CHOLESTEROL REFERENCE RANGE: 20 years and older Cardiovascular Risk > or =60 mg/dL Desirable 40 TO 59 mg/dL Low Risk <40 mg/dL High Risk Performed By: #### 3 1569, 99758, 21375 #### [facility] [address] [place] [address], [facility] Cholesterol in LDL [Mass/Vol] 28 mg/dL Normal 0-130 [facility] Comment on above: Result Comment: LDL IS A CALCULATION LDL IS ONLY VALID IF THE TRIG IS LESS THAN 400. Performed By: #### 3 1569, 38088, 25086 #### [facility] [address] [place] [address], [facility] Cholesterol.total/Ch olesterol in HDL [Mass ratio] 2.6 {ratio} Normal .0-4.5 [facility] Comment on above: Performed By: #### 3 1569, 09086, 98529 #### [facility] [address] [place] [address], [place] NON-HDL CHOLESTEROL 100 mg/dL Normal [facility] Comment on above: Performed By: #### 3 1569, 17793, 72667 #### [facility] [address] [place] [address], [facility] Triglyceride [Mass/Vol] 362 mg/dL High 40-149 [facility] Comment on above: Result Comment: TRIG LYCERIDE REFERENCE RANGE: 20 YEARS AND OLDER CARDIOVASCULAR RISK LESS THAN 150 mg/dl LOW RISK 150 TO 199 mg/dl BORDERLINE RISK 200 mg/dl AND GREATER HIGH RISK Performed By: #### 3 1569, 43985, 67308 #### [facility] [address] [place] [address], [facility] VLDL CHOL 72 mg/dL High 0-40 [facility] Comment on above: Performed By: #### 3 1569, 26254, 85165 #### [facility] [address] [place] [address], [facility] MAGNESIUM BLOODon 04-10-2021 Magnesium [Mass/Vol] 2.4 mg/dL Normal 1.9-2.7 [facility] Comment on above: Order Comment: No: D o not add to previous draw Performed By: #### 1 0070, 44304, 18593 #### [facility] [address] [place] [address], [facility] POC GLUCOSE LABon 04-10-2021 Glucose [Mass/Vol] 350 mg/dL High 70-100 [facility] Comment on above: Performed By: #### 5 7307, 48491 #### [facility] [address] [place] [id number], [facility] Glucose [Mass/Vol] 249 mg/dL High 70-100 [facility] Comment on above: Performed By: #### 5 7307, 97393 #### [facility] [address] [place] [address], [facility] PROCALCITONINon 04-10-2021 PROCALCITONIN 0.09 ng/mL Normal 0.00-0.10 [facility] Comment on above: Order Comment: No: [...] initial PCT<0.5ng/mL Performed By: #### 5 7307, 50519 #### [address] PROTHROMBIN TIMEon 1 INR Coag (PPP) [Relative time] 1.07 {INR} Normal 0.91-1.16 [facility] Comment on above: Order Comment: No: [...] CHEST 1995;108:[id number]. Performed By: #### 5 7307, 58421 #### [facility] [address] [place] [address], [facility] PT Coag (PPP) [Time] 13.9 s Normal 12.3-14.[address] [facility] Comment on above: Order Comment: No: D o not add to previous draw Result Comment: ALL RESULTS MUST BE INTERPRETED WITH RESPECT TO BLOOD DRAWING ARTIFACT OR DILUTION ERROR OF ANTICOAGULANT AT THE TIME OF SAMPLING. Performed By: #### 5 7307, 43626 #### [facility] [address] [facility] [place] [address], [facility] TROPONIN-Ion 04-10-2021 Troponin I.cardiac [Mass/Vol] 0.07 ng/mL High 0.00-0.[address] [facility] Comment on above: Order Comment: No: D o not add to previous draw Result Comment: REFE RENCE RANGES: 0.00 - 0.04 ng/ml NORMAL 0.05 - 0.50 ng/ml INDETERMINATE > 0.50 ng/ml CONSISTENT WITH AN M.I. Performed By: #### 3 1569, 00629, 89456 #### [facility] [address] [facility] [place] [address], [facility] Troponin I.cardiac [Mass/Vol] 0.07 ng/mL High 0.00-0.[address] [facility] Comment on above: Order Comment: No: D o not add to previous draw Result Comment: REFE RENCE RANGES: 0.00 - 0.04 ng/ml NORMAL 0.05 - 0.50 ng/ml INDETERMINATE > 0.50 ng/ml CONSISTENT WITH AN M.I. Performed By: #### 1 0070, 37190, 39887 #### [facility] [address] [facility]. [address] TSH3 WITH REFLEX FT4on 04-10 TSH 3RD GENERATION 0.95 uIU/mL Normal 0.34-5.60 [facility] Comment on above: Order Comment: Yes: Add to Previous draw if able Performed By: #### 3 1569 #### [facility] [address] [facility] [place] [address], [facility] TSH 3RD GENERATION 3.12 uIU/mL Normal 0.34-5.60 [facility] Comment on above: Performed By: #### 3 1569, 17466, 29737 #### [facility] [address] [facility]. [address] UFH HEPARIN ASSAYon 04-10-20 UNFRACTIONATED HEPARIN >1.00 Critically high 0.30-0.70 [facility] Comment on above: Result Comment: Resu lt checked and called. Accurately read back by Haven Avila RN at 1122 per RN patient may have previously been given Eliquis. UFH = 1.36 for pharmacy use Rivaroxaban and Apixaban will interfere with the anti Xa assay used to monitor UFH and LMWH. Performed By: #### 5 7307, 50357 #### [facility] [address] Cardiovascular Lab Reporton 01-30-2021 Cardiovascular Lab Report [facility] Patient Name: Antonio [facility] S MR #: [id number] Department of Physician: London Ross M.D. Division of Service Date: 01/30/2021 Cardiology Birthdate: 1970 Adult Cardiovascular Room #: Services [facility] [address] [place] [address] Cardiovascular Laboratory Report FINAL IMPRESSIONS: 1. Moderately [...] 5. Follow up with Cardiology in the [facility] Cardiology office in the next 2 to [...] right internal jugular vein was obtained. A 6-Cymraes glide sheath was inserted without difficulty. A [...] Bear M.D. Date Trans: 01/30/2021 02:48 P/mmo [id number] cc: Phillip Ann M.D. [address], [place] [address] [facility] Vital Signs Date Time Vital Sign Value Performing Clinician Faci lity 09-15-2022 15:24-0500 Blood Pressure Location Juan Miguel SALINAS [facility] [place] 09-15-2022 15:24-0500 Diastolic blood pressure 78 mm[Hg] Juan Miguel SALINAS [facility] 09-15-2022 15:24-0500 Heart rate 70 /min Juan Miguel OSHEAL [facility] 09-15-2022 15:24-0500 Respiratory rate 16 /min Juan Miguel SALINAS [facility] 09-15-2022 15:24-0500 Systolic blood pressure 116 mm[Hg] Juan Miguel SALINAS [facility] Encounters Encounter Date Encounter Type Care Provider Facility Start: 04-04-2024 End: 04-04-2024 ambulatory [facility] Start: 01-11-2024 ambulatory [facility] Start: 12-28-2023 ambulatory [facility] Start: 10-26-2023 End: 10-26-2023 ambulatory JENNA [facility] Start: 05-05-2023 End: 05-05-2023 ambulatory STACY [facility] Start: 11-17-2022 End: 11-17-2022 ambulatory EMILY ZHONG . Facility:[facility] Start: 10-28-2022 End: 10-28-[address] PHILLIP ANN . Facility:[facility] Start: 09-24-2022 End: 09-24-[address] PHILLIP ANN . Facility:[facility] Start: 09-15-2022 End: 09-15-2022 Patient encounter procedure Juan Miguel Ortiz DAYOL [facility] M [facility] Start: 09-09-2022 End: 09-10-[address] [...] Evaluation and management of inpatient PHILLIP ANN Facility:[facility] Start: 01-30-2021 End: 01-31-2021 ambulatory CASSY BEAR Facility:[facility] Procedures Date Procedure Procedure Detail Performing Clinician Start: 04-11-2021 Uatsdin of Cardi ac Rhythm, Single SAMER Sony TORRES Start: 04-11-2021 ULTRASONOGRAPHY OF H EART WITH AORTA, TRANSESOPHAGEAL ABDELMONIEM MOUSTAFA section Juan Miguel NIL L section Juan Miguel NIL L Endoscopy of nose Juan Miguel MONTEZ Excision of cyst of breast Chiquis bates DAYOL History of radiofreq uency ablation operation for arrhythmia Juan Miguel SALINAS Implantation of inse rtable loop recorder Juan Miguel OSHEAL Ligation of fallopian tube Chiquis SALINAS Plan of Treatment Date Care Activity Detail Author Start: 12-02-2022 ambulatory Ambulatory Facility:[facility] Immunizations Immunization Date Immunization Notes Care Provider Fa javier 04-18-2022 influenza virus vaccine, unspecified formulation Juan Miguel DAYOL [facility] [place] 10-29-2020 SARS-CoV-2 (COVID-19 ) mRNA-1273 vaccine Juan Miguel NILL [facility] [place] 10-25-2020 SARS-CoV-2 (COVID-19 ) mRNA BNT-162b2 vax Juan Miguel OSHEAL [facility] Comment on above: Result Comment: 2022: [id number] 10-24-2020 SARS-CoV-2 (COVID-19 ) mRNA BNT-162b2 vax Juan Miguel OSHEAL [facility] 10-04-2020 SARS-CoV-2 (COVID-19 ) mRNA BNT-162b2 vax Juan Miguel NILL [facility] Comment on above: Result Comment: 2022: TPV50 10-03-2020 SARS-CoV-2 (COVID-19 ) mRNA BNT-162b2 vax Juan Miguel NILL [facility] Payers Date Payer Category Payer Unknown [id number] 1970 Unknown [id number] 2.16.8 [id number] 1970 Unknown [id number] 2.16.8 40.1.050404.3.579.2.647 1970 Unknown [id number] 2.16.84 0.1.879498.3.579.2.593 1970 Unknown [id number] 2.16.84 0.1.238940.3.579.2.593 1970 Unknown [id number] 2.16.84 0.1.344742.3.579.2.593 1968 Unknown [id number] 2.16.84 0.1.690363.3.579.2.593 1968 Unknown [id number] 2.16.84 0.1.446877.3.579.2.593 1968 Unknown [id number] 2.16.84 0.1.808494.3.579.2.593 1968 Unknown [id number] 2.16.84 0.1.968974.3.579.2.593 1968 Unknown [id number] 2.16.84 0.1.677779.3.579.2.593 1968 Unknown [id number] 2.16.84 0.1.833727.3.579.2.593 1968 Unknown [id number] 2.16.84 0.1.337513.3.579.2.593 1968 Unknown [id number] 2.16.84 0.1.198499.3.579.2.593 1968 Unknown [id number] 2.16.84 0.1.411177.3.579.2.593 1968 Unknown [id number] 2.16.84 0.1.984221.3.579.2.593 1968 Unknown [id number] 2.16.8 40.1.159846.3.579.2.727 1959 Unknown [id number] 1961 Unknown [id number] 1961 Unknown [id number] 1961 Unknown [id number] Social History Date Type Detail Facility Start: 09-15-2022 Tobacco smoking status Ex-smoker (fi nding) [facility] Tobacco smoking status Never [facility] [place] Sex Assigned At Female [facility] Medical Equipment Procedure Code Equipment Code Equipment Origin al Text Equipment Identifier Dates lancets, glucome ter, alcohol swabs, testing strips, insulin pen needles, Print Requisition, Supply Start: 08-25-2021 Functional Status Date Assessment Result Facility 09-15-2022 Functional Status N/A [facility] Clinical Note 04-04-2024 Note Date & Type Note Facility 04-04-2024 Note General Surgery Offi ce/Clinic Note Chief Complaint consultation for RUQ pain and positive occult stool HPI Staff 53 year old female presents on consultation from Dr. Ann for positive occult stool and RUQ pain. RUQ US completed 03/25 with cholelithiasis. Patient had previous EGD and colonoscopy planned for 10/14/22 for complaint of abdominal pain, bloating and nausea- was cancelled by patient due to illness. Reports 6 month history of constant abdominal pain. Reports pain across lower abdomen and epigastric area described as crampy. Verbalized pain waxes and wanes in intensity. Reports daily intermittent nausea, denies vomiting. Denies rectal pain or bleeding. Denies bowel changes or unexplained weight loss. Reports some bloating and belching. Denies heartburn. Last colonoscopy completed 09/2009-normal. Patient on Eliquis for a.fib. History of Present Illness 53 yo female with h/o PAF, on Eliquis, htn, DMII, hyperlipidemia; COPD, pulmonary htn, CKD, LILLIANA, IBS, referred for positive fecal occult blood and chronic abd pain; patient denies change in bms or blood in stools; primary bilateral lower abd pain, ache, occasionally crampy, no triggers, daily for past 6 months; no wt loss; some bloating and nausea, no emesis; no h/o jaundice or pancreatitis; no GERD or dysphagia, no h/o ulcer disease; was scheduled for EGD/colonoscopy in September, but patient cancelled due to illness; last colonoscopy 2009, wnl; abd operations significant for x 2 and tubal ligation; recent GB US with several small stones, no wall thickening or ductal dilation; no distension; former smoker; on Eliquis daily, no NSAID use. Review of Systems PHQ Score Initial Depression Screen Score: 0 SCORE ROS - Provider Constitutional: no fever, no [...] noncontributory. Physical Exam Vitals & Measurements HR: 72(Peripheral) RR: 16 BP: 122/76 HT: 62 in HT: 157 cm WT: 77.8 kg WT: 171.16 lb BMI: 31.56 HEENT: normal conjunctiva, sclera clear, no scleral icterus, EOM intact, PERRLA, oral mucosa moist without lesions. Neck: trachea midline, no mass, symmetric, no thyromegaly or nodules, no adenopathy Respiratory: lungs CTA, respirations non labored. Cardiovascular: regular rate and rhythm, no murmur, no pedal edema or varicosities. Gastrointestinal: obese, soft, non distended, no tenderness, no masses, no palpable hernias, diastasis recti no, no hepatosplenomegaly; normal bs Lymphatic: no cervical adenopathy, no supraclavicular adenopathy. Musculoskeletal: normal gait, digits and nails without infection, nodes, cyanosis, clubbing. Skin: no rashes, no lesions, no ulcers, no subcutaneous nodules, induration. Psychiatric/Neuro: oriented to time, place, person, judgement normal, affect appropriate for age, insight intact, no focal deficits. Tests: labs reviewed, x-rays reviewed, review of old records completed , Discussed surgical options, risks, and possible complications with patient. Assessment/Plan 1. Positive fecal occult blood test (R19.5: Other fecal abnormalities) plan EGD and colonoscopy under anesthesia for further evaluation, informed consent obtained. hold Eliquis 2 days prior to procedures. 2. Abdominal pain, generalized (R10.84: Generalized abdominal pain) see # 1 3. Abdominal bloating (R14.0: Abdominal distension (gaseous)) see # 1 4. Nausea in adult (R11.0: Nausea) see # 1 5. Cholelithiasis (K80.20: Calculus of gallbladder without cholecystitis without obstruction) symptoms not consistent with biliary colic; await endoscopy findings. Follow-up No qualifying data available Problem List/Past Medical History Ongoing Abdominal bloating Abdominal pain, generalized Atrial flutter BMI 31.0-31.9,adult Cervical disc disease Cholelithiasis Chronic diastolic heart failure Chronic obstructive pulmonary disease Cystic kidney disease Depression Diabetes Diverticulosis Ep (more content not included)... [facility] Comment on above: Result Comment: Elec tronically Signed By: BRAD DIAZ, Juan Miguel Lee.br\Date and Time Signed: 04/04/24 17:16 EDT Progress note 10-26-2023 Note Date & Type [...] All other systems reviewed and are negative. [facility] Progress note 10-26-2023 Note Date & Type Note Facility 10-26-2023 Note Cardiovascular Medic [facility] SUBJECTIVE Chief Complaint Patient [...] trended upwards is a since seen in [place] [facility] 04/28/2023 and was diagnosed with vertigo [...] (paroxysmal atrial fi (more content not included)... [facility] Progress note 05-05-2023 Note Date & Type Note Facility 05-05-2023 Note [place] [facility] Consul t Note Reason for visit: [...] trended upwards is a since seen in [place] [facility] 04/28/2023 and was diagnosed with vertigo [...] Take 1 table (more content not included)... [facility] Progress note 05-05-2023 Note Date & [...] All other systems reviewed and are negative. [facility] Clinical Note 11-17-2022 Note Date & [...] by: AUDREY BO Date: 2022-11-17 12:14 [facility] Discharge summary note 04-12-2021 Note Date & Type Note Facility 04-12-2021 Note MR#: [id number] I [facility] Pt. Name: Diana Alvarez Admitted: 04/10/2021 Discharged: 04/11/2021 Date of : 1970 Physician: Orlin Wick MD DISCHARGE SUMMARY PRIMARY DIAGNOSIS: New-onset atrial flutter with RVR. SECONDARY DIAGNOSES: 1. Pulmonary hypertension. 2. COPD. 3. Diabetes. HISTORY OF PRESENT ILLNESS: This patient is a 50-year-old female with past medical history of COPD, hypertension, and diabetes, who was sent from [facility] due to atrial flutter with RVR due to COPD exacerbation. The patient was initially treated with IV Cardizem, however, it was changed to p.o. prior to transfer. The patient was also given loading dose digoxin. The patient was transferred to [facility] for cardioversion. HOSPITAL COURSE: 1. New-onset [...] Wick MD Date Trans: 04/12/2021 03:25 P/marixa [id number] cc: Phillip Ann M.D. [address], [facility] [address] [facility] Evaluation + Plan note Note Date & Type Note Facility Evaluation + Plan note No data available for this section [facility] [place] [facility] Discharge instructions Note Date & Type Note Facility Hospital Discharge instructions No data available for this section [facility] [place] Progress note Note Date & Type Note Facility Progress note No data available for this section [facility] [place] Summary Purpose Family History No Family History Records FoundNo Family History Records FoundNo Family History Records FoundNo Family History Records FoundNo Family History Records Found Advance Directives No Advanced Directives Records FoundNo Advanced Directives Records FoundNo Advanced Directives Records FoundNo Advanced Directives Records FoundNo Advanced Directives Records Found Additional Source Comments INFORMATION SOURCE (unrecogn ized section and content) DATE CREATED AUTHOR 09/10/2021 [facility] DATE CREATED AUTHOR AUTHOR'S ORGANIZ ATION 12/24/2021 [facility] DATE CREATED AUTHOR AUTHOR'S ORGANIZ ATION 11/20/2022 [facility] DATE CREATED AUTHOR AUTHOR'S ORGANIZ ATION 02/02/2024 [facility] DATE CREATED AUTHOR AUTHOR'S ORGANIZ ATION 04/06/2024 [facility] Patient Care team informatio n (unrecognized section and content) Personnel Name: Phillip Ann MD Address: Address: [address] [place] [address] FOR RECORDS PERTAINING TO PATIENTS WHO ARE [...] BE BASED ON THE PRIMARY CLINICAL RECORDS. [facility] [employer] provides no warranty or guarantee of the accuracy or completeness of information in this document.
== END 2024-04-13 08:46 | disposition home or self-care (01) ==
LOC: PST 08:55
PROVIDERS: PCP Family Medicine; Visit Provider Surgery
DX: Z01.818 Encounter for other preprocedural examination (principal); R10.11 Right upper quadrant pain; R19.5 Other fecal abnormalities

== ENCOUNTER 2024-04-19 07:46 | Day surgery (SDC) | payer OTHER, SELFPAY ==
--- NOTE | 2024-04-19 | OP_ITS ---
OPERATION DATE: 04/19/2024 PREOPERATIVE DIAGNOSIS: Positive fecal occult blood test, as well as mid and epigastric abdominal pain. POSTOPERATIVE DIAGNOSIS: Small hiatal hernia, mild sigmoid diverticulosis with redundancy of the colon. PROCEDURE: EGD and colonoscopy to cecum. SURGEON: Juan Miguel Chavez M.D. ANESTHESIA: Monitored anesthesia care. ESTIMATED BLOOD LOSS: Zero. INDICATIONS AND CONSENT: Patient is a 53-year-old female with long history of abdominal complaints, multiple medical problems, epigastric and mid abdominal pain, as well as recent positive fecal occult blood test. Indications, risks, benefits, alternatives of proceeding with EGD and colonoscopy were explained extensively to the patient, including the risks of bleeding, aspiration, esophageal/gastric/duodenal or colonic perforation or anesthetic complications. All of her questions were answered. Informed consent was obtained. PROCEDURE: Patient brought to the operating room, placed in the left lateral decubitus position. Monitored anesthesia care was provided. Bite block was placed in the patient?s mouth. Scope was inserted into the oropharynx. Under direct visualization, it was advanced into the esophagus, past the cricopharyngeus, down to the stomach. The stomach was insufflated with air. The pylorus was traversed down to the descending portion of the duodenum. There was no evidence of duodenitis or ulceration. There was no scarring within the pyloric channel. Scope was pulled back into the stomach and retroflexed. There was a small, sliding type hiatal hernia. The GE junction was noted at approximately 39 cm. There was no distal esophagitis or Redman?s changes. Remainder of the esophagus was unremarkable. The scope was then withdrawn. Patient was then positioned for colonoscopy. Rectal exam was performed, which revealed no masses or blood. The scope was then inserted into the anal canal. Under direct visualization, it was advanced to the cecum where cecal markings were clearly identified. There was noted to be a good prep. Upon withdrawal of the scope, mucosal surfaces were carefully examined. There were no mass lesions or inflammatory changes. No polyps. There was mild sigmoid diverticulosis without inflammatory changes or scarring. There was some redundancy and spasm of the colon. The scope was retroflexed in the anal canal. There were noted to be some prominent rectal veins. No significant hemorrhoidal disease. The scope was then withdrawn. The patient tolerated procedure well, was sent to recovery room in good condition. Follow up screening colonoscopy should be in 10 years. CC: Xavi Ann M.D. LEEANN
--- OUTSIDE RECORDS SUMMARY | 2024-04-19 07:50 | XMS_ITS | CCD ---
Author Organization [facility] Care Team Providers Care Pullman Conductor Name Role Phone ADAM BEARAB A Admitting Unavailable CASSY BEAR Attending Unavailable PHILLIP ANN Referring Unavailable PHILLIP ANN Primary Care Unavailable PHILLIP ANN Referring Unavailable XIAO TORRES Surgeon Unavailable ALBERT HUI Attending Unavailable CALLI PAIGE Admitting Unavailable HI Procedure Practitioner Unavailab PHILLIP Muñoz Primary Care Unavailable HI Procedure Practitioner Unavailab Dunia Light Surgeon Unavailsindhu [...] ., EMILY Admitting Unavailable HOY ., DR FIHSER Primary Care Unavailable TREVIN ., EMILY Consulting [...] Unavailable WEST, DR VIVI Wyman Consulting Unavailable Juan Miguel CHAVEZ Attending Unavailable BESSIE MORRISSEY Referring Unavailable MANOJ, CURTIS Referring Unavailable SANTIAGOJENNA Attending Unavailable JENNA HENDERSON Attending Unavailable STACY VILLALTA Attending Unavailable MANOJ, CURTIS Referring Unavailable MANOJ, CURTIS Referring Unavailable MANOJ, CURTIS Referring Unavailable MANOJ, CURTIS Referring Unavailable MANOJ, CURTIS Referring Unavailable MANOJ, CURTIS Referring Unavailable MANOJ, CURTIS Referring Unavailable MANOJ, CURTIS Referring Unavailable MANOJ, CURTIS Referring Unavailable Allergies Allergy Classification Reported Allergen(s) Allergy Type Date of Onset Reaction(s) Facility (4 sources) Morphine; Translations: [morphine] Drug Allergy 9 [facility] Repository (1 source) 09369,00; Translations: [89885,00] Propensity to adverse reactions (disorder) 0 [facility] Repository (1 source) Morphine; Translations: [morphine] Drug Allergy Feeling nervous (finding), Tachycardia (finding) General [facility] [place] (1 source) No Known Medication Allergies; Translations: [No Known Medication Allergies] Propensity to adverse reactions (disorder) [facility] Repository (1 source) dulaglutide; Translations: [DULAGLUTIDE] Drug Allergy 3 [facility] Repository Medications Current Medications Medication Drug Class(es) Dates Sig (Normalized) Sig (Original) [id number] 200 actuat albuterol 0.09 mg/actuat metered dose [...] dysrhythmias (2 sources) Palpitations; Translations: [Palpitations] Onset: 04-17-2024 Episodic Chronic obstructive pulmonary disease and bronchiectasis (3 sources) Chronic obstructive lung disease; Translations: [Chronic obstructive pulmonary disease with (acute) lower respiratory infection] Onset: 11-19-2022 09-03-2022 Chronic Congestive heart failure; nonhypertensive (1 source) Chronic diastolic heart failure 09-03-2022 Chronic Coronary atherosclerosis and other heart disease (1 source) Atherosclerotic heart disease of [place] coronary artery without angina pectoris; Translations: [ASHD RED CL[place] CA W/O ANGINA PECTORIS] Onset: 08-11-2022 Chronic [...] Onset: 09-13-2022 Chronic Other aftercare (1 source) longterm (current) use of anticoagulants; Translations: [SENIOR CARE CURRNT USE ANTICOAGULANTS] Onset: 11-19-2022 Episodic Other aftercare (1 source) Other senior living (current) drug therapy; Translations: [OTH EARLY CHILDHOOD AIDE CLASSROOM CURRENT DRUG THERAPY] Onset: 11-19-2022 Episodic Other aftercare (1 source) longterm (current) use of oral hypoglycemic drugs; Translations: [EARLY CHILDHOOD AIDE CLASSROOM USE ORAL HYPOGLYCEMIC DX] Onset: 11-19-2022 Episodic [...] Value Interpretation Reference Range Facility Office Visiton 04-13-2024 Follow-up visit [id number] Diana Alvarez 1970 F Date Provider Department Center 04/13/2024 JENNA ABREU CARD [facility] Family History Problem Relation Age of Onset Breast cancer Mother Aneurysm Mother Stroke Mother Heart attack Father Coronary artery disease Father Family Status - Relation Status Age at Mother Father Level of Service:85244 HI OFFICE/OUTPATIENT ESTABLISHED MOD MDM 30 MIN Reason for Visit and Comments: Pre-op Exam [301875] Atrial Fibrillation [80] Hypertension [255914] Normal [facility] Ambulatory Visit Summaryon 0 04-04-2024 Ambulatory Visit Summary Ambulatory Visit Summary DIANA ALVAREZ :1970 Visit Date:04/04/2024 Ambulatory Visit Instructions Your Care Team Attending Physician - BRAD DIAZ, Juan Miguel Ortiz Primary Care Physician - Madelaine DIAZ, Phillip This Is Your Medications List [...] (Nervousness, Tachycardia) Problems (more content not included)... [facility] 3601-12-2024 36 BP is elevated. I encourage diet and routine exercise which can help her BP. In the mean time, would like to start her on lisinopril 5mg daily with follow-up BMP in 2 weeks. Thanks! [facility] 01-11-2024 36 Pt calling with bp's 156/83 133/78 147/80 146/78 157/72 148/80 120/80 [facility] 12-23-2023 36 Regarding echo performed on [...] few weeks with readings. She verbalized understanding. [facility] Telephoneon 12-23-2023 Telephone [id number] Diana Alvarez 1970 Date Provider Department Center 12/23/2023 MIGUEL ROMANO TISH [facility] Family History Problem Relation Age of Onset Breast cancer Mother Aneurysm Mother Stroke Mother Heart attack Father Coronary artery disease Father Family Status - Relation Status Age at Mother Father [facility] 3611-10-2023 36 Call reference # [id number]. - Approval # [id number] approved from 11/05/23 - 01/04/24. [facility] Office Visiton 10-26-2023 Follow-up visit [id number] Diana Alvarez 1970 F Date Provider Department Center 10/26/2023 JENNA ABREU CARD [facility] Family History Problem Relation Age of Onset Breast cancer Mother Aneurysm Mother Stroke Mother Heart attack Father Coronary artery disease Father Family Status - Relation Status Age at Mother Father Level of Service:13418 HI OFFICE/OUTPATIENT ESTABLISHED MOD MDM 30 MIN Reason for Visit and Comments: Atrial Flutter [101] Congestive Heart Failure [127] Normal [facility] Office Visiton 05-05-2023 Follow-up visit [id number] AntonioDiana Brodie 1970 F Date Provider Department Center 05/05/2023 STACY RODRIGUEZ [facility] Family History Problem Relation Age of Onset Breast cancer Mother Aneurysm Mother Stroke Mother Heart attack Father Coronary artery disease Father Family Status - Relation Status Age at Mother Father Level of Service:00139 [place] OFFICE/OUTPATIENT ESTABLISHED MOD MDM 30-39 MIN Normal [facility] CBC AUTO DIFFon 10-28-2022 BASO # 0.0 103/ul Normal 0.0-0.1 [facility] Comment on above: Performed By: #### L IPID, CMP, T4, TSH, FT3 #### [facility] [address] [place] [address] Dr. Mendel Herron Basophils/100 WBC (Bld) 0.2 % Normal 0.2-2.0 [facility] Comment on above: Performed By: #### L IPID, CMP, T4, TSH, FT3 #### [facility] [address] [address] [address] Mendel Herron EO # 0.0 103/ul Normal 0.0-0.7 [facility] Comment on above: Performed By: #### L IPID, CMP, T4, TSH, FT3 #### [facility] [address] [address] [address] Mendel Herron Eosinophils/100 WBC (Bld) 0.3 % Critically low 0.9-7.0 [facility] Comment on above: Performed By: #### L IPID, CMP, T4, TSH, FT3 #### [facility] [address] [address] [address] Mendel Herron Erythrocyte distribution width (RBC) [Ratio] 13.6 % Normal 11.0-15.0 [facility] Comment on above: Performed By: #### L IPID, CMP, T4, TSH, FT3 #### [facility] [address] [place] [address] Dr. Mendel Herron Hematocrit (Bld) [Volume fraction] 40.1 % Normal 36.0-48.0 [facility] Comment on above: Performed By: #### L IPID, CMP, T4, TSH, FT3 #### [facility] [address] [place] [address] Dr. Mendel Herron Hemoglobin (Bld) [Mass/Vol] 13.0 g/dL Normal 12.0-16.0 [facility] Comment on above: Performed By: #### L IPID, CMP, T4, TSH, FT3 #### [facility] [address] [place] [address] Dr. Mendel Herron IG # 0.06 10e3/ul Critically high 0.00-0.03 [facility] Comment on above: Performed By: #### L IPID, CMP, T4, TSH, FT3 #### [facility] [address] [place] [address] Dr. Mendel Herron IG % 0.5 % Normal 0.0-0.5 [facility] Comment on above: Performed By: #### L IPID, CMP, T4, TSH, FT3 #### [facility] [address] [place] [address] Dr. Mendel Herron LYMPH # 2.8 103/ul Normal 1.2-3.8 [facility] Comment on above: Performed By: #### L IPID, CMP, T4, TSH, FT3 #### [facility] [address] [place] [address] Dr. Mendel Herron Lymphocytes/100 WBC (Bld) 22.4 % Normal 20.5-60.0 [facility] Comment on above: Performed By: #### L IPID, CMP, T4, TSH, FT3 #### [facility] [address] [place] [address] Dr. Mendel Herron MANUAL DIFF REQ NO Normal [facility] Comment on above: Performed By: #### L IPID, CMP, T4, TSH, FT3 #### [facility] [address] [place] [address] Dr. Mendel Herron MCH (RBC) [Entitic mass] 30.8 pg Normal 26.7-34.0 [facility] Comment on above: Performed By: #### L IPID, CMP, T4, TSH, FT3 #### [facility] [address] [place] [address] Dr. Mendel Herron MCHC (RBC) [Mass/Vol] 32.4 g/dL Normal 29.9-35.2 [facility] Comment on above: Performed By: #### L IPID, CMP, T4, TSH, FT3 #### [facility] [address] [place] [address] Dr. Mendel Herron MCV (RBC) [Entitic vol] 95.0 fL Normal 81.0-99.0 [facility] Comment on above: Performed By: #### L IPID, CMP, T4, TSH, FT3 #### [facility] [address] [place] [address] Dr. Mendel Herron MONO # 0.9 103/ul Critically high 0.3-0.8 [facility] Comment on above: Performed By: #### L IPID, CMP, T4, TSH, FT3 #### [facility] [address] [place] [address] Dr. Mendel Herron Monocytes/100 WBC (Bld) 7.2 % Normal 1.7-12.0 [facility] Comment on above: Performed By: #### L IPID, CMP, T4, TSH, FT3 #### [facility] [address] [place] [address] Dr. Mendel Herron NEUT # 8.6 103/ul Critically high 1.4-6.5 [facility] Comment on above: Performed By: #### L IPID, CMP, T4, TSH, FT3 #### [facility] [address] [place] [address] Dr. Mendel Herron Neutrophils/100 WBC (Bld) 69.4 % Normal 43.0-75.0 [facility] Comment on above: Performed By: #### L IPID, CMP, T4, TSH, FT3 #### [facility] [address] [place] [address] Dr. Mendel Herron Platelet mean volume (Bld) [Entitic vol] 9.9 fL Normal 9.5-13.5 [facility] Comment on above: Performed By: #### L IPID, CMP, T4, TSH, FT3 #### [facility] [address] [address] [address] Mendel Herron PLT 297 103/ul Normal 150-450 [facility] Comment on above: Performed By: #### L IPID, CMP, T4, TSH, FT3 #### [facility] [address] [place] [address] Dr. Mendel Herron RBC 4.22 106/ul Normal 4.20-5.40 [facility] Comment on above: Performed By: #### L IPID, CMP, T4, TSH, FT3 #### [facility] [address] [place] [address] Dr. Mendel Herron WBC 12.4 103/ul Critically high 4.0-11.0 [facility] Comment on above: Performed By: #### L IPID, CMP, T4, TSH, FT3 #### [facility] [address] [place] [address] Dr. Mendel Herron CRPon 10-28-2022 CRP 1.3 mg/dL Critically high <=1.0 [facility] Comment on above: Performed By: #### L IPID, CMP, T4, TSH, FT3 #### [facility] [address] [place] [address] Dr. Mendel Herron PROF CHEM 8 (BAS METB)on Anion gap [Moles/Vol] 13.6 mmol/L Normal [facility] Comment on above: Performed By: #### L IPID, CMP, T4, TSH, FT3 #### [facility] [address] [address] [address] Mendel Herron Calcium [Mass/Vol] 9.3 mg/dL Normal 8.5-10.1 [facility] Comment on above: Performed By: #### L IPID, CMP, T4, TSH, FT3 #### [facility] [address] [address] [address] Mendel Herron Chloride [Moles/Vol] 102 mmol/L Normal 98-107 [facility] Comment on above: Performed By: #### L IPID, CMP, T4, TSH, FT3 #### [facility] [address] [address] [address] Mendel Herron CO2 [Moles/Vol] 30.7 mmol/L Normal 21.0-32.0 [facility] Comment on above: Performed By: #### L IPID, CMP, T4, TSH, FT3 #### [facility] [address] [place] [address] Dr. Mendel Herron Creatinine [Mass/Vol] 0.85 mg/dL Normal 0.55-1.02 [facility] Comment on above: Performed By: #### L IPID, CMP, T4, TSH, FT3 #### [facility] [address] [place] [address] Dr. Mendel Herron EGFR-AF [facility] >60 Normal >=60 [facility] Comment on above: Performed By: #### L IPID, CMP, T4, TSH, FT3 #### [facility] [address] [place] [address] Dr. Mendel Herron EGFR-NON AF [facility] >60 Normal >=60 [facility] Comment on above: Performed By: #### L IPID, CMP, T4, TSH, FT3 #### [facility] [address] [address] [address] Mendel Herron Glucose [Mass/Vol] 101 mg/dL Normal 74-106 [facility] Comment on above: Performed By: #### L IPID, CMP, T4, TSH, FT3 #### [facility] [address] [place] [address] Dr. Mendel Herron Potassium [Moles/Vol] 3.3 mmol/L Critically low 3.5-5.1 [facility] Comment on above: Performed By: #### L IPID, CMP, T4, TSH, FT3 #### [facility] [address] [address] [address] Mendel Herron Sodium [Moles/Vol] 143 mmol/L Normal 136-145 [facility] Comment on above: Performed By: #### L IPID, CMP, T4, TSH, FT3 #### [facility] [address] [address] [address] Mendel Herron Urea nitrogen [Mass/Vol] 12.0 mg/dL Normal 7.0-18.0 [facility] Comment on above: Performed By: #### L IPID, CMP, T4, TSH, FT3 #### [facility] [address] [place] [address] Dr. Mendel Herron Urea nitrogen/Creatinine [Mass ratio] 14.1 mg/mg Normal [facility] Comment on above: Performed By: #### L IPID, CMP, T4, TSH, FT3 #### [facility] [address] [address] [address] Mendel Herron URIC ACID SERUMon 10-28-2022 Urate [Mass/Vol] 7.8 mg/dL Critically high 2.6-6.0 [facility] Comment on above: Performed By: #### L IPID, CMP, T4, TSH, FT3 #### [facility] [address] [place] [address] Dr. Mendel Herron XR TOES RT MIN [...] ankle avulsion injury. Electronically authenticated by: GAIL DURHAMZ Date: 2022-10-28 20:53 Normal [facility] Covid-19 PCR (CVDTB)on SARS-CoV-2 (COVID-19) RNA DEIRDRE+probe Ql (Unsp spec) Not detected Normal NOT DETECTED [facility] Comment on above: Result Comment: When [...] for this test is supported by the [place] of Health and Human Service's declaration that [...] IPID, CMP, T4, TSH, FT3 #### [facility] [address] [place] [address] Dr. Mendel Herron CBC AUTO DIFFon 09-09-2022 BASO # 0.1 103/ul Normal 0.0-0.1 [facility] Comment on above: Performed By: #### L IPID, CMP, T4, TSH, FT3 #### [facility] [address] [place] [address] Dr. Mendel Herron Basophils/100 WBC (Bld) 0.7 % Normal 0.2-2.0 [facility] Comment on above: Performed By: #### L IPID, CMP, T4, TSH, FT3 #### [facility] [address] [place] [address] Dr. Mendel Herron EO # 0.1 103/ul Normal 0.0-0.7 [facility] Comment on above: Performed By: #### L IPID, CMP, T4, TSH, FT3 #### [facility] [address] [place] [address] Dr. Mendel Herron Eosinophils/100 WBC (Bld) 0.7 % Critically low 0.9-7.0 [facility] Comment on above: Performed By: #### L IPID, CMP, T4, TSH, FT3 #### [facility] [address] [place] [address] Dr. Mendel Herron Erythrocyte distribution width (RBC) [Ratio] 13.1 % Normal 11.0-15.0 [facility] Comment on above: Performed By: #### L IPID, CMP, T4, TSH, FT3 #### [facility] [address] [place] [address] Dr. Mendel Herron Hematocrit (Bld) [Volume fraction] 43.7 % Normal 36.0-48.0 [facility] Comment on above: Performed By: #### L IPID, CMP, T4, TSH, FT3 #### [facility] [address] [place] [address] Dr. Mendel Herron Hemoglobin (Bld) [Mass/Vol] 14.4 g/dL Normal 12.0-16.0 [facility] Comment on above: Performed By: #### L IPID, CMP, T4, TSH, FT3 #### [facility] [address] [place] [address] Dr. Mendel Herron IG # 0.11 10e3/ul Critically high 0.00-0.03 [facility] Comment on above: Performed By: #### L IPID, CMP, T4, TSH, FT3 #### [facility] [address] [place] [address] Dr. Mendel Herron IG % 1.3 % Critically high 0.0-0.5 [facility] Comment on above: Performed By: #### L IPID, CMP, T4, TSH, FT3 #### [facility] [address] [place] [address] Dr. Mendel Herron LYMPH # 2.4 103/ul Normal 1.2-3.8 [facility] Comment on above: Performed By: #### L IPID, CMP, T4, TSH, FT3 #### [facility] [address] [place] [address] Dr. Mendel Herron Lymphocytes/100 WBC (Bld) 27.9 % Normal 20.5-60.0 [facility] Comment on above: Performed By: #### L IPID, CMP, T4, TSH, FT3 #### [facility] [address] [place] [address] Dr. Mendel Herron MANUAL DIFF REQ NO Normal [facility] Comment on above: Performed By: #### L IPID, CMP, T4, TSH, FT3 #### [facility] [address] [place] [address] Dr. Mendel Herron MCH (RBC) [Entitic mass] 31.0 pg Normal 26.7-34.0 [facility] Comment on above: Performed By: #### L IPID, CMP, T4, TSH, FT3 #### [facility] [address] [place] [address] Dr. Mendel Herron MCHC (RBC) [Mass/Vol] 33.0 g/dL Normal 29.9-35.2 [facility] Comment on above: Performed By: #### L IPID, CMP, T4, TSH, FT3 #### [facility] [address] [place] [address] Dr. Mendel Herron MCV (RBC) [Entitic vol] 94.0 fL Normal 81.0-99.0 [facility] Comment on above: Performed By: #### L IPID, CMP, T4, TSH, FT3 #### [facility] [address] [place] [address] Dr. Mendel Herron MONO # 0.5 103/ul Normal 0.3-0.8 [facility] Comment on above: Performed By: #### L IPID, CMP, T4, TSH, FT3 #### [facility] [address] [place] [address] Dr. Mendel Herron Monocytes/100 WBC (Bld) 6.0 % Normal 1.7-12.0 [facility] Comment on above: Performed By: #### L IPID, CMP, T4, TSH, FT3 #### [facility] [address] [address] [address] Mendel Herron NEUT # 5.4 103/ul Normal 1.4-6.5 [facility] Comment on above: Performed By: #### L IPID, CMP, T4, TSH, FT3 #### [facility] [address] [address] [address] Mendel Herron Neutrophils/100 WBC (Bld) 63.4 % Normal 43.0-75.0 [facility] Comment on above: Performed By: #### L IPID, CMP, T4, TSH, FT3 #### [facility] [address] [place] [address] Dr. Mendel Herron Platelet mean volume (Bld) [Entitic vol] 9.8 fL Normal 9.5-13.5 [facility] Comment on above: Performed By: #### L IPID, CMP, T4, TSH, FT3 #### [facility] [address] [place] [address] Dr. Mendel Herron PLT 398 103/ul Normal 150-450 [facility] Comment on above: Performed By: #### L IPID, CMP, T4, TSH, FT3 #### [facility] [address] [place] [address] Dr. Mendel Herron RBC 4.65 106/ul Normal 4.20-5.40 [facility] Comment on above: Performed By: #### L IPID, CMP, T4, TSH, FT3 #### [facility] [address] [place] [address] Dr. Mendel Herron WBC 8.6 103/ul Normal 4.0-11.0 [facility] Comment on above: Performed By: #### L IPID, CMP, T4, TSH, FT3 #### [facility] [address] [place] [address] Dr. Mendel Herron FREE T3on 09-09-2022 FREE T3 2.59 pg/mlL Normal 2.18-3.98 [facility] Comment on above: Performed By: #### L IPID, CMP, T4, TSH, FT3 #### [facility] [address] [address] [address] Mendel Herron GLYCOHEMOGLOBIN A1Con 2022 ADA RECOMMENDATION SEE BELOW Normal [facility] Comment on above: Result Comment: ADA RECOMMENDED LIMIT 4.0 - 6.0 ADA THERAPEUTIC TARGET < 7.0 ACTION SUGGESTED > 7.0 Performed By: #### A 1C #### [facility] [address] [address] [address] Mendel Herron Glucose [Mass/Vol] 120 mg/dL Normal [facility] Comment on above: Performed By: #### A 1C #### [facility] [address] [place] [address] Dr. Mendel Herron HbA1c (Bld) [Mass fraction] 5.8 % Normal 4.5-6.2 [facility] Comment on above: Performed By: #### A 1C #### [facility] [address] [place] [address] Dr. Mendel Herron LIPID PROFILEon 09-09-2022 CHOL-HDL RATIO NORM SEE BELOW Normal [facility] Comment on above: Result Comment: 3.3 - 4.4 LOW RISK 4.4 - 7.1 AVERAGE RISK 7.1 - 11.0 MODERATE RISK >11.0 HIGH RISK Performed By: #### L IPID, CMP, T4, TSH, FT3 #### [facility] [address] [address] [address] Mendel Herron Cholesterol [Mass/Vol] 308 mg/dL Critically high <=200 [facility] Comment on above: Performed By: #### L IPID, CMP, T4, TSH, FT3 #### [facility] [address] [address] [address] Mendel Herron Cholesterol in HDL [Mass/Vol] 46 mg/dL Normal 40-60 [facility] Comment on above: Performed By: #### L IPID, CMP, T4, TSH, FT3 #### [facility] [address] [address] [address] Mendel Herron Cholesterol in LDL [Mass/Vol] 212.6 mg/dL Normal [facility] Comment on above: Performed By: #### L IPID, CMP, T4, TSH, FT3 #### [facility] [address] [place] [address] Dr. Mendel Herron Cholesterol.total/Ch olesterol in HDL [Mass ratio] 6.7 {ratio} Normal [facility] Comment on above: Performed By: #### L IPID, CMP, T4, TSH, FT3 #### [facility] Laboratory [address] [address] [address] Mendel Herron HDL NORMAL > or = 60 mg/dl - LOW CARDIOVASCULAR RISK <40 mg/dl - HIGH CARDIOVASCULAR RISK Normal [facility] Comment on above: Performed By: #### L IPID, CMP, T4, TSH, FT3 #### [facility] [address] [place] [address] Dr. Mendel Herron LDL CALC NORMAL SEE BELOW Normal [facility] Comment on above: Result Comment: <100 mg/dl OPTIMAL 100 - 129 mg/dl NEAR OR ABOVE OPTIMAL 130 - 159 mg/dl BORDERLINE HIGH 160 - 189 mg/dl HIGH >190 mg/dl VERY HIGH Performed By: #### L IPID, CMP, T4, TSH, FT3 #### [facility] [address] [place] [address] Dr. Mendel Herron Triglyceride [Mass/Vol] 247 mg/dL Critically high <=150 [facility] Comment on above: Performed By: #### L IPID, CMP, T4, TSH, FT3 #### [facility] [address] [place] [address] Dr. Mendel Herron VLDL CALC 49.4 mg/dL Normal [facility] Comment on above: Performed By: #### L IPID, CMP, T4, TSH, FT3 #### [facility] [address] [place] [address] Dr. Mendel Herron PROF 14(COMP METB)on 023 Albumin [Mass/Vol] 4.0 g/dL Normal 3.4-5.0 [facility] Comment on above: Performed By: #### L IPID, CMP, T4, TSH, FT3 #### [facility] [address] [place] [address] Dr. Mendel Herron Albumin/Globulin [Mass ratio] 0.9 {ratio} Normal [facility] Comment on above: Performed By: #### L IPID, CMP, T4, TSH, FT3 #### [facility] [address] [place] [address] Dr. Mendel Herron ALP [Catalytic activity/Vol] 115 U/L Normal 46-116 [facility] Comment on above: Performed By: #### L IPID, CMP, T4, TSH, FT3 #### [facility] [address] [place] [address] Dr. Mendel Herron ALT [Catalytic activity/Vol] 30 U/L Normal 14-59 [facility] Comment on above: Performed By: #### L IPID, CMP, T4, TSH, FT3 #### [facility] [address] [place] [address] Dr. Mendel Herron Anion gap [Moles/Vol] 12.7 mmol/L Normal [facility] Comment on above: Performed By: #### L IPID, CMP, T4, TSH, FT3 #### [facility] [address] [place] [address] Dr. Mendel Herron AST [Catalytic activity/Vol] 18 U/L Normal 15-37 [facility] Comment on above: Performed By: #### L IPID, CMP, T4, TSH, FT3 #### [facility] [address] [place] [address] Dr. Mendel Herron Bilirubin [Mass/Vol] 0.7 mg/dL Normal 0.2-1.0 [facility] Comment on above: Performed By: #### L IPID, CMP, T4, TSH, FT3 #### [facility] [address] [place] [address] Dr. Mendel Herron Calcium [Mass/Vol] 9.7 mg/dL Normal 8.5-10.1 [facility] Comment on above: Performed By: #### L IPID, CMP, T4, TSH, FT3 #### [facility] [address] [address] [address] Mendel Herron Chloride [Moles/Vol] 103 mmol/L Normal 98-107 [facility] Comment on above: Performed By: #### L IPID, CMP, T4, TSH, FT3 #### [facility] [address] [address] [address] Mendel Herron CO2 [Moles/Vol] 26.5 mmol/L Normal 21.0-32.0 [facility] Comment on above: Performed By: #### L IPID, CMP, T4, TSH, FT3 #### [facility] [address] [address] [address] Mendel Herron Creatinine [Mass/Vol] 0.83 mg/dL Normal 0.55-1.02 [facility] Comment on above: Performed By: #### L IPID, CMP, T4, TSH, FT3 #### [facility] [address] [place] [address] Dr. Mendel Herron EGFR-AF [facility] >60 Normal >=60 [facility] Comment on above: Performed By: #### L IPID, CMP, T4, TSH, FT3 #### [facility] [address] [address] [address] Mendel Herron EGFR-NON AF [facility] >60 Normal >=60 [facility] Comment on above: Performed By: #### L IPID, CMP, T4, TSH, FT3 #### [facility] [address] [address] [address] Mendel Herrno Globulin (S) [Mass/Vol] 4.4 g/dL Normal [facility] Comment on above: Performed By: #### L IPID, CMP, T4, TSH, FT3 #### [facility] [address] [address] [address] Mendel Herron Glucose [Mass/Vol] 97 mg/dL Normal 74-106 [facility] Comment on above: Performed By: #### L IPID, CMP, T4, TSH, FT3 #### [facility] [address] [address] [address] Mendel Herron Potassium [Moles/Vol] 4.2 mmol/L Normal 3.5-5.1 [facility] Comment on above: Performed By: #### L IPID, CMP, T4, TSH, FT3 #### [facility] [address] [place] [address] Dr. Mendel Herron Protein [Mass/Vol] 8.4 g/dL Critically high 6.4-8.2 [facility] Comment on above: Performed By: #### L IPID, CMP, T4, TSH, FT3 #### [facility] [address] [place] [address] Dr. Mendel Herron Sodium [Moles/Vol] 138 mmol/L Normal 136-145 [facility] Comment on above: Performed By: #### L IPID, CMP, T4, TSH, FT3 #### [facility] [address] [place] [address] Dr. Mendel Herron Urea nitrogen [Mass/Vol] 12.0 mg/dL Normal 7.0-18.0 [facility] Comment on above: Performed By: #### L IPID, CMP, T4, TSH, FT3 #### [facility] [address] [place] [address] Dr. Mendel Herron Urea nitrogen/Creatinine [Mass ratio] 14.5 mg/mg Normal [facility] Comment on above: Performed By: #### L IPID, CMP, T4, TSH, FT3 #### [facility] [address] [place] [address] Dr. Mendel Herron T4on 09-09-2022 T4 [Mass/Vol] 8.80 ug/dL Normal 4.80-13.90 [facility] Comment on above: Performed By: #### L IPID, CMP, T4, TSH, FT3 #### [facility] [address] [place] [address] Dr. Mendel Herron TSHon 09-09-2022 TSH 0.898 uIU/mL Normal 0.358-3.740 [facility] Comment on above: Performed By: #### L IPID, CMP, T4, TSH, FT3 #### [facility] [address], [place] [address] Dr. Mendel Herron VITAMIN D 25 OHon 09-09-2022 VIT D 25-OH 24.0 ng/mL Normal [facility] Comment on above: Performed By: #### L IPID, CMP, T4, TSH, FT3 #### [facility] [address], [place] [address] Dr. Mendel Herron VIT D RANGES SEE BELOW Normal [facility] Comment on above: Result Comment: <20 ng/mL Vit D deficient 20 - <30 ng/mL Vit D insufficient 30 - 100 ng/mL Vit D sufficient >100 ng/mL Potential Toxicity Performed By: #### L IPID, CMP, T4, TSH, FT3 #### [facility] [address], [place] [address] Dr. Mendel Herron NM HEPATOBILIARY SCAN W [...] GARY Date: 2022-08-20 16:07 Normal [facility] US SINGLE QUAD RT UPPERon US [...] JEAN LOPES Date: 2022-08-11 15:50 Normal [facility] CARDIAC SUBHA ADMITon 023 CK [Catalytic activity/Vol] 30 U/L Normal 26-192 [facility] Comment on above: Performed By: #### L IPID, CMP, T4, TSH, FT3 #### [facility] [address] [address] [address] Mendel Herron CK.MB [Mass/Vol] 1.02 ng/mL Normal <=3.60 [facility] Comment on above: Performed By: #### L IPID, CMP, T4, TSH, FT3 #### [facility] [address] [address] [address] Mendel Herron HSTROP 32.8 pg/mL Normal 4.0-51.3 [facility] Comment on above: Result Comment: CUT- OFF POINTS HAVE BEEN ESTABLISHED BASED ON THE FOURTH UNIVERSAL DEFINITIONS OF MYOCARDIAL INFARCTION. THE UPPER REFERENCE LIMIT (URL) OF TROPONIN, DEFINED THE 99TH PERCENTILE OF cTnI DISTRIBUTION IN A REFERENCE POPULATION, HAS BEEN CONFIRMED THE DECISION THRESHOLD FOR ME DIAGNOSIS. Performed By: #### L IPID, CMP, T4, TSH, FT3 #### [facility] [address] [address] [address] Mendel Herron SONYA 23 ng/mL Normal 9-82 [facility] Comment on above: Performed By: #### L IPID, CMP, T4, TSH, FT3 #### [facility] [address] [place] [address] Dr. Mendel Herron CBC AUTO DIFFon 08-09-2022 BASO # 0.0 103/ul Normal 0.0-0.1 [facility] Comment on above: Performed By: #### L IPID, CMP, T4, TSH, FT3 #### [facility] [address] [place] [address] Dr. Mendel Herron Basophils/100 WBC (Bld) 0.3 % Normal 0.2-2.0 [facility] Comment on above: Performed By: #### L IPID, CMP, T4, TSH, FT3 #### [facility] [address] [place] [address] Dr. Mendel Herron EO # 0.0 103/ul Normal 0.0-0.7 [facility] Comment on above: Performed By: #### L IPID, CMP, T4, TSH, FT3 #### [facility] [address] [place] [address] Dr. Mendel Herron Eosinophils/100 WBC (Bld) 0.3 % Critically low 0.9-7.0 [facility] Comment on above: Performed By: #### L IPID, CMP, T4, TSH, FT3 #### [facility] [address] [place] [address] Dr. Mendel Herron Erythrocyte distribution width (RBC) [Ratio] 13.1 % Normal 11.0-15.0 [facility] Comment on above: Performed By: #### L IPID, CMP, T4, TSH, FT3 #### [facility] [address] [place] [address] Dr. Mendel Herron Hematocrit (Bld) [Volume fraction] 42.7 % Normal 36.0-48.0 [facility] Comment on above: Performed By: #### L IPID, CMP, T4, TSH, FT3 #### [facility] [address] [place] [address] Dr. Mendel Herron Hemoglobin (Bld) [Mass/Vol] 15.4 g/dL Normal 12.0-16.0 [facility] Comment on above: Performed By: #### L IPID, CMP, T4, TSH, FT3 #### [facility] [address] [address] [address] Mendel Herron IG # 0.05 10e3/ul Critically high 0.00-0.03 [facility] Comment on above: Performed By: #### L IPID, CMP, T4, TSH, FT3 #### [facility] [address] [address] [address] Mendel Herron IG % 0.4 % Normal 0.0-0.5 [facility] Comment on above: Performed By: #### L IPID, CMP, T4, TSH, FT3 #### [facility] [address] [place] [address] Dr. Mendel Herron LYMPH # 2.5 103/ul Normal 1.2-3.8 [facility] Comment on above: Performed By: #### L IPID, CMP, T4, TSH, FT3 #### [facility] [address] [address] [address] Mendel Herron Lymphocytes/100 WBC (Bld) 21.2 % Normal 20.5-60.0 [facility] Comment on above: Performed By: #### L IPID, CMP, T4, TSH, FT3 #### [facility] [address] [address] [address] Mendel Herron MANUAL DIFF REQ NO Normal [facility] Comment on above: Performed By: #### L IPID, CMP, T4, TSH, FT3 #### [facility] [address] [address] [address] Mendel Herron MCH (RBC) [Entitic mass] 31.7 pg Normal 26.7-34.0 [facility] Comment on above: Performed By: #### L IPID, CMP, T4, TSH, FT3 #### [facility] [address] [place] [address] Dr. Mendel Herron MCHC (RBC) [Mass/Vol] 36.1 g/dL Critically high 29.9-35.2 [facility] Comment on above: Performed By: #### L IPID, CMP, T4, TSH, FT3 #### [facility] [address] [place] [address] Dr. Mendel Herron MCV (RBC) [Entitic vol] 87.9 fL Normal 81.0-99.0 [facility] Comment on above: Performed By: #### L IPID, CMP, T4, TSH, FT3 #### [facility] [address] [place] [address] Dr. Mendel Herron MONO # 0.7 103/ul Normal 0.3-0.8 [facility] Comment on above: Performed By: #### L IPID, CMP, T4, TSH, FT3 #### [facility] [address] [place] [address] Dr. Mendel Herron Monocytes/100 WBC (Bld) 6.3 % Normal 1.7-12.0 [facility] Comment on above: Performed By: #### L IPID, CMP, T4, TSH, FT3 #### [facility] [address] [place] [address] Dr. Mendel Herron NEUT # 8.4 103/ul Critically high 1.4-6.5 [facility] Comment on above: Performed By: #### L IPID, CMP, T4, TSH, FT3 #### [facility] [address] [place] [address] Dr. Mendel Herron Neutrophils/100 WBC (Bld) 71.5 % Normal 43.0-75.0 [facility] Comment on above: Performed By: #### L IPID, CMP, T4, TSH, FT3 #### [facility] [address] [place] [address] Dr. Mendel Herron Platelet mean volume (Bld) [Entitic vol] 9.8 fL Normal 9.5-13.5 [facility] Comment on above: Performed By: #### L IPID, CMP, T4, TSH, FT3 #### [facility] [address] [address] [address] Mendel Herron PLT 374 103/ul Normal 150-450 [facility] Comment on above: Performed By: #### L IPID, CMP, T4, TSH, FT3 #### [facility] [address] [place] [address] Dr. Mendel Herron RBC 4.86 106/ul Normal 4.20-5.40 [facility] Comment on above: Performed By: #### L IPID, CMP, T4, TSH, FT3 #### [facility] [address] [address] [address] Mendel Herron WBC 11.7 103/ul Critically high 4.0-11.0 [facility] Comment on above: Performed By: #### L IPID, CMP, T4, TSH, FT3 #### [facility] [address] [place] [address] HEAD WO CONon [...] VELAZQUEZ Date: 2022-08-09 15:23 Normal [facility] SARS-CoV-2 (COVID-19) RNA DEIRDRE+probe Ql (Unsp spec) Not detected Normal NOT DETECTED [facility] Comment on above: Result Comment: When [...] for this test is supported by the [place] of Health and Human Service's declaration that [...] IPID, CMP, T4, TSH, FT3 #### [facility] [address] [place] [address] Dr. Mendel Herron ER URINE PROFILEon 3 Bilirubin Ql (U) Negative Normal NEGATIVE [facility] Comment on above: Performed By: #### L IPID, CMP, T4, TSH, FT3 #### [facility] [address] [place] [address] Dr. Mendel Herron Clarity (U) CLEAR Normal CLEAR [facility] Comment on above: Performed By: #### L IPID, CMP, T4, TSH, FT3 #### [facility] [address] [place] [address] Dr. Mendel Herron Color (U) LT. YELLOW Normal YELLOW [facility] Comment on above: Performed By: #### L IPID, CMP, T4, TSH, FT3 #### [facility] [address] [place] [address] Dr. Mendel Herron ERUAHD A micrscopic examination will be performed if indicated. Normal [facility] Comment on above: Performed By: #### L IPID, CMP, T4, TSH, FT3 #### [facility] [address] [place] [address] Dr. Mendel Herron Glucose Ql (U) Negative Normal NEGATIVE [facility] Comment on above: Performed By: #### L IPID, CMP, T4, TSH, FT3 #### [facility] [address] [address] [address] Mendel Herron Hemoglobin Ql (U) TRACE-INTACT Abnormal NEGATIVE [facility] Comment on above: Performed By: #### L IPID, CMP, T4, TSH, FT3 #### [facility] [address] [address] [address] Mendel Herron Ketones Ql (U) Negative Normal NEGATIVE [facility] Comment on above: Performed By: #### L IPID, CMP, T4, TSH, FT3 #### [facility] [address] [address] [address] Mendel Herron LEUKOCYTES Negative Normal NEGATIVE [facility] Comment on above: Performed By: #### L IPID, CMP, T4, TSH, FT3 #### [facility] [address] [address] [address] eMndel Herron Nitrite Ql (U) Negative Normal NEGATIVE [facility] Comment on above: Performed By: #### L IPID, CMP, T4, TSH, FT3 #### [facility] [address] [address] [address] Mendel Herron pH (U) 5.0 [pH] Normal 5-9 [facility] Comment on above: Performed By: #### L IPID, CMP, T4, TSH, FT3 #### [facility] [address] [address] [address] Mendel Herron SPEC GRAVITY 1.015 Normal 1.005-<=1.025 [facility] Comment on above: Performed By: #### L IPID, CMP, T4, TSH, FT3 #### [facility] [address] [address] [address] Mendel Herron UA PROTEIN Negative Normal NEGATIVE/ TRACE [facility] Comment on above: Performed By: #### L IPID, CMP, T4, TSH, FT3 #### [facility] [address] [address] [address] Mendel Herron UR MICRO IND INDICATED Normal [facility] Comment on above: Performed By: #### L IPID, CMP, T4, TSH, FT3 #### [facility] [address] [place] [address] Dr. Mendel Herron Urobilinogen Qn (U) 0.2 {James'U}/dL Normal 0.2 - 1. 0 [facility] Comment on above: Performed By: #### L IPID, CMP, T4, TSH, FT3 #### [facility] [address] [address] [address] Mendel Herron LIPASEon 08-09-2022 Lipase [Catalytic activity/Vol] 114.0 U/L Normal 73.0-393.0 [facility] Comment on above: Performed By: #### L IPA, BMP, CMADM #### [facility] [address] [place] [address] Dr. Mendel Herron PROF CHEM 8 (BAS METB)on Anion gap [Moles/Vol] 18.9 mmol/L Normal [facility] Comment on above: Performed By: #### L IPA, BMP, CMADM #### [facility] [address] [place] [address] Dr. Mendel Herron Calcium [Mass/Vol] 9.4 mg/dL Normal 8.5-10.1 [facility] Comment on above: Performed By: #### L IPA, BMP, CMADM #### [facility] [address] [place] [address] Dr. Mendel Herron Chloride [Moles/Vol] 97 mmol/L Critically low 98-107 [facility] Comment on above: Performed By: #### L IPA, BMP, CMADM #### [facility] [address] [place] [address] Dr. Mendel Herron CO2 [Moles/Vol] 26.0 mmol/L Normal 21.0-32.0 [facility] Comment on above: Performed By: #### L IPA, BMP, CMADM #### [facility] [address] [place] [address] Dr. Mendel Herron Creatinine [Mass/Vol] 0.85 mg/dL Normal 0.55-1.02 [facility] Comment on above: Performed By: #### L IPA, BMP, CMADM #### [facility] [address] [address] [address] Mendel Herron EGFR-AF [facility] >60 Normal >=60 [facility] Comment on above: Performed By: #### L IPA, BMP, CMADM #### [facility] [address] [address] [address] Mendel Herron EGFR-NON AF [facility] >60 Normal >=60 [facility] Comment on above: Performed By: #### L IPA, BMP, CMADM #### [facility] [address] [address] [address] Mendel Herron Glucose [Mass/Vol] 120 mg/dL Critically high 74-106 [facility] Comment on above: Performed By: #### L IPA, BMP, CMADM #### [facility] [address] [address] [address] Mendel Herron Potassium [Moles/Vol] 3.9 mmol/L Normal 3.5-5.1 [facility] Comment on above: Performed By: #### L IPA, BMP, CMADM #### [facility] [address] [address] [address] Mendel Herron Sodium [Moles/Vol] 138 mmol/L Normal 136-145 [facility] Comment on above: Performed By: #### L IPA, BMP, CMADM #### [facility] [address] [address] [address] Mendel Herron Urea nitrogen [Mass/Vol] 17.0 mg/dL Normal 7.0-18.0 [facility] Comment on above: Performed By: #### L IPA, BMP, CMADM #### [facility] [address] [address] [address] Mendel Herron Urea nitrogen/Creatinine [Mass ratio] 20.0 mg/mg Normal [facility] Comment on above: Performed By: #### L IPA, BMP, CMADM #### [facility] [address] [address] [address] Mednel Herron TROPONIN, HIGH SENSITIVITYon 08-09-2022 HSTROP 32.5 pg/mL Normal 4.0-51.3 [facility] Comment on above: Result Comment: CUT- OFF POINTS HAVE BEEN ESTABLISHED BASED ON THE FOURTH UNIVERSAL DEFINITIONS OF MYOCARDIAL INFARCTION. THE UPPER REFERENCE LIMIT (URL) OF TROPONIN, DEFINED THE 99TH PERCENTILE OF cTnI DISTRIBUTION IN A REFERENCE POPULATION, HAS BEEN CONFIRMED THE DECISION THRESHOLD FOR ME DIAGNOSIS. Performed By: #### L IPID, CMP, T4, TSH, FT3 #### [facility] [address] [address] [address] Mendel Herron URINE MICROSCOPIC ONLYon BACTERIA NONE SEEN Normal NONE SEEN [facility] Comment on above: Performed By: #### L IPID, CMP, T4, TSH, FT3 #### [facility] [address] [place] [address] Dr. Mendel Herron Bacteria identified Cx Nom (U) NOT INDICATED Normal [facility] Comment on above: Performed By: #### L IPID, CMP, T4, TSH, FT3 #### [facility] [address] [place] [address] Dr. Mendel Herron CAST NONE SEEN Normal NONE SEEN [facility] Comment on above: Performed By: #### L IPID, CMP, T4, TSH, FT3 #### [facility] [address] [place] [address] Dr. Mendel Herron Crystals LM Nom (Urine sed) NONE SEEN Normal NONE SEEN [facility] Comment on above: Performed By: #### L IPID, CMP, T4, TSH, FT3 #### [facility] [address] [place] [address] Dr. Mendel Herron Epithelial cells LM Ql (Urine sed) NONE SEEN Normal NONE SEEN /RARE [facility] Comment on above: Performed By: #### L IPID, CMP, T4, TSH, FT3 #### [facility] [address] [place] [address] Dr. Mendel Herron MUCOUS NONE SEEN Normal NONE SEEN [facility] Comment on above: Performed By: #### L IPID, CMP, T4, TSH, FT3 #### [facility] [address] [address] [address] Mendel Herron RBC 0-2 Normal 0-2 [facility] Comment on above: Performed By: #### L IPID, CMP, T4, TSH, FT3 #### [facility] [address] [address] [address] Mendel Herron WBC NONE SEEN Normal NONE SEEN [facility] Comment on above: Performed By: #### L IPID, CMP, T4, TSH, FT3 #### [facility] [address] [address] [address] Mendel Herron XR CHEST 1 Von [...] by: MARY DIETZ Date: 2022-08-09 15:18 Normal [facility] H PYLORI ANTIBODY IGGon 07-20 H. PYLORI IGG ABS 0.11 Index Value Normal 0.00-0.79 [facility] Comment on above: Result Comment: Nega tive <0.80 Equivocal 0.80 - 0.89 Positive >0.89 Performed By: #### L IPID, CMP, T4, TSH, FT3 #### [facility] [address] [place] [address] Dr. Mendel Herron AMYLASEon 08-06-2022 Amylase [Catalytic activity/Vol] 57 U/L Normal 25-115 [facility] Comment on above: Performed By: #### L IPID, CMP, T4, TSH, FT3 #### [facility] [address] [address] [address] Mendel Herron CBC AUTO DIFFon 08-06-2022 BASO # 0.1 103/ul Normal 0.0-0.1 [facility] Comment on above: Performed By: #### L IPID, CMP, T4, TSH, FT3 #### [facility] [address] [place] [address] Dr. Mendel Herron Basophils/100 WBC (Bld) 0.7 % Normal 0.2-2.0 [facility] Comment on above: Performed By: #### L IPID, CMP, T4, TSH, FT3 #### [facility] [address] [place] [address] Dr. Mendel Herron EO # 0.1 103/ul Normal 0.0-0.7 [facility] Comment on above: Performed By: #### L IPID, CMP, T4, TSH, FT3 #### [facility] [address] [place] [address] Dr. Mendel Herron Eosinophils/100 WBC (Bld) 0.5 % Critically low 0.9-7.0 [facility] Comment on above: Performed By: #### L IPID, CMP, T4, TSH, FT3 #### [facility] [address] [place] [address] Dr. Mendel Herron Erythrocyte distribution width (RBC) [Ratio] 13.7 % Normal 11.0-15.0 [facility] Comment on above: Performed By: #### L IPID, CMP, T4, TSH, FT3 #### [facility] [address] [place] [address] Dr. Mendel Herron Hematocrit (Bld) [Volume fraction] 46.2 % Normal 36.0-48.0 [facility] Comment on above: Performed By: #### L IPID, CMP, T4, TSH, FT3 #### [facility] [address] [place] [address] Dr. Mendel Herron Hemoglobin (Bld) [Mass/Vol] 15.1 g/dL Normal 12.0-16.0 [facility] Comment on above: Performed By: #### L IPID, CMP, T4, TSH, FT3 #### [facility] [address] [place] [address] Dr. Mendel Herron IG # 0.06 10e3/ul Critically high 0.00-0.03 [facility] Comment on above: Performed By: #### L IPID, CMP, T4, TSH, FT3 #### [facility] [address] [place] [address] Dr. Mendel Herron IG % 0.6 % Critically high 0.0-0.5 [facility] Comment on above: Performed By: #### L IPID, CMP, T4, TSH, FT3 #### [facility] [address] [place] [address] Dr. Mendel Herron LYMPH # 2.5 103/ul Normal 1.2-3.8 [facility] Comment on above: Performed By: #### L IPID, CMP, T4, TSH, FT3 #### [facility] [address] [place] [address] Dr. Mendel Herron Lymphocytes/100 WBC (Bld) 23.4 % Normal 20.5-60.0 [facility] Comment on above: Performed By: #### L IPID, CMP, T4, TSH, FT3 #### [facility] [address] [place] [address] Dr. Mendel Herron MANUAL DIFF REQ NO Normal [facility] Comment on above: Performed By: #### L IPID, CMP, T4, TSH, FT3 #### [facility] [address] [place] [address] Dr. Mendel Herron MCH (RBC) [Entitic mass] 31.4 pg Normal 26.7-34.0 [facility] Comment on above: Performed By: #### L IPID, CMP, T4, TSH, FT3 #### [facility] [address] [place] [address] Dr. Mendel Herron MCHC (RBC) [Mass/Vol] 32.7 g/dL Normal 29.9-35.2 [facility] Comment on above: Performed By: #### L IPID, CMP, T4, TSH, FT3 #### [facility] [address] [place] [address] Dr. Mendel Herron MCV (RBC) [Entitic vol] 96.0 fL Normal 81.0-99.0 [facility] Comment on above: Performed By: #### L IPID, CMP, T4, TSH, FT3 #### [facility] [address] [place] [address] Dr. Mendel Herron MONO # 0.6 103/ul Normal 0.3-0.8 [facility] Comment on above: Performed By: #### L IPID, CMP, T4, TSH, FT3 #### [facility] [address] [place] [address] Dr. Mendel Herron Monocytes/100 WBC (Bld) 6.0 % Normal 1.7-12.0 [facility] Comment on above: Performed By: #### L IPID, CMP, T4, TSH, FT3 #### [facility] [address] [place] [address] Dr. Mendel Herron NEUT # 7.4 103/ul Critically high 1.4-6.5 [facility] Comment on above: Performed By: #### L IPID, CMP, T4, TSH, FT3 #### [facility] [address] [place] [address] Dr. Mendel Herron Neutrophils/100 WBC (Bld) 68.8 % Normal 43.0-75.0 [facility] Comment on above: Performed By: #### L IPID, CMP, T4, TSH, FT3 #### [facility] [address] [place] [address] Dr. Mendel Herron Platelet mean volume (Bld) [Entitic vol] 9.7 fL Normal 9.5-13.5 [facility] Comment on above: Performed By: #### L IPID, CMP, T4, TSH, FT3 #### [facility] [address] [place] [address] Dr. Mendel Herron PLT 331 103/ul Normal 150-450 [facility] Comment on above: Performed By: #### L IPID, CMP, T4, TSH, FT3 #### [facility] [address] [place] [address] Dr. Mendel Herron RBC 4.81 106/ul Normal 4.20-5.40 [facility] Comment on above: Performed By: #### L IPID, CMP, T4, TSH, FT3 #### [facility] [address] [place] [address] Dr. Mendel Herron WBC 10.7 103/ul Normal 4.0-11.0 [facility] Comment on above: Performed By: #### L IPID, CMP, T4, TSH, FT3 #### [facility] [address] [address] [address] HEAD WO CONon [...] JEAN LOPES Date: 2022-08-06 08:39 Normal [facility] LIPASEon 08-06-2022 Lipase [Catalytic activity/Vol] 125.0 U/L Normal 73.0-393.0 [facility] Comment on above: Performed By: #### L IPID, CMP, T4, TSH, FT3 #### [facility] [address] [address] [address] Mendel Herron PROF 14(COMP METB)on 023 Albumin [Mass/Vol] 3.7 g/dL Normal 3.4-5.0 [facility] Comment on above: Performed By: #### L IPID, CMP, T4, TSH, FT3 #### [facility] [address] [address] [address] Mendel Herron Albumin/Globulin [Mass ratio] 0.9 {ratio} Normal [facility] Comment on above: Performed By: #### L IPID, CMP, T4, TSH, FT3 #### [facility] [address] [address] [address] Mendel Herron ALP [Catalytic activity/Vol] 110 U/L Normal 46-116 [facility] Comment on above: Performed By: #### L IPID, CMP, T4, TSH, FT3 #### [facility] [address] [place] [address] Dr. Mendel Herron ALT [Catalytic activity/Vol] 25 U/L Normal 14-59 [facility] Comment on above: Performed By: #### L IPID, CMP, T4, TSH, FT3 #### [facility] [address] [address] [address] Mendel Herron Anion gap [Moles/Vol] 14.0 mmol/L Normal [facility] Comment on above: Performed By: #### L IPID, CMP, T4, TSH, FT3 #### [facility] [address] [place] [address] Dr. Mendel Herron AST [Catalytic activity/Vol] 16 U/L Normal 15-37 [facility] Comment on above: Performed By: #### L IPID, CMP, T4, TSH, FT3 #### [facility] [address] [place] [address] Dr. Mendel Herron Bilirubin [Mass/Vol] 0.6 mg/dL Normal 0.2-1.0 [facility] Comment on above: Performed By: #### L IPID, CMP, T4, TSH, FT3 #### [facility] [address] [address] [address] Mendel Herron Calcium [Mass/Vol] 9.3 mg/dL Normal 8.5-10.1 [facility] Comment on above: Performed By: #### L IPID, CMP, T4, TSH, FT3 #### [facility] [address] [address] [address] Mendel Herron Chloride [Moles/Vol] 103 mmol/L Normal 98-107 [facility] Comment on above: Performed By: #### L IPID, CMP, T4, TSH, FT3 #### [facility] [address] [address] [address] Mendel Herron CO2 [Moles/Vol] 27.3 mmol/L Normal 21.0-32.0 [facility] Comment on above: Performed By: #### L IPID, CMP, T4, TSH, FT3 #### [facility] [address] [address] [address] Mendel Herron Creatinine [Mass/Vol] 0.71 mg/dL Normal 0.55-1.02 [facility] Comment on above: Performed By: #### L IPID, CMP, T4, TSH, FT3 #### [facility] [address] [place] [address] Dr. Mendel Herron EGFR-AF [facility] >60 Normal >=60 [facility] Comment on above: Performed By: #### L IPID, CMP, T4, TSH, FT3 #### [facility] [address] [place] [address] Dr. Mendel Herron EGFR-NON AF [facility] >60 Normal >=60 [facility] Comment on above: Performed By: #### L IPID, CMP, T4, TSH, FT3 #### [facility] [address] [place] [address] Dr. Mendel Herron Globulin (S) [Mass/Vol] 4.3 g/dL Normal [facility] Comment on above: Performed By: #### L IPID, CMP, T4, TSH, FT3 #### [facility] [address] [place] [address] Dr. Mendel Herron Glucose [Mass/Vol] 102 mg/dL Normal 74-106 [facility] Comment on above: Performed By: #### L IPID, CMP, T4, TSH, FT3 #### [facility] [address] [address] [address] Mendel Herron Potassium [Moles/Vol] 4.3 mmol/L Normal 3.5-5.1 [facility] Comment on above: Performed By: #### L IPID, CMP, T4, TSH, FT3 #### [facility] [address] [place] [address] Dr. Mendel Herron Protein [Mass/Vol] 8.0 g/dL Normal 6.4-8.2 [facility] Comment on above: Performed By: #### L IPID, CMP, T4, TSH, FT3 #### [facility] [address] [address] [address] Mendel Herron Sodium [Moles/Vol] 140 mmol/L Normal 136-145 [facility] Comment on above: Performed By: #### L IPID, CMP, T4, TSH, FT3 #### [facility] [address] [place] [address] Dr. Mendel Herron Urea nitrogen [Mass/Vol] 19.0 mg/dL Critically high 7.0-18.0 [facility] Comment on above: Performed By: #### L IPID, CMP, T4, TSH, FT3 #### [facility] [address] [place] [address] Dr. Mendel Herron Urea nitrogen/Creatinine [Mass ratio] 26.8 mg/mg Normal [facility] Comment on above: Performed By: #### L IPID, CMP, T4, TSH, FT3 #### [facility] [address] [place] [address] Dr. Mendel Herron Covid-19 PCR ([facility])on 06-19 SARS-CoV-2 (COVID-19) RNA DEIRDRE+probe Ql (Unsp spec) Not detected Normal NOT DETECTED [facility] Comment on above: Result Comment: This test is not yet approved or cleared by the [place] FDA. When there are no FDA-approved or cleared tests available, and other criteria are met, FDA can make tests available under an emergency access mechanism called an Emergency Use Authorization (EUA). The EUA for this test is supported by the [place] of Health and Human Service's (HHS's) declaration [...] Performed By: #### C VDTBH #### [facility] [address] [place] [address] Dr. Mendel Herron INFLUENZA A AND B AGon 07-16 [facility] SEE BELOW Normal [facility] Comment on above: Result Comment: Nega tive for Flu A protein angiten. Infection due to Flu A cannot be ruled out. Flu A angiten in the sample may be below the detection limit of the test. Performed By: #### L IPID, CMP, T4, TSH, FT3 #### [facility] [address] [place] [address] Dr. Mendel Herron INFLUBNEG SEE BELOW Normal [facility] Comment on above: Result Comment: Nega tive for Flu B protein antigen. Infection due to Flu B cannot be ruled out. Flu B antigen in the sample may be below the detection limit of the test. Performed By: #### L IPID, CMP, T4, TSH, FT3 #### [facility] [address] [place] [address] Dr. Mendel Herron INFLUENZA A AG Negative Normal NEGATIVE SEE COMMENT [facility] Comment on above: Performed By: #### L IPID, CMP, T4, TSH, FT3 #### [facility] [address] [place] [address] Dr. Mendel Herron INFLUENZA B AG Negative Normal NEGATIVE SEE COMMENT [facility] Comment on above: Performed By: #### L IPID, CMP, T4, TSH, FT3 #### [facility] [address] [place] [address] Dr. Mendel Herr[facility] SARS-CoV-2 (COVID-19) RNA DEIRDRE+probe Ql (Unsp spec) Not detected Normal NOT DETECTED [facility] Comment on above: Result Comment: This test is not yet approved or cleared by the [place] FDA. When there are no FDA-approved or cleared tests available, and other criteria are met, FDA can make tests available under an emergency access mechanism called an Emergency Use Authorization (EUA). The EUA for this test is supported by the [place] of Health and Human Service's (HHS's) declaration [...] IPID, CMP, T4, TSH, FT3 #### [facility] [address] [place] [address] Dr. Mendel Herron INFLUENZA A AND B [facility] 05-11 [facility] SEE BELOW Normal [facility] Comment on above: Result Comment: Nega tive for Flu A protein angiten. Infection due to Flu A cannot be ruled out. Flu A angiten in the sample may be below the detection limit of the test. Performed By: #### L IPID, CMP, T4, TSH, FT3 #### [facility] [address] [place] [address] Dr. Mendel Herr[facility] SEE [facility] Normal [facility] Comment on above: Result Comment: Nega tive for Flu B protein antigen. Infection due to Flu B cannot be ruled out. Flu B antigen in the sample may be below the detection limit of the test. Performed By: #### L IPID, CMP, T4, TSH, FT3 #### [facility] [address] [place] [address] Dr. Mendel Herron INFLUENZA A AG Negative Normal NEGATIVE SEE COMMENT [facility] Comment on above: Performed By: #### L IPID, CMP, T4, TSH, FT3 #### [facility] [address] [place] [address] Dr. Mendel Herron INFLUENZA B AG Negative Normal NEGATIVE SEE COMMENT [facility] Comment on above: Performed By: #### L IPID, CMP, T4, TSH, FT3 #### [facility] [address] [place], [place] [address] Dr. Mendel Herron INTERNAL CONTROLS Within Normal Limits Normal Wi thin Normal Limits [facility] Comment on above: Performed By: #### L IPID, CMP, T4, TSH, FT3 #### [facility] [address] [place], [place] [address] Dr. Mendel Herron Comprehensive Metabolic Empo n 12-23-2021 Albumin [Mass/Vol] 3.7 g/dL Normal 3.2-5.[address] [facility] Comment on above: Performed By: #### E BS CMP, EBS LIPID #### [facility] [address] [place] [address] [place] Albumin/Globulin [Mass ratio] 1.0 {ratio} Normal [facility] Comment on above: Performed By: #### E BS CMP, EBS LIPID #### [facility] [address] [id number] [place] ALP [Catalytic activity/Vol] 159 U/L High 32-92 [facility] Comment on above: Performed By: #### E BS CMP, EBS LIPID #### [facility] [address] [place] [address] [place] ALT [Catalytic activity/Vol] 28 U/L Normal 10-60 [facility] Comment on above: Performed By: #### E BS CMP, EBS LIPID #### [facility] [address] [place] [address] [place] AST [Catalytic activity/Vol] 27 U/L Normal 10-42 [facility] Comment on above: Performed By: #### E BS CMP, EBS LIPID #### [facility] [address] [place] [address] [place] Bilirubin [Mass/Vol] 1.2 mg/dL Normal 0.3-1.2 [facility] Comment on above: Performed By: #### E BS CMP, EBS LIPID #### [facility] [address] [place] [address] [place] Calcium [Mass/Vol] 9.2 mg/dL Normal 8.2-10.[address] [facility] Comment on above: Performed By: #### E BS CMP, EBS LIPID #### [facility] [address] [place] [address] [place] Chloride [Moles/Vol] 100 mmol/L Normal 95-114 [facility] Comment on above: Performed By: #### E BS CMP, EBS LIPID #### [facility] [address] CO2 [Moles/Vol] 20.6 mmol/L Low 22.0-30.[address] [facility] Comment on above: Performed By: #### E BS CMP, EBS LIPID #### [facility] [address] Creatinine [Mass/Vol] 0.57 mg/dL Normal 0.44-1.03 [facility] Comment on above: Performed By: #### E BS CMP, EBS LIPID #### [facility] [address] [place] [address] Estimated GFR ( Ni > 60 [facility] Comment on above: Result Comment: GFR estimated reference range: According to KDOQI guidelines, <60 ml/min/1.73m2 is sufficient to diagnose a patient with chronic kidney disease. Performed By: #### E BS CMP, EBS LIPID #### [facility] [address] [place] [address] Estimated GFR (Non- Am > 60 Normal [facility] Comment on above: Performed By: #### E BS CMP, EBS LIPID #### [facility] [address] [place] [address] [place] Globulin (S) [Mass/Vol] 3.7 g/dL Normal [facility] Comment on above: Performed By: #### E BS CMP, EBS LIPID #### [facility] [address] [id number] [place] Glucose [Mass/Vol] 100 mg/dL Normal 70-[address] [facility] Comment on above: Performed By: #### E BS CMP, EBS LIPID #### [facility] [address] Potassium [Moles/Vol] 3.9 mmol/L Normal 3.5-5.1 [facility] Comment on above: Performed By: #### E BS CMP, EBS LIPID #### [facility] [address] Protein [Mass/Vol] 7.4 g/dL Normal 6.1-7.[address] [facility] Comment on above: Performed By: #### E BS CMP, EBS LIPID #### [facility] [address] [id number] [facility] Sodium [Moles/Vol] 135 mmol/L Low 136-[address] [facility] Comment on above: Performed By: #### E BS CMP, EBS LIPID #### [facility] [address] Urea nitrogen [Mass/Vol] 12 mg/dL Normal 9-23 [facility] Comment on above: Performed By: #### E BS CMP, EBS LIPID #### [facility] [address] Lipid Profileon 12-23-2021 Cholesterol [Mass/Vol] 213 mg/dL High 140-200 [facility] Comment on above: Result Comment: Chol less than 200 mg/dl low risk Chol 201-239 mg/dl borderline risk Chol 240 mg/dl and greater high risk Performed By: #### E BS CMP, EBS LIPID #### [facility] [address] Cholesterol in HDL [Mass/Vol] 36 mg/dL Normal 35-85 [facility] Comment on above: Result Comment: HDL CHOL ATP-III CLASSIFICATION Cardiovascular Risk HDL > or equal to 60 mg/dL LOW HDL < 40 mg/dL HIGH Performed By: #### E BS CMP, EBS LIPID #### [facility] [address] Cholesterol.total/Ch olesterol in HDL [Mass ratio] 5.9 {ratio} Normal <5.0 [facility] Comment on above: Result Comment: PERF ORMED BY: [place] [address] PATHOLOGIST [employer] MARIBEL AGUILLON M.D. Performed By: #### E BS CMP, EBS LIPID #### [facility] [address] LDL Cholesterol,Calculat ed 151 mg/dL High 0-100 [facility] Comment on above: Result Comment: LDL ATP III CLASSIFICATION LDL less than 100 mg/dL Optimal LDL 100-129 mg/dL Near or above optimal LDL 130-159 mg/dL Borderline high LDL 160-189 mg/dL High LDL greater than 189 mg/dL Very high Performed By: #### E BS CMP, EBS LIPID #### [facility] [address] Triglyceride w/Reflex 129 mg/dL Normal 35-149 [facility] Comment on above: Result Comment: TRIG ATP III CLASSIFICATION TRIG less than 150 mg/dL Normal TRIG 150-199 mg/dL Borderline high TRIG 200-500 mg/dL High TRIG greater than 500 mg/dL Very high Standard traceable to the Center for Disease Conrtrol and Prevention (CDC) test method. Performed By: #### E BS CMP, EBS LIPID #### [facility] [address] VLDL CHOLESTEROL 25 mg/dL Normal [facility] Comment on above: Performed By: #### E BS CMP, EBS LIPID #### [facility] [address] Covid-19 PCR ([facility])on 11-16 SARS-CoV-2 (COVID-19) RNA DEIRDRE+probe Ql (Unsp spec) Detected Critically abnormal NOT DETECTED [facility] Comment on above: Result Comment: This test is not yet approved or cleared by the [place] FDA. When there are no FDA-approved or cleared tests available, and other criteria are met, FDA can make tests available under an emergency access mechanism called an Emergency Use Authorization (EUA). The EUA for this test is supported by the [place] of Health and Human Service's declaration that [...] Performed By: #### C VDTBH #### [facility] [address] [place] [address] Dr. Mendel Herron INFLUENZA A AND B AGon 12-02 [facility] SEE BELOW Normal [facility] Comment on above: Result Comment: Nega tive for Flu A protein angiten. Infection due to Flu A cannot be ruled out. Flu A angiten in the sample may be below the detection limit of the test. Performed By: #### L IPID, CMP, T4, TSH, FT3 #### [facility] [address] [place] [address] Dr. Mendel Herr[facility] BEL[facility] Normal [facility] Comment on above: Result Comment: Nega tive for Flu B protein antigen. Infection due to Flu B cannot be ruled out. Flu B antigen in the sample may be below the detection limit of the test. Performed By: #### L IPID, CMP, T4, TSH, FT3 #### [facility] [address] [place] [address] Dr. Mendel Herron INFLUENZA A AG Negative Normal NEGATIVE SEE COMMENT [facility] Comment on above: Performed By: #### L IPID, CMP, T4, TSH, FT3 #### [facility] [address] [place] [address] Dr. Mendel Herron INFLUENZA B AG Negative Normal NEGATIVE SEE COMMENT [facility] Comment on above: Performed By: #### L IPID, CMP, T4, TSH, FT3 #### [facility] [address] [place] [address] Dr. Mendel Herron INTERNAL CONTROLS Within Normal Limits Normal Wi thin Normal Limits [facility] Comment on above: Performed By: #### L IPID, CMP, T4, TSH, FT3 #### [facility] [address] [place] [address] Dr. Mendel Herron Cardiovascular Lab Reporton 08-18-2021 Cardiovascular Lab Report [facility] Patient Name: Antonio [facility]ly [facility] S MR #: [id number] Department of Physician: Curtis Martinez MD Medicine Service Date: 08/18/2021 Division of Birthdate: 1970 Cardiology Room #: Adult Cardiovascular Services [facility] [address] [place], [place] [address] Cardiovascular Laboratory Report ATRIAL FLUTTER ABLATION AND [...] ab (more content not included)... Normal [facility] BILL Antinuclear Antibodieson 04-23-2021 Antinuclear Abs, IFA Negative Normal . [facility] Comment on above: Result Comment: Nega tive <1:80 Borderline 1:80 Positive >1:80 ICAP nomenclature: AC-0 For more information about Hep-2 cell patterns use ANApatterns.org, the official website for the International Consensus on Antinuclear Antibody (BILL) Patterns (ICAP). Performed at: - [facility] [id number] Axle Turner: Ger Yen PhD, Phone: [phone] PERFORMED BY: [place] [address] PATHOLOGIST INFANT LEAD TEACHER MARIBEL AGUILLON M.D. Performed By: #### E SR, CRP, CBC, CREAT #### [address] #### BILL #### [facility] , C-Reactive Proteinon 021 C-Reactive Protein 0.7 mg/dL Normal 0.0-1.[address] [facility] Comment on above: Result Comment: PERF ORMED BY: [place] [address] PATHOLOGIST INFANT LEAD TEACHER MARIBEL AGUILLON M.D. Performed By: #### E SR, CRP, CBC, CREAT #### [address] #### BILL #### [facility] , Complement C3on 04-23-2021 Complement C3 170 mg/dL High 82-167 [facility] Comment on above: Result Comment: Perf ormed at: - [facility] [address] [id number] Axle Turner: Ger Yen PhD, Phone: [phone] Performed By: #### A DDONUAPLUS #### [place] [address] [place] #### CH50, C3, C4 #### [facility] , Complement C4on 04-23-2021 Complement C4 14 mg/dL Normal 12-38 [facility] Comment on above: Performed By: #### A DDONUAPLUS #### [address] #### CH50, C3, C4 #### [facility] , Complement Total (CH50)on Complement Total (CH50) >60 Normal >41 [facility] Comment on above: Result Comment: Age [...] determine out of range values. Performed at: [address] [id number] Axle Turner: Ger Yen PhD, Phone: [phone] PERFORMED BY: [place] [address] PATHOLOGIST INFANT LEAD TEACHER MARIBEL AGUILLON M.D. Performed By: #### E BS CMP, EBS LIPID #### [address] Complete Blood Count Auto Di ffon 04-23-2021 Basophils (Bld) [#/Vol] 0.1 10*3/uL Normal 0.0-0.2 [facility] Comment on above: Performed By: #### E SR, CRP, CBC, CREAT #### [address] #### BILL #### [facility] , Basophils/100 WBC (Bld) 0.7 % Normal . [facility] Comment on above: Performed By: #### E SR, CRP, CBC, CREAT #### [address] #### BILL #### [facility] , Eosinophils (Bld) [#/Vol] 0.1 10*3/uL Normal 0.0-0.45 [facility] Comment on above: Performed By: #### E SR, CRP, CBC, CREAT #### [place] [address] [place] #### BILL #### [facility] , Eosinophils/100 WBC (Bld) 0.5 % Normal . [facility] Comment on above: Performed By: #### E SR, CRP, CBC, CREAT #### [place] [address] [place] #### BILL #### [facility] , Erythrocyte distribution width (RBC) [Ratio] 18.0 % High 11.9-15.3 [facility] Comment on above: Performed By: #### E SR, CRP, CBC, CREAT #### [address] #### BILL #### [facility] , Hematocrit (Bld) [Volume fraction] 31.6 % Low 34.0-46.4 [facility] Comment on above: Performed By: #### E SR, CRP, CBC, CREAT #### [address] #### BILL #### [facility] , Hemoglobin (Bld) [Mass/Vol] 9.8 g/dL Low 11.8-15.4 [facility] Comment on above: Performed By: #### E SR, CRP, CBC, CREAT #### [place] [address] [place] #### BILL #### [facility] , Lymphocytes (Bld) [#/Vol] 1.7 10*3/uL Normal 1.00-4.8 [facility] Comment on above: Performed By: #### E SR, CRP, CBC, CREAT #### [place] [address] [place] #### BILL #### [facility] , Lymphocytes/100 WBC (Bld) 15.0 % Normal . [facility] Comment on above: Performed By: #### E SR, CRP, CBC, CREAT #### [facility] [address] [place] [address] [place] #### BILL #### [facility] , MCH (RBC) [Entitic mass] 24.8 pg Normal 24.7-34.3 [facility] Comment on above: Performed By: #### E SR, CRP, CBC, CREAT #### [address] #### BILL #### [facility] , MCV (RBC) [Entitic vol] 80.1 fL Normal 80-100 [facility] Comment on above: Performed By: #### E SR, CRP, CBC, CREAT #### [address] #### BILL #### [facility] , Mean Corpuscular HGB Conc 31.0 g/dL Low 32.0-35.0 [facility] Comment on above: Performed By: #### E SR, CRP, CBC, CREAT #### [address] #### BILL #### [facility] , Monocytes (Bld) [#/Vol] 0.5 10*3/uL Normal 0.0-0.8 [facility] Comment on above: Performed By: #### E SR, CRP, CBC, CREAT #### [place] [address] [place] #### BILL #### [facility] , Monocytes/100 WBC (Bld) 4.6 % Normal . [facility] Comment on above: Performed By: #### E SR, CRP, CBC, CREAT #### [place] [address] [place] #### BILL #### [facility] , Neutrophils (Bld) [#/Vol] 9.1 10*3/uL High 1.8-7.7 [facility] Comment on above: Performed By: #### E SR, CRP, CBC, CREAT #### [facility] [address] [place] [address] #### BILL #### [facility] , Neutrophils/100 WBC (Bld) 79.2 % Normal . [facility] Comment on above: Performed By: #### E SR, CRP, CBC, CREAT #### [address] #### BILL #### [facility] , Nucleated RBC/100 WBC (Bld) [Ratio] 0.1 % Normal 0-0.5 [facility] Comment on above: Performed By: #### E SR, CRP, CBC, CREAT #### [facility] [address] [place] [address] #### BILL #### [facility] , Platelet mean volume (Bld) [Entitic vol] 8.3 fL Normal 6.3-10.7 [facility] Comment on above: Performed By: #### E SR, CRP, CBC, CREAT #### [address] #### BILL #### [facility] , Platelets (Bld) [#/Vol] 336 10*3/uL Normal 150-450 [facility] Comment on above: Performed By: #### E SR, CRP, CBC, CREAT #### [place] [address] [place] #### BILL #### [facility] , RBC (Bld) [#/Vol] 3.94 10*6/uL Normal 3.60-5.[address] [facility] Comment on above: Performed By: #### E SR, CRP, CBC, CREAT #### [place] [address] [place] #### BILL #### [facility] , WBC (Bld) [#/Vol] 11.5 10*3/uL High 4.5-11.[address] [facility] Comment on above: Performed By: #### E SR, CRP, CBC, CREAT #### [facility] [address] [place] [address] #### BILL #### [facility] , Creatinineon 04-23-2021 Creatinine [Mass/Vol] 0.75 mg/dL Normal 0.44-1.03 [facility] Comment on above: Performed By: #### E SR, CRP, CBC, CREAT #### [address] #### BILL #### [facility] , Estimated GFR ( Ni > 60 Normal [facility] Comment on above: Result Comment: GFR estimated reference range: According to KDOQI guidelines, <60 ml/min/1.73m2 is sufficient to diagnose a patient with chronic kidney disease. Performed By: #### E SR, CRP, CBC, CREAT #### [facility] [address] [place] [address] #### BILL #### [facility] , Estimated GFR (Non- Am > 60 Normal [facility] Comment on above: Performed By: #### E SR, CRP, CBC, CREAT #### [facility] [address] [place] [address] #### BILL #### [facility] , Dipstick and Microscopicon 1 Appearance (U) Clear Normal Clear [facility] Comment on above: Order Comment: Name Collection Type:: Clean-Voided Midstream Performed By: #### A DDONUAPLUS #### [address] #### CH50, C3, C4 #### [facility] , Bacteria,Urine None Seen Normal None Seen [facility] Comment on above: Order Comment: Name Collection Type:: Clean-Voided Midstream Performed By: #### A DDONUAPLUS #### [address] #### CH50, C3, C4 #### [facility] , Bilirubin,Urine Negative Normal Negative [facility] Comment on above: Order Comment: Name Collection Type:: Clean-Voided Midstream Performed By: #### A DDONUAPLUS #### [address] #### CH50, C3, C4 #### [facility] , Color (U) Yellow Normal Yellow [facility] Comment on above: Order Comment: Name Collection Type:: Clean-Voided Midstream Performed By: #### A DDONUAPLUS #### [address] #### CH50, C3, C4 #### [facility] , Glucose Ql (U) 100 mg/dL High Normal [facility] Comment on above: Order Comment: Name Collection Type:: Clean-Voided Midstream Performed By: #### A DDONUAPLUS #### [address] #### CH50, C3, C4 #### [facility] , Hyaline Casts,Urine 0-8 Normal 0-[address] [facility] Comment on above: Order Comment: Name Collection Type:: Clean-Voided Midstream Result Comment: PERF ORMED BY: [place] [address] PATHOLOGIST INFANT LEAD TEACHER MARIBEL AGUILLON M.D. Performed By: #### A DDONUAPLUS #### [address] #### CH50, C3, C4 #### [facility] , Ketones Ql (U) Negative Normal Negative [facility] Comment on above: Order Comment: Name Collection Type:: Clean-Voided Midstream Performed By: #### A DDONUAPLUS #### [address] #### CH50, C3, C4 #### [facility] , Leukocyte esterase Test strip Ql (U) Negative Normal Negative [facility] Comment on above: Order Comment: Name Collection Type:: Clean-Voided Midstream Performed By: #### A DDONUAPLUS #### [address] #### CH50, C3, C4 #### [facility] , Nitrite,Urine Negative Normal Negative [facility] Comment on above: Order Comment: Name Collection Type:: Clean-Voided Midstream Performed By: #### A DDONUAPLUS #### [address] #### CH50, C3, C4 #### [facility] , Occult Blood,Urine Negative Normal Negative [facility] Comment on above: Order Comment: Name Collection Type:: Clean-Voided Midstream Performed By: #### A DDONUAPLUS #### [address] #### CH50, C3, C4 #### [facility] , pH (U) 5.0 [pH] Normal 5.0-9.0 [facility] Comment on above: Order Comment: Name Collection Type:: Clean-Voided Midstream Performed By: #### A DDONUAPLUS #### [address] #### CH50, C3, C4 #### [facility] , Protein,Urine Negative Normal Negative [facility] Comment on above: Order Comment: Name Collection Type:: Clean-Voided Midstream Performed By: #### A DDONUAPLUS #### [address] #### CH50, C3, C4 #### [facility] , RBC,Urine None Seen Normal 0-4 [facility] Comment on above: Order Comment: Name Collection Type:: Clean-Voided Midstream Performed By: #### A DDONUAPLUS #### [address] #### CH50, C3, C4 #### [facility] , Specificy [place],Urine 1.009 Normal 1.001-1.030 [facility] Comment on above: Order Comment: Name Collection Type:: Clean-Voided Midstream Performed By: #### A DDONUAPLUS #### [address] #### CH50, C3, C4 #### [facility] , Squamous Epithelial Cell,Urine 0-1 Normal 0-2 [facility] Comment on above: Order Comment: Name Collection Type:: Clean-Voided Midstream Performed By: #### A DDONUAPLUS #### [address] #### CH50, C3, C4 #### [facility] , Urobilinogen,Urine Normal Normal Normal [facility] Comment on above: Order Comment: Name Collection Type:: Clean-Voided Midstream Performed By: #### A DDONUAPLUS #### [address] #### CH50, C3, C4 #### [facility] , WBC LM.HPF (Urine sed) [#/Area] 0 /[HPF] Normal 0-4 [facility] Comment on above: Order Comment: Name Collection Type:: Clean-Voided Midstream Performed By: #### A DDONUAPLUS #### [address] #### CH50, C3, C4 #### [facility] , Erythrocyte Sedimentation Ra ryley 04-23-2021 ESR (Bld) [Velocity] 55 mm/h High 0-29 [facility] Comment on above: Result Comment: PERF ORMED BY: [facility] [address] [place] [address] PATHOLOGIST INFANT LEAD TEACHER MARIBEL AGUILLON M.D. Performed By: #### E SR, CRP, CBC, CREAT #### [facility] [address] [place] [address] [place] #### BILL #### [facility] , BASIC METABOLIC PANELon - Calcium [Mass/Vol] 8.7 mg/dL Normal 8.6-10.3 [facility] Comment on above: Order Comment: No: D o not add to previous draw Performed By: #### 5 7307, 87335 #### [facility] [address] [place] [address], [facility] Chloride [Moles/Vol] 97 mmol/L Low 98-107 [facility] Comment on above: Order Comment: No: D o not add to previous draw Performed By: #### 5 7307, 24201 #### [facility] [address] [place] [address], [place] CO2 [Moles/Vol] 36 mmol/L High 21-31 [facility] Comment on above: Order Comment: No: D o not add to previous draw Performed By: #### 5 7307, 57189 #### [facility] [address] [place] [address], [place] Creatinine [Mass/Vol] 0.74 mg/dL Normal 0.60-1.20 [facility] Comment on above: Order Comment: No: D o not add to previous draw Performed By: #### 5 7307, 80009 #### [facility] [address] [place] [address], [place] GFR/1.73 sq M.predicted among blacks MDRD (S/P/Bld) [Vol rate/Area] mL/min/{1.73_m2} Normal >60 [facility] Comment on above: Order Comment: No: D o not add to previous draw Performed By: #### 5 73, 02554 #### [facility] [address] [place] [address], [place] GFR/1.73 sq M.predicted among non-blacks MDRD (S/P/Bld) [Vol rate/Area] mL/min/{1.73_m2} Normal >60 [facility] Comment on above: Order Comment: No: D o not add to previous draw Performed By: #### 5 7306, 35333 #### [facility] [address] [place] [address], [place] Glucose [Mass/Vol] 123 mg/dL High 70-100 [facility] Comment on above: Order Comment: No: D o not add to previous draw Performed By: #### 5 7306, 72614 #### [facility] [address] [place] [address], [place] Potassium [Moles/Vol] 4.3 mmol/L Normal 3.5-5.1 [facility] Comment on above: Order Comment: No: D o not add to previous draw Performed By: #### 5 73, 65493 #### [facility] [address] [place] [address], [place] Sodium [Moles/Vol] 139 mmol/L Normal 136-145 [facility] Comment on above: Order Comment: No: D o not add to previous draw Performed By: #### 5 7307, 79676 #### [facility] [address] [place] [address], [place] Urea nitrogen [Mass/Vol] 24 mg/dL Normal 7-25 [facility] Comment on above: Order Comment: No: D o not add to previous draw Performed By: #### 5 73, 93383 #### [facility] [address] CBC COMPLETE BLOOD COUNTon 0 04-11-2021 Erythrocyte distribution width (RBC) [Ratio] 16.8 % High 11.5-15.0 [facility] Comment on above: Order Comment: No: D o not add to previous draw Performed By: #### 5 7307, 83726 #### [facility] [address] [place] [address], [facility] Hematocrit (Bld) [Volume fraction] 29.7 % Low 36.0-45.0 [facility] Comment on above: Order Comment: No: D o not add to previous draw Performed By: #### 5 7307, 18703 #### [facility] [address] Hemoglobin (Bld) [Mass/Vol] 8.9 g/dL Low 12.0-15.0 [facility] Comment on above: Order Comment: No: D o not add to previous draw Performed By: #### 5 73, 86156 #### [facility] [address] [place] [place] [address], [facility] MCH (RBC) [Entitic mass] 25.4 pg Low 27.0-33.0 [facility] Comment on above: Order Comment: No: D o not add to previous draw Performed By: #### 5 7307, 85616 #### [facility] [address] [facility] [place] [address], [facility] MCHC (RBC) [Mass/Vol] 30.0 g/dL Low 32.0-35.0 [facility] Comment on above: Order Comment: No: D o not add to previous draw Performed By: #### 5 7307, 35735 #### [facility] [address] [facility] [place] [address], [facility] MCV (RBC) [Entitic vol] 84.9 fL Normal 82.0-98.0 [facility] Comment on above: Order Comment: No: D o not add to previous draw Performed By: #### 5 7307, 67194 #### [facility] [address] [facility] [place] [address], [facility] Nucleated RBC/100 WBC (Bld) [Ratio] 0 % Normal 0-0 [facility] Comment on above: Order Comment: No: D o not add to previous draw Performed By: #### 5 7307, 56712 #### [facility] [address] [facility] [place] [address], [facility] PLAT CNT 446 10*3/uL High 150-400 [facility] Comment on above: Order Comment: No: D o not add to previous draw Performed By: #### 5 7307, 75805 #### [facility] [address] [facility] [place] [address], [facility] RBC (Bld) [#/Vol] 3.50 10*6/uL Low 3.80-5.00 [facility] [place] Comment on above: Order Comment: No: D o not add to previous draw Performed By: #### 5 7307, 04850 #### [facility] [address] [facility] [place] [address], [facility] WBC (Bld) [#/Vol] 16.54 10*3/uL High 4.00-10.60 [facility] Comment on above: Order Comment: No: D o not add to previous draw Performed By: #### 5 7307, 59402 #### [facility] [address] Cardiovascular Lab Reporton 04-11-2021 Cardiovascular Lab Report [facility] Patient Name: Antonio [facility] S MR #: [id number] Department of Physician: London Rodas M.D. Division of Service Date: 04/11/2021 Cardiology Birthdate: 1970 Adult Cardiovascular Room #: 5AB [id number] [facility] [place] [address] Cardiovascular Laboratory Report PROCEDURE PERFORMED: Transesophageal echocardiogram and cardioversion. INDICATION: Atrial flutter. FELLOW: Dunia Sierra MD PROCEDURE IN DETAIL: Informed consent was obtained from the patient after explaining the indication, risks, benefits, as well as alternatives. The patient understood and agreed, and signed the consent form. The patient was brought to the computer laboratory technician and transesophageal echocardiogram was performed, under [...] Sierra MD Date Trans: 04/11/2021 12:53 P/marixa [id number] cc: Phillip Ann M.D. [address] [id number] Normal [facility] MAGNESIUM BLOODon 04-11-2021 Magnesium [Mass/Vol] 2.3 mg/dL Normal 1.9-2.7 [facility] Comment on above: Order Comment: No: D o not add to previous draw Performed By: #### 5 7307, 77958 #### [facility] [address] [place] [address], [facility] POC GLUCOSE LABon 04-11-2021 Glucose [Mass/Vol] 124 mg/dL High 70-100 [facility] Comment on above: Performed By: #### 5 7307, 25371 #### [facility] [address] TROPONIN-Ion 04-11-2021 Troponin I.cardiac [Mass/Vol] 0.06 ng/mL High 0.00-0.04 [facility] Comment on above: Order Comment: No: D o not add to previous draw Result Comment: REFE RENCE RANGES: 0.00 - 0.04 ng/ml NORMAL 0.05 - 0.50 ng/ml INDETERMINATE > 0.50 ng/ml CONSISTENT WITH AN M.I. Performed By: #### 5 7307, 90117 #### [facility] [address] *BLOOD CULTUREon 04-10-2021 *BLOOD CULTURE Clinical Report: (D) Specimen: BLOOD CULTURE Collected: 04/10/2021 09:50 Status: Final Last Updated: 04/15/2021 11:28 (1) Right hand CULT RES (Final) No Growth Day 5 Normal [facility] Comment on above: Order Comment: No: D o not add to previous draw Performed By: #### 5 7307, 65722 #### [facility] [address] *BLOOD CULTURE Clinical Report: (D) Specimen: BLOOD CULTURE Collected: 04/10/2021 09:50 Status: Final Last Updated: 04/15/2021 11:28 (1) Left hand CULT RES (Final) No Growth Day 5 Normal [facility] Comment on above: Order Comment: No: D o not add to previous draw Performed By: #### 5 7307, 24763 #### [facility] [address] *SARS-CoV-2 COVID-19on 04-10 SARS-CoV-2 (COVID-19) RNA DEIRDRE+probe Ql (Unsp spec) Not detected Normal Not Detected [facility] Comment on above: Order Comment: No: D o not add to previous draw Performed By: #### 5 7307, 02992 #### [facility] [address] [place] [address], [facility] APTTon 04-10-2021 aPTT Coag (Bld) [Time] 23.4 s Low 25.0-35.0 [facility] Comment on above: Order Comment: No: [...] THIS PURPOSE. Performed By: #### 5 7307, 42517 #### [facility] [address] [place] [address], [facility] aPTT Coag (Bld) [Time] 23.2 s Low 25.0-35.0 [facility] Comment on above: Order Comment: [...] THIS PURPOSE. Performed By: #### 5 7307, 62321 #### [facility] [address] [facility] [address] BASIC METABOLIC PANELon 03-20 Calcium [Mass/Vol] 8.6 mg/dL Normal 8.6-10.3 [facility] Comment on above: Order Comment: No: D o not add to previous draw Performed By: #### 1 0070, 27773, 45845 #### [facility] [address] [place] [address], [facility] Chloride [Moles/Vol] 99 mmol/L Normal 98-107 [facility] Comment on above: Order Comment: No: D o not add to previous draw Performed By: #### 1 0, 38881, 38029 #### [facility] [address] [place] [address], [place] CO2 [Moles/Vol] 32 mmol/L High 21-31 [facility] Comment on above: Order Comment: No: D o not add to previous draw Performed By: #### 1 0, 65082, 64859 #### [facility] [address] [place] [address], [place] Creatinine [Mass/Vol] 0.84 mg/dL Normal 0.60-1.20 [facility] Comment on above: Order Comment: No: D o not add to previous draw Performed By: #### 1 69, 27083, 60777 #### [facility] [address] [place] [address], [place] GFR/1.73 sq M.predicted among blacks MDRD (S/P/Bld) [Vol rate/Area] mL/min/{1.73_m2} Normal >60 [facility] Comment on above: Order Comment: No: D o not add to previous draw Performed By: #### 1 69, 45275, 11931 #### [facility] [address] [place] [address], [place] GFR/1.73 sq M.predicted among non-blacks MDRD (S/P/Bld) [Vol rate/Area] mL/min/{1.73_m2} Normal >60 [facility] Comment on above: Order Comment: No: D o not add to previous draw Performed By: #### 1 0, 12533, 71144 #### [facility] [address] [place] [address], [place] Glucose [Mass/Vol] 117 mg/dL High 70-100 [facility] Comment on above: Order Comment: No: D o not add to previous draw Performed By: #### 1 69, 94625, 78138 #### [facility] [address] [place] [address], [facility] Potassium [Moles/Vol] 3.9 mmol/L Normal 3.5-5.1 [facility] Comment on above: Order Comment: No: D o not add to previous draw Performed By: #### 1 0070, 70228, 88285 #### [facility] [address] [place] [address], [facility] Sodium [Moles/Vol] 139 mmol/L Normal 136-145 [facility] Comment on above: Order Comment: No: D o not add to previous draw Performed By: #### 1 0070, 25197, 69221 #### [facility] [address] [place] [address], [facility] Urea nitrogen [Mass/Vol] 19 mg/dL Normal 7-25 [facility] Comment on above: Order Comment: No: D o not add to previous draw Performed By: #### 1 0070, 04621, 97801 #### [facility] [address] BNP (B-TYPE NATRIURETIC PEPT MARILYN)on 04-10-2021 Natriuretic peptide B (Bld) [Mass/Vol] 259 pg/mL High 0-100 [facility] Comment on above: Order Comment: No: D o not add to previous draw Result Comment: Give n the appropriate clinical setting a BNP result of >100 pg/mL indicates congestive heart failure. Performed By: #### 5 7307, 42138 #### [facility] [address] [place] [address], [facility] CBC W/DIFFon 04-10-2021 ABS IMM GRANS 1.1 10*3/uL High 0.0-0.2 [facility] Comment on above: Performed By: #### 5 0103 #### [facility] [address] [place] [address], [place] ABS NEUTROPHILS 9.6 10*3/uL High 1.6-7.6 [facility] Comment on above: Performed By: #### 5 0103 #### [facility] [address] ANISO MODERATE Normal [facility] Comment on above: Performed By: #### 5 0103 #### [facility] [address] [facility] [place] [address], [facility] Basophils (Bld) [#/Vol] 0.1 10*3/uL Normal 0.0-0.2 [facility] Comment on above: Performed By: #### 5 0103 #### [facility] [address] Basophils/100 WBC (Bld) 0.7 % Normal 0.0-1.0 [facility] Comment on above: Performed By: #### 5 0103 #### [facility] [address] [place] [address], [facility] Eosinophils (Bld) [#/Vol] 0.1 10*3/uL Normal 0.0-0.5 [facility] Comment on above: Performed By: #### 5 0103 #### [facility] [address] [place] [address], [facility] Eosinophils/100 WBC (Bld) 0.4 % Normal 0.0-6.0 [facility] Comment on above: Performed By: #### 5 0103 #### [facility] [address] Erythrocyte distribution width (RBC) [Ratio] 16.5 % High 11.5-15.0 [facility] Comment on above: Performed By: #### 5 3 #### [facility] [address] Hematocrit (Bld) [Volume fraction] 31.2 % Low 36.0-45.0 [facility] Comment on above: Performed By: #### 5 3 #### [facility] [address] Hemoglobin (Bld) [Mass/Vol] 9.0 g/dL Low 12.0-15.0 [facility] Comment on above: Performed By: #### 5 3 #### [facility] [address] HYPO SLIGHT Normal [facility] Comment on above: Performed By: #### 3 #### [facility] [address] IMMATURE GRANS 6.8 % High 0.0-1.0 [facility] Comment on above: Performed By: #### 5 102 #### [facility] [address] Lymphocytes (Bld) [#/Vol] 4.4 10*3/uL High 1.2-4.0 [facility] Comment on above: Performed By: #### 5 3 #### [facility] [address] Lymphocytes/100 WBC (Bld) 26.4 % Normal 20.0-45.0 [facility] Comment on above: Performed By: #### 5 3 #### [facility] [address] MCH (RBC) [Entitic mass] 25.3 pg Low 27.0-33.0 [facility] Comment on above: Performed By: #### 5 3 #### [facility] [address] MCHC (RBC) [Mass/Vol] 28.8 g/dL Low 32.0-35.0 [facility] Comment on above: Performed By: #### 5 3 #### [facility] [address] [facility] [place] [address], [facility] MCV (RBC) [Entitic vol] 87.6 fL Normal 82.0-98.0 [facility] Comment on above: Performed By: #### 5 3 #### [facility] [address] [facility] [address], [facility] Monocytes (Bld) [#/Vol] 1.3 10*3/uL High 0.1-1.0 [facility] Comment on above: Performed By: #### 102 #### [facility] [address] [facility] [place] [address], [facility] MONOS 7.6 % Normal 5.0-12.0 [facility] Comment on above: Performed By: #### 102 #### [facility] [address] [facility] [place] [address], [facility] Neutrophils/100 WBC (Bld) 58.1 % Normal 40.0-72.0 [facility] Comment on above: Performed By: #### 102 #### [facility] [address] [facility] [place] [address], [facility] Nucleated RBC/100 WBC (Bld) [Ratio] 1 % High 0-0 [facility] Comment on above: Performed By: #### 3 #### [facility] [address] [facility] [place] [address], [facility] PLAT CNT 483 10*3/uL High 150-400 [facility] Comment on above: Performed By: #### 3 #### [facility] [address] [facility] [place] [address], [facility] POIK SLIGHT Normal [facility] Comment on above: Performed By: #### 3 #### [facility] [address] [place] [address], [facility] POLY SLIGHT Normal [facility] Comment on above: Performed By: #### 5 0103 #### [facility] [address] [place] [address], [facility] RBC (Bld) [#/Vol] 3.56 10*6/uL Low 3.80-5.00 [facility] [place] Comment on above: Performed By: #### 5 0103 #### [facility] [address] [place] [address], [facility] WBC (Bld) [#/Vol] 16.54 10*3/uL High 4.00-10.60 [facility] Comment on above: Performed By: #### 5 0103 #### [facility] [address] [facility]. [address] LIPID PROFILEon 04-10-2021 Cholesterol [Mass/Vol] 161 mg/dL Normal 120-200 [facility] Comment on above: Result Comment: CHOL ESTEROL REFERENCE RANGE: 20 YEARS AND OLDER CARDIOVASCULAR RISK Less than 200 mg/dl Low Risk 200 to 239 mg/dl Borderline Risk 240 mg/dl and greater High Risk Performed By: #### 3 1569, 29595, 55550 #### [facility] [address] [facility]. [address] Cholesterol in HDL [Mass/Vol] 61 mg/dL Normal 23-92 [facility] Comment on above: Result Comment: Slig ht variation in normal range could be due to gender and/or age. HDL CHOLESTEROL REFERENCE RANGE: 20 years and older Cardiovascular Risk > or =60 mg/dL Desirable 40 TO 59 mg/dL Low Risk <40 mg/dL High Risk Performed By: #### 3 1569, 48557, 11406 #### [facility] [address] [facility] [place] [address], [facility] Cholesterol in LDL [Mass/Vol] 28 mg/dL Normal 0-130 [facility] Comment on above: Result Comment: LDL IS A CALCULATION LDL IS ONLY VALID IF THE TRIG IS LESS THAN 400. Performed By: #### 3 1569, 14411, 34140 #### [facility] [address] [place] [address], [facility] Cholesterol.total/Ch olesterol in HDL [Mass ratio] 2.6 {ratio} Normal .0-4.5 [facility] Comment on above: Performed By: #### 3 1569, 51250, 43716 #### [facility] [address] [place] [address], [facility] NON-HDL CHOLESTEROL 100 mg/dL Normal [facility] [place] Comment on above: Performed By: #### 3 1569, 74922, 37099 #### [facility] [address] [place] [address], [facility] Triglyceride [Mass/Vol] 362 mg/dL High 40-149 [facility] Comment on above: Result Comment: TRIG LYCERIDE REFERENCE RANGE: 20 YEARS AND OLDER CARDIOVASCULAR RISK LESS THAN 150 mg/dl LOW RISK 150 TO 199 mg/dl BORDERLINE RISK 200 mg/dl AND GREATER HIGH RISK Performed By: #### 3 1569, 04747, 83411 #### [facility] [address] [facility] [place] [address], [facility] VLDL CHOL 72 mg/dL High 0-40 [facility] Comment on above: Performed By: #### 3 1569, 66045, 98785 #### [facility] [address] [place] [address], [facility] MAGNESIUM BLOODon 04-10-2021 Magnesium [Mass/Vol] 2.4 mg/dL Normal 1.9-2.7 [facility] Comment on above: Order Comment: No: D o not add to previous draw Performed By: #### 1 0070, 22451, 58676 #### [facility] [address] [place] [address], [facility] POC GLUCOSE LABon 04-10-2021 Glucose [Mass/Vol] 350 mg/dL High 70-100 [facility] Comment on above: Performed By: #### 5 7307, 42580 #### [facility] [address] [place] [address], [facility] Glucose [Mass/Vol] 249 mg/dL High 70-100 [facility] Comment on above: Performed By: #### 5 7307, 90074 #### [facility] [address] [place] [address], [facility] PROCALCITONINon 04-10-2021 PROCALCITONIN 0.09 ng/mL Normal 0.00-0.10 [facility] Comment on above: Order Comment: No: D [...] initial PCT<0.5ng/mL Performed By: #### 5 7307, 75553 #### [facility] [address] [place] [address], [facility] PROTHROMBIN TIMEon 1 INR Coag (PPP) [Relative time] 1.07 {INR} Normal 0.91-1.16 [facility] Comment on above: Order Comment: No: [...] CHEST 1995;[id number]. Performed By: #### 5 7307, 29050 #### [facility] [address] [place] [address], [facility] PT Coag (PPP) [Time] 13.9 s Normal 12.3-14.8 [facility] Comment on above: Order Comment: No: D o not add to previous draw Result Comment: ALL RESULTS MUST BE INTERPRETED WITH RESPECT TO BLOOD DRAWING ARTIFACT OR DILUTION ERROR OF ANTICOAGULANT AT THE TIME OF SAMPLING. Performed By: #### 5 7307, 34476 #### [facility] [address] [place] [id number], [facility] TROPONIN-Ion 04-10-2021 Troponin I.cardiac [Mass/Vol] 0.07 ng/mL High 0.00-0.04 [facility] Comment on above: Order Comment: No: D o not add to previous draw Result Comment: REFE RENCE RANGES: 0.00 - 0.04 ng/ml NORMAL 0.05 - 0.50 ng/ml INDETERMINATE > 0.50 ng/ml CONSISTENT WITH AN M.I. Performed By: #### 3 1569, 48292, 30908 #### [facility] [address] [facility]. [address] Troponin I.cardiac [Mass/Vol] 0.07 ng/mL High 0.00-0.04 [facility] Comment on above: Order Comment: No: D o not add to previous draw Result Comment: REFE RENCE RANGES: 0.00 - 0.04 ng/ml NORMAL 0.05 - 0.50 ng/ml INDETERMINATE > 0.50 ng/ml CONSISTENT WITH AN M.I. Performed By: #### 1 0070, 57957, 01965 #### [facility] [address] TSH3 WITH REFLEX FT4on 04-10 TSH 3RD GENERATION 0.95 uIU/mL Normal 0.34-5.60 The [facility] Comment on above: Order Comment: Yes: Add to Previous draw if able Performed By: #### 3 1569 #### [facility] [address] [facility]. [address] TSH 3RD GENERATION 3.12 uIU/mL Normal 0.34-5.60 [facility] Comment on above: Performed By: #### 3 1569, 41380, 01363 #### [facility] [address] [facility]. [address] UFH HEPARIN ASSAYon 04-10-20 21 UNFRACTIONATED HEPARIN >1.00 Critically high 0.30-0.70 [facility] Comment on above: Result Comment: Resu lt checked and called. Accurately read back by Haven Avila RN at 1122 per RN patient may have previously been given Eliquis. UFH = 1.36 for pharmacy use Rivaroxaban and Apixaban will interfere with the anti Xa assay used to monitor UFH and LMWH. Performed By: #### 5 7307, 77727 #### [facility] [address] [facility]. [place] [id number], [facility] Cardiovascular Lab Reporton 01-30-2021 Cardiovascular Lab Report [facility] Patient Name: Diana Alvarez [facility] S MR #: [id number] Department of Physician: London Ross M.D. Division of Service Date: 01/30/2021 Cardiology Birthdate: 1970 Adult Cardiovascular Room #: [facility] [address] [place], [place] [address] Cardiovascular Laboratory Report FINAL IMPRESSIONS: 1. Moderately [...] 5. Follow up with Cardiology in the [facility] Cardiology office in the next 2 [...] right internal jugular vein was obtained. A 6-Nepali glide sheath was inserted without difficulty. A [...] Bear M.D. Date Trans: 01/30/2021 02:48 P/marixa [id number] cc: Phillip Ann M.D. [address] [facility] [address] [place] [facility] Vital Signs Date Time Vital Sign Value Performing Clinician Iman stafford 09-15-2022 15:24-0500 Blood Pressure Location IR [facility] [place] 09-15-2022 15:24-0500 Diastolic blood pressure 78 mm[Hg] Juan Miguel OSHEAL [facility] [place] 09-15-2022 15:24-0500 Heart rate 70 /min Juan Miguel [employer] [facility] [place] 09-15-2022 15:24-0500 Respiratory rate 16 /min Juan Miguel OSHEAL [facility] 09-15-2022 15:24-0500 Systolic blood pressure 116 mm[Hg] Juan Miguel OSHEAKiveda [facility] Encounters Encounter Date Encounter Type Care Provider Facility Start: 04-17-2024 ambulatory BESSIE MORRISSEY [facility] Start: 04-13-2024 End: 04-13-2024 ambulatory JENNA HENDERSON [facility] Start: 04-13-2024 End: 04-13-2024 Encounter for other preprocedural examination [facility] Start: 04-04-2024 End: 04-04-2024 ambulatory Juan Miguel CHAVEZ Facility:[facility] Start: 01-11-2024 ambulatory [facility] Start: 12-28-2023 ambulatory [facility] Start: 10-26-2023 End: 10-26-2023 ambulatory [facility] Start: 05-05-2023 End: 05-05-2023 ambulatory STACY [facility] Start: 11-17-2022 End: 11-17-2022 ambulatory EMIYL ZHONG . Facility:[facility] Start: 10-28-2022 End: 10-28-[address] PHILLIP ANN . Facility:[facility] Start: 09-24-2022 End: 09-24-[address] PHILLIP ANN . Facility:[facility] Start: 09-15-2022 End: 09-15-2022 Patient encounter procedure Juan Miguel CHAVEZ [facility] [place] M [facility] Start: 09-09-2022 End: 09-10-2022 ambulatory [...] Evaluation and management of inpatient PHILLIP ANN Facility:[facility] Start: 01-30-2021 End: 01-31-2021 ambulatory EHAB Richie BEAR Facility:[facility] Procedures Date Procedure Procedure Detail Performing Clinician Start: 04-11-2021 [facility] of Cardi ac Rhythm, Single SAMER Sony TORRES Start: 04-11-2021 ULTRASONOGRAPHY OF H EART WITH AORTA, TRANSESOPHAGEAL ABDELMONIEM MOUSTAFA section Juan Miguel DAYO L section Juan Miguel Valerio Endoscopy of nose Juan Miguel LAUREL MONTEZ Excision of cyst of breast Chiquis bates BRAD History of radiofreq uency ablation operation for arrhythmia Juan Miguel CHAVEZ Implantation of inse rtable loop recorder Juan Miguel CHAVEZ Ligation of fallopian tube Chiquis bates BRAD Plan of Treatment Date Care Activity Detail Author Start: 12-02-2022 ambulatory Ambulatory Facility: 1 Immunizations Immunization Date Immunization Notes Care Provider Fa [facility] 04-18-2022 influenza virus vaccine, unspecified formulation Juan Miguel CHAVEZ [facility] [place] 10-29-2020 SARS-CoV-2 (COVID-19 ) mRNA-1273 vaccine Juan Miguel CHAVEZ [facility] [place] 10-25-2020 SARS-CoV-2 (COVID-19 ) mRNA BNT-162b2 vax Juan Miguel CHAVEZ [facility] [place] Comment on above: Result Comment: 2022: [id number] 10-24-2020 SARS-CoV-2 (COVID-19 ) mRNA BNT-162b2 vax Juan Miguel CHAVEZ [facility] 10-04-2020 SARS-CoV-2 (COVID-19 ) mRNA BNT-162b2 vax Juan Miguel CHAVEZ [facility] [place] Comment on above: Result Comment: 2022: TPV50 10-03-2020 SARS-CoV-2 (COVID-19 ) mRNA BNT-162b2 bebeto CHAVEZ [facility] Payers Date Payer Category Payer Unknown [id number] 1970 Unknown [id number] 2.16.8 [id number] 1970 Unknown [id number] 2.16.8 [id number] 1970 Unknown [id number] 2.16.84 0.1.720076.3.579.2.593 1970 Unknown [id number] 2.16.84 0.1.404055.3.579.2.593 1970 Unknown [id number] 2.16.84 0.1.953349.3.579.2.593 1970 Unknown [id number] 2.16.84 0.1.065019.3.579.2.593 1970 Unknown [id number] 2.16.84 0.1.113852.3.579.2.593 1970 Unknown [id number] 2.16.84 0.1.263854.3.579.2.593 1970 Unknown [id number] 2.16.84 0.1.614969.3.579.2.593 1968 Unknown [id number] 2.16.84 0.1.509806.3.579.2.593 1970 Unknown [id number] 2.16.84 0.1.524227.3.579.2.593 1968 Unknown [id number] 2.16.84 0.1.510711.3.579.2.593 1970 Unknown [id number] 2.16.84 0.1.603878.3.579.2.593 1968 Unknown [id number] 2.16.84 0.1.177731.3.579.2.593 1968 Unknown [id number] 2.16.84 0.1.987968.3.579.2.593 1970 Unknown [id number] 2.16.8 40.1.713345.3.579.2.727 1961 Unknown [id number] 1961 Unknown [id number] 1961 Unknown [id number] 1961 Unknown [id number] Social History Date Type Detail Facility Start: 09-15-2022 Tobacco smoking status Ex-smoker (fi nding) [facility] [place] Tobacco smoking status Never [facility] [place] Sex Assigned At Female [facility] Medical Equipment Procedure Code Equipment Code Equipment Origin al Text Equipment Identifier Dates lancets, glucome ter, alcohol swabs, testing strips, insulin pen needles, Print Requisition, Supply Start: 08-25-2021 Functional Status Date Assessment Result Facility 09-15-2022 Functional Status N/A [facility] Clinical Notes 04-12-2021 to 04-13-2024 Note Date & Type Note Facility 04-13-2024 Note Patient here for 6 m o follow up atrial flutter, cardiomyopathy, and CHF. She needs cleared for upcoming EGD and colonoscopy with Dr. Chavez. Had labs and CXR last week. C/o new SAXENA the past few days but thinks she has a cold. Review of Systems Cardiovascular: Positive for dyspnea on exertion. Respiratory: Positive for cough. Musculoskeletal: Positive for joint pain, joint swelling and myalgias. Neurological: Positive for headaches and vertigo. All other systems reviewed and are negative. [facility] 04-13-2024 Note Cardiovascular Medic [facility] SUBJECTIVE Chief Complaint Patient presents with Pre-op Exam Atrial Fibrillation Hypertension Diana Alvarez is a 53 y.o. female here for follow-up. HPI PMHx: a.flutter/fib s/p loop implant 07/2021, s/p flutter ablation 08/18/2021, HFpEF, pericardial effusion noted since 2018, HTN, COPD, DM, HLD Hx LILLIANA - cannot tolerate CPAP 04/13/2024 She is pending an EGD/colonoscopy for evaluation for blood in her stool. She c/o fatigue. She has dizziness when standing or up and moving around. Gets better sitting down or getting something to eat. BP at home running 110-130s/70s. She is down from 203lbs to 169lbs. 10/26/2023 She had gained weight, 25lbs but [...] trended upwards is a since seen in [place] [facility] 04/28/2023 and was diagnosed with vertigo [...] 04/10/2021 atrial flutter 08/18/2021 shows atrial fibrillation --------- 07/[address] martinez HPI: Patient here [...] failure (CMS/HCC) Chronic obstructive pulmonary disease (CMS/HCC) C (more content not included)... [facility] 04-04-2024 Note General Surgery Offi ce/Clinic Note [...] Diabetes Diverticulosis Ep (more content not included)... [facility] Comment on above: Result Comment: Elec tronically Signed By: BRAD DIAZ, Juan Miguel Rivera\Date and Time Signed: 04/04/24 17:16 EDT 10-26-2023 Note Cardiovascular Medic [facility] SUBJECTIVE Chief Complaint Patient presents with [...] trended upwards is a since seen in [facility] 04/28/2023 and was diagnosed with [...] 04/10/2021 atrial flutter 08/18/2021 shows atrial fibrillation --------- 07/[address] martinez HPI: Patient here [...] (paroxysmal atrial fi (more content not included)... [facility] 10-26-2023 Note Patient here for 6 m [...] All other systems reviewed and are negative. [facility] 05-05-2023 Note MD Cardiology Consul t Note Reason for visit: [...] trended upwards is a since seen in [place] [facility] 04/28/2023 and was diagnosed with vertigo [...] 04/10/2021 atrial flutter 08/18/2021 shows atrial fibrillation --------- 07/[address] martinez HPI: Patient here [...] Take 1 table (more content not included)... [facility] 05-05-2023 Note Patient here for 3 m [...] All other systems reviewed and are negative. [facility] 11-17-2022 Note PROCEDURE: XR CHEST 1 V [...] AUDREY BO Date: 2022-11-17 12:14 [facility] 04-12-2021 Note MR#: [id number] [facility] Pt. Name: Diana Alvarez Admitted: 04/10/2021 Discharged: 04/11/2021 Date of : 1970 Physician: Albert Wick MD DISCHARGE SUMMARY PRIMARY DIAGNOSIS: New-onset atrial flutter with RVR. SECONDARY DIAGNOSES: 1. Pulmonary hypertension. 2. COPD. 3. Diabetes. HISTORY OF PRESENT ILLNESS: This patient is a 50-year-old female with past medical history of COPD, hypertension, and diabetes, who was sent from [facility] due to atrial flutter with RVR due to COPD exacerbation. The patient was initially treated with IV Cardizem, however, it was changed to p.o. prior to transfer. The patient was also given loading dose digoxin. The patient was transferred to [facility] for cardioversion. HOSPITAL COURSE: 1. New-onset [...] by: Albert Wick MD 04/15/2021 08:24 A Albert Wick MD Date Dict: 04/12/2021/03:07 P/Albert Wick MD Date Trans: 04/12/2021 03:25 P/marixa [id number] cc: Phillip Ann M.D. [address], [facility] [address] [facility] Evaluation + Plan note No data available for this section General Surgery [facility] Discharge instructions No data available for this section [facility] [place] Progress note No data available for this section [facility] [place] Summary Purpose Family History No Family History Records FoundNo Family History Records FoundNo Family History Records FoundNo Family History Records FoundNo Family History Records Found Advance Directives No Advanced Directives Records FoundNo Advanced Directives Records FoundNo Advanced Directives Records FoundNo Advanced Directives Records FoundNo Advanced Directives Records Found Additional Source Comments INFORMATION SOURCE (unrecogn ized section and content) DATE CREATED AUTHOR 09/10/2021 [facility] DATE CREATED AUTHOR AUTHOR'S ORGANIZ ATION 12/24/2021 [facility] DATE CREATED AUTHOR AUTHOR'S ORGANIZ ATION 11/20/2022 [facility] DATE CREATED AUTHOR AUTHOR'S ORGANIZ ATION 04/06/2024 [facility] DATE CREATED AUTHOR AUTHOR'S ORGANIZ ATION 04/18/2024 [facility] Patient Care team emani garcai (unrecognized section and content) Personnel Name: Phillip Ann MD Address: Address: [address] [place] [address] FOR RECORDS PERTAINING TO PATIENTS WHO ARE [...] BE BASED ON THE PRIMARY CLINICAL RECORDS. [employer] provides no warranty or guarantee of the accuracy or completeness of information in this document.
[2024-04-19 07:55] VITALS: BMI 31.5
[2024-04-19] MEDS: LACTATED RINGER'S SOLUTION 1,000 ML 50 ML IV (08:23)
[2024-04-19 09:29] VITALS: BP 97/66; PULSE 72; TEMP 36.4; O2SAT 98
[2024-04-19 09:44] VITALS: BP 127/78; PULSE 66; O2SAT 97
[2024-04-19 10:00] VITALS: BP 106/67; PULSE 67; O2SAT 98
== END 2024-04-19 10:00 | disposition home or self-care (01) ==
PROVIDERS: PCP Family Medicine; Visit Provider Surgery
PROC: (CPT 813; principal; 2024-04-19 08:50)
DX: R10.11 Right upper quadrant pain (principal); R19.5 Other fecal abnormalities; R10.13 Epigastric pain; K44.9 Diaphragmatic hernia without obstruction or gangrene; K57.30 Diverticulosis of large intestine without perforation or abscess without bleeding; I48.0 Paroxysmal atrial fibrillation; Z79.01 Long term (current) use of anticoagulants; E11.9 Type 2 diabetes mellitus without complications; E78.5 Hyperlipidemia, unspecified; J44.9 Chronic obstructive pulmonary disease, unspecified; I27.20 Pulmonary hypertension, unspecified; G47.33 Obstructive sleep apnea (adult) (pediatric); R11.0 Nausea; R14.0 Abdominal distension (gaseous); K80.20 Calculus of gallbladder without cholecystitis without obstruction; R10.84 Generalized abdominal pain; Z79.84 Long term (current) use of oral hypoglycemic drugs; I11.0 Hypertensive heart disease with heart failure; I35.0 Nonrheumatic aortic (valve) stenosis; I50.32 Chronic diastolic (congestive) heart failure
CPT/HCPCS: 43235; 45378; J2704

== ENCOUNTER 2024-06-24 10:02 | Emergency (ER) | payer OTHER, SELFPAY ==
[2024-06-24 10:09] VITALS: BP 122/69; PULSE 78; TEMP 36.5; O2SAT 98; BMI 28.7
--- NOTE | 2024-06-24 10:14 | XR_ITS ---
The [address] [address] Patient Name: LEIGHANN TALAMANTES MRN: [id number] date: 1970 Sex: F Assigned Patient Location: ER Current Patient Location: Accession/Order Number: [id number] Exam Date: 06/24/2024 10:30 Report Date: 06/24/2024 11:29 At the request of: AMRIK LOVE Procedure: XR chest 1V EXAM: XR chest 1V HISTORY: cough COMPARISON: 04/05/2024 TECHNIQUE: Chest X-ray AP, 1 view FINDINGS: Support devices: None. Lungs/pleura: No consolidation, effusion, or pneumothorax. Heart and mediastinum: Normal contours. Bones: No acute abnormality identified. XR/XR chest 1V Impression: No radiographic evidence of acute cardiopulmonary process. Electronically authenticated by: BAMBI SIMMONS Date: 06/24/2024 11:29
--- NOTE | 2024-06-24 10:18 | ED.URI1 ---
HPI - URI/Sore Throat General Chief Complaint: Upper Respiratory Infection Stated Complaint: COUGH Time Seen by Provider: 06/24/24 10:14 Source: patient Limitations: no limitations History of Present Illness HPI Narrative: 53-year-old female presents to the emergency department for cough. She has had it for a week and is coughing up some thick brown phlegm. She just was not getting better so she came in here to get checked. She has not had a fever or hemoptysis. She quit smoking 8 years ago. Related Data Home Medications ?Medication ?Instructions ?Recorded ?Confirmed albuterol sulfate 90 mcg/actuation 2 puff inhalation Q4H PRN wheezing 04/18/23 04/19/24 aerosol inhaler (Ventolin HFA) apixaban 5 mg tablet (Eliquis) 5 mg PO BID 04/18/23 04/19/24 diltiazem HCl 240 mg 240 mg PO Q24H 04/18/23 04/19/24 capsule,extended release 24 hr ezetimibe 10 mg tablet 10 mg PO DAILY 04/18/23 04/19/24 ferrous sulfate 325 mg (65 mg 325 mg PO BID 04/18/23 04/19/24 iron) tablet furosemide 40 mg tablet 40 mg PO DAILY 04/18/23 04/19/24 isosorbide mononitrate 30 mg 30 mg PO DAILY 04/18/23 04/19/24 tablet,extended release 24 hr metformin 500 mg tablet 500 mg PO DAILY 04/18/23 04/19/24 pantoprazole 40 mg tablet,delayed 40 mg PO DAILY 04/18/23 04/19/24 release potassium chloride 20 mEq 20 meq PO BID 04/18/23 04/19/24 tablet,extended release rosuvastatin 5 mg tablet 5 mg PO DAILY 04/18/23 04/19/24 metoprolol succinate 25 mg 50 mg PO DAILY 04/28/23 04/19/24 tablet,extended release 24 hr cholecalciferol (vitamin D3) 50 50 mcg PO DAILY 11/18/23 04/19/24 mcg (2,000 unit) capsule lisinopril 5 mg tablet 5 mg PO DAILY 01/28/24 04/19/24 allopurinol 100 mg tablet 100 mg PO DAILY 04/05/24 04/19/24 ropinirole 0.5 mg tablet 0.5 mg PO DAILY 04/05/24 04/19/24 colchicine 0.6 mg tablet 0.6 mg PO DAILY PRN gout 04/13/24 04/19/24 semaglutide 2 mg/dose (8 mg/3 mL) 2 mg subcut DAILY 04/13/24 04/19/24 subcutaneous pen injector (Ozempic) Previous Rx's ?Medication ?Instructions ?Recorded acetaminophen 325 mg capsule 650 mg (2 x 325 mg) PO .q8 PRN 04/18/23 (Tylenol) pain #20 caps ondansetron 4 mg disintegrating 4 mg PO Q6H PRN nausea and 11/19/23 tablet vomiting #20 tabs hyoscyamine sulfate 0.125 mg 0.125 mg PO Q6H PRN abdominal pain 11/23/23 tablet (Levsin) #12 tabs azithromycin 250 mg tablet See Rx Instructions PO .COMPLEX #6 06/24/24 (Zithromax Z-Derek) tabs benzonatate 100 mg capsule 100 mg PO TID PRN cough #20 caps 06/24/24 skibeaygkc-iwxnuzmbaofbc-zavxfged 1 cap PO Q6H PRN pain 5 days #20 06/24/24 50 mg-300 mg-40 mg capsule caps (Fioricet) Allergies Allergy/AdvReac Type Severity Reaction Status Date / Time morphine Allergy Intermediate Palpitation Verified 01/28/24 22:13 s Review of Systems ROS Narrative A ten point review of systems is negative except as noted above. [facility] Medical History (Updated 06/24/24 @ 11:00 by Gerry Rocha MD) Pulmonary hypertension ?I27.20 - Pulmonary hypertension, unspecified (ICD-10) Pericardial effusion ?I31.39 - Other pericardial effusion (noninflammatory) (ICD-10) Paroxysmal atrial fibrillation ?I48.0 - Paroxysmal atrial fibrillation (ICD-10) Nausea ?R11.0 - Nausea (ICD-10) Mild aortic stenosis ?I35.0 - Nonrheumatic aortic (valve) stenosis (ICD-10) Insomnia ?G47.00 - Insomnia, unspecified (ICD-10) Irritable bowel syndrome ?K58.9 - Irritable bowel syndrome without diarrhea (ICD-10) Hypertriglyceridemia ?E78.1 - Pure hyperglyceridemia (ICD-10) Hypercholesterolemia ?E78.00 - Pure hypercholesterolemia, unspecified (ICD-10) Hypertension ?I10 - Essential (primary) hypertension (ICD-10) Fibrocystic breast disease ?N60.19 - Diffuse cystic mastopathy of unspecified breast (ICD-10) Epigastric pain ?R10.13 - Epigastric pain (ICD-10) Diverticulosis ?K57.90 - Diverticulosis of intestine, part unspecified, without perforation or abscess without bleeding (ICD-10) Cystic kidney disease ?Q61.9 - Cystic kidney disease, unspecified (ICD-10) Chronic diastolic heart failure ?I50.32 - Chronic diastolic (congestive) heart failure (ICD-10) Cholelithiasis ?K80.20 - Calculus of gallbladder without cholecystitis without obstruction (ICD-10) Cervical disc disease ?M50.90 - Cervical disc disorder, unspecified, unspecified cervical region (ICD-10) Abdominal pain ?R10.9 - Unspecified abdominal pain (ICD-10) Abdominal bloating ?R14.0 - Abdominal distension (gaseous) (ICD-10) Back pain ?M54.9 - Dorsalgia, unspecified (ICD-10) Arthritis ?M19.90 - Unspecified osteoarthritis, unspecified site (ICD-10) Anemia ?D64.9 - Anemia, unspecified (ICD-10) Depression ?F32.A - Depression, unspecified (ICD-10) Panic attacks ?F41.0 - Panic disorder [episodic paroxysmal anxiety] (ICD-10) RUQ pain ?R10.11 - Right upper quadrant pain (ICD-10) Sleep apnea ?G47.30 - Sleep apnea, unspecified (ICD-10) Chronic obstructive pulmonary disease ?J44.9 - Chronic obstructive pulmonary disease, unspecified (ICD-10) Asthma ?J45.909 - Unspecified asthma, uncomplicated (ICD-10) COVID-19 ?U07.1 - COVID-19 (ICD-10) Positive colorectal cancer screening using Cologuard test ?R19.5 - Other fecal abnormalities (ICD-10) Dyspnea on exertion ?R06.09 - Other forms of dyspnea (ICD-10) Extremity edema ?R60.0 - Localized edema (ICD-10) Congestive heart failure (CHF) ?I50.9 - Heart failure, unspecified (ICD-10) Pericarditis ?I31.9 - Disease of pericardium, unspecified (ICD-10) Atrial flutter ?I48.92 - Unspecified atrial flutter (ICD-10) Atrial fibrillation ?I48.91 - Unspecified atrial fibrillation (ICD-10) Diabetes ?E11.9 - Type 2 diabetes mellitus without complications (ICD-10) Gout ?M10.9 - Gout, unspecified (ICD-10) Nasal congestion ?R09.81 - Nasal congestion (ICD-10) Breast cyst ?N60.09 - Solitary cyst of unspecified breast (ICD-10) Implantable loop recorder present ?Z95.818 - Presence of other cardiac implants and grafts (ICD-10) Surgical History (Updated 04/13/24 @ 09:03 by Martina Muñiz NP) H/O removal of cyst ?Z98.890 - Other specified postprocedural states (ICD-10) History of colonoscopy ?Z98.890 - Other specified postprocedural states (ICD-10) History of tubal ligation ?Z98.51 - Tubal ligation status (ICD-10) History of cardiac radiofrequency ablation ?Z98.890 - Other specified postprocedural states (ICD-10) History of section ?Z98.891 - History of uterine scar from previous surgery (ICD-10) Family History (Updated 04/13/24 @ 08:57 by Martina Muñiz NP) Other Family history of breast cancer Family history of diabetes mellitus Family history of heart disease Family history of hypertension Family history of myocardial infarction Family history of renal failure Family history of stroke Social History (Updated 04/13/24 @ 08:47 by Martina Muñiz NP) Within the past year, how often did you have a drink containing alcohol: monthly or less Smoking status: Former smoker Non-prescribed substance use: denies use 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 General: The patient appears in no apparent distress. Skin: Warm, dry, no pallor noted. There is no rash noted. Head: Normocephalic, atraumatic Eye: Normal conjunctiva, no drainage Ears, Nose, Mouth, and Throat: oral mucosa is moist. Nares patent. Cardiovascular: Regular Rate and Rhythm Respiratory: Patient is in no distress, no accessory muscle use, lungs are clear to auscultation, no wheezing, rales or rhonchi. Good air movement present. Back: non-tender GI: Soft and nontender Musculoskeletal: The patient has no evidence of calf tenderness, no pitting edema, symmetrical pulses noted bilaterally Neurological: A&O, normal speech Psychiatric: Cooperative Constitutional Vital Signs, click to edit/add: Last Vital Signs Temp 97.7 F 06/24/24 10:09 Pulse 78 06/24/24 10:09 Resp 20 06/24/24 10:09 BP 122/69 06/24/24 10:09 Pulse Ox 98 06/24/24 10:09 Course Vital Signs Vital signs: Vital Signs Temperature 97.7 F 06/24/24 10:09 Pulse Rate 78 06/24/24 10:09 Respiratory Rate 20 06/24/24 10:09 Blood Pressure 122/69 06/24/24 10:09 Pulse Oximetry 98 06/24/24 10:09 Temperature 97.7 F 06/24/24 10:09 Pulse Rate 78 06/24/24 10:09 Respiratory Rate 20 06/24/24 10:09 Blood Pressure 122/69 06/24/24 10:09 Pulse Oximetry 98 06/24/24 10:09 MDM - URI/Sore Throat MDM Narrative Medical decision making narrative: Chest x-ray on my interpretation shows no infiltrate. COVID and influenza are negative and she is prescribed Zithromax and Tessalon. She is prescribed Fioricet for her headache. Treatment diagnosis and follow-up were discussed with the patient. Differential Diagnosis Differential diagnosis: Likely upper respiratory infection, viral infection, influenza and other (Pneumonia, COVID) Lab Data Attestation: I reviewed the patient's lab results. Labs: Lab Results 06/24/24 Range/Units 10:20 Influenza Type A Ag Negative Influenza Type B Ag Negative SARS-CoV-2 Ag (CV2AG) Negative (NEGATIVE) Imaging Data Chest x-ray: My impression: No infiltrate Discharge Plan Discharge Chief Complaint: Upper Respiratory Infection Clinical Impression: Upper respiratory infection Patient Disposition: Home, Self-Care Time of Disposition Decision: 11:00 Condition: Good Mode of Transportation: Private Vehicle Prescriptions / Home Meds: New benzonatate 100 mg capsule 100 mg PO TID PRN (Reason: cough) Qty: 20 0RF hxboxjgspp-nolxxrvyzqyhe-nnry [Fioricet] 50-300-40 mg capsule 1 cap PO Q6H PRN (Reason: pain) 5 Days Qty: 20 0RF azithromycin [Zithromax Z-Derek] 250 mg tablet See Rx Instructions .ROUTE .COMPLEX Qty: 6 0RF Rx Instructions: For 250 mg dose pack: take 500 mg today (day 1), then 250 mg for 4 days (days 2-5) No Action albuterol sulfate [Ventolin HFA] 90 mcg/actuation HFA aerosol inhaler 2 puff INHALATION Q4H PRN (Reason: wheezing) Eliquis 5 mg tablet 5 mg PO BID diltiazem HCl 240 mg capsule,extended release 24hr 240 mg PO Q24H ezetimibe 10 mg tablet 10 mg PO DAILY ferrous sulfate 325 mg (65 mg iron) tablet 325 mg PO BID furosemide 40 mg tablet 40 mg PO DAILY isosorbide mononitrate 30 mg tablet extended release 24 hr 30 mg PO DAILY metformin 500 mg tablet 500 mg PO DAILY pantoprazole 40 mg tablet,delayed release (DR/EC) 40 mg PO DAILY potassium chloride 20 mEq tablet extended release 20 meq PO BID rosuvastatin 5 mg tablet 5 mg PO DAILY acetaminophen [Tylenol] 325 mg capsule 650 mg PO .q8 PRN (Reason: pain) Qty: 20 0RF metoprolol succinate 25 mg tablet extended release 24 hr 50 mg PO DAILY lisinopril 5 mg tablet 5 mg PO DAILY cholecalciferol (vitamin D3) 50 mcg (2,000 unit) capsule 50 mcg PO DAILY ondansetron 4 mg tablet,disintegrating 4 mg PO Q6H PRN (Reason: nausea and vomiting) Qty: 20 0RF hyoscyamine sulfate [Levsin] 0.125 mg tablet 0.125 mg PO Q6H PRN (Reason: abdominal pain) Qty: 12 0RF Ozempic 2 mg/dose (8 mg/3 mL) pen injector 2 mg SUBCUT DAILY colchicine 0.6 mg tablet 0.6 mg PO DAILY PRN (Reason: gout) ropinirole 0.5 mg tablet 0.5 mg PO DAILY allopurinol 100 mg tablet 100 mg PO DAILY Print Language: Japanese Instructions: Upper Respiratory Infection (ED) Referrals: Xavi Ann MD [Primary Care Provider] - 1 week
[2024-06-24] MEDS: BUTALB/ACETAMINOPHEN/CAFFEINE 50-325-40MG TABLET 1 TAB PO (10:25)
[2024-06-24 10:37] LABS: Influenza Virus A Antigen Negative; Influenza Virus B Antigen Negative; Internal Control Within Normal Limits; SARS-CoV-2 Ag NEGATIVE (NEGATIVE)
== END 2024-06-24 11:14 | disposition home or self-care (01) ==
PROVIDERS: Emergency Provider Emergency Medicine; PCP Family Medicine
DX: J06.9 Acute upper respiratory infection, unspecified (principal); Z87.891 Personal history of nicotine dependence
CPT/HCPCS: 71045; 87804; 87811; 99284

== ENCOUNTER 2024-08-13 09:48 | Emergency (ER) | payer OTHER, SELFPAY ==
[2024-08-13] VITALS (9 sets, daily range): BP systolic 122; BP diastolic 67; PULSE 65–78; TEMP 36.9; O2SAT 97–98; BMI 27.3
--- NOTE | 2024-08-13 10:08 | ECG_ITS ---
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
--- OUTSIDE RECORDS SUMMARY | 2024-08-13 10:12 | XMS_ITS | CCD ---
Author Organization [facility] Care Team Providers Care Ski Molder Name Role Phone ADAM BEARAB A Admitting Unavailable CASSY BEAR Attending Unavailable PHILLIP ANN Referring Unavailable PHILLIP ANN Primary Care Unavailable PHILLIP ANN Referring Unavailable XIAO TORRES Surgeon Unavailable ORLIN HUI Attending Unavailable CALLI PAIGE Admitting Unavailable ID Procedure Practitioner Unavailab PHILLIP Muñoz Primary Care Unavailable ID Procedure Practitioner Unavailab Dunia Light Surgeon Unavailsindhu [...] Consulting Unavailable Juan Miguel CHAVEZ Attending Unavailable NILL, Juan Miguel Ortiz Attending Unavailable SANTIAGOJENNA Attending Unavailable JENNA HENDERSON Attending Unavailable MANOJ, CURTIS Referring Unavailable GHANSHYAM, BESSIE Referring Unavailable MANOJ, CURTIS Referring Unavailable MANOJ, [...] Morphine; Translations: [morphine] Drug Allergy 9 [facility] Rep[facility] (1 source) 02082,00; Translations: [16262,00] Propensity to adverse reactions (disorder) 0 [facility] (2 sources) Morphine; Translations: [morphine] Drug Allergy Feeling nervous (finding), Tachycardia (finding) [facility] [place] (1 source) No Known Medication Allergies; Translations: [No Known Medication Allergies] Propensity to adverse reactions (disorder) [facility] Repository (1 source) dulaglutide; Translations: [DULAGLUTIDE] Drug Allergy 3 [facility] Rep[facility] Medications Current Medications Medication Drug Class(es) Dates Sig (Normalized) Sig (Original) 3 ML semaglutide 2.68 MG/ML Pen Injector [Ozempic] (1 source) Start: 03-16-2024 inject 2 mg by subcutaneous injection every week Ozempic 8 mg/3 mL (2 mg dose) subcutaneous solution 2 mg, SubCutaneous, qWeek, Refills(s) 0 Start Date: 03/16/24 Status: Ordered [id number] 200 actuat albuterol 0.09 mg/actuat metered dose inhaler (4 sources) beta2-Adrenergic Agonist Start: 08-19-2021 take 2 [...] Refill(s) 0 Start Date: 08/19/21 Status: Ordered allopurinol 100 mg oral tablet (1 source) Xanthine Oxidase Inhibitor Start: 03-16-2024 take 1 tablet by mouth once daily allopurinol 100 mg Tab 100 mg = 1 tab(s), Oral, Daily, Refills(s) 0 Start Date: 03/16/24 Status: Ordered apixaban 5 mg oral tablet (2 sources) Factor Xa Inhibitor Start: 08-19-2021 take 1 tablet by mouth twice daily Eliquis 5 mg oral tablet 5 mg = 1 tab(s), Oral, BID, Refills(s) 0 Start Date: 08/19/21 Status: Ordered colchicine 0.6 mg oral tablet (1 source) Start: 03-16-2024 colchicine 0.6 mg Tab as directed, Refills(s) 0 Start Date: 03/16/24 Status: Ordered DilTIAZem (Eqv-Cardizem CD) 240 mg/24 hours oral capsule, extended release (2 sources) Start: 08-19-2021 DilTIAZem (Eqv-Cardizem CD) 240 mg/24 hours oral capsule, extended release 240 mg = 1 cap(s), Oral, Daily, Refills(s) 0 Start Date: 08/19/21 Status: Ordered ezetimibe 10 mg oral tablet (1 source) Dietary Cholesterol Absorption Inhibitor Start: 03-16-2024 take 1 tablet by mouth once daily Zetia 10 mg Tab 10 mg = 1 tab(s), Oral, Daily, Refills(s) 0 Start Date: 03/16/24 Status: Ordered Pepcid (1 source) Histamine-2 Receptor Antagonist Start: 09-14-2022 Pepcid Refills(s) 0 Start Date: 09/14/22 Status: Ordered ferrous sulfate 325 mg oral tablet (2 sources) Start: 09-03-2022 take 1 tablet by mouth [...] Ordered hyoscyamine sulfate 0.125 mg oral tablet (2 sources) Start: 09-03-2022 take 1 tablet by mouth four times daily as needed Levsin 0.125 mg SL Tab 0.125 mg = 1 tab(s), Oral, QID, PRN cramping, Refills(s) 0 Start Date: 09/03/22 Status: Ordered 24 hr isosorbide mononitrate 30 mg extended release oral tablet (2 sources) Nitrate Vasodilator Start: 08-19-2021 take 1 tablet by mouth once daily in the morning isosorbide mononitrate 30 mg ER Tab 30 mg = 1 tab(s), Oral, qAM, Refills(s) 0 Start Date: 08/19/21 Status: Ordered lisinopril 5 mg oral tablet (1 source) Angiotensin Converting Enzyme Inhibitor Start: 04-04-2024 take 1 tablet by mouth once daily lisinopril 5 mg Tab 5 mg = 1 tab(s), Oral, Daily, Refills(s) 0 Start Date: 04/04/24 Status: Ordered metFORMIN hydrochloride 500 mg oral tablet (2 sources) Biguanide Start: 09-03-2022 take 1 tablet by mouth twice daily metformin 500 mg Tab 500 mg = 1 tab(s), Oral, BID, Refills(s) 0 Start Date: 09/03/22 Status: Ordered metoprolol tartrate 50 mg oral tablet (2 sources) beta-Adrenergic Cecil Start: 08-19-2021 take 1 tablet by mouth once daily Metoprolol succinate 50 mg ER Tablet 50 mg, Oral, Daily, Refills(s) 0 Start Date: 08/19/21 Status: Ordered ondansetron 4 mg disintegrating oral tablet (1 source) Serotonin-3 Receptor Antagonist Start: 03-16-2024 take 1 tablet by mouth three times daily as needed for nausea ondansetron 4 mg Dis Tab 4 mg = 1 tab(s), Oral, TID, PRN Nausea/Vomiting, Refills(s) 0 Start Date: 03/16/24 Status: Ordered pantoprazole 40 mg delayed release oral tablet (2 sources) Proton Pump Inhibitor Start: 08-19-2021 take 1 tablet by mouth once daily Pantoprazole [address] Tab 40 mg = 1 tab(s), Oral, Daily, Refills(s) 0 Start Date: 08/19/21 Status: Ordered rOPINIRole 0.5 mg oral tablet (1 source) Nonergot Dopamine Agonist Start: 03-16-2024 take 1 tablet by mouth once daily ropinirole 0.5 mg Tab 0.5 mg = 1 tab(s), Oral, Daily, Refills(s) 0 Start Date: 03/16/24 Status: Ordered 0.25 mg, 0.5 mg dose 1.5 ml semaglutide 1.34 mg/ml pen injector (1 source) Start: 09-03-2022 Ozempic 2 mg/1.5 mL (0.25 mg or 0.5 mg dose) subcutaneous solution Refill(s) 0, as directed Start Date: 09/03/22 Status: Ordered tiZANidine 4 mg oral tablet (1 source) Central alpha-2 Adrenergic Agonist Start: 03-16-2024 take 2 tablets by mouth at bedtime tiZANidine 4 mg Tab 8 mg = 2 tab(s), Oral, Bedtime, Refills(s) 0 Start Date: 03/16/24 Status: Ordered Vitamin D3 2000 intl units oral Tab (1 source) Start: 03-16-2024 take 1 tablet by mouth once daily Vitamin D3 2000 intl units oral Tab 50 mcg, Oral, Daily, tab(s), Refills(s) 0 Start Date: 03/16/24 Status: Ordered Completed/Discontinued Medications Medication Drug Class(es) Dates Sig (Normalized) Sig (Original) potassium chloride 20 meq extended release oral tablet (2 sources) Start: 09-03-2022 take 1 tablet by mouth twice daily potassium chloride 20 mEq ER Tab 20 mEq = 1 tab(s), Oral, BID, Refills(s) 0 Start Date: 09/03/22 Status: Ordered Problems Active Problems Problem Classification Problem Date Documented Da te Episodic/Chronic Abdominal pain (15 sources) Right upper quadrant pain; Translations: [Right upper quadrant pain] Onset: 08-09-2022 09-03-2022 Episodic Asthma (1 source) Unspecified asthma, uncomplicated; Translations: [UNSPECIFIED ASTHMA UNCOMPLICATED] Onset: 10-30-2022 Chronic Biliary tract disease (7 sources) Calculus of gallbladder without cholecystitis without obstruction; Translations: [Cholelithiasis without obstruction] Onset: 08-13-2022 Episodic Cardiac dysrhythmias (9 sources) Atrial flutter; Translations: [Paroxysmal atrial fibrillation] Onset: 08-11-2022 09-03-2022 Chronic Chronic obstructive pulmonary disease and bronchiectasis (4 sources) Chronic obstructive lung disease; Translations: [Chronic obstructive pulmonary disease with (acute) lower respiratory infection] Onset: 11-19-2022 09-03-2022 Chronic Congestive heart failure; nonhypertensive (2 sources) Chronic diastolic heart failure 09-03-2022 Chronic Coronary atherosclerosis and other heart disease (1 source) 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; Translations: [ASHD ENTERPRISE CA W/O ANGINA PECTORIS] Onset: 08-11-2022 Chronic Diabetes mellitus without complication (3 sources) Diabetes mellitus; Translations: [Type 2 diabetes mellitus without complications] Onset: 11-19-2022 09-03-2022 Chronic Diabetes mellitus without complication (1 source) Hyperglycemia, unspecified; Translations: [HYPERGLYCEMIA UNSPECIFIED] Onset: 09-13-2022 Episodic Disorders of lipid metabolism (12 sources) Pure hypercholesterolemia; Translations: [Pure hypercholesterolemia, unspecified] Onset: 09-09-2022 09-03-2022 Chronic Diverticulosis and diverticulitis (2 sources) Diverticular disease 09-03-2022 Chronic Essential hypertension (3 sources) Hypertensive disorder; Translations: [Essential (primary) hypertension] Onset: 11-19-2022 09-03-2022 Chronic Gout and other crystal arthropathies (3 sources) Gout; Translations: [Gout, unspecified] Onset: 10-30-2022 09-03-2022 Chronic Headache; including migraine (3 sources) Migraine; Translations: [Tension-type headache, unspecified, not [...] [OTHER FATIGUE] Onset: 09-13-2022 Episodic Mood disorders (2 sources) Depressive disorder 09-03-2022 Chronic Nausea and vomiting (2 sources) Nausea; Translations: [Nausea] Onset: 04-04-2024 Episodic Nonmalignant breast conditions (2 sources) Fibrocystic disease of breast 09-03-2022 Chronic Nutritional deficiencies (1 source) Vitamin D deficiency, unspecified; Translations: [VITAMIN D DEFICIENCY UNSPECIFIED] Onset: 09-13-2022 Chronic Other aftercare (1 source) exterminator termite (current) use of anticoagulants; Translations: [CUSTODIAL CURRNT USE ANTICOAGULANTS] Onset: 11-19-2022 Episodic Other aftercare (1 source) Other assisted (current) drug therapy; Translations: [OTH ERGONOMICS CONSULTANT CURRENT DRUG THERAPY] Onset: 11-19-2022 Episodic Other aftercare (1 source) senior living (current) use of oral hypoglycemic drugs; Translations: [CUSTODIAL USE ORAL HYPOGLYCEMIC DX] Onset: 11-19-2022 Episodic Other circulatory disease (2 sources) History of pericarditis 09-03-2022 Episodic Other connective tissue disease (3 sources) Pain in right toe(s); Translations: [PAIN IN RIGHT TOES] Onset: 10-28-2022 Episodic Other diseases of kidney and ureters (2 sources) Cyst of kidney 09-03-2022 Episodic Other gastrointestinal disorders (2 sources) Irritable bowel syndrome 09-03-2022 Chronic Other gastrointestinal disorders (1 source) Abnormal feces; Translations: [Other fecal abnormalities] Onset: 04-04-2024 Episodic Other gastrointestinal disorders (1 source) Swollen abdomen; Translations: [Abdominal distension (gaseous)] Onset: 04-04-2024 Episodic Other gastrointestinal disorders (1 source) Abdominal bloating 09-17-2022 Episodic Other gastrointestinal disorders (1 source) Occult blood in stools 04-04-2024 Episodic Other nutritional; endocrine; and metabolic disorders (2 sources) Body mass index 30+ - obesity 09-15-2022 Chronic Other nutritional; endocrine; and metabolic disorders (1 source) Obesity caused by energy imbalance 03-16-2024 Chronic Other screening for suspected conditions (not [...] tuberculosis or sexually transmitted disease) (2 sources) Pericardial effusion 09-03-2022 Episodic Pulmonary heart disease (2 sources) Pulmonary hypertension 09-03-2022 Chronic Residual codes; unclassified (2 sources) Obstructive sleep apnea syndrome 09-03-2022 Chronic Residual codes; unclassified (1 source) Sleep apnea, unspecified; Translations: [SLEEP APNEA UNSPECIFIED] Onset: 11-19-2022 Chronic Residual codes; unclassified (2 sources) Obstructive sleep apnea (adult) (pediatric); Translations: [Obstructive sleep apnea (adult) (pediatric)] Onset: 01-27-2023 Chronic Residual codes; unclassified (2 sources) Insomnia 09-03-2022 Episodic Screening and history of mental health and substance abuse codes (1 source) Personal history of nicotine dependence; Translations: [PERSONAL HISTORY OF NICOTINE DEPEND] Onset: 11-19-2022 Episodic Spondylosis; intervertebral disc disorders; other back problems (2 sources) Cervical disc disorder 09-03-2022 Chronic Spondylosis; intervertebral disc disorders; other back problems (2 sources) Low back pain 09-03-2022 Episodic Unclassified (2 sources) Mild aortic valve stenosis 09-03-2022 Unclassified (1 source) PERSONAL HISTORY OF COVID-19; Translations: [PERSONAL HISTORY OF COVID-19] Onset: 11-19-2022 Unclassified (3 sources) COUGH, UNSPECIFIED; Translations: [COUGH, UNSPECIFIED] Onset: 07-18-2022 Unclassified (4 sources) CONTACT W/AND (SUSP) EXPOS COVID-19; Translations: [CONTACT W/AND (SUSP) EXPOS COVID-19] Onset: 07-18-2022 Past or Other Problems Problem Classification Problem Date Documented Da te Episodic/Chronic Cardiac dysrhythmias (2 sources) Palpitations; Translations: [Palpitations] Onset: 01-11-2024 Episodic Fluid and electrolyte disorders (2 sources) Hypokalemia; [...] Test Name Value Interpretation Reference Range Facility Reminderson 04-20-2024 Reminders Reminders - From: Jacqueline Huerta LPN To: N - Clinical; Sent: 04/20/2024 11:34:18 EDT Show up: 03/20/2034 07:00:00 EDT Subject: colonoscopy recall Due Date/Time: 04/19/2034 07:00:00 EDT Reminder/Recall Patient due for screening colonoscopy 04/19/2034. Normal [facility] Office Visiton 04-13-2024 Follow-up visit [id number] Diana Alvarez 1970 F Date Provider Department Center 04/13/2024 JENNA ABREU CARD [place] Family History Problem Relation Age of Onset Breast cancer Mother Aneurysm Mother Stroke Mother Heart attack Father Coronary artery disease Father Family Status - Relation Status Age at Mother Father Level of Service:92900 ID OFFICE/OUTPATIENT ESTABLISHED MOD MDM 30 MIN Reason for Visit and Comments: Pre-op Exam [[id number]] Atrial Fibrillation [80] Hypertension [534803] Normal [facility] Ambulatory Visit Summaryon 0 04-04-2024 Ambulatory Visit [...] (Nervousness, Tachycardia) Problems (more content not included)... [facility] 36on 01-12-2024 36 BP is elevated. I encourage diet and routine exercise which can help her BP. In the mean time, would like to start her on lisinopril 5mg daily with follow-up BMP in 2 weeks. Thanks! Normal [facility] 36on 01-11-2024 36 Pt calling with bp's 156/83 133/78 147/80 146/78 157/72 148/80 120/80 [facility] 36on 12-23-2023 36 Regarding echo performed [...] few weeks with readings. She verbalized understanding. [facility] Telephoneon 12-23-2023 Telephone [id number] Diana Alvarez 1970 F Date Provider Department Center 12/23/2023 MIGUEL ROMANO TISH [facility] Family History Problem Relation Age of Onset Breast cancer Mother Aneurysm Mother Stroke Mother Heart attack Father Coronary artery disease Father Family Status - Relation Status Age at Mother Father [facility] 36on 11-10-2023 36 Call reference # [id number]. - Approval # [id number] approved from 11/05/23 - 01/04/24. [facility] Office Visiton 10-26-2023 Follow-up visit [id number] Diana Alvarez 1970 F Date Provider Department Center 10/26/2023 Jg-JENNA HENDERSON Family History Problem Relation Age of Onset Breast cancer Mother Aneurysm Mother Stroke Mother Heart attack Father Coronary artery disease Father Family Status - Relation Status Age at Mother Father Level of Service:54926 ID OFFICE/OUTPATIENT ESTABLISHED MOD MDM 30 MIN Reason for Visit and Comments: Atrial Flutter [101] Congestive Heart Failure [127] Normal [facility] CBC AUTO DIFFon 10-28-2022 BASO # 0.0 103/ul Normal 0.0-0.1 [facility] Comment on above: Performed By: #### L IPID, CMP, T4, TSH, FT3 #### [facility] [address] [place] [address] Dr. Mendel Herron Basophils/100 WBC (Bld) 0.2 % Normal 0.2-2.0 [facility] Comment on above: Performed By: #### L IPID, CMP, T4, TSH, FT3 #### [facility] [address] [place] [address] Dr. Mendel Herron EO # 0.0 103/ul Normal 0.0-0.7 [facility] Comment on above: Performed By: #### L IPID, CMP, T4, TSH, FT3 #### [facility] [address] [place] [address] Dr. Mendel Herron Eosinophils/100 WBC (Bld) 0.3 % Critically low 0.9-7.0 [facility] Comment on above: Performed By: #### L IPID, CMP, T4, TSH, FT3 #### [facility] [address] [place] [address] Dr. Mendel Herron Erythrocyte distribution width (RBC) [Ratio] 13.6 % Normal 11.0-15.0 [facility] Comment on above: Performed By: #### L IPID, CMP, T4, TSH, FT3 #### [facility] [address] [place] [address] Dr. Mendel Herron Hematocrit (Bld) [Volume fraction] 40.1 % Normal 36.0-48.0 [facility] Comment on above: Performed By: #### L IPID, CMP, T4, TSH, FT3 #### [facility] [address] [place] [address] Dr. Mendel Herron Hemoglobin (Bld) [Mass/Vol] 13.0 g/dL Normal 12.0-16.0 [facility] Comment on above: Performed By: #### L IPID, CMP, T4, TSH, FT3 #### [facility] [address] [place] [address] Dr. Mendel Herron IG # 0.06 10e3/ul Critically high 0.00-0.03 [facility] Comment on above: Performed By: #### L IPID, CMP, T4, TSH, FT3 #### [facility] [address] [place] [address] Dr. Mendel Herron IG % 0.5 % Normal 0.0-0.5 [facility] Comment on above: Performed By: #### L IPID, CMP, T4, TSH, FT3 #### [facility] [address] [place] [address] Dr. Mendel Herron LYMPH # 2.8 103/ul Normal 1.2-3.8 [facility] Comment on above: Performed By: #### L IPID, CMP, T4, TSH, FT3 #### [facility] [address] [place] [address] Dr. Mendel Herron Lymphocytes/100 WBC (Bld) 22.4 % Normal 20.5-60.0 [facility] Comment on above: Performed By: #### L IPID, CMP, T4, TSH, FT3 #### [facility] [address] [place] [address] Dr. Mendel Herron MANUAL DIFF REQ NO Normal [facility] Comment on above: Performed By: #### L IPID, CMP, T4, TSH, FT3 #### [facility] [address] [place] [address] Dr. Mendel Herron MCH (RBC) [Entitic mass] 30.8 pg Normal 26.7-34.0 [facility] Comment on above: Performed By: #### L IPID, CMP, T4, TSH, FT3 #### [facility] [address] [place] [address] Dr. Mendel Herron MCHC (RBC) [Mass/Vol] 32.4 g/dL Normal 29.9-35.2 [facility] Comment on above: Performed By: #### L IPID, CMP, T4, TSH, FT3 #### [facility] [address] [place] [address] Dr. Mendel Herron MCV (RBC) [Entitic vol] 95.0 fL Normal 81.0-99.0 [facility] Comment on above: Performed By: #### L IPID, CMP, T4, TSH, FT3 #### [facility] [address] [place] [address] Dr. Mendel Herron MONO # 0.9 103/ul Critically high 0.3-0.8 [facility] Comment on above: Performed By: #### L IPID, CMP, T4, TSH, FT3 #### [facility] [address] [place] [address] Dr. Mendel Herron Monocytes/100 WBC (Bld) 7.2 % Normal 1.7-12.0 [facility] Comment on above: Performed By: #### L IPID, CMP, T4, TSH, FT3 #### [facility] [address] [place] [address] Dr. Mendel Herron NEUT # 8.6 103/ul Critically high 1.4-6.5 [facility] Comment on above: Performed By: #### L IPID, CMP, T4, TSH, FT3 #### [facility] [address] [place] [address] Dr. Mendel Herron Neutrophils/100 WBC (Bld) 69.4 % Normal 43.0-75.0 [facility] Comment on above: Performed By: #### L IPID, CMP, T4, TSH, FT3 #### [facility] [address] [place] [address] Dr. Mendel Herron Platelet mean volume (Bld) [Entitic vol] 9.9 fL Normal 9.5-13.5 [facility] Comment on above: Performed By: #### L IPID, CMP, T4, TSH, FT3 #### [facility] [address] [place] [address] Dr. Mendel Herron PLT 297 103/ul Normal 150-450 [facility] Comment on above: Performed By: #### L IPID, CMP, T4, TSH, FT3 #### [facility] [address] [place] [address] Dr. Mendel Herron RBC 4.22 106/ul Normal 4.20-5.40 [facility] Comment on above: Performed By: #### L IPID, CMP, T4, TSH, FT3 #### [facility] [address] [place] [address] Dr. Mendel Herron WBC 12.4 103/ul Critically high 4.0-11.[address] [facility] Comment on above: Performed By: #### L IPID, CMP, T4, TSH, FT3 #### [facility] [address] [place] [address] [address] Mendel Herron CRPon 10-28-2022 CRP 1.3 mg/dL Critically high <=1.0 [facility] Comment on above: Performed By: #### L IPID, CMP, T4, TSH, FT3 #### [facility] [address] [place] [address] Dr. Mendel Herron PROF CHEM 8 (BAS METB)on Anion gap [Moles/Vol] 13.6 mmol/L Normal [facility] Comment on above: Performed By: #### L IPID, CMP, T4, TSH, FT3 #### [facility] [address] [place] [address] Dr. Mendel Herron Calcium [Mass/Vol] 9.3 mg/dL Normal 8.5-10.1 [facility] Comment on above: Performed By: #### L IPID, CMP, T4, TSH, FT3 #### [facility] [address] [place] [address] Dr. Mendel Herron Chloride [Moles/Vol] 102 mmol/L Normal 98-107 [facility] Comment on above: Performed By: #### L IPID, CMP, T4, TSH, FT3 #### [facility] [address] [place] [address] Dr. Mendel Herron CO2 [Moles/Vol] 30.7 mmol/L Normal 21.0-32.0 [facility] Comment on above: Performed By: #### L IPID, CMP, T4, TSH, FT3 #### [facility] [address] [place] [address] Dr. Mendel Herron Creatinine [Mass/Vol] 0.85 mg/dL Normal 0.55-1.02 [facility] Comment on above: Performed By: #### L IPID, CMP, T4, TSH, FT3 #### [facility] [address] [address] [address] Mendel Herron EGFR-AF ALBANIAN >60 Normal >=60 [facility] Comment on above: Performed By: #### L IPID, CMP, T4, TSH, FT3 #### [facility] [address] [address] [address] Mendel Herron EGFR-NON AF ALBANIAN >60 Normal >=60 [facility] Comment on above: Performed By: #### L IPID, CMP, T4, TSH, FT3 #### [facility] [address] [address] [address] Mendel Herron Glucose [Mass/Vol] 101 mg/dL Normal 74-106 [facility] Comment on above: Performed By: #### L IPID, CMP, T4, TSH, FT3 #### [facility] [address] [address] [address] Mendel Herron Potassium [Moles/Vol] 3.3 mmol/L Critically low 3.5-5.1 [facility] Comment on above: Performed By: #### L IPID, CMP, T4, TSH, FT3 #### [facility] [address] [address] [address] Mendel Herron Sodium [Moles/Vol] 143 mmol/L Normal 136-145 [facility] Comment on above: Performed By: #### L IPID, CMP, T4, TSH, FT3 #### [facility] [address] [address] [address] Mendel Herron Urea nitrogen [Mass/Vol] 12.0 mg/dL Normal 7.0-18.0 [facility] Comment on above: Performed By: #### L IPID, CMP, T4, TSH, FT3 #### [facility] [address] [address] [address] Mendel Herron Urea nitrogen/Creatinine [Mass ratio] 14.1 mg/mg Normal [facility] Comment on above: Performed By: #### L IPID, CMP, T4, TSH, FT3 #### [facility] [address] [place], [place] [address] Dr. Mendel Herron URIC ACID SERUMon 10-28-2022 Urate [Mass/Vol] 7.8 mg/dL Critically high 2.6-6.0 [facility] Comment on above: Performed By: #### L IPID, CMP, T4, TSH, FT3 #### [facility] [address], [place] [address] Dr. Mendel Herron XR TOES RT MIN [...] GAIL PELLETIER Date: 2022-10-28 20:53 Normal [facility] Covid-19 PCR (CVDTB)on SARS-CoV-2 (COVID-19) RNA DEIRDRE+probe Ql (Unsp spec) Not detected Normal NOT DETECTED [facility] Comment on [...] for this test is supported by the [employer] of Health and Human Service's declaration that [...] L IPID, CMP, T4, TSH, FT3 #### [facility] [address] [place] [address] Dr. Mendel Herron CBC AUTO DIFFon 09-09-2022 BASO # 0.1 103/ul Normal 0.0-0.1 [facility] Comment on above: Performed By: #### L IPID, CMP, T4, TSH, FT3 #### [facility] [address] [place] [address] Dr. Mendel Herron Basophils/100 WBC (Bld) 0.7 % Normal 0.2-2.0 [facility] Comment on above: Performed By: #### L IPID, CMP, T4, TSH, FT3 #### [facility] [address] [place] [address] Dr. Mendel Herron EO # 0.1 103/ul Normal 0.0-0.7 [facility] Comment on above: Performed By: #### L IPID, CMP, T4, TSH, FT3 #### [facility] [address] [place] [address] Dr. Mendel Herron Eosinophils/100 WBC (Bld) 0.7 % Critically low 0.9-7.0 [facility] Comment on above: Performed By: #### L IPID, CMP, T4, TSH, FT3 #### [facility] [address] [place] [address] Dr. Mendel Herron Erythrocyte distribution width (RBC) [Ratio] 13.1 % Normal 11.0-15.0 [facility] Comment on above: Performed By: #### L IPID, CMP, T4, TSH, FT3 #### [facility] [address] [place] [address] Dr. Mendel Herron Hematocrit (Bld) [Volume fraction] 43.7 % Normal 36.0-48.0 [facility] Comment on above: Performed By: #### L IPID, CMP, T4, TSH, FT3 #### [facility] [address] [place] [address] Dr. Mendel Herron Hemoglobin (Bld) [Mass/Vol] 14.4 g/dL Normal 12.0-16.0 [facility] Comment on above: Performed By: #### L IPID, CMP, T4, TSH, FT3 #### [facility] [address] [place] [address] Dr. Mendel Herron IG # 0.11 10e3/ul Critically high 0.00-0.03 [facility] Comment on above: Performed By: #### L IPID, CMP, T4, TSH, FT3 #### [facility] [address] [place] [address] Dr. Mendel Herron IG % 1.3 % Critically high 0.0-0.5 [facility] Comment on above: Performed By: #### L IPID, CMP, T4, TSH, FT3 #### [facility] [address] [place] [address] Dr. Mendel Herron LYMPH # 2.4 103/ul Normal 1.2-3.8 [facility] Comment on above: Performed By: #### L IPID, CMP, T4, TSH, FT3 #### [facility] [address] [place] [address] Dr. Mendel Herron Lymphocytes/100 WBC (Bld) 27.9 % Normal 20.5-60.0 [facility] Comment on above: Performed By: #### L IPID, CMP, T4, TSH, FT3 #### [facility] [address] [place] [address] Dr. Mendel Herron MANUAL DIFF REQ NO Normal [facility] Comment on above: Performed By: #### L IPID, CMP, T4, TSH, FT3 #### [facility] [address] [place] [address] Dr. Mendel Herron MCH (RBC) [Entitic mass] 31.0 pg Normal 26.7-34.0 [facility] Comment on above: Performed By: #### L IPID, CMP, T4, TSH, FT3 #### [facility] [address] [place] [address] Dr. Mendel Herron MCHC (RBC) [Mass/Vol] 33.0 g/dL Normal 29.9-35.2 [facility] Comment on above: Performed By: #### L IPID, CMP, T4, TSH, FT3 #### [facility] [address] [place] [address] Dr. Mendel Herron MCV (RBC) [Entitic vol] 94.0 fL Normal 81.0-99.0 [facility] Comment on above: Performed By: #### L IPID, CMP, T4, TSH, FT3 #### [facility] [address] [place] [address] Dr. Mendel Herron MONO # 0.5 103/ul Normal 0.3-0.8 [facility] Comment on above: Performed By: #### L IPID, CMP, T4, TSH, FT3 #### [facility] [address] [place] [address] Dr. Mendel Herron Monocytes/100 WBC (Bld) 6.0 % Normal 1.7-12.0 [facility] Comment on above: Performed By: #### L IPID, CMP, T4, TSH, FT3 #### [facility] [address] [place] [address] Dr. Mendel Herron NEUT # 5.4 103/ul Normal 1.4-6.5 [facility] Comment on above: Performed By: #### L IPID, CMP, T4, TSH, FT3 #### [facility] [address] [place] [address] Dr. Mendel Herron Neutrophils/100 WBC (Bld) 63.4 % Normal 43.0-75.0 [facility] Comment on above: Performed By: #### L IPID, CMP, T4, TSH, FT3 #### [facility] [address] [place] [address] Dr. Mendel Herron Platelet mean volume (Bld) [Entitic vol] 9.8 fL Normal 9.5-13.5 [facility] Comment on above: Performed By: #### L IPID, CMP, T4, TSH, FT3 #### [facility] [address] [place] [address] [address] Mendel Herron PLT 398 103/ul Normal 150-450 [facility] Comment on above: Performed By: #### L IPID, CMP, T4, TSH, FT3 #### [facility] [address] [place] [address] [address] Mendel Herron RBC 4.65 106/ul Normal 4.20-5.40 [facility] Comment on above: Performed By: #### L IPID, CMP, T4, TSH, FT3 #### [facility] [address] [place] [address] [address] Mendel Herron WBC 8.6 103/ul Normal 4.0-11.0 [facility] Comment on above: Performed By: #### L IPID, CMP, T4, TSH, FT3 #### [facility] [address] [place] [address] Dr. Mendel Herron FREE T3on 09-09-2022 FREE T3 2.59 pg/mlL Normal 2.18-3.98 [facility] Comment on above: Performed By: #### L IPID, CMP, T4, TSH, FT3 #### [facility] [address] [place] [address] Dr. Mendel Herron GLYCOHEMOGLOBIN A1Con 2022 ADA RECOMMENDATION SEE BELOW Normal [facility] Comment on above: Result Comment: ADA RECOMMENDED LIMIT 4.0 - 6.0 ADA THERAPEUTIC TARGET < 7.0 ACTION SUGGESTED > 7.0 Performed By: #### A 1C #### [facility] [address] [place] [address] Dr. Mendel Herron Glucose [Mass/Vol] 120 mg/dL Normal [facility] Comment on above: Performed By: #### A 1C #### [facility] [address] [place] [address] Dr. Mendel Herron HbA1c (Bld) [Mass fraction] 5.8 % Normal 4.5-6.2 [facility] Comment on above: Performed By: #### A 1C #### [facility] [address] [place] [address] [address] Mendel Herron LIPID PROFILEon 09-09-2022 CHOL-HDL RATIO NORM SEE BELOW Normal [facility] Comment on above: Result Comment: 3.3 - 4.4 LOW RISK 4.4 - 7.1 AVERAGE RISK 7.1 - 11.0 MODERATE RISK >11.0 HIGH RISK Performed By: #### L IPID, CMP, T4, TSH, FT3 #### [facility] [address] [place] [address] [address] Mendel Herron Cholesterol [Mass/Vol] 308 mg/dL Critically high <=200 [facility] Comment on above: Performed By: #### L IPID, CMP, T4, TSH, FT3 #### [facility] [address] [place] [address] [address] Mendel Herron Cholesterol in HDL [Mass/Vol] 46 mg/dL Normal 40-60 [facility] Comment on above: Performed By: #### L IPID, CMP, T4, TSH, FT3 #### [facility] [address] [place] [address] [address] Mendel Herron Cholesterol in LDL [Mass/Vol] 212.6 mg/dL Normal [facility] Comment on above: Performed By: #### L IPID, CMP, T4, TSH, FT3 #### [facility] [address] [place] [address] [address] Mendel Herron Cholesterol.total/Ch olesterol in HDL [Mass ratio] 6.7 {ratio} Normal [facility] Comment on above: Performed By: #### L IPID, CMP, T4, TSH, FT3 #### [facility] [address] [place] [address] [address] Mendel Herron HDL NORMAL > or = 60 mg/dl - LOW CARDIOVASCULAR RISK <40 mg/dl - HIGH CARDIOVASCULAR RISK Normal [facility] Comment on above: Performed By: #### L IPID, CMP, T4, TSH, FT3 #### [facility] [address] [place] [address] [address] Mendel Herron LDL CALC NORMAL SEE BELOW Normal [facility] Comment on above: Result Comment: <100 mg/dl OPTIMAL 100 - 129 mg/dl NEAR OR ABOVE OPTIMAL 130 - 159 mg/dl BORDERLINE HIGH 160 - 189 mg/dl HIGH >190 mg/dl VERY HIGH Performed By: #### L IPID, CMP, T4, TSH, FT3 #### [facility] [address] [place] [address] [address] Mendel Herron Triglyceride [Mass/Vol] 247 mg/dL Critically high <=150 [facility] Comment on above: Performed By: #### L IPID, CMP, T4, TSH, FT3 #### [facility] [address] [place] [address] [address] Mendel Herron VLDL CALC 49.4 mg/dL Normal [facility] Comment on above: Performed By: #### L IPID, CMP, T4, TSH, FT3 #### [facility] [address] [place] [address] Dr. Mendel Herron PROF 14(COMP METB)on 023 Albumin [Mass/Vol] 4.0 g/dL Normal 3.4-5.0 [facility] Comment on above: Performed By: #### L IPID, CMP, T4, TSH, FT3 #### [facility] [address] [place] [address] [address] Mendel Herron Albumin/Globulin [Mass ratio] 0.9 {ratio} Normal [facility] Comment on above: Performed By: #### L IPID, CMP, T4, TSH, FT3 #### [facility] [address] [place] [address] [address] Mendel Herron ALP [Catalytic activity/Vol] 115 U/L Normal 46-116 [facility] Comment on above: Performed By: #### L IPID, CMP, T4, TSH, FT3 #### [facility] [address] [place] [address] [address] Mendel Herron ALT [Catalytic activity/Vol] 30 U/L Normal 14-59 [facility] Comment on above: Performed By: #### L IPID, CMP, T4, TSH, FT3 #### [facility] [address] [place] [address] [address] Mendel Herron Anion gap [Moles/Vol] 12.7 mmol/L Normal [facility] Comment on above: Performed By: #### L IPID, CMP, T4, TSH, FT3 #### [facility] [address] [place] [address] Dr. Mendel Herron AST [Catalytic activity/Vol] 18 U/L Normal 15-37 [facility] Comment on above: Performed By: #### L IPID, CMP, T4, TSH, FT3 #### [facility] [address] [place] [address] Dr. Mendel Herron Bilirubin [Mass/Vol] 0.7 mg/dL Normal 0.2-1.0 [facility] Comment on above: Performed By: #### L IPID, CMP, T4, TSH, FT3 #### [facility] [address] [place] [address] Dr. Mendel Herron Calcium [Mass/Vol] 9.7 mg/dL Normal 8.5-10.1 [facility] Comment on above: Performed By: #### L IPID, CMP, T4, TSH, FT3 #### [facility] [address] [place] [address] Dr. Mendel Herron Chloride [Moles/Vol] 103 mmol/L Normal 98-107 [facility] Comment on above: Performed By: #### L IPID, CMP, T4, TSH, FT3 #### [facility] [address] [place] [address] Dr. Mendel Herron CO2 [Moles/Vol] 26.5 mmol/L Normal 21.0-32.0 [facility] Comment on above: Performed By: #### L IPID, CMP, T4, TSH, FT3 #### [facility] [address] [place] [address] Dr. Mendel Herron Creatinine [Mass/Vol] 0.83 mg/dL Normal 0.55-1.02 [facility] Comment on above: Performed By: #### L IPID, CMP, T4, TSH, FT3 #### [facility] [address] [place] [address] Dr. Mendel Herron EGFR-AF ALBANIAN >60 Normal >=[address] [facility] Comment on above: Performed By: #### L IPID, CMP, T4, TSH, FT3 #### [facility] [address] [place] [address] [address] Mendel Herron EGFR-NON AF ALBANIAN >60 Normal >=60 [facility] Comment on above: Performed By: #### L IPID, CMP, T4, TSH, FT3 #### [facility] [address] [place] [address] [address] Mendel Herron Globulin (S) [Mass/Vol] 4.4 g/dL Normal [facility] Comment on above: Performed By: #### L IPID, CMP, T4, TSH, FT3 #### [facility] [address] [place] [address] [address] Mendel Herron Glucose [Mass/Vol] 97 mg/dL Normal 74-106 [facility] Comment on above: Performed By: #### L IPID, CMP, T4, TSH, FT3 #### [facility] [address] [place] [address] [address] Mendel Herron Potassium [Moles/Vol] 4.2 mmol/L Normal 3.5-5.1 [facility] Comment on above: Performed By: #### L IPID, CMP, T4, TSH, FT3 #### [facility] [address] [place] [address] [address] Mendel Herron Protein [Mass/Vol] 8.4 g/dL Critically high 6.4-8.2 [facility] Comment on above: Performed By: #### L IPID, CMP, T4, TSH, FT3 #### [facility] [address] [place] [address] [address] Mendel Herron Sodium [Moles/Vol] 138 mmol/L Normal 136-145 [facility] Comment on above: Performed By: #### L IPID, CMP, T4, TSH, FT3 #### [facility] [address] [place] [address] [address] Mendel Herron Urea nitrogen [Mass/Vol] 12.0 mg/dL Normal 7.0-18.0 [facility] Comment on above: Performed By: #### L IPID, CMP, T4, TSH, FT3 #### [facility] [address] [place] [address] Dr. Mendel Herron Urea nitrogen/Creatinine [Mass ratio] 14.5 mg/mg Normal [facility] Comment on above: Performed By: #### L IPID, CMP, T4, TSH, FT3 #### [facility] [address] [place] [address] Dr. Mendel Herron T4on 09-09-2022 T4 [Mass/Vol] 8.80 ug/dL Normal 4.80-13.90 [facility] Comment on above: Performed By: #### L IPID, CMP, T4, TSH, FT3 #### [facility] [address] [place] [address] Dr. Mendel Herron TSHon 09-09-2022 TSH 0.898 uIU/mL Normal 0.358-3.740 [facility] Comment on above: Performed By: #### L IPID, CMP, T4, TSH, FT3 #### [facility] [address] [place] [address] Dr. Mendel Herron VITAMIN D 25 OHon 09-09-2022 VIT D 25-OH 24.0 ng/mL Normal [facility] Comment on above: Performed By: #### L IPID, CMP, T4, TSH, FT3 #### [facility] [address] [place] [address] Dr. Mendel Herron VIT D RANGES SEE BELOW Normal [facility] Comment on above: Result Comment: <20 ng/mL Vit D deficient 20 - <30 ng/mL Vit D insufficient 30 - 100 ng/mL Vit D sufficient >100 ng/mL Potential Toxicity Performed By: #### L IPID, CMP, T4, TSH, FT3 #### [facility] [address] [place] [address] Dr. Mendel Herron NM HEPATOBILIARY SCAN W [...] by: VIVI GARY Date: 2022-08-20 16:07 Normal [facility] US SINGLE QUAD RT UPPERon US SINGLE [...] by: JEAN LOPES Date: 2022-08-11 15:50 Normal [facility] CARDIAC SUBHA ADMITon 023 CK [Catalytic activity/Vol] 30 U/L Normal 26-192 [facility] Comment on above: Performed By: #### L IPID, CMP, T4, TSH, FT3 #### [facility] [address] [place] [address] [address] Mendel Herron CK.MB [Mass/Vol] 1.02 ng/mL Normal <=3.60 [facility] Comment on above: Performed By: #### L IPID, CMP, T4, TSH, FT3 #### [facility] [address] [place] [address] [address] Mendel Herron HSTROP 32.8 pg/mL Normal 4.0-51.3 [facility] Comment on above: Result Comment: CUT- OFF POINTS HAVE BEEN ESTABLISHED BASED ON THE FOURTH UNIVERSAL DEFINITIONS OF MYOCARDIAL INFARCTION. THE UPPER REFERENCE LIMIT (URL) OF TROPONIN, DEFINED THE 99TH PERCENTILE OF cTnI DISTRIBUTION IN A REFERENCE POPULATION, HAS BEEN CONFIRMED THE DECISION THRESHOLD FOR [place] DIAGNOSIS. Performed By: #### L IPID, CMP, T4, TSH, FT3 #### [facility] [address] [place] [address] Dr. Mendel Herron SONYA 23 ng/mL Normal 9-82 [facility] Comment on above: Performed By: #### L IPID, CMP, T4, TSH, FT3 #### [facility] [address] [place] [address] Dr. Mendel Herron CBC AUTO DIFFon 08-09-2022 BASO # 0.0 103/ul Normal 0.0-0.1 [facility] Comment on above: Performed By: #### L IPID, CMP, T4, TSH, FT3 #### [facility] [address] [place] [address] [address] Mendel Herron Basophils/100 WBC (Bld) 0.3 % Normal 0.2-2.0 [facility] Comment on above: Performed By: #### L IPID, CMP, T4, TSH, FT3 #### [facility] [address] [place] [address] Dr. Mendel Herron EO # 0.0 103/ul Normal 0.0-0.7 [facility] Comment on above: Performed By: #### L IPID, CMP, T4, TSH, FT3 #### [facility] [address] [place] [address] Dr. Mendel Herron Eosinophils/100 WBC (Bld) 0.3 % Critically low 0.9-7.0 [facility] Comment on above: Performed By: #### L IPID, CMP, T4, TSH, FT3 #### [facility] [address] [place] [address] Dr. Mendel Herron Erythrocyte distribution width (RBC) [Ratio] 13.1 % Normal 11.0-15.0 [facility] Comment on above: Performed By: #### L IPID, CMP, T4, TSH, FT3 #### [facility] [address] [place] [address] Dr. Mendel Herron Hematocrit (Bld) [Volume fraction] 42.7 % Normal 36.0-48.0 [facility] Comment on above: Performed By: #### L IPID, CMP, T4, TSH, FT3 #### [facility] [address] [place] [address] Dr. Mendel Herron Hemoglobin (Bld) [Mass/Vol] 15.4 g/dL Normal 12.0-16.0 [facility] Comment on above: Performed By: #### L IPID, CMP, T4, TSH, FT3 #### [facility] [address] [place] [address] Dr. Mendel Herron IG # 0.05 10e3/ul Critically high 0.00-0.03 [facility] Comment on above: Performed By: #### L IPID, CMP, T4, TSH, FT3 #### [facility] [address] [place] [address] Dr. Mendel Herron IG % 0.4 % Normal 0.0-0.5 [facility] Comment on above: Performed By: #### L IPID, CMP, T4, TSH, FT3 #### [facility] [address] [place] [address] Dr. Mendel Herron LYMPH # 2.5 103/ul Normal 1.2-3.8 [facility] Comment on above: Performed By: #### L IPID, CMP, T4, TSH, FT3 #### [facility] [address] [place] [address] Dr. Mendel Herron Lymphocytes/100 WBC (Bld) 21.2 % Normal 20.5-60.0 [facility] Comment on above: Performed By: #### L IPID, CMP, T4, TSH, FT3 #### [facility] [address] [place] [address] Dr. Mendel Herron MANUAL DIFF REQ NO Normal [facility] Comment on above: Performed By: #### L IPID, CMP, T4, TSH, FT3 #### [facility] [address] [place] [address] Dr. Mendel Herron MCH (RBC) [Entitic mass] 31.7 pg Normal 26.7-34.0 [facility] Comment on above: Performed By: #### L IPID, CMP, T4, TSH, FT3 #### [facility] [address] [place] [address] Dr. Mendel Herron MCHC (RBC) [Mass/Vol] 36.1 g/dL Critically high 29.9-35.2 [facility] Comment on above: Performed By: #### L IPID, CMP, T4, TSH, FT3 #### [facility] [address] [place] [address] Dr. Mendel Herron MCV (RBC) [Entitic vol] 87.9 fL Normal 81.0-99.0 [facility] Comment on above: Performed By: #### L IPID, CMP, T4, TSH, FT3 #### [facility] [address] [place] [address] Dr. Mendel Herron MONO # 0.7 103/ul Normal 0.3-0.8 [facility] Comment on above: Performed By: #### L IPID, CMP, T4, TSH, FT3 #### [facility] [address] [place] [address] Dr. Mendel Herron Monocytes/100 WBC (Bld) 6.3 % Normal 1.7-12.0 [facility] Comment on above: Performed By: #### L IPID, CMP, T4, TSH, FT3 #### [facility] [address] [address] [address] Mendel Herron NEUT # 8.4 103/ul Critically high 1.4-6.5 [facility] Comment on above: Performed By: #### L IPID, CMP, T4, TSH, FT3 #### [facility] [address] [address] [address] Mendel Herron Neutrophils/100 WBC (Bld) 71.5 % Normal 43.0-75.0 [facility] Comment on above: Performed By: #### L IPID, CMP, T4, TSH, FT3 #### [facility] [address] [place] [address] Dr. Mendel Herron Platelet mean volume (Bld) [Entitic vol] 9.8 fL Normal 9.5-13.5 [facility] Comment on above: Performed By: #### L IPID, CMP, T4, TSH, FT3 #### [facility] [address] [address] [address] Mendel Herron PLT 374 103/ul Normal 150-450 [facility] Comment on above: Performed By: #### L IPID, CMP, T4, TSH, FT3 #### [facility] [address] [address] [address] Mendel Herron RBC 4.86 106/ul Normal 4.20-5.40 [facility] Comment on above: Performed By: #### L IPID, CMP, T4, TSH, FT3 #### [facility] [address] [address] [address] Mendel Herron WBC 11.7 103/ul Critically high 4.0-11.0 [facility] Comment on above: Performed By: #### L IPID, CMP, T4, TSH, FT3 #### [facility] [address] [address] HEAD WO CONon [...] HELLEN VELAZQUEZ Date: 2022-08-09 15:23 Normal [facility] Covid-19 PCR (CVDTB)on 07-20 SARS-CoV-2 (COVID-19) RNA DEIRDRE+probe Ql (Unsp spec) Not detected Normal NOT DETECTED [facility] Comment on [...] for this test is supported by the [employer] and Human Service's declaration that [...] L IPID, CMP, T4, TSH, FT3 #### [facility] [address] [address] [address] Mendel Herron ER URINE PROFILEon 3 Bilirubin Ql (U) Negative Normal NEGATIVE [facility] Comment on above: Performed By: #### L IPID, CMP, T4, TSH, FT3 #### [facility] [address] [place] [address] Dr. Mendel Herron Clarity (U) CLEAR Normal CLEAR [facility] Comment on above: Performed By: #### L IPID, CMP, T4, TSH, FT3 #### [facility] [address] [address] [address] Mendel Herron Color (U) LT. YELLOW Normal YELLOW [facility] Comment on above: Performed By: #### L IPID, CMP, T4, TSH, FT3 #### [facility] [address] [place] [address] Dr. Mendel DECKER A micrscopic examination will be performed if indicated. Normal [facility] Comment on above: Performed By: #### L IPID, CMP, T4, TSH, FT3 #### [facility] [address] [place] [address] Dr. Mendel Herron Glucose Ql (U) Negative Normal NEGATIVE [facility] Comment on above: Performed By: #### L IPID, CMP, T4, TSH, FT3 #### [facility] [address] [place] [address] Dr. Mendel Herron Hemoglobin Ql (U) TRACE-INTACT Abnormal NEGATIVE [facility] Comment on above: Performed By: #### L IPID, CMP, T4, TSH, FT3 #### [facility] [address] [address] [address] Mendel Herron Ketones Ql (U) Negative Normal NEGATIVE [facility] Comment on above: Performed By: #### L IPID, CMP, T4, TSH, FT3 #### [facility] [address] [place] [address] Dr. Mendel Herron LEUKOCYTES Negative Normal NEGATIVE [facility] Comment on above: Performed By: #### L IPID, CMP, T4, TSH, FT3 #### [facility] [address] [place] [address] Dr. Mendel Herron Nitrite Ql (U) Negative Normal NEGATIVE [facility] Comment on above: Performed By: #### L IPID, CMP, T4, TSH, FT3 #### [facility] [address] [place] [address] Dr. Mendel Herron pH (U) 5.0 [pH] Normal 5-9 [facility] Comment on above: Performed By: #### L IPID, CMP, T4, TSH, FT3 #### [facility] [address] [place] [address] Dr. Mendel Herron SPEC GRAVITY 1.015 Normal 1.005-<=1.025 [facility] Comment on above: Performed By: #### L IPID, CMP, T4, TSH, FT3 #### [facility] [address] [place] [address] Dr. Mendel Herron UA PROTEIN Negative Normal NEGATIVE/ TRACE [facility] Comment on above: Performed By: #### L IPID, CMP, T4, TSH, FT3 #### [facility] [address] [place] [address] Dr. Mendel Herron UR MICRO IND INDICATED Normal [facility] Comment on above: Performed By: #### L IPID, CMP, T4, TSH, FT3 #### [facility] [address] [place] [address] Dr. Mendel Herron Urobilinogen Qn (U) 0.2 {James'U}/dL Normal 0.2 - 1. 0 [facility] Comment on above: Performed By: #### L IPID, CMP, T4, TSH, FT3 #### [facility] [address] [place] [address] Dr. Mendel Herron LIPASEon 08-09-2022 Lipase [Catalytic activity/Vol] 114.0 U/L Normal 73.0-393.0 [facility] Comment on above: Performed By: #### L IPA, BMP, CMADM #### [facility] [address] [place] [address] Dr. Mendel Herron PROF CHEM 8 (BAS METB)on Anion gap [Moles/Vol] 18.9 mmol/L Normal [facility] Comment on above: Performed By: #### L IPA, BMP, CMADM #### [facility] [address] [address] [address] Mendel Herron Calcium [Mass/Vol] 9.4 mg/dL Normal 8.5-10.1 [facility] Comment on above: Performed By: #### L IPA, BMP, CMADM #### [facility] [address] [address] [address] Mendel Herron Chloride [Moles/Vol] 97 mmol/L Critically low 98-107 [facility] Comment on above: Performed By: #### L IPA, BMP, CMADM #### [facility] [address] [place] [address] Dr. Mendel Herron CO2 [Moles/Vol] 26.0 mmol/L Normal 21.0-32.[address] [facility] Comment on above: Performed By: #### L IPA, BMP, CMADM #### [facility] [address] [place] [address] Dr. Mendel Herron Creatinine [Mass/Vol] 0.85 mg/dL Normal 0.55-1.02 [facility] Comment on above: Performed By: #### L IPA, BMP, CMADM #### [facility] [address] [place] [address] Dr. Mendel Herron EGFR-AF ALBANIAN >60 Normal >=[address] [facility] Comment on above: Performed By: #### L IPA, BMP, CMADM #### [facility] [address] [place] [address] Dr. Mendel Herron EGFR-NON AF ALBANIAN >60 Normal >=60 [facility] Comment on above: Performed By: #### L IPA, BMP, CMADM #### [facility] [address] [place] [address] Dr. Mendel Herron Glucose [Mass/Vol] 120 mg/dL Critically high 74-106 [facility] Comment on above: Performed By: #### L IPA, BMP, CMADM #### [facility] [address] [place] [address] Dr. Mendel Herron Potassium [Moles/Vol] 3.9 mmol/L Normal 3.5-5.1 [facility] Comment on above: Performed By: #### L IPA, BMP, CMADM #### [facility] [address] [place] [address] Dr. Mendel Herron Sodium [Moles/Vol] 138 mmol/L Normal 136-145 [facility] Comment on above: Performed By: #### L IPA, BMP, CMADM #### [facility] [address] [place] [address] Dr. Mendel Herron Urea nitrogen [Mass/Vol] 17.0 mg/dL Normal 7.0-18.0 [facility] Comment on above: Performed By: #### L IPA BMP, CMADM #### [facility] [address] [place] [address] Dr. Mendel Herron Urea nitrogen/Creatinine [Mass ratio] 20.0 mg/mg Normal [facility] Comment on above: Performed By: #### L IPA BMP, CMADM #### [facility] [address] [place] [address] Dr. Mendel Herron TROPONIN, HIGH SENSITIVITYon 08-09-2022 HSTROP 32.5 pg/mL Normal 4.0-51.3 [facility] Comment on above: Result Comment: CUT- OFF POINTS HAVE BEEN ESTABLISHED BASED ON THE FOURTH UNIVERSAL DEFINITIONS OF MYOCARDIAL INFARCTION. THE UPPER REFERENCE LIMIT (URL) OF TROPONIN, DEFINED THE 99TH PERCENTILE OF cTnI DISTRIBUTION IN A REFERENCE POPULATION, HAS BEEN CONFIRMED THE DECISION THRESHOLD FOR [place] DIAGNOSIS. Performed By: #### L IPID, CMP, T4, TSH, FT3 #### [facility] [address] [place] [address] Dr. Mendel Herron URINE MICROSCOPIC ONLYon BACTERIA NONE SEEN Normal NONE SEEN [facility] Comment on above: Performed By: #### L IPID, CMP, T4, TSH, FT3 #### [facility] [address] [place] [address] Dr. Mendel Herron Bacteria identified Cx Nom (U) NOT INDICATED Normal [facility] Comment on above: Performed By: #### L IPID, CMP, T4, TSH, FT3 #### [facility] [address] [address] [address] Mendel Herron CAST NONE SEEN Normal NONE SEEN [facility] Comment on above: Performed By: #### L IPID, CMP, T4, TSH, FT3 #### [facility] [address] [address] [address] Mendel Herron Crystals LM Nom (Urine sed) NONE SEEN Normal NONE SEEN [facility] Comment on above: Performed By: #### L IPID, CMP, T4, TSH, FT3 #### [facility] [address] [address] [address] Mendel Herron Epithelial cells LM Ql (Urine sed) NONE SEEN Normal NONE SEEN /RARE [facility] Comment on above: Performed By: #### L IPID, CMP, T4, TSH, FT3 #### [facility] [address] [address] [address] Mendel Herron MUCOUS NONE SEEN Normal NONE SEEN [facility] Comment on above: Performed By: #### L IPID, CMP, T4, TSH, FT3 #### [facility] [address] [address] [address] Mendel Herron RBC 0-2 Normal 0-2 [facility] Comment on above: Performed By: #### L IPID, CMP, T4, TSH, FT3 #### [facility] [address] [address] [address] Mendel Herron WBC NONE SEEN Normal NONE SEEN [facility] Comment on above: Performed By: #### L IPID, CMP, T4, TSH, FT3 #### [facility] [address] [address] [address] Mendel Herron XR CHEST 1 Von [...] by: MARY DIETZ Date: 2022-08-09 15:18 Normal [facility] H PYLORI ANTIBODY IGGon 07-20 H. PYLORI IGG ABS 0.11 Index Value Normal 0.00-0.79 T [facility] Comment on above: Result Comment: Nega tive <0.80 Equivocal 0.80 - 0.89 Positive >0.89 Performed By: #### L IPID, CMP, T4, TSH, FT3 #### [facility] [address] [place] [address] Dr. Mendel Herron AMYLASEon 08-06-2022 Amylase [Catalytic activity/Vol] 57 U/L Normal 25-115 [facility] Comment on above: Performed By: #### L IPID, CMP, T4, TSH, FT3 #### [facility] [address] [place] [address] Dr. Mendel Herron CBC AUTO DIFFon 08-06-2022 BASO # 0.1 103/ul Normal 0.0-0.1 [facility] Comment on above: Performed By: #### L IPID, CMP, T4, TSH, FT3 #### [facility] [address] [place] [address] Dr. Mendel Herron Basophils/100 WBC (Bld) 0.7 % Normal 0.2-2.0 [facility] Comment on above: Performed By: #### L IPID, CMP, T4, TSH, FT3 #### [facility] [address] [place] [address] Dr. Mendel Herron EO # 0.1 103/ul Normal 0.0-0.7 [facility] Comment on above: Performed By: #### L IPID, CMP, T4, TSH, FT3 #### [facility] [address] [place] [address] Dr. Mendel Herron Eosinophils/100 WBC (Bld) 0.5 % Critically low 0.9-7.0 [facility] Comment on above: Performed By: #### L IPID, CMP, T4, TSH, FT3 #### [facility] [address] [place] [address] Dr. Mendel Herron Erythrocyte distribution width (RBC) [Ratio] 13.7 % Normal 11.0-15.0 [facility] Comment on above: Performed By: #### L IPID, CMP, T4, TSH, FT3 #### [facility] [address] [place] [address] Dr. Mendel Herron Hematocrit (Bld) [Volume fraction] 46.2 % Normal 36.0-48.0 [facility] Comment on above: Performed By: #### L IPID, CMP, T4, TSH, FT3 #### [facility] [address] [place] [address] Dr. Mendel Herron Hemoglobin (Bld) [Mass/Vol] 15.1 g/dL Normal 12.0-16.0 [facility] Comment on above: Performed By: #### L IPID, CMP, T4, TSH, FT3 #### [facility] [address] [place] [address] Dr. Mendel Herron IG # 0.06 10e3/ul Critically high 0.00-0.03 [facility] Comment on above: Performed By: #### L IPID, CMP, T4, TSH, FT3 #### [facility] [address] [place] [address] Dr. Mendel Herron IG % 0.6 % Critically high 0.0-0.5 [facility] Comment on above: Performed By: #### L IPID, CMP, T4, TSH, FT3 #### [facility] [address] [place] [address] Dr. Mendel Herron LYMPH # 2.5 103/ul Normal 1.2-3.8 [facility] Comment on above: Performed By: #### L IPID, CMP, T4, TSH, FT3 #### [facility] [address] [place] [address] Dr. Mendel Herron Lymphocytes/100 WBC (Bld) 23.4 % Normal 20.5-60.0 [facility] Comment on above: Performed By: #### L IPID, CMP, T4, TSH, FT3 #### [facility] [address] [place] [address] Dr. Mendel Herron MANUAL DIFF REQ NO Normal [facility] Comment on above: Performed By: #### L IPID, CMP, T4, TSH, FT3 #### [facility] [address] [place] [address] Dr. Mendel Herron MCH (RBC) [Entitic mass] 31.4 pg Normal 26.7-34.0 [facility] Comment on above: Performed By: #### L IPID, CMP, T4, TSH, FT3 #### [facility] [address] [place] [address] Dr. Mendel Herron MCHC (RBC) [Mass/Vol] 32.7 g/dL Normal 29.9-35.2 [facility] Comment on above: Performed By: #### L IPID, CMP, T4, TSH, FT3 #### [facility] [address] [place] [address] Dr. Mendel Herron MCV (RBC) [Entitic vol] 96.0 fL Normal 81.0-99.0 [facility] Comment on above: Performed By: #### L IPID, CMP, T4, TSH, FT3 #### [facility] [address] [place] [address] Dr. Mendel Herron MONO # 0.6 103/ul Normal 0.3-0.8 [facility] Comment on above: Performed By: #### L IPID, CMP, T4, TSH, FT3 #### [facility] [address] [place] [address] Dr. Mendel Herron Monocytes/100 WBC (Bld) 6.0 % Normal 1.7-12.0 [facility] Comment on above: Performed By: #### L IPID, CMP, T4, TSH, FT3 #### [facility] [address] [place] [address] Dr. Mendel Herron NEUT # 7.4 103/ul Critically high 1.4-6.5 [facility] Comment on above: Performed By: #### L IPID, CMP, T4, TSH, FT3 #### [facility] [address] [place] [address] Dr. Mendel Herron Neutrophils/100 WBC (Bld) 68.8 % Normal 43.0-75.0 [facility] Comment on above: Performed By: #### L IPID, CMP, T4, TSH, FT3 #### [facility] [address] [address] [address] Mendel Herron Platelet mean volume (Bld) [Entitic vol] 9.7 fL Normal 9.5-13.5 [facility] Comment on above: Performed By: #### L IPID, CMP, T4, TSH, FT3 #### [facility] [address] [place] [address] Dr. Mendel Herron PLT 331 103/ul Normal 150-450 [facility] Comment on above: Performed By: #### L IPID, CMP, T4, TSH, FT3 #### [facility] [address] [place] [address] Dr. Mendel Herron RBC 4.81 106/ul Normal 4.20-5.40 [facility] Comment on above: Performed By: #### L IPID, CMP, T4, TSH, FT3 #### [facility] [address] [place] [address] Dr. Mendel Herron WBC 10.7 103/ul Normal 4.0-11.0 [facility] Comment on above: Performed By: #### L IPID, CMP, T4, TSH, FT3 #### [facility] [address] [place] [address] HEAD WO CONon [...] by: JEAN LOPES Date: 2022-08-06 08:39 Normal [facility] LIPASEon 08-06-2022 Lipase [Catalytic activity/Vol] 125.0 U/L Normal 73.0-393.0 [facility] Comment on above: Performed By: #### L IPID, CMP, T4, TSH, FT3 #### [facility] [address] [address] [address] Mendel Herron PROF 14(COMP METB)on 023 Albumin [Mass/Vol] 3.7 g/dL Normal 3.4-5.0 [facility] Comment on above: Performed By: #### L IPID, CMP, T4, TSH, FT3 #### [facility] [address] [place] [address] Dr. Mendel Herron Albumin/Globulin [Mass ratio] 0.9 {ratio} Normal [facility] Comment on above: Performed By: #### L IPID, CMP, T4, TSH, FT3 #### [facility] [address] [address] [address] Mendel Herron ALP [Catalytic activity/Vol] 110 U/L Normal 46-116 [facility] Comment on above: Performed By: #### L IPID, CMP, T4, TSH, FT3 #### [facility] [address] [address] [address] Mendel Herron ALT [Catalytic activity/Vol] 25 U/L Normal 14-59 [facility] Comment on above: Performed By: #### L IPID, CMP, T4, TSH, FT3 #### [facility] [address] [address] [address] Mendel Herron Anion gap [Moles/Vol] 14.0 mmol/L Normal [facility] Comment on above: Performed By: #### L IPID, CMP, T4, TSH, FT3 #### [facility] [address] [address] [address] Mendel Herron AST [Catalytic activity/Vol] 16 U/L Normal 15-37 [facility] Comment on above: Performed By: #### L IPID, CMP, T4, TSH, FT3 #### [facility] [address] [address] [address] Mendel Herron Bilirubin [Mass/Vol] 0.6 mg/dL Normal 0.2-1.0 [facility] Comment on above: Performed By: #### L IPID, CMP, T4, TSH, FT3 #### [facility] [address] [address] [address] Mendel Hreron Calcium [Mass/Vol] 9.3 mg/dL Normal 8.5-10.1 [facility] Comment on above: Performed By: #### L IPID, CMP, T4, TSH, FT3 #### [facility] [address] [place] [address] Dr. Mendel Herron Chloride [Moles/Vol] 103 mmol/L Normal 98-107 [facility] Comment on above: Performed By: #### L IPID, CMP, T4, TSH, FT3 #### [facility] [address] [address] [address] Mendel Herron CO2 [Moles/Vol] 27.3 mmol/L Normal 21.0-32.[address] [facility] Comment on above: Performed By: #### L IPID, CMP, T4, TSH, FT3 #### [facility] [address] [place] [address] Dr. Mendel Herron Creatinine [Mass/Vol] 0.71 mg/dL Normal 0.55-1.02 [facility] Comment on above: Performed By: #### L IPID, CMP, T4, TSH, FT3 #### [facility] [address] [address] [address] Mendel Herron EGFR-AF ALBANIAN >60 Normal >=60 [facility] Comment on above: Performed By: #### L IPID, CMP, T4, TSH, FT3 #### [facility] [address] [address] [address] Mendel Herron EGFR-NON AF ALBANIAN >60 Normal >=60 [facility] Comment on above: Performed By: #### L IPID, CMP, T4, TSH, FT3 #### [facility] [address] [address] [address] Mendel Herron Globulin (S) [Mass/Vol] 4.3 g/dL Normal [facility] Comment on above: Performed By: #### L IPID, CMP, T4, TSH, FT3 #### [facility] [address] [address] [address] Mendel Herron Glucose [Mass/Vol] 102 mg/dL Normal 74-106 [facility] Comment on above: Performed By: #### L IPID, CMP, T4, TSH, FT3 #### [facility] [address] [place] [address] Dr. Mendel Herron Potassium [Moles/Vol] 4.3 mmol/L Normal 3.5-5.1 [facility] Comment on above: Performed By: #### L IPID, CMP, T4, TSH, FT3 #### [facility] [address] [place] [address] Dr. Mendel Herron Protein [Mass/Vol] 8.0 g/dL Normal 6.4-8.2 [facility] Comment on above: Performed By: #### L IPID, CMP, T4, TSH, FT3 #### [facility] [address] [place] [address] Dr. Mendel Herron Sodium [Moles/Vol] 140 mmol/L Normal 136-145 [facility] Comment on above: Performed By: #### L IPID, CMP, T4, TSH, FT3 #### [facility] [address] [place] [address] Dr. Mendel Herron Urea nitrogen [Mass/Vol] 19.0 mg/dL Critically high 7.0-18.0 [facility] Comment on above: Performed By: #### L IPID, CMP, T4, TSH, FT3 #### [facility] [address] [place] [address] Dr. Mendel Herron Urea nitrogen/Creatinine [Mass ratio] 26.8 mg/mg Normal [facility] Comment on above: Performed By: #### L IPID, CMP, T4, TSH, FT3 #### [facility] [address] [address] [address] Mendel Herron Covid-19 PCR ([facility])on 06-19 SARS-CoV-2 (COVID-19) RNA DEIRDRE+probe Ql (Unsp spec) Not detected Normal NOT DETECTED [facility] Comment on above: Result Comment: This test is not yet approved or cleared by the [place] FDA. When there are no FDA-approved or cleared tests available, and other criteria are met, FDA can make tests available under an emergency access mechanism called an Emergency Use Authorization (EUA). The EUA for this test is supported by the [place] of Health and Human Service's (HHS's) declaration [...] consistent with SARS-CoV-2. Performed By: #### C VDTB #### [facility] [address] [place] [address] Dr. Mendel Herron INFLUENZA A AND B AGon 07-16 [facility] SEE BELOW Normal [facility] Comment on above: Result Comment: Nega tive for Flu A protein angiten. Infection due to Flu A cannot be ruled out. Flu A angiten in the sample may be below the detection limit of the test. Performed By: #### L IPID, CMP, T4, TSH, FT3 #### [facility] [address] [place] [address] Dr. Mendel Herron INFLUBNEG SEE BELOW Normal [facility] Comment on above: Result Comment: Nega tive for Flu B protein antigen. Infection due to Flu B cannot be ruled out. Flu B antigen in the sample may be below the detection limit of the test. Performed By: #### L IPID, CMP, T4, TSH, FT3 #### [facility] [address] [address] [address] Mendel Herron INFLUENZA A AG Negative Normal NEGATIVE SEE COMMENT [facility] Comment on above: Performed By: #### L IPID, CMP, T4, TSH, FT3 #### [facility] [address] [address] [address] Mendel Herron INFLUENZA B AG Negative Normal NEGATIVE SEE COMMENT [facility] Comment on above: Performed By: #### L IPID, CMP, T4, TSH, FT3 #### [facility] [address] [address] [address] Mendel Herron Covid-19 PCR ([facility])on 04-19 SARS-CoV-2 (COVID-19) RNA DEIRDRE+probe Ql (Unsp spec) Not detected Normal NOT DETECTED [facility] Comment on above: Result Comment: This test is not yet approved or cleared by the [place] FDA. When there are no FDA-approved or cleared tests available, and other criteria are met, FDA can make tests available under an emergency access mechanism called an Emergency Use Authorization (EUA). The EUA for this test is supported by the [place] of Health and Human Service's (HHS's) declaration [...] L IPID, CMP, T4, TSH, FT3 #### [facility] [address] [address] [address] Mendel Herron INFLUENZA A AND B AGon 05-11 INFLUANEGH SEE BELOW Normal [facility] Comment on above: Result Comment: Nega tive for Flu A protein angiten. Infection due to Flu A cannot be ruled out. Flu A angiten in the sample may be below the detection limit of the test. Performed By: #### L IPID, CMP, T4, TSH, FT3 #### [facility] [address] [address] [address] Mendel Herron [facility] SEE BELOW Normal [facility] Comment on above: Result Comment: Nega tive for Flu B protein antigen. Infection due to Flu B cannot be ruled out. Flu B antigen in the sample may be below the detection limit of the test. Performed By: #### L IPID, CMP, T4, TSH, FT3 #### [facility] [address] [address] [address] Mendel Herron INFLUENZA A AG Negative Normal NEGATIVE SEE COMMENT [facility] Comment on above: Performed By: #### L IPID, CMP, T4, TSH, FT3 #### [facility] [address] [address] [address] Mendel Herron INFLUENZA B AG Negative Normal NEGATIVE SEE COMMENT [facility] Comment on above: Performed By: #### L IPID, CMP, T4, TSH, FT3 #### [facility] [address] [address] [address] Mendel Herron INTERNAL CONTROLS Within Normal Limits Normal Wi thin Normal Limits [facility] Comment on above: Performed By: #### L IPID, CMP, T4, TSH, FT3 #### [facility] [address] [address] [address] Mendel Herron Comprehensive Metabolic Empo n 12-23-2021 Albumin [Mass/Vol] 3.7 g/dL Normal 3.2-5.5 [facility] Comment on above: Performed By: #### E BS CMP, EBS LIPID #### [facility] [address] Albumin/Globulin [Mass ratio] 1.0 {ratio} Normal [facility] Comment on above: Performed By: #### E BS CMP, EBS LIPID #### [facility] [address] [place] [address] [place] ALP [Catalytic activity/Vol] 159 U/L High 32-92 [facility] Comment on above: Performed By: #### E BS CMP, EBS LIPID #### [facility] [address] [id number] [facility] ALT [Catalytic activity/Vol] 28 U/L Normal 10-60 [facility] Comment on above: Performed By: #### E BS CMP, EBS LIPID #### [facility] [address] [id number] [facility] AST [Catalytic activity/Vol] 27 U/L Normal 10-42 [facility] Comment on above: Performed By: #### E BS CMP, EBS LIPID #### [facility] [address] [id number] [facility] Bilirubin [Mass/Vol] 1.2 mg/dL Normal 0.3-1.2 [facility] Comment on above: Performed By: #### E BS CMP, EBS LIPID #### [facility] [address] Calcium [Mass/Vol] 9.2 mg/dL Normal 8.2-10.2 [facility] Comment on above: Performed By: #### E BS CMP, EBS LIPID #### [facility] [address] [place] [address] [place] Chloride [Moles/Vol] 100 mmol/L Normal 95-114 [facility] Comment on above: Performed By: #### E BS CMP, EBS LIPID #### [facility] [address] [place] [address] [place] CO2 [Moles/Vol] 20.6 mmol/L Low 22.0-30.0 [facility] Comment on above: Performed By: #### E BS CMP, EBS LIPID #### [facility] [address] [id number] [place] Creatinine [Mass/Vol] 0.57 mg/dL Normal 0.44-1.03 [facility] Comment on above: Performed By: #### E BS CMP, EBS LIPID #### [facility] [address] [id number] [place] Estimated GFR ( Ni > 60 Normal [facility] Comment on above: Result Comment: GFR estimated reference range: According to KDOQI guidelines, <60 ml/min/1.73m2 is sufficient to diagnose a patient with chronic kidney disease. Performed By: #### E BS CMP, EBS LIPID #### [address] Estimated GFR (Non- Am > 60 Normal [facility] Comment on above: Performed By: #### E BS CMP, EBS LIPID #### [address] Globulin (S) [Mass/Vol] 3.7 g/dL Normal [facility] Comment on above: Performed By: #### E BS CMP, EBS LIPID #### [address] Glucose [Mass/Vol] 100 mg/dL Normal 70-100 [facility] Comment on above: Performed By: #### E BS CMP, EBS LIPID #### [address] Potassium [Moles/Vol] 3.9 mmol/L Normal 3.5-5.1 [facility] Comment on above: Performed By: #### E BS CMP, EBS LIPID #### [address] Protein [Mass/Vol] 7.4 g/dL Normal 6.1-7.9 [facility] Comment on above: Performed By: #### E BS CMP, EBS LIPID #### [address] Sodium [Moles/Vol] 135 mmol/L Low 136-146 [facility] Comment on above: Performed By: #### E BS CMP, EBS LIPID #### [address] Urea nitrogen [Mass/Vol] 12 mg/dL Normal 9-23 [facility] Comment on above: Performed By: #### E BS CMP, EBS LIPID #### [facility] [address] [place] [address] Lipid Profileon 12-23-2021 Cholesterol [Mass/Vol] 213 mg/dL High 140-200 [facility] Comment on above: Result Comment: Chol less than 200 mg/dl low risk Chol 201-239 mg/dl borderline risk Chol 240 mg/dl and greater high risk Performed By: #### E BS CMP, EBS LIPID #### [facility] [address] Cholesterol in HDL [Mass/Vol] 36 mg/dL Normal 35-85 [facility] Comment on above: Result Comment: HDL CHOL ATP-III CLASSIFICATION Cardiovascular Risk HDL > or equal to 60 mg/dL LOW HDL < 40 mg/dL HIGH Performed By: #### E BS CMP, EBS LIPID #### [facility] [address] Cholesterol.total/Ch olesterol in HDL [Mass ratio] 5.9 {ratio} Normal <5.0 [facility] Comment on above: Result Comment: PERF ORMED BY: [place] [address] PATHOLOGIST [employer]ASS[employer] INSPECTOR MARIBEL AGUILLON M.D. Performed By: #### E BS CMP, EBS LIPID #### [facility] [address] LDL Cholesterol,Calculat ed 151 mg/dL High 0-100 [facility] Comment on above: Result Comment: LDL ATP III CLASSIFICATION LDL less than 100 mg/dL Optimal LDL 100-129 mg/dL Near or above optimal LDL 130-159 mg/dL Borderline high LDL 160-189 mg/dL High LDL greater than 189 mg/dL Very high Performed By: #### E BS CMP, EBS LIPID #### [facility] [address] [place] [address] [place] Triglyceride w/Reflex 129 mg/dL Normal 35-149 [facility] Comment on above: Result Comment: TRIG ATP III CLASSIFICATION TRIG less than 150 mg/dL Normal TRIG 150-199 mg/dL Borderline high TRIG 200-500 mg/dL High TRIG greater than 500 mg/dL Very high Standard traceable to the Center for Disease Conrtrol and Prevention (CDC) test method. Performed By: #### E BS CMP, EBS LIPID #### [facility] [address] [id number] [facility] VLDL CHOLESTEROL 25 mg/dL Normal [facility] Comment on above: Performed By: #### E BS CMP, EBS LIPID #### [facility] [address] [id number] [facility] Covid-19 PCR (CVDTB)on 11-16 SARS-CoV-2 (COVID-19) RNA DEIRDRE+probe Ql (Unsp spec) Detected Critically abnormal NOT DETECTED [facility] Comment on above: Result Comment: This test is not yet approved or cleared by the [place] FDA. When there are no FDA-approved or cleared tests available, and other criteria are met, FDA can make tests available under an emergency access mechanism called an Emergency Use Authorization (EUA). The EUA for this test is supported by the [place] of Health and Human Service's declaration that [...] used). Performed By: #### C VDTBH #### [facility] [address] [place] [address] Dr. Mendel Herron INFLUENZA A AND B AGon 12-02 [facility] SEE BELOW Normal [facility] Comment on above: Result Comment: Nega tive for Flu A protein angiten. Infection due to Flu A cannot be ruled out. Flu A angiten in the sample may be below the detection limit of the test. Performed By: #### L IPID, CMP, T4, TSH, FT3 #### [facility] [address] [place] [address] Dr. Mendel Herron INFLUBNEG SEE BELOW Normal [facility] Comment on above: Result Comment: Nega tive for Flu B protein antigen. Infection due to Flu B cannot be ruled out. Flu B antigen in the sample may be below the detection limit of the test. Performed By: #### L IPID, CMP, T4, TSH, FT3 #### [facility] [address] [place], [place] [address] Dr. Mendel Herron INFLUENZA A AG Negative Normal NEGATIVE SEE COMMENT [facility] Comment on above: Performed By: #### L IPID, CMP, T4, TSH, FT3 #### [facility] [address] [place], [place] [address] Dr. Mendel Herron INFLUENZA B AG Negative Normal NEGATIVE SEE COMMENT [facility] Comment on above: Performed By: #### L IPID, CMP, T4, TSH, FT3 #### [facility] [address] [place], [place] [address] Dr. Mendel Herron INTERNAL CONTROLS Within Normal Limits Normal Wi thin Normal Limits [facility] Comment on above: Performed By: #### L IPID, CMP, T4, TSH, FT3 #### [facility] [address] [place], [place] [address] Dr. Mendel Herron Cardiovascular Lab Reporton 08-18-2021 Cardiovascular Lab Report [facility] Patient Name: [facility] S MR #: [id number] Department of Physician: Curtis Martinez MD Medicine Service Date: 08/18/2021 Division of Birthdate: 1970 Cardiology Room #: Adult Cardiovascular Services [address] [address] Cardiovascular Laboratory Report ATRIAL FLUTTER ABLATION AND [...] ab (more content not included)... Normal [facility] BILL Antinuclear Antibodieson 04-23-2021 Antinuclear Abs, IFA Negative Normal . [facility] Comment on above: Result Comment: Nega tive <1:80 Borderline 1:80 Positive >1:80 ICAP nomenclature: AC-0 For more information about Hep-2 cell patterns use ANApatterns.org, the official website for the International Consensus on Antinuclear Antibody (BILL) Patterns (ICAP). Performed at: - [facility] [id number] Information Consultant: Ger Yen PhD, Phone: [phone] PERFORMED BY: [place] [address] PATHOLOGIST MOTOR AND CHASSIS INSPECTOR MARIBEL AGUILLON M.D. Performed By: #### E SR, CRP, CBC, CREAT #### [address] #### BILL #### [facility] , C-Reactive Proteinon 021 C-Reactive Protein 0.7 mg/dL Normal 0.0-1.0 [facility] Comment on above: Result Comment: PERF ORMED BY: [place] [address] PATHOLOGIST MOTOR AND CHASSIS INSPECTOR MARIBEL AGUILLON M.D. Performed By: #### E SR, CRP, CBC, CREAT #### [facility] [address] [place] [address] #### BILL #### [facility] , Complement C3on 04-23-2021 Complement C3 170 mg/dL High 82-167 [facility] Comment on above: Result Comment: Perf ormed at: [address] [id number] Information Consultant: Ger Yen PhD, Phone: [phone] Performed By: #### A DDONUAPLUS #### [address] #### CH50, C3, C4 #### [facility] , Complement C4on 04-23-2021 Complement C4 14 mg/dL Normal 12-38 [facility] Comment on above: Performed By: #### A DDONUAPLUS #### [address] #### CH50, C3, C4 #### [facility] , Complement Total (CH50)on Complement Total (CH50) >60 Normal >41 [facility] Comment on above: Result Comment: Age [...] determine out of range values. Performed at: [id number] [id number] Information Consultant: Ger Yen PhD, Phone: [phone] PERFORMED BY: [place] [address] PATHOLOGIST MOTOR AND CHASSIS INSPECTOR MARIBEL AGUILLON M.D. Performed By: #### E BS CMP, EBS LIPID #### [address] Complete Blood Count Auto Di ffon 04-23-2021 Basophils (Bld) [#/Vol] 0.1 10*3/uL Normal 0.0-0.2 [facility] Comment on above: Performed By: #### E SR, CRP, CBC, CREAT #### [address] #### BILL #### [facility] , Basophils/100 WBC (Bld) 0.7 % Normal . [facility] Comment on above: Performed By: #### E SR, CRP, CBC, CREAT #### [address] #### BILL #### [facility] , Eosinophils (Bld) [#/Vol] 0.1 10*3/uL Normal 0.0-0.45 [facility] Comment on above: Performed By: #### E SR, CRP, CBC, CREAT #### [address] #### BILL #### [facility] , Eosinophils/100 WBC (Bld) 0.5 % Normal . [facility] Comment on above: Performed By: #### E SR, CRP, CBC, CREAT #### [address] #### BILL #### [facility] , Erythrocyte distribution width (RBC) [Ratio] 18.0 % High 11.9-15.3 [facility] Comment on above: Performed By: #### E SR, CRP, CBC, CREAT #### [place] [address] [place] #### BILL #### [facility] , Hematocrit (Bld) [Volume fraction] 31.6 % Low 34.0-46.4 [facility] Comment on above: Performed By: #### E SR, CRP, CBC, CREAT #### [facility] [address] [place] [address] #### BILL #### [facility] , Hemoglobin (Bld) [Mass/Vol] 9.8 g/dL Low 11.8-15.4 [facility] Comment on above: Performed By: #### E SR, CRP, CBC, CREAT #### [address] #### BILL #### [facility] , Lymphocytes (Bld) [#/Vol] 1.7 10*3/uL Normal 1.00-4.8 [facility] Comment on above: Performed By: #### E SR, CRP, CBC, CREAT #### [address] #### BLIL #### [facility] , Lymphocytes/100 WBC (Bld) 15.0 % Normal . [facility] Comment on above: Performed By: #### E SR, CRP, CBC, CREAT #### [address] #### BILL #### [facility] , MCH (RBC) [Entitic mass] 24.8 pg Normal 24.7-34.3 [facility] Comment on above: Performed By: #### E SR, CRP, CBC, CREAT #### [place] [address] [place] #### BILL #### [facility] , MCV (RBC) [Entitic vol] 80.1 fL Normal 80-100 [facility] Comment on above: Performed By: #### E SR, CRP, CBC, CREAT #### [place] [address] [place] #### BILL #### [facility] , Mean Corpuscular HGB Conc 31.0 g/dL Low 32.0-35.0 [facility] Comment on above: Performed By: #### E SR, CRP, CBC, CREAT #### [address] #### BILL #### [facility] , Monocytes (Bld) [#/Vol] 0.5 10*3/uL Normal 0.0-0.8 [facility] Comment on above: Performed By: #### E SR, CRP, CBC, CREAT #### [place] [address] [place] #### BILL #### [facility] , Monocytes/100 WBC (Bld) 4.6 % Normal . [facility] Comment on above: Performed By: #### E SR, CRP, CBC, CREAT #### [address] #### BILL #### [facility] , Neutrophils (Bld) [#/Vol] 9.1 10*3/uL High 1.8-7.7 [facility] Comment on above: Performed By: #### E SR, CRP, CBC, CREAT #### [place] [address] [place] #### BILL #### [facility] , Neutrophils/100 WBC (Bld) 79.2 % Normal . [facility] Comment on above: Performed By: #### E SR, CRP, CBC, CREAT #### [facility] [address] [place] [address] [place] #### BILL #### [facility] , Nucleated RBC/100 WBC (Bld) [Ratio] 0.1 % Normal 0-0.5 [facility] Comment on above: Performed By: #### E SR, CRP, CBC, CREAT #### [address] [place] [address] [place] #### BILL #### [facility] , Platelet mean volume (Bld) [Entitic vol] 8.3 fL Normal 6.3-10.7 [facility] Comment on above: Performed By: #### E SR, CRP, CBC, CREAT #### [facility] [address] [place] [address] [place] #### BILL #### [facility] , Platelets (Bld) [#/Vol] 336 10*3/uL Normal 150-450 [facility] Comment on above: Performed By: #### E SR, CRP, CBC, CREAT #### [facility] [address] [place] [address] #### BILL #### [facility] , RBC (Bld) [#/Vol] 3.94 10*6/uL Normal 3.60-5.00 [facility] Comment on above: Performed By: #### E SR, CRP, CBC, CREAT #### [facility] [address] [place] [address] #### BILL #### [facility] , WBC (Bld) [#/Vol] 11.5 10*3/uL High 4.5-11.0 [facility] Comment on above: Performed By: #### E SR, CRP, CBC, CREAT #### [facility] [address] [place] [address] [place] #### BILL #### [facility] , Creatinineon 04-23-2021 Creatinine [Mass/Vol] 0.75 mg/dL Normal 0.44-1.03 [facility] Comment on above: Performed By: #### E SR, CRP, CBC, CREAT #### [facility] [address] [place] [address] [place] #### BILL #### [facility] , Estimated GFR ( Ni > 60 Normal [facility] Comment on above: Result Comment: GFR estimated reference range: According to KDOQI guidelines, <60 ml/min/1.73m2 is sufficient to diagnose a patient with chronic kidney disease. Performed By: #### E SR, CRP, CBC, CREAT #### [address] #### BILL #### [facility] , Estimated GFR (Non- Am > 60 Normal [facility] Comment on above: Performed By: #### E SR, CRP, CBC, CREAT #### [address] #### BILL #### [facility] , Dipstick and Microscopicon 1 Appearance (U) Clear Normal Clear [facility] Comment on above: Order Comment: Name Collection Type:: Clean-Voided Midstream Performed By: #### A DDONUAPLUS #### [address] #### CH50, C3, C4 #### [facility] , Bacteria,Urine None Seen Normal None Seen [facility] Comment on above: Order Comment: Name Collection Type:: Clean-Voided Midstream Performed By: #### A DDONUAPLUS #### [address] #### CH50, C3, C4 #### [facility] , Bilirubin,Urine Negative Normal Negative [facility] Comment on above: Order Comment: Name Collection Type:: Clean-Voided Midstream Performed By: #### A DDONUAPLUS #### [place] [address] [place] #### CH50, C3, C4 #### [facility] , Color (U) Yellow Normal Yellow [facility] Comment on above: Order Comment: Name Collection Type:: Clean-Voided Midstream Performed By: #### A DDONUAPLUS #### [address] #### CH50, C3, C4 #### [facility] , Glucose Ql (U) 100 mg/dL High Normal [facility] Comment on above: Order Comment: Name Collection Type:: Clean-Voided Midstream Performed By: #### A DDONUAPLUS #### [address] #### CH50, C3, C4 #### [facility] , Hyaline Casts,Urine 0-8 Normal 0-8 [facility] Comment on above: Order Comment: Name Collection Type:: Clean-Voided Midstream Result Comment: PERF ORMED BY: [place] [address] PATHOLOGIST MOTOR AND [employer]ASSIS INSPECTOR MARIBEL AGUILLON M.D. Performed By: #### A DDONUAPLUS #### [address] #### CH50, C3, C4 #### [facility] , Ketones Ql (U) Negative Normal Negative [facility] Comment on above: Order Comment: Name Collection Type:: Clean-Voided Midstream Performed By: #### A DDONUAPLUS #### [address] #### CH50, C3, C4 #### [facility] , Leukocyte esterase Test strip Ql (U) Negative Normal Negative [facility] Comment on above: Order Comment: Name Collection Type:: Clean-Voided Midstream Performed By: #### A DDONUAPLUS #### [address] #### CH50, C3, C4 #### [facility] , Nitrite,Urine Negative Normal Negative [facility] Comment on above: Order Comment: Name Collection Type:: Clean-Voided Midstream Performed By: #### A DDONUAPLUS #### [address] #### CH50, C3, C4 #### [facility] , Occult Blood,Urine Negative Normal Negative [facility] Comment on above: Order Comment: Name Collection Type:: Clean-Voided Midstream Performed By: #### A DDONUAPLUS #### [address] #### CH50, C3, C4 #### [facility] , pH (U) 5.0 [pH] Normal 5.0-9.0 [facility] Comment on above: Order Comment: Name Collection Type:: Clean-Voided Midstream Performed By: #### A DDONUAPLUS #### [address] #### CH50, C3, C4 #### [facility] , Protein,Urine Negative Normal Negative [facility] Comment on above: Order Comment: Name Collection Type:: Clean-Voided Midstream Performed By: #### A DDONUAPLUS #### [address] #### CH50, C3, C4 #### [facility] , RBC,Urine None Seen Normal 0-4 [facility] Comment on above: Order Comment: Name Collection Type:: Clean-Voided Midstream Performed By: #### A DDONUAPLUS #### [facility] [address] [place] [address] #### CH50, C3, C4 #### [facility] , Specificy [place],Urine 1.009 Normal 1.001-1.030 [facility] Comment on above: Order Comment: Name Collection Type:: Clean-Voided Midstream Performed By: #### A DDONUAPLUS #### [address] #### CH50, C3, C4 #### [facility] , Squamous Epithelial Cell,Urine 0-1 Normal 0-2 [facility] Comment on above: Order Comment: Name Collection Type:: Clean-Voided Midstream Performed By: #### A DDONUAPLUS #### [address] #### CH50, C3, C4 #### [facility] , Urobilinogen,Urine Normal Normal Normal [facility] Comment on above: Order Comment: Name Collection Type:: Clean-Voided Midstream Performed By: #### A DDONUAPLUS #### [address] #### CH50, C3, C4 #### [facility] , WBC LM.HPF (Urine sed) [#/Area] 0 /[HPF] Normal 0-4 [facility] Comment on above: Order Comment: Name Collection Type:: Clean-Voided Midstream Performed By: #### A DDONUAPLUS #### [address] #### CH50, C3, C4 #### [facility] , Erythrocyte Sedimentation Ra ryley 04-23-2021 ESR (Bld) [Velocity] 55 mm/h High 0-29 [facility] Comment on above: Result Comment: PERF ORMED BY: [place] [address] PATHOLOGIST MOTOR AND [employer]ASS[employer] INSPECTOR MARIBEL AGUILLON M.D. Performed By: #### E SR, CRP, CBC, CREAT #### [address] #### BILL #### [facility] , BASIC METABOLIC PANELon 03-20 Calcium [Mass/Vol] 8.7 mg/dL Normal 8.6-10.3 [facility] Comment on above: Order Comment: No: D o not add to previous draw Performed By: #### 5 [id number], [id number] #### [facility] [address] [place] [address], [place] Chloride [Moles/Vol] 97 mmol/L Low 98-107 [facility] Comment on above: Order Comment: No: D o not add to previous draw Performed By: #### 5 7307, [id number] #### [facility] [address] [place] [address], [place] CO2 [Moles/Vol] 36 mmol/L High 21-31 [facility] Comment on above: Order Comment: No: D o not add to previous draw Performed By: #### 5 7307, [id number] #### [facility] [address] [place] [address], [place] Creatinine [Mass/Vol] 0.74 mg/dL Normal 0.60-1.20 [facility] Comment on above: Order Comment: No: D o not add to previous draw Performed By: #### 5 7307, [id number] #### [facility] [address] [place] [address], [place] GFR/1.73 sq M.predicted among blacks MDRD (S/P/Bld) [Vol rate/Area] mL/min/{1.73_m2} Normal >60 [facility] Comment on above: Order Comment: No: D o not add to previous draw Performed By: #### 5 7307, 81577 #### [facility] [address] [place] [address], [place] GFR/1.73 sq M.predicted among non-blacks MDRD (S/P/Bld) [Vol rate/Area] mL/min/{1.73_m2} Normal >60 [facility] Comment on above: Order Comment: No: D o not add to previous draw Performed By: #### 5 7307, 45683 #### [facility] [address] [place] [address], [place] Glucose [Mass/Vol] 123 mg/dL High 70-100 [facility] Comment on above: Order Comment: No: D o not add to previous draw Performed By: #### 5 7307, 75417 #### [facility] [address] [place] [address], [place] Potassium [Moles/Vol] 4.3 mmol/L Normal 3.5-5.1 [facility] Comment on above: Order Comment: No: D o not add to previous draw Performed By: #### 5 7307, 54543 #### [facility] [address] [place] [address], [place] Sodium [Moles/Vol] 139 mmol/L Normal 136-145 The [facility] Comment on above: Order Comment: No: D o not add to previous draw Performed By: #### 5 7307, 17168 #### [facility] [address] [place] [address], [place] Urea nitrogen [Mass/Vol] 24 mg/dL Normal 7-25 [facility] Comment on above: Order Comment: No: D o not add to previous draw Performed By: #### 5 7307, 17698 #### [facility] [address] [place] [address], [place] CBC COMPLETE BLOOD COUNTon 0 04-11-2021 Erythrocyte distribution width (RBC) [Ratio] 16.8 % High 11.5-15.0 [facility] Comment on above: Order Comment: No: D o not add to previous draw Performed By: #### 5 7307, 58705 #### [facility] [address] [place] [address], [place] Hematocrit (Bld) [Volume fraction] 29.7 % Low 36.0-45.0 [facility] Comment on above: Order Comment: No: D o not add to previous draw Performed By: #### 5 7307, 54480 #### [facility] [address] [place] [address], [place] Hemoglobin (Bld) [Mass/Vol] 8.9 g/dL Low 12.0-15.0 [facility] Comment on above: Order Comment: No: D o not add to previous draw Performed By: #### 5 73, 21769 #### [facility] [address] [place] [address], [facility] MCH (RBC) [Entitic mass] 25.4 pg Low 27.0-33.0 [facility] Comment on above: Order Comment: No: D o not add to previous draw Performed By: #### 5 73, 11612 #### [facility] [address] [place] [address], [facility] MCHC (RBC) [Mass/Vol] 30.0 g/dL Low 32.0-35.0 [facility] Comment on above: Order Comment: No: D o not add to previous draw Performed By: #### 5 73, 63025 #### [facility] [address] [facility] [place] [address], [facility] MCV (RBC) [Entitic vol] 84.9 fL Normal 82.0-98.0 [facility] Comment on above: Order Comment: No: D o not add to previous draw Performed By: #### 5 73, 40619 #### [facility] 3000 [facility]. [address] Nucleated RBC/100 WBC (Bld) [Ratio] 0 % Normal 0-0 [facility] Comment on above: Order Comment: No: D o not add to previous draw Performed By: #### 5 7307, 94640 #### [facility] [address] [facility] [place] [address], [facility] PLAT CNT 446 10*3/uL High 150-400 [facility] Comment on above: Order Comment: No: D o not add to previous draw Performed By: #### 5 7307, 98777 #### [facility] [address] [place] [address], [facility] RBC (Bld) [#/Vol] 3.50 10*6/uL Low 3.80-5.00 [facility] Comment on above: Order Comment: No: D o not add to previous draw Performed By: #### 5 7307, 68179 #### [facility] [address] WBC (Bld) [#/Vol] 16.54 10*3/uL High 4.00-10.60 [facility] Comment on above: Order Comment: No: D o not add to previous draw Performed By: #### 5 7307, 58042 #### [facility] [address] [facility] Cardiovascular Lab Reporton 04-11-2021 Cardiovascular Lab Report [facility] Patient Name: [facility] MR #: [id number] Department of Physician: London Rodas M.D. Division of Service Date: 04/11/2021 Cardiology Birthdate: 1970 Adult Cardiovascular Room #: 5AB [address] [place] [address] Cardiovascular Laboratory Report PROCEDURE PERFORMED: Transesophageal echocardiogram and cardioversion. INDICATION: Atrial flutter. FELLOW: Dunia Sierra MD PROCEDURE IN DETAIL: Informed consent was obtained from the patient after explaining the indication, risks, benefits, as well as alternatives. The patient understood and agreed, and signed the consent form. The patient was brought to the medical laboratory manager and transesophageal echocardiogram was performed, under conscious [...] Sierra MD Date Trans: 04/11/2021 12:53 P/marixa [id number] cc: Phillip Ann M.D. [address] [place] [address] Normal [facility] MAGNESIUM BLOODon 04-11-2021 Magnesium [Mass/Vol] 2.3 mg/dL Normal 1.9-2.7 [facility] Comment on above: Order Comment: No: D o not add to previous draw Performed By: #### 5 7307, 54621 #### [facility] [address] [facility] [address], [facility] POC GLUCOSE LABon 04-11-2021 Glucose [Mass/Vol] 124 mg/dL High 70-100 [facility] Comment on above: Performed By: #### 5 7307, 38635 #### [facility] [address] [facility] [address], [facility] TROPONIN-Ion 04-11-2021 Troponin I.cardiac [Mass/Vol] 0.06 ng/mL High 0.00-0.04 [facility] Comment on above: Order Comment: No: D o not add to previous draw Result Comment: REFE RENCE RANGES: 0.00 - 0.04 ng/ml NORMAL 0.05 - 0.50 ng/ml INDETERMINATE > 0.50 ng/ml CONSISTENT WITH AN M.I. Performed By: #### 5 7307, 15434 #### [facility] [address] *BLOOD CULTUREon 04-10-2021 *BLOOD CULTURE Clinical Report: (D) Specimen: BLOOD CULTURE Collected: 04/10/2021 09:50 Status: Final Last Updated: 04/15/2021 11:28 (1) Right hand CULT RES (Final) No Growth Day 5 Normal [facility] Comment on above: Order Comment: No: D o not add to previous draw Performed By: #### 5 7307, 44854 #### [facility] [address] [facility] [address] *BLOOD CULTURE Clinical Report: (D) Specimen: BLOOD CULTURE Collected: 04/10/2021 09:50 Status: Final Last Updated: 04/15/2021 11:28 (1) Left hand CULT RES (Final) No Growth Day 5 Normal [facility] Comment on above: Order Comment: No: D o not add to previous draw Performed By: #### 5 7307, 62397 #### [facility] [address] [facility] [address] *SARS-CoV-2 COVID-19on 04-10 SARS-CoV-2 (COVID-19) RNA DEIRDRE+probe Ql (Unsp spec) Not detected Normal Not Detected [facility] Comment on above: Order Comment: No: D o not add to previous draw Performed By: #### 5 7307, 42364 #### [facility] [address] [facility] [address] APTTon 04-10-2021 aPTT Coag (Bld) [Time] 23.4 s Low 25.0-35.0 [facility] Comment on above: Order Comment: [...] THIS PURPOSE. Performed By: #### 5 7307, 01786 #### [facility] [address] aPTT Coag (Bld) [Time] 23.2 s Low 25.0-35.0 [facility] Comment on above: Order Comment: No: [...] THIS PURPOSE. Performed By: #### 5 7307, 96580 #### [facility] [address] [place] [address], [facility] BASIC METABOLIC PANELon 09-2 Calcium [Mass/Vol] 8.6 mg/dL Normal 8.6-10.3 [facility] Comment on above: Order Comment: No: D o not add to previous draw Performed By: #### 1 0, 69490, 79903 #### [facility] [address] [place] [id number], [facility] Chloride [Moles/Vol] 99 mmol/L Normal 98-107 [facility] Comment on above: Order Comment: No: D o not add to previous draw Performed By: #### 1 0, 86501, 64404 #### [facility] [address] [place] [address], [facility] CO2 [Moles/Vol] 32 mmol/L High 21-31 [facility] Comment on above: Order Comment: No: D o not add to previous draw Performed By: #### 1 0, 29660, 45304 #### [facility] [address] [place] [address], [place] Creatinine [Mass/Vol] 0.84 mg/dL Normal 0.60-1.20 [facility] Comment on above: Order Comment: No: D o not add to previous draw Performed By: #### 1 0, 44946, 17698 #### [facility] [address] [place] [address], [place] GFR/1.73 sq M.predicted among blacks MDRD (S/P/Bld) [Vol rate/Area] mL/min/{1.73_m2} Normal >60 [facility] Comment on above: Order Comment: No: D o not add to previous draw Performed By: #### 1 0, 71695, 61253 #### [facility] [address] [place] [address], [place] GFR/1.73 sq M.predicted among non-blacks MDRD (S/P/Bld) [Vol rate/Area] mL/min/{1.73_m2} Normal >60 [facility] Comment on above: Order Comment: No: D o not add to previous draw Performed By: #### 1 0, 37635, 39738 #### [facility] [address] [place] [address], [place] Glucose [Mass/Vol] 117 mg/dL High 70-100 [facility] Comment on above: Order Comment: No: D o not add to previous draw Performed By: #### 1 0, 03200, 53530 #### [facility] [address] [place] [address], [place] Potassium [Moles/Vol] 3.9 mmol/L Normal 3.5-5.1 [facility] Comment on above: Order Comment: No: D o not add to previous draw Performed By: #### 1 0, 12484, 34501 #### [facility] [address] [place] [address], [place] Sodium [Moles/Vol] 139 mmol/L Normal 136-145 [facility] Comment on above: Order Comment: No: D o not add to previous draw Performed By: #### 1 0, 86771, 33224 #### [facility] [address] [place] [address], [place] Urea nitrogen [Mass/Vol] 19 mg/dL Normal 7-25 [facility] Comment on above: Order Comment: No: D o not add to previous draw Performed By: #### 1 0070, 77914, 96989 #### [facility] [address] BNP (B-TYPE NATRIURETIC PEPT MARILYN)on 04-10-2021 Natriuretic peptide B (Bld) [Mass/Vol] 259 pg/mL High 0-100 [facility] Comment on above: Order Comment: No: D o not add to previous draw Result Comment: Give n the appropriate clinical setting a BNP result of >100 pg/mL indicates congestive heart failure. Performed By: #### 5 7307, 15826 #### [facility] [address] CBC W/DIFFon 04-10-2021 ABS IMM GRANS 1.1 10*3/uL High 0.0-0.2 [facility] Comment on above: Performed By: #### 5 0103 #### [facility] [address] [facility]. [address] ABS NEUTROPHILS 9.6 10*3/uL High 1.6-7.6 [facility] Comment on above: Performed By: #### 5 0103 #### [facility] [address] [place] [address], [facility] ANISO MODERATE Normal [facility] Comment on above: Performed By: #### 5 0103 #### [facility] [address] [facility] [address], [facility] Basophils (Bld) [#/Vol] 0.1 10*3/uL Normal 0.0-0.2 [facility] Comment on above: Performed By: #### 5 0103 #### [facility] [address] [facility] [place] [address], [facility] Basophils/100 WBC (Bld) 0.7 % Normal 0.0-1.0 [facility] Comment on above: Performed By: #### 5 0103 #### [facility] [address] [place] [address], [facility] Eosinophils (Bld) [#/Vol] 0.1 10*3/uL Normal 0.0-0.5 [facility] Comment on above: Performed By: #### 5 0103 #### [facility] [address] [facility] [place] [address], [facility] Eosinophils/100 WBC (Bld) 0.4 % Normal 0.0-6.0 [facility] Comment on above: Performed By: #### 5 0103 #### [facility] [address] [facility]. [address] Erythrocyte distribution width (RBC) [Ratio] 16.5 % High 11.5-15.0 [facility] Comment on above: Performed By: #### 5 0103 #### [facility] [address] [facility] [address] Hematocrit (Bld) [Volume fraction] 31.2 % Low 36.0-45.0 [facility] Comment on above: Performed By: #### 5 0103 #### [facility] [address] [facility] [address] Hemoglobin (Bld) [Mass/Vol] 9.0 g/dL Low 12.0-15.0 [facility] Comment on above: Performed By: #### 5 0103 #### [facility] [address] [facility] [address] HYPO SLIGHT Normal [facility] Comment on above: Performed By: #### 5 0103 #### [facility] [address] [facility] [address], [facility] IMMATURE GRANS 6.8 % High 0.0-1.0 [facility] Comment on above: Performed By: #### 5 3 #### [facility] [address] [place] [address], [facility] Lymphocytes (Bld) [#/Vol] 4.4 10*3/uL High 1.2-4.0 [facility] Comment on above: Performed By: #### 5 0103 #### [facility] [address] [place] [address], [facility] Lymphocytes/100 WBC (Bld) 26.4 % Normal 20.0-45.0 [facility] Comment on above: Performed By: #### 5 102 #### [facility] [address] [place] [address], [facility] MCH (RBC) [Entitic mass] 25.3 pg Low 27.0-33.0 [facility] Comment on above: Performed By: #### 102 #### [facility] [address] MCHC (RBC) [Mass/Vol] 28.8 g/dL Low 32.0-35.0 [facility] Comment on above: Performed By: #### 5 102 #### [facility] [address] [place] [address], [facility] MCV (RBC) [Entitic vol] 87.6 fL Normal 82.0-98.0 [facility] Comment on above: Performed By: #### 5 3 #### [facility] [address] [place] [address], [facility] Monocytes (Bld) [#/Vol] 1.3 10*3/uL High 0.1-1.0 [facility] Comment on above: Performed By: #### 5 3 #### [facility] [address] [place] [address], [facility] MONOS 7.6 % Normal 5.0-12.0 [facility] Comment on above: Performed By: #### 5 3 #### [facility] 3000 [place] [address], [facility] Neutrophils/100 WBC (Bld) 58.1 % Normal 40.0-72.0 [facility] Comment on above: Performed By: #### 5 0103 #### [facility] [address] [place] [address], [facility] Nucleated RBC/100 WBC (Bld) [Ratio] 1 % High 0-0 [facility] Comment on above: Performed By: #### 5 0103 #### [facility] [address] [place] [address], [facility] PLAT CNT 483 10*3/uL High 150-400 [facility] Comment on above: Performed By: #### 5 0103 #### [facility] [address] [place] [address], [facility] POIK SLIGHT Normal [facility] Comment on above: Performed By: #### 5 0103 #### [facility] [address] [facility] [address], [facility] POLY SLIGHT Normal [facility] Comment on above: Performed By: #### 5 0103 #### [facility] [address] [facility]. [place] [id number], [facility] RBC (Bld) [#/Vol] 3.56 10*6/uL Low 3.80-5.00 [facility] Comment on above: Performed By: #### 5 0103 #### [facility] [address] [facility] [place] [address], [facility] WBC (Bld) [#/Vol] 16.54 10*3/uL High 4.00-10.60 [facility] Comment on above: Performed By: #### 5 3 #### [facility] [address] [place] [id number], [facility] LIPID PROFILEon 04-10-2021 Cholesterol [Mass/Vol] 161 mg/dL Normal 120-200 [facility] Comment on above: Result Comment: CHOL ESTEROL REFERENCE RANGE: 20 YEARS AND OLDER CARDIOVASCULAR RISK Less than 200 mg/dl Low Risk 200 to 239 mg/dl Borderline Risk 240 mg/dl and greater High Risk Performed By: #### 3 1569, 49429, 15469 #### [facility] [address] [place] [address], [place] Cholesterol in HDL [Mass/Vol] 61 mg/dL Normal 23-92 [facility] Comment on above: Result Comment: Slig ht variation in normal range could be due to gender and/or age. HDL CHOLESTEROL REFERENCE RANGE: 20 years and older Cardiovascular Risk > or =60 mg/dL Desirable 40 TO 59 mg/dL Low Risk <40 mg/dL High Risk Performed By: #### 3 1569, 50117, 18404 #### [facility] [address] [place] [address], [place] Cholesterol in LDL [Mass/Vol] 28 mg/dL Normal 0-130 [facility] Comment on above: Result Comment: LDL IS A CALCULATION LDL IS ONLY VALID IF THE TRIG IS LESS THAN 400. Performed By: #### 3 1569, 95990, 08462 #### [facility] [address] [place] [address], [place] Cholesterol.total/Ch olesterol in HDL [Mass ratio] 2.6 {ratio} Normal .0-4.5 [facility] Comment on above: Performed By: #### 3 1569, 14542, 29953 #### [facility] [address] [place] [address], [place] NON-HDL CHOLESTEROL 100 mg/dL Normal [facility] Comment on above: Performed By: #### 3 1569, 04940, 21038 #### [facility] [address] [place] [address], [place] Triglyceride [Mass/Vol] 362 mg/dL High 40-149 [facility] Comment on above: Result Comment: TRIG LYCERIDE REFERENCE RANGE: 20 YEARS AND OLDER CARDIOVASCULAR RISK LESS THAN 150 mg/dl LOW RISK 150 TO 199 mg/dl BORDERLINE RISK 200 mg/dl AND GREATER HIGH RISK Performed By: #### 3 1569, 36637, 97375 #### [facility] [address] [facility] [place] [address], [facility] VLDL CHOL 72 mg/dL High 0-40 [facility] Comment on above: Performed By: #### 3 1569, 14836, 93633 #### [facility] [address] [place] [address], [facility] MAGNESIUM BLOODon 04-10-2021 Magnesium [Mass/Vol] 2.4 mg/dL Normal 1.9-2.7 [facility] Comment on above: Order Comment: No: D o not add to previous draw Performed By: #### 1 0070, 36732, 59040 #### [facility] [address] [facility] [place] [address], [facility] POC GLUCOSE LABon 04-10-2021 Glucose [Mass/Vol] 350 mg/dL High 70-100 [facility] Comment on above: Performed By: #### 5 7307, 63067 #### [facility] [address] [facility] [place] [address], [facility] Glucose [Mass/Vol] 249 mg/dL High 70-100 [facility] Comment on above: Performed By: #### 5 7307, 50138 #### [facility] [address] [facility]. [address] PROCALCITONINon 04-10-2021 PROCALCITONIN 0.09 ng/mL Normal 0.00-0.10 [facility] Comment on above: Order Comment: No: [...] initial PCT<0.5ng/mL Performed By: #### 5 7307, 71225 #### [address] PROTHROMBIN TIMEon 1 INR Coag (PPP) [Relative time] 1.07 {INR} Normal 0.91-1.16 [facility] Comment on above: Order Comment: [...] CHEST 1995;[id number]. Performed By: #### 5 7307, 18738 #### [facility] [address] [place] [address], [facility] PT Coag (PPP) [Time] 13.9 s Normal 12.3-14.8 [facility] Comment on above: Order Comment: No: D o not add to previous draw Result Comment: ALL RESULTS MUST BE INTERPRETED WITH RESPECT TO BLOOD DRAWING ARTIFACT OR DILUTION ERROR OF ANTICOAGULANT AT THE TIME OF SAMPLING. Performed By: #### 5 7307, 03292 #### [facility] [address] [facility] [address] TROPONIN-Ion 04-10-2021 Troponin I.cardiac [Mass/Vol] 0.07 ng/mL High 0.00-0.04 [facility] Comment on above: Order Comment: No: D o not add to previous draw Result Comment: REFE RENCE RANGES: 0.00 - 0.04 ng/ml NORMAL 0.05 - 0.50 ng/ml INDETERMINATE > 0.50 ng/ml CONSISTENT WITH AN M.I. Performed By: #### 3 1569, 25994, 39604 #### [facility] [address] [place] [address], [facility] Troponin I.cardiac [Mass/Vol] 0.07 ng/mL High 0.00-0.04 [facility] Comment on above: Order Comment: No: D o not add to previous draw Result Comment: REFE RENCE RANGES: 0.00 - 0.04 ng/ml NORMAL 0.05 - 0.50 ng/ml INDETERMINATE > 0.50 ng/ml CONSISTENT WITH AN M.I. Performed By: #### 1 0070, 93607, 30964 #### [facility] [address] [place] [address], [facility] TSH3 WITH REFLEX FT4on 04-10 TSH 3RD GENERATION 0.95 uIU/mL Normal 0.34-5.60 [facility] Comment on above: Order Comment: Yes: Add to Previous draw if able Performed By: #### 3 1569 #### [facility] [address] TSH 3RD GENERATION 3.12 uIU/mL Normal 0.34-5.60 [facility] Comment on above: Performed By: #### 3 1569, 35988, 80452 #### [facility] [address] UFH HEPARIN ASSAYon 04-10-20 21 UNFRACTIONATED HEPARIN >1.00 Critically high 0.30-0.70 [facility] Comment on above: Result Comment: Resu lt checked and called. Accurately read back by Haven Avila RN at 1122 per RN patient may have previously been given Eliquis. UFH = 1.36 for pharmacy use Rivaroxaban and Apixaban will interfere with the anti Xa assay used to monitor UFH and LMWH. Performed By: #### 5 7307, 05441 #### [facility] [address] Cardiovascular Lab Reporton 01-30-2021 Cardiovascular Lab Report [facility] Patient Name: [facility] MR #: [id number] Department of Physician: London Ross M.D. Division of Service Date: 01/30/2021 Cardiology Birthdate: 1970 Adult Cardiovascular Room #: Services [facility] [address] [place] [address] Cardiovascular Laboratory Report FINAL IMPRESSIONS: 1. Moderately [...] 5. Follow up with Cardiology in the [facility] Cardiology office in the next 2 [...] right internal jugular vein was obtained. A 6-Mexican glide sheath was inserted without difficulty. A [...] Bear M.D. Date Trans: 01/30/2021 02:48 P/marixa [id number] cc: Phillip Ann M.D. [address], [facility] [id number] [facility] Vital Signs Date Time Vital Sign Value Performing Clinician Iman stafford 04-04-2024 13:58-0400 Blood Pressure Location Juan Miguel NILL [facility] [place] 04-04-2024 13:58-0400 Diastolic blood pressure 76 mm[Hg] Juan Miguel NILL [facility] [place] 04-04-2024 13:58-0400 Heart rate 72 /min Juan Miguel NILL [facility] [place] 04-04-2024 13:58-0400 Respiratory rate 16 /min Juan Miguel NILL [facility] [place] 04-04-2024 13:58-0400 Systolic blood pressure 122 mm[Hg] Juan Miguel NILL [facility] [place] 09-15-2022 15:24-0500 Blood Pressure Location Juan Miguel NILL [facility] [place] 09-15-2022 15:24-0500 Diastolic blood pressure 78 mm[Hg] Juan Miguel NILL [facility] [place] 09-15-2022 15:24-0500 Heart rate 70 /min Juan Miguel NILL [facility] [place] 09-15-2022 15:24-0500 Respiratory rate 16 /min Juan Miguel NILL [facility] [place] 09-15-2022 15:24-0500 Systolic blood pressure 116 mm[Hg] Juan Miguel NILL [facility] [place] Encounters Encounter Date Encounter Type Care Provider Facility Start: 06-09-2024 ambulatory [facility] Start: 05-24-2024 ambulatory [facility] Start: 04-19-2024 End: 04-19-2024 ambulatory Juan Miguel CHAVEZ Facility:[id number] Start: 04-17-2024 ambulatory BESSIE MORRISSEY [facility] Start: 04-13-2024 End: 04-13-2024 ambulatory [facility] Start: 04-13-2024 End: 04-13-2024 Encounter for other preprocedural examination [facility] Start: 04-04-2024 End: 04-04-2024 ambulatory Juan Miguel R NILL Facility: [facility] Start: 04-04-2024 End: 04-04-2024 Patient encounter procedure Juan Miguel R NILL [facility] Start: 01-11-2024 ambulatory [facility] Start: 12-28-2023 ambulatory [facility] Start: 10-26-2023 End: 10-26-2023 ambulatory [facility] Start: 11-17-2022 End: 11-17-2022 ambulatory EMILY ZHONG . Facility:[facility] Start: 10-28-2022 End: 10-28-[address] PHILLIP ANN . Facility:[facility] Start: 09-24-2022 End: 09-24-[address] PHILLIP ANN . Facility:[facility] Start: 09-15-2022 End: 09-15-2022 Patient encounter procedure Juan Miguel Ortiz DAYOL [facility] Start: 09-09-2022 End: 09-10-[address] PHILLIP ANN . Facility:[facility] Start: 08-20-2022 End: 08-21-[address] PHILLIP ANN . Facility:[facility] Start: 08-11-2022 End: 08-12-[address] PHILLIP ANN . Facility:[facility] Start: 08-09-2022 End: 08-09-2022 ambulatory FABRICIO STARK . Facility:[facility] Start: 08-06-2022 End: 08-07-[address] PHILLIP ANN . Facility:[facility] Start: 08-05-2022 End: 08-06-[address] PHILLIP ANN . Facility: Start: 07-16-2022 End: 07-16-[address] PHILLIP ANN . Facility: Start: 05-11-2022 End: 05-11-[address] PHILLIP ANN . Facility: Start: 12-02-2021 End: 12-02-[address] PHILLIP ANN . Facility: Start: 04-10-2021 End: 04-11-2021 Evaluation and management of inpatient PHILLIP ANN Facility:[facility] Start: 01-30-2021 End: 01-31-2021 ambulatory ADAMAB Richie BEAR Facility:[facility] Procedures Date Procedure Procedure Detail Performing Clinician Start: 04-11-2021 Congregational of Cardi ac Rhythm, Single SAMER Sony TORRES Start: 04-11-2021 ULTRASONOGRAPHY OF H EART WITH AORTA, TRANSESOPHAGEAL ABDELMONIEM MOUSTAFA section Juan Miguel Valerio section Juan Miguel Valerio Endoscopy of nose Juan Miguel MONTEZ Excision of cyst of breast Chiquis OSHEAL History of radiofreq uency ablation operation for arrhythmia Juan Miguel CHAVEZ Implantation of inse rtable loop recorder Juan Miguel CHAVEZ Ligation of fallopian tube Chiquis OSHEAL Plan of Treatment Date Care Activity Detail Author Start: 12-02-2022 ambulatory Ambulatory Facility: 1 Immunizations Immunization Date Immunization Notes Care Provider Fa cility 04-18-2022 influenza virus vaccine, unspecified formulation Juan Miguel CHAVEZ [facility] [place] 10-29-2020 SARS-CoV-2 (COVID-19 ) mRNA-1273 vaccine Juan Miguel CHAVEZ [facility] [place] 10-25-2020 SARS-CoV-2 (COVID-19 ) mRNA BNT-162b2 vax Juan Miguel CHAVEZ [facility] [place] Comment on above: Result Comment: 2022: [id number] 10-24-2020 SARS-CoV-2 (COVID-19 ) mRNA BNT-162b2 vax Juan Miguel NILL [facility] 10-04-2020 SARS-CoV-2 (COVID-19 ) mRNA BNT-162b2 vax Juan Miguel NILL [facility] [place] Comment on above: Result Comment: 2022: [id number] 10-03-2020 SARS-CoV-2 (COVID-19 ) mRNA BNT-162b2 vax Juan Miguel NILL [facility] Payers Date Payer Category Payer Unknown [id number] 1970 Unknown [id number] 2.16.8 [id number] 1970 Unknown [id number] 2.16.8 [id number] 1970 Unknown [id number] 2.16.84 0.1.357938.3.579.2.593 1970 Unknown [id number] 2.16.84 0.1.213144.3.579.2.593 1970 Unknown [id number] 2.16.84 0.1.891531.3.579.2.593 1968 Unknown [id number] 2.16.84 0.1.277939.3.579.2.593 1968 Unknown [id number] 2.16.84 0.1.071454.3.579.2.593 1968 Unknown [id number] 2.16.84 0.1.189967.3.579.2.593 1968 Unknown [id number] 2.16.84 0.1.049217.3.579.2.593 1968 Unknown [id number] 2.16.84 0.1.051548.3.579.2.593 1968 Unknown [id number] 2.16.84 0.1.513698.3.579.2.593 1968 Unknown [id number] 2.16.84 0.1.934927.3.579.2.593 1968 Unknown [id number] 2.16.84 0.1.058630.3.579.2.593 1968 Unknown [id number] 2.16.84 0.1.246806.3.579.2.593 1968 Unknown [id number] 2.16.84 0.1.557727.3.579.2.593 1968 Unknown [id number] 2.16.8 40.1.237230.3.579.2.727 1970 Unknown [id number] 2.16.8 40.1.572029.3.579.2.727 1961 Unknown [id number] 1961 Unknown [id number] 1961 Unknown [id number] 1961 Unknown [id number] Social History Date Type Detail Facility Start: 09-15-2022 End: 04-04-2024 Tobacco smoking status Ex-smoker (finding) [facility] Tobacco smoking status Never [facility] [place] Sex Assigned At Female [facility] Medical Equipment Procedure Code Equipment Code Equipment Origin al Text Equipment Identifier Dates lancets, glucome ter, alcohol swabs, testing strips, insulin pen needles, Print Requisition, Supply Start: 08-25-2021 lancets, glucome ter, alcohol swabs, testing strips, insulin pen needles, Print Requisition, Supply Start: 08-25-2021 Functional Status Date Assessment Result Facility 04-04-2024 Functional Status N/A [facility] 09-15-2022 Functional Status N/A [facility] Progress note 04-13-2024 Note Date & Type Note Facility [...] All other systems reviewed and are negative. [facility] Progress note 04-13-2024 Note Date & Type Note Facility 04-13-2024 Note Cardiovascular Medic [facility] SUBJECTIVE Chief Complaint Patient presents [...] trended upwards is a since seen in [place] [facility] 04/28/2023 and was diagnosed with vertigo [...] disease (CMS/HCC) C (more content not included)... [facility] Clinical Note 04-04-2024 Note Date & Type [...] Diabetes Diverticulosis Ep (more content not included)... [facility] Comment on above: Result Comment: Elec tronically Signed By: BRAD DIAZ, Juan Miguel Rivera\Date and Time Signed: 04/04/24 17:16 EDT Progress note 10-26-2023 Note Date & Type Note Facility 10-26-2023 Note Cardiovascular Medic ine [facility] SUBJECTIVE Chief Complaint Patient presents with [...] trended upwards is a since seen in [place] [facility] 04/28/2023 and was diagnosed with vertigo [...] Controlled A. fib episode noted on August 23 and but nothing since then. She does [...] (paroxysmal atrial fi (more content not included)... [facility] Progress note 10-26-2023 Note Date [...] All other systems reviewed and are negative. [facility] Clinical Note 11-17-2022 Note Date [...] by: AUDREY BO Date: 2022-11-17 12:14 [facility] Discharge summary note 04-12-2021 Note Date & Type Note Facility 04-12-2021 Note MR#: [id number] I [facility] Pt. Name: Diana Alvarez Admitted: 04/10/2021 Discharged: 04/11/2021 Date of : 1970 Physician: Orlin Wick MD DISCHARGE SUMMARY PRIMARY DIAGNOSIS: New-onset atrial flutter with RVR. SECONDARY DIAGNOSES: 1. Pulmonary hypertension. 2. COPD. 3. Diabetes. HISTORY OF PRESENT ILLNESS: This patient is a 50-year-old female with past medical history of COPD, hypertension, and diabetes, who was sent from [facility] due to atrial flutter with [...] Wick MD Date Trans: 04/12/2021 03:25 P/marixa [id number] cc: Phillip Ann M.D. [address] [id number] [facility] Evaluation + Plan note Note Date & Type Note Facility Evaluation + Plan note No data available for this section [facility] [place] [facility] Discharge instructions Note Date & Type Note Facility Hospital Discharge instructions No data available for this section [facility] [place] Progress note Note Date & Type Note Facility Progress note No data available for this section [facility] [place] Summary Purpose Family History No Family History Records FoundNo Family History Records FoundNo Family History Records FoundNo Family History Records FoundNo Family History Records Found No data available for this section Advance Directives No Advanced Directives Records FoundNo Advanced Directives Records FoundNo Advanced Directives Records FoundNo Advanced Directives Records FoundNo Advanced Directives Records Found Additional Source Comments INFORMATION SOURCE (unrecogn ized section and content) DATE CREATED AUTHOR 09/10/2021 [facility] DATE CREATED AUTHOR AUTHOR'S ORGANIZ ATION 12/24/[address] [facility] DATE CREATED AUTHOR AUTHOR'S ORGANIZ ATION 11/20/2022 [facility] DATE CREATED AUTHOR AUTHOR'S ORGANIZ ATION 05/01/2024 [facility] DATE CREATED AUTHOR AUTHOR'S ORGANIZ ATION 06/12/2024 [facility] Patient Care team informatio n (unrecognized section and content) Personnel Name: Phillip Ann MD Address: Address: [address] [place] [address] Personnel Name: Phillip Ann MD Address: Address: [address] [place] [address] FOR RECORDS PERTAINING TO PATIENTS WHO ARE [...] BE BASED ON THE PRIMARY CLINICAL RECORDS. [facility] [employer] [facility]. provides no warranty or guarantee of the accuracy or completeness of information in this document.
[2024-08-13 10:36] LABS: Basophils Absolute Auto 0.1 10^3/uL (0.0-0.1); Basophils Percent Auto 0.8 % (0.2-2.0); Eosinophils Absolute Auto 0.2 10^3/uL (0.0-0.7); Eosinophils Percent Auto 2.7 % (0.9-7.0); Hematocrit 38.5 % (36.0-48.0); Hemoglobin 12.4 g/dL (12.0-16.0); Immature Granulocytes Abs Auto 0.01 10^3/uL (0.00-0.03); Immature Granulocytes Pct Auto 0.1 % (0.0-0.5); Lymphocytes Absolute Auto 1.7 10^3/uL (1.2-3.8); Lymphocytes Percent Auto 22.5 % (20.5-60.0); Mean Corpuscular HGB Conc 32.2 g/dL (29.9-35.2); Mean Corpuscular Hemoglobin 30.3 pg (26.7-34.0); Mean Corpuscular Volume 94.1 fL (81.0-99.0); Mean Platelet Volume 10.8 fL (9.5-13.5); Monocytes Absolute Auto 0.5 10^3/uL (0.3-0.8); Neutrophils Absolute Auto 5.2 10^3/uL (1.4-6.5); Neutrophils Percent Auto 66.9 % (43.0-75.0); Platelet Count 285 10^3/uL (150-450); Red Blood Count 4.09 10^6/uL (4.20-5.40); Red Cell Distribution Width 13.8 % (11.0-15.0); White Blood Count 7.7 10^3/uL (4.0-11.0)
[2024-08-13] MEDS: 0.9 % SODIUM CHLORIDE 1,000 ML 1000 ML IV (10:36)
[2024-08-13] MEDS: ONDANSETRON PF 4 MG/2 ML VIAL IV (10:38)
[2024-08-13] MEDS: KETOROLAC TROMETHAMINE 30 MG/ML VIAL 15 MG IVP (10:38)
[2024-08-13 10:48] LABS: Influenza Virus A Antigen Negative; Influenza Virus B Antigen Negative; Internal Control Within Normal Limits; Respiratory Syncytial Virus Not Detected (NOT DETECTE); SARS-CoV-2 Ag NEGATIVE (NEGATIVE)
[2024-08-13 11:02] LABS: Alanine Aminotransferase 26 U/L (14-59); Albumin Globulin Ratio 0.8; Albumin Level 3.5 g/dL (3.4-5.0); Alkaline Phosphatase 172 U/L (46-116); Anion Gap 12.8; Aspartate Amino Transferase 19 U/L (15-37); BUN Creatinine Ratio 13.4; Bilirubin Total 0.5 mg/dL (0.2-1.0); Calcium 9.2 mg/dL (8.5-10.1); Carbon Dioxide 29.1 mmol/L (21.0-32.0); Chloride 103 mmol/L (98-107); Estimated GFR (African America >60 (>=60 mL/min/1.73m^2); Estimated GFR (Non-African Ame 51 (>=60 mL/min/1.73m^2); Globulin 4.4 g/dL; Glucose 89 mg/dL (74-106); Potassium 3.9 mmol/L (3.5-5.1); Sodium 141 mmol/L (136-145); Total Protein 7.9 g/dL (6.4-8.2); Troponin I High Sensitivity 23.8 pg/mL (4.0-51.3)
--- NOTE | 2024-08-13 11:22 | XR_ITS ---
The [address] [address] Patient Name: LEIGHANN TALAMANTES MRN: [id number] date: 1970 Sex: F Assigned Patient Location: ER Current Patient Location: Accession/Order Number: [id number] Exam Date: 08/13/2024 11:30 Report Date: 08/13/2024 13:19 At the request of: FABRICIO STARK Procedure: XR chest 1V EXAM: XR chest 1V 08/13/2024 COMPARISON STUDY: AP chest 06/24/2024. FINDINGS: Upright AP chest image was obtained. HISTORY: chest discomfort XR/XR chest 1V IMPRESSION: 1. Left-sided loop recorder device is again noted. The cardiomediastinal contours are stable. Heart size remains mildly prominent. 2. No acute cardiopulmonary process suspected. No dense consolidation, effusion, edema, failure, pneumothorax or acute osseous abnormality suggested. Electronically authenticated by: EMILIE MARTINEZ Date: 08/13/2024 13:19
--- NOTE | 2024-08-13 17:18 | ED.NAVMDI1 ---
HPI - Nausea/Vomiting/Diarrhea General Chief complaint: Nausea/Vomiting/Diarrhea Stated complaint: \NAUSEA, VOMITING, DIARRHEA Time Seen by Provider: 08/13/24 10:02 Source: patient Mode of arrival: walk-in Limitations: no limitations History of Present Illness HPI Narrative: The patient presented to us with a 2 days history of nausea vomiting and diarrhea associated also with headache, patient that she vomited multiple times today and at least 3 times, there is no blood in vomiting or in stool The patient think that she have some viral illness Related Data Home Medications ?Medication ?Instructions ?Recorded ?Confirmed albuterol sulfate 90 mcg/actuation 2 puff inhalation Q4H PRN wheezing 04/18/23 04/19/24 aerosol inhaler (Ventolin HFA) apixaban 5 mg tablet (Eliquis) 5 mg PO BID 04/18/23 04/19/24 diltiazem HCl 240 mg 240 mg PO Q24H 04/18/23 04/19/24 capsule,extended release 24 hr ezetimibe 10 mg tablet 10 mg PO DAILY 04/18/23 04/19/24 ferrous sulfate 325 mg (65 mg 325 mg PO BID 04/18/23 04/19/24 iron) tablet furosemide 40 mg tablet 40 mg PO DAILY 04/18/23 04/19/24 isosorbide mononitrate 30 mg 30 mg PO DAILY 04/18/23 04/19/24 tablet,extended release 24 hr metformin 500 mg tablet 500 mg PO DAILY 04/18/23 04/19/24 pantoprazole 40 mg tablet,delayed 40 mg PO DAILY 04/18/23 04/19/24 release potassium chloride 20 mEq 20 meq PO BID 04/18/23 04/19/24 tablet,extended release rosuvastatin 5 mg tablet 5 mg PO DAILY 04/18/23 04/19/24 metoprolol succinate 25 mg 50 mg PO DAILY 04/28/23 04/19/24 tablet,extended release 24 hr cholecalciferol (vitamin D3) 50 50 mcg PO DAILY 11/18/23 04/19/24 mcg (2,000 unit) capsule lisinopril 5 mg tablet 5 mg PO DAILY 01/28/24 04/19/24 allopurinol 100 mg tablet 100 mg PO DAILY 04/05/24 04/19/24 ropinirole 0.5 mg tablet 0.5 mg PO DAILY 04/05/24 04/19/24 colchicine 0.6 mg tablet 0.6 mg PO DAILY PRN gout 04/13/24 04/19/24 semaglutide 2 mg/dose (8 mg/3 mL) 2 mg subcut DAILY 04/13/24 04/19/24 subcutaneous pen injector (Ozempic) Previous Rx's ?Medication ?Instructions ?Recorded acetaminophen 325 mg capsule 650 mg (2 x 325 mg) PO .q8 PRN 04/18/23 (Tylenol) pain #20 caps ondansetron 4 mg disintegrating 4 mg PO Q6H PRN nausea and 11/19/23 tablet vomiting #20 tabs hyoscyamine sulfate 0.125 mg 0.125 mg PO Q6H PRN abdominal pain 11/23/23 tablet (Levsin) #12 tabs azithromycin 250 mg tablet See Rx Instructions PO .COMPLEX #6 06/24/24 (Zithromax Z-Derek) tabs benzonatate 100 mg capsule 100 mg PO TID PRN cough #20 caps 06/24/24 ybbbllryjx-rtzkvthpsteka-jlecaspe 1 cap PO Q6H PRN pain 5 days #20 06/24/24 50 mg-300 mg-40 mg capsule caps (Fioricet) ondansetron 4 mg disintegrating 4 mg PO Q8H PRN nausea and 08/13/24 tablet vomiting 48 hours #7 tabs Allergies Allergy/AdvReac Type Severity Reaction Status Date / Time morphine Allergy Intermediate Palpitation Verified 08/13/24 09:58 s Review of Systems ROS Status of ROS 10 or more systems reviewed and unremarkable except as noted in history and below [facility] Medical History (Updated 08/13/24 @ 12:19 by Melissa Byrne MD) Pulmonary hypertension ?I27.20 - Pulmonary hypertension, unspecified (ICD-10) Pericardial effusion ?I31.39 - Other pericardial effusion (noninflammatory) (ICD-10) Paroxysmal atrial fibrillation ?I48.0 - Paroxysmal atrial fibrillation (ICD-10) Nausea ?R11.0 - Nausea (ICD-10) Mild aortic stenosis ?I35.0 - Nonrheumatic aortic (valve) stenosis (ICD-10) Insomnia ?G47.00 - Insomnia, unspecified (ICD-10) Irritable bowel syndrome ?K58.9 - Irritable bowel syndrome without diarrhea (ICD-10) Hypertriglyceridemia ?E78.1 - Pure hyperglyceridemia (ICD-10) Hypercholesterolemia ?E78.00 - Pure hypercholesterolemia, unspecified (ICD-10) Hypertension ?I10 - Essential (primary) hypertension (ICD-10) Fibrocystic breast disease ?N60.19 - Diffuse cystic mastopathy of unspecified breast (ICD-10) Epigastric pain ?R10.13 - Epigastric pain (ICD-10) Diverticulosis ?K57.90 - Diverticulosis of intestine, part unspecified, without perforation or abscess without bleeding (ICD-10) Cystic kidney disease ?Q61.9 - Cystic kidney disease, unspecified (ICD-10) Chronic diastolic heart failure ?I50.32 - Chronic diastolic (congestive) heart failure (ICD-10) Cholelithiasis ?K80.20 - Calculus of gallbladder without cholecystitis without obstruction (ICD-10) Cervical disc disease ?M50.90 - Cervical disc disorder, unspecified, unspecified cervical region (ICD-10) Abdominal pain ?R10.9 - Unspecified abdominal pain (ICD-10) Abdominal bloating ?R14.0 - Abdominal distension (gaseous) (ICD-10) Back pain ?M54.9 - Dorsalgia, unspecified (ICD-10) Arthritis ?M19.90 - Unspecified osteoarthritis, unspecified site (ICD-10) Anemia ?D64.9 - Anemia, unspecified (ICD-10) Depression ?F32.A - Depression, unspecified (ICD-10) Panic attacks ?F41.0 - Panic disorder [episodic paroxysmal anxiety] (ICD-10) RUQ pain ?R10.11 - Right upper quadrant pain (ICD-10) Sleep apnea ?G47.30 - Sleep apnea, unspecified (ICD-10) Chronic obstructive pulmonary disease ?J44.9 - Chronic obstructive pulmonary disease, unspecified (ICD-10) Asthma ?J45.909 - Unspecified asthma, uncomplicated (ICD-10) COVID-19 ?U07.1 - COVID-19 (ICD-10) Positive colorectal cancer screening using Cologuard test ?R19.5 - Other fecal abnormalities (ICD-10) Dyspnea on exertion ?R06.09 - Other forms of dyspnea (ICD-10) Extremity edema ?R60.0 - Localized edema (ICD-10) Congestive heart failure (CHF) ?I50.9 - Heart failure, unspecified (ICD-10) Pericarditis ?I31.9 - Disease of pericardium, unspecified (ICD-10) Atrial flutter ?I48.92 - Unspecified atrial flutter (ICD-10) Atrial fibrillation ?I48.91 - Unspecified atrial fibrillation (ICD-10) Diabetes ?E11.9 - Type 2 diabetes mellitus without complications (ICD-10) Gout ?M10.9 - Gout, unspecified (ICD-10) Nasal congestion ?R09.81 - Nasal congestion (ICD-10) Breast cyst ?N60.09 - Solitary cyst of unspecified breast (ICD-10) Implantable loop recorder present ?Z95.818 - Presence of other cardiac implants and grafts (ICD-10) Surgical History (Updated 04/13/24 @ 09:03 by Martina Muñiz NP) H/O removal of cyst ?Z98.890 - Other specified postprocedural states (ICD-10) History of colonoscopy ?Z98.890 - Other specified postprocedural states (ICD-10) History of tubal ligation ?Z98.51 - Tubal ligation status (ICD-10) History of cardiac radiofrequency ablation ?Z98.890 - Other specified postprocedural states (ICD-10) History of section ?Z98.891 - History of uterine scar from previous surgery (ICD-10) Family History (Updated 04/13/24 @ 08:57 by Martina Muñiz NP) Other Family history of breast cancer Family history of diabetes mellitus Family history of heart disease Family history of hypertension Family history of myocardial infarction Family history of renal failure Family history of stroke Social History (Updated 04/13/24 @ 08:47 by Martina Muñiz NP) Within the past year, how often did you have a drink containing alcohol: monthly or less Smoking status: Former smoker Non-prescribed substance use: denies use 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 General: Well-appearing and in no apparent distress. Skin: Warm, dry, no pallor noted. No rash. Head: Normocephalic, atraumatic. Neck: Supple, non-tender. Eye: Pupils are equal, round and EOMI. No scleral icterus. Ears, Nose, Mouth, and Throat: TM are clear, no nasal mucosal hypertrophy. Oral mucosa is moist, no posterior oropharynx erythema, uvula is mid-line Cardiovascular: Regular Rate and Rhythm without murmur, gallop or rub. Respiratory: No accessory muscle use or respiratory distress. Lungs are clear to auscultation, no wheezing, rales or rhonchi Chest Wall: no tenderness Back: No midline thoracic or lumbar vertebral tenderness. No CVA tenderness Musculoskeletal: normal ROM, no calf or popliteal tenderness, no lower extremity edema/swelling GI: Abdomen is soft, non-distended. Normal bowel sounds. No masses appreciated. No tenderness to palpation. No rebound, guarding, or rigidity noted. Neurological: A&O x4. No cranial nerve dysfunction observed. No truncal ataxia. Moves all extremities. Sensation intact. Psychiatric: Cooperative and interactive. Normal mood and affect. Constitutional Vital Signs, click to edit/add: Last Vital Signs Temp 98.5 F 08/13/24 09:53 Pulse 65 08/13/24 12:30 Resp 19 08/13/24 12:30 BP 122/67 08/13/24 09:53 Pulse Ox 98 08/13/24 10:02 O2 Del Method Room Air 08/13/24 10:02 Course Vital Signs Vital signs: Vital Signs Temperature 98.5 F 08/13/24 09:53 Pulse Rate 78 08/13/24 09:53 Respiratory Rate 20 08/13/24 09:53 Blood Pressure 122/67 08/13/24 09:53 Pulse Oximetry 97 08/13/24 09:53 Oxygen Delivery Method Room Air 08/13/24 09:53 Temperature 98.5 F 08/13/24 09:53 Pulse Rate 65 08/13/24 12:30 Respiratory Rate 19 08/13/24 12:30 Blood Pressure 122/67 08/13/24 09:53 Pulse Oximetry 98 08/13/24 10:02 Oxygen Delivery Method Room Air 08/13/24 10:02 MDM - Nausea/Vomiting/Diarrhea MDM Narrative Medical decision making narrative: The patient abdominal examination was benign Chest x-ray showed no acute pathology The patient EKG showing sinus rhythm with a heart rate of [address] elevation or depression Chemistry showed no acute pathology CBC was within normal and the patient was feeling much better after she was treated supportively in the ER with Janellantwon Patient discharged home with supportive care and rest The patient is to follow up with primary care physician in next 2-3 days or to return to the emergency department should any of the signs or symptoms worsen or new symptoms develop. The patient agrees with the following Diagnosis and Treatment plan and the patient will be discharged home. Lab Data Labs: Lab Results 08/13/24 Range/Units 10:28 WBC 7.7 (4.0-11.0) 10^3/uL RBC 4.09 L (4.20-5.40) 10^6/uL Hgb 12.4 (12.0-16.0) g/dL Hct 38.5 (36.0-48.0) % MCV 94.1 (81.0-99.0) fL MCH 30.3 (26.7-34.0) pg MCHC 32.2 (29.9-35.2) g/dL RDW 13.8 (11.0-15.0) % Plt Count 285 (150-450) 10^3/uL MPV 10.8 (9.5-13.5) fL Neut % (Auto) 66.9 (43.0-75.0) % Lymph % (Auto) 22.5 (20.5-60.0) % [place] % (Auto) 7.0 (1.7-12.0) % Eos % (Auto) 2.7 (0.9-7.0) % Baso % (Auto) 0.8 (0.2-2.0) % Neut # (Auto) 5.2 (1.4-6.5) 10^3/uL Lymph # (Auto) 1.7 (1.2-3.8) 10^3/uL [place] # (Auto) 0.5 (0.3-0.8) 10^3/uL Eos # (Auto) 0.2 (0.0-0.7) 10^3/uL Baso # (Auto) 0.1 (0.0-0.1) 10^3/uL Abs Immat Gran (auto) 0.01 (0.00-0.03) 10^3/uL Imm/Tot Granulo (auto) 0.1 (0.0-0.5) % Sodium 141 (136-145) mmol/L Potassium 3.9 (3.5-5.1) mmol/L Chloride 103 (98-107) mmol/L Carbon Dioxide 29.1 (21.0-32.0) mmol/L Anion Gap 12.8 BUN 15.0 (7.0-18.0) mg/dL Creatinine 1.12 H (0.55-1.02) mg/dL Est GFR ( Amer) >60 (>=60 mL/min/1.73m^2) Est GFR (Non-Af Amer) 51 L (>=60 mL/min/1.73m^2) BUN/Creatinine Ratio 13.4 Glucose 89 (74-106) mg/dL Calcium 9.2 (8.5-10.1) mg/dL Total Bilirubin 0.5 (0.2-1.0) mg/dL AST 19 (15-37) U/L ALT 26 (14-59) U/L Alkaline Phosphatase 172 H (46-116) U/L Troponin I High Sens 23.8 (4.0-51.3) pg/mL Total Protein 7.9 (6.4-8.2) g/dL Albumin 3.5 (3.4-5.0) g/dL Globulin 4.4 g/dL Albumin/Globulin Ratio 0.8 Influenza Type A Ag Negative Influenza Type B Ag Negative RSV Antigen Not detected (NOT DETECTE) SARS-CoV-2 Ag (CV2AG) Negative (NEGATIVE) Discharge Plan Discharge Chief Complaint: Nausea/Vomiting/Diarrhea Clinical Impression: Acute viral syndrome Patient Disposition: Home, Self-Care Time of Disposition Decision: 12:19 Condition: Good Prescriptions / Home Meds: New ondansetron 4 mg tablet,disintegrating 4 mg PO Q8H PRN (Reason: nausea and vomiting) 2 Days Qty: 7 0RF No Action albuterol sulfate [Ventolin HFA] 90 mcg/actuation HFA aerosol inhaler 2 puff INHALATION Q4H PRN (Reason: wheezing) Eliquis 5 mg tablet 5 mg PO BID diltiazem HCl 240 mg capsule,extended release 24hr 240 mg PO Q24H ezetimibe 10 mg tablet 10 mg PO DAILY ferrous sulfate 325 mg (65 mg iron) tablet 325 mg PO BID furosemide 40 mg tablet 40 mg PO DAILY isosorbide mononitrate 30 mg tablet extended release 24 hr 30 mg PO DAILY metformin 500 mg tablet 500 mg PO DAILY pantoprazole 40 mg tablet,delayed release (DR/EC) 40 mg PO DAILY potassium chloride 20 mEq tablet extended release 20 meq PO BID rosuvastatin 5 mg tablet 5 mg PO DAILY acetaminophen [Tylenol] 325 mg capsule 650 mg PO .q8 PRN (Reason: pain) Qty: 20 0RF metoprolol succinate 25 mg tablet extended release 24 hr 50 mg PO DAILY lisinopril 5 mg tablet 5 mg PO DAILY cholecalciferol (vitamin D3) 50 mcg (2,000 unit) capsule 50 mcg PO DAILY ondansetron 4 mg tablet,disintegrating 4 mg PO Q6H PRN (Reason: nausea and vomiting) Qty: 20 0RF hyoscyamine sulfate [Levsin] 0.125 mg tablet 0.125 mg PO Q6H PRN (Reason: abdominal pain) Qty: 12 0RF Ozempic 2 mg/dose (8 mg/3 mL) pen injector 2 mg SUBCUT DAILY colchicine 0.6 mg tablet 0.6 mg PO DAILY PRN (Reason: gout) ropinirole 0.5 mg tablet 0.5 mg PO DAILY allopurinol 100 mg tablet 100 mg PO DAILY benzonatate 100 mg capsule 100 mg PO TID PRN (Reason: cough) Qty: 20 0RF cinvezqdst-ffvvkokbfbcnp-fsum [Fioricet] 50-300-40 mg capsule 1 cap PO Q6H PRN (Reason: pain) 5 Days Qty: 20 0RF azithromycin [Zithromax Z-Derek] 250 mg tablet See Rx Instructions .ROUTE .COMPLEX Qty: 6 0RF Rx Instructions: For 250 mg dose pack: take 500 mg today (day 1), then 250 mg for 4 days (days 2-5) Print Language: Arabic Instructions: Viral Syndrome (ED) Referrals: Xavi Ann MD [Primary Care Provider] - 1 week Discharge Date/Time: 08/13/24 12:39
== END 2024-08-13 12:39 | disposition home or self-care (01) ==
PROVIDERS: Emergency Provider Emergency Medicine; PCP Family Medicine
DX: B34.9 Viral infection, unspecified (principal); Z98.51 Tubal ligation status; Z87.891 Personal history of nicotine dependence
CPT/HCPCS: 36415; 71045; 80053; 84484; 85025; 87420; 87804; 87811; 93005; 96361; 96374; 96375; 99285; J1885; J2405

== ENCOUNTER 2024-08-31 21:41 | Emergency (ER) | payer OTHER, SELFPAY ==
[2024-08-31 21:46] VITALS: BP 115/67; PULSE 74; O2SAT 97; BMI 27.3
--- OUTSIDE RECORDS SUMMARY | 2024-08-31 21:48 | XMS_ITS | CCD ---
Author Organization [facility] Care Team Providers Care Compress Trucker Name Role Phone ADAM BEARAB A Admitting Unavailable CASSY BEAR Attending Unavailable PHILLIP ANN Referring Unavailable PHILLIP ANN Primary Care Unavailable PHILLIP ANN Referring Unavailable XIAO TORRES Surgeon Unavailable ORLIN HUI Attending Unavailable CALLI PAIGE Admitting Unavailable MT Procedure Practitioner Unavailab PHILLIP Muñoz Primary Care Unavailable MT Procedure Practitioner Unavailab Dunia Light Surgeon Unavailsindhu e Phillip Ann Primary Care Physician [phone] [address] ., DR FISHER Primary Care Unavailable [...] Morphine; Translations: [morphine] Drug Allergy 9 [facility] Repository (1 source) 55989,00; Translations: [42248,00] Propensity to adverse reactions (disorder) 0 [facility] Repository (2 sources) Morphine; Translations: [morphine] Drug Allergy Feeling nervous (finding), Tachycardia (finding) General Surgery [place] (1 source) No Known Medication Allergies; Translations: [No Known Medication Allergies] Propensity to adverse reactions (disorder) [facility] Repository (1 source) dulaglutide; Translations: [DULAGLUTIDE] Drug Allergy 3 [facility] Repository Medications Current Medications Medication Drug Class(es) Dates Sig (Normalized) Sig (Original) 3 ML semaglutide 2.68 MG/ML Pen Injector [Ozempic] (1 source) Start: 03-16-2024 inject 2 mg by subcutaneous injection every week Ozempic 8 mg/3 mL (2 mg dose) subcutaneous solution 2 mg, SubCutaneous, qWeek, Refills(s) 0 Start Date: 03/16/24 Status: Ordered [id number] 200 actuat albuterol 0.09 mg/actuat metered dose [...] disease (1 source) Atherosclerotic heart disease of havasupai coronary artery without angina pectoris; Translations: [ASHD NEZ PERCE CA W/O ANGINA PECTORIS] Onset: 08-11-2022 Chronic [...] Onset: 09-13-2022 Chronic Other aftercare (1 source) 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 Normal [facility] Office Visiton 04-13-2024 Follow-up visit [id number] Diana Alvarez 1970 F Date Provider Department Center 04/13/2024 JENNA ABREU CARD [facility] Family History Problem Relation Age of Onset Breast cancer Mother Aneurysm Mother Stroke Mother Heart attack Father Coronary artery disease Father Family Status - Relation Status Age at Mother Father Level of Service:00209 MT OFFICE/OUTPATIENT ESTABLISHED MOD MDM 30 MIN Reason for Visit and Comments: Pre-op Exam [566315] Atrial Fibrillation [80] Hypertension [867553] Normal [facility] Ambulatory Visit Summaryon 0 04-04-2024 Ambulatory [...] (Nervousness, Tachycardia) Problems (more content not included)... [facility] 36on 01-12-2024 36 BP is elevated. I encourage diet and routine exercise which can help her BP. In the mean time, would like to start her on lisinopril 5mg daily with follow-up BMP in 2 weeks. Thanks! Normal [facility] 36on 01-11-2024 36 Pt calling with bp's 156/83 133/78 147/80 146/78 157/72 148/80 120/80 [facility] 36on 12-23-2023 36 Regarding echo performed [...] few weeks with readings. She verbalized understanding. [facility] Telephoneon 12-23-2023 Telephone [id number] Diana Alvarez 1970 F Date Provider Department Center 12/23/2023 MIGUEL ROMANO TISH Booth Family History Problem Relation Age of Onset Breast cancer Mother Aneurysm Mother Stroke Mother Heart attack Father Coronary artery disease Father Family Status - Relation Status Age at Mother Father [facility] 36on 11-10-2023 36 Call reference # [id number]. - Approval # [id number] approved from 11/05/23 - 01/04/24. [facility] Office Visiton 10-26-2023 Follow-up visit [id number] Diana Alvarez 1970 F Date Provider Department Center 10/26/2023 Jg-JENNA HENDERSON Family History Problem Relation Age of Onset Breast cancer Mother Aneurysm Mother Stroke Mother Heart attack Father Coronary artery disease Father Family Status - Relation Status Age at Mother Father Level of Service:26625 MT OFFICE/OUTPATIENT ESTABLISHED MOD MDM 30 MIN Reason for Visit and Comments: Atrial Flutter [101] Congestive Heart Failure [127] Normal [facility] CBC AUTO DIFFon 10-28-2022 BASO # 0.0 103/ul Normal 0.0-0.1 [facility] Comment on above: Performed By: #### L IPID, CMP, T4, TSH, FT3 #### [facility] [address] [place] [address] Dr. Mendel Herron Basophils/100 WBC (Bld) 0.2 % Normal 0.2-2.[address] [facility] Comment on above: Performed By: #### L IPID, CMP, T4, TSH, FT3 #### [facility] [address] [place] [address] Dr. Mendel Herron EO # 0.0 103/ul Normal 0.0-0.[address] [facility] Comment on above: Performed By: #### L IPID, CMP, T4, TSH, FT3 #### [facility] [address] [place] [address] Dr. Mendel Herron Eosinophils/100 WBC (Bld) 0.3 % Critically low 0.9-7.[address] [facility] Comment on above: Performed By: #### L IPID, CMP, T4, TSH, FT3 #### [facility] [address] [place] [address] Dr. Mendel Herron Erythrocyte distribution width (RBC) [Ratio] 13.6 % Normal 11.0-15.0 [facility] Comment on above: Performed By: #### L IPID, CMP, T4, TSH, FT3 #### [facility] [address] [place] [address] Dr. Mendel Herron Hematocrit (Bld) [Volume fraction] 40.1 % Normal 36.0-48.[address] [facility] Comment on above: Performed By: #### L IPID, CMP, T4, TSH, FT3 #### [facility] [address] [place] [address] Dr. Mendel Herron Hemoglobin (Bld) [Mass/Vol] 13.0 g/dL Normal 12.0-16.0 [facility] Comment on above: Performed By: #### L IPID, CMP, T4, TSH, FT3 #### [facility] [address] [place] [address] Dr. Mendel Herron IG # 0.06 10e3/ul Critically high 0.00-0.03 [facility] Comment on above: Performed By: #### L IPID, CMP, T4, TSH, FT3 #### [facility] [address] [place] [address] Dr. Mendel Herron IG % 0.5 % Normal 0.0-0.5 [facility] Comment on above: Performed By: #### L IPID, CMP, T4, TSH, FT3 #### [facility] [address] [place] [address] Dr. Mendel Herron LYMPH # 2.8 103/ul Normal 1.2-3.8 [facility] Comment on above: Performed By: #### L IPID, CMP, T4, TSH, FT3 #### [facility] [address] [place] [address] Dr. Mendel Herron Lymphocytes/100 WBC (Bld) 22.4 % Normal 20.5-60.0 [facility] Comment on above: Performed By: #### L IPID, CMP, T4, TSH, FT3 #### [facility] [address] [place] [address] Dr. Mendel Herron MANUAL DIFF REQ NO Normal [facility] Comment on above: Performed By: #### L IPID, CMP, T4, TSH, FT3 #### [facility] [address] [place] [address] Dr. Mendel Herron MCH (RBC) [Entitic mass] 30.8 pg Normal 26.7-34.0 [facility] Comment on above: Performed By: #### L IPID, CMP, T4, TSH, FT3 #### [facility] [address] [place] [address] Dr. Mendel Herron MCHC (RBC) [Mass/Vol] 32.4 g/dL Normal 29.9-35.2 [facility] Comment on above: Performed By: #### L IPID, CMP, T4, TSH, FT3 #### [facility] [address] [place] [address] Dr. Mendel Herron MCV (RBC) [Entitic vol] 95.0 fL Normal 81.0-99.[address] [facility] Comment on above: Performed By: #### L IPID, CMP, T4, TSH, FT3 #### [facility] [address] [place] [address] Dr. Mendel Herron MONO # 0.9 103/ul Critically high 0.3-0.8 [facility] Comment on above: Performed By: #### L IPID, CMP, T4, TSH, FT3 #### [facility] [address] [place] [address] Dr. Mendel Herron Monocytes/100 WBC (Bld) 7.2 % Normal 1.7-12.[address] [facility] Comment on above: Performed By: #### L IPID, CMP, T4, TSH, FT3 #### [facility] [address] [place] [address] Dr. Mendel Herron NEUT # 8.6 103/ul Critically high 1.4-6.5 [facility] Comment on above: Performed By: #### L IPID, CMP, T4, TSH, FT3 #### [facility] [address] [place] [address] Dr. Mendel Herron Neutrophils/100 WBC (Bld) 69.4 % Normal 43.0-75.[address] [facility] Comment on above: Performed By: #### L IPID, CMP, T4, TSH, FT3 #### [facility] [address] [place] [address] Dr. Mendel Herron Platelet mean volume (Bld) [Entitic vol] 9.9 fL Normal 9.5-13.[address] [facility] Comment on above: Performed By: #### L IPID, CMP, T4, TSH, FT3 #### [facility] [address] [place] [address] Dr. Mendel Herron PLT 297 103/ul Normal 150-[address] [facility] Comment on above: Performed By: #### L IPID, CMP, T4, TSH, FT3 #### [facility] [address] [place] [address] Dr. Mendel Herron RBC 4.22 106/ul Normal 4.20-5.40 [facility] Comment on above: Performed By: #### L IPID, CMP, T4, TSH, FT3 #### [facility] [address] [place] [address] Dr. Mendel Herron WBC 12.4 103/ul Critically high 4.0-11.0 [facility] Comment on above: Performed By: #### L IPID, CMP, T4, TSH, FT3 #### [facility] [address] [address] [address] Mendel Herron CRPon 10-28-2022 CRP 1.3 mg/dL Critically high <=1.0 [facility] Comment on above: Performed By: #### L IPID, CMP, T4, TSH, FT3 #### [facility] [address] [place] [address] Dr. Mendel Herron PROF CHEM 8 (BAS METB)on Anion gap [Moles/Vol] 13.6 mmol/L Normal [facility] Comment on above: Performed By: #### L IPID, CMP, T4, TSH, FT3 #### [facility] [address] [place] [address] Dr. Mendel Herron Calcium [Mass/Vol] 9.3 mg/dL Normal 8.5-10.1 [facility] Comment on above: Performed By: #### L IPID, CMP, T4, TSH, FT3 #### [facility] [address] [place] [address] Dr. Mendel Herron Chloride [Moles/Vol] 102 mmol/L Normal 98-[address] [facility] Comment on above: Performed By: #### L IPID, CMP, T4, TSH, FT3 #### [facility] [address] [place] [address] Dr. Mendel Herron CO2 [Moles/Vol] 30.7 mmol/L Normal 21.0-32.0 [facility] Comment on above: Performed By: #### L IPID, CMP, T4, TSH, FT3 #### [facility] [address] [place] [address] Dr. Mendel Herron Creatinine [Mass/Vol] 0.85 mg/dL Normal 0.55-1.[address] [facility] Comment on above: Performed By: #### L IPID, CMP, T4, TSH, FT3 #### [facility] [address] [address] [address] Mendel Herron EGFR-AF SOMALI >60 Normal >=60 [facility] Comment on above: Performed By: #### L IPID, CMP, T4, TSH, FT3 #### [facility] [address] [address] [address] Mendel Herron EGFR-NON AF SOMALI >60 Normal >=60 [facility] Comment on above: Performed By: #### L IPID, CMP, T4, TSH, FT3 #### [facility] [address] [address] [address] Mendel Herron Glucose [Mass/Vol] 101 mg/dL Normal 74-106 [facility] Comment on above: Performed By: #### L IPID, CMP, T4, TSH, FT3 #### [facility] [address] [address] [address] Mendel Herron Potassium [Moles/Vol] 3.3 mmol/L Critically low 3.5-5.[address] [facility] Comment on above: Performed By: #### L IPID, CMP, T4, TSH, FT3 #### [facility] [address] [address] [address] Mendel Herron Sodium [Moles/Vol] 143 mmol/L Normal 136-145 [facility] Comment on above: Performed By: #### L IPID, CMP, T4, TSH, FT3 #### [facility] [address] [address] [address] Mendel Herron Urea nitrogen [Mass/Vol] 12.0 mg/dL Normal 7.0-18.0 [facility] Comment on above: Performed By: #### L IPID, CMP, T4, TSH, FT3 #### [facility] [address] [address] [address] Mendel Herron Urea nitrogen/Creatinine [Mass ratio] 14.1 mg/mg Normal [facility] Comment on above: Performed By: #### L IPID, CMP, T4, TSH, FT3 #### [facility] [address] [place], [place] [address] Dr. Mendel Herron URIC ACID SERUMon 10-28-2022 Urate [Mass/Vol] 7.8 mg/dL Critically high 2.6-6.[address] [facility] Comment on above: Performed By: #### L IPID, CMP, T4, TSH, FT3 #### [facility] [address] [place], [place] [address] Dr. Mendel Herron XR TOES RT MIN [...] Date: 2022-10-28 20:53 Normal [facility] Covid-19 PCR (CVDTB)on SARS-CoV-2 (COVID-19) RNA DEIRDRE+probe Ql (Unsp spec) Not detected Normal NOT DETECTED [facility] Comment on above: Result Comment: When [...] for this test is supported by the [employer] of Health and Human Service's declaration that [...] CMP, T4, TSH, FT3 #### [facility] [address] [place] [address] Dr. Mendel Herron CBC AUTO DIFFon 09-09-2022 BASO # 0.1 103/ul Normal 0.0-0.1 [facility] Comment on above: Performed By: #### L IPID, CMP, T4, TSH, FT3 #### [facility] [address] [place] [address] Dr. Mendel Herron Basophils/100 WBC (Bld) 0.7 % Normal 0.2-2.0 [facility] Comment on above: Performed By: #### L IPID, CMP, T4, TSH, FT3 #### [facility] [address] [place] [address] Dr. Mendel Herron EO # 0.1 103/ul Normal 0.0-0.[address] [facility] Comment on above: Performed By: #### L IPID, CMP, T4, TSH, FT3 #### [facility] [address] [place] [address] Dr. Mendel Herron Eosinophils/100 WBC (Bld) 0.7 % Critically low 0.9-7.[address] [facility] Comment on above: Performed By: #### L IPID, CMP, T4, TSH, FT3 #### [facility] [address] [place] [address] Dr. Mendel Herron Erythrocyte distribution width (RBC) [Ratio] 13.1 % Normal 11.0-15.[address] [facility] Comment on above: Performed By: #### L IPID, CMP, T4, TSH, FT3 #### [facility] [address] [place] [address] Dr. Mendel Herron Hematocrit (Bld) [Volume fraction] 43.7 % Normal 36.0-48.[address] [facility] Comment on above: Performed By: #### L IPID, CMP, T4, TSH, FT3 #### [facility] [address] [place] [address] Dr. Mendel Herron Hemoglobin (Bld) [Mass/Vol] 14.4 g/dL Normal 12.0-16.0 [facility] Comment on above: Performed By: #### L IPID, CMP, T4, TSH, FT3 #### [facility] [address] [place] [address] Dr. Mendel Herron IG # 0.11 10e3/ul Critically high 0.00-0.03 [facility] Comment on above: Performed By: #### L IPID, CMP, T4, TSH, FT3 #### [facility] [address] [place] [address] Dr. Mendel Herron IG % 1.3 % Critically high 0.0-0.5 [facility] Comment on above: Performed By: #### L IPID, CMP, T4, TSH, FT3 #### [facility] [address] [place] [address] Dr. Mendel Herron LYMPH # 2.4 103/ul Normal 1.2-3.8 [facility] Comment on above: Performed By: #### L IPID, CMP, T4, TSH, FT3 #### [facility] [address] [place] [address] Dr. Mendel Herron Lymphocytes/100 WBC (Bld) 27.9 % Normal 20.5-60.0 [facility] Comment on above: Performed By: #### L IPID, CMP, T4, TSH, FT3 #### [facility] [address] [place] [address] Dr. Mendel Herron MANUAL DIFF REQ NO Normal [facility] Comment on above: Performed By: #### L IPID, CMP, T4, TSH, FT3 #### [facility] [address] [place] [address] Dr. Mendel Herron MCH (RBC) [Entitic mass] 31.0 pg Normal 26.7-34.0 [facility] Comment on above: Performed By: #### L IPID, CMP, T4, TSH, FT3 #### [facility] [address] [place] [address] Dr. Mendel Herron MCHC (RBC) [Mass/Vol] 33.0 g/dL Normal 29.9-35.[address] [facility] Comment on above: Performed By: #### L IPID, CMP, T4, TSH, FT3 #### [facility] [address] [place] [address] Dr. Mendel Herron MCV (RBC) [Entitic vol] 94.0 fL Normal 81.0-99.[address] [facility] Comment on above: Performed By: #### L IPID, CMP, T4, TSH, FT3 #### [facility] [address] [place] [address] Dr. Mendel Herron MONO # 0.5 103/ul Normal 0.3-0.[address] [facility] Comment on above: Performed By: #### L IPID, CMP, T4, TSH, FT3 #### [facility] [address] [place] [address] Dr. Mendel Herron Monocytes/100 WBC (Bld) 6.0 % Normal 1.7-12.[address] [facility] Comment on above: Performed By: #### L IPID, CMP, T4, TSH, FT3 #### [facility] [address] [place] [address] Dr. Mendel Herron NEUT # 5.4 103/ul Normal 1.4-6.[address] [facility] Comment on above: Performed By: #### L IPID, CMP, T4, TSH, FT3 #### [facility] [address] [place] [address] Dr. Mendel Herron Neutrophils/100 WBC (Bld) 63.4 % Normal 43.0-75.[address] [facility] Comment on above: Performed By: #### L IPID, CMP, T4, TSH, FT3 #### [facility] [address] [place] [address] Dr. Mendel Herron Platelet mean volume (Bld) [Entitic vol] 9.8 fL Normal 9.5-13.[address] [facility] Comment on above: Performed By: #### L IPID, CMP, T4, TSH, FT3 #### [facility] [address] [address] [address] Mendel Herron PLT 398 103/ul Normal 150-450 [facility] Comment on above: Performed By: #### L IPID, CMP, T4, TSH, FT3 #### [facility] [address] [address] [address] Mendel Herron RBC 4.65 106/ul Normal 4.20-5.40 [facility] Comment on above: Performed By: #### L IPID, CMP, T4, TSH, FT3 #### [facility] [address] [address] [address] Mendel Herron WBC 8.6 103/ul Normal 4.0-11.0 [facility] Comment on above: Performed By: #### L IPID, CMP, T4, TSH, FT3 #### [facility] [address] [place] [address] Dr. Mendel Herron FREE T3on 09-09-2022 FREE T3 2.59 pg/mlL Normal 2.18-3.98 [facility] Comment on above: Performed By: #### L IPID, CMP, T4, TSH, FT3 #### [facility] [address] [place] [address] Dr. Mendel Herron GLYCOHEMOGLOBIN A1Con 2022 ADA RECOMMENDATION SEE BELOW Normal [facility] Comment on above: Result Comment: ADA RECOMMENDED LIMIT 4.0 - 6.0 ADA THERAPEUTIC TARGET < 7.0 ACTION SUGGESTED > 7.0 Performed By: #### A 1C #### [facility] [address] [place] [address] Dr. Mendel Herron Glucose [Mass/Vol] 120 mg/dL Normal [facility] Comment on above: Performed By: #### A 1C #### [facility] [address] [place] [address] Dr. Mendel Herron HbA1c (Bld) [Mass fraction] 5.8 % Normal 4.5-6.2 [facility] Comment on above: Performed By: #### A 1C #### [facility] [address] [address] [address] Mendel Herron LIPID PROFILEon 09-09-2022 CHOL-HDL RATIO NORM SEE BELOW Normal [facility] Comment on above: Result Comment: 3.3 - 4.4 LOW RISK 4.4 - 7.1 AVERAGE RISK 7.1 - 11.0 MODERATE RISK >11.0 HIGH RISK Performed By: #### L IPID, CMP, T4, TSH, FT3 #### [facility] [address] [address] [address] Mendel Herron Cholesterol [Mass/Vol] 308 mg/dL Critically high <=200 [facility] Comment on above: Performed By: #### L IPID, CMP, T4, TSH, FT3 #### [facility] [address] [address] [address] Mendel Herron Cholesterol in HDL [Mass/Vol] 46 mg/dL Normal 40-60 [facility] Comment on above: Performed By: #### L IPID, CMP, T4, TSH, FT3 #### [facility] [address] [address] [address] Mendel Herron Cholesterol in LDL [Mass/Vol] 212.6 mg/dL Normal [facility] Comment on above: Performed By: #### L IPID, CMP, T4, TSH, FT3 #### [facility] [address] [address] [address] Mendel Herron Cholesterol.total/Ch olesterol in HDL [Mass ratio] 6.7 {ratio} Normal [facility] Comment on above: Performed By: #### L IPID, CMP, T4, TSH, FT3 #### [facility] [address] [address] [address] Mendel Herron HDL NORMAL > or = 60 mg/dl - LOW CARDIOVASCULAR RISK <40 mg/dl - HIGH CARDIOVASCULAR RISK Normal [facility] Comment on above: Performed By: #### L IPID, CMP, T4, TSH, FT3 #### [facility] [address] [address] [address] Mendel Herron LDL CALC NORMAL SEE BELOW Normal [facility] Comment on above: Result Comment: <100 mg/dl OPTIMAL 100 - 129 mg/dl NEAR OR ABOVE OPTIMAL 130 - 159 mg/dl BORDERLINE HIGH 160 - 189 mg/dl HIGH >190 mg/dl VERY HIGH Performed By: #### L IPID, CMP, T4, TSH, FT3 #### [facility] [address] [address] [address] Mendel Herron Triglyceride [Mass/Vol] 247 mg/dL Critically high <=150 [facility] Comment on above: Performed By: #### L IPID, CMP, T4, TSH, FT3 #### [facility] [address] [address] [address] Mendle Herron VLDL CALC 49.4 mg/dL Normal [facility] Comment on above: Performed By: #### L IPID, CMP, T4, TSH, FT3 #### [facility] [address] [place] [address] Dr. Mendel Herron PROF 14(COMP METB)on 023 Albumin [Mass/Vol] 4.0 g/dL Normal 3.4-5.0 [facility] Comment on above: Performed By: #### L IPID, CMP, T4, TSH, FT3 #### [facility] [address] [address] [address] Mendel Herron Albumin/Globulin [Mass ratio] 0.9 {ratio} Normal [facility] Comment on above: Performed By: #### L IPID, CMP, T4, TSH, FT3 #### [facility] [address] [address] [address] Mendel Herron ALP [Catalytic activity/Vol] 115 U/L Normal 46-116 [facility] [facility] Comment on above: Performed By: #### L IPID, CMP, T4, TSH, FT3 #### [facility] [address] [address] [address] Mendel Herron ALT [Catalytic activity/Vol] 30 U/L Normal 14-59 [facility] Comment on above: Performed By: #### L IPID, CMP, T4, TSH, FT3 #### [facility] [address] [address] [address] Mendel Herron Anion gap [Moles/Vol] 12.7 mmol/L Normal [facility] Comment on above: Performed By: #### L IPID, CMP, T4, TSH, FT3 #### [facility] [address] [place] [address] Dr. Mendel Herron AST [Catalytic activity/Vol] 18 U/L Normal 15-37 [facility] Comment on above: Performed By: #### L IPID, CMP, T4, TSH, FT3 #### [facility] [address] [place] [address] Dr. Mendel Herron Bilirubin [Mass/Vol] 0.7 mg/dL Normal 0.2-1.0 [facility] Comment on above: Performed By: #### L IPID, CMP, T4, TSH, FT3 #### [facility] [address] [place] [address] Dr. Mendel Herron Calcium [Mass/Vol] 9.7 mg/dL Normal 8.5-10.1 [facility] Comment on above: Performed By: #### L IPID, CMP, T4, TSH, FT3 #### [facility] [address] [place] [address] Dr. Mendel Herron Chloride [Moles/Vol] 103 mmol/L Normal 98-[address] [facility] Comment on above: Performed By: #### L IPID, CMP, T4, TSH, FT3 #### [facility] [address] [place] [address] Dr. Mendel Herron CO2 [Moles/Vol] 26.5 mmol/L Normal 21.0-32.0 [facility] Comment on above: Performed By: #### L IPID, CMP, T4, TSH, FT3 #### [facility] [address] [place] [address] Dr. Mendel Herron Creatinine [Mass/Vol] 0.83 mg/dL Normal 0.55-1.02 [facility] Comment on above: Performed By: #### L IPID, CMP, T4, TSH, FT3 #### [facility] [address] [place] [address] Dr. Mendel Herron EGFR-AF SOMALI >60 Normal >=60 [facility] Comment on above: Performed By: #### L IPID, CMP, T4, TSH, FT3 #### [facility] [address] [address] [address] Mendel Herron EGFR-NON AF SOMALI >60 Normal >=60 [facility] Comment on above: Performed By: #### L IPID, CMP, T4, TSH, FT3 #### [facility] [address] [address] [address] Mendel Herron Globulin (S) [Mass/Vol] 4.4 g/dL Normal [facility] Comment on above: Performed By: #### L IPID, CMP, T4, TSH, FT3 #### [facility] [address] [address] [address] Mendel Herron Glucose [Mass/Vol] 97 mg/dL Normal 74-106 [facility] Comment on above: Performed By: #### L IPID, CMP, T4, TSH, FT3 #### [facility] [address] [address] [address] Mendel Herron Potassium [Moles/Vol] 4.2 mmol/L Normal 3.5-5.1 [facility] Comment on above: Performed By: #### L IPID, CMP, T4, TSH, FT3 #### [facility] [address] [address] [address] Mendel Herron Protein [Mass/Vol] 8.4 g/dL Critically high 6.4-8.2 [facility] Comment on above: Performed By: #### L IPID, CMP, T4, TSH, FT3 #### [facility] [address] [address] [address] Mendel Herron Sodium [Moles/Vol] 138 mmol/L Normal 136-145 [facility] Comment on above: Performed By: #### L IPID, CMP, T4, TSH, FT3 #### [facility] [address] [address] [address] Mendel Herron Urea nitrogen [Mass/Vol] 12.0 mg/dL Normal 7.0-18.0 [facility] Comment on above: Performed By: #### L IPID, CMP, T4, TSH, FT3 #### [facility] [address] [place] [address] Dr. Mendel Herron Urea nitrogen/Creatinine [Mass ratio] 14.5 mg/mg Normal [facility] Comment on above: Performed By: #### L IPID, CMP, T4, TSH, FT3 #### [facility] [address] [place] [address] Dr. Mendel Herron T4on 09-09-2022 T4 [Mass/Vol] 8.80 ug/dL Normal 4.80-13.90 [facility] Comment on above: Performed By: #### L IPID, CMP, T4, TSH, FT3 #### [facility] [address] [place] [address] Dr. Mendel Herron TSHon 09-09-2022 TSH 0.898 uIU/mL Normal 0.358-3.740 [facility] Comment on above: Performed By: #### L IPID, CMP, T4, TSH, FT3 #### [facility] [address] [place] [address] Dr. Mendel Herron VITAMIN D 25 OHon 09-09-2022 VIT D 25-OH 24.0 ng/mL Normal [facility] Comment on above: Performed By: #### L IPID, CMP, T4, TSH, FT3 #### [facility] [address] [place] [address] Dr. Mendel Herron VIT D RANGES SEE BELOW Normal [facility] Comment on above: Result Comment: <20 ng/mL Vit D deficient 20 - <30 ng/mL Vit D insufficient 30 - 100 ng/mL Vit D sufficient >100 ng/mL Potential Toxicity Performed By: #### L IPID, CMP, T4, TSH, FT3 #### [facility] [address] [place] [address] Dr. Mendel Herron NM HEPATOBILIARY SCAN W [...] by: VIVI GARY Date: 2022-08-20 16:07 Normal [facility] US SINGLE QUAD RT UPPERon US [...] by: JEAN LOPES Date: 2022-08-11 15:50 Normal [facility] CARDIAC SUBHA ADMITon 023 CK [Catalytic activity/Vol] 30 U/L Normal 26-[address] [facility] Comment on above: Performed By: #### L IPID, CMP, T4, TSH, FT3 #### [facility] [address] [address] [address] Mendel Herron CK.MB [Mass/Vol] 1.02 ng/mL Normal <=3.60 [facility] Comment on above: Performed By: #### L IPID, CMP, T4, TSH, FT3 #### [facility] [address] [address] [address] Mendel Herron HSTROP 32.8 pg/mL Normal 4.0-51.[address] [facility] Comment on above: Result Comment: CUT- OFF POINTS HAVE BEEN ESTABLISHED BASED ON THE FOURTH UNIVERSAL DEFINITIONS OF MYOCARDIAL INFARCTION. THE UPPER REFERENCE LIMIT (URL) OF TROPONIN, DEFINED THE 99TH PERCENTILE OF cTnI DISTRIBUTION IN A REFERENCE POPULATION, HAS BEEN CONFIRMED THE DECISION THRESHOLD FOR [place] DIAGNOSIS. Performed By: #### L IPID, CMP, T4, TSH, FT3 #### [facility] [address] [place] [address] Dr. Mendel Herron SONYA 23 ng/mL Normal 9-[address] [facility] Comment on above: Performed By: #### L IPID, CMP, T4, TSH, FT3 #### [facility] [address] [place] [address] Dr. Mendel Herron CBC AUTO DIFFon 08-09-2022 BASO # 0.0 103/ul Normal 0.0-0.1 [facility] Comment on above: Performed By: #### L IPID, CMP, T4, TSH, FT3 #### [facility] [address] [address] [address] Mendel Herron Basophils/100 WBC (Bld) 0.3 % Normal 0.2-2.0 [facility] Comment on above: Performed By: #### L IPID, CMP, T4, TSH, FT3 #### [facility] [address] [place] [address] Dr. Mendel Herron EO # 0.0 103/ul Normal 0.0-0.7 [facility] Comment on above: Performed By: #### L IPID, CMP, T4, TSH, FT3 #### [facility] [address] [place] [address] Dr. Mendel Herron Eosinophils/100 WBC (Bld) 0.3 % Critically low 0.9-7.0 [facility] Comment on above: Performed By: #### L IPID, CMP, T4, TSH, FT3 #### [facility] [address] [place] [address] Dr. Mendel Herron Erythrocyte distribution width (RBC) [Ratio] 13.1 % Normal 11.0-15.0 [facility] Comment on above: Performed By: #### L IPID, CMP, T4, TSH, FT3 #### [facility] [address] [place] [address] Dr. Mendel Herron Hematocrit (Bld) [Volume fraction] 42.7 % Normal 36.0-48.0 [facility] Comment on above: Performed By: #### L IPID, CMP, T4, TSH, FT3 #### [facility] [address] [place] [address] Dr. Mendel Herron Hemoglobin (Bld) [Mass/Vol] 15.4 g/dL Normal 12.0-16.0 [facility] Comment on above: Performed By: #### L IPID, CMP, T4, TSH, FT3 #### [facility] [address] [place] [address] Dr. Mendel Herron IG # 0.05 10e3/ul Critically high 0.00-0.03 [facility] Comment on above: Performed By: #### L IPID, CMP, T4, TSH, FT3 #### [facility] [address] [place] [address] Dr. Mendel Herron IG % 0.4 % Normal 0.0-0.5 [facility] Comment on above: Performed By: #### L IPID, CMP, T4, TSH, FT3 #### [facility] [address] [place] [address] Dr. Mendel Herron LYMPH # 2.5 103/ul Normal 1.2-3.[address] [facility] Comment on above: Performed By: #### L IPID, CMP, T4, TSH, FT3 #### [facility] [address] [place] [address] Dr. Mendel Herron Lymphocytes/100 WBC (Bld) 21.2 % Normal 20.5-60.0 [facility] Comment on above: Performed By: #### L IPID, CMP, T4, TSH, FT3 #### [facility] [address] [place] [address] Dr. Mendel Herron MANUAL DIFF REQ NO Normal [facility] Comment on above: Performed By: #### L IPID, CMP, T4, TSH, FT3 #### [facility] [address] [place] [address] Dr. Mendel Herron MCH (RBC) [Entitic mass] 31.7 pg Normal 26.7-34.0 [facility] Comment on above: Performed By: #### L IPID, CMP, T4, TSH, FT3 #### [facility] [address] [place] [address] Dr. Mendel Herron MCHC (RBC) [Mass/Vol] 36.1 g/dL Critically high 29.9-35.2 [facility] Comment on above: Performed By: #### L IPID, CMP, T4, TSH, FT3 #### [facility] [address] [place] [address] Dr. Mendel Herron MCV (RBC) [Entitic vol] 87.9 fL Normal 81.0-99.0 [facility] Comment on above: Performed By: #### L IPID, CMP, T4, TSH, FT3 #### [facility] [address] [place] [address] Dr. Mendel Herron MONO # 0.7 103/ul Normal 0.3-0.8 [facility] Comment on above: Performed By: #### L IPID, CMP, T4, TSH, FT3 #### [facility] [address] [place] [address] Dr. Mendel Herron Monocytes/100 WBC (Bld) 6.3 % Normal 1.7-12.[address] [facility] Comment on above: Performed By: #### L IPID, CMP, T4, TSH, FT3 #### [facility] [address] [address] [address] Mendel Herron NEUT # 8.4 103/ul Critically high 1.4-6.5 [facility] Comment on above: Performed By: #### L IPID, CMP, T4, TSH, FT3 #### [facility] [address] [address] [address] Mendel Herron Neutrophils/100 WBC (Bld) 71.5 % Normal 43.0-75.[address] [facility] Comment on above: Performed By: #### L IPID, CMP, T4, TSH, FT3 #### [facility] [address] [place] [address] Dr. Mendel Herron Platelet mean volume (Bld) [Entitic vol] 9.8 fL Normal 9.5-13.5 [facility] Comment on above: Performed By: #### L IPID, CMP, T4, TSH, FT3 #### [facility] [address] [address] [address] Mendel Herron PLT 374 103/ul Normal 150-[address] [facility] Comment on above: Performed By: #### L IPID, CMP, T4, TSH, FT3 #### [facility] [address] [address] [address] Mendel Herron RBC 4.86 106/ul Normal 4.20-5.[address] [facility] Comment on above: Performed By: #### L IPID, CMP, T4, TSH, FT3 #### [facility] [address] [address] [address] Mendel Herron WBC 11.7 103/ul Critically high 4.0-11.0 [facility] Comment on above: Performed By: #### L IPID, CMP, T4, TSH, FT3 #### [facility] [address] [address] [address] HEAD WO CONon [...] Date: 2022-08-09 15:23 Normal [facility] Covid-19 PCR (CVDTB)on 07-20 SARS-CoV-2 (COVID-19) RNA DEIRDRE+probe Ql (Unsp spec) Not detected Normal NOT DETECTED [facility] Comment on above: Result Comment: When [...] for this test is supported by the [place] of [employer] and Human Service's declaration that [...] CMP, T4, TSH, FT3 #### [facility] [address] [address] [address] Mendel Herron ER URINE PROFILEon 3 Bilirubin Ql (U) Negative Normal NEGATIVE [facility] Comment on above: Performed By: #### L IPID, CMP, T4, TSH, FT3 #### [facility] [address] [place] [address] Dr. Mendel Herron Clarity (U) CLEAR Normal CLEAR [facility] Comment on above: Performed By: #### L IPID, CMP, T4, TSH, FT3 #### [facility] [address] [address] [address] Mendel Herron Color (U) LT. YELLOW Normal YELLOW [facility] Comment on above: Performed By: #### L IPID, CMP, T4, TSH, FT3 #### [facility] [address] [place] [address] Dr. Mendel DECKER A micrscopic examination will be performed if indicated. Normal [facility] Comment on above: Performed By: #### L IPID, CMP, T4, TSH, FT3 #### [facility] [address] [place] [address] Dr. Mendel Herron Glucose Ql (U) Negative Normal NEGATIVE [facility] [place] Comment on above: Performed By: #### L IPID, CMP, T4, TSH, FT3 #### [facility] [address] [place] [address] Dr. Mendel Herron Hemoglobin Ql (U) TRACE-INTACT Abnormal NEGATIVE [facility] Comment on above: Performed By: #### L IPID, CMP, T4, TSH, FT3 #### [facility] [address] [address] [address] Mendel Herron Ketones Ql (U) Negative Normal NEGATIVE [facility] [place] Comment on above: Performed By: #### L IPID, CMP, T4, TSH, FT3 #### [facility] [address] [place] [address] Dr. Mendel Herron LEUKOCYTES Negative Normal NEGATIVE [facility] Comment on above: Performed By: #### L IPID, CMP, T4, TSH, FT3 #### [facility] [address] [place] [address] Dr. Mendel Herron Nitrite Ql (U) Negative Normal NEGATIVE [facility] [place] Comment on above: Performed By: #### L IPID, CMP, T4, TSH, FT3 #### [facility] [address] [place] [address] Dr. Mendel Herron pH (U) 5.0 [pH] Normal 5-9 [facility] Comment on above: Performed By: #### L IPID, CMP, T4, TSH, FT3 #### [facility] [address] [place] [address] Dr. Mendel Herron SPEC GRAVITY 1.015 Normal 1.005-<=1.025 [facility] Comment on above: Performed By: #### L IPID, CMP, T4, TSH, FT3 #### [facility] [address] [place] [address] Dr. Mendel Herron UA PROTEIN Negative Normal NEGATIVE/ TRACE [facility] Comment on above: Performed By: #### L IPID, CMP, T4, TSH, FT3 #### [facility] [address] [place] [address] Dr. Mendel Herron UR MICRO IND INDICATED Normal [facility] Comment on above: Performed By: #### L IPID, CMP, T4, TSH, FT3 #### [facility] [address] [place] [address] Dr. Mendel Herron Urobilinogen Qn (U) 0.2 {James'U}/dL Normal 0.2 - 1. 0 [facility] Comment on above: Performed By: #### L IPID, CMP, T4, TSH, FT3 #### [facility] [address] [place] [address] Dr. Mendel Herron LIPASEon 08-09-2022 Lipase [Catalytic activity/Vol] 114.0 U/L Normal 73.0-393.0 [facility] Comment on above: Performed By: #### L IPA, BMP, CMADM #### [facility] [address] [place] [address] Dr. Mendel Herron PROF CHEM 8 (BAS METB)on Anion gap [Moles/Vol] 18.9 mmol/L Normal [facility] Comment on above: Performed By: #### L IPA, BMP, CMADM #### [facility] [address] [address] [address] Mendel Herron Calcium [Mass/Vol] 9.4 mg/dL Normal 8.5-10.1 [facility] Comment on above: Performed By: #### L IPA, BMP, CMADM #### [facility] [address] [address] [address] Mendel Herron Chloride [Moles/Vol] 97 mmol/L Critically low 98-107 [facility] Comment on above: Performed By: #### L IPA, BMP, CMADM #### [facility] [address] [place] [address] Dr. Mendel Herron CO2 [Moles/Vol] 26.0 mmol/L Normal 21.0-32.0 [facility] Comment on above: Performed By: #### L IPA, BMP, CMADM #### [facility] [address] [place] [address] Dr. Mendel Herron Creatinine [Mass/Vol] 0.85 mg/dL Normal 0.55-1.02 [facility] Comment on above: Performed By: #### L IPA, BMP, CMADM #### [facility] [address] [place] [address] Dr. Mendel Herron EGFR-AF SOMALI >60 Normal >=60 [facility] Comment on above: Performed By: #### L IPA, BMP, CMADM #### [facility] [address] [place] [address] Dr. Mendel Herron EGFR-NON AF SOMALI >60 Normal >=60 [facility] Comment on above: Performed By: #### L IPA, BMP, CMADM #### [facility] [address] [place] [address] Dr. Mendel Herron Glucose [Mass/Vol] 120 mg/dL Critically high 74-106 T [facility] Comment on above: Performed By: #### L IPA, BMP, CMADM #### [facility] [address] [place] [address] Dr. Mendel Herron Potassium [Moles/Vol] 3.9 mmol/L Normal 3.5-5.[address] [facility] Comment on above: Performed By: #### L IPA, BMP, CMADM #### [facility] [address] [place] [address] Dr. Mendel Herron Sodium [Moles/Vol] 138 mmol/L Normal 136-145 [facility] Comment on above: Performed By: #### L IPA, BMP, CMADM #### [facility] [address] [place] [address] Dr. Mendel Herron Urea nitrogen [Mass/Vol] 17.0 mg/dL Normal 7.0-18.0 [facility] Comment on above: Performed By: #### L IPA BMP, CMADM #### [facility] [address] [place] [address] Dr. Mendel Herron Urea nitrogen/Creatinine [Mass ratio] 20.0 mg/mg Normal [facility] Comment on above: Performed By: #### L IPA BMP, CMADM #### [facility] [address] [place] [address] Dr. Mendel Herron TROPONIN, HIGH SENSITIVITYon 08-09-2022 HSTROP 32.5 pg/mL Normal 4.0-51.[address] [facility] Comment on above: Result Comment: CUT- OFF POINTS HAVE BEEN ESTABLISHED BASED ON THE FOURTH UNIVERSAL DEFINITIONS OF MYOCARDIAL INFARCTION. THE UPPER REFERENCE LIMIT (URL) OF TROPONIN, DEFINED THE 99TH PERCENTILE OF cTnI DISTRIBUTION IN A REFERENCE POPULATION, HAS BEEN CONFIRMED THE DECISION THRESHOLD FOR [place] DIAGNOSIS. Performed By: #### L IPID, CMP, T4, TSH, FT3 #### [facility] [address] [place] [address] Dr. Mendel Herron URINE MICROSCOPIC ONLYon BACTERIA NONE SEEN Normal NONE SEEN [facility] Comment on above: Performed By: #### L IPID, CMP, T4, TSH, FT3 #### [facility] [address] [place] [address] Dr. Mendel Herron Bacteria identified Cx Nom (U) NOT INDICATED Normal [facility] Comment on above: Performed By: #### L IPID, CMP, T4, TSH, FT3 #### [facility] [address] [address] [address] Mendel Herron CAST NONE SEEN Normal NONE SEEN [facility] Comment on above: Performed By: #### L IPID, CMP, T4, TSH, FT3 #### [facility] [address] [address] [address] Mendel Herron Crystals LM Nom (Urine sed) NONE SEEN Normal NONE SEEN [facility] Comment on above: Performed By: #### L IPID, CMP, T4, TSH, FT3 #### [facility] [address] [address] [address] Mendel Herron Epithelial cells LM Ql (Urine sed) NONE SEEN Normal NONE SEEN /RARE [facility] Comment on above: Performed By: #### L IPID, CMP, T4, TSH, FT3 #### [facility] [address] [address] [address] Mendel Herron MUCOUS NONE SEEN Normal NONE SEEN [facility] Comment on above: Performed By: #### L IPID, CMP, T4, TSH, FT3 #### [facility] [address] [address] [address] Mendel Herron RBC 0-2 Normal 0-[address] [facility] Comment on above: Performed By: #### L IPID, CMP, T4, TSH, FT3 #### [facility] [address] [address] [address] Mendel Herron WBC NONE SEEN Normal NONE SEEN [facility] Comment on above: Performed By: #### L IPID, CMP, T4, TSH, FT3 #### [facility] [address] [address] [address] Mendel Herron XR CHEST 1 Von [...] by: MARY DIETZ Date: 2022-08-09 15:18 Normal [facility] H PYLORI ANTIBODY IGGon 07-20 H. PYLORI IGG ABS 0.11 Index Value Normal 0.00-0.79 T [facility] Comment on above: Result Comment: Nega tive <0.80 Equivocal 0.80 - 0.89 Positive >0.89 Performed By: #### L IPID, CMP, T4, TSH, FT3 #### [facility] [address] [place] [address] Dr. Mendel Herron AMYLASEon 08-06-2022 Amylase [Catalytic activity/Vol] 57 U/L Normal 25-115 [facility] Comment on above: Performed By: #### L IPID, CMP, T4, TSH, FT3 #### [facility] [address] [place] [address] Dr. Mendel Herron CBC AUTO DIFFon 08-06-2022 BASO # 0.1 103/ul Normal 0.0-0.1 [facility] Comment on above: Performed By: #### L IPID, CMP, T4, TSH, FT3 #### [facility] [address] [place] [address] Dr. Mendel Herron Basophils/100 WBC (Bld) 0.7 % Normal 0.2-2.0 [facility] Comment on above: Performed By: #### L IPID, CMP, T4, TSH, FT3 #### [facility] [address] [place] [address] Dr. Mendel Herron EO # 0.1 103/ul Normal 0.0-0.7 [facility] Comment on above: Performed By: #### L IPID, CMP, T4, TSH, FT3 #### [facility] [address] [place] [address] Dr. Mendel Herron Eosinophils/100 WBC (Bld) 0.5 % Critically low 0.9-7.0 [facility] Comment on above: Performed By: #### L IPID, CMP, T4, TSH, FT3 #### [facility] [address] [place] [address] Dr. Mendel Herron Erythrocyte distribution width (RBC) [Ratio] 13.7 % Normal 11.0-15.0 [facility] Comment on above: Performed By: #### L IPID, CMP, T4, TSH, FT3 #### [facility] [address] [place] [address] Dr. Mendel Herron Hematocrit (Bld) [Volume fraction] 46.2 % Normal 36.0-48.0 [facility] Comment on above: Performed By: #### L IPID, CMP, T4, TSH, FT3 #### [facility] [facility] [address] [place] [address] Dr. Mendel Herron Hemoglobin (Bld) [Mass/Vol] 15.1 g/dL Normal 12.0-16.0 [facility] Comment on above: Performed By: #### L IPID, CMP, T4, TSH, FT3 #### [facility] [address] [place] [address] Dr. Mendel Herron IG # 0.06 10e3/ul Critically high 0.00-0.03 [facility] Comment on above: Performed By: #### L IPID, CMP, T4, TSH, FT3 #### [facility] [address] [place] [address] Dr. Mendel Herron IG % 0.6 % Critically high 0.0-0.5 [facility] Comment on above: Performed By: #### L IPID, CMP, T4, TSH, FT3 #### [facility] [address] [place] [address] Dr. Mendel Herron LYMPH # 2.5 103/ul Normal 1.2-3.8 [facility] Comment on above: Performed By: #### L IPID, CMP, T4, TSH, FT3 #### [facility] [address] [place] [address] Dr. Mendel eHrron Lymphocytes/100 WBC (Bld) 23.4 % Normal 20.5-60.0 [facility] Comment on above: Performed By: #### L IPID, CMP, T4, TSH, FT3 #### [facility] [address] [place] [address] Dr. Mendel Herron MANUAL DIFF REQ NO Normal [facility] Comment on above: Performed By: #### L IPID, CMP, T4, TSH, FT3 #### [facility] [address] [place] [address] Dr. Mendle Herron MCH (RBC) [Entitic mass] 31.4 pg Normal 26.7-34.[address] [facility] Comment on above: Performed By: #### L IPID, CMP, T4, TSH, FT3 #### [facility] [address] [place] [address] Dr. Mendel Herron MCHC (RBC) [Mass/Vol] 32.7 g/dL Normal 29.9-35.[address] [facility] Comment on above: Performed By: #### L IPID, CMP, T4, TSH, FT3 #### [facility] [address] [place] [address] Dr. Mendel Herron MCV (RBC) [Entitic vol] 96.0 fL Normal 81.0-99.0 [facility] Comment on above: Performed By: #### L IPID, CMP, T4, TSH, FT3 #### [facility] [address] [place] [address] Dr. Mendel Herron MONO # 0.6 103/ul Normal 0.3-0.[address] [facility] Comment on above: Performed By: #### L IPID, CMP, T4, TSH, FT3 #### [facility] [address] [place] [address] Dr. Mendel Herron Monocytes/100 WBC (Bld) 6.0 % Normal 1.7-12.0 [facility] Comment on above: Performed By: #### L IPID, CMP, T4, TSH, FT3 #### [facility] [address] [place] [address] Dr. Mendel Herron NEUT # 7.4 103/ul Critically high 1.4-6.5 [facility] Comment on above: Performed By: #### L IPID, CMP, T4, TSH, FT3 #### [facility] [address] [place] [address] Dr. Mendel Herron Neutrophils/100 WBC (Bld) 68.8 % Normal 43.0-75.[address] [facility] Comment on above: Performed By: #### L IPID, CMP, T4, TSH, FT3 #### [facility] [address] [address] [address] Mendel Herron Platelet mean volume (Bld) [Entitic vol] 9.7 fL Normal 9.5-13.[address] [facility] Comment on above: Performed By: #### L IPID, CMP, T4, TSH, FT3 #### [facility] [address] [place] [address] Dr. Mendel Herron PLT 331 103/ul Normal 150-[address] [facility] Comment on above: Performed By: #### L IPID, CMP, T4, TSH, FT3 #### [facility] [address] [place] [address] Dr. Mendel Herron RBC 4.81 106/ul Normal 4.20-5.[address] [facility] Comment on above: Performed By: #### L IPID, CMP, T4, TSH, FT3 #### [facility] [address] [place] [address] Dr. Mendel Herron WBC 10.7 103/ul Normal 4.0-11.[address] [facility] Comment on above: Performed By: #### L IPID, CMP, T4, TSH, FT3 #### [facility] [address] [place] [address] HEAD WO CONon [...] by: JEAN LOPES Date: 2022-08-06 08:39 Normal [facility] LIPASEon 08-06-2022 Lipase [Catalytic activity/Vol] 125.0 U/L Normal 73.0-393.0 [facility] Comment on above: Performed By: #### L IPID, CMP, T4, TSH, FT3 #### [facility] [address] [address] [address] Mendel Herron PROF 14(COMP METB)on 023 Albumin [Mass/Vol] 3.7 g/dL Normal 3.4-5.0 [facility] Comment on above: Performed By: #### L IPID, CMP, T4, TSH, FT3 #### [facility] [address] [place] [address] Dr. Mendel Herron Albumin/Globulin [Mass ratio] 0.9 {ratio} Normal [facility] Comment on above: Performed By: #### L IPID, CMP, T4, TSH, FT3 #### [facility] [address] [address] [address] Mendel Herron ALP [Catalytic activity/Vol] 110 U/L Normal 46-116 [facility] Comment on above: Performed By: #### L IPID, CMP, T4, TSH, FT3 #### [facility] [address] [address] [address] Mendel Herron ALT [Catalytic activity/Vol] 25 U/L Normal 14-59 [facility] Comment on above: Performed By: #### L IPID, CMP, T4, TSH, FT3 #### [facility] [address] [address] [address] Mendel Herron Anion gap [Moles/Vol] 14.0 mmol/L Normal [facility] Comment on above: Performed By: #### L IPID, CMP, T4, TSH, FT3 #### [facility] [address] [address] [address] Mendel Herron AST [Catalytic activity/Vol] 16 U/L Normal 15-37 [facility] Comment on above: Performed By: #### L IPID, CMP, T4, TSH, FT3 #### [facility] [address] [address] [address] Mendel Herron Bilirubin [Mass/Vol] 0.6 mg/dL Normal 0.2-1.0 [facility] Comment on above: Performed By: #### L IPID, CMP, T4, TSH, FT3 #### [facility] [address] [address] [address] Mnedel Herron Calcium [Mass/Vol] 9.3 mg/dL Normal 8.5-10.1 [facility] Comment on above: Performed By: #### L IPID, CMP, T4, TSH, FT3 #### [facility] [address] [place] [address] Dr. Mendel Herron Chloride [Moles/Vol] 103 mmol/L Normal 98-[address] [facility] Comment on above: Performed By: #### L IPID, CMP, T4, TSH, FT3 #### [facility] [address] [address] [address] Mendel Herron CO2 [Moles/Vol] 27.3 mmol/L Normal 21.0-32.0 [facility] Comment on above: Performed By: #### L IPID, CMP, T4, TSH, FT3 #### [facility] [address] [place] [address] Dr. Mendel Herron Creatinine [Mass/Vol] 0.71 mg/dL Normal 0.55-1.02 [facility] Comment on above: Performed By: #### L IPID, CMP, T4, TSH, FT3 #### [facility] [address] [address] [address] Mendel Herron EGFR-AF SOMALI >60 Normal >=60 [facility] Comment on above: Performed By: #### L IPID, CMP, T4, TSH, FT3 #### [facility] [address] [address] [address] Mendel Herron EGFR-NON AF SOMALI >60 Normal >=60 [facility] Comment on above: Performed By: #### L IPID, CMP, T4, TSH, FT3 #### [facility] [address] [address] [address] Mendel Herron Globulin (S) [Mass/Vol] 4.3 g/dL Normal [facility] Comment on above: Performed By: #### L IPID, CMP, T4, TSH, FT3 #### [facility] [address] [address] [address] Mendel Herron Glucose [Mass/Vol] 102 mg/dL Normal 74-106 [facility] Comment on above: Performed By: #### L IPID, CMP, T4, TSH, FT3 #### [facility] [address] [place] [address] Dr. Mendel Herron Potassium [Moles/Vol] 4.3 mmol/L Normal 3.5-5.[address] [facility] Comment on above: Performed By: #### L IPID, CMP, T4, TSH, FT3 #### [facility] [address] [place] [address] Dr. Mendel Herron Protein [Mass/Vol] 8.0 g/dL Normal 6.4-8.2 [facility] Comment on above: Performed By: #### L IPID, CMP, T4, TSH, FT3 #### [facility] [address] [place] [address] Dr. Mendel Herron Sodium [Moles/Vol] 140 mmol/L Normal 136-145 [facility] Comment on above: Performed By: #### L IPID, CMP, T4, TSH, FT3 #### [facility] [address] [place] [address] Dr. Mendel Herron Urea nitrogen [Mass/Vol] 19.0 mg/dL Critically high 7.0-18.[address] [facility] Comment on above: Performed By: #### L IPID, CMP, T4, TSH, FT3 #### [facility] [address] [place] [address] Dr. Mendel Herron Urea nitrogen/Creatinine [Mass ratio] 26.8 mg/mg Normal [facility] Comment on above: Performed By: #### L IPID, CMP, T4, TSH, FT3 #### [facility] [address] [address] [address] Mendel Herron Covid-19 PCR ([facility])on 06-19 SARS-CoV-2 (COVID-19) RNA DEIRDRE+probe Ql (Unsp spec) Not detected Normal NOT DETECTED [facility] Comment on above: Result Comment: This test is not yet approved or cleared by the [place] FDA. When there are no FDA-approved or cleared tests available, and other criteria are met, FDA can make tests available under an emergency access mechanism called an Emergency Use Authorization (EUA). The EUA for this test is supported by the [employer] of Health and Human Service's (HHS's) declaration [...] SARS-CoV-2. Performed By: #### C VDTB #### [facility] [address] [place] [address] Dr. Mendel Herron INFLUENZA A AND B AGon 07-16 [facility] SEE BELOW Normal [facility] Comment on above: Result Comment: Nega tive for Flu A protein angiten. Infection due to Flu A cannot be ruled out. Flu A angiten in the sample may be below the detection limit of the test. Performed By: #### L IPID, CMP, T4, TSH, FT3 #### [facility] [address] [place] [address] Dr. Mendel Herron INFLUBNEG SEE BELOW Normal [facility] Comment on above: Result Comment: Nega tive for Flu B protein antigen. Infection due to Flu B cannot be ruled out. Flu B antigen in the sample may be below the detection limit of the test. Performed By: #### L IPID, CMP, T4, TSH, FT3 #### [facility] [address] [address] [address] Mendel Herron INFLUENZA A AG Negative Normal NEGATIVE SEE COMMENT [facility] Comment on above: Performed By: #### L IPID, CMP, T4, TSH, FT3 #### [facility] [address] [address] [address] Mendel Herron INFLUENZA B AG Negative Normal NEGATIVE SEE COMMENT [facility] Comment on above: Performed By: #### L IPID, CMP, T4, TSH, FT3 #### [facility] [address] [address] [address] Mendel Herron Covid-19 PCR ([facility])on 04-19 SARS-CoV-2 (COVID-19) RNA DEIRDRE+probe Ql (Unsp spec) Not detected Normal NOT DETECTED [facility] Comment on above: Result Comment: This test is not yet approved or cleared by the [place] FDA. When there are no FDA-approved or cleared tests available, and other criteria are met, FDA can make tests available under an emergency access mechanism called an Emergency Use Authorization (EUA). The EUA for this test is supported by the [employer] of Health and Human Service's (HHS's) declaration [...] CMP, T4, TSH, FT3 #### [facility] [address] [address] [address] Mendel Herron INFLUENZA A AND B AGon 05-11 [facility] SEE BELOW Normal [facility] Comment on above: Result Comment: Nega tive for Flu A protein angiten. Infection due to Flu A cannot be ruled out. Flu A angiten in the sample may be below the detection limit of the test. Performed By: #### L IPID, CMP, T4, TSH, FT3 #### [facility] [address] [address] [address] Mendel Herron [facility] SEE BELOW Normal [facility] Comment on above: Result Comment: Nega tive for Flu B protein antigen. Infection due to Flu B cannot be ruled out. Flu B antigen in the sample may be below the detection limit of the test. Performed By: #### L IPID, CMP, T4, TSH, FT3 #### [facility] [address] [address] [address] Mendel Herron INFLUENZA A AG Negative Normal NEGATIVE SEE COMMENT [facility] Comment on above: Performed By: #### L IPID, CMP, T4, TSH, FT3 #### [facility] [address] [address] [address] Mendel Herron INFLUENZA B AG Negative Normal NEGATIVE SEE COMMENT [facility] Comment on above: Performed By: #### L IPID, CMP, T4, TSH, FT3 #### [facility] [address] [address] [address] Mendel Herron INTERNAL CONTROLS Within Normal Limits Normal Wi thin Normal Limits [facility] Comment on above: Performed By: #### L IPID, CMP, T4, TSH, FT3 #### [facility] [address] [address] [address] Mendel Herron Comprehensive Metabolic Empo n 12-23-2021 Albumin [Mass/Vol] 3.7 g/dL Normal 3.2-5.5 [facility] Comment on above: Performed By: #### E BS CMP, EBS LIPID #### [facility] [address] Albumin/Globulin [Mass ratio] 1.0 {ratio} Normal [facility] Comment on above: Performed By: #### E BS CMP, EBS LIPID #### [facility] [address] [place] [address] [place] ALP [Catalytic activity/Vol] 159 U/L High 32-92 [facility] Comment on above: Performed By: #### E BS CMP, EBS LIPID #### [facility] [address] [id number] [facility] ALT [Catalytic activity/Vol] 28 U/L Normal 10-60 [facility] Comment on above: Performed By: #### E BS CMP, EBS LIPID #### [facility] [address] [id number] [facility] AST [Catalytic activity/Vol] 27 U/L Normal 10-42 [facility] Comment on above: Performed By: #### E BS CMP, EBS LIPID #### [facility] [address] [id number] [facility] Bilirubin [Mass/Vol] 1.2 mg/dL Normal 0.3-1.2 [facility] Comment on above: Performed By: #### E BS CMP, EBS LIPID #### [facility] [address] Calcium [Mass/Vol] 9.2 mg/dL Normal 8.2-10.2 [facility] Comment on above: Performed By: #### E BS CMP, EBS LIPID #### [facility] [address] [place] [address] [place] Chloride [Moles/Vol] 100 mmol/L Normal 95-114 [facility] Comment on above: Performed By: #### E BS CMP, EBS LIPID #### [facility] [address] [place] [address] [place] CO2 [Moles/Vol] 20.6 mmol/L Low 22.0-30.0 [facility] Comment on above: Performed By: #### E BS CMP, EBS LIPID #### [facility] [address] [id number] [place] Creatinine [Mass/Vol] 0.57 mg/dL Normal 0.44-1.03 [facility] Comment on above: Performed By: #### E BS CMP, EBS LIPID #### [facility] [address] [id number] [place] Estimated GFR ( Ni > 60 Normal [facility] Comment on above: Result Comment: GFR estimated reference range: According to KDOQI guidelines, <60 ml/min/1.73m2 is sufficient to diagnose a patient with chronic kidney disease. Performed By: #### E BS CMP, EBS LIPID #### [address] Estimated GFR (Non- Am > 60 Normal [facility] Comment on above: Performed By: #### E BS CMP, EBS LIPID #### [address] Globulin (S) [Mass/Vol] 3.7 g/dL Normal [facility] Comment on above: Performed By: #### E BS CMP, EBS LIPID #### [address] Glucose [Mass/Vol] 100 mg/dL Normal 70-100 [facility] Comment on above: Performed By: #### E BS CMP, EBS LIPID #### [address] Potassium [Moles/Vol] 3.9 mmol/L Normal 3.5-5.1 [facility] Comment on above: Performed By: #### E BS CMP, EBS LIPID #### [address] Protein [Mass/Vol] 7.4 g/dL Normal 6.1-7.9 [facility] Comment on above: Performed By: #### E BS CMP, EBS LIPID #### [address] Sodium [Moles/Vol] 135 mmol/L Low 136-146 [facility] Comment on above: Performed By: #### E BS CMP, EBS LIPID #### [address] Urea nitrogen [Mass/Vol] 12 mg/dL Normal 9-23 [facility] Comment on above: Performed By: #### E BS CMP, EBS LIPID #### [facility] [address] [place] [address] Lipid Profileon 12-23-2021 Cholesterol [Mass/Vol] 213 mg/dL High 140-200 [facility] Comment on above: Result Comment: Chol less than 200 mg/dl low risk Chol 201-239 mg/dl borderline risk Chol 240 mg/dl and greater high risk Performed By: #### E BS CMP, EBS LIPID #### [facility] [address] Cholesterol in HDL [Mass/Vol] 36 mg/dL Normal 35-85 [facility] Comment on above: Result Comment: HDL CHOL ATP-III CLASSIFICATION Cardiovascular Risk HDL > or equal to 60 mg/dL LOW HDL < 40 mg/dL HIGH Performed By: #### E BS CMP, EBS LIPID #### [facility] [address] Cholesterol.total/Ch olesterol in HDL [Mass ratio] 5.9 {ratio} Normal <5.0 [facility] Comment on above: Result Comment: PERF ORMED BY: [place] [address] PATHOLOGIST PIGMENT PROCESSOR MARIBEL AGUILLON M.D. Performed By: #### E BS CMP, EBS LIPID #### [facility] [address] LDL Cholesterol,Calculat ed 151 mg/dL High 0-100 [facility] Comment on above: Result Comment: LDL ATP III CLASSIFICATION LDL less than 100 mg/dL Optimal LDL 100-129 mg/dL Near or above optimal LDL 130-159 mg/dL Borderline high LDL 160-189 mg/dL High LDL greater than 189 mg/dL Very high Performed By: #### E BS CMP, EBS LIPID #### [facility] [address] [place] [address] [place] Triglyceride w/Reflex 129 mg/dL Normal 35-149 [facility] Comment on above: Result Comment: TRIG ATP III CLASSIFICATION TRIG less than 150 mg/dL Normal TRIG 150-199 mg/dL Borderline high TRIG 200-500 mg/dL High TRIG greater than 500 mg/dL Very high Standard traceable to the Center for Disease Conrtrol and Prevention (CDC) test method. Performed By: #### E BS CMP, EBS LIPID #### [facility] [address] [place] [id number] [facility] VLDL CHOLESTEROL 25 mg/dL Normal [facility] Comment on above: Performed By: #### E BS CMP, EBS LIPID #### [facility] [address] [id number] [facility] Covid-19 PCR ([facility])on 11-16 SARS-CoV-2 (COVID-19) RNA DEIRDRE+probe Ql (Unsp spec) Detected Critically abnormal NOT DETECTED [facility] Comment on above: Result Comment: This test is not yet approved or cleared by the [place] FDA. When there are no FDA-approved or cleared tests available, and other criteria are met, FDA can make tests available under an emergency access mechanism called an Emergency Use Authorization (EUA). The EUA for this test is supported by the [employer] of Health and Human Service's declaration that [...] By: #### C VDTBH #### [facility] [address] [place] [address] Dr. Mendel Herron INFLUENZA A AND B AGon 12-02 [facility] SEE BELOW Normal [facility] Comment on above: Result Comment: Nega tive for Flu A protein angiten. Infection due to Flu A cannot be ruled out. Flu A angiten in the sample may be below the detection limit of the test. Performed By: #### L IPID, CMP, T4, TSH, FT3 #### [facility] [address] [place] [address] Dr. Mendel Herron INFLUBNEG SEE BELOW Normal [facility] Comment on above: Result Comment: Nega tive for Flu B protein antigen. Infection due to Flu B cannot be ruled out. Flu B antigen in the sample may be below the detection limit of the test. Performed By: #### L IPID, CMP, T4, TSH, FT3 #### [facility] [address] [place], [place] [address] Dr. Mendel Herron INFLUENZA A AG Negative Normal NEGATIVE SEE COMMENT [facility] Comment on above: Performed By: #### L IPID, CMP, T4, TSH, FT3 #### [facility] [address] [place], [place] [address] Dr. Mendel Herron INFLUENZA B AG Negative Normal NEGATIVE SEE COMMENT [facility] Comment on above: Performed By: #### L IPID, CMP, T4, TSH, FT3 #### [facility] [address] [place], [place] [address] Dr. Mendel Herron INTERNAL CONTROLS Within Normal Limits Normal Wi thin Normal Limits [facility] Comment on above: Performed By: #### L IPID, CMP, T4, TSH, FT3 #### [facility] [address] [place], [place] [address] Dr. Mendel Herron Cardiovascular Lab Reporton 08-18-2021 Cardiovascular Lab Report [facility] Patient Name: [facility] S MR #: [id number] Department of Physician: Curtis Martinez MD Medicine Service Date: 08/18/2021 Division of Birthdate: 1970 Cardiology Room #: Adult Cardiovascular Services [place] [address] Cardiovascular Laboratory Report ATRIAL FLUTTER ABLATION AND [...] ab (more content not included)... Normal [facility] BILL Antinuclear Antibodieson 04-23-2021 Antinuclear Abs, IFA Negative Normal . [facility] Comment on above: Result Comment: Nega tive <1:80 Borderline 1:80 Positive >1:80 ICAP nomenclature: AC-0 For more information about Hep-2 cell patterns use ANApatterns.org, the official website for the International Consensus on Antinuclear Antibody (BILL) Patterns (ICAP). Performed at: - [facility] [id number] Contact Lens Technician: Ger Yen PhD, Phone: [phone] PERFORMED BY: [place] [address] PATHOLOGIST PIGMENT PROCESSOR MARIBEL AGUILLON M.D. Performed By: #### E SR, CRP, CBC, CREAT #### [address] #### BILL #### [facility] , C-Reactive Proteinon 021 C-Reactive Protein 0.7 mg/dL Normal 0.0-1.0 [facility] Comment on above: Result Comment: PERF ORMED BY: [place] [address] PATHOLOGIST PIGMENT PROCESSOR MARIBEL AGUILLON M.D. Performed By: #### E SR, CRP, CBC, CREAT #### [facility] [address] [place] [address] #### BILL #### [facility] , Complement C3on 04-23-2021 Complement C3 170 mg/dL High 82-167 [facility] Comment on above: Result Comment: Perf ormed at: [address] [id number] Contact Lens Technician: Ger Yen PhD, Phone: [phone] Performed By: #### A DDONUAPLUS #### [address] #### CH50, C3, C4 #### [facility] , Complement C4on 04-23-2021 Complement C4 14 mg/dL Normal 12-38 [facility] Comment on above: Performed By: #### A DDONUAPLUS #### [address] #### CH50, C3, C4 #### [facility] , Complement Total (CH50)on Complement Total (CH50) >60 Normal >41 [facility] Comment on above: Result [...] determine out of range values. Performed at: [facility] [id number] Contact Lens Technician: Ger Yen PhD, Phone: [phone] PERFORMED BY: [place] [address] PATHOLOGIST PIGMENT PROCESSOR MARIBEL AGUILLON M.D. Performed By: #### E BS CMP, EBS LIPID #### [address] Complete Blood Count Auto Di ffon 04-23-2021 Basophils (Bld) [#/Vol] 0.1 10*3/uL Normal 0.0-0.2 [facility] Comment on above: Performed By: #### E SR, CRP, CBC, CREAT #### [address] #### BILL #### [facility] , Basophils/100 WBC (Bld) 0.7 % Normal . [facility] Comment on above: Performed By: #### E SR, CRP, CBC, CREAT #### [address] #### BILL #### [facility] , Eosinophils (Bld) [#/Vol] 0.1 10*3/uL Normal 0.0-0.45 [facility] Comment on above: Performed By: #### E SR, CRP, CBC, CREAT #### [address] #### BILL #### [facility] , Eosinophils/100 WBC (Bld) 0.5 % Normal . [facility] Comment on above: Performed By: #### E SR, CRP, CBC, CREAT #### [address] #### BILL #### [facility] , Erythrocyte distribution width (RBC) [Ratio] 18.0 % High 11.9-15.3 [facility] Comment on above: Performed By: #### E SR, CRP, CBC, CREAT #### [place] [address] [place] #### BILL #### [facility] , Hematocrit (Bld) [Volume fraction] 31.6 % Low 34.0-46.4 [facility] Comment on above: Performed By: #### E SR, CRP, CBC, CREAT #### [facility] [address] [place] [address] #### BILL #### [facility] , Hemoglobin (Bld) [Mass/Vol] 9.8 g/dL Low 11.8-15.4 [facility] Comment on above: Performed By: #### E SR, CRP, CBC, CREAT #### [address] #### BILL #### [facility] , Lymphocytes (Bld) [#/Vol] 1.7 10*3/uL Normal 1.00-4.8 [facility] Comment on above: Performed By: #### E SR, CRP, CBC, CREAT #### [address] #### BILL #### [facility] , Lymphocytes/100 WBC (Bld) 15.0 % Normal . [facility] Comment on above: Performed By: #### E SR, CRP, CBC, CREAT #### [address] #### BILL #### [facility] , MCH (RBC) [Entitic mass] 24.8 pg Normal 24.7-34.3 [facility] Comment on above: Performed By: #### E SR, CRP, CBC, CREAT #### [place] [address] [place] #### BILL #### [facility] , MCV (RBC) [Entitic vol] 80.1 fL Normal 80-100 [facility] Comment on above: Performed By: #### E SR, CRP, CBC, CREAT #### [place] [address] [place] #### BILL #### [facility] , Mean Corpuscular HGB Conc 31.0 g/dL Low 32.0-35.0 [facility] Comment on above: Performed By: #### E SR, CRP, CBC, CREAT #### [address] #### BILL #### [facility] , Monocytes (Bld) [#/Vol] 0.5 10*3/uL Normal 0.0-0.8 [facility] Comment on above: Performed By: #### E SR, CRP, CBC, CREAT #### [place] [address] [place] #### BILL #### [facility] , Monocytes/100 WBC (Bld) 4.6 % Normal . [facility] Comment on above: Performed By: #### E SR, CRP, CBC, CREAT #### [address] #### BILL #### [facility] , Neutrophils (Bld) [#/Vol] 9.1 10*3/uL High 1.8-7.7 [facility] Comment on above: Performed By: #### E SR, CRP, CBC, CREAT #### [place] [address] [place] #### BILL #### [facility] , Neutrophils/100 WBC (Bld) 79.2 % Normal . [facility] Comment on above: Performed By: #### E SR, CRP, CBC, CREAT #### [facility] [address] [place] [address] [place] #### BILL #### [facility] , Nucleated RBC/100 WBC (Bld) [Ratio] 0.1 % Normal 0-0.5 [facility] Comment on above: Performed By: #### E SR, CRP, CBC, CREAT #### [address] [place] [address] [place] #### BILL #### [facility] , Platelet mean volume (Bld) [Entitic vol] 8.3 fL Normal 6.3-10.7 [facility] Comment on above: Performed By: #### E SR, CRP, CBC, CREAT #### [facility] [address] [place] [address] [place] #### BILL #### [facility] , Platelets (Bld) [#/Vol] 336 10*3/uL Normal 150-450 [facility] Comment on above: Performed By: #### E SR, CRP, CBC, CREAT #### [facility] [address] [place] [address] #### BILL #### [facility] , RBC (Bld) [#/Vol] 3.94 10*6/uL Normal 3.60-5.00 [facility] Comment on above: Performed By: #### E SR, CRP, CBC, CREAT #### [facility] [address] [place] [address] #### BILL #### [facility] , WBC (Bld) [#/Vol] 11.5 10*3/uL High 4.5-11.0 [facility] Comment on above: Performed By: #### E SR, CRP, CBC, CREAT #### [facility] [address] [place] [address] [place] #### BILL #### [facility] , Creatinineon 04-23-2021 Creatinine [Mass/Vol] 0.75 mg/dL Normal 0.44-1.03 [facility] Comment on above: Performed By: #### E SR, CRP, CBC, CREAT #### [facility] [address] [place] [address] [place] #### BILL #### [facility] , Estimated GFR ( Ni > 60 Normal [facility] Comment on above: Result Comment: GFR estimated reference range: According to KDOQI guidelines, <60 ml/min/1.73m2 is sufficient to diagnose a patient with chronic kidney disease. Performed By: #### E SR, CRP, CBC, CREAT #### [address] #### BILL #### [facility] , Estimated GFR (Non- Am > 60 Normal [facility] Comment on above: Performed By: #### E SR, CRP, CBC, CREAT #### [address] #### BILL #### [facility] , Dipstick and Microscopicon 1 Appearance (U) Clear Normal Clear [facility] Comment on above: Order Comment: Name Collection Type:: Clean-Voided Midstream Performed By: #### A DDONUAPLUS #### [address] #### CH50, C3, C4 #### [facility] , Bacteria,Urine None Seen Normal None Seen [facility] Comment on above: Order Comment: Name Collection Type:: Clean-Voided Midstream Performed By: #### A DDONUAPLUS #### [address] #### CH50, C3, C4 #### [facility] , Bilirubin,Urine Negative Normal Negative [facility] Comment on above: Order Comment: Name Collection Type:: Clean-Voided Midstream Performed By: #### A DDONUAPLUS #### [place] [address] [place] #### CH50, C3, C4 #### [facility] , Color (U) Yellow Normal Yellow [facility] Comment on above: Order Comment: Name Collection Type:: Clean-Voided Midstream Performed By: #### A DDONUAPLUS #### [address] #### CH50, C3, C4 #### [facility] , Glucose Ql (U) 100 mg/dL High Normal [facility] Comment on above: Order Comment: Name Collection Type:: Clean-Voided Midstream Performed By: #### A DDONUAPLUS #### [address] #### CH50, C3, C4 #### [facility] , Hyaline Casts,Urine 0-8 Normal 0-8 [facility] Comment on above: Order Comment: Name Collection Type:: Clean-Voided Midstream Result Comment: PERF ORMED BY: [place] [address] PATHOLOGIST PIGMENT PROCESSOR MARIBEL AGUILLON M.D. Performed By: #### A DDONUAPLUS #### [address] #### CH50, C3, C4 #### [facility] , Ketones Ql (U) Negative Normal Negative [facility] Comment on above: Order Comment: Name Collection Type:: Clean-Voided Midstream Performed By: #### A DDONUAPLUS #### [address] #### CH50, C3, C4 #### [facility] , Leukocyte esterase Test strip Ql (U) Negative Normal Negative [facility] Comment on above: Order Comment: Name Collection Type:: Clean-Voided Midstream Performed By: #### A DDONUAPLUS #### [address] #### CH50, C3, C4 #### [facility] , Nitrite,Urine Negative Normal Negative [facility] Comment on above: Order Comment: Name Collection Type:: Clean-Voided Midstream Performed By: #### A DDONUAPLUS #### [address] #### CH50, C3, C4 #### [facility] , Occult Blood,Urine Negative Normal Negative [facility] Comment on above: Order Comment: Name Collection Type:: Clean-Voided Midstream Performed By: #### A DDONUAPLUS #### [address] #### CH50, C3, C4 #### [facility] , pH (U) 5.0 [pH] Normal 5.0-9.0 [facility] Comment on above: Order Comment: Name Collection Type:: Clean-Voided Midstream Performed By: #### A DDONUAPLUS #### [address] #### CH50, C3, C4 #### [facility] , Protein,Urine Negative Normal Negative [facility] Comment on above: Order Comment: Name Collection Type:: Clean-Voided Midstream Performed By: #### A DDONUAPLUS #### [address] #### CH50, C3, C4 #### [facility] , RBC,Urine None Seen Normal 0-4 [facility] Comment on above: Order Comment: Name Collection Type:: Clean-Voided Midstream Performed By: #### A DDONUAPLUS #### [facility] [address] [place] [address] #### CH50, C3, C4 #### [facility] , Specificy [place],Urine 1.009 Normal 1.001-1.030 [facility] Comment on above: Order Comment: Name Collection Type:: Clean-Voided Midstream Performed By: #### A DDONUAPLUS #### [address] #### CH50, C3, C4 #### [facility] , Squamous Epithelial Cell,Urine 0-1 Normal 0-2 [facility] Comment on above: Order Comment: Name Collection Type:: Clean-Voided Midstream Performed By: #### A DDONUAPLUS #### [address] #### CH50, C3, C4 #### [facility] , Urobilinogen,Urine Normal Normal Normal [facility] Comment on above: Order Comment: Name Collection Type:: Clean-Voided Midstream Performed By: #### A DDONUAPLUS #### [address] #### CH50, C3, C4 #### [facility] , WBC LM.HPF (Urine sed) [#/Area] 0 /[HPF] Normal 0-4 [facility] Comment on above: Order Comment: Name Collection Type:: Clean-Voided Midstream Performed By: #### A DDONUAPLUS #### [address] #### CH50, C3, C4 #### [facility] , Erythrocyte Sedimentation Ra ryley 04-23-2021 ESR (Bld) [Velocity] 55 mm/h High 0-29 [facility] Comment on above: Result Comment: PERF ORMED BY: [place] [address] PATHOLOGIST PIGMENT PROCESSOR MARIBEL AGUILLON M.D. Performed By: #### E SR, CRP, CBC, CREAT #### [address] #### BILL #### [facility] , BASIC METABOLIC PANELon 03-20 Calcium [Mass/Vol] 8.7 mg/dL Normal 8.6-10.3 [facility] above: Order Comment: No: D o not add to previous draw Performed By: #### 5 7307, 60173 #### [facility] [address] [place] [address], [place] Chloride [Moles/Vol] 97 mmol/L Low 98-107 [facility] Comment on above: Order Comment: No: D o not add to previous draw Performed By: #### 5 7307, 05904 #### [facility] [address] [place] [address], [place] CO2 [Moles/Vol] 36 mmol/L High 21-31 [facility] Comment on above: Order Comment: No: D o not add to previous draw Performed By: #### 5 7307, 44727 #### [facility] [address] [place] [address], [place] Creatinine [Mass/Vol] 0.74 mg/dL Normal 0.60-1.20 [facility] Comment on above: Order Comment: No: D o not add to previous draw Performed By: #### 5 7307, 07069 #### [facility] [address] [place] [address], [place] GFR/1.73 sq M.predicted among blacks MDRD (S/P/Bld) [Vol rate/Area] mL/min/{1.73_m2} Normal >60 [facility] Comment on above: Order Comment: No: D o not add to previous draw Performed By: #### 5 7307, 34707 #### [facility] [address] [place] [address], [place] GFR/1.73 sq M.predicted among non-blacks MDRD (S/P/Bld) [Vol rate/Area] mL/min/{1.73_m2} Normal >60 [facility] Comment on above: Order Comment: No: D o not add to previous draw Performed By: #### 5 7307, 59186 #### [facility] [address] [place] [address], [place] Glucose [Mass/Vol] 123 mg/dL High 70-100 [facility] Comment on above: Order Comment: No: D o not add to previous draw Performed By: #### 5 7307, 27331 #### [facility] [address] [place] [address], [place] Potassium [Moles/Vol] 4.3 mmol/L Normal 3.5-5.1 [facility] Comment on above: Order Comment: No: D o not add to previous draw Performed By: #### 5 7307, 88019 #### [facility] [address] [place] [address], [place] Sodium [Moles/Vol] 139 mmol/L Normal 136-[address] [facility] Comment on above: Order Comment: No: D o not add to previous draw Performed By: #### 5 7307, 51432 #### [facility] [address] [place] [address], [place] Urea nitrogen [Mass/Vol] 24 mg/dL Normal 7-25 [facility] Comment on above: Order Comment: No: D o not add to previous draw Performed By: #### 5 7307, 33510 #### [facility] [address] [place] [address], [place] CBC COMPLETE BLOOD COUNTon 0 04-11-2021 Erythrocyte distribution width (RBC) [Ratio] 16.8 % High 11.5-15.0 [facility] Comment on above: Order Comment: No: D o not add to previous draw Performed By: #### 5 7307, 49328 #### [facility] [address] [place] [address], [place] Hematocrit (Bld) [Volume fraction] 29.7 % Low 36.0-45.0 [facility] Comment on above: Order Comment: No: D o not add to previous draw Performed By: #### 5 7307, 34251 #### [facility] [address] [place] [address], [place] Hemoglobin (Bld) [Mass/Vol] 8.9 g/dL Low 12.0-15.0 [facility] Comment on above: Order Comment: No: D o not add to previous draw Performed By: #### 5 73, 53309 #### [facility] [address] [place] [address], [facility] MCH (RBC) [Entitic mass] 25.4 pg Low 27.0-33.0 [facility] Comment on above: Order Comment: No: D o not add to previous draw Performed By: #### 5 73, 99358 #### [facility] [address] [place] [address], [facility] MCHC (RBC) [Mass/Vol] 30.0 g/dL Low 32.0-35.0 [facility] Comment on above: Order Comment: No: D o not add to previous draw Performed By: #### 5 73, 80809 #### [facility] [address] [place] [address], [facility] MCV (RBC) [Entitic vol] 84.9 fL Normal 82.0-98.0 [facility] Comment on above: Order Comment: No: D o not add to previous draw Performed By: #### 5 73, 73515 #### [facility] [address] [facility]. [address] Nucleated RBC/100 WBC (Bld) [Ratio] 0 % Normal 0-0 [facility] Comment on above: Order Comment: No: D o not add to previous draw Performed By: #### 5 7307, 38364 #### [facility] [address] [place] [address], [facility] PLAT CNT 446 10*3/uL High 150-400 [facility] Comment on above: Order Comment: No: D o not add to previous draw Performed By: #### 5 7307, 60320 #### [facility] [address] [place] [address], [facility] RBC (Bld) [#/Vol] 3.50 10*6/uL Low 3.80-5.00 The [facility] Comment on above: Order Comment: No: D o not add to previous draw Performed By: #### 5 7307, 63662 #### [facility] [address] WBC (Bld) [#/Vol] 16.54 10*3/uL High 4.00-10.60 [facility] Comment on above: Order Comment: No: D o not add to previous draw Performed By: #### 5 7307, 55838 #### [facility] [address] Cardiovascular Lab Reporton 04-11-2021 Cardiovascular Lab Report [facility] Patient Name: Antonio [facility] S MR #: [id number] Department of Physician: London Rodas M.D. Division of Service Date: 04/11/2021 Cardiology Birthdate: 1970 Adult Cardiovascular Room #: 5AB [id number] [place] [address] Cardiovascular Laboratory Report PROCEDURE PERFORMED: Transesophageal echocardiogram and cardioversion. INDICATION: Atrial flutter. FELLOW: Dunia Sierra MD PROCEDURE IN DETAIL: Informed consent was obtained from the patient after explaining the indication, risks, benefits, as well as alternatives. The patient understood and agreed, and signed the consent form. The patient was brought to the slab stripper and transesophageal echocardiogram was performed, under conscious [...] Sierra MD Date Trans: 04/11/2021 12:53 P/marixa [id number] cc: Phillip Ann M.D. [address] [place] [address] Normal [facility] MAGNESIUM BLOODon 04-11-2021 Magnesium [Mass/Vol] 2.3 mg/dL Normal 1.9-2.7 [facility] Comment on above: Order Comment: No: D o not add to previous draw Performed By: #### 5 7307, 31056 #### [facility] [address] [place] [address], [facility] POC GLUCOSE LABon 04-11-2021 Glucose [Mass/Vol] 124 mg/dL High 70-[address] [facility] Comment on above: Performed By: #### 5 7307, 74925 #### [facility] [address] [place] [address], [facility] TROPONIN-Ion 04-11-2021 Troponin I.cardiac [Mass/Vol] 0.06 ng/mL High 0.00-0.04 [facility] Comment on above: Order Comment: No: D o not add to previous draw Result Comment: REFE RENCE RANGES: 0.00 - 0.04 ng/ml NORMAL 0.05 - 0.50 ng/ml INDETERMINATE > 0.50 ng/ml CONSISTENT WITH AN M.I. Performed By: #### 5 7307, 35608 #### [facility] [address] *BLOOD CULTUREon 04-10-2021 *BLOOD CULTURE Clinical Report: (D) Specimen: BLOOD CULTURE Collected: 04/10/2021 09:50 Status: Final Last Updated: 04/15/2021 11:28 (1) Right hand CULT RES (Final) No Growth Day 5 Normal [facility] Comment on above: Order Comment: No: D o not add to previous draw Performed By: #### 5 7307, 49209 #### [facility] [address] [facility] *BLOOD CULTURE Clinical Report: (D) Specimen: BLOOD CULTURE Collected: 04/10/2021 09:50 Status: Final Last Updated: 04/15/2021 11:28 (1) Left hand CULT RES (Final) No Growth Day 5 Normal [facility] Comment on above: Order Comment: No: D o not add to previous draw Performed By: #### 5 7307, 50431 #### [facility] [address] [facility] *SARS-CoV-2 COVID-19on 04-10 SARS-CoV-2 (COVID-19) RNA DEIRDRE+probe Ql (Unsp spec) Not detected Normal Not Detected [facility] Comment on above: Order Comment: No: D o not add to previous draw Performed By: #### 5 7307, 05600 #### [facility] [address] [facility] APTTon 04-10-2021 aPTT Coag (Bld) [Time] 23.4 s Low 25.0-35.0 [facility] Comment on above: Order Comment: No: [...] THIS PURPOSE. Performed By: #### 5 7307, 33258 #### [facility] [address] aPTT Coag (Bld) [Time] 23.2 s Low 25.0-35.0 [facility] Comment on above: Order Comment: No: [...] THIS PURPOSE. Performed By: #### 5 7307, 61113 #### [facility] [address] [place] [address], [facility] BASIC METABOLIC PANELon 09-2 Calcium [Mass/Vol] 8.6 mg/dL Normal 8.6-10.3 [facility] Comment on above: Order Comment: No: D o not add to previous draw Performed By: #### 1 0, 39634, 67370 #### [facility] [address] [place] [id number], [facility] Chloride [Moles/Vol] 99 mmol/L Normal 98-107 [facility] Comment on above: Order Comment: No: D o not add to previous draw Performed By: #### 1 0, 10911, 98281 #### [facility] [address] [place] [address], [facility] CO2 [Moles/Vol] 32 mmol/L High 21-31 [facility] Comment on above: Order Comment: No: D o not add to previous draw Performed By: #### 1 0, 52765, 72353 #### [facility] [address] [place] [address], [place] Creatinine [Mass/Vol] 0.84 mg/dL Normal 0.60-1.20 [facility] Comment on above: Order Comment: No: D o not add to previous draw Performed By: #### 1 0, 20831, 90621 #### [facility] [address] [place] [address], [place] GFR/1.73 sq M.predicted among blacks MDRD (S/P/Bld) [Vol rate/Area] mL/min/{1.73_m2} Normal >60 [facility] Comment on above: Order Comment: No: D o not add to previous draw Performed By: #### 1 0, 58975, 53995 #### [facility] [address] [place] [address], [place] GFR/1.73 sq M.predicted among non-blacks MDRD (S/P/Bld) [Vol rate/Area] mL/min/{1.73_m2} Normal >60 [facility] Comment on above: Order Comment: No: D o not add to previous draw Performed By: #### 1 0, 95519, 67521 #### [facility] [address] [place] [address], [place] Glucose [Mass/Vol] 117 mg/dL High 70-[address] [facility] Comment on above: Order Comment: No: D o not add to previous draw Performed By: #### 1 0, 10240, 16392 #### [facility] [address] [place] [address], [place] Potassium [Moles/Vol] 3.9 mmol/L Normal 3.5-5.1 [facility] Comment on above: Order Comment: No: D o not add to previous draw Performed By: #### 1 0, 28360, 17826 #### [facility] [address] [place] [address], [place] Sodium [Moles/Vol] 139 mmol/L Normal 136-[address] [facility] Comment on above: Order Comment: No: D o not add to previous draw Performed By: #### 1 0, 04671, 06544 #### [facility] [address] [place] [address], [place] Urea nitrogen [Mass/Vol] 19 mg/dL Normal 7-25 The [facility] Comment on above: Order Comment: No: D o not add to previous draw Performed By: #### 1 0070, 88985, 06521 #### [facility] [address] BNP (B-TYPE NATRIURETIC PEPT MARILYN)on 04-10-2021 Natriuretic peptide B (Bld) [Mass/Vol] 259 pg/mL High 0-100 The [facility] Comment on above: Order Comment: No: D o not add to previous draw Result Comment: Give n the appropriate clinical setting a BNP result of >100 pg/mL indicates congestive heart failure. Performed By: #### 5 7307, 38239 #### [facility] [address] CBC W/DIFFon 04-10-2021 ABS IMM GRANS 1.1 10*3/uL High 0.0-0.2 The [facility] Comment on above: Performed By: #### 5 0103 #### [facility] [address] [facility]. [address] ABS NEUTROPHILS 9.6 10*3/uL High 1.6-7.6 The [facility] Comment on above: Performed By: #### 5 0103 #### [facility] [address] [place] [address], [facility] ANISO MODERATE Normal [facility] Comment on above: Performed By: #### 5 0103 #### [facility] [address] [place] [address], [facility] Basophils (Bld) [#/Vol] 0.1 10*3/uL Normal 0.0-0.2 [facility] Comment on above: Performed By: #### 5 0103 #### [facility] [address] [place] [address], [facility] Basophils/100 WBC (Bld) 0.7 % Normal 0.0-1.0 [facility] Comment on above: Performed By: #### 5 0103 #### [facility] [address] [place] [address], [facility] Eosinophils (Bld) [#/Vol] 0.1 10*3/uL Normal 0.0-0.5 [facility] Comment on above: Performed By: #### 5 0103 #### [facility] [address] [place] [address], [facility] Eosinophils/100 WBC (Bld) 0.4 % Normal 0.0-6.0 [facility] Comment on above: Performed By: #### 5 0103 #### [facility] [address] [facility] Erythrocyte distribution width (RBC) [Ratio] 16.5 % High 11.5-15.0 [facility] Comment on above: Performed By: #### 5 0103 #### [facility] [address] Hematocrit (Bld) [Volume fraction] 31.2 % Low 36.0-45.0 [facility] Comment on above: Performed By: #### 5 0103 #### [facility] [address] [facility] [address] Hemoglobin (Bld) [Mass/Vol] 9.0 g/dL Low 12.0-15.0 [facility] Comment on above: Performed By: #### 5 0103 #### [facility] [address] [facility] HYPO SLIGHT Normal [facility] Comment on above: Performed By: #### 5 0103 #### [facility] [address] [place] [address], [facility] IMMATURE GRANS 6.8 % High 0.0-1.0 The [facility] Comment on above: Performed By: #### 5 3 #### [facility] [address] [place] [address], [facility] Lymphocytes (Bld) [#/Vol] 4.4 10*3/uL High 1.2-4.0 [facility] Comment on above: Performed By: #### 5 0103 #### [facility] [address] [place] [address], [facility] Lymphocytes/100 WBC (Bld) 26.4 % Normal 20.0-45.0 [facility] Comment on above: Performed By: #### 5 102 #### [facility] [address] [place] [address], [facility] MCH (RBC) [Entitic mass] 25.3 pg Low 27.0-33.0 [facility] Comment on above: Performed By: #### 102 #### [facility] [address] MCHC (RBC) [Mass/Vol] 28.8 g/dL Low 32.0-35.0 [facility] Comment on above: Performed By: #### 5 102 #### [facility] [address] [place] [address], [facility] MCV (RBC) [Entitic vol] 87.6 fL Normal 82.0-98.0 [facility] Comment on above: Performed By: #### 5 3 #### [facility] [address] [place] [address], [facility] Monocytes (Bld) [#/Vol] 1.3 10*3/uL High 0.1-1.0 [facility] Comment on above: Performed By: #### 5 3 #### [facility] [address] [place] [address], [facility] MONOS 7.6 % Normal 5.0-12.0 [facility] Comment on above: Performed By: #### 5 3 #### [facility] 3000 [place] [address], [facility] Neutrophils/100 WBC (Bld) 58.1 % Normal 40.0-72.0 [facility] Comment on above: Performed By: #### 5 0103 #### [facility] [address] [place] [address], [facility] Nucleated RBC/100 WBC (Bld) [Ratio] 1 % High 0-0 [facility] Comment on above: Performed By: #### 5 0103 #### [facility] [address] [place] [address], [facility] PLAT CNT 483 10*3/uL High 150-400 The [facility] Comment on above: Performed By: #### 5 0103 #### [facility] [address] [place] [address], [facility] POIK SLIGHT Normal [facility] Comment on above: Performed By: #### 5 0103 #### [facility] [address] [place] [address], [facility] POLY SLIGHT Normal [facility] Comment on above: Performed By: #### 5 0103 #### [facility] [address] [facility]. [place] [id number], [facility] RBC (Bld) [#/Vol] 3.56 10*6/uL Low 3.80-5.00 The [facility] Comment on above: Performed By: #### 5 0103 #### [facility] [address] [place] [address], [facility] WBC (Bld) [#/Vol] 16.54 10*3/uL High 4.00-10.60 [facility] Comment on above: Performed By: #### 5 3 #### [facility] [address] [place] [id number], [facility] LIPID PROFILEon 04-10-2021 Cholesterol [Mass/Vol] 161 mg/dL Normal 120-200 [facility] Comment on above: Result Comment: CHOL ESTEROL REFERENCE RANGE: 20 YEARS AND OLDER CARDIOVASCULAR RISK Less than 200 mg/dl Low Risk 200 to 239 mg/dl Borderline Risk 240 mg/dl and greater High Risk Performed By: #### 3 1569, 15414, 11577 #### [facility] [address] [place] [address], [place] Cholesterol in HDL [Mass/Vol] 61 mg/dL Normal 23-92 [facility] Comment on above: Result Comment: Slig ht variation in normal range could be due to gender and/or age. HDL CHOLESTEROL REFERENCE RANGE: 20 years and older Cardiovascular Risk > or =60 mg/dL Desirable 40 TO 59 mg/dL Low Risk <40 mg/dL High Risk Performed By: #### 3 1569, 60337, 68543 #### [facility] [address] [place] [address], [place] Cholesterol in LDL [Mass/Vol] 28 mg/dL Normal 0-130 [facility] Comment on above: Result Comment: LDL IS A CALCULATION LDL IS ONLY VALID IF THE TRIG IS LESS THAN 400. Performed By: #### 3 1569, 06848, 24738 #### [facility] [address] [place] [address], [place] Cholesterol.total/Ch olesterol in HDL [Mass ratio] 2.6 {ratio} Normal .0-4.5 [facility] Comment on above: Performed By: #### 3 1569, 31649, 96868 #### [facility] [address] [place] [address], [place] NON-HDL CHOLESTEROL 100 mg/dL Normal [facility] Comment on above: Performed By: #### 3 1569, 01937, 41179 #### [facility] [address] [place] [address], [place] Triglyceride [Mass/Vol] 362 mg/dL High 40-149 [facility] Comment on above: Result Comment: TRIG LYCERIDE REFERENCE RANGE: 20 YEARS AND OLDER CARDIOVASCULAR RISK LESS THAN 150 mg/dl LOW RISK 150 TO 199 mg/dl BORDERLINE RISK 200 mg/dl AND GREATER HIGH RISK Performed By: #### 3 1569, 63965, 29280 #### [facility] [address] [place] [address], [facility] VLDL CHOL 72 mg/dL High 0-40 [facility] Comment on above: Performed By: #### 3 1569, 28495, 38650 #### [facility] [address] [place] [address], [facility] MAGNESIUM BLOODon 04-10-2021 Magnesium [Mass/Vol] 2.4 mg/dL Normal 1.9-2.7 [facility] Comment on above: Order Comment: No: D o not add to previous draw Performed By: #### 1 0070, 58551, 50744 #### [facility] [address] [place] [address], [facility] POC GLUCOSE LABon 04-10-2021 Glucose [Mass/Vol] 350 mg/dL High 70-[address] [facility] Comment on above: Performed By: #### 5 7307, 56293 #### [facility] [address] [place] [address], [facility] Glucose [Mass/Vol] 249 mg/dL High 70-100 [facility] Comment on above: Performed By: #### 5 7307, 66678 #### [facility] [address] [facility]. [address] PROCALCITONINon 04-10-2021 PROCALCITONIN 0.09 ng/mL Normal 0.00-0.10 [facility] Comment on above: Order Comment: No: [...] initial PCT<0.5ng/mL Performed By: #### 5 7307, 14674 #### [address] PROTHROMBIN TIMEon 1 INR Coag (PPP) [Relative time] 1.07 {INR} Normal 0.91-1.16 [facility] Comment on above: Order Comment: No: [...] CHEST 1995;[id number]. Performed By: #### 5 7307, 25689 #### [facility] [address] [place] [address], [facility] PT Coag (PPP) [Time] 13.9 s Normal 12.3-14.8 [facility] Comment on above: Order Comment: No: D o not add to previous draw Result Comment: ALL RESULTS MUST BE INTERPRETED WITH RESPECT TO BLOOD DRAWING ARTIFACT OR DILUTION ERROR OF ANTICOAGULANT AT THE TIME OF SAMPLING. Performed By: #### 5 7307, 06920 #### [facility] [address] [facility] TROPONIN-Ion 04-10-2021 Troponin I.cardiac [Mass/Vol] 0.07 ng/mL High 0.00-0.04 [facility] Comment on above: Order Comment: No: D o not add to previous draw Result Comment: REFE RENCE RANGES: 0.00 - 0.04 ng/ml NORMAL 0.05 - 0.50 ng/ml INDETERMINATE > 0.50 ng/ml CONSISTENT WITH AN M.I. Performed By: #### 3 1569, 22626, 53150 #### [facility] [address] [place] [address], [facility] Troponin I.cardiac [Mass/Vol] 0.07 ng/mL High 0.00-0.04 [facility] Comment on above: Order Comment: No: D o not add to previous draw Result Comment: REFE RENCE RANGES: 0.00 - 0.04 ng/ml NORMAL 0.05 - 0.50 ng/ml INDETERMINATE > 0.50 ng/ml CONSISTENT WITH AN M.I. Performed By: #### 1 0070, 05594, 03351 #### [facility] [address] [place] [address], [facility] TSH3 WITH REFLEX FT4on 04-10 TSH 3RD GENERATION 0.95 uIU/mL Normal 0.34-5.60 [facility] Comment on above: Order Comment: Yes: Add to Previous draw if able Performed By: #### 3 1569 #### [facility] [address] TSH 3RD GENERATION 3.12 uIU/mL Normal 0.34-5.60 The [facility] Comment on above: Performed By: #### 3 1569, 77471, 80811 #### [facility] [address] UFH HEPARIN ASSAYon 04-10-20 21 UNFRACTIONATED HEPARIN >1.00 Critically high 0.30-0.70 [facility] Comment on above: Result Comment: Resu lt checked and called. Accurately read back by Haven Avila RN at 1122 per RN patient may have previously been given Eliquis. UFH = 1.36 for pharmacy use Rivaroxaban and Apixaban will interfere with the anti Xa assay used to monitor UFH and LMWH. Performed By: #### 5 7307, 20008 #### [facility] [address] Cardiovascular Lab Reporton 01-30-2021 Cardiovascular Lab Report [facility] Patient Name: Antonio [facility] S MR #: [id number] Department of Physician: London Ross M.D. Division of Service Date: 01/30/2021 Cardiology Birthdate: 1970 Adult Cardiovascular Room #: Services [facility] [address] [place] [address] Cardiovascular Laboratory Report FINAL IMPRESSIONS: 1. Moderately [...] 5. Follow up with Cardiology in the [facility] Cardiology office in the next 2 [...] right internal jugular vein was obtained. A 6-Croatian glide sheath was inserted without difficulty. A [...] Bear M.D. Date Trans: 01/30/2021 02:48 P/marixa [id number] cc: Phillip Ann M.D. [address], [facility] [address] [facility] Vital Signs Date Time Vital Sign Value Performing Clinician Iman stafford 04-04-2024 13:58-0400 Blood Pressure Location Juan Miguel NILL [facility] [place] 04-04-2024 13:58-0400 Diastolic blood pressure 76 mm[Hg] Juan Miguel NILL [facility] [place] 04-04-2024 13:58-0400 Heart rate 72 /min Juan Miguel NILL [facility] [place] 04-04-2024 13:58-0400 Respiratory rate 16 /min Juan Miguel NILL [facility] [place] 04-04-2024 13:58-0400 Systolic blood pressure 122 mm[Hg] Juan Miguel NILL [facility] [place] 09-15-2022 15:24-0500 Blood Pressure Location Juan Miguel NILL [facility] [place] 09-15-2022 15:24-0500 Diastolic blood pressure 78 mm[Hg] Juan Miguel NILL [facility] [place] 09-15-2022 15:24-0500 Heart rate 70 /min Juan Miguel NILL [facility] [place] 09-15-2022 15:24-0500 Respiratory rate 16 /min Juan Miguel NILL [facility] [place] 09-15-2022 15:24-0500 Systolic blood pressure 116 mm[Hg] Juan Miguel NILL [facility] [place] Encounters Encounter Date Encounter Type Care Provider Facility Start: 06-09-2024 ambulatory [facility] Start: 05-24-2024 ambulatory [facility] Start: 04-19-2024 End: 04-19-2024 ambulatory Juan Miguel CHAVEZ Facility:[id number] Start: 04-17-2024 ambulatory BESSIE MORRISSEY [facility] Start: 04-13-2024 End: 04-13-2024 ambulatory [facility] Start: 04-13-2024 End: 04-13-2024 Encounter for other preprocedural examination [facility] Start: 04-04-2024 End: 04-04-2024 ambulatory Juan Miguel R NILL Facility: [place] Start: 04-04-2024 End: 04-04-2024 Patient encounter procedure Juan Miguel R NILL Emilia [facility] [place] Start: 01-11-2024 ambulatory [facility] Start: 12-28-2023 ambulatory [facility] Start: 10-26-2023 End: 10-26-2023 ambulatory [facility] Start: 11-17-2022 End: 11-17-2022 ambulatory EMILY ZHONG . Facility:[facility] Start: 10-28-2022 End: 10-28-[address] PHILLIP ANN . Facility:[facility] Start: 09-24-2022 End: 09-24-[address] PHILLIP ANN . Facility:[facility] Start: 09-15-2022 End: 09-15-2022 Patient encounter procedure Juan Miguel Ortiz DAYOL [facility] Nill/Said [place] Start: 09-09-2022 End: 09-10-[address] PHILLIP [...] and management of inpatient PHILLIP ANN Facility:[facility] Start: 01-30-2021 End: 01-31-2021 ambulatory ADAMAB Richie BEAR Facility:[facility] Procedures Date Procedure Procedure Detail [...] unspecified formulation Juan Miguel CHAVEZ [facility] [place] 10-29-2020 SARS-CoV-2 (COVID-19 ) mRNA-1273 vaccine Juan Miguel CHAVEZ [facility] [place] 10-25-2020 SARS-CoV-2 (COVID-19 ) mRNA BNT-162b2 vax Juan Miguel CHAVEZ [facility] [place] Comment on above: Result Comment: 2022: [id number] 10-24-2020 SARS-CoV-2 (COVID-19 ) mRNA BNT-162b2 vax Juan Miguel NILL [facility] 10-04-2020 SARS-CoV-2 (COVID-19 ) mRNA BNT-162b2 vax Juan Miguel NILL [facility] [place] Comment on above: Result Comment: 2022: TPV50 10-03-2020 SARS-CoV-2 (COVID-19 ) mRNA BNT-162b2 vax Juan Miguel NILL [facility] Payers Date Payer Category Payer Unknown [id number] 1970 Unknown [id number] 2.16.8 [id number] 1970 Unknown [id number] 2.16.8 40.1.203494.3.579.2.647 1970 Unknown [id number] 2.16.84 0.1.839637.3.579.2.593 1970 Unknown [id number] 2.16.84 0.1.598638.3.579.2.593 1970 Unknown [id number] 2.16.84 0.1.427202.3.579.2.593 1970 Unknown [id number] 2.16.84 0.1.251748.3.579.2.593 1970 Unknown [id number] 2.16.84 0.1.833200.3.579.2.593 1970 Unknown [id number] 2.16.84 0.1.430699.3.579.2.593 1970 Unknown [id number] 2.16.84 0.1.749405.3.579.2.593 1970 Unknown [id number] 2.16.84 0.1.978537.3.579.2.593 1970 Unknown [id number] 2.16.84 0.1.381426.3.579.2.593 1970 Unknown [id number] 2.16.84 0.1.224645.3.579.2.593 1970 Unknown [id number] 2.16.84 0.1.044593.3.579.2.593 1968 Unknown [id number] 2.16.84 0.1.971049.3.579.2.593 1968 Unknown [id number] 2.16.84 0.1.565638.3.579.2.593 1970 Unknown [id number] 2.16.8 40.1.122878.3.579.2.727 1970 Unknown [id number] 2.16.8 40.1.796872.3.579.2.727 1961 Unknown [id number] 1961 Unknown [id number] 1961 Unknown [id number] 1961 Unknown [id number] Social History Date Type Detail Facility Start: 09-15-2022 End: 04-04-2024 Tobacco smoking status Ex-smoker (finding) [facility] Tobacco smoking status Never [facility] [place] Sex Assigned At Female [facility] Medical Equipment Procedure Code Equipment Code Equipment Origin al Text Equipment Identifier Dates lancets, glucome ter, alcohol swabs, testing strips, insulin pen needles, Print Requisition, Supply Start: 08-25-2021 lancets, glucome ter, alcohol swabs, testing strips, insulin pen needles, Print Requisition, Supply Start: 08-25-2021 Functional Status Date Assessment Result Facility 04-04-2024 Functional Status N/A [facility] 09-15-2022 Functional Status N/A [facility] Progress note 04-13-2024 Note Date & Type [...] All other systems reviewed and are negative. [facility] Progress note 04-13-2024 Note Date & Type Note Facility 04-13-2024 Note Cardiovascular Medic [facility] [...] upwards is a since seen in [place] [facility] 04/28/2023 and was diagnosed with vertigo [...] disease (CMS/HCC) C (more content not included)... [facility] Clinical Note 04-04-2024 Note Date & [...] Diabetes Diverticulosis Ep (more content not included)... [facility] Comment on above: Result Comment: Elec tronically Signed By: BRAD DIAZ, Juan Miguel Rivera\Date and Time Signed: 04/04/24 17:16 EDT Progress note 10-26-2023 Note Date & Type Note Facility 10-26-2023 Note Cardiovascular Medic in[facility] [place] [facility] SUBJECTIVE Chief Complaint Patient presents with [...] upwards is a since seen in [place] [facility] 04/28/2023 and was diagnosed with vertigo [...] (paroxysmal atrial fi (more content not included)... [facility] Progress note 10-26-2023 Note Date [...] All other systems reviewed and are negative. [facility] Clinical Note 11-17-2022 Note Date & [...] BO Date: 2022-11-17 12:[address] [facility] Discharge summary note 04-12-2021 Note Date & Type Note Facility 04-12-2021 Note MR#: [id number] I [facility] Pt. Name: Diana Alvarez Admitted: 04/10/2021 Discharged: 04/11/2021 Date of : 1970 Physician: Orlin Wick MD DISCHARGE SUMMARY PRIMARY DIAGNOSIS: New-onset atrial flutter with RVR. SECONDARY DIAGNOSES: 1. Pulmonary hypertension. 2. COPD. 3. Diabetes. HISTORY OF PRESENT ILLNESS: This patient is a 50-year-old female with past medical history of COPD, hypertension, and diabetes, who was sent from [facility] due to atrial flutter with RVR due to COPD exacerbation. The patient was initially treated with IV Cardizem, however, it was changed to p.o. prior to transfer. The patient was also given loading dose digoxin. The patient was transferred to [facility] for cardioversion. HOSPITAL COURSE: 1. [...] Wick MD Date Trans: 04/12/2021 03:25 P/marixa [id number] cc: Phillip Ann M.D. [address] [address] [facility] Evaluation + Plan note Note Date & Type Note Facility Evaluation + Plan note No data available for this section [facility] Discharge instructions Note Date & Type Note Facility Hospital Discharge instructions No data available for this section [facility] [place] Progress note Note Date & Type Note Facility Progress note No data available for this section [facility] [place] Summary Purpose Family History No Family History [...] and content) DATE CREATED AUTHOR 09/10/2021 [facility] DATE CREATED AUTHOR AUTHOR'S ORGANIZ ATION 12/24/2021 [facility] DATE CREATED AUTHOR AUTHOR'S ORGANIZ ATION 11/20/2022 [facility] DATE CREATED AUTHOR AUTHOR'S ORGANIZ ATION 05/01/2024 [facility] DATE CREATED AUTHOR AUTHOR'S ORGANIZ ATION 06/12/2024 [facility] Patient Care team informatio n (unrecognized section and content) Personnel Name: Phillip Ann MD Address: Address: [address] [place] [address] Personnel Name: Phillip Ann MD Address: Address: [address] [place] [address] FOR RECORDS PERTAINING TO PATIENTS WHO ARE [...] BE BASED ON THE PRIMARY CLINICAL RECORDS. [facility] qualifyor [facility]. provides no warranty or guarantee of the accuracy or completeness of information in this document.
--- NOTE | 2024-08-31 22:10 | PC.NURSE ---
this patient complains of right great toe pain onset 1 day ago. this denies any recent falls, injury or trauma to cause this pain. this patient did add that the last this pain occurred she had gout flare up
--- NOTE | 2024-08-31 22:26 | ED.EXTPRO1 ---
HPI - Extremity Problem General Chief complaint: Extremity Problem, Nontraumatic Stated complaint: INFLAMED R FOOT Time Seen by Provider: 08/31/24 21:45 Source: patient Mode of arrival: walk-in Limitations: no limitations History of Present Illness HPI Narrative: This 53-year-old female with a history of gout and type 2 diabetes presents for evaluation of swollen, red, exquisitely painful right foot specifically the right first metatarsal. 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 She also is very sensitive to the cold. She states she started having some aching in the right foot yesterday and today it became extremely tender and painful. She denies any fevers or chills. She denies any injury to the extremity. Related Data Home Medications ?Medication ?Instructions ?Recorded ?Confirmed albuterol sulfate 90 mcg/actuation 2 puff inhalation Q4H PRN wheezing 04/18/23 04/19/24 aerosol inhaler (Ventolin HFA) apixaban 5 mg tablet (Eliquis) 5 mg PO BID 04/18/23 04/19/24 diltiazem HCl 240 mg 240 mg PO Q24H 04/18/23 04/19/24 capsule,extended release 24 hr ezetimibe 10 mg tablet 10 mg PO DAILY 04/18/23 04/19/24 ferrous sulfate 325 mg (65 mg 325 mg PO BID 04/18/23 04/19/24 iron) tablet furosemide 40 mg tablet 40 mg PO DAILY 04/18/23 04/19/24 isosorbide mononitrate 30 mg 30 mg PO DAILY 04/18/23 04/19/24 tablet,extended release 24 hr metformin 500 mg tablet 500 mg PO DAILY 04/18/23 04/19/24 pantoprazole 40 mg tablet,delayed 40 mg PO DAILY 04/18/23 04/19/24 release potassium chloride 20 mEq 20 meq PO BID 04/18/23 04/19/24 tablet,extended release rosuvastatin 5 mg tablet 5 mg PO DAILY 04/18/23 04/19/24 metoprolol succinate 25 mg 50 mg PO DAILY 04/28/23 04/19/24 tablet,extended release 24 hr cholecalciferol (vitamin D3) 50 50 mcg PO DAILY 11/18/23 04/19/24 mcg (2,000 unit) capsule lisinopril 5 mg tablet 5 mg PO DAILY 01/28/24 04/19/24 allopurinol 100 mg tablet 100 mg PO DAILY 04/05/24 04/19/24 ropinirole 0.5 mg tablet 0.5 mg PO DAILY 04/05/24 04/19/24 colchicine 0.6 mg tablet 0.6 mg PO DAILY PRN gout 04/13/24 04/19/24 semaglutide 2 mg/dose (8 mg/3 mL) 2 mg subcut DAILY 04/13/24 04/19/24 subcutaneous pen injector (Ozempic) Previous Rx's ?Medication ?Instructions ?Recorded acetaminophen 325 mg capsule 650 mg (2 x 325 mg) PO .q8 PRN 04/18/23 (Tylenol) pain #20 caps ondansetron 4 mg disintegrating 4 mg PO Q6H PRN nausea and 11/19/23 tablet vomiting #20 tabs hyoscyamine sulfate 0.125 mg 0.125 mg PO Q6H PRN abdominal pain 11/23/23 tablet (Levsin) #12 tabs azithromycin 250 mg tablet See Rx Instructions PO .COMPLEX #6 06/24/24 (Zithromax Z-Derek) tabs benzonatate 100 mg capsule 100 mg PO TID PRN cough #20 caps 06/24/24 lrrwtirazo-viksatedkoglg-amfbucgw 1 cap PO Q6H PRN pain 5 days #20 06/24/24 50 mg-300 mg-40 mg capsule caps (Fioricet) ondansetron 4 mg disintegrating 4 mg PO Q8H PRN nausea and 08/13/24 tablet vomiting 48 hours #7 tabs Allergies Allergy/AdvReac Type Severity Reaction Status Date / Time morphine Allergy Intermediate Palpitation Verified 08/31/24 21:50 s Review of Systems ROS Status of ROS 10 or more systems reviewed and unremarkable except as noted in history and below [facility] Medical History (Updated 08/31/24 @ 22:24 by Merle Nielson MD) Pulmonary hypertension ?I27.20 - Pulmonary hypertension, unspecified (ICD-10) Pericardial effusion ?I31.39 - Other pericardial effusion (noninflammatory) (ICD-10) Paroxysmal atrial fibrillation ?I48.0 - Paroxysmal atrial fibrillation (ICD-10) Nausea ?R11.0 - Nausea (ICD-10) Mild aortic stenosis ?I35.0 - Nonrheumatic aortic (valve) stenosis (ICD-10) Insomnia ?G47.00 - Insomnia, unspecified (ICD-10) Irritable bowel syndrome ?K58.9 - Irritable bowel syndrome without diarrhea (ICD-10) Hypertriglyceridemia ?E78.1 - Pure hyperglyceridemia (ICD-10) Hypercholesterolemia ?E78.00 - Pure hypercholesterolemia, unspecified (ICD-10) Hypertension ?I10 - Essential (primary) hypertension (ICD-10) Fibrocystic breast disease ?N60.19 - Diffuse cystic mastopathy of unspecified breast (ICD-10) Epigastric pain ?R10.13 - Epigastric pain (ICD-10) Diverticulosis ?K57.90 - Diverticulosis of intestine, part unspecified, without perforation or abscess without bleeding (ICD-10) Cystic kidney disease ?Q61.9 - Cystic kidney disease, unspecified (ICD-10) Chronic diastolic heart failure ?I50.32 - Chronic diastolic (congestive) heart failure (ICD-10) Cholelithiasis ?K80.20 - Calculus of gallbladder without cholecystitis without obstruction (ICD-10) Cervical disc disease ?M50.90 - Cervical disc disorder, unspecified, unspecified cervical region (ICD-10) Abdominal pain ?R10.9 - Unspecified abdominal pain (ICD-10) Abdominal bloating ?R14.0 - Abdominal distension (gaseous) (ICD-10) Back pain ?M54.9 - Dorsalgia, unspecified (ICD-10) Arthritis ?M19.90 - Unspecified osteoarthritis, unspecified site (ICD-10) Anemia ?D64.9 - Anemia, unspecified (ICD-10) Depression ?F32.A - Depression, unspecified (ICD-10) Panic attacks ?F41.0 - Panic disorder [episodic paroxysmal anxiety] (ICD-10) RUQ pain ?R10.11 - Right upper quadrant pain (ICD-10) Sleep apnea ?G47.30 - Sleep apnea, unspecified (ICD-10) Chronic obstructive pulmonary disease ?J44.9 - Chronic obstructive pulmonary disease, unspecified (ICD-10) Asthma ?J45.909 - Unspecified asthma, uncomplicated (ICD-10) COVID-19 ?U07.1 - COVID-19 (ICD-10) Positive colorectal cancer screening using Cologuard test ?R19.5 - Other fecal abnormalities (ICD-10) Dyspnea on exertion ?R06.09 - Other forms of dyspnea (ICD-10) Extremity edema ?R60.0 - Localized edema (ICD-10) Congestive heart failure (CHF) ?I50.9 - Heart failure, unspecified (ICD-10) Pericarditis ?I31.9 - Disease of pericardium, unspecified (ICD-10) Atrial flutter ?I48.92 - Unspecified atrial flutter (ICD-10) Atrial fibrillation ?I48.91 - Unspecified atrial fibrillation (ICD-10) Diabetes ?E11.9 - Type 2 diabetes mellitus without complications (ICD-10) Gout ?M10.9 - Gout, unspecified (ICD-10) Nasal congestion ?R09.81 - Nasal congestion (ICD-10) Breast cyst ?N60.09 - Solitary cyst of unspecified breast (ICD-10) Implantable loop recorder present ?Z95.818 - Presence of other cardiac implants and grafts (ICD-10) Surgical History (Updated 04/13/24 @ 09:03 by Martina Muñiz NP) H/O removal of cyst ?Z98.890 - Other specified postprocedural states (ICD-10) History of colonoscopy ?Z98.890 - Other specified postprocedural states (ICD-10) History of tubal ligation ?Z98.51 - Tubal ligation status (ICD-10) History of cardiac radiofrequency ablation ?Z98.890 - Other specified postprocedural states (ICD-10) History of section ?Z98.891 - History of uterine scar from previous surgery (ICD-10) Family History (Updated 04/13/24 @ 08:57 by Martina Muñiz NP) Other Family history of breast cancer Family history of diabetes mellitus Family history of heart disease Family history of hypertension Family history of myocardial infarction Family history of renal failure Family history of stroke Social History (Updated 04/13/24 @ 08:47 by Martina Muñiz NP) Within the past year, how often did you have a drink containing alcohol: monthly or less Smoking status: Former smoker Non-prescribed substance use: denies use 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, 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 Highest level of school completed/degree received: high school graduate Little interest or pleasure in doing things: not at all Feeling down, depressed, or hopeless: not at all Exam Narrative Exam Narrative: Vital signs and Nursing Notes reviewed: Patient is afebrile with a normal pulse, normal blood pressure, she is not hypoxic with pulse ox of 97% on room air General: Awake, alert, oriented, no acute distress, lying comfortably on the stretcher HEENT: Normocephalic atraumatic, mucous membranes are moist and pink, eyes are clear, normal conjunctiva, vision is grossly intact Chest: Lungs are clear to auscultation with good air entry, there is no wheezing rhonchi or rales appreciated no accessory muscle use, patient is speaking in complete sentences-no chest wall tenderness to palpation CVS: Regular rate and rhythm S1-S2, no murmurs rubs or gallops, pulses are brisk and equal bilaterally Extremities: There is a bunion on the first metatarsal on the right foot. The right first metatarsal is markedly tender and erythematous. There is no sign of any skin breakdown or diabetic foot ulcer. Foot is warm and sensate. Capillary refill is less than 2 seconds. Quintero pedis and posterior tibialis pulses are brisk and equal. Skin: Normal in appearance without rash,pallor, petechiae or purpura Neuro: No focal deficits Constitutional Vital Signs, click to edit/add: Last Vital Signs Pulse 74 08/31/24 21:46 Resp 18 08/31/24 21:46 BP 115/67 08/31/24 21:46 Pulse Ox 97 08/31/24 21:46 O2 Del Method Room Air 08/31/24 21:46 Course Vital Signs Vital signs: Vital Signs Pulse Rate 74 08/31/24 21:46 Respiratory Rate 18 08/31/24 21:46 Blood Pressure 115/67 08/31/24 21:46 Pulse Oximetry 97 08/31/24 21:46 Oxygen Delivery Method Room Air 08/31/24 21:46 Pulse Rate 74 08/31/24 21:46 Respiratory Rate 18 08/31/24 21:46 Blood Pressure 115/67 08/31/24 21:46 Pulse Oximetry 97 08/31/24 21:46 Oxygen Delivery Method Room Air 08/31/24 21:46 MDM - Extremity (Nontraumatic) MDM Narrative Medical decision making narrative: This 53-year-old female presents for evaluation of severe pain in the right first metatarsal. She has a history of gout. 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 She also states that she gets gouty flares sometimes when it is cold. She denies that she has been eating a lot of meat or drinking beer. She does not have any additional complaints. She is a type II diabetic and is on Ozempic. Her right first metatarsal is inflamed, tender and the findings are consistent with acute gouty flare. She was medicated with dose of prednisone in the emergency department and a Bronson with Zofran. She will be discharged home with the same. Prior to being discharged her foot was wrapped in a soft wrap and she was placed in a postop shoe for comfort and ambulation as she states her foot is too painful to put into her shoe. I do not see any sign of a diabetic foot ulcer. Her foot is warm and sensate. Pulses are brisk and equal. Discharge Plan Discharge Chief Complaint: Extremity Problem, Nontraumatic Clinical Impression: Acute gouty arthritis Patient Disposition: Home, Self-Care Time of Disposition Decision: 22:23 Condition: Good Prescriptions / Home Meds: No Action albuterol sulfate [Ventolin HFA] 90 mcg/actuation HFA aerosol inhaler 2 puff INHALATION Q4H PRN (Reason: wheezing) Eliquis 5 mg tablet 5 mg PO BID diltiazem HCl 240 mg capsule,extended release 24hr 240 mg PO Q24H ezetimibe 10 mg tablet 10 mg PO DAILY ferrous sulfate 325 mg (65 mg iron) tablet 325 mg PO BID furosemide 40 mg tablet 40 mg PO DAILY isosorbide mononitrate 30 mg tablet extended release 24 hr 30 mg PO DAILY metformin 500 mg tablet 500 mg PO DAILY pantoprazole 40 mg tablet,delayed release (DR/EC) 40 mg PO DAILY potassium chloride 20 mEq tablet extended release 20 meq PO BID rosuvastatin 5 mg tablet 5 mg PO DAILY acetaminophen [Tylenol] 325 mg capsule 650 mg PO .q8 PRN (Reason: pain) Qty: 20 0RF metoprolol succinate 25 mg tablet extended release 24 hr 50 mg PO DAILY lisinopril 5 mg tablet 5 mg PO DAILY ondansetron 4 mg tablet,disintegrating 4 mg PO Q8H PRN (Reason: nausea and vomiting) 2 Days Qty: 7 0RF cholecalciferol (vitamin D3) 50 mcg (2,000 unit) capsule 50 mcg PO DAILY ondansetron 4 mg tablet,disintegrating 4 mg PO Q6H PRN (Reason: nausea and vomiting) Qty: 20 0RF hyoscyamine sulfate [Levsin] 0.125 mg tablet 0.125 mg PO Q6H PRN (Reason: abdominal pain) Qty: 12 0RF Ozempic 2 mg/dose (8 mg/3 mL) pen injector 2 mg SUBCUT DAILY colchicine 0.6 mg tablet 0.6 mg PO DAILY PRN (Reason: gout) ropinirole 0.5 mg tablet 0.5 mg PO DAILY allopurinol 100 mg tablet 100 mg PO DAILY benzonatate 100 mg capsule 100 mg PO TID PRN (Reason: cough) Qty: 20 0RF nanbuunlil-iarbjekocmkfk-yukj [Fioricet] 50-300-40 mg capsule 1 cap PO Q6H PRN (Reason: pain) 5 Days Qty: 20 0RF azithromycin [Zithromax Z-Derek] 250 mg tablet See Rx Instructions .ROUTE .COMPLEX Qty: 6 0RF Rx Instructions: For 250 mg dose pack: take 500 mg today (day 1), then 250 mg for 4 days (days 2-5) Print Language: Macedonian Instructions: Low Purine Diet (ED), Gout (ED) Referrals: Xavi Ann MD [Primary Care Provider] - 1 week
[2024-08-31] MEDS: PREDNISONE 20 MG TABLET PO (22:37)
[2024-08-31] MEDS: HYDROCODONE/ACET 5-325 MG TABLET 1 TAB PO (22:37)
[2024-08-31] MEDS: ONDANSETRON 4 MG RAPDIS TABLET SL (22:37)
[2024-08-31] MEDS: HYDROCODONE/ACET 5-325 MG TABLET 2 TAB PO (22:48)
--- NOTE | 2024-08-31 22:52 | PC.NURSE ---
i gave this patient verbal and written discharge orders along with 3 Rx, and take medication, this patient voices yes to understanding these. at time of discharge this patient voices no concerns and shows no signs of distress. I informedthis patient when taking these pain medication no operating automobile, machinery and no working.
== END 2024-08-31 22:55 | disposition home or self-care (01) ==
PROVIDERS: Emergency Provider Emergency Medicine; PCP Family Medicine
DX: M10.9 Gout, unspecified (principal); E11.9 Type 2 diabetes mellitus without complications; Z79.85 Long-term (current) use of injectable non-insulin antidiabetic drugs; Z79.84 Long term (current) use of oral hypoglycemic drugs; Z98.51 Tubal ligation status; Z87.891 Personal history of nicotine dependence; M21.611 Bunion of right foot
CPT/HCPCS: 99284; J7512; Q0162

== ENCOUNTER 2024-09-14 15:31 | Outpatient (OUT) | payer OTHER, SELFPAY ==
--- NOTE | 2024-09-14 15:41 | XR_ITS ---
[facility] [place] [id number] Patient Name: LEIGHANN TALAMANTES MRN: [id number] date: 1970 Sex: F Assigned Patient Location: [facility] Current Patient Location: [facility] Accession/Order Number: [id number] Exam Date: 09/14/2024 16:09 Report Date: 09/14/2024 16:11 At the request of: PHILLIP BURKETT MD Procedure: XR chest 2V XR chest 2V 09/14/2024 4:02 PM SIGNS AND SYMPTOMS: ^Marker Over Lump ^Chest Wall Pain PROTOCOL: Frontal and lateral radiographs of the chest COMPARISON: 08/13/2024 FINDINGS: The trachea is midline. Atherosclerotic changes are noted in the thoracic aorta. The heart and mediastinal structures are within normal limits. The lung parenchyma is clear. The bony thorax is intact. A marker is present over the anterior chest wall the midline overlying the lower leg. The xiphoid process. This is a normal variant. Degenerative changes are noted in the thoracic spine. XR/XR chest 2V IMPRESSION: No acute cardiopulmonary pathology. A marker is present over the anterior chest wall the midline overlying the lower leg. The xiphoid process. This is a normal variant. Impression dictated by: Arturo Rodriguez M.D.09/14/2024 4:11 PM Dictation Location: [place] [address] Electronically authenticated by: [id number] Y Date: 09/14/2024 16:11
--- OUTSIDE RECORDS SUMMARY | 2024-09-14 15:43 | XMS_ITS | CCD ---
Author Organization [facility] Care Team Providers Care Post Office Manager Name Role Phone CASSY BEAR A Admitting Unavailable CASSY BEAR Attending Unavailable PHILLIP ANN Referring Unavailable PHILLIP ANN Primary Care Unavailable PHILLIP ANN Referring Unavailable XIAO TORRES Surgeon Unavailable ALBERT HUI Attending Unavailable CALLI PAIGE Admitting Unavailable [facility] Procedure Practitioner Unavailab PHILLIP Muñoz Primary Care Unavailable [place] Procedure Practitioner Unavailab Dunia Light Surgeon Unavailsindhu e Phillip Ann Primary Care Physician [phone] [address] ., DR FISHER Primary Care Unavailable [...] ., FABRICIO Consulting Unavailable HOY ., DR FSIHER Primary Care Unavailable PAY ., DR SOTO [...] Consulting Unavailable Juan Miguel CHAVEZ Attending Unavailable Juan Miguel CHAVEZ Attending Unavailable MANOJ, CURTIS Referring Unavailable GHANSHYAM, BESSIE Referring Unavailable MANOJ, CURTIS Referring Unavailable MANOJ, CURTIS Referring Unavailable MANOJ, CURTIS Referring Unavailable MANOJ, CURTIS Referring Unavailable MANOJ, CURTIS Referring Unavailable MANOJ, CURTIS Referring Unavailable MANOJ, CURTIS Referring Unavailable MANOJ, CURTIS Referring Unavailable MANOJ, CURTIS Referring Unavailable MANOJ, CURTIS Referring Unavailable MANOJ, CURTIS Referring Unavailable JENNA PHILLIPS Attending Unavailable MANOJ, CURTIS Attending Unavailable SANTIAGOJENNA WEISS Attending Unavailable Allergies Allergy Classification Reported Allergen(s) Allergy Type Date of Onset Reaction(s) Facility (4 sources) Morphine; Translations: [morphine] Drug Allergy 9 [facility] Repository (1 source) 45146,00; Translations: [19706,00] Propensity to adverse reactions (disorder) 0 [facility] Repository (2 sources) Morphine; Translations: [morphine] Drug Allergy Feeling nervous (finding), Tachycardia (finding) General Surgery Neda (1 source) No Known Medication Allergies; Translations: [No Known Medication Allergies] Propensity to adverse reactions (disorder) [facility] Repository (1 source) dulaglutide; Translations: [DULAGLUTIDE] Drug Allergy [facility] Repository Medications Current Medications Medication Drug Class(es) Dates Sig (Normalized) Sig (Original) 3 ML semaglutide 2.68 MG/ML Pen Injector [Ozempic] (1 source) Start: 03-16-2024 inject 2 mg by subcutaneous injection every week Ozempic 8 mg/3 mL (2 mg dose) subcutaneous solution 2 mg, SubCutaneous, qWeek, Refills(s) 0 Start Date: 03/16/24 Status: Ordered [id number] 200 actuat albuterol 0.09 mg/actuat metered dose [...] disease (1 source) Atherosclerotic heart disease of [place] coronary artery without angina pectoris; Translations: [ASHD COMANCHE CA W/O ANGINA PECTORIS] Onset: 08-11-2022 Chronic [...] Onset: 09-13-2022 Chronic Other aftercare (1 source) FPC (current) use of anticoagulants; Translations: [MEMORY CARE DIRECTOR CURRNT USE ANTICOAGULANTS] Onset: 11-19-2022 Episodic Other aftercare (1 source) 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; Translations: [OTH MEMORY CARE DIRECTOR CURRENT DRUG THERAPY] Onset: 11-19-2022 Episodic Other aftercare (1 source) 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; [...] Test Name Value Interpretation Reference Range Facility Follow-Upon 09-12-2024 Follow-Up [id number] Diana Alvarez 1970 F Date Provider Department Center 09/12/2024 CURTIS VALDES TISH [facility] Family History Problem Relation Age of Onset Breast cancer Mother Aneurysm Mother Stroke Mother Heart attack Father Coronary artery disease Father Family Status - Relation Status Age at Mother Father Level of Service:59748 [place] OFFICE/OUTPATIENT ESTABLISHED LOW MDM 20 MIN Normal [facility] Reminderson 04-20-2024 Reminders Reminders - From: Jacqueline Huerta LPN To: N - Clinical; Sent: 04/20/2024 11:34:18 EDT Show up: 03/20/2034 07:00:00 EDT Subject: colonoscopy recall Due Date/Time: 04/19/2034 07:00:00 EDT Reminder/Recall Patient due for screening colonoscopy 04/19/2034. Normal [facility] Office Visiton 04-13-2024 Follow-up visit [id number] Diana Alvarez 1970 F Date Provider Department Center 04/13/2024 JENNA ABREU TISH [facility] Family History Problem Relation Age of Onset Breast cancer Mother Aneurysm Mother Stroke Mother Heart attack Father Coronary artery disease Father Family Status - Relation Status Age at Mother Father Level of Service:89016 [place] OFFICE/OUTPATIENT ESTABLISHED MOD MDM 30 MIN Reason for Visit and Comments: Pre-op Exam [242275] Atrial Fibrillation [80] Hypertension [729803] Normal [facility] Ambulatory Visit Summaryon 0 04-04-2024 Ambulatory Visit Summary Ambulatory Visit Summary ANTONIO DIANA S :1970 Visit Date:04/04/2024 Ambulatory Visit Instructions Your [...] (Nervousness, Tachycardia) Problems (more content not included)... [facility] 36on 01-12-2024 36 BP is elevated. I encourage diet and routine exercise which can help her BP. In the mean time, would like to start her on lisinopril 5mg daily with follow-up BMP in 2 weeks. Thanks! [facility] 01-11-2024 36 Pt calling with bp's 156/83 133/78 147/80 146/78 157/72 148/80 120/80 [facility] 3612-23-2023 36 Regarding echo performed on 12/20/2023: NILDA [...] few weeks with readings. She verbalized understanding. [facility] Telephoneon 12-23-2023 Telephone [id number] Diana Alvarez 1970 F Date Provider Department Center 12/23/2023 MIGUEL ROMANO TISH [facility] Family History Problem Relation Age of Onset Breast cancer Mother Aneurysm Mother Stroke Mother Heart attack Father Coronary artery disease Father Family Status - Relation Status Age at Mother Father [facility] 3611-10-2023 36 Call reference # [id number]. - Approval # [id number] approved from 11/05/23 - 01/04/24. [facility] Office Visiton 10-26-2023 Follow-up visit [id number] Diana Alvarez 1970 F Date Provider Department Center 10/26/2023 JENNA ABREU CARD [facility] Family History Problem Relation Age of Onset Breast cancer Mother Aneurysm Mother Stroke Mother Heart attack Father Coronary artery disease Father Family Status - Relation Status Age at Mother Father Level of Service:30942 [place] OFFICE/OUTPATIENT ESTABLISHED MOD MDM 30 MIN Reason for Visit and Comments: Atrial Flutter [101] Congestive Heart Failure [127] Normal [facility] CBC AUTO DIFFon 10-28-2022 BASO # 0.0 103/ul Normal 0.0-0.1 [facility] Comment on above: Performed By: #### L IPID, CMP, T4, TSH, FT3 #### [facility] [address] [place] [address] Dr. Mendel Herron Basophils/100 WBC (Bld) 0.2 % Normal 0.2-2.0 [facility] Comment on above: Performed By: #### L IPID, CMP, T4, TSH, FT3 #### [facility] [address] [place] [address] Dr. Mendel Herron EO # 0.0 103/ul Normal 0.0-0.7 [facility] Comment on above: Performed By: #### L IPID, CMP, T4, TSH, FT3 #### [facility] [address] [place] [address] Dr. Mendel Herron Eosinophils/100 WBC (Bld) 0.3 % Critically low 0.9-7.0 [facility] Comment on above: Performed By: #### L IPID, CMP, T4, TSH, FT3 #### [facility] [address] [place] [address] Dr. Mendel Herron Erythrocyte distribution width (RBC) [Ratio] 13.6 % Normal 11.0-15.0 [facility] Comment on above: Performed By: #### L IPID, CMP, T4, TSH, FT3 #### [facility] [address] [place] [address] Dr. Mendel Herron Hematocrit (Bld) [Volume fraction] 40.1 % Normal 36.0-48.0 [facility] Comment on above: Performed By: #### L IPID, CMP, T4, TSH, FT3 #### [facility] [address] [place] [address] Dr. Mendel Herron Hemoglobin (Bld) [Mass/Vol] 13.0 g/dL Normal 12.0-16.0 [facility] Comment on above: Performed By: #### L IPID, CMP, T4, TSH, FT3 #### [facility] [address] [place] [address] Dr. Mendel Herron IG # 0.06 10e3/ul Critically high 0.00-0.03 [facility] Comment on above: Performed By: #### L IPID, CMP, T4, TSH, FT3 #### [facility] [address] [place] [address] Dr. Mendel Herron IG % 0.5 % Normal 0.0-0.5 [facility] Comment on above: Performed By: #### L IPID, CMP, T4, TSH, FT3 #### [facility] [address] [place] [address] Dr. Mendel Herron LYMPH # 2.8 103/ul Normal 1.2-3.8 [facility] Comment on above: Performed By: #### L IPID, CMP, T4, TSH, FT3 #### [facility] [address] [place] [address] Dr. Mendel Herron Lymphocytes/100 WBC (Bld) 22.4 % Normal 20.5-60.0 [facility] Comment on above: Performed By: #### L IPID, CMP, T4, TSH, FT3 #### [facility] [address] [place] [address] Dr. Mendel Herron MANUAL DIFF REQ NO Normal [facility] Comment on above: Performed By: #### L IPID, CMP, T4, TSH, FT3 #### [facility] [address] [place] [address] Dr. Mendel Herron MCH (RBC) [Entitic mass] 30.8 pg Normal 26.7-34.0 [facility] Comment on above: Performed By: #### L IPID, CMP, T4, TSH, FT3 #### [facility] [address] [place] [address] Dr. Mendel Herron MCHC (RBC) [Mass/Vol] 32.4 g/dL Normal 29.9-35.2 [facility] Comment on above: Performed By: #### L IPID, CMP, T4, TSH, FT3 #### [facility] [address] [place] [address] Dr. Mendel Herron MCV (RBC) [Entitic vol] 95.0 fL Normal 81.0-99.0 [facility] Comment on above: Performed By: #### L IPID, CMP, T4, TSH, FT3 #### [facility] [address] [place] [address] Dr. Mendel Herron MONO # 0.9 103/ul Critically high 0.3-0.8 [facility] Comment on above: Performed By: #### L IPID, CMP, T4, TSH, FT3 #### [facility] [address] [place] [address] Dr. Mendel Herron Monocytes/100 WBC (Bld) 7.2 % Normal 1.7-12.0 [facility] Comment on above: Performed By: #### L IPID, CMP, T4, TSH, FT3 #### [facility] [address] [place] [address] Dr. Mendel Herron NEUT # 8.6 103/ul Critically high 1.4-6.5 [facility] Comment on above: Performed By: #### L IPID, CMP, T4, TSH, FT3 #### [facility] [address] [place] [address] Dr. Mendel Herron Neutrophils/100 WBC (Bld) 69.4 % Normal 43.0-75.0 [facility] Comment on above: Performed By: #### L IPID, CMP, T4, TSH, FT3 #### [facility] [address] [place] [address] Dr. Mendel Herron Platelet mean volume (Bld) [Entitic vol] 9.9 fL Normal 9.5-13.5 [facility] Comment on above: Performed By: #### L IPID, CMP, T4, TSH, FT3 #### [facility] [address] [address] [address] Mendel Herron PLT 297 103/ul Normal 150-450 [facility] Comment on above: Performed By: #### L IPID, CMP, T4, TSH, FT3 #### [facility] [address] [address] [address] Mendel Herron RBC 4.22 106/ul Normal 4.20-5.40 [facility] Comment on above: Performed By: #### L IPID, CMP, T4, TSH, FT3 #### [facility] [address] [address] [address] Mendel Herron WBC 12.4 103/ul Critically high 4.0-11.0 [facility] Comment on above: Performed By: #### L IPID, CMP, T4, TSH, FT3 #### [facility] [address] [address] [address] Mendel Herron CRPon 10-28-2022 CRP 1.3 mg/dL Critically high <=1.0 [facility] Comment on above: Performed By: #### L IPID, CMP, T4, TSH, FT3 #### [facility] [address] [place] [address] Dr. Mendel Herron PROF CHEM 8 (BAS METB)on Anion gap [Moles/Vol] 13.6 mmol/L Normal [facility] Comment on above: Performed By: #### L IPID, CMP, T4, TSH, FT3 #### [facility] [address] [address] [address] Mendel Herron Calcium [Mass/Vol] 9.3 mg/dL Normal 8.5-10.1 [facility] Comment on above: Performed By: #### L IPID, CMP, T4, TSH, FT3 #### [facility] [address] [place] [address] Dr. Mendel Herron Chloride [Moles/Vol] 102 mmol/L Normal 98-107 [facility] Comment on above: Performed By: #### L IPID, CMP, T4, TSH, FT3 #### [facility] [address] [address] [address] Mendel Herron CO2 [Moles/Vol] 30.7 mmol/L Normal 21.0-32.0 [facility] Comment on above: Performed By: #### L IPID, CMP, T4, TSH, FT3 #### [facility] [address] [address] [address] Mendel Herron Creatinine [Mass/Vol] 0.85 mg/dL Normal 0.55-1.02 [facility] Comment on above: Performed By: #### L IPID, CMP, T4, TSH, FT3 #### [facility] [address] [place] [address] Dr. Mendel Herron EGFR-AF NICARAGUAN >60 Normal >=60 [facility] Comment on above: Performed By: #### L IPID, CMP, T4, TSH, FT3 #### [facility] [address] [place] [address] Dr. Mendel Herron EGFR-NON AF NICARAGUAN >60 Normal >=60 [facility] Comment on above: Performed By: #### L IPID, CMP, T4, TSH, FT3 #### [facility] [address] [place] [address] Dr. Mendel Herron Glucose [Mass/Vol] 101 mg/dL Normal 74-106 [facility] Comment on above: Performed By: #### L IPID, CMP, T4, TSH, FT3 #### [facility] [address] [place] [address] Dr. Mendel Herron Potassium [Moles/Vol] 3.3 mmol/L Critically low 3.5-5.1 [facility] Comment on above: Performed By: #### L IPID, CMP, T4, TSH, FT3 #### [facility] [address] [place] [address] Dr. Mendel Herron Sodium [Moles/Vol] 143 mmol/L Normal 136-145 [facility] Comment on above: Performed By: #### L IPID, CMP, T4, TSH, FT3 #### [facility] [address] [address] [address] Mendel Herron Urea nitrogen [Mass/Vol] 12.0 mg/dL Normal 7.0-18.0 [facility] Comment on above: Performed By: #### L IPID, CMP, T4, TSH, FT3 #### [facility] [address] [address] [address] Mendel Herron Urea nitrogen/Creatinine [Mass ratio] 14.1 mg/mg Normal [facility] Comment on above: Performed By: #### L IPID, CMP, T4, TSH, FT3 #### [facility] [address] [address] [address] Mendel Herron URIC ACID SERUMon 10-28-2022 Urate [Mass/Vol] 7.8 mg/dL Critically high 2.6-6.0 [facility] Comment on above: Performed By: #### L IPID, CMP, T4, TSH, FT3 #### [facility] [address] [address] [address] Mendel Herron XR TOES RT MIN [...] medial ankle avulsion injury. Electronically authenticated by: GIAL PELLETIER Date: 2022-10-28 20:53 Normal [facility]on SARS-CoV-2 (COVID-19) RNA DEIRDRE+probe Ql (Unsp spec) Not detected Normal NOT DETECTED [facility] Comment on above: Result Comment: When [...] for this test is supported by the Lime Puller of Health and Human Service's declaration that [...] IPID, CMP, T4, TSH, FT3 #### [facility] [address] [place] [address] Dr. Mendel Herron CBC AUTO DIFFon 09-09-2022 BASO # 0.1 103/ul Normal 0.0-0.1 [facility] Comment on above: Performed By: #### L IPID, CMP, T4, TSH, FT3 #### [facility] [address] [place] [address] Dr. Mendel Herron Basophils/100 WBC (Bld) 0.7 % Normal 0.2-2.0 [facility] Comment on above: Performed By: #### L IPID, CMP, T4, TSH, FT3 #### [facility] [address] [place] [address] Dr. Mendel Herron EO # 0.1 103/ul Normal 0.0-0.7 [facility] Comment on above: Performed By: #### L IPID, CMP, T4, TSH, FT3 #### [facility] [address] [place] [address] Dr. Mendel Herron Eosinophils/100 WBC (Bld) 0.7 % Critically low 0.9-7.0 [facility] Comment on above: Performed By: #### L IPID, CMP, T4, TSH, FT3 #### [facility] [address] [place] [address] Dr. Mendel Herron Erythrocyte distribution width (RBC) [Ratio] 13.1 % Normal 11.0-15.0 [facility] Comment on above: Performed By: #### L IPID, CMP, T4, TSH, FT3 #### [facility] [address] [place] [address] Dr. Mendel Herron Hematocrit (Bld) [Volume fraction] 43.7 % Normal 36.0-48.0 [facility] Comment on above: Performed By: #### L IPID, CMP, T4, TSH, FT3 #### [facility] [address] [address] [address] Mendel Herron Hemoglobin (Bld) [Mass/Vol] 14.4 g/dL Normal 12.0-16.0 [facility] Comment on above: Performed By: #### L IPID, CMP, T4, TSH, FT3 #### [facility] [address] [place] [address] Dr. Mendel Herron IG # 0.11 10e3/ul Critically high 0.00-0.03 [facility] Comment on above: Performed By: #### L IPID, CMP, T4, TSH, FT3 #### [facility] [address] [place] [address] Dr. Mendel Herron IG % 1.3 % Critically high 0.0-0.5 [facility] Comment on above: Performed By: #### L IPID, CMP, T4, TSH, FT3 #### [facility] [address] [place] [address] Dr. Mendel Herron LYMPH # 2.4 103/ul Normal 1.2-3.8 [facility] Comment on above: Performed By: #### L IPID, CMP, T4, TSH, FT3 #### [facility] [address] [place] [address] Dr. Mendel Herron Lymphocytes/100 WBC (Bld) 27.9 % Normal 20.5-60.0 [facility] Comment on above: Performed By: #### L IPID, CMP, T4, TSH, FT3 #### [facility] [address] [place] [address] Dr. Mendel Herron MANUAL DIFF REQ NO Normal [facility] Comment on above: Performed By: #### L IPID, CMP, T4, TSH, FT3 #### [facility] [address] [place] [address] Dr. Mendel Herron MCH (RBC) [Entitic mass] 31.0 pg Normal 26.7-34.0 [facility] Comment on above: Performed By: #### L IPID, CMP, T4, TSH, FT3 #### [facility] [address] [place] [address] Dr. Mendel Herron MCHC (RBC) [Mass/Vol] 33.0 g/dL Normal 29.9-35.2 [facility] Comment on above: Performed By: #### L IPID, CMP, T4, TSH, FT3 #### [facility] [address] [place] [address] Dr. Mendel Herron MCV (RBC) [Entitic vol] 94.0 fL Normal 81.0-99.0 [facility] Comment on above: Performed By: #### L IPID, CMP, T4, TSH, FT3 #### [facility] [address] [place] [address] Dr. Mendel Herron MONO # 0.5 103/ul Normal 0.3-0.8 [facility] Comment on above: Performed By: #### L IPID, CMP, T4, TSH, FT3 #### [facility] [address] [place] [address] Dr. Mendel Herron Monocytes/100 WBC (Bld) 6.0 % Normal 1.7-12.0 [facility] Comment on above: Performed By: #### L IPID, CMP, T4, TSH, FT3 #### [facility] [address] [place] [address] Dr. Mendel Herron NEUT # 5.4 103/ul Normal 1.4-6.5 [facility] Comment on above: Performed By: #### L IPID, CMP, T4, TSH, FT3 #### [facility] [address] [place] [address] Dr. Mendel Herron Neutrophils/100 WBC (Bld) 63.4 % Normal 43.0-75.0 [facility] Comment on above: Performed By: #### L IPID, CMP, T4, TSH, FT3 #### [facility] [address] [address] [address] Mendel Herron Platelet mean volume (Bld) [Entitic vol] 9.8 fL Normal 9.5-13.5 [facility] Comment on above: Performed By: #### L IPID, CMP, T4, TSH, FT3 #### [facility] [address] [place] [address] Dr. Mendel Herron PLT 398 103/ul Normal 150-450 [facility] Comment on above: Performed By: #### L IPID, CMP, T4, TSH, FT3 #### [facility] [address] [place] [address] Dr. Mendel Herron RBC 4.65 106/ul Normal 4.20-5.40 [facility] Comment on above: Performed By: #### L IPID, CMP, T4, TSH, FT3 #### [facility] [address] [address] [address] Mendel Herron WBC 8.6 103/ul Normal 4.0-11.0 [facility] Comment on above: Performed By: #### L IPID, CMP, T4, TSH, FT3 #### [facility] [address] [place] [address] Dr. Mendel Herron FREE T3on 09-09-2022 FREE T3 2.59 pg/mlL Normal 2.18-3.98 [facility] Comment on above: Performed By: #### L IPID, CMP, T4, TSH, FT3 #### [facility] [address] [place] [address] Dr. Mendel Herron GLYCOHEMOGLOBIN A1Con 2022 ADA RECOMMENDATION SEE BELOW Normal [facility] Comment on above: Result Comment: ADA RECOMMENDED LIMIT 4.0 - 6.0 ADA THERAPEUTIC TARGET < 7.0 ACTION SUGGESTED > 7.0 Performed By: #### A 1C #### [facility] [address] [address] [address] Mendel Herron Glucose [Mass/Vol] 120 mg/dL Normal [facility] Comment on above: Performed By: #### A 1C #### [facility] [address] [place] [address] Dr. Mendel Herron HbA1c (Bld) [Mass fraction] 5.8 % Normal 4.5-6.2 [facility] Comment on above: Performed By: #### A 1C #### [facility] [address] [place] [address] Dr. Mendel Herron LIPID PROFILEon 09-09-2022 CHOL-HDL RATIO NORM SEE BELOW Normal [facility] Comment on above: Result Comment: 3.3 - 4.4 LOW RISK 4.4 - 7.1 AVERAGE RISK 7.1 - 11.0 MODERATE RISK >11.0 HIGH RISK Performed By: #### L IPID, CMP, T4, TSH, FT3 #### [facility] [address] [place] [address] Dr. Mendel Herron Cholesterol [Mass/Vol] 308 mg/dL Critically high <=200 [facility] Comment on above: Performed By: #### L IPID, CMP, T4, TSH, FT3 #### [facility] [address] [place] [address] Dr. Mendel Herron Cholesterol in HDL [Mass/Vol] 46 mg/dL Normal 40-60 [facility] Comment on above: Performed By: #### L IPID, CMP, T4, TSH, FT3 #### [facility] [address] [place] [address] Dr. Mendel eHrron Cholesterol in LDL [Mass/Vol] 212.6 mg/dL Normal [facility] Comment on above: Performed By: #### L IPID, CMP, T4, TSH, FT3 #### [facility] [address] [place] [address] Dr. Mendel Herron Cholesterol.total/Ch olesterol in HDL [Mass ratio] 6.7 {ratio} Normal [facility] Comment on above: Performed By: #### L IPID, CMP, T4, TSH, FT3 #### [facility] [address] [address] [address] Mendel Herron HDL NORMAL > or = 60 mg/dl - LOW CARDIOVASCULAR RISK <40 mg/dl - HIGH CARDIOVASCULAR RISK Normal [facility] Comment on above: Performed By: #### L IPID, CMP, T4, TSH, FT3 #### [facility] [address] [address] [address] Mendel Herron LDL CALC NORMAL SEE BELOW Normal [facility] Comment on above: Result Comment: <100 mg/dl OPTIMAL 100 - 129 mg/dl NEAR OR ABOVE OPTIMAL 130 - 159 mg/dl BORDERLINE HIGH 160 - 189 mg/dl HIGH >190 mg/dl VERY HIGH Performed By: #### L IPID, CMP, T4, TSH, FT3 #### [facility] [address] [address] [address] Mendel Herron Triglyceride [Mass/Vol] 247 mg/dL Critically high <=150 [facility] Comment on above: Performed By: #### L IPID, CMP, T4, TSH, FT3 #### [facility] [address] [address] [address] Mendel Herron VLDL CALC 49.4 mg/dL Normal [facility] Comment on above: Performed By: #### L IPID, CMP, T4, TSH, FT3 #### [facility] [address] [address] [address] Mendel Herron PROF 14(COMP METB)on 023 Albumin [Mass/Vol] 4.0 g/dL Normal 3.4-5.0 [facility] Comment on above: Performed By: #### L IPID, CMP, T4, TSH, FT3 #### [facility] [address] [address] [address] Mendel Herron Albumin/Globulin [Mass ratio] 0.9 {ratio} Normal [facility] Comment on above: Performed By: #### L IPID, CMP, T4, TSH, FT3 #### [facility] [address] [address] [address] Mendel Herron ALP [Catalytic activity/Vol] 115 U/L Normal 46-116 [facility] Comment on above: Performed By: #### L IPID, CMP, T4, TSH, FT3 #### [facility] [address] [place] [address] Dr. Mendel Herron ALT [Catalytic activity/Vol] 30 U/L Normal 14-59 [facility] Comment on above: Performed By: #### L IPID, CMP, T4, TSH, FT3 #### [facility] [address] [place] [address] Dr. Mendel Herron Anion gap [Moles/Vol] 12.7 mmol/L Normal [facility] Comment on above: Performed By: #### L IPID, CMP, T4, TSH, FT3 #### [facility] [address] [place] [address] Dr. Mendel Herron AST [Catalytic activity/Vol] 18 U/L Normal 15-37 [facility] Comment on above: Performed By: #### L IPID, CMP, T4, TSH, FT3 #### [facility] [address] [place] [address] Dr. Mendel Herron Bilirubin [Mass/Vol] 0.7 mg/dL Normal 0.2-1.0 [facility] Comment on above: Performed By: #### L IPID, CMP, T4, TSH, FT3 #### [facility] [address] [place] [address] Dr. Mendel Herron Calcium [Mass/Vol] 9.7 mg/dL Normal 8.5-10.1 [facility] Comment on above: Performed By: #### L IPID, CMP, T4, TSH, FT3 #### [facility] [address] [place] [address] Dr. Mendel Herron Chloride [Moles/Vol] 103 mmol/L Normal 98-107 [facility] Comment on above: Performed By: #### L IPID, CMP, T4, TSH, FT3 #### [facility] [address] [place] [address] Dr. Mendel Herron CO2 [Moles/Vol] 26.5 mmol/L Normal 21.0-32.0 [facility] Comment on above: Performed By: #### L IPID, CMP, T4, TSH, FT3 #### [facility] [address] [place] [address] Dr. Mendel Herron Creatinine [Mass/Vol] 0.83 mg/dL Normal 0.55-1.02 [facility] Comment on above: Performed By: #### L IPID, CMP, T4, TSH, FT3 #### [facility] [address] [place] [address] Dr. Mendel Herron EGFR-AF NICARAGUAN >60 Normal >=60 [facility] Comment on above: Performed By: #### L IPID, CMP, T4, TSH, FT3 #### [facility] [address] [place] [address] Dr. Mendel Herron EGFR-NON AF NICARAGUAN >60 Normal >=60 [facility] Comment on above: Performed By: #### L IPID, CMP, T4, TSH, FT3 #### [facility] [address] [place] [address] Dr. Mendel Herron Globulin (S) [Mass/Vol] 4.4 g/dL Normal [facility] Comment on above: Performed By: #### L IPID, CMP, T4, TSH, FT3 #### [facility] [address] [place] [address] Dr. Mendel Herron Glucose [Mass/Vol] 97 mg/dL Normal 74-106 [facility] Comment on above: Performed By: #### L IPID, CMP, T4, TSH, FT3 #### [facility] [address] [place] [address] Dr. Mendel Herron Potassium [Moles/Vol] 4.2 mmol/L Normal 3.5-5.1 [facility] Comment on above: Performed By: #### L IPID, CMP, T4, TSH, FT3 #### [facility] [address] [place] [address] Dr. Mendel Herron Protein [Mass/Vol] 8.4 g/dL Critically high 6.4-8.2 [facility] Comment on above: Performed By: #### L IPID, CMP, T4, TSH, FT3 #### [facility] [address] [place] [address] Dr. Mendel Herron Sodium [Moles/Vol] 138 mmol/L Normal 136-145 [facility] Comment on above: Performed By: #### L IPID, CMP, T4, TSH, FT3 #### [facility] [address] [place] [address] Dr. Mendel Herron Urea nitrogen [Mass/Vol] 12.0 mg/dL Normal 7.0-18.0 [facility] Comment on above: Performed By: #### L IPID, CMP, T4, TSH, FT3 #### [facility] [address] [place] [address] Dr. Mendel Herron Urea nitrogen/Creatinine [Mass ratio] 14.5 mg/mg Normal [facility] Comment on above: Performed By: #### L IPID, CMP, T4, TSH, FT3 #### [facility] [address] [place] [address] Dr. Mendel Herron T4on 09-09-2022 T4 [Mass/Vol] 8.80 ug/dL Normal 4.80-13.90 [facility] Comment on above: Performed By: #### L IPID, CMP, T4, TSH, FT3 #### [facility] [address] [place] [address] Dr. Mendel Herron TSHon 09-09-2022 TSH 0.898 uIU/mL Normal 0.358-3.740 [facility] Comment on above: Performed By: #### L IPID, CMP, T4, TSH, FT3 #### [facility] [address] [place] [address] Dr. Mendel Herron VITAMIN D 25 OHon 09-09-2022 VIT D 25-OH 24.0 ng/mL Normal [facility] Comment on above: Performed By: #### L IPID, CMP, T4, TSH, FT3 #### [facility] [address] [place] [address] Dr. Mendel Herron VIT D RANGES SEE BELOW Normal [facility] Comment on above: Result Comment: <20 ng/mL Vit D deficient 20 - <30 ng/mL Vit D insufficient 30 - 100 ng/mL Vit D sufficient >100 ng/mL Potential Toxicity Performed By: #### L IPID, CMP, T4, TSH, FT3 #### [facility] [address] [address] [address] Mendel Herron NM HEPATOBILIARY SCAN W [...] VIVI GARY Date: 2022-08-20 16:07 Normal [facility] US SINGLE QUAD RT UPPERon US [...] LOPES Date: 2022-08-11 15:50 Normal [facility] CARDIAC SUBHA ADMITon 023 CK [Catalytic activity/Vol] 30 U/L Normal 26-192 [facility] Comment on above: Performed By: #### L IPID, CMP, T4, TSH, FT3 #### [facility] [address] [address] [address] Mendel Herron CK.MB [Mass/Vol] 1.02 ng/mL Normal <=3.60 [facility] Comment on above: Performed By: #### L IPID, CMP, T4, TSH, FT3 #### [facility] [address] [address] [address] Mendel Herron HSTROP 32.8 pg/mL Normal 4.0-51.3 [facility] Comment on above: Result Comment: CUT- OFF POINTS HAVE BEEN ESTABLISHED BASED ON THE FOURTH UNIVERSAL DEFINITIONS OF MYOCARDIAL INFARCTION. THE UPPER REFERENCE LIMIT (URL) OF TROPONIN, DEFINED THE 99TH PERCENTILE OF cTnI DISTRIBUTION IN A REFERENCE POPULATION, HAS BEEN CONFIRMED THE DECISION THRESHOLD FOR CT DIAGNOSIS. Performed By: #### L IPID, CMP, T4, TSH, FT3 #### [facility] [address] [address] [address] Mendel Herron SONYA 23 ng/mL Normal 9-82 [facility] Comment on above: Performed By: #### L IPID, CMP, T4, TSH, FT3 #### [facility] [address] [address] [address] Mendel Herron CBC AUTO DIFFon 08-09-2022 BASO # 0.0 103/ul Normal 0.0-0.1 [facility] Comment on above: Performed By: #### L IPID, CMP, T4, TSH, FT3 #### [facility] [address] [place] [address] Dr. Mendel Herron Basophils/100 WBC (Bld) 0.3 % Normal 0.2-2.0 [facility] Comment on above: Performed By: #### L IPID, CMP, T4, TSH, FT3 #### [facility] [address] [place] [address] Dr. Mendel Herron EO # 0.0 103/ul Normal 0.0-0.7 [facility] Comment on above: Performed By: #### L IPID, CMP, T4, TSH, FT3 #### [facility] [address] [place] [address] Dr. Mendel Herron Eosinophils/100 WBC (Bld) 0.3 % Critically low 0.9-7.0 [facility] Comment on above: Performed By: #### L IPID, CMP, T4, TSH, FT3 #### [facility] [address] [place] [address] Dr. Mendel Herron Erythrocyte distribution width (RBC) [Ratio] 13.1 % Normal 11.0-15.0 [facility] Comment on above: Performed By: #### L IPID, CMP, T4, TSH, FT3 #### [facility] [address] [place] [address] Dr. Mendel Herron Hematocrit (Bld) [Volume fraction] 42.7 % Normal 36.0-48.0 [facility] Comment on above: Performed By: #### L IPID, CMP, T4, TSH, FT3 #### [facility] [address] [place] [address] Dr. Mendel Herron Hemoglobin (Bld) [Mass/Vol] 15.4 g/dL Normal 12.0-16.0 [facility] Comment on above: Performed By: #### L IPID, CMP, T4, TSH, FT3 #### [facility] [address] [place] [address] Dr. Mendel Herron IG # 0.05 10e3/ul Critically high 0.00-0.03 [facility] Comment on above: Performed By: #### L IPID, CMP, T4, TSH, FT3 #### [facility] [address] [place] [address] Dr. Mendel Herron IG % 0.4 % Normal 0.0-0.5 [facility] Comment on above: Performed By: #### L IPID, CMP, T4, TSH, FT3 #### [facility] [address] [place] [address] Dr. Mendel Herron LYMPH # 2.5 103/ul Normal 1.2-3.8 [facility] Comment on above: Performed By: #### L IPID, CMP, T4, TSH, FT3 #### [facility] [address] [place] [address] Dr. eMndel Herron Lymphocytes/100 WBC (Bld) 21.2 % Normal 20.5-60.0 [facility] Comment on above: Performed By: #### L IPID, CMP, T4, TSH, FT3 #### [facility] [address] [place] [address] Dr. Mendel Herron MANUAL DIFF REQ NO Normal [facility] Comment on above: Performed By: #### L IPID, CMP, T4, TSH, FT3 #### [facility] [address] [place] [address] Dr. Mendel Herron MCH (RBC) [Entitic mass] 31.7 pg Normal 26.7-34.0 [facility] Comment on above: Performed By: #### L IPID, CMP, T4, TSH, FT3 #### [facility] [address] [place] [address] Dr. Mendel Herron MCHC (RBC) [Mass/Vol] 36.1 g/dL Critically high 29.9-35.2 [facility] Comment on above: Performed By: #### L IPID, CMP, T4, TSH, FT3 #### [facility] [address] [place] [address] Dr. Mendel Herron MCV (RBC) [Entitic vol] 87.9 fL Normal 81.0-99.0 [facility] Comment on above: Performed By: #### L IPID, CMP, T4, TSH, FT3 #### [facility] [address] [address] [address] Mendel Herron MONO # 0.7 103/ul Normal 0.3-0.8 [facility] Comment on above: Performed By: #### L IPID, CMP, T4, TSH, FT3 #### [facility] [address] [place] [address] Dr. Mendel Herron Monocytes/100 WBC (Bld) 6.3 % Normal 1.7-12.0 [facility] Comment on above: Performed By: #### L IPID, CMP, T4, TSH, FT3 #### [facility] [address] [place] [address] Dr. Mendel Herron NEUT # 8.4 103/ul Critically high 1.4-6.5 [facility] Comment on above: Performed By: #### L IPID, CMP, T4, TSH, FT3 #### [facility] [address] [place] [address] Dr. Mendel Herron Neutrophils/100 WBC (Bld) 71.5 % Normal 43.0-75.0 [facility] Comment on above: Performed By: #### L IPID, CMP, T4, TSH, FT3 #### [facility] [address] [place] [address] Dr. Mendel Herron Platelet mean volume (Bld) [Entitic vol] 9.8 fL Normal 9.5-13.5 [facility] Comment on above: Performed By: #### L IPID, CMP, T4, TSH, FT3 #### [facility] [address] [place] [address] Dr. Mendel Herron PLT 374 103/ul Normal 150-450 [facility] Comment on above: Performed By: #### L IPID, CMP, T4, TSH, FT3 #### [facility] [address] [place] [address] Dr. Mendel Herron RBC 4.86 106/ul Normal 4.20-5.40 [facility] Comment on above: Performed By: #### L IPID, CMP, T4, TSH, FT3 #### [facility] [address], [place] [address] Dr. Mendel Herron WBC 11.7 103/ul Critically high 4.0-11.0 [facility] Comment on above: Performed By: #### L IPID, CMP, T4, TSH, FT3 #### [facility] [address], [place] [address] HEAD WO CONon [...] HELLEN VELAZQUEZ Date: 2022-08-09 15:23 Normal [facility] Covid-19 PCR (CVDTB)on 07-20 SARS-CoV-2 (COVID-19) RNA DEIRDRE+probe Ql (Unsp spec) Not detected Normal NOT DETECTED [facility] Comment on above: Result Comment: When [...] for this test is supported by the [place] of [employer] and Human Service's declaration that [...] IPID, CMP, T4, TSH, FT3 #### [facility] [address] [place] [address] Dr. Mendel Herron ER URINE PROFILEon 3 Bilirubin Ql (U) Negative Normal NEGATIVE [facility] Comment on above: Performed By: #### L IPID, CMP, T4, TSH, FT3 #### [facility] [address] [place] [address] Dr. Mendel Herron Clarity (U) CLEAR Normal CLEAR [facility] Comment on above: Performed By: #### L IPID, CMP, T4, TSH, FT3 #### [facility] [address] [place] [address] Dr. Mendel Herron Color (U) LT. YELLOW Normal YELLOW [facility] Comment on above: Performed By: #### L IPID, CMP, T4, TSH, FT3 #### [facility] [address] [place] [address] Dr. Mendel Herron ERUAHD A micrscopic examination will be performed if indicated. Normal [facility] Comment on above: Performed By: #### L IPID, CMP, T4, TSH, FT3 #### [facility] [address] [place] [address] Dr. Mendel Herron Glucose Ql (U) Negative Normal NEGATIVE [facility] Comment on above: Performed By: #### L IPID, CMP, T4, TSH, FT3 #### [facility] [address] [place] [address] Dr. Mendel Herron Hemoglobin Ql (U) TRACE-INTACT Abnormal NEGATIVE [facility] Comment on above: Performed By: #### L IPID, CMP, T4, TSH, FT3 #### [facility] [address] [place] [address] Dr. Mendel Herron Ketones Ql (U) Negative Normal NEGATIVE [facility] Comment on above: Performed By: #### L IPID, CMP, T4, TSH, FT3 #### [facility] [address] [place] [address] Dr. Mendel Herron LEUKOCYTES Negative Normal NEGATIVE [facility] Comment on above: Performed By: #### L IPID, CMP, T4, TSH, FT3 #### [facility] [address] [place] [address] Dr. Mendel Herron Nitrite Ql (U) Negative Normal NEGATIVE [facility] Comment on above: Performed By: #### L IPID, CMP, T4, TSH, FT3 #### [facility] [address] [place] [address] Dr. Mendel Herron pH (U) 5.0 [pH] Normal 5-9 [facility] Comment on above: Performed By: #### L IPID, CMP, T4, TSH, FT3 #### [facility] [address] [place] [address] Dr. Mendel Herron SPEC GRAVITY 1.015 Normal 1.005-<=1.025 [facility] Comment on above: Performed By: #### L IPID, CMP, T4, TSH, FT3 #### [facility] [address] [place] [address] Dr. Mendel Herron UA PROTEIN Negative Normal NEGATIVE/ TRACE [facility] Comment on above: Performed By: #### L IPID, CMP, T4, TSH, FT3 #### [facility] [address] [place] [address] Dr. Mendel Herron UR MICRO IND INDICATED Normal [facility] Comment on above: Performed By: #### L IPID, CMP, T4, TSH, FT3 #### [facility] [address] [place] [address] Dr. Mendel Herron Urobilinogen Qn (U) 0.2 {James'U}/dL Normal 0.2 - 1. 0 [facility] Comment on above: Performed By: #### L IPID, CMP, T4, TSH, FT3 #### [facility] [address] [address] [address] Mendel Herron LIPASEon 08-09-2022 Lipase [Catalytic activity/Vol] 114.0 U/L Normal 73.0-393.0 [facility] Comment on above: Performed By: #### L IPA, BMP, CMADM #### [facility] [address] [address] [address] Mendel Herron PROF CHEM 8 (BAS METB)on Anion gap [Moles/Vol] 18.9 mmol/L Normal [facility] Comment on above: Performed By: #### L IPA, BMP, CMADM #### [facility] [address] [address] [address] Mendel Herron Calcium [Mass/Vol] 9.4 mg/dL Normal 8.5-10.1 [facility] Comment on above: Performed By: #### L IPA, BMP, CMADM #### [facility] [address] [address] [address] Mendel Herron Chloride [Moles/Vol] 97 mmol/L Critically low 98-107 [facility] Comment on above: Performed By: #### L IPA, BMP, CMADM #### [facility] [address] [place] [address] Dr. Mendel Herron CO2 [Moles/Vol] 26.0 mmol/L Normal 21.0-32.0 [facility] Comment on above: Performed By: #### L IPA, BMP, CMADM #### [facility] [address] [place] [address] Dr. Mendel Herron Creatinine [Mass/Vol] 0.85 mg/dL Normal 0.55-1.02 [facility] Comment on above: Performed By: #### L IPA, BMP, CMADM #### [facility] [address] [place] [address] Dr. Mendel Herron EGFR-AF NICARAGUAN >60 Normal >=60 [facility] Comment on above: Performed By: #### L IPA, BMP, CMADM #### [facility] [address] [place] [address] Dr. Mendel Herron EGFR-NON AF NICARAGUAN >60 Normal >=60 [facility] Comment on above: Performed By: #### L IPA, BMP, CMADM #### [facility] [address] [address] [address] Mendel Herron Glucose [Mass/Vol] 120 mg/dL Critically high 74-106 [facility] Comment on above: Performed By: #### L IPA, BMP, CMADM #### [facility] [address] [address] [address] Mendel Herron Potassium [Moles/Vol] 3.9 mmol/L Normal 3.5-5.1 [facility] Comment on above: Performed By: #### L IPA, BMP, CMADM #### [facility] [address] [address] [address] Mendel Herron Sodium [Moles/Vol] 138 mmol/L Normal 136-145 [facility] Comment on above: Performed By: #### L IPA, BMP, CMADM #### [facility] [address] [address] [address] Mendel Herron Urea nitrogen [Mass/Vol] 17.0 mg/dL Normal 7.0-18.0 [facility] Comment on above: Performed By: #### L IPA, BMP, CMADM #### [facility] [address] [place] [address] Dr. Mendel Herron Urea nitrogen/Creatinine [Mass ratio] 20.0 mg/mg Normal [facility] Comment on above: Performed By: #### L IPA, BMP, CMADM #### [facility] [address] [place] [address] Dr. Mendel Herron TROPONIN, HIGH SENSITIVITYon 08-09-2022 HSTROP 32.5 pg/mL Normal 4.0-51.3 [facility] Comment on above: Result Comment: CUT- OFF POINTS HAVE BEEN ESTABLISHED BASED ON THE FOURTH UNIVERSAL DEFINITIONS OF MYOCARDIAL INFARCTION. THE UPPER REFERENCE LIMIT (URL) OF TROPONIN, DEFINED THE 99TH PERCENTILE OF cTnI DISTRIBUTION IN A REFERENCE POPULATION, HAS BEEN CONFIRMED THE DECISION THRESHOLD FOR CT DIAGNOSIS. Performed By: #### L IPID, CMP, T4, TSH, FT3 #### [facility] [address] [address] [address] Mendel Herron URINE MICROSCOPIC ONLYon BACTERIA NONE SEEN Normal NONE SEEN [facility] Comment on above: Performed By: #### L IPID, CMP, T4, TSH, FT3 #### [facility] [address] [address] [address] Mendel Herron Bacteria identified Cx Nom (U) NOT INDICATED Normal [facility] Comment on above: Performed By: #### L IPID, CMP, T4, TSH, FT3 #### [facility] [address] [address] [address] Mendel Herron CAST NONE SEEN Normal NONE SEEN [facility] Comment on above: Performed By: #### L IPID, CMP, T4, TSH, FT3 #### [facility] [address] [place] [address] Dr. Mendel Herron Crystals LM Nom (Urine sed) NONE SEEN Normal NONE SEEN [facility] Comment on above: Performed By: #### L IPID, CMP, T4, TSH, FT3 #### [facility] [address] [place] [address] Dr. Mendel Herron Epithelial cells LM Ql (Urine sed) NONE SEEN Normal NONE SEEN /RARE [facility] Comment on above: Performed By: #### L IPID, CMP, T4, TSH, FT3 #### [facility] [address] [place] [address] Dr. Mendel Herron MUCOUS NONE SEEN Normal NONE SEEN [facility] Comment on above: Performed By: #### L IPID, CMP, T4, TSH, FT3 #### [facility] [address] [place] [address] Dr. Mendel Herron RBC 0-2 Normal 0-2 [facility] Comment on above: Performed By: #### L IPID, CMP, T4, TSH, FT3 #### [facility] [address] [place] [address] Dr. Mendel Herron WBC NONE SEEN Normal NONE SEEN [facility] Comment on above: Performed By: #### L IPID, CMP, T4, TSH, FT3 #### [facility] [address] [place] [address] Dr. Mendel Herron XR CHEST 1 Von [...] by: MARY DIETZ Date: 2022-08-09 15:18 Normal [facility] H PYLORI ANTIBODY IGGon 07-20 H. PYLORI IGG ABS 0.11 Index Value Normal 0.00-0.79 [facility] Comment on above: Result Comment: Nega tive <0.80 Equivocal 0.80 - 0.89 Positive >0.89 Performed By: #### L IPID, CMP, T4, TSH, FT3 #### [facility] [address] [place] [address] Dr. Mendel Herron AMYLASEon 08-06-2022 Amylase [Catalytic activity/Vol] 57 U/L Normal 25-115 [facility] Comment on above: Performed By: #### L IPID, CMP, T4, TSH, FT3 #### [facility] [address] [place] [address] Dr. Mendel Herron CBC AUTO DIFFon 08-06-2022 BASO # 0.1 103/ul Normal 0.0-0.1 [facility] Comment on above: Performed By: #### L IPID, CMP, T4, TSH, FT3 #### [facility] [address] [place] [address] Dr. Mendel Herron Basophils/100 WBC (Bld) 0.7 % Normal 0.2-2.0 [facility] Comment on above: Performed By: #### L IPID, CMP, T4, TSH, FT3 #### [facility] [address] [place] [address] Dr. Mendel Herron EO # 0.1 103/ul Normal 0.0-0.7 [facility] Comment on above: Performed By: #### L IPID, CMP, T4, TSH, FT3 #### [facility] [address] [address] [address] Mendel Herron Eosinophils/100 WBC (Bld) 0.5 % Critically low 0.9-7.0 [facility] Comment on above: Performed By: #### L IPID, CMP, T4, TSH, FT3 #### [facility] [address] [place] [address] Dr. Mendel Herron Erythrocyte distribution width (RBC) [Ratio] 13.7 % Normal 11.0-15.0 [facility] Comment on above: Performed By: #### L IPID, CMP, T4, TSH, FT3 #### [facility] [address] [place] [address] Dr. Mendel Herron Hematocrit (Bld) [Volume fraction] 46.2 % Normal 36.0-48.0 [facility] Comment on above: Performed By: #### L IPID, CMP, T4, TSH, FT3 #### [facility] [address] [place] [address] Dr. Mendel Herron Hemoglobin (Bld) [Mass/Vol] 15.1 g/dL Normal 12.0-16.0 [facility] Comment on above: Performed By: #### L IPID, CMP, T4, TSH, FT3 #### [facility] [address] [place] [address] Dr. Mendel Herron IG # 0.06 10e3/ul Critically high 0.00-0.03 [facility] Comment on above: Performed By: #### L IPID, CMP, T4, TSH, FT3 #### [facility] [address] [place] [address] Dr. Mendel Herron IG % 0.6 % Critically high 0.0-0.5 [facility] Comment on above: Performed By: #### L IPID, CMP, T4, TSH, FT3 #### [facility] [address] [place] [address] Dr. Mendel Herron LYMPH # 2.5 103/ul Normal 1.2-3.8 [facility] Comment on above: Performed By: #### L IPID, CMP, T4, TSH, FT3 #### [facility] [address] [place] [address] Dr. Mendel Herron Lymphocytes/100 WBC (Bld) 23.4 % Normal 20.5-60.0 [facility] Comment on above: Performed By: #### L IPID, CMP, T4, TSH, FT3 #### [facility] [address] [place] [address] Dr. Mendel Herron MANUAL DIFF REQ NO Normal [facility] Comment on above: Performed By: #### L IPID, CMP, T4, TSH, FT3 #### [facility] [address] [place] [address] Dr. Mendel Herron MCH (RBC) [Entitic mass] 31.4 pg Normal 26.7-34.0 [facility] Comment on above: Performed By: #### L IPID, CMP, T4, TSH, FT3 #### [facility] [address] [place] [address] Dr. Mendel Herron MCHC (RBC) [Mass/Vol] 32.7 g/dL Normal 29.9-35.2 [facility] Comment on above: Performed By: #### L IPID, CMP, T4, TSH, FT3 #### [facility] [address] [place] [address] Dr. Mendel Herron MCV (RBC) [Entitic vol] 96.0 fL Normal 81.0-99.0 [facility] Comment on above: Performed By: #### L IPID, CMP, T4, TSH, FT3 #### [facility] [address] [place] [address] Dr. Mendel Herron MONO # 0.6 103/ul Normal 0.3-0.8 [facility] Comment on above: Performed By: #### L IPID, CMP, T4, TSH, FT3 #### [facility] [address] [place] [address] Dr. Mendel Herron Monocytes/100 WBC (Bld) 6.0 % Normal 1.7-12.0 [facility] Comment on above: Performed By: #### L IPID, CMP, T4, TSH, FT3 #### [facility] [address] [address] [address] Mendel Herron NEUT # 7.4 103/ul Critically high 1.4-6.5 [facility] Comment on above: Performed By: #### L IPID, CMP, T4, TSH, FT3 #### [facility] [address] [address] [address] Mendel Herron Neutrophils/100 WBC (Bld) 68.8 % Normal 43.0-75.0 [facility] Comment on above: Performed By: #### L IPID, CMP, T4, TSH, FT3 #### [facility] [address] [address] [address] Mendel Herron Platelet mean volume (Bld) [Entitic vol] 9.7 fL Normal 9.5-13.5 [facility] Comment on above: Performed By: #### L IPID, CMP, T4, TSH, FT3 #### [facility] [address] [address] [address] Mendel Herron PLT 331 103/ul Normal 150-450 [facility] Comment on above: Performed By: #### L IPID, CMP, T4, TSH, FT3 #### [facility] [address] [address] [address] Mendel Herron RBC 4.81 106/ul Normal 4.20-5.40 [facility] Comment on above: Performed By: #### L IPID, CMP, T4, TSH, FT3 #### [facility] [address] [address] [address] Mendel Herron WBC 10.7 103/ul Normal 4.0-11.0 [facility] Comment on above: Performed By: #### L IPID, CMP, T4, TSH, FT3 #### [facility] [address] HEAD WO CONon [...] by: JEAN LOPES Date: 2022-08-06 08:39 Normal [facility] LIPASEon 08-06-2022 Lipase [Catalytic activity/Vol] 125.0 U/L Normal 73.0-393.0 [facility] Comment on above: Performed By: #### L IPID, CMP, T4, TSH, FT3 #### [facility] [address] [place] [address] Dr. Mendel Herron PROF 14(COMP METB)on 023 Albumin [Mass/Vol] 3.7 g/dL Normal 3.4-5.0 [facility] Comment on above: Performed By: #### L IPID, CMP, T4, TSH, FT3 #### [facility] [address] [address] [address] Mendel Herron Albumin/Globulin [Mass ratio] 0.9 {ratio} Normal [facility] Comment on above: Performed By: #### L IPID, CMP, T4, TSH, FT3 #### [facility] [address] [address] [address] Mendel Herron ALP [Catalytic activity/Vol] 110 U/L Normal 46-116 [facility] Comment on above: Performed By: #### L IPID, CMP, T4, TSH, FT3 #### [facility] [address] [address] [address] Mendel Herron ALT [Catalytic activity/Vol] 25 U/L Normal 14-59 [facility] Comment on above: Performed By: #### L IPID, CMP, T4, TSH, FT3 #### [facility] [address] [place] [address] Dr. Mendel Herron Anion gap [Moles/Vol] 14.0 mmol/L Normal [facility] Comment on above: Performed By: #### L IPID, CMP, T4, TSH, FT3 #### [facility] [address] [place] [address] Dr. Mendel Herron AST [Catalytic activity/Vol] 16 U/L Normal 15-37 [facility] Comment on above: Performed By: #### L IPID, CMP, T4, TSH, FT3 #### [facility] [address] [address] [address] Mendel Herron Bilirubin [Mass/Vol] 0.6 mg/dL Normal 0.2-1.0 [facility] Comment on above: Performed By: #### L IPID, CMP, T4, TSH, FT3 #### [facility] [address] [place] [address] Dr. Mendel Herron Calcium [Mass/Vol] 9.3 mg/dL Normal 8.5-10.1 [facility] Comment on above: Performed By: #### L IPID, CMP, T4, TSH, FT3 #### [facility] [address] [place] [address] Dr. Mendel Herron Chloride [Moles/Vol] 103 mmol/L Normal 98-107 [facility] Comment on above: Performed By: #### L IPID, CMP, T4, TSH, FT3 #### [facility] [address] [place] [address] Dr. Mendel Herron CO2 [Moles/Vol] 27.3 mmol/L Normal 21.0-32.0 [facility] Comment on above: Performed By: #### L IPID, CMP, T4, TSH, FT3 #### [facility] [address] [place] [address] Dr. Mendel Herron Creatinine [Mass/Vol] 0.71 mg/dL Normal 0.55-1.02 [facility] Comment on above: Performed By: #### L IPID, CMP, T4, TSH, FT3 #### [facility] [address] [address] [address] Mendel Herron EGFR-AF NICARAGUAN >60 Normal >=60 [facility] Comment on above: Performed By: #### L IPID, CMP, T4, TSH, FT3 #### [facility] [address] [address] [address] Mendel Herron EGFR-NON AF NICARAGUAN >60 Normal >=60 [facility] Comment on above: Performed By: #### L IPID, CMP, T4, TSH, FT3 #### [facility] [address] [place] [address] Dr. Mendel Herron Globulin (S) [Mass/Vol] 4.3 g/dL Normal [facility] Comment on above: Performed By: #### L IPID, CMP, T4, TSH, FT3 #### [facility] [address] [place] [address] Dr. Mendel Herron Glucose [Mass/Vol] 102 mg/dL Normal 74-106 [facility] Comment on above: Performed By: #### L IPID, CMP, T4, TSH, FT3 #### [facility] [address] [place] [address] Dr. Mendel Herron Potassium [Moles/Vol] 4.3 mmol/L Normal 3.5-5.1 [facility] Comment on above: Performed By: #### L IPID, CMP, T4, TSH, FT3 #### [facility] [address] [address] [address] Mendel Herron Protein [Mass/Vol] 8.0 g/dL Normal 6.4-8.2 [facility] Comment on above: Performed By: #### L IPID, CMP, T4, TSH, FT3 #### [facility] [address] [place] [address] Dr. Mendel Herron Sodium [Moles/Vol] 140 mmol/L Normal 136-145 [facility] Comment on above: Performed By: #### L IPID, CMP, T4, TSH, FT3 #### [facility] [address] [address] [address] Mendel Herron Urea nitrogen [Mass/Vol] 19.0 mg/dL Critically high 7.0-18.0 [facility] Comment on above: Performed By: #### L IPID, CMP, T4, TSH, FT3 #### [facility] [address] [address] [address] Mendel Herron Urea nitrogen/Creatinine [Mass ratio] 26.8 mg/mg Normal [facility] Comment on above: Performed By: #### L IPID, CMP, T4, TSH, FT3 #### [facility] [address] [address] [address] Mendel Herron Covid-19 PCR ([facility])on 06-19 SARS-CoV-2 (COVID-19) RNA DEIRDRE+probe Ql (Unsp spec) Not detected Normal NOT DETECTED [facility] Comment on above: Result Comment: This test is not yet approved or cleared by the [place] FDA. When there are no FDA-approved or cleared tests available, and other criteria are met, FDA can make tests available under an emergency access mechanism called an Emergency Use Authorization (EUA). The EUA for this test is supported by the [place] of Health and Human Service's (HHS's) declaration [...] Performed By: #### C VDTBH #### [facility] [address] [place] [address] Dr. Mendel Herron INFLUENZA A AND B AGon 06-19 INFLUANEGH SEE BELOW Normal [facility] Comment on above: Result Comment: Nega tive for Flu A protein angiten. Infection due to Flu A cannot be ruled out. Flu A angiten in the sample may be below the detection limit of the test. Performed By: #### L IPID, CMP, T4, TSH, FT3 #### [facility] [address] [address] [address] Mendel Herron INFLUBNEGH SEE BELOW Normal [facility] Comment on above: Result Comment: Nega tive for Flu B protein antigen. Infection due to Flu B cannot be ruled out. Flu B antigen in the sample may be below the detection limit of the test. Performed By: #### L IPID, CMP, T4, TSH, FT3 #### [facility] [address] [address] [address] Mendel Herron INFLUENZA A AG Negative Normal NEGATIVE SEE COMMENT [facility] Comment on above: Performed By: #### L IPID, CMP, T4, TSH, FT3 #### [facility] [address] [address] [address] Mendel Herron INFLUENZA B AG Negative Normal NEGATIVE SEE COMMENT [facility] Comment on above: Performed By: #### L IPID, CMP, T4, TSH, FT3 #### [facility] [address] [place], [place] [address] Dr. Mendel Herron Covid-19 PCR ([facility])on 04-19 SARS-CoV-2 (COVID-19) RNA DEIRDRE+probe Ql (Unsp spec) Not detected Normal NOT DETECTED [facility] Comment on above: Result Comment: This test is not yet approved or cleared by the [place] FDA. When there are no FDA-approved or cleared tests available, and other criteria are met, FDA can make tests available under an emergency access mechanism called an Emergency Use Authorization (EUA). The EUA for this test is supported by the [place] of Health and Human Service's (HHS's) declaration [...] IPID, CMP, T4, TSH, FT3 #### [facility] [address] [place] [address] Dr. Mendel Herron INFLUENZA A AND B [facility] 05-11 [facility] SEE BELOW Normal [facility] Comment on above: Result Comment: Nega tive for Flu A protein angiten. Infection due to Flu A cannot be ruled out. Flu A angiten in the sample may be below the detection limit of the test. Performed By: #### L IPID, CMP, T4, TSH, FT3 #### [facility] [address] [place] [address] Dr. Mendel Herron [facility] SEE BELOW Normal [facility] Comment on above: Result Comment: Nega tive for Flu B protein antigen. Infection due to Flu B cannot be ruled out. Flu B antigen in the sample may be below the detection limit of the test. Performed By: #### L IPID, CMP, T4, TSH, FT3 #### [facility] [address] [place] [address] Dr. Mendel Herron INFLUENZA A AG Negative Normal NEGATIVE SEE COMMENT [facility] Comment on above: Performed By: #### L IPID, CMP, T4, TSH, FT3 #### [facility] [address] [place] [address] Dr. Mendel Herron INFLUENZA B AG Negative Normal NEGATIVE SEE COMMENT [facility] Comment on above: Performed By: #### L IPID, CMP, T4, TSH, FT3 #### [facility] [address] [place] [address] Dr. Mendel Herron INTERNAL CONTROLS Within Normal Limits Normal Wi thin Normal Limits [facility] Comment on above: Performed By: #### L IPID, CMP, T4, TSH, FT3 #### [facility] [address] [place] [address] Dr. Mendel Herron [facility] Metabolic Empo 12-23-2021 Albumin [Mass/Vol] 3.7 g/dL Normal 3.2-5.5 [facility] Comment on above: Performed By: #### E BS CMP, EBS LIPID #### [facility] [address] Albumin/Globulin [Mass ratio] 1.0 {ratio} Normal [facility] Comment on above: Performed By: #### E BS CMP, EBS LIPID #### [facility] [address] [id number] [place] ALP [Catalytic activity/Vol] 159 U/L High 32-92 [facility] Comment on above: Performed By: #### E BS CMP, EBS LIPID #### [facility] [address] ALT [Catalytic activity/Vol] 28 U/L Normal 10-60 [facility] Comment on above: Performed By: #### E BS CMP, EBS LIPID #### [facility] [address] AST [Catalytic activity/Vol] 27 U/L Normal 10-42 [facility] Comment on above: Performed By: #### E BS CMP, EBS LIPID #### [facility] [address] [place] [address] [place] Bilirubin [Mass/Vol] 1.2 mg/dL Normal 0.3-1.2 [facility] Comment on above: Performed By: #### E BS CMP, EBS LIPID #### [facility] [address] [place] [address] [place] Calcium [Mass/Vol] 9.2 mg/dL Normal 8.2-10.2 [facility] Comment on above: Performed By: #### E BS CMP, EBS LIPID #### [facility] [address] [id number] [place] Chloride [Moles/Vol] 100 mmol/L Normal 95-114 [facility] Comment on above: Performed By: #### E BS CMP, EBS LIPID #### [facility] [address] [id number] [facility] CO2 [Moles/Vol] 20.6 mmol/L Low 22.0-30.0 [facility] Comment on above: Performed By: #### E BS CMP, EBS LIPID #### [facility] [address] Creatinine [Mass/Vol] 0.57 mg/dL Normal 0.44-1.03 [facility] Comment on above: Performed By: #### E BS CMP, EBS LIPID #### [facility] [address] [place] [address] Estimated GFR ( Ni > 60 Normal [facility] Comment on above: Result Comment: GFR estimated reference range: According to KDOQI guidelines, <60 ml/min/1.73m2 is sufficient to diagnose a patient with chronic kidney disease. Performed By: #### E BS CMP, EBS LIPID #### [facility] [address] [place] [address] Estimated GFR (Non- Am > 60 Normal [facility] Comment on above: Performed By: #### E BS CMP, EBS LIPID #### [facility] [address] [place] [address] Globulin (S) [Mass/Vol] 3.7 g/dL Normal [facility] Comment on above: Performed By: #### E BS CMP, EBS LIPID #### [facility] [address] [place] [address] Glucose [Mass/Vol] 100 mg/dL Normal 70-100 [facility] Comment on above: Performed By: #### E BS CMP, EBS LIPID #### [facility] [address] [place] [address] [place] Potassium [Moles/Vol] 3.9 mmol/L Normal 3.5-5.1 [facility] Comment on above: Performed By: #### E BS CMP, EBS LIPID #### [facility] [address] [place] [address] [place] Protein [Mass/Vol] 7.4 g/dL Normal 6.1-7.9 [facility] Comment on above: Performed By: #### E BS CMP, EBS LIPID #### [facility] [address] [place] [address] [place] Sodium [Moles/Vol] 135 mmol/L Low 136-146 [facility] Comment on above: Performed By: #### E BS CMP, EBS LIPID #### [facility] [address] [place] [address] [place] Urea nitrogen [Mass/Vol] 12 mg/dL Normal 9-23 [facility] Comment on above: Performed By: #### E BS CMP, EBS LIPID #### [facility] [address] [id number] [place] Lipid Profileon 12-23-2021 Cholesterol [Mass/Vol] 213 mg/dL High 140-200 [facility] Comment on above: Result Comment: Chol less than 200 mg/dl low risk Chol 201-239 mg/dl borderline risk Chol 240 mg/dl and greater high risk Performed By: #### E BS CMP, EBS LIPID #### [facility] [address] Cholesterol in HDL [Mass/Vol] 36 mg/dL Normal 35-85 [facility] Comment on above: Result Comment: HDL CHOL ATP-III CLASSIFICATION Cardiovascular Risk HDL > or equal to 60 mg/dL LOW HDL < 40 mg/dL HIGH Performed By: #### E BS CMP, EBS LIPID #### [facility] [address] Cholesterol.total/Ch olesterol in HDL [Mass ratio] 5.9 {ratio} Normal <5.0 [facility] Comment on above: Result Comment: PERF ORMED BY: [place] [address] PATHOLOGIST THREAD WINDER MARIBEL AGUILLON M.D. Performed By: #### E BS CMP, EBS LIPID #### [facility] [address] [id number] [place] LDL Cholesterol,Calculat ed 151 mg/dL High 0-100 [facility] Comment on above: Result Comment: LDL ATP III CLASSIFICATION LDL less than 100 mg/dL Optimal LDL 100-129 mg/dL Near or above optimal LDL 130-159 mg/dL Borderline high LDL 160-189 mg/dL High LDL greater than 189 mg/dL Very high Performed By: #### E BS CMP, EBS LIPID #### [facility] [address] Triglyceride w/Reflex 129 mg/dL Normal 35-149 [facility] Comment on above: Result Comment: TRIG ATP III CLASSIFICATION TRIG less than 150 mg/dL Normal TRIG 150-199 mg/dL Borderline high TRIG 200-500 mg/dL High TRIG greater than 500 mg/dL Very high Standard traceable to the Center for Disease Conrtrol and Prevention (CDC) test method. Performed By: #### E BS CMP, EBS LIPID #### [facility] [address] VLDL CHOLESTEROL 25 mg/dL Normal [facility] Comment on above: Performed By: #### E BS CMP, EBS LIPID #### [facility] [address] [facility] SARS-CoV-2 (COVID-19) RNA DEIRDRE+probe Ql (Unsp spec) Detected Critically abnormal NOT DETECTED [facility] Comment on above: Result Comment: This test is not yet approved or cleared by the [place] FDA. When there are no FDA-approved or cleared tests available, and other criteria are met, FDA can make tests available under an emergency access mechanism called an Emergency Use Authorization (EUA). The EUA for this test is supported by the [place] of Health and Human Service's declaration that [...] used). Performed By: #### C VDTBH #### [facility] [address] [place], [place] [address] Dr. Mendel Herron INFLUENZA A AND B AGon 12-02 INFLUANEGH SEE BELOW Normal [facility] Comment on above: Result Comment: Nega tive for Flu A protein angiten. Infection due to Flu A cannot be ruled out. Flu A angiten in the sample may be below the detection limit of the test. Performed By: #### L IPID, CMP, T4, TSH, FT3 #### [facility] [address] [address] [address] Mendel Herron [facility] SEE BELOW Normal [facility] Comment on above: Result Comment: Nega tive for Flu B protein antigen. Infection due to Flu B cannot be ruled out. Flu B antigen in the sample may be below the detection limit of the test. Performed By: #### L IPID, CMP, T4, TSH, FT3 #### [facility] [id number] Mendel Herron INFLUENZA A AG Negative Normal NEGATIVE SEE COMMENT [facility] Comment on above: Performed By: #### L IPID, CMP, T4, TSH, FT3 #### [facility] [address] [address] [address] Mendel Herron INFLUENZA B AG Negative Normal NEGATIVE SEE COMMENT [facility] Comment on above: Performed By: #### L IPID, CMP, T4, TSH, FT3 #### [facility] [address] [address] [address] Mendel Herron INTERNAL CONTROLS Within Normal Limits Normal Wi thin Normal Limits [facility] Comment on above: Performed By: #### L IPID, CMP, T4, TSH, FT3 #### [facility] [id number] Mendel Herron Cardiovascular Lab Reporton 08-18-2021 Cardiovascular Lab Report [facility] Patient Name: [facility] S MR #: [id number] Department of Physician: Curtis Martinez MD Medicine Service Date: 08/18/2021 Division of Birthdate: 1970 Cardiology Room #: Adult Cardiovascular Services [place] [address] Cardiovascular Laboratory Report ATRIAL FLUTTER ABLATION AND [...] ab (more content not included)... Normal [facility] BILL Antinuclear Antibodieson 04-23-2021 Antinuclear Abs, IFA Negative Normal . [facility] Comment on above: Result Comment: Nega tive <1:80 Borderline 1:80 Positive >1:80 ICAP nomenclature: AC-0 For more information about Hep-2 cell patterns use ANApatterns.org, the official website for the International Consensus on Antinuclear Antibody (BILL) Patterns (ICAP). Performed at: [facility] [id number] [place]: Ger Yen PhD, Phone: [phone] PERFORMED BY: [place] [address] PATHOLOGIST TH[employer] WINDER MARIBEL AGUILLON M.D. Performed By: #### E SR, CRP, CBC, CREAT #### [address] #### BILL #### [facility] , C-Reactive Proteinon 021 C-Reactive Protein 0.7 mg/dL Normal 0.0-1.0 [facility] Comment on above: Result Comment: PERF ORMED BY: [place] [address] PATHOLOGIST [employer] W[employer]ER MARIBEL AGUILLON M.D. Performed By: #### E SR, CRP, CBC, CREAT #### [address] #### BILL #### [facility] , Complement C3on 04-23-2021 Complement C3 170 mg/dL High 82-167 [facility] Comment on above: Result Comment: Perf ormed at: - [facility] [address] [id number] [place]: Ger Yen PhD, Phone: [phone] Performed By: #### A DDONUAPLUS #### [address] #### CH50, C3, C4 #### [facility] , Complement C4on 04-23-2021 Complement C4 14 mg/dL Normal 12-38 [facility] Comment on above: Performed By: #### A DDONUAPLUS #### [address] #### CH50, C3, C4 #### [facility] , Complement Total (CH50)on Complement Total (CH50) >60 Normal >41 [facility] Comment on above: Result [...] out of range values. Performed at: - [facility] [id number] [place]: Ger Yen PhD, Phone: [phone] PERFORMED BY: [place] [address] PATHOLOGIST TH[employer] W[employer]ER MARIBEL AGUILLON M.D. Performed By: #### E BS CMP, EBS LIPID #### [address] Complete Blood Count Auto Di ffon 04-23-2021 Basophils (Bld) [#/Vol] 0.1 10*3/uL Normal 0.0-0.2 [facility] Comment on above: Performed By: #### E SR, CRP, CBC, CREAT #### [address] #### BILL #### [facility] , Basophils/100 WBC (Bld) 0.7 % Normal . [facility] Comment on above: Performed By: #### E SR, CRP, CBC, CREAT #### [address] #### BILL #### [facility] , Eosinophils (Bld) [#/Vol] 0.1 10*3/uL Normal 0.0-0.45 [facility] Comment on above: Performed By: #### E SR, CRP, CBC, CREAT #### [place] [address] [place] #### BILL #### [facility] , Eosinophils/100 WBC (Bld) 0.5 % Normal . [facility] Comment on above: Performed By: #### E SR, CRP, CBC, CREAT #### [address] #### BILL #### [facility] , Erythrocyte distribution width (RBC) [Ratio] 18.0 % High 11.9-15.3 [facility] Comment on above: Performed By: #### E SR, CRP, CBC, CREAT #### [address] #### BILL #### [facility] , Hematocrit (Bld) [Volume fraction] 31.6 % Low 34.0-46.4 [facility] Comment on above: Performed By: #### E SR, CRP, CBC, CREAT #### [address] #### BILL #### [facility] , Hemoglobin (Bld) [Mass/Vol] 9.8 g/dL Low 11.8-15.4 [facility] Comment on above: Performed By: #### E SR, CRP, CBC, CREAT #### [address] #### BILL #### [facility] , Lymphocytes (Bld) [#/Vol] 1.7 10*3/uL Normal 1.00-4.8 [facility] Comment on above: Performed By: #### E SR, CRP, CBC, CREAT #### [place] [address] [place] #### BILL #### [facility] , Lymphocytes/100 WBC (Bld) 15.0 % Normal . [facility] Comment on above: Performed By: #### E SR, CRP, CBC, CREAT #### [place] [address] [place] #### BILL #### [facility] , MCH (RBC) [Entitic mass] 24.8 pg Normal 24.7-34.3 [facility] Comment on above: Performed By: #### E SR, CRP, CBC, CREAT #### [facility] [address] [place] [address] #### BILL #### [facility] , MCV (RBC) [Entitic vol] 80.1 fL Normal 80-100 [facility] Comment on above: Performed By: #### E SR, CRP, CBC, CREAT #### [facility] [address] [place] [address] [place] #### BILL #### [facility] , Mean Corpuscular HGB Conc 31.0 g/dL Low 32.0-35.0 [facility] Comment on above: Performed By: #### E SR, CRP, CBC, CREAT #### [address] #### BILL #### [facility] , Monocytes (Bld) [#/Vol] 0.5 10*3/uL Normal 0.0-0.8 [facility] Comment on above: Performed By: #### E SR, CRP, CBC, CREAT #### [place] [address] [place] #### BILL #### [facility] , Monocytes/100 WBC (Bld) 4.6 % Normal . [facility] Comment on above: Performed By: #### E SR, CRP, CBC, CREAT #### [place] [address] [place] #### BILL #### [facility] , Neutrophils (Bld) [#/Vol] 9.1 10*3/uL High 1.8-7.7 [facility] Comment on above: Performed By: #### E SR, CRP, CBC, CREAT #### [place] [address] [place] #### BILL #### [facility] , Neutrophils/100 WBC (Bld) 79.2 % Normal . [facility] Comment on above: Performed By: #### E SR, CRP, CBC, CREAT #### [facility] [address] [place] [address] #### BILL #### [facility] , Nucleated RBC/100 WBC (Bld) [Ratio] 0.1 % Normal 0-0.5 [facility] Comment on above: Performed By: #### E SR, CRP, CBC, CREAT #### [facility] [address] [place] [address] [place] #### BILL #### [facility] , Platelet mean volume (Bld) [Entitic vol] 8.3 fL Normal 6.3-10.7 [facility] Comment on above: Performed By: #### E SR, CRP, CBC, CREAT #### [address] #### BILL #### [facility] , Platelets (Bld) [#/Vol] 336 10*3/uL Normal 150-450 [facility] Comment on above: Performed By: #### E SR, CRP, CBC, CREAT #### [address] #### BILL #### [facility] , RBC (Bld) [#/Vol] 3.94 10*6/uL Normal 3.60-5.00 [facility] Comment on above: Performed By: #### E SR, CRP, CBC, CREAT #### [place] [address] [place] #### BILL #### [facility] , WBC (Bld) [#/Vol] 11.5 10*3/uL High 4.5-11.0 [facility] Comment on above: Performed By: #### E SR, CRP, CBC, CREAT #### [place] [address] [place] #### BILL #### [facility] , Creatinineon 04-23-2021 Creatinine [Mass/Vol] 0.75 mg/dL Normal 0.44-1.03 [facility] Comment on above: Performed By: #### E SR, CRP, CBC, CREAT #### [address] #### BILL #### [facility] , Estimated GFR ( Ni > 60 Normal [facility] Comment on above: Result Comment: GFR estimated reference range: According to KDOQI guidelines, <60 ml/min/1.73m2 is sufficient to diagnose a patient with chronic kidney disease. Performed By: #### E SR, CRP, CBC, CREAT #### [facility] [address] [place] [address] #### BILL #### [facility] , Estimated GFR (Non- Am > 60 Normal [facility] Comment on above: Performed By: #### E SR, CRP, CBC, CREAT #### [address] #### BILL #### [facility] , Dipstick and Microscopicon 1 Appearance (U) Clear Normal Clear [facility] Comment on above: Order Comment: Name Collection Type:: Clean-Voided Midstream Performed By: #### A DDONUAPLUS #### [place] [address] [place] #### CH50, C3, C4 #### [facility] , Bacteria,Urine None Seen Normal None Seen [facility] Comment on above: Order Comment: Name Collection Type:: Clean-Voided Midstream Performed By: #### A DDONUAPLUS #### [place] [address] [place] #### CH50, C3, C4 #### [facility] , Bilirubin,Urine Negative Normal Negative [facility] Comment on above: Order Comment: Name Collection Type:: Clean-Voided Midstream Performed By: #### A DDONUAPLUS #### [address] #### CH50, C3, C4 #### [facility] , Color (U) Yellow Normal Yellow [facility] Comment on above: Order Comment: Name Collection Type:: Clean-Voided Midstream Performed By: #### A DDONUAPLUS #### [address] #### CH50, C3, C4 #### [facility] , Glucose Ql (U) 100 mg/dL High Normal [facility] Comment on above: Order Comment: Name Collection Type:: Clean-Voided Midstream Performed By: #### A DDONUAPLUS #### [address] #### CH50, C3, C4 #### [facility] , Hyaline Casts,Urine 0-8 Normal 0-8 [facility] Comment on above: Order Comment: Name Collection Type:: Clean-Voided Midstream Result Comment: PERF ORMED BY: [place] [address] PATHOLOGIST THREAD WINDER MARIBEL AGUILLON M.D. Performed By: #### A DDONUAPLUS #### [address] #### CH50, C3, C4 #### [facility] , Ketones Ql (U) Negative Normal Negative [facility] Comment on above: Order Comment: Name Collection Type:: Clean-Voided Midstream Performed By: #### A DDONUAPLUS #### [address] #### CH50, C3, C4 #### [facility] , Leukocyte esterase Test strip Ql (U) Negative Normal Negative [facility] Comment on above: Order Comment: Name Collection Type:: Clean-Voided Midstream Performed By: #### A DDONUAPLUS #### [address] #### CH50, C3, C4 #### [facility] , Nitrite,Urine Negative Normal Negative [facility] Comment on above: Order Comment: Name Collection Type:: Clean-Voided Midstream Performed By: #### A DDONUAPLUS #### [address] #### CH50, C3, C4 #### [facility] , Occult Blood,Urine Negative Normal Negative [facility] Comment on above: Order Comment: Name Collection Type:: Clean-Voided Midstream Performed By: #### A DDONUAPLUS #### [address] #### CH50, C3, C4 #### [facility] , pH (U) 5.0 [pH] Normal 5.0-9.0 [facility] Comment on above: Order Comment: Name Collection Type:: Clean-Voided Midstream Performed By: #### A DDONUAPLUS #### [address] #### CH50, C3, C4 #### [facility] , Protein,Urine Negative Normal Negative [facility] Comment on above: Order Comment: Name Collection Type:: Clean-Voided Midstream Performed By: #### A DDONUAPLUS #### [address] #### CH50, C3, C4 #### [facility] , RBC,Urine None Seen Normal 0-4 [facility] Comment on above: Order Comment: Name Collection Type:: Clean-Voided Midstream Performed By: #### A DDONUAPLUS #### [address] #### CH50, C3, C4 #### [facility] , Specificy [place],Urine 1.009 Normal 1.001-1.030 [facility] Comment on above: Order Comment: Name Collection Type:: Clean-Voided Midstream Performed By: #### A DDONUAPLUS #### [address] #### CH50, C3, C4 #### [facility] , Squamous Epithelial Cell,Urine 0-1 Normal 0-2 [facility] Comment on above: Order Comment: Name Collection Type:: Clean-Voided Midstream Performed By: #### A DDONUAPLUS #### [address] #### CH50, C3, C4 #### [facility] , Urobilinogen,Urine Normal Normal Normal [facility] Comment on above: Order Comment: Name Collection Type:: Clean-Voided Midstream Performed By: #### A DDONUAPLUS #### [address] #### CH50, C3, C4 #### [facility] , WBC LM.HPF (Urine sed) [#/Area] 0 /[HPF] Normal 0-4 [facility] Comment on above: Order Comment: Name Collection Type:: Clean-Voided Midstream Performed By: #### A DDONUAPLUS #### [address] #### CH50, C3, C4 #### [facility] , Erythrocyte Sedimentation Ra ryley 04-23-2021 ESR (Bld) [Velocity] 55 mm/h High 0-29 [facility] Comment on above: Result Comment: PERF ORMED BY: [place] [address] PATHOLOGIST THREAD WINDER MARIBEL AGUILLON M.D. Performed By: #### E SR, CRP, CBC, CREAT #### [address] #### BILL #### [facility] , BASIC METABOLIC PANELon - Calcium [Mass/Vol] 8.7 mg/dL Normal 8.6-10.3 [facility] Comment on above: Order Comment: No: D o not add to previous draw Performed By: #### 5 7307, 96955 #### [facility] [address] [place] [address], [place] Chloride [Moles/Vol] 97 mmol/L Low 98-107 [facility] Comment on above: Order Comment: No: D o not add to previous draw Performed By: #### 5 7307, 11362 #### [facility] [address] [place] [address], [place] CO2 [Moles/Vol] 36 mmol/L High 21-31 [facility] Comment on above: Order Comment: No: D o not add to previous draw Performed By: #### 5 7307, 96391 #### [facility] [address] [place] [address], [place] Creatinine [Mass/Vol] 0.74 mg/dL Normal 0.60-1.20 [facility] Comment on above: Order Comment: No: D o not add to previous draw Performed By: #### 5 7307, 42154 #### [facility] [address] [place] [address], [place] GFR/1.73 sq M.predicted among blacks MDRD (S/P/Bld) [Vol rate/Area] mL/min/{1.73_m2} Normal >60 [facility] Comment on above: Order Comment: No: D o not add to previous draw Performed By: #### 5 7307, 13034 #### [facility] [address] [place] [address], [place] GFR/1.73 sq M.predicted among non-blacks MDRD (S/P/Bld) [Vol rate/Area] mL/min/{1.73_m2} Normal >60 [facility] Comment on above: Order Comment: No: D o not add to previous draw Performed By: #### 5 73, 78318 #### [facility] [address] [place] [address], [place] Glucose [Mass/Vol] 123 mg/dL High 70-100 [facility] Comment on above: Order Comment: No: D o not add to previous draw Performed By: #### 5 73, 64783 #### [facility] [address] [place] [address], [place] Potassium [Moles/Vol] 4.3 mmol/L Normal 3.5-5.1 [facility] Comment on above: Order Comment: No: D o not add to previous draw Performed By: #### 5 73, 01196 #### [facility] [address] [place] [address], [place] Sodium [Moles/Vol] 139 mmol/L Normal 136-145 [facility] Comment on above: Order Comment: No: D o not add to previous draw Performed By: #### 5 73, 86018 #### [facility] [address] [place] [address], [place] Urea nitrogen [Mass/Vol] 24 mg/dL Normal 7-25 [facility] Comment on above: Order Comment: No: D o not add to previous draw Performed By: #### 5 73, 63561 #### [facility] [address] [place] [address], [place] CBC COMPLETE BLOOD COUNTon 0 - Erythrocyte distribution width (RBC) [Ratio] 16.8 % High 11.5-15.0 [facility] Comment on above: Order Comment: No: D o not add to previous draw Performed By: #### 5 7307, 67334 #### [facility] [address] [place] [address], [place] Hematocrit (Bld) [Volume fraction] 29.7 % Low 36.0-45.0 [facility] Comment on above: Order Comment: No: D o not add to previous draw Performed By: #### 5 73, 93552 #### [facility] [address] [place] [address], [facility] Hemoglobin (Bld) [Mass/Vol] 8.9 g/dL Low 12.0-15.0 [facility] Comment on above: Order Comment: No: D o not add to previous draw Performed By: #### 5 7306, 08068 #### [facility] [address] [place] [address], [facility] MCH (RBC) [Entitic mass] 25.4 pg Low 27.0-33.0 [facility] Comment on above: Order Comment: No: D o not add to previous draw Performed By: #### 5 7306, 79892 #### [facility] [address] [place] [address], [facility] MCHC (RBC) [Mass/Vol] 30.0 g/dL Low 32.0-35.0 [facility] Comment on above: Order Comment: No: D o not add to previous draw Performed By: #### 5 7306, 19376 #### [facility] [address] [place] [address], [facility] MCV (RBC) [Entitic vol] 84.9 fL Normal 82.0-98.0 [facility] Comment on above: Order Comment: No: D o not add to previous draw Performed By: #### 5 7306, 70555 #### [facility] [address] [place] [address], [facility] Nucleated RBC/100 WBC (Bld) [Ratio] 0 % Normal 0-0 [facility] Comment on above: Order Comment: No: D o not add to previous draw Performed By: #### 5 7306, 68166 #### [facility] [address] PLAT CNT 446 10*3/uL High 150-400 [facility] Comment on above: Order Comment: No: D o not add to previous draw Performed By: #### 5 7307, 50022 #### [facility] [address] RBC (Bld) [#/Vol] 3.50 10*6/uL Low 3.80-5.00 [facility] Comment on above: Order Comment: No: D o not add to previous draw Performed By: #### 5 7307, 64591 #### [facility] [address] WBC (Bld) [#/Vol] 16.54 10*3/uL High 4.00-10.60 [facility] Comment on above: Order Comment: No: D o not add to previous draw Performed By: #### 5 7307, 45150 #### [facility] [address] Cardiovascular Lab Reporton 04-11-2021 Cardiovascular Lab Report [facility] Patient Name: [facility] S MR #: [id number] Department of Physician: [place] Rodas [place] Division of Service Date: 04/11/2021 Cardiology Birthdate: 1970 Adult Cardiovascular Room #: 5AB [id number] [place] [address] Cardiovascular Laboratory Report PROCEDURE PERFORMED: Transesophageal echocardiogram and cardioversion. INDICATION: Atrial flutter. FELLOW: Dunia Sierra MD PROCEDURE IN DETAIL: Informed consent was obtained from the patient after explaining the indication, risks, benefits, as well as alternatives. The patient understood and agreed, and signed the consent form. The patient was brought to the laborer syrup machine and transesophageal echocardiogram was performed, under conscious [...] Sierra MD Date Trans: 04/11/2021 12:53 P/marixa [id number] cc: Phillip Ann M.D. [address] [id number] Normal [facility] MAGNESIUM BLOODon 04-11-2021 Magnesium [Mass/Vol] 2.3 mg/dL Normal 1.9-2.7 [facility] Comment on above: Order Comment: No: D o not add to previous draw Performed By: #### 5 7307, 84514 #### [facility] [address] [place] [address], [facility] POC GLUCOSE LABon 04-11-2021 Glucose [Mass/Vol] 124 mg/dL High 70-100 [facility] Comment on above: Performed By: #### 5 7307, 65552 #### [facility] [address] [place] [address], [facility] TROPONIN-Ion 04-11-2021 Troponin I.cardiac [Mass/Vol] 0.06 ng/mL High 0.00-0.04 [facility] Comment on above: Order Comment: No: D o not add to previous draw Result Comment: REFE RENCE RANGES: 0.00 - 0.04 ng/ml NORMAL 0.05 - 0.50 ng/ml INDETERMINATE > 0.50 ng/ml CONSISTENT WITH AN M.I. Performed By: #### 5 7307, 86714 #### [facility] [address] *BLOOD CULTUREon 04-10-2021 *BLOOD CULTURE Clinical Report: (D) Specimen: BLOOD CULTURE Collected: 04/10/2021 09:50 Status: Final Last Updated: 04/15/2021 11:28 (1) Right hand CULT RES (Final) No Growth Day 5 Normal [facility] Comment on above: Order Comment: No: D o not add to previous draw Performed By: #### 5 7307, 00192 #### [facility] [address] *BLOOD CULTURE Clinical Report: (D) Specimen: BLOOD CULTURE Collected: 04/10/2021 09:50 Status: Final Last Updated: 04/15/2021 11:28 (1) Left hand CULT RES (Final) No Growth Day 5 Normal [facility] Comment on above: Order Comment: No: D o not add to previous draw Performed By: #### 5 7307, 50707 #### [facility] [address] *SARS-CoV-2 COVID-19on 04-10 SARS-CoV-2 (COVID-19) RNA DEIRDRE+probe Ql (Unsp spec) Not detected Normal Not Detected [facility] Comment on above: Order Comment: No: D o not add to previous draw Performed By: #### 5 7307, 41603 #### [facility] [address] APTTon 04-10-2021 aPTT Coag (Bld) [Time] 23.4 s Low 25.0-35.0 [facility] Comment on above: Order Comment: No: [...] THIS PURPOSE. Performed By: #### 5 7307, 05553 #### [facility] [address] [place] [address], [facility] aPTT Coag (Bld) [Time] 23.2 s Low 25.0-35.0 [facility] Comment on above: Order Comment: No: [...] THIS PURPOSE. Performed By: #### 5 7307, 45249 #### [facility] [address] [facility] [place] [address], [facility] BASIC METABOLIC PANELon 09-2 Calcium [Mass/Vol] 8.6 mg/dL Normal 8.6-10.3 [facility] Comment on above: Order Comment: No: D o not add to previous draw Performed By: #### 1 0070, 98185, 86327 #### [facility] [address] [facility] [place] [address], [facility] Chloride [Moles/Vol] 99 mmol/L Normal 98-107 [facility] Comment on above: Order Comment: No: D o not add to previous draw Performed By: #### 1 0070, 61717, 02056 #### [facility] [address] [place] [id number], [facility] CO2 [Moles/Vol] 32 mmol/L High 21-31 [facility] Comment on above: Order Comment: No: D o not add to previous draw Performed By: #### 1 0070, 23114, 27082 #### [facility] [address] [place] [address], [place] Creatinine [Mass/Vol] 0.84 mg/dL Normal 0.60-1.20 [facility] Comment on above: Order Comment: No: D o not add to previous draw Performed By: #### 1 0, 63058, 08593 #### [facility] [address] [place] [address], [place] GFR/1.73 sq M.predicted among blacks MDRD (S/P/Bld) [Vol rate/Area] mL/min/{1.73_m2} Normal >60 [facility] Comment on above: Order Comment: No: D o not add to previous draw Performed By: #### 1 0, 56071, 82708 #### [facility] [address] [place] [address], [place] GFR/1.73 sq M.predicted among non-blacks MDRD (S/P/Bld) [Vol rate/Area] mL/min/{1.73_m2} Normal >60 [facility] Comment on above: Order Comment: No: D o not add to previous draw Performed By: #### 1 69, 80548, 75260 #### [facility] [address] [place] [address], [place] Glucose [Mass/Vol] 117 mg/dL High 70-100 [facility] Comment on above: Order Comment: No: D o not add to previous draw Performed By: #### 1 0, 02268, 43264 #### [facility] [address] [place] [address], [place] Potassium [Moles/Vol] 3.9 mmol/L Normal 3.5-5.1 [facility] Comment on above: Order Comment: No: D o not add to previous draw Performed By: #### 1 0, 05509, 51903 #### [facility] [address] [place] [address], [facility] Sodium [Moles/Vol] 139 mmol/L Normal 136-145 [facility] Comment on above: Order Comment: No: D o not add to previous draw Performed By: #### 1 0070, 13172, 46369 #### [facility] [address] [facility] [place] [address], [facility] Urea nitrogen [Mass/Vol] 19 mg/dL Normal 7-25 [facility] Comment on above: Order Comment: No: D o not add to previous draw Performed By: #### 1 0070, 32286, 42401 #### [facility] [address] [facility]. [address] BNP (B-TYPE NATRIURETIC PEPT MARILYN)on 04-10-2021 Natriuretic peptide B (Bld) [Mass/Vol] 259 pg/mL High 0-100 [facility] Comment on above: Order Comment: No: D o not add to previous draw Result Comment: Give n the appropriate clinical setting a BNP result of >100 pg/mL indicates congestive heart failure. Performed By: #### 5 7307, 21137 #### [facility] [address] [facility] [place] [address], [facility] CBC W/DIFFon 04-10-2021 ABS IMM GRANS 1.1 10*3/uL High 0.0-0.[address] [facility] Comment on above: Performed By: #### 5 0103 #### [facility] [address] [facility] [place] [address], [facility] ABS NEUTROPHILS 9.6 10*3/uL High 1.6-7.6 [facility] Comment on above: Performed By: #### 5 0103 #### [facility] [address] [facility] [place] [address], [facility] ANISO MODERATE Normal [facility] Comment on above: Performed By: #### 5 0103 #### [facility] 3000 [facility] [place] [address], [facility] Basophils (Bld) [#/Vol] 0.1 10*3/uL Normal 0.0-0.2 [facility] Comment on above: Performed By: #### 5 0103 #### [facility] [address] [place] [address], [facility] Basophils/100 WBC (Bld) 0.7 % Normal 0.0-1.0 [facility] Comment on above: Performed By: #### 0103 #### [facility] [address] [place] [address], [facility] Eosinophils (Bld) [#/Vol] 0.1 10*3/uL Normal 0.0-0.5 [facility] Comment on above: Performed By: #### 3 #### [facility] [address] [facility] [place] [address], [facility] Eosinophils/100 WBC (Bld) 0.4 % Normal 0.0-6.0 [facility] Comment on above: Performed By: #### 3 #### THE SURGICAL [facility] 3000 [facility]. [address] Erythrocyte distribution width (RBC) [Ratio] 16.5 % High 11.5-15.0 The [facility] Comment on above: Performed By: #### 5 3 #### [facility] 3000 [facility], [place] [address], [facility] Hematocrit (Bld) [Volume fraction] 31.2 % Low 36.0-45.0 The [facility] Comment on above: Performed By: #### 5 3 #### [facility] 3000 [facility], [place] [address], [facility] Hemoglobin (Bld) [Mass/Vol] 9.0 g/dL Low 12.0-15.0 The [facility] Comment on above: Performed By: #### 5 3 #### [facility] [address] [place] [address], [facility] HYPO SLIGHT Normal The [facility] Comment on above: Performed By: #### 5 0103 #### [facility] 3000 [facility] [place]. [place] [id number], [facility] IMMATURE GRANS 6.8 % High 0.0-1.[address] [facility] Comment on above: Performed By: #### 5 0103 #### [facility] 3000 [facility] [place] [address], [facility] Lymphocytes (Bld) [#/Vol] 4.4 10*3/uL High 1.2-4.0 The [facility] Comment on above: Performed By: #### 5 0103 #### [facility] 3000 [facility] [place] [address], [facility] Lymphocytes/100 WBC (Bld) 26.4 % Normal 20.0-45.0 The [facility] Comment on above: Performed By: #### 5 0103 #### [facility] 3000 [facility] [place] [address], [facility] MCH (RBC) [Entitic mass] 25.3 pg Low 27.0-33.0 The [facility] Comment on above: Performed By: #### 5 0103 #### [facility] 3000 [facility] [place]. [place] [id number], [facility] MCHC (RBC) [Mass/Vol] 28.8 g/dL Low 32.0-35.0 The [facility] Comment on above: Performed By: #### 5 0103 #### [facility] 3000 [facility] [place] [address], [facility] MCV (RBC) [Entitic vol] 87.6 fL Normal 82.0-98.0 The [facility] Comment on above: Performed By: #### 5 0103 #### [facility] [address] [place] [address], [facility] Monocytes (Bld) [#/Vol] 1.3 10*3/uL High 0.1-1.0 The [facility] Comment on above: Performed By: #### 5 0103 #### [facility] [address] [facility] [place] [address], [facility] MONOS 7.6 % Normal 5.0-12.0 The [facility] Comment on above: Performed By: #### 5 0103 #### [facility] 3000 [facility] [place] [address], [facility] Neutrophils/100 WBC (Bld) 58.1 % Normal 40.0-72.0 The [facility] Comment on above: Performed By: #### 5 0103 #### [facility] [address] [facility] [place] [address], [facility] Nucleated RBC/100 WBC (Bld) [Ratio] 1 % High 0-0 The [facility] Comment on above: Performed By: #### 5 0103 #### [facility] 3000 [facility] [place] [address], [facility] PLAT CNT 483 10*3/uL High 150-400 The [facility] Comment on above: Performed By: #### 5 010 #### [facility] [address] [facility] [place] [address], [facility] POIK SLIGHT Normal The [facility] Comment on above: Performed By: #### 5 3 #### [facility] [address] [facility] [place] [address], [facility] POLY SLIGHT Normal The [facility] Comment on above: Performed By: #### 5 3 #### [facility] [address] [facility] [place] [address], [facility] RBC (Bld) [#/Vol] 3.56 10*6/uL Low 3.80-5.00 The [facility] Comment on above: Performed By: #### 5 3 #### [facility] [address] [facility] [place] [address], [facility] WBC (Bld) [#/Vol] 16.54 10*3/uL High 4.00-10.60 The [facility] Comment on above: Performed By: #### 5 0103 #### [facility] [address] [place] [address], [facility] LIPID PROFILEon 04-10-2021 Cholesterol [Mass/Vol] 161 mg/dL Normal 120-200 The [facility] Comment on above: Result Comment: CHOL ESTEROL REFERENCE RANGE: 20 YEARS AND OLDER CARDIOVASCULAR RISK Less than 200 mg/dl Low Risk 200 to 239 mg/dl Borderline Risk 240 mg/dl and greater High Risk Performed By: #### 3 1569, 02142, [id number] #### [facility] [address] [place] [address], [facility] Cholesterol in HDL [Mass/Vol] 61 mg/dL Normal 23-92 The [facility] Comment on above: Result Comment: Slig ht variation in normal range could be due to gender and/or age. HDL CHOLESTEROL REFERENCE RANGE: 20 years and older Cardiovascular Risk > or =60 mg/dL Desirable 40 TO 59 mg/dL Low Risk <40 mg/dL High Risk Performed By: #### 3 1569, [id number], 37633 #### [facility] [address] [place] [address], [facility] Cholesterol in LDL [Mass/Vol] 28 mg/dL Normal 0-130 The [facility] Comment on above: Result Comment: LDL IS A CALCULATION LDL IS ONLY VALID IF THE TRIG IS LESS THAN 400. Performed By: #### 3 1569, 75763, 55766 #### [facility] [address] [place] [address], [place] Cholesterol.total/Ch olesterol in HDL [Mass ratio] 2.6 {ratio} Normal .0-4.5 The [facility] Comment on above: Performed By: #### 3 1569, 53262, 97984 #### [facility] [address] [place] [address], [place] NON-HDL CHOLESTEROL 100 mg/dL Normal The [facility] Comment on above: Performed By: #### 3 1569, 09523, 18147 #### [facility] [address] [place] [address], [facility] Triglyceride [Mass/Vol] 362 mg/dL High 40-149 The [facility] Comment on above: Result Comment: TRIG LYCERIDE REFERENCE RANGE: 20 YEARS AND OLDER CARDIOVASCULAR RISK LESS THAN 150 mg/dl LOW RISK 150 TO 199 mg/dl BORDERLINE RISK 200 mg/dl AND GREATER HIGH RISK Performed By: #### 3 1569, 18980, 07187 #### [facility] [address] [place] [id number], [facility] VLDL CHOL 72 mg/dL High 0-40 The [facility] Comment on above: Performed By: #### 3 1569, 90798, 89236 #### [facility] [address] [place] [id number], [facility] MAGNESIUM BLOODon 04-10-2021 Magnesium [Mass/Vol] 2.4 mg/dL Normal 1.9-2.7 The [facility] Comment on above: Order Comment: No: D o not add to previous draw Performed By: #### 1 0070, 18899, 85760 #### [facility] [address] [place] [address], [facility] POC GLUCOSE LABon 04-10-2021 Glucose [Mass/Vol] 350 mg/dL High 70-100 The [facility] Comment on above: Performed By: #### 5 7307, 34542 #### [facility] [address] [place] [address], [place] Glucose [Mass/Vol] 249 mg/dL High 70-100 The [facility] Comment on above: Performed By: #### 5 7307, 47358 #### [facility] [address] [place] [address], [place] PROCALCITONINon 04-10-2021 PROCALCITONIN 0.09 ng/mL Normal 0.00-0.10 [facility] Comment on above: Order [...] initial PCT<0.5ng/mL Performed By: #### 5 7307, 71673 #### [address] PROTHROMBIN TIMEon 1 INR Coag (PPP) [Relative time] 1.07 {INR} Normal 0.91-1.16 The [facility] Comment on above: Order Comment: No: D o not add to previous draw Result Comment: [facility] P RECOMMENDED INR FOR WARFARIN THERAPY ------- [...] CHEST 1995;108:[id number]-246S. Performed By: #### 5 7307, 27484 #### [facility] [address] PT Coag (PPP) [Time] 13.9 s Normal 12.3-14.8 [facility] Comment on above: Order Comment: No: D o not add to previous draw Result Comment: ALL RESULTS MUST BE INTERPRETED WITH RESPECT TO BLOOD DRAWING ARTIFACT OR DILUTION ERROR OF ANTICOAGULANT AT THE TIME OF SAMPLING. Performed By: #### 5 7307, 51056 #### [facility] [address] [facility] [place] [address], [facility] TROPONIN-Ion 04-10-2021 Troponin I.cardiac [Mass/Vol] 0.07 ng/mL High 0.00-0.04 [facility] Comment on above: Order Comment: No: D o not add to previous draw Result Comment: REFE RENCE RANGES: 0.00 - 0.04 ng/ml NORMAL 0.05 - 0.50 ng/ml INDETERMINATE > 0.50 ng/ml CONSISTENT WITH AN M.I. Performed By: #### 3 3219, 81475, 78128 #### [facility] [address] [facility]. [address] Troponin I.cardiac [Mass/Vol] 0.07 ng/mL High 0.00-0.04 [facility] Comment on above: Order Comment: No: D o not add to previous draw Result Comment: REFE RENCE RANGES: 0.00 - 0.04 ng/ml NORMAL 0.05 - 0.50 ng/ml INDETERMINATE > 0.50 ng/ml CONSISTENT WITH AN M.I. Performed By: #### 1 0070, 22965, 96074 #### [facility] 3000 [facility]. [address] TSH3 WITH REFLEX FT4on 04-10 TSH 3RD GENERATION 0.95 uIU/mL Normal 0.34-5.60 The [facility] Comment on above: Order Comment: Yes: Add to Previous draw if able Performed By: #### 3 1569 #### [facility] 3000 [facility]. [address] TSH 3RD GENERATION 3.12 uIU/mL Normal 0.34-5.60 The [facility] Comment on above: Performed By: #### 3 1569, 61299, 14601 #### [facility] [address] [facility]. [address] UFH HEPARIN ASSAYon 04-10-20 21 UNFRACTIONATED HEPARIN >1.00 Critically high 0.30-0.70 The [facility] Comment on above: Result Comment: Resu lt checked and called. Accurately read back by Haven Avila RN at 1122 per RN patient may have previously been given Eliquis. UFH = 1.36 for pharmacy use Rivaroxaban and Apixaban will interfere with the anti Xa assay used to monitor UFH and LMWH. Performed By: #### 5 7307, 16585 #### [facility] [address] [facility]. [address] Cardiovascular Lab Reporton 01-30-2021 Cardiovascular Lab Report [facility] Patient Name: Diana Alvarez [facility] S MR #: [id number] Department of Physician: London Ross M.D. Division of Service Date: 01/30/2021 Cardiology Birthdate: 1970 Adult Cardiovascular Room #: [facility] [address] [place] [address] Cardiovascular Laboratory Report FINAL IMPRESSIONS: 1. Moderately [...] Follow up with Cardiology in the [facility] Cardiology office in the next 2 [...] right internal jugular vein was obtained. A 6-Bangladeshi glide sheath was inserted without difficulty. A [...] Bear M.D. Date Trans: 01/30/2021 02:48 P/mmo [id number] cc: Phillip Ann M.D. [address], [facility] [address] [facility] Vital Signs Date Time Vital Sign Value Performing Clinician Iman stafford 04-04-2024 13:58-0400 Blood Pressure Location Juan Miguel NILL [facility] Surgery [place] 04-04-2024 13:58-0400 Diastolic blood pressure 76 mm[Hg] Juan Miguel NILL [facility] 04-04-2024 13:58-0400 Heart rate 72 /min Juan Miguel NILL [facility] General Surgery [place] 04-04-2024 13:58-0400 Respiratory rate 16 /min Juan Miguel NILL [facility] 04-04-2024 13:58-0400 Systolic blood pressure 122 mm[Hg] Juan Miguel NILL [facility] 09-15-2022 15:24-0500 Blood Pressure Location Juan Miguel NILL [facility] [place] 09-15-2022 15:24-0500 Diastolic blood pressure 78 mm[Hg] Juan Miguel NILL [facility] Surgery [place] 09-15-2022 15:24-0500 Heart rate 70 /min Juan Miguel NILL [facility] Surgery [place] 09-15-2022 15:24-0500 Respiratory rate 16 /min Juan Miguel NILL [facility] Surgery [place] 09-15-2022 15:24-0500 Systolic blood pressure 116 mm[Hg] Juan Miguel NILL [facility] [place] Encounters Encounter Date Encounter Type Care Provider Facility Start: 09-12-2024 End: 09-12-2024 ambulatory [facility] Start: 06-09-2024 ambulatory [facility] Start: 05-24-2024 ambulatory [facility] Start: 04-19-2024 End: 04-19-2024 ambulatory Juan Miguel CHAVEZ Facility:[id number] Start: 04-17-[facility]24 [facility] Start: 04-13-2024 End: 04-13-2024 ambulatory [facility] Start: 04-13-2024 End: 04-13-2024 Encounter for other preprocedural examination [facility] Start: 04-04-2024 End: 04-04-2024 ambulatory Juan Miguel CHAVEZ Facility: [place] Start: 04-04-2024 End: 04-04-2024 Patient encounter procedure Juan Miguel CHAVEZ [facility] [place] Start: 01-11-2024 ambulatory [facility] Start: 12-28-2023 ambulatory [facility] Start: 10-26-2023 End: 10-26-2023 ambulatory [facility] Start: 11-17-2022 End: 11-17-2022 ambulatory EMILY ZHONG . Facility:[facility] Start: 10-28-2022 End: 10-28-[address] PHILLIP ANN . Facility:[facility] Start: 09-24-2022 End: 09-24-[address] PHILLIP ANN . Facility:[facility] Start: 09-15-2022 End: 09-15-2022 Patient encounter procedure Juan Miguel CHAVEZ General Surgery [facility]/Juan M Red Start: 09-09-2022 End: 09-10-2022 ambulatory [...] Start: 01-30-2021 End: 01-31-2021 ambulatory CASSY BEAR Facility:[facility] Procedures Date Procedure Procedure Detail Performing Clinician Start: 04-11-2021 Orthodox of Cardi ac Rhythm, Single SAMER Sony TORRES Start: 04-11-2021 ULTRASONOGRAPHY OF H EART WITH AORTA, TRANSESOPHAGEAL ABDELMONIEM MOUSTAFA section Juan Miguel Valerio section Juan Miguel Valerio Endoscopy of nose Juan Miguel MONTEZ Excision of cyst of breast Chiquis CHAVEZ History of radiofreq uency ablation operation for arrhythmia Juan Miguel CHAVEZ Implantation of inse rtable loop recorder Juan Miguel CHAVEZ Ligation of fallopian tube Chiquis CHAVEZ Plan of Treatment Date Care Activity Detail Author Start: 12-02-2022 ambulatory Ambulatory Facility:[facility] 1 Immunizations Immunization Date Immunization Notes Care Provider [facility] 04-18-2022 influenza virus vaccine, unspecified formulation Juan Miguel CittadinoL [facility] 10-29-2020 SARS-CoV-2 (COVID-19 ) mRNA-1273 vaccine Juan Miguel NILL [facility] 10-25-2020 SARS-CoV-2 (COVID-19 ) mRNA BNT-162b2 vax Tissue RegenixL [facility] Comment on above: Result Comment: 2022: [id number] 10-24-2020 SARS-CoV-2 (COVID-19 ) mRNA BNT-162b2 vax Tissue RegenixL [facility] 10-04-2020 SARS-CoV-2 (COVID-19 ) mRNA BNT-162b2 vax Tissue RegenixL [facility] Comment on above: Result Comment: 2022: [id number] 10-03-2020 SARS-CoV-2 (COVID-19 ) mRNA BNT-162b2 vax Tissue RegenixL [facility] Payers Date Payer Category Payer Unknown [id number] 1970 Unknown [id number] 2.16.8 [id number] 1970 Unknown [id number] 2.16.8 [id number] 1970 Unknown [id number] 2.16.84 0.1.240627.3.579.2.593 1970 Unknown [id number] 2.16.84 0.1.256518.3.579.2.593 1970 Unknown [id number] 2.16.84 0.1.323696.3.579.2.593 1970 Unknown [id number] 2.16.84 0.1.841155.3.579.2.593 1968 Unknown [id number] 2.16.84 0.1.961911.3.579.2.593 1968 Unknown [id number] 2.16.84 0.1.581153.3.579.2.593 1968 Unknown [id number] 2.16.84 0.1.876961.3.579.2.593 1968 Unknown [id number] 2.16.84 0.1.661159.3.579.2.593 1968 Unknown [id number] 2.16.84 0.1.074695.3.579.2.593 1968 Unknown [id number] 2.16.84 0.1.787530.3.579.2.593 1968 Unknown [id number] 2.16.84 0.1.109448.3.579.2.593 1968 Unknown [id number] 2.16.84 0.1.821014.3.579.2.593 1968 Unknown [id number] 2.16.84 0.1.054419.3.579.2.593 1968 Unknown [id number] 2.16.8 40.1.600118.3.579.2.727 1970 Unknown [id number] 2.16.8 40.1.656985.3.579.2.727 1961 Unknown [id number] 1961 Unknown [id number] 1961 Unknown [id number] 1961 Unknown [id number] Social History Date Type Detail Facility Start: 09-15-2022 End: 04-04-2024 Tobacco smoking status Ex-smoker (finding) [facility] [place] Tobacco smoking status Never Gener [facility] [place] Sex Assigned At Female [facility] Medical Equipment Procedure Code Equipment Code Equipment Origin al Text Equipment Identifier Dates lancets, glucome ter, alcohol swabs, testing strips, insulin pen needles, Print Requisition, Supply Start: 08-25-2021 lancets, glucome ter, alcohol swabs, testing strips, insulin pen needles, Print Requisition, Supply Start: 08-25-2021 Functional Status Date Assessment Result Facility 04-04-2024 Functional Status N/A [facility] [place] 09-15-2022 Functional Status N/A [facility] [facility] [place] Clinical Notes 04-12-2021 to 09-12-2024 Note Date & Type Note Facility 09-12-2024 Note [facility] Consul t Note Reason for visit: Palpitations, follow up, s/p loop implant 07/2021, s/p flutter ablation 08/18/2021 09/12/24 Patient here for 5 mo follow up PAF/flutter, pericardial effusion, and chronic diastolic heart failure. Denies chest pain, SOB, and bleeding on Eliquis. She has lost 80lbs on Ozempic. Loop data reveals multiple episodes of what is noted as SVT but the seem to be T wave oversensing. She has an elevated heart rate that runs in the 140s to 150s which appeared to be more like sinus tachycardia. Since the ablation she has followed up with Kristie Phillips and her blood pressure had been elevated which is being managed by her and today it is fairly well-controlled on lisinopril 5 mg daily and Toprol-XL 50 mg daily and Cardizem 240 mg daily. 05/05/23: Moiz MUNGUIA Loop data review: She has some episodes [...] trended upwards is a since seen in [place] [facility] 04/28/2023 and was diagnosed with vertigo [...] on file Food Insecurity: Not on file (more content not included)... [facility] 04-13-2024 Note Cardiovascular Medic ine [place] [facility] SUBJECTIVE Chief Complaint Patient presents with Pre-op Exam Atrial Fibrillation Hypertension Diana Alvarez is a 53 y.o. female here for follow-up. HPI PMHx: a.flutter/fib s/p loop implant 07/2021, s/p flutter ablation 08/18/2021, HFpEF, pericardial effusion noted since 2017, HTN, COPD, DM, HLD Hx LILLIANA - [...] trended upwards is a since seen in [place] [facility] 04/28/2023 and was diagnosed with vertigo [...] disease (CMS/HCC) C (more content not included)... [facility] 04-13-2024 Note Patient here for 6 m [...] All other systems reviewed and are negative. [facility] 04-04-2024 Note General Surgery Offi ce/Clinic Note [...] Diabetes Diverticulosis Ep (more content not included)... [facility] Comment on above: Result Comment: Elec tronically Signed By: BRAD DIAZ, Juan Miguel Rivera\Date and Time Signed: 04/04/24 17:16 EDT 10-26-2023 Note Patient here for 6 m [...] All other systems reviewed and are negative. [facility] 10-26-2023 Note Cardiovascular Medic ine [place] [facility] SUBJECTIVE Chief Complaint Patient presents with [...] trended upwards is a since seen in [place] [facility] 04/28/2023 and was diagnosed with vertigo [...] disease (CMS/HCC) Cystic kidney disease Depression Diabetes ([facility]/HCC) Diverticulosis Fibrocystic disease of breast Gout History of pericarditis IBS (irritable bowel syndrome) Insomnia Low back pain syndrome Migraines Mild aortic stenosis LILLIANA (obstructive sleep apnea) PAF (paroxysmal atrial fi (more content not included)... [facility] 11-17-2022 Note PROCEDURE: XR CHEST 1 [...] AUDREY BO Date: 2022-11-17 12:14 [facility] 04-12-2021 Note MR#: [id number] I [facility] Pt. Name: Diana Alvarez Admitted: 04/10/2021 Discharged: 04/11/2021 Date of : 1970 Physician: Albert Wick MD DISCHARGE SUMMARY PRIMARY DIAGNOSIS: New-onset atrial flutter with RVR. SECONDARY DIAGNOSES: 1. Pulmonary hypertension. 2. COPD. 3. Diabetes. HISTORY OF PRESENT ILLNESS: This patient is a 50-year-old female with past medical history of COPD, hypertension, and diabetes, who was sent from [facility] due to atrial flutter with RVR [...] Wick MD Date Trans: 04/12/2021 03:25 P/marixa [id number] cc: Phillip Ann M.D. [address] [place] [address] The [facility] Evaluation + Plan note No data available for this section [facility] [place] [facility] Discharge instructions No data available for this section General [facility] [place] Progress note No data available for this section General [facility] [place] Summary Purpose Family History No Family History Records FoundNo Family History Records FoundNo Family History Records FoundNo Family History Records Found No data available for this section No Family History Records Found Advance Directives No Advanced Directives Records FoundNo Advanced Directives Records FoundNo Advanced Directives Records FoundNo Advanced Directives Records FoundNo Advanced Directives Records Found Additional Source Comments INFORMATION SOURCE (unrecogn ized section and content) DATE CREATED AUTHOR 09/10/2021 [facility] DATE CREATED AUTHOR AUTHOR'S ORGANIZ ATION 12/24/2021 [facility] DATE CREATED AUTHOR AUTHOR'S ORGANIZ ATION 11/20/2022 [facility] DATE CREATED AUTHOR AUTHOR'S ORGANIZ ATION 05/01/2024 [facility] DATE CREATED AUTHOR AUTHOR'S ORGANIZ ATION 09/13/2024 [facility] Patient Care team informatio n (unrecognized section and content) Personnel Name: Phillip Ann MD Address: Address: [address] [place] [address] Personnel Name: Phillip Ann MD Address: Address: [address] [place] [address] FOR RECORDS PERTAINING TO PATIENTS WHO ARE [...] THE PRIMARY CLINICAL RECORDS. [facility] [employer] provides no warranty or guarantee of the accuracy or completeness of [phone] in [phone] [id number]
== END 2024-09-14 15:32 | disposition home or self-care (01) ==
LOC: RAD 15:32
PROVIDERS: PCP Family Medicine; Visit Provider Family Medicine
DX: R07.89 Other chest pain (principal)
CPT/HCPCS: 71046

== ENCOUNTER 2024-09-15 08:31 | Outpatient (OUT) | payer OTHER, SELFPAY ==
[2024-09-15 08:47] LABS: Basophils Percent Auto 0.4 % (0.2-2.0); Eosinophils Absolute Auto 0.1 10^3/uL (0.0-0.7); Eosinophils Percent Auto 1.1 % (0.9-7.0); Hematocrit 34.7 % (36.0-48.0); Hemoglobin 11.4 g/dL (12.0-16.0); Immature Granulocytes Abs Auto 0.02 10^3/uL (0.00-0.03); Immature Granulocytes Pct Auto 0.2 % (0.0-0.5); Lymphocytes Absolute Auto 2.3 10^3/uL (1.2-3.8); Lymphocytes Percent Auto 24.9 % (20.5-60.0); Mean Corpuscular HGB Conc 32.9 g/dL (29.9-35.2); Mean Corpuscular Hemoglobin 30.9 pg (26.7-34.0); Monocytes Absolute Auto 0.5 10^3/uL (0.3-0.8); Monocytes Percent Auto 5.3 % (1.7-12.0); Neutrophils Absolute Auto 6.2 10^3/uL (1.4-6.5); Neutrophils Percent Auto 68.1 % (43.0-75.0); Platelet Count 306 10^3/uL (150-450); Red Blood Count 3.69 10^6/uL (4.20-5.40); Red Cell Distribution Width 13.5 % (11.0-15.0); White Blood Count 9.2 10^3/uL (4.0-11.0)
--- OUTSIDE RECORDS SUMMARY | 2024-09-15 08:49 | XMS_ITS | CCD ---
Author Organization [facility] Care Team Providers Care System Administrator Name Role Phone CASSY BEAR A Admitting [...] Morphine; Translations: [morphine] Drug Allergy 9 [facility] Repository (1 source) 61027,00; Translations: [24687,00] Propensity to adverse reactions (disorder) 0 [facility] Repository (2 sources) Morphine; Translations: [morphine] Drug Allergy Feeling nervous (finding), Tachycardia (finding) General Surgery Neda (1 source) No Known Medication Allergies; Translations: [No Known Medication Allergies] Propensity to adverse reactions (disorder) [facility] Repository (1 source) dulaglutide; Translations: [DULAGLUTIDE] Drug Allergy [facility] Repository Medications Current Medications Medication Drug Class(es) Dates Sig (Normalized) Sig (Original) 3 ML semaglutide 2.68 MG/ML Pen Injector [Ozempic] (1 source) Start: 03-16-2024 inject 2 mg by subcutaneous injection every week Ozempic 8 mg/3 mL (2 mg dose) subcutaneous solution 2 mg, SubCutaneous, qWeek, Refills(s) 0 Start Date: 03/16/24 Status: Ordered [id number] 200 actuat albuterol 0.09 mg/actuat metered dose [...] disease (1 source) Atherosclerotic heart disease of [place] coronary artery without angina pectoris; Translations: [ASHD METLAKATLA CA W/O ANGINA PECTORIS] Onset: 08-11-2022 Chronic [...] Onset: 09-13-2022 Chronic Other aftercare (1 source) [facility] (current) use of anticoagulants; Translations: [SLITTER PROCESSED FILM CURRNT USE ANTICOAGULANTS] Onset: 11-19-2022 Episodic Other aftercare (1 source) 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; Translations: [OTH SLITTER PROCESSED FILM CURRENT DRUG THERAPY] Onset: 11-19-2022 Episodic Other [...] Interpretation Reference Range Facility Follow-Upon 09-12-2024 Follow-Up [id number] Diana Alvarez 1970 F Date Provider Department Center 09/12/2024 CURTIS VALDES TISH [facility] Family History Problem Relation Age of Onset Breast cancer Mother Aneurysm Mother Stroke Mother Heart attack Father Coronary artery disease Father Family Status - Relation Status Age at Mother Father Level of Service:99304 ME OFFICE/OUTPATIENT ESTABLISHED LOW MDM 20 MIN Normal [facility] Reminderson 04-20-2024 Reminders Reminders - From: Jacqueline Huerta LPN To: N - Clinical; Sent: 04/20/2024 11:34:18 EDT Show up: 03/20/2034 07:00:00 EDT Subject: colonoscopy recall Due Date/Time: 04/19/2034 07:00:00 EDT Reminder/Recall Patient due for screening colonoscopy 04/19/2034. Normal [facility] Office Visiton 04-13-2024 Follow-up visit [id number] Diana Alvarez 1970 F Date Provider Department Center 04/13/2024 JENNA ABREU TISH [facility] Family History Problem Relation Age of Onset Breast cancer Mother Aneurysm Mother Stroke Mother Heart attack Father Coronary artery disease Father Family Status - Relation Status Age at Mother Father Level of Service:76533 ME OFFICE/OUTPATIENT ESTABLISHED MOD MDM 30 MIN Reason for Visit and Comments: Pre-op Exam [651487] Atrial Fibrillation [80] Hypertension [629582] Normal [facility] Ambulatory Visit Summaryon 0 04-04-2024 Ambulatory [...] (Nervousness, Tachycardia) Problems (more content not included)... [facility] 36on 01-12-2024 36 BP is elevated. I encourage diet and routine exercise which can help her BP. In the mean time, would like to start her on lisinopril 5mg daily with follow-up BMP in 2 weeks. Thanks! [facility] 01-11-2024 36 Pt calling with bp's 156/83 133/78 147/80 146/78 157/72 148/80 120/80 [facility] 3612-23-2023 36 Regarding echo performed on 12/20/2023: [...] few weeks with readings. She verbalized understanding. [facility] Telephoneon 12-23-2023 Telephone [id number] Diana Alvarez 1970 F Date Provider Department Center 12/23/2023 MIGUEL ROMANO TISH [facility] Family History Problem Relation Age of Onset Breast cancer Mother Aneurysm Mother Stroke Mother Heart attack Father Coronary artery disease Father Family Status - Relation Status Age at Mother Father [facility] 3611-10-2023 36 Call reference # [id number]. - Approval # [id number] approved from 11/05/23 - 01/04/24. [facility] Office Visiton 10-26-2023 Follow-up visit [id number] Diana Alvarez 1970 F Date Provider Department Center 10/26/2023 JENNA ABREU CARD [facility] Family History Problem Relation Age of Onset Breast cancer Mother Aneurysm Mother Stroke Mother Heart attack Father Coronary artery disease Father Family Status - Relation Status Age at Mother Father Level of Service:43215 ME OFFICE/OUTPATIENT ESTABLISHED MOD MDM 30 MIN Reason for Visit and Comments: Atrial Flutter [101] Congestive Heart Failure [127] Normal [facility] CBC AUTO DIFFon 10-28-2022 BASO # 0.0 103/ul Normal 0.0-0.1 [facility] Comment on above: Performed By: #### L IPID, CMP, T4, TSH, FT3 #### [facility] [address] [place] [address] Dr. Mendel Herron Basophils/100 WBC (Bld) 0.2 % Normal 0.2-2.0 [facility] Comment on above: Performed By: #### L IPID, CMP, T4, TSH, FT3 #### [facility] [address] [place] [address] Dr. Mendel Herron EO # 0.0 103/ul Normal 0.0-0.7 [facility] Comment on above: Performed By: #### L IPID, CMP, T4, TSH, FT3 #### [facility] [address] [place] [address] Dr. Mendel Herron Eosinophils/100 WBC (Bld) 0.3 % Critically low 0.9-7.0 [facility] Comment on above: Performed By: #### L IPID, CMP, T4, TSH, FT3 #### [facility] [address] [place] [address] Dr. Mendel Herron Erythrocyte distribution width (RBC) [Ratio] 13.6 % Normal 11.0-15.0 [facility] Comment on above: Performed By: #### L IPID, CMP, T4, TSH, FT3 #### [facility] [address] [place] [address] Dr. Mendel Herron Hematocrit (Bld) [Volume fraction] 40.1 % Normal 36.0-48.0 [facility] Comment on above: Performed By: #### L IPID, CMP, T4, TSH, FT3 #### [facility] [address] [place] [address] Dr. Mendel Herron Hemoglobin (Bld) [Mass/Vol] 13.0 g/dL Normal 12.0-16.0 [facility] Comment on above: Performed By: #### L IPID, CMP, T4, TSH, FT3 #### [facility] [address] [place] [address] Dr. Mendel Herron IG # 0.06 10e3/ul Critically high 0.00-0.03 [facility] Comment on above: Performed By: #### L IPID, CMP, T4, TSH, FT3 #### [facility] [address] [place] [address] Dr. Mendel Herron IG % 0.5 % Normal 0.0-0.5 [facility] Comment on above: Performed By: #### L IPID, CMP, T4, TSH, FT3 #### [facility] [address] [place] [address] Dr. Mendel Herron LYMPH # 2.8 103/ul Normal 1.2-3.8 [facility] Comment on above: Performed By: #### L IPID, CMP, T4, TSH, FT3 #### [facility] [address] [place] [address] Dr. Mendel Herron Lymphocytes/100 WBC (Bld) 22.4 % Normal 20.5-60.0 [facility] Comment on above: Performed By: #### L IPID, CMP, T4, TSH, FT3 #### [facility] [address] [place] [address] Dr. Mendel Herron MANUAL DIFF REQ NO Normal [facility] Comment on above: Performed By: #### L IPID, CMP, T4, TSH, FT3 #### [facility] [address] [place] [address] Dr. Mendel Herron MCH (RBC) [Entitic mass] 30.8 pg Normal 26.7-34.0 [facility] Comment on above: Performed By: #### L IPID, CMP, T4, TSH, FT3 #### [facility] [address] [place] [address] Dr. Mendel Herron MCHC (RBC) [Mass/Vol] 32.4 g/dL Normal 29.9-35.2 [facility] Comment on above: Performed By: #### L IPID, CMP, T4, TSH, FT3 #### [facility] [address] [place] [address] Dr. Mendel Herron MCV (RBC) [Entitic vol] 95.0 fL Normal 81.0-99.0 [facility] Comment on above: Performed By: #### L IPID, CMP, T4, TSH, FT3 #### [facility] [address] [place] [address] Dr. Mendel Herron MONO # 0.9 103/ul Critically high 0.3-0.8 [facility] Comment on above: Performed By: #### L IPID, CMP, T4, TSH, FT3 #### [facility] [address] [place] [address] Dr. Mendel Herron Monocytes/100 WBC (Bld) 7.2 % Normal 1.7-12.0 [facility] Comment on above: Performed By: #### L IPID, CMP, T4, TSH, FT3 #### [facility] [address] [place] [address] Dr. Mendel Herron NEUT # 8.6 103/ul Critically high 1.4-6.5 [facility] Comment on above: Performed By: #### L IPID, CMP, T4, TSH, FT3 #### [facility] [address] [place] [address] Dr. Mendel Herron Neutrophils/100 WBC (Bld) 69.4 % Normal 43.0-75.0 [facility] Comment on above: Performed By: #### L IPID, CMP, T4, TSH, FT3 #### [facility] [address] [place] [address] Dr. Mendel Herron Platelet mean volume (Bld) [Entitic vol] 9.9 fL Normal 9.5-13.5 [facility] Comment on above: Performed By: #### L IPID, CMP, T4, TSH, FT3 #### [facility] [address] [address] [address] Mendel Herron PLT 297 103/ul Normal 150-450 [facility] Comment on above: Performed By: #### L IPID, CMP, T4, TSH, FT3 #### [facility] [address] [address] [address] Mendel Herron RBC 4.22 106/ul Normal 4.20-5.40 [facility] Comment on above: Performed By: #### L IPID, CMP, T4, TSH, FT3 #### [facility] [address] [address] [address] Mendel Herron WBC 12.4 103/ul Critically high 4.0-11.0 [facility] Comment on above: Performed By: #### L IPID, CMP, T4, TSH, FT3 #### [facility] [address] [address] [address] Mendel Herron CRPon 10-28-2022 CRP 1.3 mg/dL Critically high <=1.[address] [facility] Comment on above: Performed By: #### L IPID, CMP, T4, TSH, FT3 #### [facility] [address] [place] [address] Dr. Mendel Herron PROF CHEM 8 (BAS METB)on Anion gap [Moles/Vol] 13.6 mmol/L Normal [facility] Comment on above: Performed By: #### L IPID, CMP, T4, TSH, FT3 #### [facility] [address] [address] [address] Mendel Herron Calcium [Mass/Vol] 9.3 mg/dL Normal 8.5-10.1 [facility] Comment on above: Performed By: #### L IPID, CMP, T4, TSH, FT3 #### [facility] [address] [place] [address] Dr. Mendel Herron Chloride [Moles/Vol] 102 mmol/L Normal 98-107 [facility] Comment on above: Performed By: #### L IPID, CMP, T4, TSH, FT3 #### [facility] [address] [address] [address] Mendel Herron CO2 [Moles/Vol] 30.7 mmol/L Normal 21.0-32.0 [facility] Comment on above: Performed By: #### L IPID, CMP, T4, TSH, FT3 #### [facility] [address] [address] [address] Mendel Herron Creatinine [Mass/Vol] 0.85 mg/dL Normal 0.55-1.02 [facility] Comment on above: Performed By: #### L IPID, CMP, T4, TSH, FT3 #### [facility] [address] [place] [address] Dr. Mendel Herron EGFR-AF BRUNEIAN >60 Normal >=60 [facility] Comment on above: Performed By: #### L IPID, CMP, T4, TSH, FT3 #### [facility] [address] [place] [address] Dr. Mendel Herron EGFR-NON AF BRUNEIAN >60 Normal >=60 [facility] Comment on above: Performed By: #### L IPID, CMP, T4, TSH, FT3 #### [facility] [address] [place] [address] Dr. Mendel Herron Glucose [Mass/Vol] 101 mg/dL Normal 74-106 [facility] Comment on above: Performed By: #### L IPID, CMP, T4, TSH, FT3 #### [facility] [address] [place] [address] Dr. Mendel Herron Potassium [Moles/Vol] 3.3 mmol/L Critically low 3.5-5.1 [facility] Comment on above: Performed By: #### L IPID, CMP, T4, TSH, FT3 #### [facility] [address] [place] [address] Dr. Mendel Herron Sodium [Moles/Vol] 143 mmol/L Normal 136-145 [facility] Comment on above: Performed By: #### L IPID, CMP, T4, TSH, FT3 #### [facility] [address] [address] [address] Mendel Herron Urea nitrogen [Mass/Vol] 12.0 mg/dL Normal 7.0-18.0 [facility] Comment on above: Performed By: #### L IPID, CMP, T4, TSH, FT3 #### [facility] [address] [address] [address] Mendel Herron Urea nitrogen/Creatinine [Mass ratio] 14.1 mg/mg Normal [facility] Comment on above: Performed By: #### L IPID, CMP, T4, TSH, FT3 #### [facility] [address] [address] [address] Mendel Herron URIC ACID SERUMon 10-28-2022 Urate [Mass/Vol] 7.8 mg/dL Critically high 2.6-6.0 [facility] Comment on above: Performed By: #### L IPID, CMP, T4, TSH, FT3 #### [facility] [address] [address] [address] Mendel Herron XR TOES RT MIN [...] GAIL PELLETIER Date: 2022-10-28 20:53 Normal [facility]on SARS-CoV-2 (COVID-19) RNA DEIRDRE+probe Ql (Unsp spec) Not detected Normal NOT DETECTED [facility] Comment on above: Result Comment: [...] for this test is supported by the Washer Assembler of Health and Human Service's declaration that [...] L IPID, CMP, T4, TSH, FT3 #### [facility] [address] [place] [address] Dr. Mendel Herron CBC AUTO DIFFon 09-09-2022 BASO # 0.1 103/ul Normal 0.0-0.1 [facility] Comment on above: Performed By: #### L IPID, CMP, T4, TSH, FT3 #### [facility] [address] [place] [address] Dr. Mendel Herron Basophils/100 WBC (Bld) 0.7 % Normal 0.2-2.0 [facility] Comment on above: Performed By: #### L IPID, CMP, T4, TSH, FT3 #### [facility] [address] [place] [address] Dr. Mendel Herron EO # 0.1 103/ul Normal 0.0-0.7 [facility] Comment on above: Performed By: #### L IPID, CMP, T4, TSH, FT3 #### [facility] [address] [place] [address] Dr. Mendel Herron Eosinophils/100 WBC (Bld) 0.7 % Critically low 0.9-7.0 [facility] Comment on above: Performed By: #### L IPID, CMP, T4, TSH, FT3 #### [facility] [address] [place] [address] Dr. Mendel Herron Erythrocyte distribution width (RBC) [Ratio] 13.1 % Normal 11.0-15.0 [facility] Comment on above: Performed By: #### L IPID, CMP, T4, TSH, FT3 #### [facility] [address] [place] [address] Dr. Mendel Herron Hematocrit (Bld) [Volume fraction] 43.7 % Normal 36.0-48.0 [facility] Comment on above: Performed By: #### L IPID, CMP, T4, TSH, FT3 #### [facility] [address] [address] [address] Mendel Herron Hemoglobin (Bld) [Mass/Vol] 14.4 g/dL Normal 12.0-16.0 [facility] Comment on above: Performed By: #### L IPID, CMP, T4, TSH, FT3 #### [facility] [address] [place] [address] Dr. Mendel Herron IG # 0.11 10e3/ul Critically high 0.00-0.03 [facility] Comment on above: Performed By: #### L IPID, CMP, T4, TSH, FT3 #### [facility] [address] [place] [address] Dr. Mendel Herron IG % 1.3 % Critically high 0.0-0.[address] [facility] Comment on above: Performed By: #### L IPID, CMP, T4, TSH, FT3 #### [facility] [address] [place] [address] Dr. Mendel Herron LYMPH # 2.4 103/ul Normal 1.2-3.8 [facility] Comment on above: Performed By: #### L IPID, CMP, T4, TSH, FT3 #### [facility] [address] [place] [address] Dr. Mendel Herron Lymphocytes/100 WBC (Bld) 27.9 % Normal 20.5-60.0 [facility] Comment on above: Performed By: #### L IPID, CMP, T4, TSH, FT3 #### [facility] [address] [place] [address] Dr. Mendel Herron MANUAL DIFF REQ NO Normal [facility] Comment on above: Performed By: #### L IPID, CMP, T4, TSH, FT3 #### [facility] [address] [place] [address] Dr. Mendel Herron MCH (RBC) [Entitic mass] 31.0 pg Normal 26.7-34.0 [facility] Comment on above: Performed By: #### L IPID, CMP, T4, TSH, FT3 #### [facility] [address] [place] [address] Dr. Mendel Herron MCHC (RBC) [Mass/Vol] 33.0 g/dL Normal 29.9-35.2 [facility] Comment on above: Performed By: #### L IPID, CMP, T4, TSH, FT3 #### [facility] [address] [place] [address] Dr. Mendel Herron MCV (RBC) [Entitic vol] 94.0 fL Normal 81.0-99.0 [facility] Comment on above: Performed By: #### L IPID, CMP, T4, TSH, FT3 #### [facility] [address] [place] [address] Dr. Mendel Herron MONO # 0.5 103/ul Normal 0.3-0.8 [facility] Comment on above: Performed By: #### L IPID, CMP, T4, TSH, FT3 #### [facility] [address] [place] [address] Dr. Mendel Herron Monocytes/100 WBC (Bld) 6.0 % Normal 1.7-12.0 [facility] Comment on above: Performed By: #### L IPID, CMP, T4, TSH, FT3 #### [facility] [address] [place] [address] Dr. Mendel Herron NEUT # 5.4 103/ul Normal 1.4-6.5 [facility] Comment on above: Performed By: #### L IPID, CMP, T4, TSH, FT3 #### [facility] [address] [place] [address] Dr. Mendel Herron Neutrophils/100 WBC (Bld) 63.4 % Normal 43.0-75.0 [facility] Comment on above: Performed By: #### L IPID, CMP, T4, TSH, FT3 #### [facility] [address] [address] [address] Mendel Herron Platelet mean volume (Bld) [Entitic vol] 9.8 fL Normal 9.5-13.5 [facility] Comment on above: Performed By: #### L IPID, CMP, T4, TSH, FT3 #### [facility] [address] [place] [address] Dr. Mendel Herron PLT 398 103/ul Normal 150-450 [facility] Comment on above: Performed By: #### L IPID, CMP, T4, TSH, FT3 #### [facility] [address] [place] [address] Dr. Mendel Herron RBC 4.65 106/ul Normal 4.20-5.40 [facility] Comment on above: Performed By: #### L IPID, CMP, T4, TSH, FT3 #### [facility] [address] [address] [address] Mendel Herron WBC 8.6 103/ul Normal 4.0-11.0 [facility] Comment on above: Performed By: #### L IPID, CMP, T4, TSH, FT3 #### [facility] [address] [place] [address] Dr. Mendel Herron FREE T3on 09-09-2022 FREE T3 2.59 pg/mlL Normal 2.18-3.98 [facility] Comment on above: Performed By: #### L IPID, CMP, T4, TSH, FT3 #### [facility] [address] [place] [address] Dr. Mendel Herron GLYCOHEMOGLOBIN A1Con 2022 ADA RECOMMENDATION SEE BELOW Normal [facility] Comment on above: Result Comment: ADA RECOMMENDED LIMIT 4.0 - 6.0 ADA THERAPEUTIC TARGET < 7.0 ACTION SUGGESTED > 7.0 Performed By: #### A 1C #### [facility] [address] [address] [address] Mendel Herron Glucose [Mass/Vol] 120 mg/dL Normal [facility] Comment on above: Performed By: #### A 1C #### [facility] [address] [place] [address] Dr. Mendel Herron HbA1c (Bld) [Mass fraction] 5.8 % Normal 4.5-6.2 [facility] Comment on above: Performed By: #### A 1C #### [facility] [address] [place] [address] Dr. Mendel Herron LIPID PROFILEon 09-09-2022 CHOL-HDL RATIO NORM SEE BELOW Normal [facility] Comment on above: Result Comment: 3.3 - 4.4 LOW RISK 4.4 - 7.1 AVERAGE RISK 7.1 - 11.0 MODERATE RISK >11.0 HIGH RISK Performed By: #### L IPID, CMP, T4, TSH, FT3 #### [facility] [address] [place] [address] Dr. Mendel Herron Cholesterol [Mass/Vol] 308 mg/dL Critically high <=200 [facility] Comment on above: Performed By: #### L IPID, CMP, T4, TSH, FT3 #### [facility] [address] [place] [address] Dr. Mendel Herron Cholesterol in HDL [Mass/Vol] 46 mg/dL Normal 40-60 [facility] Comment on above: Performed By: #### L IPID, CMP, T4, TSH, FT3 #### [facility] [address] [place] [address] Dr. Mendel Herron Cholesterol in LDL [Mass/Vol] 212.6 mg/dL Normal [facility] Comment on above: Performed By: #### L IPID, CMP, T4, TSH, FT3 #### [facility] [address] [place] [address] Dr. Mendel Herron Cholesterol.total/Ch olesterol in HDL [Mass ratio] 6.7 {ratio} Normal [facility] Comment on above: Performed By: #### L IPID, CMP, T4, TSH, FT3 #### [facility] [address] [address] [address] Mendel Herron HDL NORMAL > or = 60 mg/dl - LOW CARDIOVASCULAR RISK <40 mg/dl - HIGH CARDIOVASCULAR RISK Normal [facility] Comment on above: Performed By: #### L IPID, CMP, T4, TSH, FT3 #### [facility] [address] [address] [address] Mendel Herron LDL CALC NORMAL SEE BELOW Normal [facility] Comment on above: Result Comment: <100 mg/dl OPTIMAL 100 - 129 mg/dl NEAR OR ABOVE OPTIMAL 130 - 159 mg/dl BORDERLINE HIGH 160 - 189 mg/dl HIGH >190 mg/dl VERY HIGH Performed By: #### L IPID, CMP, T4, TSH, FT3 #### [facility] [address] [address] [address] Mendel Herron Triglyceride [Mass/Vol] 247 mg/dL Critically high <=150 [facility] Comment on above: Performed By: #### L IPID, CMP, T4, TSH, FT3 #### [facility] [address] [address] [address] Mendel Herron VLDL CALC 49.4 mg/dL Normal [facility] Comment on above: Performed By: #### L IPID, CMP, T4, TSH, FT3 #### [facility] [address] [address] [address] Mendel Herron PROF 14(COMP METB)on 023 Albumin [Mass/Vol] 4.0 g/dL Normal 3.4-5.0 [facility] Comment on above: Performed By: #### L IPID, CMP, T4, TSH, FT3 #### [facility] [address] [address] [address] Mendel Herron Albumin/Globulin [Mass ratio] 0.9 {ratio} Normal [facility] Comment on above: Performed By: #### L IPID, CMP, T4, TSH, FT3 #### [facility] [address] [address] [address] Mendel Herron ALP [Catalytic activity/Vol] 115 U/L Normal 46-116 [facility] Comment on above: Performed By: #### L IPID, CMP, T4, TSH, FT3 #### [facility] [address] [place] [address] Dr. Mendel Herron ALT [Catalytic activity/Vol] 30 U/L Normal 14-59 [facility] Comment on above: Performed By: #### L IPID, CMP, T4, TSH, FT3 #### [facility] [address] [place] [address] Dr. Mendel Herron Anion gap [Moles/Vol] 12.7 mmol/L Normal [facility] Comment on above: Performed By: #### L IPID, CMP, T4, TSH, FT3 #### [facility] [address] [place] [address] Dr. Mendel Herron AST [Catalytic activity/Vol] 18 U/L Normal 15-37 [facility] Comment on above: Performed By: #### L IPID, CMP, T4, TSH, FT3 #### [facility] [address] [place] [address] Dr. Mendel Herron Bilirubin [Mass/Vol] 0.7 mg/dL Normal 0.2-1.0 [facility] Comment on above: Performed By: #### L IPID, CMP, T4, TSH, FT3 #### [facility] [address] [place] [address] Dr. Mendel Herron Calcium [Mass/Vol] 9.7 mg/dL Normal 8.5-10.1 [facility] Comment on above: Performed By: #### L IPID, CMP, T4, TSH, FT3 #### [facility] [address] [place] [address] Dr. Mendel Herron Chloride [Moles/Vol] 103 mmol/L Normal 98-107 [facility] Comment on above: Performed By: #### L IPID, CMP, T4, TSH, FT3 #### [facility] [address] [place] [address] Dr. Mendel Herron CO2 [Moles/Vol] 26.5 mmol/L Normal 21.0-32.0 [facility] Comment on above: Performed By: #### L IPID, CMP, T4, TSH, FT3 #### [facility] [address] [place] [address] Dr. Mendel Herron Creatinine [Mass/Vol] 0.83 mg/dL Normal 0.55-1.02 [facility] Comment on above: Performed By: #### L IPID, CMP, T4, TSH, FT3 #### [facility] [address] [place] [address] Dr. Mendel Herron EGFR-AF BRUNEIAN >60 Normal >=60 [facility] Comment on above: Performed By: #### L IPID, CMP, T4, TSH, FT3 #### [facility] [address] [place] [address] Dr. Mendel Herron EGFR-NON AF BRUNEIAN >60 Normal >=60 [facility] Comment on above: Performed By: #### L IPID, CMP, T4, TSH, FT3 #### [facility] [address] [place] [address] Dr. Mendel Herron Globulin (S) [Mass/Vol] 4.4 g/dL Normal [facility] Comment on above: Performed By: #### L IPID, CMP, T4, TSH, FT3 #### [facility] [address] [place] [address] Dr. Mendel Herron Glucose [Mass/Vol] 97 mg/dL Normal 74-106 [facility] Comment on above: Performed By: #### L IPID, CMP, T4, TSH, FT3 #### [facility] [address] [place] [address] Dr. Mendel Herron Potassium [Moles/Vol] 4.2 mmol/L Normal 3.5-5.1 [facility] Comment on above: Performed By: #### L IPID, CMP, T4, TSH, FT3 #### [facility] [address] [place] [address] Dr. Mendel Herron Protein [Mass/Vol] 8.4 g/dL Critically high 6.4-8.2 [facility] Comment on above: Performed By: #### L IPID, CMP, T4, TSH, FT3 #### [facility] [address] [place] [address] Dr. Mendel Herron Sodium [Moles/Vol] 138 mmol/L Normal 136-145 [facility] Comment on above: Performed By: #### L IPID, CMP, T4, TSH, FT3 #### [facility] [address] [place] [address] Dr. Mendel Herron Urea nitrogen [Mass/Vol] 12.0 mg/dL Normal 7.0-18.0 [facility] Comment on above: Performed By: #### L IPID, CMP, T4, TSH, FT3 #### [facility] [address] [place] [address] Dr. Mendel Herron Urea nitrogen/Creatinine [Mass ratio] 14.5 mg/mg Normal [facility] Comment on above: Performed By: #### L IPID, CMP, T4, TSH, FT3 #### [facility] [address] [place] [address] Dr. Mendel Herron T4on 09-09-2022 T4 [Mass/Vol] 8.80 ug/dL Normal 4.80-13.90 [facility] Comment on above: Performed By: #### L IPID, CMP, T4, TSH, FT3 #### [facility] [address] [place] [address] Dr. Mendel Herron TSHon 09-09-2022 TSH 0.898 uIU/mL Normal 0.358-3.740 [facility] Comment on above: Performed By: #### L IPID, CMP, T4, TSH, FT3 #### [facility] [address] [place] [address] Dr. Mendel Herron VITAMIN D 25 OHon 09-09-2022 VIT D 25-OH 24.0 ng/mL Normal [facility] Comment on above: Performed By: #### L IPID, CMP, T4, TSH, FT3 #### [facility] [address] [place] [address] Dr. Mendel Herron VIT D RANGES SEE BELOW Normal [facility] Comment on above: Result Comment: <20 ng/mL Vit D deficient 20 - <30 ng/mL Vit D insufficient 30 - 100 ng/mL Vit D sufficient >100 ng/mL Potential Toxicity Performed By: #### L IPID, CMP, T4, TSH, FT3 #### [facility] [address] [address] [address] Mendel Herron NM HEPATOBILIARY SCAN W [...] VIVI GARY Date: 2022-08-20 16:07 Normal [facility] US SINGLE QUAD RT UPPERon [...] JEAN LOPES Date: 2022-08-11 15:50 Normal [facility] CARDIAC SUBHA ADMITon 023 CK [Catalytic activity/Vol] 30 U/L Normal 26-192 [facility] Comment on above: Performed By: #### L IPID, CMP, T4, TSH, FT3 #### [facility] [address] [address] [address] Mendel Herron CK.MB [Mass/Vol] 1.02 ng/mL Normal <=3.60 [facility] Comment on above: Performed By: #### L IPID, CMP, T4, TSH, FT3 #### [facility] [address] [address] [address] Mendel Herron HSTROP 32.8 pg/mL Normal 4.0-51.3 [facility] Comment on above: Result Comment: CUT- OFF POINTS HAVE BEEN ESTABLISHED BASED ON THE FOURTH UNIVERSAL DEFINITIONS OF MYOCARDIAL INFARCTION. THE UPPER REFERENCE LIMIT (URL) OF TROPONIN, DEFINED THE 99TH PERCENTILE OF cTnI DISTRIBUTION IN A REFERENCE POPULATION, HAS BEEN CONFIRMED THE DECISION THRESHOLD FOR HI DIAGNOSIS. Performed By: #### L IPID, CMP, T4, TSH, FT3 #### [facility] [address] [address] [address] Mendel Herron SONYA 23 ng/mL Normal 9-82 [facility] Comment on above: Performed By: #### L IPID, CMP, T4, TSH, FT3 #### [facility] [address] [address] [address] Mendel Herron CBC AUTO DIFFon 08-09-2022 BASO # 0.0 103/ul Normal 0.0-0.1 [facility] Comment on above: Performed By: #### L IPID, CMP, T4, TSH, FT3 #### [facility] [address] [place] [address] Dr. Mendel Herron Basophils/100 WBC (Bld) 0.3 % Normal 0.2-2.0 [facility] Comment on above: Performed By: #### L IPID, CMP, T4, TSH, FT3 #### [facility] [address] [place] [address] Dr. Mendel Herron EO # 0.0 103/ul Normal 0.0-0.7 [facility] Comment on above: Performed By: #### L IPID, CMP, T4, TSH, FT3 #### [facility] [address] [place] [address] Dr. Mendel Herron Eosinophils/100 WBC (Bld) 0.3 % Critically low 0.9-7.0 [facility] Comment on above: Performed By: #### L IPID, CMP, T4, TSH, FT3 #### [facility] [address] [place] [address] Dr. Mendel Herron Erythrocyte distribution width (RBC) [Ratio] 13.1 % Normal 11.0-15.0 [facility] Comment on above: Performed By: #### L IPID, CMP, T4, TSH, FT3 #### [facility] [address] [place] [address] Dr. Mendel Herron Hematocrit (Bld) [Volume fraction] 42.7 % Normal 36.0-48.0 [facility] Comment on above: Performed By: #### L IPID, CMP, T4, TSH, FT3 #### [facility] [address] [place] [address] Dr. Mendel Herron Hemoglobin (Bld) [Mass/Vol] 15.4 g/dL Normal 12.0-16.0 [facility] Comment on above: Performed By: #### L IPID, CMP, T4, TSH, FT3 #### [facility] [address] [place] [address] Dr. Mendel Herron IG # 0.05 10e3/ul Critically high 0.00-0.03 [facility] Comment on above: Performed By: #### L IPID, CMP, T4, TSH, FT3 #### [facility] [address] [place] [address] Dr. Mendel Herron IG % 0.4 % Normal 0.0-0.5 [facility] Comment on above: Performed By: #### L IPID, CMP, T4, TSH, FT3 #### [facility] [address] [place] [address] Dr. Mendel Herron LYMPH # 2.5 103/ul Normal 1.2-3.8 [facility] Comment on above: Performed By: #### L IPID, CMP, T4, TSH, FT3 #### [facility] [address] [place] [address] Dr. Mendel Herron Lymphocytes/100 WBC (Bld) 21.2 % Normal 20.5-60.0 [facility] Comment on above: Performed By: #### L IPID, CMP, T4, TSH, FT3 #### [facility] [address] [place] [address] Dr. Mendel Herron MANUAL DIFF REQ NO Normal [facility] Comment on above: Performed By: #### L IPID, CMP, T4, TSH, FT3 #### [facility] [address] [place] [address] Dr. Mendel Herron MCH (RBC) [Entitic mass] 31.7 pg Normal 26.7-34.0 [facility] Comment on above: Performed By: #### L IPID, CMP, T4, TSH, FT3 #### [facility] [address] [place] [address] Dr. Mendel Herron MCHC (RBC) [Mass/Vol] 36.1 g/dL Critically high 29.9-35.2 [facility] Comment on above: Performed By: #### L IPID, CMP, T4, TSH, FT3 #### [facility] [address] [place] [address] Dr. Mendel Herron MCV (RBC) [Entitic vol] 87.9 fL Normal 81.0-99.0 [facility] Comment on above: Performed By: #### L IPID, CMP, T4, TSH, FT3 #### [facility] [address] [address] [address] Mendel Herron MONO # 0.7 103/ul Normal 0.3-0.8 [facility] Comment on above: Performed By: #### L IPID, CMP, T4, TSH, FT3 #### [facility] [address] [place] [address] Dr. Mendel Herron Monocytes/100 WBC (Bld) 6.3 % Normal 1.7-12.0 [facility] Comment on above: Performed By: #### L IPID, CMP, T4, TSH, FT3 #### [facility] [address] [place] [address] Dr. Mendel Herron NEUT # 8.4 103/ul Critically high 1.4-6.[address] [facility] Comment on above: Performed By: #### L IPID, CMP, T4, TSH, FT3 #### [facility] [address] [place] [address] Dr. Mendel Herron Neutrophils/100 WBC (Bld) 71.5 % Normal 43.0-75.0 [facility] Comment on above: Performed By: #### L IPID, CMP, T4, TSH, FT3 #### [facility] [address] [place] [address] Dr. Mendel Herron Platelet mean volume (Bld) [Entitic vol] 9.8 fL Normal 9.5-13.5 [facility] Comment on above: Performed By: #### L IPID, CMP, T4, TSH, FT3 #### [facility] [address] [place] [address] Dr. Mendel Herron PLT 374 103/ul Normal 150-450 [facility] Comment on above: Performed By: #### L IPID, CMP, T4, TSH, FT3 #### [facility] [address] [place] [address] Dr. Mendel Herron RBC 4.86 106/ul Normal 4.20-5.40 [facility] Comment on above: Performed By: #### L IPID, CMP, T4, TSH, FT3 #### [facility] [address] [place], [place] [address] Dr. Mendel Herron WBC 11.7 103/ul Critically high 4.0-11.0 [facility] Comment on above: Performed By: #### L IPID, CMP, T4, TSH, FT3 #### [facility] [address] [place], [place] [address] HEAD WO CONon [...] HELLEN VELAZQUEZ Date: 2022-08-09 15:23 Normal [facility] Covid-19 PCR (CVDTB)on 07-20 SARS-CoV-2 (COVID-19) RNA DEIRDRE+probe Ql (Unsp spec) Not detected Normal NOT DETECTED [facility] Comment on above: Result Comment: [...] for this test is supported by the [place] of Health and Human Service's declaration that [...] L IPID, CMP, T4, TSH, FT3 #### [facility] [address] [place] [address] Dr. Mendel Herron ER URINE PROFILEon 3 Bilirubin Ql (U) Negative Normal NEGATIVE [facility] Comment on above: Performed By: #### L IPID, CMP, T4, TSH, FT3 #### [facility] [address] [place] [address] Dr. Mendel Herron Clarity (U) CLEAR Normal CLEAR [facility] Comment on above: Performed By: #### L IPID, CMP, T4, TSH, FT3 #### [facility] [address] [place] [address] Dr. Mendel Herron Color (U) LT. YELLOW Normal YELLOW [facility] Comment on above: Performed By: #### L IPID, CMP, T4, TSH, FT3 #### [facility] [address] [place] [address] Dr. Mendel Herron ERUAHD A micrscopic examination will be performed if indicated. Normal [facility] Comment on above: Performed By: #### L IPID, CMP, T4, TSH, FT3 #### [facility] [address] [place] [address] Dr. Mendel Herron Glucose Ql (U) Negative Normal NEGATIVE [facility] Comment on above: Performed By: #### L IPID, CMP, T4, TSH, FT3 #### [facility] [address] [place] [address] Dr. Mendel Herron Hemoglobin Ql (U) TRACE-INTACT Abnormal NEGATIVE [facility] Comment on above: Performed By: #### L IPID, CMP, T4, TSH, FT3 #### [facility] [address] [place] [address] Dr. Mendel Herron Ketones Ql (U) Negative Normal NEGATIVE [facility] Comment on above: Performed By: #### L IPID, CMP, T4, TSH, FT3 #### [facility] [address] [place] [address] Dr. Mendel Herron LEUKOCYTES Negative Normal NEGATIVE [facility] Comment on above: Performed By: #### L IPID, CMP, T4, TSH, FT3 #### [facility] [address] [place] [address] Dr. Mendel Herron Nitrite Ql (U) Negative Normal NEGATIVE [facility] Comment on above: Performed By: #### L IPID, CMP, T4, TSH, FT3 #### [facility] [address] [place] [address] Dr. Mendel Herron pH (U) 5.0 [pH] Normal 5-9 [facility] Comment on above: Performed By: #### L IPID, CMP, T4, TSH, FT3 #### [facility] [address] [place] [address] Dr. Mendel Herron SPEC GRAVITY 1.015 Normal 1.005-<=1.[address] [facility] Comment on above: Performed By: #### L IPID, CMP, T4, TSH, FT3 #### [facility] [address] [place] [address] Dr. Mendel Herron UA PROTEIN Negative Normal NEGATIVE/ TRACE [facility] Comment on above: Performed By: #### L IPID, CMP, T4, TSH, FT3 #### [facility] [address] [place] [address] Dr. Mendel Herron UR MICRO IND INDICATED Normal [facility] Comment on above: Performed By: #### L IPID, CMP, T4, TSH, FT3 #### [facility] [address] [place] [address] Dr. Mendel Herron Urobilinogen Qn (U) 0.2 {James'U}/dL Normal 0.2 - 1. 0 [facility] Comment on above: Performed By: #### L IPID, CMP, T4, TSH, FT3 #### [facility] [address] [address] [address] Mendel Herron LIPASEon 08-09-2022 Lipase [Catalytic activity/Vol] 114.0 U/L Normal 73.0-393.0 [facility] Comment on above: Performed By: #### L IPA, BMP, CMADM #### [facility] [address] [address] [address] Mendel Herron PROF CHEM 8 (BAS METB)on Anion gap [Moles/Vol] 18.9 mmol/L Normal [facility] Comment on above: Performed By: #### L IPA, BMP, CMADM #### [facility] [address] [address] [address] Mendel Herron Calcium [Mass/Vol] 9.4 mg/dL Normal 8.5-10.1 [facility] Comment on above: Performed By: #### L IPA, BMP, CMADM #### [facility] [address] [address] [address] Mendel Herron Chloride [Moles/Vol] 97 mmol/L Critically low 98-107 [facility] Comment on above: Performed By: #### L IPA, BMP, CMADM #### [facility] [address] [place] [address] Dr. Mendel Herron CO2 [Moles/Vol] 26.0 mmol/L Normal 21.0-32.0 [facility] Comment on above: Performed By: #### L IPA, BMP, CMADM #### [facility] [address] [place] [address] Dr. Mendel Herron Creatinine [Mass/Vol] 0.85 mg/dL Normal 0.55-1.02 [facility] Comment on above: Performed By: #### L IPA, BMP, CMADM #### [facility] [address] [place] [address] Dr. Mendel Herron EGFR-AF BRUNEIAN >60 Normal >=60 [facility] Comment on above: Performed By: #### L IPA, BMP, CMADM #### [facility] [address] [place] [address] Dr. Mendel Herron EGFR-NON AF BRUNEIAN >60 Normal >=60 [facility] Comment on above: Performed By: #### L IPA, BMP, CMADM #### [facility] [address] [address] [address] Mendel Herron Glucose [Mass/Vol] 120 mg/dL Critically high 74-106 T [facility] Comment on above: Performed By: #### L IPA, BMP, CMADM #### [facility] [address] [address] [address] Mendel Herron Potassium [Moles/Vol] 3.9 mmol/L Normal 3.5-5.1 [facility] Comment on above: Performed By: #### L IPA, BMP, CMADM #### [facility] [address] [address] [address] Mendel Herron Sodium [Moles/Vol] 138 mmol/L Normal 136-145 [facility] Comment on above: Performed By: #### L IPA, BMP, CMADM #### [facility] [address] [address] [address] Mendel Herron Urea nitrogen [Mass/Vol] 17.0 mg/dL Normal 7.0-18.0 [facility] Comment on above: Performed By: #### L IPA, BMP, CMADM #### [facility] [address] [place] [address] Dr. Mendel Herron Urea nitrogen/Creatinine [Mass ratio] 20.0 mg/mg Normal [facility] Comment on above: Performed By: #### L IPA, BMP, CMADM #### [facility] [address] [place] [address] Dr. Mendel Herron TROPONIN, HIGH SENSITIVITYon 08-09-2022 HSTROP 32.5 pg/mL Normal 4.0-51.3 [facility] Comment on above: Result Comment: CUT- OFF POINTS HAVE BEEN ESTABLISHED BASED ON THE FOURTH UNIVERSAL DEFINITIONS OF MYOCARDIAL INFARCTION. THE UPPER REFERENCE LIMIT (URL) OF TROPONIN, DEFINED THE 99TH PERCENTILE OF cTnI DISTRIBUTION IN A REFERENCE POPULATION, HAS BEEN CONFIRMED THE DECISION THRESHOLD FOR HI DIAGNOSIS. Performed By: #### L IPID, CMP, T4, TSH, FT3 #### [facility] [address] [address] [address] Mendel Herron URINE MICROSCOPIC ONLYon BACTERIA NONE SEEN Normal NONE SEEN [facility] Comment on above: Performed By: #### L IPID, CMP, T4, TSH, FT3 #### [facility] [address] [address] [address] Mendel Herron Bacteria identified Cx Nom (U) NOT INDICATED Normal [facility] Comment on above: Performed By: #### L IPID, CMP, T4, TSH, FT3 #### [facility] [address] [address] [address] Mendel Herron CAST NONE SEEN Normal NONE SEEN [facility] Comment on above: Performed By: #### L IPID, CMP, T4, TSH, FT3 #### [facility] [address] [place] [address] Dr. Mendel Herron Crystals LM Nom (Urine sed) NONE SEEN Normal NONE SEEN [facility] Comment on above: Performed By: #### L IPID, CMP, T4, TSH, FT3 #### [facility] [address] [place] [address] Dr. Mendel Herron Epithelial cells LM Ql (Urine sed) NONE SEEN Normal NONE SEEN /RARE [facility] Comment on above: Performed By: #### L IPID, CMP, T4, TSH, FT3 #### [facility] [address] [place] [address] Dr. Mendel Herron MUCOUS NONE SEEN Normal NONE SEEN [facility] Comment on above: Performed By: #### L IPID, CMP, T4, TSH, FT3 #### [facility] [address] [place] [address] Dr. Mendel Herron RBC 0-2 Normal 0-2 [facility] Comment on above: Performed By: #### L IPID, CMP, T4, TSH, FT3 #### [facility] [address] [place] [address] Dr. Mendel Herron WBC NONE SEEN Normal NONE SEEN [facility] Comment on above: Performed By: #### L IPID, CMP, T4, TSH, FT3 #### [facility] [address] [place] [address] Dr. Mendel Herron XR CHEST 1 Von [...] by: MARY DIETZ Date: 2022-08-09 15:18 Normal [facility] H PYLORI ANTIBODY IGGon 07-20 H. PYLORI IGG ABS 0.11 Index Value Normal 0.00-0.79 [facility] Comment on above: Result Comment: Nega tive <0.80 Equivocal 0.80 - 0.89 Positive >0.89 Performed By: #### L IPID, CMP, T4, TSH, FT3 #### [facility] [address] [place] [address] Dr. Mendel Herron AMYLASEon 08-06-2022 Amylase [Catalytic activity/Vol] 57 U/L Normal 25-115 [facility] Comment on above: Performed By: #### L IPID, CMP, T4, TSH, FT3 #### [facility] [address] [place] [address] Dr. Mendel Herron CBC AUTO DIFFon 08-06-2022 BASO # 0.1 103/ul Normal 0.0-0.1 [facility] Comment on above: Performed By: #### L IPID, CMP, T4, TSH, FT3 #### [facility] [address] [place] [address] Dr. Mendle Herron Basophils/100 WBC (Bld) 0.7 % Normal 0.2-2.0 [facility] Comment on above: Performed By: #### L IPID, CMP, T4, TSH, FT3 #### [facility] [address] [place] [address] Dr. Mendel Herron EO # 0.1 103/ul Normal 0.0-0.7 [facility] Comment on above: Performed By: #### L IPID, CMP, T4, TSH, FT3 #### [facility] [address] [address] [address] Mendel Herron Eosinophils/100 WBC (Bld) 0.5 % Critically low 0.9-7.0 [facility] Comment on above: Performed By: #### L IPID, CMP, T4, TSH, FT3 #### [facility] [address] [place] [address] Dr. Mendel Herron Erythrocyte distribution width (RBC) [Ratio] 13.7 % Normal 11.0-15.0 [facility] Comment on above: Performed By: #### L IPID, CMP, T4, TSH, FT3 #### [facility] [address] [place] [address] Dr. Mendel Herron Hematocrit (Bld) [Volume fraction] 46.2 % Normal 36.0-48.0 [facility] Comment on above: Performed By: #### L IPID, CMP, T4, TSH, FT3 #### [facility] [address] [place] [address] Dr. Mendel Herron Hemoglobin (Bld) [Mass/Vol] 15.1 g/dL Normal 12.0-16.0 [facility] Comment on above: Performed By: #### L IPID, CMP, T4, TSH, FT3 #### [facility] [address] [place] [address] Dr. Mendel Herron IG # 0.06 10e3/ul Critically high 0.00-0.03 [facility] Comment on above: Performed By: #### L IPID, CMP, T4, TSH, FT3 #### [facility] [address] [place] [address] Dr. Mendel Herron IG % 0.6 % Critically high 0.0-0.[address] [facility] Comment on above: Performed By: #### L IPID, CMP, T4, TSH, FT3 #### [facility] [address] [place] [address] Dr. Mendel Herron LYMPH # 2.5 103/ul Normal 1.2-3.8 [facility] Comment on above: Performed By: #### L IPID, CMP, T4, TSH, FT3 #### [facility] [address] [place] [address] Dr. Mendel Herron Lymphocytes/100 WBC (Bld) 23.4 % Normal 20.5-60.0 [facility] Comment on above: Performed By: #### L IPID, CMP, T4, TSH, FT3 #### [facility] [address] [place] [address] Dr. Mendel Herron MANUAL DIFF REQ NO Normal [facility] Comment on above: Performed By: #### L IPID, CMP, T4, TSH, FT3 #### [facility] [address] [place] [address] Dr. Mendel Herron MCH (RBC) [Entitic mass] 31.4 pg Normal 26.7-34.0 [facility] Comment on above: Performed By: #### L IPID, CMP, T4, TSH, FT3 #### [facility] [address] [place] [address] Dr. Mendel Herron MCHC (RBC) [Mass/Vol] 32.7 g/dL Normal 29.9-35.2 [facility] Comment on above: Performed By: #### L IPID, CMP, T4, TSH, FT3 #### [facility] [address] [place] [address] Dr. Mendel Herron MCV (RBC) [Entitic vol] 96.0 fL Normal 81.0-99.0 [facility] Comment on above: Performed By: #### L IPID, CMP, T4, TSH, FT3 #### [facility] [address] [place] [address] Dr. Mendel Herron MONO # 0.6 103/ul Normal 0.3-0.8 [facility] Comment on above: Performed By: #### L IPID, CMP, T4, TSH, FT3 #### [facility] [address] [place] [address] Dr. Mendel Herron Monocytes/100 WBC (Bld) 6.0 % Normal 1.7-12.0 [facility] Comment on above: Performed By: #### L IPID, CMP, T4, TSH, FT3 #### [facility] [address] [address] [address] Mendel Herron NEUT # 7.4 103/ul Critically high 1.4-6.[address] [facility] Comment on above: Performed By: #### L IPID, CMP, T4, TSH, FT3 #### [facility] [address] [address] [address] Mendel Herron Neutrophils/100 WBC (Bld) 68.8 % Normal 43.0-75.0 [facility] Comment on above: Performed By: #### L IPID, CMP, T4, TSH, FT3 #### [facility] [address] [address] [address] Mendel Herron Platelet mean volume (Bld) [Entitic vol] 9.7 fL Normal 9.5-13.5 [facility] Comment on above: Performed By: #### L IPID, CMP, T4, TSH, FT3 #### [facility] [address] [address] [address] Mendel Herron PLT 331 103/ul Normal 150-450 [facility] Comment on above: Performed By: #### L IPID, CMP, T4, TSH, FT3 #### [facility] [address] [address] [address] Mendel Herron RBC 4.81 106/ul Normal 4.20-5.40 [facility] Comment on above: Performed By: #### L IPID, CMP, T4, TSH, FT3 #### [facility] [address] [address] [address] Mendel Herron WBC 10.7 103/ul Normal 4.0-11.0 [facility] Comment on above: Performed By: #### L IPID, CMP, T4, TSH, FT3 #### [facility] [address] [address] [address] HEAD WO CONon [...] by: JEAN LOPES Date: 2022-08-06 08:39 Normal [facility] LIPASEon 08-06-2022 Lipase [Catalytic activity/Vol] 125.0 U/L Normal 73.0-393.0 [facility] Comment on above: Performed By: #### L IPID, CMP, T4, TSH, FT3 #### [facility] [address] [place] [address] Dr. Mendel Herron PROF 14(COMP METB)on 023 Albumin [Mass/Vol] 3.7 g/dL Normal 3.4-5.0 [facility] Comment on above: Performed By: #### L IPID, CMP, T4, TSH, FT3 #### [facility] [address] [address] [address] Mendel Herron Albumin/Globulin [Mass ratio] 0.9 {ratio} Normal [facility] Comment on above: Performed By: #### L IPID, CMP, T4, TSH, FT3 #### [facility] [address] [address] [address] Mendel Herron ALP [Catalytic activity/Vol] 110 U/L Normal 46-116 [facility] Comment on above: Performed By: #### L IPID, CMP, T4, TSH, FT3 #### [facility] [address] [address] [address] Mendel Herron ALT [Catalytic activity/Vol] 25 U/L Normal 14-59 [facility] Comment on above: Performed By: #### L IPID, CMP, T4, TSH, FT3 #### [facility] [address] [place] [address] Dr. Mendel Herron Anion gap [Moles/Vol] 14.0 mmol/L Normal [facility] Comment on above: Performed By: #### L IPID, CMP, T4, TSH, FT3 #### [facility] [address] [place] [address] Dr. Mendel Herron AST [Catalytic activity/Vol] 16 U/L Normal 15-37 [facility] Comment on above: Performed By: #### L IPID, CMP, T4, TSH, FT3 #### [facility] [address] [address] [address] Mendel Herron Bilirubin [Mass/Vol] 0.6 mg/dL Normal 0.2-1.0 [facility] Comment on above: Performed By: #### L IPID, CMP, T4, TSH, FT3 #### [facility] [address] [place] [address] Dr. Mendel Herron Calcium [Mass/Vol] 9.3 mg/dL Normal 8.5-10.1 [facility] Comment on above: Performed By: #### L IPID, CMP, T4, TSH, FT3 #### [facility] [address] [place] [address] Dr. Mendel Herron Chloride [Moles/Vol] 103 mmol/L Normal 98-107 [facility] Comment on above: Performed By: #### L IPID, CMP, T4, TSH, FT3 #### [facility] [address] [place] [address] Dr. Mendel Herron CO2 [Moles/Vol] 27.3 mmol/L Normal 21.0-32.0 [facility] Comment on above: Performed By: #### L IPID, CMP, T4, TSH, FT3 #### [facility] [address] [place] [address] Dr. Mendel Herron Creatinine [Mass/Vol] 0.71 mg/dL Normal 0.55-1.02 [facility] Comment on above: Performed By: #### L IPID, CMP, T4, TSH, FT3 #### [facility] [address] [address] [address] Mendel Herron EGFR-AF BRUNEIAN >60 Normal >=60 [facility] Comment on above: Performed By: #### L IPID, CMP, T4, TSH, FT3 #### [facility] [address] [address] [address] Mendel Herron EGFR-NON AF BRUNEIAN >60 Normal >=60 [facility] Comment on above: Performed By: #### L IPID, CMP, T4, TSH, FT3 #### [facility] [address] [place] [address] Dr. Mendel Herron Globulin (S) [Mass/Vol] 4.3 g/dL Normal [facility] Comment on above: Performed By: #### L IPID, CMP, T4, TSH, FT3 #### [facility] [address] [place] [address] Dr. Mendel Herron Glucose [Mass/Vol] 102 mg/dL Normal 74-106 [facility] Comment on above: Performed By: #### L IPID, CMP, T4, TSH, FT3 #### [facility] [address] [place] [address] Dr. Mendel Herron Potassium [Moles/Vol] 4.3 mmol/L Normal 3.5-5.1 [facility] Comment on above: Performed By: #### L IPID, CMP, T4, TSH, FT3 #### [facility] [address] [address] [address] Mendel Herron Protein [Mass/Vol] 8.0 g/dL Normal 6.4-8.2 [facility] Comment on above: Performed By: #### L IPID, CMP, T4, TSH, FT3 #### [facility] [address] [place] [address] Dr. Mendel Herron Sodium [Moles/Vol] 140 mmol/L Normal 136-145 [facility] Comment on above: Performed By: #### L IPID, CMP, T4, TSH, FT3 #### [facility] [address] [address] [address] Mendel Herron Urea nitrogen [Mass/Vol] 19.0 mg/dL Critically high 7.0-18.0 [facility] Comment on above: Performed By: #### L IPID, CMP, T4, TSH, FT3 #### [facility] [address] [address] [address] Mendel Herron Urea nitrogen/Creatinine [Mass ratio] 26.8 mg/mg Normal [facility] Comment on above: Performed By: #### L IPID, CMP, T4, TSH, FT3 #### [facility] [address] [address] [address] Mendel Herron Covid-19 PCR ([facility])on 06-19 SARS-CoV-2 (COVID-19) RNA DEIRDRE+probe Ql (Unsp spec) Not detected Normal NOT DETECTED [facility] Comment on above: Result Comment: This test is not yet approved or cleared by the [place] FDA. When there are no FDA-approved or cleared tests available, and other criteria are met, FDA can make tests available under an emergency access mechanism called an Emergency Use Authorization (EUA). The EUA for this test is supported by the [place] of Health and Human Service's (HHS's) declaration [...] SARS-CoV-2. Performed By: #### C VDTBH #### [facility] [address] [place] [address] Dr. Mendel Herron INFLUENZA A AND B AGon 06-19 INFLUANEGH SEE BELOW Normal [facility] Comment on above: Result Comment: Nega tive for Flu A protein angiten. Infection due to Flu A cannot be ruled out. Flu A angiten in the sample may be below the detection limit of the test. Performed By: #### L IPID, CMP, T4, TSH, FT3 #### [facility] [address] [address] [address] Mendel Herron INFLUBNEGH SEE BELOW Normal [facility] Comment on above: Result Comment: Nega tive for Flu B protein antigen. Infection due to Flu B cannot be ruled out. Flu B antigen in the sample may be below the detection limit of the test. Performed By: #### L IPID, CMP, T4, TSH, FT3 #### [facility] [address] [address] [address] Mendel Herron INFLUENZA A AG Negative Normal NEGATIVE SEE COMMENT [facility] Comment on above: Performed By: #### L IPID, CMP, T4, TSH, FT3 #### [facility] [address] [address] [address] Mendel Herron INFLUENZA B AG Negative Normal NEGATIVE SEE COMMENT [facility] Comment on above: Performed By: #### L IPID, CMP, T4, TSH, FT3 #### [facility] [address] [place], [place] [address] Dr. Mendel Herron Covid-19 PCR ([facility])on 04-19 SARS-CoV-2 (COVID-19) RNA DEIRDRE+probe Ql (Unsp spec) Not detected Normal NOT DETECTED [facility] Comment on above: Result Comment: This test is not yet approved or cleared by the [place] FDA. When there are no FDA-approved or cleared tests available, and other criteria are met, FDA can make tests available under an emergency access mechanism called an Emergency Use Authorization (EUA). The EUA for this test is supported by the [place] of Health and Human Service's (HHS's) declaration [...] L IPID, CMP, T4, TSH, FT3 #### [facility] [address] [place] [address] Dr. Mendel Herron INFLUENZA A AND B [facility] 05-11 [facility] SEE BELOW Normal [facility] Comment on above: Result Comment: Nega tive for Flu A protein angiten. Infection due to Flu A cannot be ruled out. Flu A angiten in the sample may be below the detection limit of the test. Performed By: #### L IPID, CMP, T4, TSH, FT3 #### [facility] [address] [place] [address] [facility] SEE BELOW Normal [facility] Comment on above: Result Comment: Nega tive for Flu B protein antigen. Infection due to Flu B cannot be ruled out. Flu B antigen in the sample may be below the detection limit of the test. Performed By: #### L IPID, CMP, T4, TSH, FT3 #### [facility] [address] [place] [address] Dr. Mendel Herron INFLUENZA A AG Negative Normal NEGATIVE SEE COMMENT [facility] Comment on above: Performed By: #### L IPID, CMP, T4, TSH, FT3 #### [facility] [address] [place] [address] Dr. Mendel Herron INFLUENZA B AG Negative Normal NEGATIVE SEE COMMENT [facility] Comment on above: Performed By: #### L IPID, CMP, T4, TSH, FT3 #### [facility] [address] [place] [address] Dr. Mendel Herron INTERNAL CONTROLS Within Normal Limits Normal Wi thin Normal Limits [facility] Comment on above: Performed By: #### L IPID, CMP, T4, TSH, FT3 #### [facility] [address] [place] [address] Dr. Mendel Herron [facility] Metabolic Empo 12-23-2021 Albumin [Mass/Vol] 3.7 g/dL Normal 3.2-5.5 [facility] [place] [facility] Comment on above: Performed By: #### E BS CMP, EBS LIPID #### [facility] [address] Albumin/Globulin [Mass ratio] 1.0 {ratio} Normal [facility] Comment on above: Performed By: #### E BS CMP, EBS LIPID #### [facility] [address] [id number] [place] ALP [Catalytic activity/Vol] 159 U/L High 32-92 [facility] Comment on above: Performed By: #### E BS CMP, EBS LIPID #### [facility] [address] ALT [Catalytic activity/Vol] 28 U/L Normal 10-60 [facility] Comment on above: Performed By: #### E BS CMP, EBS LIPID #### [facility] [address] AST [Catalytic activity/Vol] 27 U/L Normal 10-42 [facility] Comment on above: Performed By: #### E BS CMP, EBS LIPID #### [facility] [address] [place] [address] [place] Bilirubin [Mass/Vol] 1.2 mg/dL Normal 0.3-1.2 [facility] Comment on above: Performed By: #### E BS CMP, EBS LIPID #### [facility] [address] [place] [address] [place] Calcium [Mass/Vol] 9.2 mg/dL Normal 8.2-10.2 [facility] [place] [facility] Comment on above: Performed By: #### E BS CMP, EBS LIPID #### [facility] [address] [id number] [place] Chloride [Moles/Vol] 100 mmol/L Normal 95-114 [facility] Comment on above: Performed By: #### E BS CMP, EBS LIPID #### [facility] [address] [id number] [facility] CO2 [Moles/Vol] 20.6 mmol/L Low 22.0-30.0 [facility] Comment on above: Performed By: #### E BS CMP, EBS LIPID #### [facility] [address] Creatinine [Mass/Vol] 0.57 mg/dL Normal 0.44-1.03 [facility] Comment on above: Performed By: #### E BS CMP, EBS LIPID #### [facility] [address] [place] [address] Estimated GFR ( Ni > 60 Normal [facility] Comment on above: Result Comment: GFR estimated reference range: According to KDOQI guidelines, <60 ml/min/1.73m2 is sufficient to diagnose a patient with chronic kidney disease. Performed By: #### E BS CMP, EBS LIPID #### [facility] [address] [place] [address] Estimated GFR (Non- Am > 60 Normal [facility] Comment on above: Performed By: #### E BS CMP, EBS LIPID #### [facility] [address] [place] [address] Globulin (S) [Mass/Vol] 3.7 g/dL Normal [facility] Comment on above: Performed By: #### E BS CMP, EBS LIPID #### [facility] [address] [place] [address] Glucose [Mass/Vol] 100 mg/dL Normal 70-100 [facility] [place] [facility] Comment on above: Performed By: #### E BS CMP, EBS LIPID #### [facility] [address] [place] [address] [place] Potassium [Moles/Vol] 3.9 mmol/L Normal 3.5-5.1 [facility] Comment on above: Performed By: #### E BS CMP, EBS LIPID #### [facility] [address] [place] [address] [place] Protein [Mass/Vol] 7.4 g/dL Normal 6.1-7.9 [facility] [place] [facility] Comment on above: Performed By: #### E BS CMP, EBS LIPID #### [facility] [address] [place] [address] [place] Sodium [Moles/Vol] 135 mmol/L Low 136-146 [facility] [place] [facility] Comment on above: Performed By: #### E BS CMP, EBS LIPID #### [facility] [address] [place] [address] [place] Urea nitrogen [Mass/Vol] 12 mg/dL Normal 9-23 [facility] Comment on above: Performed By: #### E BS CMP, EBS LIPID #### [facility] [address] [id number] [place] Lipid Profileon 12-23-2021 Cholesterol [Mass/Vol] 213 mg/dL High 140-200 [facility] Comment on above: Result Comment: Chol less than 200 mg/dl low risk Chol 201-239 mg/dl borderline risk Chol 240 mg/dl and greater high risk Performed By: #### E BS CMP, EBS LIPID #### [facility] [address] Cholesterol in HDL [Mass/Vol] 36 mg/dL Normal 35-85 [facility] Comment on above: Result Comment: HDL CHOL ATP-III CLASSIFICATION Cardiovascular Risk HDL > or equal to 60 mg/dL LOW HDL < 40 mg/dL HIGH Performed By: #### E BS CMP, EBS LIPID #### [facility] [address] Cholesterol.total/Ch olesterol in HDL [Mass ratio] 5.9 {ratio} Normal <5.0 [facility] Comment on above: Result Comment: PERF ORMED BY: [place] [address] PATHOLOGIST COMMUNICATIONS CONSULTANT MARIBEL AGUILLON M.D. Performed By: #### E BS CMP, EBS LIPID #### [facility] [address] [phone] [place] LDL Cholesterol,Calculat ed 151 mg/dL High 0-100 [facility] Comment on above: Result Comment: LDL ATP III CLASSIFICATION LDL less than 100 mg/dL Optimal LDL 100-129 mg/dL Near or above optimal LDL 130-159 mg/dL Borderline high LDL 160-189 mg/dL High LDL greater than 189 mg/dL Very high Performed By: #### E BS CMP, EBS LIPID #### [facility] [address] Triglyceride w/Reflex 129 mg/dL Normal 35-149 [facility] Comment on above: Result Comment: TRIG ATP III CLASSIFICATION TRIG less than 150 mg/dL Normal TRIG 150-199 mg/dL Borderline high TRIG 200-500 mg/dL High TRIG greater than 500 mg/dL Very high Standard traceable to the Center for Disease Conrtrol and Prevention (CDC) test method. Performed By: #### E BS CMP, EBS LIPID #### [facility] [address] VLDL CHOLESTEROL 25 mg/dL Normal [facility] Comment on above: Performed By: #### E BS CMP, EBS LIPID #### [facility] [address] [facility] SARS-CoV-2 (COVID-19) RNA DEIRDRE+probe Ql (Unsp spec) Detected Critically abnormal NOT DETECTED [facility] Comment on above: Result Comment: This test is not yet approved or cleared by the [place] FDA. When there are no FDA-approved or cleared tests available, and other criteria are met, FDA can make tests available under an emergency access mechanism called an Emergency Use Authorization (EUA). The EUA for this test is supported by the [place] of Health and Human Service's declaration that [...] used). Performed By: #### C VDTBH #### [facility] [address] [place], [place] [address] Dr. Mendel Herron INFLUENZA A AND B AGon 12-02 INFLUANEGH SEE BELOW Normal [facility] Comment on above: Result Comment: Nega tive for Flu A protein angiten. Infection due to Flu A cannot be ruled out. Flu A angiten in the sample may be below the detection limit of the test. Performed By: #### L IPID, CMP, T4, TSH, FT3 #### [facility] [address] [address] [facility] SEE BELOW Normal [facility] Comment on above: Result Comment: Nega tive for Flu B protein antigen. Infection due to Flu B cannot be ruled out. Flu B antigen in the sample may be below the detection limit of the test. Performed By: #### L IPID, CMP, T4, TSH, FT3 #### [facility] [address] [id number] Mendel Herron INFLUENZA A AG Negative Normal NEGATIVE SEE COMMENT [facility] Comment on above: Performed By: #### L IPID, CMP, T4, TSH, FT3 #### [facility] [address] [address] [address] Mendel Herron INFLUENZA B AG Negative Normal NEGATIVE SEE COMMENT [facility] Comment on above: Performed By: #### L IPID, CMP, T4, TSH, FT3 #### [facility] [address] [address] [address] Mendel Herron INTERNAL CONTROLS Within Normal Limits Normal Wi thin Normal Limits [facility] Comment on above: Performed By: #### L IPID, CMP, T4, TSH, FT3 #### [facility] [id number] Mendel Herron Cardiovascular Lab Reporton 08-18-2021 Cardiovascular Lab Report [facility] Patient Name: [facility] S MR #: [id number] Department of Physician: Curtis Martinez MD Medicine Service Date: 08/18/2021 Division of Birthdate: 1970 Cardiology Room #: Adult Cardiovascular Services [place] [address] Cardiovascular Laboratory Report ATRIAL FLUTTER ABLATION AND [...] 04-23-2021 Antinuclear Abs, IFA Negative Normal . [facility] Comment on above: Result Comment: Nega tive <1:80 Borderline 1:80 Positive >1:80 ICAP nomenclature: AC-0 For more information about Hep-2 cell patterns use ANApatterns.org, the official website for the International Consensus on Antinuclear Antibody (BILL) Patterns (ICAP). Performed at: [facility] [id number] [employer] Operator: Ger Yen PhD, Phone: [phone] PERFORMED BY: [place] [address] PATHOLOGIST COMMUNICATIONS CONSULTANT MARIBEL AGUILLON M.D. Performed By: #### E SR, CRP, CBC, CREAT #### [address] #### BILL #### [facility] , C-Reactive Proteinon 021 C-Reactive Protein 0.7 mg/dL Normal 0.0-1.0 [facility] Comment on above: Result Comment: PERF ORMED BY: [place] [address] PATHOLOGIST COMMUNICATIONS CONSULTANT MARIBEL AGUILLON M.D. Performed By: #### E SR, CRP, CBC, CREAT #### [address] #### BILL #### [facility] , Complement C3on 04-23-2021 Complement C3 170 mg/dL High 82-167 [facility] Comment on above: Result Comment: Perf ormed at: - [facility] [place] [id number] [employer] Machine Operator: Ger Yen PhD, Phone: [phone] Performed By: #### A DDONUAPLUS #### [address] #### CH50, C3, C4 #### [facility] , Complement C4on 04-23-2021 Complement C4 14 mg/dL Normal 12-38 [facility] Comment on above: Performed By: #### A DDONUAPLUS #### [address] #### CH50, C3, C4 #### [facility] , Complement Total (CH50)on Complement Total (CH50) >60 Normal >41 [facility] Comment on above: Result Comment: Age [...] out of range values. Performed at: - [facility] [id number] [employer] Operator: Ger Yen PhD, Phone: [phone] PERFORMED BY: [place] [address] PATHOLOGIST COMMUNICATIONS CONSULTANT MARIBEL AGUILLON M.D. Performed By: #### E BS CMP, EBS LIPID #### [address] Complete Blood Count Auto Di ffon 04-23-2021 Basophils (Bld) [#/Vol] 0.1 10*3/uL Normal 0.0-0.2 [facility] Comment on above: Performed By: #### E SR, CRP, CBC, CREAT #### [address] #### BILL #### [facility] , Basophils/100 WBC (Bld) 0.7 % Normal . [facility] Comment on above: Performed By: #### E SR, CRP, CBC, CREAT #### [address] #### BILL #### [facility] , Eosinophils (Bld) [#/Vol] 0.1 10*3/uL Normal 0.0-0.45 [facility] Comment on above: Performed By: #### E SR, CRP, CBC, CREAT #### [place] [address] [place] #### BILL #### [facility] , Eosinophils/100 WBC (Bld) 0.5 % Normal . [facility] Comment on above: Performed By: #### E SR, CRP, CBC, CREAT #### [address] #### BILL #### [facility] , Erythrocyte distribution width (RBC) [Ratio] 18.0 % High 11.9-15.3 [facility] Comment on above: Performed By: #### E SR, CRP, CBC, CREAT #### [address] #### BILL #### [facility] , Hematocrit (Bld) [Volume fraction] 31.6 % Low 34.0-46.4 [facility] Comment on above: Performed By: #### E SR, CRP, CBC, CREAT #### [address] #### BILL #### [facility] , Hemoglobin (Bld) [Mass/Vol] 9.8 g/dL Low 11.8-15.4 [facility] Comment on above: Performed By: #### E SR, CRP, CBC, CREAT #### [address] #### BILL #### [facility] , Lymphocytes (Bld) [#/Vol] 1.7 10*3/uL Normal 1.00-4.8 [facility] Comment on above: Performed By: #### E SR, CRP, CBC, CREAT #### [place] [address] [place] #### BILL #### [facility] , Lymphocytes/100 WBC (Bld) 15.0 % Normal . [facility] Comment on above: Performed By: #### E SR, CRP, CBC, CREAT #### [place] [address] [place] #### BILL #### [facility] , MCH (RBC) [Entitic mass] 24.8 pg Normal 24.7-34.3 [facility] Comment on above: Performed By: #### E SR, CRP, CBC, CREAT #### [facility] [address] [place] [address] #### BILL #### [facility] , MCV (RBC) [Entitic vol] 80.1 fL Normal 80-100 [facility] Comment on above: Performed By: #### E SR, CRP, CBC, CREAT #### [facility] [address] [place] [address] [place] #### BILL #### [facility] , Mean Corpuscular HGB Conc 31.0 g/dL Low 32.0-35.0 [facility] Comment on above: Performed By: #### E SR, CRP, CBC, CREAT #### [address] #### BILL #### [facility] , Monocytes (Bld) [#/Vol] 0.5 10*3/uL Normal 0.0-0.8 [facility] Comment on above: Performed By: #### E SR, CRP, CBC, CREAT #### [place] [address] [place] #### BILL #### [facility] , Monocytes/100 WBC (Bld) 4.6 % Normal . [facility] Comment on above: Performed By: #### E SR, CRP, CBC, CREAT #### [place] [address] [place] #### BILL #### [facility] , Neutrophils (Bld) [#/Vol] 9.1 10*3/uL High 1.8-7.7 [facility] Comment on above: Performed By: #### E SR, CRP, CBC, CREAT #### [place] [address] [place] #### BILL #### [facility] , Neutrophils/100 WBC (Bld) 79.2 % Normal . [facility] Comment on above: Performed By: #### E SR, CRP, CBC, CREAT #### [facility] [address] [place] [address] #### BILL #### [facility] , Nucleated RBC/100 WBC (Bld) [Ratio] 0.1 % Normal 0-0.5 [facility] Comment on above: Performed By: #### E SR, CRP, CBC, CREAT #### [facility] [address] [place] [address] [place] #### BILL #### [facility] , Platelet mean volume (Bld) [Entitic vol] 8.3 fL Normal 6.3-10.7 [facility] Comment on above: Performed By: #### E SR, CRP, CBC, CREAT #### [address] #### BILL #### [facility] , Platelets (Bld) [#/Vol] 336 10*3/uL Normal 150-450 [facility] Comment on above: Performed By: #### E SR, CRP, CBC, CREAT #### [address] #### BILL #### [facility] , RBC (Bld) [#/Vol] 3.94 10*6/uL Normal 3.60-5.00 [facility] Comment on above: Performed By: #### E SR, CRP, CBC, CREAT #### [place] [address] [place] #### BILL #### [facility] , WBC (Bld) [#/Vol] 11.5 10*3/uL High 4.5-11.0 [facility] Comment on above: Performed By: #### E SR, CRP, CBC, CREAT #### [place] [address] [place] #### BILL #### [facility] , Creatinineon 04-23-2021 Creatinine [Mass/Vol] 0.75 mg/dL Normal 0.44-1.03 [facility] Comment on above: Performed By: #### E SR, CRP, CBC, CREAT #### [address] #### BILL #### [facility] , Estimated GFR ( Ni > 60 Normal [facility] Comment on above: Result Comment: GFR estimated reference range: According to KDOQI guidelines, <60 ml/min/1.73m2 is sufficient to diagnose a patient with chronic kidney disease. Performed By: #### E SR, CRP, CBC, CREAT #### [facility] [address] [place] [address] #### BILL #### [facility] , Estimated GFR (Non- Am > 60 Normal [facility] Comment on above: Performed By: #### E SR, CRP, CBC, CREAT #### [address] #### BILL #### [facility] , Dipstick and Microscopicon 1 Appearance (U) Clear Normal Clear [facility] Comment on above: Order Comment: Name Collection Type:: Clean-Voided Midstream Performed By: #### A DDONUAPLUS #### [place] [address] [place] #### CH50, C3, C4 #### [facility] , Bacteria,Urine None Seen Normal None Seen [facility] Comment on above: Order Comment: Name Collection Type:: Clean-Voided Midstream Performed By: #### A DDONUAPLUS #### [place] [address] [place] #### CH50, C3, C4 #### [facility] , Bilirubin,Urine Negative Normal Negative [facility] Comment on above: Order Comment: Name Collection Type:: Clean-Voided Midstream Performed By: #### A DDONUAPLUS #### [address] #### CH50, C3, C4 #### [facility] , Color (U) Yellow Normal Yellow [facility] Comment on above: Order Comment: Name Collection Type:: Clean-Voided Midstream Performed By: #### A DDONUAPLUS #### [address] #### CH50, C3, C4 #### [facility] , Glucose Ql (U) 100 mg/dL High Normal [facility] Comment on above: Order Comment: Name Collection Type:: Clean-Voided Midstream Performed By: #### A DDONUAPLUS #### [address] #### CH50, C3, C4 #### [facility] , Hyaline Casts,Urine 0-8 Normal 0-8 [facility] Comment on above: Order Comment: Name Collection Type:: Clean-Voided Midstream Result Comment: PERF ORMED BY: [place] [address] PATHOLOGIST COMMUNICATIONS CONSULTANT MARIBEL AGUILLON M.D. Performed By: #### A DDONUAPLUS #### [address] #### CH50, C3, C4 #### [facility] , Ketones Ql (U) Negative Normal Negative [facility] Comment on above: Order Comment: Name Collection Type:: Clean-Voided Midstream Performed By: #### A DDONUAPLUS #### [address] #### CH50, C3, C4 #### [facility] , Leukocyte esterase Test strip Ql (U) Negative Normal Negative [facility] Comment on above: Order Comment: Name Collection Type:: Clean-Voided Midstream Performed By: #### A DDONUAPLUS #### [address] #### CH50, C3, C4 #### [facility] , Nitrite,Urine Negative Normal Negative [facility] Comment on above: Order Comment: Name Collection Type:: Clean-Voided Midstream Performed By: #### A DDONUAPLUS #### [address] #### CH50, C3, C4 #### [facility] , Occult Blood,Urine Negative Normal Negative [facility] Comment on above: Order Comment: Name Collection Type:: Clean-Voided Midstream Performed By: #### A DDONUAPLUS #### [address] #### CH50, C3, C4 #### [facility] , pH (U) 5.0 [pH] Normal 5.0-9.0 [facility] Comment on above: Order Comment: Name Collection Type:: Clean-Voided Midstream Performed By: #### A DDONUAPLUS #### [address] #### CH50, C3, C4 #### [facility] , Protein,Urine Negative Normal Negative [facility] Comment on above: Order Comment: Name Collection Type:: Clean-Voided Midstream Performed By: #### A DDONUAPLUS #### [address] #### CH50, C3, C4 #### [facility] , RBC,Urine None Seen Normal 0-4 [facility] Comment on above: Order Comment: Name Collection Type:: Clean-Voided Midstream Performed By: #### A DDONUAPLUS #### [address] #### CH50, C3, C4 #### [facility] , Specificy [place],Urine 1.009 Normal 1.001-1.030 [facility] Comment on above: Order Comment: Name Collection Type:: Clean-Voided Midstream Performed By: #### A DDONUAPLUS #### [address] #### CH50, C3, C4 #### [facility] , Squamous Epithelial Cell,Urine 0-1 Normal 0-2 [facility] Comment on above: Order Comment: Name Collection Type:: Clean-Voided Midstream Performed By: #### A DDONUAPLUS #### [address] #### CH50, C3, C4 #### [facility] , Urobilinogen,Urine Normal Normal Normal [facility] Comment on above: Order Comment: Name Collection Type:: Clean-Voided Midstream Performed By: #### A DDONUAPLUS #### [address] #### CH50, C3, C4 #### [facility] , WBC LM.HPF (Urine sed) [#/Area] 0 /[HPF] Normal 0-4 [facility] Comment on above: Order Comment: Name Collection Type:: Clean-Voided Midstream Performed By: #### A DDONUAPLUS #### [address] #### CH50, C3, C4 #### [facility] , Erythrocyte Sedimentation Ra ryley 04-23-2021 ESR (Bld) [Velocity] 55 mm/h High 0-29 [facility] Comment on above: Result Comment: PERF ORMED BY: [place] [address] PATHOLOGIST COMMUNICATIONS CONSULTANT MARIBEL AGUILLON M.D. Performed By: #### E SR, CRP, CBC, CREAT #### [address] #### BILL #### [facility] , BASIC METABOLIC PANELon - Calcium [Mass/Vol] 8.7 mg/dL Normal 8.6-10.3 [facility] Comment on above: Order Comment: No: D o not add to previous draw Performed By: #### 5 7307, 50494 #### [facility] [address] [place] [address], [place] Chloride [Moles/Vol] 97 mmol/L Low 98-107 [facility] Comment on above: Order Comment: No: D o not add to previous draw Performed By: #### 5 7307, 34697 #### [facility] [address] [place] [address], [place] CO2 [Moles/Vol] 36 mmol/L High 21-31 [facility] Comment on above: Order Comment: No: D o not add to previous draw Performed By: #### 5 7307, 86579 #### [facility] [address] [place] [address], [place] Creatinine [Mass/Vol] 0.74 mg/dL Normal 0.60-1.20 [facility] Comment on above: Order Comment: No: D o not add to previous draw Performed By: #### 5 7307, 51905 #### [facility] [address] [place] [address], [place] GFR/1.73 sq M.predicted among blacks MDRD (S/P/Bld) [Vol rate/Area] mL/min/{1.73_m2} Normal >60 [facility] Comment on above: Order Comment: No: D o not add to previous draw Performed By: #### 5 7307, 32754 #### [facility] [address] [place] [address], [place] GFR/1.73 sq M.predicted among non-blacks MDRD (S/P/Bld) [Vol rate/Area] mL/min/{1.73_m2} Normal >60 [facility] Comment on above: Order Comment: No: D o not add to previous draw Performed By: #### 5 73, 18902 #### [facility] [address] [place] [address], [place] Glucose [Mass/Vol] 123 mg/dL High 70-100 [facility] Comment on above: Order Comment: No: D o not add to previous draw Performed By: #### 5 73, 89636 #### [facility] [address] [place] [address], [place] Potassium [Moles/Vol] 4.3 mmol/L Normal 3.5-5.1 [facility] Comment on above: Order Comment: No: D o not add to previous draw Performed By: #### 5 73, 78821 #### [facility] [address] [place] [address], [place] Sodium [Moles/Vol] 139 mmol/L Normal 136-145 [facility] Comment on above: Order Comment: No: D o not add to previous draw Performed By: #### 5 73, 61867 #### [facility] [address] [place] [address], [place] Urea nitrogen [Mass/Vol] 24 mg/dL Normal 7-25 [facility] Comment on above: Order Comment: No: D o not add to previous draw Performed By: #### 5 73, 85494 #### [facility] [address] [place] [address], [place] CBC COMPLETE BLOOD COUNTon 0 - Erythrocyte distribution width (RBC) [Ratio] 16.8 % High 11.5-15.0 [facility] Comment on above: Order Comment: No: D o not add to previous draw Performed By: #### 5 7307, 39859 #### [facility] [address] [place] [address], [place] Hematocrit (Bld) [Volume fraction] 29.7 % Low 36.0-45.0 [facility] Comment on above: Order Comment: No: D o not add to previous draw Performed By: #### 5 73, 48561 #### [facility] [address] [place] [address], [facility] Hemoglobin (Bld) [Mass/Vol] 8.9 g/dL Low 12.0-15.0 [facility] Comment on above: Order Comment: No: D o not add to previous draw Performed By: #### 5 7306, 67729 #### [facility] [address] [place] [address], [facility] MCH (RBC) [Entitic mass] 25.4 pg Low 27.0-33.0 [facility] Comment on above: Order Comment: No: D o not add to previous draw Performed By: #### 5 7306, 27442 #### [facility] [address] [place] [address], [facility] MCHC (RBC) [Mass/Vol] 30.0 g/dL Low 32.0-35.0 [facility] Comment on above: Order Comment: No: D o not add to previous draw Performed By: #### 5 7306, 85468 #### [facility] [address] [place] [address], [facility] MCV (RBC) [Entitic vol] 84.9 fL Normal 82.0-98.0 [facility] Comment on above: Order Comment: No: D o not add to previous draw Performed By: #### 5 7306, 76933 #### [facility] [address] [place] [address], [facility] Nucleated RBC/100 WBC (Bld) [Ratio] 0 % Normal 0-0 [facility] Comment on above: Order Comment: No: D o not add to previous draw Performed By: #### 5 7306, 24379 #### [facility] [address] PLAT CNT 446 10*3/uL High 150-400 [facility] Comment on above: Order Comment: No: D o not add to previous draw Performed By: #### 5 7307, 89269 #### [facility] [address] RBC (Bld) [#/Vol] 3.50 10*6/uL Low 3.80-5.00 [facility] Comment on above: Order Comment: No: D o not add to previous draw Performed By: #### 5 7307, 41705 #### [facility] [address] WBC (Bld) [#/Vol] 16.54 10*3/uL High 4.00-10.60 [facility] Comment on above: Order Comment: No: D o not add to previous draw Performed By: #### 5 7307, 34612 #### [facility] [address] Cardiovascular Lab Reporton 04-11-2021 Cardiovascular Lab Report [facility] Patient Name: Antonio [facility] S MR #: [id number] Department of Physician: [place] Rodas [place] Division of Service Date: 04/11/2021 Cardiology Birthdate: 1970 Adult Cardiovascular Room #: 5AB [id number] [place] [address] Cardiovascular Laboratory Report PROCEDURE PERFORMED: Transesophageal echocardiogram and cardioversion. INDICATION: Atrial flutter. FELLOW: Dunia Sierra MD PROCEDURE IN DETAIL: Informed consent was obtained from the patient after explaining the indication, risks, benefits, as well as alternatives. The patient understood and agreed, and signed the consent form. The patient was brought to the label rewinder and transesophageal echocardiogram was performed, under conscious [...] Sierra MD Date Trans: 04/11/2021 12:53 P/marixa [id number] cc: Phillip Ann M.D. [address] [id number] Normal [facility] MAGNESIUM BLOODon 04-11-2021 Magnesium [Mass/Vol] 2.3 mg/dL Normal 1.9-2.7 [facility] Comment on above: Order Comment: No: D o not add to previous draw Performed By: #### 5 7307, 27849 #### [facility] [address] [place] [address], [facility] POC GLUCOSE LABon 04-11-2021 Glucose [Mass/Vol] 124 mg/dL High 70-100 [facility] Comment on above: Performed By: #### 5 7307, 59151 #### [facility] [address] [place] [address], [facility] TROPONIN-Ion 04-11-2021 Troponin I.cardiac [Mass/Vol] 0.06 ng/mL High 0.00-0.04 [facility] Comment on above: Order Comment: No: D o not add to previous draw Result Comment: REFE RENCE RANGES: 0.00 - 0.04 ng/ml NORMAL 0.05 - 0.50 ng/ml INDETERMINATE > 0.50 ng/ml CONSISTENT WITH AN M.I. Performed By: #### 5 7307, 42593 #### [facility] [address] *BLOOD CULTUREon 04-10-2021 *BLOOD CULTURE Clinical Report: (D) Specimen: BLOOD CULTURE Collected: 04/10/2021 09:50 Status: Final Last Updated: 04/15/2021 11:28 (1) Right hand CULT RES (Final) No Growth Day 5 Normal [facility] Comment on above: Order Comment: No: D o not add to previous draw Performed By: #### 5 7307, 90610 #### [facility] [address] *BLOOD CULTURE Clinical Report: (D) Specimen: BLOOD CULTURE Collected: 04/10/2021 09:50 Status: Final Last Updated: 04/15/2021 11:28 (1) Left hand CULT RES (Final) No Growth Day 5 Normal [facility] Comment on above: Order Comment: No: D o not add to previous draw Performed By: #### 5 7307, 85345 #### [facility] [address] *SARS-CoV-2 COVID-19on 04-10 SARS-CoV-2 (COVID-19) RNA DEIRDRE+probe Ql (Unsp spec) Not detected Normal Not Detected [facility] Comment on above: Order Comment: No: D o not add to previous draw Performed By: #### 5 7307, 01312 #### [facility] [address] APTTon 04-10-2021 aPTT Coag (Bld) [Time] [...] THIS PURPOSE. Performed By: #### 5 7307, 75759 #### [facility] [address] [place] [address], [facility] aPTT Coag (Bld) [Time] 23.2 s Low 25.0-35.0 [facility] Comment on above: Order Comment: [...] THIS PURPOSE. Performed By: #### 5 7307, 36324 #### [facility] [address] [facility] [place] [address], [facility] BASIC METABOLIC PANELon 09-2 Calcium [Mass/Vol] 8.6 mg/dL Normal 8.6-10.3 [facility] Comment on above: Order Comment: No: D o not add to previous draw Performed By: #### 1 0070, 46311, 85616 #### [facility] [address] [facility] [address], [facility] Chloride [Moles/Vol] 99 mmol/L Normal 98-107 [facility] Comment on above: Order Comment: No: D o not add to previous draw Performed By: #### 1 0070, 98179, 89480 #### [facility] [address] [place] [id number], [facility] CO2 [Moles/Vol] 32 mmol/L High 21-31 [facility] Comment on above: Order Comment: No: D o not add to previous draw Performed By: #### 1 0070, 18305, 93500 #### [facility] [address] [place] [address], [place] Creatinine [Mass/Vol] 0.84 mg/dL Normal 0.60-1.20 [facility] Comment on above: Order Comment: No: D o not add to previous draw Performed By: #### 1 0, 60523, 79189 #### [facility] [address] [place] [address], [place] GFR/1.73 sq M.predicted among blacks MDRD (S/P/Bld) [Vol rate/Area] mL/min/{1.73_m2} Normal >60 [facility] Comment on above: Order Comment: No: D o not add to previous draw Performed By: #### 1 0, 34071, 28115 #### [facility] [address] [place] [address], [place] GFR/1.73 sq M.predicted among non-blacks MDRD (S/P/Bld) [Vol rate/Area] mL/min/{1.73_m2} Normal >60 [facility] Comment on above: Order Comment: No: D o not add to previous draw Performed By: #### 1 69, 14750, 69434 #### [facility] [address] [place] [address], [place] Glucose [Mass/Vol] 117 mg/dL High 70-100 [facility] Comment on above: Order Comment: No: D o not add to previous draw Performed By: #### 1 0, 34003, 29731 #### [facility] [address] [place] [address], [place] Potassium [Moles/Vol] 3.9 mmol/L Normal 3.5-5.1 [facility] Comment on above: Order Comment: No: D o not add to previous draw Performed By: #### 1 0, 54801, 87801 #### [facility] [address] [place] [address], [facility] Sodium [Moles/Vol] 139 mmol/L Normal 136-145 [facility] Comment on above: Order Comment: No: D o not add to previous draw Performed By: #### 1 0070, 86463, 83915 #### [facility] [address] [facility] [address], [facility] Urea nitrogen [Mass/Vol] 19 mg/dL Normal 7-25 [facility] Comment on above: Order Comment: No: D o not add to previous draw Performed By: #### 1 0070, 79796, 76682 #### [facility] [address] [facility]. [address] BNP (B-TYPE NATRIURETIC PEPT MARILYN)on 04-10-2021 Natriuretic peptide B (Bld) [Mass/Vol] 259 pg/mL High 0-100 [facility] Comment on above: Order Comment: No: D o not add to previous draw Result Comment: Give n the appropriate clinical setting a BNP result of >100 pg/mL indicates congestive heart failure. Performed By: #### 5 7307, 25924 #### [facility] [address] [facility] [address], [facility] CBC W/DIFFon 04-10-2021 ABS IMM GRANS 1.1 10*3/uL High 0.0-0.2 [facility] Comment on above: Performed By: #### 5 0103 #### [facility] [address] [facility] [address], [facility] ABS NEUTROPHILS 9.6 10*3/uL High 1.6-7.6 [facility] Comment on above: Performed By: #### 5 0103 #### [facility] [address] [facility] [address], [facility] ANISO MODERATE Normal [facility] Comment on above: Performed By: #### 5 0103 #### [facility] [address] [place] [address], [facility] Basophils (Bld) [#/Vol] 0.1 10*3/uL Normal 0.0-0.2 [facility] Comment on above: Performed By: #### 5 0103 #### [facility] [address] [place] [address], [facility] Basophils/100 WBC (Bld) 0.7 % Normal 0.0-1.0 [facility] Comment on above: Performed By: #### 0103 #### [facility] [address] [place] [address], [facility] Eosinophils (Bld) [#/Vol] 0.1 10*3/uL Normal 0.0-0.5 [facility] Comment on above: Performed By: #### 3 #### [facility] [address] [facility] [place] [address], [facility] Eosinophils/100 WBC (Bld) 0.4 % Normal 0.0-6.0 [facility] Comment on above: Performed By: #### 3 #### [facility] [address] [facility]. [address] Erythrocyte distribution width (RBC) [Ratio] 16.5 % High 11.5-15.0 [facility] Comment on above: Performed By: #### 5 3 #### [facility] [address] [facility] [place] [address], [facility] Hematocrit (Bld) [Volume fraction] 31.2 % Low 36.0-45.0 [facility] Comment on above: Performed By: #### 5 3 #### [facility] [address] [facility] [place] [address], [facility] Hemoglobin (Bld) [Mass/Vol] 9.0 g/dL Low 12.0-15.0 [facility] Comment on above: Performed By: #### 5 3 #### [facility] [address] [place] [address], [facility] HYPO SLIGHT Normal [facility] Comment on above: Performed By: #### 5 0103 #### [facility] [address] [facility] [place] [id number], [facility] IMMATURE GRANS 6.8 % High 0.0-1.0 [facility] Comment on above: Performed By: #### 5 0103 #### [facility] [address] [facility] [place] [address], [facility] Lymphocytes (Bld) [#/Vol] 4.4 10*3/uL High 1.2-4.0 [facility] Comment on above: Performed By: #### 5 0103 #### [facility] [address] [facility] [place] [address], [facility] Lymphocytes/100 WBC (Bld) 26.4 % Normal 20.0-45.0 [facility] Comment on above: Performed By: #### 5 0103 #### [facility] [address] [facility] [place] [address], [facility] MCH (RBC) [Entitic mass] 25.3 pg Low 27.0-33.0 [facility] Comment on above: Performed By: #### 5 0103 #### [facility] [address] [facility] [place] [id number], [facility] MCHC (RBC) [Mass/Vol] 28.8 g/dL Low 32.0-35.0 [facility] Comment on above: Performed By: #### 5 0103 #### [facility] [address] [facility] [place] [address], [facility] MCV (RBC) [Entitic vol] 87.6 fL Normal 82.0-98.0 [facility] Comment on above: Performed By: #### 5 0103 #### [facility] [address] [place] [address], [facility] Monocytes (Bld) [#/Vol] 1.3 10*3/uL High 0.1-1.0 [facility] Comment on above: Performed By: #### 5 0103 #### [facility] [address] [facility] [address], [facility] MONOS 7.6 % Normal 5.0-12.0 [facility] Comment on above: Performed By: #### 5 0103 #### [facility] [address] [facility] [address], [facility] Neutrophils/100 WBC (Bld) 58.1 % Normal 40.0-72.0 [facility] Comment on above: Performed By: #### 5 0103 #### [facility] [address] [facility] [address], [facility] Nucleated RBC/100 WBC (Bld) [Ratio] 1 % High 0-0 [facility] Comment on above: Performed By: #### 5 0103 #### [facility] [address] [facility] [address], [facility] PLAT CNT 483 10*3/uL High 150-400 [facility] Comment on above: Performed By: #### 5 010 #### [facility] [address] [facility] [address], [facility] POIK SLIGHT Normal [facility] [facility] Comment on above: Performed By: #### 5 3 #### [facility] [address] [facility] [address], [facility] POLY SLIGHT Normal [facility] Comment on above: Performed By: #### 5 3 #### [facility] [address] [facility] [address], [facility] RBC (Bld) [#/Vol] 3.56 10*6/uL Low 3.80-5.00 [facility] Comment on above: Performed By: #### 5 3 #### [facility] [address] [facility] [address], [facility] WBC (Bld) [#/Vol] 16.54 10*3/uL High 4.00-10.60 [facility] Comment on above: Performed By: #### 5 0103 #### [facility] [address] [place] [address], [facility] LIPID PROFILEon 04-10-2021 Cholesterol [Mass/Vol] 161 mg/dL Normal 120-200 [facility] Comment on above: Result Comment: CHOL ESTEROL REFERENCE RANGE: 20 YEARS AND OLDER CARDIOVASCULAR RISK Less than 200 mg/dl Low Risk 200 to 239 mg/dl Borderline Risk 240 mg/dl and greater High Risk Performed By: #### 3 1569, 44606, 18297 #### [facility] [address] [place] [address], [facility] Cholesterol in HDL [Mass/Vol] 61 mg/dL Normal 23-92 [facility] Comment on above: Result Comment: Slig ht variation in normal range could be due to gender and/or age. HDL CHOLESTEROL REFERENCE RANGE: 20 years and older Cardiovascular Risk > or =60 mg/dL Desirable 40 TO 59 mg/dL Low Risk <40 mg/dL High Risk Performed By: #### 3 1569, 95275, 67111 #### [facility] [address] [place] [address], [facility] Cholesterol in LDL [Mass/Vol] 28 mg/dL Normal 0-130 [facility] Comment on above: Result Comment: LDL IS A CALCULATION LDL IS ONLY VALID IF THE TRIG IS LESS THAN 400. Performed By: #### 3 1569, 87240, 08747 #### [facility] [address] [place] [address], [place] Cholesterol.total/Ch olesterol in HDL [Mass ratio] 2.6 {ratio} Normal .0-4.5 [facility] Comment on above: Performed By: #### 3 1569, 56340, 29645 #### [facility] [address] [place] [address], [place] NON-HDL CHOLESTEROL 100 mg/dL Normal [facility] Comment on above: Performed By: #### 3 1569, 25430, 55481 #### [facility] [address] [place] [address], [facility] Triglyceride [Mass/Vol] 362 mg/dL High 40-149 [facility] Comment on above: Result Comment: TRIG LYCERIDE REFERENCE RANGE: 20 YEARS AND OLDER CARDIOVASCULAR RISK LESS THAN 150 mg/dl LOW RISK 150 TO 199 mg/dl BORDERLINE RISK 200 mg/dl AND GREATER HIGH RISK Performed By: #### 3 1569, 42444, 58419 #### [facility] [address] [place] [id number], [facility] VLDL CHOL 72 mg/dL High 0-40 [facility] Comment on above: Performed By: #### 3 1569, 21956, 16808 #### [facility] [address] [place] [id number], [facility] MAGNESIUM BLOODon 04-10-2021 Magnesium [Mass/Vol] 2.4 mg/dL Normal 1.9-2.7 [facility] Comment on above: Order Comment: No: D o not add to previous draw Performed By: #### 1 0070, 96162, 57055 #### [facility] [address] [place] [address], [facility] POC GLUCOSE LABon 04-10-2021 Glucose [Mass/Vol] 350 mg/dL High 70-100 [facility] Comment on above: Performed By: #### 5 7307, 93885 #### [facility] [address] [place] [address], [place] Glucose [Mass/Vol] 249 mg/dL High 70-100 [facility] Comment on above: Performed By: #### 5 7307, 40339 #### [facility] [address] [place] [address], [place] PROCALCITONINon 04-10-2021 PROCALCITONIN 0.09 ng/mL Normal 0.00-0.10 [facility] Comment on above: Order Comment: No: D [...] initial PCT<0.5ng/mL Performed By: #### 5 7307, 64028 #### [address] PROTHROMBIN TIMEon 1 INR Coag (PPP) [Relative time] 1.07 {INR} Normal 0.91-1.16 [facility] Comment on above: Order Comment: No: D o not add to previous draw Result Comment: [facility] P RECOMMENDED INR FOR WARFARIN THERAPY [...] CHEST 1995;108:231S-246S. Performed By: #### 5 7307, 10365 #### [facility] [address] PT Coag (PPP) [Time] 13.9 s Normal 12.3-14.8 [facility] Comment on above: Order Comment: No: D o not add to previous draw Result Comment: ALL RESULTS MUST BE INTERPRETED WITH RESPECT TO BLOOD DRAWING ARTIFACT OR DILUTION ERROR OF ANTICOAGULANT AT THE TIME OF SAMPLING. Performed By: #### 5 7307, 38742 #### [facility] [address] [facility] [address], [facility] TROPONIN-Ion 04-10-2021 Troponin I.cardiac [Mass/Vol] 0.07 ng/mL High 0.00-0.04 [facility] Comment on above: Order Comment: No: D o not add to previous draw Result Comment: REFE RENCE RANGES: 0.00 - 0.04 ng/ml NORMAL 0.05 - 0.50 ng/ml INDETERMINATE > 0.50 ng/ml CONSISTENT WITH AN M.I. Performed By: #### 3 5249, 96860, 68370 #### [facility] [address] [facility]. [address] Troponin I.cardiac [Mass/Vol] 0.07 ng/mL High 0.00-0.04 [facility] Comment on above: Order Comment: No: D o not add to previous draw Result Comment: REFE RENCE RANGES: 0.00 - 0.04 ng/ml NORMAL 0.05 - 0.50 ng/ml INDETERMINATE > 0.50 ng/ml CONSISTENT WITH AN M.I. Performed By: #### 1 0070, 50122, 15991 #### [facility] [address] [facility]. [address] TSH3 WITH REFLEX FT4on 04-10 TSH 3RD GENERATION 0.95 uIU/mL Normal 0.34-5.60 [facility] Comment on above: Order Comment: Yes: Add to Previous draw if able Performed By: #### 3 1569 #### [facility] [address] [facility]. [address] TSH 3RD GENERATION 3.12 uIU/mL Normal 0.34-5.60 [facility] Comment on above: Performed By: #### 3 1569, 26289, 45692 #### [facility] [address] [facility] UFH HEPARIN ASSAYon 04-10-20 21 UNFRACTIONATED [...] and LMWH. Performed By: #### 5 7307, 93876 #### [facility] [address] [facility]. [address] Cardiovascular Lab Reporton 01-30-2021 Cardiovascular Lab Report [facility] Patient Name: Diana Alvarez [facility] S MR #: [id number] Department of Physician: London Ross M.D. Division of Service Date: 01/30/2021 Cardiology Birthdate: 1970 Adult Cardiovascular Room #: [facility] [address] [place] [address] Cardiovascular Laboratory Report FINAL IMPRESSIONS: 1. Moderately [...] 5. Follow up with Cardiology in the [facility] Cardiology office in the next [...] right internal jugular vein was obtained. A 6-Iranian glide sheath was inserted without difficulty. A [...] Bear M.D. Date Trans: 01/30/2021 02:48 P/mmo [id number] cc: Phillip Ann M.D. [address], [facility] [id number] [facility] Vital Signs Date Time Vital Sign Value Performing Clinician Iman stafford 04-04-2024 13:58-0400 Blood Pressure Location Juan Miguel NILL [facility] [place] 04-04-2024 13:58-0400 Diastolic blood pressure 76 mm[Hg] Juan Miguel NILL [facility] 04-04-2024 13:58-0400 Heart rate 72 /min Juan Miguel NILL [facility] General [facility] [place] 04-04-2024 13:58-0400 Respiratory rate 16 /min Juan Miguel NILL [facility] 04-04-2024 13:58-0400 Systolic blood pressure 122 mm[Hg] Juan Miguel NILL [facility] 09-15-2022 15:24-0500 Blood Pressure Location Juan Miguel NILL [facility] [place] 09-15-2022 15:24-0500 Diastolic blood pressure 78 mm[Hg] Juan Miguel NILL [facility] [place] 09-15-2022 15:24-0500 Heart rate 70 /min Juan Miguel NILL [facility] [place] 09-15-2022 15:24-0500 Respiratory rate 16 /min Juan Miguel NILL [facility] 09-15-2022 15:24-0500 Systolic blood pressure 116 mm[Hg] Juan Miguel NILL [facility] [place] Encounters Encounter Date Encounter Type Care Provider Facility Start: 09-12-2024 End: 09-12-2024 ambulatory [facility] Start: 06-09-2024 ambulatory [facility] Start: 05-24-2024 ambulatory [facility] Start: 04-19-2024 End: 04-19-2024 ambulatory Juan Miguel CHAVEZ Facility:CD:[id number] Start: 04-17[facility]24 [facility] Start: 04-13-2024 End: 04-13-2024 ambulatory [facility] Start: 04-13-2024 End: 04-13-2024 Encounter for other preprocedural examination [facility] Start: 04-04-2024 End: 04-04-2024 ambulatory Juan Miguel CHAVEZ Facility: [place] Start: 04-04-2024 End: 04-04-2024 Patient encounter procedure Juan Miguel CHAVEZ [facility] [place] Start: 01-11-2024 ambulatory [facility] Start: 12-28-2023 ambulatory [facility] Start: 10-26-2023 End: 10-26-2023 ambulatory [facility] Start: 11-17-2022 End: 11-17-2022 ambulatory [...] Evaluation and management of inpatient PHILLIP ANN Facility:[facility] Start: 01-30-2021 End: 01-31-2021 ambulatory CASSY BEAR Facility:[facility] Procedures Date Procedure Procedure Detail Performing Clinician Start: 04-11-2021 Anabaptism of Cardi ac Rhythm, Single SAMER Sony [...] Date Immunization Notes Care Provider Fa [facility] 04-18-2022 influenza virus vaccine, unspecified formulation Juan Miguel [facility]L [facility] 10-29-2020 SARS-CoV-2 (COVID-19 ) mRNA-1273 vaccine Juan Miguel NILL [facility] 10-25-2020 SARS-CoV-2 (COVID-19 ) mRNA BNT-162b2 vax [facility] Comment on above: Result Comment: 2022: [id number] 10-24-2020 SARS-CoV-2 (COVID-19 ) mRNA BNT-162b2 vax [facility] 10-04-2020 SARS-CoV-2 (COVID-19 ) mRNA BNT-162b2 vax [facility] Comment on above: Result Comment: 2022: [id number] 10-03-2020 SARS-CoV-2 (COVID-19 ) mRNA BNT-162b2 vax [facility] Payers Date Payer Category Payer Unknown [id number] 1970 Unknown [id number] 2.16.8 [id number] 1970 Unknown [id number] 2.16.8 40.1.354975.3.579.2.647 1970 Unknown [id number] 2.16.84 0.1.040073.3.579.2.593 1970 Unknown [id number] 2.16.84 0.1.301463.3.579.2.593 1970 Unknown [id number] 2.16.84 0.1.063502.3.579.2.593 1970 Unknown [id number] 2.16.84 0.1.128456.3.579.2.593 1970 Unknown [id number] 2.16.84 0.1.439003.3.579.2.593 1970 Unknown [id number] 2.16.84 0.1.360706.3.579.2.593 1970 Unknown [id number] 2.16.84 0.1.131217.3.579.2.593 1968 Unknown [id number] 2.16.84 0.1.781510.3.579.2.593 1968 Unknown [id number] 2.16.84 0.1.156333.3.579.2.593 1968 Unknown [id number] 2.16.84 0.1.482840.3.579.2.593 1968 Unknown [id number] 2.16.84 0.1.365747.3.579.2.593 1968 Unknown [id number] 2.16.84 0.1.083624.3.579.2.593 1968 Unknown [id number] 2.16.84 0.1.792495.3.579.2.593 1970 Unknown [id number] 2.16.8 40.1.246097.3.579.2.727 1970 Unknown [id number] 2.16.8 40.1.833499.3.579.2.727 1961 Unknown [id number] 1961 Unknown [id number] 1961 Unknown [id number] 1961 Unknown [id number] Social History Date Type Detail Facility Start: 09-15-2022 End: 04-04-2024 Tobacco smoking status Ex-smoker (finding) [facility] [place] Tobacco smoking status Never [facility] [place] Sex Assigned At Female [facility] Medical Equipment Procedure Code Equipment Code Equipment Origin al Text Equipment Identifier Dates lancets, glucome ter, alcohol swabs, testing strips, insulin pen needles, Print Requisition, Supply Start: 08-25-2021 lancets, glucome ter, alcohol swabs, testing strips, insulin pen needles, Print Requisition, Supply Start: 08-25-2021 Functional Status Date Assessment Result Facility 04-04-2024 Functional Status N/A [facility] [place] 09-15-2022 Functional Status N/A [facility]to [facility] Clinical Notes 04-12-2021 to 09-12-2024 Note Date & Type Note Facility 09-12-2024 Note [place] [facility] Consul t Note Reason for visit: [...] trended upwards is a since seen in [facility] 04/28/2023 and was diagnosed with vertigo [...] Not on file (more content not included)... [facility] 04-13-2024 Note Cardiovascular Medic ine [facility] SUBJECTIVE Chief Complaint Patient presents with [...] trended upwards is a since seen in [facility] 04/28/2023 and was diagnosed with vertigo [...] to 70% with a small pericardial effusion NHNUG performed on 04/12/2021 showed EF of 55 [...] disease (CMS/HCC) C (more content not included)... [facility] 04-13-2024 Note Patient here for 6 [...] systems reviewed and are negative. [facility] 04-04-2024 Note General Surgery Offi ce/Clinic [...] Diabetes Diverticulosis Ep (more content not included)... [facility] Comment on above: Result [...] systems reviewed and are negative. [facility] 10-26-2023 Note Cardiovascular Medic ine [facility] SUBJECTIVE Chief Complaint Patient presents with [...] trended upwards is a since seen in [facility] 04/28/2023 and was diagnosed with vertigo [...] disease (CMS/HCC) Cystic kidney disease Depression Diabetes ([facility]/HCC) Diverticulosis Fibrocystic disease of breast Gout History of pericarditis IBS (irritable bowel syndrome) Insomnia Low back pain syndrome Migraines Mild aortic stenosis LILLIANA (obstructive sleep apnea) PAF (paroxysmal atrial fi (more content not included)... [facility] 11-17-2022 Note PROCEDURE: XR CHEST 1 [...] by: AUDREY BO Date: 2022-11-17 12:14 [facility] 04-12-2021 Note MR#: [id number] [facility] [...] hypertension, and diabetes, who was sent from [facility] due to atrial flutter with RVR due to COPD exacerbation. The patient was initially treated with IV Cardizem, however, it was changed to p.o. prior to transfer. The patient was also given loading dose digoxin. The patient was transferred to [facility] for cardioversion. HOSPITAL COURSE: 1. New-onset atrial flutter with RVR status post HNUNG cardioversion. The patient was discharged on Eliquis [...] Wick MD Date Trans: 04/12/2021 03:25 P/marixa [id number] cc: Phillip Ann M.D. [address] [place] [address] [facility] Evaluation + Plan note No data available for this section [facility] Discharge instructions No data available for this section [facility] Progress note No data available for this section [facility] Summary Purpose Family History No Family History [...] and content) DATE CREATED AUTHOR 09/10/2021 [facility] DATE CREATED AUTHOR AUTHOR'S ORGANIZ ATION 12/24/2021 [facility] DATE CREATED AUTHOR AUTHOR'S ORGANIZ ATION 11/20/[address] [facility] DATE CREATED AUTHOR AUTHOR'S ORGANIZ ATION [facility]/2024 [facility] DATE CREATED AUTHOR AUTHOR'S ORGANIZ ATION 09/13/2024 [facility] Patient Care team informatio n (unrecognized section and content) Personnel Name: Phillip Ann MD Address: Address: [address] [place] [address] Personnel Name: Phillip Ann MD Address: Address: [address] [place] [address] FOR RECORDS PERTAINING TO PATIENTS WHO ARE [...] BE BASED ON THE PRIMARY CLINICAL RECORDS. [facility] [employer] provides no warranty or guarantee of the accuracy or completeness of information in this document.
[2024-09-15 09:58] LABS: Alanine Aminotransferase 11 U/L (14-59); Albumin Globulin Ratio 0.9; Albumin Level 3.4 g/dL (3.4-5.0); Alkaline Phosphatase 120 U/L (46-116); Anion Gap 10.5; Aspartate Amino Transferase 13 U/L (15-37); BUN Creatinine Ratio 12.3; Bilirubin Total 1.4 mg/dL (0.2-1.0); Calcium 9.3 mg/dL (8.5-10.1); Carbon Dioxide 31.8 mmol/L (21.0-32.0); Chloride 103 mmol/L (98-107); Cholesterol 132 mg/dL (<=200); Estimated GFR (African America 60 (>=60 mL/min/1.73m^2); Estimated GFR (Non-African Ame 49 (>=60 mL/min/1.73m^2); Free T3 2.65 pg/mL (2.18-3.98); Globulin 3.7 g/dL; Glucose 91 mg/dL (74-106); HDL Cholesterol 44 mg/dL (40-60); Potassium 3.3 mmol/L (3.5-5.1); Sodium 142 mmol/L (136-145); Thyroid Stimulating Hormone 1.425 uIU/mL (0.358-3.740); Total Protein 7.1 g/dL (6.4-8.2); Triglycerides 175 mg/dL (<=150)
[2024-09-15 13:08] LABS: Estimated Average Glucose 111 mg/dL; Glycohemoglobin A1C 5.5 % (4.5-6.2)
== END 2024-09-15 08:32 | disposition home or self-care (01) ==
LOC: LAB 08:31
PROVIDERS: PCP Family Medicine; Visit Provider Family Medicine
DX: Z00.00 Encounter for general adult medical examination without abnormal findings (principal); R73.09 Other abnormal glucose; D64.9 Anemia, unspecified; E03.9 Hypothyroidism, unspecified; I50.30 Unspecified diastolic (congestive) heart failure
CPT/HCPCS: 36415; 80053; 80061; 83036; 83540; 83880; 84436; 84443; 84481; 85025

== ENCOUNTER 2024-10-28 17:26 | Emergency (ER) | payer OTHER, SELFPAY ==
[2024-10-28 17:30] VITALS: BP 123/87; PULSE 77; TEMP 36.6; O2SAT 99; BMI 26.0
--- NOTE | 2024-10-28 17:34 | PC.NURSE ---
History of gout, redness and pain to right foot, no drainage.
--- OUTSIDE RECORDS SUMMARY | 2024-10-28 17:34 | XMS_ITS | CCD ---
Author Organization [facility] Care Team Providers Care Manager Supply Chain Planning Name Role Phone CASSY BEAR A Admitting Unavailable CASSY BEAR Attending Unavailable PHILLIP ANN Referring Unavailable PHILLIP ANN Primary Care Unavailable PHILLIP ANN Referring Unavailable XIAO TORRES Surgeon Unavailable ALBERT HUI Attending Unavailable CALLI PAIGE Admitting Unavailable PA Procedure Practitioner Unavailab PHILLIP Muñoz Primary Care Unavailable PA Procedure Practitioner Unavailab Dunia Light Surgeon Unavailsindhu [...] CHAVEZ Attending Unavailable MANOJ, CURTIS Referring Unavailable MANOJ, CURTIS Referring Unavailable MANOJ, CURTIS Referring Unavailable MANOJ, CURTIS Referring Unavailable MANOJ, CURTIS Referring Unavailable GHANSHYAM, BESSIE Referring Unavailable MANOJ, CURTIS Referring Unavailable MANOJ, CURTIS Referring Unavailable MANOJ, CURTIS Referring Unavailable MANOJ, CURTIS Referring Unavailable MANOJ, CURTIS Referring Unavailable SANTIAGOJENNA WEISS Attending Unavailable MANOJ, CURTIS Attending Unavailable SANTIAGOJENNA WEISS Attending Unavailable MANOJ, CURTIS Referring Unavailable MANOJ, CURTIS Referring Unavailable MANOJ, CURTIS Referring Unavailable Allergies Allergy Classification Reported Allergen(s) Allergy Type Date of Onset Reaction(s) Facility (4 sources) Morphine; Translations: [morphine] Drug Allergy 9 [facility] Repository (1 source) 43162,00; Translations: [16579,00] Propensity to adverse reactions (disorder) 0 [facility] Repository (2 sources) Morphine; Translations: [morphine] Drug Allergy Feeling nervous (finding), Tachycardia (finding) General Surgery [facility] (1 source) No Known Medication Allergies; Translations: [No Known Medication Allergies] Propensity to adverse reactions (disorder) [facility] Repository (1 source) dulaglutide; Translations: [DULAGLUTIDE] Drug Allergy 3 [facility] Repository Medications Current Medications Medication Drug Class(es) Dates Sig (Normalized) Sig (Original) 3 ML semaglutide 2.68 MG/ML Pen Injector [Ozempic] (1 source) Start: 03-16-2024 inject 2 mg by subcutaneous injection every week Ozempic 8 mg/3 mL (2 mg dose) subcutaneous solution 2 mg, SubCutaneous, qWeek, Refills(s) 0 Start Date: 03/16/24 Status: Ordered [id number] 200 actuat albuterol 0.09 mg/actuat metered dose [...] lower respiratory infection] Onset: 11-19-2022 09-03-2022 Chronic Conditions associated with dizziness or vertigo (2 sources) Dizziness and giddiness; Translations: [Dizziness and giddiness] Onset: 10-26-2024 Episodic Congestive heart failure; nonhypertensive (4 sources) Chronic diastolic heart failure; Translations: [Chronic diastolic (congestive) heart failure] Onset: 01-27-2023 09-03-2022 Chronic Coronary atherosclerosis and other heart disease (1 source) Atherosclerotic heart disease of [place] coronary artery without angina pectoris; Translations: [ASHD QUE[place] CA W/O ANGINA PECTORIS] Onset: 08-11-2022 Chronic [...] disorders (2 sources) Hypokalemia; Translations: [Hypokalemia] Onset: 10-26-2024 Episodic Gout and other crystal arthropathies (3 sources) Gout; Translations: [Gout, unspecified] Onset: 10-30-2022 09-03-2022 Chronic Headache; including migraine (3 sources) Migraine; Translations: [Tension-type headache, unspecified, not intractable] Onset: 08-11-2022 09-03-2022 Chronic Headache; including migraine (1 source) Headache; including migraine; Translations: [HEADACHE UNSPECIFIED] Onset: 11-19-2022 Heart valve disorders (2 sources) Cardiac murmur, unspecified; Translations: [Cardiac murmur, unspecified] Onset: 10-26-2024 Episodic Hypertension with complications and secondary hypertension (2 sources) Hypertensive heart disease with heart failure; Translations: [Hypertensive heart disease with heart failure] Onset: 09-12-2024 Chronic Malaise and fatigue (1 source) Other [...] Onset: 09-13-2022 Chronic Other aftercare (1 source) bulk picker (current) use of anticoagulants; Translations: [CUSTODIAL CURRNT USE ANTICOAGULANTS] Onset: 11-19-2022 Episodic Other aftercare (1 source) Other m[facility] (current) drug therapy; Translations: [OTH CUSTODIAL CURRENT DRUG THERAPY] Onset: 11-19-2022 Episodic Other aftercare (1 source) snf (current) use of oral hypoglycemic drugs; Translations: [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 ORAL HYPOGLYCEMIC DX] Onset: 11-19-2022 Episodic [...] Translations: [Cardiomyopathy in diseases classified elsewhere] Onset: 09-12-2024 Chronic Shannon-; endo-; and myocarditis; cardiomyopathy (except that caused by tuberculosis or sexually transmitted disease) (2 sources) Pericardial effusion 09-03-2022 Episodic Pulmonary heart disease (2 sources) Pulmonary hypertension 09-03-2022 Chronic Residual codes; unclassified (2 sources) Obstructive sleep apnea syndrome 09-03-2022 Chronic Residual codes; unclassified (1 source) Sleep apnea, unspecified; Translations: [SLEEP APNEA UNSPECIFIED] Onset: 11-19-2022 Chronic Residual codes; unclassified (2 sources) Insomnia [...] sources) Palpitations; Translations: [Palpitations] Onset: 12-28-2023 Episodic Gastritis and duodenitis (1 source) Gastritis, [...] Test Name Value Interpretation Reference Range Facility 37on 10-26-2024 37 *We will decrease your lasix to 20mg every other day. *Hold your isosorbide and continue to monitor your blood pressure. Call us in 2 weeks with your readings. *Your last labs showed potassium was low at 3.3. Will order for potassium supplement 10mEq daily. *Repeat labs in 1 month. Normal [facility] Office Visiton 10-26-2024 Follow-up visit [id number] Diana Alvarez Brodie 1970 Date Provider Department Center 10/26/2024 JENNA ABREU Family History Problem Relation Age of Onset Breast cancer Mother Aneurysm Mother Stroke Mother Heart attack Father Coronary artery disease Father Stroke Sister Family Status - Relation Status Age at Mother Father Alive Sister Level of Service:22121 PA OFFICE/OUTPATIENT ESTABLISHED MOD MDM 30 MIN Reason for Visit and Comments: Atrial Fibrillation [80] Dizziness [322502] Hypertension [766299] Normal [facility] Follow-Upon 09-12-2024 Follow-Up [id number] Diana Alvarez Brodie 1970 Date Provider Department Center 09/12/2024 CURTIS VALDES Family History Problem Relation Age of Onset Breast cancer Mother Aneurysm Mother Stroke Mother Heart attack Father Coronary artery disease Father Family Status - Relation Status Age at Mother Father Level of Service:83241 PA OFFICE/OUTPATIENT ESTABLISHED LOW MDM 20 MIN Normal [facility] Reminderson 04-20-2024 Reminders Reminders - From: Jacqueline Huerta LPN To: N - Clinical; Sent: 04/20/2024 11:34:18 EDT Show up: 03/20/2034 07:00:00 EDT Subject: colonoscopy recall Due Date/Time: 04/19/2034 07:00:00 EDT Reminder/Recall Patient due for screening colonoscopy 04/19/2034. Normal [facility] Office Visiton 04-13-2024 Follow-up visit [id number] Diana Alvarez 1970 F Date Provider Department Center 04/13/2024 JENNA ABREU [facility] Family History Problem Relation Age of Onset Breast cancer Mother Aneurysm Mother Stroke Mother Heart attack Father Coronary artery disease Father Family Status - Relation Status Age at Mother Father Level of Service:58637 PA OFFICE/OUTPATIENT ESTABLISHED MOD MDM 30 MIN Reason for Visit and Comments: Pre-op Exam [274961] Atrial Fibrillation [80] Hypertension [189567] Normal [facility] Ambulatory Visit Summaryon 0 04-04-2024 Ambulatory Visit [...] Tachycardia) Problems (more content not included)... Normal [facility] 01-12-2024 36 BP is elevated. I encourage diet and routine exercise which can help her BP. In the mean time, would like to start her on lisinopril 5mg daily with follow-up BMP in 2 weeks. Thanks! [facility] 01-11-2024 36 Pt calling with bp's 156/83 133/78 147/80 146/78 157/72 148/80 120/80 [facility] 12-23-2023 36 Regarding echo performed on [...] weeks with readings. She verbalized understanding. Normal [facility] Telephoneon 12-23-2023 Telephone [id number] Diana Alvarez 1970 F Date Provider Department Center 12/23/2023 Nayana-MIGUEL FERMIN [facility] Family History Problem Relation Age of Onset Breast cancer Mother Aneurysm Mother Stroke Mother Heart attack Father Coronary artery disease Father Family Status - Relation Status Age at Mother Father Normal [facility] 36on 11-10-2023 36 Call reference # [id number]. - Approval # [id number] approved from 11/05/23 - 01/04/24. Normal [facility] CBC AUTO DIFFon 10-28-2022 BASO # 0.0 103/ul Normal 0.0-0.1 [facility] Comment on above: Performed By: #### L IPID, CMP, T4, TSH, FT3 #### [facility] [address] [place] [address] Dr. Mendel Herron Basophils/100 WBC (Bld) 0.2 % Normal 0.2-2.0 [facility] Comment on above: Performed By: #### L IPID, CMP, T4, TSH, FT3 #### [facility] [address] [address] [address] Mendel Herron EO # 0.0 103/ul Normal 0.0-0.7 [facility] Comment on above: Performed By: #### L IPID, CMP, T4, TSH, FT3 #### [facility] [address] [address] [address] Mendel Herron Eosinophils/100 WBC (Bld) 0.3 % Critically low 0.9-7.0 [facility] Comment on above: Performed By: #### L IPID, CMP, T4, TSH, FT3 #### [facility] [address] [place] [address] Dr. Mendel Herron Erythrocyte distribution width (RBC) [Ratio] 13.6 % Normal 11.0-15.0 [facility] Comment on above: Performed By: #### L IPID, CMP, T4, TSH, FT3 #### [facility] [address] [place] [address] Dr. Mendel Herron Hematocrit (Bld) [Volume fraction] 40.1 % Normal 36.0-48.0 [facility] Comment on above: Performed By: #### L IPID, CMP, T4, TSH, FT3 #### [facility] [address] [place] [address] Dr. Mendel Herron Hemoglobin (Bld) [Mass/Vol] 13.0 g/dL Normal 12.0-16.0 [facility] Comment on above: Performed By: #### L IPID, CMP, T4, TSH, FT3 #### [facility] [address] [place] [address] Dr. Mendel Herron IG # 0.06 10e3/ul Critically high 0.00-0.03 [facility] Comment on above: Performed By: #### L IPID, CMP, T4, TSH, FT3 #### [facility] [address] [place] [address] Dr. Mendel Herron IG % 0.5 % Normal 0.0-0.5 [facility] Comment on above: Performed By: #### L IPID, CMP, T4, TSH, FT3 #### [facility] [address] [place] [address] Dr. Mendel Herron LYMPH # 2.8 103/ul Normal 1.2-3.8 [facility] Comment on above: Performed By: #### L IPID, CMP, T4, TSH, FT3 #### [facility] [address] [place] [address] Dr. Mendel Herron Lymphocytes/100 WBC (Bld) 22.4 % Normal 20.5-60.0 [facility] Comment on above: Performed By: #### L IPID, CMP, T4, TSH, FT3 #### [facility] [address] [place] [address] Dr. Mendel Herron MANUAL DIFF REQ NO Normal [facility] Comment on above: Performed By: #### L IPID, CMP, T4, TSH, FT3 #### [facility] [address] [place] [address] Dr. Mendel Herron MCH (RBC) [Entitic mass] 30.8 pg Normal 26.7-34.0 [facility] Comment on above: Performed By: #### L IPID, CMP, T4, TSH, FT3 #### [facility] [address] [place] [address] Dr. Mendel Herron MCHC (RBC) [Mass/Vol] 32.4 g/dL Normal 29.9-35.2 [facility] Comment on above: Performed By: #### L IPID, CMP, T4, TSH, FT3 #### [facility] [address] [place] [address] Dr. Mendel Herron MCV (RBC) [Entitic vol] 95.0 fL Normal 81.0-99.0 [facility] Comment on above: Performed By: #### L IPID, CMP, T4, TSH, FT3 #### [facility] [address] [place] [address] Dr. Mendel Herron MONO # 0.9 103/ul Critically high 0.3-0.8 [facility] Comment on above: Performed By: #### L IPID, CMP, T4, TSH, FT3 #### [facility] [address] [place] [address] Dr. Mendel Herron Monocytes/100 WBC (Bld) 7.2 % Normal 1.7-12.0 [facility] Comment on above: Performed By: #### L IPID, CMP, T4, TSH, FT3 #### [facility] [address] [place] [address] Dr. Mendel Herron NEUT # 8.6 103/ul Critically high 1.4-6.5 [facility] Comment on above: Performed By: #### L IPID, CMP, T4, TSH, FT3 #### [facility] [address] [place] [address] Dr. Mendel Herron Neutrophils/100 WBC (Bld) 69.4 % Normal 43.0-75.0 [facility] Comment on above: Performed By: #### L IPID, CMP, T4, TSH, FT3 #### [facility] [address] [address] [address] Mendel Herron Platelet mean volume (Bld) [Entitic vol] 9.9 fL Normal 9.5-13.5 [facility] Comment on above: Performed By: #### L IPID, CMP, T4, TSH, FT3 #### [facility] [address] [address] [address] Mendel Herron PLT 297 103/ul Normal 150-450 [facility] Comment on above: Performed By: #### L IPID, CMP, T4, TSH, FT3 #### [facility] [address] [address] [address] Mendel Herron RBC 4.22 106/ul Normal 4.20-5.40 [facility] Comment on above: Performed By: #### L IPID, CMP, T4, TSH, FT3 #### [facility] [address] [place] [address] Dr. Mendel Herron WBC 12.4 103/ul Critically high 4.0-11.0 [facility] Comment on above: Performed By: #### L IPID, CMP, T4, TSH, FT3 #### [facility] [address] [place] [address] Dr. Mendel Herron CRPon 10-28-2022 CRP 1.3 mg/dL Critically high <=1.0 [facility] Comment on above: Performed By: #### L IPID, CMP, T4, TSH, FT3 #### [facility] [address] [place] [address] Dr. Mendel Herron PROF CHEM 8 (BAS METB)on Anion gap [Moles/Vol] 13.6 mmol/L Normal [facility] Comment on above: Performed By: #### L IPID, CMP, T4, TSH, FT3 #### [facility] [address] [place] [address] Dr. Mendel Herron Calcium [Mass/Vol] 9.3 mg/dL Normal 8.5-10.1 [facility] Comment on above: Performed By: #### L IPID, CMP, T4, TSH, FT3 #### [facility] [address] [address] [address] Mendel Herron Chloride [Moles/Vol] 102 mmol/L Normal 98-107 [facility] Comment on above: Performed By: #### L IPID, CMP, T4, TSH, FT3 #### [facility] [address] [address] [address] Mendel Herron CO2 [Moles/Vol] 30.7 mmol/L Normal 21.0-32.0 [facility] Comment on above: Performed By: #### L IPID, CMP, T4, TSH, FT3 #### [facility] [address] [place] [address] Dr. Mendel Herron Creatinine [Mass/Vol] 0.85 mg/dL Normal 0.55-1.02 [facility] Comment on above: Performed By: #### L IPID, CMP, T4, TSH, FT3 #### [facility] [address] [address] [address] Mendel Herron EGFR-AF GUATEMALAN >60 Normal >=60 [facility] Comment on above: Performed By: #### L IPID, CMP, T4, TSH, FT3 #### [facility] [address] [place] [address] Dr. Mendel Herron EGFR-NON AF GUATEMALAN >60 Normal >=60 [facility] Comment on above: Performed By: #### L IPID, CMP, T4, TSH, FT3 #### [facility] [address] [address] [address] Mendel Herron Glucose [Mass/Vol] 101 mg/dL Normal 74-106 [facility] Comment on above: Performed By: #### L IPID, CMP, T4, TSH, FT3 #### [facility] [address] [address] [address] Mendel Herron Potassium [Moles/Vol] 3.3 mmol/L Critically low 3.5-5.1 [facility] Comment on above: Performed By: #### L IPID, CMP, T4, TSH, FT3 #### [facility] [address] [address] [address] Mendel Herron Sodium [Moles/Vol] 143 mmol/L Normal 136-145 [facility] Comment on above: Performed By: #### L IPID, CMP, T4, TSH, FT3 #### [facility] [address] [address] [address] Mendel Herron Urea nitrogen [Mass/Vol] 12.0 mg/dL Normal 7.0-18.0 [facility] Comment on above: Performed By: #### L IPID, CMP, T4, TSH, FT3 #### [facility] [address] [address] [address] Mendel Herron Urea nitrogen/Creatinine [Mass ratio] 14.1 mg/mg Normal [facility] Comment on above: Performed By: #### L IPID, CMP, T4, TSH, FT3 #### [facility] [address] [address] [address] Mendel Herron URIC ACID SERUMon 10-28-2022 Urate [Mass/Vol] 7.8 mg/dL Critically high 2.6-6.0 [facility] Comment on above: Performed By: #### L IPID, CMP, T4, TSH, FT3 #### [facility] [address] [address] [address] Mendel Herron XR TOES RT MIN [...] GAIL PELLETIER Date: 2022-10-28 20:53 Normal [facility] Covid-19 PCR (CVDTB)on SARS-CoV-2 (COVID-19) RNA DEIRDRE+probe Ql (Unsp spec) Not detected Normal NOT DETECTED [facility] Comment on above: Result Comment: When diagnostic [...] for this test is supported by the [employer] Log[employer] Analyst of Health and Human Service's declaration that [...] L IPID, CMP, T4, TSH, FT3 #### [facility] [address] [place] [address] Dr. Mendel Herron CBC AUTO DIFFon 09-09-2022 BASO # 0.1 103/ul Normal 0.0-0.1 [facility] Comment on above: Performed By: #### L IPID, CMP, T4, TSH, FT3 #### [facility] [address] [place] [address] Dr. Mendel Herron Basophils/100 WBC (Bld) 0.7 % Normal 0.2-2.0 [facility] Comment on above: Performed By: #### L IPID, CMP, T4, TSH, FT3 #### [facility] [address] [place] [address] Dr. Mendel Herron EO # 0.1 103/ul Normal 0.0-0.7 [facility] Comment on above: Performed By: #### L IPID, CMP, T4, TSH, FT3 #### [facility] [address] [place] [address] Dr. Mendel Herron Eosinophils/100 WBC (Bld) 0.7 % Critically low 0.9-7.0 [facility] Comment on above: Performed By: #### L IPID, CMP, T4, TSH, FT3 #### [facility] [address] [place] [address] Dr. Mendel Herron Erythrocyte distribution width (RBC) [Ratio] 13.1 % Normal 11.0-15.0 [facility] Comment on above: Performed By: #### L IPID, CMP, T4, TSH, FT3 #### [facility] [address] [place] [address] Dr. Mendel Herron Hematocrit (Bld) [Volume fraction] 43.7 % Normal 36.0-48.0 [facility] Comment on above: Performed By: #### L IPID, CMP, T4, TSH, FT3 #### [facility] [address] [place] [address] Dr. Mendel Herron Hemoglobin (Bld) [Mass/Vol] 14.4 g/dL Normal 12.0-16.0 [facility] Comment on above: Performed By: #### L IPID, CMP, T4, TSH, FT3 #### [facility] [address] [place] [address] Dr. Mendel Herron IG # 0.11 10e3/ul Critically high 0.00-0.03 [facility] Comment on above: Performed By: #### L IPID, CMP, T4, TSH, FT3 #### [facility] [address] [place] [address] Dr. Mendel Herron IG % 1.3 % Critically high 0.0-0.5 [facility] Comment on above: Performed By: #### L IPID, CMP, T4, TSH, FT3 #### [facility] [address] [place] [address] Dr. Mendel Herron LYMPH # 2.4 103/ul Normal 1.2-3.8 [facility] Comment on above: Performed By: #### L IPID, CMP, T4, TSH, FT3 #### [facility] [address] [place] [address] Dr. Mendel Herron Lymphocytes/100 WBC (Bld) 27.9 % Normal 20.5-60.0 [facility] Comment on above: Performed By: #### L IPID, CMP, T4, TSH, FT3 #### [facility] [address] [place] [address] Dr. Mendel Herron MANUAL DIFF REQ NO Normal [facility] Comment on above: Performed By: #### L IPID, CMP, T4, TSH, FT3 #### [facility] [address] [place] [address] Dr. Mendel Herron MCH (RBC) [Entitic mass] 31.0 pg Normal 26.7-34.0 [facility] Comment on above: Performed By: #### L IPID, CMP, T4, TSH, FT3 #### [facility] [address] [place] [address] Dr. Mendel Herron MCHC (RBC) [Mass/Vol] 33.0 g/dL Normal 29.9-35.2 [facility] Comment on above: Performed By: #### L IPID, CMP, T4, TSH, FT3 #### [facility] [address] [place] [address] Dr. Mendel Herron MCV (RBC) [Entitic vol] 94.0 fL Normal 81.0-99.0 [facility] Comment on above: Performed By: #### L IPID, CMP, T4, TSH, FT3 #### [facility] [address] [place] [address] Dr. Mendel Herron MONO # 0.5 103/ul Normal 0.3-0.8 [facility] Comment on above: Performed By: #### L IPID, CMP, T4, TSH, FT3 #### [facility] [address] [place] [address] Dr. Mendel Herron Monocytes/100 WBC (Bld) 6.0 % Normal 1.7-12.0 [facility] Comment on above: Performed By: #### L IPID, CMP, T4, TSH, FT3 #### [facility] [address] [place] [address] Dr. Mendel Herron NEUT # 5.4 103/ul Normal 1.4-6.5 [facility] Comment on above: Performed By: #### L IPID, CMP, T4, TSH, FT3 #### [facility] [address] [place] [address] Dr. Mendle Herron Neutrophils/100 WBC (Bld) 63.4 % Normal 43.0-75.0 [facility] Comment on above: Performed By: #### L IPID, CMP, T4, TSH, FT3 #### [facility] [address] [place] [address] Dr. Mendel Herron Platelet mean volume (Bld) [Entitic vol] 9.8 fL Normal 9.5-13.5 [facility] Comment on above: Performed By: #### L IPID, CMP, T4, TSH, FT3 #### [facility] [address] [place] [address] Dr. Mendel Herron PLT 398 103/ul Normal 150-450 [facility] Comment on above: Performed By: #### L IPID, CMP, T4, TSH, FT3 #### [facility] [address] [place] [address] Dr. Mendel Herron RBC 4.65 106/ul Normal 4.20-5.40 [facility] Comment on above: Performed By: #### L IPID, CMP, T4, TSH, FT3 #### [facility] [address] [place] [address] Dr. Mendel Herron WBC 8.6 103/ul Normal 4.0-11.0 [facility] Comment on above: Performed By: #### L IPID, CMP, T4, TSH, FT3 #### [facility] [address] [place] [address] Dr. Mendel Herron FREE T3on 09-09-2022 FREE T3 2.59 pg/mlL Normal 2.18-3.98 [facility] Comment on above: Performed By: #### L IPID, CMP, T4, TSH, FT3 #### [facility] [address] [address] [address] Mendel Herron GLYCOHEMOGLOBIN A1Con 2022 ADA RECOMMENDATION SEE BELOW Normal [facility] Comment on above: Result Comment: ADA RECOMMENDED LIMIT 4.0 - 6.0 ADA THERAPEUTIC TARGET < 7.0 ACTION SUGGESTED > 7.0 Performed By: #### A 1C #### [facility] [address] [place] [address] Dr. Mendel Herron Glucose [Mass/Vol] 120 mg/dL Normal [facility] Comment on above: Performed By: #### A 1C #### [facility] [address] [place] [address] Dr. Mendel Herron HbA1c (Bld) [Mass fraction] 5.8 % Normal 4.5-6.2 [facility] Comment on above: Performed By: #### A 1C #### [facility] [address] [place] [address] Dr. Mendel Herron LIPID PROFILEon 09-09-2022 CHOL-HDL RATIO NORM SEE BELOW Normal [facility] Comment on above: Result Comment: 3.3 - 4.4 LOW RISK 4.4 - 7.1 AVERAGE RISK 7.1 - 11.0 MODERATE RISK >11.0 HIGH RISK Performed By: #### L IPID, CMP, T4, TSH, FT3 #### [facility] [address] [place] [address] Dr. Mendel Herron Cholesterol [Mass/Vol] 308 mg/dL Critically high <=200 [facility] Comment on above: Performed By: #### L IPID, CMP, T4, TSH, FT3 #### [facility] [address] [place] [address] Dr. Mendel Herron Cholesterol in HDL [Mass/Vol] 46 mg/dL Normal 40-60 [facility] Comment on above: Performed By: #### L IPID, CMP, T4, TSH, FT3 #### [facility] [address] [place] [address] Dr. Mendel Herron Cholesterol in LDL [Mass/Vol] 212.6 mg/dL Normal [facility] Comment on above: Performed By: #### L IPID, CMP, T4, TSH, FT3 #### [facility] [address] [address] [address] Mendel Herron Cholesterol.total/Ch olesterol in HDL [Mass ratio] 6.7 {ratio} Normal [facility] Comment on above: Performed By: #### L IPID, CMP, T4, TSH, FT3 #### [facility] [address] [address] [address] Mendel Herron HDL NORMAL > or = 60 mg/dl - LOW CARDIOVASCULAR RISK <40 mg/dl - HIGH CARDIOVASCULAR RISK Normal [facility] Comment on above: Performed By: #### L IPID, CMP, T4, TSH, FT3 #### [facility] [address] [address] [address] Mendel Herron LDL CALC NORMAL SEE BELOW Normal [facility] Comment on above: Result Comment: <100 mg/dl OPTIMAL 100 - 129 mg/dl NEAR OR ABOVE OPTIMAL 130 - 159 mg/dl BORDERLINE HIGH 160 - 189 mg/dl HIGH >190 mg/dl VERY HIGH Performed By: #### L IPID, CMP, T4, TSH, FT3 #### [facility] [address] [address] [address] Mendel Herron Triglyceride [Mass/Vol] 247 mg/dL Critically high <=150 [facility] Comment on above: Performed By: #### L IPID, CMP, T4, TSH, FT3 #### [facility] [address] [address] [address] Mendel Herron VLDL CALC 49.4 mg/dL Normal [facility] Comment on above: Performed By: #### L IPID, CMP, T4, TSH, FT3 #### [facility] [address] [address] [address] Mendel Herron PROF 14(COMP METB)on 023 Albumin [Mass/Vol] 4.0 g/dL Normal 3.4-5.0 [facility] Comment on above: Performed By: #### L IPID, CMP, T4, TSH, FT3 #### [facility] [address] [address] [address] Mendel Herron Albumin/Globulin [Mass ratio] 0.9 {ratio} Normal [facility] Comment on above: Performed By: #### L IPID, CMP, T4, TSH, FT3 #### [facility] [address] [place] [address] Dr. Mendel Herron ALP [Catalytic activity/Vol] 115 U/L Normal 46-116 [facility] Comment on above: Performed By: #### L IPID, CMP, T4, TSH, FT3 #### [facility] [address] [place] [address] Dr. Mendel Herron ALT [Catalytic activity/Vol] 30 U/L Normal 14-59 [facility] Comment on above: Performed By: #### L IPID, CMP, T4, TSH, FT3 #### [facility] [address] [place] [address] Dr. Mendel Herron Anion gap [Moles/Vol] 12.7 mmol/L Normal [facility] Comment on above: Performed By: #### L IPID, CMP, T4, TSH, FT3 #### [facility] [address] [place] [address] Dr. Mendel Herron AST [Catalytic activity/Vol] 18 U/L Normal 15-37 [facility] Comment on above: Performed By: #### L IPID, CMP, T4, TSH, FT3 #### [facility] [address] [place] [address] Dr. Mendel Herron Bilirubin [Mass/Vol] 0.7 mg/dL Normal 0.2-1.0 [facility] Comment on above: Performed By: #### L IPID, CMP, T4, TSH, FT3 #### [facility] [address] [place] [address] Dr. Mendel Herron Calcium [Mass/Vol] 9.7 mg/dL Normal 8.5-10.1 [facility] Comment on above: Performed By: #### L IPID, CMP, T4, TSH, FT3 #### [facility] [address] [place] [address] Dr. Mendel Herron Chloride [Moles/Vol] 103 mmol/L Normal 98-107 [facility] Comment on above: Performed By: #### L IPID, CMP, T4, TSH, FT3 #### [facility] [address] [address] [address] Mendel Herron CO2 [Moles/Vol] 26.5 mmol/L Normal 21.0-32.0 [facility] Comment on above: Performed By: #### L IPID, CMP, T4, TSH, FT3 #### [facility] [address] [address] [address] Mendel Herron Creatinine [Mass/Vol] 0.83 mg/dL Normal 0.55-1.02 [facility] Comment on above: Performed By: #### L IPID, CMP, T4, TSH, FT3 #### [facility] [address] [place] [address] Dr. Mendel Herron EGFR-AF GUATEMALAN >60 Normal >=60 [facility] Comment on above: Performed By: #### L IPID, CMP, T4, TSH, FT3 #### [facility] [address] [place] [address] Dr. Mendel Herron EGFR-NON AF GUATEMALAN >60 Normal >=60 [facility] Comment on above: Performed By: #### L IPID, CMP, T4, TSH, FT3 #### [facility] [address] [place] [address] Dr. Menedl Herron Globulin (S) [Mass/Vol] 4.4 g/dL Normal [facility] Comment on above: Performed By: #### L IPID, CMP, T4, TSH, FT3 #### [facility] [address] [address] [address] Mendel Herron Glucose [Mass/Vol] 97 mg/dL Normal 74-106 [facility] Comment on above: Performed By: #### L IPID, CMP, T4, TSH, FT3 #### [facility] [address] [address] [address] Mendel Herron Potassium [Moles/Vol] 4.2 mmol/L Normal 3.5-5.1 [facility] Comment on above: Performed By: #### L IPID, CMP, T4, TSH, FT3 #### [facility] [address] [place] [address] Dr. Mendel Herron Protein [Mass/Vol] 8.4 g/dL Critically high 6.4-8.2 [facility] Comment on above: Performed By: #### L IPID, CMP, T4, TSH, FT3 #### [facility] [address] [place] [address] Dr. Mendel Herron Sodium [Moles/Vol] 138 mmol/L Normal 136-145 [facility] Comment on above: Performed By: #### L IPID, CMP, T4, TSH, FT3 #### [facility] [address] [place] [address] Dr. Mendel Herron Urea nitrogen [Mass/Vol] 12.0 mg/dL Normal 7.0-18.0 [facility] Comment on above: Performed By: #### L IPID, CMP, T4, TSH, FT3 #### [facility] [address] [place] [address] Dr. Mendel Herron Urea nitrogen/Creatinine [Mass ratio] 14.5 mg/mg Normal [facility] Comment on above: Performed By: #### L IPID, CMP, T4, TSH, FT3 #### [facility] [address] [place] [address] Dr. Mendel Herron T4on 09-09-2022 T4 [Mass/Vol] 8.80 ug/dL Normal 4.80-13.90 [facility] Comment on above: Performed By: #### L IPID, CMP, T4, TSH, FT3 #### [facility] [address] [place] [address] Dr. Mendel Herron TSHon 09-09-2022 TSH 0.898 uIU/mL Normal 0.358-3.740 [facility] Comment on above: Performed By: #### L IPID, CMP, T4, TSH, FT3 #### [facility] [address] [place] [address] Dr. Mendel Herron VITAMIN D 25 OHon 09-09-2022 VIT D 25-OH 24.0 ng/mL Normal [facility] Comment on above: Performed By: #### L IPID, CMP, T4, TSH, FT3 #### [facility] [address] [place], [place] [address] Dr. Mendel Herron VIT D RANGES SEE BELOW Normal [facility] Comment on above: Result Comment: <20 ng/mL Vit D deficient 20 - <30 ng/mL Vit D insufficient 30 - 100 ng/mL Vit D sufficient >100 ng/mL Potential Toxicity Performed By: #### L IPID, CMP, T4, TSH, FT3 #### [facility] [address] [place], [place] [address] Dr. Mendel Herron NM HEPATOBILIARY SCAN W [...] by: VIVI GARY Date: 2022-08-20 16:07 Normal [facility] US SINGLE QUAD RT UPPERon [...] JEAN LOPES Date: 2022-08-11 15:50 Normal [facility] CARDIAC SUBHA ADMITon 023 CK [Catalytic activity/Vol] 30 U/L Normal 26-192 [facility] Comment on above: Performed By: #### L IPID, CMP, T4, TSH, FT3 #### [facility] [address] [address] [address] Mendel Herron CK.MB [Mass/Vol] 1.02 ng/mL Normal <=3.60 [facility] Comment on above: Performed By: #### L IPID, CMP, T4, TSH, FT3 #### [facility] [address] [address] [address] Mendel Herron HSTROP 32.8 pg/mL Normal 4.0-51.3 [facility] Comment on above: Result Comment: CUT- OFF POINTS HAVE BEEN ESTABLISHED BASED ON THE FOURTH UNIVERSAL DEFINITIONS OF MYOCARDIAL INFARCTION. THE UPPER REFERENCE LIMIT (URL) OF TROPONIN, DEFINED THE 99TH PERCENTILE OF cTnI DISTRIBUTION IN A REFERENCE POPULATION, HAS BEEN CONFIRMED THE DECISION THRESHOLD FOR MO DIAGNOSIS. Performed By: #### L IPID, CMP, T4, TSH, FT3 #### [facility] [address] [address] [address] Mendel Herron SONYA 23 ng/mL Normal 9-82 [facility] Comment on above: Performed By: #### L IPID, CMP, T4, TSH, FT3 #### [facility] [address] [place] [address] Dr. Mendel Herron CBC AUTO DIFFon 08-09-2022 BASO # 0.0 103/ul Normal 0.0-0.1 [facility] Comment on above: Performed By: #### L IPID, CMP, T4, TSH, FT3 #### [facility] [address] [place] [address] Dr. Mendel Herron Basophils/100 WBC (Bld) 0.3 % Normal 0.2-2.0 [facility] Comment on above: Performed By: #### L IPID, CMP, T4, TSH, FT3 #### [facility] [address] [place] [address] Dr. Mendel Herron EO # 0.0 103/ul Normal 0.0-0.7 [facility] Comment on above: Performed By: #### L IPID, CMP, T4, TSH, FT3 #### [facility] [address] [place] [address] Dr. Mendel Herron Eosinophils/100 WBC (Bld) 0.3 % Critically low 0.9-7.0 [facility] Comment on above: Performed By: #### L IPID, CMP, T4, TSH, FT3 #### [facility] [address] [place] [address] Dr. Mendel Herron Erythrocyte distribution width (RBC) [Ratio] 13.1 % Normal 11.0-15.0 [facility] Comment on above: Performed By: #### L IPID, CMP, T4, TSH, FT3 #### [facility] [address] [place] [address] Dr. Mendel Herron Hematocrit (Bld) [Volume fraction] 42.7 % Normal 36.0-48.0 [facility] Comment on above: Performed By: #### L IPID, CMP, T4, TSH, FT3 #### [facility] [address] [place] [address] Dr. Mendel Herron Hemoglobin (Bld) [Mass/Vol] 15.4 g/dL Normal 12.0-16.0 [facility] Comment on above: Performed By: #### L IPID, CMP, T4, TSH, FT3 #### [facility] [address] [place] [address] Dr. Mendel Herron IG # 0.05 10e3/ul Critically high 0.00-0.03 [facility] Comment on above: Performed By: #### L IPID, CMP, T4, TSH, FT3 #### [facility] [address] [place] [address] Dr. Mendel Herron IG % 0.4 % Normal 0.0-0.5 [facility] Comment on above: Performed By: #### L IPID, CMP, T4, TSH, FT3 #### [facility] [address] [place] [address] Dr. Mendel Herron LYMPH # 2.5 103/ul Normal 1.2-3.8 [facility] Comment on above: Performed By: #### L IPID, CMP, T4, TSH, FT3 #### [facility] [address] [place] [address] Dr. Mendel Herron Lymphocytes/100 WBC (Bld) 21.2 % Normal 20.5-60.0 [facility] Comment on above: Performed By: #### L IPID, CMP, T4, TSH, FT3 #### [facility] [address] [place] [address] Dr. Mendel Herron MANUAL DIFF REQ NO Normal [facility] Comment on above: Performed By: #### L IPID, CMP, T4, TSH, FT3 #### [facility] [address] [place] [address] Dr. Mendel Herron MCH (RBC) [Entitic mass] 31.7 pg Normal 26.7-34.0 [facility] Comment on above: Performed By: #### L IPID, CMP, T4, TSH, FT3 #### [facility] [address] [place] [address] Dr. Mendel Herron MCHC (RBC) [Mass/Vol] 36.1 g/dL Critically high 29.9-35.2 [facility] Comment on above: Performed By: #### L IPID, CMP, T4, TSH, FT3 #### [facility] [address] [place] [address] Dr. Mendel Herron MCV (RBC) [Entitic vol] 87.9 fL Normal 81.0-99.0 [facility] Comment on above: Performed By: #### L IPID, CMP, T4, TSH, FT3 #### [facility] [address] [place] [address] Dr. Mendel Herron MONO # 0.7 103/ul Normal 0.3-0.8 [facility] Comment on above: Performed By: #### L IPID, CMP, T4, TSH, FT3 #### [facility] [address] [place] [address] Dr. Mendel Herron Monocytes/100 WBC (Bld) 6.3 % Normal 1.7-12.0 [facility] Comment on above: Performed By: #### L IPID, CMP, T4, TSH, FT3 #### [facility] [address] [place] [address] Dr. Mendel Herron NEUT # 8.4 103/ul Critically high 1.4-6.5 [facility] Comment on above: Performed By: #### L IPID, CMP, T4, TSH, FT3 #### [facility] [address] [place] [address] Dr. Mendel Herron Neutrophils/100 WBC (Bld) 71.5 % Normal 43.0-75.0 [facility] Comment on above: Performed By: #### L IPID, CMP, T4, TSH, FT3 #### [facility] [address] [place] [address] Dr. Mendel Herron Platelet mean volume (Bld) [Entitic vol] 9.8 fL Normal 9.5-13.5 [facility] Comment on above: Performed By: #### L IPID, CMP, T4, TSH, FT3 #### [facility] [address] [place] [address] Dr. Mendel Herron PLT 374 103/ul Normal 150-450 [facility] Comment on above: Performed By: #### L IPID, CMP, T4, TSH, FT3 #### [facility] [address] [address] [address] Mendel Herron RBC 4.86 106/ul Normal 4.20-5.40 [facility] Comment on above: Performed By: #### L IPID, CMP, T4, TSH, FT3 #### [facility] [address] [address] [address] Mendel Herron WBC 11.7 103/ul Critically high 4.0-11.0 [facility] Comment on above: Performed By: #### L IPID, CMP, T4, TSH, FT3 #### [facility] [address] [address] [address] HEAD WO CONon [...] HELLEN VELAZQUEZ Date: 2022-08-09 15:23 Normal [facility] SARS-CoV-2 (COVID-19) RNA DEIRDRE+probe Ql (Unsp spec) Not detected Normal NOT DETECTED [facility] Comment on above: Result Comment: When diagnostic [...] for this test is supported by the [employer] Analyst of Health and Human Service's declaration that [...] L IPID, CMP, T4, TSH, FT3 #### [facility] [address] [place] [address] Dr. Mendel Herron ER URINE PROFILEon 3 Bilirubin Ql (U) Negative Normal NEGATIVE [facility] Comment on above: Performed By: #### L IPID, CMP, T4, TSH, FT3 #### [facility] [address] [place] [address] Dr. Mendel Herron Clarity (U) CLEAR Normal CLEAR [facility] Comment on above: Performed By: #### L IPID, CMP, T4, TSH, FT3 #### [facility] [address] [place] [address] Dr. Mendel Herron Color (U) LT. YELLOW Normal YELLOW [facility] Comment on above: Performed By: #### L IPID, CMP, T4, TSH, FT3 #### [facility] [address] [place] [address] Dr. Mendel Herron ERUAHD A micrscopic examination will be performed if indicated. Normal [facility] Comment on above: Performed By: #### L IPID, CMP, T4, TSH, FT3 #### [facility] [address] [place] [address] Dr. Mendel Herron Glucose Ql (U) Negative Normal NEGATIVE [facility] Comment on above: Performed By: #### L IPID, CMP, T4, TSH, FT3 #### [facility] [address] [address] [address] Mendel Herron Hemoglobin Ql (U) TRACE-INTACT Abnormal NEGATIVE [facility] Comment on above: Performed By: #### L IPID, CMP, T4, TSH, FT3 #### [facility] [address] [place] [address] Dr. Mendel Herron Ketones Ql (U) Negative Normal NEGATIVE [facility] Comment on above: Performed By: #### L IPID, CMP, T4, TSH, FT3 #### [facility] [address] [place] [address] Dr. Mendel Herron LEUKOCYTES Negative Normal NEGATIVE [facility] Comment on above: Performed By: #### L IPID, CMP, T4, TSH, FT3 #### [facility] [address] [place] [address] Dr. Mendel Herron Nitrite Ql (U) Negative Normal NEGATIVE [facility] Comment on above: Performed By: #### L IPID, CMP, T4, TSH, FT3 #### [facility] [address] [place] [address] Dr. Mendel Herron pH (U) 5.0 [pH] Normal 5-9 [facility] Comment on above: Performed By: #### L IPID, CMP, T4, TSH, FT3 #### [facility] [address] [place] [address] Dr. Mendel Herron SPEC GRAVITY 1.015 Normal 1.005-<=1.025 [facility] Comment on above: Performed By: #### L IPID, CMP, T4, TSH, FT3 #### [facility] [address] [address] [address] Mendel Herron UA PROTEIN Negative Normal NEGATIVE/ TRACE [facility] Comment on above: Performed By: #### L IPID, CMP, T4, TSH, FT3 #### [facility] [address] [place] [address] Dr. Mendel Herron UR MICRO IND INDICATED Normal [facility] Comment on above: Performed By: #### L IPID, CMP, T4, TSH, FT3 #### [facility] [address] [address] [address] Mendel Herron Urobilinogen Qn (U) 0.2 {James'U}/dL Normal 0.2 - 1. 0 [facility] Comment on above: Performed By: #### L IPID, CMP, T4, TSH, FT3 #### [facility] [address] [address] [address] Mendel Herron LIPASEon 08-09-2022 Lipase [Catalytic activity/Vol] 114.0 U/L Normal 73.0-393.0 [facility] Comment on above: Performed By: #### L IPA, BMP, CMADM #### [facility] [address] [address] [address] Mendel Herron PROF CHEM 8 (BAS METB)on Anion gap [Moles/Vol] 18.9 mmol/L Normal [facility] Comment on above: Performed By: #### L IPA, BMP, CMADM #### [facility] [address] [address] [address] Mendel Herron Calcium [Mass/Vol] 9.4 mg/dL Normal 8.5-10.1 [facility] Comment on above: Performed By: #### L IPA, BMP, CMADM #### [facility] [address] [place] [address] Dr. Mendel Herron Chloride [Moles/Vol] 97 mmol/L Critically low 98-107 [facility] Comment on above: Performed By: #### L IPA, BMP, CMADM #### [facility] [address] [place] [address] Dr. Mendel Herron CO2 [Moles/Vol] 26.0 mmol/L Normal 21.0-32.0 [facility] Comment on above: Performed By: #### L IPA, BMP, CMADM #### [facility] [address] [place] [address] Dr. Mendel Herron Creatinine [Mass/Vol] 0.85 mg/dL Normal 0.55-1.02 [facility] Comment on above: Performed By: #### L IPA, BMP, CMADM #### [facility] [address] [address] [address] Mendel Herron EGFR-AF GUATEMALAN >60 Normal >=60 [facility] Comment on above: Performed By: #### L IPA, BMP, CMADM #### [facility] [address] [address] [address] Mendel Herron EGFR-NON AF GUATEMALAN >60 Normal >=60 [facility] Comment on above: Performed By: #### L IPA, BMP, CMADM #### [facility] [address] [address] [address] Mendel Herron Glucose [Mass/Vol] 120 mg/dL Critically high 74-106 [facility] Comment on above: Performed By: #### L IPA, BMP, CMADM #### [facility] [address] [address] [address] Mendel Herron Potassium [Moles/Vol] 3.9 mmol/L Normal 3.5-5.1 [facility] Comment on above: Performed By: #### L IPA, BMP, CMADM #### [facility] [address] [address] [address] Mendel Herron Sodium [Moles/Vol] 138 mmol/L Normal 136-145 [facility] Comment on above: Performed By: #### L IPA, BMP, CMADM #### [facility] [address] [address] [address] Mendel Herron Urea nitrogen [Mass/Vol] 17.0 mg/dL Normal 7.0-18.0 [facility] Comment on above: Performed By: #### L IPA, BMP, CMADM #### [facility] [address] [address] [address] Mendel Herron Urea nitrogen/Creatinine [Mass ratio] 20.0 mg/mg Normal [facility] Comment on above: Performed By: #### L IPA, BMP, CMADM #### [facility] [address] [address] [address] Mendel Herron TROPONIN, HIGH SENSITIVITYon 08-09-2022 HSTROP 32.5 pg/mL Normal 4.0-51.3 [facility] Comment on above: Result Comment: CUT- OFF POINTS HAVE BEEN ESTABLISHED BASED ON THE FOURTH UNIVERSAL DEFINITIONS OF MYOCARDIAL INFARCTION. THE UPPER REFERENCE LIMIT (URL) OF TROPONIN, DEFINED THE 99TH PERCENTILE OF cTnI DISTRIBUTION IN A REFERENCE POPULATION, HAS BEEN CONFIRMED THE DECISION THRESHOLD FOR MO DIAGNOSIS. Performed By: #### L IPID, CMP, T4, TSH, FT3 #### [facility] [address] [address] [address] Mendel Herron URINE MICROSCOPIC ONLYon BACTERIA NONE SEEN Normal NONE SEEN [facility] Comment on above: Performed By: #### L IPID, CMP, T4, TSH, FT3 #### [facility] [address] [address] [address] Mendel Herron Bacteria identified Cx Nom (U) NOT INDICATED Normal [facility] Comment on above: Performed By: #### L IPID, CMP, T4, TSH, FT3 #### [facility] [address] [place] [address] Dr. Mendel Herron CAST NONE SEEN Normal NONE SEEN [facility] Comment on above: Performed By: #### L IPID, CMP, T4, TSH, FT3 #### [facility] [address] [address] [address] Mendel Herron Crystals LM Nom (Urine sed) NONE SEEN Normal NONE SEEN [facility] Comment on above: Performed By: #### L IPID, CMP, T4, TSH, FT3 #### [facility] [address] [address] [address] Mendel Herron Epithelial cells LM Ql (Urine sed) NONE SEEN Normal NONE SEEN /RARE [facility] Comment on above: Performed By: #### L IPID, CMP, T4, TSH, FT3 #### [facility] [address] [address] [address] Mendel Herron MUCOUS NONE SEEN Normal NONE SEEN [facility] Comment on above: Performed By: #### L IPID, CMP, T4, TSH, FT3 #### [facility] [address] [address] [address] Mendel Herron RBC 0-2 Normal 0-2 [facility] Comment on above: Performed By: #### L IPID, CMP, T4, TSH, FT3 #### [facility] [address] [address] [address] Mendel Herron WBC NONE SEEN Normal NONE SEEN [facility] Comment on above: Performed By: #### L IPID, CMP, T4, TSH, FT3 #### [facility] [address] [address] [address] Mendel Herron XR CHEST 1 Von [...] MARY DIETZ Date: 2022-08-09 15:18 Normal [facility] H PYLORI ANTIBODY IGGon 07-20 H. PYLORI IGG ABS 0.11 Index Value Normal 0.00-0.79 [facility] Comment on above: Result Comment: Nega tive <0.80 Equivocal 0.80 - 0.89 Positive >0.89 Performed By: #### L IPID, CMP, T4, TSH, FT3 #### [facility] [address] [address] [address] Mendel Herron AMYLASEon 08-06-2022 Amylase [Catalytic activity/Vol] 57 U/L Normal 25-115 [facility] Comment on above: Performed By: #### L IPID, CMP, T4, TSH, FT3 #### [facility] [address] [address] [address] Mendel Herron CBC AUTO DIFFon 08-06-2022 BASO # 0.1 103/ul Normal 0.0-0.1 [facility] Comment on above: Performed By: #### L IPID, CMP, T4, TSH, FT3 #### [facility] [address] [address] [address] Mendel Herron Basophils/100 WBC (Bld) 0.7 % Normal 0.2-2.0 [facility] Comment on above: Performed By: #### L IPID, CMP, T4, TSH, FT3 #### [facility] [address] [place] [address] Dr. Mendel Herron EO # 0.1 103/ul Normal 0.0-0.7 [facility] Comment on above: Performed By: #### L IPID, CMP, T4, TSH, FT3 #### [facility] [address] [place] [address] Dr. Mendel Herron Eosinophils/100 WBC (Bld) 0.5 % Critically low 0.9-7.0 [facility] Comment on above: Performed By: #### L IPID, CMP, T4, TSH, FT3 #### [facility] [address] [place] [address] Dr. Mendel Herron Erythrocyte distribution width (RBC) [Ratio] 13.7 % Normal 11.0-15.0 [facility] Comment on above: Performed By: #### L IPID, CMP, T4, TSH, FT3 #### [facility] [address] [place] [address] Dr. Mendel Herron Hematocrit (Bld) [Volume fraction] 46.2 % Normal 36.0-48.0 [facility] Comment on above: Performed By: #### L IPID, CMP, T4, TSH, FT3 #### [facility] [address] [place] [address] Dr. Mendel Herron Hemoglobin (Bld) [Mass/Vol] 15.1 g/dL Normal 12.0-16.0 [facility] Comment on above: Performed By: #### L IPID, CMP, T4, TSH, FT3 #### [facility] [address] [place] [address] Dr. Mendel Herron IG # 0.06 10e3/ul Critically high 0.00-0.03 [facility] Comment on above: Performed By: #### L IPID, CMP, T4, TSH, FT3 #### [facility] [address] [place] [address] Dr. Mendel Herron IG % 0.6 % Critically high 0.0-0.5 [facility] Comment on above: Performed By: #### L IPID, CMP, T4, TSH, FT3 #### [facility] [address] [place] [address] Dr. Mendel Herron LYMPH # 2.5 103/ul Normal 1.2-3.8 [facility] Comment on above: Performed By: #### L IPID, CMP, T4, TSH, FT3 #### [facility] [address] [place] [address] Dr. Mendel Herron Lymphocytes/100 WBC (Bld) 23.4 % Normal 20.5-60.0 [facility] Comment on above: Performed By: #### L IPID, CMP, T4, TSH, FT3 #### [facility] [address] [place] [address] Dr. Mendel Herron MANUAL DIFF REQ NO Normal [facility] Comment on above: Performed By: #### L IPID, CMP, T4, TSH, FT3 #### [facility] [address] [place] [address] Dr. Mendel Herron MCH (RBC) [Entitic mass] 31.4 pg Normal 26.7-34.0 [facility] Comment on above: Performed By: #### L IPID, CMP, T4, TSH, FT3 #### [facility] [address] [place] [address] Dr. Mendel Herron MCHC (RBC) [Mass/Vol] 32.7 g/dL Normal 29.9-35.2 [facility] Comment on above: Performed By: #### L IPID, CMP, T4, TSH, FT3 #### [facility] [address] [place] [address] Dr. Mendel Herron MCV (RBC) [Entitic vol] 96.0 fL Normal 81.0-99.0 [facility] Comment on above: Performed By: #### L IPID, CMP, T4, TSH, FT3 #### [facility] [address] [place] [address] Dr. Mendel Herron MONO # 0.6 103/ul Normal 0.3-0.8 [facility] Comment on above: Performed By: #### L IPID, CMP, T4, TSH, FT3 #### [facility] [address] [address] [address] Mendel Herron Monocytes/100 WBC (Bld) 6.0 % Normal 1.7-12.0 [facility] Comment on above: Performed By: #### L IPID, CMP, T4, TSH, FT3 #### [facility] [address] [address] [address] Mendel Herron NEUT # 7.4 103/ul Critically high 1.4-6.5 [facility] Comment on above: Performed By: #### L IPID, CMP, T4, TSH, FT3 #### [facility] [address] [place] [address] Dr. Mendel Herron Neutrophils/100 WBC (Bld) 68.8 % Normal 43.0-75.0 [facility] Comment on above: Performed By: #### L IPID, CMP, T4, TSH, FT3 #### [facility] [address] [place] [address] Dr. Mendel Herron Platelet mean volume (Bld) [Entitic vol] 9.7 fL Normal 9.5-13.5 [facility] Comment on above: Performed By: #### L IPID, CMP, T4, TSH, FT3 #### [facility] [address] [place] [address] Dr. Mendel Herron PLT 331 103/ul Normal 150-450 [facility] Comment on above: Performed By: #### L IPID, CMP, T4, TSH, FT3 #### [facility] [address] [address] [address] Mendel Herron RBC 4.81 106/ul Normal 4.20-5.40 [facility] Comment on above: Performed By: #### L IPID, CMP, T4, TSH, FT3 #### [facility] [address] [address] [address] Mendel Herron WBC 10.7 103/ul Normal 4.0-11.0 [facility] Comment on above: Performed By: #### L IPID, CMP, T4, TSH, FT3 #### [facility] [address] [address] [address] HEAD WO CONon [...] by: JEAN LOPES Date: 2022-08-06 08:39 Normal [facility] LIPASEon 08-06-2022 Lipase [Catalytic activity/Vol] 125.0 U/L Normal 73.0-393.0 [facility] Comment on above: Performed By: #### L IPID, CMP, T4, TSH, FT3 #### [facility] [address] [address] [address] Mendel Herron PROF 14(COMP METB)on 023 Albumin [Mass/Vol] 3.7 g/dL Normal 3.4-5.0 [facility] Comment on above: Performed By: #### L IPID, CMP, T4, TSH, FT3 #### [facility] [address] [address] [address] Mendel Herron Albumin/Globulin [Mass ratio] 0.9 {ratio} Normal [facility] Comment on above: Performed By: #### L IPID, CMP, T4, TSH, FT3 #### [facility] [address] [address] [address] Mendel Herron ALP [Catalytic activity/Vol] 110 U/L Normal 46-116 [facility] Comment on above: Performed By: #### L IPID, CMP, T4, TSH, FT3 #### [facility] [address] [place] [address] Dr. Mendel Herron ALT [Catalytic activity/Vol] 25 U/L Normal 14-59 [facility] Comment on above: Performed By: #### L IPID, CMP, T4, TSH, FT3 #### [facility] [address] [place] [address] Dr. Mendel Herron Anion gap [Moles/Vol] 14.0 mmol/L Normal [facility] Comment on above: Performed By: #### L IPID, CMP, T4, TSH, FT3 #### [facility] [address] [place] [address] Dr. Mendel Herron AST [Catalytic activity/Vol] 16 U/L Normal 15-37 [facility] Comment on above: Performed By: #### L IPID, CMP, T4, TSH, FT3 #### [facility] [address] [place] [address] Dr. Mendel Herron Bilirubin [Mass/Vol] 0.6 mg/dL Normal 0.2-1.0 [facility] Comment on above: Performed By: #### L IPID, CMP, T4, TSH, FT3 #### [facility] [address] [place] [address] Dr. Mendel Herron Calcium [Mass/Vol] 9.3 mg/dL Normal 8.5-10.1 [facility] Comment on above: Performed By: #### L IPID, CMP, T4, TSH, FT3 #### [facility] [address] [place] [address] Dr. Mendel Herron Chloride [Moles/Vol] 103 mmol/L Normal 98-107 [facility] Comment on above: Performed By: #### L IPID, CMP, T4, TSH, FT3 #### [facility] [address] [place] [address] Dr. Mendel Herron CO2 [Moles/Vol] 27.3 mmol/L Normal 21.0-32.0 [facility] Comment on above: Performed By: #### L IPID, CMP, T4, TSH, FT3 #### [facility] [address] [place] [address] Dr. Mendel Herron Creatinine [Mass/Vol] 0.71 mg/dL Normal 0.55-1.02 [facility] Comment on above: Performed By: #### L IPID, CMP, T4, TSH, FT3 #### [facility] [address] [place] [address] Dr. Mendel Herron EGFR-AF GUATEMALAN >60 Normal >=60 [facility] Comment on above: Performed By: #### L IPID, CMP, T4, TSH, FT3 #### [facility] [address] [place] [address] Dr. Mendel Herron EGFR-NON AF GUATEMALAN >60 Normal >=60 [facility] Comment on above: Performed By: #### L IPID, CMP, T4, TSH, FT3 #### [facility] [address] [place] [address] Dr. Mendel Herron Globulin (S) [Mass/Vol] 4.3 g/dL Normal [facility] Comment on above: Performed By: #### L IPID, CMP, T4, TSH, FT3 #### [facility] [address] [place] [address] Dr. Mendel Herron Glucose [Mass/Vol] 102 mg/dL Normal 74-106 [facility] Comment on above: Performed By: #### L IPID, CMP, T4, TSH, FT3 #### [facility] [address] [place] [address] Dr. Mendel Herron Potassium [Moles/Vol] 4.3 mmol/L Normal 3.5-5.1 [facility] Comment on above: Performed By: #### L IPID, CMP, T4, TSH, FT3 #### [facility] [address] [place] [address] Dr. Mendel Herron Protein [Mass/Vol] 8.0 g/dL Normal 6.4-8.2 [facility] Comment on above: Performed By: #### L IPID, CMP, T4, TSH, FT3 #### [facility] [address] [address] [address] Mendel Herron Sodium [Moles/Vol] 140 mmol/L Normal 136-145 [facility] Comment on above: Performed By: #### L IPID, CMP, T4, TSH, FT3 #### [facility] [address] [place] [address] Dr. Mendel Herron Urea nitrogen [Mass/Vol] 19.0 mg/dL Critically high 7.0-18.0 [facility] Comment on above: Performed By: #### L IPID, CMP, T4, TSH, FT3 #### [facility] [address] [address] [address] Mendel Herron Urea nitrogen/Creatinine [Mass ratio] 26.8 mg/mg Normal [facility] Comment on above: Performed By: #### L IPID, CMP, T4, TSH, FT3 #### [facility] [address] [place] [address] Dr. Mendel Herron Covid-19 PCR ([facility])on 06-19 SARS-CoV-2 (COVID-19) RNA DEIRDRE+probe Ql (Unsp spec) Not detected Normal NOT DETECTED [facility] Comment on above: Result Comment: This test is not yet approved or cleared by the [place] FDA. When there are no FDA-approved or cleared tests available, and other criteria are met, FDA can make tests available under an emergency access mechanism called an Emergency Use Authorization (EUA). The EUA for this test is supported by the [place] of Health and Human Service's (HHS's) declaration [...] SARS-CoV-2. Performed By: #### C VDTBH #### [facility] [address] [place] [address] Dr. Mendel Herron INFLUENZA A AND B AGon 07-16 [facility] SEE BELOW Normal [facility] Comment on above: Result Comment: Nega tive for Flu A protein angiten. Infection due to Flu A cannot be ruled out. Flu A angiten in the sample may be below the detection limit of the test. Performed By: #### L IPID, CMP, T4, TSH, FT3 #### [facility] [address] [place] [address] Dr. Mendel Herron INFLUBNEG SEE BELOW Normal [facility] Comment on above: Result Comment: Nega tive for Flu B protein antigen. Infection due to Flu B cannot be ruled out. Flu B antigen in the sample may be below the detection limit of the test. Performed By: #### L IPID, CMP, T4, TSH, FT3 #### [facility] [address] [place] [address] Dr. Mendel Herron INFLUENZA A AG Negative Normal NEGATIVE SEE COMMENT [facility] Comment on above: Performed By: #### L IPID, CMP, T4, TSH, FT3 #### [facility] [address] [place] [address] Dr. Mendel Herron INFLUENZA B AG Negative Normal NEGATIVE SEE COMMENT [facility] Comment on above: Performed By: #### L IPID, CMP, T4, TSH, FT3 #### [facility] [address] [place] [address] Dr. Mendel Herrno [facility] SARS-CoV-2 (COVID-19) RNA DEIRDRE+probe Ql (Unsp spec) Not detected Normal NOT DETECTED [facility] Comment on above: Result Comment: This test is not yet approved or cleared by the [place] FDA. When there are no FDA-approved or cleared tests available, and other criteria are met, FDA can make tests available under an emergency access mechanism called an Emergency Use Authorization (EUA). The EUA for this test is supported by the [employer] of Health and Human Service's (HHS's) declaration [...] L IPID, CMP, T4, TSH, FT3 #### [facility] [address] [place] [address] Dr. Mendel Herron INFLUENZA A AND B [facility] 05-11 [facility] SEE BELOW Normal [facility] Comment on above: Result Comment: Nega tive for Flu A protein angiten. Infection due to Flu A cannot be ruled out. Flu A angiten in the sample may be below the detection limit of the test. Performed By: #### L IPID, CMP, T4, TSH, FT3 #### [facility] [address] [place] [address] [facility] SEE BELOW Normal [facility] Comment on above: Result Comment: Nega tive for Flu B protein antigen. Infection due to Flu B cannot be ruled out. Flu B antigen in the sample may be below the detection limit of the test. Performed By: #### L IPID, CMP, T4, TSH, FT3 #### [facility] [address] [place] [address] Dr. Mendel Herron INFLUENZA A AG Negative Normal NEGATIVE SEE COMMENT [facility] Comment on above: Performed By: #### L IPID, CMP, T4, TSH, FT3 #### [facility] [address] [place] [address] Dr. Mendel Herron INFLUENZA B AG Negative Normal NEGATIVE SEE COMMENT [facility] Comment on above: Performed By: #### L IPID, CMP, T4, TSH, FT3 #### [facility] [address] [place] [address] Dr. Mendel Herron INTERNAL CONTROLS Within Normal Limits Normal Wi thin Normal Limits [facility] Comment on above: Performed By: #### L IPID, CMP, T4, TSH, FT3 #### [facility] [address] [place], [place] [address] Dr. Mendel Herron Comprehensive Metabolic Empo n 12-23-2021 Albumin [Mass/Vol] 3.7 g/dL Normal 3.2-5.5 [facility] Comment on above: Performed By: #### E BS CMP, EBS LIPID #### [facility] [address] Albumin/Globulin [Mass ratio] 1.0 {ratio} Normal [facility] Comment on above: Performed By: #### E BS CMP, EBS LIPID #### [facility] [address] [place] [address] [place] ALP [Catalytic activity/Vol] 159 U/L High 32-92 [facility] Comment on above: Performed By: #### E BS CMP, EBS LIPID #### [facility] [address] [id number] [place] ALT [Catalytic activity/Vol] 28 U/L Normal 10-60 [facility] Comment on above: Performed By: #### E BS CMP, EBS LIPID #### [facility] [address] [id number] [place] AST [Catalytic activity/Vol] 27 U/L Normal 10-42 [facility] Comment on above: Performed By: #### E BS CMP, EBS LIPID #### [facility] [address] [id number] [place] Bilirubin [Mass/Vol] 1.2 mg/dL Normal 0.3-1.2 [facility] Comment on above: Performed By: #### E BS CMP, EBS LIPID #### [facility] [address] [id number] [place] Calcium [Mass/Vol] 9.2 mg/dL Normal 8.2-10.2 [facility] Comment on above: Performed By: #### E BS CMP, EBS LIPID #### [facility] [address] [id number] [place] Chloride [Moles/Vol] 100 mmol/L Normal 95-114 [facility] Comment on above: Performed By: #### E BS CMP, EBS LIPID #### [facility] [address] [place] [address] CO2 [Moles/Vol] 20.6 mmol/L Low 22.0-30.0 [facility] Comment on above: Performed By: #### E BS CMP, EBS LIPID #### [facility] [address] [place] [address] Creatinine [Mass/Vol] 0.57 mg/dL Normal 0.44-1.03 [facility] Comment on above: Performed By: #### E BS CMP, EBS LIPID #### [address] Estimated GFR ( Ni > 60 Normal [facility] Comment on above: Result Comment: GFR estimated reference range: According to KDOQI guidelines, <60 ml/min/1.73m2 is sufficient to diagnose a patient with chronic kidney disease. Performed By: #### E BS CMP, EBS LIPID #### [facility] [address] [place] [address] Estimated GFR (Non- Am > 60 [facility] Comment on above: Performed By: #### E BS CMP, EBS LIPID #### [facility] [address] [place] [address] Globulin (S) [Mass/Vol] 3.7 g/dL Normal [facility] Comment on above: Performed By: #### E BS CMP, EBS LIPID #### [facility] [address] [place] [address] [place] Glucose [Mass/Vol] 100 mg/dL Normal 70-100 [facility] Comment on above: Performed By: #### E BS CMP, EBS LIPID #### [facility] [address] [place] [address] Potassium [Moles/Vol] 3.9 mmol/L Normal 3.5-5.1 [facility] Comment on above: Performed By: #### E BS CMP, EBS LIPID #### [facility] [address] Protein [Mass/Vol] 7.4 g/dL Normal 6.1-7.9 [facility] Comment on above: Performed By: #### E BS CMP, EBS LIPID #### [facility] [address] Sodium [Moles/Vol] 135 mmol/L Low 136-146 [facility] Comment on above: Performed By: #### E BS CMP, EBS LIPID #### [facility] [address] Urea nitrogen [Mass/Vol] 12 mg/dL Normal 9-23 [facility] Comment on above: Performed By: #### E BS CMP, EBS LIPID #### [address] Lipid Profileon 12-23-2021 Cholesterol [Mass/Vol] 213 mg/dL High 140-200 [facility] Comment on above: Result Comment: Chol less than 200 mg/dl low risk Chol 201-239 mg/dl borderline risk Chol 240 mg/dl and greater high risk Performed By: #### E BS CMP, EBS LIPID #### [facility] [address] [place] [address] Cholesterol in HDL [Mass/Vol] 36 mg/dL Normal 35-85 [facility] Comment on above: Result Comment: HDL CHOL ATP-III CLASSIFICATION Cardiovascular Risk HDL > or equal to 60 mg/dL LOW HDL < 40 mg/dL HIGH Performed By: #### E BS CMP, EBS LIPID #### [facility] [address] [place] [address] Cholesterol.total/Ch olesterol in HDL [Mass ratio] 5.9 {ratio} Normal <5.0 [facility] Comment on above: Result Comment: PERF ORMED BY: [place] [address] PATHOLOGIST CENTER ADMINISTRATOR MARIBEL AGUILLON M.D. Performed By: #### E BS CMP, EBS LIPID #### [facility] [address] [place] [address] LDL Cholesterol,Calculat ed 151 mg/dL High 0-100 [facility] Comment on above: Result Comment: LDL ATP III CLASSIFICATION LDL less than 100 mg/dL Optimal LDL 100-129 mg/dL Near or above optimal LDL 130-159 mg/dL Borderline high LDL 160-189 mg/dL High LDL greater than 189 mg/dL Very high Performed By: #### E BS CMP, EBS LIPID #### [facility] [address] [id number] [facility] Triglyceride w/Reflex 129 mg/dL Normal 35-149 [facility] Comment on above: Result Comment: TRIG ATP III CLASSIFICATION TRIG less than 150 mg/dL Normal TRIG 150-199 mg/dL Borderline high TRIG 200-500 mg/dL High TRIG greater than 500 mg/dL Very high Standard traceable to the Center for Disease Conrtrol and Prevention (CDC) test method. Performed By: #### E BS CMP, EBS LIPID #### [facility] [address] [id number] [facility] VLDL CHOLESTEROL 25 mg/dL Normal [facility] Comment on above: Performed By: #### E BS CMP, EBS LIPID #### [facility] [address] [id number] [place] Covid-19 PCR (CVDTB)on 11-16 SARS-CoV-2 (COVID-19) RNA DEIRDRE+probe Ql (Unsp spec) Detected Critically abnormal NOT DETECTED [facility] Comment on above: Result Comment: This test is not yet approved or cleared by the [place] FDA. When there are no FDA-approved or cleared tests available, and other criteria are met, FDA can make tests available under an emergency access mechanism called an Emergency Use Authorization (EUA). The EUA for this test is supported by the [place] of Health and Human Service's declaration that [...] used). Performed By: #### C VDTBH #### [facility] [address] [address] [address] Mendel Herron INFLUENZA A [facility] B [facility] 12-[facility] Normal [facility] Comment on above: Result Comment: Nega tive for Flu A protein angiten. Infection due to Flu A cannot be ruled out. Flu A angiten in the sample may be below the detection limit of the test. Performed By: #### L IPID, CMP, T4, TSH, FT3 #### [facility] [address] [address] [address] Mendel Herron INFLUBNEG SEE BELOW Normal [facility] Comment on above: Result Comment: Nega tive for Flu B protein antigen. Infection due to Flu B cannot be ruled out. Flu B antigen in the sample may be below the detection limit of the test. Performed By: #### L IPID, CMP, T4, TSH, FT3 #### [facility] [address] [address] [address] Mendel Herron INFLUENZA A AG Negative Normal NEGATIVE SEE COMMENT [facility] Comment on above: Performed By: #### L IPID, CMP, T4, TSH, FT3 #### [facility] [address] [address] [address] Mendel Herron INFLUENZA B AG Negative Normal NEGATIVE SEE COMMENT [facility] Comment on above: Performed By: #### L IPID, CMP, T4, TSH, FT3 #### [facility] [id number] Mendel Herron INTERNAL CONTROLS Within Normal Limits Normal Wi thin Normal Limits [facility] Comment on above: Performed By: #### L IPID, CMP, T4, TSH, FT3 #### [facility] [id number] Mendel Herron Cardiovascular Lab Reporton 08-18-2021 Cardiovascular Lab Report [facility] Patient Name: Antonio [facility] S MR #: [id number] Department of Physician: Curtis Martinez MD Medicine Service Date: 08/18/2021 Division of Birthdate: 1970 Cardiology Room #: Adult Cardiovascular Services [address] [address] Cardiovascular Laboratory Report ATRIAL FLUTTER ABLATION AND [...] ab (more content not included)... Normal [facility] BILL Antinuclear Antibodieson 04-23-2021 Antinuclear Abs, IFA Negative Normal . [facility] Comment on above: Result Comment: Nega tive <1:80 Borderline 1:80 Positive >1:80 ICAP nomenclature: AC-0 For more information about Hep-2 cell patterns use ANApatterns.org, the official website for the International Consensus on Antinuclear Antibody (BILL) Patterns (ICAP). Performed at: [facility] [place] [id number] Sign Writer Letterer Or Painter: Ger Yen PhD, Phone: [phone] PERFORMED BY: [place] [address] PATHOLOGIST CENTER ADMINISTRATOR MARIBEL AGUILLON M.D. Performed By: #### E SR, CRP, CBC, CREAT #### [address] #### BILL #### [facility] , C-Reactive Proteinon 021 C-Reactive Protein 0.7 mg/dL Normal 0.0-1.0 [facility] Comment on above: Result Comment: PERF ORMED BY: [place] [address] PATHOLOGIST CENTER ADMINISTRATOR MARIBEL AGUILLON M.D. Performed By: #### E SR, CRP, CBC, CREAT #### [address] #### BILL #### [facility] , Complement C3on 04-23-2021 Complement C3 170 mg/dL High 82-167 [facility] Comment on above: Result Comment: Perf ormed at: - [facility] [id number] Sign Writer Letterer Or Painter: Ger Yen PhD, Phone: [phone] Performed By: #### A DDONUAPLUS #### [place] [address] [place] #### CH50, C3, C4 #### [facility] , Complement C4on 04-23-2021 Complement C4 14 mg/dL Normal 12-38 [facility] Comment on above: Performed By: #### A DDONUAPLUS #### [place] [address] [place] #### CH50, C3, C4 #### [facility] , Complement Total (CH50)on Complement Total (CH50) >60 Normal >41 [facility] Comment on above: Result Comment: [...] out of range values. Performed at: - [facility] [id number] Sign Writer Letterer Or Painter: Ger Yen PhD, Phone: [phone] PERFORMED BY: [place] [address] PATHOLOGIST CENTER ADMINISTRATOR MARIBEL AGUILLON M.D. Performed By: #### E BS CMP, EBS LIPID #### [address] Complete Blood Count Auto Di ffon 04-23-2021 Basophils (Bld) [#/Vol] 0.1 10*3/uL Normal 0.0-0.2 [facility] Comment on above: Performed By: #### E SR, CRP, CBC, CREAT #### [address] #### BILL #### [facility] , Basophils/100 WBC (Bld) 0.7 % Normal . [facility] Comment on above: Performed By: #### E SR, CRP, CBC, CREAT #### [place] [address] [place] #### BILL #### [facility] , Eosinophils (Bld) [#/Vol] 0.1 10*3/uL Normal 0.0-0.45 [facility] Comment on above: Performed By: #### E SR, CRP, CBC, CREAT #### [facility] [address] [place] [address] [place] #### BILL #### [facility] , Eosinophils/100 WBC (Bld) 0.5 % Normal . [facility] Comment on above: Performed By: #### E SR, CRP, CBC, CREAT #### [facility] [address] [place] [address] #### BILL #### [facility] , Erythrocyte distribution width (RBC) [Ratio] 18.0 % High 11.9-15.3 [facility] Comment on above: Performed By: #### E SR, CRP, CBC, CREAT #### [facility] [address] [place] [address] [place] #### BILL #### [facility] , Hematocrit (Bld) [Volume fraction] 31.6 % Low 34.0-46.4 [facility] Comment on above: Performed By: #### E SR, CRP, CBC, CREAT #### [address] #### BILL #### [facility] , Hemoglobin (Bld) [Mass/Vol] 9.8 g/dL Low 11.8-15.4 [facility] Comment on above: Performed By: #### E SR, CRP, CBC, CREAT #### [facility] [address] [place] [address] [place] #### BILL #### [facility] , Lymphocytes (Bld) [#/Vol] 1.7 10*3/uL Normal 1.00-4.8 [facility] Comment on above: Performed By: #### E SR, CRP, CBC, CREAT #### [facility] [address] [place] [address] [place] #### BILL #### [facility] , Lymphocytes/100 WBC (Bld) 15.0 % Normal . [facility] Comment on above: Performed By: #### E SR, CRP, CBC, CREAT #### [address] #### BILL #### [facility] , MCH (RBC) [Entitic mass] 24.8 pg Normal 24.7-34.3 [facility] Comment on above: Performed By: #### E SR, CRP, CBC, CREAT #### [place] [address] [place] #### BILL #### [facility] , MCV (RBC) [Entitic vol] 80.1 fL Normal 80-100 [facility] Comment on above: Performed By: #### E SR, CRP, CBC, CREAT #### [address] #### BILL #### [facility] , Mean Corpuscular HGB Conc 31.0 g/dL Low 32.0-35.0 [facility] Comment on above: Performed By: #### E SR, CRP, CBC, CREAT #### [address] #### BILL #### [facility] , Monocytes (Bld) [#/Vol] 0.5 10*3/uL Normal 0.0-0.8 [facility] Comment on above: Performed By: #### E SR, CRP, CBC, CREAT #### [address] #### BILL #### [facility] , Monocytes/100 WBC (Bld) 4.6 % Normal . [facility] Comment on above: Performed By: #### E SR, CRP, CBC, CREAT #### [address] #### BILL #### [facility] , Neutrophils (Bld) [#/Vol] 9.1 10*3/uL High 1.8-7.7 [facility] Comment on above: Performed By: #### E SR, CRP, CBC, CREAT #### [facility] [address] [place] [address] [place] #### BILL #### [facility] , Neutrophils/100 WBC (Bld) 79.2 % Normal . [facility] Comment on above: Performed By: #### E SR, CRP, CBC, CREAT #### [facility] [address] [place] [address] [place] #### BILL #### [facility] , Nucleated RBC/100 WBC (Bld) [Ratio] 0.1 % Normal 0-0.5 [facility] Comment on above: Performed By: #### E SR, CRP, CBC, CREAT #### [address] #### BILL #### [facility] , Platelet mean volume (Bld) [Entitic vol] 8.3 fL Normal 6.3-10.7 [facility] Comment on above: Performed By: #### E SR, CRP, CBC, CREAT #### [facility] [address] [place] [address] #### BILL #### [facility] , Platelets (Bld) [#/Vol] 336 10*3/uL Normal 150-450 [facility] Comment on above: Performed By: #### E SR, CRP, CBC, CREAT #### [address] #### BILL #### [facility] , RBC (Bld) [#/Vol] 3.94 10*6/uL Normal 3.60-5.00 [facility] Comment on above: Performed By: #### E SR, CRP, CBC, CREAT #### [place] [address] [place] #### BILL #### [facility] , WBC (Bld) [#/Vol] 11.5 10*3/uL High 4.5-11.0 [facility] Comment on above: Performed By: #### E SR, CRP, CBC, CREAT #### [facility] [address] [place] [address] [place] #### BILL #### [facility] , Creatinineon 04-23-2021 Creatinine [Mass/Vol] 0.75 mg/dL Normal 0.44-1.03 [facility] Comment on above: Performed By: #### E SR, CRP, CBC, CREAT #### [facility] [address] [place] [address] #### BILL #### [facility] , Estimated GFR ( Ni > 60 Normal [facility] Comment on above: Result Comment: GFR estimated reference range: According to KDOQI guidelines, <60 ml/min/1.73m2 is sufficient to diagnose a patient with chronic kidney disease. Performed By: #### E SR, CRP, CBC, CREAT #### [facility] [address] [place] [address] [place] #### BILL #### [facility] , Estimated GFR (Non- Am > 60 Normal [facility] Comment on above: Performed By: #### E SR, CRP, CBC, CREAT #### [facility] [address] [place] [address] #### BILL #### [facility] , Dipstick and Microscopicon 1 Appearance (U) Clear Normal Clear [facility] Comment on above: Order Comment: Name Collection Type:: Clean-Voided Midstream Performed By: #### A DDONUAPLUS #### [facility] [address] [place] [address] [place] #### CH50, C3, C4 #### [facility] , Bacteria,Urine None Seen Normal None Seen [facility] Comment on above: Order Comment: Name Collection Type:: Clean-Voided Midstream Performed By: #### A DDONUAPLUS #### [address] #### CH50, C3, C4 #### [facility] , Bilirubin,Urine Negative Normal Negative [facility] Comment on above: Order Comment: Name Collection Type:: Clean-Voided Midstream Performed By: #### A DDONUAPLUS #### [address] #### CH50, C3, C4 #### [facility] , Color (U) Yellow Normal Yellow [facility] Comment on above: Order Comment: Name Collection Type:: Clean-Voided Midstream Performed By: #### A DDONUAPLUS #### [address] #### CH50, C3, C4 #### [facility] , Glucose Ql (U) 100 mg/dL High Normal [facility] Comment on above: Order Comment: Name Collection Type:: Clean-Voided Midstream Performed By: #### A DDONUAPLUS #### [address] #### CH50, C3, C4 #### [facility] , Hyaline Casts,Urine 0-8 Normal 0-8 [facility] Comment on above: Order Comment: Name Collection Type:: Clean-Voided Midstream Result Comment: PERF ORMED BY: [place] [address] PATHOLOGIST CENTER ADMINISTRATOR MARIBEL AGUILLON M.D. Performed By: #### A DDONUAPLUS #### [address] #### CH50, C3, C4 #### [facility] , Ketones Ql (U) Negative Normal Negative [facility] Comment on above: Order Comment: Name Collection Type:: Clean-Voided Midstream Performed By: #### A DDONUAPLUS #### [address] #### CH50, C3, C4 #### [facility] , Leukocyte esterase Test strip Ql (U) Negative Normal Negative [facility] Comment on above: Order Comment: Name Collection Type:: Clean-Voided Midstream Performed By: #### A DDONUAPLUS #### [address] #### CH50, C3, C4 #### [facility] , Nitrite,Urine Negative Normal Negative [facility] Comment on above: Order Comment: Name Collection Type:: Clean-Voided Midstream Performed By: #### A DDONUAPLUS #### [address] #### CH50, C3, C4 #### [facility] , Occult Blood,Urine Negative Normal Negative [facility] Comment on above: Order Comment: Name Collection Type:: Clean-Voided Midstream Performed By: #### A DDONUAPLUS #### [address] #### CH50, C3, C4 #### [facility] , pH (U) 5.0 [pH] Normal 5.0-9.0 [facility] Comment on above: Order Comment: Name Collection Type:: Clean-Voided Midstream Performed By: #### A DDONUAPLUS #### [address] #### CH50, C3, C4 #### [facility] , Protein,Urine Negative Normal Negative [facility] Comment on above: Order Comment: Name Collection Type:: Clean-Voided Midstream Performed By: #### A DDONUAPLUS #### [address] #### CH50, C3, C4 #### [facility] , RBC,Urine None Seen Normal 0-4 [facility] Comment on above: Order Comment: Name Collection Type:: Clean-Voided Midstream Performed By: #### A DDONUAPLUS #### [address] #### CH50, C3, C4 #### [facility] , Specificy [place],Urine 1.009 Normal 1.001-1.030 [facility] Comment on above: Order Comment: Name Collection Type:: Clean-Voided Midstream Performed By: #### A DDONUAPLUS #### [address] #### CH50, C3, C4 #### [facility] , Squamous Epithelial Cell,Urine 0-1 Normal 0-2 [facility] Comment on above: Order Comment: Name Collection Type:: Clean-Voided Midstream Performed By: #### A DDONUAPLUS #### [address] #### CH50, C3, C4 #### [facility] , Urobilinogen,Urine Normal Normal Normal [facility] Comment on above: Order Comment: Name Collection Type:: Clean-Voided Midstream Performed By: #### A DDONUAPLUS #### [address] #### CH50, C3, C4 #### [facility] , WBC LM.HPF (Urine sed) [#/Area] 0 /[HPF] Normal 0-4 [facility] Comment on above: Order Comment: Name Collection Type:: Clean-Voided Midstream Performed By: #### A DDONUAPLUS #### [facility] [address] [place] [address] [place] #### CH50, C3, C4 #### [facility] , Erythrocyte Sedimentation Ra ryley 04-23-2021 ESR (Bld) [Velocity] 55 mm/h High 0-29 [facility] Comment on above: Result Comment: PERF ORMED BY: [facility] [address] [place] [address] PATHOLOGIST CENTER ADMINISTRATOR MARIBEL AGUILLON M.D. Performed By: #### E SR, CRP, CBC, CREAT #### [facility] [address] [place] [address] [place] #### BILL #### [facility] , BASIC METABOLIC PANELon 03-20 Calcium [Mass/Vol] 8.7 mg/dL Normal 8.6-10.3 [facility] Comment on above: Order Comment: No: D o not add to previous draw Performed By: #### 5 7307, 08463 #### [facility] [address] [place] [address], [facility] Chloride [Moles/Vol] 97 mmol/L Low 98-107 [facility] Comment on above: Order Comment: No: D o not add to previous draw Performed By: #### 5 7307, 60029 #### [facility] [address] [place] [address], [place] CO2 [Moles/Vol] 36 mmol/L High 21-31 [facility] Comment on above: Order Comment: No: D o not add to previous draw Performed By: #### 5 7307, 13786 #### [facility] [address] [place] [address], [facility] Creatinine [Mass/Vol] 0.74 mg/dL Normal 0.60-1.20 [facility] Comment on above: Order Comment: No: D o not add to previous draw Performed By: #### 5 7307, 07107 #### [facility] [address] [facility] [place] [place] [address], [facility] GFR/1.73 sq M.predicted among blacks MDRD (S/P/Bld) [Vol rate/Area] mL/min/{1.73_m2} Normal >60 [facility] Comment on above: Order Comment: No: D o not add to previous draw Performed By: #### 5 73, 70365 #### [facility] [address] [place] [address], [place] GFR/1.73 sq M.predicted among non-blacks MDRD (S/P/Bld) [Vol rate/Area] mL/min/{1.73_m2} Normal >60 [facility] Comment on above: Order Comment: No: D o not add to previous draw Performed By: #### 5 73, 30503 #### [facility] [address] [place] [address], [place] Glucose [Mass/Vol] 123 mg/dL High 70-100 The [facility] Comment on above: Order Comment: No: D o not add to previous draw Performed By: #### 5 73, 68727 #### [facility] [address] [place] [address], [place] Potassium [Moles/Vol] 4.3 mmol/L Normal 3.5-5.1 [facility] Comment on above: Order Comment: No: D o not add to previous draw Performed By: #### 5 7307, 10572 #### [facility] [address] [place] [address], [place] Sodium [Moles/Vol] 139 mmol/L Normal 136-145 The [facility] Comment on above: Order Comment: No: D o not add to previous draw Performed By: #### 5 7307, 00604 #### [facility] [address] [place] [address], [place] Urea nitrogen [Mass/Vol] 24 mg/dL Normal 7-25 [facility] Comment on above: Order Comment: No: D o not add to previous draw Performed By: #### 5 7307, 43986 #### [facility] [address] [place] [address], [place] CBC COMPLETE BLOOD COUNTon 0 04-11-2021 Erythrocyte distribution width (RBC) [Ratio] 16.8 % High 11.5-15.0 [facility] Comment on above: Order Comment: No: D o not add to previous draw Performed By: #### 5 7306, 88340 #### [facility] [address] [place] [address], [facility] Hematocrit (Bld) [Volume fraction] 29.7 % Low 36.0-45.0 [facility] Comment on above: Order Comment: No: D o not add to previous draw Performed By: #### 5 7306, 58171 #### [facility] [address] [place] [address], [facility] Hemoglobin (Bld) [Mass/Vol] 8.9 g/dL Low 12.0-15.0 [facility] Comment on above: Order Comment: No: D o not add to previous draw Performed By: #### 5 7306, 83007 #### [facility] [address] [place] [address], [facility] MCH (RBC) [Entitic mass] 25.4 pg Low 27.0-33.0 [facility] Comment on above: Order Comment: No: D o not add to previous draw Performed By: #### 5 7306, 45674 #### [facility] [address] [place] [address], [facility] MCHC (RBC) [Mass/Vol] 30.0 g/dL Low 32.0-35.0 [facility] Comment on above: Order Comment: No: D o not add to previous draw Performed By: #### 5 7306, 00672 #### [facility] [address] [place] [address], [facility] MCV (RBC) [Entitic vol] 84.9 fL Normal 82.0-98.0 [facility] Comment on above: Order Comment: No: D o not add to previous draw Performed By: #### 5 7306, 33329 #### [facility] [address] Nucleated RBC/100 WBC (Bld) [Ratio] 0 % Normal 0-0 [facility] Comment on above: Order Comment: No: D o not add to previous draw Performed By: #### 5 7307, 66345 #### [facility] [address] [place] [address], [facility] PLAT CNT 446 10*3/uL High 150-400 [facility] Comment on above: Order Comment: No: D o not add to previous draw Performed By: #### 5 7307, 08427 #### [facility] [address] [place] [address], [facility] RBC (Bld) [#/Vol] 3.50 10*6/uL Low 3.80-5.00 [facility] Comment on above: Order Comment: No: D o not add to previous draw Performed By: #### 5 7307, 05967 #### [facility] [address] [place] [address], [facility] WBC (Bld) [#/Vol] 16.54 10*3/uL High 4.00-10.60 [facility] Comment on above: Order Comment: No: D o not add to previous draw Performed By: #### 5 7307, 94988 #### [facility] [address] Cardiovascular Lab Reporton 04-11-2021 Cardiovascular Lab Report [facility] Patient Name: Antonio [facility] S MR #: [id number] Department of Physician: London Rodas M.D. Division of Service Date: 04/11/2021 Cardiology Birthdate: 1970 Adult Cardiovascular Room #: 5AB [id number] [facility] [address] [address] Cardiovascular Laboratory Report PROCEDURE PERFORMED: Transesophageal echocardiogram and cardioversion. INDICATION: Atrial flutter. FELLOW: Dunia Sierra MD PROCEDURE IN DETAIL: Informed consent was obtained from the patient after explaining the indication, risks, benefits, as well as alternatives. The patient understood and agreed, and signed the consent form. The patient was brought to the dentures lab technician and transesophageal echocardiogram was performed, [...] Sierra MD Date Trans: 04/11/2021 12:53 P/marixa [id number] cc: Phillip Ann M.D. [address], [facility] [address] Normal [facility] MAGNESIUM BLOODon 04-11-2021 Magnesium [Mass/Vol] 2.3 mg/dL Normal 1.9-2.7 [facility] Comment on above: Order Comment: No: D o not add to previous draw Performed By: #### 5 7307, 28738 #### [facility] [address] POC GLUCOSE LABon 04-11-2021 Glucose [Mass/Vol] 124 mg/dL High 70-100 The [facility] Comment on above: Performed By: #### 5 7307, 42844 #### [facility] [address] TROPONIN-Ion 04-11-2021 Troponin I.cardiac [Mass/Vol] 0.06 ng/mL High 0.00-0.04 [facility] Comment on above: Order Comment: No: D o not add to previous draw Result Comment: REFE RENCE RANGES: 0.00 - 0.04 ng/ml NORMAL 0.05 - 0.50 ng/ml INDETERMINATE > 0.50 ng/ml CONSISTENT WITH AN M.I. Performed By: #### 5 7307, 50577 #### [facility] [address] *BLOOD CULTUREon 04-10-2021 *BLOOD CULTURE Clinical Report: (D) Specimen: BLOOD CULTURE Collected: 04/10/2021 09:50 Status: Final Last Updated: 04/15/2021 11:28 (1) Right hand CULT RES (Final) No Growth Day 5 Normal [facility] Comment on above: Order Comment: No: D o not add to previous draw Performed By: #### 5 7307, 35835 #### [facility] [facility] [address] *BLOOD CULTURE Clinical Report: (D) Specimen: BLOOD CULTURE Collected: 04/10/2021 09:50 Status: Final Last Updated: 04/15/2021 11:28 (1) Left hand CULT RES (Final) No Growth Day 5 Normal [facility] Comment on above: Order Comment: No: D o not add to previous draw Performed By: #### 5 7307, 33123 #### [facility] [address] *SARS-CoV-2 COVID-19on 04-10 SARS-CoV-2 (COVID-19) RNA DEIRDRE+probe Ql (Unsp spec) Not detected Normal Not Detected [facility] Comment on above: Order Comment: No: D o not add to previous draw Performed By: #### 5 7307, 20372 #### [facility] [address] APTTon 04-10-2021 aPTT Coag (Bld) [Time] 23.4 s Low 25.0-35.0 [facility] Comment on above: Order Comment: [...] THIS PURPOSE. Performed By: #### 5 7307, 13516 #### [facility] [address] aPTT Coag (Bld) [Time] 23.2 s Low 25.0-35.0 [facility] Comment on above: Order Comment: [...] THIS PURPOSE. Performed By: #### 5 7307, 20322 #### [facility] [address] BASIC METABOLIC PANELon 03-20 Calcium [Mass/Vol] 8.6 mg/dL Normal 8.6-10.3 [facility] Comment on above: Order Comment: No: D o not add to previous draw Performed By: #### 1 0070, 16075, 83250 #### [facility] [address] [place] [address], [facility] Chloride [Moles/Vol] 99 mmol/L Normal 98-107 [facility] Comment on above: Order Comment: No: D o not add to previous draw Performed By: #### 1 0070, 72385, 79341 #### [facility] [address] [place] [address], [place] CO2 [Moles/Vol] 32 mmol/L High 21-31 [facility] Comment on above: Order Comment: No: D o not add to previous draw Performed By: #### 1 0, 00768, 16572 #### [facility] [address] [place] [address], [place] Creatinine [Mass/Vol] 0.84 mg/dL Normal 0.60-1.20 [facility] Comment on above: Order Comment: No: D o not add to previous draw Performed By: #### 1 0, 03981, 36545 #### [facility] [address] [place] [address], [facility] GFR/1.73 sq M.predicted among blacks MDRD (S/P/Bld) [Vol rate/Area] mL/min/{1.73_m2} Normal >60 [facility] Comment on above: Order Comment: No: D o not add to previous draw Performed By: #### 1 0, 80183, 74314 #### [facility] [address] [place] [address], [place] GFR/1.73 sq M.predicted among non-blacks MDRD (S/P/Bld) [Vol rate/Area] mL/min/{1.73_m2} Normal >60 [facility] Comment on above: Order Comment: No: D o not add to previous draw Performed By: #### 1 0, 97610, 25051 #### [facility] [address] [place] [address], [place] Glucose [Mass/Vol] 117 mg/dL High 70-100 [facility] Comment on above: Order Comment: No: D o not add to previous draw Performed By: #### 1 0, 92536, 43664 #### [facility] [address] Potassium [Moles/Vol] 3.9 mmol/L Normal 3.5-5.1 [facility] Comment on above: Order Comment: No: D o not add to previous draw Performed By: #### 1 0070, 76978, 68214 #### [facility] [address] [place] [address], [facility] Sodium [Moles/Vol] 139 mmol/L Normal 136-145 [facility] Comment on above: Order Comment: No: D o not add to previous draw Performed By: #### 1 0070, 37407, 66955 #### [facility] [address] [place] [address], [facility] Urea nitrogen [Mass/Vol] 19 mg/dL Normal 7-25 [facility] Comment on above: Order Comment: No: D o not add to previous draw Performed By: #### 1 0070, 93285, 14277 #### [facility] [address] BNP (B-TYPE NATRIURETIC PEPT MARILYN)on 04-10-2021 Natriuretic peptide B (Bld) [Mass/Vol] 259 pg/mL High 0-100 [facility] Comment on above: Order Comment: No: D o not add to previous draw Result Comment: Give n the appropriate clinical setting a BNP result of >100 pg/mL indicates congestive heart failure. Performed By: #### 5 7307, 35713 #### [facility] [address] [facility] [place] [address], [facility] CBC W/DIFFon 04-10-2021 ABS IMM GRANS 1.1 10*3/uL High 0.0-0.2 [facility] Comment on above: Performed By: #### 5 0103 #### [facility] [address] [facility] [place] [address], [facility] ABS NEUTROPHILS 9.6 10*3/uL High 1.6-7.6 [facility] Comment on above: Performed By: #### 5 0103 #### [facility] [address] [place] [address], [facility] ANISO MODERATE Normal [facility] Comment on above: Performed By: #### 5 3 #### [facility] [address] [place] [address], [facility] Basophils (Bld) [#/Vol] 0.1 10*3/uL Normal 0.0-0.2 [facility] Comment on above: Performed By: #### 5 3 #### [facility] [address] [facility] [place] [address], [facility] Basophils/100 WBC (Bld) 0.7 % Normal 0.0-1.0 [facility] Comment on above: Performed By: #### 102 #### [facility] [address] [facility] [place] [address], [facility] Eosinophils (Bld) [#/Vol] 0.1 10*3/uL Normal 0.0-0.5 [facility] Comment on above: Performed By: #### 5 3 #### [facility] [address] [place] [address], [facility] Eosinophils/100 WBC (Bld) 0.4 % Normal 0.0-6.0 [facility] Comment on above: Performed By: #### 5 3 #### [facility] [address] [facility]. [address] Erythrocyte distribution width (RBC) [Ratio] 16.5 % High 11.5-15.0 [facility] Comment on above: Performed By: #### 5 3 #### [facility] [address] [facility] [address] Hematocrit (Bld) [Volume fraction] 31.2 % Low 36.0-45.0 [facility] Comment on above: Performed By: #### 5 3 #### [facility] [address] [place] [address], [facility] Hemoglobin (Bld) [Mass/Vol] 9.0 g/dL Low 12.0-15.0 [facility] Comment on above: Performed By: #### 5 0103 #### [facility] [address] [place] [address], [facility] HYPO SLIGHT Normal [facility] Comment on above: Performed By: #### 5 0103 #### [facility] [address] [place] [address], [facility] IMMATURE GRANS 6.8 % High 0.0-1.0 [facility] Comment on above: Performed By: #### 5 0103 #### [facility] [address] [facility] [place] [address], [facility] Lymphocytes (Bld) [#/Vol] 4.4 10*3/uL High 1.2-4.0 [facility] Comment on above: Performed By: #### 5 0103 #### [facility] [address] [facility] [place] [address], [facility] Lymphocytes/100 WBC (Bld) 26.4 % Normal 20.0-45.0 [facility] Comment on above: Performed By: #### 5 0103 #### [facility] [address] [facility] [place] [address], [facility] MCH (RBC) [Entitic mass] 25.3 pg Low 27.0-33.0 [facility] Comment on above: Performed By: #### 5 0103 #### [facility] [address] [facility] [place] [address], [facility] MCHC (RBC) [Mass/Vol] 28.8 g/dL Low 32.0-35.0 [facility] Comment on above: Performed By: #### 5 3 #### [facility] [address] [place] [address], [facility] MCV (RBC) [Entitic vol] 87.6 fL Normal 82.0-98.0 [facility] Comment on above: Performed By: #### 5 0103 #### [facility] [address] [place] [id number], [facility] Monocytes (Bld) [#/Vol] 1.3 10*3/uL High 0.1-1.0 [facility] Comment on above: Performed By: #### 5 0103 #### [facility] [address] [place] [address], [facility] MONOS 7.6 % Normal 5.0-12.0 [facility] Comment on above: Performed By: #### 5 3 #### [facility] [address] [place] [address], [facility] Neutrophils/100 WBC (Bld) 58.1 % Normal 40.0-72.0 [facility] Comment on above: Performed By: #### 5 102 #### [facility] [address] [place] [id number], [facility] Nucleated RBC/100 WBC (Bld) [Ratio] 1 % High 0-0 [facility] Comment on above: Performed By: #### 5 102 #### [facility] [address] [place] [address], [facility] PLAT CNT 483 10*3/uL High 150-400 [facility] Comment on above: Performed By: #### 102 #### [facility] [address] [place] [address], [facility] POIK SLIGHT Normal [facility] Comment on above: Performed By: #### 3 #### [facility] [address] [place] [address], [place] POLY SLIGHT Normal [facility] Comment on above: Performed By: #### 3 #### [facility] [address] [place] [address], [facility] RBC (Bld) [#/Vol] 3.56 10*6/uL Low 3.80-5.00 [facility] Comment on above: Performed By: #### 5 0103 #### [facility] [address] [place] [address], [facility] WBC (Bld) [#/Vol] 16.54 10*3/uL High 4.00-10.60 [facility] Comment on above: Performed By: #### 5 0103 #### [facility] [address] [place] [address], [facility] LIPID PROFILEon 04-10-2021 Cholesterol [Mass/Vol] 161 mg/dL Normal 120-200 [facility] Comment on above: Result Comment: CHOL ESTEROL REFERENCE RANGE: 20 YEARS AND OLDER CARDIOVASCULAR RISK Less than 200 mg/dl Low Risk 200 to 239 mg/dl Borderline Risk 240 mg/dl and greater High Risk Performed By: #### 3 1569, 10468, 52697 #### [facility] [address] [facility] [address], [facility] Cholesterol in HDL [Mass/Vol] 61 mg/dL Normal 23-92 [facility] Comment on above: Result Comment: Slig ht variation in normal range could be due to gender and/or age. HDL CHOLESTEROL REFERENCE RANGE: 20 years and older Cardiovascular Risk > or =60 mg/dL Desirable 40 TO 59 mg/dL Low Risk <40 mg/dL High Risk Performed By: #### 3 1569, 90108, 30648 #### [facility] [address] [place] [address], [facility] Cholesterol in LDL [Mass/Vol] 28 mg/dL Normal 0-130 [facility] Comment on above: Result Comment: LDL IS A CALCULATION LDL IS ONLY VALID IF THE TRIG IS LESS THAN 400. Performed By: #### 3 1569, 84978, 02126 #### [facility] [address] [place] [address], [place] Cholesterol.total/Ch olesterol in HDL [Mass ratio] 2.6 {ratio} Normal .0-4.5 [facility] Comment on above: Performed By: #### 3 1569, 89009, 09354 #### [facility] [address] [place] [address], [place] NON-HDL CHOLESTEROL 100 mg/dL Normal [facility] Comment on above: Performed By: #### 3 1569, 63347, 84859 #### [facility] [address] [place] [address], [place] Triglyceride [Mass/Vol] 362 mg/dL High 40-149 [facility] Comment on above: Result Comment: TRIG LYCERIDE REFERENCE RANGE: 20 YEARS AND OLDER CARDIOVASCULAR RISK LESS THAN 150 mg/dl LOW RISK 150 TO 199 mg/dl BORDERLINE RISK 200 mg/dl AND GREATER HIGH RISK Performed By: #### 3 1569, 58395, 78273 #### [facility] [address] [place] [address], [place] VLDL CHOL 72 mg/dL High 0-40 [facility] Comment on above: Performed By: #### 3 1569, 14918, 58953 #### [facility] [address] [place] [address], [place] MAGNESIUM BLOODon 04-10-2021 Magnesium [Mass/Vol] 2.4 mg/dL Normal 1.9-2.7 [facility] Comment on above: Order Comment: No: D o not add to previous draw Performed By: #### 1 0070, 26964, 95685 #### [facility] [address] [place] [address], [place] POC GLUCOSE LABon 04-10-2021 Glucose [Mass/Vol] 350 mg/dL High 70-100 The [facility] Comment on above: Performed By: #### 5 7307, 51404 #### [facility] [address] [place] [address], [place] Glucose [Mass/Vol] 249 mg/dL High 70-100 The [facility] Comment on above: Performed By: #### 5 7307, 73707 #### [facility] [address] PROCALCITONINon 04-10-2021 PROCALCITONIN 0.09 ng/mL Normal 0.00-0.10 The [facility] Comment on [...] initial PCT<0.5ng/mL Performed By: #### 5 7307, 44337 #### [facility] [address] PROTHROMBIN TIMEon 1 INR Coag (PPP) [Relative time] 1.07 {INR} Normal 0.91-1.16 [facility] Comment on above: Order Comment: [...] CHEST 1995;108:[id number]. Performed By: #### 5 7307, 79971 #### [facility] [address] [facility] [place] [address], [facility] PT Coag (PPP) [Time] 13.9 s Normal 12.3-14.8 [facility] Comment on above: Order Comment: No: D o not add to previous draw Result Comment: ALL RESULTS MUST BE INTERPRETED WITH RESPECT TO BLOOD DRAWING ARTIFACT OR DILUTION ERROR OF ANTICOAGULANT AT THE TIME OF SAMPLING. Performed By: #### 5 7307, 13865 #### [facility] [address] [place] [address], [facility] TROPONIN-Ion 04-10-2021 Troponin I.cardiac [Mass/Vol] 0.07 ng/mL High 0.00-0.04 [facility] Comment on above: Order Comment: No: D o not add to previous draw Result Comment: REFE RENCE RANGES: 0.00 - 0.04 ng/ml NORMAL 0.05 - 0.50 ng/ml INDETERMINATE > 0.50 ng/ml CONSISTENT WITH AN M.I. Performed By: #### 3 1569, 97101, 99250 #### [facility] [address] [place] [address], [facility] Troponin I.cardiac [Mass/Vol] 0.07 ng/mL High 0.00-0.04 [facility] Comment on above: Order Comment: No: D o not add to previous draw Result Comment: REFE RENCE RANGES: 0.00 - 0.04 ng/ml NORMAL 0.05 - 0.50 ng/ml INDETERMINATE > 0.50 ng/ml CONSISTENT WITH AN M.I. Performed By: #### 1 0070, 33158, 33437 #### [facility] [address] [facility]. [address] TSH3 WITH REFLEX FT4on 04-10 TSH 3RD GENERATION 0.95 uIU/mL Normal 0.34-5.60 The [facility] Comment on above: Order Comment: Yes: Add to Previous draw if able Performed By: #### 3 1569 #### [facility] [address] [facility] [address] TSH 3RD GENERATION 3.12 uIU/mL Normal 0.34-5.60 The [facility] Comment on above: Performed By: #### 3 1569, 73797, 46816 #### [facility] [address] [facility]. [address] UFH HEPARIN ASSAYon 04-10-20 21 UNFRACTIONATED HEPARIN >1.00 Critically high 0.30-0.70 [facility] Comment on above: Result Comment: Resu lt checked and called. Accurately read back by Haven Avila RN at 1122 per RN patient may have previously been given Eliquis. UFH = 1.36 for pharmacy use Rivaroxaban and Apixaban will interfere with the anti Xa assay used to monitor UFH and LMWH. Performed By: #### 5 7307, 31282 #### [facility] [address] [place] [address], [facility] Cardiovascular Lab Reporton 01-30-2021 Cardiovascular Lab Report [facility] Patient Name: Antonio, Diana [facility] S MR #: [id number] Department of Physician: London Ross M.D. Division of Service Date: 01/30/2021 Cardiology Birthdate: 1970 Adult Cardiovascular Room #: [facility] [address] [place], [place] [address] Cardiovascular Laboratory Report FINAL IMPRESSIONS: 1. Moderately [...] 5. Follow up with Cardiology in the [facility] office in the next 2 to [...] right internal jugular vein was obtained. A 6-Kazakh glide sheath was inserted without difficulty. A [...] Bear M.D. Date Trans: 01/30/2021 02:48 P/mmo [id number] cc: Phillip Ann M.D. [address], [facility] [address] [facility] Vital Signs Date Time Vital Sign Value Performing Clinician Iman stafford 04-04-2024 13:58-0400 Blood Pressure Location Juan Miguel [employer] [facility] 04-04-2024 13:58-0400 Diastolic blood pressure 76 mm[Hg] Juan Miguel OSHEAL [facility] 04-04-2024 13:58-0400 Heart rate 72 /min Juan Miguel OSHEAL [facility] 04-04-2024 13:58-0400 Respiratory rate 16 /min Juan Miguel OSHEAL [facility] 04-04-2024 13:58-0400 Systolic blood pressure 122 mm[Hg] Juan Miguel NILL [facility] 09-15-2022 15:24-0500 Blood Pressure Location [employer] [facility] 09-15-2022 15:24-0500 Diastolic blood pressure 78 mm[Hg] Juan Miguel OSHEAL [facility] 09-15-2022 15:24-0500 Heart rate 70 /min Juan Miguel CHAVEZ [facility] 09-15-2022 15:24-0500 Respiratory rate 16 /min Juan Miguel OSHEAL [facility] 09-15-2022 15:24-0500 Systolic blood pressure 116 mm[Hg] Juan Miguel OSHEAL [facility] Encounters Encounter Date Encounter Type Care Provider Facility Start: 10-26-2024 End: 10-26-2024 ambulatory [facility] Start: 10-18-2024 ambulatory [facility] Start: 09-12-2024 End: 09-12-2024 ambulatory [facility] Start: 06-09-2024 ambulatory [facility] Start: 05-24-2024 ambulatory [facility] Start: 04-19-2024 End: 04-19-2024 ambulatory Juan Miguel CHAVEZ Facility:[id number] Start: 04-17-2024 ambulatory [facility] Start: 04-13-2024 End: 04-13-2024 ambulatory [facility] Start: 04-13-2024 End: 04-13-2024 Encounter for other preprocedural examination [facility] Start: 04-04-2024 End: 04-04-2024 [facility]ulatory [facility]: 04-04-2024 End: 04-04-2024 Patient encounter procedure Juan Miguel CHAVEZ [facility] Start: 01-11-2024 ambulatory [facility] Start: 12-28-2023 ambulatory [facility] Start: 11-17-2022 End: 11-17-2022 ambulatory EMILY ZHONG . Facility: Start: 10-28-2022 End: 10-28-[address] PHILLIP ANN . Facility:[facility] Start: 09-24-2022 End: 09-24-[address] PHILLIP ANN . Facility:[facility] Start: 09-15-2022 End: 09-15-2022 Patient encounter procedure Juan Miguel CHAVEZ General Surgery Brad/Juan M Red Start: 09-09-2022 End: 09-10-2022 ambulatory [...] CENTER Start: 01-30-2021 End: 01-31-2021 ambulatory ADAMAB A JASPER Facility:[facility] Procedures Date Procedure Procedure Detail Performing Clinician Start: 04-11-2021 Bahai of Cardi ac Rhythm, Single SAMER Sony [...] unspecified formulation Juan Miguel CHAVEZ [facility] 10-29-2020 SARS-CoV-2 (COVID-19 ) mRNA-1273 vaccine Juan Miguel CHAVEZ [facility] 10-25-2020 SARS-CoV-2 (COVID-19 ) mRNA BNT-162b2 vax Juan Miguel CHAVEZ [facility] Comment on above: Result Comment: 2022: [id number] 10-24-2020 SARS-CoV-2 (COVID-19 ) mRNA BNT-162b2 vax Juan Miguel OSHEAL [facility] 10-04-2020 SARS-CoV-2 (COVID-19 ) mRNA BNT-162b2 vax Juan Miguel OSHEAL [facility] Comment on above: Result Comment: 2022: [id number] 10-03-2020 SARS-CoV-2 (COVID-19 ) mRNA BNT-162b2 vax Juan Miguel OSHEAL [facility] Payers Date Payer Category Payer Unknown [id number] 1970 Unknown [id number] 2.16.8 [id number] 1970 Unknown [id number] 2.16.8 40.1.478048.3.579.2.647 1970 Unknown [id number] 2.16.84 0.1.468957.3.579.2.593 1970 Unknown [id number] 2.16.84 0.1.129550.3.579.2.593 1970 Unknown [id number] 2.16.84 0.1.906248.3.579.2.593 1970 Unknown [id number] 2.16.84 0.1.085889.3.579.2.593 1970 Unknown [id number] 2.16.84 0.1.990989.3.579.2.593 1970 Unknown [id number] 2.16.84 0.1.393693.3.579.2.593 1970 Unknown [id number] 2.16.84 0.1.192258.3.579.2.593 1970 Unknown [id number] 2.16.84 0.1.630253.3.579.2.593 1970 Unknown [id number] 2.16.84 0.1.742021.3.579.2.593 1968 Unknown [id number] 2.16.84 0.1.480681.3.579.2.593 1968 Unknown [id number] 2.16.84 0.1.575837.3.579.2.593 1968 Unknown [id number] 2.16.84 0.1.711025.3.579.2.593 1968 Unknown [id number] 2.16.84 0.1.676398.3.579.2.593 1970 Unknown [id number] 2.16.8 40.1.918512.3.579.2.727 1970 Unknown [id number] 2.16.8 40.1.946444.3.579.2.727 1961 Unknown [id number] 1961 Unknown [id number] 1961 Unknown [id number] 1961 Unknown [id number] Social History Date Type Detail Facility Start: 09-15-2022 End: 04-04-2024 Tobacco smoking status Ex-smoker (finding) [facility] Tobacco smoking status Never Gener [facility] Sex Assigned At Female [facility] Medical Equipment Procedure Code Equipment Code Equipment Origin al Text Equipment Identifier Dates lancets, glucome ter, alcohol swabs, testing strips, insulin pen needles, Print Requisition, Supply Start: 08-25-2021 lancets, glucome ter, alcohol swabs, testing strips, insulin pen needles, Print Requisition, Supply Start: 08-25-2021 Functional Status Date Assessment Result Facility 04-04-2024 Functional Status N/A [facility] 09-15-2022 Functional Status N/A [facility] [place] [facility] Clinical Notes 04-12-2021 to 10-26-2024 Note Date & Type Note Facility 10-26-2024 Note [facility] 10-26-2024 Note Cardiovascular [facility] SUBJECTIVE Chief Complaint Patient presents [...] trended upwards is a since seen in [facility] 04/28/2023 and was diagnosed with vertigo [...] PMHx: COPD, hypertension, and diabetes, atrial flutter s (more content not included)... [facility] 10-26-2024 Note Patient here for com plaints of hypotension, dizziness. Patient denies chest pain, SOB, leg swelling. Patient states she feels really good expect for the dizzy spells. Review of Systems Musculoskeletal: Positive for joint pain. Neurological: Positive for dizziness and headaches. [facility] 09-12-2024 Note [place] [facility] Consul t Note [...] trended upwards is a since seen in [facility] 04/28/2023 and was diagnosed with vertigo [...] Not on file (more content not included)... [facility] 04-13-2024 Note [facility] SUBJECTIVE Chief Complaint Patient presents with [...] trended upwards is a since seen in [facility] 04/28/2023 and was diagnosed with vertigo [...] disease (CMS/HCC) C (more content not included)... [facility] 04-13-2024 Note Patient here for 6 m [...] All other systems reviewed and are negative. [facility] 04-04-2024 Note General Surgery Offi ce/Clinic Note [...] Diabetes Diverticulosis Ep (more content not included)... [facility] Comment on above: Result Comment: Elec tronically Signed By: BRAD DIAZ, Juan Miguel Lee.lev\Date and Time Signed: 04/04/24 17:16 EDT 11-17-2022 Note PROCEDURE: XR CHEST 1 V [...] authenticated by: AUDREY BO Date: 2022-11-17 12:14 [facility] 04-12-2021 Note MR#: [id number] [facility] Pt. Name: Diana Alvarez Admitted: 04/10/2021 Discharged: 04/11/2021 Date of : 1970 Physician: Albert Wick MD DISCHARGE SUMMARY PRIMARY DIAGNOSIS: New-onset atrial flutter with RVR. SECONDARY DIAGNOSES: 1. Pulmonary hypertension. 2. COPD. 3. Diabetes. HISTORY OF PRESENT ILLNESS: This patient is a 50-year-old female with past medical history of COPD, hypertension, and diabetes, who was sent from [facility] due to atrial flutter with RVR due [...] Wick MD Date Trans: 04/12/2021 03:25 P/marixa [id number] cc: Phillip Ann M.D. [address] [facility] [id number] [facility] Evaluation + Plan note No data available for this section General Surgery [facility] Discharge instructions No data available for this section General Surgery [facility] note No data available for this section General Surgery Neda Summary Purpose Family History No Family History [...] and content) DATE CREATED AUTHOR 09/10/2021 [facility] DATE CREATED AUTHOR AUTHOR'S ORGANIZ ATION 12/24/2021 [facility] DATE CREATED AUTHOR AUTHOR'S ORGANIZ ATION 11/20/2022 [facility] DATE CREATED AUTHOR AUTHOR'S ORGANIZ ATION 05/01/2024 [facility] DATE CREATED AUTHOR AUTHOR'S ORGANIZ ATION 10/27/[address] [facility] Patient Care team informatio n (unrecognized section and content) Personnel Name: Phillip Ann MD Address: Address: [address] [place] [address] Personnel Name: Phillip Ann MD Address: Address: [address] [place] [address] FOR RECORDS PERTAINING TO PATIENTS WHO ARE [...] BE BASED ON THE PRIMARY CLINICAL RECORDS. [facility] [employer] [facility]. provides no warranty or guarantee of the accuracy or completeness of information in this document.
--- NOTE | 2024-10-28 17:41 | ED.GENADUL1 ---
HPI HPI - General Adult General Chief complaint: Extremity Problem, Nontraumatic Stated complaint: LOWER RIGHT EXTREMITY PAIN Time Seen by Provider: 10/28/24 17:27 Source: patient Mode of arrival: walk-in Limitations: no limitations History of Present Illness HPI narrative: 54-year-old female presents for pain in the right foot at the first MTP joint. She gives no history of trauma she has had it for 2 days. She has had gout before and it feels the same. The pain is severe and continuous. No other joint pain. Related Data Home Medications ?Medication ?Instructions ?Recorded ?Confirmed albuterol sulfate 90 mcg/actuation 2 puff inhalation Q4H PRN wheezing 04/18/23 04/19/24 aerosol inhaler (Ventolin HFA) apixaban 5 mg tablet (Eliquis) 5 mg PO BID 04/18/23 04/19/24 diltiazem HCl 240 mg 240 mg PO Q24H 04/18/23 04/19/24 capsule,extended release 24 hr ezetimibe 10 mg tablet 10 mg PO DAILY 04/18/23 04/19/24 ferrous sulfate 325 mg (65 mg 325 mg PO BID 04/18/23 04/19/24 iron) tablet furosemide 40 mg tablet 40 mg PO DAILY 04/18/23 04/19/24 isosorbide mononitrate 30 mg 30 mg PO DAILY 04/18/23 04/19/24 tablet,extended release 24 hr metformin 500 mg tablet 500 mg PO DAILY 04/18/23 04/19/24 pantoprazole 40 mg tablet,delayed 40 mg PO DAILY 04/18/23 04/19/24 release potassium chloride 20 mEq 20 meq PO BID 04/18/23 04/19/24 tablet,extended release rosuvastatin 5 mg tablet 5 mg PO DAILY 04/18/23 04/19/24 metoprolol succinate 25 mg 50 mg PO DAILY 04/28/23 04/19/24 tablet,extended release 24 hr cholecalciferol (vitamin D3) 50 50 mcg PO DAILY 11/18/23 04/19/24 mcg (2,000 unit) capsule lisinopril 5 mg tablet 5 mg PO DAILY 01/28/24 04/19/24 allopurinol 100 mg tablet 100 mg PO DAILY 04/05/24 04/19/24 ropinirole 0.5 mg tablet 0.5 mg PO DAILY 04/05/24 04/19/24 colchicine 0.6 mg tablet 0.6 mg PO DAILY PRN gout 04/13/24 04/19/24 semaglutide 2 mg/dose (8 mg/3 mL) 2 mg subcut DAILY 04/13/24 04/19/24 subcutaneous pen injector (Ozempic) Previous Rx's ?Medication ?Instructions ?Recorded acetaminophen 325 mg capsule 650 mg (2 x 325 mg) PO .q8 PRN 04/18/23 (Tylenol) pain #20 caps ondansetron 4 mg disintegrating 4 mg PO Q6H PRN nausea and 11/19/23 tablet vomiting #20 tabs hyoscyamine sulfate 0.125 mg 0.125 mg PO Q6H PRN abdominal pain 11/23/23 tablet (Levsin) #12 tabs azithromycin 250 mg tablet See Rx Instructions PO .COMPLEX #6 06/24/24 (Zithromax Z-Derek) tabs benzonatate 100 mg capsule 100 mg PO TID PRN cough #20 caps 06/24/24 ukmisjlrzu-zxczxnvnfibmn-zahgavad 1 cap PO Q6H PRN pain 5 days #20 06/24/24 50 mg-300 mg-40 mg capsule caps (Fioricet) ondansetron 4 mg disintegrating 4 mg PO Q8H PRN nausea and 08/13/24 tablet vomiting 48 hours #7 tabs hydrocodone 5 mg-acetaminophen 325 1 tab PO Q6H PRN pain 5 days #20 10/28/24 mg tablet tabs prednisone 10 mg tablet See Rx Instructions .Route 10/28/24 .COMPLEX #30 tabs Allergies Allergy/AdvReac Type Severity Reaction Status Date / Time morphine Allergy Intermediate Palpitation Verified 10/28/24 17:35 s Opioid HPI Opioid Management Most Recent Opioid Data: Last Pain Scale 8 08/13/24 10:38 08/13/24 Review of Systems ROS Narrative A ten point review of systems is negative except as noted above. [facility] Medical History (Updated 10/28/24 @ 17:39 by Gerry Rocha MD) Pulmonary hypertension ?I27.20 - Pulmonary hypertension, unspecified (ICD-10) Pericardial effusion ?I31.39 - Other pericardial effusion (noninflammatory) (ICD-10) Paroxysmal atrial fibrillation ?I48.0 - Paroxysmal atrial fibrillation (ICD-10) Nausea ?R11.0 - Nausea (ICD-10) Mild aortic stenosis ?I35.0 - Nonrheumatic aortic (valve) stenosis (ICD-10) Insomnia ?G47.00 - Insomnia, unspecified (ICD-10) Irritable bowel syndrome ?K58.9 - Irritable bowel syndrome without diarrhea (ICD-10) Hypertriglyceridemia ?E78.1 - Pure hyperglyceridemia (ICD-10) Hypercholesterolemia ?E78.00 - Pure hypercholesterolemia, unspecified (ICD-10) Hypertension ?I10 - Essential (primary) hypertension (ICD-10) Fibrocystic breast disease ?N60.19 - Diffuse cystic mastopathy of unspecified breast (ICD-10) Epigastric pain ?R10.13 - Epigastric pain (ICD-10) Diverticulosis ?K57.90 - Diverticulosis of intestine, part unspecified, without perforation or abscess without bleeding (ICD-10) Cystic kidney disease ?Q61.9 - Cystic kidney disease, unspecified (ICD-10) Chronic diastolic heart failure ?I50.32 - Chronic diastolic (congestive) heart failure (ICD-10) Cholelithiasis ?K80.20 - Calculus of gallbladder without cholecystitis without obstruction (ICD-10) Cervical disc disease ?M50.90 - Cervical disc disorder, unspecified, unspecified cervical region (ICD-10) Abdominal pain ?R10.9 - Unspecified abdominal pain (ICD-10) Abdominal bloating ?R14.0 - Abdominal distension (gaseous) (ICD-10) Back pain ?M54.9 - Dorsalgia, unspecified (ICD-10) Arthritis ?M19.90 - Unspecified osteoarthritis, unspecified site (ICD-10) Anemia ?D64.9 - Anemia, unspecified (ICD-10) Depression ?F32.A - Depression, unspecified (ICD-10) Panic attacks ?F41.0 - Panic disorder [episodic paroxysmal anxiety] (ICD-10) RUQ pain ?R10.11 - Right upper quadrant pain (ICD-10) Sleep apnea ?G47.30 - Sleep apnea, unspecified (ICD-10) Chronic obstructive pulmonary disease ?J44.9 - Chronic obstructive pulmonary disease, unspecified (ICD-10) Asthma ?J45.909 - Unspecified asthma, uncomplicated (ICD-10) COVID-19 ?U07.1 - COVID-19 (ICD-10) Positive colorectal cancer screening using Cologuard test ?R19.5 - Other fecal abnormalities (ICD-10) Dyspnea on exertion ?R06.09 - Other forms of dyspnea (ICD-10) Extremity edema ?R60.0 - Localized edema (ICD-10) Congestive heart failure (CHF) ?I50.9 - Heart failure, unspecified (ICD-10) Pericarditis ?I31.9 - Disease of pericardium, unspecified (ICD-10) Atrial flutter ?I48.92 - Unspecified atrial flutter (ICD-10) Atrial fibrillation ?I48.91 - Unspecified atrial fibrillation (ICD-10) Diabetes ?E11.9 - Type 2 diabetes mellitus without complications (ICD-10) Gout ?M10.9 - Gout, unspecified (ICD-10) Nasal congestion ?R09.81 - Nasal congestion (ICD-10) Breast cyst ?N60.09 - Solitary cyst of unspecified breast (ICD-10) Implantable loop recorder present ?Z95.818 - Presence of other cardiac implants and grafts (ICD-10) Surgical History (Updated 04/13/24 @ 09:03 by Martina Muñiz NP) H/O removal of cyst ?Z98.890 - Other specified postprocedural states (ICD-10) History of colonoscopy ?Z98.890 - Other specified postprocedural states (ICD-10) History of tubal ligation ?Z98.51 - Tubal ligation status (ICD-10) History of cardiac radiofrequency ablation ?Z98.890 - Other specified postprocedural states (ICD-10) History of section ?Z98.891 - History of uterine scar from previous surgery (ICD-10) Family History (Updated 04/13/24 @ 08:57 by Martina Muñiz NP) Other Family history of breast cancer Family history of diabetes mellitus Family history of heart disease Family history of hypertension Family history of myocardial infarction Family history of renal failure Family history of stroke Social History (Updated 04/13/24 @ 08:47 by Martina Muñiz NP) Within the past year, how often did you have a drink containing alcohol: monthly or less Smoking status: Former smoker Non-prescribed substance use: denies use 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 General: The patient appears well and in no apparent distress. Patient is resting comfortably on cart. Skin: Warm, dry, no pallor noted. There is no rash noted. Head: Normocephalic, atraumatic Eye: Normal conjunctiva, no drainage Ears, Nose, Mouth, and Throat: oral mucosa is moist. Nares patent. Cardiovascular: Not Respiratory: Patient is in no distress, no accessory muscle use, lungs are clear to auscultation, no wheezing, rales or rhonchi Back: non-tender, no CVA tenderness bilaterally to percussion. GI: Soft and nontender Musculoskeletal: She has erythema and swelling of the right foot first MTP joint. No open area or drainage Neurological: A&O, normal speech Psychiatric: Cooperative Constitutional Vital Signs, click to edit/add: Last Vital Signs Temp 97.9 F 10/28/24 17:30 Pulse 77 10/28/24 17:30 Resp 20 10/28/24 17:30 BP 123/87 10/28/24 17:30 Pulse Ox 99 10/28/24 17:30 Course Vital Signs Vital signs: Vital Signs Temperature 97.9 F 10/28/24 17:30 Pulse Rate 77 10/28/24 17:30 Respiratory Rate 20 10/28/24 17:30 Blood Pressure 123/87 10/28/24 17:30 Pulse Oximetry 99 10/28/24 17:30 Temperature 97.9 F 10/28/24 17:30 Pulse Rate 77 10/28/24 17:30 Respiratory Rate 20 10/28/24 17:30 Blood Pressure 123/87 10/28/24 17:30 Pulse Oximetry 99 10/28/24 17:30 Medical Decision Making [facility] Narrative Medical decision making narrative: My clinical impression is that she has acute gout. She was given IM Toradol and prescribed Misenheimer and prednisone. Treatment diagnosis and follow-up were discussed with the patient. Differential Diagnosis Differential Diagnosis: Gout, arthritis, sprain Discharge Plan Discharge Chief Complaint: Extremity Problem, Nontraumatic Clinical Impression: Gout of foot Patient Disposition: Home, Self-Care Time of Disposition Decision: 17:39 Condition: Good Mode of Transportation: Private Vehicle Prescriptions / Home Meds: New hydrocodone-acetaminophen 5-325 mg tablet 1 tab PO Q6H PRN (Reason: pain) 5 Days Qty: 20 0RF prednisone 10 mg tablet See Rx Instructions .ROUTE .COMPLEX Qty: 30 0RF Rx Instructions: 4 by mouth daily for three days then 3 by mouth daily for three days then 2 by mouth daily for three days then 1 by mouth daily for three days No Action albuterol sulfate [Ventolin HFA] 90 mcg/actuation HFA aerosol inhaler 2 puff INHALATION Q4H PRN (Reason: wheezing) Eliquis 5 mg tablet 5 mg PO BID diltiazem HCl 240 mg capsule,extended release 24hr 240 mg PO Q24H ezetimibe 10 mg tablet 10 mg PO DAILY ferrous sulfate 325 mg (65 mg iron) tablet 325 mg PO BID furosemide 40 mg tablet 40 mg PO DAILY isosorbide mononitrate 30 mg tablet extended release 24 hr 30 mg PO DAILY metformin 500 mg tablet 500 mg PO DAILY pantoprazole 40 mg tablet,delayed release (DR/EC) 40 mg PO DAILY potassium chloride 20 mEq tablet extended release 20 meq PO BID rosuvastatin 5 mg tablet 5 mg PO DAILY acetaminophen [Tylenol] 325 mg capsule 650 mg PO .q8 PRN (Reason: pain) Qty: 20 0RF metoprolol succinate 25 mg tablet extended release 24 hr 50 mg PO DAILY lisinopril 5 mg tablet 5 mg PO DAILY ondansetron 4 mg tablet,disintegrating 4 mg PO Q8H PRN (Reason: nausea and vomiting) 2 Days Qty: 7 0RF cholecalciferol (vitamin D3) 50 mcg (2,000 unit) capsule 50 mcg PO DAILY ondansetron 4 mg tablet,disintegrating 4 mg PO Q6H PRN (Reason: nausea and vomiting) Qty: 20 0RF hyoscyamine sulfate [Levsin] 0.125 mg tablet 0.125 mg PO Q6H PRN (Reason: abdominal pain) Qty: 12 0RF Ozempic 2 mg/dose (8 mg/3 mL) pen injector 2 mg SUBCUT DAILY colchicine 0.6 mg tablet 0.6 mg PO DAILY PRN (Reason: gout) ropinirole 0.5 mg tablet 0.5 mg PO DAILY allopurinol 100 mg tablet 100 mg PO DAILY benzonatate 100 mg capsule 100 mg PO TID PRN (Reason: cough) Qty: 20 0RF wtqsrssdds-iwjqhlqoesgdy-trrz [Fioricet] 50-300-40 mg capsule 1 cap PO Q6H PRN (Reason: pain) 5 Days Qty: 20 0RF azithromycin [Zithromax Z-Derek] 250 mg tablet See Rx Instructions .ROUTE .COMPLEX Qty: 6 0RF Rx Instructions: For 250 mg dose pack: take 500 mg today (day 1), then 250 mg for 4 days (days 2-5) Print Language: Hong Konger Instructions: Gout (ED) Referrals: Xavi Ann MD [Primary Care Provider] - 1 week
[2024-10-28] MEDS: KETOROLAC TROMETHAMINE 60 MG/2 ML VIAL IM (17:49)
== END 2024-10-28 18:06 | disposition home or self-care (01) ==
PROVIDERS: Emergency Provider Emergency Medicine; PCP Family Medicine
DX: M10.9 Gout, unspecified (principal); M79.671 Pain in right foot
CPT/HCPCS: 96372; 99284; J1885

== ENCOUNTER 2024-11-28 13:03 | Outpatient (OUT) | payer OTHER, SELFPAY ==
--- NOTE | 2024-11-28 13:00 | CA_ITS ---
Patient Name: LEIGHANN TALAMANTES MR#: [id number] : 1970 Exam Date: 11/28/2024 Ordering Doctor: JENNA HENDERSON CNP ECHOCARDIOGRAM REPORT PROCEDURE: CA ECHO DOPPLER COMPLETE INDICATIONS: Chronic diastolic heart failure, dizziness, h/o ablation, COPD, hypertension, diabetes COMPARISON: None. DESCRIPTION: COMPLETE ECHOCARDIOGRAM Real-time transthoracic echocardiography with 2D, M-mode, spectral and color flow Doppler performed. QUALITY: Technical quality was good. LEFT VENTRICLE: Normal chamber size. Mild left ventricular hypertrophy. LV EF: Global left ventricular systolic function is hyperdynamic; visually estimated ejection fraction of 65 to 70%. No wall motion abnormalities. DIASTOLIC: Unable to assess diastolic function. ATRIAL SEPTUM: Visually appears intact. LEFT ATRIUM: Normal chamber size. RIGHT ATRIUM: Normal chamber size. RIGHT VENTRICLE: Normal chamber size. Normal right ventricular systolic function. TRICUSPID VALVE: Normal mobility and thickness. No stenosis with no regurgitation. Unable to assess right ventricular systolic pressure due to lack of measurable tricuspid regurgitation. MITRAL VALVE: Normal mobility and thickness. No evidence of mitral valve stenosis. Mild mitral annular calcification. Trivial mitral regurgitation. AORTIC VALVE: Normal trileaflet appearance. Mildly calcified aortic valve. Normal leaflet mobility. No evidence of aortic valve stenosis. No aortic regurgitation. AORTIC ROOT: Normal diameter and appearance. PULMONIC VALVE: Normal thickness and mobility. No stenosis. No regurgitation. PERICARDIUM: No evidence of pericardial effusion. IVC: Collapses with inspirations. IVC is normal in size. CONCLUSION: 1. Global left ventricular systolic function is hyperdynamic; visually estimated ejection fraction is 65 to 70% 2. Normal right ventricular size and systolic function 3. Mildly increased left ventricular wall thickness 4. Unable to assess diastolic function 5. No significant valvular abnormalities Adult Echocardiography Procedure Report Left Ventricle LVEDD (3.7 - 5.6 cm): 3.91 cm LVESD (2.2 - 4.0 cm): 2.93 cm LVIVS thickness (0.6 - 1.2 cm): 1.11 cm LVPW thickness (0.5 - 1.0 cm): 0.84 cm e': 0.06 m/s E - e': 14.58 LVOT Max Gradient: 10.25 mm[Hg] LVOT Area (cm2): 1.60 m/s Peak Velocity (LVOT): 1.60 m/s Mean Velocity (LVOT): 1.15 m/s LVOT Diameter 1.92 cm Left Atrium LA Volume Index (2D A2C): 25.88 ml/m2 Left Atrium Systolic Dimension: 3.72 cm Mitral Valve MV E to A Ratio: 0.69 Mitral Valve A-Wave Peak Velocity: 1.29 m/s Mitral Valve E-Wave Peak Velocity: 0.88 m/s Right Ventricle Aorta AO Root Diam: 3.04 cm Aortic Valve AoV Area (Peak Norman): 2.54 cm2, 2.54 cm2 AoV Area (VTI): 2.77 cm2, 2.77 cm2 Peak Velocity(Antegrade Flow): 1.83 m/s Peak Gradient(Antegrade Flow): 13.45 mm[Hg] Mean Velocity(Antegrade Flow): 1.34 m/s Mean Gradient(Antegrade Flow): 8.10 mm[Hg] Velocity Time Integral: 38.74 cm Tricuspid Valve Pulmonic Valve Mean Gradient: 3.51 mm[Hg] Mean Velocity: 0.86 m/s Peak Velocity: 1.34 m/s, 1.28 m/s Peak Gradient: 6.59 mm[Hg], 7.19 mm[Hg] Right Atrium Right Atrium Systolic Pressure: 30.75 ml, 30.75 ml Dictated by: Cassy Bear M.D. on 11/29/2024 at 15:36 Approved by: Cassy Bear M.D. on 11/29/2024 at 15:41
--- OUTSIDE RECORDS SUMMARY | 2024-11-28 13:30 | XMS_ITS | CCD ---
Author Organization [facility] Care Team Providers Care Social Media Developer Name Role Phone CASSY BEAR A Admitting Unavailable CASSY BEAR Attending Unavailable PHILLIP ANN Referring Unavailable PHILLIP ANN Primary Care Unavailable PHILLIP ANN Referring Unavailable XIAO TORRES Surgeon Unavailable ALBERT HUI Attending Unavailable CALLI PAIGE Admitting Unavailable ND Procedure Practitioner Unavailab PHILLIP Muñoz Primary Care Unavailable ND Procedure Practitioner Unavailab Dnuia Light Surgeon Unavailsindhu e Phillip Ann Primary Care Physician [phone] DR FISHER Primary Care Unavailable [...] CURTIS Referring Unavailable MANOJ, CURTIS Referring Unavailable ASNTIAGOJENNA WEISS Attending Unavailable MANOJ, CURTIS Attending Unavailable SANTIAGOJENNA Attending Unavailable MANOJ, CURTIS Referring Unavailable MANOJ, CURTIS Referring Unavailable Allergies Allergy Classification Reported Allergen(s) Allergy Type Date of Onset Reaction(s) Facility (4 sources) Morphine; Translations: [morphine] Drug Allergy 9 [facility] (1 source) 77380,00; Translations: [16436,00] Propensity to adverse reactions (disorder) 0 [facility] (2 sources) Morphine; Translations: [morphine] Drug Allergy Feeling nervous (finding), Tachycardia (finding) General Surgery [facility] (1 source) No Known Medication Allergies; Translations: [No Known Medication Allergies] Propensity to adverse reactions (disorder) [facility] Repository (1 source) dulaglutide; Translations: [DULAGLUTIDE] Drug Allergy 3 [facility] Medications Current Medications Medication Drug Class(es) Dates Sig (Normalized) Sig (Original) 3 ML semaglutide 2.68 MG/ML Pen Injector [Ozempic] (1 source) Start: 03-16-2024 inject 2 mg by subcutaneous injection every week Ozempic 8 mg/3 mL (2 mg dose) subcutaneous solution 2 mg, SubCutaneous, qWeek, Refills(s) 0 Start Date: 03/16/24 Status: Ordered [id number] actuat albuterol 0.09 mg/actuat metered dose [...] dysrhythmias (2 sources) Palpitations; Translations: [Palpitations] Onset: 10-18-2024 Episodic Chronic obstructive pulmonary disease and bronchiectasis (4 [...] disease (1 source) Atherosclerotic heart disease of [place] coronary artery without angina pectoris; Translations: [ASHD CHEESH-NA CA W/O ANGINA PECTORIS] Onset: 08-11-2022 Chronic [...] 09-13-2022 Chronic Other aftercare (1 source) 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 anticoagulants; Translations: [FDC CURRNT USE ANTICOAGULANTS] Onset: 11-19-2022 Episodic Other aftercare (1 source) Other 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 inspector (current) drug therapy; Translations: [OTH EMBOSSER OPERATOR CURRENT DRUG THERAPY] Onset: 11-19-2022 Episodic Other aftercare (1 source) residential (current) use of oral hypoglycemic drugs; Translations: [EMBOSSER OPERATOR USE ORAL HYPOGLYCEMIC DX] Onset: 11-19-2022 [...] Test Name Value Interpretation Reference Range Facility Abstracton 11-10-2024 Abstract [id number] Diana Alvarez 1970 F Date Provider Department Center 11/10/2024 [facility] [place] [facility] Family History Problem Relation Age of Onset Breast cancer Mother Aneurysm Mother Stroke Mother Heart attack Father Coronary artery disease Father Stroke Sister Family Status - Relation Status Age at Mother Father Alive Sister Normal [facility] 37on 10-26-2024 37 *We will decrease your lasix to 20mg every other day. *Hold your isosorbide and continue to monitor your blood pressure. Call us in 2 weeks with your readings. *Your last labs showed potassium was low at 3.3. Will order for potassium supplement 10mEq daily. *Repeat labs in 1 month. Normal [facility] Office Visiton 10-26-2024 Follow-up visit [id number] Diana Alvarez 1970 F Date Provider Department Center 10/26/2024 JENNA ABREU Family History Problem Relation Age of Onset Breast cancer Mother Aneurysm Mother Stroke Mother Heart attack Father Coronary artery disease Father Stroke Sister Family Status - Relation Status Age at Mother Father Alive Sister Level of Service:45624 ND OFFICE/OUTPATIENT ESTABLISHED MOD MDM 30 MIN Reason for Visit and Comments: Atrial Fibrillation [80] Dizziness [093769] Hypertension [333577] Normal [facility] Orders Onlyon 10-26-2024 Orders Only [id number] Diana Alvarez 1970 F Date Provider Department Center 10/26/2024 MARVIN HEARN Family History Problem Relation Age of Onset Breast cancer Mother Aneurysm Mother Stroke Mother Heart attack Father Coronary artery disease Father Stroke Sister Family Status - Relation Status Age at Mother Father Alive Sister Normal [facility] Follow-Upon 09-12-2024 Follow-Up [id number] Diana Alvarez 1970 F Date Provider Department Center 09/12/2024 CURTIS VALDES TISH [facility] Family History Problem Relation Age of Onset Breast cancer Mother Aneurysm Mother Stroke Mother Heart attack Father Coronary artery disease Father Family Status - Relation Status Age at Mother Father Level of Service:48110 ND OFFICE/OUTPATIENT ESTABLISHED LOW MDM 20 MIN Normal [facility] Reminderson 04-20-2024 Reminders Reminders - From: Jacqueline Huerta LPN To: N - Clinical; Sent: 04/20/2024 11:34:18 EDT Show up: 03/20/2034 07:00:00 EDT Subject: colonoscopy recall Due Date/Time: 04/19/2034 07:00:00 EDT Reminder/Recall Patient due for screening colonoscopy 04/19/2034. Normal [facility] Office Visiton 04-13-2024 Follow-up visit [id number] Diana Alvarez 1970 F Date Provider Department Center 04/13/2024 JENNA ABREU TISH [facility] Family History Problem Relation Age of Onset Breast cancer Mother Aneurysm Mother Stroke Mother Heart attack Father Coronary artery disease Father Family Status - Relation Status Age at Mother Father Level of Service:17921 ND OFFICE/OUTPATIENT ESTABLISHED MOD MDM 30 MIN Reason for Visit and Comments: Pre-op Exam [320779] Atrial Fibrillation [80] Hypertension [271353] Normal [facility] Ambulatory Visit Summaryon 0 04-04-2024 Ambulatory Visit [...] Tachycardia) Problems (more content not included)... Normal [facility] 36on 01-12-2024 36 BP is elevated. I encourage diet and routine exercise which can help her BP. In the mean time, would like to start her on lisinopril 5mg daily with follow-up BMP in 2 weeks. Thanks! [facility] 36on 01-11-2024 36 Pt calling with bp's 156/83 133/78 147/80 146/78 157/72 148/80 120/80 [facility] 36on 12-23-2023 36 Regarding echo performed [...] few weeks with readings. She verbalized understanding. [facility] Telephoneon 12-23-2023 Telephone [id number] Diana Alvarez Brodie 1970 F Date Provider Department Center 12/23/2023 Abel8-MIGUEL FERMIN [facility] Family History Problem Relation Age of Onset Breast cancer Mother Aneurysm Mother Stroke Mother Heart attack Father Coronary artery disease Father Family Status - Relation Status Age at Mother Father [facility] CBC AUTO DIFFon 10-28-2022 BASO # 0.0 103/ul Normal 0.0-0.1 [facility] Comment on above: Performed By: #### L IPID, CMP, T4, TSH, FT3 #### [facility] [address] [address] [address] Mendel Herron Basophils/100 WBC (Bld) 0.2 % Normal 0.2-2.0 [facility] Comment on above: Performed By: #### L IPID, CMP, T4, TSH, FT3 #### [facility] [address] [address] [address] Mendel Herron EO # 0.0 103/ul Normal 0.0-0.7 [facility] Comment on above: Performed By: #### L IPID, CMP, T4, TSH, FT3 #### [facility] [address] [place] [address] Dr. Mendel Herron Eosinophils/100 WBC (Bld) 0.3 % Critically low 0.9-7.0 [facility] Comment on above: Performed By: #### L IPID, CMP, T4, TSH, FT3 #### [facility] [address] [place] [address] Dr. Mendel Herron Erythrocyte distribution width (RBC) [Ratio] 13.6 % Normal 11.0-15.0 [facility] Comment on above: Performed By: #### L IPID, CMP, T4, TSH, FT3 #### [facility] [address] [place] [address] Dr. Mendel Herron Hematocrit (Bld) [Volume fraction] 40.1 % Normal 36.0-48.0 [facility] Comment on above: Performed By: #### L IPID, CMP, T4, TSH, FT3 #### [facility] [address] [place] [address] Dr. Mendel Herron Hemoglobin (Bld) [Mass/Vol] 13.0 g/dL Normal 12.0-16.0 [facility] Comment on above: Performed By: #### L IPID, CMP, T4, TSH, FT3 #### [facility] [address] [place] [address] Dr. Mendel Herron IG # 0.06 10e3/ul Critically high 0.00-0.03 [facility] Comment on above: Performed By: #### L IPID, CMP, T4, TSH, FT3 #### [facility] [address] [place] [address] Dr. Mendel Herron IG % 0.5 % Normal 0.0-0.5 [facility] Comment on above: Performed By: #### L IPID, CMP, T4, TSH, FT3 #### [facility] [address] [place] [address] Dr. Mendel Herron LYMPH # 2.8 103/ul Normal 1.2-3.8 [facility] Comment on above: Performed By: #### L IPID, CMP, T4, TSH, FT3 #### [facility] [address] [place] [address] Dr. Mendel Herron Lymphocytes/100 WBC (Bld) 22.4 % Normal 20.5-60.0 [facility] Comment on above: Performed By: #### L IPID, CMP, T4, TSH, FT3 #### [facility] [address] [place] [address] Dr. Mendel Herron MANUAL DIFF REQ NO Normal [facility] Comment on above: Performed By: #### L IPID, CMP, T4, TSH, FT3 #### [facility] [address] [place] [address] Dr. Mendel Herron MCH (RBC) [Entitic mass] 30.8 pg Normal 26.7-34.0 [facility] Comment on above: Performed By: #### L IPID, CMP, T4, TSH, FT3 #### [facility] [address] [place] [address] Dr. Mendel Herron MCHC (RBC) [Mass/Vol] 32.4 g/dL Normal 29.9-35.2 [facility] Comment on above: Performed By: #### L IPID, CMP, T4, TSH, FT3 #### [facility] [address] [place] [address] Dr. Mendel Herron MCV (RBC) [Entitic vol] 95.0 fL Normal 81.0-99.0 [facility] Comment on above: Performed By: #### L IPID, CMP, T4, TSH, FT3 #### [facility] [address] [place] [address] Dr. Mendel Herron MONO # 0.9 103/ul Critically high 0.3-0.8 [facility] Comment on above: Performed By: #### L IPID, CMP, T4, TSH, FT3 #### [facility] [address] [place] [address] Dr. Mendel Herron Monocytes/100 WBC (Bld) 7.2 % Normal 1.7-12.0 [facility] Comment on above: Performed By: #### L IPID, CMP, T4, TSH, FT3 #### [facility] [address] [address] [address] Mendel Herron NEUT # 8.6 103/ul Critically high 1.4-6.5 [facility] Comment on above: Performed By: #### L IPID, CMP, T4, TSH, FT3 #### [facility] [address] [address] [address] Mendel Herron Neutrophils/100 WBC (Bld) 69.4 % Normal 43.0-75.0 [facility] Comment on above: Performed By: #### L IPID, CMP, T4, TSH, FT3 #### [facility] [address] [address] [address] Mendel Herron Platelet mean volume (Bld) [Entitic vol] 9.9 fL Normal 9.5-13.5 [facility] Comment on above: Performed By: #### L IPID, CMP, T4, TSH, FT3 #### [facility] [address] [address] [address] Mendel Herron PLT 297 103/ul Normal 150-450 [facility] Comment on above: Performed By: #### L IPID, CMP, T4, TSH, FT3 #### [facility] [address] [address] [address] Mendel Herron RBC 4.22 106/ul Normal 4.20-5.40 [facility] Comment on above: Performed By: #### L IPID, CMP, T4, TSH, FT3 #### [facility] [address] [address] [address] Mendel Herron WBC 12.4 103/ul Critically high 4.0-11.0 [facility] Comment on above: Performed By: #### L IPID, CMP, T4, TSH, FT3 #### [facility] [address] [place] [address] Dr. Mendel Herron CRPon 10-28-2022 CRP 1.3 mg/dL Critically high <=1.0 [facility] Comment on above: Performed By: #### L IPID, CMP, T4, TSH, FT3 #### [facility] [address] [address] [address] Mendel Herron PROF CHEM 8 (BAS METB)on Anion gap [Moles/Vol] 13.6 mmol/L Normal [facility] Comment on above: Performed By: #### L IPID, CMP, T4, TSH, FT3 #### [facility] [address] [address] [address] Mendel Herron Calcium [Mass/Vol] 9.3 mg/dL Normal 8.5-10.1 [facility] Comment on above: Performed By: #### L IPID, CMP, T4, TSH, FT3 #### [facility] [address] [place] [address] Dr. Mendel Herron Chloride [Moles/Vol] 102 mmol/L Normal 98-107 [facility] Comment on above: Performed By: #### L IPID, CMP, T4, TSH, FT3 #### [facility] [address] [address] [address] Mendel Herron CO2 [Moles/Vol] 30.7 mmol/L Normal 21.0-32.0 [facility] Comment on above: Performed By: #### L IPID, CMP, T4, TSH, FT3 #### [facility] [address] [place] [address] Dr. Mendel Herron Creatinine [Mass/Vol] 0.85 mg/dL Normal 0.55-1.02 [facility] Comment on above: Performed By: #### L IPID, CMP, T4, TSH, FT3 #### [facility] [address] [address] [address] Mendel Herron EGFR-AF AFGHAN >60 Normal >=60 [facility] Comment on above: Performed By: #### L IPID, CMP, T4, TSH, FT3 #### [facility] [address] [address] [address] Mendel Herron EGFR-NON AF AFGHAN >60 Normal >=60 [facility] Comment on above: Performed By: #### L IPID, CMP, T4, TSH, FT3 #### [facility] [address] [address] [address] Mendel Herron Glucose [Mass/Vol] 101 mg/dL Normal 74-[address] [facility] Comment on above: Performed By: #### L IPID, CMP, T4, TSH, FT3 #### [facility] [address] [address] [address] Mendel Herron Potassium [Moles/Vol] 3.3 mmol/L Critically low 3.5-5.1 [facility] Comment on above: Performed By: #### L IPID, CMP, T4, TSH, FT3 #### [facility] [address] [place] [address] Dr. Mendel Herron Sodium [Moles/Vol] 143 mmol/L Normal 136-[address] [facility] Comment on above: Performed By: #### L IPID, CMP, T4, TSH, FT3 #### [facility] [address] [place] [address] Dr. Mendel Herron Urea nitrogen [Mass/Vol] 12.0 mg/dL Normal 7.0-18.0 [facility] Comment on above: Performed By: #### L IPID, CMP, T4, TSH, FT3 #### [facility] [address] [place] [address] Dr. Mendel Herron Urea nitrogen/Creatinine [Mass ratio] 14.1 mg/mg Normal [facility] Comment on above: Performed By: #### L IPID, CMP, T4, TSH, FT3 #### [facility] [address] [place] [address] Dr. Mendel Herron URIC ACID SERUMon 10-28-2022 Urate [Mass/Vol] 7.8 mg/dL Critically high 2.6-6.0 [facility] Comment on above: Performed By: #### L IPID, CMP, T4, TSH, FT3 #### [facility] [address] [place] [address] Dr. Mendel Herron XR TOES RT MIN [...] GAIL PELLETIER Date: 2022-10-28 20:53 Normal [facility] Covid-19 PCR (CVDTB)on SARS-CoV-2 (COVID-19) RNA DEIRDRE+probe Ql (Unsp spec) Not detected Normal NOT DETECTED [facility] Comment on above: Result Comment: When [...] for this test is supported by the [employer] [place] of Health and Human Service's declaration that [...] L IPID, CMP, T4, TSH, FT3 #### [facility] [address] [place] [address] [id number] [address] Mendel Herron CBC AUTO DIFFon 09-09-2022 BASO # 0.1 103/ul Normal 0.0-0.1 [facility] Comment on above: Performed By: #### L IPID, CMP, T4, TSH, FT3 #### [facility] [address] [place] [address] Dr. Mendel Herron Basophils/100 WBC (Bld) 0.7 % Normal 0.2-2.0 [facility] Comment on above: Performed By: #### L IPID, CMP, T4, TSH, FT3 #### [facility] [address] [place] [address] Dr. Mendel Herron EO # 0.1 103/ul Normal 0.0-0.7 [facility] Comment on above: Performed By: #### L IPID, CMP, T4, TSH, FT3 #### [facility] [address] [place] [address] Dr. Mendel Herron Eosinophils/100 WBC (Bld) 0.7 % Critically low 0.9-7.0 [facility] Comment on above: Performed By: #### L IPID, CMP, T4, TSH, FT3 #### [facility] [address] [place] [address] Dr. Mendel Herron Erythrocyte distribution width (RBC) [Ratio] 13.1 % Normal 11.0-15.0 [facility] Comment on above: Performed By: #### L IPID, CMP, T4, TSH, FT3 #### [facility] [address] [place] [address] Dr. Mendel Herron Hematocrit (Bld) [Volume fraction] 43.7 % Normal 36.0-48.0 [facility] Comment on above: Performed By: #### L IPID, CMP, T4, TSH, FT3 #### [facility] [address] [place] [address] Dr. Mendel Herron Hemoglobin (Bld) [Mass/Vol] 14.4 g/dL Normal 12.0-16.0 [facility] Comment on above: Performed By: #### L IPID, CMP, T4, TSH, FT3 #### [facility] [address] [place] [address] Dr. Mendel Herron IG # 0.11 10e3/ul Critically high 0.00-0.03 [facility] Comment on above: Performed By: #### L IPID, CMP, T4, TSH, FT3 #### [facility] [address] [place] [address] Dr. Mendel Herron IG % 1.3 % Critically high 0.0-0.5 [facility] Comment on above: Performed By: #### L IPID, CMP, T4, TSH, FT3 #### [facility] [address] [place] [address] Dr. Mendel Herron LYMPH # 2.4 103/ul Normal 1.2-3.8 [facility] Comment on above: Performed By: #### L IPID, CMP, T4, TSH, FT3 #### [facility] [address] [place] [address] Dr. Mendel Herron Lymphocytes/100 WBC (Bld) 27.9 % Normal 20.5-60.0 [facility] Comment on above: Performed By: #### L IPID, CMP, T4, TSH, FT3 #### [facility] [address] [place] [address] Dr. Mendel Herron MANUAL DIFF REQ NO Normal [facility] Comment on above: Performed By: #### L IPID, CMP, T4, TSH, FT3 #### [facility] [address] [place] [address] Dr. Mendel Herron MCH (RBC) [Entitic mass] 31.0 pg Normal 26.7-34.0 [facility] Comment on above: Performed By: #### L IPID, CMP, T4, TSH, FT3 #### [facility] [address] [place] [address] Dr. Mendel Herron MCHC (RBC) [Mass/Vol] 33.0 g/dL Normal 29.9-35.2 [facility] Comment on above: Performed By: #### L IPID, CMP, T4, TSH, FT3 #### [facility] [address] [place] [address] Dr. Mendel Herron MCV (RBC) [Entitic vol] 94.0 fL Normal 81.0-99.0 [facility] Comment on above: Performed By: #### L IPID, CMP, T4, TSH, FT3 #### [facility] [address] [place] [address] Dr. Mendel Herron MONO # 0.5 103/ul Normal 0.3-0.8 [facility] Comment on above: Performed By: #### L IPID, CMP, T4, TSH, FT3 #### [facility] [address] [place] [address] Dr. Mendel Herron Monocytes/100 WBC (Bld) 6.0 % Normal 1.7-12.0 [facility] Comment on above: Performed By: #### L IPID, CMP, T4, TSH, FT3 #### [facility] [address] [place] [address] Dr. Mendel Herron NEUT # 5.4 103/ul Normal 1.4-6.5 [facility] Comment on above: Performed By: #### L IPID, CMP, T4, TSH, FT3 #### [facility] [address] [place] [address] Dr. Mendel Herron Neutrophils/100 WBC (Bld) 63.4 % Normal 43.0-75.0 [facility] Comment on above: Performed By: #### L IPID, CMP, T4, TSH, FT3 #### [facility] [address] [place] [address] Dr. Mendel Herron Platelet mean volume (Bld) [Entitic vol] 9.8 fL Normal 9.5-13.5 [facility] Comment on above: Performed By: #### L IPID, CMP, T4, TSH, FT3 #### [facility] [address] [place] [address] Dr. Mendel Herron PLT 398 103/ul Normal 150-450 [facility] Comment on above: Performed By: #### L IPID, CMP, T4, TSH, FT3 #### [facility] [address] [place] [address] Dr. Mendel Herron RBC 4.65 106/ul Normal 4.20-5.40 [facility] Comment on above: Performed By: #### L IPID, CMP, T4, TSH, FT3 #### [facility] [address] [address] [address] Mendel Herron WBC 8.6 103/ul Normal 4.0-11.0 [facility] Comment on above: Performed By: #### L IPID, CMP, T4, TSH, FT3 #### [facility] [address] [place] [address] Dr. Mendel Herron FREE T3on 09-09-2022 FREE T3 2.59 pg/mlL Normal 2.18-3.98 [facility] Comment on above: Performed By: #### L IPID, CMP, T4, TSH, FT3 #### [facility] [address] [place] [address] Dr. Mendel Herron GLYCOHEMOGLOBIN A1Con 2022 ADA RECOMMENDATION SEE BELOW Normal [facility] Comment on above: Result Comment: ADA RECOMMENDED LIMIT 4.0 - 6.0 ADA THERAPEUTIC TARGET < 7.0 ACTION SUGGESTED > 7.0 Performed By: #### A 1C #### [facility] [address] [place] [address] Dr. Mendel Herron Glucose [Mass/Vol] 120 mg/dL Normal [facility] Comment on above: Performed By: #### A 1C #### [facility] [address] [place] [address] Dr. Mendel Herron HbA1c (Bld) [Mass fraction] 5.8 % Normal 4.5-6.2 [facility] Comment on above: Performed By: #### A 1C #### [facility] [address] [place] [address] Dr. Mendel Herron LIPID PROFILEon 09-09-2022 CHOL-HDL RATIO NORM SEE BELOW Normal [facility] Comment on above: Result Comment: 3.3 - 4.4 LOW RISK 4.4 - 7.1 AVERAGE RISK 7.1 - 11.0 MODERATE RISK >11.0 HIGH RISK Performed By: #### L IPID, CMP, T4, TSH, FT3 #### [facility] [address] [place] [address] Dr. Mendel Herron Cholesterol [Mass/Vol] 308 mg/dL Critically high <=200 [facility] Comment on above: Performed By: #### L IPID, CMP, T4, TSH, FT3 #### [facility] [address] [address] [address] Mendel Herron Cholesterol in HDL [Mass/Vol] 46 mg/dL Normal 40-60 [facility] Comment on above: Performed By: #### L IPID, CMP, T4, TSH, FT3 #### [facility] [address] [address] [address] Mendel Herron Cholesterol in LDL [Mass/Vol] 212.6 mg/dL Normal [facility] Comment on above: Performed By: #### L IPID, CMP, T4, TSH, FT3 #### [facility] [address] [address] [address] Mendel Herron Cholesterol.total/Ch olesterol in HDL [Mass ratio] 6.7 {ratio} Normal [facility] Comment on above: Performed By: #### L IPID, CMP, T4, TSH, FT3 #### [facility] [address] [address] [address] Mendel Herron HDL NORMAL > or = 60 mg/dl - LOW CARDIOVASCULAR RISK <40 mg/dl - HIGH CARDIOVASCULAR RISK Normal [facility] Comment on above: Performed By: #### L IPID, CMP, T4, TSH, FT3 #### [facility] [address] [address] [address] Mendel Herron LDL CALC NORMAL SEE BELOW Normal [facility] Comment on above: Result Comment: <100 mg/dl OPTIMAL 100 - 129 mg/dl NEAR OR ABOVE OPTIMAL 130 - 159 mg/dl BORDERLINE HIGH 160 - 189 mg/dl HIGH >190 mg/dl VERY HIGH Performed By: #### L IPID, CMP, T4, TSH, FT3 #### [facility] [address] [address] [address] Mendel Herron Triglyceride [Mass/Vol] 247 mg/dL Critically high <=150 [facility] Comment on above: Performed By: #### L IPID, CMP, T4, TSH, FT3 #### [facility] [address] [address] [address] Mendel Herron VLDL CALC 49.4 mg/dL Normal [facility] Comment on above: Performed By: #### L IPID, CMP, T4, TSH, FT3 #### [facility] [address] [place] [address] Dr. Mendel Herron PROF 14(COMP METB)on 023 Albumin [Mass/Vol] 4.0 g/dL Normal 3.4-5.0 [facility] Comment on above: Performed By: #### L IPID, CMP, T4, TSH, FT3 #### [facility] [address] [place] [address] Dr. Mendel Herron Albumin/Globulin [Mass ratio] 0.9 {ratio} Normal [facility] Comment on above: Performed By: #### L IPID, CMP, T4, TSH, FT3 #### [facility] [address] [place] [address] Dr. Mendel Herron ALP [Catalytic activity/Vol] 115 U/L Normal 46-116 [facility] Comment on above: Performed By: #### L IPID, CMP, T4, TSH, FT3 #### [facility] [address] [place] [address] Dr. Mendel Herron ALT [Catalytic activity/Vol] 30 U/L Normal 14-59 [facility] Comment on above: Performed By: #### L IPID, CMP, T4, TSH, FT3 #### [facility] [address] [place] [address] Dr. Mendel Herron Anion gap [Moles/Vol] 12.7 mmol/L Normal [facility] Comment on above: Performed By: #### L IPID, CMP, T4, TSH, FT3 #### [facility] [address] [place] [address] Dr. Mendel Herron AST [Catalytic activity/Vol] 18 U/L Normal 15-37 [facility] Comment on above: Performed By: #### L IPID, CMP, T4, TSH, FT3 #### [facility] [address] [address] [address] Mendel Herron Bilirubin [Mass/Vol] 0.7 mg/dL Normal 0.2-1.0 [facility] Comment on above: Performed By: #### L IPID, CMP, T4, TSH, FT3 #### [facility] [address] [place] [address] Dr. Mendel Herron Calcium [Mass/Vol] 9.7 mg/dL Normal 8.5-10.1 [facility] Comment on above: Performed By: #### L IPID, CMP, T4, TSH, FT3 #### [facility] [address] [place] [address] Dr. Mendel Herron Chloride [Moles/Vol] 103 mmol/L Normal 98-107 [facility] Comment on above: Performed By: #### L IPID, CMP, T4, TSH, FT3 #### [facility] [address] [place] [address] Dr. Mendel Herron CO2 [Moles/Vol] 26.5 mmol/L Normal 21.0-32.0 [facility] Comment on above: Performed By: #### L IPID, CMP, T4, TSH, FT3 #### [facility] [address] [place] [address] Dr. Mendel Herron Creatinine [Mass/Vol] 0.83 mg/dL Normal 0.55-1.02 [facility] Comment on above: Performed By: #### L IPID, CMP, T4, TSH, FT3 #### [facility] [address] [place] [address] Dr. Mendel Herron EGFR-AF AFGHAN >60 Normal >=60 [facility] Comment on above: Performed By: #### L IPID, CMP, T4, TSH, FT3 #### [facility] [address] [place] [address] Dr. Mendel Herron EGFR-NON AF AFGHAN >60 Normal >=60 [facility] Comment on above: Performed By: #### L IPID, CMP, T4, TSH, FT3 #### [facility] [address] [place] [address] Dr. Mendel Herron Globulin (S) [Mass/Vol] 4.4 g/dL Normal [facility] Comment on above: Performed By: #### L IPID, CMP, T4, TSH, FT3 #### [facility] [address] [address] [address] Mendel Herron Glucose [Mass/Vol] 97 mg/dL Normal 74-106 [facility] Comment on above: Performed By: #### L IPID, CMP, T4, TSH, FT3 #### [facility] [address] [address] [address] Mendel Herron Potassium [Moles/Vol] 4.2 mmol/L Normal 3.5-5.1 [facility] Comment on above: Performed By: #### L IPID, CMP, T4, TSH, FT3 #### [facility] [address] [address] [address] Mendel Herron Protein [Mass/Vol] 8.4 g/dL Critically high 6.4-8.2 [facility] Comment on above: Performed By: #### L IPID, CMP, T4, TSH, FT3 #### [facility] [address] [place] [address] Dr. Mendel Herron Sodium [Moles/Vol] 138 mmol/L Normal 136-[address] [facility] Comment on above: Performed By: #### L IPID, CMP, T4, TSH, FT3 #### [facility] [address] [address] [address] Mendel Herron Urea nitrogen [Mass/Vol] 12.0 mg/dL Normal 7.0-18.0 [facility] Comment on above: Performed By: #### L IPID, CMP, T4, TSH, FT3 #### [facility] [address] [address] [address] Mendel Herron Urea nitrogen/Creatinine [Mass ratio] 14.5 mg/mg Normal [facility] Comment on above: Performed By: #### L IPID, CMP, T4, TSH, FT3 #### [facility] [address] [place] [address] Dr. Mendel Herron T4on 09-09-2022 T4 [Mass/Vol] 8.80 ug/dL Normal 4.80-13.90 [facility] Comment on above: Performed By: #### L IPID, CMP, T4, TSH, FT3 #### [facility] [address] [place] [address] Dr. Mendel Herron TSHon 09-09-2022 TSH 0.898 uIU/mL Normal 0.358-3.740 [facility] Comment on above: Performed By: #### L IPID, CMP, T4, TSH, FT3 #### [facility] [address] [place] [address] Dr. Mendel Herron VITAMIN D 25 OHon 09-09-2022 VIT D 25-OH 24.0 ng/mL Normal [facility] Comment on above: Performed By: #### L IPID, CMP, T4, TSH, FT3 #### [facility] [address] [place] [address] Dr. Mendel eHrron VIT D RANGES SEE BELOW Normal [facility] Comment on above: Result Comment: <20 ng/mL Vit D deficient 20 - <30 ng/mL Vit D insufficient 30 - 100 ng/mL Vit D sufficient >100 ng/mL Potential Toxicity Performed By: #### L IPID, CMP, T4, TSH, FT3 #### [facility] [address] [place] [address] Dr. Mendel Herron NM HEPATOBILIARY SCAN W [...] VIVI GARY Date: 2022-08-20 16:07 Normal [facility] US SINGLE QUAD RT UPPERon US [...] JEAN LOPES Date: 2022-08-11 15:50 Normal [facility] CARDIAC SUBHA ADMITon 023 CK [Catalytic activity/Vol] 30 U/L Normal 26-192 [facility] Comment on above: Performed By: #### L IPID, CMP, T4, TSH, FT3 #### [facility] [address] [place], [place] [address] Dr. Mendel Herron CK.MB [Mass/Vol] 1.02 ng/mL Normal <=3.60 [facility] Comment on above: Performed By: #### L IPID, CMP, T4, TSH, FT3 #### [facility] [address] [place], [place] [address] Dr. Mendel Herron HSTROP 32.8 pg/mL Normal 4.0-51.3 [facility] Comment on above: Result Comment: CUT- OFF POINTS HAVE BEEN ESTABLISHED BASED ON THE FOURTH UNIVERSAL DEFINITIONS OF MYOCARDIAL INFARCTION. THE UPPER REFERENCE LIMIT (URL) OF TROPONIN, DEFINED THE 99TH PERCENTILE OF cTnI DISTRIBUTION IN A REFERENCE POPULATION, HAS BEEN CONFIRMED THE DECISION THRESHOLD FOR [place] DIAGNOSIS. Performed By: #### L IPID, CMP, T4, TSH, FT3 #### [facility] [address] [place] [address] Dr. Mendel Herron SONYA 23 ng/mL Normal 9-82 [facility] Comment on above: Performed By: #### L IPID, CMP, T4, TSH, FT3 #### [facility] [address] [place] [address] Dr. Mendel Herron CBC AUTO DIFFon 08-09-2022 BASO # 0.0 103/ul Normal 0.0-0.1 [facility] Comment on above: Performed By: #### L IPID, CMP, T4, TSH, FT3 #### [facility] [address] [place] [address] Dr. Mendel Herron Basophils/100 WBC (Bld) 0.3 % Normal 0.2-2.0 [facility] Comment on above: Performed By: #### L IPID, CMP, T4, TSH, FT3 #### [facility] [address] [place] [address] Dr. Mendel Herron EO # 0.0 103/ul Normal 0.0-0.7 [facility] Comment on above: Performed By: #### L IPID, CMP, T4, TSH, FT3 #### [facility] [address] [place] [address] Dr. Mendel Herron Eosinophils/100 WBC (Bld) 0.3 % Critically low 0.9-7.0 [facility] Comment on above: Performed By: #### L IPID, CMP, T4, TSH, FT3 #### [facility] [address] [place] [address] Dr. Mendel Herron Erythrocyte distribution width (RBC) [Ratio] 13.1 % Normal 11.0-15.0 [facility] Comment on above: Performed By: #### L IPID, CMP, T4, TSH, FT3 #### [facility] [address] [place] [address] Dr. Mendel Herron Hematocrit (Bld) [Volume fraction] 42.7 % Normal 36.0-48.0 [facility] Comment on above: Performed By: #### L IPID, CMP, T4, TSH, FT3 #### [facility] [address] [place] [address] Dr. Mendel Herron Hemoglobin (Bld) [Mass/Vol] 15.4 g/dL Normal 12.0-16.0 [facility] Comment on above: Performed By: #### L IPID, CMP, T4, TSH, FT3 #### [facility] [address] [place] [address] Dr. Mendel Herron IG # 0.05 10e3/ul Critically high 0.00-0.03 [facility] Comment on above: Performed By: #### L IPID, CMP, T4, TSH, FT3 #### [facility] [address] [place] [address] Dr. Mendel Herron IG % 0.4 % Normal 0.0-0.5 [facility] Comment on above: Performed By: #### L IPID, CMP, T4, TSH, FT3 #### [facility] [address] [place] [address] Dr. Mendel Herron LYMPH # 2.5 103/ul Normal 1.2-3.8 [facility] Comment on above: Performed By: #### L IPID, CMP, T4, TSH, FT3 #### [facility] [address] [place] [address] Dr. Mendel Herron Lymphocytes/100 WBC (Bld) 21.2 % Normal 20.5-60.0 [facility] Comment on above: Performed By: #### L IPID, CMP, T4, TSH, FT3 #### [facility] [address] [place] [address] Dr. Mendel Herron MANUAL DIFF REQ NO Normal [facility] Comment on above: Performed By: #### L IPID, CMP, T4, TSH, FT3 #### [facility] [address] [place] [address] Dr. Mendel Herron MCH (RBC) [Entitic mass] 31.7 pg Normal 26.7-34.0 [facility] Comment on above: Performed By: #### L IPID, CMP, T4, TSH, FT3 #### [facility] [address] [place] [address] Dr. Mendel Herron MCHC (RBC) [Mass/Vol] 36.1 g/dL Critically high 29.9-35.2 [facility] Comment on above: Performed By: #### L IPID, CMP, T4, TSH, FT3 #### [facility] [address] [place] [address] Dr. Mendel Herron MCV (RBC) [Entitic vol] 87.9 fL Normal 81.0-99.0 [facility] Comment on above: Performed By: #### L IPID, CMP, T4, TSH, FT3 #### [facility] [address] [place] [address] Dr. Mendel Herron MONO # 0.7 103/ul Normal 0.3-0.8 [facility] Comment on above: Performed By: #### L IPID, CMP, T4, TSH, FT3 #### [facility] [address] [place] [address] Dr. Mendel Herron Monocytes/100 WBC (Bld) 6.3 % Normal 1.7-12.0 [facility] Comment on above: Performed By: #### L IPID, CMP, T4, TSH, FT3 #### [facility] [address] [place] [address] Dr. Mendel Herron NEUT # 8.4 103/ul Critically high 1.4-6.5 [facility] Comment on above: Performed By: #### L IPID, CMP, T4, TSH, FT3 #### [facility] [address] [place] [address] Dr. Mendel Herron Neutrophils/100 WBC (Bld) 71.5 % Normal 43.0-75.0 [facility] Comment on above: Performed By: #### L IPID, CMP, T4, TSH, FT3 #### [facility] [address] [place] [address] Dr. Mendel Herron Platelet mean volume (Bld) [Entitic vol] 9.8 fL Normal 9.5-13.5 [facility] Comment on above: Performed By: #### L IPID, CMP, T4, TSH, FT3 #### [facility] [address] [place] [address] Dr. Mendel Herron PLT 374 103/ul Normal 150-450 [facility] Comment on above: Performed By: #### L IPID, CMP, T4, TSH, FT3 #### [facility] [address] [place] [address] Dr. Mendel Herron RBC 4.86 106/ul Normal 4.20-5.40 [facility] Comment on above: Performed By: #### L IPID, CMP, T4, TSH, FT3 #### [facility] [address] [place] [address] Dr. Mendel Herron WBC 11.7 103/ul Critically high 4.0-11.0 [facility] Comment on above: Performed By: #### L IPID, CMP, T4, TSH, FT3 #### [facility] [address] [place] [address] HEAD WO CONon [...] HELLEN VELAZQUEZ Date: 2022-08-09 15:23 Normal [facility] SARS-CoV-2 (COVID-19) RNA DEIRDRE+probe Ql (Unsp spec) Not detected Normal NOT DETECTED [facility] Comment on above: Result Comment: When [...] for this test is supported by the [place] of Health and Human Service's declaration that [...] L IPID, CMP, T4, TSH, FT3 #### [facility] [address] [place] [address] Dr. Mendel Herron ER URINE PROFILEon 3 Bilirubin Ql (U) Negative Normal NEGATIVE [facility] Comment on above: Performed By: #### L IPID, CMP, T4, TSH, FT3 #### [facility] [address] [place] [address] Dr. Mendel Herron Clarity (U) CLEAR Normal CLEAR [facility] Comment on above: Performed By: #### L IPID, CMP, T4, TSH, FT3 #### [facility] [address] [place] [address] Dr. Mendel Herron Color (U) LT. YELLOW Normal YELLOW [facility] Comment on above: Performed By: #### L IPID, CMP, T4, TSH, FT3 #### [facility] [address] [address] [address] Mendel DECKER A micrscopic examination will be performed if indicated. Normal [facility] Comment on above: Performed By: #### L IPID, CMP, T4, TSH, FT3 #### [facility] [address] [address] [address] Mendel Herron Glucose Ql (U) Negative Normal NEGATIVE [facility] Comment on above: Performed By: #### L IPID, CMP, T4, TSH, FT3 #### [facility] [address] [address] [address] Mendel Herron Hemoglobin Ql (U) TRACE-INTACT Abnormal NEGATIVE [facility] Comment on above: Performed By: #### L IPID, CMP, T4, TSH, FT3 #### [facility] [address] [place] [address] Dr. Mendel Herron Ketones Ql (U) Negative Normal NEGATIVE [facility] Comment on above: Performed By: #### L IPID, CMP, T4, TSH, FT3 #### [facility] [address] [address] [address] Mendel Herron LEUKOCYTES Negative Normal NEGATIVE [facility] Comment on above: Performed By: #### L IPID, CMP, T4, TSH, FT3 #### [facility] [address] [address] [address] Mendel Herron Nitrite Ql (U) Negative Normal NEGATIVE [facility] Comment on above: Performed By: #### L IPID, CMP, T4, TSH, FT3 #### [facility] [address] [address] [address] Mendel Herron pH (U) 5.0 [pH] Normal 5-9 [facility] Comment on above: Performed By: #### L IPID, CMP, T4, TSH, FT3 #### [facility] [address] [address] [address] Mendel Herron SPEC GRAVITY 1.015 Normal 1.005-<=1.025 [facility] Comment on above: Performed By: #### L IPID, CMP, T4, TSH, FT3 #### [facility] [address] [place] [address] Dr. Mendel Herron UA PROTEIN Negative Normal NEGATIVE/ TRACE [facility] Comment on above: Performed By: #### L IPID, CMP, T4, TSH, FT3 #### [facility] [address] [place] [address] Dr. Mendel Herron UR MICRO IND INDICATED Normal [facility] Comment on above: Performed By: #### L IPID, CMP, T4, TSH, FT3 #### [facility] [address] [place] [address] Dr. Mendel Herron Urobilinogen Qn (U) 0.2 {James'U}/dL Normal 0.2 - 1. 0 [facility] Comment on above: Performed By: #### L IPID, CMP, T4, TSH, FT3 #### [facility] [address] [place] [address] Dr. Mendel Herron LIPASEon 08-09-2022 Lipase [Catalytic activity/Vol] 114.0 U/L Normal 73.0-393.0 [facility] Comment on above: Performed By: #### L IPA, BMP, CMADM #### [facility] [address] [place] [address] Dr. Mendel Herron PROF CHEM 8 (BAS METB)on Anion gap [Moles/Vol] 18.9 mmol/L Normal [facility] Comment on above: Performed By: #### L IPA, BMP, CMADM #### [facility] [address] [place] [address] Dr. Mendel Herron Calcium [Mass/Vol] 9.4 mg/dL Normal 8.5-10.[address] [facility] Comment on above: Performed By: #### L IPA, BMP, CMADM #### [facility] [address] [place] [address] Dr. Mendel Herron Chloride [Moles/Vol] 97 mmol/L Critically low 98-107 [facility] Comment on above: Performed By: #### L IPA, BMP, CMADM #### [facility] [address] [address] [address] Mendel Herron CO2 [Moles/Vol] 26.0 mmol/L Normal 21.0-32.0 [facility] Comment on above: Performed By: #### L IPA, BMP, CMADM #### [facility] [address] [address] [address] Mendel Herron Creatinine [Mass/Vol] 0.85 mg/dL Normal 0.55-1.02 [facility] Comment on above: Performed By: #### L IPA, BMP, CMADM #### [facility] [address] [address] [address] Mendel Herron EGFR-AF AFGHAN >60 Normal >=60 [facility] Comment on above: Performed By: #### L IPA, BMP, CMADM #### [facility] [address] [address] [address] Mendel Herron EGFR-NON AF AFGHAN >60 Normal >=60 [facility] Comment on above: Performed By: #### L IPA, BMP, CMADM #### [facility] [address] [address] [address] Mendel Herron Glucose [Mass/Vol] 120 mg/dL Critically high 74-106 [facility] Comment on above: Performed By: #### L IPA, BMP, CMADM #### [facility] [address] [address] [address] Mendel Herron Potassium [Moles/Vol] 3.9 mmol/L Normal 3.5-5.1 [facility] Comment on above: Performed By: #### L IPA, BMP, CMADM #### [facility] [address] [address] [address] Mendel Herron Sodium [Moles/Vol] 138 mmol/L Normal 136-145 [facility] Comment on above: Performed By: #### L IPA, BMP, CMADM #### [facility] [address] [address] [address] Mendel Herron Urea nitrogen [Mass/Vol] 17.0 mg/dL Normal 7.0-18.0 [facility] Comment on above: Performed By: #### L IPA, BMP, CMADM #### [facility] [address] [address] [address] Mendel Herron Urea nitrogen/Creatinine [Mass ratio] 20.0 mg/mg Normal [facility] Comment on above: Performed By: #### L IPA, BMP, CMADM #### [facility] [address] [place] [address] Dr. Mendel Herron TROPONIN, HIGH SENSITIVITYon 08-09-2022 HSTROP 32.5 pg/mL Normal 4.0-51.3 [facility] Comment on above: Result Comment: CUT- OFF POINTS HAVE BEEN ESTABLISHED BASED ON THE FOURTH UNIVERSAL DEFINITIONS OF MYOCARDIAL INFARCTION. THE UPPER REFERENCE LIMIT (URL) OF TROPONIN, DEFINED THE 99TH PERCENTILE OF cTnI DISTRIBUTION IN A REFERENCE POPULATION, HAS BEEN CONFIRMED THE DECISION THRESHOLD FOR [place] DIAGNOSIS. Performed By: #### L IPID, CMP, T4, TSH, FT3 #### [facility] [address] [place] [address] Dr. Mendel Herron URINE MICROSCOPIC ONLYon BACTERIA NONE SEEN Normal NONE SEEN [facility] Comment on above: Performed By: #### L IPID, CMP, T4, TSH, FT3 #### [facility] [address] [place] [address] Dr. Mendel Herron Bacteria identified Cx Nom (U) NOT INDICATED Normal [facility] Comment on above: Performed By: #### L IPID, CMP, T4, TSH, FT3 #### [facility] [address] [place] [address] Dr. Mendel Herron CAST NONE SEEN Normal NONE SEEN [facility] Comment on above: Performed By: #### L IPID, CMP, T4, TSH, FT3 #### [facility] [address] [place] [address] Dr. Mendel Herron Crystals LM Nom (Urine sed) NONE SEEN Normal NONE SEEN [facility] Comment on above: Performed By: #### L IPID, CMP, T4, TSH, FT3 #### [facility] [address] [place] [address] Dr. Mendel Herron Epithelial cells LM Ql (Urine sed) NONE SEEN Normal NONE SEEN /RARE [facility] Comment on above: Performed By: #### L IPID, CMP, T4, TSH, FT3 #### [facility] [address] [address] [address] Mendel Herron MUCOUS NONE SEEN Normal NONE SEEN [facility] Comment on above: Performed By: #### L IPID, CMP, T4, TSH, FT3 #### [facility] [address] [address] [address] Mendel Herron RBC 0-2 Normal 0-2 [facility] Comment on above: Performed By: #### L IPID, CMP, T4, TSH, FT3 #### [facility] [address] [address] [address] Mendel Herron WBC NONE SEEN Normal NONE SEEN [facility] Comment on above: Performed By: #### L IPID, CMP, T4, TSH, FT3 #### [facility] [address] [place] [address] Dr. Mendel Herron XR CHEST 1 Von [...] MARY DIETZ Date: 2022-08-09 15:18 Normal [facility] H PYLORI ANTIBODY IGGon 07-20 H. PYLORI IGG ABS 0.11 Index Value Normal 0.00-0.79 [facility] Comment on above: Result Comment: Nega tive <0.80 Equivocal 0.80 - 0.89 Positive >0.89 Performed By: #### L IPID, CMP, T4, TSH, FT3 #### [facility] [address] [address] [address] Mendel Herron AMYLASEon 08-06-2022 Amylase [Catalytic activity/Vol] 57 U/L Normal 25-115 [facility] Comment on above: Performed By: #### L IPID, CMP, T4, TSH, FT3 #### [facility] [address] [address] [address] Mendel Herron CBC AUTO DIFFon 08-06-2022 BASO # 0.1 103/ul Normal 0.0-0.1 [facility] Comment on above: Performed By: #### L IPID, CMP, T4, TSH, FT3 #### [facility] [address] [place] [address] Dr. Mendel Herron Basophils/100 WBC (Bld) 0.7 % Normal 0.2-2.0 [facility] Comment on above: Performed By: #### L IPID, CMP, T4, TSH, FT3 #### [facility] [address] [place] [address] Dr. Mendel Herron EO # 0.1 103/ul Normal 0.0-0.7 [facility] Comment on above: Performed By: #### L IPID, CMP, T4, TSH, FT3 #### [facility] [address] [place] [address] Dr. Mendel Herron Eosinophils/100 WBC (Bld) 0.5 % Critically low 0.9-7.0 [facility] Comment on above: Performed By: #### L IPID, CMP, T4, TSH, FT3 #### [facility] [address] [place] [address] Dr. Mendel Herron Erythrocyte distribution width (RBC) [Ratio] 13.7 % Normal 11.0-15.0 [facility] Comment on above: Performed By: #### L IPID, CMP, T4, TSH, FT3 #### [facility] [address] [place] [address] Dr. Mendel Herron Hematocrit (Bld) [Volume fraction] 46.2 % Normal 36.0-48.0 [facility] Comment on above: Performed By: #### L IPID, CMP, T4, TSH, FT3 #### [facility] [address] [place] [address] Dr. Mendel Herron Hemoglobin (Bld) [Mass/Vol] 15.1 g/dL Normal 12.0-16.0 [facility] Comment on above: Performed By: #### L IPID, CMP, T4, TSH, FT3 #### [facility] [address] [place] [address] Dr. Mendel Herron IG # 0.06 10e3/ul Critically high 0.00-0.03 [facility] Comment on above: Performed By: #### L IPID, CMP, T4, TSH, FT3 #### [facility] [address] [place] [address] Dr. Mendel Herron IG % 0.6 % Critically high 0.0-0.5 [facility] Comment on above: Performed By: #### L IPID, CMP, T4, TSH, FT3 #### [facility] [address] [place] [address] Dr. Mendel Herron LYMPH # 2.5 103/ul Normal 1.2-3.8 [facility] Comment on above: Performed By: #### L IPID, CMP, T4, TSH, FT3 #### [facility] [address] [place] [address] Dr. Mendel Herron Lymphocytes/100 WBC (Bld) 23.4 % Normal 20.5-60.0 [facility] Comment on above: Performed By: #### L IPID, CMP, T4, TSH, FT3 #### [facility] [address] [place] [address] Dr. Mendel Herron MANUAL DIFF REQ NO Normal [facility] Comment on above: Performed By: #### L IPID, CMP, T4, TSH, FT3 #### [facility] [address] [place] [address] Dr. Mendel Herron MCH (RBC) [Entitic mass] 31.4 pg Normal 26.7-34.0 [facility] Comment on above: Performed By: #### L IPID, CMP, T4, TSH, FT3 #### [facility] [address] [place] [address] Dr. Mendel Herron MCHC (RBC) [Mass/Vol] 32.7 g/dL Normal 29.9-35.2 [facility] Comment on above: Performed By: #### L IPID, CMP, T4, TSH, FT3 #### [facility] [address] [place] [address] Dr. Mendel Herron MCV (RBC) [Entitic vol] 96.0 fL Normal 81.0-99.0 [facility] Comment on above: Performed By: #### L IPID, CMP, T4, TSH, FT3 #### [facility] [address] [place] [address] Dr. Mendel Herron MONO # 0.6 103/ul Normal 0.3-0.8 [facility] Comment on above: Performed By: #### L IPID, CMP, T4, TSH, FT3 #### [facility] [address] [place] [address] Dr. Mendel Herron Monocytes/100 WBC (Bld) 6.0 % Normal 1.7-12.0 [facility] Comment on above: Performed By: #### L IPID, CMP, T4, TSH, FT3 #### [facility] [address] [place] [address] Dr. Mendel Herron NEUT # 7.4 103/ul Critically high 1.4-6.5 [facility] Comment on above: Performed By: #### L IPID, CMP, T4, TSH, FT3 #### [facility] [address] [place] [address] Dr. Mendel Herron Neutrophils/100 WBC (Bld) 68.8 % Normal 43.0-75.0 [facility] Comment on above: Performed By: #### L IPID, CMP, T4, TSH, FT3 #### [facility] [address] [place] [address] Dr. Mendel Herron Platelet mean volume (Bld) [Entitic vol] 9.7 fL Normal 9.5-13.5 [facility] Comment on above: Performed By: #### L IPID, CMP, T4, TSH, FT3 #### [facility] [address] [place] [address] Dr. Mendel Herron PLT 331 103/ul Normal 150-450 [facility] Comment on above: Performed By: #### L IPID, CMP, T4, TSH, FT3 #### [facility] [address] [place] [address] Dr. Mendel Herron RBC 4.81 106/ul Normal 4.20-5.40 [facility] Comment on above: Performed By: #### L IPID, CMP, T4, TSH, FT3 #### [facility] [address] [address] [address] Mendel Herron WBC 10.7 103/ul Normal 4.0-11.0 [facility] Comment on above: Performed By: #### L IPID, CMP, T4, TSH, FT3 #### [facility] [address] [place] [address] HEAD WO CONon 08-06-2022 CT [...] JEAN LOPES Date: 2022-08-06 08:39 Normal [facility] LIPASEon 08-06-2022 Lipase [Catalytic activity/Vol] 125.0 U/L Normal 73.0-393.0 [facility] Comment on above: Performed By: #### L IPID, CMP, T4, TSH, FT3 #### [facility] [address] [place] [address] Dr. Mendel Herron PROF 14(COMP METB)on 023 Albumin [Mass/Vol] 3.7 g/dL Normal 3.4-5.0 [facility] Comment on above: Performed By: #### L IPID, CMP, T4, TSH, FT3 #### [facility] [address] [place] [address] Dr. Mendel Herron Albumin/Globulin [Mass ratio] 0.9 {ratio} Normal [facility] Comment on above: Performed By: #### L IPID, CMP, T4, TSH, FT3 #### [facility] [address] [place] [address] Dr. Mendel Herron ALP [Catalytic activity/Vol] 110 U/L Normal 46-116 [facility] Comment on above: Performed By: #### L IPID, CMP, T4, TSH, FT3 #### [facility] [address] [place] [address] Dr. Mendel Herron ALT [Catalytic activity/Vol] 25 U/L Normal 14-59 [facility] Comment on above: Performed By: #### L IPID, CMP, T4, TSH, FT3 #### [facility] [address] [place] [address] Dr. Mendel Herron Anion gap [Moles/Vol] 14.0 mmol/L Normal [facility] Comment on above: Performed By: #### L IPID, CMP, T4, TSH, FT3 #### [facility] [address] [place] [address] Dr. Mendel Herron AST [Catalytic activity/Vol] 16 U/L Normal 15-37 [facility] Comment on above: Performed By: #### L IPID, CMP, T4, TSH, FT3 #### [facility] [address] [place] [address] Dr. Mendel Herron Bilirubin [Mass/Vol] 0.6 mg/dL Normal 0.2-1.0 [facility] Comment on above: Performed By: #### L IPID, CMP, T4, TSH, FT3 #### [facility] [address] [place] [address] Dr. Mendel Herron Calcium [Mass/Vol] 9.3 mg/dL Normal 8.5-10.[address] [facility] Comment on above: Performed By: #### L IPID, CMP, T4, TSH, FT3 #### [facility] [address] [address] [address] Mendel Herron Chloride [Moles/Vol] 103 mmol/L Normal 98-107 [facility] Comment on above: Performed By: #### L IPID, CMP, T4, TSH, FT3 #### [facility] [address] [address] [address] Mendel Herron CO2 [Moles/Vol] 27.3 mmol/L Normal 21.0-32.0 [facility] Comment on above: Performed By: #### L IPID, CMP, T4, TSH, FT3 #### [facility] [address] [place] [address] Dr. Mendel Herron Creatinine [Mass/Vol] 0.71 mg/dL Normal 0.55-1.02 [facility] Comment on above: Performed By: #### L IPID, CMP, T4, TSH, FT3 #### [facility] [address] [place] [address] Dr. Mendel Herron EGFR-AF AFGHAN >60 Normal >=60 [facility] Comment on above: Performed By: #### L IPID, CMP, T4, TSH, FT3 #### [facility] [address] [place] [address] Dr. Mendel Herron EGFR-NON AF AFGHAN >60 Normal >=60 [facility] Comment on above: Performed By: #### L IPID, CMP, T4, TSH, FT3 #### [facility] [address] [place] [address] Dr. Mendel Herron Globulin (S) [Mass/Vol] 4.3 g/dL Normal [facility] Comment on above: Performed By: #### L IPID, CMP, T4, TSH, FT3 #### [facility] [address] [place] [address] Dr. Mendel Herron Glucose [Mass/Vol] 102 mg/dL Normal 74-106 [facility] Comment on above: Performed By: #### L IPID, CMP, T4, TSH, FT3 #### [facility] [address] [address] [address] Mendel Herron Potassium [Moles/Vol] 4.3 mmol/L Normal 3.5-5.1 [facility] Comment on above: Performed By: #### L IPID, CMP, T4, TSH, FT3 #### [facility] [address] [place] [address] Dr. Mendel Herron Protein [Mass/Vol] 8.0 g/dL Normal 6.4-8.[address] [facility] Comment on above: Performed By: #### L IPID, CMP, T4, TSH, FT3 #### [facility] [address] [place] [address] Dr. Mendel Herron Sodium [Moles/Vol] 140 mmol/L Normal 136-[address] [facility] Comment on above: Performed By: #### L IPID, CMP, T4, TSH, FT3 #### [facility] [address] [place] [address] Dr. Mendel Herron Urea nitrogen [Mass/Vol] 19.0 mg/dL Critically high 7.0-18.0 [facility] Comment on above: Performed By: #### L IPID, CMP, T4, TSH, FT3 #### [facility] [address] [place] [address] Dr. Mendel Herron Urea nitrogen/Creatinine [Mass ratio] 26.8 mg/mg Normal [facility] Comment on above: Performed By: #### L IPID, CMP, T4, TSH, FT3 #### [facility] [address] [place] [address] Dr. Mendel Herron [facility] SARS-CoV-2 (COVID-19) RNA EDIRDRE+probe Ql (Unsp spec) Not detected Normal NOT DETECTED [facility] Comment on above: Result Comment: This test is not yet approved or cleared by the [place] FDA. When there are no FDA-approved or cleared tests available, and other criteria are met, FDA can make tests available under an emergency access mechanism called an Emergency Use Authorization (EUA). The EUA for this test is supported by the [place] of Health and Human Service's (HHS's) declaration [...] SARS-CoV-2. Performed By: #### C VDTBH #### [facility] [address] [place] [address] Dr. Mendel Herron INFLUENZA A AND B [facility] 07-16 [facility] SEE BELOW Normal [facility] Comment on above: Result Comment: Nega tive for Flu A protein angiten. Infection due to Flu A cannot be ruled out. Flu A angiten in the sample may be below the detection limit of the test. Performed By: #### L IPID, CMP, T4, TSH, FT3 #### [facility] [address] [place] [address] Dr. Mendel Herron [facility] SEE BELOW Normal [facility] Comment on above: Result Comment: Nega tive for Flu B protein antigen. Infection due to Flu B cannot be ruled out. Flu B antigen in the sample may be below the detection limit of the test. Performed By: #### L IPID, CMP, T4, TSH, FT3 #### [facility] [address] [place] [address] Dr. Mendel Herron INFLUENZA A AG Negative Normal NEGATIVE SEE COMMENT [facility] Comment on above: Performed By: #### L IPID, CMP, T4, TSH, FT3 #### [facility] [address] [place] [address] Dr. Mendel Herron INFLUENZA B AG Negative Normal NEGATIVE SEE COMMENT [facility] Comment on above: Performed By: #### L IPID, CMP, T4, TSH, FT3 #### [facility] [address] [place] [address] Dr. Mendel Herron [facility]19 SARS-CoV-2 (COVID-19) RNA DEIRDRE+probe Ql (Unsp spec) Not detected Normal NOT DETECTED [facility] Comment on above: Result Comment: This test is not yet approved or cleared by the [place] FDA. When there are no FDA-approved or cleared tests available, and other criteria are met, FDA can make tests available under an emergency access mechanism called an Emergency Use Authorization (EUA). The EUA for this test is supported by the [place] of Health and Human Service's (HHS's) declaration [...] L IPID, CMP, T4, TSH, FT3 #### [facility] [address] [place] [address] Dr. Mendel Herron INFLUENZA A AND B AGon 05-11 [facility] SEE BELOW Normal [facility] Comment on above: Result Comment: Nega tive for Flu A protein angiten. Infection due to Flu A cannot be ruled out. Flu A angiten in the sample may be below the detection limit of the test. Performed By: #### L IPID, CMP, T4, TSH, FT3 #### [facility] [address] [place] [address] Dr. [address] [facility] Normal [facility] Comment on above: Result Comment: Nega tive for Flu B protein antigen. Infection due to Flu B cannot be ruled out. Flu B antigen in the sample may be below the detection limit of the test. Performed By: #### L IPID, CMP, T4, TSH, FT3 #### [facility] [address] [place], [place] [address] Dr. Mendel Herron INFLUENZA A AG Negative Normal NEGATIVE SEE COMMENT [facility] Comment on above: Performed By: #### L IPID, CMP, T4, TSH, FT3 #### [facility] [address] [place], [place] [address] Dr. Mendel Herron INFLUENZA B AG Negative Normal NEGATIVE SEE COMMENT [facility] Comment on above: Performed By: #### L IPID, CMP, T4, TSH, FT3 #### [facility] [address] [place], [place] [address] Dr. Mendel Herron INTERNAL CONTROLS Within Normal Limits Normal Wi thin Normal Limits [facility] Comment on above: Performed By: #### L IPID, CMP, T4, TSH, FT3 #### [facility] [address] [place], [place] [address] Dr. Mendel Herron Comprehensive Metabolic Empo n 12-23-2021 Albumin [Mass/Vol] 3.7 g/dL Normal 3.2-5.5 [facility] Comment on above: Performed By: #### E BS CMP, EBS LIPID #### [facility] [address] [id number] [place] Albumin/Globulin [Mass ratio] 1.0 {ratio} Normal [facility] Comment on above: Performed By: #### E BS CMP, EBS LIPID #### [facility] [address] [place] [address] [place] ALP [Catalytic activity/Vol] 159 U/L High 32-92 [facility] Comment on above: Performed By: #### E BS CMP, EBS LIPID #### [facility] [address] [place] [address] [place] ALT [Catalytic activity/Vol] 28 U/L Normal 10-60 [facility] Comment on above: Performed By: #### E BS CMP, EBS LIPID #### [facility] [address] [place] [address] [place] AST [Catalytic activity/Vol] 27 U/L Normal 10-42 [facility] Comment on above: Performed By: #### E BS CMP, EBS LIPID #### [facility] [address] [place] [address] [place] Bilirubin [Mass/Vol] 1.2 mg/dL Normal 0.3-1.2 [facility] Comment on above: Performed By: #### E BS CMP, EBS LIPID #### [facility] [address] Calcium [Mass/Vol] 9.2 mg/dL Normal 8.2-10.2 [facility] Comment on above: Performed By: #### E BS CMP, EBS LIPID #### [facility] [address] Chloride [Moles/Vol] 100 mmol/L Normal 95-114 [facility] Comment on above: Performed By: #### E BS CMP, EBS LIPID #### [address] CO2 [Moles/Vol] 20.6 mmol/L Low 22.0-30.0 [facility] Comment on above: Performed By: #### E BS CMP, EBS LIPID #### [address] Creatinine [Mass/Vol] 0.57 mg/dL Normal 0.44-1.03 [facility] Comment on above: Performed By: #### E BS CMP, EBS LIPID #### [place] [address] [place] Estimated GFR ( Ni > 60 Normal [facility] Comment on above: Result Comment: GFR estimated reference range: According to KDOQI guidelines, <60 ml/min/1.73m2 is sufficient to diagnose a patient with chronic kidney disease. Performed By: #### E BS CMP, EBS LIPID #### [facility] [address] [place] [address] [place] Estimated GFR (Non- Am > 60 Normal [facility] Comment on above: Performed By: #### E BS CMP, EBS LIPID #### [facility] [address] [place] [address] [place] Globulin (S) [Mass/Vol] 3.7 g/dL Normal [facility] Comment on above: Performed By: #### E BS CMP, EBS LIPID #### [facility] [address] [place] [address] [place] Glucose [Mass/Vol] 100 mg/dL Normal 70-100 [facility] Comment on above: Performed By: #### E BS CMP, EBS LIPID #### [facility] [address] Potassium [Moles/Vol] 3.9 mmol/L Normal 3.5-5.1 [facility] Comment on above: Performed By: #### E BS CMP, EBS LIPID #### [facility] [address] Protein [Mass/Vol] 7.4 g/dL Normal 6.1-7.9 [facility] Comment on above: Performed By: #### E BS CMP, EBS LIPID #### [facility] [address] [place] [address] Sodium [Moles/Vol] 135 mmol/L Low 136-146 [facility] Comment on above: Performed By: #### E BS CMP, EBS LIPID #### [facility] [address] [place] [address] [place] Urea nitrogen [Mass/Vol] 12 mg/dL Normal 9-23 [facility] Comment on above: Performed By: #### E BS CMP, EBS LIPID #### [facility] [address] Lipid Profileon 12-23-2021 Cholesterol [Mass/Vol] 213 mg/dL High 140-200 [facility] Comment on above: Result Comment: Chol less than 200 mg/dl low risk Chol 201-239 mg/dl borderline risk Chol 240 mg/dl and greater high risk Performed By: #### E BS CMP, EBS LIPID #### [facility] [address] [place] [address] [place] Cholesterol in HDL [Mass/Vol] 36 mg/dL Normal 35-85 [facility] Comment on above: Result Comment: HDL CHOL ATP-III CLASSIFICATION Cardiovascular Risk HDL > or equal to 60 mg/dL LOW HDL < 40 mg/dL HIGH Performed By: #### E BS CMP, EBS LIPID #### [facility] [address] Cholesterol.total/Ch olesterol in HDL [Mass ratio] 5.9 {ratio} Normal <5.0 [facility] Comment on above: Result Comment: PERF ORMED BY: [place] [address] PATHOLOGIST SENIOR SUSTAINABILITY ADVISOR MARIBEL AGUILLON M.D. Performed By: #### E BS CMP, EBS LIPID #### [facility] [address] LDL Cholesterol,Calculat ed 151 mg/dL High 0-100 [facility] Comment on above: Result Comment: LDL ATP III CLASSIFICATION LDL less than 100 mg/dL Optimal LDL 100-129 mg/dL Near or above optimal LDL 130-159 mg/dL Borderline high LDL 160-189 mg/dL High LDL greater than 189 mg/dL Very high Performed By: #### E BS CMP, EBS LIPID #### [address] Triglyceride w/Reflex 129 mg/dL Normal 35-149 [facility] Comment on above: Result Comment: TRIG ATP III CLASSIFICATION TRIG less than 150 mg/dL Normal TRIG 150-199 mg/dL Borderline high TRIG 200-500 mg/dL High TRIG greater than 500 mg/dL Very high Standard traceable to the Center for Disease Conrtrol and Prevention (CDC) test method. Performed By: #### E BS CMP, EBS LIPID #### [facility] [address] [place] [address] VLDL CHOLESTEROL 25 mg/dL Normal [facility] Comment on above: Performed By: #### E BS CMP, EBS LIPID #### [facility] [address] [place] [address] [place] Covid-19 PCR ([facility])on 11-16 SARS-CoV-2 (COVID-19) RNA DEIRDRE+probe Ql (Unsp spec) Detected Critically abnormal NOT DETECTED [facility] Comment on above: Result Comment: This test is not yet approved or cleared by the [place] FDA. When there are no FDA-approved or cleared tests available, and other criteria are met, FDA can make tests available under an emergency access mechanism called an Emergency Use Authorization (EUA). The EUA for this test is supported by the [place] of Health and Human Service's declaration that [...] used). Performed By: #### C VDTBH #### [facility] [address] [place] [address] Dr. Mendel Herron INFLUENZA A AND B [facility] 12-02 [facility] SEE BELOW Normal [facility] Comment on above: Result Comment: Nega tive for Flu A protein angiten. Infection due to Flu A cannot be ruled out. Flu A angiten in the sample may be below the detection limit of the test. Performed By: #### L IPID, CMP, T4, TSH, FT3 #### [facility] [address] [place] [address] Dr. [facility] Normal [facility] Comment on above: Result Comment: Nega tive for Flu B protein antigen. Infection due to Flu B cannot be ruled out. Flu B antigen in the sample may be below the detection limit of the test. Performed By: #### L IPID, CMP, T4, TSH, FT3 #### [facility] [address] [place] [address] Dr. Mendel Herron INFLUENZA A AG Negative Normal NEGATIVE SEE COMMENT [facility] Comment on above: Performed By: #### L IPID, CMP, T4, TSH, FT3 #### [facility] [address] [place] [address] Dr. Mendel Herron INFLUENZA B AG Negative Normal NEGATIVE SEE COMMENT [facility] Comment on above: Performed By: #### L IPID, CMP, T4, TSH, FT3 #### [facility] [address] [place] [address] Dr. Mendel Herron INTERNAL CONTROLS Within Normal Limits Normal Wi thin Normal Limits [facility] Comment on above: Performed By: #### L IPID, CMP, T4, TSH, FT3 #### [facility] [address] [place], [place] [address] Dr. Mendel Herron Cardiovascular Lab Reporton 08-18-2021 Cardiovascular Lab Report [facility] Patient Name: Diana Alvarez [facility] S MR #: [id number] Department of Physician: Curtis Martinez MD Medicine Service Date: 08/18/2021 Division of Birthdate: 1970 Cardiology Room #: [facility] Cardiovascular Services [facility] [address] [place] [address] Cardiovascular Laboratory Report ATRIAL FLUTTER ABLATION AND [...] ab (more content not included)... Normal The [facility] BILL Antinuclear Antibodieson 04-23-2021 Antinuclear Abs, IFA Negative Normal . [facility] Comment on above: Result Comment: Nega tive <1:80 Borderline 1:80 Positive >1:80 ICAP nomenclature: AC-0 For more information about Hep-2 cell patterns use ANApatterns.org, the official website for the International Consensus on Antinuclear Antibody (BILL) Patterns (ICAP). Performed at: [facility] [place] [id number] [employer] Operator Production: Ger Yen PhD, Phone: [phone] PERFORMED BY: [place] [address] PATHOLOGIST SENIOR SUSTAINABILITY ADVISOR MARIBEL AGUILLON M.D. Performed By: #### E SR, CRP, CBC, CREAT #### [address] #### BILL #### [facility] , C-Reactive Proteinon 021 C-Reactive Protein 0.7 mg/dL Normal 0.0-1.0 [facility] Comment on above: Result Comment: PERF ORMED BY: [place] [address] PATHOLOGIST SENIOR SUSTAINABILITY ADVISOR MARIBEL AGUILLON M.D. Performed By: #### E SR, CRP, CBC, CREAT #### [place] [address] [place] #### BILL #### [facility] , Complement C3on 04-23-2021 Complement C3 170 mg/dL High 82-167 [facility] Comment on above: Result Comment: Perf ormed at: [email or web address] [id number] [employer] Operator Production: Ger Yen PhD, Phone: [phone] Performed By: #### A DDONUAPLUS #### [address] #### CH50, C3, C4 #### [facility] , Complement C4on 04-23-2021 Complement C4 14 mg/dL Normal 12-38 [facility] Comment on above: Performed By: #### A DDONUAPLUS #### [address] #### CH50, C3, C4 #### [facility] , Complement Total (CH50)on Complement Total (CH50) >60 Normal >41 [facility] Comment on above: [...] out of range values. Performed at: - [facility] [address] [id number] [employer] Production: Ger Yen PhD, Phone: [phone] PERFORMED BY: [place] [address] PATHOLOGIST SENIOR SUSTAINABILITY ADVISOR MARIBEL AGUILLON M.D. Performed By: #### E BS CMP, EBS LIPID #### [address] Complete Blood Count Auto Di ffon 04-23-2021 Basophils (Bld) [#/Vol] 0.1 10*3/uL Normal 0.0-0.2 [facility] Comment on above: Performed By: #### E SR, CRP, CBC, CREAT #### [address] #### BILL #### [facility] , Basophils/100 WBC (Bld) 0.7 % Normal . [facility] Comment on above: Performed By: #### E SR, CRP, CBC, CREAT #### [place] [address] [place] #### BILL #### [facility] , Eosinophils (Bld) [#/Vol] 0.1 10*3/uL Normal 0.0-0.45 [facility] Comment on above: Performed By: #### E SR, CRP, CBC, CREAT #### [place] [address] [place] #### BILL #### [facility] , Eosinophils/100 WBC (Bld) 0.5 % Normal . [facility] Comment on above: Performed By: #### E SR, CRP, CBC, CREAT #### [place] [address] [place] #### BILL #### [facility] , Erythrocyte distribution width (RBC) [Ratio] 18.0 % High 11.9-15.3 [facility] Comment on above: Performed By: #### E SR, CRP, CBC, CREAT #### [address] #### BILL #### [facility] , Hematocrit (Bld) [Volume fraction] 31.6 % Low 34.0-46.4 [facility] Comment on above: Performed By: #### E SR, CRP, CBC, CREAT #### [place] [address] [place] #### BILL #### [facility] , Hemoglobin (Bld) [Mass/Vol] 9.8 g/dL Low 11.8-15.4 [facility] Comment on above: Performed By: #### E SR, CRP, CBC, CREAT #### [place] [address] [place] #### BILL #### [facility] , Lymphocytes (Bld) [#/Vol] 1.7 10*3/uL Normal 1.00-4.8 [facility] Comment on above: Performed By: #### E SR, CRP, CBC, CREAT #### [address] #### BILL #### [facility] , Lymphocytes/100 WBC (Bld) 15.0 % Normal . [facility] Comment on above: Performed By: #### E SR, CRP, CBC, CREAT #### [facility] [address] [place] [address] #### BILL #### [facility] , MCH (RBC) [Entitic mass] 24.8 pg Normal 24.7-34.3 [facility] Comment on above: Performed By: #### E SR, CRP, CBC, CREAT #### [facility] [address] [place] [address] #### BILL #### [facility] , MCV (RBC) [Entitic vol] 80.1 fL Normal 80-100 [facility] Comment on above: Performed By: #### E SR, CRP, CBC, CREAT #### [address] #### BILL #### [facility] , Mean Corpuscular HGB Conc 31.0 g/dL Low 32.0-35.0 [facility] Comment on above: Performed By: #### E SR, CRP, CBC, CREAT #### [facility] [address] [place] [address] [place] #### BILL #### [facility] , Monocytes (Bld) [#/Vol] 0.5 10*3/uL Normal 0.0-0.8 [facility] Comment on above: Performed By: #### E SR, CRP, CBC, CREAT #### [address] #### BILL #### [facility] , Monocytes/100 WBC (Bld) 4.6 % Normal . [facility] Comment on above: Performed By: #### E SR, CRP, CBC, CREAT #### [address] #### BILL #### [facility] , Neutrophils (Bld) [#/Vol] 9.1 10*3/uL High 1.8-7.7 [facility] Comment on above: Performed By: #### E SR, CRP, CBC, CREAT #### [address] #### BILL #### [facility] , Neutrophils/100 WBC (Bld) 79.2 % Normal . [facility] Comment on above: Performed By: #### E SR, CRP, CBC, CREAT #### [address] #### BILL #### [facility] , Nucleated RBC/100 WBC (Bld) [Ratio] 0.1 % Normal 0-0.5 [facility] Comment on above: Performed By: #### E SR, CRP, CBC, CREAT #### [place] [address] [place] #### BILL #### [facility] , Platelet mean volume (Bld) [Entitic vol] 8.3 fL Normal 6.3-10.7 [facility] Comment on above: Performed By: #### E SR, CRP, CBC, CREAT #### [facility] [address] [place] [address] [place] #### BILL #### [facility] , Platelets (Bld) [#/Vol] 336 10*3/uL Normal 150-450 [facility] Comment on above: Performed By: #### E SR, CRP, CBC, CREAT #### [facility] [address] [place] [address] #### BILL #### [facility] , RBC (Bld) [#/Vol] 3.94 10*6/uL Normal 3.60-5.00 [facility] Comment on above: Performed By: #### E SR, CRP, CBC, CREAT #### [facility] [address] [place] [address] #### BILL #### [facility] , WBC (Bld) [#/Vol] 11.5 10*3/uL High 4.5-11.0 [facility] Comment on above: Performed By: #### E SR, CRP, CBC, CREAT #### [address] #### BILL #### [facility] , Creatinineon 04-23-2021 Creatinine [Mass/Vol] 0.75 mg/dL Normal 0.44-1.03 [facility] Comment on above: Performed By: #### E SR, CRP, CBC, CREAT #### [facility] [address] [place] [address] #### BILL #### [facility] , Estimated GFR ( Ni > 60 Normal [facility] Comment on above: Result Comment: GFR estimated reference range: According to KDOQI guidelines, <60 ml/min/1.73m2 is sufficient to diagnose a patient with chronic kidney disease. Performed By: #### E SR, CRP, CBC, CREAT #### [facility] [address] [place] [address] [place] #### BILL #### [facility] , Estimated GFR (Non- Am > 60 Normal [facility] Comment on above: Performed By: #### E SR, CRP, CBC, CREAT #### [place] [address] [place] #### BILL #### [facility] , Dipstick and Microscopicon 1 Appearance (U) Clear Normal Clear [facility] Comment on above: Order Comment: Name Collection Type:: Clean-Voided Midstream Performed By: #### A DDONUAPLUS #### [address] #### CH50, C3, C4 #### [facility] , Bacteria,Urine None Seen Normal None Seen [facility] Comment on above: Order Comment: Name Collection Type:: Clean-Voided Midstream Performed By: #### A DDONUAPLUS #### [address] #### CH50, C3, C4 #### [facility] , Bilirubin,Urine Negative Normal Negative [facility] Comment on above: Order Comment: Name Collection Type:: Clean-Voided Midstream Performed By: #### A DDONUAPLUS #### [facility] [address] [place] [address] #### CH50, C3, C4 #### [facility] , Color (U) Yellow Normal Yellow [facility] Comment on above: Order Comment: Name Collection Type:: Clean-Voided Midstream Performed By: #### A DDONUAPLUS #### [facility] [address] [place] [address] #### CH50, C3, C4 #### [facility] , Glucose Ql (U) 100 mg/dL High Normal [facility] Comment on above: Order Comment: Name Collection Type:: Clean-Voided Midstream Performed By: #### A DDONUAPLUS #### [facility] [address] [place] [address] #### CH50, C3, C4 #### [facility] , Hyaline Casts,Urine 0-8 Normal 0-8 [facility] Comment on above: Order Comment: Name Collection Type:: Clean-Voided Midstream Result Comment: PERF ORMED BY: [place] [address] PATHOLOGIST SENIOR SUSTAINABILITY ADVISOR MARIBEL AGUILLON M.D. Performed By: #### A DDONUAPLUS #### [address] #### CH50, C3, C4 #### [facility] , Ketones Ql (U) Negative Normal Negative [facility] Comment on above: Order Comment: Name Collection Type:: Clean-Voided Midstream Performed By: #### A DDONUAPLUS #### [address] #### CH50, C3, C4 #### [facility] , Leukocyte esterase Test strip Ql (U) Negative Normal Negative [facility] Comment on above: Order Comment: Name Collection Type:: Clean-Voided Midstream Performed By: #### A DDONUAPLUS #### [address] #### CH50, C3, C4 #### [facility] , Nitrite,Urine Negative Normal Negative [facility] Comment on above: Order Comment: Name Collection Type:: Clean-Voided Midstream Performed By: #### A DDONUAPLUS #### [address] #### CH50, C3, C4 #### [facility] , Occult Blood,Urine Negative Normal Negative [facility] Comment on above: Order Comment: Name Collection Type:: Clean-Voided Midstream Performed By: #### A DDONUAPLUS #### [address] #### CH50, C3, C4 #### [facility] , pH (U) 5.0 [pH] Normal 5.0-9.0 [facility] Comment on above: Order Comment: Name Collection Type:: Clean-Voided Midstream Performed By: #### A DDONUAPLUS #### [address] #### CH50, C3, C4 #### [facility] , Protein,Urine Negative Normal Negative [facility] Comment on above: Order Comment: Name Collection Type:: Clean-Voided Midstream Performed By: #### A DDONUAPLUS #### [address] #### CH50, C3, C4 #### [facility] , RBC,Urine None Seen Normal 0-4 [facility] Comment on above: Order Comment: Name Collection Type:: Clean-Voided Midstream Performed By: #### A DDONUAPLUS #### [address] #### CH50, C3, C4 #### [facility] , Specificy [place],Urine 1.009 Normal 1.001-1.030 [facility] Comment on above: Order Comment: Name Collection Type:: Clean-Voided Midstream Performed By: #### A DDONUAPLUS #### [address] #### CH50, C3, C4 #### [facility] , Squamous Epithelial Cell,Urine 0-1 Normal 0-2 [facility] Comment on above: Order Comment: Name Collection Type:: Clean-Voided Midstream Performed By: #### A DDONUAPLUS #### [address] #### CH50, C3, C4 #### [facility] , Urobilinogen,Urine Normal Normal Normal [facility] Comment on above: Order Comment: Name Collection Type:: Clean-Voided Midstream Performed By: #### A DDONUAPLUS #### [address] #### CH50, C3, C4 #### [facility] , WBC LM.HPF (Urine sed) [#/Area] 0 /[HPF] Normal 0-4 [facility] Comment on above: Order Comment: Name Collection Type:: Clean-Voided Midstream Performed By: #### A DDONUAPLUS #### [facility] [address] [place] [address] [place] #### CH50, C3, C4 #### [facility] , Erythrocyte Sedimentation Ra ryley 04-23-2021 ESR (Bld) [Velocity] 55 mm/h High 0-29 [facility] Comment on above: Result Comment: PERF ORMED BY: [place] [address] PATHOLOGIST SENIOR SUSTAINABILITY ADVISOR MARIBEL AGUILLON M.D. Performed By: #### E SR, CRP, CBC, CREAT #### [facility] [address] #### BILL #### [facility] , BASIC METABOLIC PANELon 03-20 Calcium [Mass/Vol] 8.7 mg/dL Normal 8.6-10.3 [facility] Comment on above: Order Comment: No: D o not add to previous draw Performed By: #### 5 7307, 19721 #### [facility] [address] [place] [address], [place] Chloride [Moles/Vol] 97 mmol/L Low 98-107 [facility] Comment on above: Order Comment: No: D o not add to previous draw Performed By: #### 5 7307, 78643 #### [facility] [address] [place] [address], [place] CO2 [Moles/Vol] 36 mmol/L High 21-31 [facility] Comment on above: Order Comment: No: D o not add to previous draw Performed By: #### 5 7307, 09524 #### [facility] [address] [place] [address], [place] Creatinine [Mass/Vol] 0.74 mg/dL Normal 0.60-1.20 [facility] Comment on above: Order Comment: No: D o not add to previous draw Performed By: #### 5 7307, 20494 #### [facility] [address] [place] [address], [place] GFR/1.73 sq M.predicted among blacks MDRD (S/P/Bld) [Vol rate/Area] mL/min/{1.73_m2} Normal >60 [facility] Comment on above: Order Comment: No: D o not add to previous draw Performed By: #### 5 7307, 32923 #### [facility] [address] [place] [address], [place] GFR/1.73 sq M.predicted among non-blacks MDRD (S/P/Bld) [Vol rate/Area] mL/min/{1.73_m2} Normal >60 [facility] Comment on above: Order Comment: No: D o not add to previous draw Performed By: #### 5 7307, 93904 #### [facility] [address] [place] [address], [place] Glucose [Mass/Vol] 123 mg/dL High 70-100 [facility] Comment on above: Order Comment: No: D o not add to previous draw Performed By: #### 5 7307, 24875 #### [facility] [address] [place] [address], [place] Potassium [Moles/Vol] 4.3 mmol/L Normal 3.5-5.1 [facility] Comment on above: Order Comment: No: D o not add to previous draw Performed By: #### 5 7307, 36202 #### [facility] [address] [place] [address], [place] Sodium [Moles/Vol] 139 mmol/L Normal 136-145 [facility] Comment on above: Order Comment: No: D o not add to previous draw Performed By: #### 5 73, 65618 #### [facility] [address] [place] [address], [facility] Urea nitrogen [Mass/Vol] 24 mg/dL Normal 7-25 [facility] Comment on above: Order Comment: No: D o not add to previous draw Performed By: #### 5 7306, 81233 #### [facility] [address] [place] [id number], [facility] CBC COMPLETE BLOOD COUNTon 0 04-11-2021 Erythrocyte distribution width (RBC) [Ratio] 16.8 % High 11.5-15.0 [facility] Comment on above: Order Comment: No: D o not add to previous draw Performed By: #### 5 73, 66025 #### [facility] [address] [place] [address], [facility] Hematocrit (Bld) [Volume fraction] 29.7 % Low 36.0-45.0 [facility] Comment on above: Order Comment: No: D o not add to previous draw Performed By: #### 5 7306, 41868 #### [facility] [address] [place] [id number], [facility] Hemoglobin (Bld) [Mass/Vol] 8.9 g/dL Low 12.0-15.0 [facility] Comment on above: Order Comment: No: D o not add to previous draw Performed By: #### 5 7307, 44614 #### [facility] [address] [place] [address], [facility] MCH (RBC) [Entitic mass] 25.4 pg Low 27.0-33.0 [facility] Comment on above: Order Comment: No: D o not add to previous draw Performed By: #### 5 7307, 56130 #### [facility] [address] [place] [address], [facility] MCHC (RBC) [Mass/Vol] 30.0 g/dL Low 32.0-35.0 [facility] Comment on above: Order Comment: No: D o not add to previous draw Performed By: #### 5 7307, 37531 #### [facility] [address] [place] [address], [facility] MCV (RBC) [Entitic vol] 84.9 fL Normal 82.0-98.0 [facility] Comment on above: Order Comment: No: D o not add to previous draw Performed By: #### 5 7307, 10908 #### [facility] [address] [place] [id number], [facility] Nucleated RBC/100 WBC (Bld) [Ratio] 0 % Normal 0-0 [facility] Comment on above: Order Comment: No: D o not add to previous draw Performed By: #### 5 73, 81329 #### [facility] [address] [place] [id number], [facility] PLAT CNT 446 10*3/uL High 150-[address] [facility] Comment on above: Order Comment: No: D o not add to previous draw Performed By: #### 5 7307, 49217 #### [facility] [address] [place] [address], [facility] RBC (Bld) [#/Vol] 3.50 10*6/uL Low 3.80-5.00 [facility] Comment on above: Order Comment: No: D o not add to previous draw Performed By: #### 5 7307, 08415 #### [facility] [address] [place] [address], [place] WBC (Bld) [#/Vol] 16.54 10*3/uL High 4.00-10.60 [facility] Comment on above: Order Comment: No: D o not add to previous draw Performed By: #### 5 7307, 48645 #### [facility] [address] [place] [id number], [facility] Cardiovascular Lab Reporton 04-11-2021 Cardiovascular Lab Report [facility] Patient Name: Antonio [facility] S MR #: [id number] Department of Physician: London Rodas M.D. Division of Service Date: 04/11/2021 Cardiology Birthdate: 1970 Adult Cardiovascular Room #: [id number] [address] [place] [address] Cardiovascular Laboratory Report PROCEDURE PERFORMED: Transesophageal echocardiogram and cardioversion. INDICATION: Atrial flutter. FELLOW: Dunia Sierra MD PROCEDURE IN DETAIL: Informed consent was obtained from the patient after explaining the indication, risks, benefits, as well as alternatives. The patient understood and agreed, and signed the consent form. The patient was brought to the labor relations teacher and transesophageal echocardiogram was performed, under conscious [...] Sierra MD Date Trans: 04/11/2021 12:53 P/marixa [id number] cc: Phillip Ann M.D. [address] [facility] [id number] Normal [facility] MAGNESIUM BLOODon 04-11-2021 Magnesium [Mass/Vol] 2.3 mg/dL Normal 1.9-2.7 [facility] Comment on above: Order Comment: No: D o not add to previous draw Performed By: #### 5 7307, 85403 #### [facility] [address] POC GLUCOSE LABon 04-11-2021 Glucose [Mass/Vol] 124 mg/dL High 70-100 [facility] Comment on above: Performed By: #### 5 7307, 41577 #### [facility] [address] TROPONIN-Ion 04-11-2021 Troponin I.cardiac [Mass/Vol] 0.06 ng/mL High 0.00-0.04 [facility] Comment on above: Order Comment: No: D o not add to previous draw Result Comment: REFE RENCE RANGES: 0.00 - 0.04 ng/ml NORMAL 0.05 - 0.50 ng/ml INDETERMINATE > 0.50 ng/ml CONSISTENT WITH AN M.I. Performed By: #### 5 7307, 53617 #### [facility] [address] [facility] [address] *BLOOD CULTUREon 04-10-2021 *BLOOD CULTURE Clinical Report: (D) Specimen: BLOOD CULTURE Collected: 04/10/2021 09:50 Status: Final Last Updated: 04/15/2021 11:28 (1) Right hand CULT RES (Final) No Growth Day 5 Normal [facility] Comment on above: Order Comment: No: D o not add to previous draw Performed By: #### 5 7307, 79176 #### [facility] [address] [facility] [address] *BLOOD CULTURE Clinical Report: (D) Specimen: BLOOD CULTURE Collected: 04/10/2021 09:50 Status: Final Last Updated: 04/15/2021 11:28 (1) Left hand CULT RES (Final) No Growth Day 5 Normal [facility] Comment on above: Order Comment: No: D o not add to previous draw Performed By: #### 5 7307, 68591 #### [facility] [address] *SARS-CoV-2 COVID-19on 04-10 SARS-CoV-2 (COVID-19) RNA DEIRDRE+probe Ql (Unsp spec) Not detected Normal Not Detected [facility] Comment on above: Order Comment: No: D o not add to previous draw Performed By: #### 5 7307, 06312 #### [facility] [address] [place] [address], [facility] APTTon 04-10-2021 aPTT Coag (Bld) [Time] 23.4 s Low 25.0-35.0 [facility] Comment on above: Order Comment: No: [...] THIS PURPOSE. Performed By: #### 5 7307, 74578 #### [facility] [address] [place] [address], [facility] aPTT Coag (Bld) [Time] 23.2 s Low 25.0-35.0 [facility] Comment on above: Order Comment: No: [...] THIS PURPOSE. Performed By: #### 5 7307, 30891 #### [facility] [address] [place] [address], [facility] BASIC METABOLIC PANELon 03-20 Calcium [Mass/Vol] 8.6 mg/dL Normal 8.6-10.3 [facility] Comment on above: Order Comment: No: D o not add to previous draw Performed By: #### 1 0, 27499, 34379 #### [facility] [address] [place] [address], [place] Chloride [Moles/Vol] 99 mmol/L Normal 98-107 [facility] Comment on above: Order Comment: No: D o not add to previous draw Performed By: #### 1 0, 86156, 81376 #### [facility] [address] [place] [address], [place] CO2 [Moles/Vol] 32 mmol/L High 21-31 [facility] Comment on above: Order Comment: No: D o not add to previous draw Performed By: #### 1 0, 51056, 24149 #### [facility] [address] [place] [address], [place] Creatinine [Mass/Vol] 0.84 mg/dL Normal 0.60-1.20 [facility] Comment on above: Order Comment: No: D o not add to previous draw Performed By: #### 1 0, 25746, 90221 #### [facility] [address] [place] [address], [place] GFR/1.73 sq M.predicted among blacks MDRD (S/P/Bld) [Vol rate/Area] mL/min/{1.73_m2} Normal >60 [facility] Comment on above: Order Comment: No: D o not add to previous draw Performed By: #### 1 0, 49604, 98066 #### [facility] [address] [place] [address], [place] GFR/1.73 sq M.predicted among non-blacks MDRD (S/P/Bld) [Vol rate/Area] mL/min/{1.73_m2} Normal >60 [facility] Comment on above: Order Comment: No: D o not add to previous draw Performed By: #### 1 0, 13434, 19613 #### [facility] [address] [place] [address], [place] Glucose [Mass/Vol] 117 mg/dL High 70-100 [facility] Comment on above: Order Comment: No: D o not add to previous draw Performed By: #### 1 0, 19799, 06534 #### [facility] [address] [place] [address], [place] Potassium [Moles/Vol] 3.9 mmol/L Normal 3.5-5.1 [facility] Comment on above: Order Comment: No: D o not add to previous draw Performed By: #### 1 0, 22982, 29968 #### [facility] [address] [place] [address], [place] Sodium [Moles/Vol] 139 mmol/L Normal 136-145 [facility] Comment on above: Order Comment: No: D o not add to previous draw Performed By: #### 1 0, 18942, 32765 #### [facility] [address] [place] [address], [place] Urea nitrogen [Mass/Vol] 19 mg/dL Normal 7-25 [facility] Comment on above: Order Comment: No: D o not add to previous draw Performed By: #### 1 0, 84695, 59639 #### [facility] [address] [place] [address], [place] BNP (B-TYPE NATRIURETIC PEPT MARILYN)on 04-10-2021 Natriuretic peptide B (Bld) [Mass/Vol] 259 pg/mL High 0-[address] [facility] Comment on above: Order Comment: No: D o not add to previous draw Result Comment: Give n the appropriate clinical setting a BNP result of >100 pg/mL indicates congestive heart failure. Performed By: #### 5 8207, 77565 #### [facility] [address] CBC W/DIFFon 04-10-2021 ABS IMM GRANS 1.1 10*3/uL High 0.0-0.2 [facility] Comment on above: Performed By: #### 5 3 #### [facility] [address] ABS NEUTROPHILS 9.6 10*3/uL High 1.6-7.6 [facility] Comment on above: Performed By: #### 5 102 #### [facility] [address] ANISO MODERATE Normal [facility] Comment on above: Performed By: #### 5 102 #### [facility] [address] Basophils (Bld) [#/Vol] 0.1 10*3/uL Normal 0.0-0.2 [facility] Comment on above: Performed By: #### 5 3 #### [facility] [address] [place] [address], [facility] Basophils/100 WBC (Bld) 0.7 % Normal 0.0-1.0 [facility] Comment on above: Performed By: #### 5 3 #### [facility] [address] [place] [address], [facility] Eosinophils (Bld) [#/Vol] 0.1 10*3/uL Normal 0.0-0.5 [facility] Comment on above: Performed By: #### 5 3 #### [facility] [address] [place] [address], [facility] Eosinophils/100 WBC (Bld) 0.4 % Normal 0.0-6.0 [facility] Comment on above: Performed By: #### 5 3 #### [facility] [address] [place] [address], [facility] Erythrocyte distribution width (RBC) [Ratio] 16.5 % High 11.5-15.0 [facility] Comment on above: Performed By: #### 5 0103 #### [facility] [address] [place] [address], [facility] Hematocrit (Bld) [Volume fraction] 31.2 % Low 36.0-45.0 [facility] Comment on above: Performed By: #### 5 0103 #### [facility] [address] [facility] [place] [id number], [facility] Hemoglobin (Bld) [Mass/Vol] 9.0 g/dL Low 12.0-15.0 [facility] Comment on above: Performed By: #### 5 0103 #### [facility] [address] [facility] [place] [address], [facility] HYPO SLIGHT Normal [facility] Comment on above: Performed By: #### 5 0103 #### [facility] [address] [facility] [place] [address], [facility] IMMATURE GRANS 6.8 % High 0.0-1.0 [facility] Comment on above: Performed By: #### 5 0103 #### [facility] [address] [place] [address], [facility] Lymphocytes (Bld) [#/Vol] 4.4 10*3/uL High 1.2-4.0 [facility] Comment on above: Performed By: #### 5 0103 #### [facility] [address] [facility] [place] [address], [facility] Lymphocytes/100 WBC (Bld) 26.4 % Normal 20.0-45.0 [facility] Comment on above: Performed By: #### 5 0103 #### [facility] [address] [place] [address], [facility] MCH (RBC) [Entitic mass] 25.3 pg Low 27.0-33.0 [facility] Comment on above: Performed By: #### 5 0103 #### [facility] [address] [facility] [address] MCHC (RBC) [Mass/Vol] 28.8 g/dL Low 32.0-35.0 [facility] Comment on above: Performed By: #### 5 0103 #### [facility] [address] [place] [address], [facility] MCV (RBC) [Entitic vol] 87.6 fL Normal 82.0-98.0 [facility] Comment on above: Performed By: #### 5 0103 #### [facility] [address] [facility] [place] [address], [facility] Monocytes (Bld) [#/Vol] 1.3 10*3/uL High 0.1-1.0 [facility] Comment on above: Performed By: #### 5 0103 #### [facility] [address] [facility] [place] [address], [facility] MONOS 7.6 % Normal 5.0-12.0 [facility] Comment on above: Performed By: #### 5 0103 #### [facility] [address] [facility] [address] Neutrophils/100 WBC (Bld) 58.1 % Normal 40.0-72.0 [facility] Comment on above: Performed By: #### 5 0103 #### [facility] [address] [facility] [place] [address], [facility] Nucleated RBC/100 WBC (Bld) [Ratio] 1 % High 0-0 [facility] Comment on above: Performed By: #### 5 3 #### [facility] [address] [place] [address], [facility] PLAT CNT 483 10*3/uL High 150-[address] [facility] Comment on above: Performed By: #### 5 0103 #### [facility] [address] [place] [address], [facility] POIK SLIGHT Normal [facility] Comment on above: Performed By: #### 5 0103 #### [facility] [address] [place] [address], [facility] POLY SLIGHT Normal [facility] Comment on above: Performed By: #### 5 0103 #### [facility] [address] [place] [address], [facility] RBC (Bld) [#/Vol] 3.56 10*6/uL Low 3.80-5.00 [facility] Comment on above: Performed By: #### 5 0103 #### [facility] [address] [place] [address], [facility] WBC (Bld) [#/Vol] 16.54 10*3/uL High 4.00-10.60 [facility] Comment on above: Performed By: #### 5 0103 #### [facility] [address] [place] [address], [facility] LIPID PROFILEon 04-10-2021 Cholesterol [Mass/Vol] 161 mg/dL Normal 120-200 [facility] Comment on above: Result Comment: CHOL ESTEROL REFERENCE RANGE: 20 YEARS AND OLDER CARDIOVASCULAR RISK Less than 200 mg/dl Low Risk 200 to 239 mg/dl Borderline Risk 240 mg/dl and greater High Risk Performed By: #### 3 1569, 93027, 79105 #### [facility] [address] [facility] [place] [address], [facility] Cholesterol in HDL [Mass/Vol] 61 mg/dL Normal 23-92 [facility] Comment on above: Result Comment: Slig ht variation in normal range could be due to gender and/or age. HDL CHOLESTEROL REFERENCE RANGE: 20 years and older Cardiovascular Risk > or =60 mg/dL Desirable 40 TO 59 mg/dL Low Risk <40 mg/dL High Risk Performed By: #### 3 1569, 89412, 51341 #### [facility] [address] [place] [address], [facility] Cholesterol in LDL [Mass/Vol] 28 mg/dL Normal 0-130 [facility] Comment on above: Result Comment: LDL IS A CALCULATION LDL IS ONLY VALID IF THE TRIG IS LESS THAN 400. Performed By: #### 3 1569, 67110, 76368 #### [facility] [address] [place] [address], [facility] Cholesterol.total/Ch olesterol in HDL [Mass ratio] 2.6 {ratio} Normal .0-4.5 [facility] Comment on above: Performed By: #### 3 1569, 82144, 12042 #### [facility] [address] [place] [address], [facility] NON-HDL CHOLESTEROL 100 mg/dL Normal [facility] Comment on above: Performed By: #### 3 1569, 85250, 31005 #### [facility] [address] [place] [address], [facility] Triglyceride [Mass/Vol] 362 mg/dL High 40-149 [facility] Comment on above: Result Comment: TRIG LYCERIDE REFERENCE RANGE: 20 YEARS AND OLDER CARDIOVASCULAR RISK LESS THAN 150 mg/dl LOW RISK 150 TO 199 mg/dl BORDERLINE RISK 200 mg/dl AND GREATER HIGH RISK Performed By: #### 3 1569, 08950, 02409 #### [facility] [address] [place] [address], [facility] VLDL CHOL 72 mg/dL High 0-40 [facility] Comment on above: Performed By: #### 3 1569, 29969, 11880 #### [facility] [address] [place] [address], [facility] MAGNESIUM BLOODon 04-10-2021 Magnesium [Mass/Vol] 2.4 mg/dL Normal 1.9-2.7 [facility] Comment on above: Order Comment: No: D o not add to previous draw Performed By: #### 1 0070, 12542, 84927 #### [facility] [address] [place] [address], [facility] POC GLUCOSE LABon 04-10-2021 Glucose [Mass/Vol] 350 mg/dL High 70-100 [facility] Comment on above: Performed By: #### 5 7307, 94715 #### [facility] [address] [place] [address], [place] Glucose [Mass/Vol] 249 mg/dL High 70-100 [facility] Comment on above: Performed By: #### 5 7307, 11668 #### [facility] [address] [place] [address], [facility] PROCALCITONINon 04-10-2021 PROCALCITONIN 0.09 ng/mL Normal 0.00-0.10 [facility] Comment on [...] initial PCT<0.5ng/mL Performed By: #### 5 7307, 33520 #### [facility] [address] [place] [address], [facility] PROTHROMBIN TIMEon 1 INR Coag (PPP) [Relative time] 1.07 {INR} Normal 0.91-1.16 [facility] Comment on above: Order Comment: No: [...] CHEST 1995;108:[id number]. Performed By: #### 5 7307, 77644 #### [facility] [address] [place] [address], [facility] PT Coag (PPP) [Time] 13.9 s Normal 12.3-14.8 [facility] Comment on above: Order Comment: No: D o not add to previous draw Result Comment: ALL RESULTS MUST BE INTERPRETED WITH RESPECT TO BLOOD DRAWING ARTIFACT OR DILUTION ERROR OF ANTICOAGULANT AT THE TIME OF SAMPLING. Performed By: #### 5 7307, 23259 #### [facility] [address] [place] [address], [facility] TROPONIN-Ion 04-10-2021 Troponin I.cardiac [Mass/Vol] 0.07 ng/mL High 0.00-0.04 [facility] Comment on above: Order Comment: No: D o not add to previous draw Result Comment: REFE RENCE RANGES: 0.00 - 0.04 ng/ml NORMAL 0.05 - 0.50 ng/ml INDETERMINATE > 0.50 ng/ml CONSISTENT WITH AN M.I. Performed By: #### 3 1569, 34708, 17573 #### [facility] [address] [facility] [place] [address], [facility] Troponin I.cardiac [Mass/Vol] 0.07 ng/mL High 0.00-0.04 [facility] Comment on above: Order Comment: No: D o not add to previous draw Result Comment: REFE RENCE RANGES: 0.00 - 0.04 ng/ml NORMAL 0.05 - 0.50 ng/ml INDETERMINATE > 0.50 ng/ml CONSISTENT WITH AN M.I. Performed By: #### 1 0070, 89025, 76599 #### [facility] [address] [facility] [place] [address], [facility] TSH3 WITH REFLEX FT4on 04-10 TSH 3RD GENERATION 0.95 uIU/mL Normal 0.34-5.60 [facility] Comment on above: Order Comment: Yes: Add to Previous draw if able Performed By: #### 3 1569 #### [facility] [address] [place] [address], [facility] TSH 3RD GENERATION 3.12 uIU/mL Normal 0.34-5.60 The [facility] Comment on above: Performed By: #### 3 1569, 84892, 44184 #### [facility] [address] [place] [address], [facility] UFH HEPARIN ASSAYon 04-10-20 UNFRACTIONATED HEPARIN >1.00 Critically high 0.30-0.70 [facility] Comment on above: Result Comment: Resu lt checked and called. Accurately read back by Haven Avila RN at 1122 per RN patient may have previously been given Eliquis. UFH = 1.36 for pharmacy use Rivaroxaban and Apixaban will interfere with the anti Xa assay used to monitor UFH and LMWH. Performed By: #### 5 7307, 88213 #### [facility] [address] [employer] [address] [employer] Cardiovascular Lab Reporton 01-30-2021 Cardiovascular Lab Report [facility] Patient Name: [facility] S MR #: [id number] Department of Physician: Lonodn Ross M.D. Division of Service Date: 01/30/2021 Cardiology Birthdate: 1970 Adult Cardiovascular Room #: [facility] [address] [facility] [place] [address] Cardiovascular Laboratory Report FINAL IMPRESSIONS: 1. Moderately [...] 5. Follow up with Cardiology in the [facility] Cardiology office in the next 2 [...] right internal jugular vein was obtained. A 6-[place] glide sheath was inserted without difficulty. A [...] Bear M.D. Date Trans: 01/30/2021 02:48 P/marixa [id number] cc: Phillip Ann M.D. [address], [facility] [address] [facility] Vital Signs Date Time Vital Sign Value Performing Clinician Iman stafford 04-04-2024 13:58-0400 Blood Pressure Location Juan Miguel CHAVEZ [facility] 04-04-2024 13:58-0400 Diastolic blood pressure 76 mm[Hg] Juan Miguel CHAVEZ [facility] 04-04-2024 13:58-0400 Heart rate 72 /min Juan Miguel CHAVEZ [facility] 04-04-2024 13:58-0400 Respiratory rate 16 /min Juan Miguel NILL [facility] 04-04-2024 13:58-0400 Systolic blood pressure 122 mm[Hg] Juan Miguel NILL [facility] 09-15-2022 15:24-0500 Blood Pressure Location Juan Miguel NILL [facility] 09-15-2022 15:24-0500 Diastolic blood pressure 78 mm[Hg] Juan Miguel NILL [facility] [place] 09-15-2022 15:24-0500 Heart rate 70 /min Juan Miguel NILL [facility] [place] 09-15-2022 15:24-0500 Respiratory rate 16 /min Juan Miguel NILL [facility] [place] 09-15-2022 15:24-0500 Systolic blood pressure 116 mm[Hg] Juan Miguel NILL [facility] Encounters Encounter Date Encounter Type Care Provider Facility Start: 10-26-2024 End: 10-26-2024 ambulatory [facility] Start: 10-18-2024 ambulatory [facility] Start: 09-12-2024 End: 09-12-2024 ambulatory [facility] Start: 06-09-2024 ambulatory [facility] Start: 05-24-2024 ambulatory [facility] Start: 04-19-2024 End: 04-19-2024 ambulatory Juan Miguel CHAVEZ Facility:CD:[id number] Start: 04-17-2024 ambulatory BESSIE MORRISSEY [facility] Start: 04-13-2024 End: 04-13-2024 ambulatory [facility] Start: 04-13-2024 End: 04-13-2024 Encounter for other preprocedural examination [facility] Start: 04-04-2024 End: 04-04-2024 ambulatory Juan Miguel Ortiz DAYOTeodoro Facility:[facility] Start: 04-04-2024 End: 04-04-2024 Patient encounter procedure Juan Miguel Ortiz DAYOTeodoro [facility] [place] Start: 01-11-2024 ambulatory [facility] Start: 12-28-2023 ambulatory [facility] Start: 11-17-2022 End: 11-17-2022 ambulatory EMILY TREVIN . Facility:[facility] Start: 10-28-2022 End: 10-28-[address] PHILLIP ANN . Facility:[facility] Start: 09-24-2022 End: 09-24-[address] PHILLIP ANN . Facility:[facility] Start: 09-15-2022 End: 09-15-2022 Patient encounter procedure Juan Miguel Ortiz BRAD [facility] [place] Start: 09-09-2022 End: 09-10-[address] PHILLIP [...] Evaluation and management of inpatient PHILLIP ANN Facility:[facility] Start: 01-30-2021 End: 01-31-2021 ambulatory CASSY BEAR Facility:[facility] Procedures Date Procedure Procedure Detail Performing Clinician Start: 04-11-2021 Mu-Ism of Cardi ac Rhythm, Single SAMER Sony TORRES Start: 04-11-2021 ULTRASONOGRAPHY OF H EART WITH AORTA, TRANSESOPHAGEAL ABDELMONIEM MOUSTAFA section Juan Miguel NIL L section Juan Miguel NIL L Endoscopy of nose Juan Miguel NI LL Excision of cyst of breast Chiquis OSHEAL History of radiofreq uency ablation operation for arrhythmia Juan Miguel DAYOL Implantation of inse rtable loop recorder Juan Miguel DAYOL Ligation of fallopian tube Chiquis OSHEAL Plan of Treatment Date Care Activity Detail Author Start: 12-02-2022 ambulatory Ambulatory Facility:[facility] Immunizations Immunization Date Immunization Notes Care Provider Fa cili 04-18-2022 influenza virus vaccine, unspecified formulation Juan Miguel OSHEAL [facility] 10-29-2020 SARS-CoV-2 (COVID-19 ) mRNA-1273 vaccine Juan Miguel OSHEAL [facility] 10-25-2020 SARS-CoV-2 (COVID-19 ) mRNA BNT-162b2 vax Juan Miguel OSHEAL [facility] Comment on above: Result Comment: 2022: [id number] 10-24-2020 SARS-CoV-2 (COVID-19 ) mRNA BNT-162b2 vax Juan Miguel NILL [facility] 10-04-2020 SARS-CoV-2 (COVID-19 ) mRNA BNT-162b2 vax Juan Miguel NILL [facility] [place] Comment on above: Result Comment: 2022: [id number] 10-03-2020 SARS-CoV-2 (COVID-19 ) mRNA BNT-162b2 bebeto CHAVEZ [facility] Payers Date Payer Category Payer Unknown [id number] 1970 Unknown [id number] 2.16.8 [id number] 1970 Unknown [id number] 2.16.8 40.1.821769.3.579.2.647 1970 Unknown [id number] 2.16.84 0.1.950209.3.579.2.593 1970 Unknown [id number] 2.16.84 0.1.980878.3.579.2.593 1970 Unknown [id number] 2.16.84 0.1.027665.3.579.2.593 1968 Unknown [id number] 2.16.84 0.1.607050.3.579.2.593 1970 Unknown [id number] 2.16.84 0.1.438598.3.579.2.593 1970 Unknown [id number] 2.16.84 0.1.994807.3.579.2.593 1968 Unknown [id number] 2.16.84 0.1.072325.3.579.2.593 1968 Unknown [id number] 2.16.84 0.1.089781.3.579.2.593 1968 Unknown [id number] 2.16.84 0.1.741862.3.579.2.593 1968 Unknown [id number] 2.16.84 0.1.298839.3.579.2.593 1968 Unknown [id number] 2.16.84 0.1.625250.3.579.2.593 1968 Unknown [id number] 2.16.84 0.1.259544.3.579.2.593 1968 Unknown [id number] 2.16.84 0.1.422806.3.579.2.593 1968 Unknown [id number] 2.16.8 40.1.768625.3.579.2.727 1970 Unknown [id number] 2.16.8 40.1.958128.3.579.2.727 1961 Unknown [id number] 1961 Unknown [id number] 1961 Unknown [id number] 1961 Unknown [id number] Social History Date Type Detail Facility Start: 09-15-2022 End: 04-04-2024 Tobacco smoking status Ex-smoker (finding) [facility] Tobacco smoking status Never [facility] Sex Assigned At Female [facility] Medical Equipment Procedure Code Equipment Code Equipment Origin al Text Equipment Identifier Dates lancets, glucome ter, alcohol swabs, testing strips, insulin pen needles, Print Requisition, Supply Start: 08-25-2021 lancets, glucome ter, alcohol swabs, testing strips, insulin pen needles, Print Requisition, Supply Start: 08-25-2021 Functional Status Date Assessment Result Facility 04-04-2024 Functional Status N/A [facility] [place] 09-15-2022 Functional Status N/A [facility] Clinical Notes 04-12-2021 to 10-26-2024 Note Date & Type Note Facility 10-26-2024 Note [facility] 10-26-2024 Note Cardiovascular Medic [facility] SUBJECTIVE Chief Complaint Patient [...] trended upwards is a since seen in [facility] 04/28/2023 and was diagnosed with vertigo [...] atrial flutter s (more content not included)... [facility] 10-26-2024 Note Patient here for com plaints of hypotension, dizziness. Patient denies chest pain, SOB, leg swelling. Patient states she feels really good expect for the dizzy spells. Review of Systems Musculoskeletal: Positive for joint pain. Neurological: Positive for dizziness and headaches. [facility] 09-12-2024 Note [facility] Consul t Note Reason [...] trended upwards is a since seen in [facility] 04/28/2023 and was diagnosed with vertigo [...] Not on file (more content not included)... [facility] 04-13-2024 Note Cardiovascular Medic in[facility] SUBJECTIVE Chief Complaint Patient presents with [...] trended upwards is a since seen in [facility] 04/28/2023 and was diagnosed with vertigo [...] disease (CMS/HCC) C (more content not included)... [facility] 04-13-2024 Note Patient here for 6 m [...] All other systems reviewed and are negative. [facility] 04-04-2024 Note General Surgery Offi ce/Clinic Note [...] Diabetes Diverticulosis Ep (more content not included)... [facility] Comment on above: Result Comment: Elec tronically Signed By: BRAD DIAZ, Juan Miguel Rivera\Date and Time Signed: 04/04/24 17:16 EDT 11-17-2022 [...] by: AUDREY BO Date: 2022-11-17 12:14 The [facility] 04-12-2021 Note MR#: [id number] [facility] Pt. Name: Diana Alvarez Admitted: 04/10/2021 Discharged: 04/11/2021 Date of : 1970 Physician: Albert Wick MD DISCHARGE SUMMARY PRIMARY DIAGNOSIS: New-onset atrial flutter with RVR. SECONDARY DIAGNOSES: 1. Pulmonary hypertension. 2. COPD. 3. Diabetes. HISTORY OF PRESENT ILLNESS: This patient is a 50-year-old female with past medical history of COPD, hypertension, and diabetes, who was sent from [facility] due to atrial flutter with RVR due to COPD exacerbation. The patient was initially treated with IV Cardizem, however, it was changed to p.o. prior to transfer. The patient was also given loading dose digoxin. The patient was transferred to [facility] for cardioversion. [...] P/Albert Wick MD Date Trans: 04/12/2021 03:25 P/mmo [id number] cc: Phillip Ann M.D. [address], [facility] [place] [address] [facility] Evaluation + Plan note No data available for this section [facility] Discharge instructions No data available for this section [facility] [place] Progress note No data available for this section [facility] [place] Summary Purpose Family History No Family History [...] and content) DATE CREATED AUTHOR 09/10/2021 [facility] DATE CREATED AUTHOR AUTHOR'S ORGANIZ ATION 12/24/2021 [facility] DATE CREATED AUTHOR AUTHOR'S ORGANIZ ATION 11/20/2022 [facility] DATE CREATED AUTHOR AUTHOR'S ORGANIZ ATION 05/01/2024 [facility] DATE CREATED AUTHOR AUTHOR'S ORGANIZ ATION 11/13/2024 [facility] Patient Care team informatio n (unrecognized section and content) Personnel Name: Phillip Ann MD Address: Address: [address] [place] [address] [place], [place] [address] Personnel Name: Phillip Ann MD Address: Address: [address] [place] [address] FOR RECORDS PERTAINING TO PATIENTS WHO ARE [...] BE BASED ON THE PRIMARY CLINICAL RECORDS. [facility] [employer], [facility]. provides no warranty or guarantee of the accuracy or completeness of information in this document.
== END 2024-11-28 13:04 | disposition home or self-care (01) ==
LOC: CARD 13:04
PROVIDERS: PCP Family Medicine; Visit Provider Nurse Practitioner Family
DX: R42 Dizziness and giddiness (principal); I50.32 Chronic diastolic (congestive) heart failure; R01.1 Cardiac murmur, unspecified
CPT/HCPCS: 93306

== ENCOUNTER 2024-12-09 17:24 | Emergency (ER) | payer OTHER, SELFPAY ==
--- OUTSIDE RECORDS SUMMARY | 2024-10-26 09:20 | XMS_ITS ---
Author Name Auto Generated Organization OHIP Care Team Providers Care Clerk Travel Reservations Name Role Phone CURTIS MARTINEZ Referring Unavailable CURTIS MARTINEZ Referring Unavailable CURTIS MARTINEZ Referring Unavailable CURTIS MARTINEZ Referring Unavailable CURTIS MARTINEZ Referring Unavailable JENNA PHILLIPS Attending Unavailable CURTIS MARTINEZ Referring Unavailable MANOJ, CURTIS Referring Unavailable MANOJ, CURTIS Referring Unavailable MANOJ, CURTIS Referring Unavailable GHANSHYAM, BESSIE Referring Unavailable MANOJ, CURTIS Referring Unavailable JENNA PHILLIPS Attending Unavailable MANOJ, CURTIS Attending Unavailable MANOJ, CURTIS Referring Unavailable MANOJ, CURTIS Referring Unavailable MANOJ, CURTIS Referring Unavailable Hoy, Xavi Referring Unavailable NILL, Juan Miguel Ortiz Attending Unavailable NILL, Juan Miguel Ortiz Attending Unavailable NILL, Juan Miguel Ortiz Attending Unavailable PROBLEMS DATE TYPE CONDITION / CODE ATTENDING STATUS [facility] 01/27/2023 Admitting Diagnosis Chronic diastolic (congestive) heart failure / I50.32(ICD-10) JENNA PHILLIPS [facility] 10/26/2024 Admitting Diagnosis Hypokalemia / E87.6(ICD-10) JENNA PHILLIPS [facility] 10/26/2024 Admitting Diagnosis Cardiac murmur, unspecified / R01.1(ICD-10) JENNA PHILLIPS [facility] 10/26/2024 Admitting Diagnosis Dizziness and giddiness / R42(ICD-10) JENNA PHILLIPS [facility] 10/26/2023 Admitting Diagnosis Mixed hyperlipidemia / E78.2(ICD-10) CURTIS MARTINEZ [facility] 08/11/2022 Admitting Diagnosis Unspecified atrial flutter / I48.92(ICD-10) CURTIS MARTINEZ [facility] 09/12/2024 Admitting Diagnosis Hypertensive heart disease with heart failure / I11.0(ICD-10) CURTIS MARTINEZ [facility] 09/12/2024 Admitting Diagnosis Cardiomyopathy in diseases classified elsewhere / I43(ICD-10) CURTIS MARTINEZ [facility] 09/12/2024 Admitting Diagnosis Paroxysmal atrial fibrillation / I48.0(ICD-10) CURTIS MARTINEZ [facility] 04/13/2024 Admitting Diagnosis Encounter for other preprocedural examination / Z01.818(ICD-10) JENNA PHILLIPS [facility] 12/28/2023 Admitting Diagnosis Palpitations / R00.2(ICD-10) NA Active [facility] PROCEDURES No Procedure Records Found RESULTS ABSTRACT Observed: 11/10/2024 12:00 AM Status: COMPLETED Source: [facility] [id number] Diana Alvarez 09/1970 F Date Provider Department Center 11/10/2024 GlennyMANOJ CURTIS [facility] AUTH [place] Medical C Family History Problem Relation Age of Onset Breast cancer Mother Aneurysm Mother Stroke Mother Heart attack Father Coronary artery disease Father Stroke Sister Family Status - Relation Status Age at Mother Father Alive Sister PROGRESS Observed: 10/26/2024 10:04 AM Status: COM PLETED Source: [facility] ohlli OFFICE VISIT Observed: 10/26/2024 9:20 AM Status: COMPLETED Source: [facility] [id number] Diana Alvarez 09/1970 Provider Department Center 10/26/2024 166-JENNA PHILLIPS [facility] Family History Problem Relation Age of Onset Breast cancer Mother Aneurysm Mother Stroke Mother Heart attack Father Coronary artery disease Father Stroke Sister Family Status - Relation Status Age at Mother Father Alive Sister Level of Service:69682 [place] OFFICE/OUTPATIENT ESTABLISHED MOD MDM 30 MIN Reason for Visit and Comments: Atrial Fibrillation [80] Dizziness [569521] Hypertension [931026] PROGRESS Observed: 10/26/2024 9:20 AM Status: COMPLETED Source: [facility] Cardiovascular Medicine [facility] SUBJECTIVE Chief Complaint Patient presents with Atrial Fibrillation Dizziness Hypertension Diana Alvarez is a 54 y.o. female here for follow-up. HPI PMHx: a.flutter/fib s/p loop implant 07/2021, s/p flutter ablation 08/18/2021, HFpEF, pericardial effusion noted since 2018, HTN, COPD, DM, HLD Hx LILLIANA - cannot tolerate CPAP 10/26/2024 She has been having intermittent episodes of dizziness. Her BP as been running low. One episode where her BP was 85/50 - she had accompanied dizziness. BP log from home removed. At our last visit, we had reduced her lasix to 40mg every other day. She has done well with this, no issues with weight gain, leg swelling. Denies c/o CP, dyspnea, orthopnea, PND, LE edema, palpitations, syncope. 04/13/2024 She is pending an EGD/colonoscopy for [...] trended upwards is a since seen in [facility] 04/28/2023 and was diagnosed with vertigo [...] (obstructive sleep apnea) PAF (paroxysmal atrial fibrillation) (CMS/HCC) RUQ pain Pure hypercholesterolemia Pulmonary HTN (CMS/HCC) Pericardial effusion HTN (hypertension) Hyperlipidemia Patellar bursitis Abdominal bloating Cholelithiasis Generalized abdominal pain Nausea in adult Obesity due to excess calories Positive fecal occult blood test Past Medical History: Diagnosis Date Atrial fibrillation (CMS/HCC) Atrial flutter (CMS/HCC) Hypertension Pericardial effusion Sleep apnea Family History Problem Relation Name Age of Onset Breast cancer Mother Aneurysm Mother Stroke Mother Heart attack Father Coronary artery disease Father Stroke Sister Social History Tobacco Use Smoking status: Former Types: Cigarettes Smokeless tobacco: Never Substance Use Topics Alcohol use: Yes Comment: occasional Drug use: Never Allergies Allergen Reactions Morphine Trulicity [Dulaglutide] ROS Musculoskeletal: Positive for joint pain. Neurological: Positive for dizziness and headaches. All other systems reviewed and are negative. OBJECTIVE Visit Vitals BP 120/77 (BP Location: Right arm, Patient Position: Sitting) Pulse 83 Ht 1.575 m (5' 2 ) Wt 64.4 kg (142 lb) SpO2 95% BMI 25.97 kg/m??? Smoking Status Former BSA 1.68 m??? Medications: Current Outpatient Medications: albuterol 90 mcg/actuation inhaler, INHALE 2 PUFFS BY MOUTH EVERY 4 HOURS NEEDED for 17, Disp: , Rfl: allopurinol (Zyloprim) 100 mg tablet, 1 (one) time each day at the same time., Disp: , Rfl: cholecalciferol, vitamin D3, 50 mcg (2,000 unit) capsule, 1 capsule 1 (one) time each day at the same time., Disp: , Rfl: Eliquis 5 mg tablet, Take 1 tablet (5 mg) by mouth in the morning and at bedtime., Disp: 180 tablet, Rfl: 3 ezetimibe (Zetia) 10 mg tablet, Take 1 tablet (10 mg) by mouth once daily as directed., Disp: 90 tablet, Rfl: 3 ferrous sulfate 325 (65 Fe) MG tablet, Take 1 tablet by mouth in the morning and at bedtime., Disp: , Rfl: isosorbide mononitrate ER (Imdur) 30 mg 24 hr tablet, Take 1 tablet (30 mg) by mouth once daily as directed., Disp: 90 tablet, Rfl: 3 lisinopril 20 mg tablet, Take 1 tablet (20 mg) by mouth once daily as directed., Disp: 90 tablet, Rfl: 3 metFORMIN (Glucophage) 500 mg tablet, Take 1 tablet by mouth in the morning and at bedtime., Disp: , Rfl: metoprolol succinate XL (Toprol-XL) 50 mg 24 hr tablet, Take 1 tablet (50 mg) by mouth once daily as directed. Do not crush or chew., Disp: 90 tablet, Rfl: 3 Ozempic 0.25 mg or 0.5 mg (2 mg/3 mL) pen injector, INJECT 0.25 MG SUBCUTANEOUSLY ONCE A WEEK, Disp: , Rfl: pantoprazole (ProtoNix) 40 mg EC tablet, Take 1 tablet by mouth in the morning., Disp: , Rfl: rOPINIRole (Requip) 0.5 mg tablet, TAKE 1 TABLET BY MOUTH EVERY DAY 1-3 HOURS BEFORE BEDTIME FOR 30 DAYS for 30, Disp: , Rfl: rosuvastatin (Crestor) 5 mg tablet, Take 1 tablet (5 mg) by mouth at bedtime., Disp: 90 tablet, Rfl: 3 colchicine 0.6 mg tablet, TAKE 1 TABLET AT ONSET - THEN REPEAT IN 4 HOURS IF NEEDED ONCE for 90, Disp: , Rfl: cyclobenzaprine (Flexeril) 10 mg tablet, TAKE 1 TABLET BY MOUTH EVERY 8 HOURS NEEDED FOR MUSCLE SPASM, Disp: , Rfl: dilTIAZem CD (Cardizem CD) 240 mg 24 hr capsule, TAKE 1 CAPSULE BY MOUTH EVERY DAY DIRECTED (Patient not taking: Reported on 10/26/2024), Disp: 90 capsule, Rfl: 3 furosemide (Lasix) 20 mg tablet, Take 1 tablet (20 mg) by mouth every other day., Disp: 45 tablet, Rfl: 3 lisinopril 5 mg tablet, Take 1 tablet (5 mg) by mouth in the morning. (Patient not taking: Reported on 10/26/2024), Disp: 90 tablet, Rfl: 3 potassium chloride CR (Klor-Con) 10 mEq ER tablet, Take 1 tablet (10 mEq) by mouth in the morning., Disp: 90 tablet, Rfl: 1 Physical Exam Vitals reviewed. Constitutional: Appearance: Normal appearance. She is obese. HENT: Head: Normocephalic and atraumatic. Right Ear: External ear normal. Left Ear: External ear normal. Eyes: Extraocular Movements: Extraocular movements intact. Conjunctiva/sclera: Conjunctivae normal. Pupils: Pupils are equal, round, and reactive to light. Neck: Vascular: No carotid bruit. Cardiovascular: Rate and Rhythm: Normal rate and regular rhythm. Pulses: Normal pulses. Heart sounds: Murmur heard. Pulmonary: Effort: Pulmonary effort is normal. Breath sounds: Normal breath sounds. Abdominal: General: Bowel sounds are normal. Palpations: Abdomen is soft. Musculoskeletal: Cervical back: Neck supple. Right lower leg: No edema. Left lower leg: No edema. Skin: General: Skin is warm and dry. Neurological: General: No focal deficit present. Mental Status: She is alert and oriented to person, place, and time. Psychiatric: Mood and Affect: Mood normal. Behavior: Behavior normal. Thought Content: Thought content normal. Judgment: Judgment normal. Labs: Ancillary Procedure on 03/06/2024 Component Date Value Ref Range Status BSA 04/17/2024 1.83 m2 In process Lab Results Component Value Date BNP 259 (H) 04/10/2021 09/15/2024 Hgb 11.4, plt 306 Cr 1.14, BUN 14, K 3.3, Na 142, eGFR 49, AST 13, ALT 11 NTproBNP 152 hgbA1c 5.5 Chol 132, trig 175, LDL 53, HDL 44 09/14/23 Hgb 13.4, hct42.6, plat 275 Cr 0.77, BUN 16, K 4, Na 141, eGFR >60, AST 19, ALT 26 Chol 153, trig 196, LDL 58, HDL 56 TSH 2.214 hgbA1c 6.1 04/28/2023 CBC unremarkable, sodium 135, K4, chloride 100 CO2 25.8, BUN 26, creatinine 0.83, GFR greater than 60 05/05/2023 lipids show Triglycerides 357, total cholesterol 204, LDL 91, VLDL 71, HDL 42 lipids 05/05/2023 show Triglycerides 357, total cholesterol 204, LDL 91, VLDL 71, HDL 42 10/28/2022 CBC unremarkable, sodium 143, K3.3, BUN 12, creatinine 0.85, GFR greater than 60, CRP 1.3, uric acid 7.8 09/09/2022 labs reviewed sodium 138, K4.2, BUN 12, creatinine 0.83, GFR greater than 60, cholesterol 308, HDL 46, triglyceride 247, LDL 212, unremarkable TSH and liver function Testing/Procedures: ECHO 12/20/2023 Echocardiogram performed on 09/04/2021 reveals EF of 55% , grade III DD, mildly elevated right sided pressures with RVSP 44, small pericardial effusion Echocardiogram performed on 08/18/2021 showed EF of 60 to 70% with a small pericardial effusion NHUNG performed on 04/12/2021 showed EF of 55 to 60% prior to cardioversion RHC on 01/30/2021 Normal cardiac output and index NM stress test 2018 No evidence of ischemia ASSESSMENT/PLAN: Diagnoses and all orders for this visit: Chronic diastolic heart failure (CMS/HCC) - furosemide (Lasix) 20 mg tablet; Take 1 tablet (20 mg) by mouth every other day. - Basic metabolic panel; Future - Transthoracic echo (TTE) complete; Future Hypokalemia - potassium chloride CR (Klor-Con) 10 mEq ER tablet; Take 1 tablet (10 mEq) by mouth in the morning. - Basic metabolic panel; Future Murmur, heart - Transthoracic echo (TTE) complete; Future Dizziness - Transthoracic echo (TTE) complete; Future Typical atrial flutter (CMS/HCC) Mixed hyperlipidemia Benign hypertensive cardiomyopathy with heart failure (CMS/HCC) Chronic obstructive pulmonary disease, unspecified COPD type (CMS/HCC) Pericardial effusion #Dizziness #Hypotension -Reviewed her LOOP monitor reports, no recent events -Low home BP readings -Will hold her imdur and have her continue monitoring her BP. She will call us in 2 weeks for an update on her BP readings. #Murmur -New on exam today -ECHO ordered #Atrial flutter: s/p aflutter ablation and LOOP implant 07/2021 -LOOP monitor in place for AF monitoring -Denies sx's. Currently having issues with melena, getting evaluated by GI. -Continue Eliquis 5mg BID. -LOOP recorder has reached [place]. She would like it replaced. Order placed. #Sinus bradycardia -Episodes of nocturnal bradycardia on LOOP likely from LILLIANA -She is unable to tolerate CPAP -Continue to monitor #Essential hypertension -Controlled, recent issues with hypotension, see med changes above. -Continue lisinopril, Toprol. #Chronic diastolic heart failure NYHA II #Hypokalemia -Currently compensated/euvolemic on exam. -Her recent labs showed some mild renal impairment with eGFR at 49 and was previously normal. K was also at 3.3. -Will reduce lasix to 20mg every other daily. Will resume Kcl at 10mEq daily. Follow-up BMP in 1 month. -Educated patient on s/s of fluid overload and when to call clinic. #Pericardial effusion: -Small; has been present since 2018 -Still noted on 12/2023 ECHO #Palpitations -No recent issues. -Continue BB. #HLD -Controlled overall per 08/2023 labs, LDL 56 -Continue crestor 5mg daily -Triglycerides were elevated, 196. Discussed watching carb and sugar intake, she does not drink ETOH. #Chronic obstructive lung disease -Management per PCP #Obesity -Congratulated her weight loss efforts ADDENDUM: -We discussed the risks/benefits of the LOOP recorder replacement procedure. Risks including but not limited to bleeding, infection, device malfunction, reaction to the device. Benefits including monitoring for a.fib and/or flutter or any other arrhythmias. Pt states understanding and would like to proceed with the procedure. Follow up in about 3 months (around 01/25/2025). Jenna Phillips CNP [facility] 37 Observed: 10/26/2024 9:20 AM Status: COMPLETED Source: [facility] *We will decrease your lasix to 20mg every other day. *Hold your isosorbide and continue to monitor your blood pressure. Call us in 2 weeks with your readings. *Your last labs showed potassium was low at 3.3. Will order for potassium supplement 10mEq daily. *Repeat labs in 1 month. PROGRESS Observed: 10/26/2024 9:20 AM Status: COMPLETED Source: [facility] Patient here for complaints of hypotension, dizziness. Patient denies chest pain, SOB, leg swelling. Patient states she feels really good expect for the dizzy spells. Review of Systems Musculoskeletal: Positive for joint pain. Neurological: Positive for dizziness and headaches. ORDERS ONLY Observed: 10/26/2024 12:00 AM Status: COMPLETED Source: [facility] [id number] Diana Alvarez Brodie 09/1970 F Date Provider Department Center 10/26/2024 Hilario-MARVIN MCCLENDON [facility] Family History Problem Relation Age of Onset Breast cancer Mother Aneurysm Mother Stroke Mother Heart attack Father Coronary artery disease Father Stroke Sister Family Status - Relation Status Age at Mother Father Alive Sister FOLLOW-UP Observed: 09/12/2024 9:30 AM Status: COMPLETED Source: [facility] [id number] Diana Alvarez Brodie Date Provider Department Center 09/12/2024 CURTIS VALDES TISH [facility] Family History Problem Relation Age of Onset Breast cancer Mother Aneurysm Mother Stroke Mother Heart attack Father Coronary artery disease Father Family Status - Relation Status Age at Mother Father Level of Service:45575 [place] OFFICE/OUTPATIENT ESTABLISHED LOW MDM 20 MIN PROGRESS Observed: 09/12/2024 9:30 AM Status: COMPLETED Source: [facility] Cardiology Consult Note Reason for visit: Palpitations, follow up, [...] trended upwards is a since seen in [facility] 04/28/2023 and was diagnosed with [...] Connections: Not on file Intimate Partner Violence: Unknown (09/09/2023) [place] Safety [employer] [place] Fear of Current or Ex-Partner: Not on file Emotionally Abused: Not on file Physically Abused: Not on file Sexually Abused: Not on file Physically or Sexually Abused: Not on file Depression: Not on file Housing Stability: Not on file Utilities: Not on file Health Literacy: Not on file Allergies: Allergies Allergen Reactions Morphine Trulicity [Dulaglutide] Weight: 67.1kg Vitals: 09/12/24 0941 BP: 116/69 Pulse: 78 SpO2: 95% Meds: Current Outpatient Medications on File Prior to Visit Medication Sig Dispense Refill albuterol 90 mcg/actuation inhaler INHALE 2 PUFFS BY MOUTH EVERY 4 HOURS NEEDED for 17 allopurinol (Zyloprim) 100 mg tablet 1 (one) time each day at the same time. cholecalciferol, vitamin D3, 50 mcg (2,000 unit) capsule 1 capsule 1 (one) time each day at the same time. colchicine 0.6 mg tablet TAKE 1 TABLET AT ONSET - THEN REPEAT IN 4 HOURS IF NEEDED ONCE for 90 cyclobenzaprine (Flexeril) 10 mg tablet TAKE 1 TABLET BY MOUTH EVERY 8 HOURS NEEDED FOR MUSCLE SPASM dilTIAZem CD (Cardizem CD) 240 mg 24 hr capsule Take 1 capsule (240 mg) by mouth once daily as directed. 90 capsule 3 Eliquis 5 mg tablet Take 1 tablet (5 mg) by mouth in the morning and at bedtime. 180 tablet 3 ezetimibe (Zetia) 10 mg tablet Take 1 tablet (10 mg) by mouth once daily as directed. 90 tablet 3 ferrous sulfate 325 (65 Fe) MG tablet Take 1 tablet by mouth in the morning and at bedtime. furosemide (Lasix) 40 mg tablet Take 1 tablet (40 mg) by mouth in the morning. (Patient taking differently: Take 40 mg by mouth every other day.) 90 tablet 3 isosorbide mononitrate ER (Imdur) 30 mg 24 hr tablet Take 1 tablet (30 mg) by mouth once daily as directed. 90 tablet 3 lisinopril 5 mg tablet Take 1 tablet (5 mg) by mouth in the morning. 90 tablet 3 metFORMIN (Glucophage) 500 mg tablet Take 1 tablet by mouth in the morning and at bedtime. metoprolol succinate XL (Toprol-XL) 50 mg 24 hr tablet Take 1 tablet (50 mg) by mouth once daily as directed. Do not crush or chew. 90 tablet 3 Ozempic 0.25 mg or 0.5 mg (2 mg/3 mL) pen injector INJECT 0.25 MG SUBCUTANEOUSLY ONCE A WEEK pantoprazole (ProtoNix) 40 mg EC tablet Take 1 tablet by mouth in the morning. rOPINIRole (Requip) 0.5 mg tablet TAKE 1 TABLET BY MOUTH EVERY DAY 1-3 HOURS BEFORE BEDTIME FOR 30 DAYS for 30 rosuvastatin (Crestor) 5 mg tablet Take 1 tablet (5 mg) by mouth at bedtime. 90 tablet 3 potassium chloride CR (K-Tab) 20 mEq ER tablet Take 1 tablet (20 mEq) by mouth in the morning and at bedtime. (Patient not taking: Reported on 09/12/2024) 180 tablet 3 No current facility-administered medications on file prior to visit. ROS: Review of Systems Respiratory: Positive for cough. Musculoskeletal: Positive for joint pain, joint swelling and myalgias. Neurological: Positive for headaches, light-headedness and vertigo. All other systems [...] Cardiovascular Rate And Rhythm: regular Heart Sounds: normal S1, normal s2, no gallop Systolic Murmur: not heard Diastolic Murmur: not heard Extremities: no cyanosis, no edema, no peripheral signs of emboli Peripheral Pulses Radial Pulse: normal Abdomen Inspection and Palpation: soft, non distended, no bruit, non tender Musculoskeletal Inspection: no joint swelling Neurologic Gait: normal gait Skin Inspection and Palpation: warm and dry Nails: no clubbing Labs: 04/28/2023 CBC unremarkable, sodium 135, K4, chloride 100 CO2 25.8, BUN 26, creatinine 0.83, GFR greater than 60 05/05/2023 lipids show Triglycerides 357, total cholesterol 204, LDL 91, VLDL 71, HDL 42 10/28/2022 CBC unremarkable, sodium 143, K3.3, BUN 12, creatinine 0.85, GFR greater than 60, CRP 1.3, uric acid 7.8 09/09/2022 labs reviewed sodium 138, K4.2, BUN 12, creatinine 0.83, GFR greater than 60, cholesterol 308, HDL 46, triglyceride 247, LDL 212, unremarkable TSH and liver function EKG: No results found for this or any previous visit (from the past 4464 hour(s)). Echo: Echocardiogram performed on 09/04/2021 reveals EF of 55% Echocardiogram performed on 08/18/2021 showed EF of 60 to 70% with a small pericardial effusion NHUNG performed on 04/12/2021 showed EF of 55 to 60% prior to cardioversion Stress test: Coronary angiogram: Cardiac cath on 01/30/2021 Normal cardiac output and index Diagnostic Imaging: No images are attached to the encounter. Assessment and Plan: - Atrial flutter: s/p ablation and being monitored for AF. - sinus bradycardia: nocturnal pause likely from LILLIANA> Adv treatment and review with loop - essential hypertension: continue meds as well controlled. Would recommend to avoid polypharmacy and change from diltiazem 240 mg to increasing lisinopril to lisinopril 20 mg twice daily and keep a blood pressure log - chronic obstructive lung disease - chronic diastolic heart failure NYHA II: Currently compensated/euvolemic on exam. Educated patient on s/s of fluid overload and when to call clinic. Continue lasix 40mg daily - pericardial effusion: Small; has been present since 2018 - palpitations: 7 beat run of NSVT on Holter. Continue BB - Loop recorder: No AF seen, she does have a lot of noted VT which are just over sensing T waves. She had 1 nocturnal bradycardic episode that lasted 5 seconds since she was last seen Curtis Martinez MD Cardiac Electrophysiology [facility] REMINDERS Observed: 04/20/2024 11:34 AM Status: F Source: [facility] Reminders From: Jacqueline Huerta LPN To: N - Clinical; Sent: 04/20/2024 11:34:18 EDT Show up: 03/20/2034 07:00:00 EDT Subject: colonoscopy recall Due Date/Time: 04/19/2034 07:00:00 EDT Reminder/Recall Patient due for screening colonoscopy 04/19/2034. PROGRESS Observed: 04/13/2024 9:20 AM Status: COMPLETED Source: [facility] Cardiovascular Medicine [facility] SUBJECTIVE Chief Complaint Patient presents with [...] trended upwards is a since seen in [facility] 04/28/2023 and was diagnosed with vertigo [...] (obstructive sleep apnea) PAF (paroxysmal atrial fibrillation) (CMS/HCC) RUQ pain Pure hypercholesterolemia Pulmonary HTN (CMS/HCC) Pericardial effusion HTN (hypertension) Hyperlipidemia Patellar bursitis Abdominal bloating Cholelithiasis Generalized abdominal pain Nausea in adult Obesity due to excess calories Positive fecal occult blood test Past Medical History: Diagnosis Date Atrial fibrillation (CMS/HCC) Atrial flutter (CMS/HCC) Hypertension Pericardial effusion Sleep apnea Family History Problem Relation Name Age of Onset Breast cancer Mother Aneurysm Mother Stroke Mother Heart attack Father Coronary artery disease Father Social History Tobacco Use Smoking status: Former Types: Cigarettes Smokeless tobacco: Never Substance Use Topics Alcohol use: Not Currently Allergies Allergen Reactions Morphine Trulicity [Dulaglutide] ROS Cardiovascular: Positive for dyspnea on exertion (related to URI). Respiratory: Positive for cough. Musculoskeletal: Positive for joint pain, joint swelling and myalgias. Neurological: Positive for headaches and vertigo. All other systems reviewed and are negative. OBJECTIVE Visit Vitals BP 112/70 (BP Location: Left arm, Patient Position: Sitting) Pulse 69 Ht 1.575 m (5' 2 ) Wt 76.7 kg (169 lb) SpO2 96% BMI 30.91 kg/m??? Smoking Status Former BSA 1.83 m??? Medications: Current Outpatient Medications: albuterol 90 mcg/actuation inhaler, INHALE 2 PUFFS BY MOUTH EVERY 4 HOURS NEEDED for 17, Disp: , Rfl: allopurinol (Zyloprim) 100 mg tablet, 1 (one) time each day at the same time., Disp: , Rfl: cholecalciferol, vitamin D3, 50 mcg (2,000 unit) capsule, 1 capsule 1 (one) time each day at the same time., Disp: , Rfl: colchicine 0.6 mg tablet, TAKE 1 TABLET AT ONSET - THEN REPEAT IN 4 HOURS IF NEEDED ONCE for 90, Disp: , Rfl: cyclobenzaprine (Flexeril) 10 mg tablet, TAKE 1 TABLET BY MOUTH EVERY 8 HOURS NEEDED FOR MUSCLE SPASM, Disp: , Rfl: dilTIAZem CD (Cardizem CD) 240 mg 24 hr capsule, Take 1 capsule (240 mg) by mouth once daily as directed., Disp: 90 capsule, Rfl: 3 Eliquis 5 mg tablet, Take 1 tablet (5 mg) by mouth in the morning and at bedtime., Disp: 180 tablet, Rfl: 3 ezetimibe (Zetia) 10 mg tablet, Take 1 tablet (10 mg) by mouth once daily as directed., Disp: 90 tablet, Rfl: 3 ferrous sulfate 325 (65 Fe) MG tablet, Take 1 tablet by mouth in the morning and at bedtime., Disp: , Rfl: furosemide (Lasix) 40 mg tablet, Take 1 tablet (40 mg) by mouth in the morning., Disp: 90 tablet, Rfl: 3 isosorbide mononitrate ER (Imdur) 30 mg 24 hr tablet, Take 1 tablet (30 mg) by mouth once daily as directed., Disp: 90 tablet, Rfl: 3 lisinopril 5 mg tablet, Take 1 tablet (5 mg) by mouth in the morning., Disp: 90 tablet, Rfl: 3 metFORMIN (Glucophage) 500 mg tablet, Take 1 tablet by mouth in the morning and at bedtime., Disp: , Rfl: metoprolol succinate XL (Toprol-XL) 50 mg 24 hr tablet, Take 1 tablet (50 mg) by mouth once daily as directed. Do not crush or chew., Disp: 90 tablet, Rfl: 3 Ozempic 0.25 mg or 0.5 mg (2 mg/3 mL) pen injector, INJECT 0.25 MG SUBCUTANEOUSLY ONCE A WEEK, Disp: , Rfl: pantoprazole (ProtoNix) 40 mg EC tablet, Take 1 tablet by mouth in the morning., Disp: , Rfl: potassium chloride CR (K-Tab) 20 mEq ER tablet, Take 1 tablet (20 mEq) by mouth in the morning and at bedtime., Disp: 180 tablet, Rfl: 3 rOPINIRole (Requip) 0.5 mg tablet, TAKE 1 TABLET BY MOUTH EVERY DAY 1-3 HOURS BEFORE BEDTIME FOR 30 DAYS for 30, Disp: , Rfl: rosuvastatin (Crestor) 5 mg tablet, Take 1 tablet (5 mg) by mouth at bedtime., Disp: 90 tablet, Rfl: 3 Physical Exam Vitals reviewed. Constitutional: Appearance: Normal appearance. She is obese. HENT: Head: Normocephalic and atraumatic. Right Ear: External ear normal. Left Ear: External ear normal. Eyes: Extraocular Movements: Extraocular movements intact. Conjunctiva/sclera: Conjunctivae normal. Pupils: Pupils are equal, round, and reactive to light. Neck: Vascular: No carotid bruit. Cardiovascular: Rate and Rhythm: Normal rate and regular rhythm. Pulses: Normal pulses. Heart sounds: Murmur heard. Pulmonary: Effort: Pulmonary effort is normal. Breath sounds: Normal breath sounds. Abdominal: General: Bowel sounds are normal. Palpations: Abdomen is soft. Musculoskeletal: Cervical back: Neck supple. Right lower leg: No edema. Left lower leg: No edema. Skin: General: Skin is warm and dry. Neurological: General: No focal deficit present. Mental Status: She is alert and oriented to person, place, and time. Psychiatric: Mood and Affect: Mood normal. Behavior: Behavior normal. Thought Content: Thought content normal. Judgment: Judgment normal. Labs: Ancillary Procedure on 10/18/2023 Component Date Value Ref Range Status BSA 12/28/2023 1.99 m2 In process Lab Results Component Value Date BNP 259 (H) 04/10/2021 09/14/23 Hgb 13.4, hct42.6, plat 275 Cr 0.77, BUN 16, K 4, Na 141, eGFR >60, AST 19, ALT 26 Chol 153, trig 196, LDL 58, HDL 56 TSH 2.214 hgbA1c 6.1 04/28/2023 CBC unremarkable, sodium 135, K4, chloride 100 CO2 25.8, BUN 26, creatinine 0.83, GFR greater than 60 05/05/2023 lipids show Triglycerides 357, total cholesterol 204, LDL 91, VLDL 71, HDL 42 lipids 05/05/2023 show Triglycerides 357, total cholesterol 204, LDL 91, VLDL 71, HDL 42 10/28/2022 CBC unremarkable, sodium 143, K3.3, BUN 12, creatinine 0.85, GFR greater than 60, CRP 1.3, uric acid 7.8 09/09/2022 labs reviewed sodium 138, K4.2, BUN 12, creatinine 0.83, GFR greater than 60, cholesterol 308, HDL 46, triglyceride 247, LDL 212, unremarkable TSH and liver function Testing/Procedures: ECHO 12/20/2023 Echocardiogram performed on 09/04/2021 reveals EF of 55% , grade III DD, mildly elevated right sided pressures with RVSP 44, small pericardial effusion Echocardiogram performed on 08/18/2021 showed EF of 60 to 70% with a small pericardial effusion NHUNG performed on 04/12/2021 showed EF of 55 to 60% prior to cardioversion RHC on 01/30/2021 Normal cardiac output and index NM stress test 2019 No evidence of ischemia ASSESSMENT/PLAN: Diagnoses and all orders for this visit: Paroxysmal atrial fibrillation (CMS/HCC) Pre-op evaluation - ECG 12 lead Benign hypertensive cardiomyopathy with heart failure (CMS/HCC) Chronic diastolic heart failure (CMS/HCC) Atrial flutter, unspecified type (CMS/HCC) Mixed hyperlipidemia LILLIANA (obstructive sleep apnea) #Atrial flutter: s/p aflutter ablation and LOOP implant 07/2021 -LOOP monitor in place for AF monitoring -Denies sx's. Currently having issues with melena, getting evaluated by GI. -Continue Eliquis 5mg BID. #Sinus bradycardia -Episodes of nocturnal bradycardia on LOOP likely from LILLIANA -She is unable to tolerate CPAP -Continue to monitor #Essential hypertension -Well controlled -Continue diltiazem, lisinopril, Toprol #Chronic diastolic heart failure NYHA II -Currently compensated/euvolemic on exam. -She c/o orthostatic dizziness. BP is well controlled and she had hyperdynamic LVEF on her most recent ECHO. -Will reduce lasix to 20mg daily. Consider changing to PRN if she does well with this. -Educated patient on s/s of fluid overload and when to call clinic. #Pericardial effusion: -Small; has been present since 2018 -Still noted on 12/2023 ECHO #Palpitations: -7 beat run of NSVT on Holter. Continue BB #HLD -Controlled overall per 08/2023 labs, LDL 56 -Continue crestor 5mg daily -Triglycerides were elevated, 196. Discussed watching carb and sugar intake, she does not drink ETOH. #Chronic obstructive lung disease -Management per PCP #Cardiac risk stratification -RCRI: 1 points, Class II Risk, 6.0 % 30-day risk of , LA, or cardiac arrest -ECHO 12/2023: preserved LVEF -EKG today shows SR, no ischemic changes -She reports METS >4. -No s/s of heart failure exacerbation on exam. -Patient is low risk for cardiovascular event for low risk procedure. No objections for GI procedures from cardiac standpoint. -Okay to hold Eliquis 2 days prior and resume as soon as cleared by surgeon. #Obesity -Congratulated her weight loss efforts Follow up in about 6 months (around 10/11/2024). Jenna Phillips NP [facility] OFFICE VISIT Observed: 04/13/2024 9:20 AM Status: COMPLETED Source: [facility] [id number] Diana Alvarez 09/1970 F Date Provider Department Center 04/13/2024 166-JENNA PHILLIPS TISH [facility] Family History Problem Relation Age of Onset Breast cancer Mother Aneurysm Mother Stroke Mother Heart attack Father Coronary artery disease Father Family Status - Relation Status Age at Mother Father Level of Service:67209 [facility] OFFICE/OUTPATIENT ESTABLISHED MOD MDM 30 MIN Reason for Visit and Comments: Pre-op Exam [471944] Atrial Fibrillation [80] Hypertension [625928] PROGRESS Observed: 04/13/2024 9:20 AM Status: COMPLETED Source: [facility] Patient here for 6 mo follow up atrial flutter, cardiomyopathy, and CHF. [...] All other systems reviewed and are negative. GENERAL SURGERY OFFICE/CLINI C NOTE Observed: 04/04/2024 5:16 PM Status: F Source: [facility] General Surgery Office/Clini c Note Chief Complaint consultation for RUQ pain [...] pain Gout History of pericarditis HTN (hypertension) Hypercholesteremia Hypertriglyceridemia IBS (irritable bowel syndrome) Insomnia Low back pain syndrome Migraines Mild aortic stenosis Nausea in adult Obesity due to excess calories LILLIANA (obstructive sleep apnea) PAF (paroxysmal atrial fibrillation) Pericardial effusion Positive fecal occult blood test Pulmonary HTN Pure hypercholesterolemia RUQ pain Historical No qualifying data Procedure/Surgical History section, section, Excision of cyst of breast, History of cardiac radiofrequency ablation, Implantation of insertable loop recorder, Nasal endoscopy, Tubal ligation. Medications albuterol 0.083% Inh Valeria 3 mL, 2.5 mg= 3 mL, NEB, Daily allopurinol 100 mg Tab, 100 mg= 1 tab(s), Oral, Daily colchicine 0.6 mg Tab, as directed DilTIAZem (Eqv-Cardizem CD) 240 mg/24 hours oral capsule, extended release, 240 mg= 1 cap(s), Oral, Daily Eliquis 5 mg oral tablet, 5 mg= 1 tab(s), Oral, BID ferrous sulfate 325 mg Tab, 325 mg= 1 tab(s), Oral, BID isosorbide mononitrate 30 mg ER Tab, 30 mg= 1 tab(s), Oral, qAM lancets, glucometer, alcohol swabs, testing strips, insulin pen needles, 0 Levsin 0.125 mg SL Tab, 0.125 mg= 1 tab(s), Oral, QID, PRN lisinopril 5 mg Tab, 5 mg= 1 tab(s), Oral, Daily metformin 500 mg Tab, 500 mg= 1 tab(s), Oral, BID Metoprolol succinate 50 mg ER Tablet, 50 mg, Oral, Daily ondansetron 4 mg Dis Tab, 4 mg= 1 tab(s), Oral, TID, PRN Ozempic 8 mg/3 mL (2 mg dose) subcutaneous solution, 2 mg, SubCutaneous, qWeek Pantoprazole [address] Tab, 40 mg= 1 tab(s), Oral, Daily potassium chloride 20 mEq ER Tab, 20 mEq= 1 tab(s), Oral, BID Pro-Air HFA CFC free 90 mcg/inh MDI, 2 puff(s), Inhalation, Once, PRN ropinirole 0.5 mg Tab, 0.5 mg= 1 tab(s), Oral, Daily tiZANidine 4 mg Tab, 8 mg= 2 tab(s), Oral, Bedtime Vitamin D3 2000 intl units oral Tab, 50 mcg, Oral, Daily Zetia 10 mg Tab, 10 mg= 1 tab(s), Oral, Daily Allergies morphine (Nervousness, Tachycardia) Social History Alcohol - Denies Alcohol Use, 08/19/2021 Substance Abuse - Denies Substance Abuse, 08/19/2021 Tobacco - Denies Tobacco Use, 08/19/2021 Former smoker, quit more than 30 days ago Tobacco Use:. Never Smokeless Tobacco Use:. Cigarettes, 1.5 per day. Started age 15.0 Years. Stopped age 47 Years., 04/04/2024 Family History Heart disease: Father and Brother. Hypertension: Mother, Sister and Brother. Hypothyroidism: Mother. Primary malignant neoplasm of female breast: Mother. Renal failure syndrome: Father. Stroke: Sister. Immunizations Vaccine Date Status Comments influenza virus vaccine, inactivated 04/2022 Recorded SARS-CoV-2 (COVID-19) mRNA-1273 vaccine 10/29/2020 Recorded SARS-CoV-2 (COVID-19) mRNA BNT-162b2 vax 10/25/2020 Recorded 2022-09-03: TPV50 SARS-CoV-2 (COVID-19) mRNA BNT-162b2 vax 10/24/2020 Recorded SARS-CoV-2 (COVID-19) mRNA BNT-162b2 vax 10/04/2020 Recorded 2022-09-03: TPV50 SARS-CoV-2 (COVID-19) mRNA BNT-162b2 vax 10/03/2020 Recorded Result Comment: Electronical ly Signed By: BRAD DIAZ, Juan Miguel Ortiz\.br\Date and Time Signed: 04/04/24 17:16 EDT AMBULATORY VISIT SUMMARY Observed: 04/04 2:28 PM Status: F Source: [facility] Ambulatory Visit Summary DIANA ALVAREZ :1970 Visit Date:04/04/2024 Ambulatory Visit Instructions Your Care Team Attending Physician - BRAD DIAZ, Juan Miguel Ortiz Primary Care Physician - Xavi Ann MD This Is Your Medications List [...] that you are currently receiving treatment for. Abdominal bloating Atrial flutter BMI 31.0-31.9,adult Cervical disc disease Chronic diastolic heart failure Chronic obstructive pulmonary disease Cystic kidney disease Depression Diabetes Diverticulosis Epigastric pain Fibrocystic disease of breast Generalized abdominal pain Gout History of pericarditis HTN (hypertension) Hypercholesteremia Hypertriglyceridemia IBS (irritable bowel syndrome) Insomnia Low back pain syndrome Migraines Mild aortic stenosis Nausea in adult Obesity due to excess calories LILLIANA (obstructive sleep apnea) PAF (paroxysmal atrial fibrillation) Pericardial effusion Pulmonary HTN Pure hypercholesterolemia RUQ pain Patient Survey You may receive a survey via text or e-mail asking about your office visit. Please share your experience with us by completing your survey. We appreciate your feedback and thank you for choosing us for your care. 36 Observed: 01/12/2024 11:31 AM Status: COMPLETED Source: [facility] BP is elevated. I encourage diet and routine exercise which can help her BP. In the mean time, would like to start her on lisinopril 5mg daily with follow-up BMP in 2 weeks. Thanks! 36 Observed: 01/11/2024 9:42 AM Status: COMPLETED Source: [facility] Pt calling with bp's 156/83 133/78 147/80 146/78 157/72 148/80 120/80 36 Observed: 12/23/2023 12:58 PM Status: COMPLETED Source: [facility] Regarding echo performed on 12/20/2023: NILDA Ruelas [...] few weeks with readings. She verbalized understanding. TELEPHONE Observed: 12/23/2023 12:00 AM Status: COMPLETED Source: [facility] [id number] Diana Alvarez 09/1970 F Date Provider Department Center 12/23/2023 Nayana-MIGUEL FERMIN Family History Problem Relation Age of Onset Breast cancer Mother Aneurysm Mother Stroke Mother Heart attack Father Coronary artery disease Father Family Status - Relation Status Age at Mother Father ALLERGIES DATE TYPE / CODE NAME / CODE REACTION SEVERITY SOURCE 05/05/2023 DRUG INGREDI/4195 69602(SNOMED CT) DULAGLUTIDE [facility] 08/11/2022 DRUG INGREDI/4195 56504(SNOMED CT) MORPHINE [facility] /[id number] (SNOMED CT) morphine [id number] 10 [facility] [id number] (SNOMED CT) No Known Allergies [facility] [id number] (SNOMED CT) No Known Medication Allergies [facility] ENCOUNTERS ADMIT/DISCHARGE ACCOUNT NUMBER ADMITTING ENCOUNTER CLASS LOCATION SOURCE 10/26/2024/ 5 [id number] Ambulatory Building:[facility] 10/18/2024 [id number] Ambulatory Building:[facility] 09/12/2024/ 5 [id number] Ambulatory Building:[facility] 06/09/2024 [id number] Ambulatory Building:[facility] 05/24/2024 [id number] Ambulatory Building:[facility] 04/19/2024/ 4 [id number] Ambulatory CD:[id number] 7Building:CD :[id number] [facility] 04/17/2024 [id number] Ambulatory Building:[facility] 04/13/2024/ 4 [id number] Ambulatory Building:[facility] 04/04/2024/ 4 [id number] Ambulatory GS Lotus ding:LIO Rhodes : Exam [address] [facility] 01/11/2024 [id number] Ambulatory Building:[facility] 12/28/2023 [id number] Ambulatory Building:[facility] 12/28/2023 [id number] Ambulatory Building:[facility] 12/28/2023 [id number] Ambulatory Building:[facility] 12/28/2023 [id number] Ambulatory Building:[facility] 12/28/2023 [id number] Ambulatory Building:[facility] 12/28/2023 [id number] Ambulatory Building:[facility] 12/28/2023 [id number] Ambulatory Building:[facility] 12/28/2023 [id number] Ambulatory Building:[facility] 12/28/2023 [id number] Ambulatory Building:[facility] 08/25/2022 [id number] Ambulatory LIO Gautam ding:LIO Red [facility] PAYERS ENCOUNTER GUARANTOR PAYER SUBSCRIBER SOURCE 10/26/2024 Primary Insurance:[employer] CEPolicy Number: [id number] ve Date:2024-09-12 DIANA Calloway EBERLEDOB: [id number] [place] [address] [facility] 09/12/2024 Primary Insurance:[employer]ES[employer] CEPolicy Number: [id number] ve Date:2024-09-12 DIANA Calloway EBERLEDOB: [id number] [place] [address] [facility] 06/09/2024 Primary Insurance:[employer] CEPolicy Number: [id number] ve Date:2023-10-26 DIANA Calloway EBERLEDOB: [id number] [place] [address] [facility] 04/19/2024 DIANA Calloway EBERLEDOB: HETER STTel: ~~(41 (HP) Primary Insurance:CARESOUR CEPolicy Number: [id number] ve Date:9821-79-89[address], [place] [address]PK: DIANA S ROZ [facility] 04/13/2024 Primary Insurance:CARESOUR CEPolicy Number: [id number] ve Date:2023-10-26 DIANA Calloway EBERLEDOB: [id number] [place] [address] [facility] 04/04/2024 DIANA Calloway EBERLEDOB: HETER STTel: ~~(41 (HP) Primary Insurance:CARESOUR CEPolicy Number: [id number] ve Date:1881-25-63[address]X [address], [place] [address]Y[facility] DIANA Calloway EBERLEDOB: HETER STTel: ~~(41 (HP) Primary Insurance:AnthemPo licy Number: [id number] amber Date:[id number], [place] [address]KK: DIANA S [facility] 08/25/2022 Secondary Insurance:Medicaid Policy Number: [id number] amber Date:8864-23-44TY [address], [place] [address]XX: DIANA S [facility]
[2024-12-09 17:31] VITALS: BP 130/74; PULSE 74; TEMP 36.6; O2SAT 99; BMI 24.7
--- NOTE | 2024-12-09 17:42 | CT_ITS ---
The [place] [id number] Patient Name: LEIGHANN TALAMANTES MRN: [id number] date: 1970 Sex: F Assigned Patient Location: ER Current Patient Location: ER Accession/Order Number: [id number] Exam Date: 12/09/2024 18:21 Report Date: 12/09/2024 18:28 At the request of: AMRIK LOVE MD Procedure: CT head/brain wo con CT head/brain wo con 12/09/2024 6:19 PM SIGNS AND SYMPTOMS: ^Head injury, headache, dizziness, photosensitivity TECHNIQUE:Multi-detector CT axial slices of the brain were obtained without IV contrast. CT was performed with one or more of the following dose reduction techniques: Automated exposure control, adjustment of the mA and/or kV according to patient size, or use of iterative reconstruction technique. COMPARISON: 04/28/2023. FINDINGS: There is no shift of the midline structures, acute intracranial bleeding, mass effects, or evidence of acute ischemia. The ventricular system is normal in size. The brainstem and the cerebellum are unremarkable. The visualized intraorbital contents, the visualized paranasal sinuses, and the infratemporal soft tissues show no acute abnormality. The osseous structures in the skull base and the calvarium show no abnormality. There is a small subcutaneous scalp hematoma near the vertex. CT/CT head/brain wo con IMPRESSION: No acute intracranial pathology. There is a subcutaneous scalp hematoma near the vertex. Impression dictated by: Arturo Rodriguez M.D. 12/09/2024 6:28 PM Dictation Location[facility] Electron[facility] authenticated by: [id number] Y Date: 12/09/2024 18:28
--- NOTE | 2024-12-09 17:43 | ED.GENADUL1 ---
HPI HPI - General Adult General Chief complaint: Head Injury Stated complaint: INJURY TO HEAD Time Seen by Provider: 12/09/24 17:27 Mode of arrival: walk-in History of Present Illness HPI narrative: 54-year-old female presents to the emergency department for a chief complaint of head injury. About 25 minutes ago she was in her kitchen and a cooking stone fell from a shelf and hit her scalp near the vertex. She is on Eliquis. No LOC or neck pain or any other injury. Related Data Home Medications ?Medication ?Instructions ?Recorded ?Confirmed albuterol sulfate 90 mcg/actuation 2 puff inhalation Q4H PRN wheezing 04/18/23 10/28/24 aerosol inhaler (Ventolin HFA) apixaban 5 mg tablet (Eliquis) 5 mg PO BID 04/18/23 10/28/24 ferrous sulfate 325 mg (65 mg 325 mg PO BID 04/18/23 10/28/24 iron) tablet furosemide 40 mg tablet 20 mg PO DAILY 04/18/23 10/28/24 isosorbide mononitrate 30 mg 30 mg PO DAILY 04/18/23 10/28/24 tablet,extended release 24 hr Held on 10/28/24. Instructions: on hold per automatic mounter metformin 500 mg tablet 500 mg PO DAILY 04/18/23 10/28/24 pantoprazole 40 mg tablet,delayed 40 mg PO DAILY 04/18/23 10/28/24 release potassium chloride 20 mEq 10 meq PO BID 04/18/23 10/28/24 tablet,extended release rosuvastatin 5 mg tablet 5 mg PO DAILY 04/18/23 10/28/24 metoprolol succinate 25 mg 50 mg PO DAILY 04/28/23 10/28/24 tablet,extended release 24 hr cholecalciferol (vitamin D3) 50 50 mcg PO DAILY 11/18/23 10/28/24 mcg (2,000 unit) capsule lisinopril 5 mg tablet 20 mg PO DAILY 01/28/24 10/28/24 allopurinol 100 mg tablet 100 mg PO DAILY 04/05/24 10/28/24 ropinirole 0.5 mg tablet 0.5 mg PO DAILY 04/05/24 10/28/24 colchicine 0.6 mg tablet 0.6 mg PO DAILY PRN gout 04/13/24 10/28/24 semaglutide 2 mg/dose (8 mg/3 mL) 2 mg subcut DAILY 04/13/24 10/28/24 subcutaneous pen injector (Ozempic) Previous Rx's ?Medication ?Instructions ?Recorded acetaminophen 325 mg capsule 650 mg (2 x 325 mg) PO .q8 PRN 04/18/23 (Tylenol) pain #20 caps hydrocodone 5 mg-acetaminophen 325 1 tab PO Q6H PRN pain 5 days #20 10/28/24 mg tablet tabs prednisone 10 mg tablet See Rx Instructions .Route 10/28/24 .COMPLEX #30 tabs Allergies Allergy/AdvReac Type Severity Reaction Status Date / Time morphine Allergy Intermediate Palpitation Verified 10/28/24 17:35 s Opioid HPI Opioid Management Most Recent Opioid Data: Last Pain Scale 8 Today, 17:31 Review of Systems ROS Narrative A ten point review of systems is negative except as noted above. [facility] Medical History (Updated 12/09/24 @ 18:36 by Gerry Rocha MD) Pulmonary hypertension ?I27.20 - Pulmonary hypertension, unspecified (ICD-10) Pericardial effusion ?I31.39 - Other pericardial effusion (noninflammatory) (ICD-10) Paroxysmal atrial fibrillation ?I48.0 - Paroxysmal atrial fibrillation (ICD-10) Nausea ?R11.0 - Nausea (ICD-10) Mild aortic stenosis ?I35.0 - Nonrheumatic aortic (valve) stenosis (ICD-10) Insomnia ?G47.00 - Insomnia, unspecified (ICD-10) Irritable bowel syndrome ?K58.9 - Irritable bowel syndrome without diarrhea (ICD-10) Hypertriglyceridemia ?E78.1 - Pure hyperglyceridemia (ICD-10) Hypercholesterolemia ?E78.00 - Pure hypercholesterolemia, unspecified (ICD-10) Hypertension ?I10 - Essential (primary) hypertension (ICD-10) Fibrocystic breast disease ?N60.19 - Diffuse cystic mastopathy of unspecified breast (ICD-10) Epigastric pain ?R10.13 - Epigastric pain (ICD-10) Diverticulosis ?K57.90 - Diverticulosis of intestine, part unspecified, without perforation or abscess without bleeding (ICD-10) Cystic kidney disease ?Q61.9 - Cystic kidney disease, unspecified (ICD-10) Chronic diastolic heart failure ?I50.32 - Chronic diastolic (congestive) heart failure (ICD-10) Cholelithiasis ?K80.20 - Calculus of gallbladder without cholecystitis without obstruction (ICD-10) Cervical disc disease ?M50.90 - Cervical disc disorder, unspecified, unspecified cervical region (ICD-10) Abdominal pain ?R10.9 - Unspecified abdominal pain (ICD-10) Abdominal bloating ?R14.0 - Abdominal distension (gaseous) (ICD-10) Back pain ?M54.9 - Dorsalgia, unspecified (ICD-10) Arthritis ?M19.90 - Unspecified osteoarthritis, unspecified site (ICD-10) Anemia ?D64.9 - Anemia, unspecified (ICD-10) Depression ?F32.A - Depression, unspecified (ICD-10) Panic attacks ?F41.0 - Panic disorder [episodic paroxysmal anxiety] (ICD-10) RUQ pain ?R10.11 - Right upper quadrant pain (ICD-10) Sleep apnea ?G47.30 - Sleep apnea, unspecified (ICD-10) Chronic obstructive pulmonary disease ?J44.9 - Chronic obstructive pulmonary disease, unspecified (ICD-10) Asthma ?J45.909 - Unspecified asthma, uncomplicated (ICD-10) COVID-19 ?U07.1 - COVID-19 (ICD-10) Positive colorectal cancer screening using Cologuard test ?R19.5 - Other fecal abnormalities (ICD-10) Dyspnea on exertion ?R06.09 - Other forms of dyspnea (ICD-10) Extremity edema ?R60.0 - Localized edema (ICD-10) Congestive heart failure (CHF) ?I50.9 - Heart failure, unspecified (ICD-10) Pericarditis ?I31.9 - Disease of pericardium, unspecified (ICD-10) Atrial flutter ?I48.92 - Unspecified atrial flutter (ICD-10) Atrial fibrillation ?I48.91 - Unspecified atrial fibrillation (ICD-10) Diabetes ?E11.9 - Type 2 diabetes mellitus without complications (ICD-10) Gout ?M10.9 - Gout, unspecified (ICD-10) Nasal congestion ?R09.81 - Nasal congestion (ICD-10) Breast cyst ?N60.09 - Solitary cyst of unspecified breast (ICD-10) Implantable loop recorder present ?Z95.818 - Presence of other cardiac implants and grafts (ICD-10) Surgical History (Updated 04/13/24 @ 09:03 by Martina Muñiz NP) H/O removal of cyst ?Z98.890 - Other specified postprocedural states (ICD-10) History of colonoscopy ?Z98.890 - Other specified postprocedural states (ICD-10) History of tubal ligation ?Z98.51 - Tubal ligation status (ICD-10) History of cardiac radiofrequency ablation ?Z98.890 - Other specified postprocedural states (ICD-10) History of section ?Z98.891 - History of uterine scar from previous surgery (ICD-10) Family History (Updated 04/13/24 @ 08:57 by Martina Muñiz NP) Other Family history of breast cancer Family history of diabetes mellitus Family history of heart disease Family history of hypertension Family history of myocardial infarction Family history of renal failure Family history of stroke Social History (Updated 04/13/24 @ 08:47 by Martina Muñiz NP) Within the past year, how often did you have a drink containing alcohol: monthly or less Smoking status: Former smoker Non-prescribed substance use: denies use 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 General: The patient appears well and in no apparent distress. Patient is resting comfortably on cart. Skin: Warm, dry, no pallor noted. There is no rash noted. Head: Normocephalic, hematoma present near the vertex, no laceration. Cervical spine nontender Eye: Normal conjunctiva, no drainage Ears, Nose, Mouth, and Throat: oral mucosa is moist. Nares patent. Cardiovascular: Regular Rate and Rhythm Respiratory: Patient is in no distress, no accessory muscle use, lungs are clear to auscultation, no wheezing, rales or rhonchi Back: non-tender GI: Soft and nontender Musculoskeletal: The patient has no evidence of calf tenderness, no pitting edema, symmetrical pulses noted bilaterally Neurological: Awake and alert Psychiatric: Cooperative Constitutional Vital Signs, click to edit/add: Last Vital Signs Temp 97.8 F 12/09/24 17:31 Pulse 74 12/09/24 17:31 Resp 18 12/09/24 17:31 BP 130/74 12/09/24 17:31 Pulse Ox 99 12/09/24 17:31 O2 Del Method Room Air 12/09/24 17:31 Course Vital Signs Vital signs: Vital Signs Temperature 97.8 F 12/09/24 17:31 Pulse Rate 74 12/09/24 17:31 Respiratory Rate 18 12/09/24 17:31 Blood Pressure 130/74 12/09/24 17:31 Pulse Oximetry 99 12/09/24 17:31 Oxygen Delivery Method Room Air 12/09/24 17:31 Temperature 97.8 F 12/09/24 17:31 Pulse Rate 74 12/09/24 17:31 Respiratory Rate 18 12/09/24 17:31 Blood Pressure 130/74 12/09/24 17:31 Pulse Oximetry 99 12/09/24 17:31 Oxygen Delivery Method Room Air 12/09/24 17:31 Medical Decision Making MDM Narrative Medical decision making narrative: CT per radiologist shows no acute findings and she is able to be discharged home. She was recommended Tylenol and ice. Treatment diagnosis and follow-up were discussed with the patient. Differential Diagnosis Differential Diagnosis: Scalp hematoma, intracranial hemorrhage Imaging Data CT scan - head: Radiologist's impression: ITS Impressions Head CT 12/09/24 17:42 IMPRESSION: No acute intracranial pathology. There is a subcutaneous scalp hematoma near the vertex. Impression dictated by: Arturo Rodriguez M.D. 12/09/2024 6:28 PM Dictation Location: [place] [address] Electronically authenticated by: [id number] Y Date: 12/09/2024 18:28 Discharge Plan Discharge Chief Complaint: Head Injury Clinical Impression: Scalp hematoma Patient Disposition: Home, Self-Care Time of Disposition Decision: 18:36 Condition: Good Mode of Transportation: Private Vehicle Prescriptions / Home Meds: No Action albuterol sulfate [Ventolin HFA] 90 mcg/actuation HFA aerosol inhaler 2 puff INHALATION Q4H PRN (Reason: wheezing) Eliquis 5 mg tablet 5 mg PO BID ferrous sulfate 325 mg (65 mg iron) tablet 325 mg PO BID furosemide 40 mg tablet 20 mg PO DAILY isosorbide mononitrate 30 mg tablet extended release 24 hr 30 mg PO DAILY metformin 500 mg tablet 500 mg PO DAILY pantoprazole 40 mg tablet,delayed release (DR/EC) 40 mg PO DAILY potassium chloride 20 mEq tablet extended release 10 meq PO BID rosuvastatin 5 mg tablet 5 mg PO DAILY acetaminophen [Tylenol] 325 mg capsule 650 mg PO .q8 PRN (Reason: pain) Qty: 20 0RF metoprolol succinate 25 mg tablet extended release 24 hr 50 mg PO DAILY lisinopril 5 mg tablet 20 mg PO DAILY hydrocodone-acetaminophen 5-325 mg tablet 1 tab PO Q6H PRN (Reason: pain) 5 Days Qty: 20 0RF prednisone 10 mg tablet See Rx Instructions .ROUTE .COMPLEX Qty: 30 0RF Rx Instructions: 4 by mouth daily for three days then 3 by mouth daily for three days then 2 by mouth daily for three days then 1 by mouth daily for three days cholecalciferol (vitamin D3) 50 mcg (2,000 unit) capsule 50 mcg PO DAILY Ozempic 2 mg/dose (8 mg/3 mL) pen injector 2 mg SUBCUT DAILY colchicine 0.6 mg tablet 0.6 mg PO DAILY PRN (Reason: gout) ropinirole 0.5 mg tablet 0.5 mg PO DAILY allopurinol 100 mg tablet 100 mg PO DAILY Print Language: Moroccan Instructions: Scalp Contusion in Adults (ED) Referrals: Xavi Ann MD [Primary Care Provider, Family Practice] - 1 week
[2024-12-09] MEDS: ACETAMINOPHEN 325 MG TABLET 650 MG PO (18:52)
== END 2024-12-09 18:56 | disposition home or self-care (01) ==
PROVIDERS: Emergency Provider Emergency Medicine; PCP Family Medicine
DX: S00.03XA Contusion of scalp, initial encounter (principal); S09.90XA Unspecified injury of head, initial encounter; E11.9 Type 2 diabetes mellitus without complications; Z79.85 Long-term (current) use of injectable non-insulin antidiabetic drugs
CPT/HCPCS: 70450; 99284

== ENCOUNTER 2025-01-18 23:18 | Emergency (ER) | payer OTHER, SELFPAY ==
--- OUTSIDE RECORDS SUMMARY | 2025-01-18 23:27 | XMS_ITS | CCD ---
Author Organization [facility] Care Team Providers Care Insurance Manager Name Role Phone CASSY BEAR A Admitting Unavailable CASSY BEAR Attending Unavailable PHILLIP ANN Referring Unavailable PHILLIP NAN Primary Care Unavailable PHILLIP ANN Referring Unavailable XIAO TORRES Surgeon Unavailable ALBERT HUI Attending Unavailable CALLI PAIGE Admitting Unavailable NM Procedure Practitioner Unavailab PHILLIP Muñoz Primary Care Unavailable NM Procedure Practitioner Unavailab Dunia Light Surgeon Unavailsindhu [...] Unavailable WEST, DR VIVI Wyman Consulting Unavailable NILLJuan Miguel Attending Unavailable NILL, Juan Miguel Ortiz Attending Unavailable MANOJ, CURTIS Attending Unavailable MANOJ, CURTIS Admitting Unavailable BESSIE MORRISSEY Referring Unavailable MANOJ, CURTIS Referring Unavailable MANOJ, CURTIS Referring Unavailable MANOJ, CURTIS Referring Unavailable MANOJ, CURTIS Referring Unavailable JENNA PHILLIPS Attending Unavailable JENNA PHILLIPS Attending Unavailable MANOJ, CURTIS Attending Unavailable Allergies Allergy Classification Reported Allergen(s) Allergy Type Date of Onset Reaction(s) Facility (4 sources) Morphine; Translations: [morphine] Drug Allergy 9 [facility] (1 source) 77843,00; Translations: [28545,00] Propensity to adverse reactions (disorder) 0 [facility] (2 sources) Morphine; Translations: [morphine] Drug Allergy Feeling nervous (finding), Tachycardia (finding) General Surgery [place] (1 source) No Known Medication Allergies; Translations: [No Known Medication Allergies] Propensity to adverse reactions (disorder) [facility] Repository (1 source) dulaglutide; Translations: [DULAGLUTIDE] Drug Allergy 3 [facility] Medications Current Medications Medication Drug Class(es) Dates Sig (Normalized) Sig (Original) 3 ML semaglutide 2.68 MG/ML Pen Injector [Ozempic] (1 source) Start: 03-16-2024 inject 2 mg by subcutaneous injection every week Ozempic 8 mg/3 mL (2 mg dose) subcutaneous solution 2 mg, SubCutaneous, qWeek, Refills(s) 0 Start Date: 03/16/24 Status: Ordered [id number] 200 actuat albuterol 0.09 mg/actuat metered dose [...] Start Date: 03/16/24 Status: Ordered Vitamin D3 1999 intl units oral Tab (1 source) Start: [...] disease (1 source) Atherosclerotic heart disease of seminole coronary artery without angina pectoris; Translations: [ASHD [place] W/O ANGINA PECTORIS] Onset: 08-11-2022 Chronic [...] unspecified; Translations: [VITAMIN D DEFICIENCY UNSPECIFIED] Onset: 02-26-2023 Chronic Other aftercare (1 source) 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; Translations: [HALFWAY CURRNT USE ANTICOAGULANTS] Onset: 11-19-2022 Episodic Other aftercare (1 source) 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 therapy; Translations: [OTH STATE FEDERAL RELATIONS DEPUTY DIRECTOR CURRENT DRUG THERAPY] Onset: 11-19-2022 Episodic Other aftercare (1 source) correction (current) use of oral hypoglycemic drugs; Translations: [STATE FEDERAL RELATIONS DEPUTY DIRECTOR USE ORAL HYPOGLYCEMIC DX] Onset: 11-19-2022 Episodic [...] sources) Palpitations; Translations: [Palpitations] Onset: 04-17-2024 Episodic Gastritis and duodenitis (1 source) Gastritis, [...] Test Name Value Interpretation Reference Range Facility [facility] 12-27-2024 [facility] Cardiology Consult Note Reason for visit: Palpitations, follow up, s/p loop implant 07/2021, s/p flutter ablation 08/18/2021 12/27/24 Pt here for LOOP explant and reimplant. 09/12/24 Patient here for 5 mo follow [...] trended upwards is a since seen in [place] ER 04/28/2023 and was diagnosed with vertigo [...] CATHETERIZATION SECTION, CLASSIC TUBAL LIGATION SH: Social Drivers of Health Tobacco Use: Medium Risk (10/26/2024) Patient History Smoking Tobacco Use: Former Smokeless Tobacco Use: Never Passive Exposure: Not on file Alcohol Use: Not on file Financial Resource Strai (more content not included)... [facility] NURSNOTEon 12-27-2024 NURSNOTE RN educated pt on d/c instructions. This included: site care, limited physical activity, resume normal diet, future appointments, medications, and moderate sedation instructions. RN educated pt on when to notify physician and when to go to the hospital. RN educated pt on importance of removing dressing in 5 days after the procedure and monitoring site for infection. RN encouraged pt to voice any questions or concerns, and answered any questions or concerns if pt verbalized. Pt was wheeled off of unit with all of belongings. [facility] 36on 12-20-2024 36 From: Jenna Phillips CNP Sent: 12/07/2024 8:14 AM EDT To: Sandy Bonilla MA Subject: RE: Import Please let her know her ECHO looked good. Please ask how her BP has been doing as she was having lows when I saw her last and we held her imdur. Advised patient of Mindys findings. Patient states she feels good and it get down to 109/78 at time but she's not worried about it because she feels good. The only time she worries about it is if she don't feel good. Normal [facility] Abstracton 11-10-2024 Abstract [id number] Diana Alvarez Brodie 1970 Provider Department Center 11/10/2024 CURTIS VALDES [facility] AUTH MA Medical C Family History Problem Relation Age of Onset Breast cancer Mother Aneurysm Mother Stroke Mother Heart attack Father Coronary artery disease Father Stroke Sister Family Status - Relation Status Age at Mother Father Alive Sister Normal [facility] 37on 10-26-2024 37 *We will decrease your lasix to 20mg every other day. *Hold your isosorbide and continue to monitor your blood pressure. Call us in 2 weeks with your readings. *Your last labs showed potassium was low at 3.3. Will order for potassium supplement 10mEq daily. *Repeat labs in 1 month. Normal [facility] Office Visiton 10-26-2024 Follow-up visit [id number] AntonioJoelleDiana S 1970 Provider Department Center 10/26/2024 JENNA ABREU T[facility] Family History Problem Relation Age of Onset Breast cancer Mother Aneurysm Mother Stroke Mother Heart attack Father Coronary artery disease Father Stroke Sister Family Status - Relation Status Age at Mother Father Alive Sister Level of Service:84485 NM OFFICE/OUTPATIENT ESTABLISHED MOD MDM 30 MIN Reason for Visit and Comments: Atrial Fibrillation [80] Dizziness [468653] Hypertension [746545] Normal [facility] Orders Onlyon 10-26-2024 Orders Only [id number] AntonioJoelleDiana S 1970 Provider Department Center 10/26/2024 MARVIN HEARN [facility] Family History Problem Relation Age of Onset Breast cancer Mother Aneurysm Mother Stroke Mother Heart attack Father Coronary artery disease Father Stroke Sister Family Status - Relation Status Age at Mother Father Alive Sister Normal [facility] Follow-Upon 09-12-2024 Follow-Up [id number] Diana Alvarez 1970 Date Provider Department Center 09/12/2024 CURTIS VALDES [facility] Family History Problem Relation Age of Onset Breast cancer Mother Aneurysm Mother Stroke Mother Heart attack Father Coronary artery disease Father Family Status - Relation Status Age at Mother Father Level of Service:22091 NM OFFICE/OUTPATIENT ESTABLISHED LOW MDM 20 MIN Normal [facility] Reminderson 04-20-2024 Reminders Reminders - From: Jacqueline Huerta LPN To: N - Clinical; Sent: 04/20/2024 11:34:18 EDT Show up: 03/20/2034 07:00:00 EDT Subject: colonoscopy recall Due Date/Time: 04/19/2034 07:00:00 EDT Reminder/Recall Patient due for screening colonoscopy 04/19/2034. Normal [facility] Office Visiton 04-13-2024 Follow-up visit [id number] Diana Alvarez 1970 F Date Provider Department Center 04/13/2024 JENNA ABREU [facility] Family History Problem Relation Age of Onset Breast cancer Mother Aneurysm Mother Stroke Mother Heart attack Father Coronary artery disease Father Family Status - Relation Status Age at Mother Father Level of Service:74252 NM OFFICE/OUTPATIENT ESTABLISHED MOD MDM 30 MIN Reason for Visit and Comments: Pre-op Exam [667254] Atrial Fibrillation [80] Hypertension [479826] Normal [facility] Ambulatory Visit Summaryon 0 04-04-2024 Ambulatory Visit Summary Ambulatory Visit Summary ANTONIODIANA Brodie :1970 Visit Date:04/04/2024 Ambulatory Visit Instructions Your [...] (more content not included)... Normal [facility] 01-12-2024 36 BP is elevated. I encourage diet and routine exercise which can help her BP. In the mean time, would like to start her on lisinopril 5mg daily with follow-up BMP in 2 weeks. Thanks! Normal [facility] 01-11-2024 36 Pt calling with bp's 156/83 133/78 147/80 146/78 157/72 148/80 120/80 Normal [facility] CBC AUTO DIFFon 10-28-2022 BASO # 0.0 103/ul Normal 0.0-0.1 [facility] Comment on above: Performed By: #### L IPID, CMP, T4, TSH, FT3 #### [facility] [address] [address] [address] Mendel Herron Basophils/100 WBC (Bld) 0.2 % Normal 0.2-2.0 [facility] Comment on above: Performed By: #### L IPID, CMP, T4, TSH, FT3 #### [facility] [address] [place] [address] Dr. Mendel Herron EO # 0.0 103/ul Normal 0.0-0.7 [facility] Comment on above: Performed By: #### L IPID, CMP, T4, TSH, FT3 #### [facility] [address] [place] [address] Dr. Mendel Herron Eosinophils/100 WBC (Bld) 0.3 % Critically low 0.9-7.0 [facility] Comment on above: Performed By: #### L IPID, CMP, T4, TSH, FT3 #### [facility] [address] [place] [address] Dr. Mendel Herron Erythrocyte distribution width (RBC) [Ratio] 13.6 % Normal 11.0-15.0 [facility] Comment on above: Performed By: #### L IPID, CMP, T4, TSH, FT3 #### [facility] [address] [place] [address] Dr. Mendel Herron Hematocrit (Bld) [Volume fraction] 40.1 % Normal 36.0-48.0 [facility] Comment on above: Performed By: #### L IPID, CMP, T4, TSH, FT3 #### [facility] [address] [place] [address] Dr. Mendel Herron Hemoglobin (Bld) [Mass/Vol] 13.0 g/dL Normal 12.0-16.0 [facility] Comment on above: Performed By: #### L IPID, CMP, T4, TSH, FT3 #### [facility] [address] [place] [address] Dr. Mendel Herron IG # 0.06 10e3/ul Critically high 0.00-0.03 [facility] Comment on above: Performed By: #### L IPID, CMP, T4, TSH, FT3 #### [facility] [address] [place] [address] Dr. Mendel Herron IG % 0.5 % Normal 0.0-0.5 [facility] Comment on above: Performed By: #### L IPID, CMP, T4, TSH, FT3 #### [facility] [address] [place] [address] Dr. Mendel Herron LYMPH # 2.8 103/ul Normal 1.2-3.8 [facility] Comment on above: Performed By: #### L IPID, CMP, T4, TSH, FT3 #### [facility] [address] [place] [address] Dr. Mendel Herron Lymphocytes/100 WBC (Bld) 22.4 % Normal 20.5-60.0 [facility] Comment on above: Performed By: #### L IPID, CMP, T4, TSH, FT3 #### [facility] [address] [place] [address] Dr. Mendel Herron MANUAL DIFF REQ NO Normal [facility] Comment on above: Performed By: #### L IPID, CMP, T4, TSH, FT3 #### [facility] [address] [place] [address] Dr. Mendel Herron MCH (RBC) [Entitic mass] 30.8 pg Normal 26.7-34.0 [facility] Comment on above: Performed By: #### L IPID, CMP, T4, TSH, FT3 #### [facility] [address] [place] [address] Dr. Mendel Herron MCHC (RBC) [Mass/Vol] 32.4 g/dL Normal 29.9-35.2 [facility] Comment on above: Performed By: #### L IPID, CMP, T4, TSH, FT3 #### [facility] [address] [place] [address] Dr. Mendel Herron MCV (RBC) [Entitic vol] 95.0 fL Normal 81.0-99.0 [facility] Comment on above: Performed By: #### L IPID, CMP, T4, TSH, FT3 #### [facility] [address] [place] [address] Dr. Mendel Herron MONO # 0.9 103/ul Critically high 0.3-0.[address] [facility] Comment on above: Performed By: #### L IPID, CMP, T4, TSH, FT3 #### [facility] [address] [place] [address] Dr. Mendel Herron Monocytes/100 WBC (Bld) 7.2 % Normal 1.7-12.0 [facility] Comment on above: Performed By: #### L IPID, CMP, T4, TSH, FT3 #### [facility] [address] [place] [address] Dr. Mendel Herron NEUT # 8.6 103/ul Critically high 1.4-6.[address] [facility] Comment on above: Performed By: #### L IPID, CMP, T4, TSH, FT3 #### [facility] [address] [place] [address] Dr. Mendel Herron Neutrophils/100 WBC (Bld) 69.4 % Normal 43.0-75.0 [facility] Comment on above: Performed By: #### L IPID, CMP, T4, TSH, FT3 #### [facility] [address] [place] [address] Dr. Mendel Herron Platelet mean volume (Bld) [Entitic vol] 9.9 fL Normal 9.5-13.5 [facility] Comment on above: Performed By: #### L IPID, CMP, T4, TSH, FT3 #### [facility] [address] [place] [address] Dr. Mendel Herron PLT 297 103/ul Normal 150-450 [facility] Comment on above: Performed By: #### L IPID, CMP, T4, TSH, FT3 #### [facility] [address] [address] [address] Mendel Herron RBC 4.22 106/ul Normal 4.20-5.40 [facility] Comment on above: Performed By: #### L IPID, CMP, T4, TSH, FT3 #### [facility] [address] [address] [address] Mendel Herron WBC 12.4 103/ul Critically high 4.0-11.0 [facility] Comment on above: Performed By: #### L IPID, CMP, T4, TSH, FT3 #### [facility] [address] [place] [address] Dr. Mendel Herron CRPon 10-28-2022 CRP 1.3 mg/dL Critically high <=1.0 [facility] Comment on above: Performed By: #### L IPID, CMP, T4, TSH, FT3 #### [facility] [address] [place] [address] Dr. Mendel Herron PROF CHEM 8 (BAS METB)on Anion gap [Moles/Vol] 13.6 mmol/L Normal [facility] Comment on above: Performed By: #### L IPID, CMP, T4, TSH, FT3 #### [facility] [address] [place] [address] Dr. Mendel Herron Calcium [Mass/Vol] 9.3 mg/dL Normal 8.5-10.1 [facility] Comment on above: Performed By: #### L IPID, CMP, T4, TSH, FT3 #### [facility] [address] [place] [address] Dr. Mendel Herron Chloride [Moles/Vol] 102 mmol/L Normal 98-107 [facility] Comment on above: Performed By: #### L IPID, CMP, T4, TSH, FT3 #### [facility] [address] [place] [address] Dr. Mendel Herron CO2 [Moles/Vol] 30.7 mmol/L Normal 21.0-32.0 [facility] Comment on above: Performed By: #### L IPID, CMP, T4, TSH, FT3 #### [facility] [address] [place] [address] Dr. Mendel Herron Creatinine [Mass/Vol] 0.85 mg/dL Normal 0.55-1.02 [facility] Comment on above: Performed By: #### L IPID, CMP, T4, TSH, FT3 #### [facility] [address] [place] [address] Dr. Mendel Herron EGFR-AF CAMEROONIAN >60 Normal >=60 [facility] Comment on above: Performed By: #### L IPID, CMP, T4, TSH, FT3 #### [facility] [address] [place] [address] Dr. Mendel Herron EGFR-NON AF CAMEROONIAN >60 Normal >=60 [facility] Comment on above: Performed By: #### L IPID, CMP, T4, TSH, FT3 #### [facility] [address] [place] [address] Dr. Mendel Herron Glucose [Mass/Vol] 101 mg/dL Normal 74-106 [facility] Comment on above: Performed By: #### L IPID, CMP, T4, TSH, FT3 #### [facility] [address] [place] [address] Dr. Mendel Herron Potassium [Moles/Vol] 3.3 mmol/L Critically low 3.5-5.1 [facility] Comment on above: Performed By: #### L IPID, CMP, T4, TSH, FT3 #### [facility] [address] [place] [address] Dr. Mendel Herron Sodium [Moles/Vol] 143 mmol/L Normal 136-145 [facility] Comment on above: Performed By: #### L IPID, CMP, T4, TSH, FT3 #### [facility] [address] [place] [address] Dr. Mendel Herron Urea nitrogen [Mass/Vol] 12.0 mg/dL Normal 7.0-18.0 [facility] Comment on above: Performed By: #### L IPID, CMP, T4, TSH, FT3 #### [facility] [address] [address] [address] Mendel Herron Urea nitrogen/Creatinine [Mass ratio] 14.1 mg/mg Normal [facility] Comment on above: Performed By: #### L IPID, CMP, T4, TSH, FT3 #### [facility] [address] [address] [address] Mendel Herron URIC ACID SERUMon 10-28-2022 Urate [Mass/Vol] 7.8 mg/dL Critically high 2.6-6.0 [facility] Comment on above: Performed By: #### L IPID, CMP, T4, TSH, FT3 #### [facility] [address] [address] [address] Mendel Herron XR TOES RT MIN [...] Date: 2022-10-28 20:53 Normal [facility] Covid-19 PCR (CVDTB)on SARS-CoV-2 (COVID-19) RNA DEIRDRE+probe Ql (Unsp spec) Not detected Normal NOT DETECTED [facility] Comment on above: Result Comment: When [...] for this test is supported by the [employer]her of Health and Human Service's declaration [...] CMP, T4, TSH, FT3 #### [facility] [address] [place] [address] Dr. Mendel Herron CBC AUTO DIFFon 09-09-2022 BASO # 0.1 103/ul Normal 0.0-0.1 [facility] Comment on above: Performed By: #### L IPID, CMP, T4, TSH, FT3 #### [facility] [address] [place] [address] Dr. Mendel Herron Basophils/100 WBC (Bld) 0.7 % Normal 0.2-2.0 [facility] Comment on above: Performed By: #### L IPID, CMP, T4, TSH, FT3 #### [facility] [address] [place] [address] Dr. Mendel Herron EO # 0.1 103/ul Normal 0.0-0.7 [facility] Comment on above: Performed By: #### L IPID, CMP, T4, TSH, FT3 #### [facility] [address] [place] [address] Dr. Mendel Herron Eosinophils/100 WBC (Bld) 0.7 % Critically low 0.9-7.0 [facility] Comment on above: Performed By: #### L IPID, CMP, T4, TSH, FT3 #### [facility] [address] [place] [address] Dr. Mendel Herron Erythrocyte distribution width (RBC) [Ratio] 13.1 % Normal 11.0-15.0 [facility] Comment on above: Performed By: #### L IPID, CMP, T4, TSH, FT3 #### [facility] [address] [place] [address] Dr. Mendel Herron Hematocrit (Bld) [Volume fraction] 43.7 % Normal 36.0-48.0 [facility] Comment on above: Performed By: #### L IPID, CMP, T4, TSH, FT3 #### [facility] [address] [place] [address] Dr. Mendel Herron Hemoglobin (Bld) [Mass/Vol] 14.4 g/dL Normal 12.0-16.0 [facility] Comment on above: Performed By: #### L IPID, CMP, T4, TSH, FT3 #### [facility] [address] [place] [address] Dr. Mendel Herron IG # 0.11 10e3/ul Critically high 0.00-0.03 [facility] Comment on above: Performed By: #### L IPID, CMP, T4, TSH, FT3 #### [facility] [address] [place] [address] Dr. Mendel Herron IG % 1.3 % Critically high 0.0-0.5 [facility] Comment on above: Performed By: #### L IPID, CMP, T4, TSH, FT3 #### [facility] [address] [place] [address] Dr. Mendel Herron LYMPH # 2.4 103/ul Normal 1.2-3.8 [facility] Comment on above: Performed By: #### L IPID, CMP, T4, TSH, FT3 #### [facility] [address] [place] [address] Dr. Mendel Herron Lymphocytes/100 WBC (Bld) 27.9 % Normal 20.5-60.0 [facility] Comment on above: Performed By: #### L IPID, CMP, T4, TSH, FT3 #### [facility] [address] [place] [address] Dr. Mendel Herron MANUAL DIFF REQ NO Normal [facility] Comment on above: Performed By: #### L IPID, CMP, T4, TSH, FT3 #### [facility] [address] [place] [address] Dr. Mendel Herron MCH (RBC) [Entitic mass] 31.0 pg Normal 26.7-34.0 [facility] Comment on above: Performed By: #### L IPID, CMP, T4, TSH, FT3 #### [facility] [address] [place] [address] Dr. Mendel Herron MCHC (RBC) [Mass/Vol] 33.0 g/dL Normal 29.9-35.2 [facility] Comment on above: Performed By: #### L IPID, CMP, T4, TSH, FT3 #### [facility] [address] [place] [address] Dr. Mendel Herron MCV (RBC) [Entitic vol] 94.0 fL Normal 81.0-99.0 [facility] Comment on above: Performed By: #### L IPID, CMP, T4, TSH, FT3 #### [facility] [address] [place] [address] Dr. Mendel Herron MONO # 0.5 103/ul Normal 0.3-0.8 [facility] Comment on above: Performed By: #### L IPID, CMP, T4, TSH, FT3 #### [facility] [address] [place] [address] Dr. Mendel Herron Monocytes/100 WBC (Bld) 6.0 % Normal 1.7-12.0 [facility] Comment on above: Performed By: #### L IPID, CMP, T4, TSH, FT3 #### [facility] [address] [place] [address] Dr. Mendel Herron NEUT # 5.4 103/ul Normal 1.4-6.5 [facility] Comment on above: Performed By: #### L IPID, CMP, T4, TSH, FT3 #### [facility] [address] [place] [address] Dr. Mendel Herron Neutrophils/100 WBC (Bld) 63.4 % Normal 43.0-75.0 [facility] Comment on above: Performed By: #### L IPID, CMP, T4, TSH, FT3 #### [facility] [address] [address] [address] Mendel Herron Platelet mean volume (Bld) [Entitic vol] 9.8 fL Normal 9.5-13.5 [facility] Comment on above: Performed By: #### L IPID, CMP, T4, TSH, FT3 #### [facility] [address] [address] [address] Mendel Herron PLT 398 103/ul Normal 150-450 [facility] Comment on above: Performed By: #### L IPID, CMP, T4, TSH, FT3 #### [facility] [address] [place] [address] Dr. Mendel Herron RBC 4.65 106/ul Normal 4.20-5.40 [facility] Comment on above: Performed By: #### L IPID, CMP, T4, TSH, FT3 #### [facility] [address] [place] [address] Dr. Mendel Herron WBC 8.6 103/ul Normal 4.0-11.0 [facility] Comment on above: Performed By: #### L IPID, CMP, T4, TSH, FT3 #### [facility] [address] [place] [address] Dr. Mendel Herron FREE T3on 09-09-2022 FREE T3 2.59 pg/mlL Normal 2.18-3.98 [facility] Comment on above: Performed By: #### L IPID, CMP, T4, TSH, FT3 #### [facility] [address] [place] [address] Dr. Mendel Herron GLYCOHEMOGLOBIN A1Con 2022 ADA RECOMMENDATION SEE BELOW Normal [facility] Comment on above: Result Comment: ADA RECOMMENDED LIMIT 4.0 - 6.0 ADA THERAPEUTIC TARGET < 7.0 ACTION SUGGESTED > 7.0 Performed By: #### A 1C #### [facility] [address] [place] [address] Dr. Mendel Herron Glucose [Mass/Vol] 120 mg/dL Normal [facility] Comment on above: Performed By: #### A 1C #### [facility] [address] [place] [address] Dr. Mendel Herron HbA1c (Bld) [Mass fraction] 5.8 % Normal 4.5-6.2 [facility] Comment on above: Performed By: #### A 1C #### [facility] [address] [place] [address] Dr. Mendel Herron LIPID PROFILEon 09-09-2022 CHOL-HDL RATIO NORM SEE BELOW Normal [facility] Comment on above: Result Comment: 3.3 - 4.4 LOW RISK 4.4 - 7.1 AVERAGE RISK 7.1 - 11.0 MODERATE RISK >11.0 HIGH RISK Performed By: #### L IPID, CMP, T4, TSH, FT3 #### [facility] [address] [place] [address] Dr. Mendel Herron Cholesterol [Mass/Vol] 308 mg/dL Critically high <=200 [facility] Comment on above: Performed By: #### L IPID, CMP, T4, TSH, FT3 #### [facility] [address] [place] [address] Dr. Mendel Herron Cholesterol in HDL [Mass/Vol] 46 mg/dL Normal 40-60 [facility] Comment on above: Performed By: #### L IPID, CMP, T4, TSH, FT3 #### [facility] [address] [place] [address] Dr. Mendel Herron Cholesterol in LDL [Mass/Vol] 212.6 mg/dL Normal [facility] Comment on above: Performed By: #### L IPID, CMP, T4, TSH, FT3 #### [facility] [address] [place] [address] Dr. Mendel Herron Cholesterol.total/Ch olesterol in HDL [Mass ratio] 6.7 {ratio} Normal [facility] Comment on above: Performed By: #### L IPID, CMP, T4, TSH, FT3 #### [facility] [address] [place] [address] Dr. Mendel Herron HDL NORMAL > or = 60 mg/dl - LOW CARDIOVASCULAR RISK <40 mg/dl - HIGH CARDIOVASCULAR RISK Normal [facility] Comment on above: Performed By: #### L IPID, CMP, T4, TSH, FT3 #### [facility] [address] [address] [address] Mendel Herron LDL CALC NORMAL SEE BELOW Normal [facility] Comment on above: Result Comment: <100 mg/dl OPTIMAL 100 - 129 mg/dl NEAR OR ABOVE OPTIMAL 130 - 159 mg/dl BORDERLINE HIGH 160 - 189 mg/dl HIGH >190 mg/dl VERY HIGH Performed By: #### L IPID, CMP, T4, TSH, FT3 #### [facility] [address] [address] [address] Mendel Herron Triglyceride [Mass/Vol] 247 mg/dL Critically high <=150 [facility] Comment on above: Performed By: #### L IPID, CMP, T4, TSH, FT3 #### [facility] [address] [address] [address] Mendel Herron VLDL CALC 49.4 mg/dL Normal [facility] Comment on above: Performed By: #### L IPID, CMP, T4, TSH, FT3 #### [facility] [address] [place] [address] Dr. Mendel Herron PROF 14(COMP METB)on 023 Albumin [Mass/Vol] 4.0 g/dL Normal 3.4-5.0 [facility] Comment on above: Performed By: #### L IPID, CMP, T4, TSH, FT3 #### [facility] [address] [address] [address] Mendel Herron Albumin/Globulin [Mass ratio] 0.9 {ratio} Normal [facility] Comment on above: Performed By: #### L IPID, CMP, T4, TSH, FT3 #### [facility] [address] [address] [address] Mendel Herron ALP [Catalytic activity/Vol] 115 U/L Normal 46-116 [facility] Comment on above: Performed By: #### L IPID, CMP, T4, TSH, FT3 #### [facility] [address] [address] [address] Mendel Herron ALT [Catalytic activity/Vol] 30 U/L Normal 14-59 [facility] Comment on above: Performed By: #### L IPID, CMP, T4, TSH, FT3 #### [facility] [address] [place] [address] Dr. Mendel Herron Anion gap [Moles/Vol] 12.7 mmol/L Normal [facility] Comment on above: Performed By: #### L IPID, CMP, T4, TSH, FT3 #### [facility] [address] [address] [address] Mendel Herron AST [Catalytic activity/Vol] 18 U/L Normal 15-37 [facility] Comment on above: Performed By: #### L IPID, CMP, T4, TSH, FT3 #### [facility] [address] [place] [address] Dr. Mendel Herron Bilirubin [Mass/Vol] 0.7 mg/dL Normal 0.2-1.0 [facility] Comment on above: Performed By: #### L IPID, CMP, T4, TSH, FT3 #### [facility] [address] [place] [address] Dr. Mendel Herron Calcium [Mass/Vol] 9.7 mg/dL Normal 8.5-10.1 [facility] Comment on above: Performed By: #### L IPID, CMP, T4, TSH, FT3 #### [facility] [address] [place] [address] Dr. Mendel Herron Chloride [Moles/Vol] 103 mmol/L Normal 98-107 [facility] Comment on above: Performed By: #### L IPID, CMP, T4, TSH, FT3 #### [facility] [address] [place] [address] Dr. Mendel Herron CO2 [Moles/Vol] 26.5 mmol/L Normal 21.0-32.0 [facility] Comment on above: Performed By: #### L IPID, CMP, T4, TSH, FT3 #### [facility] [address] [place] [address] Dr. Mendel Herron Creatinine [Mass/Vol] 0.83 mg/dL Normal 0.55-1.02 [facility] Comment on above: Performed By: #### L IPID, CMP, T4, TSH, FT3 #### [facility] [address] [place] [address] Dr. Mendel Herron EGFR-AF CAMEROONIAN >60 Normal >=60 [facility] Comment on above: Performed By: #### L IPID, CMP, T4, TSH, FT3 #### [facility] [address] [place] [address] Dr. Mendel Herron EGFR-NON AF CAMEROONIAN >60 Normal >=60 [facility] Comment on above: Performed By: #### L IPID, CMP, T4, TSH, FT3 #### [facility] [address] [place] [address] Dr. Mendel Herron Globulin (S) [Mass/Vol] 4.4 g/dL Normal [facility] Comment on above: Performed By: #### L IPID, CMP, T4, TSH, FT3 #### [facility] [address] [place] [address] Dr. Mendel Herron Glucose [Mass/Vol] 97 mg/dL Normal 74-106 [facility] Comment on above: Performed By: #### L IPID, CMP, T4, TSH, FT3 #### [facility] [address] [place] [address] Dr. Mendel Herron Potassium [Moles/Vol] 4.2 mmol/L Normal 3.5-5.1 [facility] Comment on above: Performed By: #### L IPID, CMP, T4, TSH, FT3 #### [facility] [address] [place] [address] Dr. Mendel Herron Protein [Mass/Vol] 8.4 g/dL Critically high 6.4-8.2 [facility] Comment on above: Performed By: #### L IPID, CMP, T4, TSH, FT3 #### [facility] [address] [place] [address] Dr. Mendel Herron Sodium [Moles/Vol] 138 mmol/L Normal 136-145 [facility] Comment on above: Performed By: #### L IPID, CMP, T4, TSH, FT3 #### [facility] [address] [place] [address] Dr. Mendel Herron Urea nitrogen [Mass/Vol] 12.0 mg/dL Normal 7.0-18.0 [facility] Comment on above: Performed By: #### L IPID, CMP, T4, TSH, FT3 #### [facility] [address] [place] [address] Dr. Mendel Herron Urea nitrogen/Creatinine [Mass ratio] 14.5 mg/mg Normal [facility] Comment on above: Performed By: #### L IPID, CMP, T4, TSH, FT3 #### [facility] [address] [place] [address] Dr. Mendel Herron T4on 09-09-2022 T4 [Mass/Vol] 8.80 ug/dL Normal 4.80-13.90 [facility] Comment on above: Performed By: #### L IPID, CMP, T4, TSH, FT3 #### [facility] [address] [place] [address] Dr. Mendel Herron TSHon 09-09-2022 TSH 0.898 uIU/mL Normal 0.358-3.740 [facility] Comment on above: Performed By: #### L IPID, CMP, T4, TSH, FT3 #### [facility] [address] [place] [address] Dr. Mendel Herron VITAMIN D 25 OHon 09-09-2022 VIT D 25-OH 24.0 ng/mL Normal [facility] Comment on above: Performed By: #### L IPID, CMP, T4, TSH, FT3 #### [facility] [address] [place] [address] Dr. Mendel Herron VIT D RANGES SEE BELOW Normal [facility] Comment on above: Result Comment: <20 ng/mL Vit D deficient 20 - <30 ng/mL Vit D insufficient 30 - 100 ng/mL Vit D sufficient >100 ng/mL Potential Toxicity Performed By: #### L IPID, CMP, T4, TSH, FT3 #### [facility] [address] [id number] Mendel Herron NM HEPATOBILIARY SCAN W [...] VIVI GARY Date: 2022-08-20 16:07 Normal [facility] US SINGLE QUAD RT UPPERon US [...] Date: 2022-08-11 15:50 Normal [facility] CARDIAC SUBHA ADMITon 023 CK [Catalytic activity/Vol] 30 U/L Normal 26-192 [facility] Comment on above: Performed By: #### L IPID, CMP, T4, TSH, FT3 #### [facility] [address] [address] [address] Mendel Herron CK.MB [Mass/Vol] 1.02 ng/mL Normal <=3.60 [facility] Comment on above: Performed By: #### L IPID, CMP, T4, TSH, FT3 #### [facility] [address] [place] [address] Dr. Mendel Herron HSTROP 32.8 pg/mL Normal 4.0-51.3 [facility] Comment on above: Result Comment: CUT- OFF POINTS HAVE BEEN ESTABLISHED BASED ON THE FOURTH UNIVERSAL DEFINITIONS OF MYOCARDIAL INFARCTION. THE UPPER REFERENCE LIMIT (URL) OF TROPONIN, DEFINED THE 99TH PERCENTILE OF cTnI DISTRIBUTION IN A REFERENCE POPULATION, HAS BEEN CONFIRMED THE DECISION THRESHOLD FOR IA DIAGNOSIS. Performed By: #### L IPID, CMP, T4, TSH, FT3 #### [facility] [address] [place] [address] Dr. Mendel Herron SONYA 23 ng/mL Normal 9-82 [facility] Comment on above: Performed By: #### L IPID, CMP, T4, TSH, FT3 #### [facility] [address] [address] [address] Mendel Herron CBC AUTO DIFFon 08-09-2022 BASO # 0.0 103/ul Normal 0.0-0.1 [facility] Comment on above: Performed By: #### L IPID, CMP, T4, TSH, FT3 #### [facility] [address] [place] [address] Dr. Mendel Herron Basophils/100 WBC (Bld) 0.3 % Normal 0.2-2.0 [facility] Comment on above: Performed By: #### L IPID, CMP, T4, TSH, FT3 #### [facility] [address] [place] [address] Dr. Mendel Herron EO # 0.0 103/ul Normal 0.0-0.7 [facility] Comment on above: Performed By: #### L IPID, CMP, T4, TSH, FT3 #### [facility] [address] [place] [address] Dr. Mendel Herron Eosinophils/100 WBC (Bld) 0.3 % Critically low 0.9-7.0 [facility] Comment on above: Performed By: #### L IPID, CMP, T4, TSH, FT3 #### [facility] [address] [place] [address] Dr. Mendel Herron Erythrocyte distribution width (RBC) [Ratio] 13.1 % Normal 11.0-15.0 [facility] Comment on above: Performed By: #### L IPID, CMP, T4, TSH, FT3 #### [facility] [address] [place] [address] Dr. Mendel Herron Hematocrit (Bld) [Volume fraction] 42.7 % Normal 36.0-48.0 [facility] Comment on above: Performed By: #### L IPID, CMP, T4, TSH, FT3 #### [facility] [address] [place] [address] Dr. Mendel Herron Hemoglobin (Bld) [Mass/Vol] 15.4 g/dL Normal 12.0-16.0 [facility] Comment on above: Performed By: #### L IPID, CMP, T4, TSH, FT3 #### [facility] [address] [place] [address] Dr. Mendel Herron IG # 0.05 10e3/ul Critically high 0.00-0.03 [facility] Comment on above: Performed By: #### L IPID, CMP, T4, TSH, FT3 #### [facility] [address] [place] [address] Dr. Mendel Herron IG % 0.4 % Normal 0.0-0.5 [facility] Comment on above: Performed By: #### L IPID, CMP, T4, TSH, FT3 #### [facility] [address] [place] [address] Dr. Mendel Herron LYMPH # 2.5 103/ul Normal 1.2-3.8 [facility] Comment on above: Performed By: #### L IPID, CMP, T4, TSH, FT3 #### [facility] [address] [place] [address] Dr. Mendel Herron Lymphocytes/100 WBC (Bld) 21.2 % Normal 20.5-60.0 [facility] Comment on above: Performed By: #### L IPID, CMP, T4, TSH, FT3 #### [facility] [address] [place] [address] Dr. Mendel Herron MANUAL DIFF REQ NO Normal [facility] Comment on above: Performed By: #### L IPID, CMP, T4, TSH, FT3 #### [facility] [address] [place] [address] Dr. Mendel Herron MCH (RBC) [Entitic mass] 31.7 pg Normal 26.7-34.0 [facility] Comment on above: Performed By: #### L IPID, CMP, T4, TSH, FT3 #### [facility] [address] [place] [address] Dr. Mendel Herron MCHC (RBC) [Mass/Vol] 36.1 g/dL Critically high 29.9-35.2 [facility] Comment on above: Performed By: #### L IPID, CMP, T4, TSH, FT3 #### [facility] [address] [place] [address] Dr. Mendel Herron MCV (RBC) [Entitic vol] 87.9 fL Normal 81.0-99.0 [facility] Comment on above: Performed By: #### L IPID, CMP, T4, TSH, FT3 #### [facility] [address] [place] [address] Dr. Mendel Herron MONO # 0.7 103/ul Normal 0.3-0.8 [facility] Comment on above: Performed By: #### L IPID, CMP, T4, TSH, FT3 #### [facility] [address] [address] [address] Mendel Herron Monocytes/100 WBC (Bld) 6.3 % Normal 1.7-12.0 [facility] Comment on above: Performed By: #### L IPID, CMP, T4, TSH, FT3 #### [facility] [address] [place] [address] Dr. Mendel Herron NEUT # 8.4 103/ul Critically high 1.4-6.[address] [facility] Comment on above: Performed By: #### L IPID, CMP, T4, TSH, FT3 #### [facility] [address] [place] [address] Dr. Mendel Herron Neutrophils/100 WBC (Bld) 71.5 % Normal 43.0-75.0 [facility] Comment on above: Performed By: #### L IPID, CMP, T4, TSH, FT3 #### [facility] [address] [place] [address] Dr. Mendel Herron Platelet mean volume (Bld) [Entitic vol] 9.8 fL Normal 9.5-13.5 [facility] Comment on above: Performed By: #### L IPID, CMP, T4, TSH, FT3 #### [facility] [address] [place] [address] Dr. Mendel Herron PLT 374 103/ul Normal 150-450 [facility] Comment on above: Performed By: #### L IPID, CMP, T4, TSH, FT3 #### [facility] [address] [place] [address] Dr. Mendel Herron RBC 4.86 106/ul Normal 4.20-5.40 [facility] Comment on above: Performed By: #### L IPID, CMP, T4, TSH, FT3 #### [facility] [address] [place] [address] Dr. Mendel Herron WBC 11.7 103/ul Critically high 4.0-11.0 [facility] Comment on above: Performed By: #### L IPID, CMP, T4, TSH, FT3 #### [facility] [address] [address] [address] HEAD WO CONon [...] Date: 2022-08-09 15:23 Normal [facility] Covid-19 PCR (CVDTB)on 07-20 SARS-CoV-2 (COVID-19) RNA DEIRDRE+probe Ql (Unsp spec) Not detected Normal NOT DETECTED [facility] Comment on above: Result Comment: When [...] for this test is supported by the [employer] of Health and Human Service's declaration [...] CMP, T4, TSH, FT3 #### [facility] [address] [place] [address] Dr. Mendel Herron ER URINE PROFILEon 3 Bilirubin Ql (U) Negative Normal NEGATIVE [facility] Comment on above: Performed By: #### L IPID, CMP, T4, TSH, FT3 #### [facility] [address] [place] [address] Dr. Mendel Herron Clarity (U) CLEAR Normal CLEAR [facility] Comment on above: Performed By: #### L IPID, CMP, T4, TSH, FT3 #### [facility] [address] [place] [address] Dr. Mendel Herron Color (U) LT. YELLOW Normal YELLOW [facility] Comment on above: Performed By: #### L IPID, CMP, T4, TSH, FT3 #### [facility] [address] [place] [address] Dr. Mendel Herron ERUAHD A micrscopic examination will be performed if indicated. Normal [facility] Comment on above: Performed By: #### L IPID, CMP, T4, TSH, FT3 #### [facility] [address] [place] [address] Dr. Mendel Herron Glucose Ql (U) Negative Normal NEGATIVE [facility] Comment on above: Performed By: #### L IPID, CMP, T4, TSH, FT3 #### [facility] [address] [place] [address] Dr. Mendel Herron Hemoglobin Ql (U) TRACE-INTACT Abnormal NEGATIVE [facility] Comment on above: Performed By: #### L IPID, CMP, T4, TSH, FT3 #### [facility] [address] [place] [address] Dr. Mendel Herron Ketones Ql (U) Negative Normal NEGATIVE [facility] Comment on above: Performed By: #### L IPID, CMP, T4, TSH, FT3 #### [facility] [address] [place] [address] Dr. Mendel Herron LEUKOCYTES Negative Normal NEGATIVE [facility] Comment on above: Performed By: #### L IPID, CMP, T4, TSH, FT3 #### [facility] [address] [place] [address] Dr. Mendel Herron Nitrite Ql (U) Negative Normal NEGATIVE [facility] Comment on above: Performed By: #### L IPID, CMP, T4, TSH, FT3 #### [facility] [address] [place] [address] Dr. Mendel Herron pH (U) 5.0 [pH] Normal 5-9 [facility] Comment on above: Performed By: #### L IPID, CMP, T4, TSH, FT3 #### [facility] [address] [place] [address] Dr. Mendel Herron SPEC GRAVITY 1.015 Normal 1.005-<=1.025 [facility] Comment on above: Performed By: #### L IPID, CMP, T4, TSH, FT3 #### [facility] [address] [place] [address] Dr. Mednel Herron UA PROTEIN Negative Normal NEGATIVE/ TRACE [facility] Comment on above: Performed By: #### L IPID, CMP, T4, TSH, FT3 #### [facility] [address] [place] [address] Dr. Mendel Herron UR MICRO IND INDICATED Normal [facility] Comment on above: Performed By: #### L IPID, CMP, T4, TSH, FT3 #### [facility] [address] [place] [address] Dr. Mendel Herron Urobilinogen Qn (U) 0.2 {James'U}/dL Normal 0.2 - 1. 0 [facility] Comment on above: Performed By: #### L IPID, CMP, T4, TSH, FT3 #### [facility] [address] [place] [address] Dr. Mendel Herron LIPASEon 08-09-2022 Lipase [Catalytic activity/Vol] 114.0 U/L Normal 73.0-393.0 [facility] Comment on above: Performed By: #### L IPA, BMP, CMADM #### [facility] [address] [address] [address] Mendel Herron PROF CHEM 8 (BAS METB)on Anion gap [Moles/Vol] 18.9 mmol/L Normal [facility] Comment on above: Performed By: #### L IPA, BMP, CMADM #### [facility] [address] [address] [address] Mendel Herron Calcium [Mass/Vol] 9.4 mg/dL Normal 8.5-10.1 [facility] Comment on above: Performed By: #### L IPA, BMP, CMADM #### [facility] [address] [address] [address] Mendel Herron Chloride [Moles/Vol] 97 mmol/L Critically low 98-107 [facility] Comment on above: Performed By: #### L IPA, BMP, CMADM #### [facility] [address] [place] [address] Dr. Mendel Herron CO2 [Moles/Vol] 26.0 mmol/L Normal 21.0-32.0 [facility] Comment on above: Performed By: #### L IPA, BMP, CMADM #### [facility] [address] [place] [address] Dr. Mendel Herron Creatinine [Mass/Vol] 0.85 mg/dL Normal 0.55-1.02 [facility] Comment on above: Performed By: #### L IPA, BMP, CMADM #### [facility] [address] [address] [address] Mendel Herron EGFR-AF CAMEROONIAN >60 Normal >=60 [facility] Comment on above: Performed By: #### L IPA, BMP, CMADM #### [facility] [address] [place] [address] Dr. Mendel Herron EGFR-NON AF CAMEROONIAN >60 Normal >=60 [facility] Comment on above: Performed By: #### L IPA, BMP, CMADM #### [facility] [address] [place] [address] Dr. Mendel Herron Glucose [Mass/Vol] 120 mg/dL Critically high 74-106 [facility] Comment on above: Performed By: #### L IPA, BMP, CMADM #### [facility] [address] [place] [address] Dr. Mendel Herron Potassium [Moles/Vol] 3.9 mmol/L Normal 3.5-5.1 [facility] Comment on above: Performed By: #### L IPA, BMP, CMADM #### [facility] [address] [place] [address] Dr. Mendel Herron Sodium [Moles/Vol] 138 mmol/L Normal 136-145 [facility] Comment on above: Performed By: #### L IPA, BMP, CMADM #### [facility] [address] [place] [address] Dr. Mendel Herron Urea nitrogen [Mass/Vol] 17.0 mg/dL Normal 7.0-18.0 [facility] Comment on above: Performed By: #### L IPA, BMP, CMADM #### [facility] [address] [place] [address] Dr. Mendel Herron Urea nitrogen/Creatinine [Mass ratio] 20.0 mg/mg Normal [facility] Comment on above: Performed By: #### L IPA, BMP, CMADM #### [facility] [address] [place] [address] Dr. Mendel Herron TROPONIN, HIGH SENSITIVITYon 08-09-2022 HSTROP 32.5 pg/mL Normal 4.0-51.3 [facility] Comment on above: Result Comment: CUT- OFF POINTS HAVE BEEN ESTABLISHED BASED ON THE FOURTH UNIVERSAL DEFINITIONS OF MYOCARDIAL INFARCTION. THE UPPER REFERENCE LIMIT (URL) OF TROPONIN, DEFINED THE 99TH PERCENTILE OF cTnI DISTRIBUTION IN A REFERENCE POPULATION, HAS BEEN CONFIRMED THE DECISION THRESHOLD FOR IA DIAGNOSIS. Performed By: #### L IPID, CMP, T4, TSH, FT3 #### [facility] [address] [place] [address] Dr. Mendel Herron URINE MICROSCOPIC ONLYon BACTERIA NONE SEEN Normal NONE SEEN [facility] Comment on above: Performed By: #### L IPID, CMP, T4, TSH, FT3 #### [facility] [address] [address] [address] Mendel Herron Bacteria identified Cx Nom (U) NOT INDICATED Normal [facility] Comment on above: Performed By: #### L IPID, CMP, T4, TSH, FT3 #### [facility] [address] [address] [address] Mendel Herron CAST NONE SEEN Normal NONE SEEN [facility] Comment on above: Performed By: #### L IPID, CMP, T4, TSH, FT3 #### [facility] [address] [address] [address] Mendel Herron Crystals LM Nom (Urine sed) NONE SEEN Normal NONE SEEN [facility] Comment on above: Performed By: #### L IPID, CMP, T4, TSH, FT3 #### [facility] [address] [place] [address] Dr. Mendel Herron Epithelial cells LM Ql (Urine sed) NONE SEEN Normal NONE SEEN /RARE [facility] Comment on above: Performed By: #### L IPID, CMP, T4, TSH, FT3 #### [facility] [address] [address] [address] Mendel Herron MUCOUS NONE SEEN Normal NONE SEEN [facility] Comment on above: Performed By: #### L IPID, CMP, T4, TSH, FT3 #### [facility] [address] [place] [address] Dr. Mendel Herron RBC 0-2 Normal 0-2 [facility] Comment on above: Performed By: #### L IPID, CMP, T4, TSH, FT3 #### [facility] [address] [address] [address] Mendel Herron WBC NONE SEEN Normal NONE SEEN [facility] Comment on above: Performed By: #### L IPID, CMP, T4, TSH, FT3 #### [facility] [address] [place] [address] Dr. Mendel Herron XR CHEST 1 Von [...] by: MARY DIETZ Date: 2022-08-09 15:18 Normal [facility] H PYLORI ANTIBODY IGGon 07-20 H. PYLORI IGG ABS 0.11 Index Value Normal 0.00-0.79 [facility] Comment on above: Result Comment: Nega tive <0.80 Equivocal 0.80 - 0.89 Positive >0.89 Performed By: #### L IPID, CMP, T4, TSH, FT3 #### [facility] [address] [place] [address] Dr. Mendel Herron AMYLASEon 08-06-2022 Amylase [Catalytic activity/Vol] 57 U/L Normal 25-115 [facility] [facility] Comment on above: Performed By: #### L IPID, CMP, T4, TSH, FT3 #### [facility] [address] [place] [address] Dr. Mendel Herron CBC AUTO DIFFon 08-06-2022 BASO # 0.1 103/ul Normal 0.0-0.1 [facility] Comment on above: Performed By: #### L IPID, CMP, T4, TSH, FT3 #### [facility] [address] [place] [address] Dr. Mendel Herron Basophils/100 WBC (Bld) 0.7 % Normal 0.2-2.0 [facility] Comment on above: Performed By: #### L IPID, CMP, T4, TSH, FT3 #### [facility] [address] [place] [address] Dr. Mendel Herron EO # 0.1 103/ul Normal 0.0-0.7 [facility] Comment on above: Performed By: #### L IPID, CMP, T4, TSH, FT3 #### [facility] [address] [place] [address] Dr. Mendel Herron Eosinophils/100 WBC (Bld) 0.5 % Critically low 0.9-7.0 [facility] Comment on above: Performed By: #### L IPID, CMP, T4, TSH, FT3 #### [facility] [address] [place] [address] Dr. Mendel Herron Erythrocyte distribution width (RBC) [Ratio] 13.7 % Normal 11.0-15.0 [facility] Comment on above: Performed By: #### L IPID, CMP, T4, TSH, FT3 #### [facility] [address] [place] [address] Dr. Mendel Herron Hematocrit (Bld) [Volume fraction] 46.2 % Normal 36.0-48.0 [facility] Comment on above: Performed By: #### L IPID, CMP, T4, TSH, FT3 #### [facility] [address] [place] [address] Dr. Mendel Herron Hemoglobin (Bld) [Mass/Vol] 15.1 g/dL Normal 12.0-16.0 [facility] Comment on above: Performed By: #### L IPID, CMP, T4, TSH, FT3 #### [facility] [address] [place] [address] Dr. Mendel Herron IG # 0.06 10e3/ul Critically high 0.00-0.03 [facility] Comment on above: Performed By: #### L IPID, CMP, T4, TSH, FT3 #### [facility] [address] [place] [address] Dr. Mendel Herron IG % 0.6 % Critically high 0.0-0.[address] [facility] Comment on above: Performed By: #### L IPID, CMP, T4, TSH, FT3 #### [facility] [address] [place] [address] Dr. Mendel Herron LYMPH # 2.5 103/ul Normal 1.2-3.8 [facility] Comment on above: Performed By: #### L IPID, CMP, T4, TSH, FT3 #### [facility] [address] [place] [address] Dr. Mendel Herron Lymphocytes/100 WBC (Bld) 23.4 % Normal 20.5-60.0 [facility] Comment on above: Performed By: #### L IPID, CMP, T4, TSH, FT3 #### [facility] [address] [place] [address] Dr. Mendel Herron MANUAL DIFF REQ NO Normal [facility] Comment on above: Performed By: #### L IPID, CMP, T4, TSH, FT3 #### [facility] [address] [place] [address] Dr. Mendel Herron MCH (RBC) [Entitic mass] 31.4 pg Normal 26.7-34.0 [facility] Comment on above: Performed By: #### L IPID, CMP, T4, TSH, FT3 #### [facility] [address] [place] [address] Dr. Mendel Herron MCHC (RBC) [Mass/Vol] 32.7 g/dL Normal 29.9-35.2 [facility] Comment on above: Performed By: #### L IPID, CMP, T4, TSH, FT3 #### [facility] [address] [place] [address] Dr. Mendel Herron MCV (RBC) [Entitic vol] 96.0 fL Normal 81.0-99.0 [facility] Comment on above: Performed By: #### L IPID, CMP, T4, TSH, FT3 #### [facility] [address] [place] [address] Dr. Mendel Herron MONO # 0.6 103/ul Normal 0.3-0.8 [facility] Comment on above: Performed By: #### L IPID, CMP, T4, TSH, FT3 #### [facility] [address] [place] [address] Dr. Mendel Herron Monocytes/100 WBC (Bld) 6.0 % Normal 1.7-12.0 [facility] Comment on above: Performed By: #### L IPID, CMP, T4, TSH, FT3 #### [facility] [address] [place] [address] Dr. Mendel Herron NEUT # 7.4 103/ul Critically high 1.4-6.[address] [facility] Comment on above: Performed By: #### L IPID, CMP, T4, TSH, FT3 #### [facility] [address] [address] [address] Mendel Herron Neutrophils/100 WBC (Bld) 68.8 % Normal 43.0-75.0 [facility] Comment on above: Performed By: #### L IPID, CMP, T4, TSH, FT3 #### [facility] [address] [address] [address] Mendel Herron Platelet mean volume (Bld) [Entitic vol] 9.7 fL Normal 9.5-13.5 [facility] Comment on above: Performed By: #### L IPID, CMP, T4, TSH, FT3 #### [facility] [address] [place] [address] Dr. Mendel Herron PLT 331 103/ul Normal 150-450 [facility] Comment on above: Performed By: #### L IPID, CMP, T4, TSH, FT3 #### [facility] [address] [place] [address] Dr. Mendel Herron RBC 4.81 106/ul Normal 4.20-5.40 [facility] Comment on above: Performed By: #### L IPID, CMP, T4, TSH, FT3 #### [facility] [address] [place] [address] Dr. Mendel Herron WBC 10.7 103/ul Normal 4.0-11.0 [facility] Comment on above: Performed By: #### L IPID, CMP, T4, TSH, FT3 #### [facility] [address] [place] [address] HEAD WO CONon [...] by: JEAN LOPES Date: 2022-08-06 08:39 Normal [facility] LIPASEon 08-06-2022 Lipase [Catalytic activity/Vol] 125.0 U/L Normal 73.0-393.0 [facility] Comment on above: Performed By: #### L IPID, CMP, T4, TSH, FT3 #### [facility] [address] [place] [address] Dr. Mendel Herron PROF 14(COMP METB)on 023 Albumin [Mass/Vol] 3.7 g/dL Normal 3.4-5.0 [facility] Comment on above: Performed By: #### L IPID, CMP, T4, TSH, FT3 #### [facility] [address] [address] [address] Mendel Herron Albumin/Globulin [Mass ratio] 0.9 {ratio} Normal [facility] Comment on above: Performed By: #### L IPID, CMP, T4, TSH, FT3 #### [facility] [address] [address] [address] Mendel Herron ALP [Catalytic activity/Vol] 110 U/L Normal 46-116 [facility] Comment on above: Performed By: #### L IPID, CMP, T4, TSH, FT3 #### [facility] [address] [address] [address] Mendel Herron ALT [Catalytic activity/Vol] 25 U/L Normal 14-59 [facility] Comment on above: Performed By: #### L IPID, CMP, T4, TSH, FT3 #### [facility] [address] [address] [address] Mendel Herron Anion gap [Moles/Vol] 14.0 mmol/L Normal [facility] Comment on above: Performed By: #### L IPID, CMP, T4, TSH, FT3 #### [facility] [address] [address] [address] Mendel Herron AST [Catalytic activity/Vol] 16 U/L Normal 15-37 [facility] Comment on above: Performed By: #### L IPID, CMP, T4, TSH, FT3 #### [facility] [address] [address] [address] Mendel Herron Bilirubin [Mass/Vol] 0.6 mg/dL Normal 0.2-1.0 [facility] Comment on above: Performed By: #### L IPID, CMP, T4, TSH, FT3 #### [facility] [address] [place] [address] Dr. Mendel Herron Calcium [Mass/Vol] 9.3 mg/dL Normal 8.5-10.1 [facility] Comment on above: Performed By: #### L IPID, CMP, T4, TSH, FT3 #### [facility] [address] [place] [address] Dr. Mendel Herron Chloride [Moles/Vol] 103 mmol/L Normal 98-107 [facility] Comment on above: Performed By: #### L IPID, CMP, T4, TSH, FT3 #### [facility] [address] [place] [address] Dr. Mendel Herron CO2 [Moles/Vol] 27.3 mmol/L Normal 21.0-32.0 [facility] Comment on above: Performed By: #### L IPID, CMP, T4, TSH, FT3 #### [facility] [address] [place] [address] Dr. Mendel Herron Creatinine [Mass/Vol] 0.71 mg/dL Normal 0.55-1.02 [facility] Comment on above: Performed By: #### L IPID, CMP, T4, TSH, FT3 #### [facility] [address] [place] [address] Dr. Mendel Herron EGFR-AF CAMEROONIAN >60 Normal >=60 [facility] Comment on above: Performed By: #### L IPID, CMP, T4, TSH, FT3 #### [facility] [address] [address] [address] Mendel Herron EGFR-NON AF CAMEROONIAN >60 Normal >=60 [facility] Comment on above: Performed By: #### L IPID, CMP, T4, TSH, FT3 #### [facility] [address] [place] [address] Dr. Mendel Herron Globulin (S) [Mass/Vol] 4.3 g/dL Normal [facility] Comment on above: Performed By: #### L IPID, CMP, T4, TSH, FT3 #### [facility] [address] [address] [address] Mendel Herron Glucose [Mass/Vol] 102 mg/dL Normal 74-106 [facility] Comment on above: Performed By: #### L IPID, CMP, T4, TSH, FT3 #### [facility] [address] [place] [address] Dr. Mendel Herron Potassium [Moles/Vol] 4.3 mmol/L Normal 3.5-5.1 [facility] Comment on above: Performed By: #### L IPID, CMP, T4, TSH, FT3 #### [facility] [address] [place] [address] Dr. Mendel Herron Protein [Mass/Vol] 8.0 g/dL Normal 6.4-8.2 [facility] Comment on above: Performed By: #### L IPID, CMP, T4, TSH, FT3 #### [facility] [address] [place] [address] Dr. Mendel Herron Sodium [Moles/Vol] 140 mmol/L Normal 136-145 [facility] Comment on above: Performed By: #### L IPID, CMP, T4, TSH, FT3 #### [facility] [address] [place] [address] Dr. Mendel Herron Urea nitrogen [Mass/Vol] 19.0 mg/dL Critically high 7.0-18.0 [facility] Comment on above: Performed By: #### L IPID, CMP, T4, TSH, FT3 #### [facility] [address] [place] [address] Dr. Mendel Herron Urea nitrogen/Creatinine [Mass ratio] 26.8 mg/mg Normal [facility] Comment on above: Performed By: #### L IPID, CMP, T4, TSH, FT3 #### [facility] [address] [place] [address] Dr. Mendel Herron Covid-19 PCR ([facility])on 06-19 SARS-CoV-2 (COVID-19) RNA DEIRDRE+probe Ql (Unsp spec) Not detected Normal NOT DETECTED [facility] Comment on above: Result Comment: This test is not yet approved or cleared by the [place] FDA. When there are no FDA-approved or cleared tests available, and other criteria are met, FDA can make tests available under an emergency access mechanism called an Emergency Use Authorization (EUA). The EUA for this test is supported by the [place] of Health and Human Service's (HHS's) declaration [...] By: #### C VDTBH #### [facility] [address] [place] [address] Dr. Mendel Herron INFLUENZA A AND B AGon 06-19 INFLUANEGH SEE BELOW Normal [facility] Comment on above: Result Comment: Nega tive for Flu A protein angiten. Infection due to Flu A cannot be ruled out. Flu A angiten in the sample may be below the detection limit of the test. Performed By: #### L IPID, CMP, T4, TSH, FT3 #### [facility] [address] [place] [address] Dr. Mendel Herron INFLUBNEGH SEE BELOW Normal [facility] Comment on above: Result Comment: Nega tive for Flu B protein antigen. Infection due to Flu B cannot be ruled out. Flu B antigen in the sample may be below the detection limit of the test. Performed By: #### L IPID, CMP, T4, TSH, FT3 #### [facility] [address] [place], [place] [address] Dr. Mendel Herron INFLUENZA A AG Negative Normal NEGATIVE SEE COMMENT [facility] Comment on above: Performed By: #### L IPID, CMP, T4, TSH, FT3 #### [facility] [address] [place], [place] [address] Dr. Mendel Herron INFLUENZA B AG Negative Normal NEGATIVE SEE COMMENT [facility] Comment on above: Performed By: #### L IPID, CMP, T4, TSH, FT3 #### [facility] [address] [address] [address] Mendel Herron Covid-19 PCR ([facility])on 04-19 SARS-CoV-2 (COVID-19) RNA DEIRDRE+probe Ql (Unsp spec) Not detected Normal NOT DETECTED [facility] Comment on above: Result Comment: This test is not yet approved or cleared by the [place] FDA. When there are no FDA-approved or cleared tests available, and other criteria are met, FDA can make tests available under an emergency access mechanism called an Emergency Use Authorization (EUA). The EUA for this test is supported by the [place] of Health and Human Service's (HHS's) declaration [...] CMP, T4, TSH, FT3 #### [facility] [address] [address] [address] Mendel Herron INFLUENZA A AND B AGon 05-11 [facility] SEE BELOW Normal [facility] Comment on above: Result Comment: Nega tive for Flu A protein angiten. Infection due to Flu A cannot be ruled out. Flu A angiten in the sample may be below the detection limit of the test. Performed By: #### L IPID, CMP, T4, TSH, FT3 #### [facility] [address] [address] [address] Mendel Herron INFLUBNEGH SEE BELOW Normal [facility] Comment on above: Result Comment: Nega tive for Flu B protein antigen. Infection due to Flu B cannot be ruled out. Flu B antigen in the sample may be below the detection limit of the test. Performed By: #### L IPID, CMP, T4, TSH, FT3 #### [facility] [address] [address] [address] Mendel Herron INFLUENZA A AG Negative Normal NEGATIVE SEE COMMENT [facility] Comment on above: Performed By: #### L IPID, CMP, T4, TSH, FT3 #### [facility] [address] [address] [address] Mendel Herron INFLUENZA B AG Negative Normal NEGATIVE SEE COMMENT [facility] Comment on above: Performed By: #### L IPID, CMP, T4, TSH, FT3 #### [facility] [address] [address] [address] Mendel Herron INTERNAL CONTROLS Within Normal Limits Normal Wi thin Normal Limits [facility] Comment on above: Performed By: #### L IPID, CMP, T4, TSH, FT3 #### [facility] [address] [address] [address] Mendel Herron Comprehensive Metabolic Empo n 12-23-2021 Albumin [Mass/Vol] 3.7 g/dL Normal 3.2-5.5 [facility] Comment on above: Performed By: #### E BS CMP, EBS LIPID #### [facility] [address] Albumin/Globulin [Mass ratio] 1.0 {ratio} Normal [facility] Comment on above: Performed By: #### E BS CMP, EBS LIPID #### [facility] [address] [id number] [place] ALP [Catalytic activity/Vol] 159 U/L High 32-92 [facility] Comment on above: Performed By: #### E BS CMP, EBS LIPID #### [facility] [address] [id number] [place] ALT [Catalytic activity/Vol] 28 U/L Normal 10-60 [facility] Comment on above: Performed By: #### E BS CMP, EBS LIPID #### [facility] [address] [id number] [place] AST [Catalytic activity/Vol] 27 U/L Normal 10-42 [facility] Comment on above: Performed By: #### E BS CMP, EBS LIPID #### [facility] [address] Bilirubin [Mass/Vol] 1.2 mg/dL Normal 0.3-1.2 [facility] Comment on above: Performed By: #### E BS CMP, EBS LIPID #### [facility] [address] [place] [address] [place] Calcium [Mass/Vol] 9.2 mg/dL Normal 8.2-10.2 [facility] Comment on above: Performed By: #### E BS CMP, EBS LIPID #### [facility] [address] [place] [address] [place] Chloride [Moles/Vol] 100 mmol/L Normal 95-114 [facility] Comment on above: Performed By: #### E BS CMP, EBS LIPID #### [facility] [address] [id number] [place] CO2 [Moles/Vol] 20.6 mmol/L Low 22.0-30.0 [facility] Comment on above: Performed By: #### E BS CMP, EBS LIPID #### [facility] [address] [id number] [place] Creatinine [Mass/Vol] 0.57 mg/dL Normal 0.44-1.03 [facility] Comment on above: Performed By: #### E BS CMP, EBS LIPID #### [facility] [address] Estimated GFR ( Ni > 60 Normal [facility] Comment on above: Result Comment: GFR estimated reference range: According to KDOQI guidelines, <60 ml/min/1.73m2 is sufficient to diagnose a patient with chronic kidney disease. Performed By: #### E BS CMP, EBS LIPID #### [facility] [address] [place] [address] Estimated GFR (Non- Am > 60 Normal [facility] Comment on above: Performed By: #### E BS CMP, EBS LIPID #### [address] Globulin (S) [Mass/Vol] 3.7 g/dL Normal [facility] Comment on above: Performed By: #### E BS CMP, EBS LIPID #### [facility] [address] [place] [address] Glucose [Mass/Vol] 100 mg/dL Normal 70-100 [facility] Comment on above: Performed By: #### E BS CMP, EBS LIPID #### [address] Potassium [Moles/Vol] 3.9 mmol/L Normal 3.5-5.1 [facility] Comment on above: Performed By: #### E BS CMP, EBS LIPID #### [facility] [address] [place] [address] Protein [Mass/Vol] 7.4 g/dL Normal 6.1-7.9 [facility] Comment on above: Performed By: #### E BS CMP, EBS LIPID #### [facility] [address] [place] [address] Sodium [Moles/Vol] 135 mmol/L Low 136-146 [facility] Comment on above: Performed By: #### E BS CMP, EBS LIPID #### [facility] [address] [place] [address] Urea nitrogen [Mass/Vol] 12 mg/dL Normal 9-23 [facility] Comment on above: Performed By: #### E BS CMP, EBS LIPID #### [facility] [address] [place] [address] [place] Lipid Profileon 12-23-2021 Cholesterol [Mass/Vol] 213 mg/dL High 140-200 [facility] Comment on above: Result Comment: Chol less than 200 mg/dl low risk Chol 201-239 mg/dl borderline risk Chol 240 mg/dl and greater high risk Performed By: #### E BS CMP, EBS LIPID #### [facility] [address] [phone] [place] Cholesterol in HDL [Mass/Vol] 36 mg/dL Normal 35-85 [facility] Comment on above: Result Comment: HDL CHOL ATP-III CLASSIFICATION Cardiovascular Risk HDL > or equal to 60 mg/dL LOW HDL < 40 mg/dL HIGH Performed By: #### E BS CMP, EBS LIPID #### [facility] [address] [place] [address] [place] Cholesterol.total/Ch olesterol in HDL [Mass ratio] 5.9 {ratio} Normal <5.0 [facility] Comment on above: Result Comment: PERF ORMED BY: [place] [address] PATHOLOGIST MANAGER L[employer] MARIBEL AGUILLON M.D. Performed By: #### E BS CMP, EBS LIPID #### [facility] [address] [id number] [place] LDL Cholesterol,Calculat ed 151 mg/dL High 0-100 [facility] Comment on above: Result Comment: LDL ATP III CLASSIFICATION LDL less than 100 mg/dL Optimal LDL 100-129 mg/dL Near or above optimal LDL 130-159 mg/dL Borderline high LDL 160-189 mg/dL High LDL greater than 189 mg/dL Very high Performed By: #### E BS CMP, EBS LIPID #### [facility] [address] [id number] [place] Triglyceride w/Reflex 129 mg/dL Normal 35-149 [facility] Comment on above: Result Comment: TRIG ATP III CLASSIFICATION TRIG less than 150 mg/dL Normal TRIG 150-199 mg/dL Borderline high TRIG 200-500 mg/dL High TRIG greater than 500 mg/dL Very high Standard traceable to the Center for Disease Conrtrol and Prevention (CDC) test method. Performed By: #### E BS CMP, EBS LIPID #### [facility] [address] VLDL CHOLESTEROL 25 mg/dL Normal [facility] Comment on above: Performed By: #### E BS CMP, EBS LIPID #### [facility] [address] Covid-19 PCR ([facility])on 11-16 SARS-CoV-2 (COVID-19) RNA DEIRDRE+probe Ql (Unsp spec) Detected Critically abnormal NOT DETECTED [facility] Comment on above: Result Comment: This test is not yet approved or cleared by the [place] FDA. When there are no FDA-approved or cleared tests available, and other criteria are met, FDA can make tests available under an emergency access mechanism called an Emergency Use Authorization (EUA). The EUA for this test is supported by the [place] of Health and Human Service's declaration that [...] By: #### C VDTBH #### [facility] [address] [address] [address] Mendel Herron INFLUENZA A AND B AGon 12-02 INFLUANE SEE BELOW Normal [facility] Comment on above: Result Comment: Nega tive for Flu A protein angiten. Infection due to Flu A cannot be ruled out. Flu A angiten in the sample may be below the detection limit of the test. Performed By: #### L IPID, CMP, T4, TSH, FT3 #### [facility] [address] [address] [address] Mendel Herron INFLUBNEG SEE BELOW Normal [facility] Comment on above: Result Comment: Nega tive for Flu B protein antigen. Infection due to Flu B cannot be ruled out. Flu B antigen in the sample may be below the detection limit of the test. Performed By: #### L IPID, CMP, T4, TSH, FT3 #### [facility] [address] [place], [place] [address] Dr. Mendel Herron INFLUENZA A AG Negative Normal NEGATIVE SEE COMMENT [facility] Comment on above: Performed By: #### L IPID, CMP, T4, TSH, FT3 #### [facility] [address] [place], [place] [address] Dr. Mendel Herron INFLUENZA B AG Negative Normal NEGATIVE SEE COMMENT [facility] Comment on above: Performed By: #### L IPID, CMP, T4, TSH, FT3 #### [facility] [address] [place], [place] [address] Dr. Mendel Herron INTERNAL CONTROLS Within Normal Limits Normal Wi thin Normal Limits [facility] Comment on above: Performed By: #### L IPID, CMP, T4, TSH, FT3 #### [facility] [address] [place], [place] [address] Dr. Mendel Hreron Cardiovascular Lab Reporton 08-18-2021 Cardiovascular Lab Report [facility] Patient Name: [facility] S MR #: [id number] Department of Physician: Curtis Martinez MD Medicine Service Date: 08/18/2021 Division of Birthdate: 1970 Cardiology Room #: Adult Cardiovascular Services [place] [address] Cardiovascular Laboratory Report ATRIAL FLUTTER ABLATION AND [...] ab (more content not included)... Normal [facility] BILL Antinuclear Antibodieson 04-23-2021 Antinuclear Abs, IFA Negative Normal . [facility] Comment on above: Result Comment: Nega tive <1:80 Borderline 1:80 Positive >1:80 ICAP nomenclature: AC-0 For more information about Hep-2 cell patterns use ANApatterns.org, the official website for the International Consensus on Antinuclear Antibody (BILL) Patterns (ICAP). Performed at: - [facility] [id number] Federal Aid Coordinator: Ger Yen PhD, Phone: [phone] PERFORMED BY: [place] [address] PATHOLOGIST MANAGER [employer] MARIBEL AGUILLON M.D. Performed By: #### E SR, CRP, CBC, CREAT #### [address] #### BILL #### [facility] , C-Reactive Proteinon 021 C-Reactive Protein 0.7 mg/dL Normal 0.0-1.0 [facility] Comment on above: Result Comment: PERF ORMED BY: [place] [address] PATHOLOGIST MANAGER L[employer] MARIBEL AGUILLON M.D. Performed By: #### E SR, CRP, CBC, CREAT #### [facility] [address] [place] [address] #### BILL #### [facility] , Complement C3on 04-23-2021 Complement C3 170 mg/dL High 82-167 [facility] Comment on above: Result Comment: Perf ormed at: - [facility] [address] [id number] Federal Aid Coordinator: Ger Yen PhD, Phone: [phone] Performed By: #### A DDONUAPLUS #### [facility] [address] [place] [address] #### CH50, C3, C4 #### [facility] , Complement C4on 04-23-2021 Complement C4 14 mg/dL Normal 12-38 [facility] Comment on above: Performed By: #### A DDONUAPLUS #### [facility] [address] [place] [address] #### CH50, C3, C4 #### [facility] , Complement Total (CH50)on Complement Total (CH50) >60 Normal >41 [facility] Comment on above: Result Comment: Age [...] determine out of range values. Performed at: CB - [facility] [id number] [place], [place] [id number] Federal Aid Coordinator: Ger Yen PhD, Phone: [phone] PERFORMED BY: [place] [address] PATHOLOGIST MANAGER LIGHTING MARIBEL AGUILLON M.D. Performed By: #### E BS CMP, EBS LIPID #### [address] Complete Blood Count Auto Di ffon 04-23-2021 Basophils (Bld) [#/Vol] 0.1 10*3/uL Normal 0.0-0.2 [facility] Comment on above: Performed By: #### E SR, CRP, CBC, CREAT #### [address] #### BILL #### [facility] , Basophils/100 WBC (Bld) 0.7 % Normal . [facility] Comment on above: Performed By: #### E SR, CRP, CBC, CREAT #### [address] #### BILL #### [facility] , Eosinophils (Bld) [#/Vol] 0.1 10*3/uL Normal 0.0-0.45 [facility] Comment on above: Performed By: #### E SR, CRP, CBC, CREAT #### [place] [address] [place] #### BILL #### [facility] , Eosinophils/100 WBC (Bld) 0.5 % Normal . [facility] Comment on above: Performed By: #### E SR, CRP, CBC, CREAT #### [address] #### BILL #### [facility] , Erythrocyte distribution width (RBC) [Ratio] 18.0 % High 11.9-15.3 [facility] Comment on above: Performed By: #### E SR, CRP, CBC, CREAT #### [facility] [address] [place] [address] #### BILL #### [facility] , Hematocrit (Bld) [Volume fraction] 31.6 % Low 34.0-46.4 [facility] Comment on above: Performed By: #### E SR, CRP, CBC, CREAT #### [place] [address] [place] #### BILL #### [facility] , Hemoglobin (Bld) [Mass/Vol] 9.8 g/dL Low 11.8-15.4 [facility] Comment on above: Performed By: #### E SR, CRP, CBC, CREAT #### [address] #### BILL #### [facility] , Lymphocytes (Bld) [#/Vol] 1.7 10*3/uL Normal 1.00-4.8 [facility] Comment on above: Performed By: #### E SR, CRP, CBC, CREAT #### [address] #### BILL #### [facility] , Lymphocytes/100 WBC (Bld) 15.0 % Normal . [facility] Comment on above: Performed By: #### E SR, CRP, CBC, CREAT #### [address] #### BILL #### [facility] , MCH (RBC) [Entitic mass] 24.8 pg Normal 24.7-34.3 [facility] Comment on above: Performed By: #### E SR, CRP, CBC, CREAT #### [address] #### BILL #### [facility] , MCV (RBC) [Entitic vol] 80.1 fL Normal 80-100 [facility] Comment on above: Performed By: #### E SR, CRP, CBC, CREAT #### [facility] [address] [place] [address] [place] #### BILL #### [facility] , Mean Corpuscular HGB Conc 31.0 g/dL Low 32.0-35.0 [facility] Comment on above: Performed By: #### E SR, CRP, CBC, CREAT #### [place] [address] [place] #### BILL #### [facility] , Monocytes (Bld) [#/Vol] 0.5 10*3/uL Normal 0.0-0.8 [facility] Comment on above: Performed By: #### E SR, CRP, CBC, CREAT #### [place] [address] [place] #### BILL #### [facility] , Monocytes/100 WBC (Bld) 4.6 % Normal . [facility] Comment on above: Performed By: #### E SR, CRP, CBC, CREAT #### [place] [address] [place] #### BILL #### [facility] , Neutrophils (Bld) [#/Vol] 9.1 10*3/uL High 1.8-7.7 [facility] Comment on above: Performed By: #### E SR, CRP, CBC, CREAT #### [place] [address] [place] #### BILL #### [facility] , Neutrophils/100 WBC (Bld) 79.2 % Normal . [facility] Comment on above: Performed By: #### E SR, CRP, CBC, CREAT #### [place] [address] [place] #### BILL #### [facility] , Nucleated RBC/100 WBC (Bld) [Ratio] 0.1 % Normal 0-0.5 [facility] Comment on above: Performed By: #### E SR, CRP, CBC, CREAT #### [facility] [address] [place] [address] #### BILL #### [facility] , Platelet mean volume (Bld) [Entitic vol] 8.3 fL Normal 6.3-10.7 [facility] Comment on above: Performed By: #### E SR, CRP, CBC, CREAT #### [address] #### BILL #### [facility] , Platelets (Bld) [#/Vol] 336 10*3/uL Normal 150-450 [facility] Comment on above: Performed By: #### E SR, CRP, CBC, CREAT #### [facility] [address] [place] [address] #### BILL #### [facility] , RBC (Bld) [#/Vol] 3.94 10*6/uL Normal 3.60-5.00 [facility] Comment on above: Performed By: #### E SR, CRP, CBC, CREAT #### [address] #### BILL #### [facility] , WBC (Bld) [#/Vol] 11.5 10*3/uL High 4.5-11.0 [facility] Comment on above: Performed By: #### E SR, CRP, CBC, CREAT #### [facility] [address] [place] [address] [place] #### BILL #### [facility] , Creatinineon 04-23-2021 Creatinine [Mass/Vol] 0.75 mg/dL Normal 0.44-1.03 [facility] Comment on above: Performed By: #### E SR, CRP, CBC, CREAT #### [address] #### BILL #### [facility] , Estimated GFR ( Ni > 60 Normal [facility] Comment on above: Result Comment: GFR estimated reference range: According to KDOQI guidelines, <60 ml/min/1.73m2 is sufficient to diagnose a patient with chronic kidney disease. Performed By: #### E SR, CRP, CBC, CREAT #### [place] [address] [place] #### BILL #### [facility] , Estimated GFR (Non- Am > 60 Normal [facility] Comment on above: Performed By: #### E SR, CRP, CBC, CREAT #### [address] #### BILL #### [facility] , Dipstick and Microscopicon 1 Appearance (U) Clear Normal Clear [facility] Comment on above: Order Comment: Name Collection Type:: Clean-Voided Midstream Performed By: #### A DDONUAPLUS #### [address] #### CH50, C3, C4 #### [facility] , Bacteria,Urine None Seen Normal None Seen [facility] Comment on above: Order Comment: Name Collection Type:: Clean-Voided Midstream Performed By: #### A DDONUAPLUS #### [address] #### CH50, C3, C4 #### [facility] , Bilirubin,Urine Negative Normal Negative [facility] Comment on above: Order Comment: Name Collection Type:: Clean-Voided Midstream Performed By: #### A DDONUAPLUS #### [place] [address] [place] #### CH50, C3, C4 #### [facility] , Color (U) Yellow Normal Yellow [facility] Comment on above: Order Comment: Name Collection Type:: Clean-Voided Midstream Performed By: #### A DDONUAPLUS #### [address] #### CH50, C3, C4 #### [facility] , Glucose Ql (U) 100 mg/dL High Normal [facility] Comment on above: Order Comment: Name Collection Type:: Clean-Voided Midstream Performed By: #### A DDONUAPLUS #### [address] #### CH50, C3, C4 #### [facility] , Hyaline Casts,Urine 0-8 Normal 0-8 [facility] Comment on above: Order Comment: Name Collection Type:: Clean-Voided Midstream Result Comment: PERF ORMED BY: [place] [address] PATHOLOGIST MANAGER LIGHTING MARIBEL AGUILLON M.D. Performed By: #### A DDONUAPLUS #### [address] #### CH50, C3, C4 #### [facility] , Ketones Ql (U) Negative Normal Negative [facility] Comment on above: Order Comment: Name Collection Type:: Clean-Voided Midstream Performed By: #### A DDONUAPLUS #### [address] #### CH50, C3, C4 #### [facility] , Leukocyte esterase Test strip Ql (U) Negative Normal Negative [facility] Comment on above: Order Comment: Name Collection Type:: Clean-Voided Midstream Performed By: #### A DDONUAPLUS #### [address] #### CH50, C3, C4 #### [facility] , Nitrite,Urine Negative Normal Negative [facility] Comment on above: Order Comment: Name Collection Type:: Clean-Voided Midstream Performed By: #### A DDONUAPLUS #### [address] #### CH50, C3, C4 #### [facility] , Occult Blood,Urine Negative Normal Negative [facility] Comment on above: Order Comment: Name Collection Type:: Clean-Voided Midstream Performed By: #### A DDONUAPLUS #### [address] #### CH50, C3, C4 #### [facility] , pH (U) 5.0 [pH] Normal 5.0-9.0 [facility] Comment on above: Order Comment: Name Collection Type:: Clean-Voided Midstream Performed By: #### A DDONUAPLUS #### [address] #### CH50, C3, C4 #### [facility] , Protein,Urine Negative Normal Negative [facility] Comment on above: Order Comment: Name Collection Type:: Clean-Voided Midstream Performed By: #### A DDONUAPLUS #### [address] #### CH50, C3, C4 #### [facility] , RBC,Urine None Seen Normal 0-4 [facility] Comment on above: Order Comment: Name Collection Type:: Clean-Voided Midstream Performed By: #### A DDONUAPLUS #### [address] #### CH50, C3, C4 #### [facility] , Specificy [place],Urine 1.009 Normal 1.001-1.030 [facility] Comment on above: Order Comment: Name Collection Type:: Clean-Voided Midstream Performed By: #### A DDONUAPLUS #### [address] [address] [place] #### CH50, C3, C4 #### [facility] , Squamous Epithelial Cell,Urine 0-1 Normal 0-2 [facility] Comment on above: Order Comment: Name Collection Type:: Clean-Voided Midstream Performed By: #### A DDONUAPLUS #### [address] #### CH50, C3, C4 #### [facility] , Urobilinogen,Urine Normal Normal Normal [facility] Comment on above: Order Comment: Name Collection Type:: Clean-Voided Midstream Performed By: #### A DDONUAPLUS #### [address] #### CH50, C3, C4 #### [facility] , WBC LM.HPF (Urine sed) [#/Area] 0 /[HPF] Normal 0-4 [facility] Comment on above: Order Comment: Name Collection Type:: Clean-Voided Midstream Performed By: #### A DDONUAPLUS #### [address] #### CH50, C3, C4 #### [facility] , Erythrocyte Sedimentation Ra ryley 04-23-2021 ESR (Bld) [Velocity] 55 mm/h High 0-29 [facility] Comment on above: Result Comment: PERF ORMED BY: [place] [address] PATHOLOGIST MANAGER LIGHTING MARIBEL AGUILLON M.D. Performed By: #### E SR, CRP, CBC, CREAT #### [facility] [address] [place] [address] #### BILL #### [facility] , BASIC METABOLIC PANELon -2 Calcium [Mass/Vol] 8.7 mg/dL Normal 8.6-10.3 [facility]: Order Comment: No: D o not add to previous draw Performed By: #### 5 73, 95509 #### [facility] [address] [place] [address], [place] Chloride [Moles/Vol] 97 mmol/L Low 98-107 [facility] Comment on above: Order Comment: No: D o not add to previous draw Performed By: #### 5 7307, 81853 #### [facility] [address] [place] [address], [place] CO2 [Moles/Vol] 36 mmol/L High 21-31 [facility] Comment on above: Order Comment: No: D o not add to previous draw Performed By: #### 5 7307, 40667 #### [facility] [address] [place] [address], [place] Creatinine [Mass/Vol] 0.74 mg/dL Normal 0.60-1.20 [facility] Comment on above: Order Comment: No: D o not add to previous draw Performed By: #### 5 73, 02476 #### [facility] [address] [place] [address], [place] GFR/1.73 sq M.predicted among blacks MDRD (S/P/Bld) [Vol rate/Area] mL/min/{1.73_m2} Normal >60 [facility] Comment on above: Order Comment: No: D o not add to previous draw Performed By: #### 5 7307, 03647 #### [facility] [address] [place] [address], [place] GFR/1.73 sq M.predicted among non-blacks MDRD (S/P/Bld) [Vol rate/Area] mL/min/{1.73_m2} Normal >60 [facility] Comment on above: Order Comment: No: D o not add to previous draw Performed By: #### 5 7307, 85865 #### [facility] [address] [place] [address], [place] Glucose [Mass/Vol] 123 mg/dL High 70-100 [facility] Comment on above: Order Comment: No: D o not add to previous draw Performed By: #### 5 7307, 25251 #### [facility] [address] [place] [address], [place] Potassium [Moles/Vol] 4.3 mmol/L Normal 3.5-5.1 [facility] Comment on above: Order Comment: No: D o not add to previous draw Performed By: #### 5 73, 73599 #### [facility] [address] [place] [id number], [place] Sodium [Moles/Vol] 139 mmol/L Normal 136-145 [facility] Comment on above: Order Comment: No: D o not add to previous draw Performed By: #### 5 73, 62480 #### [facility] [address] [place] [id number], [place] Urea nitrogen [Mass/Vol] 24 mg/dL Normal 7-25 [facility] Comment on above: Order Comment: No: D o not add to previous draw Performed By: #### 5 7307, 45532 #### [facility] [address] [place] [id number], [place] CBC COMPLETE BLOOD COUNTon 0 - Erythrocyte distribution width (RBC) [Ratio] 16.8 % High 11.5-15.0 [facility] Comment on above: Order Comment: No: D o not add to previous draw Performed By: #### 5 7307, 30830 #### [facility] [address] [place] [address], [place] Hematocrit (Bld) [Volume fraction] 29.7 % Low 36.0-45.0 [facility] Comment on above: Order Comment: No: D o not add to previous draw Performed By: #### 5 7307, 76852 #### [facility] [address] Hemoglobin (Bld) [Mass/Vol] 8.9 g/dL Low 12.0-15.0 [facility] Comment on above: Order Comment: No: D o not add to previous draw Performed By: #### 5 73, 17624 #### [facility] [address] [place] [address], [place] MCH (RBC) [Entitic mass] 25.4 pg Low 27.0-33.0 [facility] Comment on above: Order Comment: No: D o not add to previous draw Performed By: #### 5 7306, 84662 #### [facility] [address] [facility]. [address] MCHC (RBC) [Mass/Vol] 30.0 g/dL Low 32.0-35.0 [facility] Comment on above: Order Comment: No: D o not add to previous draw Performed By: #### 5 7306, 89559 #### [facility] [address] [facility] [place] [address], [place] MCV (RBC) [Entitic vol] 84.9 fL Normal 82.0-98.0 [facility] Comment on above: Order Comment: No: D o not add to previous draw Performed By: #### 5 7306, 78429 #### [facility] [address] [facility]. [address] Nucleated RBC/100 WBC (Bld) [Ratio] 0 % Normal 0-0 [facility] Comment on above: Order Comment: No: D o not add to previous draw Performed By: #### 5 7307, 56003 #### [facility] [address] [facility] [place] [address], [place] PLAT CNT 446 10*3/uL High 150-400 [facility] Comment on above: Order Comment: No: D o not add to previous draw Performed By: #### 5 7306, 55389 #### [facility] [address] RBC (Bld) [#/Vol] 3.50 10*6/uL Low 3.80-5.00 [facility] Comment on above: Order Comment: No: D o not add to previous draw Performed By: #### 5 7307, 25408 #### [facility] [address] WBC (Bld) [#/Vol] 16.54 10*3/uL High 4.00-10.60 [facility] Comment on above: Order Comment: No: D o not add to previous draw Performed By: #### 5 7307, 78792 #### [facility] [address] Cardiovascular Lab Reporton 04-11-2021 Cardiovascular Lab Report [facility]: [id number] Department of Physician: London Rodas M.D. Division of Service Date: 04/11/2021 Cardiology Birthdate: 1970 Adult Cardiovascular Room #: 5AB [id number] [place] [address] Cardiovascular Laboratory Report PROCEDURE PERFORMED: Transesophageal echocardiogram and cardioversion. INDICATION: Atrial flutter. FELLOW: Dunia Sierra MD PROCEDURE IN DETAIL: Informed consent was obtained from the patient after explaining the indication, risks, benefits, as well as alternatives. The patient understood and agreed, and signed the consent form. The patient was brought to the collaborative physician and transesophageal echocardiogram was performed, under conscious [...] Sierra MD Date Trans: 04/11/2021 12:53 P/marixa [id number] cc: Phillip Ann M.D. [address], [facility] [address] Normal [facility] MAGNESIUM BLOODon 04-11-2021 Magnesium [Mass/Vol] 2.3 mg/dL Normal 1.9-2.7 [facility] Comment on above: Order Comment: No: D o not add to previous draw Performed By: #### 5 7307, 20371 #### [facility] [address] POC GLUCOSE LABon 04-11-2021 Glucose [Mass/Vol] 124 mg/dL High 70-100 [facility] Comment on above: Performed By: #### 5 7307, 27285 #### [facility] [address] TROPONIN-Ion 04-11-2021 Troponin I.cardiac [Mass/Vol] 0.06 ng/mL High 0.00-0.04 [facility] Comment on above: Order Comment: No: D o not add to previous draw Result Comment: REFE RENCE RANGES: 0.00 - 0.04 ng/ml NORMAL 0.05 - 0.50 ng/ml INDETERMINATE > 0.50 ng/ml CONSISTENT WITH AN M.I. Performed By: #### 5 7307, 74387 #### [facility] *BLOOD CULTUREon 04-10-2021 *BLOOD CULTURE Clinical Report: (D) Specimen: BLOOD CULTURE Collected: 04/10/2021 09:50 Status: Final Last Updated: 04/15/2021 11:28 (1) Right hand CULT RES (Final) No Growth Day 5 Normal [facility] Comment on above: Order Comment: No: D o not add to previous draw Performed By: #### 5 7307, 41759 #### [facility] [address] *BLOOD CULTURE Clinical Report: (D) Specimen: BLOOD CULTURE Collected: 04/10/2021 09:50 Status: Final Last Updated: 04/15/2021 11:28 (1) Left hand CULT RES (Final) No Growth Day 5 Normal [facility] Comment on above: Order Comment: No: D o not add to previous draw Performed By: #### 5 7307, 06762 #### [address] *SARS-CoV-2 COVID-19on 04-10 SARS-CoV-2 (COVID-19) RNA DEIRDRE+probe Ql (Unsp spec) Not detected Normal Not Detected [facility] Comment on above: Order Comment: No: D o not add to previous draw Performed By: #### 5 7307, 35830 #### [address] APTTon 04-10-2021 aPTT Coag (Bld) [Time] 23.4 s Low 25.0-35.0 [facility] Comment on above: Order Comment: No: [...] THIS PURPOSE. Performed By: #### 5 7307, 97304 #### [facility] [address] [place] [address], [place] aPTT Coag (Bld) [Time] 23.2 s Low 25.0-35.0 [facility] Comment on above: Order Comment: [...] THIS PURPOSE. Performed By: #### 5 7307, 08148 #### [facility] [address] [place] [address], [place] BASIC METABOLIC PANELon 09-2 Calcium [Mass/Vol] 8.6 mg/dL Normal 8.6-10.3 [facility] Comment on above: Order Comment: No: D o not add to previous draw Performed By: #### 1 0070, 57670, 55040 #### [facility] [address] [place] [address], [place] Chloride [Moles/Vol] 99 mmol/L Normal 98-107 [facility] Comment on above: Order Comment: No: D o not add to previous draw Performed By: #### 1 0, 98989, 04658 #### [facility] [address] [place] [id number], [place] CO2 [Moles/Vol] 32 mmol/L High 21-31 [facility] Comment on above: Order Comment: No: D o not add to previous draw Performed By: #### 1 0, 82895, 82106 #### [facility] [address] [place] [address], [place] Creatinine [Mass/Vol] 0.84 mg/dL Normal 0.60-1.20 [facility] Comment on above: Order Comment: No: D o not add to previous draw Performed By: #### 1 0070, 04919, 46287 #### [facility] [address] [place] [address], [place] GFR/1.73 sq M.predicted among blacks MDRD (S/P/Bld) [Vol rate/Area] mL/min/{1.73_m2} Normal >60 [facility] Comment on above: Order Comment: No: D o not add to previous draw Performed By: #### 1 0070, 60936, 35187 #### [facility] [address] [place] [address], [place] GFR/1.73 sq M.predicted among non-blacks MDRD (S/P/Bld) [Vol rate/Area] mL/min/{1.73_m2} Normal >60 [facility] Comment on above: Order Comment: No: D o not add to previous draw Performed By: #### 1 0, 09129, 28036 #### [facility] [address] [place] [address], [place] Glucose [Mass/Vol] 117 mg/dL High 70-100 [facility] Comment on above: Order Comment: No: D o not add to previous draw Performed By: #### 1 0, 70885, 86961 #### [facility] [address] [place] [address], [place] Potassium [Moles/Vol] 3.9 mmol/L Normal 3.5-5.1 [facility] Comment on above: Order Comment: No: D o not add to previous draw Performed By: #### 1 0070, 60436, 40794 #### [facility] [address] [place] [address], [place] Sodium [Moles/Vol] 139 mmol/L Normal 136-145 [facility] Comment on above: Order Comment: No: D o not add to previous draw Performed By: #### 1 0070, 88391, 01865 #### [facility] [address] [facility] [address] Urea nitrogen [Mass/Vol] 19 mg/dL Normal 7-25 [facility] Comment on above: Order Comment: No: D o not add to previous draw Performed By: #### 1 0070, 33414, 47206 #### [facility] [address] [facility] [address] BNP (B-TYPE NATRIURETIC PEPT MARILYN)on 04-10-2021 Natriuretic peptide B (Bld) [Mass/Vol] 259 pg/mL High 0-100 [facility] Comment on above: Order Comment: No: D o not add to previous draw Result Comment: Give n the appropriate clinical setting a BNP result of >100 pg/mL indicates congestive heart failure. Performed By: #### 5 7307, 92538 #### [facility] [address] [facility] [place] [address], [place] CBC W/DIFFon 04-10-2021 ABS IMM GRANS 1.1 10*3/uL High 0.0-0.[address] [facility] Comment on above: Performed By: #### 5 0103 #### [facility] [address] [facility]. [address] ABS NEUTROPHILS 9.6 10*3/uL High 1.6-7.6 [facility] Comment on above: Performed By: #### 5 0103 #### [facility] [address] [facility] [place] [address], [place] ANISO MODERATE Normal [facility] Comment on above: Performed By: #### 5 0103 #### [facility] [address] [facility] [place] [address], [place] Basophils (Bld) [#/Vol] 0.1 10*3/uL Normal 0.0-0.2 [facility] Comment on above: Performed By: #### 5 3 #### [facility] [address] [place] [address], [place] Basophils/100 WBC (Bld) 0.7 % Normal 0.0-1.0 [facility] Comment on above: Performed By: #### 5 3 #### [facility] [address] [place] [address], [place] Eosinophils (Bld) [#/Vol] 0.1 10*3/uL Normal 0.0-0.5 [facility] Comment on above: Performed By: #### 5 3 #### [facility] [address] [place] [address], [place] Eosinophils/100 WBC (Bld) 0.4 % Normal 0.0-6.0 [facility] Comment on above: Performed By: #### 102 #### [facility] [address] [facility]. [address] Erythrocyte distribution width (RBC) [Ratio] 16.5 % High 11.5-15.0 [facility] Comment on above: Performed By: #### 3 #### [facility] [address] Hematocrit (Bld) [Volume fraction] 31.2 % Low 36.0-45.0 [facility] Comment on above: Performed By: #### 5 3 #### [facility] [address] [facility]. [address] Hemoglobin (Bld) [Mass/Vol] 9.0 g/dL Low 12.0-15.0 [facility] Comment on above: Performed By: #### 5 3 #### [facility] [address] [place] [address], [place] HYPO SLIGHT Normal [facility] Comment on above: Performed By: #### 3 #### [facility] [address] [facility] [place] [address], [place] IMMATURE GRANS 6.8 % High 0.0-1.0 [facility] Comment on above: Performed By: #### 5 0103 #### [facility] [address] [place] [address], [place] Lymphocytes (Bld) [#/Vol] 4.4 10*3/uL High 1.2-4.0 The [facility] Comment on above: Performed By: #### 5 0103 #### [facility] [address] [place] [address], [place] Lymphocytes/100 WBC (Bld) 26.4 % Normal 20.0-45.0 [facility] Comment on above: Performed By: #### 5 0103 #### [facility] [address] [place] [address], [place] MCH (RBC) [Entitic mass] 25.3 pg Low 27.0-33.0 [facility] Comment on above: Performed By: #### 5 0103 #### [facility] [address] [place] [address], [place] MCHC (RBC) [Mass/Vol] 28.8 g/dL Low 32.0-35.0 [facility] Comment on above: Performed By: #### 5 0103 #### [facility] [address] [place] [address], [place] MCV (RBC) [Entitic vol] 87.6 fL Normal 82.0-98.0 [facility] Comment on above: Performed By: #### 5 0103 #### [facility] [address] [place] [address], [place] Monocytes (Bld) [#/Vol] 1.3 10*3/uL High 0.1-1.0 [facility] Comment on above: Performed By: #### 5 0103 #### [facility] [address] [place] [address], [place] MONOS 7.6 % Normal 5.0-12.0 [facility] Comment on above: Performed By: #### 5 0103 #### [facility] [address] [place] [address], [place] Neutrophils/100 WBC (Bld) 58.1 % Normal 40.0-72.0 [facility] Comment on above: Performed By: #### 5 0103 #### [facility] [address] [facility] [place] [address], [place] Nucleated RBC/100 WBC (Bld) [Ratio] 1 % High 0-0 [facility] Comment on above: Performed By: #### 5 0103 #### [facility] [address] [facility] [place] [address], [place] PLAT CNT 483 10*3/uL High 150-400 The [facility] Comment on above: Performed By: #### 5 0103 #### [facility] [address] [facility] [place] [address], [place] POIK SLIGHT Normal [facility] Comment on above: Performed By: #### 5 3 #### [facility] [address] [facility] [place] [address], [place] POLY SLIGHT Normal [facility] Comment on above: Performed By: #### 5 102 #### [facility] [address] [facility] [place] [address], [place] RBC (Bld) [#/Vol] 3.56 10*6/uL Low 3.80-5.[address] [facility] Comment on above: Performed By: #### 5 3 #### [facility] [address] [facility] [place] [address], [place] WBC (Bld) [#/Vol] 16.54 10*3/uL High 4.00-10.60 [facility] Comment on above: Performed By: #### 5 3 #### [facility] [address] [place] [address], [place] LIPID PROFILEon 04-10-2021 Cholesterol [Mass/Vol] 161 mg/dL Normal 120-200 [facility] Comment on above: Result Comment: CHOL ESTEROL REFERENCE RANGE: 20 YEARS AND OLDER CARDIOVASCULAR RISK Less than 200 mg/dl Low Risk 200 to 239 mg/dl Borderline Risk 240 mg/dl and greater High Risk Performed By: #### 3 1569, 96199, 57469 #### [facility] [address] [place] [address], [place] Cholesterol in HDL [Mass/Vol] 61 mg/dL Normal 23-92 [facility] Comment on above: Result Comment: Slig ht variation in normal range could be due to gender and/or age. HDL CHOLESTEROL REFERENCE RANGE: 20 years and older Cardiovascular Risk > or =60 mg/dL Desirable 40 TO 59 mg/dL Low Risk <40 mg/dL High Risk Performed By: #### 3 1569, 19677, 84083 #### [facility] [address] [place] [address], [place] Cholesterol in LDL [Mass/Vol] 28 mg/dL Normal 0-130 [facility] Comment on above: Result Comment: LDL IS A CALCULATION LDL IS ONLY VALID IF THE TRIG IS LESS THAN 400. Performed By: #### 3 1569, 05902, 36975 #### [facility] [address] [place] [address], [place] Cholesterol.total/Ch olesterol in HDL [Mass ratio] 2.6 {ratio} Normal .0-4.5 [facility] Comment on above: Performed By: #### 3 1569, 47070, 39956 #### [facility] [address] [place] [address], [place] NON-HDL CHOLESTEROL 100 mg/dL Normal [facility] Comment on above: Performed By: #### 3 1569, 85289, 67795 #### [facility] [address] [place] [address], [place] Triglyceride [Mass/Vol] 362 mg/dL High 40-149 [facility] Comment on above: Result Comment: TRIG LYCERIDE REFERENCE RANGE: 20 YEARS AND OLDER CARDIOVASCULAR RISK LESS THAN 150 mg/dl LOW RISK 150 TO 199 mg/dl BORDERLINE RISK 200 mg/dl AND GREATER HIGH RISK Performed By: #### 3 1569, 27077, 19357 #### [facility] [address] [place] [address], [place] VLDL CHOL 72 mg/dL High 0-40 [facility] Comment on above: Performed By: #### 3 1569, 60712, 22796 #### [facility] [address] [place] [address], [place] MAGNESIUM BLOODon 04-10-2021 Magnesium [Mass/Vol] 2.4 mg/dL Normal 1.9-2.7 [facility] Comment on above: Order Comment: No: D o not add to previous draw Performed By: #### 1 0070, 00188, 96700 #### [facility] [address] [place] [address], [place] POC GLUCOSE LABon 04-10-2021 Glucose [Mass/Vol] 350 mg/dL High 70-100 [facility] Comment on above: Performed By: #### 5 7307, 49128 #### [facility] [address] [place] [address], [place] Glucose [Mass/Vol] 249 mg/dL High 70-100 [facility] Comment on above: Performed By: #### 5 7307, 97051 #### [facility] [address] [place] [id number], [place] PROCALCITONINon 04-10-2021 PROCALCITONIN 0.09 ng/mL Normal 0.00-0.10 [facility] Comment on above: Order Comment: No: [...] initial PCT<0.5ng/mL Performed By: #### 5 7307, [address]341 #### [place] [address] PROTHROMBIN TIMEon 1 INR Coag (PPP) [Relative time] 1.07 {INR} Normal 0.91-1.16 [facility] Comment on above: Order Comment: No: [...] CHEST 1995;[id number]. Performed By: #### 5 7307, 66141 #### [facility] [address] PT Coag (PPP) [Time] 13.9 s Normal 12.3-14.8 [facility] Comment on above: Order Comment: No: D o not add to previous draw Result Comment: ALL RESULTS MUST BE INTERPRETED WITH RESPECT TO BLOOD DRAWING ARTIFACT OR DILUTION ERROR OF ANTICOAGULANT AT THE TIME OF SAMPLING. Performed By: #### 5 7307, 60725 #### [facility] [address] TROPONIN-Ion 04-10-2021 Troponin I.cardiac [Mass/Vol] 0.07 ng/mL High 0.00-0.04 [facility] Comment on above: Order Comment: No: D o not add to previous draw Result Comment: REFE RENCE RANGES: 0.00 - 0.04 ng/ml NORMAL 0.05 - 0.50 ng/ml INDETERMINATE > 0.50 ng/ml CONSISTENT WITH AN M.I. Performed By: #### 3 1569, 39701, 44980 #### [facility] [address] Troponin I.cardiac [Mass/Vol] 0.07 ng/mL High 0.00-0.04 [facility] Comment on above: Order Comment: No: D o not add to previous draw Result Comment: REFE RENCE RANGES: 0.00 - 0.04 ng/ml NORMAL 0.05 - 0.50 ng/ml INDETERMINATE > 0.50 ng/ml CONSISTENT WITH AN M.I. Performed By: #### 1 0070, 13244, 64613 #### [facility] [address] TSH3 WITH REFLEX FT4on 04-10 TSH 3RD GENERATION 0.95 uIU/mL Normal 0.34-5.[address] [facility] Comment on above: Order Comment: Yes: Add to Previous draw if able Performed By: #### 3 1569 #### [facility] [address] TSH 3RD GENERATION 3.12 uIU/mL Normal 0.34-5.[address] [facility] Comment on above: Performed By: #### 3 1569, 89762, 14557 #### [facility] [address] UFH HEPARIN ASSAYon 04-10-20 21 UNFRACTIONATED HEPARIN >1.00 Critically high 0.30-0.70 [facility] Comment on above: Result Comment: Resu lt checked and called. Accurately read back by Haven Avila RN at 1122 per RN patient may have previously been given Eliquis. UFH = 1.36 for pharmacy use Rivaroxaban and Apixaban will interfere with the anti Xa assay used to monitor UFH and LMWH. Performed By: #### 5 7307, 70496 #### [facility] [address] Cardiovascular Lab Reporton 01-30-2021 Cardiovascular Lab Report [facility] Patient Name: Antonio [facility] S MR #: [id number] Department of Physician: London Ross M.D. Division of Service Date: 01/30/2021 Cardiology Birthdate: 1970 Adult Cardiovascular Room #: [place] [address] Cardiovascular Laboratory Report FINAL IMPRESSIONS: 1. Moderately [...] 5. Follow up with Cardiology in the [facility] Cardiology office in the next 2 [...] Bear M.D. Date Trans: 01/30/2021 02:48 P/mmo [id number] cc: Phillip Ann M.D. [address] [place] [address] [facility] Vital Signs Date Time Vital Sign Value Performing Clinician Iman stafford 04-04-2024 13:58-0400 Blood Pressure Location Juan Miguel NILL [facility] [place] 04-04-2024 13:58-0400 Diastolic blood pressure 76 mm[Hg] Juan Miguel NILL [facility] [place] 04-04-2024 13:58-0400 Heart rate 72 /min Juan Miguel NILL [facility] [place] 04-04-2024 13:58-0400 Respiratory rate 16 /min Juan Miguel NILL [facility] [place] 04-04-2024 13:58-0400 Systolic blood pressure 122 mm[Hg] Juan Miguel NILL [facility] [place] 09-15-2022 15:24-0500 Blood Pressure Location Juan Miguel NILL [facility] [place] 09-15-2022 15:24-0500 Diastolic blood pressure 78 mm[Hg] Juan Miguel NILL [facility] [place] 09-15-2022 15:24-0500 Heart rate 70 /min Juan Miguel NILL [facility] [place] 09-15-2022 15:24-0500 Respiratory rate 16 /min Juan Miguel NILL [facility] [place] 09-15-2022 15:24-0500 Systolic blood pressure 116 mm[Hg] Juan Miguel NILL [facility] [place] Encounters Encounter Date Encounter Type Care Provider Facility Start: 12-27-2024 End: 12-27-2024 [facility] Start: 10-26-2024 End: 10-26-2024 ambulatory [facility] Start: 10-18-2024 ambulatory [facility] Start: 09-12-2024 End: 09-12-2024 ambulatory [facility] Start: 06-09-2024 ambulatory [facility] Start: 05-24-2024 ambulatory [facility] Start: 04-19-2024 End: 04-19-2024 ambulatory Juan Miguel CHAVEZ Facility:CD:[id number] Start: [facility]-17[facility]: 04-13-[facility]24 End: 04-13-2024 ambulatory [facility] Start: 04-13-2024 End: 04-13-2024 Encounter for other preprocedural examination [facility] Start: 04-04-2024 End: 04-04-2024 ambulatory Juan Miguel CHAVEZ Facility:[facility] Start: 04-04-2024 End: 04-04-2024 Patient encounter procedure Juan Miguel CHAVEZ [facility] [place] Start: 01-11-2024 ambulatory [facility] Start: 11-17-2022 End: 11-17-2022 ambulatory EMILY ZHONG . Facility:[facility] Start: 10-28-2022 End: 10-28-[address] PHILLIP ANN . Facility:[facility] Start: 09-24-2022 End: 09-24-[address] PHILLIP ANN . Facility:[facility] Start: 09-15-2022 End: 09-15-2022 Patient encounter procedure Juan Miguel CHAVEZ [facility] [place] Start: 09-09-2022 End: 09-10-[address] PHILLIP [...] and management of inpatient PHILLIP ANN Facility:[facility] Start: 01-30-2021 End: 01-31-2021 ambulatory CASSY BEAR Facility:[facility] Procedures Date Procedure Procedure Detail Performing [...] unspecified formulation Juan Miguel CHAVEZ [facility] [place] 10-29-2020 SARS-CoV-2 (COVID-19 ) mRNA-1273 vaccine Juan Miguel NILL [facility] [place] 10-25-2020 SARS-CoV-2 (COVID-19 ) mRNA BNT-162b2 vax Juan Miguel NILL [facility] [place] Comment on above: Result Comment: 2022: [id number] 10-24-2020 SARS-CoV-2 (COVID-19 ) mRNA BNT-162b2 vax Juan Miguel NILL [facility] 10-04-2020 SARS-CoV-2 (COVID-19 ) mRNA BNT-162b2 vax Juan Miguel NILL [facility] [place] Comment on above: Result Comment: 2022: [id number] 10-03-2020 SARS-CoV-2 (COVID-19 ) mRNA BNT-162b2 vax Juan Miguel NILL [facility] Payers Date Payer Category Payer Unknown [id number] 1970 Unknown [id number] 2.16.8 [id number] 1970 Unknown [id number] 2.16.8 [id number] 1970 Unknown [id number] 2.16.84 0.1.910320.3.579.2.593 1970 Unknown [id number] 2.16.84 0.1.181205.3.579.2.593 1970 Unknown [id number] 2.16.84 0.1.897036.3.579.2.593 1970 Unknown [id number] 2.16.84 0.1.659138.3.579.2.593 1970 Unknown [id number] 2.16.84 0.1.540375.3.579.2.593 1970 Unknown [id number] 2.16.84 0.1.839216.3.579.2.593 1970 Unknown [id number] 2.16.84 0.1.776013.3.579.2.593 1968 Unknown [id number] 2.16.84 0.1.985463.3.579.2.593 1970 Unknown [id number] 2.16.84 0.1.445243.3.579.2.593 1968 Unknown [id number] 2.16.84 0.1.243302.3.579.2.593 1968 Unknown [id number] 2.16.84 0.1.890652.3.579.2.593 1968 Unknown [id number] 2.16.84 0.1.804232.3.579.2.593 1970 Unknown [id number] 2.16.84 0.1.362882.3.579.2.593 1970 Unknown [id number] 2.16.8 40.1.736628.3.579.2.727 1970 Unknown [id number] 2.16.8 40.1.784889.3.579.2.727 1961 Unknown [id number] 1961 Unknown [id number] 1961 Unknown [id number] 1961 Unknown [id number] Social History Date Type Detail Facility Start: 09-15-2022 End: 04-04-2024 Tobacco smoking status Ex-smoker (finding) [facility] [place] Tobacco smoking status Never Gener al Surgery Neda Sex Assigned At Female [facility] Medical Equipment Procedure Code Equipment Code Equipment Origin al Text Equipment Identifier Dates lancets, glucome ter, alcohol swabs, testing strips, insulin pen needles, Print Requisition, Supply Start: 08-25-2021 lancets, glucome ter, alcohol swabs, testing strips, insulin pen needles, Print Requisition, Supply Start: 08-25-2021 Functional Status Date Assessment Result Facility 04-04-2024 Functional Status N/A Flanagan-Mika [facility] [place] 09-15-2022 Functional Status N/A General Montalvo umberto [place] Clinical Notes 04-12-2021 to 12-27-2024 Note Date & Type Note Facility 12-27-2024 Note Patient: Diana catsro Procedure Information Date/Time: 12/27/24 0830 Procedures: Loop recorder removal - PC APPROVED Loop insertion Location: [facility] B[facility] P[facility] HOLDING ROOM / [facility] VASCULAR LAB (Cath) Providers: Curtis Martinez MD Clinical information reviewed: Allergies Meds OB Status Physical Exam Airway Mallampati: II TM distance: >3 FB Neck ROM: full Cardiovascular Dental Pulmonary Neurological Abdominal Anesthesia Plan ASA 3 CSE Anesthetic plan and risks discussed with patient. Use of blood products discussed with patient who. Additional Equipment Requests [facility] 10-26-2024 Note holli [facility] 10-26-2024 Note Cardiovascular Medic [facility] SUBJECTIVE Chief Complaint Patient presents [...] trended upwards is a since seen in [place] ER 04/28/2023 and was diagnosed with vertigo [...] atrial flutter s (more content not included)... [facility] 10-26-2024 Note Patient here for com plaints of hypotension, dizziness. Patient denies chest pain, SOB, leg swelling. Patient states she feels really good expect for the dizzy spells. Review of Systems Musculoskeletal: Positive for joint pain. Neurological: Positive for dizziness and headaches. [facility] 09-12-2024 Note MA Cardiology Consul t Note Reason for visit: [...] trended upwards is a since seen in [place] ER 04/28/2023 and was diagnosed with vertigo [...] Not on file (more content not included)... [facility] 04-13-2024 Note Cardiovascular Medic ine [place] [facility] SUBJECTIVE Chief Complaint Patient presents with [...] trended upwards is a since seen in [place] [facility] 04/28/2023 and was diagnosed with vertigo [...] disease (CMS/HCC) C (more content not included)... [facility] 04-13-2024 Note Patient here for 6 [...] All other systems reviewed and are negative. [facility] 04-04-2024 Note General Surgery Offi ce/Clinic [...] Ep (more content not included)... [facility] Comment on above: Result Comment: Elec [...] authenticated by: AUDREY BO Date: 2022-11-17 12:14 [facility] 04-12-2021 Note MR#: [id number] I [facility] Pt. Name: Diana Alvarez Admitted: 04/10/2021 Discharged: 04/11/2021 Date of : 1970 Physician: Albert Wick MD DISCHARGE SUMMARY PRIMARY DIAGNOSIS: New-onset atrial flutter with RVR. SECONDARY DIAGNOSES: 1. Pulmonary hypertension. 2. COPD. 3. Diabetes. HISTORY OF PRESENT ILLNESS: This patient is a 50-year-old female with past medical history of COPD, hypertension, and diabetes, who was sent from [facility] due to atrial flutter with RVR due to COPD exacerbation. The patient was initially treated with IV Cardizem, however, it was changed to p.o. prior to transfer. The patient was also given loading dose digoxin. The patient was transferred to [facility] for cardioversion. HOSPITAL COURSE: 1. New-onset [...] Wick MD Date Trans: 04/12/2021 03:25 P/marixa [id number] cc: Phillip Ann M.D. [address], [facility] [address] [facility] Evaluation + Plan note No data available for this section General [facility] [place] [facility] Discharge instructions No data available for this section General Surgery [place] Progress note No data available for this section General Surgery [place] Summary Purpose Family History No Family History [...] and content) DATE CREATED AUTHOR 09/10/2021 [facility] DATE CREATED AUTHOR AUTHOR'S ORGANIZ ATION 12/24/2021 [facility] DATE CREATED AUTHOR AUTHOR'S ORGANIZ ATION 11/20/2022 [facility] DATE CREATED AUTHOR AUTHOR'S ORGANIZ ATION 05/01/2024 [facility] DATE CREATED AUTHOR AUTHOR'S ORGANIZ ATION 12/29/2024 [facility] Patient Care team informatio n (unrecognized section and content) Personnel Name: Phillip Ann MD Address: Address: [address] [place] [address] Personnel Name: Phillip Ann MD Address: Address: [address] [place] [address] FOR RECORDS PERTAINING TO PATIENTS WHO ARE [...] BE BASED ON THE PRIMARY CLINICAL RECORDS. [facility]. provides no warranty or guarantee of the accuracy or completeness of information in this document.
[2025-01-18 23:28] VITALS: BP 94/60; PULSE 68; TEMP 36.7; O2SAT 100; BMI 24.3
--- NOTE | 2025-01-19 00:29 | ED.EXTPRO1 ---
HPI - Extremity Problem General Chief complaint: Extremity Problem, Nontraumatic Stated complaint: RIGHT PINKY TOE VERY PAINFUL Time Seen by Provider: 01/18/25 23:45 Source: patient Mode of arrival: walk-in Limitations: no limitations History of Present Illness HPI Narrative: This 54-year-old female with a history of gout and diabetes who is also on Ozempic and has lost 70 pounds presents for evaluation of right fifth toe pain. The pain has been present for the past several days but is increasing in nature. She denies that she has ever been told that she has neuropathy. She has not had any chest pain or shortness of breath. She denies any injury to the foot. There is no redness or swelling concerning for gout. There is no pain in the remainder of the foot or ankle or lower leg or hip. She is on Eliquis. Related Data Home Medications ?Medication ?Instructions ?Recorded ?Confirmed albuterol sulfate 90 mcg/actuation 2 puff inhalation Q4H PRN wheezing 04/18/23 10/28/24 aerosol inhaler (Ventolin HFA) apixaban 5 mg tablet (Eliquis) 5 mg PO BID 04/18/23 10/28/24 ferrous sulfate 325 mg (65 mg 325 mg PO BID 04/18/23 10/28/24 iron) tablet furosemide 40 mg tablet 20 mg PO DAILY 04/18/23 10/28/24 isosorbide mononitrate 30 mg 30 mg PO DAILY 04/18/23 10/28/24 tablet,extended release 24 hr Held on 10/28/24. Instructions: on hold per agricultural specialist metformin 500 mg tablet 500 mg PO DAILY 04/18/23 10/28/24 pantoprazole 40 mg tablet,delayed 40 mg PO DAILY 04/18/23 10/28/24 release potassium chloride 20 mEq 10 meq PO BID 04/18/23 10/28/24 tablet,extended release rosuvastatin 5 mg tablet 5 mg PO DAILY 04/18/23 10/28/24 metoprolol succinate 25 mg 50 mg PO DAILY 04/28/23 10/28/24 tablet,extended release 24 hr cholecalciferol (vitamin D3) 50 50 mcg PO DAILY 11/18/23 10/28/24 mcg (2,000 unit) capsule lisinopril 5 mg tablet 20 mg PO DAILY 01/28/24 10/28/24 allopurinol 100 mg tablet 100 mg PO DAILY 04/05/24 10/28/24 ropinirole 0.5 mg tablet 0.5 mg PO DAILY 04/05/24 10/28/24 colchicine 0.6 mg tablet 0.6 mg PO DAILY PRN gout 04/13/24 10/28/24 semaglutide 2 mg/dose (8 mg/3 mL) 2 mg subcut DAILY 04/13/24 10/28/24 subcutaneous pen injector (Ozempic) Previous Rx's ?Medication ?Instructions ?Recorded acetaminophen 325 mg capsule 650 mg (2 x 325 mg) PO .q8 PRN 04/18/23 (Tylenol) pain #20 caps hydrocodone 5 mg-acetaminophen 325 1 tab PO Q6H PRN pain 5 days #20 10/28/24 mg tablet tabs prednisone 10 mg tablet See Rx Instructions .Route 10/28/24 .COMPLEX #30 tabs Allergies Allergy/AdvReac Type Severity Reaction Status Date / Time morphine Allergy Intermediate Palpitation Verified 01/18/25 23:27 s Review of Systems ROS Status of ROS 10 or more systems reviewed and unremarkable except as noted in history and below [facility] Medical History (Updated 01/19/25 @ 00:58 by Merle Nielson MD) Pulmonary hypertension ?I27.20 - Pulmonary hypertension, unspecified (ICD-10) Pericardial effusion ?I31.39 - Other pericardial effusion (noninflammatory) (ICD-10) Paroxysmal atrial fibrillation ?I48.0 - Paroxysmal atrial fibrillation (ICD-10) Nausea ?R11.0 - Nausea (ICD-10) Mild aortic stenosis ?I35.0 - Nonrheumatic aortic (valve) stenosis (ICD-10) Insomnia ?G47.00 - Insomnia, unspecified (ICD-10) Irritable bowel syndrome ?K58.9 - Irritable bowel syndrome without diarrhea (ICD-10) Hypertriglyceridemia ?E78.1 - Pure hyperglyceridemia (ICD-10) Hypercholesterolemia ?E78.00 - Pure hypercholesterolemia, unspecified (ICD-10) Hypertension ?I10 - Essential (primary) hypertension (ICD-10) Fibrocystic breast disease ?N60.19 - Diffuse cystic mastopathy of unspecified breast (ICD-10) Epigastric pain ?R10.13 - Epigastric pain (ICD-10) Diverticulosis ?K57.90 - Diverticulosis of intestine, part unspecified, without perforation or abscess without bleeding (ICD-10) Cystic kidney disease ?Q61.9 - Cystic kidney disease, unspecified (ICD-10) Chronic diastolic heart failure ?I50.32 - Chronic diastolic (congestive) heart failure (ICD-10) Cholelithiasis ?K80.20 - Calculus of gallbladder without cholecystitis without obstruction (ICD-10) Cervical disc disease ?M50.90 - Cervical disc disorder, unspecified, unspecified cervical region (ICD-10) Abdominal pain ?R10.9 - Unspecified abdominal pain (ICD-10) Abdominal bloating ?R14.0 - Abdominal distension (gaseous) (ICD-10) Back pain ?M54.9 - Dorsalgia, unspecified (ICD-10) Arthritis ?M19.90 - Unspecified osteoarthritis, unspecified site (ICD-10) Anemia ?D64.9 - Anemia, unspecified (ICD-10) Depression ?F32.A - Depression, unspecified (ICD-10) Panic attacks ?F41.0 - Panic disorder [episodic paroxysmal anxiety] (ICD-10) RUQ pain ?R10.11 - Right upper quadrant pain (ICD-10) Sleep apnea ?G47.30 - Sleep apnea, unspecified (ICD-10) Chronic obstructive pulmonary disease ?J44.9 - Chronic obstructive pulmonary disease, unspecified (ICD-10) Asthma ?J45.909 - Unspecified asthma, uncomplicated (ICD-10) COVID-19 ?U07.1 - COVID-19 (ICD-10) Positive colorectal cancer screening using Cologuard test ?R19.5 - Other fecal abnormalities (ICD-10) Dyspnea on exertion ?R06.09 - Other forms of dyspnea (ICD-10) Extremity edema ?R60.0 - Localized edema (ICD-10) Congestive heart failure (CHF) ?I50.9 - Heart failure, unspecified (ICD-10) Pericarditis ?I31.9 - Disease of pericardium, unspecified (ICD-10) Atrial flutter ?I48.92 - Unspecified atrial flutter (ICD-10) Atrial fibrillation ?I48.91 - Unspecified atrial fibrillation (ICD-10) Diabetes ?E11.9 - Type 2 diabetes mellitus without complications (ICD-10) Gout ?M10.9 - Gout, unspecified (ICD-10) Nasal congestion ?R09.81 - Nasal congestion (ICD-10) Breast cyst ?N60.09 - Solitary cyst of unspecified breast (ICD-10) Implantable loop recorder present ?Z95.818 - Presence of other cardiac implants and grafts (ICD-10) Surgical History (Updated 04/13/24 @ 09:03 by Martina Muñiz NP) H/O removal of cyst ?Z98.890 - Other specified postprocedural states (ICD-10) History of colonoscopy ?Z98.890 - Other specified postprocedural states (ICD-10) History of tubal ligation ?Z98.51 - Tubal ligation status (ICD-10) History of cardiac radiofrequency ablation ?Z98.890 - Other specified postprocedural states (ICD-10) History of section ?Z98.891 - History of uterine scar from previous surgery (ICD-10) Family History (Updated 04/13/24 @ 08:57 by Martina Muñiz NP) Other Family history of breast cancer Family history of diabetes mellitus Family history of heart disease Family history of hypertension Family history of myocardial infarction Family history of renal failure Family history of stroke Social History (Updated 04/13/24 @ 08:47 by Martina Muñiz NP) Within the past year, how often did you have a drink containing alcohol: monthly or less Smoking status: Former smoker Non-prescribed substance use: denies use Previous occupational history: [employer] Highest level of school completed/degree received: high school graduate Little interest or pleasure in doing things: not at all Feeling down, depressed, or hopeless: not at all Exam Narrative Exam Narrative: Vital signs and Nursing Notes reviewed: Patient is afebrile with a normal pulse, blood pressure is on the low side at 94/60, she is not hypoxic with pulse ox of 100% on room air General: Awake, alert, oriented, no acute distress, lying comfortably on the stretcher HEENT: Normocephalic atraumatic, mucous membranes are moist and pink, eyes are clear, normal conjunctiva, vision is grossly intact Chest: Lungs are clear to auscultation with good air entry, there is no wheezing rhonchi or rales appreciated no accessory muscle use, patient is speaking in complete sentences-no chest wall tenderness to palpation CVS: Regular rate and rhythm S1-S2, no murmurs rubs or gallops, pulses are brisk and equal bilaterally ABD: Soft, nondistended, nontender, no rebound guarding or rigidity Extremities: Feet are warm and sensate. There is tenderness to the right fifth toe without redness, swelling, bruising or other notable deformity. No corns, ulcers, calluses or other notable abnormality is appreciated. Dorsalis pedis and posterior tibialis pulses are brisk and equal bilaterally. There is no calf swelling or tenderness. Skin: Normal in appearance without rash,pallor, petechiae or purpura Neuro: No focal deficits Constitutional Vital Signs, click to edit/add: Last Vital Signs Temp 98.1 F 01/18/25 23:28 Pulse 68 01/18/25 23:28 Resp 18 01/18/25 23:28 BP 94/60 01/18/25 23:28 Pulse Ox 100 01/18/25 23:28 O2 Del Method Room Air 01/18/25 23:28 Course Vital Signs Vital signs: Vital Signs Temperature 98.1 F 01/18/25 23:28 Pulse Rate 68 01/18/25 23:28 Respiratory Rate 18 01/18/25 23:28 Blood Pressure 94/60 01/18/25 23:28 Pulse Oximetry 100 01/18/25 23:28 Oxygen Delivery Method Room Air 01/18/25 23:28 Temperature 98.1 F 01/18/25 23:28 Pulse Rate 68 01/18/25 23:28 Respiratory Rate 18 01/18/25 23:28 Blood Pressure 94/60 01/18/25 23:28 Pulse Oximetry 100 01/18/25 23:28 Oxygen Delivery Method Room Air 01/18/25 23:28 MDM - Extremity (Nontraumatic) MDM Narrative Medical decision making narrative: This 54-year-old female with a history of diabetes and gout presents for evaluation of exquisite right great toe pain. Symptoms have been present for the past several days. The toe is not red, swollen. There is been no injury. It is tender to touch. There is no diabetic foot ulcer noted. Pulses are brisk and equal. Feet are warm. Patient is on Eliquis. X-ray of the foot was ordered despite the fact she does not have any history of injury due to the fact that she is diabetic. The x-ray does not show any fracture or dislocation but does show degenerative changes of the joint and the toe. She was medicated with a dose of [place]. She is on colchicine and allopurinol currently for gout. I will not prescribe her steroids due to her history of diabetes. She will be given a prescription for [place] to use over the course of the next several days. She was given a postop shoe to use for ambulation. 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 This was provided to her at the time of discharge. Discharge Plan Discharge Chief Complaint: Extremity Problem, Nontraumatic Clinical Impression: Foot pain, right, Peripheral neuropathy Patient Disposition: Home, Self-Care Time of Disposition Decision: 00:54 Condition: Good Prescriptions / Home Meds: No Action albuterol sulfate [Ventolin HFA] 90 mcg/actuation HFA aerosol inhaler 2 puff INHALATION Q4H PRN (Reason: wheezing) Eliquis 5 mg tablet 5 mg PO BID ferrous sulfate 325 mg (65 mg iron) tablet 325 mg PO BID furosemide 40 mg tablet 20 mg PO DAILY isosorbide mononitrate 30 mg tablet extended release 24 hr 30 mg PO DAILY metformin 500 mg tablet 500 mg PO DAILY pantoprazole 40 mg tablet,delayed release (DR/EC) 40 mg PO DAILY potassium chloride 20 mEq tablet extended release 10 meq PO BID rosuvastatin 5 mg tablet 5 mg PO DAILY acetaminophen [Tylenol] 325 mg capsule 650 mg PO .q8 PRN (Reason: pain) Qty: 20 0RF metoprolol succinate 25 mg tablet extended release 24 hr 50 mg PO DAILY lisinopril 5 mg tablet 20 mg PO DAILY hydrocodone-acetaminophen 5-325 mg tablet 1 tab PO Q6H PRN (Reason: pain) 5 Days Qty: 20 0RF prednisone 10 mg tablet See Rx Instructions .ROUTE .COMPLEX Qty: 30 0RF Rx Instructions: 4 by mouth daily for three days then 3 by mouth daily for three days then 2 by mouth daily for three days then 1 by mouth daily for three days cholecalciferol (vitamin D3) 50 mcg (2,000 unit) capsule 50 mcg PO DAILY Ozempic 2 mg/dose (8 mg/3 mL) pen injector 2 mg SUBCUT DAILY colchicine 0.6 mg tablet 0.6 mg PO DAILY PRN (Reason: gout) ropinirole 0.5 mg tablet 0.5 mg PO DAILY allopurinol 100 mg tablet 100 mg PO DAILY Print Language: Slovak Instructions: Diabetic Neuropathy (ED), Metatarsalgia (DC) Referrals: Xavi Ann MD [Primary Care Provider, Family Practice] - 1 week
[2025-01-19] MEDS: HYDROCODONE/ACET 5-325 MG TABLET 1 TAB PO (00:45)
--- NOTE | 2025-01-19 01:26 | PC.NURSE ---
i gave this patient verbal and written discharge orders along with 1 Rx and 1 work note and this patient voices yes to understanding these. this patient was also informed while taking the pain medication, no operating automobile, operate any marching, drinking alcohol or go to work. plus take a stool softener and drink more water while taking this pain medication
== END 2025-01-19 01:25 | disposition home or self-care (01) ==
PROVIDERS: Emergency Provider Emergency Medicine; PCP Family Medicine
DX: E11.42 Type 2 diabetes mellitus with diabetic polyneuropathy (principal); M79.671 Pain in right foot; Z79.85 Long-term (current) use of injectable non-insulin antidiabetic drugs; Z79.01 Long term (current) use of anticoagulants; Z98.51 Tubal ligation status; Z87.891 Personal history of nicotine dependence
CPT/HCPCS: 73630; 99284

== ENCOUNTER 2025-04-22 20:59 | Emergency (ER) | payer OTHER, SELFPAY ==
--- OUTSIDE RECORDS SUMMARY | 2025-04-22 21:03 | XMS_ITS | Clinical Summary ---
Author Organization [facility] Address [address] [place] [address] Care Team Providers Care Aerosol Line Operator Name Role Phone Xavi nAn MD Primary Care Provider [phone] Allergies Active Allergy Reactions Criticality Noted Date Comments Morphine 08/11/2022 Dulaglutide 05/05/2023 Medications pantoprazole (ProtoNix) 40 mg EC tablet Take 1 tablet by mouth in the morning. 08/19/19 22 Active ferrous sulfate 325 (65 Fe) MG tablet Take 1 tablet by mouth in the morning and at bedtime. 07/27/19 23 Active metFORMIN (Glucophage) 500 mg tablet Take 1 tablet by mouth in the morning and at bedtime. Active Ozempic 0.25 mg or 0.5 mg (2 mg/3 mL) pen injector INJECT 0.25 MG SUBCUTANEOUSLY ONCE A WEEK 10/01/19 24 Active rOPINIRole (Requip) 0.5 mg tablet TAKE 1 TABLET BY MOUTH EVERY DAY 1-3 HOURS BEFORE BEDTIME FOR 30 DAYS for 30 Active cholecalciferol, vitamin D3, 50 mcg (2,000 unit) capsule 1 capsule 1 (one) time each day at the same time. 09/15/19 24 Active allopurinol (Zyloprim) 100 mg tablet 1 (one) time each day at the same time. 12/06/19 24 Active albuterol 90 mcg/actuation inhaler INHALE 2 PUFFS BY MOUTH EVERY 4 HOURS NEEDED for 17 Active colchicine 0.6 mg tablet TAKE 1 TABLET AT ONSET - THEN REPEAT IN 4 HOURS IF NEEDED ONCE for 90 03/16/20 24 Active lisinopril 20 mg tabletIndications: Benign hypertensive cardiomyopathy with heart failure (CMS/HCC) Take 1 tablet (20 mg) by mouth once daily as directed. 90 tablet 3 09/12/19 25 026 Active ezetimibe (Zetia) 10 mg tabletIndications: Mixed hyperlipidemia Take 1 tablet (10 mg) by mouth once daily as directed. 90 tablet 3 09/12/19 25 026 Active metoprolol succinate XL (Toprol-XL) 50 mg 24 hr tabletIndications: Benign hypertensive cardiomyopathy with heart failure (CMS/HCC),Atrial flutter, unspecified type (CMS/HCC),Paroxysm al atrial fibrillation (CMS/HCC) Take 1 tablet (50 mg) by mouth once daily as directed. Do not crush or chew. 90 tablet 3 09/12/19 25 026 Active rosuvastatin (Crestor) 5 mg tabletIndications: Mixed hyperlipidemia Take 1 tablet (5 mg) by mouth at bedtime. 90 tablet 3 09/12/19 25 026 Active furosemide (Lasix) 20 mg tabletIndications: Chronic diastolic heart failure (CMS/HCC) Take 1 tablet (20 mg) by mouth every other day. 45 tablet 3 10/27/19 25 026 Active potassium chloride CR (K-Tab) 20 mEq ER tabletIndications: Hypokalemia TAKE 1 TABLET BY MOUTH IN THE MORNING AND AT BEDTIME 180 tablet 3 11/03/19 25 Active apixaban (Eliquis) 5 mg tabletIndications: Atrial flutter, unspecified type (CMS/HCC),Paroxysm al atrial fibrillation (CMS/HCC) Take 1 tablet (5 mg) by mouth two times daily. 60 tablet 11 11/04/19 25 026 Active potassium chloride CR (Klor-Con) 10 mEq ER tabletIndications: Hypokalemia TAKE 1 TABLET (10 MEQ) BY MOUTH IN THE MORNING 90 tablet 1 02/02/20 25 026 Active Active Problems Problem Noted Date Diagnosed Date Paroxysmal atrial fibrillation 10/26/2024 Abdominal bloating 04/11/2024 Cholelithiasis 04/11/2024 Generalized abdominal pain 04/11/2024 Nausea in adult 04/11/2024 Obesity due to excess calories 04/11/2024 Positive fecal occult blood test 04/11/2024 Patellar bursitis 10/26/2023 10/26/2023 BMI 35.0-35.9,adult 01/27/2023 01/27/2023 Cervical disc disease 01/27/2023 01/27/2023 Chronic diastolic heart failure 01/27/2023 01/27/2023 Chronic obstructive pulmonary disease 01/27/2023 01/27/2023 Cystic kidney disease 01/27/2023 01/27/2023 Depression 01/27/2023 01/27/2023 Diabetes 01/27/2023 01/27/2023 Diverticulosis 01/27/2023 01/27/2023 Fibrocystic disease of breast 01/27/2023 Gout 01/27/2023 01/27/2023 History of pericarditis 01/27/2023 01/28/20 IBS (irritable bowel syndrome) 01/27/2023 0 01/27/2023 Insomnia 01/27/2023 01/27/2023 Low back pain syndrome 01/27/2023 Migraines 01/27/2023 01/27/2023 Mild aortic stenosis 01/27/2023 01/27/2023 LILLIANA (obstructive sleep apnea) 01/27/2023 PAF (paroxysmal atrial fibrillation) 01/27/2023 01/27/2023 RUQ pain 01/27/2023 01/27/2023 Pure hypercholesterolemia 01/27/20232022 Pulmonary HTN 01/27/2023 01/27/2023 Pericardial effusion 01/27/2023 01/27/2023 HTN (hypertension) 01/27/2023 01/27/2023 Chronic rhinitis 08/11/2022 Dyspnea 08/11/2022 Palpitations 08/11/2022 Disorder of pericardium 08/11/2022 Syncope 08/11/2022 Atrial flutter 04/28/2021 Chest pain 11/09/2018 Tobacco user 11/09/2018 Cardiomegaly 08/01/2012 Essential hypertension 07/25/2012 Hyperlipidemia 07/25/2012 10/26/2023 Encounters Date Type Department Care Team Description 02/28/2025 9:00 AM EDT Ancillary Procedure [facility] [address] [place] [id number] Awareness of heartbeats 02/28/2025 Orders Only [facility] [address] [place] [id number] Xaio Torres MD 02/01/2025 Refill [facility] [address] [place] [address] June Phillips, RAFAEL Hypokalemia (Primary Dx) from Last 3 Months Family History Medical History Relation Name Comments Coronary artery disease Father Heart attack Father Aneurysm Mother Breast cancer Mother Stroke Mother Stroke Sister Relation Name Status Comments Father Alive Mother Sister Social History Tobacco Use Types Packs/Day Years Used Date Smoking Tobacco: Former Cigarettes Smokeless Tobacco: Never Tobacco Cessation:Counseling Given: Not Answered Alcohol Use Standard Drinks/Week Comments Yes 0 (1 standard drink = 0.6 oz pur e alcohol) occasional [place] Safety & Environment Answer Date Rec orded Fear of Current or Ex-Partner Not on file Emotionally Abused Not on file 09/09/2023 Physically Abused Not on file 09/09/2023 Sexually Abused Not on file 09/09/2023 Physically or Sexually Abused Not on file Comments Unknown Sex and Gender Information Value Date Recorded Sex Assigned at Female 03/15/2025 11:48 AM EDT Legal Sex Female 10:34 PM EDT Gender Identity Female 03/15/2025 11:48 AM EDT Sexual Orientation Heterosexual or Straight 02/17 11:48 AM EDT Last Filed Vital Signs Vital Sign Reading Time Taken Comments Blood Pressure 130/79 12/27/2024 9:15 AM EDT Pulse 77 12/27/2024 9:15 AM EDT Temperature 36.7 C (98 F) 05/10/2020 11:33 AM EDT Respiratory Rate 26 12/27/2024 9:15 AM EDT Oxygen Saturation 95% 12/27/2024 9:15 AM EDT Inhaled Oxygen Concentration - - Weight 61.2 kg (135 lb) 12/27/2024 7:09 AM EDT Height 157.5 cm (5' 2 ) 12/27/2024 7:09 AM EDT Body Mass Index 24.69 12/27/2024 7:09 AM EDT Plan of Treatment Upcoming Encounters Date Type Department Care Team (Late st Contact Info) Description 05/15/2025 9:45 AM EDT Office Visit [facility] [address] [place] [address] Curtis Martinez MD [address] [place] [address] Health Maintenance Due Date Last Done Comments CT Colonography 1968 Colonoscopy 1968 Colorectal Cancer Screening 1968 Diabetes: Hemoglobin A1C 1968 FIT-DNA 1968 FIT 1968 FOBT 1968 Sigmoidoscopy 1968 Diabetes: Retinopathy Screening 1978 Depression Screening 1980 Diabetes: Urine Protein Screening 10/20/1987 Hepatitis B Vaccines (1 of 3 - 19+ 3-dose series) 10/20/1987 Pneumococcal Vaccine: Pediatrics (0 to 5 Years) and At-Risk Patients (6 to 64 Years) (1 of 2 - PCV) 10/20/1987 Pap Smear 1989 Cervical Cancer Screening 1998 HPV/Cotest 1998 Mammogram 2008 Zoster Vaccines (1 of 2) 2018 COVID-19 Vaccine (2024-2 6 season) 2025 10/29/2020, 10/25/2020, 10/04/2020 Influenza Vaccine (#1) 2025 Adult Tetanus 07/24/2030 07/24/2020 HIB Vaccines Aged Out No longer eligi ble based on patient's age to complete this topic HPV Vaccines Aged Out No longer eligi ble based on patient's age to complete this topic IPV Vaccines Aged Out No longer eligi ble based on patient's age to complete this topic Meningococcal B Vaccine Aged Out No l onger eligible based on patient's age to complete this topic Meningococcal Vaccine Aged Out No lucien jj eligible based on patient's age to complete this topic Rotavirus Vaccines Aged Out No longer eligible based on patient's age to complete this topic Medical Devices Implanted Type Area Boat Assembler Device Identifier Shelf Expiration Date Model / Serial / Lot [id number] Implanted: (Quantity not on file) Explanted:05/2025 by Curtis Martinez MD (Quantity not on file) Implantable Loop Recorder Chest [id number] / [id number] / Monitor,Cardi ac,Lux,Dxii+I - [id number] - [id number] Implanted:Qty : 1 on 12/27/2024 by Curtis Martinez MD at [facility] Implantable Loop Recorder Left: Chest [employer] 04/12/2026 [id number] / [id number] / Procedures Procedure Name Priority Date/Time Associated Diagnosis Comments CARDIAC DEVICE CHECK CHECK - REMOTE Routine 03/07/2025 1:24 PM EDT Awareness of heartbeats CARDIAC DEVICE CHECK - REMOTE - LOOP RECORDER (ILR) Routine 02/28/2025 12:00 AM EDT from Last 3 Months Results * CARDIAC DEVICE CHECK - REMOTE - LOOP RECORDER (ILR) (03/07/2025 1:24 PM EDT) us Yuri Brown MD CV IMPLANTABLE CARDIAC DEVICE TX OCEDURES Final Result CPACS * Cardiac device check - Remote loop recorder (ILR) (02/28/2025 12:00 AM EDT) Anatomical Region Laterality Modality Other 02/28/2025 us Xiao Torres MD CV IMPLANTABLE CARDIAC DEVICE PROCEDURES Final Result from Last 3 Months [facility] [place] [facility] Care Teams Aerosol Line Operator Relationship Specialty Start Date End Date Xavi Ann MD [address] [place] [address] PCP - General 08/11/22
--- OUTSIDE RECORDS SUMMARY | 2025-04-22 21:03 | XMS_ITS | CCD ---
Author Organization [facility] Care Team Providers Care Geological Scout Name Role Phone CASSY BEAR A Admitting Unavailable CASSY BEAR Attending Unavailable PHILLIP ANN Referring Unavailable PHILLIP ANN Primary Care Unavailable PHILLIP ANN Referring Unavailable XIAO TORRES Surgeon Unavailable ALBERT HUI Attending Unavailable CALLI PAIGE Admitting Unavailable ND Procedure Practitioner Unavailab PHILLIP Muñoz Primary Care Unavailable ND Procedure Practitioner Unavailab Dunia Light Surgeon Unavailsindhu [...] HOY ., DR FISHRE Primary Care Unavailable NILL ., DR PATRICK [...] DR VIVI Wyman Consulting Unavailable NILLJuan Miguel R Attending Unavailable NILLJuan Miguel R Attending Unavailable SANTIAGOJENNA WEISS Attending Unavailable JENNA PHILLIPS Attending Unavailable CURTIS MARTINEZ Referring Unavailable MANOJ, CURTIS Referring Unavailable GHANSHYAM, BESSIE Referring Unavailable GHANSHYAM, BESSIE Referring Unavailable MANOJ, CURTIS Referring Unavailable MANOJ, CURTIS Admitting Unavailable MANOJ, CURTIS Attending Unavailable MANOJCURTIS Edouard Attending Unavailable Allergies Allergy Classification Reported Allergen(s) Allergy Type Date of Onset Reaction(s) Facility (4 sources) Morphine; Translations: [morphine] Drug Allergy 9 [facility] (1 source) 15552,00; Translations: [04659,00] Propensity to adverse reactions (disorder) 0 [facility] (2 sources) Morphine; Translations: [morphine] Drug Allergy Feeling nervous (finding), Tachycardia (finding) General Surgery Neda (1 source) No Known Medication Allergies; Translations: [No Known Medication Allergies] Propensity to adverse reactions (disorder) [facility] Repository (1 source) dulaglutide; Translations: [DULAGLUTIDE] Drug Allergy 3 [facility] Medications Current Medications Medication Drug Class(es) Dates Sig (Normalized) Sig (Original) 3 ML semaglutide 2.68 MG/ML Pen Injector [Ozempic] (1 source) Start: 03-16-2024 inject 2 mg by subcutaneous injection every week Ozempic 8 mg/3 mL (2 mg dose) subcutaneous solution 2 mg, SubCutaneous, qWeek, Refills(s) 0 Start Date: 03/16/24 Status: Ordered [id number] 200 actuat albuterol 0.09 mg/actuat metered dose [...] 11-19-2022 09-03-2022 Chronic Congestive heart failure; nonhypertensive (4 sources) Chronic diastolic heart failure; Translations: [Chronic diastolic (congestive) heart failure] Onset: 01-27-2023 09-03-2022 Chronic Coronary atherosclerosis and other heart disease (1 source) Atherosclerotic heart disease of [place] coronary artery without angina pectoris; Translations: [ASHD ANGOON CA W/O ANGINA PECTORIS] Onset: 08-11-2022 Chronic [...] 09-13-2022 Chronic Other aftercare (1 source) 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; Translations: [ASSISTED CURRNT USE ANTICOAGULANTS] Onset: 11-19-2022 Episodic Other aftercare (1 source) Other fpc (current) drug therapy; Translations: [OTH ASSISTED CURRENT DRUG THERAPY] Onset: 11-19-2022 Episodic Other aftercare (1 source) 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 drugs; Translations: [A/C TECHNICIAN USE ORAL HYPOGLYCEMIC DX] Onset: 11-19-2022 [...] dysrhythmias (2 sources) Palpitations; Translations: [Palpitations] Onset: 06-09-2024 Episodic Conditions associated with dizziness or vertigo (2 sources) Dizziness and giddiness; Translations: [Dizziness and giddiness] Onset: 10-26-2024 Episodic Fluid and electrolyte disorders (2 sources) Hypokalemia; Translations: [Hypokalemia] Onset: 10-26-2024 Episodic Gastritis and duodenitis (1 source) Gastritis, unspecified, without bleeding; Translations: [GASTRITIS UNS WITHOUT BLEEDING] Onset: 08-11-2022 Episodic Heart valve disorders (2 sources) Cardiac murmur, unspecified; Translations: [Cardiac murmur, unspecified] Onset: 10-26-2024 Episodic Other lower respiratory disease (1 source) [...] Test Name Value Interpretation Reference Range Facility Orders Onlyon 02-28-2025 Orders Only [id number] Diana Alvarez 1970 F Date Provider Department Center 02/28/2025 XIAO QUEEN HV CARD OR HeartVAS Family History Problem Relation Age of Onset Breast cancer Mother Aneurysm Mother Stroke Mother Heart attack Father Coronary artery disease Father Stroke Sister Family Status - Relation Status Age at Mother Father Alive Sister Normal [facility] HPon 12-27-2024 [facility] Cardiology Consult Note Reason for visit: [...] trended upwards is a since seen in [place] [facility] 04/28/2023 and was diagnosed with vertigo [...] Financial Resource Strai (more content not included)... [facility] NURSNOTEon 12-27-2024 NURSNOTE RN educated pt [...] off of unit with all of belongings. [facility] 36on 12-20-2024 36 From: Jenna Phillips [...] is if she don't feel good. Normal [facility] Abstracton 11-10-2024 Abstract [id number] Diana Alvarez 1970 Date Provider Department Center 11/10/2024 CURTIS VALDES [facility] Medical C Family History Problem Relation Age of Onset Breast cancer Mother Aneurysm Mother Stroke Mother Heart attack Father Coronary artery disease Father Stroke Sister Family Status - Relation Status Age at Mother Father Alive Sister [facility] 37on 10-26-2024 37 *We will decrease your lasix to 20mg every other day. *Hold your isosorbide and continue to monitor your blood pressure. Call us in 2 weeks with your readings. *Your last labs showed potassium was low at 3.3. Will order for potassium supplement 10mEq daily. *Repeat labs in 1 month. Normal [facility] Office Visiton 10-26-2024 Follow-up visit [id number] Diana Alvarez 1970 Date Provider Department Center 10/26/2024 JENNA ABREU TISH [facility] Family History Problem Relation Age of Onset Breast cancer Mother Aneurysm Mother Stroke Mother Heart attack Father Coronary artery disease Father Stroke Sister Family Status - Relation Status Age at Mother Father Alive Sister Level of Service:34912 ND OFFICE/OUTPATIENT ESTABLISHED MOD MDM 30 MIN Reason for Visit and Comments: Atrial Fibrillation [80] Dizziness [134662] Hypertension [448914] [facility] Orders Onlyon 10-26-2024 Orders Only [id number] Diana Alvarez 1970 Date Provider Department Center 10/26/2024 MARVIN HEARN CARD [facility] Family History Problem Relation Age of Onset Breast cancer Mother Aneurysm Mother Stroke Mother Heart attack Father Coronary artery disease Father Stroke Sister Family Status - Relation Status Age at Mother Father Alive Sister Normal [facility] Follow-Upon 09-12-2024 Follow-Up [id number] Diana Alvarez 1970 F Date Provider Department Center 09/12/2024 GlennyCURTIS MARTINEZ TISH [facility] Family History Problem Relation Age of Onset Breast cancer Mother Aneurysm Mother Stroke Mother Heart attack Father Coronary artery disease Father Family Status - Relation Status Age at Mother Father Level of Service:13813 ND OFFICE/OUTPATIENT ESTABLISHED LOW MDM 20 MIN Normal [facility] Reminderson 04-20-2024 Reminders Reminders - From: Jacqueline Huerta LPN To: N - Clinical; Sent: 04/20/2024 11:34:18 EDT Show up: 03/20/2034 07:00:00 EDT Subject: colonoscopy recall Due Date/Time: 04/19/2034 07:00:00 EDT Reminder/Recall Patient due for screening colonoscopy 04/19/2034. Normal [facility] Office Visiton 04-13-2024 Follow-up visit [id number] Diana Alvarez 1970 F Date Provider Department Center 04/13/2024 JENNA ABREU TISH [facility] Family History Problem Relation Age of Onset Breast cancer Mother Aneurysm Mother Stroke Mother Heart attack Father Coronary artery disease Father Family Status - Relation Status Age at Mother Father Level of Service:85750 ND OFFICE/OUTPATIENT ESTABLISHED MOD MDM 30 MIN Reason for Visit and Comments: Pre-op Exam [723547] Atrial Fibrillation [80] Hypertension [359177] Normal [facility] Ambulatory Visit Summaryon 0 04-04-2024 Ambulatory [...] Tachycardia) Problems (more content not included)... Normal [facility] CBC AUTO DIFFon 10-28-2022 BASO # 0.0 103/ul Normal 0.0-0.1 [facility] Comment on above: Performed By: #### L IPID, CMP, T4, TSH, FT3 #### [facility] [address] [place] [address] Dr. Mendel Herron Basophils/100 WBC (Bld) 0.2 % Normal 0.2-2.0 [facility] Comment on above: Performed By: #### L IPID, CMP, T4, TSH, FT3 #### [facility] [address] [place] [address] Dr. Mendel Herron EO # 0.0 103/ul Normal 0.0-0.7 [facility] Comment on above: Performed By: #### L IPID, CMP, T4, TSH, FT3 #### [facility] [address] [place] [address] Dr. Mendel Herron Eosinophils/100 WBC (Bld) 0.3 % Critically low 0.9-7.0 [facility] Comment on above: Performed By: #### L IPID, CMP, T4, TSH, FT3 #### [facility] [address] [place] [address] Dr. Mendel Herron Erythrocyte distribution width (RBC) [Ratio] 13.6 % Normal 11.0-15.0 [facility] Comment on above: Performed By: #### L IPID, CMP, T4, TSH, FT3 #### [facility] [address] [place] [address] Dr. Mendel Herron Hematocrit (Bld) [Volume fraction] 40.1 % Normal 36.0-48.0 [facility] Comment on above: Performed By: #### L IPID, CMP, T4, TSH, FT3 #### [facility] [address] [place] [address] Dr. Mendel Herron Hemoglobin (Bld) [Mass/Vol] 13.0 g/dL Normal 12.0-16.0 [facility] Comment on above: Performed By: #### L IPID, CMP, T4, TSH, FT3 #### [facility] [address] [address] [address] Mendel Herron IG # 0.06 10e3/ul Critically high 0.00-0.03 [facility] Comment on above: Performed By: #### L IPID, CMP, T4, TSH, FT3 #### [facility] [address] [place] [address] Dr. Mendel Herron IG % 0.5 % Normal 0.0-0.5 [facility] Comment on above: Performed By: #### L IPID, CMP, T4, TSH, FT3 #### [facility] [address] [place] [address] Dr. Mendel Herron LYMPH # 2.8 103/ul Normal 1.2-3.8 [facility] Comment on above: Performed By: #### L IPID, CMP, T4, TSH, FT3 #### [facility] [address] [place] [address] Dr. Mendel Herron Lymphocytes/100 WBC (Bld) 22.4 % Normal 20.5-60.0 [facility] Comment on above: Performed By: #### L IPID, CMP, T4, TSH, FT3 #### [facility] [address] [place] [address] Dr. Mendel Herron MANUAL DIFF REQ NO Normal [facility] Comment on above: Performed By: #### L IPID, CMP, T4, TSH, FT3 #### [facility] [address] [place] [address] Dr. Mendel Herron MCH (RBC) [Entitic mass] 30.8 pg Normal 26.7-34.0 [facility] Comment on above: Performed By: #### L IPID, CMP, T4, TSH, FT3 #### [facility] [address] [place] [address] Dr. Mendel Herron MCHC (RBC) [Mass/Vol] 32.4 g/dL Normal 29.9-35.2 [facility] Comment on above: Performed By: #### L IPID, CMP, T4, TSH, FT3 #### [facility] [address] [place] [address] Dr. Mendel Herron MCV (RBC) [Entitic vol] 95.0 fL Normal 81.0-99.0 [facility] Comment on above: Performed By: #### L IPID, CMP, T4, TSH, FT3 #### [facility] [address] [place] [address] Dr. Mendel Herron MONO # 0.9 103/ul Critically high 0.3-0.8 [facility] Comment on above: Performed By: #### L IPID, CMP, T4, TSH, FT3 #### [facility] [address] [place] [address] Dr. Mendel Herron Monocytes/100 WBC (Bld) 7.2 % Normal 1.7-12.0 [facility] Comment on above: Performed By: #### L IPID, CMP, T4, TSH, FT3 #### [facility] [address] [place] [address] Dr. Mendel Herron NEUT # 8.6 103/ul Critically high 1.4-6.5 [facility] Comment on above: Performed By: #### L IPID, CMP, T4, TSH, FT3 #### [facility] [address] [place] [address] Dr. Mendel Herron Neutrophils/100 WBC (Bld) 69.4 % Normal 43.0-75.0 [facility] Comment on above: Performed By: #### L IPID, CMP, T4, TSH, FT3 #### [facility] [address] [place] [address] Dr. Mendel Herron Platelet mean volume (Bld) [Entitic vol] 9.9 fL Normal 9.5-13.5 [facility] Comment on above: Performed By: #### L IPID, CMP, T4, TSH, FT3 #### [facility] [address] [place] [address] Dr. Mendel Herron PLT 297 103/ul Normal 150-450 [facility] Comment on above: Performed By: #### L IPID, CMP, T4, TSH, FT3 #### [facility] [address] [address] [address] Mendel Herron RBC 4.22 106/ul Normal 4.20-5.40 [facility] Comment on above: Performed By: #### L IPID, CMP, T4, TSH, FT3 #### [facility] [address] [address] [address] Mendel Herron WBC 12.4 103/ul Critically high 4.0-11.0 [facility] Comment on above: Performed By: #### L IPID, CMP, T4, TSH, FT3 #### [facility] [address] [place] [address] Dr. Mendel Herron CRPon 10-28-2022 CRP 1.3 mg/dL Critically high <=1.0 [facility] Comment on above: Performed By: #### L IPID, CMP, T4, TSH, FT3 #### [facility] [address] [place] [address] Dr. Mendel Herron PROF CHEM 8 (BAS METB)on Anion gap [Moles/Vol] 13.6 mmol/L Normal [facility] Comment on above: Performed By: #### L IPID, CMP, T4, TSH, FT3 #### [facility] [address] [place] [address] Dr. Mendel Herron Calcium [Mass/Vol] 9.3 mg/dL Normal 8.5-10.1 [facility] Comment on above: Performed By: #### L IPID, CMP, T4, TSH, FT3 #### [facility] [address] [place] [address] Dr. Mendel Herron Chloride [Moles/Vol] 102 mmol/L Normal 98-107 [facility] Comment on above: Performed By: #### L IPID, CMP, T4, TSH, FT3 #### [facility] [address] [place] [address] Dr. Mendel Herron CO2 [Moles/Vol] 30.7 mmol/L Normal 21.0-32.0 [facility] Comment on above: Performed By: #### L IPID, CMP, T4, TSH, FT3 #### [facility] [address] [address] [address] Mendel Herron Creatinine [Mass/Vol] 0.85 mg/dL Normal 0.55-1.02 [facility] Comment on above: Performed By: #### L IPID, CMP, T4, TSH, FT3 #### [facility] [address] [place] [address] Dr. Mendel Herron EGFR-AF THAI >60 Normal >=60 [facility] Comment on above: Performed By: #### L IPID, CMP, T4, TSH, FT3 #### [facility] [address] [place] [address] Dr. Mendel Herron EGFR-NON AF THAI >60 Normal >=60 [facility] Comment on above: Performed By: #### L IPID, CMP, T4, TSH, FT3 #### [facility] [address] [place] [address] Dr. Mendel Herron Glucose [Mass/Vol] 101 mg/dL Normal 74-106 [facility] Comment on above: Performed By: #### L IPID, CMP, T4, TSH, FT3 #### [facility] [address] [place] [address] Dr. Mendel Herron Potassium [Moles/Vol] 3.3 mmol/L Critically low 3.5-5.1 [facility] Comment on above: Performed By: #### L IPID, CMP, T4, TSH, FT3 #### [facility] [address] [place] [address] Dr. Mendel Herron Sodium [Moles/Vol] 143 mmol/L Normal 136-145 [facility] Comment on above: Performed By: #### L IPID, CMP, T4, TSH, FT3 #### [facility] [address] [place] [address] Dr. Mendel Herron Urea nitrogen [Mass/Vol] 12.0 mg/dL Normal 7.0-18.0 [facility] Comment on above: Performed By: #### L IPID, CMP, T4, TSH, FT3 #### [facility] [address] [place], [place] [address] Dr. Mendel Herron Urea nitrogen/Creatinine [Mass ratio] 14.1 mg/mg Normal [facility] Comment on above: Performed By: #### L IPID, CMP, T4, TSH, FT3 #### [facility] [address] [place], [place] [address] Dr. Mendel Herron URIC ACID SERUMon 10-28-2022 Urate [Mass/Vol] 7.8 mg/dL Critically high 2.6-6.0 [facility] Comment on above: Performed By: #### L IPID, CMP, T4, TSH, FT3 #### [facility] [id number] Mendel Herron XR TOES RT MIN [...] PELLETIER Date: 2022-10-28 20:53 Normal [facility]on SARS-CoV-2 (COVID-19) RNA DEIRDRE+probe Ql (Unsp spec) Not detected Normal NOT DETECTED [facility] Comment on above: Result Comment: [...] for this test is supported by the [place] of Health and Human Service's declaration that [...] IPID, CMP, T4, TSH, FT3 #### [facility] [address] [place] [address] Dr. Mendel Herron CBC AUTO DIFFon 09-09-2022 BASO # 0.1 103/ul Normal 0.0-0.1 [facility] Comment on above: Performed By: #### L IPID, CMP, T4, TSH, FT3 #### [facility] [address] [place] [address] Dr. Mendel Herron Basophils/100 WBC (Bld) 0.7 % Normal 0.2-2.0 [facility] Comment on above: Performed By: #### L IPID, CMP, T4, TSH, FT3 #### [facility] [address] [place] [address] Dr. Mendel Herron EO # 0.1 103/ul Normal 0.0-0.7 [facility] Comment on above: Performed By: #### L IPID, CMP, T4, TSH, FT3 #### [facility] [address] [place] [address] Dr. Mendel Herron Eosinophils/100 WBC (Bld) 0.7 % Critically low 0.9-7.0 [facility] Comment on above: Performed By: #### L IPID, CMP, T4, TSH, FT3 #### [facility] [address] [place] [address] Dr. Mendel Herron Erythrocyte distribution width (RBC) [Ratio] 13.1 % Normal 11.0-15.0 [facility] Comment on above: Performed By: #### L IPID, CMP, T4, TSH, FT3 #### [facility] [address] [place] [address] Dr. Mendel Herron Hematocrit (Bld) [Volume fraction] 43.7 % Normal 36.0-48.0 [facility] Comment on above: Performed By: #### L IPID, CMP, T4, TSH, FT3 #### [facility] [address] [place] [address] Dr. Mendel Herron Hemoglobin (Bld) [Mass/Vol] 14.4 g/dL Normal 12.0-16.0 [facility] Comment on above: Performed By: #### L IPID, CMP, T4, TSH, FT3 #### [facility] [address] [place] [address] Dr. Mendel Herron IG # 0.11 10e3/ul Critically high 0.00-0.03 [facility] Comment on above: Performed By: #### L IPID, CMP, T4, TSH, FT3 #### [facility] [address] [place] [address] Dr. Mendel Herron IG % 1.3 % Critically high 0.0-0.5 [facility] Comment on above: Performed By: #### L IPID, CMP, T4, TSH, FT3 #### [facility] [address] [place] [address] Dr. Mendel Herron LYMPH # 2.4 103/ul Normal 1.2-3.8 [facility] Comment on above: Performed By: #### L IPID, CMP, T4, TSH, FT3 #### [facility] [address] [place] [address] Dr. Mendel Herron Lymphocytes/100 WBC (Bld) 27.9 % Normal 20.5-60.0 [facility] Comment on above: Performed By: #### L IPID, CMP, T4, TSH, FT3 #### [facility] [address] [place] [address] Dr. Mendel Herron MANUAL DIFF REQ NO Normal [facility] Comment on above: Performed By: #### L IPID, CMP, T4, TSH, FT3 #### [facility] [address] [place] [address] Dr. Mendel Herron MCH (RBC) [Entitic mass] 31.0 pg Normal 26.7-34.0 [facility] Comment on above: Performed By: #### L IPID, CMP, T4, TSH, FT3 #### [facility] [address] [place] [address] Dr. Mendel Herron MCHC (RBC) [Mass/Vol] 33.0 g/dL Normal 29.9-35.2 [facility] Comment on above: Performed By: #### L IPID, CMP, T4, TSH, FT3 #### [facility] [address] [place] [address] Dr. Mendel Herron MCV (RBC) [Entitic vol] 94.0 fL Normal 81.0-99.0 [facility] Comment on above: Performed By: #### L IPID, CMP, T4, TSH, FT3 #### [facility] [address] [place] [address] Dr. Mendel Herron MONO # 0.5 103/ul Normal 0.3-0.8 [facility] Comment on above: Performed By: #### L IPID, CMP, T4, TSH, FT3 #### [facility] [address] [place] [address] Dr. Mendel Herron Monocytes/100 WBC (Bld) 6.0 % Normal 1.7-12.0 [facility] Comment on above: Performed By: #### L IPID, CMP, T4, TSH, FT3 #### [facility] [address] [place] [address] Dr. Mendel Herron NEUT # 5.4 103/ul Normal 1.4-6.5 [facility] Comment on above: Performed By: #### L IPID, CMP, T4, TSH, FT3 #### [facility] [address] [place] [address] Dr. Mendel Herron Neutrophils/100 WBC (Bld) 63.4 % Normal 43.0-75.0 [facility] Comment on above: Performed By: #### L IPID, CMP, T4, TSH, FT3 #### [facility] [address] [place] [address] Dr. Mendel Herron Platelet mean volume (Bld) [Entitic vol] 9.8 fL Normal 9.5-13.5 [facility] Comment on above: Performed By: #### L IPID, CMP, T4, TSH, FT3 #### [facility] [address] [address] [address] Mendel Herron PLT 398 103/ul Normal 150-450 [facility] Comment on above: Performed By: #### L IPID, CMP, T4, TSH, FT3 #### [facility] [address] [address] [address] Mendel Herron RBC 4.65 106/ul Normal 4.20-5.40 [facility] Comment on above: Performed By: #### L IPID, CMP, T4, TSH, FT3 #### [facility] [address] [place] [address] Dr. Mendel Herron WBC 8.6 103/ul Normal 4.0-11.0 [facility] Comment on above: Performed By: #### L IPID, CMP, T4, TSH, FT3 #### [facility] [address] [address] [address] Mendel Herron FREE T3on 09-09-2022 FREE T3 2.59 pg/mlL Normal 2.18-3.98 [facility] Comment on above: Performed By: #### L IPID, CMP, T4, TSH, FT3 #### [facility] [address] [address] [address] Mendel Herron GLYCOHEMOGLOBIN A1Con 2022 ADA RECOMMENDATION SEE BELOW Normal The [facility] Comment on above: Result Comment: ADA RECOMMENDED LIMIT 4.0 - 6.0 ADA THERAPEUTIC TARGET < 7.0 ACTION SUGGESTED > 7.0 Performed By: #### A 1C #### [facility] [address] [place] [address] Dr. Mendel Herron Glucose [Mass/Vol] 120 mg/dL Normal [facility] Comment on above: Performed By: #### A 1C #### [facility] [address] [place] [address] Dr. Mendel Herron HbA1c (Bld) [Mass fraction] 5.8 % Normal 4.5-6.2 [facility] Comment on above: Performed By: #### A 1C #### [facility] [address] [place] [address] Dr. Mendel Herron LIPID PROFILEon 09-09-2022 CHOL-HDL RATIO NORM SEE BELOW Normal [facility] Comment on above: Result Comment: 3.3 - 4.4 LOW RISK 4.4 - 7.1 AVERAGE RISK 7.1 - 11.0 MODERATE RISK >11.0 HIGH RISK Performed By: #### L IPID, CMP, T4, TSH, FT3 #### [facility] [address] [place] [address] Dr. Mendel Herron Cholesterol [Mass/Vol] 308 mg/dL Critically high <=200 [facility] Comment on above: Performed By: #### L IPID, CMP, T4, TSH, FT3 #### [facility] [address] [place] [address] Dr. Mendel Herron Cholesterol in HDL [Mass/Vol] 46 mg/dL Normal 40-60 [facility] Comment on above: Performed By: #### L IPID, CMP, T4, TSH, FT3 #### [facility] [address] [place] [address] Dr. Mendel Herron Cholesterol in LDL [Mass/Vol] 212.6 mg/dL Normal [facility] Comment on above: Performed By: #### L IPID, CMP, T4, TSH, FT3 #### [facility] [address] [place] [address] Dr. Mendel Herron Cholesterol.total/Ch olesterol in HDL [Mass ratio] 6.7 {ratio} Normal [facility] Comment on above: Performed By: #### L IPID, CMP, T4, TSH, FT3 #### [facility] [address] [place] [address] Dr. Mendel Herron HDL NORMAL > or = 60 mg/dl - LOW CARDIOVASCULAR RISK <40 mg/dl - HIGH CARDIOVASCULAR RISK Normal [facility] Comment on above: Performed By: #### L IPID, CMP, T4, TSH, FT3 #### [facility] [address] [address] [address] Mendel Herron LDL CALC NORMAL SEE BELOW Normal [facility] Comment on above: Result Comment: <100 mg/dl OPTIMAL 100 - 129 mg/dl NEAR OR ABOVE OPTIMAL 130 - 159 mg/dl BORDERLINE HIGH 160 - 189 mg/dl HIGH >190 mg/dl VERY HIGH Performed By: #### L IPID, CMP, T4, TSH, FT3 #### [facility] [address] [address] [address] Mendel Herron Triglyceride [Mass/Vol] 247 mg/dL Critically high <=150 [facility] Comment on above: Performed By: #### L IPID, CMP, T4, TSH, FT3 #### [facility] [address] [address] [address] Mendel Herron VLDL CALC 49.4 mg/dL Normal [facility] Comment on above: Performed By: #### L IPID, CMP, T4, TSH, FT3 #### [facility] [address] [place] [address] Dr. Mendel Herron PROF 14(COMP METB)on 023 Albumin [Mass/Vol] 4.0 g/dL Normal 3.4-5.0 [facility] Comment on above: Performed By: #### L IPID, CMP, T4, TSH, FT3 #### [facility] [address] [address] [address] Mendel Herron Albumin/Globulin [Mass ratio] 0.9 {ratio} Normal [facility] Comment on above: Performed By: #### L IPID, CMP, T4, TSH, FT3 #### [facility] [address] [address] [address] Mendel Herron ALP [Catalytic activity/Vol] 115 U/L Normal 46-116 [facility] Comment on above: Performed By: #### L IPID, CMP, T4, TSH, FT3 #### [facility] [address] [address] [address] Mendel Herron ALT [Catalytic activity/Vol] 30 U/L Normal 14-59 [facility] Comment on above: Performed By: #### L IPID, CMP, T4, TSH, FT3 #### [facility] [address] [place] [address] Dr. Mendel Herron Anion gap [Moles/Vol] 12.7 mmol/L Normal [facility] Comment on above: Performed By: #### L IPID, CMP, T4, TSH, FT3 #### [facility] [address] [place] [address] Dr. Mendel Herron AST [Catalytic activity/Vol] 18 U/L Normal 15-37 [facility] Comment on above: Performed By: #### L IPID, CMP, T4, TSH, FT3 #### [facility] [address] [place] [address] Dr. Mendel Herron Bilirubin [Mass/Vol] 0.7 mg/dL Normal 0.2-1.0 [facility] Comment on above: Performed By: #### L IPID, CMP, T4, TSH, FT3 #### [facility] [address] [place] [address] Dr. Mendel Herron Calcium [Mass/Vol] 9.7 mg/dL Normal 8.5-10.1 [facility] Comment on above: Performed By: #### L IPID, CMP, T4, TSH, FT3 #### [facility] [address] [place] [address] Dr. Mendel Herron Chloride [Moles/Vol] 103 mmol/L Normal 98-107 [facility] Comment on above: Performed By: #### L IPID, CMP, T4, TSH, FT3 #### [facility] [address] [place] [address] Dr. Mendel Herron CO2 [Moles/Vol] 26.5 mmol/L Normal 21.0-32.0 [facility] Comment on above: Performed By: #### L IPID, CMP, T4, TSH, FT3 #### [facility] [address] [place] [address] Dr. Mendel Herron Creatinine [Mass/Vol] 0.83 mg/dL Normal 0.55-1.02 [facility] Comment on above: Performed By: #### L IPID, CMP, T4, TSH, FT3 #### [facility] [address] [address] [address] Mendel Herron EGFR-AF THAI >60 Normal >=60 [facility] Comment on above: Performed By: #### L IPID, CMP, T4, TSH, FT3 #### [facility] [address] [address] [address] Mednel Herron EGFR-NON AF THAI >60 Normal >=60 [facility] Comment on above: Performed By: #### L IPID, CMP, T4, TSH, FT3 #### [facility] [address] [place] [address] Dr. Mendel Herron Globulin (S) [Mass/Vol] 4.4 g/dL Normal [facility] Comment on above: Performed By: #### L IPID, CMP, T4, TSH, FT3 #### [facility] [address] [place] [address] Dr. Mendel Herron Glucose [Mass/Vol] 97 mg/dL Normal 74-106 [facility] Comment on above: Performed By: #### L IPID, CMP, T4, TSH, FT3 #### [facility] [address] [place] [address] Dr. Mendel Herron Potassium [Moles/Vol] 4.2 mmol/L Normal 3.5-5.1 [facility] Comment on above: Performed By: #### L IPID, CMP, T4, TSH, FT3 #### [facility] [address] [place] [address] Dr. Mendel Herron Protein [Mass/Vol] 8.4 g/dL Critically high 6.4-8.2 [facility] Comment on above: Performed By: #### L IPID, CMP, T4, TSH, FT3 #### [facility] [address] [place] [address] Dr. Mendel Herron Sodium [Moles/Vol] 138 mmol/L Normal 136-145 [facility] Comment on above: Performed By: #### L IPID, CMP, T4, TSH, FT3 #### [facility] [address] [place] [address] Dr. Mendel Herron Urea nitrogen [Mass/Vol] 12.0 mg/dL Normal 7.0-18.0 [facility] Comment on above: Performed By: #### L IPID, CMP, T4, TSH, FT3 #### [facility] [address] [place] [address] Dr. Mendel Herron Urea nitrogen/Creatinine [Mass ratio] 14.5 mg/mg Normal [facility] Comment on above: Performed By: #### L IPID, CMP, T4, TSH, FT3 #### [facility] [address] [place] [address] Dr. Mendel Herron T4on 09-09-2022 T4 [Mass/Vol] 8.80 ug/dL Normal 4.80-13.90 [facility] Comment on above: Performed By: #### L IPID, CMP, T4, TSH, FT3 #### [facility] [address] [place] [address] Dr. Mendel Herron TSHon 09-09-2022 TSH 0.898 uIU/mL Normal 0.358-3.740 [facility] Comment on above: Performed By: #### L IPID, CMP, T4, TSH, FT3 #### [facility] [address] [place] [address] Dr. Mendel Herron VITAMIN D 25 OHon 09-09-2022 VIT D 25-OH 24.0 ng/mL Normal [facility] Comment on above: Performed By: #### L IPID, CMP, T4, TSH, FT3 #### [facility] [address] [place] [address] Dr. Mendel Herron VIT D RANGES SEE BELOW Normal [facility] Comment on above: Result Comment: <20 ng/mL Vit D deficient 20 - <30 ng/mL Vit D insufficient 30 - 100 ng/mL Vit D sufficient >100 ng/mL Potential Toxicity Performed By: #### L IPID, CMP, T4, TSH, FT3 #### [facility] [address] [place] [address] Dr. Mendel Herron NM HEPATOBILIARY SCAN W [...] by: VIVI GARY Date: 2022-08-20 16:07 Normal [facility] US SINGLE QUAD RT UPPERon [...] LOPES Date: 2022-08-11 15:50 Normal [facility] CARDIAC SUBHA ADMITon 023 CK [Catalytic activity/Vol] 30 U/L Normal 26-192 [facility] Comment on above: Performed By: #### L IPID, CMP, T4, TSH, FT3 #### [facility] [address] [address] [address] Mendel Herron CK.MB [Mass/Vol] 1.02 ng/mL Normal <=3.60 [facility] Comment on above: Performed By: #### L IPID, CMP, T4, TSH, FT3 #### [facility] [address] [place] [address] Dr. Mendel Herron HSTROP 32.8 pg/mL Normal 4.0-51.3 [facility] Comment on above: Result Comment: CUT- OFF POINTS HAVE BEEN ESTABLISHED BASED ON THE FOURTH UNIVERSAL DEFINITIONS OF MYOCARDIAL INFARCTION. THE UPPER REFERENCE LIMIT (URL) OF TROPONIN, DEFINED THE 99TH PERCENTILE OF cTnI DISTRIBUTION IN A REFERENCE POPULATION, HAS BEEN CONFIRMED THE DECISION THRESHOLD FOR NC DIAGNOSIS. Performed By: #### L IPID, CMP, T4, TSH, FT3 #### [facility] [address] [place] [address] Dr. Mendel Herron SONYA 23 ng/mL Normal 9-82 [facility] Comment on above: Performed By: #### L IPID, CMP, T4, TSH, FT3 #### [facility] [address] [address] [address] Mendel Herron CBC AUTO DIFFon 08-09-2022 BASO # 0.0 103/ul Normal 0.0-0.1 [facility] Comment on above: Performed By: #### L IPID, CMP, T4, TSH, FT3 #### [facility] [address] [place] [address] Dr. Mendel Herron Basophils/100 WBC (Bld) 0.3 % Normal 0.2-2.0 [facility] Comment on above: Performed By: #### L IPID, CMP, T4, TSH, FT3 #### [facility] [address] [place] [address] Dr. Mendel Herron EO # 0.0 103/ul Normal 0.0-0.7 [facility] Comment on above: Performed By: #### L IPID, CMP, T4, TSH, FT3 #### [facility] [address] [place] [address] Dr. Mendel Herron Eosinophils/100 WBC (Bld) 0.3 % Critically low 0.9-7.0 [facility] Comment on above: Performed By: #### L IPID, CMP, T4, TSH, FT3 #### [facility] [address] [place] [address] Dr. Mendel Herron Erythrocyte distribution width (RBC) [Ratio] 13.1 % Normal 11.0-15.0 [facility] Comment on above: Performed By: #### L IPID, CMP, T4, TSH, FT3 #### [facility] [address] [place] [address] Dr. Mendel Herron Hematocrit (Bld) [Volume fraction] 42.7 % Normal 36.0-48.0 [facility] Comment on above: Performed By: #### L IPID, CMP, T4, TSH, FT3 #### [facility] [address] [place] [address] Dr. Mendel Herron Hemoglobin (Bld) [Mass/Vol] 15.4 g/dL Normal 12.0-16.0 [facility] Comment on above: Performed By: #### L IPID, CMP, T4, TSH, FT3 #### [facility] [address] [place] [address] Dr. Mendel Herron IG # 0.05 10e3/ul Critically high 0.00-0.03 [facility] Comment on above: Performed By: #### L IPID, CMP, T4, TSH, FT3 #### [facility] [address] [place] [address] Dr. Mendel Herron IG % 0.4 % Normal 0.0-0.5 [facility] Comment on above: Performed By: #### L IPID, CMP, T4, TSH, FT3 #### [facility] [address] [place] [address] Dr. Mendel Herron LYMPH # 2.5 103/ul Normal 1.2-3.8 [facility] Comment on above: Performed By: #### L IPID, CMP, T4, TSH, FT3 #### [facility] [address] [place] [address] Dr. Mendel Herron Lymphocytes/100 WBC (Bld) 21.2 % Normal 20.5-60.0 [facility] Comment on above: Performed By: #### L IPID, CMP, T4, TSH, FT3 #### [facility] [address] [place] [address] Dr. Mendel Herron MANUAL DIFF REQ NO Normal [facility] Comment on above: Performed By: #### L IPID, CMP, T4, TSH, FT3 #### [facility] [address] [place] [address] Dr. Mendel Herron MCH (RBC) [Entitic mass] 31.7 pg Normal 26.7-34.0 [facility] Comment on above: Performed By: #### L IPID, CMP, T4, TSH, FT3 #### [facility] [address] [place] [address] Dr. Mendel Herron MCHC (RBC) [Mass/Vol] 36.1 g/dL Critically high 29.9-35.2 [facility] Comment on above: Performed By: #### L IPID, CMP, T4, TSH, FT3 #### [facility] [address] [place] [address] Dr. Mendel Herron MCV (RBC) [Entitic vol] 87.9 fL Normal 81.0-99.0 [facility] Comment on above: Performed By: #### L IPID, CMP, T4, TSH, FT3 #### [facility] [address] [place] [address] Dr. Mendel Herron MONO # 0.7 103/ul Normal 0.3-0.8 [facility] Comment on above: Performed By: #### L IPID, CMP, T4, TSH, FT3 #### [facility] [address] [address] [address] Mendel Herron Monocytes/100 WBC (Bld) 6.3 % Normal 1.7-12.0 [facility] Comment on above: Performed By: #### L IPID, CMP, T4, TSH, FT3 #### [facility] [address] [address] [address] Mendel Herron NEUT # 8.4 103/ul Critically high 1.4-6.5 [facility] Comment on above: Performed By: #### L IPID, CMP, T4, TSH, FT3 #### [facility] [address] [place] [address] Dr. Mendel Herron Neutrophils/100 WBC (Bld) 71.5 % Normal 43.0-75.0 [facility] Comment on above: Performed By: #### L IPID, CMP, T4, TSH, FT3 #### [facility] [address] [place] [address] Dr. Mendel Herron Platelet mean volume (Bld) [Entitic vol] 9.8 fL Normal 9.5-13.5 [facility] Comment on above: Performed By: #### L IPID, CMP, T4, TSH, FT3 #### [facility] [address] [place] [address] Dr. Mendel Herron PLT 374 103/ul Normal 150-450 [facility] Comment on above: Performed By: #### L IPID, CMP, T4, TSH, FT3 #### [facility] [address] [place] [address] Dr. Mendel Herron RBC 4.86 106/ul Normal 4.20-5.40 [facility] Comment on above: Performed By: #### L IPID, CMP, T4, TSH, FT3 #### [facility] [address] [place] [address] Dr. Mendel Herron WBC 11.7 103/ul Critically high 4.0-11.0 [facility] Comment on above: Performed By: #### L IPID, CMP, T4, TSH, FT3 #### [facility] [address] [address] [address] HEAD WO CONon [...] VELAZQUEZ Date: 2022-08-09 15:23 Normal [facility] Covid-19 PCR (CVDTB)on 07-20 SARS-CoV-2 (COVID-19) RNA DEIRDRE+probe Ql (Unsp spec) Not detected Normal NOT DETECTED [facility] Comment on above: Result Comment: [...] for this test is supported by the [facility] of Health and Human Service's declaration that [...] IPID, CMP, T4, TSH, FT3 #### [facility] [address] [address] [address] Mendel Herron ER URINE PROFILEon 3 Bilirubin Ql (U) Negative Normal NEGATIVE [facility] Comment on above: Performed By: #### L IPID, CMP, T4, TSH, FT3 #### [facility] [address] [address] [address] Mendel Herron Clarity (U) CLEAR Normal CLEAR [facility] Comment on above: Performed By: #### L IPID, CMP, T4, TSH, FT3 #### [facility] [address] [address] [address] Mendel Herron Color (U) LT. YELLOW Normal YELLOW [facility] Comment on above: Performed By: #### L IPID, CMP, T4, TSH, FT3 #### [facility] [address] [place] [address] Dr. Mendel Herron ERUAHD A micrscopic examination will be performed if indicated. Normal [facility] Comment on above: Performed By: #### L IPID, CMP, T4, TSH, FT3 #### [facility] [address] [place] [address] Dr. Mendel Herron Glucose Ql (U) Negative Normal NEGATIVE [facility] Comment on above: Performed By: #### L IPID, CMP, T4, TSH, FT3 #### [facility] [address] [address] [address] Mendel Herron Hemoglobin Ql (U) TRACE-INTACT Abnormal NEGATIVE [facility] Comment on above: Performed By: #### L IPID, CMP, T4, TSH, FT3 #### [facility] [address] [address] [address] Mendel Herron Ketones Ql (U) Negative Normal NEGATIVE [facility] Comment on above: Performed By: #### L IPID, CMP, T4, TSH, FT3 #### [facility] [address] [place] [address] Dr. Mendel Herron LEUKOCYTES Negative Normal NEGATIVE [facility] Comment on above: Performed By: #### L IPID, CMP, T4, TSH, FT3 #### [facility] [address] [address] [address] Mendel Herron Nitrite Ql (U) Negative Normal NEGATIVE [facility] Comment on above: Performed By: #### L IPID, CMP, T4, TSH, FT3 #### [facility] [address] [place] [address] Dr. Mendel Herron pH (U) 5.0 [pH] Normal 5-9 [facility] Comment on above: Performed By: #### L IPID, CMP, T4, TSH, FT3 #### [facility] [address] [place] [address] Dr. Mendel Herron SPEC GRAVITY 1.015 Normal 1.005-<=1.025 [facility] Comment on above: Performed By: #### L IPID, CMP, T4, TSH, FT3 #### [facility] [address] [place] [address] Dr. Mendel Herron UA PROTEIN Negative Normal NEGATIVE/ TRACE [facility] Comment on above: Performed By: #### L IPID, CMP, T4, TSH, FT3 #### [facility] [address] [place] [address] Dr. Mendel Herron UR MICRO IND INDICATED Normal [facility] Comment on above: Performed By: #### L IPID, CMP, T4, TSH, FT3 #### [facility] [address] [place] [address] Dr. Mendel Herron Urobilinogen Qn (U) 0.2 {James'U}/dL Normal 0.2 - 1. 0 [facility] Comment on above: Performed By: #### L IPID, CMP, T4, TSH, FT3 #### [facility] [address] [place] [address] Dr. Mendel Herron LIPASEon 08-09-2022 Lipase [Catalytic activity/Vol] 114.0 U/L Normal 73.0-393.0 [facility] Comment on above: Performed By: #### L IPA, BMP, CMADM #### [facility] [address] [address] [address] Mendel Herron PROF CHEM 8 (BAS METB)on Anion gap [Moles/Vol] 18.9 mmol/L Normal [facility] Comment on above: Performed By: #### L IPA, BMP, CMADM #### [facility] [address] [address] [address] Mendel Herron Calcium [Mass/Vol] 9.4 mg/dL Normal 8.5-10.1 [facility] Comment on above: Performed By: #### L IPA, BMP, CMADM #### [facility] [address] [address] [address] Mendel Herron Chloride [Moles/Vol] 97 mmol/L Critically low 98-107 [facility] Comment on above: Performed By: #### L IPA, BMP, CMADM #### [facility] [address] [place] [address] Dr. Mendel Herron CO2 [Moles/Vol] 26.0 mmol/L Normal 21.0-32.0 [facility] Comment on above: Performed By: #### L IPA, BMP, CMADM #### [facility] [address] [place] [address] Dr. Mendel Herron Creatinine [Mass/Vol] 0.85 mg/dL Normal 0.55-1.02 [facility] Comment on above: Performed By: #### L IPA, BMP, CMADM #### [facility] [address] [address] [address] Mendel Herron EGFR-AF THAI >60 Normal >=60 [facility] Comment on above: Performed By: #### L IPA, BMP, CMADM #### [facility] [address] [address] [address] Mendel Herron EGFR-NON AF THAI >60 Normal >=60 [facility] Comment on above: Performed By: #### L IPA, BMP, CMADM #### [facility] [address] [place] [address] Dr. Mendel Herron Glucose [Mass/Vol] 120 mg/dL Critically high 74-106 [facility] Comment on above: Performed By: #### L IPA, BMP, CMADM #### [facility] [address] [place] [address] Dr. Mendel Herron Potassium [Moles/Vol] 3.9 mmol/L Normal 3.5-5.1 [facility] Comment on above: Performed By: #### L IPA, BMP, CMADM #### [facility] [address] [place] [address] Dr. Mendel Herron Sodium [Moles/Vol] 138 mmol/L Normal 136-145 [facility] Comment on above: Performed By: #### L IPA, BMP, CMADM #### [facility] [address] [place] [address] Dr. Mendel Herron Urea nitrogen [Mass/Vol] 17.0 mg/dL Normal 7.0-18.0 [facility] Comment on above: Performed By: #### L IPA, BMP, CMADM #### [facility] [address] [place] [address] Dr. Mendel Herron Urea nitrogen/Creatinine [Mass ratio] 20.0 mg/mg Normal [facility] Comment on above: Performed By: #### L IPA, BMP, CMADM #### [facility] [address] [place] [address] Dr. Mendel Herron TROPONIN, HIGH SENSITIVITYon 08-09-2022 HSTROP 32.5 pg/mL Normal 4.0-51.3 [facility] Comment on above: Result Comment: CUT- OFF POINTS HAVE BEEN ESTABLISHED BASED ON THE FOURTH UNIVERSAL DEFINITIONS OF MYOCARDIAL INFARCTION. THE UPPER REFERENCE LIMIT (URL) OF TROPONIN, DEFINED THE 99TH PERCENTILE OF cTnI DISTRIBUTION IN A REFERENCE POPULATION, HAS BEEN CONFIRMED THE DECISION THRESHOLD FOR NC DIAGNOSIS. Performed By: #### L IPID, CMP, T4, TSH, FT3 #### [facility] [address] [place] [address] Dr. Mendel Herron URINE MICROSCOPIC ONLYon BACTERIA NONE SEEN Normal NONE SEEN [facility] Comment on above: Performed By: #### L IPID, CMP, T4, TSH, FT3 #### [facility] [address] [address] [address] Mendel Herron Bacteria identified Cx Nom (U) NOT INDICATED Normal [facility] Comment on above: Performed By: #### L IPID, CMP, T4, TSH, FT3 #### [facility] [address] [address] [address] Mendel Herron CAST NONE SEEN Normal NONE SEEN [facility] Comment on above: Performed By: #### L IPID, CMP, T4, TSH, FT3 #### [facility] [address] [address] [address] Mendel Herron Crystals LM Nom (Urine sed) NONE SEEN Normal NONE SEEN [facility] Comment on above: Performed By: #### L IPID, CMP, T4, TSH, FT3 #### [facility] [address] [place] [address] Dr. Mendel Herron Epithelial cells LM Ql (Urine sed) NONE SEEN Normal NONE SEEN /RARE [facility] Comment on above: Performed By: #### L IPID, CMP, T4, TSH, FT3 #### [facility] [address] [address] [address] Mendel Herron MUCOUS NONE SEEN Normal NONE SEEN [facility] Comment on above: Performed By: #### L IPID, CMP, T4, TSH, FT3 #### [facility] [address] [address] [address] Mendel Herron RBC 0-2 Normal 0-2 [facility] Comment on above: Performed By: #### L IPID, CMP, T4, TSH, FT3 #### [facility] [address] [place] [address] Dr. Mendel Herron WBC NONE SEEN Normal NONE SEEN [facility] Comment on above: Performed By: #### L IPID, CMP, T4, TSH, FT3 #### [facility] [address] [place] [address] Dr. Mendel Herron XR CHEST 1 Von [...] Index Value Normal 0.00-0.79 [facility] Comment on above: Result Comment: Nega tive <0.80 Equivocal 0.80 - 0.89 Positive >0.89 Performed By: #### L IPID, CMP, T4, TSH, FT3 #### [facility] [address] [place] [address] Dr. Mendel Herron AMYLASEon 08-06-2022 Amylase [Catalytic activity/Vol] 57 U/L Normal 25-115 [facility] Comment on above: Performed By: #### L IPID, CMP, T4, TSH, FT3 #### [facility] [address] [place] [address] Dr. Mendel Herron CBC AUTO DIFFon 08-06-2022 BASO # 0.1 103/ul Normal 0.0-0.1 [facility] Comment on above: Performed By: #### L IPID, CMP, T4, TSH, FT3 #### [facility] [address] [address] [address] Mendel Herron Basophils/100 WBC (Bld) 0.7 % Normal 0.2-2.0 [facility] Comment on above: Performed By: #### L IPID, CMP, T4, TSH, FT3 #### [facility] [address] [address] [address] Mendel Herron EO # 0.1 103/ul Normal 0.0-0.7 [facility] Comment on above: Performed By: #### L IPID, CMP, T4, TSH, FT3 #### [facility] [address] [place] [address] Dr. Mendel Herron Eosinophils/100 WBC (Bld) 0.5 % Critically low 0.9-7.0 [facility] Comment on above: Performed By: #### L IPID, CMP, T4, TSH, FT3 #### [facility] [address] [place] [address] Dr. Mendel Herron Erythrocyte distribution width (RBC) [Ratio] 13.7 % Normal 11.0-15.0 [facility] Comment on above: Performed By: #### L IPID, CMP, T4, TSH, FT3 #### [facility] [address] [place] [address] Dr. Mendel Herron Hematocrit (Bld) [Volume fraction] 46.2 % Normal 36.0-48.0 [facility] Comment on above: Performed By: #### L IPID, CMP, T4, TSH, FT3 #### [facility] [address] [place] [address] Dr. Mendel Herron Hemoglobin (Bld) [Mass/Vol] 15.1 g/dL Normal 12.0-16.0 [facility] Comment on above: Performed By: #### L IPID, CMP, T4, TSH, FT3 #### [facility] [address] [place] [address] Dr. Mendel Herron IG # 0.06 10e3/ul Critically high 0.00-0.03 [facility] Comment on above: Performed By: #### L IPID, CMP, T4, TSH, FT3 #### [facility] [address] [place] [address] Dr. Mendel Herron IG % 0.6 % Critically high 0.0-0.5 [facility] Comment on above: Performed By: #### L IPID, CMP, T4, TSH, FT3 #### [facility] [address] [place] [address] Dr. Mendel Herron LYMPH # 2.5 103/ul Normal 1.2-3.8 [facility] Comment on above: Performed By: #### L IPID, CMP, T4, TSH, FT3 #### [facility] [address] [place] [address] Dr. Mendel Herron Lymphocytes/100 WBC (Bld) 23.4 % Normal 20.5-60.0 [facility] Comment on above: Performed By: #### L IPID, CMP, T4, TSH, FT3 #### [facility] [address] [place] [address] Dr. Mendel Herron MANUAL DIFF REQ NO Normal [facility] Comment on above: Performed By: #### L IPID, CMP, T4, TSH, FT3 #### [facility] [address] [place] [address] Dr. Mendel Herron MCH (RBC) [Entitic mass] 31.4 pg Normal 26.7-34.0 [facility] Comment on above: Performed By: #### L IPID, CMP, T4, TSH, FT3 #### [facility] [address] [place] [address] Dr. Mendel Herron MCHC (RBC) [Mass/Vol] 32.7 g/dL Normal 29.9-35.2 [facility] Comment on above: Performed By: #### L IPID, CMP, T4, TSH, FT3 #### [facility] [address] [place] [address] Dr. Mendel Herron MCV (RBC) [Entitic vol] 96.0 fL Normal 81.0-99.0 [facility] Comment on above: Performed By: #### L IPID, CMP, T4, TSH, FT3 #### [facility] [address] [place] [address] Dr. Mendel Herron MONO # 0.6 103/ul Normal 0.3-0.8 [facility] Comment on above: Performed By: #### L IPID, CMP, T4, TSH, FT3 #### [facility] [address] [place] [address] Dr. Mendel Herron Monocytes/100 WBC (Bld) 6.0 % Normal 1.7-12.0 [facility] Comment on above: Performed By: #### L IPID, CMP, T4, TSH, FT3 #### [facility] [address] [place] [address] Dr. Mendel Herron NEUT # 7.4 103/ul Critically high 1.4-6.5 [facility] Comment on above: Performed By: #### L IPID, CMP, T4, TSH, FT3 #### [facility] [address] [place] [address] Dr. Mendel Herron Neutrophils/100 WBC (Bld) 68.8 % Normal 43.0-75.0 [facility] Comment on above: Performed By: #### L IPID, CMP, T4, TSH, FT3 #### [facility] [address] [place] [address] Dr. Mendel Herron Platelet mean volume (Bld) [Entitic vol] 9.7 fL Normal 9.5-13.5 [facility] Comment on above: Performed By: #### L IPID, CMP, T4, TSH, FT3 #### [facility] [address] [place] [address] Dr. Mendel Herron PLT 331 103/ul Normal 150-450 [facility] Comment on above: Performed By: #### L IPID, CMP, T4, TSH, FT3 #### [facility] [address] [place] [address] Dr. Mendel Herron RBC 4.81 106/ul Normal 4.20-5.40 [facility] Comment on above: Performed By: #### L IPID, CMP, T4, TSH, FT3 #### [facility] [address] [place] [address] Dr. Mendel Herron WBC 10.7 103/ul Normal 4.0-11.0 [facility] Comment on above: Performed By: #### L IPID, CMP, T4, TSH, FT3 #### [facility] [address] [place] [address] HEAD WO CONon [...] IPID, CMP, T4, TSH, FT3 #### [facility] [address] [address] [address] Mendel Herron PROF 14(COMP METB)on 023 Albumin [Mass/Vol] 3.7 g/dL Normal 3.4-5.0 [facility] Comment on above: Performed By: #### L IPID, CMP, T4, TSH, FT3 #### [facility] [address] [place] [address] Dr. Mendel Herron Albumin/Globulin [Mass ratio] 0.9 {ratio} Normal [facility] Comment on above: Performed By: #### L IPID, CMP, T4, TSH, FT3 #### [facility] [address] [place] [address] Dr. Mendel Herron ALP [Catalytic activity/Vol] 110 U/L Normal 46-116 [facility] Comment on above: Performed By: #### L IPID, CMP, T4, TSH, FT3 #### [facility] [address] [address] [address] Mendel Herron ALT [Catalytic activity/Vol] 25 U/L Normal 14-59 [facility] Comment on above: Performed By: #### L IPID, CMP, T4, TSH, FT3 #### [facility] [address] [address] [address] Mendel Herron Anion gap [Moles/Vol] 14.0 mmol/L Normal [facility] Comment on above: Performed By: #### L IPID, CMP, T4, TSH, FT3 #### [facility] [address] [place] [address] Dr. Mendel Herron AST [Catalytic activity/Vol] 16 U/L Normal 15-37 [facility] Comment on above: Performed By: #### L IPID, CMP, T4, TSH, FT3 #### [facility] [address] [place] [address] Dr. Mendel Herron Bilirubin [Mass/Vol] 0.6 mg/dL Normal 0.2-1.0 [facility] Comment on above: Performed By: #### L IPID, CMP, T4, TSH, FT3 #### [facility] [address] [address] [address] Mendel Herron Calcium [Mass/Vol] 9.3 mg/dL Normal 8.5-10.1 [facility] Comment on above: Performed By: #### L IPID, CMP, T4, TSH, FT3 #### [facility] [address] [address] [address] Mendel Herron Chloride [Moles/Vol] 103 mmol/L Normal 98-107 [facility] Comment on above: Performed By: #### L IPID, CMP, T4, TSH, FT3 #### [facility] [address] [place] [address] Dr. Mendel Herron CO2 [Moles/Vol] 27.3 mmol/L Normal 21.0-32.0 [facility] Comment on above: Performed By: #### L IPID, CMP, T4, TSH, FT3 #### [facility] [address] [place] [address] Dr. Mendel Herron Creatinine [Mass/Vol] 0.71 mg/dL Normal 0.55-1.02 [facility] Comment on above: Performed By: #### L IPID, CMP, T4, TSH, FT3 #### [facility] [address] [place] [address] Dr. Mendel Herron EGFR-AF THAI >60 Normal >=60 [facility] Comment on above: Performed By: #### L IPID, CMP, T4, TSH, FT3 #### [facility] [address] [address] [address] Mendel Herron EGFR-NON AF THAI >60 Normal >=60 [facility] Comment on above: Performed By: #### L IPID, CMP, T4, TSH, FT3 #### [facility] [address] [address] [address] Mendel Herron Globulin (S) [Mass/Vol] 4.3 g/dL Normal [facility] Comment on above: Performed By: #### L IPID, CMP, T4, TSH, FT3 #### [facility] [address] [address] [address] Mendel Herron Glucose [Mass/Vol] 102 mg/dL Normal 74-106 [facility] Comment on above: Performed By: #### L IPID, CMP, T4, TSH, FT3 #### [facility] [address] [address] [address] Mendel Herron Potassium [Moles/Vol] 4.3 mmol/L Normal 3.5-5.1 [facility] Comment on above: Performed By: #### L IPID, CMP, T4, TSH, FT3 #### [facility] [address] [address] [address] Mendel Herron Protein [Mass/Vol] 8.0 g/dL Normal 6.4-8.2 [facility] Comment on above: Performed By: #### L IPID, CMP, T4, TSH, FT3 #### [facility] [address] [address] [address] Mendel Herron Sodium [Moles/Vol] 140 mmol/L Normal 136-145 [facility] Comment on above: Performed By: #### L IPID, CMP, T4, TSH, FT3 #### [facility] [address] [address] [address] Mendel Herron Urea nitrogen [Mass/Vol] 19.0 mg/dL Critically high 7.0-18.0 [facility] Comment on above: Performed By: #### L IPID, CMP, T4, TSH, FT3 #### [facility] [address] [address] [address] Mendel Herron Urea nitrogen/Creatinine [Mass ratio] 26.8 mg/mg Normal [facility] Comment on above: Performed By: #### L IPID, CMP, T4, TSH, FT3 #### [facility] [address] [address] [address] Mendel Herron Covid-19 PCR ([facility])on 06-19 SARS-CoV-2 (COVID-19) RNA DEIRDRE+probe Ql (Unsp spec) Not detected Normal NOT DETECTED [facility] Comment on above: Result Comment: This test is not yet approved or cleared by the [place] FDA. When there are no FDA-approved or cleared tests available, and other criteria are met, FDA can make tests available under an emergency access mechanism called an Emergency Use Authorization (EUA). The EUA for this test is supported by the [place] of Health and Human Service's (HHS's) declaration [...] Performed By: #### C VDTBH #### [facility] [address] [address] [address] Mendel Herron INFLUENZA A AND B AGon 07-16 INFLUANEGH SEE BELOW Normal [facility] Comment on above: Result Comment: Nega tive for Flu A protein angiten. Infection due to Flu A cannot be ruled out. Flu A angiten in the sample may be below the detection limit of the test. Performed By: #### L IPID, CMP, T4, TSH, FT3 #### [facility] [address] [address] [address] Mendel Herron INFLUBNEGH SEE BELOW Normal [facility] Comment on above: Result Comment: Nega tive for Flu B protein antigen. Infection due to Flu B cannot be ruled out. Flu B antigen in the sample may be below the detection limit of the test. Performed By: #### L IPID, CMP, T4, TSH, FT3 #### [facility] [address] [address] [address] Mendel Herron INFLUENZA A AG Negative Normal NEGATIVE SEE COMMENT [facility] Comment on above: Performed By: #### L IPID, CMP, T4, TSH, FT3 #### [facility] [address] [address] [address] Mendel Herron INFLUENZA B AG Negative Normal NEGATIVE SEE COMMENT [facility] Comment on above: Performed By: #### L IPID, CMP, T4, TSH, FT3 #### [facility] [address] [address] [address] Mendel Herron Covid-19 PCR ([facility])on 04-19 SARS-CoV-2 (COVID-19) RNA DEIRDRE+probe Ql (Unsp spec) Not detected Normal NOT DETECTED [facility] Comment on above: Result Comment: This test is not yet approved or cleared by the [place] FDA. When there are no FDA-approved or cleared tests available, and other criteria are met, FDA can make tests available under an emergency access mechanism called an Emergency Use Authorization (EUA). The EUA for this test is supported by the [place] of Health and Human Service's (HHS's) declaration [...] IPID, CMP, T4, TSH, FT3 #### [facility] [address] [address] [address] Mendel Herron INFL[facility]ENZA [facility] Normal [facility] Comment on above: Result Comment: Nega tive for Flu A protein angiten. Infection due to Flu A cannot be ruled out. Flu A angiten in the sample may be below the detection limit of the test. Performed By: #### L IPID, CMP, T4, TSH, FT3 #### [facility] [address] [address] [address] Mendel Herron INFLUBNEGH SEE BELOW Normal [facility] Comment on above: Result Comment: Nega tive for Flu B protein antigen. Infection due to Flu B cannot be ruled out. Flu B antigen in the sample may be below the detection limit of the test. Performed By: #### L IPID, CMP, T4, TSH, FT3 #### [facility] [address] [place] [address] Dr. Mendel Herron INFLUENZA A AG Negative Normal NEGATIVE SEE COMMENT [facility] Comment on above: Performed By: #### L IPID, CMP, T4, TSH, FT3 #### [facility] [address] [place] [address] Dr. Mendel Herron INFLUENZA B AG Negative Normal NEGATIVE SEE COMMENT [facility] Comment on above: Performed By: #### L IPID, CMP, T4, TSH, FT3 #### [facility] [address] [address] [address] Mendel Herron INTERNAL CONTROLS Within Normal Limits Normal Wi thin Normal Limits [facility] Comment on above: Performed By: #### L IPID, CMP, T4, TSH, FT3 #### [facility] [address] [place] [address] Dr. Mendel Herron Comprehensive Metabolic Empo n 12-23-2021 Albumin [Mass/Vol] 3.7 g/dL Normal 3.2-5.5 [facility] Comment on above: Performed By: #### E BS CMP, EBS LIPID #### [facility] [address] Albumin/Globulin [Mass ratio] 1.0 {ratio} Normal [facility] Comment on above: Performed By: #### E BS CMP, EBS LIPID #### [facility] [address] [id number] [place] ALP [Catalytic activity/Vol] 159 U/L High 32-92 [facility] Comment on above: Performed By: #### E BS CMP, EBS LIPID #### [facility] [address] [place] [address] [place] ALT [Catalytic activity/Vol] 28 U/L Normal 10-60 [facility] Comment on above: Performed By: #### E BS CMP, EBS LIPID #### [facility] [address] [place] [address] [place] AST [Catalytic activity/Vol] 27 U/L Normal 10-42 [facility] Comment on above: Performed By: #### E BS CMP, EBS LIPID #### [facility] [address] [id number] [place] Bilirubin [Mass/Vol] 1.2 mg/dL Normal 0.3-1.2 [facility] Comment on above: Performed By: #### E BS CMP, EBS LIPID #### [facility] [address] [id number] [place] Calcium [Mass/Vol] 9.2 mg/dL Normal 8.2-10.2 [facility] Comment on above: Performed By: #### E BS CMP, EBS LIPID #### [facility] [address] [id number] [place] Chloride [Moles/Vol] 100 mmol/L Normal 95-114 [facility] Comment on above: Performed By: #### E BS CMP, EBS LIPID #### [facility] [address] [id number] [place] CO2 [Moles/Vol] 20.6 mmol/L Low 22.0-30.0 [facility] Comment on above: Performed By: #### E BS CMP, EBS LIPID #### [facility] [address] [id number] [place] Creatinine [Mass/Vol] 0.57 mg/dL Normal 0.44-1.03 [facility] Comment on above: Performed By: #### E BS CMP, EBS LIPID #### [facility] [address] [place] [id number] [place] Estimated GFR ( Ni > 60 Normal [facility] Comment on above: Result Comment: GFR estimated reference range: According to KDOQI guidelines, <60 ml/min/1.73m2 is sufficient to diagnose a patient with chronic kidney disease. Performed By: #### E BS CMP, EBS LIPID #### [facility] [address] [place] [id number] [place] Estimated GFR (Non- Am > 60 Normal [facility] Comment on above: Performed By: #### E BS CMP, EBS LIPID #### [address] Globulin (S) [Mass/Vol] 3.7 g/dL Normal [facility] Comment on above: Performed By: #### E BS CMP, EBS LIPID #### [address] Glucose [Mass/Vol] 100 mg/dL Normal 70-100 [facility] Comment on above: Performed By: #### E BS CMP, EBS LIPID #### [address] Potassium [Moles/Vol] 3.9 mmol/L Normal 3.5-5.1 [facility] Comment on above: Performed By: #### E BS CMP, EBS LIPID #### [place] [address] [place] Protein [Mass/Vol] 7.4 g/dL Normal 6.1-7.9 [facility] Comment on above: Performed By: #### E BS CMP, EBS LIPID #### [place] [address] [place] Sodium [Moles/Vol] 135 mmol/L Low 136-146 [facility] Comment on above: Performed By: #### E BS CMP, EBS LIPID #### [facility] [address] [place] [address] [place] Urea nitrogen [Mass/Vol] 12 mg/dL Normal 9-23 [facility] Comment on above: Performed By: #### E BS CMP, EBS LIPID #### [facility] [address] [place] [id number] [place] Lipid Profileon 12-23-2021 Cholesterol [Mass/Vol] 213 mg/dL High 140-200 [facility] Comment on above: Result Comment: Chol less than 200 mg/dl low risk Chol 201-239 mg/dl borderline risk Chol 240 mg/dl and greater high risk Performed By: #### E BS CMP, EBS LIPID #### [facility] [address] [place] [id number] [place] Cholesterol in HDL [Mass/Vol] 36 mg/dL Normal 35-85 [facility] Comment on above: Result Comment: HDL CHOL ATP-III CLASSIFICATION Cardiovascular Risk HDL > or equal to 60 mg/dL LOW HDL < 40 mg/dL HIGH Performed By: #### E BS CMP, EBS LIPID #### [facility] [address] [place] [id number] [place] Cholesterol.total/Ch olesterol in HDL [Mass ratio] 5.9 {ratio} Normal <5.0 [facility] Comment on above: Result Comment: PERF ORMED BY: [place] [address] PATHOLOGIST [employer] MARIBEL AGUILLON M.D. Performed By: #### E BS CMP, EBS LIPID #### [facility] [address] LDL Cholesterol,Calculat ed 151 mg/dL High 0-100 [facility] Comment on above: Result Comment: LDL ATP III CLASSIFICATION LDL less than 100 mg/dL Optimal LDL 100-129 mg/dL Near or above optimal LDL 130-159 mg/dL Borderline high LDL 160-189 mg/dL High LDL greater than 189 mg/dL Very high Performed By: #### E BS CMP, EBS LIPID #### [facility] [address] [place] [id number] [place] Triglyceride w/Reflex 129 mg/dL Normal 35-149 [facility] Comment on above: Result Comment: TRIG ATP III CLASSIFICATION TRIG less than 150 mg/dL Normal TRIG 150-199 mg/dL Borderline high TRIG 200-500 mg/dL High TRIG greater than 500 mg/dL Very high Standard traceable to the Center for Disease Conrtrol and Prevention (CDC) test method. Performed By: #### E BS CMP, EBS LIPID #### [facility] [address] VLDL CHOLESTEROL 25 mg/dL Normal [facility] Comment on above: Performed By: #### E BS CMP, EBS LIPID #### [facility] [address] [id number] [facility] Covid-19 PCR ([facility])on 11-16 SARS-CoV-2 (COVID-19) RNA DEIRDRE+probe Ql (Unsp spec) Detected Critically abnormal NOT DETECTED [facility] Comment on above: Result Comment: This test is not yet approved or cleared by the [place] FDA. When there are no FDA-approved or cleared tests available, and other criteria are met, FDA can make tests available under an emergency access mechanism called an Emergency Use Authorization (EUA). The EUA for this test is supported by the [facility] of Health and Human Service's declaration that [...] Performed By: #### C VDTBH #### [facility] [facility] [address] [place] [address] Dr. Mendel Herron INFLUENZA A AND B AGon 12-02 [facility] SEE BELOW Normal [facility] Comment on above: Result Comment: Nega tive for Flu A protein angiten. Infection due to Flu A cannot be ruled out. Flu A angiten in the sample may be below the detection limit of the test. Performed By: #### L IPID, CMP, T4, TSH, FT3 #### [facility] [address] [address] [address] Mendel Herron INFLUBNEG SEE BELOW Normal [facility] Comment on above: Result Comment: Nega tive for Flu B protein antigen. Infection due to Flu B cannot be ruled out. Flu B antigen in the sample may be below the detection limit of the test. Performed By: #### L IPID, CMP, T4, TSH, FT3 #### [facility] [id number] Mendel Herron INFLUENZA A AG Negative Normal NEGATIVE SEE COMMENT [facility] Comment on above: Performed By: #### L IPID, CMP, T4, TSH, FT3 #### [facility] [id number] Mendel Herron INFLUENZA B AG Negative Normal NEGATIVE SEE COMMENT [facility] Comment on above: Performed By: #### L IPID, CMP, T4, TSH, FT3 #### [facility] [id number] Mendel Herron INTERNAL CONTROLS Within Normal Limits Normal Wi thin Normal Limits [facility] Comment on above: Performed By: #### L IPID, CMP, T4, TSH, FT3 #### [facility] [id number] Mendel Herron Cardiovascular Lab Reporton 08-18-2021 Cardiovascular Lab Report [facility] Patient Name: [facility] S MR #: [id number] Department of Physician: Curtis Martinez MD Medicine Service Date: 08/18/2021 Division of Birthdate: 1970 Cardiology Room #: [facility] Cardiovascular Services [place] [address] Cardiovascular Laboratory Report ATRIAL FLUTTER ABLATION AND [...] ab (more content not included)... Normal [facility] BILL Antinuclear Antibodieson 04-23-2021 Antinuclear Abs, IFA Negative Normal . [facility] Comment on above: Result Comment: Nega tive <1:80 Borderline 1:80 Positive >1:80 ICAP nomenclature: AC-0 For more information about Hep-2 cell patterns use ANApatterns.org, the official website for the International Consensus on Antinuclear Antibody (BILL) Patterns (ICAP). Performed at: - [facility] [id number] Acid Operator: Ger Yen PhD, Phone: [phone] PERFORMED BY: [place] [address] PATHOLOGIST COMMISSARY SUPERINTENDENT MARIBEL AGUILLON M.D. Performed By: #### E SR, CRP, CBC, CREAT #### [address] #### BILL #### [facility] , C-Reactive Proteinon 021 C-Reactive Protein 0.7 mg/dL Normal 0.0-1.0 [facility] Comment on above: Result Comment: PERF ORMED BY: [place] [address] PATHOLOGIST COMMISSARY SUPERINTENDENT MARIBEL AGUILLON M.D. Performed By: #### E SR, CRP, CBC, CREAT #### [facility] [address] [place] [address] [place] #### BILL #### [facility] , Complement C3on 04-23-2021 Complement C3 170 mg/dL High 82-167 [facility] Comment on above: Result Comment: Perf ormed at: [facility] [employer] [id number] Acid Operator: Ger Yen PhD, Phone: [phone] Performed By: #### A DDONUAPLUS #### [address] #### CH50, C3, C4 #### [facility] , Complement C4on 04-23-2021 Complement C4 14 mg/dL Normal 12-38 [facility] Comment on above: Performed By: #### A DDONUAPLUS #### [facility] [address] [place] [address] [place] #### CH50, C3, C4 #### [facility] , Complement Total (CH50)on Complement Total (CH50) >60 Normal >41 [facility] Comment on above: Result Comment: Age [...] determine out of range values. Performed at: [facility] [place] [address] [place], [place] [id number] Acid Operator: Ger Yen PhD, Phone: [phone] PERFORMED BY: [place] [address] PATHOLOGIST COMMISSARY SUPERINTENDENT MARIBEL AGUILLON M.D. Performed By: #### E BS CMP, EBS LIPID #### [address] Complete Blood Count Auto Di ffon 04-23-2021 Basophils (Bld) [#/Vol] 0.1 10*3/uL Normal 0.0-0.2 [facility] Comment on above: Performed By: #### E SR, CRP, CBC, CREAT #### [address] #### BILL #### [facility] , Basophils/100 WBC (Bld) 0.7 % Normal . [facility] Comment on above: Performed By: #### E SR, CRP, CBC, CREAT #### [address] #### BILL #### [facility] , Eosinophils (Bld) [#/Vol] 0.1 10*3/uL Normal 0.0-0.45 [facility] Comment on above: Performed By: #### E SR, CRP, CBC, CREAT #### [address] #### BILL #### [facility] , Eosinophils/100 WBC (Bld) 0.5 % Normal . [facility] Comment on above: Performed By: #### E SR, CRP, CBC, CREAT #### [place] [address] [place] #### BILL #### [facility] , Erythrocyte distribution width (RBC) [Ratio] 18.0 % High 11.9-15.3 [facility] Comment on above: Performed By: #### E SR, CRP, CBC, CREAT #### [facility] [address] [place] [address] #### BILL #### [facility] , Hematocrit (Bld) [Volume fraction] 31.6 % Low 34.0-46.4 [facility] Comment on above: Performed By: #### E SR, CRP, CBC, CREAT #### [facility] [address] [place] [address] [place] #### BILL #### [facility] , Hemoglobin (Bld) [Mass/Vol] 9.8 g/dL Low 11.8-15.4 [facility] Comment on above: Performed By: #### E SR, CRP, CBC, CREAT #### [address] #### BILL #### [facility] , Lymphocytes (Bld) [#/Vol] 1.7 10*3/uL Normal 1.00-4.8 [facility] Comment on above: Performed By: #### E SR, CRP, CBC, CREAT #### [address] #### BILL #### [facility] , Lymphocytes/100 WBC (Bld) 15.0 % Normal . [facility] Comment on above: Performed By: #### E SR, CRP, CBC, CREAT #### [place] [address] [place] #### BILL #### [facility] , MCH (RBC) [Entitic mass] 24.8 pg Normal 24.7-34.3 [facility] Comment on above: Performed By: #### E SR, CRP, CBC, CREAT #### [place] [address] [place] #### BILL #### [facility] , MCV (RBC) [Entitic vol] 80.1 fL Normal 80-100 [facility] Comment on above: Performed By: #### E SR, CRP, CBC, CREAT #### [facility] [address] [place] [address] [place] #### BILL #### [facility] , Mean Corpuscular HGB Conc 31.0 g/dL Low 32.0-35.0 [facility] Comment on above: Performed By: #### E SR, CRP, CBC, CREAT #### [facility] [address] [place] [address] [place] #### BILL #### [facility] , Monocytes (Bld) [#/Vol] 0.5 10*3/uL Normal 0.0-0.8 [facility] Comment on above: Performed By: #### E SR, CRP, CBC, CREAT #### [address] #### BILL #### [facility] , Monocytes/100 WBC (Bld) 4.6 % Normal . [facility] Comment on above: Performed By: #### E SR, CRP, CBC, CREAT #### [place] [address] [place] #### BILL #### [facility] , Neutrophils (Bld) [#/Vol] 9.1 10*3/uL High 1.8-7.7 [facility] Comment on above: Performed By: #### E SR, CRP, CBC, CREAT #### [place] [address] [place] #### BILL #### [facility] , Neutrophils/100 WBC (Bld) 79.2 % Normal . [facility] Comment on above: Performed By: #### E SR, CRP, CBC, CREAT #### [place] [address] [place] #### BILL #### [facility] , Nucleated RBC/100 WBC (Bld) [Ratio] 0.1 % Normal 0-0.5 [facility] Comment on above: Performed By: #### E SR, CRP, CBC, CREAT #### [facility] [address] [place] [address] #### BILL #### [facility] , Platelet mean volume (Bld) [Entitic vol] 8.3 fL Normal 6.3-10.7 [facility] Comment on above: Performed By: #### E SR, CRP, CBC, CREAT #### [address] #### BILL #### [facility] , Platelets (Bld) [#/Vol] 336 10*3/uL Normal 150-450 [facility] Comment on above: Performed By: #### E SR, CRP, CBC, CREAT #### [place] [address] [place] #### BILL #### [facility] , RBC (Bld) [#/Vol] 3.94 10*6/uL Normal 3.60-5.00 [facility] Comment on above: Performed By: #### E SR, CRP, CBC, CREAT #### [address] #### BILL #### [facility] , WBC (Bld) [#/Vol] 11.5 10*3/uL High 4.5-11.0 [facility] Comment on above: Performed By: #### E SR, CRP, CBC, CREAT #### [place] [address] [place] #### BILL #### [facility] , Creatinineon 04-23-2021 Creatinine [Mass/Vol] 0.75 mg/dL Normal 0.44-1.03 [facility] Comment on above: Performed By: #### E SR, CRP, CBC, CREAT #### [place] [address] [place] #### BILL #### [facility] , Estimated GFR ( Ni > 60 Normal [facility] Comment on above: Result Comment: GFR estimated reference range: According to KDOQI guidelines, <60 ml/min/1.73m2 is sufficient to diagnose a patient with chronic kidney disease. Performed By: #### E SR, CRP, CBC, CREAT #### [facility] [address] [place] [address] #### BILL #### [facility] , Estimated GFR (Non- Am > 60 Normal [facility] Comment on above: Performed By: #### E SR, CRP, CBC, CREAT #### [address] #### BILL #### [facility] , Dipstick and Microscopicon 1 Appearance (U) Clear Normal Clear [facility] Comment on above: Order Comment: Name Collection Type:: Clean-Voided Midstream Performed By: #### A DDONUAPLUS #### [address] #### CH50, C3, C4 #### [facility] , Bacteria,Urine None Seen Normal None Seen [facility] Comment on above: Order Comment: Name Collection Type:: Clean-Voided Midstream Performed By: #### A DDONUAPLUS #### [address] #### CH50, C3, C4 #### [facility] , Bilirubin,Urine Negative Normal Negative [facility] Comment on above: Order Comment: Name Collection Type:: Clean-Voided Midstream Performed By: #### A DDONUAPLUS #### [address] #### CH50, C3, C4 #### [facility] , Color (U) Yellow Normal Yellow [facility] Comment on above: Order Comment: Name Collection Type:: Clean-Voided Midstream Performed By: #### A DDONUAPLUS #### [address] #### CH50, C3, C4 #### [facility] , Glucose Ql (U) 100 mg/dL High Normal [facility] Comment on above: Order Comment: Name Collection Type:: Clean-Voided Midstream Performed By: #### A DDONUAPLUS #### [address] #### CH50, C3, C4 #### [facility] , Hyaline Casts,Urine 0-8 Normal 0-8 [facility] Comment on above: Order Comment: Name Collection Type:: Clean-Voided Midstream Result Comment: PERF ORMED BY: [place] [address] PATHOLOGIST COMMISSARY SUPERINTENDENT MARIBEL AGUILLON M.D. Performed By: #### A DDONUAPLUS #### [address] #### CH50, C3, C4 #### [facility] , Ketones Ql (U) Negative Normal Negative [facility] Comment on above: Order Comment: Name Collection Type:: Clean-Voided Midstream Performed By: #### A DDONUAPLUS #### [address] #### CH50, C3, C4 #### [facility] , Leukocyte esterase Test strip Ql (U) Negative Normal Negative [facility] Comment on above: Order Comment: Name Collection Type:: Clean-Voided Midstream Performed By: #### A DDONUAPLUS #### [address] #### CH50, C3, C4 #### [facility] , Nitrite,Urine Negative Normal Negative [facility] Comment on above: Order Comment: Name Collection Type:: Clean-Voided Midstream Performed By: #### A DDONUAPLUS #### [address] #### CH50, C3, C4 #### [facility] , Occult Blood,Urine Negative Normal Negative [facility] Comment on above: Order Comment: Name Collection Type:: Clean-Voided Midstream Performed By: #### A DDONUAPLUS #### [address] #### CH50, C3, C4 #### [facility] , pH (U) 5.0 [pH] Normal 5.0-9.0 [facility] Comment on above: Order Comment: Name Collection Type:: Clean-Voided Midstream Performed By: #### A DDONUAPLUS #### [address] #### CH50, C3, C4 #### [facility] , Protein,Urine Negative Normal Negative [facility] Comment on above: Order Comment: Name Collection Type:: Clean-Voided Midstream Performed By: #### A DDONUAPLUS #### [address] #### CH50, C3, C4 #### [facility] , RBC,Urine None Seen Normal 0-4 [facility] Comment on above: Order Comment: Name Collection Type:: Clean-Voided Midstream Performed By: #### A DDONUAPLUS #### [address] #### CH50, C3, C4 #### [facility] , Specificy [place],Urine 1.009 Normal 1.001-1.030 [facility] Comment on above: Order Comment: Name Collection Type:: Clean-Voided Midstream Performed By: #### A DDONUAPLUS #### [address] #### CH50, C3, C4 #### [facility] , Squamous Epithelial Cell,Urine 0-1 Normal 0-2 [facility] Comment on above: Order Comment: Name Collection Type:: Clean-Voided Midstream Performed By: #### A DDONUAPLUS #### [address] #### CH50, C3, C4 #### [facility] , Urobilinogen,Urine Normal Normal Normal [facility] Comment on above: Order Comment: Name Collection Type:: Clean-Voided Midstream Performed By: #### A DDONUAPLUS #### [address] #### CH50, C3, C4 #### [facility] , WBC LM.HPF (Urine sed) [#/Area] 0 /[HPF] Normal 0-4 [facility] Comment on above: Order Comment: Name Collection Type:: Clean-Voided Midstream Performed By: #### A DDONUAPLUS #### [address] #### CH50, C3, C4 #### [facility] , Erythrocyte Sedimentation Ra ryley 04-23-2021 ESR (Bld) [Velocity] 55 mm/h High 0-29 [facility] Comment on above: Result Comment: PERF ORMED BY: [place] [address] PATHOLOGIST COMMISSARY SUPERINTENDENT MARIBEL AGUILLON M.D. Performed By: #### E SR, CRP, CBC, CREAT #### [address] #### BILL #### [facility] , BASIC METABOLIC PANELon 03-20 Calcium [Mass/Vol] 8.7 mg/dL Normal 8.6-10.3 [facility] Comment on above: Order Comment: No: D o not add to previous draw Performed By: #### 5 73, 15599 #### [facility] [address] [place] [address], [place] Chloride [Moles/Vol] 97 mmol/L Low 98-107 [facility] Comment on above: Order Comment: No: D o not add to previous draw Performed By: #### 5 73, 20196 #### [facility] [address] [place] [address], [place] CO2 [Moles/Vol] 36 mmol/L High 21-31 The [facility] Comment on above: Order Comment: No: D o not add to previous draw Performed By: #### 5 73, 69630 #### [facility] [address] [place] [address], [place] Creatinine [Mass/Vol] 0.74 mg/dL Normal 0.60-1.20 [facility] Comment on above: Order Comment: No: D o not add to previous draw Performed By: #### 5 73, 86261 #### [facility] [address] [place] [address], [place] GFR/1.73 sq M.predicted among blacks MDRD (S/P/Bld) [Vol rate/Area] mL/min/{1.73_m2} Normal >60 [facility] Comment on above: Order Comment: No: D o not add to previous draw Performed By: #### 5 7307, 85939 #### [facility] [address] [place] [address], [place] GFR/1.73 sq M.predicted among non-blacks MDRD (S/P/Bld) [Vol rate/Area] mL/min/{1.73_m2} Normal >60 [facility] Comment on above: Order Comment: No: D o not add to previous draw Performed By: #### 5 7307, 30317 #### [facility] [address] [place] [address], [place] Glucose [Mass/Vol] 123 mg/dL High 70-100 The [facility] Comment on above: Order Comment: No: D o not add to previous draw Performed By: #### 5 7307, 27798 #### [facility] [address] [place] [address], [place] Potassium [Moles/Vol] 4.3 mmol/L Normal 3.5-5.1 [facility] Comment on above: Order Comment: No: D o not add to previous draw Performed By: #### 5 73, 26015 #### [facility] [address] [place] [address], [place] Sodium [Moles/Vol] 139 mmol/L Normal 136-145 [facility] Comment on above: Order Comment: No: D o not add to previous draw Performed By: #### 5 73, 42906 #### [facility] [address] [place] [address], [facility] Urea nitrogen [Mass/Vol] 24 mg/dL Normal 7-25 [facility] Comment on above: Order Comment: No: D o not add to previous draw Performed By: #### 5 7307, 82896 #### [facility] [address] [place] [id number], [facility] CBC COMPLETE BLOOD COUNTon 0 - Erythrocyte distribution width (RBC) [Ratio] 16.8 % High 11.5-15.0 [facility] Comment on above: Order Comment: No: D o not add to previous draw Performed By: #### 5 7307, 35601 #### [facility] [address] [place] [address], [place] Hematocrit (Bld) [Volume fraction] 29.7 % Low 36.0-45.0 [facility] Comment on above: Order Comment: No: D o not add to previous draw Performed By: #### 5 7307, 23267 #### [facility] [address] Hemoglobin (Bld) [Mass/Vol] 8.9 g/dL Low 12.0-15.0 [facility] Comment on above: Order Comment: No: D o not add to previous draw Performed By: #### 5 7307, 33760 #### [facility] [address] [place] [address], [facility] MCH (RBC) [Entitic mass] 25.4 pg Low 27.0-33.0 [facility] Comment on above: Order Comment: No: D o not add to previous draw Performed By: #### 5 7307, 93876 #### [facility] [address] [place] [address], [facility] MCHC (RBC) [Mass/Vol] 30.0 g/dL Low 32.0-35.0 [facility] Comment on above: Order Comment: No: D o not add to previous draw Performed By: #### 5 73, 02436 #### [facility] [address] MCV (RBC) [Entitic vol] 84.9 fL Normal 82.0-98.0 [facility] Comment on above: Order Comment: No: D o not add to previous draw Performed By: #### 5 73, 51153 #### [facility] [address] Nucleated RBC/100 WBC (Bld) [Ratio] 0 % Normal 0-0 [facility] Comment on above: Order Comment: No: D o not add to previous draw Performed By: #### 5 7307, 11707 #### [facility] [address] [place] [address], [facility] PLAT CNT 446 10*3/uL High 150-400 The [facility] Comment on above: Order Comment: No: D o not add to previous draw Performed By: #### 5 73, 62959 #### [facility] [address] RBC (Bld) [#/Vol] 3.50 10*6/uL Low 3.80-5.00 The [facility] Comment on above: Order Comment: No: D o not add to previous draw Performed By: #### 5 7307, 06670 #### [facility] [address] WBC (Bld) [#/Vol] 16.54 10*3/uL High 4.00-10.60 [facility] Comment on above: Order Comment: No: D o not add to previous draw Performed By: #### 5 7307, 87249 #### [address] Cardiovascular Lab Reporton 04-11-2021 Cardiovascular Lab Report [facility] Patient Name: [facility] S MR #: [id number] Department of Physician: London Rodas M.D. Division of Service Date: 04/11/2021 Cardiology Birthdate: 1970 Adult Cardiovascular Room #: [address]AB [id number] [place] [address] Cardiovascular Laboratory Report PROCEDURE PERFORMED: Transesophageal echocardiogram and cardioversion. INDICATION: Atrial flutter. FELLOW: Dunia Sierra MD PROCEDURE IN DETAIL: Informed consent was obtained from the patient after explaining the indication, risks, benefits, as well as alternatives. The patient understood and agreed, and signed the consent form. 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 [address], [facility] [id number] Normal [facility] MAGNESIUM BLOODon 04-11-2021 Magnesium [Mass/Vol] 2.3 mg/dL Normal 1.9-2.7 [facility] Comment on above: Order Comment: No: D o not add to previous draw Performed By: #### 5 7307, 02899 #### [facility] [address] POC GLUCOSE LABon 04-11-2021 Glucose [Mass/Vol] 124 mg/dL High 70-100 The [facility] Comment on above: Performed By: #### 5 7307, 71043 #### [facility] [address] [place] [address], [facility] TROPONIN-Ion 04-11-2021 Troponin I.cardiac [Mass/Vol] 0.06 ng/mL High 0.00-0.04 [facility] Comment on above: Order Comment: No: D o not add to previous draw Result Comment: REFE RENCE RANGES: 0.00 - 0.04 ng/ml NORMAL 0.05 - 0.50 ng/ml INDETERMINATE > 0.50 ng/ml CONSISTENT WITH AN M.I. Performed By: #### 5 7307, 60927 #### [facility] [address] *BLOOD CULTUREon 04-10-2021 *BLOOD CULTURE Clinical Report: (D) Specimen: BLOOD CULTURE Collected: 04/10/2021 09:50 Status: Final Last Updated: 04/15/2021 11:28 (1) Right hand CULT RES (Final) No Growth Day 5 Normal [facility] Comment on above: Order Comment: No: D o not add to previous draw Performed By: #### 5 7307, 53847 #### [facility] [address] *BLOOD CULTURE Clinical Report: (D) Specimen: BLOOD CULTURE Collected: 04/10/2021 09:50 Status: Final Last Updated: 04/15/2021 11:28 (1) Left hand CULT RES (Final) No Growth Day 5 Normal [facility] Comment on above: Order Comment: No: D o not add to previous draw Performed By: #### 5 7307, 43184 #### [facility] [address] *SARS-CoV-2 COVID-19on 04-10 SARS-CoV-2 (COVID-19) RNA DEIRDRE+probe Ql (Unsp spec) Not detected Normal Not Detected [facility] Comment on above: Order Comment: No: D o not add to previous draw Performed By: #### 5 7307, 75634 #### [facility] [address] APTTon 04-10-2021 aPTT Coag (Bld) [Time] 23.4 s Low 25.0-35.0 [facility] Comment on above: Order [...] THIS PURPOSE. Performed By: #### 5 7307, 13131 #### [facility] [address] [place] [address], [facility] aPTT Coag (Bld) [Time] 23.2 s Low 25.0-35.0 [facility] Comment on above: Order [...] THIS PURPOSE. Performed By: #### 5 7307, 37929 #### [facility] [address] [place] [address], [facility] BASIC METABOLIC PANELon 09-2 Calcium [Mass/Vol] 8.6 mg/dL Normal 8.6-10.3 [facility] Comment on above: Order Comment: No: D o not add to previous draw Performed By: #### 1 0070, 37224, 37969 #### [facility] [address] [place] [address], [facility] Chloride [Moles/Vol] 99 mmol/L Normal 98-107 [facility] Comment on above: Order Comment: No: D o not add to previous draw Performed By: #### 1 0070, 07520, 58461 #### [facility] [address] [place] [id number], [facility] CO2 [Moles/Vol] 32 mmol/L High 21-31 The [facility] Comment on above: Order Comment: No: D o not add to previous draw Performed By: #### 1 0070, 47684, 60276 #### [facility] [address] [place] [id number], [facility] Creatinine [Mass/Vol] 0.84 mg/dL Normal 0.60-1.20 [facility] Comment on above: Order Comment: No: D o not add to previous draw Performed By: #### 1 0, 86604, 26160 #### [facility] [address] [place] [address], [place] GFR/1.73 sq M.predicted among blacks MDRD (S/P/Bld) [Vol rate/Area] mL/min/{1.73_m2} Normal >60 [facility] Comment on above: Order Comment: No: D o not add to previous draw Performed By: #### 1 0070, 29491, 34396 #### [facility] [address] [place] [address], [place] GFR/1.73 sq M.predicted among non-blacks MDRD (S/P/Bld) [Vol rate/Area] mL/min/{1.73_m2} Normal >60 The [facility] Comment on above: Order Comment: No: D o not add to previous draw Performed By: #### 1 0, 47652, 25830 #### [facility] [address] [place] [address], [place] Glucose [Mass/Vol] 117 mg/dL High 70-100 The [facility] Comment on above: Order Comment: No: D o not add to previous draw Performed By: #### 1 0, 23506, 77856 #### [facility] [address] [place] [address], [place] Potassium [Moles/Vol] 3.9 mmol/L Normal 3.5-5.1 The [facility] Comment on above: Order Comment: No: D o not add to previous draw Performed By: #### 1 0070, 52997, 64060 #### [facility] [address] [place] [address], [place] Sodium [Moles/Vol] 139 mmol/L Normal 136-145 The [facility] Comment on above: Order Comment: No: D o not add to previous draw Performed By: #### 1 0, 85935, 40616 #### [facility] [address] Urea nitrogen [Mass/Vol] 19 mg/dL Normal 7-25 The [facility] Comment on above: Order Comment: No: D o not add to previous draw Performed By: #### 1 0070, 59736, 39470 #### [facility] [address] [facility] BNP (B-TYPE NATRIURETIC PEPT MARILYN)on 04-10-2021 Natriuretic peptide B (Bld) [Mass/Vol] 259 pg/mL High 0-100 The [facility] Comment on above: Order Comment: No: D o not add to previous draw Result Comment: Give n the appropriate clinical setting a BNP result of >100 pg/mL indicates congestive heart failure. Performed By: #### 5 7307, 35774 #### [facility] [address] [facility] [place] [address], [facility] CBC W/DIFFon 04-10-2021 ABS IMM GRANS 1.1 10*3/uL High 0.0-0.2 The [facility] Comment on above: Performed By: #### 5 0103 #### [facility] [address] [facility]. [address] ABS NEUTROPHILS 9.6 10*3/uL High 1.6-7.6 The [facility] Comment on above: Performed By: #### 5 0103 #### [facility] [address] [facility] [place] [address], [facility] ANISO MODERATE Normal The [facility] Comment on above: Performed By: #### 5 0103 #### [facility] [address] [facility] [place] [address], [facility] Basophils (Bld) [#/Vol] 0.1 10*3/uL Normal 0.0-0.2 The [facility] Comment on above: Performed By: #### 5 0103 #### [facility] [address] [facility] [place] [address], [facility] Basophils/100 WBC (Bld) 0.7 % Normal 0.0-1.0 The [facility] Comment on above: Performed By: #### 5 0103 #### [facility] [address] [facility] [place] [place] [address], [facility] Eosinophils (Bld) [#/Vol] 0.1 10*3/uL Normal 0.0-0.5 The [facility] Comment on above: Performed By: #### 5 0103 #### [facility] [address] [place] [address], [facility] Eosinophils/100 WBC (Bld) 0.4 % Normal 0.0-6.0 The [facility] Comment on above: Performed By: #### 5 0103 #### [facility] [address] Erythrocyte distribution width (RBC) [Ratio] 16.5 % High 11.5-15.0 The [facility] Comment on above: Performed By: #### 3 #### [facility] [address] Hematocrit (Bld) [Volume fraction] 31.2 % Low 36.0-45.0 The [facility] Comment on above: Performed By: #### 5 0103 #### [facility] [address] Hemoglobin (Bld) [Mass/Vol] 9.0 g/dL Low 12.0-15.0 The [facility] Comment on above: Performed By: #### 5 0103 #### [facility] [address] [place] [address], [facility] HYPO SLIGHT Normal The [facility] Comment on above: Performed By: #### 3 #### [facility] [address] [facility] [place] [address], [facility] IMMATURE GRANS 6.8 % High 0.0-1.0 The Odalys lopez [facility] Comment on above: Performed By: #### 5 0103 #### [facility] [address] [address], [facility] Lymphocytes (Bld) [#/Vol] 4.4 10*3/uL High 1.2-4.0 The [facility] Comment on above: Performed By: #### 5 0103 #### [facility] [address] [facility] [place] [address], [facility] Lymphocytes/100 WBC (Bld) 26.4 % Normal 20.0-45.0 The [facility] Comment on above: Performed By: #### 5 0103 #### [facility] [address] [facility] [place] [address], [facility] MCH (RBC) [Entitic mass] 25.3 pg Low 27.0-33.0 The [facility] Comment on above: Performed By: #### 5 0103 #### [facility] [address] [facility] [place] [address], [facility] MCHC (RBC) [Mass/Vol] 28.8 g/dL Low 32.0-35.0 The [facility] Comment on above: Performed By: #### 5 0103 #### [facility] [address] [facility] [place] [address], [facility] MCV (RBC) [Entitic vol] 87.6 fL Normal 82.0-98.0 The [facility] Comment on above: Performed By: #### 5 0103 #### [facility] [address] [address], [facility] Monocytes (Bld) [#/Vol] 1.3 10*3/uL High 0.1-1.0 The [facility] Comment on above: Performed By: #### 5 3 #### [facility] [address] [place] [address], [facility] MONOS 7.6 % Normal 5.0-12.0 [facility] Comment on above: Performed By: #### 5 0103 #### [facility] [address] [place] [address], [facility] Neutrophils/100 WBC (Bld) 58.1 % Normal 40.0-72.0 [facility] Comment on above: Performed By: #### 5 0103 #### [facility] [address] [place] [address], [facility] Nucleated RBC/100 WBC (Bld) [Ratio] 1 % High 0-0 The [facility] Comment on above: Performed By: #### 5 0103 #### [facility] [address] [place] [address], [facility] PLAT CNT 483 10*3/uL High 150-400 The [facility] Comment on above: Performed By: #### 5 0103 #### [facility] [address] [facility]. [address] POIK SLIGHT Normal [facility] Comment on above: Performed By: #### 5 0103 #### [facility] [address] [place] [address], [facility] POLY SLIGHT Normal The [facility] Comment on above: Performed By: #### 5 3 #### [facility] [address] [facility] [place] [address], [facility] RBC (Bld) [#/Vol] 3.56 10*6/uL Low 3.80-5.00 [facility] Comment on above: Performed By: #### 5 0103 #### [facility] [address] [facility] [place] [address], [facility] WBC (Bld) [#/Vol] 16.54 10*3/uL High 4.00-10.60 The [facility] Comment on above: Performed By: #### 5 0103 #### [facility] [address] [place] [address], [facility] LIPID PROFILEon 04-10-2021 Cholesterol [Mass/Vol] 161 mg/dL Normal 120-200 [facility] Comment on above: Result Comment: CHOL ESTEROL REFERENCE RANGE: 20 YEARS AND OLDER CARDIOVASCULAR RISK Less than 200 mg/dl Low Risk 200 to 239 mg/dl Borderline Risk 240 mg/dl and greater High Risk Performed By: #### 3 1569, 52916, 80154 #### [facility] [address] [place] [address], [facility] Cholesterol in HDL [Mass/Vol] 61 mg/dL Normal 23-92 [facility] Comment on above: Result Comment: Slig ht variation in normal range could be due to gender and/or age. HDL CHOLESTEROL REFERENCE RANGE: 20 years and older Cardiovascular Risk > or =60 mg/dL Desirable 40 TO 59 mg/dL Low Risk <40 mg/dL High Risk Performed By: #### 3 1569, 75234, 61141 #### [facility] [address] [place] [address], [facility] Cholesterol in LDL [Mass/Vol] 28 mg/dL Normal 0-130 [facility] Comment on above: Result Comment: LDL IS A CALCULATION LDL IS ONLY VALID IF THE TRIG IS LESS THAN 400. Performed By: #### 3 1569, 99544, 30974 #### [facility] [address] [place] [address], [facility] Cholesterol.total/Ch olesterol in HDL [Mass ratio] 2.6 {ratio} Normal .0-4.5 [facility] Comment on above: Performed By: #### 3 1569, 24331, 43148 #### [facility] [address] [place] [address], [place] NON-HDL CHOLESTEROL 100 mg/dL Normal [facility] Comment on above: Performed By: #### 3 1569, 25640, 71574 #### [facility] [address] [place] [address], [place] Triglyceride [Mass/Vol] 362 mg/dL High 40-149 The [facility] Comment on above: Result Comment: TRIG LYCERIDE REFERENCE RANGE: 20 YEARS AND OLDER CARDIOVASCULAR RISK LESS THAN 150 mg/dl LOW RISK 150 TO 199 mg/dl BORDERLINE RISK 200 mg/dl AND GREATER HIGH RISK Performed By: #### 3 1569, 93019, 96652 #### [facility] [address] [place] [address], [facility] VLDL CHOL 72 mg/dL High 0-40 [facility] Comment on above: Performed By: #### 3 1569, 66464, 50344 #### [facility] [address] [place] [address], [facility] MAGNESIUM BLOODon 04-10-2021 Magnesium [Mass/Vol] 2.4 mg/dL Normal 1.9-2.7 [facility] Comment on above: Order Comment: No: D o not add to previous draw Performed By: #### 1 0070, 18429, 73633 #### [facility] [address] [place] [address], [facility] POC GLUCOSE LABon 04-10-2021 Glucose [Mass/Vol] 350 mg/dL High 70-100 [facility] Comment on above: Performed By: #### 5 7307, 59833 #### [facility] [address] [place] [address], [place] Glucose [Mass/Vol] 249 mg/dL High 70-100 The [facility] Comment on above: Performed By: #### 5 7307, 51233 #### [facility] [address] [place] [address], [facility] PROCALCITONINon 04-10-2021 PROCALCITONIN 0.09 ng/mL Normal 0.00-0.10 The [facility] Comment on above: Order Comment: No: [...] initial PCT<0.5ng/mL Performed By: #### 5 7307, 09695 #### [address] PROTHROMBIN TIMEon 1 INR Coag (PPP) [Relative time] 1.07 {INR} Normal 0.91-1.16 The [facility] Comment on above: Order [...] CHEST 1995;108:[id number]. Performed By: #### 5 7307, 13234 #### [facility] [address] PT Coag (PPP) [Time] 13.9 s Normal 12.3-14.8 [facility] Comment on above: Order Comment: No: D o not add to previous draw Result Comment: ALL RESULTS MUST BE INTERPRETED WITH RESPECT TO BLOOD DRAWING ARTIFACT OR DILUTION ERROR OF ANTICOAGULANT AT THE TIME OF SAMPLING. Performed By: #### 5 7307, 09576 #### [facility] [address] TROPONIN-Ion 04-10-2021 Troponin I.cardiac [Mass/Vol] 0.07 ng/mL High 0.00-0.04 [facility] Comment on above: Order Comment: No: D o not add to previous draw Result Comment: REFE RENCE RANGES: 0.00 - 0.04 ng/ml NORMAL 0.05 - 0.50 ng/ml INDETERMINATE > 0.50 ng/ml CONSISTENT WITH AN M.I. Performed By: #### 3 1569, 19193, 16553 #### [facility] [address] Troponin I.cardiac [Mass/Vol] 0.07 ng/mL High 0.00-0.04 The [facility] Comment on above: Order Comment: No: D o not add to previous draw Result Comment: REFE RENCE RANGES: 0.00 - 0.04 ng/ml NORMAL 0.05 - 0.50 ng/ml INDETERMINATE > 0.50 ng/ml CONSISTENT WITH AN M.I. Performed By: #### 1 0070, 36119, 69768 #### [facility] [address] TSH3 WITH REFLEX FT4on 04-10 TSH 3RD GENERATION 0.95 uIU/mL Normal 0.34-5.60 The [facility] Comment on above: Order Comment: Yes: Add to Previous draw if able Performed By: #### 3 1569 #### [facility] [address] [facility] TSH 3RD GENERATION 3.12 uIU/mL Normal 0.34-5.60 The [facility] Comment on above: Performed By: #### 3 1569, 92796, 34838 #### [facility] [address] UFH HEPARIN ASSAYon 04-10-20 21 UNFRACTIONATED HEPARIN >1.00 Critically high 0.30-0.70 The [facility] Comment on above: Result Comment: Resu lt checked and called. Accurately read back by Haven Avila RN at 1122 per RN patient may have previously been given Eliquis. UFH = 1.36 for pharmacy use Rivaroxaban and Apixaban will interfere with the anti Xa assay used to monitor UFH and LMWH. Performed By: #### 5 7307, 06956 #### [facility] [address] Cardiovascular Lab Reporton 01-30-2021 Cardiovascular Lab Report [facility] Patient Name: Antonio [facility] MR #: [id number] Department of Physician: London Ross M.D. Division of Service Date: 01/30/2021 Cardiology Birthdate: 1970 Adult Cardiovascular Room #: [facility] [address] [place] [address] Cardiovascular Laboratory Report FINAL IMPRESSIONS: 1. Moderately [...] 5. Follow up with Cardiology in the [facility] Cardiology office in the next [...] right internal jugular vein was obtained. A 6-Luxembourgish glide sheath was inserted without difficulty. A [...] Bear M.D. Date Trans: 01/30/2021 02:48 P/marixa [id number] cc: Phillip Ann M.D. [address], [place] [address] [facility] Vital Signs Date Time Vital Sign Value Performing Clinician Iman stafford 04-04-2024 13:58-0400 Blood Pressure Location [facility] [place] 04-04-2024 13:58-0400 Diastolic blood pressure 76 mm[Hg] Juan Miguel NILL [facility] [place] 04-04-2024 13:58-0400 Heart rate 72 /min Juan Miguel NILL [facility] [place] 04-04-2024 13:58-0400 Respiratory rate 16 /min Juan Miguel NILL [facility] Surgery [place] 04-04-2024 13:58-0400 Systolic blood pressure 122 mm[Hg] Juan Miguel NILL [facility] [place] 09-15-2022 15:24-0500 Blood Pressure Location Juan Miguel NILL [facility] [place] 09-15-2022 15:24-0500 Diastolic blood pressure 78 mm[Hg] Juan Miguel NILL [facility] [place] 09-15-2022 15:24-0500 Heart rate 70 /min Juan Miguel NILL [facility] [place] 09-15-2022 15:24-0500 Respiratory rate 16 /min Juan Miguel NILL [facility] [place] 09-15-2022 15:24-0500 Systolic blood pressure 116 mm[Hg] Juan Miguel NILL [facility] Encounters Encounter Date Encounter Type Care Provider Facility Start: 03-07-2025 ambulatory BESSIE MORRISSEY [facility] Start: 12-27-2024 End: 12-27-2024 ambulatory [facility] Start: 10-26-2024 End: 10-26-2024 ambulatory [facility] Start: 10-18-2024 ambulatory [facility] Start: 09-12-2024 End: 09-12-2024 ambulatory [facility] Start: 06-09-2024 ambulatory [facility] Start: 05-24-2024 ambulatory [facility] Start: 04-19-2024 End: 04-19-2024 ambulatory Juan Miguel CHAVEZ Facility:CD:[id number] Start: [facility] Start: 04-13-2024 End: 04-13-2024 ambulatory [facility] Start: 04-13-2024 End: 04-13-2024 Encounter for other preprocedural examination [facility] Start: 04-04-2024 End: 04-04-2024 ambulatory Juan Miguel CHAVEZ Facility:[facility] Start: 04-04-2024 End: 04-04-2024 Patient encounter procedure Juan Miguel CHAVEZ [facility] Start: 11-17-2022 End: 11-17-2022 ambulatory EMILY ZHONG [...] Evaluation and management of inpatient PHILLIP ANN Facility:[facility] Start: 01-30-2021 End: 01-31-2021 ambulatory CASSY BEAR Facility:[facility] Procedures Date Procedure Procedure Detail Performing Clinician Start: 04-11-2021 Mormon of Cardi ac Rhythm, Single SAMER J FLASH Start: 04-11-2021 ULTRASONOGRAPHY OF H EART WITH [...] unspecified formulation Juan Miguel CHAVEZ [facility] [place] 10-29-2020 SARS-CoV-2 (COVID-19 ) mRNA-1273 vaccine Juan Miguel NILL [facility] [place] 10-25-2020 SARS-CoV-2 (COVID-19 ) mRNA BNT-162b2 vax Juan Miguel NILL [facility] [place] Comment on above: Result Comment: 2022: [id number] 10-24-2020 SARS-CoV-2 (COVID-19 ) mRNA BNT-162b2 vax Juan Miguel NILL [facility] 10-04-2020 SARS-CoV-2 (COVID-19 ) mRNA BNT-162b2 vax Juan Miguel NILL [facility] [place] Comment on above: Result Comment: 2022: [id number] 10-03-2020 SARS-CoV-2 (COVID-19 ) mRNA BNT-162b2 vax Juan Miguel NILL [facility] Payers Date Payer Category Payer Unknown [id number] 1970 Unknown [id number] 2.16.8 [id number] 1970 Unknown [id number] 2.16.8 40.1.789010.3.579.2.647 1970 Unknown [id number] 2.16.84 0.1.986087.3.579.2.593 1970 Unknown [id number] 2.16.84 0.1.119590.3.579.2.593 1970 Unknown [id number] 2.16.84 0.1.671752.3.579.2.593 1968 Unknown [id number] 2.16.84 0.1.722370.3.579.2.593 1970 Unknown [id number] 2.16.84 0.1.463354.3.579.2.593 1970 Unknown [id number] 2.16.84 0.1.040143.3.579.2.593 1968 Unknown [id number] 2.16.84 0.1.308060.3.579.2.593 1968 Unknown [id number] 2.16.84 0.1.613661.3.579.2.593 1968 Unknown [id number] 2.16.84 0.1.286928.3.579.2.593 1968 Unknown [id number] 2.16.84 0.1.120200.3.579.2.593 1968 Unknown [id number] 2.16.84 0.1.758314.3.579.2.593 1968 Unknown [id number] 2.16.84 0.1.148684.3.579.2.593 1968 Unknown [id number] 2.16.84 0.1.662246.3.579.2.593 1968 Unknown [id number] 2.16.8 40.1.908022.3.579.2.727 1970 Unknown [id number] 2.16.8 40.1.969587.3.579.2.727 1961 Unknown [id number] 1961 Unknown [id number] 1961 Unknown [id number] 1961 Unknown [id number] Social History Date Type Detail Facility Start: 09-15-2022 End: 04-04-2024 Tobacco smoking status Ex-smoker (finding) [facility] Tobacco smoking status Never [facility] Sex Assigned At Female [facility] Medical Equipment Procedure Code Equipment Code Equipment Origin al Text Equipment Identifier Dates lancets, glucome ter, alcohol swabs, testing strips, insulin pen needles, Print Requisition, Supply Start: 08-25-2021 lancets, glucome ter, alcohol swabs, testing strips, insulin pen needles, Print Requisition, Supply Start: 08-25-2021 Functional Status Date Assessment Result Facility 04-04-2024 Functional Status N/A Flanagan-Mika [facility] 09-15-2022 Functional Status N/A [facility] Montalvo umberto [place] Clinical Notes 04-12-2021 to 12-27-2024 Note Date & Type Note Facility 12-27-2024 Note Patient: Diana castro Procedure Information Date/Time: 12/27/24 0830 Procedures: Loop recorder removal - PC APPROVED Loop insertion Location: [facility] FINDER HOLDING ROOM / [facility] VASCULAR LAB (Cath) Providers: Curtis Martinez MD Clinical information reviewed: Allergies Meds OB Status Physical Exam Airway Mallampati: II TM distance: >3 FB Neck ROM: full Cardiovascular Dental Pulmonary Neurological Abdominal Anesthesia Plan ASA 3 CSE Anesthetic plan and risks discussed with patient. Use of blood products discussed with patient who. Additional Equipment Requests [facility] 10-26-2024 Note holli [facility] 10-26-2024 Note Patient here for com plaints of hypotension, dizziness. Patient denies chest pain, SOB, leg swelling. Patient states she feels really good expect for the dizzy spells. Review of Systems Musculoskeletal: Positive for joint pain. Neurological: Positive for dizziness and headaches. [facility] 10-26-2024 Note Cardiovascular Medic [facility] Clinic SUBJECTIVE Chief Complaint Patient [...] trended upwards is a since seen in [place] [facility] 04/28/2023 and was diagnosed with vertigo [...] atrial flutter s (more content not included)... [facility] 09-12-2024 Note OR Cardiology Consul t Note Reason for visit: [...] trended upwards is a since seen in [place] [facility] 04/28/2023 and was diagnosed with vertigo [...] Not on file (more content not included)... [facility] 04-13-2024 Note Cardiovascular Medic ine [place] [facility] SUBJECTIVE Chief Complaint Patient presents with [...] trended upwards is a since seen in [facility] 04/28/2023 and was diagnosed with [...] disease (CMS/HCC) C (more content not included)... [facility] 04-13-2024 Note Patient here for 6 [...] All other systems reviewed and are negative. [facility] 04-04-2024 Note General Surgery Offi ce/Clinic [...] Diverticulosis Ep (more content not included)... [facility] Comment on above: Result Comment: [...] authenticated by: AUDREY BO Date: 2022-11-17 12:14 [facility] 04-12-2021 Note MR#: [id number] I [facility] Pt. Name: Diana Alvarez Admitted: 04/10/2021 Discharged: 04/11/2021 Date of : 1970 Physician: Albert Wick MD DISCHARGE SUMMARY PRIMARY DIAGNOSIS: New-onset atrial flutter with RVR. SECONDARY DIAGNOSES: 1. Pulmonary hypertension. 2. COPD. 3. Diabetes. HISTORY OF PRESENT ILLNESS: This patient is a 50-year-old female with past medical history of COPD, hypertension, and diabetes, who was sent from [facility] due to atrial flutter with RVR due to COPD exacerbation. The patient was initially treated with IV Cardizem, however, it was changed to p.o. prior to transfer. The patient was also given loading dose digoxin. The patient was transferred to [facility] for cardioversion. HOSPITAL COURSE: 1. New-onset [...] Wick MD Date Trans: 04/12/2021 03:25 P/marixa [id number] cc: Phillip Ann M.D. [address] [facility] [address] [facility] Evaluation + Plan note No [...] and content) DATE CREATED AUTHOR 09/10/2021 [facility] DATE CREATED AUTHOR AUTHOR'S ORGANIZ ATION 12/24/2021 [facility] DATE CREATED AUTHOR AUTHOR'S ORGANIZ ATION 11/20/2022 [facility] DATE CREATED AUTHOR AUTHOR'S ORGANIZ ATION 05/01/2024 [facility] DATE CREATED AUTHOR AUTHOR'S ORGANIZ ATION 03/09/2025 [facility] Patient Care team informatio n (unrecognized section and content) Personnel Name: Phillip Ann MD Address: Address: [address] [place] [address] Personnel Name: Phillip Ann MD Address: Address: [address] [place] [address] FOR RECORDS PERTAINING TO PATIENTS WHO ARE [...] BE BASED ON THE PRIMARY CLINICAL RECORDS. [place] [facility]. provides no warranty or guarantee of the accuracy or completeness of information in this document.
[2025-04-22 21:28] VITALS: BP 100/58; PULSE 73; TEMP 37.1; O2SAT 99; BMI 24.3
--- NOTE | 2025-04-22 21:56 | ED.GENADUL1 ---
HPI HPI - General Adult General Chief complaint: Extremity Problem, Nontraumatic Stated complaint: lower extremity problem Time Seen by Provider: 04/22/25 21:54 Source: patient Mode of arrival: walk-in Limitations: no limitations History of Present Illness HPI narrative: 54-year-old female presents for pain to her right great toe which she has had for 5 days. No injury and she believes it is a gout attack. She stopped taking her allopurinol appropriately. The pain is moderate to severe and continuous. Related Data Home Medications ?Medication ?Instructions ?Recorded ?Confirmed albuterol sulfate 90 mcg/actuation 2 puff inhalation Q4H PRN wheezing 04/18/23 10/28/24 aerosol inhaler (Ventolin HFA) apixaban 5 mg tablet (Eliquis) 5 mg PO BID 04/18/23 10/28/24 ferrous sulfate 325 mg (65 mg 325 mg PO BID 04/18/23 10/28/24 iron) tablet furosemide 40 mg tablet 20 mg PO DAILY 04/18/23 10/28/24 isosorbide mononitrate 30 mg 30 mg PO DAILY 04/18/23 10/28/24 tablet,extended release 24 hr Held on 10/28/24. 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 metformin 500 mg tablet 500 mg PO DAILY 04/18/23 10/28/24 pantoprazole 40 mg tablet,delayed 40 mg PO DAILY 04/18/23 10/28/24 release potassium chloride 20 mEq 10 meq PO BID 04/18/23 10/28/24 tablet,extended release rosuvastatin 5 mg tablet 5 mg PO DAILY 04/18/23 10/28/24 metoprolol succinate 25 mg 50 mg PO DAILY 04/28/23 10/28/24 tablet,extended release 24 hr cholecalciferol (vitamin D3) 50 50 mcg PO DAILY 11/18/23 10/28/24 mcg (2,000 unit) capsule lisinopril 5 mg tablet 20 mg PO DAILY 01/28/24 10/28/24 allopurinol 100 mg tablet 100 mg PO DAILY 04/05/24 10/28/24 ropinirole 0.5 mg tablet 0.5 mg PO DAILY 04/05/24 10/28/24 colchicine 0.6 mg tablet 0.6 mg PO DAILY PRN gout 04/13/24 10/28/24 semaglutide 2 mg/dose (8 mg/3 mL) 2 mg subcut DAILY 04/13/24 10/28/24 subcutaneous pen injector (Ozempic) Previous Rx's ?Medication ?Instructions ?Recorded acetaminophen 325 mg capsule 650 mg (2 x 325 mg) PO .q8 PRN 04/18/23 (Tylenol) pain #20 caps hydrocodone 5 mg-acetaminophen 325 1 tab PO Q6H PRN pain 5 days #20 10/28/24 mg tablet tabs prednisone 10 mg tablet See Rx Instructions .Route 10/28/24 .COMPLEX #30 tabs oxycodone-acetaminophen 5 mg-325 1 tab PO Q6H PRN pain 5 days #20 04/22/25 mg tablet (Percocet) tabs Allergies Allergy/AdvReac Type Severity Reaction Status Date / Time morphine Allergy Intermediate Palpitation Verified 04/22/25 21:28 s Opioid HPI Opioid Management Most Recent Opioid Data: Last Pain Scale 9 Today, 21:28 Review of Systems ROS Narrative A ten point review of systems is negative except as noted above. [facility] Medical History (Updated 04/22/25 @ 21:55 by eGrry Rocha MD) Pulmonary hypertension ?I27.20 - Pulmonary hypertension, unspecified (ICD-10) Pericardial effusion ?I31.39 - Other pericardial effusion (noninflammatory) (ICD-10) Paroxysmal atrial fibrillation ?I48.0 - Paroxysmal atrial fibrillation (ICD-10) Nausea ?R11.0 - Nausea (ICD-10) Mild aortic stenosis ?I35.0 - Nonrheumatic aortic (valve) stenosis (ICD-10) Insomnia ?G47.00 - Insomnia, unspecified (ICD-10) Irritable bowel syndrome ?K58.9 - Irritable bowel syndrome without diarrhea (ICD-10) Hypertriglyceridemia ?E78.1 - Pure hyperglyceridemia (ICD-10) Hypercholesterolemia ?E78.00 - Pure hypercholesterolemia, unspecified (ICD-10) Hypertension ?I10 - Essential (primary) hypertension (ICD-10) Fibrocystic breast disease ?N60.19 - Diffuse cystic mastopathy of unspecified breast (ICD-10) Epigastric pain ?R10.13 - Epigastric pain (ICD-10) Diverticulosis ?K57.90 - Diverticulosis of intestine, part unspecified, without perforation or abscess without bleeding (ICD-10) Cystic kidney disease ?Q61.9 - Cystic kidney disease, unspecified (ICD-10) Chronic diastolic heart failure ?I50.32 - Chronic diastolic (congestive) heart failure (ICD-10) Cholelithiasis ?K80.20 - Calculus of gallbladder without cholecystitis without obstruction (ICD-10) Cervical disc disease ?M50.90 - Cervical disc disorder, unspecified, unspecified cervical region (ICD-10) Abdominal pain ?R10.9 - Unspecified abdominal pain (ICD-10) Abdominal bloating ?R14.0 - Abdominal distension (gaseous) (ICD-10) Back pain ?M54.9 - Dorsalgia, unspecified (ICD-10) Arthritis ?M19.90 - Unspecified osteoarthritis, unspecified site (ICD-10) Anemia ?D64.9 - Anemia, unspecified (ICD-10) Depression ?F32.A - Depression, unspecified (ICD-10) Panic attacks ?F41.0 - Panic disorder [episodic paroxysmal anxiety] (ICD-10) RUQ pain ?R10.11 - Right upper quadrant pain (ICD-10) Sleep apnea ?G47.30 - Sleep apnea, unspecified (ICD-10) Chronic obstructive pulmonary disease ?J44.9 - Chronic obstructive pulmonary disease, unspecified (ICD-10) Asthma ?J45.909 - Unspecified asthma, uncomplicated (ICD-10) COVID-19 ?U07.1 - COVID-19 (ICD-10) Positive colorectal cancer screening using Cologuard test ?R19.5 - Other fecal abnormalities (ICD-10) Dyspnea on exertion ?R06.09 - Other forms of dyspnea (ICD-10) Extremity edema ?R60.0 - Localized edema (ICD-10) Congestive heart failure (CHF) ?I50.9 - Heart failure, unspecified (ICD-10) Pericarditis ?I31.9 - Disease of pericardium, unspecified (ICD-10) Atrial flutter ?I48.92 - Unspecified atrial flutter (ICD-10) Atrial fibrillation ?I48.91 - Unspecified atrial fibrillation (ICD-10) Diabetes ?E11.9 - Type 2 diabetes mellitus without complications (ICD-10) Gout ?M10.9 - Gout, unspecified (ICD-10) Nasal congestion ?R09.81 - Nasal congestion (ICD-10) Breast cyst ?N60.09 - Solitary cyst of unspecified breast (ICD-10) Implantable loop recorder present ?Z95.818 - Presence of other cardiac implants and grafts (ICD-10) Surgical History (Updated 04/13/24 @ 09:03 by Martina Muñiz NP) H/O removal of cyst ?Z98.890 - Other specified postprocedural states (ICD-10) History of colonoscopy ?Z98.890 - Other specified postprocedural states (ICD-10) History of tubal ligation ?Z98.51 - Tubal ligation status (ICD-10) History of cardiac radiofrequency ablation ?Z98.890 - Other specified postprocedural states (ICD-10) History of section ?Z98.891 - History of uterine scar from previous surgery (ICD-10) Family History (Updated 04/13/24 @ 08:57 by Martina Muñiz NP) Other Family history of breast cancer Family history of diabetes mellitus Family history of heart disease Family history of hypertension Family history of myocardial infarction Family history of renal failure Family history of stroke Social History (Updated 04/13/24 @ 08:47 by Martina Muñiz NP) Within the past year, how often did you have a drink containing alcohol: monthly or less Smoking status: Former smoker Non-prescribed substance use: denies use 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 General:The patient appears well and in no apparent distress.Patient is resting comfortably on cart. Skin:Warm, dry, no pallor noted.There is no rash noted. Head:Normocephalic, atraumatic Eye: Normal conjunctiva, no drainage Ears, Nose, Mouth, and Throat: oral mucosa is moist. Nares patent. Cardiovascular:Regular Rate and Rhythm Respiratory:Patient is in no distress, no accessory muscle use Back:non-tender GI: Soft and nontender Musculoskeletal: Right foot first metatarsal joint is erythematous and minimally swollen. It is tender to touch. Neurological:A&O, normal speech Psychiatric:Cooperative Constitutional Vital Signs, click to edit/add: Last Vital Signs Temp 98.7 F 04/22/25 21:28 Pulse 73 04/22/25 21:28 Resp 12 04/22/25 21:28 BP 100/58 04/22/25 21:28 Pulse Ox 99 04/22/25 21:28 O2 Del Method Room Air 04/22/25 21:28 Course Vital Signs Vital signs: Vital Signs Temperature 98.7 F 04/22/25 21:28 Pulse Rate 73 04/22/25 21:28 Respiratory Rate 12 04/22/25 21:28 Blood Pressure 100/58 04/22/25 21:28 Pulse Oximetry 99 04/22/25 21:28 Oxygen Delivery Method Room Air 04/22/25 21:28 Temperature 98.7 F 04/22/25 21:28 Pulse Rate 73 04/22/25 21:28 Respiratory Rate 12 04/22/25 21:28 Blood Pressure 100/58 04/22/25 21:28 Pulse Oximetry 99 04/22/25 21:28 Oxygen Delivery Method Room Air 04/22/25 21:28 Medical Decision Making MDM Narrative Medical decision making narrative: My clinical impression is that she has gout. She was given IM Dilaudid and prescribed Percocet. She cannot take anti-inflammatories because she is on Eliquis. Treatment diagnosis and follow-up were discussed with the patient. Differential Diagnosis Differential Diagnosis: Gout, cellulitis Discharge Plan Discharge Chief Complaint: Extremity Problem, Nontraumatic Clinical Impression: Gout Patient Disposition: Home, Self-Care Time of Disposition Decision: 21:55 Condition: Good Mode of Transportation: Private Vehicle Prescriptions / Home Meds: New oxycodone-acetaminophen [Percocet] 5-325 mg tablet 1 tab PO Q6H PRN (Reason: pain) 5 Days Qty: 20 0RF No Action albuterol sulfate [Ventolin HFA] 90 mcg/actuation HFA aerosol inhaler 2 puff INHALATION Q4H PRN (Reason: wheezing) Eliquis 5 mg tablet 5 mg PO BID ferrous sulfate 325 mg (65 mg iron) tablet 325 mg PO BID furosemide 40 mg tablet 20 mg PO DAILY isosorbide mononitrate 30 mg tablet extended release 24 hr 30 mg PO DAILY metformin 500 mg tablet 500 mg PO DAILY pantoprazole 40 mg tablet,delayed release (DR/EC) 40 mg PO DAILY potassium chloride 20 mEq tablet extended release 10 meq PO BID rosuvastatin 5 mg tablet 5 mg PO DAILY acetaminophen [Tylenol] 325 mg capsule 650 mg PO .q8 PRN (Reason: pain) Qty: 20 0RF metoprolol succinate 25 mg tablet extended release 24 hr 50 mg PO DAILY lisinopril 5 mg tablet 20 mg PO DAILY hydrocodone-acetaminophen 5-325 mg tablet 1 tab PO Q6H PRN (Reason: pain) 5 Days Qty: 20 0RF prednisone 10 mg tablet See Rx Instructions .ROUTE .COMPLEX Qty: 30 0RF Rx Instructions: 4 by mouth daily for three days then 3 by mouth daily for three days then 2 by mouth daily for three days then 1 by mouth daily for three days cholecalciferol (vitamin D3) 50 mcg (2,000 unit) capsule 50 mcg PO DAILY Ozempic 2 mg/dose (8 mg/3 mL) pen injector 2 mg SUBCUT DAILY colchicine 0.6 mg tablet 0.6 mg PO DAILY PRN (Reason: gout) ropinirole 0.5 mg tablet 0.5 mg PO DAILY allopurinol 100 mg tablet 100 mg PO DAILY Print Language: Ghanaian Instructions: Gout (ED) Referrals: Xavi Ann MD [Primary Care Provider, Family Practice] - 1 week
[2025-04-22] MEDS: HYDROMORPHONE HCL 1 MG/ML CARTRIDGE IM (22:12)
== END 2025-04-22 22:23 | disposition home or self-care (01) ==
PROVIDERS: Emergency Provider Emergency Medicine; PCP Family Medicine
DX: M10.9 Gout, unspecified (principal); Z79.01 Long term (current) use of anticoagulants; Z87.891 Personal history of nicotine dependence
CPT/HCPCS: 96372; 99284; J1171

== ENCOUNTER 2025-06-24 18:31 | Emergency (ER) | payer OTHER, SELFPAY ==
[2025-06-24 18:42] VITALS: BP 122/59; PULSE 72; TEMP 36.8; O2SAT 98; BMI 32.5
--- NOTE | 2025-06-24 18:49 | XR_ITS ---
The [address] [address] Patient Name: LEIGHANN TALAMANTES MRN: [id number] date: 1970 Sex: F Assigned Patient Location: ED.MAIN Current Patient Location: Accession/Order Number: [id number] Exam Date: 06/24/2025 19:31 Report Date: 06/25/2025 08:14 At the request of: BREANNA WINN Procedure: XR elbow RT min 3V CLINICAL DATA: Patient fell and has pain at the right upper extremity. RIGHT FOREARM - 2 views COMPARISON: None AP and lateral views of the right forearm were obtained. There is no evidence of fracture, dislocation or bony destruction. There are no focal soft tissue abnormalities. XR/XR elbow RT min 3V IMPRESSION: NO ACUTE BONY INJURY. RIGHT ELBOW - 3 views COMPARISON: None AP, lateral and oblique views were obtained. No acute fracture or dislocation is identified. There is minimal spurring at the trochlear notch and humeral epicondyles. There is also tiny enthesophyte at the insertion of the triceps tendon. There is no elbow effusion or soft tissue swelling. IMPRESSION: MINOR DEGENERATIVE CHANGES. NO ACUTE BONY INJURY. Impression dictated by: Megan Nation M.D. 06/25/2025 8:14 AM [facility]ictation [facility] authentic[facility] by: [id number] Y Date: 06/25/2025 08:14
--- NOTE | 2025-06-24 18:49 | XR_ITS ---
The [address] [address] Patient Name: LEIGHANN TALAMANTES MRN: [id number] date: 1970 Sex: F Assigned Patient Location: ED.MAIN Current Patient Location: Accession/Order Number: [id number] Exam Date: 06/24/2025 19:31 Report Date: 06/25/2025 07:34 At the request of: BREANNA WINN Procedure: XR humerus RT CLINICAL DATA: Patient fell and has pain at the right upper extremity RIGHT SHOULDER - 3 views COMPARISON: None AP, Y and Grashey views were obtained. There is no evidence of fracture or dislocation. Mild degenerative change is visualized at the acromioclavicular joint and greater tuberosity. There are no significant soft tissue abnormalities. XR/XR humerus RT IMPRESSION: NO ACUTE BONY INJURY. RIGHT HUMERUS - 2 views COMPARISON: None AP and lateral views were obtained. There is no acute fracture or dislocation. No soft tissue abnormalities are visualized. IMPRESSION: NO ACUTE BONY INJURY. Impression dictated by: Megan Nation M.D. 06/25/2025 7:34 AM Dictation Location: [place] [address] Electronically authenticated by: [id number] Y Date: 06/25/2025 07:34
--- NOTE | 2025-06-24 18:49 | XR_ITS ---
The [address] [address] Patient Name: LEIGHANN TALAMANTES MRN: [id number] date: 1970 Sex: F Assigned Patient Location: ED.MAIN Current Patient Location: Accession/Order Number: [id number] Exam Date: 06/24/2025 19:31 Report Date: 06/25/2025 08:14 At the request of: BREANNA WINN Procedure: XR elbow RT min 3V CLINICAL DATA: Patient fell and has pain at the right upper extremity. RIGHT FOREARM - 2 views COMPARISON: None AP and lateral views of the right forearm were obtained. There is no evidence of fracture, dislocation or bony destruction. There are no focal soft tissue abnormalities. XR/XR forearm RT 2V IMPRESSION: NO ACUTE BONY INJURY. RIGHT ELBOW - 3 views COMPARISON: None AP, lateral and oblique views were obtained. No acute fracture or dislocation is identified. There is minimal spurring at the trochlear notch and humeral epicondyles. There is also tiny enthesophyte at the insertion of the triceps tendon. There is no elbow effusion or soft tissue swelling. IMPRESSION: MINOR DEGENERATIVE CHANGES. NO ACUTE BONY INJURY. Impression dictated by: Megan Nation M.D. 06/25/2025 8:14 AM Dictation Location: [place] [address] Electronically authenticated by: [id number] Y Date: 06/25/2025 08:14
--- NOTE | 2025-06-24 18:49 | XR_ITS ---
The [address] [address] Patient Name: LEIGHANN TALAMANTES MRN: [id number] date: 1970 Sex: F Assigned Patient Location: ED.MAIN Current Patient Location: Accession/Order Number: [id number] Exam Date: 06/24/2025 19:31 Report Date: 06/25/2025 07:34 At the request of: BREANNA WINN Procedure: XR humerus RT CLINICAL DATA: Patient fell and has pain at the right upper extremity RIGHT SHOULDER - 3 views COMPARISON: None AP, Y and Grashey views were obtained. There is no evidence of fracture or dislocation. Mild degenerative change is visualized at the acromioclavicular joint and greater tuberosity. There are no significant soft tissue abnormalities. XR/XR shoulder RT min 2V IMPRESSION: NO ACUTE BONY INJURY. RIGHT HUMERUS - 2 views COMPARISON: None AP and lateral views were obtained. There is no acute fracture or dislocation. No soft tissue abnormalities are visualized. IMPRESSION: NO ACUTE BONY INJURY. Impression dictated by: Megan Nation M.D. 06/25/2025 7:34 AM Dictation Location: [place] [address] Electronically authenticated by: [id number] Y Date: 06/25/2025 07:34
--- NOTE | 2025-06-24 18:50 | PC.NURSE ---
pt did not want ice pack at this time
--- NOTE | 2025-06-24 18:59 | ED.GENADUL1 ---
HPI HPI - General Adult General Chief complaint: Extremity Injury, Upper Stated complaint: FALL Time Seen by Provider: 06/24/25 18:48 Source: patient and family Mode of arrival: walk-in Limitations: no limitations History of Present Illness HPI narrative: 54-year-old female presents here with a chief complaint of right arm and shoulder pain pain.. Patient states she slipped and fell on the ice approximately 2-3 o'clock this afternoon. She took Tylenol without any relief of her pain. She is able to fully extend rotate and elevate her arm but complains of pain to the proximal humerus shoulder and elbow region. There is no acute deformity bruising or swelling. She denies striking her head. She states she recently was taken off Eliquis approximately 1 month ago but did not strike her head. Related Data Home Medications ?Medication ?Instructions ?Recorded ?Confirmed albuterol sulfate 90 mcg/actuation 2 puff inhalation Q4H PRN wheezing 04/18/23 10/28/24 aerosol inhaler (Ventolin HFA) apixaban 5 mg tablet (Eliquis) 5 mg PO BID 04/18/23 10/28/24 ferrous sulfate 325 mg (65 mg 325 mg PO BID 04/18/23 10/28/24 iron) tablet furosemide 40 mg tablet 20 mg PO DAILY 04/18/23 10/28/24 isosorbide mononitrate 30 mg 30 mg PO DAILY 04/18/23 10/28/24 tablet,extended release 24 hr Held on 10/28/24. 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 metformin 500 mg tablet 500 mg PO DAILY 04/18/23 10/28/24 pantoprazole 40 mg tablet,delayed 40 mg PO DAILY 04/18/23 10/28/24 release potassium chloride 20 mEq 10 meq PO BID 04/18/23 10/28/24 tablet,extended release rosuvastatin 5 mg tablet 5 mg PO DAILY 04/18/23 10/28/24 metoprolol succinate 25 mg 50 mg PO DAILY 04/28/23 10/28/24 tablet,extended release 24 hr cholecalciferol (vitamin D3) 50 50 mcg PO DAILY 11/18/23 10/28/24 mcg (2,000 unit) capsule lisinopril 5 mg tablet 20 mg PO DAILY 01/28/24 10/28/24 allopurinol 100 mg tablet 100 mg PO DAILY 04/05/24 10/28/24 ropinirole 0.5 mg tablet 0.5 mg PO DAILY 04/05/24 10/28/24 colchicine 0.6 mg tablet 0.6 mg PO DAILY PRN gout 04/13/24 10/28/24 semaglutide 2 mg/dose (8 mg/3 mL) 2 mg subcut DAILY 04/13/24 10/28/24 subcutaneous pen injector (Ozempic) Previous Rx's ?Medication ?Instructions ?Recorded acetaminophen 325 mg capsule 650 mg (2 x 325 mg) PO .q8 PRN 04/18/23 (Tylenol) pain #20 caps hydrocodone 5 mg-acetaminophen 325 1 tab PO Q6H PRN pain 5 days #20 10/28/24 mg tablet tabs prednisone 10 mg tablet See Rx Instructions .Route 10/28/24 .COMPLEX #30 tabs oxycodone-acetaminophen 5 mg-325 1 tab PO Q6H PRN pain 5 days #20 04/22/25 mg tablet (Percocet) tabs Allergies Allergy/AdvReac Type Severity Reaction Status Date / Time morphine Allergy Intermediate Palpitation Verified 06/24/25 18:42 s Opioid HPI Opioid Management Most Recent Opioid Data: Last Pain Scale 9 04/22/25, 21:28 Review of Systems ROS Status of ROS 10 or more systems reviewed and unremarkable except as noted in history and below [facility] Medical History (Updated 06/24/25 @ 20:04 by Haven Stoll) Pulmonary hypertension ?I27.20 - Pulmonary hypertension, unspecified (ICD-10) Pericardial effusion ?I31.39 - Other pericardial effusion (noninflammatory) (ICD-10) Paroxysmal atrial fibrillation ?I48.0 - Paroxysmal atrial fibrillation (ICD-10) Nausea ?R11.0 - Nausea (ICD-10) Mild aortic stenosis ?I35.0 - Nonrheumatic aortic (valve) stenosis (ICD-10) Insomnia ?G47.00 - Insomnia, unspecified (ICD-10) Irritable bowel syndrome ?K58.9 - Irritable bowel syndrome without diarrhea (ICD-10) Hypertriglyceridemia ?E78.1 - Pure hyperglyceridemia (ICD-10) Hypercholesterolemia ?E78.00 - Pure hypercholesterolemia, unspecified (ICD-10) Hypertension ?I10 - Essential (primary) hypertension (ICD-10) Fibrocystic breast disease ?N60.19 - Diffuse cystic mastopathy of unspecified breast (ICD-10) Epigastric pain ?R10.13 - Epigastric pain (ICD-10) Diverticulosis ?K57.90 - Diverticulosis of intestine, part unspecified, without perforation or abscess without bleeding (ICD-10) Cystic kidney disease ?Q61.9 - Cystic kidney disease, unspecified (ICD-10) Chronic diastolic heart failure ?I50.32 - Chronic diastolic (congestive) heart failure (ICD-10) Cholelithiasis ?K80.20 - Calculus of gallbladder without cholecystitis without obstruction (ICD-10) Cervical disc disease ?M50.90 - Cervical disc disorder, unspecified, unspecified cervical region (ICD-10) Abdominal pain ?R10.9 - Unspecified abdominal pain (ICD-10) Abdominal bloating ?R14.0 - Abdominal distension (gaseous) (ICD-10) Back pain ?M54.9 - Dorsalgia, unspecified (ICD-10) Arthritis ?M19.90 - Unspecified osteoarthritis, unspecified site (ICD-10) Anemia ?D64.9 - Anemia, unspecified (ICD-10) Depression ?F32.A - Depression, unspecified (ICD-10) Panic attacks ?F41.0 - Panic disorder [episodic paroxysmal anxiety] (ICD-10) RUQ pain ?R10.11 - Right upper quadrant pain (ICD-10) Sleep apnea ?G47.30 - Sleep apnea, unspecified (ICD-10) Chronic obstructive pulmonary disease ?J44.9 - Chronic obstructive pulmonary disease, unspecified (ICD-10) Asthma ?J45.909 - Unspecified asthma, uncomplicated (ICD-10) COVID-19 ?U07.1 - COVID-19 (ICD-10) Positive colorectal cancer screening using Cologuard test ?R19.5 - Other fecal abnormalities (ICD-10) Dyspnea on exertion ?R06.09 - Other forms of dyspnea (ICD-10) Extremity edema ?R60.0 - Localized edema (ICD-10) Congestive heart failure (CHF) ?I50.9 - Heart failure, unspecified (ICD-10) Pericarditis ?I31.9 - Disease of pericardium, unspecified (ICD-10) Atrial flutter ?I48.92 - Unspecified atrial flutter (ICD-10) Atrial fibrillation ?I48.91 - Unspecified atrial fibrillation (ICD-10) Diabetes ?E11.9 - Type 2 diabetes mellitus without complications (ICD-10) Gout ?M10.9 - Gout, unspecified (ICD-10) Nasal congestion ?R09.81 - Nasal congestion (ICD-10) Breast cyst ?N60.09 - Solitary cyst of unspecified breast (ICD-10) Implantable loop recorder present ?Z95.818 - Presence of other cardiac implants and grafts (ICD-10) Surgical History (Updated 04/13/24 @ 09:03 by Martina Muñiz NP) H/O removal of cyst ?Z98.890 - Other specified postprocedural states (ICD-10) History of colonoscopy ?Z98.890 - Other specified postprocedural states (ICD-10) History of tubal ligation ?Z98.51 - Tubal ligation status (ICD-10) History of cardiac radiofrequency ablation ?Z98.890 - Other specified postprocedural states (ICD-10) History of section ?Z98.891 - History of uterine scar from previous surgery (ICD-10) Family History (Updated 04/13/24 @ 08:57 by Martina Muñiz NP) Other Family history of breast cancer Family history of diabetes mellitus Family history of heart disease Family history of hypertension Family history of myocardial infarction Family history of renal failure Family history of stroke Social History (Updated 04/13/24 @ 08:47 by Martina Muñiz NP) Within the past year, how often did you have a drink containing alcohol: monthly or less Smoking status: Former smoker Non-prescribed substance use: denies use 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 General: The patient appears well and in no apparent distress. Patient is resting comfortably on cart. Skin: Warm, dry, no pallor noted. There is no rash noted. Head: Normocephalic, atraumatic Eye: Normal conjunctiva, no drainage, EOMI. PERRL Ears, Nose, Mouth, and Throat: oral mucosa is moist. Nares patent. Mouth without vesicles. Ear canals patent. Tm's without Erythema Musculoskeletal: right shoulder pain with range of motion, no obvious deformity or dislocation, tenderness to elbow, no bruising or swelling The patient has no evidence of calf tenderness, no pitting edema, symmetrical pulses noted bilaterally Neurological: A&O x4, normal speech Psychiatric: Cooperative Constitutional Vital Signs, click to edit/add: Last Vital Signs Temp 98.3 F 06/24/25 18:42 Pulse 72 06/24/25 18:42 Resp 16 06/24/25 18:42 BP 122/59 06/24/25 18:42 Pulse Ox 98 06/24/25 18:42 O2 Del Method Room Air 06/24/25 18:42 Course Vital Signs Vital signs: Vital Signs Temperature 98.3 F 06/24/25 18:42 Pulse Rate 72 06/24/25 18:42 Respiratory Rate 16 06/24/25 18:42 Blood Pressure 122/59 06/24/25 18:42 Pulse Oximetry 98 06/24/25 18:42 Oxygen Delivery Method Room Air 06/24/25 18:42 Temperature 98.3 F 06/24/25 18:42 Pulse Rate 72 06/24/25 18:42 Respiratory Rate 16 06/24/25 18:42 Blood Pressure 122/59 06/24/25 18:42 Pulse Oximetry 98 06/24/25 18:42 Oxygen Delivery Method Room Air 06/24/25 18:42 Medical Decision Making MDM Narrative Medical decision making narrative: 54-year-old female presents here with a chief complaint of right arm and shoulder pain pain.. Patient states she slipped and fell on the ice approximately 2-3 o'clock this afternoon. She took Tylenol without any relief of her pain. She is able to fully extend rotate and elevate her arm but complains of pain to the proximal humerus shoulder and elbow region. There is no acute deformity bruising or swelling. She denies striking her head. She states she recently was taken off Eliquis approximately 1 month ago but did not strike her head. 54-year-old female presents to the emergency room after a fall she sustained several hours prior to coming here to the emergency room. She complained of right shoulder humerus and elbow pain. X-rays read by myself preliminary is negative other than a small avulsion of the olecranon process of the ulna of the right elbow. Small avulsion chip noted. Patient was given a sling and discharged home with prescription for [place] and to follow-up with orthopedics. Patient was shown image of the x-rays. Patient agrees with plan of care and discharge to home. Patient told to rest ice elevate and follow-up in the morning with orthopedics to make a follow-up appointment. Differential Diagnosis Differential Diagnosis: shoulder sprain, fracture, humerus fracture Medical Records Medical records reviewed: Yes I reviewed the patient's medical records Discharge Plan Discharge Chief Complaint: Extremity Injury, Upper Clinical Impression: Fracture of right elbow, Shoulder sprain Patient Disposition: Home, Self-Care Time of Disposition Decision: 20:04 Condition: Good Prescriptions / Home Meds: No Action albuterol sulfate [Ventolin HFA] 90 mcg/actuation HFA aerosol inhaler 2 puff INHALATION Q4H PRN (Reason: wheezing) Eliquis 5 mg tablet 5 mg PO BID ferrous sulfate 325 mg (65 mg iron) tablet 325 mg PO BID furosemide 40 mg tablet 20 mg PO DAILY isosorbide mononitrate 30 mg tablet extended release 24 hr 30 mg PO DAILY metformin 500 mg tablet 500 mg PO DAILY pantoprazole 40 mg tablet,delayed release (DR/EC) 40 mg PO DAILY potassium chloride 20 mEq tablet extended release 10 meq PO BID rosuvastatin 5 mg tablet 5 mg PO DAILY acetaminophen [Tylenol] 325 mg capsule 650 mg PO .q8 PRN (Reason: pain) Qty: 20 0RF metoprolol succinate 25 mg tablet extended release 24 hr 50 mg PO DAILY lisinopril 5 mg tablet 20 mg PO DAILY hydrocodone-acetaminophen 5-325 mg tablet 1 tab PO Q6H PRN (Reason: pain) 5 Days Qty: 20 0RF prednisone 10 mg tablet See Rx Instructions .ROUTE .COMPLEX Qty: 30 0RF Rx Instructions: 4 by mouth daily for three days then 3 by mouth daily for three days then 2 by mouth daily for three days then 1 by mouth daily for three days cholecalciferol (vitamin D3) 50 mcg (2,000 unit) capsule 50 mcg PO DAILY Ozempic 2 mg/dose (8 mg/3 mL) pen injector 2 mg SUBCUT DAILY colchicine 0.6 mg tablet 0.6 mg PO DAILY PRN (Reason: gout) ropinirole 0.5 mg tablet 0.5 mg PO DAILY allopurinol 100 mg tablet 100 mg PO DAILY oxycodone-acetaminophen [Percocet] 5-325 mg tablet 1 tab PO Q6H PRN (Reason: pain) 5 Days Qty: 20 0RF Print Language: Finnish Instructions: Elbow Fracture (ED), Shoulder Sprain (ED), P.R.I.C.E. Treatment (ED) Referrals: Xavi Ann MD [Primary Care Provider, Family Practice] - 1 week Florencio Long MD [Physician, Orthopedics] - 1 week Referral Note: call for follow up appointment
--- OUTSIDE RECORDS SUMMARY | 2025-06-24 19:28 | XMS_ITS | Clinical Summary ---
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 Name Role Phone Unavailable Primary Care Provider Unavailabl e Social History Tobacco UseTypesPacks/DayYears UsedDateSmoking Tobacco: Never Assessed CommentsUnknownSex and Gender InformationValueDate RecordedSex Assigned at Not on fileLegal EzmTvpdsk16/15/2023 8:22 PM EDTGender IdentityNot on fileSexual OrientationNot on file Last Filed Vital Signs Vital SignReadingTime TakenCommentsBlood Gzsfvczn743/70009/02/2022 12:00 PM EST Pulse--Temperature--Respiratory Rate--Oxygen Saturation--Inhaled Oxygen Concentration--Urgria70.2 kg (190 lb)09/02/2022 12:00 PM XYAOyuvqu154.5 cm (5' 2 )09/02/2022 12:00 PM ESTBody Mass Index34.75009/02/2022 12:00 PM EST Plan of Treatment Not on file
--- OUTSIDE RECORDS SUMMARY | 2025-06-24 19:28 | XMS_ITS | Clinical Summary ---
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 Name Role Phone Xavi Ann MD Primary Care Provider [phone] Allergies Active AllergyReactionsCriticalityNoted OncgMbawsaomSaercreb57/24/2023 Ekrcihfhogg50/18/2023 Medications MedicationSigDispense QuantityRefillsLast FilledStart DateEnd DateStatus pantoprazole (ProtoNix) 40 mg EC tablet Take 1 tablet by mouth in the morning.08/19/2021ctive ferrous sulfate 325 (65 Fe) MG tablet Take 1 tablet by mouth in the morning and at bedtime.07/27/2022ctive metFORMIN (Glucophage) 500 mg tablet Take 1 tablet by mouth in the morning and at bedtime.Active Ozempic 0.25 mg or 0.5 mg (2 mg/3 mL) pen injector INJECT 0.25 MG SUBCUTANEOUSLY ONCE A WEEK10/01/2023ctive rOPINIRole (Requip) 0.5 mg tablet TAKE 1 TABLET BY MOUTH EVERY DAY 1-3 HOURS BEFORE BEDTIME FOR 30 DAYS for 30 Active cholecalciferol, vitamin D3, 50 mcg (2,000 unit) capsule 1 capsule 1 (one) time each day at the same time.09/15/2023ctive allopurinol (Zyloprim) 100 mg tablet 1 (one) time each day at the same time.12/06/2023ctive albuterol 90 mcg/actuation inhaler INHALE 2 PUFFS BY MOUTH EVERY 4 HOURS NEEDED for ctive colchicine 0.6 mg tablet TAKE 1 TABLET AT ONSET - THEN REPEAT IN 4 HOURS IF NEEDED ONCE for 9008/ Active lisinopril 20 mg tablet Indications:Benign hypertensive cardiomyopathy with heart failure (CMS/HCC)Take 1 tablet (20 mg) by mouth once daily as directed. 90 tablet //6Active ezetimibe (Zetia) 10 mg tablet Indications:Mixed hyperlipidemiaTake 1 tablet (10 mg) by mouth once daily as directed. 90 tablet /6Active metoprolol succinate XL (Toprol-XL) 50 mg 24 hr tablet Indications:Benign hypertensive cardiomyopathy with heart failure (CMS/HCC), Atrial flutter, unspecified type (CMS/HCC),Paroxysmal atrial fibrillation (CMS/HCC)Take 1 tablet (50 mg) by mouth once daily as directed. Do not crush or chew. 90 tablet ctive rosuvastatin (Crestor) 5 mg tablet Indications:Mixed hyperlipidemiaTake 1 tablet (5 mg) by mouth at bedtime. 90 tablet 6Active potassium chloride CR (K-Tab) 20 mEq ER tablet Indications:HypokalemiaTAKE 1 TABLET BY MOUTH IN THE MORNING AND AT BEDTIME 180 tablet 304/5Active Additional Information Patient not taking.Reported on 05/15/2025 apixaban (Eliquis) 5 mg tablet Indications:Atrial flutter, unspecified type (CMS/HCC),Paroxysmal atrial fibrillation (CMS/HCC)Take 1 tablet (5 mg) by mouth two times daily. 60 tablet 1104//487233/6Active potassium chloride CR (Klor-Con) 10 mEq ER tablet Indications:HypokalemiaTAKE 1 TABLET (10 MEQ) BY MOUTH IN THE MORNING 90 tablet 107501/6Active furosemide (Lasix) 20 mg tablet Indications:Chronic diastolic heart failure (CMS/HCC)Take 1 tablet (20 mg) by mouth in the morning. Patient instructed to take every other day 30 tablet 111/5Active furosemide (Lasix) 20 mg tablet Indications:Chronic diastolic heart failure (CMS/HCC)Take 1 tablet (20 mg) by mouth every other day. 45 tablet 304//Discontinued(Reorder) Active Problems ProblemNoted DateDiagnosed DateAcquired hallux nmekku2705/15/2025ute bronchitis 05/15/20259135Wwypnh42/28/6618Jfopqdztaty87/28/2025Diverticular disease of colon 05/15/20255462Iwoybvzosclojwm30/28/2025Hiatal jndpmh2505/15/2025Hypertensive heart gddwqxc4905/15/2025Left shoulder pain05/15/20259844Bbsfzjcxh57/28/2025Pain in right foot05/15/20258375Yavcv79/28/2025Vitamin D iuyczoprgh88/28/2025arpal tunnel fyshmjvx93/24/2025ontact ahmrebsrtk94/24/5760Cmiwhtxf33/24/2025Paroxysmal atrial ymtqwawkfkfv81/10/2025bdominal kezutvcy45/24/2024holelithiasis 04/11/2024Generalized abdominal pain04/11/2024Nausea in adult04/11/2024Obesity due to excess bsbnadki00/24/2024ositive fecal occult blood test04/11/2024 Patellar allqmqiu85/MI 35.0-35.9,adult Cervical disc ydasrvc35hronic diastolic heart failure hronic obstructive pulmonary scdpieg31 Cystic kidney sjchozq393Depressioniabetes iverticulosisFibrocystic disease of ijidwd27outHistory of pericarditis IBS (irritable bowel syndrome)Insomnia Low back pain wpwiepbw30Migraines Mild aortic gwgfbinw21/12/589174/12/2023OSA (obstructive sleep apnea)AF (paroxysmal atrial fibrillation)01/27/2023 01/27/2023RUQ painure hxcjgcrwkmizwnmkbvlr98/12/2023 01/27/2023ulmonary HTNericardial psoevfyc60/12/2023 01/27/2023HTN (hypertension)hronic inrrvgtc42/24/2023 Tgxmkki8508/11/20224741Ymekryuirsvz06/24/2023isorder of ymcogbdhvqp61/24/2023Syncope 08/11/2022trial jiwrmhq2804/28/2021hest pain11/09/2018Tobacco user11/09/2018 Ekosyauxdlxt31/14/2013Essential dscpdzaafwaf11/07/7582Cphayecsxjtrxd98/07/2013 10/26/2023 Encounters DateTypeDepartmentCare LgmvBkioknwxrgr08/21/2025[facility]phone [facility] [address] [place] [id number] Maria L Pop MA 06/08/2025[facility] [address] [place] [address] Maria L Pop MA Chronic diastolic heart failure (CMS/HCC)06/08/2025[facility] [address] [place] [address] Maria L Pop MA Chronic diastolic heart failure (CMS/HCC)05/15/2025 9:45 AM EDTOffice Visit [facility] [address] [place] [address] Curtis Martinze MD S/P ablation of atrial flutter (Primary Dx)05/02/2025Orders Only [facility] [address] [place] [address] Xiao Torres MD 05/01/2025 9:45 AM EDTAncillary Procedure [facility] [address] [place] [address] Awareness of heartbeatsfrom Last 3 Months Family History Medical HistoryRelationNameCommentsCoronary artery diseaseFatherHeart attack FatherAneurysmMotherBreast cancerMotherStrokeMotherStrokeSisterRelationName StatusCommentsFatherAliveMotherDeceasedSisterDeceased Social History Tobacco UseTypesPacks/DayYears UsedDateSmoking Tobacco: FormerCigarettes Smokeless Tobacco: Never Tobacco Cessation:Counseling Given: Not Answered Alcohol UseStandard Drinks/WeekCommentsYes0 (1 standard drink = 0.6 oz pure alcohol)occasionalUT Safety & EnvironmentAnswerDate RecordedFear of Current or Ex-PartnerNot on file09/09/2023Emotionally AbusedNot on file09/09/2023hysically AbusedNot on file09/09/2023Sexually AbusedNot on file09/09/2023hysically or Sexually AbusedNot on file09/09/2023CommentsNoSex and Gender Information ValueDate RecordedSex Assigned at XkvilVezwjb04/28/2025 11:48 AM EDTLegal Sex Qmveba9401/14/2022 10:34 PM EDTGender RpagnwerWsfsjz78/28/2025 11:48 AM EDTSexual OrientationHeterosexual or Vpxzwsph89/28/2025 11:48 AM EDT Last Filed Vital Signs Vital SignReadingTime TakenCommentsBlood Gignpjvv808/7210 10:12 AM EDT Jzzas467505/15/2025 10:12 AM ZNMFyuzptwgkfh08.7 ??C (98 ??F)05/10/2020 11:33 AM EDTRespiratory Mldh283112/27/2024 9:15 AM EDTOxygen Kknlkcszsf92%05/15/2025 10:12 AM EDTInhaled Oxygen Concentration--Kezwhs23.2 kg (135 lb)05/15/2025 10:12 AM FYVHplfnk204.5 cm (5' 2 )05/15/2025 10:12 AM EDTBody Mass Index24.6910 10:12 AM EDT Plan of Treatment Health MaintenanceDue DateLast DoneCommentsCT Gkiujuvbenjv79/03/1969Colonoscopy 1968Colorectal Cancer Szuvzhhkg18/03/1969Diabetes: Hemoglobin A1C 1968FIT-DNA1968FIT1968FOBT1968 5612Ktybwxusfgcwe11/03/1969 Diabetes: Retinopathy Tqpmmavct58/03/1979Depression Cobgvccvk34/03/1981Diabetes: Urine Protein Xozwswmsd28/03/1988Hepatitis B Vaccines (1 of 3 - 19+ 3-dose series)10/20/1987Pneumococcal Vaccine: Pediatrics (0 to 5 Years) and At-Risk Patients (6 to 64 Years) (1 of 2 - PCV)10/20/1987Pap Smear1989Cervical Cancer Htjvcnbhw55/03/1999HPV/Nocicp8610/19/19983233Dyfkbfmeo01/03/2009Zoster Vaccines (1 of 2)2018COVID-19 Vaccine ( season)504/, 10/25/2020, 10/04/2020Influenza Vaccine (#1)2025dult Ajmhati9807/24/2030 07/24/2020HIB VaccinesAged OutNo longer eligible based on patient's age to complete this topicHPV VaccinesAged OutNo longer eligible based on patient's age to complete this topicIPV VaccinesAged OutNo longer eligible based on patient's age to complete this topicMeningococcal B VaccineAged OutNo longer eligible based on patient's age to complete this topicMeningococcal VaccineAged OutNo longer eligible based on patient's age to complete this topicRotavirus Vaccines Aged OutNo longer eligible based on patient's age to complete this topic Medical Devices ImplantedTypeAreaManufacturerDevice IdentifierShelf Expiration DateModel / Serial / [id number] Implanted:08/18/2021 (Quantity not on file) Explanted:12/27/2024 by Curtis Martinez MD (Quantity not on file)Implantable Loop [id number] / [id number] / Monitor,Cardiac,Lux,Dxii+[facility] - [id number] - [id number] Implanted:Qty: 1 on 12/27/2024 by Curtis Martinez [facility]Implant[facility] Loop RecorderLeft: Fred Wzmroxqbcg22/25/2026 [id number] / [id number] / Procedures Procedure NamePriorityDate/TimeAssociated DiagnosisCommentsCARDIAC DEVICE CHECK CHECK - PGRKRQWebknjo68/20/2025 9:29 AM EDT Awareness of heartbeats CARDIAC DEVICE CHECK - REMOTE - LOOP RECORDER (ILR)Jkjybxr6705/02/2025 12:00 AM EDTfrom Last 3 Months Results * CARDIAC DEVICE CHECK - REMOTE - LOOP RECORDER (ILR) (05/07/2025 9:29 AM EDT) Specimen (Source)Anatomical Location / LateralityCollection Method / Volume Collection TimeReceived Time Narrative Authorizing ProviderResult TypeResult StatusCurtis Martinez [facility] IMPLANTABLE CARDIAC DEVICE PROCEDURESFinal ResultPerforming OrganizationAddressCity/State/ZIP Code Phone Number CPACS * Cardiac device check - Remote loop recorder (ILR) (05/02/2025 12:00 AM EDT) Anatomical RegionLateralityModalityOtherSpecimen (Source)Anatomical Location / LateralityCollection Method / VolumeCollection TimeReceived Time05/02/2025 Narrative Authorizing ProviderResult TypeResult StatusXiao Torres [facility] IMPLANTABLE CARDIAC DEVICE PROCEDURESFinal Result from Last 3 Months Insurance Care Teams Team MemberRelationshipSpecialtyStart DateEnd Date Xavi Ann MD [address] [place] [address] PCP - General08/11/22
--- OUTSIDE RECORDS SUMMARY | 2025-06-24 19:28 | XMS_ITS | CCD ---
Author Organization [facility] Care Team Providers Care Data Warehouse Specialist Name Role Phone CASSY BEAR A Admitting Unavailable CASSY BEAR Attending Unavailable PHILLIP BURKETT Referring Unavailable PHILLIP BURKETT Primary Care Unavailable PHILLIP BURKETT Referring Unavailable XIAO VIDALES Surgeon Unavailable ORLIN HUI Attending Unavailable CALLI PAIGE Admitting Unavailable MT Procedure Practitioner Unavailab PHILLIP Muñoz Primary Care Unavailable MT Procedure Practitioner Unavailab Dunia Light Surgeon Unavailsindhu e Phillip Burkett Primary Care Physician SETH ., DR FISHER Primary Care Unavailable [...] Juan Miguel Ortiz Attending Unavailable MANOJ, CURTIS Admitting Unavailable MANOJ, CURTIS Attending Unavailable MANOJCURTIS Edouard Referring Unavailable MANOJ, CURTIS Referring Unavailable MANOJ, CURTIS Referring Unavailable MANOJ, CURTIS Referring Unavailable GHANSHYAMBESSIE Referring Unavailable MANOJ, CURTIS Attending Unavailable MANOJ, CURTIS Attending Unavailable SANITAGOJENNA WEISS Attending Unavailable Allergies Allergy ClassificationReported Allergen(s)Allergy TypeDate of OnsetReaction(s) Facility (4 sources)Morphine; Translations: [morphine]Drug Lwhlrmw04-74-1871Gko [facility] Repository (1 source)43497,00; Translations: [95144,00]Propensity to adverse reactions (disorder)38-30-7221Mxu [facility] Repository (2 sources)Morphine; Translations: [morphine]Drug AllergyFeeling nervous (finding), Tachycardia (finding)[facility] [place] (1 source)No Known Medication Allergies; Translations: [No Known Medication Allergies]Propensity to adverse reactions (disorder)[facility] Repository (1 source)dulaglutide; Translations: [DULAGLUTIDE]Drug Agpuivt08-83-0717 [facility] Repository Medications Current Medications MedicationDrug Class(es)DatesSig (Normalized)Sig (Original)3 ML semaglutide 2.68 MG/ML Pen Injector [Ozempic] (1 source)Start: 44-56-2983smzrfe 2 mg by subcutaneous injection every week Ozempic 8 mg/3 mL (2 mg dose) subcutaneous solution 2 mg, SubCutaneous, qWeek, Refills(s) 0 Start Date: 03/16/24 Status: [id number] 200 actuat albuterol 0.09 mg/actuat metered dose inhaler (4 sources)beta2-Adrenergic AgonistStart: 51-05-4655xqju 2 puff(s) by inhalation once for wheezingPro-Air HFA CFC free 90 mcg/inh MDI 2 puff(s), Inhalation, Once for wheezing, 8.5 gram, Refill(s) 0Start Date: 08/19/21 Status: OrderedStart: 03-15-3034agqq 2.5 mg by inhalation once dailyalbuterol 0.083% Inh Vlaeria 3 mL 2.5 mg, 3 mL, NEB, Daily, Refill(s) 0 Start Date: 08/19/21 Status: Orderedallopurinol 100 mg oral tablet (1 source)Xanthine Oxidase InhibitorStart: 13-84-5360orsk 1 tablet by mouth once dailyallopurinol 100 mg Tab 100 mg = 1 tab(s), Oral, Daily, Refills(s) 0 Start Date: 03/16/24 Status: Orderedapixaban 5 mg oral tablet (2 sources)Factor Xa InhibitorStart: 26-17-8669xvrn 1 tablet by mouth twice dailyEliquis 5 mg oral tablet 5 mg = 1 tab(s), Oral, BID, Refills(s) 0 Start Date: 08/19/21 Status: Orderedcolchicine 0.6 mg oral tablet (1 source)Start: 04-56-2107tixvxjvsup 0.6 mg Tab as directed, Refills(s) 0 Start Date: 03/16/24 Status: OrderedDilTIAZem (Eqv-Cardizem CD) 240 mg/24 hours oral capsule, extended release (2 sources)Start: 16-02-1106CgcDVHAef (Eqv-Cardizem CD) 240 mg/24 hours oral capsule, extended release 240 mg = 1 cap(s), Oral,Daily, Refills(s) 0 Start Date: 08/19/21 Status: Orderedezetimibe 10 mg oral tablet (1 source)Dietary Cholesterol Absorption InhibitorStart: 57-33-1923ukkh 1 tablet by mouth once dailyZetia 10 mg Tab 10 mg = 1 tab(s), Oral, Daily, Refills(s) 0 Start Date: 03/16/24 Status: OrderedPepcid (1 source)Histamine-2 Receptor AntagonistStart: 10-13-9004Fuyjjn Refills(s) 0 Start Date: 09/14/22 Status: Orderedferrous sulfate 325 mg oral tablet (2 sources)Start: 29-07-7880luzs 1 tablet by mouth twice dailyferrous sulfate 325 mg Tab 325 mg = 1 tab(s), Oral, BID, Refills(s) 0 Start Date: 09/03/22 Status: Orderedfurosemide 40 mg oral tablet (1 source)Loop DiureticStart: 38-71-6099oojb 1 tablet by mouth twice daily furosemide 40 mg Tab 40 mg = 1 tab(s), Oral, BID, Refills(s) 0 Start Date: 08/19/21 Status: Orderedhyoscyamine sulfate 0.125 mg oral tablet (2 sources)Start: 83-43-6888supj 1 tablet by mouth four times daily as needed Levsin 0.125 mg SL Tab 0.125 mg = 1 tab(s), Oral, QID, PRN cramping, Refills(s) 0 Start Date: 09/03/22 Status: Gsvhjop90 hr isosorbide mononitrate 30 mg extended release oral tablet (2 sources)Nitrate VasodilatorStart: 77-95-4779kvkk 1 tablet by mouth once daily in the morningisosorbide mononitrate 30 mg ER Tab 30 mg = 1 tab(s), Oral, qAM, Refills(s) 0 Start Date: 08/19/21 Status: Orderedlisinopril 5 mg oral tablet (1 source)Angiotensin Converting Enzyme InhibitorStart: 25-53-4886hqlv 1 tablet by mouth once dailylisinopril 5 mg Tab 5 mg = 1 tab(s), Oral, Daily, Refills(s) 0 Start Date: 04/04/24 Status: OrderedmetFORMIN hydrochloride 500 mg oral tablet (2 sources)BiguanideStart: 58-99-7565bgej 1 tablet by mouth twice dailymetformin 500 mg Tab 500 mg = 1 tab(s), Oral, BID, Refills(s) 0 Start Date: 09/03/22 Status: Orderedmetoprolol tartrate 50 mg oral tablet (2 sources)beta-Adrenergic BlockerStart: 44-23-9104rohf 1 tablet by mouth once dailyMetoprolol succinate 50 mg ER Tablet 50 mg, Oral, Daily, Refills(s) 0 Start Date: 08/19/21 Status: Orderedondansetron 4 mg disintegrating oral tablet (1 source)Serotonin-3 Receptor AntagonistStart: 78-51-4726hlaz 1 tablet by mouth three times daily as needed for nauseaondansetron 4 mg Dis Tab 4 mg = 1 tab(s), Oral, TID, PRN Nausea/Vomiting, Refills(s) 0 Start Date: 03/16/24 Status: Orderedpantoprazole 40 mg delayed release oral tablet (2 sources)Proton Pump InhibitorStart: 98-54-7692bpoo 1 tablet by mouth once dailyPantoprazole [address] Tab 40 mg = 1 tab(s), Oral, Daily, Refills(s) 0 Start Date: 08/19/21 Status: OrderedrOPINIRole 0.5 mg oral tablet (1 source)Nonergot Dopamine AgonistStart: 38-89-4955cyeo 1 tablet by mouth once dailyropinirole 0.5 mg Tab 0.5 mg = 1 tab(s), Oral, Daily, Refills(s) 0 Start Date: 03/16/24 Status: Ordered0.25 mg, 0.5 mg dose 1.5 ml semaglutide 1.34 mg/ml pen injector (1 source)Start: 32-07-7224Ftmtgsk 2 mg/1.5 mL (0.25 mg or 0.5 mg dose) subcutaneous solution Refill(s) 0, as directed Start Date: 09/03/22 Status: OrderedtiZANidine 4 mg oral tablet (1 source)Central alpha-2 Adrenergic AgonistStart: 02-78-2163xmsm 2 tablets by mouth at bedtimetiZANidine 4 mg Tab 8 mg = 2 tab(s), Oral, Bedtime, Refills(s) 0 Start Date: 03/16/24 Status: OrderedVitamin D3 2000 intl units oral Tab (1 source)Start: 00-50-0217nxfj 1 tablet by mouth once dailyVitamin D3 2000 intl units oral Tab 50 mcg, Oral, Daily, tab(s), Refills(s) 0 Start Date: 03/16/24 St atus: Ordered Completed/Discontinued Medications MedicationDrug Class(es)DatesSig (Normalized)Sig (Original)potassium chloride 20 meq extended release oral tablet (2 sources)Start: 77-67-4291dtob 1 tablet by mouth twice dailypotassium chloride 20 mEq ER Tab 20 mEq = 1 tab(s), Oral, BID, Refills(s) 0 Start Date: 09/03/22 Status: Ordered Problems Active Problems Problem ClassificationProblemDateDocumented DateEpisodic/ChronicAbdominal pain (15 sources)Right upper quadrant pain; Translations: [Right upper quadrant pain] Onset: 504734-52-2934XcijpvafRvyvbj (1 source)Unspecified asthma, uncomplicated; Translations: [UNSPECIFIED ASTHMA UNCOMPLICATED]Onset: 82-36-8491UumeymgZunvqta tract disease (7 sources)Calculus of gallbladder without cholecystitis without obstruction; Translations: [Cholelithiasis without obstruction]Onset: 11-18-5115Lmclxgyd Cardiac dysrhythmias (9 sources)Atrial flutter; Translations: [Paroxysmal atrial fibrillation]Onset: 921236-60-9021ZbbxemvFqsibnz dysrhythmias (2 sources)Palpitations; Translations: [Palpitations]Onset: 33-80-0891Ohgadwoj Chronic obstructive pulmonary disease and bronchiectasis (4 sources)Chronic obstructive lung disease; Translations: [Chronic obstructive pulmonary disease with (acute)lower respiratory infection]Onset: 11-19-2022 70-87-2726AkxlellVeaeqtiqwe heart failure; nonhypertensive (4 sources)Chronic diastolic heart failure; Translations: [Chronic diastolic (congestive) heart failure]Onset: 318028-46-7336TgxqrpfNoarnokq atherosclerosis and other heart disease (1 source)Atherosclerotic heart disease of [place] coronary artery without angina pectoris; Translations: [ASHD RAMPART CA W/O ANGINA PECTORIS]Onset: 08-11-2022 ChronicDiabetes mellitus without complication (3 sources)Diabetes mellitus; Translations: [Type 2 diabetes mellitus without complications]Onset: 439554-35-4861VwstgexHpgsysrc mellitus without complication (1 source)Hyperglycemia, unspecified; Translations: [HYPERGLYCEMIA UNSPECIFIED] Onset: 26-37-1023ObmeqtojIjzccykvx of lipid metabolism (12 sources)Pure hypercholesterolemia; Translations: [Pure hypercholesterolemia, unspecified]Onset: 447829-62-7944FkfgbvfFdwtqadbgizyio and diverticulitis (2 sources)Diverticular wxfarig83-13-2222MywfwkxLwxzirkba hypertension (3 sources)Hypertensive disorder; Translations: [Essential (primary) hypertension]Onset: 763536-00-7733DxnqkngSywq and other crystal arthropathies (3 sources)Gout; Translations: [Gout, unspecified]Onset: ChronicHeadache; including migraine (3 sources)Migraine; Translations: [Tension-type headache, unspecified, not intractable]Onset: 692820-43-1461PuhiuemLaentalh; including migraine (1 source)Headache; including migraine; Translations: [HEADACHE UNSPECIFIED] Onset: 22-04-9788Phcxwttrtvyh with complications and secondary hypertension (2 sources)Hypertensive heart disease with heart failure; Translations: [Hypertensive heart disease with heartfailure]Onset: 81-58-3488SgreolaDiajjhy and fatigue (1 source)Other fatigue; Translations: [OTHER FATIGUE]Onset: 32-07-5481Ihiuwioi Mood disorders (2 sources)Depressive -32-1398KokpdqnAkltuj and vomiting (2 sources)Nausea; Translations: [Nausea]Onset: 37-44-0271XljihtsgTjfudevdgrju breast conditions (2 sources)Fibrocystic disease of nnqepc09-79-8019JcedqakUyywkrqaduz deficiencies (1 source)Vitamin D deficiency, unspecified; Translations: [VITAMIN D DEFICIENCY UNSPECIFIED]Onset: 89-68-0874JwssispQrtlx aftercare (1 source)half-way (current) use of anticoagulants; Translations: [INTERMEDIATE CURRNT USE ANTICOAGULANTS]Onset: 09-77-2586OadnzdydTeelt aftercare (1 source)Other prison (current) drug therapy; Translations: [OTH DRY HOUSE TENDER CURRENT DRUG THERAPY]Onset: 60-41-6538TtpbucxxPkoge aftercare (1 source)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) use of oral hypoglycemic drugs; Translations: [INTERMEDIATE USE ORAL HYPOGLYCEMIC DX]Onset: 21-14-5155DlfrmepzTbzfw circulatory disease (2 sources)History of etmrqbijfbza51-35-5473QesjpsodWwbqx circulatory disease (2 sources)Personal history of other diseases of the circulatory system; Translations: [Personal history of other diseases of the circulatory system] Onset: 41-81-7086UdcybvrtVgxsq connective tissue disease (3 sources)Pain in right toe(s); Translations: [PAIN IN RIGHT TOES]Onset: 96-58-8860TkggizjlDogvm diseases of kidney and ureters (2 sources)Cyst of -88-7795FanjejzkFndvf gastrointestinal disorders (2 sources)Irritable bowel -31-8061LdzmmueNraej gastrointestinal disorders (1 source)Abnormal feces; Translations: [Other fecal abnormalities]Onset: 52-84-5274NiryypuxFseyz gastrointestinal disorders (1 source)Swollen abdomen; Translations: [Abdominal distension (gaseous)]Onset: 22-69-5604NesdlnhbWzduk gastrointestinal disorders (1 source)Abdominal xshebwgp42-00-0960UdvxaitkFycre gastrointestinal disorders (1 source)Occult blood in pynagt78-96-9477IpqaurbjUwpep nutritional; endocrine; and metabolic disorders (2 sources)Body mass index 30+ - xcmaheo91-11-4388JjpakfoTloqr nutritional; endocrine; and metabolic disorders (1 source)Obesity caused by energy fxpgymysd40-72-6933QbgqncqBaqga screening for suspected conditions (not mental disorders or infectious disease) (1 source)Encounter for screening for malignant neoplasm of rectum; Translations: [ENC SCREEN MALIG NEOPLASM RECTUM]Onset: 00-38-8152XfrdxlsnJqrlx upper respiratory infections (5 sources)Acute upper respiratory infection, unspecified; Translations: [Acute sinusitis, unspecified]Onset: 03-41-6778PpitdirxShwd-; endo-; and myocarditis; cardiomyopathy (except that caused by tuberculosis or sexually transmitted disease) (2 sources)Cardiomyopathy in diseases classified elsewhere; Translations: [Cardiomyopathy in diseases classified elsewhere]Onset: 76-18-0646KrqqnekKmgh-; endo-; and myocarditis; cardiomyopathy (except that caused by tuberculosis or sexually transmitted disease) (2 sources)Pericardial tydwwlni78-24-1145LmwsvolzCkvnjgxhj heart disease (2 sources)Pulmonary -42-0218TqkxmjhWxiiewyt codes; unclassified (2 sources)Obstructive sleep apnea tvaufivq79-41-2534FhkaoheIkfwxoay codes; unclassified (1 source)Sleep apnea, unspecified; Translations: [SLEEP APNEA UNSPECIFIED] Onset: 68-88-0516GlrnpgeOdfffckn codes; unclassified (2 sources)Gvcstnct54-98-0706WymppcdrKpokjzwa codes; unclassified (2 sources)Other specified postprocedural states; Translations: [Other specified postprocedural states]Onset: 31-64-0515QjbgrtkmEjhedmvrt and history of mental health and substance abuse codes (1 source)Personal history of nicotine dependence; Translations: [PERSONAL HISTORY OF NICOTINE DEPEND]Onset: 54-40-1014IxuadwyoMlnwbeiewoi; intervertebral disc disorders; other back problems (2 sources)Cervical disc afnmgspj54-44-2065QcjqueuMiobncfvsxd; intervertebral disc disorders; other back problems (2 sources)Low back ngbm71-96-4268EvfnysdqCulyevvctwzn (2 sources)Mild aortic valve hbvgoded98-89-9782Vxssdutvijnq (1 source)PERSONAL HISTORY OF COVID-19; Translations: [PERSONAL HISTORY OF COVID-19]Onset: 10-98-0678Nxxjoluflbcz (3 sources)COUGH, UNSPECIFIED; Translations: [COUGH, UNSPECIFIED]Onset: 56-41-0335Vjwzkfrugrnt (4 sources)CONTACT W/AND (SUSP) EXPOS COVID-19; Translations: [CONTACT W/AND (SUSP) EXPOS COVID-19]Onset: 07-18-2022 Past or Other Problems Problem ClassificationProblemDateDocumented DateEpisodic/ChronicConditions associated with dizziness or vertigo (2 sources)Dizziness and giddiness; Translations: [Dizziness and giddiness] Onset: 97-65-0612QqyabblmJcveu and electrolyte disorders (2 sources)Hypokalemia; Translations: [Hypokalemia]Onset: 89-55-1871Hjbfsumi Gastritis and duodenitis (1 source)Gastritis, unspecified, without bleeding; Translations: [GASTRITIS UNS WITHOUT BLEEDING]Onset: 16-47-6807SjhtudftIjrec valve disorders (2 sources)Cardiac murmur, unspecified; Translations: [Cardiac murmur, unspecified]Onset: 82-17-3346KnvcekvaDcxwt lower respiratory disease (1 source)Personal history of pneumonia (recurrent); Translations: [PERSONAL HX OF PNEUMONIA RECURRENT]Onset: 29-73-8934HjoagdtwWqwrd upper respiratory disease (1 source)Nasal congestion; Translations: [NASAL CONGESTION]Onset: 07-18-2022 EpisodicUnclassified (1 source)COUGH, UNSPECIFIED; Translations: [COUGH, UNSPECIFIED]Onset: 52-21-6661Alimzmvuecfv (1 source)CONTACT W/AND (SUSP) EXPOS COVID-19; Translations: [CONTACT W/AND (SUSP) EXPOS COVID-19]Onset: 07-16-2022 Results Test NameValueInterpretationReference RangeFacilityOffice Visiton 05-15-2025 Follow-up [id number] Diana Alvarez 1970 F Date Provider Department Center 05/15/2025 CURTIS VALDES [facility] Family History Problem Relation Age of Onset Breast cancer Mother Aneurysm Mother Stroke Mother Heart attack Father Coronary artery disease Father Stroke Sister Family Status - Relation Status Age at Mother Father Alive Sister Level of Service:49502 [place] OFFICE/OUTPATIENT ESTABLISHED LOW MDM 20 MIN Reason for Visit and Comments: Follow-up [664475] - Patient is here today for a follow up appointment S/P loop recorder. Patient states she was told by the company who placed the monitor advised her the monitor isn't hooked up. Patient denies chest pain, SOB/SAXENA, fatigue, leg swelling/pain. Cardiomegaly [Other] Atrial Flutter [101] Hypertension [980268] disorder of pericardium [Other] Congestive Heart Failure [127] Valve Disorder [3372] - Mild aortic stenosis Atrial Fibrillation [80] Hyperlipidemia [182] Pulmonary Hypertension [818] Pericardial effusion [Other]NormalBlanchard Valley Health SystemOrders Only on 57-97-8025Rmyfmx [id number] Diana Alvarez 1970 F Date Provider Department Center 05/02/2025 325-FLASHXIAO GRANGER [facility] Family History Problem Relation Age of Onset Breast cancer Mother Aneurysm Mother Stroke Mother Heart attack Father Coronary artery disease Father Stroke Sister Family Status - Relation Status Age at Mother Father Alive Sister DeceasedNormalUniLicking Memorial HospitalOrders Onlyon 02-28-2025 Orders [id number] Diana Alvarez 1970 F Date Provider Department Center 02/28/2025 Sally-FLASHXIAO [facility] Family History Problem Relation Age of Onset Breast cancer Mother Aneurysm Mother Stroke Mother Heart attack Father Coronary artery disease Father Stroke Sister Family Status - Relation Status Age at Mother Father Alive Sister DeceasedNoKettering Health Behavioral Medical CenterHPon 70-16-0555[facility] Consult Note Reason for visit: Palpitations, [...] trended upwards is a since seen in [place] [facility] 04/28/2023 and was diagnosed with vertigo [...] 08/18/2021 shows atrial fibrillation 07/[address] gr HPI: Patient here for 6 mo follow [...] file Financial Resource Strai (more content not included)...[facility] HospitalNURSNOTEon 78-66-0773CJQLIPEPTG educated pt on d/c instructions. This included: [...] wheeled off of unit with all of belongings.[facility]36on 10-33-801752Elbt: Jenna Phillips CNP Sent: 12/07/2024 8:14 AM [...] about it is if she don't feel good.[facility] HospitalAbstracton [id number] Diana Alvarez 1970 Provider Department Center 11/10/2024 CURTIS VALDES [facility] Family History Problem Relation Age of Onset Breast cancer Mother Aneurysm Mother Stroke Mother Heart attack Father Coronary artery disease Father Stroke Sister Family Status - Relation Status Age at Mother Father Alive Sister DeceasedNormalUniversSelect Medical Specialty Hospital [facility] Board[facility], Inc37on *We will decrease your lasix to 20mg every other day. *Hold your isosorbide and continue to monitor your blood pressure. Call us in 2 weeks with your readings. *Your last labs showed potassium was low at 3.3. Will order for potassium supplement 10mEq daily. *Repeat labs in 1 month.[facility] HospitalOffice Visiton 49-00-6255Oruhjk-up [id number] Diana Alvarez 1970 Date Provider Department Center 10/26/2024 JENNA ABREU CARD [facility] Family History Problem Relation Age of Onset Breast cancer Mother Aneurysm Mother Stroke Mother Heart attack Father Coronary artery disease Father Stroke Sister Family Status - Relation Status Age at Mother Father Alive Sister Level of Service:33802 MT OFFICE/OUTPATIENT ESTABLISHED MOD MDM 30 MIN Reason for Visit and Comments: Atrial Fibrillation [80] Dizziness [738960] Hypertension [096816][facility] HospitalOrders Onlyon 83-58-1382Fezhnj [id number] Diana Alvarez 1970 F Date Provider Department Center 10/26/2024 MARVIN HEARN CARD [place] [facility] Family History Problem Relation Age of Onset Breast cancer Mother Aneurysm Mother Stroke Mother Heart attack Father Coronary artery disease Father Stroke Sister Family Status - Relation Status Age at Mother Father Alive Sister DeceasedNormalUniLicking Memorial HospitalFollow-Upon 09-12-2024 Follow-[id number] Diana Alvarez 1970 F Date Provider Department Center 09/12/2024 CURTIS VALDES CARD [place] [facility] Family History Problem Relation Age of Onset Breast cancer Mother Aneurysm Mother Stroke Mother Heart attack Father Coronary artery disease Father Family Status - Relation Status Age at Mother Father Level of Service:45544 MT OFFICE/OUTPATIENT ESTABLISHED LOW MDM 20 MINNoal [facility] 13-28-5706IoydoefccZzhyuabyk From: Jacqueline Huerta LPN To: N - Clinical; Sent: 04/20/2024 11:34:18 EDT Show up: 03/20/2034 07:00:00 EDT Subject: colonoscopy recall Due Date/Time: 04/19/2034 07:00:00 EDT Reminder/Recall Patient due for screening colonoscopy 04/19/2034.[facility] MemorialAmbulatory Visit Summaryon 35-12-3575Hyauaevztj Visit SummaryAmbulatory Visit Summary DIANA ALVAREZ :1970 Visit Date:04/04/2024 Ambulatory Visit Instructions Your Care Team Attending Physician - BRAD DIAZ, Juan Miguel Ortiz Primary Care Physician - Seth DIAZ, Phillip This Is [...] Tab) as directed Contact prescribing physician if questionsor concerns Unchanged diltiazem (DilTIAZem (Eqv-Cardizem CD) 240 mg/ 24 hours oral capsule, extended release) 1Capsules By Mouth Every day Contact prescribing physician if questions or concerns Unchanged ezetimibe (Zetia 10 mg Tab) 1 Tablets By Mouth Every day Contact prescribing physician ifquestions or concerns Unchanged ferrous sulfate (ferrous sulfate [...] Tablet) 50 Milligram By Mouth Every day Contactprescribing physician if questions or concerns Unchanged Misc [...] 1 Tablets By Mouth Every day Contact prescribingphysician if questions or concerns Unchanged potassium chloride [...] morphine (Nervousness, Tachycardia) Problems (more content not included)...[facility] AUTO DIFFon 71-97-3425YCOV #0.0 103/ulNormal0.0-0.1The [facility] Medical CenterComment on above: Performed By: #### LIPID, CMP, T4, TSH, FT3 #### [facility] [address] [place] [address] Dr. Mendel HerronBasophils/100 WBC (Bld)0.2 %Normal0.2-2.0The [facility] Comment on above:Performed By: #### LIPID, CMP, T4, TSH, FT3 #### [facility] [address] [place] [address] Dr. Mendel Matthews #0.0 103/ulNormal0.0-0.7The [facility] Medical CenterComment on above: Performed By: #### LIPID, CMP, T4, TSH, FT3 #### [facility] [address] [place] [address] Dr. Mendel Samaniegoosinophils/100 WBC (Bld)0.3 %Critically low0.9-7.0The [facility] CenterComment on above:Performed By: #### LIPID, CMP, T4, TSH, FT3 #### [facility] [address] [place] [address] Dr. Mendel Samaniegorythrocyte distribution width (RBC) [Ratio]13.6 %Apnitu71.0-15.0 The [facility] Medical CenterComment on above:Performed By: #### LIPID, CMP, T4, TSH, FT3 #### [facility] [address] [place] [address] Dr. Mendel HerronHematocrit (Bld) [Volume fraction]40.1 %Qslrqb12.0-48.0The [facility] CenterComment on above:Performed By: #### LIPID, CMP, T4, TSH, FT3 #### [facility] [address] [place] [address] Dr. Mendel HerronHemoglobin (Bld) [Mass/Vol]13.0 g/yVSptxex90.0-16.0The [facility] CenterComment on above:Performed By: #### LIPID, CMP, T4, TSH, FT3 #### [facility] [address] [place] [address] Dr. Mendel Lowe #0.06 10e3/ulCritically high0.00-0.03The [facility] Comment on above:Performed By: #### LIPID, CMP, T4, TSH, FT3 #### [facility] [address] [place] [address] Dr. Mendel Lowe %0.5 %Normal0.0-0.5The [facility] CenterComment on above: Performed By: #### LIPID, CMP, T4, TSH, FT3 #### [facility] [address] [place] [address] Dr. Mendel Ambriz #2.8 103/ulNormal1.2-3.8The [facility] CenterComment on above:Performed By: #### LIPID, CMP, T4, TSH, FT3 #### [facility] [address] [place] [address] Dr. Mendel Calvillohocytes/100 WBC (Bld)22.4 %Hcydlo46.5-60.0The [facility] CenterComment on above:Performed By: #### LIPID, CMP, T4, TSH, FT3 #### [facility] [address] [place] [address] Dr. Mendel WalkerUAL DIFF REQNONormalThe [facility] Medical CenterComment on above: Performed By: #### LIPID, CMP, T4, TSH, FT3 #### [facility] [address] [place] [address] Dr. Mendel Terrell (RBC) [Entitic mass]30.8 ikBguidc57.7-34.0The [facility] CenterComment on above:Performed By: #### LIPID, CMP, T4, TSH, FT3 #### [facility] [address] [place] [address] Dr. Mendel Lucas (RBC) [Mass/Vol]32.4 g/qFIodmwa40.9-35.2The [facility] CenterComment on above:Performed By: #### LIPID, CMP, T4, TSH, FT3 #### [facility] [address] [place] [address] Dr. Mendel Lucas (RBC) [Entitic vol]95.0 sWEvwdqy13.0-99.0The [facility] CenterComment on above:Performed By: #### LIPID, CMP, T4, TSH, FT3 #### [facility] [address] [place] [address] Dr. Mendel Wiley #0.9 103/ulCritically high0.3-0.8ThKeenan Private Hospital Comment on above:Performed By: #### LIPID, CMP, T4, TSH, FT3 #### [facility] [address] [place] [address] Dr. Mendel Smythocytes/100 WBC (Bld)7.2 %Normal1.7-12.0[facility] Comment on above:Performed By: #### LIPID, CMP, T4, TSH, FT3 #### [facility] [address] [place] [address] Dr. Mendel Harris #8.6 103/ulCritically high1.4-6.5The [facility] Comment on above:Performed By: #### LIPID, CMP, T4, TSH, FT3 #### [facility] [address] [place] [address] Dr. Mendel Laurenutrophils/100 WBC (Bld)69.4 %Wjzxdl17.0-75.0The [facility] CenterComment on above:Performed By: #### LIPID, CMP, T4, TSH, FT3 #### [facility] [address] [place] [address] Dr. Mendel Benites mean volume (Bld) [Entitic vol]9.9 fLNormal9.5-13.5The [facility] CenterComment on above:Performed By: #### LIPID, CMP, T4, TSH, FT3 #### [facility] [address] [place] [address] Dr. Mendel HerronPLT297 103/phRexapa963-448Ntx [facility] CenterComment on above: Performed By: #### LIPID, CMP, T4, TSH, FT3 #### [facility] [address] [place] [address] Dr. Mendel HerronRBC4.22 106/ulNormal4.20-5.40The [facility] CenterComment on above:Performed By: #### LIPID, CMP, T4, TSH, FT3 #### [facility] [address] [place] [address] Dr. Mendel HerronWBC12.4 103/ulCritically high4.0-11.0The [facility] Hospitalment on above:Performed By: #### LIPID, CMP, T4, TSH, FT3 #### [facility] [address] [place] [address] Dr. Mendel Mendez 66-93-5856MHS6.3 mg/dLCritically high<=1.0The [facility] CenterComment on above:Performed By: #### LIPID, CMP, T4, TSH, FT3 #### [facility] [address] [place] [address] Dr. Mendel HerronPROBruce CHEM 8 (BAS METB)on 32-77-4649Qgxwc gap [Moles/Vol]13.6 mmol/LNormalThe [facility] CenterComment on above:Performed By: #### LIPID, CMP, T4, TSH, FT3 #### [facility] [address] [place] [address] Dr. Mendel HerronCalcium [Mass/Vol]9.3 mg/dLNormal8.5-10.1The [facility] Comment on above:Performed By: #### LIPID, CMP, T4, TSH, FT3 #### [facility] [address] [place] [address] Dr. Mendel HerronChloride [Moles/Vol]102 mmol/XHvolqm93-573Jsx [facility] Comment on above:Performed By: #### LIPID, CMP, T4, TSH, FT3 #### [facility] [address] [address] [address] Mendel HerronCO2 [Moles/Vol]30.7 mmol/RFutbyt75.0-32.0The [facility] Comment on above:Performed By: #### LIPID, CMP, T4, TSH, FT3 #### [facility] [address] [address] [address] Mendel HerronCreatinine [Mass/Vol]0.85 mg/dLNormal0.55-1.02The [facility] CenterComment on above:Performed By: #### LIPID, CMP, T4, TSH, FT3 #### [facility] [address] [place] [address] Dr. Mendel SamaniegoGFR-AF PERUVIAN>60Normal>=60The [facility] CenterComment on above:Performed By: #### LIPID, CMP, T4, TSH, FT3 #### [facility] [address] [address] [address] Mendel SamaniegoGFR-NON AF PERUVIAN>60Normal>=60[facility]aw[facility] HospitalComment on above:Performed By: #### LIPID, CMP, T4, TSH, FT3 #### [facility] [address] [place] [address] Dr. Mendel HerronGlucose [Mass/Vol]101 mg/xWFbhscp46-539DacTuscarawas Hospital Comment on above:Performed By: #### LIPID, CMP, T4, TSH, FT3 #### [facility] [address] [place] [address] Dr. Mendel HerronPotassium [Moles/Vol]3.3 mmol/LCritically low3.5-5.1The [facility] CenterComment on above:Performed By: #### LIPID, CMP, T4, TSH, FT3 #### [facility] [address] [place] [address] Dr. Mendel HerronSodium [Moles/Vol]143 mmol/RUftnnd931-959ZnbTuscarawas Hospital Comment on above:Performed By: #### LIPID, CMP, T4, TSH, FT3 #### [facility] [address] [address] [address] Mendel HerronUrea nitrogen [Mass/Vol]12.0 mg/dLNormal7.0-18.0The [facility] CenterComment on above:Performed By: #### LIPID, CMP, T4, TSH, FT3 #### [facility] [address] [address] [address] Mendel HerronUrea nitrogen/Creatinine [Mass ratio]14.1 mg/mgNoSelect Medical OhioHealth Rehabilitation Hospital - DublinComment on above:Performed By: #### LIPID, CMP, T4, TSH, FT3 #### [facility] [address] [address] [address] Mendel HerronURIC ACID SERUMon [id number] [Mass/Vol]7.8 mg/dLCritically high2.6-6.0The [facility] CenterComment on above:Performed By: #### LIPID, CMP, T4, TSH, FT3 #### [facility] [address] [address] [address] Mendel HerronXR TOES RT MIN 2 Von [id number] TOES RT MIN 2 VIMAGES REVIEWED: XR TOES RT MIN 2 V [...] Electronically authenticated by: GAIL PELLETIER Date: 2022-10-28 20:53[facility] CenterCovid-19 PCR (CVDTB)on [id number]-CoV-2 (COVID-19) RNA DEIRDRE+probe Ql (Unsp spec)Not detectedNormalNOT DETECTEDThe [facility] Comment on above:Result Comment: When diagnostic testing is negative, the [...] for this test is supported by the Virtualization Consultant of Health and Human Service's declaration that circumstances exist to justify the emergency use of in vitro diagnostics for the detection and/or diagnosis of the virus that causes COVID-19. This EUA will remain in effect for the duration of the COVID-19 declaration justifying emergency of IVDs, unless it is terminated or revoked by the FDA (after which the test may no longer be used).Performed By: #### LIPID, CMP, T4, TSH, FT3 #### [facility] [address] [place] [address] Dr. Mendel Krause AUTO DIFFon [id number] #0.1 103/ulNormal0.0-0.1The [facility] CenterComment on above:Performed By: #### LIPID, CMP, T4, TSH, FT3 #### [facility] [address] [place] [address] Dr. Mendel Littlejohnsophils/100 WBC (Bld)0.7 %Normal0.2-2.0The [facility] Comment on above:Performed By: #### LIPID, CMP, T4, TSH, FT3 #### [facility] [address] [place] [address] Dr. Mendel Matthews #0.1 103/ulNormal0.0-0.7The [facility] CenterComment on above: Performed By: #### LIPID, CMP, T4, TSH, FT3 #### [facility] [address] [place] [address] Dr. Mendel Samaniegoosinophils/100 WBC (Bld)0.7 %Critically low0.9-7.0The [facility] CenterComment on above:Performed By: #### LIPID, CMP, T4, TSH, FT3 #### [facility] [address] [place] [address] Dr. Mendel Samaniegorythrocyte distribution width (RBC) [Ratio]13.1 %Tprofx08.0-15.0 The [facility] CenterComment on above:Performed By: #### LIPID, CMP, T4, TSH, FT3 #### [facility] [address] [place] [address] Dr. Mendel HerronHematocrit (Bld) [Volume fraction]43.7 %Lpyica13.0-48.0The [facility] CenterComment on above:Performed By: #### LIPID, CMP, T4, TSH, FT3 #### [facility] [address] [place] [address] Dr. Mendel HerronHemoglobin (Bld) [Mass/Vol]14.4 g/cNVrkyaz35.0-16.0The [facility] CenterComment on above:Performed By: #### LIPID, CMP, T4, TSH, FT3 #### [facility] [address] [place] [address] Dr. Mendel Lowe #0.11 10e3/ulCritically high0.00-0.03The [facility] Comment on above:Performed By: #### LIPID, CMP, T4, TSH, FT3 #### [facility] [address] [place] [address] Dr. Mendel Lowe %1.3 %Critically high0.0-0.5The [facility] CenterComment on above:Performed By: #### LIPID, CMP, T4, TSH, FT3 #### [facility] [address] [place] [address] Dr. Mendel Ambriz #2.4 103/ulNormal1.2-3.8The [facility] CenterComment on above:Performed By: #### LIPID, CMP, T4, TSH, FT3 #### [facility] [address] [place] [address] Dr. Mendel Calvillohocytes/100 WBC (Bld)27.9 %Fhcqfx11.5-60.0The [facility] CenterComment on above:Performed By: #### LIPID, CMP, T4, TSH, FT3 #### [facility] [address] [place] [address] Dr. Mendel WalkerUAL DIFF REQNONormalThe [facility] CenterComment on above: Performed By: #### LIPID, CMP, T4, TSH, FT3 #### [facility] [address] [place] [address] Dr. Mendel Lucas (RBC) [Entitic mass]31.0 hyZwnzvw61.7-34.0The [facility] CenterComment on above:Performed By: #### LIPID, CMP, T4, TSH, FT3 #### [facility] [address] [place] [address] Dr. Mendel Lucas (RBC) [Mass/Vol]33.0 g/uYSxvtnl85.9-35.2The [facility] CenterComment on above:Performed By: #### LIPID, CMP, T4, TSH, FT3 #### [facility] [address] [place] [address] Dr. Mendel Lucas (RBC) [Entitic vol]94.0 fTMzwyge38.0-99.0The [facility] CenterComment on above:Performed By: #### LIPID, CMP, T4, TSH, FT3 #### [facility] [address] [place] [address] Dr. Mendel Wiley #0.5 103/ulNormal0.3-0.8The [facility] CenterComment on above:Performed By: #### LIPID, CMP, T4, TSH, FT3 #### [facility] [address] [place] [address] Dr. Mendel Smythocytes/100 WBC (Bld)6.0 %Normal1.7-12.0The [facility] Comment on above:Performed By: #### LIPID, CMP, T4, TSH, FT3 #### [facility] [address] [place] [address] Dr. Mendel Harris #5.4 103/ulNormal1.4-6.5The [facility] CenterComment on above:Performed By: #### LIPID, CMP, T4, TSH, FT3 #### [facility] [address] [place] [address] Dr. Mendel Clarkeophils/100 WBC (Bld)63.4 %Thwyfk09.0-75.0The [facility] on above:Performed By: #### LIPID, CMP, T4, TSH, FT3 #### [facility] [address] [place] [address] Dr. Mendel HerronPlatelet mean volume (Bld) [Entitic vol]9.8 fLNormal9.5-13.5The [facility] on above:Performed By: #### LIPID, CMP, T4, TSH, FT3 #### [facility] [address] [place] [address] Dr. Mendel HerronPLT398 103/woGsrsqd373-570Txn [facility] on above: Performed By: #### LIPID, CMP, T4, TSH, FT3 #### [facility] [address] [place] [address] Dr. Mendel HerronRBC4.65 106/ulNormal4.20-5.40The [facility] on above:Performed By: #### LIPID, CMP, T4, TSH, FT3 #### [facility] [address] [place] [address] Dr. Mendel HerronWBC8.6 103/ulNormal4.0-11.0The [facility] on above: Performed By: #### LIPID, CMP, T4, TSH, FT3 #### [facility] [address] [place] [address] Dr. Mendel HerronFREE T3on [id number] T32.59 pg/mlLNormal2.18-3.98The [facility] on above:Performed By: #### LIPID, CMP, T4, TSH, FT3 #### [facility] [address] [place] [address] Dr. Mendel HerronGLYCOHEMOGLOBIN A1Con [id number] RECOMMENDATIONSEE BELOWNormal The [facility] CenterCompromedica [facility] on above:Result Comment: ADA RECOMMENDED LIMIT 4.0 - 6.0 ADA THERAPEUTIC TARGET < 7.0 ACTION SUGGESTED > 7.0Performed By: #### A1C #### [facility] [address] [place] [address] Dr. Mendel HerronGlucose [Mass/Vol]120 mg/dLDayton VA Medical Center on above:Performed By: #### A1C #### [facility] [address] [place] [address] Dr. Mendel HerronHbA1c (Bld) [Mass fraction]5.8 %Normal4.5-6.2The [facility] CenterComment on above:Performed By: #### A1C #### [facility] [address] [place] [address] Dr. Mendel Moy PROFILEon [id number]-HDL RATIO NORMSKeenan Private HospitalComment on above:Result Comment: 3.3 - 4.4 LOW RISK 4.4 - 7.1 AVERAGE RISK 7.1 - 11.0 MODERATE RISK >11.0 HIGH RISKPerformed By: #### LIPID, CMP, T4, TSH, FT3 #### [facility] [address] [place] [address] Dr. Mendel Shabazzesterol [Mass/Vol]308 mg/dLCritically high<=200The [facility] on above:Performed By: #### LIPID, CMP, T4, TSH, FT3 #### [facility] [address] [place] [address] Dr. Mendel Shabazzesterol in HDL [Mass/Vol]46 mg/xJFundxx29-06Gyb [facility] CenterCompromed[facility] on above:Performed By: #### LIPID, CMP, T4, TSH, FT3 #### [facility] [address] [place] [address] Dr. Mendel Hayden in LDL [Mass/Vol]212.6 mg/dLAdena Regional Medical CenterCompromedica cold[facility] on above:Performed By: #### LIPID, CMP, T4, TSH, FT3 #### [facility] [address] [place] [address] Dr. Yilan ChangCholesterol.total/Cholesterol in HDL [Mass ratio]6.7 {ratio} NormalThe [facility] Willard Hospitalment on above:Performed By: #### LIPID, CMP, T4, TSH, FT3 #### [facility] [address] [place] [address] Dr. Mendel Ledesma NORMAL> or = 60 mg/dl - LOW CARDIOVASCULAR RISK <40 mg/dl - HIGH CARDIOVASCULAR RISKAdena Regional Medical CenterComment on above:Performed By: #### LIPID, CMP, T4, TSH, FT3 #### [facility] [address] [place] [address] Dr. Mendel HerronLDL CALC NORMALSEE BELOWAdena Regional Medical CenterComment on above:Result Comment: <100 mg/dl OPTIMAL 100 - 129 mg/dl NEAR OR ABOVE OPTIMAL 130 - 159 mg/dl BORDERLINE HIGH 160 - 189 mg/dl HIGH >190 mg/dl VERY HIGH Performed By: #### LIPID, CMP, T4, TSH, FT3 #### [facility] [address] [place] [address] Dr. Mendel HerronTriglyceride [Mass/Vol]247 mg/dLCritically high<=150The [facility] on above:Performed By: #### LIPID, CMP, T4, TSH, FT3 #### [facility] [address] [place] [address] Dr. Mendel HerronVLDL CALC49.4 mg/dLNoSelect Medical Specialty Hospital [facility] on above: Performed By: #### LIPID, CMP, T4, TSH, FT3 #### [facility] [address] [place] [address] Dr. Mendel HerronPROBruce 14(COMP METB)on [id number] [Mass/Vol]4.0 g/dLNormal 3.4-5.0The [facility] on above:Performed By: #### LIPID, CMP, T4, TSH, FT3 #### [facility] [address] [place] [address] Dr. Mendel HerronAlbumin/Globulin [Mass ratio]0.9 {ratio}NormalThe [facility] HospitalComment on above:Performed By: #### LIPID, CMP, T4, TSH, FT3 #### [facility] [address] [place] [address] Dr. Mendel Hensley [Catalytic activity/Vol]115 U/BJkfefl89-377Qew [facility] CenterCompromedica [facility] on above:Performed By: #### LIPID, CMP, T4, TSH, FT3 #### [facility] [address] [place] [address] Dr. Mendel Reddy [Catalytic activity/Vol]30 U/NQgfvwv58-18Buv [facility] CenterComment on above:Performed By: #### LIPID, CMP, T4, TSH, FT3 #### [facility] [address] [place] [address] Dr. Mendel Diallo gap [Moles/Vol]12.7 mmol/LNormalTuscarawas Hospital Comment on above:Performed By: #### LIPID, CMP, T4, TSH, FT3 #### [facility] [address] [place] [address] Dr. Mendel Mills [Catalytic activity/Vol]18 U/YJdueda37-69Zuq [facility] CenterComment on above:Performed By: #### LIPID, CMP, T4, TSH, FT3 #### [facility] [address] [place] [address] Dr. Mendel HerronBilirubin [Mass/Vol]0.7 mg/dLNormal0.2-1.0[facility] Comment on above:Performed By: #### LIPID, CMP, T4, TSH, FT3 #### [facility] [address] [place] [address] Dr. Mendel HerronCalcium [Mass/Vol]9.7 mg/dLNormal8.5-10.1[facility] Comment on above:Performed By: #### LIPID, CMP, T4, TSH, FT3 #### [facility] [address] [place] [address] Dr. Mendel HerronChloride [Moles/Vol]103 mmol/EXgvkfa85-912Nze [facility] Comment on above:Performed By: #### LIPID, CMP, T4, TSH, FT3 #### [facility] [address] [place] [address] Dr. Mendel HerronCO2 [Moles/Vol]26.5 mmol/WNhrpkm73.0-32.0The [facility] Comment on above:Performed By: #### LIPID, CMP, T4, TSH, FT3 #### [facility] [address] [place] [address] Dr. Mendel HerronCreatinine [Mass/Vol]0.83 mg/dLNormal0.55-1.02[facility]aw[facility] HospitalComment on above:Performed By: #### LIPID, CMP, T4, TSH, FT3 #### [facility] [address] [place] [address] Dr. Mendel SamaniegoGFR-AF PERUVIAN>60Normal>=60The [facility] CenterComment on above:Performed By: #### LIPID, CMP, T4, TSH, FT3 #### [facility] [address] [place] [address] Dr. Mendel SamaniegoGFR-NON AF PERUVIAN>60Normal>=60[facility]aw[facility] HospitalComment on above:Performed By: #### LIPID, CMP, T4, TSH, FT3 #### [facility] [address] [place] [address] Dr. Mendel HerronGlobulin (S) [Mass/Vol]4.4 g/dLNormalThe [facility] CenterComment on above:Performed By: #### LIPID, CMP, T4, TSH, FT3 #### [facility] [address] [place] [address] Dr. Mendel HerronGlucose [Mass/Vol]97 mg/kSBegeyd37-355LtiTuscarawas Hospital Comment on above:Performed By: #### LIPID, CMP, T4, TSH, FT3 #### [facility] [address] [place] [address] Dr. Mendel HerronPotassium [Moles/Vol]4.2 mmol/LNormal3.5-5.1The [facility] Comment on above:Performed By: #### LIPID, CMP, T4, TSH, FT3 #### [facility] [address] [place] [address] Dr. Mendel HerronProtein [Mass/Vol]8.4 g/dLCritically high6.4-8.2The [facility] Hospitalment on above:Performed By: #### LIPID, CMP, T4, TSH, FT3 #### [facility] [address] [place] [address] Dr. Mendel HerronSodium [Moles/Vol]138 mmol/UOteksb596-090Iyd [facility] Comment on above:Performed By: #### LIPID, CMP, T4, TSH, FT3 #### [facility] [address] [place] [address] Dr. Mendel HerronUrea nitrogen [Mass/Vol]12.0 mg/dLNormal7.0-18.0The [facility] CenterComment on above:Performed By: #### LIPID, CMP, T4, TSH, FT3 #### [facility] [address] [place] [address] Dr. Mendel Salazar nitrogen/Creatinine [Mass ratio]14.5 mg/mgNormalThe [facility] CenterComment on above:Performed By: #### LIPID, CMP, T4, TSH, FT3 #### [facility] [address] [place] [address] Dr. Mendel HerronT4on [id number] [Mass/Vol]8.80 ug/dLNormal4.80-13.90The [facility] CenterComment on above:Performed By: #### LIPID, CMP, T4, TSH, FT3 #### [facility] [address] [place] [address] Dr. Mendel BryanHoradha 58-48-3103FAX9.898 uIU/mLNormal0.358-3.740The [facility] CenterComment on above:Performed By: #### LIPID, CMP, T4, TSH, FT3 #### [facility] [address] [place] [address] Dr. Mendel HerronVITAMIN D 25 OHon [id number] D 25-OH24.0 ng/mLNormalThe [facility] CenterComment on above:Performed By: #### LIPID, CMP, T4, TSH, FT3 #### [facility] [address] [place], [place] [address] Dr. Mendel CORONADO [facility] Medical CenterComment on above: Result Comment: <20 ng/mL Vit D deficient 20 - <30 ng/mL Vit D insufficient 30 - 100 ng/mL Vit D sufficient >100 ng/mL Potential ToxicityPerformed By: #### LIPID, CMP, T4, TSH, FT3 #### [facility] [address] [place], [place] [address] Dr. Mendel HerronOH HEPATOBILIARY SCAN W EFon [id number] HEPATOBILIARY SCAN W EF EXAMINATION: [place] HEPATOBILIARY [...] Electronically authenticated by: VIVI GARY Date: 2022-08-20 16:07[facility] CenterUS SINGLE QUAD RT UPPERon [id number] SINGLE QUAD RT UPPER EXAMINATION: US SINGLE [...] Electronically authenticated by: JEAN LOPES Date: 2022-08-11 15:50[facility] Medical CenterCARDIAC SUBHA ADMITon [id number] [Catalytic activity/Vol]30 U/MHlacje88-644Iqd [facility] Hospitalment on above:Performed By: #### LIPID, CMP, T4, TSH, FT3 #### [facility] [address] [place] [address] Dr. Mendel Mathis.MB [Mass/Vol]1.02 ng/mLNormal<=3.60The [facility] Comment on above:Performed By: #### LIPID, CMP, T4, TSH, FT3 #### [facility] [address] [place] [address] Dr. Mendel ShawTROP32.8 pg/mLNormal4.0-51.3The [facility] CenterComment on above:Result Comment: CUT-OFF POINTS HAVE BEEN ESTABLISHED BASED ON THE FOURTH UNIVERSAL DEFINITIONS OF MYOCARDIAL INFARCTION. THE UPPER REFERENCE LIMIT (URL) OF TROPONIN, DEFINED THE 99TH PERCENTILE OF cTnI DISTRIBUTION IN A REFERENCE POPULATION, HAS BEEN CONFIRMED THE DECISION THRESHOLD FOR [place] DIAGNOSIS.Performed By: #### LIPID, CMP, T4, TSH, FT3 #### [facility] [address] [address] [address] Mendel BeanO23 ng/mLNormal9-82The [facility] CenterComment on above: Performed By: #### LIPID, CMP, T4, TSH, FT3 #### [facility] [address] [place] [address] Dr. Mendel Krause AUTO DIFFon [id number] #0.0 103/ulNormal0.0-0.1The [facility] on above:Performed By: #### LIPID, CMP, T4, TSH, FT3 #### [facility] [address] [place] [address] Dr. Mendel HerronBasophils/100 WBC (Bld)0.3 %Normal0.2-2.0The [facility] Comment on above:Performed By: #### LIPID, CMP, T4, TSH, FT3 #### [facility] [address] [place] [address] Dr. Mendel Matthews #0.0 103/ulNormal0.0-0.7The [facility] on above: Performed By: #### LIPID, CMP, T4, TSH, FT3 #### [facility] [address] [place] [address] Dr. Mendel Samaniegoosinophils/100 WBC (Bld)0.3 %Critically low0.9-7.0The [facility] on above:Performed By: #### LIPID, CMP, T4, TSH, FT3 #### [facility] [address] [place] [address] Dr. Mendel Samaniegorythrocyte distribution width (RBC) [Ratio]13.1 %Pqaful26.0-15.0 The [facility] CenterComment on above:Performed By: #### LIPID, CMP, T4, TSH, FT3 #### [facility] [address] [place] [address] Dr. Mendel HerronHematocrit (Bld) [Volume fraction]42.7 %Pypued17.0-48.0The [facility] on above:Performed By: #### LIPID, CMP, T4, TSH, FT3 #### [facility] [address] [place] [address] Dr. Mendel HerronHemoglobin (Bld) [Mass/Vol]15.4 g/hSOvmanp62.0-16.0The [facility] on above:Performed By: #### LIPID, CMP, T4, TSH, FT3 #### [facility] [address] [place] [address] Dr. Mendel Lowe #0.05 10e3/ulCritically high0.00-0.03The [facility] Comment on above:Performed By: #### LIPID, CMP, T4, TSH, FT3 #### [facility] [address] [place] [address] Dr. Mendel Lowe %0.4 %Normal0.0-0.5The [facility] CenterComment on above: Performed By: #### LIPID, CMP, T4, TSH, FT3 #### [facility] [address] [place] [address] Dr. Mendel Ambriz #2.5 103/ulNormal1.2-3.8The [facility] CenterComment on above:Performed By: #### LIPID, CMP, T4, TSH, FT3 #### [facility] [address] [place] [address] Dr. Mendel Calvillohocytes/100 WBC (Bld)21.2 %Tchtgr18.5-60.0The [facility] CenterComment on above:Performed By: #### LIPID, CMP, T4, TSH, FT3 #### [facility] [address] [place] [address] Dr. Mendel WalkerUAL DIFF REQNONormalThe [facility] CenterComment on above: Performed By: #### LIPID, CMP, T4, TSH, FT3 #### [facility] [address] [place] [address] Dr. Mendel Lucas (RBC) [Entitic mass]31.7 rfYozuev62.7-34.0The [facility] CenterComment on above:Performed By: #### LIPID, CMP, T4, TSH, FT3 #### [facility] [address] [place] [address] Dr. Mendel Lucas (RBC) [Mass/Vol]36.1 g/dLCritically high29.9-35.2The [facility] CenterComment on above:Performed By: #### LIPID, CMP, T4, TSH, FT3 #### [facility] [address] [address] [address] Mendel Hurley (RBC) [Entitic vol]87.9 yESbbzki83.0-99.0The [facility]ment on above:Performed By: #### LIPID, CMP, T4, TSH, FT3 #### [facility] [address] [place] [address] Dr. Mendel Wiley #0.7 103/ulNormal0.3-0.8The [facility] on above:Performed By: #### LIPID, CMP, T4, TSH, FT3 #### [facility] [address] [place] [address] Dr. Mendel Smythocytes/100 WBC (Bld)6.3 %Normal1.7-12.0The [facility] Comment on above:Performed By: #### LIPID, CMP, T4, TSH, FT3 #### [facility] [address] [place] [address] Dr. Mendel Harris #8.4 103/ulCritically high1.4-6.5The [facility] Comment on above:Performed By: #### LIPID, CMP, T4, TSH, FT3 #### [facility] [address] [place] [address] Dr. Mendel Laurenutrophils/100 WBC (Bld)71.5 %Ozzupf15.0-75.0The [facility] on above:Performed By: #### LIPID, CMP, T4, TSH, FT3 #### [facility] [address] [place] [address] Dr. Mendel Kwoklet mean volume (Bld) [Entitic vol]9.8 fLNormal9.5-13.5The [facility] on above:Performed By: #### LIPID, CMP, T4, TSH, FT3 #### [facility] [address] [place] [address] Dr. Mendel HerronPLT374 103/xcXvsafi400-341Zrv [facility] CenterComment on above: Performed By: #### LIPID, CMP, T4, TSH, FT3 #### [facility] [address] [place] [address] Dr. Mendel HerronRBC4.86 106/ulNormal4.20-5.40The [facility] CenterComment on above:Performed By: #### LIPID, CMP, T4, TSH, FT3 #### [facility] [address] [place] [address] Dr. Mendel HerronWBC11.7 103/ulCritically high4.0-11.0The [facility] CenterComment on above:Performed By: #### LIPID, CMP, T4, TSH, FT3 #### [facility] [address] [place] [address] Dr. Mendel HerronCT HEAD WO CONon [id number] HEAD WO CONEXAM: CT HEAD WO CON CLINICAL INDICATION: HEADACHE [...] Electronically authenticated by: HELLEN VELAZQUEZ Date: 2022-08-09 15:23[facility] CenterCovid-[facility] ([facility]VDBA[facility])on [id number]-CoV-2 (COVID-19) RNA DEIRDRE+probe Ql (Unsp spec)Not detectedNormalNOT DETECTEDThe [facility] Comment on above:Result Comment: When diagnostic testing is negative, the [...] for this test is supported by the Virtualization Consultant of Health and Human Service's declaration that circumstances exist to justify the emergency use of in vitro diagnostics for the detection and/or diagnosis of the virus that causes COVID-19. This EUA will remain in effect for the duration of the COVID-19 declaration justifying emergency of IVDs, unless it is terminated or revoked by the FDA (after which the test may no longer be used).Performed By: #### LIPID, CMP, T4, TSH, FT3 #### [facility] [address] [place] [address] Dr. Mendel Lantigua URINE PROFILEon [id number] Ql (U)NegativeNormal NEGATIVETuscarawas HospitalComment on above:Performed By: #### LIPID, CMP, T4, TSH, FT3 #### [facility] [address] [place] [address] Dr. Mendel HerronClarity (U)CLEARNormalCLEARTuscarawas HospitalComment on above: Performed By: #### LIPID, CMP, T4, TSH, FT3 #### [facility] [address] [place] [address] Dr. Mendel Dasilva (U)LT. YELLOWNormalYELLOWTuscarawas HospitalComment on above:Performed By: #### LIPID, CMP, T4, TSH, FT3 #### [facility] [address] [place] [address] Dr. Mendel Yarbrough micrscopic examination will be performed if indicated. NormalTuscarawas HospitalComment on above:Performed By: #### LIPID, CMP, T4, TSH, FT3 #### [facility] [address] [place] [address] Dr. Mendel HerronGlucose Ql (U)NegativeNormalNEGATIVETuscarawas HospitalComment on above:Performed By: #### LIPID, CMP, T4, TSH, FT3 #### [facility] [address] [address] [address] Mendel HerronHemoglobin Ql (U)TRACE-INTACTAbnormalNEGATIVEThe [facility] CenterComment on above:Performed By: #### LIPID, CMP, T4, TSH, FT3 #### [facility] [address] [address] [address] Mendel Dobbs Ql (U)NegativeNormalNEGATIVEThe [facility] CenterComment on above:Performed By: #### LIPID, CMP, T4, TSH, FT3 #### [facility] [address] [address] [address] Mendel HerronLEUKOCYTESNegativeNormalNEGATIVEThe [facility] CenterComment on above:Performed By: #### LIPID, CMP, T4, TSH, FT3 #### [facility] [address] [place] [address] Dr. Mendel Acostatrite Ql (U)NegativeNormalNEGATIVEThe [facility] CenterComment on above:Performed By: #### LIPID, CMP, T4, TSH, FT3 #### [facility] [address] [place] [address] Dr. Mendel HerronpH (U)5.0 [pH]Normal5-9The [facility] on above: Performed By: #### LIPID, CMP, T4, TSH, FT3 #### [facility] [address] [address] [address] Mendel HerronSPEC GRAVITY1.219Kvwyih6.005-<=1.025The [facility] CenterComment on above:Performed By: #### LIPID, CMP, T4, TSH, FT3 #### [facility] [address] [address] [address] Mendel HerronUA PROTEINNegativeNormalNEGATIVE/ TRACEThe [facility] on above:Performed By: #### LIPID, CMP, T4, TSH, FT3 #### [facility] [address] [place] [address] Dr. Mendel Oliva MICRO INDINDICATEDNormalThe [facility] CenterComment on above: Performed By: #### LIPID, CMP, T4, TSH, FT3 #### [facility] [address] [address] [address] Mendel Bhardwaj Qn (U)0.2 {James'U}/dLNormal0.2 - 1.0The [facility] CenterComment on above:Performed By: #### LIPID, CMP, T4, TSH, FT3 #### [facility] [address] [address] [address] Mendel HerronLIPASEon [id number] [Catalytic activity/Vol]114.0 U/LNormal 73.0-393.0The [facility] CenterComment on above:Performed By: #### LIPA, BMP, CMADM #### [facility] [address] [place] [address] Dr. Mendel HerronPROF CHEM 8 (BAS METB)on [id number] gap [Moles/Vol]18.9 mmol/LNormalThe [facility] CenterComment on above:Performed By: #### LIPA, BMP, CMADM #### [facility] [address] [address] [address] Mendel HerronCalcium [Mass/Vol]9.4 mg/dLNormal8.5-10.1The [facility] Comment on above:Performed By: #### LIPA, BMP, CMADM #### [facility] [address] [address] [address] Mendel HerronChloride [Moles/Vol]97 mmol/LCritically uyt24-498Sox [facility] CenterComment on above:Performed By: #### LIPA, BMP, CMADM #### [facility] [address] [address] [address] Mendel HerronCO2 [Moles/Vol]26.0 mmol/FDrtxjf49.0-32.0The [facility] Comment on above:Performed By: #### LIPA, BMP, CMADM #### [facility] [address] [address] [address] Mendel HerronCreatinine [Mass/Vol]0.85 mg/dLNormal0.55-1.02The [facility] CenterComment on above:Performed By: #### LIPA, BMP, CMADM #### [facility] [address] [address] [address] Mendel SamaniegoGFR-AF PERUVIAN>60Normal>=60The [facility] CenterComment on above:Performed By: #### LIPA, BMP, CMADM #### [facility] [address] [address] [address] Mendel SamnaiegoGFR-NON AF PERUVIAN>60Normal>=60The [facility] CenterComment on above:Performed By: #### LIPA, BMP, CMADM #### [facility] [address] [place] [address] Dr. Mendel HerronGlucose [Mass/Vol]120 mg/dLCritically pkdy28-717Iec [facility] CenterComment on above:Performed By: #### LIPA, BMP, CMADM #### [facility] [address] [address] [address] Mendel HerronPotassium [Moles/Vol]3.9 mmol/LNormal3.5-5.1The [facility] Comment on above:Performed By: #### LIPA, BMP, CMADM #### [facility] [address] [place] [address] Dr. Mendel HerronSodium [Moles/Vol]138 mmol/HBcdljn920-190Jbr [facility] Comment on above:Performed By: #### LIPA, BMP, CMADM #### [facility] [address] [place] [address] Dr. Mendel HerronUrea nitrogen [Mass/Vol]17.0 mg/dLNormal7.0-18.0The [facility] CenterComment on above:Performed By: #### LIPA, BMP, CMADM #### [facility] [address] [place] [address] Dr. Mendel HerronUrea nitrogen/Creatinine [Mass ratio]20.0 mg/mgNormalThe [facility] CenterComment on above:Performed By: #### LIPA, BMP, CMADM #### [facility] [address] [place] [address] Dr. Mendel Faye, HIGH SENSITIVITYon [id number] pg/mLNormal 4.0-51.3The [facility] Hospitalment on above:Result Comment: CUT-OFF POINTS HAVE BEEN ESTABLISHED BASED ON THE FOURTH UNIVERSAL DEFINITIONS OF MYOCARDIAL INFARCTION. THE UPPER REFERENCE LIMIT (URL) OF TROPONIN, DEFINED THE 99TH PERCENTILE OF cTnI DISTRIBUTION IN A REFERENCE POPULATION, HAS BEEN CONFIRMED THE DECISION THRESHOLD FOR [place] DIAGNOSIS.Performed By: #### LIPID, CMP, T4, TSH, FT3 #### [facility] [address] [place] [address] Dr. Mendel BROOKSon [id number] SEENNormalNONE [facility]ENWood [facility] on above:Performed By: #### LIPID, CMP, T4, TSH, FT3 #### [facility] [address] [place] [address] Dr. Mendel Galicia identified Cx Nom (U)NOT INDICATEDDayton VA Medical Center on above:Performed By: #### LIPID, CMP, T4, TSH, FT3 #### [facility] [address] [place] [address] Dr. Mendel De Paz SEENNormalNONE SEENWood County Hospital on above:Performed By: #### LIPID, CMP, T4, TSH, FT3 #### [facility] [address] [place] [address] Dr. Mendel Castillo LM Nom (Urine sed)NONE SEENNormalNONE SEENWood County Hospital on above:Performed By: #### LIPID, CMP, T4, TSH, FT3 #### [facility] [address] [place] [address] Dr. Mendel Samaniegopithelial cells LM Ql (Urine sed)NONE SEENNormalNONE SEEN /RARE The [facility] CenterCompromedica [facility] on above:Performed By: #### LIPID, CMP, T4, TSH, FT3 #### [facility] [address] [place] [address] Dr. Mendel JamesonUSJARROD SEENNormalJARROD SEENTuscarawas HospitalComment on above:Performed By: #### LIPID, CMP, T4, TSH, FT3 #### [facility] [address] [address] [address] Mendel HerronGsnxdXNM2-5Jnacjz7-8Bzq [facility] on above:Performed By: #### LIPID, CMP, T4, TSH, FT3 #### [facility] [address] [address] [address] Mendel CallahanBCJARROD SEENNormazNONNatacha SEENTuscarawas HospitalComment on above: Performed By: #### LIPID, CMP, T4, TSH, FT3 #### [facility] [address] [address] [address] Mendel HerronXR CHEST 1 Von [id number] CHEST 1 VEXAM: XR CHEST 1 V INDICATION: CHEST PAIN, UNSPECIFIED. COMPARISON: Chest radiograph 08/26/2021 TECHNIQUE: Single frontal view of the chest FINDINGS: Cardiac loop recorder overlying the left chest. Borderline enlargement of the cardiac silhouette. Clear lungs. No pleural effusion or pneumothorax. No acute osseous abnormality. IMPRESSION: No acute cardiopulmonary process. Electronically authenticated by: MARY DIETZ Date: 2022-08-09 15:18[facility] PYLORI ANTIBODY IGGon 08-07-2022H. PYLORI IGG ABS0.11 Index ValueNormal0.00-0.79The [facility] on above:Result Comment: Negative <0.80 Equivocal 0.80 - 0.89 Positive >0.89Performed By: #### LIPID, CMP, T4, TSH, FT3 #### [facility] [address] [address] [address] Mendel HerronAMYLASEon [id number] [Catalytic activity/Vol]57 U/LNormal 25-115The [facility] on above:Performed By: #### LIPID, CMP, T4, TSH, FT3 #### [facility] [address] [address] [address] Mendel HerronCBC AUTO DIFFon [id number] #0.1 103/ulNormal0.0-0.1The [facility] Hospitalment on above:Performed By: #### LIPID, CMP, T4, TSH, FT3 #### [facility] [address] [place] [address] Dr. Mendel HerronBasophils/100 WBC (Bld)0.7 %Normal0.2-2.0The [facility] Comment on above:Performed By: #### LIPID, CMP, T4, TSH, FT3 #### [facility] [address] [place] [address] Dr. Mendel SamaniegoO #0.1 103/ulNormal0.0-0.7The [facility] CenterComment on above: Performed By: #### LIPID, CMP, T4, TSH, FT3 #### [facility] [address] [place] [address] Dr. Mendel Samaniegoosinophils/100 WBC (Bld)0.5 %Critically low0.9-7.0The [facility]ment on above:Performed By: #### LIPID, CMP, T4, TSH, FT3 #### [facility] [address] [place] [address] Dr. Mendel Samaniegorythrocyte distribution width (RBC) [Ratio]13.7 %Pyapse69.0-15.0 The [facility] Hospitalment on above:Performed By: #### LIPID, CMP, T4, TSH, FT3 #### [facility] [address] [place] [address] Dr. Mendel HerronHematocrit (Bld) [Volume fraction]46.2 %Kslccn57.0-48.0The [facility] Hospitalment on above:Performed By: #### LIPID, CMP, T4, TSH, FT3 #### [facility] [address] [place] [address] Dr. Mendel HerronHemoglobin (Bld) [Mass/Vol]15.1 g/hSZxldgq74.0-16.0The [facility] CenterComment on above:Performed By: #### LIPID, CMP, T4, TSH, FT3 #### [facility] [address] [address] [address] Mendel Lowe #0.06 10e3/ulCritically high0.00-0.03The [facility] Comment on above:Performed By: #### LIPID, CMP, T4, TSH, FT3 #### [facility] [address] [place] [address] Dr. Mendel Lowe %0.6 %Critically high0.0-0.5The [facility] CenterComment on above:Performed By: #### LIPID, CMP, T4, TSH, FT3 #### [facility] [address] [place] [address] Dr. Mendel Ambriz #2.5 103/ulNormal1.2-3.8The [facility] CenterComment on above:Performed By: #### LIPID, CMP, T4, TSH, FT3 #### [facility] [address] [place] [address] Dr. Mendel Calvillohocytes/100 WBC (Bld)23.4 %Hdnrcq62.5-60.0The [facility] CenterComment on above:Performed By: #### LIPID, CMP, T4, TSH, FT3 #### [facility] [address] [place] [address] Dr. Mendel WalkerUAL DIFF REQNONormalThe [facility] CenterComment on above: Performed By: #### LIPID, CMP, T4, TSH, FT3 #### [facility] [address] [place] [address] Dr. [facility]el HerronCAYUGA [facility] (RBC) [Entitic mass]31.4 pzMobtfo97.7-34.0The [facility] CenterComment on above:Performed By: #### LIPID, CMP, T4, TSH, FT3 #### [facility] [address] [place] [address] Dr. Mendel Lucas (RBC) [Mass/Vol]32.7 g/zOUdbgwg88.9-35.2The [facility] CenterComment on above:Performed By: #### LIPID, CMP, T4, TSH, FT3 #### [facility] [address] [place] [address] Dr. Mnedel LucasV (RBC) [Entitic vol]96.0 lQZbsrnx51.0-99.0The [facility] CenterComment on above:Performed By: #### LIPID, CMP, T4, TSH, FT3 #### [facility] [address] [place] [address] Dr. Mendel Wiley #0.6 103/ulNormal0.3-0.8The [facility] CenterComment on above:Performed By: #### LIPID, CMP, T4, TSH, FT3 #### [facility] [address] [place] [address] Dr. Mendel Smythocytes/100 WBC (Bld)6.0 %Normal1.7-12.0The [facility] Comment on above:Performed By: #### LIPID, CMP, T4, TSH, FT3 #### [facility] [address] [place] [address] Dr. Mendel Harris #7.4 103/ulCritically high1.4-6.5The [facility] Comment on above:Performed By: #### LIPID, CMP, T4, TSH, FT3 #### [facility] [address] [place] [address] Dr. Mendel Laurenutrophils/100 WBC (Bld)68.8 %Oixkqq23.0-75.0The [facility]ment on above:Performed By: #### LIPID, CMP, T4, TSH, FT3 #### [facility] [address] [place] [address] Dr. Mendel Benites mean volume (Bld) [Entitic vol]9.7 fLNormal9.5-13.5The [facility] Hospitalment on above:Performed By: #### LIPID, CMP, T4, TSH, FT3 #### [facility] [address] [place] [address] Dr. Mendel HerronPLT331 103/wuKlayun543-747Rwq [facility] CenterComment on above: Performed By: #### LIPID, CMP, T4, TSH, FT3 #### [facility] [address] [address] [address] Mendel HerronRBC4.81 106/ulNormal4.20-5.40The [facility] on above:Performed By: #### LIPID, CMP, T4, TSH, FT3 #### [facility] [address] [place] [address] Dr. Mendel HerronWBC10.7 103/ulNormal4.0-11.0The [facility] on above:Performed By: #### LIPID, CMP, T4, TSH, FT3 #### [facility] [address] [address] [address] Mendel HerronCT HEAD WO CONon [id number] HEAD WO CONEXAMINATION: CT HEAD WO CON HISTORY: Acute sinusitis [...] Electronically authenticated by: JEAN LOPES Date: 2022-08-06 08:39[facility] CenterLIPASEon [id number] [Catalytic activity/Vol]125.0 U/L Hhomxb76.0-393.0The [facility] on above:Performed By: #### LIPID, CMP, T4, TSH, FT3 #### [facility] [address] [place] [address] Dr. Mendel HerronPROF 14(COMP METB)on [id number] [Mass/Vol]3.7 g/dLNormal 3.4-5.0The [facility] on above:Performed By: #### LIPID, CMP, T4, TSH, FT3 #### [facility] [address] [place] [address] Dr. Mendel HerronAlbumin/Globulin [Mass ratio]0.9 {ratio}NormalThe [facility] CenterComment on above:Performed By: #### LIPID, CMP, T4, TSH, FT3 #### [facility] [address] [place] [address] Dr. Mendel Hensley [Catalytic activity/Vol]110 U/EBxppau20-638Gez [facility] CenterCompromedica [facility] on above:Performed By: #### LIPID, CMP, T4, TSH, FT3 #### [facility] [address] [place] [address] Dr. Mendel Reddy [Catalytic activity/Vol]25 U/QWmfrmi53-10Bti [facility] CenterComment on above:Performed By: #### LIPID, CMP, T4, TSH, FT3 #### [facility] [address] [place] [address] Dr. Mendel Diallo gap [Moles/Vol]14.0 mmol/LNormalThe [facility] Comment on above:Performed By: #### LIPID, CMP, T4, TSH, FT3 #### [facility] [address] [place] [address] Dr. Mendel Mills [Catalytic activity/Vol]16 U/SInduum06-12Cnu [facility] on above:Performed By: #### LIPID, CMP, T4, TSH, FT3 #### [facility] [address] [place] [address] Dr. Mendel HerronBilirubin [Mass/Vol]0.6 mg/dLNormal0.2-1.0[facility] Comment on above:Performed By: #### LIPID, CMP, T4, TSH, FT3 #### [facility] [address] [place] [address] Dr. Mendel HerronCalcium [Mass/Vol]9.3 mg/dLNormal8.5-10.1[facility] Comment on above:Performed By: #### LIPID, CMP, T4, TSH, FT3 #### [facility] [address] [place] [address] Dr. Mendel HerronChloride [Moles/Vol]103 mmol/LTyzbrk57-626Dei [facility] Comment on above:Performed By: #### LIPID, CMP, T4, TSH, FT3 #### [facility] [address] [place] [address] Dr. Mendel HerronCO2 [Moles/Vol]27.3 mmol/TOifxtu22.0-32.0[facility] Comment on above:Performed By: #### LIPID, CMP, T4, TSH, FT3 #### [facility] [address] [place] [address] Dr. Mendel HerronCreatinine [Mass/Vol]0.71 mg/dLNormal0.55-1.02[facility] HospitalComment on above:Performed By: #### LIPID, CMP, T4, TSH, FT3 #### [facility] [address] [place] [address] Dr. Mendel SamaniegoGFR-AF PERUVIAN>60Normal>=60[facility] CenterComment on above:Performed By: #### LIPID, CMP, T4, TSH, FT3 #### [facility] [address] [place] [address] Dr. Mendel Cruz-NON AF PERUVIAN>60Normal>=60[facility] HospitalComment on above:Performed By: #### LIPID, CMP, T4, TSH, FT3 #### [facility] [address] [place] [address] Dr. Mendel HerronGlobulin (S) [Mass/Vol]4.3 g/dLNormalThe [facility] CenterComment on above:Performed By: #### LIPID, CMP, T4, TSH, FT3 #### [facility] [address] [place] [address] Dr. Mendel HerronGlucose [Mass/Vol]102 mg/qAAxznfd57-189DrcTuscarawas Hospital Comment on above:Performed By: #### LIPID, CMP, T4, TSH, FT3 #### [facility] [address] [place] [address] Dr. Mendel HerronPotassium [Moles/Vol]4.3 mmol/LNormal3.5-5.1[facility] Comment on above:Performed By: #### LIPID, CMP, T4, TSH, FT3 #### [facility] [address] [place] [address] Dr. Mendel HerronProtein [Mass/Vol]8.0 g/dLNormal6.4-8.2[facility] Comment on above:Performed By: #### LIPID, CMP, T4, TSH, FT3 #### [facility] [address] [address] [address] Mendel HerronSodium [Moles/Vol]140 mmol/WChumif788-943Cvx [facility] Comment on above:Performed By: #### LIPID, CMP, T4, TSH, FT3 #### [facility] [address] [place] [address] Dr. Mendel HerronUrea nitrogen [Mass/Vol]19.0 mg/dLCritically high7.0-18.0[facility] HospitalComment on above:Performed By: #### LIPID, CMP, T4, TSH, FT3 #### [facility] [address] [address] [address] Mendel Salazar nitrogen/Creatinine [Mass ratio]26.8 mg/mgNormalThe [facility] CenterComment on above:Performed By: #### LIPID, CMP, T4, TSH, FT3 #### [facility] [address] [place] [address] Dr. Mendel HerornCovid-19 PCR ([facility]VD[address] [facility] L[facility])on 75-32-4518LDUB-CoV-2 (COVID-19) RNA DEIRDRE+probe Ql (Unsp spec)Not detectedNormalNOT DETECTEDThe [facility] Comment on above:Result Comment: This test is not yet approved or cleared by the [place] FDA. When there are no FDA-approved or cleared tests available, and other criteria are met, FDA can make tests available under an emergency access mechanism called an Emergency Use Authorization (EUA). The EUA for this test is supported by the [place] Consultant of Health and Human Service's (HHS's) declaration that circumstances exist to justify the emergency use of in vitro diagnostics for the detection and/or diagnosis of the virus that causes COVID- 19. This EUA will remain in effect (meaning [...] of clinical signs and symptoms consistent with SARS-CoV-2.Performed By: #### CVDTB #### [facility] [address] [place] [address] Dr. Mendel Quiroz AND [facility] 22-03-3316JYBAKILJHOUSDMemorial Health System [facility] on above:Result Comment: Negative for Flu A protein angiten. Infection due to Flu A cannot be ruled out. FluA angiten in the sample may be below the detection limit of the test.Performed By: #### LIPID, CMP, T4, TSH, FT3 #### [facility] [address] [place] [address] Dr. Mendel GarridoRICKIE [facility] on above: Result Comment: Negative for Flu B protein antigen. Infection due to Flu B cannot be ruled out. FluB antigen in the sample may be below the detection limit of the test.Performed By: #### LIPID, CMP, T4, TSH, FT3 #### [facility] [address] [place] [address] Dr. Mendel Quiroz AGNegativeNormalNEGATIVE SEE COMMENTThe [facility] on above:Performed By: #### LIPID, CMP, T4, TSH, FT3 #### [facility] [address] [place] [address] Dr. Mendel Fuchs AGNegativeNormalNEGATIVE SEE COMMENTThe [facility] on above:Performed By: #### LIPID, CMP, T4, TSH, FT3 #### [facility] [address] [place] [address] Dr. Mendel Lancaster-19 PCR (CVDTB)on 14-09-2375IRMZ-CoV-2 (COVID-19) RNA DEIRDRE+probe Ql (Unsp spec)Not detectedNormalNOT DETECTEDThe [facility] Comment on above:Result Comment: This test is not yet approved or cleared by the [place] FDA. When there are no FDA-approved or cleared tests available, and other criteria are met, FDA can make tests available under an emergency access mechanism called an Emergency Use Authorization (EUA). The EUA for this test is supported by the Virtualization Consultant of Health and Human Service's (HHS's) declaration that circumstances exist to justify the emergency use of in vitro diagnostics for the detection and/or diagnosis of the virus that causes COVID- 19. This EUA will remain in effect (meaning [...] of clinical signs and symptoms consistent with SARS-CoV-2.Performed By: #### LIPID, CMP, T4, TSH, FT3 #### [facility] [address] [place] [address] Dr. Mendel HerronINFLNURIANZA A AND B AGon [id number] Clinic Lutheran Hospitalment on above:Result Comment: Negative for Flu A protein angiten. Infection due to Flu A cannot be ruled out. FluA angiten in the sample may be below the detection limit of the test.Performed By: #### LIPID, CMP, T4, TSH, FT3 #### [facility] [address] [place] [address] [address] [address] Mendel HerronINFLUBNEGTuscarawas Hospital on above: Result Comment: Negative for Flu B protein antigen. Infection due to Flu B cannot be ruled out. FluB antigen in the sample may be below the detection limit of the test.Performed By: #### LIPID, CMP, T4, TSH, FT3 #### [facility] [address] [address] [address] Mendel Quiroz AGNegativeNormalNEGATIVE SEE COMMENTThe [facility] CenterComment on above:Performed By: #### LIPID, CMP, T4, TSH, FT3 #### [facility] [address] [address] [address] Mendel Fuchs AGNegativeNormalNEGATIVE SEE COMMENTThe [facility] CenterComment on above:Performed By: #### LIPID, CMP, T4, TSH, FT3 #### [facility] [address] [address] [address] Mendel HerronINTERNAL CONTROLSWithin Normal LimitsNormalWithin Normal Limits The [facility] CenterComment on above:Performed By: #### LIPID, CMP, T4, TSH, FT3 #### [facility] [address] [address] [address] Mendel HerronComprehensive Metabolic Empon 38-27-6966Uptuksh [Mass/Vol]3.7 g/dLNormal3.2-5.5FThe Christ HospitalComment on above:Performed By: #### EBS CMP, EBS LIPID #### [facility] [address] [place] [address] USAAlbumin/Globulin [Mass ratio]1.0 {ratio}[facility] HospitalComment on above:Performed By: #### EBS CMP, EBS LIPID #### [facility] [address] [place] [address] USAALP [Catalytic activity/Vol]159 U/ASdoq93-37KyzdgcvpzGalion HospitalComment on above:Performed By: #### EBS CMP, EBS LIPID #### [facility] [address] [place] [address] USAALT [Catalytic activity/Vol]28 U/AOdxnaj78-80WnlesljtqGalion HospitalComment on above:Performed By: #### EBS CMP, EBS LIPID #### [facility] [address] [place] [address] USAAST [Catalytic activity/Vol]27 U/GXarfzl01-83ThqyvuecqGalion HospitalComment on above:Performed By: #### EBS CMP, EBS LIPID #### [facility] [address] [place] [address] USABilirubin [Mass/Vol]1.2 mg/dLNormal0.3-1.2FThe Christ HospitalComment on above:Performed By: #### EBS CMP, EBS LIPID #### [facility] [address] [place] [address] USACalcium [Mass/Vol]9.2 mg/dLNormal8.2-10.2FThe Christ HospitalComment on above:Performed By: #### EBS CMP, EBS LIPID #### [place] [address] USAChloride [Moles/Vol]100 mmol/WBaiplw19-554DxhkgpupiGalion HospitalComment on above:Performed By: #### EBS CMP, EBS LIPID #### [facility] [address] [place] [address] USACO2 [Moles/Vol]20.6 mmol/LLow22.0-30.0[facility] HospitalComment on above:Performed By: #### EBS CMP, EBS LIPID #### [place] [address] USACreatinine [Mass/Vol]0.57 mg/dLNormal0.44-1.03[facility] HospitalComment on above:Performed By: #### EBS CMP, EBS LIPID #### [facility] [address] [place] [address] USAEstimated GFR ( Ni> 60NormNorwalk Memorial HospitalComment on above:Result Comment: GFR estimated reference range: According to KDOQI guidelines, <60 ml/min/1.73m2 is sufficient to diagnose a patient with chronic kidney disease.Performed By: #### EBS CMP, EBS LIPID #### [facility] [address] [place] [address] USAEstimated GFR (Non- Am> 60NormNorwalk Memorial HospitalComment on above:Performed By: #### EBS CMP, EBS LIPID #### [facility] [address] [place] [address] USAGlobulin (S) [Mass/Vol]3.7 g/dLNormalGalion HospitalComment on above:Performed By: #### EBS CMP, EBS LIPID #### [facility] [address] [place] [address] USAGlucose [Mass/Vol]100 mg/kRMxzqyb35-038YqulqysqdGalion HospitalComment on above:Performed By: #### EBS CMP, EBS LIPID #### [facility] [address] [place] [address] USAPotassium [Moles/Vol]3.9 mmol/LNormal3.5-5.1FThe Christ HospitalComment on above:Performed By: #### EBS CMP, EBS LIPID #### [facility] [address] [place] [address] USAProtein [Mass/Vol]7.4 g/dLNormal6.1-7.9[facility] HospitalComment on above:Performed By: #### EBS CMP, EBS LIPID #### [facility] [address] [place] [address] USASodium [Moles/Vol]135 mmol/QSpa286-336BnrvtqfyhGalion HospitalComment on above:Performed By: #### EBS CMP, EBS LIPID #### [facility] [address] [place] [address] USAUrea nitrogen [Mass/Vol]12 mg/dLNormal9-23Gal[facility] HospitalComment on above:Performed By: #### EBS CMP, EBS LIPID #### [facility] [address] [place] [address] USALipid Profileon 37-81-3450Srwuveuonzo [Mass/Vol]213 mg/dL Cvfv352-303TxbqvanflGalion HospitalComment on above:Result Comment: Chol less than 200 mg/dl low risk Chol 201-239 mg/dl borderline risk Chol 240 mg/dl and greater high riskPerformed By: #### EBS CMP, EBS LIPID #### [facility] [address] [place] [address] USACholesterol in HDL [Mass/Vol]36 mg/vFPzzzks94-12RpygklkpmGalion HospitalComment on above:Result Comment: HDL CHOL ATP-III CLASSIFICATION Cardiovascular Risk HDL > or equal to 60 mg/dL LOW HDL < 40 mg/dL HIGHPerformed By: #### EBS CMP, EBS LIPID #### [facility] [address] [id number] USACholesterol.total/Cholesterol in HDL [Mass ratio]5.9 {ratio}Normal<5.0Galion HospitalComment on above:Result Comment: PERFORMED BY: [place] [id number] PATHOLOGIST TANK SETTER MARIBEL AGUILLON M.D.Performed By: #### EBS CMP, EBS LIPID #### [facility] [address] [place] [address] USALDL Cholesterol,Qknbjgnekl422 mg/dLHigh0-100Gal[facility] HospitalComment on above:Result Comment: LDL ATP III CLASSIFICATION LDL less than 100 mg/dL Optimal LDL 100-129 mg/dL Near or above optimal LDL 130-159 mg/dL Borderline high LDL 160-189 mg/dL High LDL greater than 189 mg/dL Very highPerformed By: #### EBS CMP, EBS LIPID #### [facility] [address] [id number] USATriglyceride w/Rantlo293 mg/oTLzsvwh60-260IvzrlrtcfGalion HospitalComment on above:Result Comment: TRIG ATP III CLASSIFICATION TRIG less than 150 mg/dL Normal TRIG 150-199 mg/dL Borderline high TRIG 200-500 mg/dL High TRIG greater than 500 mg/dL Very high Standard traceable to the Center for Disease Conrtrol and Prevention (CDC) test method.Performed By: #### EBS CMP, EBS LIPID #### [facility] [address] [id number] USAVLDL HFFUCUFZWCB18 mg/dLNoHarrison Community HospitalComment on above:Performed By: #### EBS CMP, EBS LIPID #### [facility] [address] [place] [address] USACovid-19 PCR (CVDTBH)on [id number]-CoV-2 (COVID-19) RNA DEIRRDE+probe Ql (Unsp spec)DetectedCritically abnormalNOT DETECTEDThe [facility] on above:Result Comment: This test is not yet approved or cleared by the [place] FDA. When there are no FDA-approved or cleared tests available, and other criteria are met, FDA can make tests available under an emergency access mechanism called an Emergency Use Authorization (EUA). The EUA for this test is supported by the [place] of Health and Human Service's declaration that circumstances exist to justify the emergency use of in vitro diagnostics for the detection and/or diagnosis of the virusthat causes COVID-19. This EUA will remain in effect for the duration of the COVID-19 declaration ju stifying emergency of IVDs, unless it is terminated or revoked by the FDA (after which the test mayno longer be used).Performed By: #### CVDTBH #### [facility] [address] [place] [address] Dr. Mendel Quiroz AND [facility] 35-05-1048LRZTAPCLGOQSAMemorial Health System [facility] on above:Result Comment: Negative for Flu A protein angiten. Infection due to Flu A cannot be ruled out. FluA angiten in the sample may be below the detection limit of the test.Performed By: #### LIPID, CMP, T4, TSH, FT3 #### [facility] [address] [place] [address] Dr. Mendel Davis [facility] on above: Result Comment: Negative for Flu B protein antigen. Infection due to Flu B cannot be ruled out. FluB antigen in the sample may be below the detection limit of the test.Performed By: #### LIPID, CMP, T4, TSH, FT3 #### [facility] [address] [place] [address] Dr. Mendel Quiroz AGNegativeNormalNEGATIVE SEE COMMENTThe [facility] on above:Performed By: #### LIPID, CMP, T4, TSH, FT3 #### [facility] [address] [place] [address] Dr. Mendel Fuchs AGNegativeNormalNEGATIVE SEE COMMENTThe [facility] CenterComment on above:Performed By: #### LIPID, CMP, T4, TSH, FT3 #### [facility] [address] [place], [place] [address] Dr. Mendel eHrronINTERNAL CONTROLSWithin Normal LimitsNormalWithin Normal Limits The [facility] CenterComment on above:Performed By: #### LIPID, CMP, T4, TSH, FT3 #### [facility] [address] [place], [place] [address] Dr. Mendel HerronCardiovascular Lab Reporton [id number] Lab Report [facility] Patient Name: [facility] S MR #: [id number] Department of Physician: Curtis Gr MD Medicine Service Date: 08/18/2021 Division of Birthdate: 1970 Cardiology Room #: [facility] Cardiovascular Services [address] [address] Cardiovascular Laboratory Report ATRIAL FLUTTER ABLATION AND LOOP IMPLANT PROCEDURE NOTE DATE OF PROCEDURE: 08/18/2021 PERFORMING PHYSICIAN: Dr. Curtis Gr INDICATIONS FOR PROCEDURE: 1. History of symptomatic [...] to stop the ab (more content not included)...Normal The [facility] SystemANA Antinuclear Antibodieson 04-23-2021 Antinuclear Abs, IFANegativeNormal.[facility] HospitalComment on above:Result Comment: Negative <1:80 Borderline 1:80 Positive >1:80 ICAP nomenclature: AC-0 For more information about Hep-2 cell patterns use ANApatterns.org, the official website for the International Consensus on Antinuclear Antibody (BILL) Patterns (ICAP). Performed at: - [facility] [id number] Crime Scene Investigator: Ger Yen PhD, Phone: [phone] PERFORMED BY: [place] [id number] PATHOLOGIST TANK SETTER MARIBEL AGUILLON M.D.Performed By: #### ESR, CRP, CBC, CREAT #### [address] #### BILL #### [facility] ,C-Reactive Proteinon 83-41-9787H-Reactive Protein0.7 mg/dLNormal0.0-1.0 [facility] HospitalComment on above:Result Comment: PERFORMED BY: [place] [id number] PATHOLOGIST TANK SETTER MARIBEL AGUILLON M.D.Performed By: #### ESR, CRP, CBC, CREAT #### [address] #### BILL #### [facility] ,Complement C3on 73-40-6979Wgmgolcqgi C3170 mg/bGQfuh82-237YmymawmmcGalion HospitalComment on above:Result Comment: Performed at: - [facility] [id number] Crime Scene Investigator: Ger Yen PhD, Phone: [phone] By: #### ADDONUAPLUS #### [address] #### CH50, C3, C4 #### [facility] ,Complement C4on 88-41-7969Wbivbuzmdc C414 mg/mRJauixr12-77KszunnudfGalion HospitalComment on above:Performed By: #### ADDONUAPLUS #### [address] #### CH50, C3, C4 #### [facility] ,Complement Total (CH50)on 75-96-3400Puvjevpjhe Total (CH50)>60Normal>41 [facility] HospitalComment on above:Result Comment: Age Male Female 1 - 30 [...] out of range values. Performed at: - [facility] [id number] Crime Scene Investigator: Ger Yen PhD, Phone: [phone] PERFORMED BY: [place] [id number] PATHOLOGIST TANK SETTER MARIBEL AGUILLON M.D.Performed By: #### EBS CMP, EBS LIPID #### [place] [address] USAComplete Blood Count Auto Diffon 60-01-2955Zemgxqrkd (Bld) [#/Vol]0.1 10*3/uLNormal0.0-0.2FThe Christ HospitalComment on above:Performed By: #### ESR, CRP, CBC, CREAT #### [place] [address] [place] #### BILL #### [facility] ,Basophils/100 WBC (Bld)0.7 %Normal.[facility] HospitalComment on above:Performed By: #### ESR, CRP, CBC, CREAT #### [place] [address] [place] #### BILL #### [facility] ,Eosinophils (Bld) [#/Vol]0.1 10*3/uLNormal0.0-0.45[facility] HospitalComment on above:Performed By: #### ESR, CRP, CBC, CREAT #### [place] [address] [place] #### BILL #### [facility] ,Eosinophils/100 WBC (Bld)0.5 %Normal.[facility] HospitalComment on above:Performed By: #### ESR, CRP, CBC, CREAT #### [place] [address] [place] #### BILL #### [facility] ,Erythrocyte distribution width (RBC) [Ratio]18.0 %High11.9-15.3FThe Christ HospitalComment on above:Performed By: #### ESR, CRP, CBC, CREAT #### [place] [address] [place] #### BILL #### [facility] ,Hematocrit (Bld) [Volume fraction]31.6 %Low34.0-46.4FThe Christ HospitalComment on above:Performed By: #### ESR, CRP, CBC, CREAT #### [address] [place] [address] [place] #### BILL #### [facility] ,Hemoglobin (Bld) [Mass/Vol]9.8 g/dLLow11.8-15.4FThe Christ HospitalComment on above:Performed By: #### ESR, CRP, CBC, CREAT #### [address] #### BILL #### [facility] ,Lymphocytes (Bld) [#/Vol]1.7 10*3/uLNormal1.00-4.8[facility] HospitalComment on above:Performed By: #### ESR, CRP, CBC, CREAT #### [address] #### BILL #### [facility] ,Lymphocytes/100 WBC (Bld)15.0 %Normal.[facility] HospitalComment on above:Performed By: #### ESR, CRP, CBC, CREAT #### [address] #### BILL #### [facility] ,MCH (RBC) [Entitic mass]24.8 mxMlekhu74.7-34.3FThe Christ Hospital Comment on above:Performed By: #### ESR, CRP, CBC, CREAT #### [place] [address] [place] #### BILL #### [facility] ,MCV (RBC) [Entitic vol]80.1 oKPwgkqg22-682EqskutglkGalion Hospital Comment on above:Performed By: #### ESR, CRP, CBC, CREAT #### [place] [address] [place] #### BILL #### [facility] ,Mean Corpuscular HGB Conc31.0 g/dLLow32.0-35.0[facility] Comment on above:Performed By: #### ESR, CRP, CBC, CREAT #### [facility] [address] [place] [address] #### BILL #### [facility] ,Monocytes (Bld) [#/Vol]0.5 10*3/uLNormal0.0-0.8[facility] HospitalComment on above:Performed By: #### ESR, CRP, CBC, CREAT #### [place] [address] [place] #### BILL #### [facility] ,Monocytes/100 WBC (Bld)4.6 %Normal.[facility] HospitalComment on above:Performed By: #### ESR, CRP, CBC, CREAT #### [address] #### BILL #### [facility] ,Neutrophils (Bld) [#/Vol]9.1 10*3/uLHigh1.8-7.7FThe Christ HospitalComment on above:Performed By: #### ESR, CRP, CBC, CREAT #### [place] [address] [place] #### BILL #### [facility] ,Neutrophils/100 WBC (Bld)79.2 %Normal.[facility] HospitalComment on above:Performed By: #### ESR, CRP, CBC, CREAT #### [place] [address] [place] #### BILL #### [facility] ,Nucleated RBC/100 WBC (Bld) [Ratio]0.1 %Normal0-0.5FThe Christ HospitalComment on above:Performed By: #### ESR, CRP, CBC, CREAT #### [place] [address] [place] #### BILL #### [facility] ,Platelet mean volume (Bld) [Entitic vol]8.3 fLNormal6.3-10.7FThe Christ HospitalComment on above:Performed By: #### ESR, CRP, CBC, CREAT #### [facility] [address] [place] [address] [place] #### BILL #### [facility] ,Platelets (Bld) [#/Vol]336 10*3/iEUfemrx542-344KpoqdkfxyGalion HospitalComment on above:Performed By: #### ESR, CRP, CBC, CREAT #### [facility] [address] [place] [address] [place] #### BILL #### [facility] ,RBC (Bld) [#/Vol]3.94 10*6/uLNormal3.60-5.00[facility] Comment on above:Performed By: #### ESR, CRP, CBC, CREAT #### [place] [address] [place] #### BILL #### [facility] ,WBC (Bld) [#/Vol]11.5 10*3/uLHigh4.5-11.0[facility] Comment on above:Performed By: #### ESR, CRP, CBC, CREAT #### [place] [address] [place] #### BILL #### [facility] ,Creatinineon 42-47-2283Lwyxyjemer [Mass/Vol]0.75 mg/dLNormal0.44-1.03[facility] HospitalComment on above:Performed By: #### ESR, CRP, CBC, CREAT #### [place] [address] [place] #### BILL #### [facility] ,Estimated GFR ( Ni> 60NoHarrison Community Hospital Comment on above:Result Comment: GFR estimated reference range: According to KDOQI guidelines, <60 ml/min/1.73m2 is sufficient to diagnose a patient with chronic kidney disease.Performed By: #### ESR, CRP, CBC, CREAT #### [facility] [address] [place] [address] #### BILL #### [facility] ,Estimated GFR (Non- Am> 60[facility] Methodist HospitalComment on above:Performed By: #### ESR, CRP, CBC, CREAT #### [facility] [address] [place] [address] [place] #### BILL #### [facility] ,Dipstick and Microscopicon 82-15-6055Aipxcperrn (U)ClearNormalClearGalion HospitalComment on above:Order Comment: Name Collection Type:: Clean-Voided MidstreamPerformed By: #### ADDONUAPLUS #### [address] #### CH50, C3, C4 #### [facility] ,Bacteria,UrineNone SeenNormalNone SeenGalion HospitalComment on above:Order Comment: Name Collection Type:: Clean-Voided MidstreamPerformed By: #### ADDONUAPLUS #### [address] #### CH50, C3, C4 #### [facility] ,Bilirubin,UrineNegativeNormalNegativeGalion HospitalComment on above:Order Comment: Name Collection Type:: Clean-Voided MidstreamPerformed By: #### ADDONUAPLUS #### [place] [address] [place] #### CH50, C3, C4 #### [facility] ,Color (U)YellowNormalYellowGalion HospitalComment on above: Order Comment: Name Collection Type:: Clean-Voided MidstreamPerformed By: #### ADDONUAPLUS #### [place] [address] [place] #### CH50, C3, C4 #### [facility] ,Glucose Ql (U)100 mg/dLHenry County HospitalComment on above:Order Comment: Name Collection Type:: Clean-Voided MidstreamPerformed By: #### ADDONUAPLUS #### [address] #### CH50, C3, C4 #### [facility] ,Hyaline Casts,Rcyex9-5Mpiyek1-4UksrabtlkGalion HospitalComment on above:Order Comment: Name Collection Type:: Clean-Voided MidstreamResult Comment: PERFORMED BY: [place] [id number] PATHOLOGIST TANK SETTER MARIBEL AGUILLON M.D.Performed By: #### ADDONUAPLUS #### [address] #### CH50, C3, C4 #### [facility] ,Ketones Ql (U)NegativeMercy Health Kings Mills HospitalComment on above:Order Comment: Name Collection Type:: Clean-Voided MidstreamPerformed By: #### ADDONUAPLUS #### [address] #### CH50, C3, C4 #### [facility] ,Leukocyte esterase Test strip Ql (U)NegativeMercy Health Kings Mills HospitalComment on above:Order Comment: Name Collection Type:: Clean- Voided MidstreamPerformed By: #### ADDONUAPLUS #### [address] #### CH50, C3, C4 #### [facility] ,Nitrite,UrineNegativeMercy Health Kings Mills HospitalComment on above:Order Comment: Name Collection Type:: Clean-Voided MidstreamPerformed By: #### ADDONUAPLUS #### [place] [address] [place] #### CH50, C3, C4 #### [facility] ,Occult Blood,UrineNegativeNormalNegativeGalion Hospital Comment on above:Order Comment: Name Collection Type:: Clean-Voided Midstream Performed By: #### ADDONUAPLUS #### [address] #### CH50, C3, C4 #### [facility] ,pH (U)5.0 [pH]Normal5.0-9.0Galion HospitalComment on above: Order Comment: Name Collection Type:: Clean-Voided MidstreamPerformed By: #### ADDONUAPLUS #### [address] #### CH50, C3, C4 #### [facility] ,Protein,UrineNegativeNormalNegUniversity Hospitals Cleveland Medical CenterComment on above:Order Comment: Name Collection Type:: Clean-Voided MidstreamPerformed By: #### ADDONUAPLUS #### [address] #### CH50, C3, C4 #### [facility] ,RBC,UrineNone SeenNormal0-4FThe Christ HospitalComment on above: Order Comment: Name Collection Type:: Clean-Voided MidstreamPerformed By: #### ADDONUAPLUS #### [facility] [address] [place] [address] #### CH50, C3, C4 #### [facility] ,Specificy [place],Urine1.050Iiugjx0.001-1.030[facility] Comment on above:Order Comment: Name Collection Type:: Clean-Voided Midstream Performed By: #### ADDONUAPLUS #### [address] #### CH50, C3, C4 #### [facility] ,Squamous Epithelial Cell,Wnepk1-0Lzgumy3-9ZyxqzjzhvThe Christ Hospital Comment on above:Order Comment: Name Collection Type:: Clean-Voided Midstream Performed By: #### ADDONUAPLUS #### [address] #### CH50, C3, C4 #### [facility] ,Urobilinogen,UrineNormalNormalNormalGalion HospitalComment on above:Order Comment: Name Collection Type:: Clean-Voided MidstreamPerformed By: #### ADDONUAPLUS #### [address] #### CH50, C3, C4 #### [facility] ,WBC LM.HPF (Urine sed) [#/Area]0 /[HPF]Normal0-4FThe Christ HospitalComment on above:Order Comment: Name Collection Type:: Clean-Voided MidstreamPerformed By: #### ADDONUAPLUS #### [address] #### CH50, C3, C4 #### [facility] ,Erythrocyte Sedimentation Rateon 80-80-8288RSE (Bld) [Velocity]55 mm/hHigh0-29 [place] HospitalComment on above:Result Comment: PERFORMED BY: [place] [id number] PATHOLOGIST TANK SETTER MARIBEL AGUILLON M.D.Performed By: #### ESR, CRP, CBC, CREAT #### [address] #### BILL #### [facility] ,BASIC METABOLIC PANELon 42-13-1278Vtkftwq [Mass/Vol]8.7 mg/dLNormal8.6-10.3The [facility] SystemComment on above:Order Comment: No: Do not add to previous drawPerformed By: #### 92752, 40298 #### [facility] [address] [place] [address], USAChloride [Moles/Vol]97 mmol/WLmx28-638Cdg [facility] SystemComment on above:Order Comment: No: Do not add to previous drawPerformed By: #### 37854, 75905 #### [facility] [address] [place] [address], USACO2 [Moles/Vol]36 mmol/WRqfk82-84Ddu [facility] SystemComment on above:Order Comment: No: Do not add to previous draw Performed By: #### 36731, 05483 #### [facility] [address] [place] [address], USACreatinine [Mass/Vol]0.74 mg/dLNormal0.60-1.20The [facility] SystemComment on above:Order Comment: No: Do not add to previous drawPerformed By: #### 94507, 17461 #### [facility] [address] [place] [address], USAGFR/1.73 sq M.predicted among blacks MDRD (S/P/Bld) [Vol rate/Area]mL/min/{1.73_m2}Normal>60The [facility] Comment on above:Order Comment: No: Do not add to previous drawPerformed By: #### 91253, 48455 #### [facility] [address] [place] [address], USAGFR/1.73 sq M.predicted among non-blacks MDRD (S/P/Bld) [Vol rate/Area]mL/min/{1.73_m2}Normal>60The [facility] Comment on above:Order Comment: No: Do not add to previous drawPerformed By: #### 62064, 68498 #### [facility] [address] [place] [address], USAGlucose [Mass/Vol]123 mg/iTXbsy70-936Fro [facility] SystemComment on above:Order Comment: No: Do not add to previous drawPerformed By: #### 82841, 48750 #### [facility] [address] [place] [address], USAPotassium [Moles/Vol]4.3 mmol/LNormal3.5-5.1The [facility] SystemComment on above:Order Comment: No: Do not add to previous drawPerformed By: #### 82475, 33198 #### [facility] [address] [place] [address], USASodium [Moles/Vol]139 mmol/WGjjkyr979-505Kah [facility] SystemComment on above:Order Comment: No: Do not add to previous drawPerformed By: #### 52822, 99424 #### [facility] [address] [place] [address], USAUrea nitrogen [Mass/Vol]24 mg/dLNormal7-25The [facility] SystemComment on above:Order Comment: No: Do not add to previous drawPerformed By: #### 71555, 85499 #### [facility] [address] [place] [address], USACBC COMPLETE BLOOD COUNTon 87-30-6788Xegtyxkhoov distribution width (RBC) [Ratio]16.8 %High11.5-15.0The [facility] SystemComment on above:Order Comment: No: Do not add to previous draw Performed By: #### 34311, 03335 #### [facility] [address] [place] [address], USAHematocrit (Bld) [Volume fraction]29.7 %Low36.0-45.0The [facility] SystemComment on above:Order Comment: No: Do not add to previous drawPerformed By: #### 94041, 77792 #### [facility] [address] [place] [address], USAHemoglobin (Bld) [Mass/Vol]8.9 g/dLLow12.0-15.0The [facility] SystemComment on above:Order Comment: No: Do not add to previous drawPerformed By: #### 13301, 08546 #### [facility] [address] [place] [address], [facility] (RBC) [Entitic mass]25.4 pgLow27.0-33.0The [facility] SystemComment on above:Order Comment: No: Do not add to previous drawPerformed By: #### 05717, 29554 #### [facility] [address] [place] [address], [facility] BO[facility] CITYHC (RBC) [Mass/Vol]30.0 g/dLLow32.0-35.0The [facility] SystemComment on above:Order Comment: No: Do not add to previous drawPerformed By: #### 18406, 97696 #### [facility] [address] [place] [address], [facility] BO[facility] CITYV (RBC) [Entitic vol]84.9 aSHttunb06.0-98.0The [facility] SystemComment on above:Order Comment: No: Do not add to previous drawPerformed By: #### 87786, 01076 #### [facility] [address] [place] [address], [facility]ARE FACILITYNucleated RBC/100 WBC (Bld) [Ratio]0 %Normal0-0The [facility] SystemComment on above:Order Comment: No: Do not add to previous drawPerformed By: #### 60331, 65559 #### [facility] [address] [place] [address], USAPLAT IFJ362 10*3/oKDwit351-867Llu [facility] SystemComment on above:Order Comment: No: Do not add to previous draw Performed By: #### 67747, 30725 #### [facility] [address] [place] [address], USARBC (Bld) [#/Vol]3.50 10*6/uLLow3.80-5.00The [facility] SystemComment on above:Order Comment: No: Do not add to previous drawPerformed By: #### 44420, 83950 #### [facility] [address] [place] [address], USAWBC (Bld) [#/Vol]16.54 10*3/uLHigh4.00-10.60The [facility] SystemComment on above:Order Comment: No: Do not add to previous drawPerformed By: #### 53170, 00527 #### [facility] [address] [facility] [address], USACardiovascular Lab Reporton [id number] Lab ReportUnSamaritan Hospital Patient Name: [facility] S MR #: [id number] Department of Physician: London Rodas M.D. Division of Service Date: 04/11/2021 Cardiology Birthdate: 1970 Adult Cardiovascular Room #: 5AB [id number] [place] [address] Cardiovascular Laboratory Report PROCEDURE PERFORMED: Transesophageal echocardiogram and cardioversion. INDICATION: Atrial flutter. FELLOW: Dunia Sierra MD PROCEDURE IN DETAIL: Informed consent was obtained from the patient after explaining the indication, risks, benefits, as well as alternatives. The patient understood and agreed, and signed the consent form. The patient was brought to the laboratory tester and transesophageal echocardiogram was performed, under conscious [...] throughout the procedure. Electronically Signed by: Xiao Vidales M.D. 04/28/2021 09:52 A Xiao Vidales M.D. I was present for the entire procedure. Date Dict: 04/11/2021/12:10 P/Dunia Sierra MD Date Trans: 04/11/2021 12:53 P/marixa DN_JN:[id number] cc: Phillip Burkett M.D. [address], [facility] [place] [address]SpbnqnErkSumma Health Wadsworth - Rittman Medical CenterMAGNESIUM BLOODon 38-11-2647Caolfboun [Mass/Vol]2.3 mg/dLNormal1.9-2.7The [facility] SystemComment on above:Order Comment: No: Do not add to previous drawPerformed By: #### 86959, 74724 #### [facility] [address] [facility] [place] [address], [facility] CARE FACILITYPOC GLUCOSE LABon 56-59-8290Mmcaumt [Mass/Vol]124 mg/dLHigh 70-100The [facility] SystemComment on above:Performed By: #### 83574, 93761 #### [facility] [address] [facility] [address], USATROPONIN-Ion 79-15-3908Evbjjheq I.cardiac [Mass/Vol]0.06 ng/mLHigh0.00-0.04The [facility] SystemComment on above:Order Comment: No: Do not add to previous drawResult Comment: REFERENCE RANGES: 0.00 - 0.04 ng/ml NORMAL 0.05 - 0.50 ng/ml INDETERMINATE > 0.50 ng/ml CONSISTENT WITH AN M.I.Performed By: #### 98506, 23386 #### [facility] [address] [facility]. [place]*BLOOD CULTUREon 04-10-2021*BLOOD CULTUREClinical Report: (D) Specimen: BLOOD CULTURE Collected: 04/10/2021 09:50 Status: Final Last Updated: 04/15/2021 11:28 (1) Right hand CULT RES (Final) No Growth Day 5Sum[facility] - Rittman Medical CenterComment on above: Order Comment: No: Do not add to previous drawPerformed By: #### 45849, 33736 #### [facility] [address]*BLOOD CULTUREClinical Report: (D) Specimen: BLOOD CULTURE Collected: 04/10/2021 09:50 Status: Final Last Updated: 04/15/2021 11:28 (1) Left hand CULT RES (Final) No Growth Day 5Sum[facility] - Rittman Medical CenterComment on above: Order Comment: No: Do not add to previous drawPerformed By: #### 04207, 58243 #### [facility] [address]*SARS-CoV-2 COVID-19on 41-18-8918JYJW-CoV-2 (COVID-19) RNA DEIRDRE+probe Ql (Unsp spec)Not detectedNormalNot DetectedThe [facility] SystemComment on above:Order Comment: No: Do not add to previous draw Performed By: #### 52854, 06196 #### [facility] [address]APTTon 71-82-4798tJNT Coag (Bld) [Time]23.4 sLow25.0-35.0 The [facility] SystemComment on above:Order Comment: No: Do not add to previous drawResult Comment: ALL RESULTS MUST BE INTERPRETED WITH RESPECT TO BLOOD DRAWING ARTIFACT OR DILUTION ERROR OF ANTICOAGULANT AT THE TIME OF SAMPLING. THE APTT SHOULD NOT BE USED TO MONITOR UNFRACTIONATED HEPARIN THERAPY, THIS LABORATORY NO LONGER HAS AN ESTABLISHED THERAPEUTIC RANGE BASED ON THE APTT. IT IS RECOMMENDED THAT THE UFH - HEPARIN ASSAY (ANTI-XA ACTIVITY) BE USED FOR THIS PURPOSE.Performed By: #### 34699, 77783 #### [facility] [address] [place] [address], USAaPTT Coag (Bld) [Time]23.2 sLow25.0-35.0The [facility] SystemComment on above:Order Comment: No: Do not add to previous drawResult Comment: ALL RESULTS MUST BE INTERPRETED WITH RESPECT TO BLOOD DRAWING ARTIFACT OR DILUTION ERROR OF ANTICOAGULANT AT THE TIME OF SAMPLING. THE APTT SHOULD NOT BE USED TO MONITOR UNFRACTIONATED HEPARIN THERAPY, THIS LABORATORY NO LONGER HAS AN ESTABLISHED THERAPEUTIC RANGE BASED ON THE APTT. IT IS RECOMMENDED THAT THE UFH - HEPARIN ASSAY (ANTI-XA ACTIVITY) BE USED FOR THIS PURPOSE.Performed By: #### 62043, 79900 #### [facility] [address] [place] [address], USABASIC METABOLIC PANELon 60-80-8212Fgcofyq [Mass/Vol]8.6 mg/dLNormal8.6-10.3The [facility] SystemComment on above:Order Comment: No: Do not add to previous drawPerformed By: #### 92956, 06566, 59486 #### [facility] [address] [place] [address], USAChloride [Moles/Vol]99 mmol/JWjjoxu94-477Ahq [facility] SystemComment on above:Order Comment: No: Do not add to previous drawPerformed By: #### 05273, 42140, 83762 #### [facility] [address] [place] [address], USACO2 [Moles/Vol]32 mmol/MXdlq81-27Aeh [facility] SystemComment on above:Order Comment: No: Do not add to previous draw Performed By: #### 57863, 41977, 29406 #### [facility] [address] [place] [address], USACreatinine [Mass/Vol]0.84 mg/dLNormal0.60-1.20The [facility] SystemComment on above:Order Comment: No: Do not add to previous drawPerformed By: #### 99601, 43064, 23774 #### [facility] [address] [place] [address], USAGFR/1.73 sq M.predicted among blacks MDRD (S/P/Bld) [Vol rate/Area]mL/min/{1.73_m2}Normal>60The [facility] Comment on above:Order Comment: No: Do not add to previous drawPerformed By: #### 77483, 54978, 11221 #### [facility] [address] [place] [address], USAGFR/1.73 sq M.predicted among non-blacks MDRD (S/P/Bld) [Vol rate/Area]mL/min/{1.73_m2}Normal>60The [facility] Comment on above:Order Comment: No: Do not add to previous drawPerformed By: #### 36983, 94262, 00332 #### [facility] [address] [place] [address], USAGlucose [Mass/Vol]117 mg/fFKnqp07-866Oxb [facility] SystemComment on above:Order Comment: No: Do not add to previous drawPerformed By: #### 27132, 45052, 55149 #### [facility] [address] [place] [address], USAPotassium [Moles/Vol]3.9 mmol/LNormal3.5-5.1The [facility] SystemComment on above:Order Comment: No: Do not add to previous drawPerformed By: #### 27378, 96662, 02384 #### [facility] [address] [place] [address], USASodium [Moles/Vol]139 mmol/KYsphhp250-319Fzt [facility] SystemComment on above:Order Comment: No: Do not add to previous drawPerformed By: #### 27578, 68093, 09066 #### [facility] [address] [place] [address], USAUrea nitrogen [Mass/Vol]19 mg/dLNormal7-25The [facility] SystemComment on above:Order Comment: No: Do not add to previous drawPerformed By: #### 33547, 19841, 65131 #### [facility] [address] [place] [address], USABNP (B-TYPE NATRIURETIC PEPTIDE)on 40-30-3196Olplwacncsi peptide B (Bld) [Mass/Vol]259 pg/mLHigh0-100The [facility] SystemComment on above:Order Comment: No: Do not add to previous drawResult Comment: Given the appropriate clinical setting a BNP result of >100 pg/mL indicates congestive heart failure.Performed By: #### 31505, 73167 #### [facility] [address] [facility] [place] [address], [facility]ARE FACILITYCBC W/DIFFon 16-63-1237DWB IMM GRANS1.1 10*3/uLHigh0.0-0.2 The [facility] SystemComment on above:Performed By: #### 65031 #### [facility] [address] [facility] [place] [address], USAABS NEUTROPHILS9.6 10*3/uLHigh1.6-7.6The [facility] SystemComment on above:Performed By: #### 56015 #### [facility] [address] [facility] [address], USAANISOMODERATENormalThe [facility] Comment on above:Performed By: #### 79609 #### [facility] [address] [facility] [place] [address], [facility]ARE FACILITYBasophils (Bld) [#/Vol]0.1 10*3/uLNormal0.0-0.2The [facility] SystemComment on above:Performed By: #### 41452 #### [facility] [address] [facility] [address], USABasophils/100 WBC (Bld)0.7 %Normal0.0-1.0The [facility] SystemComment on above:Performed By: #### 50161 #### [facility] [address] [facility] [place] [place] [address], USAEosinophils (Bld) [#/Vol]0.1 10*3/uLNormal0.0-0.5The [facility] SystemComment on above:Performed By: #### 94192 #### [facility] [address] [facility] [address], USAEosinophils/100 WBC (Bld)0.4 %Normal0.0-6.0The [facility] SystemComment on above:Performed By: #### 34043 #### [facility] [address] [facility] [place] [address], USAErythrocyte distribution width (RBC) [Ratio]16.5 %High 11.5-15.0The [facility] SystemComment on above:Performed By: #### 36875 #### [facility] [address] [facility] [address], USAHematocrit (Bld) [Volume fraction]31.2 %Low36.0-45.0The [facility] SystemComment on above:Performed By: #### 34315 #### [facility] [address] [facility] [address], USAHemoglobin (Bld) [Mass/Vol]9.0 g/dLLow12.0-15.0The [facility] SystemComment on above:Performed By: #### 41903 #### [facility] [address] [facility] [address], USAHYPOSLIGHTNormalThe [facility] Comment on above:Performed By: #### 86452 #### [facility] [address] [place] [address], USAIMMATURE GRANS6.8 %High0.0-1.0The [facility] SystemComment on above:Performed By: #### 60554 #### [facility] [address] [place] [id number], USALymphocytes (Bld) [#/Vol]4.4 10*3/uLHigh1.2-4.0The [facility] SystemComment on above:Performed By: #### 87217 #### [facility] [address] [place] [address], [facility]ARE FACILITYLymphocytes/100 WBC (Bld)26.4 %Myvmsd72.0-45.0The [facility] SystemComment on above:Performed By: #### 92601 #### [facility] [address] [place] [address], [facility]ENS[facility] CARE FACILITYMCH (RBC) [Entitic mass]25.3 pgLow27.0-33.0The [facility] SystemComment on above:Performed By: #### 17360 #### [facility] [address] [place] [address], [facility]ARE FACILITYMCHC (RBC) [Mass/Vol]28.8 g/dLLow32.0-35.0The [facility] SystemComment on above:Performed By: #### 17415 #### [facility] [address] [place] [address], [facility]ARE FACILITYMCV (RBC) [Entitic vol]87.6 tDYyoiii92.0-98.0The [facility] SystemComment on above:Performed By: #### 65539 #### [facility] [address] [place] [address], USAMonocytes (Bld) [#/Vol]1.3 10*3/uLHigh0.1-1.0The [facility] SystemComment on above:Performed By: #### 55312 #### [facility] [address] [place] [address], USAMONOS7.6 %Normal5.0-12.0The [facility] SystemComment on above:Performed By: #### 43068 #### [facility] [address] [place] [address], USANeutrophils/100 WBC (Bld)58.1 %Qsmmje31.0-72.0The [facility] SystemComment on above:Performed By: #### 43711 #### [facility] [address] [place] [address], USANucleated RBC/100 WBC (Bld) [Ratio]1 %High0-0The [facility] SystemComment on above:Performed By: #### 28260 #### [facility] [address] [place] [address], USAPLAT TRX926 10*3/xLOphf858-103Qxd [facility] SystemComment on above:Performed By: #### 76006 #### [facility] [address] [place] [address], USAPOIKSSt. Anthony's Hospital Comment on above:Performed By: #### 01168 #### [facility] [address] [place] [address], USAPOLYSSt. Anthony's Hospital Comment on above:Performed By: #### 13131 #### [facility] [address] [place] [address], USARBC (Bld) [#/Vol]3.56 10*6/uLLow3.80-5.00The [facility] SystemComment on above:Performed By: #### [id number] #### [facility] [address] [place] [address], USAWBC (Bld) [#/Vol]16.54 10*3/uLHigh4.00-10.60The [facility] SystemComment on above:Performed By: #### [id number] #### [facility] [address] [place] [address], USALIPID PROFILEon [id number] [Mass/Vol]161 mg/dL [id number] [facility] SystemComment on above:Result Comment: CHOLESTEROL REFERENCE RANGE: 20 YEARS AND OLDER CARDIOVASCULAR RISK Less than 200 mg/dl Low Risk 200 to 239 mg/dl Borderline Risk 240 mg/dl and greater High RiskPerformed By: #### [id number] #### [facility] [address] [place] [address], USACholesterol in HDL [Mass/Vol]61 mg/[id number] [facility] SystemComment on above:Result Comment: Slight variation in normal range could be due to gender and/or age. HDL CHOLESTEROL REFERENCE RANGE: 20 years and older Cardiovascular Risk > or =60 mg/dL Desirable 40 TO 59 mg/dL Low Risk <40 mg/dL High RiskPerformed By: #### [id number], [id number], [id number] #### [facility] [address] [place] [address], USACholesterol in LDL [Mass/Vol]28 mg/dLNormal0-130The [facility] SystemComment on above:Result Comment: LDL IS A CALCULATION LDL IS ONLY VALID IF THE TRIG IS LESS THAN 400.Performed By: #### 35933, 18134, 22918 #### [facility] [address] [place] [address], USACholesterol.total/Cholesterol in HDL [Mass ratio]2.6 {ratio}Normal.0-4.5The [facility] Health SystemComment on above: Performed By: #### 72584, 56819, 77276 #### [facility] [address] [place] [address], USANON-HDL PPOYJWCXCZC150 mg/dLNormalThe [facility] SystemComment on above:Performed By: #### 95381, 59091, 04031 #### [facility] [address] [place] [address], USATriglyceride [Mass/Vol]362 mg/rMPcwi13-227Bhv [facility] SystemComment on above:Result Comment: TRIGLYCERIDE REFERENCE RANGE: 20 YEARS AND OLDER CARDIOVASCULAR RISK LESS THAN 150 mg/dl LOW RISK 150 TO 199 mg/dl BORDERLINE RISK 200 mg/dl AND GREATER HIGH RISKPerformed By: #### 79642, 40733, 02858 #### [facility] [address] [place] [address], USAVLDL CHOL72 mg/dLHigh0-40The [facility] SystemComment on above:Performed By: #### 92011, 60637, 34898 #### [facility] [address] [place] [address], USAMAGNESIUM BLOODon 73-85-8755Vosqqxkze [Mass/Vol]2.4 mg/dL Normal1.9-2.7The [facility] SystemComment on above:Order Comment: No: Do not add to previous drawPerformed By: #### 51527, 63027, 90013 #### [facility] [address] [place] [address], [place]APOC GLUCOSE LABon 37-79-1980Aehszel [Mass/Vol]350 mg/dLHigh 70-100The [facility] SystemComment on above:Performed By: #### 63865, 40809 #### [facility] [address] [place] [address], USAGlucose [Mass/Vol]249 mg/oFXdnm69-736Bhr [facility] SystemComment on above:Performed By: #### 72343, 48505 #### [facility] [address] [place] [address], USAPROCALCITONINon 77-07-6795QLLDBSIJFHOKA5.09 ng/mLNormal 0.00-0.10The [facility] SystemComment on above:Order Comment: No: Do not add to previous drawResult Comment: Suspected Lower Respiratory Tract Infection: 0.1-0.25ng/mL- Low likelihood for bacterial infection;Antibiotics discouraged.* >0.25ng/mL- Increased likelihood bacterial infection;Antibiotics encouraged. Suspected Sepsis: Strongly consider initiating antibiotics in all unstable patients. 0.1-0.5ng/mL- Low likelihood for sepsis; Antibiotics discouraged.* >0.5ng/mL- Increased likelihood sepsis; Antibiotics encouraged. >2.0ng/mL- High risk of sepsis/septic shock; Antibiotics strongly encouraged. *Recommend retesting PCT within 6-12hours if clinically indicated and initial PCT<0.5ng/mLPerformed By: #### 01237, 53902 #### [address] [place] [address], [facility] CARE FACILITYPROTHROMBIN TIMEon 91-18-9665JFR Coag (PPP) [Relative time] 1.07 {INR}Normal0.91-1.16The [facility] SystemComment on above:Order Comment: No: Do not add to previous drawResult Comment: ACCCP RECOMMENDED INR FOR WARFARIN THERAPY ------- CONDITION INR PROPHYLAXIS OF VENOUS THROMBOSIS 2-3 (HIGH-RISK SURGERY) TREATMENT OF VENOUS THROMBOSIS 2-3 TREATMENT OF PULMONARY EMBOLISM 2-3 PREVENTION OF SYSTEMIC EMBOLISM: 2-3 ACUTE MYOCARDIAL INFARCTION TISSUE HEART VALVES VALVULAR HEART DISEASE ATRIAL FIBRILLATION RECURRENT SYSTEMIC EMBOLISM MECHANICAL HEART VALVE 2.5-3.5 FROM: ORAL ANTICOAGULANTS. MECHANISM OF ACTION, CLINICAL EFFECTIVENESS, AND OPTIMAL THERAPEUTIC RANGE. CHEST 1995;108:231S-246S.Performed By: #### 90167, 86699 #### [facility] [address] [place] [address], USAPT Coag (PPP) [Time]13.9 kMctspx48.3-14.8The [facility] Health SystemComment on above:Order Comment: No: Do not add to previous drawResult Comment: ALL RESULTS MUST BE INTERPRETED WITH RESPECT TO BLOOD DRAWING ARTIFACT OR DILUTION ERROR OF ANTICOAGULANT AT THE TIME OF SAMPLING.Performed By: #### 91129, 97442 #### [facility] [address] [place] [address], USATROPONIN-Ion 97-85-9439Xhmigkvy I.cardiac [Mass/Vol]0.07 ng/mLHigh0.00-0.04The [facility] SystemComment on above:Order Comment: No: Do not add to previous drawResult Comment: REFERENCE RANGES: 0.00 - 0.04 ng/ml NORMAL 0.05 - 0.50 ng/ml INDETERMINATE > 0.50 ng/ml CONSISTENT WITH AN M.I.Performed By: #### 91001, 98914, 31536 #### [facility] [address] [place] [address], USATroponin I.cardiac [Mass/Vol]0.07 ng/mLHigh0.00-0.04The [facility] SystemComment on above:Order Comment: No: Do not add to previous drawResult Comment: REFERENCE RANGES: 0.00 - 0.04 ng/ml NORMAL 0.05 - 0.50 ng/ml INDETERMINATE > 0.50 ng/ml CONSISTENT WITH AN M.I.Performed By: #### 30566, 07312, 35480 #### [facility] [address] [place] [address], USATSH3 WITH REFLEX FT4on 76-91-6716GMB 3RD GENERATION0.95 uIU/mLNormal0.34-5.60The [facility] SystemComment on above: Order Comment: Yes: Add to Previous draw if ablePerformed By: #### 52348 #### [facility] [address] [place] [address], USATSH 3RD GENERATION3.12 uIU/mLNormal0.34-5.60The [facility] Health SystemComment on above:Performed By: #### 18895, 39025, 33835 #### [facility] [address] [facility] [place] [address], USAUFH HEPARIN ASSAYon 80-37-9251PNSXLMRAVRQXNL HEPARIN>1.00 Critically high0.30-0.70The [facility] Health SystemComment on above: Result Comment: Result checked and called. Accurately read back by Haven Avila RN at 1122 per RN patient may have previously been given Eliquis. UFH = 1.36 for pharmacy use Rivaroxaban and Apixaban will interfere with the anti Xa assay used to monitor UFH and LMWH.Performed By: #### 13682, 25024 #### [facility] [address] [place] [address], USACardiovascular Lab Reporton 70-34-4306Kwdotqqdcotxtw Lab ReportUnSamaritan Hospital Patient Name: Antonio [facility] S MR #: [id number] Department of Physician: London Ross M.D. Division of Service Date: 01/30/2021 Cardiology Birthdate: 1970 Adult Cardiovascular Room #: [address] [address] Cardiovascular Laboratory Report FINAL IMPRESSIONS: 1. Moderately [...] 5. Follow up with Cardiology in the [facility] Cardiology office in the next 2 to 3 weeks. 6. Follow up with Dr. Burkett as scheduled. PROCEDURES: Ultrasound-guided access to the [...] right internal jugular vein was obtained. A 6-Swiss glide sheath was inserted without difficulty. A [...] Bear M.D. Date Trans: 01/30/2021 02:48 P/mmo DN_JN:[id number] cc: Phillip Burkett M.D. [address], [facility] [address]OkxvgjRhbSumma Health [facility] Vital Signs Date TimeVital SignValuePerforming DdjhnmwytDrbfpfsp40-43-6721 13:58-0400Blood Pressure LocationMichael NILL [phone]-Vfylv General Surgery Bwsphfuh54-20-0774 13:58-0400Diastolic blood fkdpmdal27 mm[Hg]Juan Miguel NILL 407-8663Zqbrqm-Guchp General Surgery Zznjjxtg49-12-9396 13:58-0400Heart rate72 /minMichael NILL [phone]-Lyfli General Surgery Qyxulwnf93-35-8638 13:58-0400Respiratory rate16 /minMichael NILL 704-6302Keaodb-Uayie General Surgery Mzcvzjwn25-68-3167 13:58-0400Systolic blood oqpjkwyc550 mm[Hg]Juan Miguel NILL 862-2661Fyaqcp-Zihhh General Surgery Vtfbalup87-44-4871 15:24-0500Blood Pressure LocationMichael NILL [facility] Surgery Monqfawb51-47-0307 15:24-0500Diastolic blood oxkochtb53 mm[Hg]Juan Miguel NILL [facility] Surgery Ssuxfjae58-55-2692 15:24-0500Heart rate 70 /minMichael NILL [facility] Surgery Cztcjmok07-78-3547 15:24-0500 Respiratory rate16 /minMichael NILL [facility] Surgery Zvgphvmg65-50-0064 15:24-0500Systolic blood lzotaoyr108 mm[Hg]Juan Miguel BRAD General [facility] [place] Encounters Encounter DateEncounter TypeCare ProviderFacilityStart: 05-15-2025 End: 10-47-6441grzcjsugrjMGBKParkview Health Bryan Hospitaltart: 48-63-4811zajlcbkhbuXYFHDoctors Hospitaltart: 04-86-3764zbprjktqvnFHLRS GRUBBUniTuscarawas Hospitaltart: 12-27-2024 End: 75-32-3275xprgpmnkpdTAEZParkview Health Bryan Hospitaltart: 10-26-2024 End: 99-51-4062vgmgbshdlxALWJIGC [facility] Hospitaltart: 84-03-6316thrzzzpxfmZUUJDoctors Hospitaltart: 09-12-2024 End: 17-60-4575oauzgztdsnZTBFParkview Health Bryan Hospitaltart: 38-30-5224tsnlhewmuqGTRMParkview Health Bryan Hospitaltart: 18-98-1777vimtfkpoxaLMGIParkview Health Bryan Hospitaltart: 04-19-2024 End: 40-23-6946ytlkjfqzazOiomift R NILLFacility:CD:[id number]: 04-04-2024 End: 40-50-6356kgzsbxrrhyIvdaqhv R NILLFacility:[facility] Hospitaltart: 04-04-2024 End: 39-68-6641Ufyhchb encounter procedureMichael R NILL [phone]-Djxhi General Surgery Neda Start: 11-17-2022 End: 60-52-0217hmsmsbqngoZYYQIG RODRIGUEZ .Facility:X5Opdjp: 10-28-2022 End: 03-42-4588thnxmwmnfuAF PHILLIP BURKETT .Facility:B0Qdgbe: 09-24-2022 End: 57-32-4367lzjdofklswQE PHILLIP HOY .Facility:K1Jgagi: 09-15-2022 End: 15-38-9850Yuxwtfo encounter procedureMichael R NILL General Surgery Nill/Said Neda Start: 09-09-2022 End: 69-18-8625wlxmyydoflCR PHILLIP HOY .Facility:S7Ibgkh: 08-20-2022 End: 03-31-7828hxfcryizduAT PHILLIP HOY .Facility:A9Zqqoe: 08-11-2022 End: 68-34-4812nuqjpoefppAT PHILLIP HOY .Facility:U9Uljrm: 08-09-2022 End: 76-27-6520ulgefbdzuwWFBJLL DIAB .Facility:M0Hmnyh: 08-06-2022 End: 70-36-2192pugllwptzoTX PHILLIP HOY .Facility:Y9Dtjlt: 08-05-2022 End: 16-78-9438dcttlspifoCY PHILLIP HOY .Facility:I4Rtqga: 07-16-2022 End: 34-07-2021nxewacsbtxJR PHILLIP HOY .Facility:L8Pnlge: 05-11-2022 End: 90-40-1131yysewmktqoFB PHILLIP HOY .Facility:E4Jaqrw: 12-02-2021 End: 22-97-8390mdlpqwwfdxJJ PHILLIP HOY .Facility:B9Gtigy: 04-10-2021 End: 55-85-6333Jjucrcuxfa and management of inpatientDOUGLAS HOYFacility:[facility] Start: 01-30-2021 End: 48-78-9864noqchnhsffBLKZ A ELTAHAWYFacility:[facility] Procedures DateProcedureProcedure DetailPerforming ClinicianStart: 55-31-8504Rsbkqzqggfk of Cardiac Rhythm, SingleXIAO Cardoza KHOURIStart: 38-59-5687GSPQVLMDHTDFDSO OF HEART WITH AORTA, TRANSESOPHAGEALABDELMONIEM MOUSTAFACesarean sectionMichael NILL Cesarean sectionMichael NILL Endoscopy of noseMichael NILL Excision of cyst of breastMichael NILL History of radiofrequency ablation operation for arrhythmiaMichael NILL Implantation of insertable loop recorderMichael NILL Ligation of fallopian tubeMichael NILL Plan of Treatment DateCare ActivityDetailAuthorStart: 80-27-4597ishgxbymtaMenqeengcpVkyqhidi:H1 Immunizations Immunization DateImmunizationNotesCare RocmedxnTpxtcrkm14-43-1212bqnwedpgt virus vaccine, unspecified formulationMichael NILL General Surgery Jmfawhpv76-89-1569HQAN-IhZ-8 (COVID-19) mRNA-1273 vaccineMichael NILL General Surgery Tpduggfn83-53-5442GAPR-GpW-9 (COVID-19) mRNA BNT-162b2 vaxMichael NILL [facility] Surgery [place]vueComment on above:Result Comment: 2022-09-03: [id number]-ZdD-0 (COVID-19) mRNA BNT-162b2 vax Juan Miguel NILL [facility]03-19-2021SARS-CoV-2 (COVID-19) mRNA BNT-162b2 vaxMichael NILL General Surgery [place]vueComment on above:Result Comment: 2022-09-03: SLF5005-93-9595QSVV-DpJ-9 (COVID-19) mRNA BNT-162b2 vax Juan Miguel NILL [facility] Payers DatePayer CategoryPayerPolicy [id number] [id number] [id number] 2.16.840.1.572597.3.57[id number] 2.16.840.1.559427.3.57[id number] 2.16.840.1.606842.3.57[id number] 2.16840.1.316855.3.57[id number] 2.16840.1.472890.3.57[id number] 2.16.840.1.264797.3.57[id number] 2.840.1.898872.3.57[id number] 2.16840.1.916207.3.57[id number] 2.840.1.897918.3.57[id number] 2.840.1.280979.3.57[id number] 2.16.840.1.252605.3.57[id number] 2.16840.1.100799.3.57[id number] 2.16840.1.965008.3.57[id number] 2.16840.1.377381.3.579.2.[id number] 2.16840.1.284369.3.579.[id number] 2.16.840.1.807348.3.579.2.12276-34-5657OtnjfdhHIY83239738548-23-8416Pjrhbau 833413691[id number] Social History DateTypeDetailFacilityStart: 09-15-2022 End: 08-34-5744Zuseejz smoking statusEx-smoker (finding)General Surgery [place] Tobacco smoking statusNeverGeneral Surgery BellevueSex Assigned [facility] Medical Equipment Procedure CodeEquipment CodeEquipment Original TextEquipment IdentifierDates lancets, glucometer, alcohol swabs, testing strips, insulin pen needles, Print Requisition, SupplyStart: 23-90-7382wgadyvu, glucometer, alcohol swabs, testing strips, insulin pen needles, Print Requisition, SupplyStart: 08-25-2021 Functional Status TxfyCtrcpsfnhoMilbhwTiguimrv08-95-7104Zrinzqapki StatusN/AFisher-Amistad General Surgery Ojzohezp12-05-5902Rbrbmcchhp StatusN/AGeneral Surgery [place] Clinical Notes 04-12-2021 to 05-15-2025 Note Date & BqxfZejbYndctwmn08-80-9344 NoteUT Cardiology Consult Note Reason for visit: Palpitations, follow up, s/p loop implant 07/2021, s/p flutter ablation 08/18/2021 05/15/2025 Loop data reveals evidence of T wave oversensing Ms. Pricing there will need to be VT. otherwise patient is doing well with no evidence of atrial fibrillation . Review of Systems Constitutional: Negative. 09/12/24 Patient here for 5 mo follow [...] trended upwards is a since seen in [place] [facility] 04/28/2023 and was diagnosed with vertigo [...] 08/18/2021 shows atrial fibrillation 07/[address] 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 Use of blood products discussed with patient who. Additional Equipment RequestsBlanchard Valley Health System04-10-2025 Note [facility]UnSub[facility] NoteCardiovascular Medicine [place] [facility] SUBJECTIVE Chief Complaint Patient presents with [...] trended upwards is a since seen in [place] [facility] 04/28/2023 and was diagnosed with vertigo [...] 08/18/2021 shows atrial fibrillation 07/[address] gr HPI: Patient here for 6 mo follow [...] diabetes, atrial flutter s (more content not included)...[facility]04[facility] NotePatient here for complaints of hypotension, dizziness. Patient denies chest pain, SOB, leg swelling. Patient states she feels really good expect for the dizzy spells. Review of Systems Musculoskeletal: Positive for joint pain. Neurological: Positive for dizziness and headaches.[facility]02-25-2025 NoteUT Cardiology Consult Note Reason for visit: Palpitations, [...] trended upwards is a since seen in [place] [facility] 04/28/2023 and was diagnosed with vertigo [...] 08/18/2021 shows atrial fibrillation 07/[address] gr HPI: Patient here for 6 mo follow [...] Insecurity: Not on file (more content not included)...[facility]09[facility] Note General Surgery Office/Clinic Note Chief Complaint consultation for RUQ pain and positive occult stool HPI Staff 53 year old female presents on consultation from Dr. Burkett for positive occult stool and RUQ pain. RUQ US completed 03/25 with cholelithiasis. Patient had previous EGD and colonoscopy planned for 10/14/22for complaint of abdominal pain, bloating and nausea- [...] and belching. Denies heartburn. Last colonoscopy completed 09/2009- normal. Patient on Eliquis for a.fib. History of [...] swallowing difficulties, no hearing loss, no ear infection(s),no nose bleeds. Cardiovascular: normal blood pressure, no [...] Depression Diabetes Diverticulosis Ep (more content not included)...[facility]Comment [facility] above: Result Comment: Electronically Signed By: BRAD DIAZ, Juan Miguel Rivera\Date and Time Signed: 04/04/24 17:16 [id number] NotePROCEDURE: XR CHEST 1 V DATE: 11/17/2022 10:42 [...] Electronically authenticated by: AUDREY BO Date: 2022-11-17 12:14[facility] CenterJnbbawrr14-42-0309 NoteMR#: [id number] I [facility] Pt. Name: Diana Alvarez Admitted: 04/10/2021 Discharged: 04/11/2021 Date of : 1970 Physician: Orlin Wick MD DISCHARGE SUMMARY PRIMARY DIAGNOSIS: New-onset atrial flutter with RVR. SECONDARY DIAGNOSES: 1. Pulmonary hypertension. 2. COPD. 3. Diabetes. HISTORY OF PRESENT ILLNESS: This patient is a 50-year-old female with past medical history of COPD, hypertension, and diabetes, who was sent from [facility] due to atrial flutter with [...] by: Orlin Wick MD 04/15/2021 08:24 A Orlin Wick MD Date Dict: 04/12/2021/03:07 P/Orlin Wick MD Date Trans: 04/12/2021 03:25 P/marixa DN_JN:[id number] cc: Phillip Burkett M.D. [address], [facility] [address]YknMemorial Health SystemEvaluation + Plan note No data available for this section [facility] [place] [facility] Discharge instructions No data available for this section General Surgery [place] Progress note No data available for this section General Surgery [place] Summary Purpose Family History No Family History [...] AUTHOR 09/10/2021 [facility] DATE CREATED AUTHOR AUTHOR'S ORGANIZ ATION 12/24/2021 [facility] DATE CREATED AUTHOR AUTHOR'S ORGANIZ ATION 11/20/2022 [facility] DATE CREATED AUTHOR AUTHOR'S ORGANIZ ATION 05/01/2024 [facility] DATE CREATED AUTHOR AUTHOR'S ORGANIZ ATION 05/16/2025 [facility] Patient Care team informatio n (unrecognized section and content) Personnel Name: Phillip Burkett MD Address: Address: [address] [place] [address] Personnel Name: Phillip Burkett MD Address: Address: [address] [place] [address] FOR RECORDS PERTAINING TO PATIENTS WHO ARE [...] BE BASED ON THE PRIMARY CLINICAL RECORDS. [employer] [facility]. provides no warranty or guarantee of the accuracy or completeness of information in this document.
[2025-06-24] MEDS: HYDROCODONE/ACET 5-325 MG TABLET 1 TAB PO (19:38)
== END 2025-06-24 20:20 | disposition home or self-care (01) ==
PROVIDERS: Emergency Provider Emergency Medicine; PCP Family Medicine
DX: S42.401A Unspecified fracture of lower end of right humerus, initial encounter for closed fracture (principal); S43.401A Unspecified sprain of right shoulder joint, initial encounter; W00.0XXA Fall on same level due to ice and snow, initial encounter
CPT/HCPCS: 73030; 73060; 73080; 73090; 99283

== ENCOUNTER 2025-07-05 08:43 | Outpatient (OUT) | payer OTHER, SELFPAY ==
--- OUTSIDE RECORDS SUMMARY | 2025-07-05 08:48 | XMS_ITS | Clinical Summary ---
Author Organization [facility] Address [address] [place] [address] Care Team Providers Care Circuit Board Inspector Name Role Phone Xavi Ann MD Primary Care Provider [phone] Allergies Active AllergyReactionsCriticalityNoted OhgsYjnhugmuZkecdwmv35/24/2023 Wyqnitymtbg60/18/2023 Medications MedicationSigDispense QuantityRefillsLast FilledStart DateEnd DateStatus pantoprazole [...] by mouth two times daily. 60 tablet 1104//691432/6Active potassium chloride CR (Klor-Con) 10 mEq ER [...] 304//Discontinued(Reorder) Active Problems ProblemNoted DateDiagnosed DateAcquired hallux bmdbtb8905/15/2025ute bronchitis 05/15/20251119Nefjgy68/28/0152Xzotfjdcfcz27/28/2025Diverticular disease of colon 05/15/20259032Jihklahssmvpyad86/28/2025Hiatal hzrrcf3005/15/2025Hypertensive heart psjenuh4405/15/2025Left shoulder pain05/15/20259435Pikwbcshl10/28/2025Pain in right foot05/15/20257614Lfrpk89/28/2025Vitamin D cfowhosufq51/28/2025arpal tunnel ogdzptac42/24/2025ontact deodohmwst72/24/9721Dyvlrgbv43/24/2025Paroxysmal atrial lzhbqwrqpgfy92/10/2025bdominal /24/2024holelithiasis 04/11/2024Generalized abdominal pain04/11/2024Nausea in adult04/11/2024Obesity due to excess vxjqbecg39/24/2024ositive fecal occult blood test04/11/2024 Patellar kmvkhuup62/MI 35.0-35.9,adult Cervical disc oppppjj33hronic diastolic heart failure hronic obstructive pulmonary ipjwkdw86 Cystic kidney phgikpr163Depressioniabetes iverticulosisFibrocystic disease of nlmena28outHistory of pericarditis IBS (irritable bowel syndrome)Insomnia Low back pain mapbielm73Migraines Mild aortic wfppworf55/12/737230/12/2023OSA (obstructive sleep apnea)AF (paroxysmal atrial fibrillation)01/27/2023 01/27/2023RUQ painure kjajadanytwcyqazuksu33/12/2023 01/27/2023ulmonary HTNericardial gwcawiek89/12/2023 01/27/2023HTN (hypertension)hronic /24/2023 Eycybgj0708/11/20228969Budzyhskgcox47/24/2023isorder of oitbvpnyqrb09/24/2023Syncope 08/11/2022trial pdunoik4804/28/2021hest pain11/09/2018Tobacco user11/09/2018 Kagrpvkuudxn88/14/2013Essential /07/3727Mxrqbosveslzkq07/07/2013 10/26/2023 Encounters DateTypeDepartmentCare IwyaXjftuomlhpx12/03/2025 12:35 PM ESTAncillary Procedure [facility] [address] [place] [address] Awareness of pewgafvevp70/03/2025Orders Only [facility] [address] [place] [address] Xiao Torres MD 06/08/2025Telephone [facility] [address] [place] [address] Maria L Pop MA 06/08/[facility]25[facility] [address] [place] [address] Maria L Pop MA Chronic diastolic heart failure (CMS/HCC)06/08/2025[facility] [address] [facility] [place] [address] Maria L Pop MA Chronic diastolic heart failure (CMS/HCC)05/15/2025 9:45 AM [facility] [address] [place] [address] Curtis Martinez MD S/P ablation of atrial flutter (Primary Dx)05/02/2025Orders Only [facility] [address] [place] [address] Xiao Torres MD 05/01/2025 9:45 AM EDTAncillary Procedure [facility] [address] [place] [address] Awareness of heartbeatsfrom Last 3 [...] and Gender Information ValueDate RecordedSex Assigned at DyleaIgqloq57/28/2025 11:48 AM EDTLegal Sex Ctqlxr7801/14/2022 10:34 PM EDTGender QjfucfteRsfcgn42/28/2025 11:48 AM EDTSexual OrientationHeterosexual or Lsuiwteq48/28/2025 11:48 AM EDT Last Filed Vital Signs Vital SignReadingTime TakenCommentsBlood Hvdiegnt925/7210 10:12 AM EDT Wexkq131505/15/2025 10:12 AM KFDXlsgohtcvcl84.7 ??C (98 ??F)05/10/2020 11:33 AM EDTRespiratory Hfub052312/27/2024 9:15 AM EDTOxygen Evcrrkqhgf04%05/15/2025 10:12 AM EDTInhaled Oxygen Concentration--Vbawry20.2 kg (135 lb)05/15/2025 10:12 AM ZKXMuzydj040.5 cm (5' 2 )05/15/2025 10:12 AM EDTBody Mass Index24.6905/15/2025 10:12 AM EDT Plan of Treatment Health MaintenanceDue DateLast DoneCommentsCT Dhdwslosayxx63/03/1969Colonoscopy 1968Colorectal Cancer Eenluigur39/03/1969Diabetes: Hemoglobin A1C 1968FIT-DNA1968FIT1968FOBT1968 0474Jvakgfxrytvdo88/03/1969 Diabetes: Retinopathy Stylayodi09/03/1979Depression Riqcojjrn93/03/1981Diabetes: Urine Protein Qkggojxwp59/03/1988Hepatitis B Vaccines (1 of 3 - 19+ 3-dose series)10/20/1987Pneumococcal Vaccine: Pediatrics (0 to 5 Years) and At-Risk Patients (6 to 64 Years) (1 of 2 - PCV)10/20/1987Pap Smear1989Cervical Cancer Cudbifcrj17/03/1999HPV/Xzwstr5510/19/19986210Qbcjrctmk23/03/2009Zoster Vaccines (1 of 2)2018COVID-19 Vaccine ( season)5010/29/2020, 10/25/2020, 10/04/2020Influenza Vaccine (#1)2025dult Qmdsmfs8107/24/2030 07/24/2020HIB VaccinesAged OutNo longer eligible based on [...] ImplantedTypeAreaManufacturerDevice IdentifierShelf Expiration DateModel / Serial / [id number] Implanted:08/18/2021 (Quantity not on file) Explanted:12/27/2024 by Curtis Martinez MD (Quantity not on file)Implantable Loop TojcbgtlIvszaK384 / [id number] / Monitor,Cardiac,Lux,[facility]xii+[facility] - [id number] - [id number] Implanted:Qty: 1 on 12/27/2024 by [facility]Implant[facility] Loop RecorderLeft: Chest[place] Sipqmmhjaa70/25/2026 12 / [id number] / Procedures Procedure NamePriorityDate/TimeAssociated DiagnosisCommentsCARDIAC DEVICE CHECK CHECK - WBXUMOKupvctk73/08/2025 10:42 AM EST Awareness of heartbeats CARDIAC DEVICE CHECK - REMOTE - LOOP RECORDER (ILR)Kbesaly3106/20/2025 12:00 AM ESTCARDIAC DEVICE CHECK CHECK - NEPDFDFcxjjiu56/20/2025 9:29 AM EDT Awareness of heartbeats CARDIAC DEVICE CHECK - REMOTE - LOOP RECORDER (ILR)Pxpuiij0305/02/2025 12:00 AM EDTfrom Last 3 Months Results * CARDIAC DEVICE CHECK - REMOTE - LOOP RECORDER (ILR) (06/25/2025 10:42 AM EST) Only the most recent of2 resultswithin the time period is included. Specimen (Source)Anatomical Location / LateralityCollection Method / Volume Collection TimeReceived Time Narrative Authorizing ProviderResult TypeResult StatusPagustavo Martinez [facility] IMPLANTABLE CARDIAC DEVICE PROCEDURESFinal ResultPerforming OrganizationAddressCity/State/ZIP Code Phone Number CPACS * Cardiac device check - Remote loop recorder (ILR) (06/20/2025 12:00 AM EST) Only the most recent of2 resultswithin the time period is included. Anatomical RegionLateralityModalityOtherSpecimen (Source)Anatomical Location / LateralityCollection Method / VolumeCollection TimeReceived Time06/20/2025 Narrative Authorizing ProviderResult TypeResult StatusXiao Torres [facility] IMPLANTABLE CARDIAC DEVICE PROCEDURESFinal Result from Last 3 Months Insurance Care Teams Team MemberRelationshipSpecialtyStart Date Xavi Ann MD [address] [facility] [address] [address] PCP - General08/11/22
--- OUTSIDE RECORDS SUMMARY | 2025-07-05 08:48 | XMS_ITS | Clinical Summary ---
Author Organization [facility] Address [address] [place] [address] Care Team Providers Care Switchgear Repairer Name Role Phone Unavailable Primary Care Provider Unavailabl e Social History Tobacco UseTypesPacks/DayYears UsedDateSmoking Tobacco: Never Assessed CommentsUnknownSex and Gender InformationValueDate RecordedSex Assigned at Not on fileLegal HtmWznltn47/15/2023 8:22 PM EDTGender IdentityNot on fileSexual OrientationNot on file Last Filed Vital Signs Vital SignReadingTime TakenCommentsBlood Aqypancf117/70009/02/2022 12:00 PM EST Pulse--Temperature--Respiratory Rate--Oxygen Saturation--Inhaled Oxygen Concentration--Oeeqcm27.2 kg (190 lb)09/02/2022 12:00 PM KJPLfrufp788.5 cm (5' 2 )09/02/2022 12:00 PM ESTBody Mass Index34.75009/02/2022 12:00 PM EST Plan of Treatment Not on file
--- OUTSIDE RECORDS SUMMARY | 2025-07-05 08:48 | XMS_ITS | Encounter Summary ---
Author Organization [facility] Address [address] [place] [address] Care Team Providers Care Leach Runner Name Role Phone Xavi Ann MD Primary Care Provider [phone] Encounter Details DateTypeDepartmentCare Team (Latest Contact Info)Oxssxzzxbva17/03/2025Orders Only [facility] [address] [place] [address] Xiao Torres MD [address] [place] [address] Social History Tobacco UseTypesPacks/DayYears UsedDateSmoking Tobacco: FormerCigarettes Smokeless Tobacco: NeverAlcohol UseStandard Drinks/WeekCommentsYes0 (1 standard drink = 0.6 oz pure alcohol)occasionalUT Safety & EnvironmentAnswerDate Recorded Fear of Current or Ex-PartnerNot on file09/09/2023Emotionally AbusedNot on file 09/09/2023hysically AbusedNot on file09/09/2023Sexually AbusedNot on file 4Physically or Sexually AbusedNot on file09/09/2023CommentsNo Sex and Gender InformationValueDate RecordedSex Assigned at BirthFemale 03/15/2025 11:48 AM EDTLegal ZocNmlals58/29/2022 10:34 PM EDTGender Identity Jquxhf1003/15/2025 11:48 AM EDTSexual OrientationHeterosexual or Straight 03/15/2025 11:48 AM EDTdocumented as of this encounter Plan of Treatment Not on file documented as of this encounter Procedures Procedure NamePriorityDate/TimeAssociated DiagnosisCommentsCARDIAC DEVICE CHECK - REMOTE - LOOP RECORDER (ILR)Klpdlqj2806/20/2025 12:00 AM ESTdocumented in this encounter Results * Cardiac device check - Remote loop recorder (ILR) (06/20/2025 12:00 AM EST) Anatomical RegionLateralityModalityOtherSpecimen (Source)Anatomical Location / LateralityCollection Method / VolumeCollection TimeReceived Time06/20/2025 Narrative Authorizing ProviderResult TypeResult StatusSalinnea Torres [facility] [place] IMPLANTABLE CARDIAC DEVICE PROCEDURESFinal Result documented in this encounter Visit Diagnoses Not on filedocumented in this encounter Care Teams Team MemberRelationshipSpecialtyStart DateEnd Xavi Ann MD [address] [facility] [place] [address] PCP - General08/11/22documented as of this encounter
[2025-07-05 09:09] LABS: Hematocrit 37.0 % (36.0-48.0); Hemoglobin 11.7 g/dL (12.0-16.0); Immature Granulocytes Abs Auto 0.01 10^3/uL (0.00-0.03); Immature Granulocytes Pct Auto 0.2 % (0.0-0.5); Lymphocytes Absolute Auto 2.0 10^3/uL (1.2-3.8); Mean Corpuscular HGB Conc 31.6 g/dL (29.9-35.2); Mean Corpuscular Hemoglobin 29.3 pg (26.7-34.0); Mean Corpuscular Volume 92.7 fL (81.0-99.0); Platelet Count 291 10^3/uL (150-450); Red Blood Count 3.99 10^6/uL (4.20-5.40); White Blood Count 6.3 10^3/uL (4.0-11.0)
[2025-07-05 10:50] LABS: Iron 66.0 ug/dL (50.0-170.0)
[2025-07-05 11:04] LABS: Alanine Aminotransferase 25 U/L (14-59); Albumin Globulin Ratio 0.9; Albumin Level 3.5 g/dL (3.4-5.0); Alkaline Phosphatase 122 U/L (46-116); Anion Gap 4.9; Aspartate Amino Transferase 21 U/L (15-37); Blood Urea Nitrogen 17.0 mg/dL (7.0-18.0); Calcium 9.2 mg/dL (8.5-10.1); Carbon Dioxide 27.8 mmol/L (21.0-32.0); Chloride 108 mmol/L (98-107); Cholesterol 133 mg/dL (<=200); Estimated GFR (African America >60 (>=60 mL/min/1.73m^2); Estimated GFR (Non-African Ame 51 (>=60 mL/min/1.73m^2); Free T3 2.01 pg/mL (2.18-3.98); Globulin 4.0 g/dL; Glucose 98 mg/dL (74-106); HDL Cholesterol 47 mg/dL (40-60); Potassium 4.7 mmol/L (3.5-5.1); Sodium 136 mmol/L (136-145); Thyroid Stimulating Hormone 0.445 uIU/mL (0.358-3.740); Total Protein 7.5 g/dL (6.4-8.2); Triglycerides 119 mg/dL (<=150); Uric Acid 7.3 mg/dL (2.6-6.0); VLDL CHOLESTEROL 23.8 mg/dL
[2025-07-06 19:08] LABS: Antinuclear Antibodies, IFA Positive (.)
== END 2025-07-05 08:44 | disposition home or self-care (01) ==
LOC: LAB 08:45
PROVIDERS: PCP Family Medicine; Visit Provider Family Medicine
DX: K57.30 Diverticulosis of large intestine without perforation or abscess without bleeding (principal); I10 Essential (primary) hypertension; M25.50 Pain in unspecified joint
CPT/HCPCS: 36415; 80053; 80061; 82306; 83036; 83525; 83540; 84436; 84443; 84481; 84550; 85025; 86038; 86060; 86140; 86431